=== PATIENT | female | born 1940 | race Caucasian/White ===

== ENCOUNTER → 2016-05-13 | Outpatient (CLI) | payer BC ==
[~2016-05-13] MED LIST: ALEN1TAB21 PO; AMLO-110 PO; AMLO-114 PO; ATEN-173 PO; ATEN25TA PO; ATEN50TA PO; ATEN50TA8 PO; CALC-342 PO; CHOL1TAB63 PO; CMD/25 PO; CMD5 PO; CYAN1CAP3 PO; DOCU1TAB6 PO; FSM35 PO; GEMF600T3 PO; GLC5 PO; HYDR25TA5 PO; ISOS30TA35 PO; JNV25 PO; LDDP5 TD; LOSA1TAB PO; MRLP17 PO; MULT-506 PO; NTRGSL/4 UT; OXYC-57 PO; PSYL48.59 PO; SIMV20TA2 PO; SULF800T23 PO; SYMIN160 INH; TNR50 PO; TRAMTAB5 PO; TRIM100T20 PO; WARF-246 PO; ZOLP5TAB6 PO
[2016-05-13 12:45] LABS: ESTIMATED AVERAGE GLUCOSE 131 mg/dl; HA1C FLAG Normal (Normal)
== END | disposition home or self-care (01) ==
LOC: C.LABBFT 08:42
PROVIDERS: ATTEND Internal Medicine
DX: E11.9 Type 2 diabetes mellitus without complications (principal)

== ENCOUNTER → 2016-05-22 | Outpatient (CLI) | payer BC ==
--- NOTE | 2016-05-22 15:48 | DIAGNOSTIC IMAGING REPORT ---
CHEST 2 VIEWS ROUTINE CLINICAL HISTORY: R06.02 Shortness of [id number] dyspnea COMPARISON STUDY: 08/27/2013 FINDINGS: Mild cardiomegaly. Lungs are clear. Diaphragms smooth. Minimal chronic pleural reactive changes left base. IMPRESSION: Mild stable cardiomegaly. Electronically signed by: Gumaro Medina M.D. 05/22/2016 3:47 PM Dictated Date/Time: 05/22/2016 3:45 PM
[2016-05-22 16:47] LABS: BASO % 0.6 %; BASO ABS # 0.05 K/uL (0-0.2); COMPLETE YES; EOS % 5.4 %; HEMATOCRIT 34.5 % (37-47); LYMPH % 15.8 %; LYMPH ABS # 1.36 K/uL (1.2-3.4); MEAN CELL VOLUME 86.3 fL (80-100); MEAN CORPUSCULAR HGB CONC 34.8 g/dl (32-36); MEAN PLATELET VOLUME 10.3 fL (7.4-10.4); MONO % 12.4 %; NEUT % 64.8 %; PLATELET COUNT 306 K/uL (130-400); WHITE BLOOD COUNT 8.63 K/uL (4.8-10.8)
[2016-05-22 17:05] LABS: ALT/SGPT 12 U/L (12-78); BLOOD UREA NITROGEN 34 mg/dl (7-18); CALCIUM 9.8 mg/dl (8.5-10.1); CARBON DIOXIDE 25 mmol/L (21-32); CHLORIDE 99 mmol/L (98-107); GLUCOSE 94 mg/dl (70-99); POTASSIUM 4.1 mmol/L (3.5-5.1); SODIUM 136 mmol/L (136-145)
[2016-05-22 17:15] LABS: ALB/GLOB RATIO 0.7 (0.9-2); ALKALINE PHOSPHATASE 65 U/L (45-117); AST/SGOT 14 U/L (15-37); THYROID STIMULATING HORMONE 0.551 uIu/ml (0.300-4.500)
== END | disposition home or self-care (01) ==
LOC: C.RAD1850 15:19
PROVIDERS: ATTEND Internal Medicine
DX: R06.02 Shortness of breath (principal); I51.7 Cardiomegaly

== ENCOUNTER 2016-05-30 10:16 | Inpatient (IN) | payer BC, OTHER ==
[~2016-05-30] VITALS: Ht 167.6 cm; Wt 88.5 kg
[~2016-05-30 10:16] MED LIST changes: -ALEN1TAB21 PO; -AMLO-114 PO; -ATEN-173 PO; -ATEN25TA PO; -ATEN50TA PO; -ATEN50TA8 PO; -CHOL1TAB63 PO; -CYAN1CAP3 PO; -DOCU1TAB6 PO; -JNV25 PO; -LDDP5 TD; -LOSA1TAB PO; -MRLP17 PO; -SULF800T23 PO; -SYMIN160 INH; -TRAMTAB5 PO; -TRIM100T20 PO; -WARF-246 PO
[2016-05-30] MEDS ORDERED: WARF-246 PO (10:40)
[2016-05-30] MEDS ORDERED: ALEN1TAB21 PO (10:40)
[2016-05-30 11:04] LABS: BASO % 0.5 %; BASO ABS # 0.04 K/uL (0-0.2); COMPLETE YES; EOS % 6.7 %; LYMPH % 21.7 %; LYMPH ABS # 1.87 K/uL (1.2-3.4); MEAN CELL VOLUME 85.5 fL (80-100); MEAN CORPUSCULAR HEMOGLOBIN 29.7 pg (25-34); MEAN CORPUSCULAR HGB CONC 34.7 g/dl (32-36); MEAN PLATELET VOLUME 9.8 fL (7.4-10.4); MONO % 9.2 %; NEUT % 60.9 %; PLATELET COUNT 331 K/uL (130-400); RED BLOOD COUNT 4.21 M/uL (4.2-5.4); WHITE BLOOD COUNT 8.62 K/uL (4.8-10.8)
[2016-05-30 11:15] LABS: ALT/SGPT 13 U/L (12-78); AST/SGOT 13 U/L (15-37); BLOOD UREA NITROGEN 28 mg/dl (7-18); BUN/CREATININE RATIO 17.6 (10-20); CALCIUM 9.3 mg/dl (8.5-10.1); CARBON DIOXIDE 24 mmol/L (21-32); CHLORIDE 100 mmol/L (98-107); GLUCOSE 98 mg/dl (70-99); POTASSIUM 4.1 mmol/L (3.5-5.1); SODIUM 134 mmol/L (136-145)
[2016-05-30 11:20] LABS: ALB/GLOB RATIO 0.6 (0.9-2); ALKALINE PHOSPHATASE 64 U/L (45-117); CKMB/CK RATIO 3.3 (0-3.0); INR 3.1 (0.9-1.1); PARTIAL THROMBOPLASTIN RATIO 2.3
--- NOTE | 2016-05-30 11:30 | DIAGNOSTIC IMAGING REPORT ---
CHEST ONE VIEW PORTABLE CLINICAL HISTORY: EVALUATE RESPIRATORY DISTRESS.DYSPNEA COMPARISON STUDY: 05/22/2016 FINDINGS: The cardiac and mediastinal contours are normal. There is no evidence of focal pulmonary consolidation. There is no evidence of failure. No pleural effusions are visualized.[ IMPRESSION: No active disease in the chest. Electronically signed by: Eric Gonzalez M.D. 05/30/2016 11:29 AM Dictated Date/Time: 05/30/2016 11:28 AM
[2016-05-30 11:58] LABS: MANUAL MICROSCOPIC REQUIRED? NO; REVIEW REQ? NO; URINE APPEARANCE CLEAR (CLEAR); URINE BILIRUBIN NEG (NEG); URINE COLOR YELLOW; URINE EPITHELIAL CELL AUTO >30 /lpf (0-5); URINE NITRITE NEG (NEG); URINE SPECIFIC GRAVITY 1.011 (1.000-1.030); UROBILINOGEN NEG (NEG)
[2016-05-30] MEDS ORDERED: FUROSEMIDE INJ 40 MG in SYRINGE 0 ML IV STA (15:03)
[2016-05-30] MEDS ORDERED: ACETAMINOPHEN 325 MG TAB PO PRN (15:15)
[2016-05-30] MEDS ORDERED: NITROGLYCERIN 0.4 MG SL PER TAB CHARGE SL PRN (15:15)
[2016-05-30] MEDS ORDERED: OXYCODONE/ACETAMINOPHEN 5-325 TAB PO PRN (15:15)
[2016-05-30] MEDS ORDERED: ONDANSETRON INJ 2 MG/ML 2 ML VIAL IV PRN (15:15)
[2016-05-30] MEDS ORDERED: NITROGLYCERIN 0.4 MG SL PER TAB CHARGE UT SCH (15:15)
[2016-05-30] MEDS ORDERED: ZOLPIDEM TARTRATE 5 MG TAB PO PRN (15:15)
[2016-05-30] MEDS ORDERED: GLUCOSE 10 TABS/TUBE PO PRN (15:15)
[2016-05-30] MEDS ORDERED: GLUCAGON FOR INJ 1 MG VIAL SQ PRN (15:15)
[2016-05-30] MEDS ORDERED: POLYETHYLENE (MIRALAX) 17 GM PACK PO PRN (15:15)
[2016-05-30] MEDS ORDERED: DEXTROSE 50% 50 ML SYR IV PRN (15:15)
[2016-05-30] MEDS ORDERED: GLUCOSE 40% GEL 15 GM TUBE PO PRN (15:15)
[2016-05-30] MEDS ORDERED: FUROSEMIDE 40 MG/4 ML VIAL IV STA (15:42)
--- NOTE | 2016-05-30 15:49 | History and Physical ---
History & Physical Date & Time of Service: May 30, 2016 at 15:17 Chief Complaint: Extreme Sob Primary Care Physician: Dagoberto Headley M.D. History of Present Illness Source: patient, family This is a 76 yo F with PMHx of atrial fibrillation on coumadin, HTN, hyperlipidemia, CAD, hypotension, lower back pain, lumbar disk herniation, who presents with worsening shortness of breath for the past 3-4 days. Her son is present at bedside. Pt reports she has been dyspneic for the past few months with ADLs and has been seen by her drapery counselor, Dr. Marcos for this complaint as outpt. She was recently seen Dr. Marcos on 05/22/16- there she was recommended to wear a Holter monitor for 2 weeks, but reports it had just shipped to her house and has not put it on yet. Pt admits that today has felt her heart racing on exertion and had some nausea with exertion where she needs to sit back down. Reports chronically sleeping with two pillows to elevate her when she sleeps, but that she has felt more short of breath with this in past 3-4 days as well. Pt denies wearing supplemental oxygen. Normally functions independently without walking assistance, lives alone, with minimal support needed from family. She also denies chest pain, pressure, tightness, cough, respiratory illness, sick contacts, lung problems such as asthma or COPD. She has not taken her daily medications yet today. In the ED pt has had BPs ranging from 160-170s, and while at beside reaches SBP =204. She is in afib, HR in low 90s. Trop-I is negative. EXW=[id number]. CBC is WNL. CXR completed without pleural effusions or consolidations. Past Medical/Surgical History Medical Problems: (1) CAD (coronary artery disease) Status: Chronic (2) DM (diabetes mellitus) Status: Chronic (3) DM (diabetes mellitus) Status: Chronic (4) HTN (hypertension) Status: Chronic (5) HTN (hypertension) Status: Chronic (6) HTN (hypertension) Status: Chronic (7) Hyperlipidemia Status: Chronic (8) Hypertension Status: Chronic (9) Intractable back pain Status: Resolved (10) Intractable back pain Status: Resolved (11) UTI (urinary tract infection) Status: Resolved Family History Cancer FH: pneumonia Heart disease Social History Smoking Status: Never Smoker Smokeless Tobacco Use: No Alcohol Use: none Drug Use: none Marital Status: Housing status: lives alone Occupational Status: retired Immunizations History of Influenza Vaccine: Yes History of Tetanus Vaccine?: Yes History of Pneumococcal: Yes Pneumococcal Date: Dec 20, 2009 History of Hepatitis B Vaccine: Unknown Multi-Drug Resistant Organisms History of MDRO: No Allergies Coded Allergies: Chlorthalidone (Verified Allergy, Unknown, UNK, 10/16/13) Penicillins (Verified Allergy, Unknown, 08/26/12) Home Medications Scheduled Alendronate Sodium (Alendronate Sodium), 1 TAB PO WK Amlodipine (Norvasc), 5 MG PO DAILY Atenolol (Atenolol), 50 MG PO BID Calcium Carbonate-Vitamin D (Calcium 600+D), 1 TAB PO BID Gemfibrozil (Lopid), 600 MG PO BID Glipizide (Glipizide), 5 MG PO BID Hydrochlorothiazide (Hydrochlorothiazide), 25 MG PO DAILY Isosorbide Mononitrate Ext Rel (Imdur Ext Rel), 90 MG PO DAILY Multivitamin (Multivitamin), 1 TAB PO DAILY Nitroglycerin (Nitrostat), 0.4 MG UT PRN Psyllium (Metamucil), 1 DOSE PO HS Simvastatin (Zocor), 20 MG PO HS Warfarin Sod (Coumadin), 2.5 MG PO 4XWK Warfarin Sodium (Warfarin Sodium), 5 MG PO MWF Zolpidem Tartrate (Zolpidem Tartrate), 5 MG PO HS Scheduled PRN Oxycodone/Acetaminophen 5MG/325MG (Percocet 5MG/325MG), 1-2 TAB PO Q4H PRN for Pain Review of Systems Constitutional: No chills, No fever, No sweats Eyes: No problem reported ENT: No problem reported Respiratory: + dyspnea on exertion, + shortness of breath, No cough, No dyspnea at rest, No hemoptysis, No sputum, No wheezing Cardiovascular: No chest pain, No palpitations Abdomen: + nausea, No constipation, No diarrhea, No pain Musculoskeletal: No calf pain, No joint pain, No swelling Genitourinary - Female: No dysuria Neurologic: + balance problems (in past 3-4 days), No numbness/tingling, No weakness Psychiatric: No depression symptoms Endocrine: + fatigue Integumentary: No itch, No rash Allergic / Immunologic: No environmental allergies, No seasonal allergies Physical Exam Vital Signs Date Time Temp Pulse Resp B/P Pulse Ox O2 Delivery O2 Flow Rate FiO2 05/30/16 14:32 81 18 170/72 93 Room Air 05/30/16 14:19 93 20 172/71 93 Room Air 05/30/16 13:06 92 22 169/83 93 Room Air 05/30/16 13:05 90 Room Air 05/30/16 13:05 22 94 Room Air 05/30/16 12:10 88 18 161/71 96 Room Air 05/30/16 11:51 96 05/30/16 11:24 88 20 160/89 94 Room Air 05/30/16 10:56 96 Room Air 05/30/16 10:38 96 Room Air 05/30/16 10:18 37.0 97 18 150/88 96 Room Air General Appearance: WD/WN, no apparent distress, + obese Head: normocephalic, atraumatic Eyes: PERRL, EOMI ENT: hearing grossly normal, pharynx normal, + pertinent finding (MMM) Neck: supple, no JVD Respiratory/Chest: chest non-tender, no respiratory distress, no accessory muscle use, + pertinent finding (+ crackles in bilateral bases. On room air with sats= 93%. No wheezing or rhales. Good breath sounds in mid and upper sanchez.) Cardiovascular: no JVD, no murmur, + tachycardia (HR=mid 90s ), + irregularly irregular Abdomen/GI: normal bowel sounds, non tender Back: no CVA tenderness Extremities/Musculoskelatal: no calf tenderness, no pedal edema Neurologic/Psych: alert, normal mood/affect, oriented x 3 Skin: normal color, warm/dry Diagnostics Laboratory Results Results Past 24 Hours Test 05/30/16 10:27 05/30/16 10:30 05/30/16 11:42 Range/Units Bedside Glucose 107 70-90 mg/dl White Blood Count 8.62 4.8-10.8 K/uL Red Blood Count 4.21 4.2-5.4 M/uL Hemoglobin 12.5 12.0-16.0 g/dL Hematocrit 36.0 37-47 % Mean Corpuscular Volume 85.5 80-100 fL Mean Corpuscular Hemoglobin 29.7 25-34 pg Mean Corpuscular Hemoglobin Concent 34.7 32-36 g/dl Platelet Count 331 130-400 K/uL Mean Platelet Volume 9.8 7.4-10.4 fL Neutrophils (%) (Auto) 60.9 % Lymphocytes (%) (Auto) 21.7 % Monocytes (%) (Auto) 9.2 % Eosinophils (%) (Auto) 6.7 % Basophils (%) (Auto) 0.5 % Neutrophils # (Auto) 5.25 1.4-6.5 K/uL Lymphocytes # (Auto) 1.87 1.2-3.4 K/uL Monocytes # (Auto) 0.79 0.11-0.59 K/uL Eosinophils # (Auto) 0.58 0-0.5 K/uL Basophils # (Auto) 0.04 0-0.2 K/uL RDW Standard Deviation 42.0 36.4-46.3 fL RDW Coefficient of Variation 13.5 11.5-14.5 % Immature Granulocyte % (Auto) 1.0 % Immature Granulocyte # (Auto) 0.09 0.00-0.02 K/uL Prothrombin Time 35.0 9.0-12.0 SECONDS Prothromb Time International Ratio 3.1 0.9-1.1 Activated Partial Thromboplast Time 59.7 21.0-31.0 SECONDS Partial Thromboplastin Ratio 2.3 Sodium Level 134 136-145 mmol/L Potassium Level 4.1 3.5-5.1 mmol/L Chloride Level 100 98-107 mmol/L Carbon Dioxide Level 24 21-32 mmol/L Anion Gap 10.0 3-11 mmol/L Blood Urea Nitrogen 28 7-18 mg/dl Creatinine 1.60 0.60-1.20 mg/dl Est Creatinine Clear Calc Drug Dose 33.0 ml/min Estimated GFR () 35.4 Estimated GFR (Non- 30.5 BUN/Creatinine Ratio 17.6 10-20 Random Glucose 98 70-99 mg/dl Calcium Level 9.3 8.5-10.1 mg/dl Total Bilirubin 0.5 0.2-1 mg/dl Aspartate Amino Transf (AST/SGOT) 13 15-37 U/L Alanine Aminotransferase (ALT/SGPT) 13 12-78 U/L Alkaline Phosphatase 64 45-117 U/L Total Creatine Kinase 33 26-192 U/L Creatine Kinase MB 1.1 0.5-3.6 ng/ml Creatine Kinase MB Ratio 3.3 0-3.0 Troponin I < 0.015 0-0.045 ng/ml Pro-B-Type Natriuretic Peptide 4489 0-1800 pg/ml Total Protein 7.8 6.4-8.2 gm/dl Albumin 3.0 3.4-5.0 gm/dl Globulin 4.8 2.5-4.0 gm/dl Albumin/Globulin Ratio 0.6 0.9-2 Urine Color YELLOW Urine Appearance CLEAR CLEAR Urine pH 6.0 4.5-7.5 Urine Specific [place] 1.011 1.000-1.030 Urine Protein 1+ NEG Urine Glucose (UA) NEG NEG Urine Ketones NEG NEG Urine Occult Blood TRACE NEG Urine Nitrite NEG NEG Urine Bilirubin NEG NEG Urine Urobilinogen NEG NEG Urine Leukocyte Esterase MODERATE NEG Urine WBC (Auto) 5-10 0-5 /hpf Urine RBC (Auto) 5-10 0-4 /hpf Urine Hyaline Casts (Auto) 0 0-5 /lpf Urine Epithelial Cells (Auto) >30 0-5 /lpf Urine Bacteria (Auto) NEG NEG Diagnostic Radiology CHEST ONE VIEW PORTABLE CLINICAL HISTORY: EVALUATE RESPIRATORY DISTRESS.DYSPNEA COMPARISON STUDY: 05/22/2016 FINDINGS: The cardiac and mediastinal contours are normal. There is no evidence of focal pulmonary consolidation. There is no evidence of failure. No pleural effusions are visualized.[ IMPRESSION: No active disease in the chest. Electronically signed by: Eric Gonzalez M.D. 05/30/2016 11:29 AM Dictated Date/Time: 05/30/2016 11:28 AM The status of this report is Signed. CXR normal EKG Vent. rate 84 BPM UT interval * ms QRS duration 106 ms QT/QTc 364/430 ms P-R-T axes * -46 95 Atrial fibrillation, HR=84, non specific T wave abnormality in anterolateral leads. Impression Assessment and Plan 76 yo F with PMHx of atrial fibrillation on coumadin, HTN, hyperlipidemia, CAD, hypotension, lower back pain, lumbar disk herniation, who presents with worsening shortness of breath for the past 3-4 days. Shortness of breath R/o new onset CHF - Admit to tele - BNP elevated at 4489, initial troponin neg - CXR without signs of pleural effusions although + crackles in bilateral bases on exam - Will administer lasix 40 mg once now - Echo and dopplers BLE to r/o DVT with hx of afib ordered - Cardiology consulted - Dr. Hemant silva's the pt as an outpatient- at last visit on was ordering a holter monitor x 2 week for the pt. Was considering tachy-joe syndrome - Pt has not received daily antihypertensives today so will give now: Losartan 25 mg daily , Imdur 30 mg daily - Hold HCTZ while diuresing with lasix (normally takes 25 mg daily) - Will need PT/OT consults tomorrow - Outpatient records indicate asthma and COPD although pt is unaware of these diagnoses - she has never had formal PFTs performed to her knowledge. She is using symbicort daily. Afib, chronic - Continue anticoagulation with coumadin 5 mg -- and 2.5 mg Q-Yt-Bsw-Fri - INR therapeutic at 3.1, follow coags - ?Holter monitor per cardiology as above DM II - Hold glipizide 5 mg BID for now - ISS with accuchecks ACHS Hyperlipidemia - Cont simvastatin 20 mg daily CKD stage III - Cr. 1.6 and is at baseline, follow with PRP daily Hypothyroidism - Noted in outpatient notes but not on any medication - Checking TSH DVT ppx: coumadin, SCDs CODE STATUS: FULL CODE Level of Care Telemetry Advanced Directives Existing Advance Directive: No Existing Living Will: No Existing Power of Pattern Hanger: No Existing Health Care Proxy: No Resuscitation Status FULL RESUSCITATION VTE Prophylaxis VTE Risk Assessment Done? Y/N: Yes Risk Level: Very Low Given or contraindicated: Other Anticoagulation, SCD's Reviewed: Pt Seen/Exam by Me, RN Notes, HO Notes, Prior Records, Labs, RAD History I agree with PA H&P with some modifications as below 76 yo F with PMHx of atrial fibrillation on coumadin, HTN, hyperlipidemia, CAD, hypotension, lower back pain, lumbar disk herniation, who presents with worsening shortness of breath for the past 3-4 days. Constitutional: denies: chills Respiratory: positive: short of breath, negative: cough Cardiovascular: denies chest pain Gastrointestinal/Abdominal: negative: abdominal pain Genitourinary: negative discharge Musculoskeletal: negative: back pain Neurological/Psych: negative: anxiety Hematologic/Lymphatic: negative: anemia General Appearance: WD/WN, no apparent distress Eye Exam: bilateral eye normal inspection Ears, Nose, Throat: hearing grossly normal Neck: non-tender Respiratory: chest non-tender, crackles Cardiovascular: normal peripheral pulses Gastrointestinal: normal bowel sounds Extremities: normal inspection Neurologic/Psychiatric: alert Skin Characteristics: normal color Assessment/Plan 76 yo F with PMHx of atrial fibrillation on coumadin, HTN, hyperlipidemia, CAD, hypotension, lower back pain, lumbar disk herniation, who presents with worsening shortness of breath for the past 3-4 days. Shortness of breath R/o new onset CHF tele BNP elevated at 4489, initial troponin neg IV lasix 40 mg once now check Echo and dopplers BLE to r/o DVT with hx of afib ordered Cardiology consulted - Dr. Hemant silva's the pt as an outpatient- at last visit on was ordering a holter monitor x 2 week for the pt. Was considering tachy-joe syndrome HTN restart Losartan 25 mg daily , Imdur 30 mg daily Hold HCTZ while diuresing with lasix (normally takes 25 mg daily) Will need PT/OT consults tomorrow Outpatient records indicate asthma and COPD although pt is unaware of these diagnoses - she has never had formal PFTs performed to her knowledge. She is using symbicort daily. Afib, chronic Continue anticoagulation with coumadin 5 mg - and 2.5 mg W-Ez-Onn-Sun INR therapeutic at 3.1, follow coags DM II Hold glipizide 5 mg BID for now ISS with accuchecks ACHS Hyperlipidemia Cont simvastatin 20 mg daily CKD stage III Cr. 1.6 and is at baseline, follow with PRP daily Hypothyroidism Noted in outpatient notes but not on any medication Checking TSH DVT proph: coumadin, SCDs CODE STATUS: FULL CODE time spent 50 min case discussed with [place] Gonzalez
[2016-05-30] MEDS: INSULIN ASPART 100 UNITS/ML 3 ML PEN SC SCH ×2 (16:30→20:56)
--- NOTE | 2016-05-30 16:37 | EMERGENCY ROOM VISIT NOTE ---
History Report prepared by Diego: Sharmaine Bello Under the Supervision of: Dr. Patrick Brooks M.D. First contact with patient: 10:53 Chief Complaint: SHORTNESS OF BREATH Stated Complaint: EXTREME SOB Nursing Triage Summary: pt reports sob this am .has been under eval for pacer. History of Present Illness The patient is a 76 year old female who presents to the Emergency Room with complaints of severe and worsening shortness of breath starting about a week and a half ago. She has worsening symptoms with lying down flat and with even a small amount of exertion. She has symptom relief with resting. Last night, the patient had some back pain. She currently denies any back pain. She reports a loss of appetite. Pt denies recent weight gain, LOC, headache, fevers, chills, diaphoresis, visual changes, neck pain, chest pain, nausea, vomiting, abdominal pain, melena, hematochezia, urinary symptoms, numbness, weakness, lymphadenopathy, rash, or other complaints. The patient has a history of A Fib. Source of History: patient Onset: about a week and a half ago Position: other (global) Symptom Intensity: severe Quality: other (shortness of breath) Timing: worsening Modifying Factors (Worsening): exertion, other (lying down flat) Modifying Factors (Relieving): rest Review of Systems See HPI for pertinent positives and negatives. A total of ten systems were reviewed and were otherwise negative. Past Medical & Surgical Medical Problems: (1) CAD (coronary artery disease) (2) DM (diabetes mellitus) (3) DM (diabetes mellitus) (4) HTN (hypertension) (5) HTN (hypertension) (6) HTN (hypertension) (7) Hyperlipidemia (8) Hypertension (9) Intractable back pain (10) Intractable back pain (11) Shortness of breath (12) UTI (urinary tract infection) Family History Cancer FH: pneumonia Heart disease Social History Smoking Status: Never Smoker Marital Status: Occupation Status: retired Current/Historical Medications Scheduled Alendronate Sodium (Alendronate Sodium), 1 TAB PO WK Amlodipine (Norvasc), 5 MG PO DAILY Atenolol (Atenolol), 50 MG PO BID Calcium Carbonate-Vitamin D (Calcium 600+D), 1 TAB PO BID Gemfibrozil (Lopid), 600 MG PO BID Glipizide (Glipizide), 5 MG PO BID Hydrochlorothiazide (Hydrochlorothiazide), 25 MG PO DAILY Isosorbide Mononitrate Ext Rel (Imdur Ext Rel), 90 MG PO DAILY Multivitamin (Multivitamin), 1 TAB PO DAILY Nitroglycerin (Nitrostat), 0.4 MG UT PRN Psyllium (Metamucil), 1 DOSE PO HS Simvastatin (Zocor), 20 MG PO HS Warfarin Sod (Coumadin), 2.5 MG PO 4XWK Warfarin Sodium (Warfarin Sodium), 5 MG PO MWF Zolpidem Tartrate (Zolpidem Tartrate), 5 MG PO HS Scheduled PRN Oxycodone/Acetaminophen 5MG/325MG (Percocet 5MG/325MG), 1-2 TAB PO Q4H PRN for Pain Allergies Coded Allergies: Chlorthalidone (Verified Allergy, Unknown, UNK, 10/16/13) Penicillins (Verified Allergy, Unknown, 08/26/12) Physical Exam Vital Signs Date Time Temp Pulse Resp B/P Pulse Ox O2 Delivery O2 Flow Rate FiO2 05/30/16 14:32 81 18 170/72 93 Room Air 05/30/16 14:19 93 20 172/71 93 Room Air 05/30/16 13:06 92 22 169/83 93 Room Air 05/30/16 13:05 90 Room Air 05/30/16 13:05 22 94 Room Air 05/30/16 12:10 88 18 161/71 96 Room Air 05/30/16 11:51 96 05/30/16 11:24 88 20 160/89 94 Room Air 05/30/16 10:56 96 Room Air 05/30/16 10:38 96 Room Air 05/30/16 10:18 37.0 97 18 150/88 96 Room Air Physical Exam GENERAL: Awake, alert, tired-appearing, in no distress HENT: Normocephalic, atraumatic. Oropharynx unremarkable. EYES: Normal conjunctiva. Sclera non-icteric. NECK: Supple. No nuchal rigidity. FROM. No JVD. RESPIRATORY: Clear to auscultation. CARDIAC: Regular rate, normal rhythm. Extremities warm and well perfused. Pulses equal. ABDOMEN: Soft, non-distended. No tenderness to palpation. No rebound or guarding. No masses. RECTAL: Deferred. MUSCULOSKELETAL: Chest examination reveals no tenderness. The back is symmetrical on inspection without obvious abnormality. There is no CVA tenderness to palpation. No joint edema. LOWER EXTREMITIES: Calves are equal size bilaterally and non-tender. No edema. No discoloration. NEURO: Normal sensorium. No sensory or motor deficits noted. SKIN: No rash or jaundice noted. Medical Decision & Procedures ER Provider Diagnostic Interpretation: X ray results as stated below per my interpretation and radiologist interpretation. CHEST ONE VIEW PORTABLE CLINICAL HISTORY: EVALUATE RESPIRATORY DISTRESS.DYSPNEA COMPARISON STUDY: 05/22/2016 FINDINGS: The cardiac and mediastinal contours are normal. There is no evidence of focal pulmonary consolidation. There is no evidence of failure. No pleural effusions are visualized.[ IMPRESSION: No active disease in the chest. Electronically signed by: Eric Gonzalez M.D. 05/30/2016 11:29 AM Dictated Date/Time: 05/30/2016 11:28 AM Laboratory Results 05/30/16 10:30 Red Blood Count 4.21, Mean Corpuscular Volume 85.5, Mean Corpuscular Hemoglobin 29.7, Mean Corpuscular Hemoglobin Concent 34.7, Mean Platelet Volume 9.8, Neutrophils (%) (Auto) 60.9, Lymphocytes (%) (Auto) 21.7, Monocytes (%) (Auto) 9.2, Eosinophils (%) (Auto) 6.7, Basophils (%) (Auto) 0.5, Neutrophils # (Auto) 5.25, Lymphocytes # (Auto) 1.87, Monocytes # (Auto) 0.79, Eosinophils # (Auto) 0.58, Basophils # (Auto) 0.04 05/30/16 10:30 Test 05/30/16 10:27 05/30/16 10:30 05/30/16 11:42 Bedside Glucose 107 mg/dl (70-90) White Blood Count 8.62 K/uL (4.8-10.8) Red Blood Count 4.21 M/uL (4.2-5.4) Hemoglobin 12.5 g/dL (12.0-16.0) Hematocrit 36.0 % (37-47) Mean Corpuscular Volume 85.5 fL (80-100) Mean Corpuscular Hemoglobin 29.7 pg (25-34) Mean Corpuscular Hemoglobin Concent 34.7 g/dl (32-36) Platelet Count 331 K/uL (130-400) Mean Platelet Volume 9.8 fL (7.4-10.4) Neutrophils (%) (Auto) 60.9 % Lymphocytes (%) (Auto) 21.7 % Monocytes (%) (Auto) 9.2 % Eosinophils (%) (Auto) 6.7 % Basophils (%) (Auto) 0.5 % Neutrophils # (Auto) 5.25 K/uL (1.4-6.5) Lymphocytes # (Auto) 1.87 K/uL (1.2-3.4) Monocytes # (Auto) 0.79 K/uL (0.11-0.59) Eosinophils # (Auto) 0.58 K/uL (0-0.5) Basophils # (Auto) 0.04 K/uL (0-0.2) RDW Standard Deviation 42.0 fL (36.4-46.3) RDW Coefficient of Variation 13.5 % (11.5-14.5) Immature Granulocyte % (Auto) 1.0 % Immature Granulocyte # (Auto) 0.09 K/uL (0.00-0.02) Prothrombin Time 35.0 SECONDS (9.0-12.0) Prothromb Time International Ratio 3.1 (0.9-1.1) Activated Partial Thromboplast Time 59.7 SECONDS (21.0-31.0) Partial Thromboplastin Ratio 2.3 Anion Gap 10.0 mmol/L (3-11) Est Creatinine Clear Calc Drug Dose 33.0 ml/min Estimated GFR () 35.4 Estimated GFR (Non- 30.5 BUN/Creatinine Ratio 17.6 (10-20) Calcium Level 9.3 mg/dl (8.5-10.1) Total Bilirubin 0.5 mg/dl (0.2-1) Aspartate Amino Transf (AST/SGOT) 13 U/L (15-37) Alanine Aminotransferase (ALT/SGPT) 13 U/L (12-78) Alkaline Phosphatase 64 U/L (45-117) Total Creatine Kinase 33 U/L (26-192) Creatine Kinase MB 1.1 ng/ml (0.5-3.6) Creatine Kinase MB Ratio 3.3 (0-3.0) Troponin I < 0.015 ng/ml (0-0.045) Pro-B-Type Natriuretic Peptide 4489 pg/ml (0-1800) Total Protein 7.8 gm/dl (6.4-8.2) Albumin 3.0 gm/dl (3.4-5.0) Globulin 4.8 gm/dl (2.5-4.0) Albumin/Globulin Ratio 0.6 (0.9-2) Thyroid Stimulating Hormone (TSH) 0.413 uIu/ml (0.300-4.500) Urine Color YELLOW Urine Appearance CLEAR (CLEAR) Urine pH 6.0 (4.5-7.5) Urine Specific [place] 1.011 (1.000-1.030) Urine Protein 1+ (NEG) Urine Glucose (UA) NEG (NEG) Urine Ketones NEG (NEG) Urine Occult Blood TRACE (NEG) Urine Nitrite NEG (NEG) Urine Bilirubin NEG (NEG) Urine Urobilinogen NEG (NEG) Urine Leukocyte Esterase MODERATE (NEG) Urine WBC (Auto) 5-10 /hpf (0-5) Urine RBC (Auto) 5-10 /hpf (0-4) Urine Hyaline Casts (Auto) 0 /lpf (0-5) Urine Epithelial Cells (Auto) >30 /lpf (0-5) Urine Bacteria (Auto) NEG (NEG) Laboratory results reviewed by me ECG Indication: SOB/dyspnea Rate (beats per minute): 84 Rhythm: atrial fibrillation Findings: nonspecific-ST abn, other (left anterior fascicular block; septal infarct) Comparison ECG Date: October 16, 2013 Change: no significant change ED Course 1053: The patient was evaluated in room B07. A complete history and physical exam was performed. 1259: I reevaluated the patient who is tired but feeling better. 1415: Upon reexamination, the patient was resting comfortably. I discussed the test results and treatment plan with her. The patient will be evaluated for further management. 1425: I discussed the patient's case with Dr. Melvin, from [facility]. Medical Decision Triage Nursing notes reviewed. The patient's presentation and history were concerning for dyspnea on exertion. Etiologies such as pneumonia, COPD, reactive airway disease, CHF, cardiac ischemia, pulmonary embolism, pneumothorax, musculoskeletal, infections, gastrointestinal, as well as others were entertained. The patient was evaluated. She had A. fib was rate controlled. She was tired. Her history was concerning for dyspnea with minimal exertion. The patient has no ischemic change on ECG. Blood work was performed. CBC was unremarkable. INR was therapeutic at 3.1. Urinalysis was unremarkable. The patient has no urinary symptoms. Creatinine was minimally elevated at 1.6. Cardiac markers were negative. BNP was markedly elevated concerning for CHF. Given this the patient underwent name Maite pulse ox. With minimal distance her saturation did decrease to 90%. She was symptomatic. The patient will need further evaluation and management in the hospital. I did discuss the case with internal medicine. The patient was evaluated for further treatment for new onset CHF. The chart was completed utilizing [employer] Speech voice recognition software. Grammatical errors, random word insertions, pronoun errors, and incomplete sentences are an occasional consequence of this system due to software limitations, ambient noise, and hardware issues. Any formal questions or concerns about the content, text, or information contained within the body of this dictation should be directly addressed to the physician for clarification. Consults Time Called: 1422 Consulting Physician: Dr. Melvin, from [facility] Returned Call: [phone] I discussed the patient's case with Dr. Melvin, from [facility]. Impression Primary Impression: Dyspnea on exertion Additional Impression: CHF (congestive heart failure) Scribe Attestation The scribe's documentation has been prepared under my direction and personally reviewed by me in its entirety. I confirm that the note above accurately reflects all work, treatment, procedures, and medical decision making performed by me. Departure Information Dispostion Being Evaluated By Hospitalist Referrals Dagoberto Headley M.D. (PCP) Patient Instructions [facility] Problem Qualifiers
[2016-05-30 17:28] VITALS: BP 169/85; PULSE 86; TEMP 36.8; O2SAT 93; BMI 32.6
[2016-05-30] MEDS: AMLODIPINE BESYLATE 5 MG TAB PO SCH (19:29)
[2016-05-30] MEDS: ISOSORBIDE MONONITRATE 30 MG TABCR PO SCH (19:30)
[2016-05-30 19:52] VITALS: BP 159/66; TEMP 37.7; O2SAT 97
[2016-05-30] MEDS: GEMFIBROZIL 600 MG TAB PO SCH (20:55)
[2016-05-30] MEDS ORDERED: SIMVASTATIN 20 MG TAB PO SCH (21:00)
--- NOTE | 2016-05-30 21:36 | DIAGNOSTIC IMAGING REPORT ---
ULTRASOUND BILATERAL LOWER EXTREMITY VENOUS CLINICAL HISTORY: Dyspnea. Clinical concern for deep venous thrombosis. COMPARISON STUDY: Bilateral lower extremity venous ultrasound dated 11/09/2014. TECHNIQUE: Real-time, grayscale, and color Doppler sonography of the deep veins of the right and left lower extremity was performed from the inguinal crease to the calf. Compression and augmentation were utilized. FINDINGS: There is no sonographic evidence of deep venous thrombosis identified in the right or left lower extremity. The common femoral, superficial femoral, and popliteal veins are patent and normally compressible bilaterally. The greater saphenous vein and the profunda femoris vein at the junction with the common femoral vein are clear in both legs. The visualized calf veins are patent bilaterally. IMPRESSION: There is no sonographic evidence of deep venous thrombosis identified in the right or left lower extremity. Electronically signed by: Dariusz Jensen M.D. 05/30/2016 9:35 PM Dictated Date/Time: 05/30/2016 9:35 PM
[2016-05-30 23:24] VITALS: BP 137/59; PULSE 68; TEMP 37.3; O2SAT 91
[2016-05-31 04:24] VITALS: BP 139/68; PULSE 55; TEMP 36.8; O2SAT 95
[2016-05-31 05:53] LABS: BASO % 0.5 %; BASO ABS # 0.04 K/uL (0-0.2); COMPLETE YES; HEMATOCRIT 34.5 % (37-47); IG% 1.2 %; LYMPH ABS # 1.66 K/uL (1.2-3.4); MEAN CELL VOLUME 87.6 fL (80-100); MEAN CORPUSCULAR HEMOGLOBIN 30.7 pg (25-34); MEAN CORPUSCULAR HGB CONC 35.1 g/dl (32-36); MEAN PLATELET VOLUME 9.8 fL (7.4-10.4); MONO % 9.4 %; NEUT % 58.9 %; PLATELET COUNT 312 K/uL (130-400); RED BLOOD COUNT 3.94 M/uL (4.2-5.4); WHITE BLOOD COUNT 7.54 K/uL (4.8-10.8)
[2016-05-31 06:10] LABS: INR 3.6 (0.9-1.1)
[2016-05-31 06:22] LABS: BUN/CREATININE RATIO 18.8 (10-20); CALCIUM 8.6 mg/dl (8.5-10.1); CREATININE 1.9 mg/dl (0.60-1.20); MAGNESIUM 2.3 mg/dl (1.8-2.4); POTASSIUM 4.2 mmol/L (3.5-5.1)
[2016-05-31 06:25] LABS: CHOLESTEROL/HDL RATIO 3.3; PHOSPHORUS 3.9 mg/dl (2.5-4.9)
[2016-05-31 07:34] VITALS: BP 162/58; PULSE 66; TEMP 36.7; O2SAT 99
[2016-05-31 08:10] VITALS: O2SAT 99
[2016-05-31] MEDS: INSULIN ASPART 100 UNITS/ML 3 ML PEN SC SCH ×2 (08:19→12:15)
[2016-05-31] MEDS ORDERED: MULTIVITAMIN TAB PO SCH (09:00)
[2016-05-31] MEDS: ISOSORBIDE MONONITRATE 30 MG TABCR PO SCH (09:06)
[2016-05-31] MEDS: GEMFIBROZIL 600 MG TAB PO SCH (09:06)
[2016-05-31] MEDS: AMLODIPINE BESYLATE 5 MG TAB PO SCH (09:07)
[2016-05-31] MEDS ORDERED: PERFLUTREN LIPID MICROSPHERE (DEFINITY) IV ONE (09:11)
[2016-05-31 11:20] VITALS: BP 129/68; PULSE 49; TEMP 36.7; O2SAT 95
--- NOTE | 2016-05-31 11:52 | Cardiology Consultation ---
Cardiology Consultation Date of Consultation: May 31, 2016. Requesting Physician: Em Gonzalez PA-C Attending Physician: Dr. Marcos Reason for Consultation: Shortness of breath, atrial fibrillation Pt evaluation today including: conversation w/ patient, conversation w/ family , physical exam, chart review, lab review, review of studies, review of inpatient medication list, conversation w/ attending History of Present Illness Mrs. Zhu is a 76-year-old female with a past medical history significant for permanent atrial fibrillation, coronary artery disease ([place] 1992), hypertension, hypercholesterolemia, type 2 diabetes mellitus, chronic kidney disease, and asthma who presented to the ED yesterday with complaints of increased shortness of breath. Her most recent cardiac history began when she was seen in clinic by Dr. Marcos on 02/19/2016. At that time she noted increased dyspnea on exertion. She was bradycardic on exam, and it was surmised that the dyspnea she was experiencing was secondary to chronotropic incompetence. Her atenolol dose was subsequently decreased from 50 mg twice daily to 50 mg daily. She was then seen in follow-up by myself on 03/11/2016. At that time, she noted an improvement in her fatigue as well as her exertional dyspnea, but she continued to experience exertional dyspnea. She continued to be bradycardic on exam. Her Atenolol was further decreased to 25 mg daily, and a 24 hour Holter monitor was ordered. The monitor showed atrial fibrillation with slow ventricular response and long pauses up to 4 seconds. She was instructed to discontinue the beta aman altogether, and a repeat Holter monitor in late March again showed atrial fibrillation with heart rates varying from 30 to 113 bpm. There were 13 pauses greater than 2 seconds with the longest pause 3.1 seconds in length. A stress echocardiogram was also performed in late March which was negative for myocardial ischemia at 82% MPHR. She was last seen in clinic by Dr. Marcos on 05/22/16, and at that time, she was ordered a long-term event monitor to hopefully correlate her exertional dyspnea with a bradycardic ventricular response. After the clinic visit with Dr. Marcos, the patient's exertional dyspnea continued to worsen. She began to feel short of breath with just walking across the room. She also noted shortness of breath with initially lying down, but she was then able to sleep throughout the night. She continued to sleep with 2 pillows. She did not have any lower extremity edema. When her symptoms, continued to worsen, she presented to the ED yesterday for further evaluation. ECG showed atrial fibrillation with a ventricular response rate of 84 bpm. No acute ischemic changes were noted. CXR showed no active disease in the chest. BNP was elevated at 2289. She was given one dose of Lasix 40 mg IV. Her creatinine was 1.60 initially and alicia to 1.90 upon recheck. Patient seen at bedside this morning. Her son accompanies her in the room. She reports that her breathing has improved since admission, but she does not feel as though her breathing is back to normal. She noted an episode of "fullness" in her chest last evening that radiated into her back. It occurred while lying in bed and lasted 30 minutes before self resolving. She denies any other chest discomfort. She notes dizziness at times where she feels as though the room is spinning. This occurs with fast head movements and she has associated nausea. She denies syncope or presyncope. She denies palpitations, abnormal bleeding, or cerebrovascular symptoms. Review of Systems: As noted in HPI. All other ROS otherwise negative. Family History Cancer FH: pneumonia Heart disease Noncontributory given her own disease. Social History Smoking Status: Former Smoker History of Alcohol Use: No Former smoker, quit in 1997. She smoked up to 1 ppd x20 years. She denies alcohol or drug use. Review of Systems Respiratory: + see HPI Cardiac: + see HPI Allergies Coded Allergies: Chlorthalidone (Verified Allergy, Unknown, UNK, 10/16/13) Penicillins (Verified Allergy, Unknown, 08/26/12) Medications Current Inpatient Medications Medications (Trade) Dose Ordered Sig/Tayler Route Start Time Stop Time Status Last Admin Dose Admin Acetaminophen (Tylenol Tab) 650 mg Q4H PRN PO 05/30/16 15:15 06/29/16 15:14 Ondansetron HCl (Zofran Inj) 4 mg Q6H PRN IV 05/30/16 15:15 06/29/16 15:14 Nitroglycerin (Nitrostat Tab) 0.4 mg UD PRN SL 05/30/16 15:15 06/29/16 15:14 Polyethylene (Miralax Powder Packet) 17 gm DAILY PRN PO 05/30/16 15:15 06/29/16 15:14 Amlodipine Besylate (Norvasc Tab) 5 mg DAILY PO 05/30/16 15:15 06/29/16 15:14 05/31/16 09:07 5 MG Atenolol (Tenormin Tab) 50 mg BID PO 05/30/16 15:15 06/29/16 15:14 05/31/16 09:06 50 MG Gemfibrozil (Lopid Tab) 600 mg BID PO 05/30/16 21:00 06/29/16 20:59 05/31/16 09:06 600 MG Isosorbide Mononitrate (Imdur Ext Rel Tab) 90 mg DAILY PO 05/30/16 15:15 06/29/16 15:14 05/31/16 09:06 90 MG Multivitamins (Multivitamin Tab) 1 tab DAILY PO 05/31/16 09:00 06/30/16 08:59 05/31/16 09:06 1 TAB Oxycodone/ Acetaminophen (Percocet 5-325mg Tab) 1 tab Q4H PRN PO 05/30/16 15:15 06/13/16 15:14 Simvastatin (Zocor Tab) 20 mg HS PO 05/30/16 21:00 06/29/16 20:59 05/30/16 20:55 20 MG Warfarin Sodium (Coumadin Tab) 2.5 mg SuTuThSa@1600 PO 06/01/16 16:00 07/01/16 15:59 Warfarin Sodium (Coumadin Tab) 5 mg MoWeFr@1600 PO 05/31/16 16:00 06/30/16 15:59 Zolpidem Tartrate (Ambien Tab) 5 mg HS PRN PO 05/30/16 15:15 06/29/16 15:14 Insulin Aspart (novoLOG ASPART) SLIDING SCALE If C... ACHS SC 05/30/16 16:00 06/29/16 15:59 Glucose (Glucose 40% Gel) 15-30 GRAMS 15 GRAMS... UD PRN PO 05/30/16 15:15 06/29/16 15:14 Glucose (Glucose Chew Tab) 4-8 Tablets 4 Tabl... UD PRN PO 05/30/16 15:15 06/29/16 15:14 Dextrose (Dextrose 50% 50ML Syringe) 25-50ML OF 50% DW IV FOR... UD PRN IV 05/30/16 15:15 06/29/16 15:14 Glucagon (Glucagon Inj) 1 mg UD PRN SQ 05/30/16 15:15 06/29/16 15:14 Physical Exam Vital Signs Past 12 Hours Date Time Temp Pulse Resp B/P Pulse Ox O2 Delivery O2 Flow Rate FiO2 05/31/16 11:20 36.7 49 18 129/68 95 Nasal Cannula 2.0 05/31/16 08:10 99 Nasal Cannula 2.0 05/31/16 07:34 36.7 66 16 162/58 99 Nasal Cannula 2.0 05/31/16 04:24 36.8 55 16 139/68 95 05/31/16 04:00 Nasal Cannula 2.0 05/31/16 00:00 Nasal Cannula 2.0 Constitutional: Alert, oriented, in no acute distress HEENT: Head is atraumatic and normocephalic. EOMs intact. Sclera anicteric. Face is symmetric. No perioral cyanosis. Mucous membranes moist. Neck: Supple, no JVD Pulmonary: Normal respiratory effort, clear to auscultation bilaterally Cardiac: Irregularly irregular, normal S1 and S2, no gallops, no rubs, 2/6 basal systolic ejection murmur with radiation to the carotids Extremities: Varicose veins of bilateral lower extremities. No clubbing, cyanosis, or edema. Pulses intact Abdomen: Obese. Normal bowel sounds, soft, non-tender, no abdominal mass palpated Skin: Normal skin color, turgor, and pigmentation, no rash, no skin lesions Neurological: Oriented to person, place, and time Data Laboratory Results: Last 24 Hours Test 05/30/16 11:42 05/30/16 16:47 05/30/16 20:09 05/31/16 05:30 Urine Color YELLOW Urine Appearance CLEAR Urine pH 6.0 Urine Specific [place] 1.011 Urine Protein 1+ Urine Glucose (UA) NEG Urine Ketones NEG Urine Occult Blood TRACE Urine Nitrite NEG Urine Bilirubin NEG Urine Urobilinogen NEG Urine Leukocyte Esterase MODERATE Urine WBC (Auto) 5-10 /hpf Urine RBC (Auto) 5-10 /hpf Urine Hyaline Casts (Auto) 0 /lpf Urine Epithelial Cells (Auto) >30 /lpf Urine Bacteria (Auto) NEG Bedside Glucose 117 mg/dl 133 mg/dl White Blood Count 7.54 K/uL Red Blood Count 3.94 M/uL Hemoglobin 12.1 g/dL Hematocrit 34.5 % Mean Corpuscular Volume 87.6 fL Mean Corpuscular Hemoglobin 30.7 pg Mean Corpuscular Hemoglobin Concent 35.1 g/dl Platelet Count 312 K/uL Mean Platelet Volume 9.8 fL Neutrophils (%) (Auto) 58.9 % Lymphocytes (%) (Auto) 22.0 % Monocytes (%) (Auto) 9.4 % Eosinophils (%) (Auto) 8.0 % Basophils (%) (Auto) 0.5 % Neutrophils # (Auto) 4.44 K/uL Lymphocytes # (Auto) 1.66 K/uL Monocytes # (Auto) 0.71 K/uL Eosinophils # (Auto) 0.60 K/uL Basophils # (Auto) 0.04 K/uL RDW Standard Deviation 43.3 fL RDW Coefficient of Variation 13.4 % Immature Granulocyte % (Auto) 1.2 % Immature Granulocyte # (Auto) 0.09 K/uL Prothrombin Time 41.0 SECONDS Prothromb Time International Ratio 3.6 Sodium Level 135 mmol/L Potassium Level 4.2 mmol/L Chloride Level 98 mmol/L Carbon Dioxide Level 27 mmol/L Anion Gap 10.0 mmol/L Blood Urea Nitrogen 36 mg/dl Creatinine 1.90 mg/dl Est Creatinine Clear Calc Drug Dose 27.3 ml/min Estimated GFR () 28.8 Estimated GFR (Non- 24.8 BUN/Creatinine Ratio 18.8 Random Glucose 124 mg/dl Calcium Level 8.6 mg/dl Phosphorus Level 3.9 mg/dl Magnesium Level 2.3 mg/dl Triglycerides Level 132 mg/dl Cholesterol Level 119 mg/dl HDL Cholesterol 36 mg/dl LDL Cholesterol, Calculated 57 mg/dl VLDL Cholesterol, Calculated 26 mg/dl Cholesterol/HDL Ratio 3.3 Test 05/31/16 07:40 Bedside Glucose 135 mg/dl CXR: No acute process. EKG: Atrial fibrillation with ventricular response rate of 84 bpm. Left anterior fascicular block. Septal infarct. Telemetry reviewed: Atrial fibrillation with rates primarily in the 40's and 50 's bpm. She does occasionally drop to the 30's at times. She has had up to 2 second pauses. 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 She notes an improvement in her breathing since admission, but she does not feel as though her breathing is back to normal. She appears euvolemic on examination currently. Telemetry monitoring crockett shown rates in the 40's and 50's, and it does drop down to the 30's at times. She has had pauses up to 2 seconds in duration this admission. Previous Holter monitors have shown pauses of 3.1 seconds in length. It is therefore suspected that her symptoms are secondary to chronotropic incompetence and that she would benefit most from pacemaker insertion. She will be scheduled for device insertion as an outpatient next week. Otherwise, she appears stable from a cardiovascular standpoint. Thank you for allowing us to see this patient in consultation. The patient was seen and discussed with Dr. Marcos, and the plan was made in collaboration with him.
[2016-05-31 12:00] VITALS: O2SAT 95
[2016-05-31 12:11] VITALS: Ht 167.6 cm; Wt 88.5 kg
--- NOTE | 2016-05-31 14:16 | ECHOCARDIOGRAM REPORT ---
*NOTICE TO RECEIVING DEMOCRAT AGENCY This information is strictly Confidential and protected under [place] law. [place] law prohibits you from making any further disclosure of this information unless further disclosure is expressly permitted by the written consent of the person to whom it pertains or is authorized by law. A general authorization for the release of medical or other information is not sufficient for this purpose. Hospital accepts no responsibility if the information is made available to any other person, INCLUDING THE PATIENT. Interpretation Summary * Name: SAMI RODGERS Study Date: 05/31/2016 08:01 AM BP: 162/58 mmHg * Patient Location: .[facility]\S\N285\S\2 HR: 66 * : 1940 (M/d/yyyy) Gender: Female Height: 66 in * Age: 76 yrs Ethnicity: [place] Weight: 201 lb * Ordering Physician: Nivia Gonzalez * Referring Physician: Self, Referred * Performed By: Merced Pete RDCS * * Reason For Study: CHF, SOB * BSA: 2.0 m2 * History: SOB, CHF * -- Conclusions -- * Left ventricular systolic function is normal. * No regional wall motion abnormalities noted. * Ejection Fraction = 55-60%. * The left atrium is severely dilated. * There is mild to moderate mitral regurgitation. Procedure Details * A contrast injection of Definity was performed to improve assessment of LV function. * Contrast was injected into an intravenous site in the left arm. * One vial of Definity ultrasound contrast was diluted in normal saline to a total volume of 10 ml. A total of '2' ml of solution was administered during imaging. * Lot # [id number] of Definity utilized for procedure. * Expiration date MAY 08. * The attending nurse who injected the contrast agent was PAULA BIGGS RN. Left Ventricle * The left ventricle is normal in size. * There is normal left ventricular wall thickness. * Ejection Fraction = 55-60%. * Left ventricular systolic function is normal. * No regional wall motion abnormalities noted. Right Ventricle * The right ventricle is grossly normal size. * The right ventricular systolic function is normal as assessed by tricuspid annular plane systolic excursion (TAPSE) (normal >1.5 cm). Atria * The left atrium is severely dilated. * Right atrium not well visualized. * There is no evidence of atrial septal defect, but resolution does not allow assessment for a patent foramen ovale. Mitral Valve * The mitral valve is normal in structure and function. * There is mild to moderate mitral regurgitation. Tricuspid Valve * The tricuspid valve is not well visualized, but is grossly normal. * There is mild tricuspid regurgitation. Aortic Valve * The aortic valve is trileaflet. * The aortic valve opens well. * Aortic valve sclerosis moderate, without significant aortic valvular stenosis. * No aortic regurgitation is present. Pulmonic Valve * The pulmonary valve is not well seen, but the Doppler examination is normal without significant regurgitation or stenosis. * Trace pulmonic valvular regurgitation. Great Vessels * The aortic root is normal size. Pericardium/Pleural * There is no pericardial effusion. Great Vessels * IVC not well seen. MMode 2D Measurements and Calculations IVSd 0.97 cm IVSs 1.3 cm LVIDd 5.1 cm LVIDs 3.7 cm LVPWd 1.3 cm LVPWs 1.7 cm IVS/LVPW 0.77 FS 26.7 % EDV(Teich) 122.5 ml ESV(Teich) 59.0 ml EF(Teich) 51.8 % EDV(cubed) 130.8 ml ESV(cubed) 51.6 ml EF(cubed) 60.5 % % IVS thick 37.8 % % LVPW thick 34.4 % LV mass(C)d 218.5 grams LV mass(C)dI 109.0 grams/m\S\2 LV mass(C)s 216.4 grams LV mass(C)sI 108.0 grams/m\S\2 SV(Teich) 63.5 ml SI(Teich) 31.7 ml/m\S\2 SV(cubed) 79.2 ml SI(cubed) 39.5 ml/m\S\2 Ao root diam 3.0 cm Ao root area 6.9 cm\S\2 LA dimension 7.4 cm LA/Ao 2.5 LVAd ap4 32.0 cm\S\2 LVLd ap4 8.0 cm EDV(MOD-sp4) 106.5 ml EDV(sp4-el) 108.4 ml LVAs ap4 20.4 cm\S\2 LVLs ap4 7.0 cm ESV(MOD-sp4) 50.5 ml ESV(sp4-el) 50.3 ml EF(MOD-sp4) 52.5 % EF(sp4-el) 53.6 % LVAd ap2 30.7 cm\S\2 LVLd ap2 8.1 cm EDV(MOD-sp2) 98.5 ml EDV(sp2-el) 98.1 ml LVAs ap2 18.6 cm\S\2 LVLs ap2 6.6 cm ESV(MOD-sp2) 44.1 ml ESV(sp2-el) 44.2 ml EF(MOD-sp2) 55.2 % EF(sp2-el) 55.0 % LVLd %diff 1.5 % EDV(MOD-bp) 104.2 ml LVLs %diff -5.92 % ESV(MOD-bp) 48.6 ml EF(MOD-bp) 53.4 % SV(MOD-sp4) 55.9 ml SI(MOD-sp4) 27.9 ml/m\S\2 SV(MOD-sp2) 54.4 ml SI(MOD-sp2) 27.2 ml/m\S\2 SV(MOD-bp) 55.6 ml SI(MOD-bp) 27.8 ml/m\S\2 SV(sp4-el) 58.2 ml SI(sp4-el) 29.0 ml/m\S\2 SV(sp2-el) 53.9 ml SI(sp2-el) 26.9 ml/m\S\2 Doppler Measurements and Calculations MV E max janie 89.2 cm/sec MV dec time 0.20 sec Ao V2 max 181.0 cm/sec Ao max PG 13.1 mmHg Ao max PG (full) 11.5 mmHg Ao V2 mean 130.6 cm/sec Ao mean PG 7.8 mmHg Ao mean PG (full) 6.9 mmHg Ao V2 VTI 43.7 cm LV V1 max PG 1.7 mmHg LV V1 mean PG 0.96 mmHg LV V1 max 64.3 cm/sec LV V1 mean 46.5 cm/sec LV V1 VTI 16.7 cm SV(Ao) 299.5 ml SI(Ao) 149.4 ml/m\S\2 TR max janie 239.8 cm/sec
[2016-05-31 14:38] VITALS: BP 129/68; PULSE 49; TEMP 36.7; O2SAT 95
[2016-05-31] MEDS ORDERED: ATEN25TA PO (14:49)
--- NOTE | 2016-05-31 14:54 | Discharge Instructions ---
Discharge Instructions Admission Reason for Admission: Shortness Of Breath Discharge Discharge Diagnosis / Problem: fatigue/short of breath from slow heart rate Discharge Goals Goal(s): Diagnostic testing Activity Recommendations Activity Limitations: as noted below (take it easy until after the pacemaker, move slowly, no heavy exertion) . Instructions / Follow-Up Instructions / Follow-Up your symptoms appear to be due to a slow heart rate. things aren't in the "emergency crisis" phase that would set up an emergent pacemaker, but definitely appear slow enough to be causing your symptoms. you're set up for a pacemaker with dr scott (one of dr xie's colleagues, who does this sort of stuff all the time). between now and then, we'll have you on 1/2 of the dose of the atenolol (25mg instead of 50mg) "red flag" symptoms: -fainting/extreme lightheadedness (would be indicative of heart rates really slow in spite of the lower dose of atenolol) -chest fluttering/heart racing/short of breath (would be indicative of heart rates really fast because of the lower dose of atenolol) -----if you feel either of these, then we'd want you to get seen right away. neither are likely to happen, but we wouldn't want you to ignore symptoms like that should they occur stop your coumadin (warfarin) friday (last dose friday) - so that your blood can get thick enough for dr scott to do the procedure Current Hospital Diet Patient's current hospital diet: AHA Diet (Heart Healthy), Diabetes Type 2 Diet Discharge Diet Recommended Diet: AHA Diet (Heart Healthy), Diabetes Type 2 Diet Pending Studies Studies pending at discharge: no Laboratory Results Hemoglobin A1c Test 05/13/16 08:48 Range/Units Estimated Average Glucose 131 mg/dl Hemoglobin A1c 6.2 H 4.5-5.6 % Lipid Panel Test 05/31/16 05:30 Range/Units Triglycerides Level 132 0-150 mg/dl Cholesterol Level 119 0-200 mg/dl HDL Cholesterol 36 mg/dl Cholesterol/HDL Ratio 3.3 LDL Cholesterol, Calculated 57 mg/dl Medical Emergencies . Who to Call and When: Medical Emergencies: If at any time you feel your situation is an emergency, please call 911 immediately. . Non-Emergent Contact Non-Emergency issues call your: Primary Care Provider, Machine Washer . . "Provider Documentation" section prepared by Mckay Avery. VTE Core Measure Inpt VTE Proph given/why not?: Other Anticoagulation, SCD's
[2016-05-31] MEDS ORDERED: WARFARIN SOD 5 MG TAB PO SCH (16:00)
--- NOTE | 2016-05-31 17:13 | Discharge Summary ---
Discharge Summary Admission Date: May 30, 2016 at 15:13 Discharge Date: May 31, 2016 Discharge Disposition: Home with services Principal Diagnosis: symptomatic bradycardia Immunizations: Have You Had Influenza Vaccine: Yes History of Tetanus Vaccine?: Yes History of Pneumococcal: Yes Pneumococcal Date: Dec 20, 2009 History of Hepatitis B Vaccine: Unknown Procedures: Interpretation Summary * Name: SAMI RODGERS Study Date: 05/31/2016 08:01 AM BP: 162/58 mmHg * Patient Location: [facility]\\S\\N285\\S\\2 HR: 66 * : 1940 (M/d/yyyy) Gender: Female Height: 66 in * Age: 76 yrs Ethnicity: [place] Weight: 201 lb * Ordering Physician: Nivia Gonzalez * Referring Physician: Self, Referred * Performed By: Merced Pete RDCS * * Reason For Study: CHF, SOB * BSA: 2.0 m2 * History: SOB, CHF * -- Conclusions -- * Left ventricular systolic function is normal. * No regional wall motion abnormalities noted. * Ejection Fraction = 55-60%. * The left atrium is severely dilated. * There is mild to moderate mitral regurgitation. Procedure Details * A contrast injection of Definity was performed to improve assessment of LV function. * Contrast was injected into an intravenous site in the left arm. * One vial of Definity ultrasound contrast was diluted in normal saline to a total volume of 10 ml. A total of '2' ml of solution was administered during imaging. * Lot # [id number] of Definity utilized for procedure. * Expiration date MAY 08. * The attending nurse who injected the contrast agent was PAULA BIGGS RN. Left Ventricle * The left ventricle is normal in size. * There is normal left ventricular wall thickness. * Ejection Fraction = 55-60%. * Left ventricular systolic function is normal. * No regional wall motion abnormalities noted. Right Ventricle * The right ventricle is grossly normal size. * The right ventricular systolic function is normal as assessed by tricuspid annular plane systolic excursion (TAPSE) (normal >1.5 cm). Atria * The left atrium is severely dilated. * Right atrium not well visualized. * There is no evidence of atrial septal defect, but resolution does not allow assessment for a patent foramen ovale. Mitral Valve * The mitral valve is normal in structure and function. * There is mild to moderate mitral regurgitation. Tricuspid Valve * The tricuspid valve is not well visualized, but is grossly normal. * There is mild tricuspid regurgitation. Aortic Valve * The aortic valve is trileaflet. * The aortic valve opens well. * Aortic valve sclerosis moderate, without significant aortic valvular stenosis. * No aortic regurgitation is present. Pulmonic Valve * The pulmonary valve is not well seen, but the Doppler examination is normal without significant regurgitation or stenosis. * Trace pulmonic valvular regurgitation. Great Vessels * The aortic root is normal size. Pericardium/Pleural * There is no pericardial effusion. Great Vessels * IVC not well seen. Last Resulted CBC 05/31/16 05:30 Red Blood Count 3.94, Mean Corpuscular Volume 87.6, Mean Corpuscular Hemoglobin 30.7, Mean Corpuscular Hemoglobin Concent 35.1, Mean Platelet Volume 9.8, Neutrophils (%) (Auto) 58.9, Lymphocytes (%) (Auto) 22.0, Monocytes (%) (Auto) 9.4, Eosinophils (%) (Auto) 8.0, Basophils (%) (Auto) 0.5, Neutrophils # (Auto) 4.44, Lymphocytes # (Auto) 1.66, Monocytes # (Auto) 0.71, Eosinophils # (Auto) 0.60, Basophils # (Auto) 0.04 Last Resulted BMP 05/31/16 05:30 Consultations: cardiology Medication Reconciliation New Medications: Atenolol (Tenormin) 25 Mg Tab 1 TAB PO BID for 30 Days, #60 TAB 0 Refills Continued Medications: Alendronate Sodium (Alendronate Sodium) 35 Mg Tab 1 TAB PO WK for 84 Days, #12 TAB 3 Refills Amlodipine (Norvasc) 5 Mg Tab 5 MG PO DAILY, 0 Refills Calcium Carbonate-Vitamin D (Calcium 600+D) 1 Tab Tab 1 TAB PO BID Gemfibrozil (Lopid) 600 Mg Tab 600 MG PO BID, 0 Refills Glipizide (Glipizide) 5 Mg Tab 5 MG PO BID, #60 Hydrochlorothiazide (Hydrochlorothiazide) 25 Mg Tab 25 MG PO DAILY, #30 Isosorbide Mononitrate Ext Rel (Imdur Ext Rel) 30 Mg Tabcr 90 MG PO DAILY, #90 Multivitamin (Multivitamin) Tab 1 TAB PO DAILY, 0 Refills Nitroglycerin (Nitrostat) 0.4 Mg Tab 0.4 MG UT PRN, TAB TAKE ONE TABLET UNDER THE TONGUE EVERY 5 MINUTES FOR UP TO 3 DOSES, NEEDED FOR CHEST PAIN. Oxycodone/Acetaminophen 5MG/325MG (Percocet 5MG/325MG) 1 Tab Tab 1-2 TAB PO Q4H PRN for Pain, #30 TAB Psyllium (Metamucil) 48.57 % Pow 1 DOSE PO HS 2 TABLESPOONS Simvastatin (Zocor) 20 Mg Tab 20 MG PO HS, 0 Refills Warfarin Sod (Coumadin) 2.5 Mg Tab 2.5 MG PO 4XWK, TAB TAKE 2.5 MG EVERY FRIDAY, FRIDAY,FRIDAY and FRIDAY Warfarin Sodium (Warfarin Sodium) 5 Mg Tab 5 MG PO MWF for 90 Days, TAB 3 Refills Zolpidem Tartrate (Zolpidem Tartrate) 5 Mg Tab 5 MG PO HS, #30 Discontinued Medications: Atenolol (Atenolol) 50 Mg Tab 50 MG PO BID, #60 Discharge Exam Physical Exam: General Appearance: no apparent distress Eyes: EOMI ENT: hearing grossly normal Neck: trachea midline Cardiovascular: + bradycardia, + irregularly irregular Extremities: normal inspection 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 was found to be quite bradycardic w some pauses. no complete heart block. no mobitz 2. for pacer placement - unable to be done immediately due to coumadin coagulopathy. not emergent but needs done expeditiously. d/w pt and family in regards to going home on lower dose atenolol vs staying inpt until procedure. after extensive and careful discussions - safe for home -outlined "red flag" symptoms that would fit w severe joe/heart block; outlined severe sx that would fit w afib/RVR safe for home, atenolol reduced to 25mg bid; stop coumadin 5 days before procedure cardiology for pacer next week elevated creatinine appears to be CKD (likely stage 3 vs early stage 4) in upper end of baseline range likely sl jump due to lasix. outpt f/u BMP Total Time Spent: Greater than 30 minutes This includes examination of the patient, discharge planning, medication reconciliation, and communication with other providers. Discharge Instructions Please refer to the electronic Patient Visit Report (Discharge Instructions) for additional information. Additional Copies To Kirill Marcos M.D.
[2016-06-01] MEDS ORDERED: WARFARIN SOD 2.5 MG TAB PO SCH (16:00)
[2016-10-09] MEDS ORDERED: TRIM100T20 PO (11:20)
[2016-10-12] MEDS ORDERED: CYAN1CAP3 PO (16:31)
[2016-10-12] MEDS ORDERED: MRLP17 PO (16:31)
[2016-10-12] MEDS ORDERED: JNV25 PO (16:31)
[2016-10-12] MEDS ORDERED: LDDP5 TD (16:31)
[2016-10-12] MEDS ORDERED: TRAMTAB5 PO (16:31)
== END 2016-05-31 15:50 | disposition home health service (06) | DRG 309 ==
LOC: ENRESERVDT → ENRESERVTM → C.EDB 10:18 → C.MED 15:13
PROVIDERS: ADMIT Hospitalist; ATTEND Family Medicine
DX: I49.5 Sick sinus syndrome (principal); N18.4 Chronic kidney disease, stage 4 (severe); I13.0 Hypertensive heart and chronic kidney disease with heart failure and stage 1 through stage 4 chronic kidney disease, or unspecified chronic kidney disease; I48.2 Chronic atrial fibrillation; I25.10 Atherosclerotic heart disease of native coronary artery without angina pectoris; E03.9 Hypothyroidism, unspecified; I25.2 Old myocardial infarction; G89.29 Other chronic pain; R79.89 Other specified abnormal findings of blood chemistry; M51.26 Other intervertebral disc displacement, lumbar region; E78.00 Pure hypercholesterolemia, unspecified; J44.9 Chronic obstructive pulmonary disease, unspecified; I50.9 Heart failure, unspecified; E11.22 Type 2 diabetes mellitus with diabetic chronic kidney disease; R06.09 Other forms of dyspnea; E78.5 Hyperlipidemia, unspecified; Z79.01 Long term (current) use of anticoagulants; Z87.891 Personal history of nicotine dependence; Z79.84 Long term (current) use of oral hypoglycemic drugs; Z79.899 Other long term (current) drug therapy; Z79.891 Long term (current) use of opiate analgesic; Z79.83 Long term (current) use of bisphosphonates

== ENCOUNTER 2016-06-06 09:25 | Observation (INO) | payer BC ==
[~2016-06-06] VITALS: Ht 165.1 cm; Wt 88.4 kg
[~2016-06-06 09:25] MED LIST changes: +ALEN1TAB21 PO; +ATEN25TA PO; -CMD5 PO; -FSM35 PO; -TNR50 PO; +VANCOMYCIN 1GM/270ML NSS IV SCH; +WARF-246 PO
[2016-06-06] MEDS ORDERED: ATEN-173 PO (10:09)
[2016-06-06 10:17] VITALS: BP 168/67; PULSE 58; TEMP 36.7; O2SAT 92; BMI 31.0
[2016-06-06 10:19] LABS: INR 1.3 (0.9-1.1); PROTHROMBIN TIME (PATIENT) 13.7 SECONDS (9.0-12.0)
[2016-06-06] MEDS ORDERED: SYMIN160 INH (10:40)
[2016-06-06] MEDS ORDERED: BACITRACIN OINT 0.9 GM PKT ONE (10:56)
[2016-06-06] MEDS ORDERED: LIDOCAINE HCL 1% 20 ML VIAL ONE (10:56)
[2016-06-06] MEDS ORDERED: BACITRACIN 50000 UNIT VIAL ONE (10:56)
[2016-06-06] MEDS ORDERED: MIDAZOLAM HCL 5 MG/ML 1 ML VIAL ONE (10:57)
[2016-06-06] MEDS ORDERED: FENTANYL CITRATE INJ 50 MCG/1 ML 2 ML VIAL ONE (10:58)
--- NOTE | 2016-06-06 12:29 | Procedure Note ---
Pre-Mod Sedation Assessment General Date of Moderate Sedation: Jun 06, 2016. Vital Signs: Vital Signs Past 12 Hours Date Time Temp Pulse Resp B/P Pulse Ox O2 Delivery O2 Flow Rate FiO2 06/06/16 12:20 59 18 133/66 95 Nasal Cannula 3 06/06/16 10:17 36.7 58 24 168/67 92 Room Air Review Cardiovascular: + bradycardia, + irregularly irregular Abdomen: normal bowel sounds Lungs: lungs clear Pre-Sedation Airway Assessment Oral Cavity: Dentures Smoking Status: Former Smoker Procedure Planning Contraindications-for Mod Sed: None Yes Notes The planned sedation has been discussed with the patient and consent obtained. I have identified the patient, determined the appropriateness of sedation and have assessed the patient immediately prior to the procedure. All medicine(s) and interventions are by my order.
--- NOTE | 2016-06-06 12:29 | History & Physical Bridge Note ---
H&P Re-Evaluation Bridge Note: I have examined the patient, reviewed the History & Physical and in the interval since the performance of the History & Physical I have noted the following changes of clinical significance: No changes noted. I discussed the indications, procedure, risks and alternatives with the patient and her family and they understand and she agrees to proceed. Consent obtained.
--- NOTE | 2016-06-06 12:59 | Procedure Note ---
Post-Mod Sedation Assessment General Date of Moderate Sedation Jun 06, 2016. Vital Signs: Vital Signs Past 12 Hours Date Time Temp Pulse Resp B/P Pulse Ox O2 Delivery O2 Flow Rate FiO2 06/06/16 12:20 59 18 133/66 95 Nasal Cannula 3 06/06/16 10:17 36.7 58 24 168/67 92 Room Air Review - Discharge Criteria Vital Signs Stable: Yes Alert/Oriented/Conversant: Yes Returned to Baseline Mental St: Yes Nausea Absent/Minimal: Yes Pain/Discomfort/Absent/Minimal: Yes Normal/Baseline Respirations: Yes Active Bleeding?: No
--- NOTE | 2016-06-06 12:59 | Cardiology Procedure Brief Nt ---
Preliminary Cardiology Note Procedure Date Jun 06, 2016. 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 Chaudhary Rock Breaker(s) none Estimated Blood Loss 20 cc Preliminary Findings Good lead position, good measurements Recommendations Monitor overnight Specimens None Anesthesia local with sedation Complication(s) None
[2016-06-06] MEDS ORDERED: KETOROLAC TROMETHAMINE 10 MG TAB PO PRN (13:00)
[2016-06-06] MEDS ORDERED: NITROGLYCERIN 0.4 MG SL PER TAB CHARGE UT PRN (13:00)
--- NOTE | 2016-06-06 14:10 | OPERATIVE REPORT ---
DATE OF OPERATION: 06/06/2016 PREOPERATIVE DIAGNOSIS: Atrial fibrillation with bradycardia. POSTOPERATIVE DIAGNOSIS: Same. PROCEDURE: Single chamber pacemaker implantation. SURGEON: Connor Chaudhary MD ANESTHESIA: Local with sedation. HISTORY OF PRESENT ILLNESS: This is a 76-year-old woman who has permanent atrial fibrillation as well as coronary artery disease. She has been having difficulty with dyspnea on exertion and was noted to be bradycardic. Her atenolol dose was therefore decreased (that is being used for hypertension and coronary artery disease as well as control of atrial fibrillation). She noted improvement in her fatigue and her monitor showed a slow ventricular response with pauses of up to 4 seconds. The beta aman was therefore discontinued and without a beta aman, she has the longest pause being 3.1 seconds, however, her exertional dyspnea continued to worsen and she presented to the Emergency Room on 05/31/2016. At that Emergency Room visit, she was noted to have atrial fibrillation with rates in the 40s and 50s and dropping into the 30s at times (on no AV patricia blockers). It was therefore felt that with symptomatic bradycardia she would benefit from pacemaker implantation. DESCRIPTION OF PROCEDURE: After obtaining informed consent for the procedure, she was brought to the laboratory on the morning of 06/06/2016 being n.p.o. after midnight. She was identified in the laboratory, prepped and draped in standard sterile manner for a left-sided pacemaker implantation. The left prepectoral region was anesthetized with 1% lidocaine local anesthetic and left subclavian venipuncture was performed by percutaneous technique and a guidewire placed through the left subclavian vein into the superior vena cava. The area was further infiltrated with 1% lidocaine local anesthetic and a 5 cm incision was made parallel to the left clavicle and 2 cm below it and carried down to the anterior pectoralis fascia. A pacemaker pocket was formed by blunt dissection anterior to the pectoralis fascia and a bacitracin-soaked sponge (50,000 units in 50 mL normal saline solution) was placed in the pocket. An 8-[place] Medtronic lead introducer was placed over the guidewire into the left subclavian vein, the dilator and guidewire were removed and a bipolar active fixation steroid-tipped ventricular lead was advanced through the introducer into the superior vena cava. The guidewire was placed through the introducer and introducer stripped away from lead and guidewire. Using curved stylette, the ventricular lead was advanced through the right ventricular outflow tract into the pulmonary artery and then using a straight stylette was positioned in the right ventricular apex. Once in position, the ventricular pacing threshold was evaluated in bipolar configuration at a pulse width of 0.5 milliseconds. The final ventricular pacing threshold was 0.4 volts with a current of 0.5 milliamp, 5-volt lead impedance was 647 ohms and R-waves were sensed at 4.3 millivolts although are expected to improve. Diaphragmatic pacing was not present with a 10 volt bipolar output. Once the lead was in position, it was attached to the anterior pectoralis fascia using 2 sutures of 2-0 silk around the lead collar. The bacitracin-soaked sponge was removed from the pocket, the guidewire was removed from left subclavian vein and hemostasis was obtained. The pacemaker (Medtronic Advisa SR) was attached to the lead and found to be functioning normally. It was placed in the pocket with the lead coiled beneath it and the incision was closed with a running double subcutaneous closure of 3-0 Vicryl followed by a running subcuticular skin closure of 4-0 Vicryl. Bacitracin ointment was placed on incision and a pressure dressing applied. The patient tolerated the procedure well, there were no complications and estimated blood loss was 20 mL. The patient was transferred to the telemetry unit for monitoring. The ventricular lead is a Medtronic model 5076, serial #[id number] and is a bipolar active fixation steroid-tipped MRI compatible lead. Pacemaker is a Medtronic Advisa SR MRI SureScan model A3SR01, serial #[id number]. The pacemaker was reprogrammed in the laboratory to final settings. This is an MRI compatible system. [facility]
[2016-06-06] MEDS ORDERED: IV FLUIDS COMPLETED PRN (14:15)
[2016-06-06] MEDS ORDERED: GLUCOSE 40% GEL 15 GM TUBE PO PRN (15:45)
[2016-06-06] MEDS ORDERED: GLUCAGON FOR INJ 1 MG VIAL SQ PRN (15:45)
[2016-06-06] MEDS ORDERED: GLUCOSE 10 TABS/TUBE PO PRN (15:45)
[2016-06-06] MEDS ORDERED: DEXTROSE 50% 50 ML SYR IV PRN (15:45)
[2016-06-06 17:10] VITALS: BP 154/60; PULSE 60; TEMP 36.8; O2SAT 93; Ht 165.1 cm; Wt 88.4 kg
[2016-06-06] MEDS: ACETAMINOPHEN 325 MG TAB PO PRN (19:20)
[2016-06-06 19:51] VITALS: BP 160/68; PULSE 62; TEMP 36.7; O2SAT 92
[2016-06-06 20:49] LABS: HEMATOCRIT 30.7 % (37-47); MEAN CELL VOLUME 84.6 fL (80-100); MEAN PLATELET VOLUME 9.2 fL (7.4-10.4); PLATELET COUNT 254 K/uL (130-400); RED BLOOD COUNT 3.63 M/uL (4.2-5.4); WHITE BLOOD COUNT 6.99 K/uL (4.8-10.8)
[2016-06-06] MEDS ORDERED: ZOLPIDEM TARTRATE 5 MG TAB PO PRN (21:00)
[2016-06-06] MEDS ORDERED: WARFARIN SOD 7.5 MG TAB PO SCH (21:00)
[2016-06-06] MEDS ORDERED: SIMVASTATIN 20 MG TAB PO SCH (21:00)
[2016-06-06 21:05] LABS: MEAN CORPUSCULAR HGB CONC 35.5 g/dl (32-36)
[2016-06-06] MEDS: BUDESONIDE/FORMOTEROL FUMARATE 160/4.5 60 PUFFS/INHALER INH SCH (21:21)
[2016-06-06] MEDS: GEMFIBROZIL 600 MG TAB PO SCH (21:22)
[2016-06-06] MEDS: VANCOMYCIN INJ 1,000 MG in SODIUM CHLORIDE 0.9% 250ML 250 ML IV SCH (23:11)
[2016-06-07 00:16] VITALS: BP 158/68; PULSE 60; TEMP 36.9; O2SAT 92
[2016-06-07] MEDS: ACETAMINOPHEN 325 MG TAB PO PRN (01:28)
[2016-06-07 04:25] VITALS: BP 164/67; PULSE 59; TEMP 36.9; O2SAT 92
[2016-06-07 07:07] LABS: INR 1.3 (0.9-1.1); PROTHROMBIN TIME (PATIENT) 14.1 SECONDS (9.0-12.0)
[2016-06-07 07:52] VITALS: BP 154/72; PULSE 59; TEMP 36.7; O2SAT 93
--- NOTE | 2016-06-07 08:10 | DIAGNOSTIC IMAGING REPORT ---
CHEST 2 VIEWS ROUTINE CLINICAL HISTORY: Pacemaker insertion. COMPARISON STUDY: Chest radiograph May 30, 2016. FINDINGS: No pneumothorax is identified following placement of a single lead left subclavian pacemaker. Lead tip projects over the right ventricle. Moderate cardiomegaly is unchanged. There is no pleural effusion. There is mild interstitial thickening. Linear opacities suggest atelectasis. IMPRESSION: No pneumothorax following placement of a left subclavian pacemaker. Electronically signed by: Jorgito Oseguera M.D. 06/07/2016 8:09 AM Dictated Date/Time: 06/07/2016 8:06 AM
[2016-06-07] MEDS ORDERED: ATEN50TA PO (08:55)
[2016-06-07] MEDS: BUDESONIDE/FORMOTEROL FUMARATE 160/4.5 60 PUFFS/INHALER INH SCH (08:58)
[2016-06-07] MEDS: GEMFIBROZIL 600 MG TAB PO SCH (08:58)
[2016-06-07] MEDS ORDERED: AMLODIPINE BESYLATE 5 MG TAB PO SCH (09:00)
[2016-06-07] MEDS ORDERED: ISOSORBIDE MONONITRATE 30 MG TABCR PO SCH (09:00)
[2016-06-07] MEDS ORDERED: HYDROCHLOROTHIAZIDE 25 MG TAB PO SCH (09:00)
[2016-06-07] MEDS ORDERED: MULTIVITAMIN TAB PO SCH (09:00)
--- NOTE | 2016-06-07 09:01 | Discharge Instructions ---
Discharge Instructions Admission Atrial fibrillation with slow ventricular response Discharge Discharge Diagnosis / Problem: Status post single chamber pacemaker insertion Discharge Goals Goal(s): Improve disease control Activity Recommendations Activity Limitations: as noted below ACTIVITY RECOMMENDATIONS: * Do not raise affected arm over head for 2 weeks. SPECIAL CARE INSTRUCTIONS: * If bleeding occurs, apply direct pressure to area for 5 minutes. * Call your doctor if you have severe pain, fever, drainage or bleeding at site. * Keep dressing on and dry for 48 hours then remove. * Keep any scheduled doctor's appointment. * Implant Card - hand held device with website information given. SKIN IRRITATION: * You may experience some redness and/or swelling in the area where radiation was administered. If any skin irritation occurs, please contact your family physician. FOLLOW UP VISIT: 06/10/16 @ 10:30 am for incision check . Current Hospital Diet Patient's current hospital diet: AHA Diet (Heart Healthy) Discharge Diet Recommended Diet: AHA Diet (Heart Healthy) Pending Studies Studies pending at discharge: no Laboratory Results Hemoglobin A1c Test 05/13/16 08:48 Range/Units Estimated Average Glucose 131 mg/dl Hemoglobin A1c 6.2 H 4.5-5.6 % Lipid Panel Test 05/31/16 05:30 Range/Units Triglycerides Level 132 0-150 mg/dl Cholesterol Level 119 0-200 mg/dl HDL Cholesterol 36 mg/dl Cholesterol/HDL Ratio 3.3 LDL Cholesterol, Calculated 57 mg/dl Medical Emergencies . Who to Call and When: Medical Emergencies: If at any time you feel your situation is an emergency, please call 911 immediately. . Non-Emergent Contact Non-Emergency issues call your: Band Bias Machine Operator . . "Provider Documentation" section prepared by Araseli Ornelas. VTE Core Measure Inpt VTE Proph given/why not?: Warfarin (Coumadin), Treatment not indicated
--- NOTE | 2016-06-07 09:27 | Cardiology Follow-Up ---
Subjective Date of Service: Jun 07, 2016. Pt evaluation today including: conversation w/ patient, physical exam, lab review, review of studies, review of inpatient medication list History of Present Illness Postop day #1, pacemaker implantation yesterday. Some incisional discomfort but no other complaints. No chest discomfort Social History Smoking Status: Former Smoker History of Alcohol Use: No Review of Systems Respiratory: + see HPI, No shortness of breath Cardiac: + see HPI, No chest pain Objective Vital Signs Past 12 Hours Date Time Temp Pulse Resp B/P Pulse Ox O2 Delivery O2 Flow Rate FiO2 06/07/16 07:52 36.7 59 20 154/72 93 Room Air 06/07/16 04:25 36.9 59 16 164/67 92 Room Air 06/07/16 04:00 Room Air 06/07/16 00:16 36.9 60 20 158/68 92 Room Air 06/07/16 00:00 Room Air Last Recorded Weight-Kilograms: 88.400 Intake & Output 8-Hour Column 06/06/16 06/06/16 06/07/16 15:59 23:59 07:59 Output Total 400 ml 750 ml Balance -400 ml -750 ml 24-Hour Column 06/07/16 07:59 Output Total 1150 ml Balance -1150 ml Physical Exam Constitutional: Level of Distress: NAD Lungs: Auscultation: breath sounds normal Cardiovascular: Heart Auscultation: RRR, no rubs Incision is clean and dry, somewhat tender but no significant hematoma. Data Laboratory Results: Last 24 Hours Test 06/06/16 09:45 06/06/16 10:02 06/06/16 20:22 06/06/16 20:42 Bedside Glucose 161 mg/dl 163 mg/dl Prothrombin Time 13.7 SECONDS Prothromb Time International Ratio 1.3 White Blood Count 6.99 K/uL Red Blood Count 3.63 M/uL Hemoglobin 10.9 g/dL Hematocrit 30.7 % Mean Corpuscular Volume 84.6 fL Mean Corpuscular Hemoglobin 30.0 pg Mean Corpuscular Hemoglobin Concent 35.5 g/dl RDW Standard Deviation 40.8 fL RDW Coefficient of Variation 13.5 % Platelet Count 254 K/uL Mean Platelet Volume 9.2 fL Test 06/07/16 06:40 06/07/16 06:47 Prothrombin Time 14.1 SECONDS Prothromb Time International Ratio 1.3 Bedside Glucose 121 mg/dl Imaging: Chest x-ray: Lead in good position, no pneumothorax EKG: Predominantly ventricular pacing post-pacemaker implantation, underlying atrial fibrillation Telemetry reviewed: Predominantly ventricular pacing appropriately Pacemaker evaluation: Excellent pacing and sensing characteristics. Assessment and Plan #1. Postop day #1 pacemaker implantation: She is doing well post-pacemaker implantation, the site looks good and the device is functioning well. No complications evident. Stable for discharge. We will arrange a wound check in several days.
[2016-06-07] MEDS: VANCOMYCIN INJ 1,000 MG in SODIUM CHLORIDE 0.9% 250ML 250 ML IV SCH (09:59)
--- NOTE | 2016-06-07 11:49 | Discharge Summary ---
Discharge Summary Admission Date: Jun 06, 2016 at 12:56 Discharge Date: Jun 07, 2016 Discharge Disposition: Home Primary Diagnosis: Atrial fibrillation with slow ventricular response Secondary Diagnoses/Problems: Medical Problems: (1) CHF (congestive heart failure) Status: Acute (2) Dyspnea on exertion Status: Acute Procedures: Single-chamber pacemaker insertion Discharge Instructions Last Recorded Wt (Kilograms): 88.400 Activity Recommendations: limitations as noted below Allergies: Coded Allergies: Chlorthalidone (Verified Allergy, Unknown, UNK, 06/06/16) Penicillins (Verified Allergy, Unknown, 06/06/16) Additional Instructions: ACTIVITY RECOMMENDATIONS: * Do not raise affected arm over head for 2 weeks. SPECIAL CARE INSTRUCTIONS: * If bleeding occurs, apply direct pressure to area for 5 minutes. * Call your doctor if you have severe pain, fever, drainage or bleeding at site. * Keep dressing on and dry for 48 hours then remove. * Keep any scheduled doctor's appointment. * Implant Card - hand held device with website information given. SKIN IRRITATION: * You may experience some redness and/or swelling in the area where radiation was administered. If any skin irritation occurs, please contact your family physician. FOLLOW UP VISIT: Keep any scheduled doctor appointments. Special Care: Call your doctor if: * Temperature above 101 degrees * Pain not relieved by pain medicine ordered * There is increased drainage or redness from any incision * You have any unanswered questions or concerns. Avoid all tobacco products. If you need help to stop smoking, call [place]'s FREE QUITLINE at . This is a free call. Admission HPI This is a 76-year-old woman who has permanent atrial fibrillation as well as coronary artery disease. She has been having difficulty with dyspnea on exertion and was noted to be bradycardic. Her atenolol dose was therefore decreased (that is being used for hypertension and coronary artery disease as well as control of atrial fibrillation). She noted improvement in her fatigue and her monitor showed a slow ventricular response with pauses of up to 4 seconds. The beta aman was therefore discontinued and without a beta aman , she has the longest pause being 3.1 seconds, however, her exertional dyspnea continued to worsen and she presented to the Emergency Room on 05/31/2016. At that Emergency Room visit, she was noted to have atrial fibrillation with rates in the 40s and 50s and dropping into the 30s at times (on no AV patricia blockers) . It was therefore felt that with symptomatic bradycardia she would benefit from pacemaker implantation. Admission Physical Exam In general this is a mildly obese white female in no acute distress. HEENT exam is negative. Neck is supple with full carotid upstrokes. A transmitted murmur is noted bilaterally. Jugular venous pressure is flat at 90. There is no thyromegaly. Cardiovascular exam reveals an irregularly irregular rhythm with a 2/6 basal systolic ejection murmur. No S3. Lungs are clear without rales, rhonchi, or wheezes. Abdomen is obese without bruits. Extremities reveal intact radial artery pulses bilaterally. There is trace pretibial edema. Diffuse lower extremity varicosities are noted. Hospital Course Patient is a 76-year-old female with permanent atrial fibrillation and significant bradycardia who underwent single-chamber pacemaker insertion on 06/[address] Chaudhary. She tolerated the procedure well. Device check the following day showed excellent sensing and pacing characteristics. CXR showed good lead placement and no evidence of pneumothorax. She was deemed stable for discharge home. She was initiated on Atenolol 50 mg BID prior to discharge. She will have follow-up for incision check on 06/10/16 as an outpatient and pacemaker check in 1 month. Total time spent on discharge = This includes examination of the patient, discharge planning, medication reconciliation, and communication with other providers.
[2016-06-07 11:57] VITALS: BP 152/78; PULSE 58; TEMP 36.8; O2SAT 92
--- NOTE | 2016-06-28 08:02 | CODING QUERY MEDICAL NECESSITY ---
SUPPORTING DIAGNOSIS NEEDED A supporting diagnosis is required for the test/procedure performed on this patient in order for us to be reimbursed by the patient's insurance. Please provide a supporting diagnosis for the following test/procedure listed below next to the test name along with your signature. *If there is no additional diagnosis for this patient that would support the following test/procedure please document that below next to the test/procedure. Test(s)/Procedure(s) that require a supporting diagnosis: * SINGLE/DUAL CHAMBER PERMANENT CARDIAC PACEMAKER * DIAGNOSIS: * DOS: 06/06/16 Provider Signature: Date: Thank you Yolanda [facility] Information [facility] For questions please call [phone]
--- NOTE | 2016-07-04 08:50 | EDITING REQUIRED CODING QUERY ---
SUPPORTING DIAGNOSIS NEEDED A supporting diagnosis is required for the test/procedure performed on this patient in order for us to be reimbursed by the patient's insurance. Please provide a supporting diagnosis for the following test/procedure listed below next to the test name along with your signature. *If there is no additional diagnosis for this patient that would support the following test/procedure please document that below next to the test/procedure. Test(s)/Procedure(s) that require a supporting diagnosis: * SINGLE/DUAL CHAMBER PERMANENT PACEMAKER DIAGNOSIS: Bradycardia, atrial fibrillation * DOS: 06/06/16 Provider Signature: Date: Thank you Yolanda [facility] Information Management For questions please call [phone]
[2016-10-09] MEDS ORDERED: TRIM100T20 PO (11:20)
[2016-10-12] MEDS ORDERED: MRLP17 PO (16:31)
[2016-10-12] MEDS ORDERED: JNV25 PO (16:31)
[2016-10-12] MEDS ORDERED: CYAN1CAP3 PO (16:31)
[2016-10-12] MEDS ORDERED: LDDP5 TD (16:31)
[2016-10-12] MEDS ORDERED: TRAMTAB5 PO (16:31)
== END 2016-06-07 13:18 | disposition home or self-care (01) ==
LOC: C.ACU 09:25 → C.2T 12:56
PROVIDERS: ADMIT Internal Medicine Cardiovascular Disease; ATTEND Internal Medicine Cardiovascular Disease
DX: I48.2 Chronic atrial fibrillation (principal); I65.29 Occlusion and stenosis of unspecified carotid artery; I25.10 Atherosclerotic heart disease of native coronary artery without angina pectoris; E78.00 Pure hypercholesterolemia, unspecified; N18.3 Chronic kidney disease, stage 3 (moderate); J43.9 Emphysema, unspecified; E11.9 Type 2 diabetes mellitus without complications; E03.9 Hypothyroidism, unspecified; G25.81 Restless legs syndrome; N25.81 Secondary hyperparathyroidism of renal origin; E55.9 Vitamin D deficiency, unspecified; I12.9 Hypertensive chronic kidney disease with stage 1 through stage 4 chronic kidney disease, or unspecified chronic kidney disease; Z87.891 Personal history of nicotine dependence; Z79.01 Long term (current) use of anticoagulants; Z79.899 Other long term (current) drug therapy; R00.1 Bradycardia, unspecified

== ENCOUNTER → 2016-06-26 | Outpatient (CLI) | payer BC ==
[~2016-06-26] MED LIST changes: +AMLO-114 PO; -ATEN25TA PO; +ATEN50TA PO; +ATEN50TA8 PO; +CHOL1TAB63 PO; +CYAN1CAP3 PO; +DOCU1TAB6 PO; +JNV25 PO; +LDDP5 TD; +LOSA1TAB PO; +MRLP17 PO; -OXYC-57 PO; +SULF800T23 PO; +SYMIN160 INH; +TRAMTAB5 PO; +TRIM100T20 PO; -VANCOMYCIN 1GM/270ML NSS IV SCH
== END | disposition home or self-care (01) ==
LOC: C.LABSPEC 17:30
PROVIDERS: ATTEND Urology
DX: R31.29 Other microscopic hematuria (principal)

== ENCOUNTER → 2016-08-14 | Outpatient (CLI) | payer BC ==
[~2016-08-14] MED LIST changes: +TRIM100T PO; -TRIM100T20 PO
[2016-08-14 12:33] LABS: HEMATOCRIT 37.8 % (37-47); MEAN CORPUSCULAR HEMOGLOBIN 30.2 pg (25-34); MEAN CORPUSCULAR HGB CONC 33.6 g/dl (32-36); MEAN PLATELET VOLUME 10.7 fL (7.4-10.4); PLATELET COUNT 210 K/uL (130-400)
[2016-08-14 12:48] LABS: BLOOD UREA NITROGEN 37 mg/dl (7-18); BUN/CREATININE RATIO 26.6 (10-20); CARBON DIOXIDE 27 mmol/L (21-32); CHLORIDE 105 mmol/L (98-107); GLUCOSE 81 mg/dl (70-99); PHOSPHORUS 3.3 mg/dl (2.5-4.9); POTASSIUM 3.9 mmol/L (3.5-5.1); SODIUM 140 mmol/L (136-145)
[2016-08-14 13:03] LABS: CALCIUM 9.6 mg/dl (8.5-10.1)
== END | disposition home or self-care (01) ==
LOC: C.LABBFT 09:13
PROVIDERS: ATTEND Internal Medicine
DX: I10 Essential (primary) hypertension (principal); N18.3 Chronic kidney disease, stage 3 (moderate); N25.81 Secondary hyperparathyroidism of renal origin; R60.9 Edema, unspecified; E55.9 Vitamin D deficiency, unspecified

== ENCOUNTER → 2016-08-15 | Outpatient (CLI) | payer BC ==
[2016-08-15 13:57] LABS: URINE APPEARANCE TURBID (CLEAR); URINE BILIRUBIN NEG (NEG); URINE COLOR YELLOW; URINE NITRITE POS (NEG); URINE SPECIFIC GRAVITY 1.013 (1.000-1.030); UROBILINOGEN NEG (NEG)
[2016-08-15 13:58] LABS: MANUAL MICROSCOPIC REQUIRED? NO; REVIEW REQ? NO
[2016-08-15 16:44] LABS: URINE PROTIEN/CREAT RATIO 0.8 (0-0.2); URINE TOTAL PROTEIN 43.4 mg/dl (0-11.9)
== END | disposition home or self-care (01) ==
LOC: C.LABSPEC 12:41
PROVIDERS: ATTEND Internal Medicine Nephrology
DX: N18.3 Chronic kidney disease, stage 3 (moderate) (principal); R60.9 Edema, unspecified; I10 Essential (primary) hypertension; N25.81 Secondary hyperparathyroidism of renal origin; E55.9 Vitamin D deficiency, unspecified

== ENCOUNTER → 2016-10-02 | Outpatient (CLI) | payer BC | END | disposition home or self-care (01) | LOC: C.LABSPEC 16:57 | PROVIDERS: ATTEND Urology | DX: N39.0 Urinary tract infection, site not specified (principal) ==

== ENCOUNTER 2016-10-09 10:12 | Inpatient (IN) | payer BC, OTHER ==
[~2016-10-09] VITALS: Ht 165.1 cm; Wt 94.7 kg
[~2016-10-09 10:12] MED LIST changes: -AMLO-114 PO; -ATEN50TA8 PO; -CHOL1TAB63 PO; -CYAN1CAP3 PO; -DOCU1TAB6 PO; -JNV25 PO; -LDDP5 TD; -LOSA1TAB PO; -MRLP17 PO; -SULF800T23 PO; -TRAMTAB5 PO; -TRIM100T PO
[2016-10-09] MEDS ORDERED: FENTANYL CITRATE INJ 50 MCG/1 ML 2 ML VIAL IV STA (10:26)
[2016-10-09] MEDS ORDERED: SODIUM CHLORIDE 0.9% 1000ML 1,000 ML IV STA (10:26)
--- NOTE | 2016-10-09 10:32 | EMERGENCY ROOM VISIT NOTE ---
History Report prepared by Diego: Sayda Lundberg Under the Supervision of: Dr. Juliocesar Bob M.D. First contact with patient: 10:20 Chief Complaint: FALL Stated Complaint: FALL,BACK PAIN, PAIN IN BOTH ARMS, SCRAPPED NOSE History of Present Illness The patient is a 76 year old female who presents to the Emergency Room with complaints of constant pain to injuries from fall that occurred just prior to arrival. The patient states that she was sitting on the end of her bed when she went to stand up. She had a syncopal episode and fell to the ground. The patient is unsure of how long the episode lasted. She woke up on the ground. The patient notes pain to her back and both arms. Her back pain worsens with breathing. She has a scrap to her nose. The patient has a UTI and has been on Bactrim for past 2 days. She has been on Bactrim before with no issues those times. The patient is on Coumadin. She recently got a pace maker. She denies new medications, taking any pain medications today or neck pain. 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 She is experiencing bilateral arm pain. Review of Systems See HPI for pertinent positives & negatives. A total of 10 systems reviewed and were otherwise negative. Past Medical & Surgical Medical Problems: (1) Bradycardia (2) CAD (coronary artery disease) (3) DM (diabetes mellitus) (4) DM (diabetes mellitus) (5) HTN (hypertension) (6) HTN (hypertension) (7) HTN (hypertension) (8) Hyperlipidemia (9) Hypertension (10) Intractable back pain (11) Intractable back pain (12) Shortness of breath (13) UTI (urinary tract infection) Family History Cancer FH: pneumonia Heart disease Social History Smoking Status: Never Smoker Drug Use: none Marital Status: Occupation Status: retired Current/Historical Medications Scheduled Amlodipine (Norvasc), 10 MG PO DAILY Atenolol (Tenormin), 50 MG PO BID Budesonide/Formoterol Fumarate (Symbicort 160/4.5 Inhaler ), 2 PUFFS INH BID Calcium Carbonate-Vitamin D (Calcium 600+D), 1 TAB PO BID Cholecalciferol (Vitamin D3), 50,000 UNITS PO MONTHLY Docusate Sodium (Docusate Sodium), 100 MG PO HS Gemfibrozil (Lopid), 600 MG PO BID Glipizide (Glipizide), 5 MG PO BID Hydrochlorothiazide (Hydrochlorothiazide), 25 MG PO DAILY Isosorbide Mononitrate Ext Rel (Imdur Ext Rel), 90 MG PO DAILY Losartan Potassium (Cozaar), 25 MG PO DAILY Multivitamin (Multivitamin), 1 TAB PO DAILY Nitroglycerin (Nitrostat), 0.4 MG UT PRN Psyllium (Metamucil), 1 DOSE PO HS Simvastatin (Zocor), 20 MG PO HS Sulfamethoxazole-Trimethoprim (Bactrim Ds 800MG/160MG), 1 TAB PO BID Trimethoprim (Proloprim), 100 MG PO HS Warfarin Sod (Coumadin), 2.5 MG PO 5XWK Warfarin Sodium (Warfarin Sodium), 5 MG PO 2XWK Zolpidem Tartrate (Zolpidem Tartrate), 5 MG PO HS Allergies Coded Allergies: Chlorthalidone (Verified Allergy, Unknown, UNK, 10/09/16) Penicillins (Verified Allergy, Unknown, 10/09/16) Physical Exam Vital Signs Date Time Temp Pulse Resp B/P (MAP) Pulse Ox O2 Delivery O2 Flow Rate FiO2 10/09/16 14:26 61 18 151/56 97 Room Air 10/09/16 13:04 62 16 149/57 96 Room Air 10/09/16 12:05 61 10/09/16 11:31 61 20 157/73 96 Room Air 10/09/16 10:16 36.4 59 22 142/71 96 Room Air Physical Exam GENERAL: Patient is elderly, in moderate distress, and uncomfortable appearing. HEENT: No acute trauma, normocephalic atraumatic, mucous membranes moist, no nasal congestion, no scleral icterus. Bruising and abrasion over bridge of nose. NECK: No stridor, no adenopathy, no meningismus, trachea is midline. LUNGS: No dyspnea. Clear to auscultation and equal bilaterally. No wheeze, no rhonchi. HEART: Regular rate and rhythm. No murmurs, rubs, gallops appreciated. ABDOMEN: Soft, nontender, bowel sounds positive, no masses appreciated, no peritonitis. BACK: No midline tenderness, no CVA tenderness EXTREMITIES: Normal motion all extremities, no cyanosis, no edema. NEUROLOGIC: Alert and oriented, no acute motor or sensory deficits, no focal weakness, cranial nerves grossly intact. SKIN: Large bruise over right lateral rib, tender to palpation. Bilateral chronic leg edema. Medical Decision & Procedures ER Provider Diagnostic Interpretation: Radiology results and stated below per my review and radiologist interpretation: RIGHT RIBS UNILATERAL WITH PA CHEST CLINICAL HISTORY: right chest pain from fall with bruising Right trauma. Pain. COMPARISON STUDY: None FINDINGS: Nondisplaced cortical fracture right 10th and 11th ribs. All remaining ribs are unremarkable. Lungs are considered clear. No evidence pneumothorax. Moderate stable cardiomegaly. Prominent pulmonary vasculature. IMPRESSION: 1. Nondisplaced cortical fractures right 10th and 11th ribs. 2. No evidence pneumothorax. 3. Pulmonary venous congestion Electronically signed by: Gumaro Medina M.D. 10/09/2016 1:51 PM Dictated Date/Time: 10/09/2016 1:[address] SCAN OF THE BRAIN WITHOUT IV CONTRAST CLINICAL HISTORY: Syncope. COMPARISON STUDY: CT of the brain dated 12/31/2011. TECHNIQUE: Unenhanced axial CT scan of the brain is performed from the vertex to the skull base. CT DOSE: 614.27 mGy.cm FINDINGS: Brain parenchyma: There are age-related involutional changes noting mild to moderate subcortical and periventricular microangiopathic change. There is no hemorrhage, mass effect, or evidence of acute territorial ischemia by CT criteria. Contreras-white matter is preserved. No extra-axial fluid collection is seen. Ventricles, sulci, cisterns: Prominent secondary to involutional change. Intracranial vasculature: There is atherosclerotic calcification of the cavernous carotid and vertebral arteries. Calvarium: The skeletal structures are osteopenic. There is no depressed calvarial fracture. Hyperostosis frontalis is incidentally noted. Sinuses and mastoids: The visualized paranasal sinuses are clear. The mastoid air cells are well pneumatized. Orbits: The bony orbits are grossly intact. There are bilateral ocular lens implants. IMPRESSION: There is no hemorrhage, mass effect, or evidence of acute territorial ischemia by CT criteria. Electronically signed by: Dariusz Jensen M.D. 10/09/2016 12:44 PM Dictated Date/Time: 10/09/2016 12:41 PM Laboratory Results 10/09/16 11:20 Red Blood Count 4.03, Mean Corpuscular Volume 89.3, Mean Corpuscular Hemoglobin 28.8, Mean Corpuscular Hemoglobin Concent 32.2, Mean Platelet Volume 10.0, Neutrophils (%) (Auto) 83.9, Lymphocytes (%) (Auto) 9.3, Monocytes (%) (Auto) 5.5, Eosinophils (%) (Auto) 0.5, Basophils (%) (Auto) 0.3, Neutrophils # (Auto) 6.43, Lymphocytes # (Auto) 0.71, Monocytes # (Auto) 0.42, Eosinophils # (Auto) 0.04, Basophils # (Auto) 0.02 10/09/16 11:20 Test 10/09/16 11:20 10/09/16 14:58 White Blood Count 7.66 K/uL (4.8-10.8) Red Blood Count 4.03 M/uL (4.2-5.4) Hemoglobin 11.6 g/dL (12.0-16.0) Hematocrit 36.0 % (37-47) Mean Corpuscular Volume 89.3 fL (80-100) Mean Corpuscular Hemoglobin 28.8 pg (25-34) Mean Corpuscular Hemoglobin Concent 32.2 g/dl (32-36) Platelet Count 213 K/uL (130-400) Mean Platelet Volume 10.0 fL (7.4-10.4) Neutrophils (%) (Auto) 83.9 % Lymphocytes (%) (Auto) 9.3 % Monocytes (%) (Auto) 5.5 % Eosinophils (%) (Auto) 0.5 % Basophils (%) (Auto) 0.3 % Neutrophils # (Auto) 6.43 K/uL (1.4-6.5) Lymphocytes # (Auto) 0.71 K/uL (1.2-3.4) Monocytes # (Auto) 0.42 K/uL (0.11-0.59) Eosinophils # (Auto) 0.04 K/uL (0-0.5) Basophils # (Auto) 0.02 K/uL (0-0.2) RDW Standard Deviation 44.9 fL (36.4-46.3) RDW Coefficient of Variation 13.8 % (11.5-14.5) Immature Granulocyte % (Auto) 0.5 % Immature Granulocyte # (Auto) 0.04 K/uL (0.00-0.02) Prothrombin Time 56.0 SECONDS (9.0-12.0) Prothromb Time International Ratio 4.9 (0.9-1.1) Activated Partial Thromboplast Time 53.7 SECONDS (21.0-31.0) Partial Thromboplastin Ratio 2.1 Anion Gap 7.0 mmol/L (3-11) Est Creatinine Clear Calc Drug Dose 25.7 ml/min Estimated GFR () 27.0 Estimated GFR (Non- 23.3 BUN/Creatinine Ratio 21.2 (10-20) Calcium Level 8.7 mg/dl (8.5-10.1) Total Creatine Kinase 165 U/L (26-192) Creatine Kinase MB 4.4 ng/ml (0.5-3.6) Creatine Kinase MB Ratio 2.7 (0-3.0) Troponin I < 0.015 ng/ml (0-0.045) Laboratory results as reviewed by me. Medications Administered Medications (Trade) Dose Ordered Sig/Tayler Route Start Time Stop Time Status Last Admin Dose Admin Fentanyl Citrate (Fentanyl Inj) 25 mcg NOW STAT IV 10/09/16 10:26 10/09/16 10:29 DC 10/09/16 11:40 25 MCG Sodium Chloride 1,000 ml @ 75 mls/hr [id number] STAT IV 10/09/16 10:26 10/09/16 23:45 10/09/16 11:41 75 MLS/HR Hydromorphone HCl (Dilaudid Inj) 0.5 mg NOW STAT IV 10/09/16 12:54 10/09/16 12:55 DC 10/09/16 12:54 0.5 MG ECG Indication: syncope Rate (beats per minute): 65 Rhythm: other (ventricular paced) Findings: PVC, no acute ischemic change, other (QTC 480) ED Course 1022: The patient was evaluated in room B12. A complete history and physical exam was performed. 1026: Sodium Chloride 1,000 ml @ 75 mls/hr IV, Fentanyl Inj 25 mcg IV. 1142: The patient just received her pain medication. 1252: The pain is worsening on right side. 1254: Dilaudid Inj 0.5 mg IV. 1405: Discussed the patient's case with Dr. Amandeep CAMACHO. The patient will be evaluated for further treatment and disposition. 1413: The patient is still sore but does not need more pain medication at this moment. 1425: Upon reevaluation, the patient is hemodynamically stable. Discussed results and treatment plan with the patient. She verbalized understanding and agreement with the treatment plan. The patient will be evaluated for further management. Medical Decision Differential: Vaso-vagal, Intracerebral Event, Neurologic, Infectious, Volume Deficiency, Hypoglycemia, Electrolyte Abnormality, Cardiac Source, Toxicologic, amongst other pathologies entertained. Medication Reconciliation: I attest that I have personally reviewed the patient 's current medication list. Blood pressure screening: Patient was found to have an elevated blood pressure secondary to situation and will be monitored by hospitalist for recheck and further treatment. 76 yr old female arrives after awakening from floor from syncopal event she does not remember. Contusion to bridge of nose and right lateral chest. Xrays with nondisplaced rib fractures. CT head negative. No abdominal TTP. No neck TTP nor neck pain. Denies headache. INR somewhat elevated. Cr is bumped from her baseline of 1.4 to 2 today. She has known UTI for which she is on Bactrim. [employer] Evaluation of pacer with no acute findings in last 24 hours. Quite uncomfortable though IV narcotics help keep pain at bay as long as not moving around. Discussed with hospitalist for bringing in to ED for further evaluation. Consults Time Called: 1402 Consulting Physician: Dr. Amandeep CAMACHO Returned Call: [phone] Discussed the patient's case. The patient will be evaluated for further treatment and disposition. Impression Primary Impression: Acute renal failure Additional Impressions: Single kidney Syncope Scribe Attestation The scribe's documentation has been prepared under my direction and personally reviewed by me in its entirety. I confirm that the note above accurately reflects all work, treatment, procedures, and medical decision making performed by me. Departure Information Dispostion Being Evaluated By Hospitalist Referrals Dagoberto Headley M.D. (PCP) Problem Qualifiers
[2016-10-09] MEDS ORDERED: CHOL1TAB63 PO (11:20)
[2016-10-09] MEDS ORDERED: TRIM100T PO (11:20)
[2016-10-09] MEDS ORDERED: LOSA1TAB PO (11:20)
[2016-10-09] MEDS ORDERED: DOCU1TAB6 PO (11:20)
[2016-10-09] MEDS ORDERED: AMLO-114 PO (11:20)
[2016-10-09] MEDS ORDERED: ATEN50TA8 PO (11:20)
[2016-10-09] MEDS ORDERED: SULF800T23 PO (11:21)
[2016-10-09 11:38] LABS: BASO % 0.3 %; BASO ABS # 0.02 K/uL (0-0.2); COMPLETE YES; EOS % 0.5 %; IG% 0.5 %; LYMPH % 9.3 %; LYMPH ABS # 0.71 K/uL (1.2-3.4); MEAN CELL VOLUME 89.3 fL (80-100); MEAN CORPUSCULAR HEMOGLOBIN 28.8 pg (25-34); MEAN CORPUSCULAR HGB CONC 32.2 g/dl (32-36); MONO % 5.5 %; NEUT % 83.9 %; PLATELET COUNT 213 K/uL (130-400); RED BLOOD COUNT 4.03 M/uL (4.2-5.4); WHITE BLOOD COUNT 7.66 K/uL (4.8-10.8)
[2016-10-09 11:59] LABS: BLOOD UREA NITROGEN 42 mg/dl (7-18); BUN/CREATININE RATIO 21.2 (10-20); CALCIUM 8.7 mg/dl (8.5-10.1); CARBON DIOXIDE 25 mmol/L (21-32); CHLORIDE 107 mmol/L (98-107); GLUCOSE 140 mg/dl (70-99); PARTIAL THROMBOPLASTIN RATIO 2.1; POTASSIUM 4.8 mmol/L (3.5-5.1); SODIUM 139 mmol/L (136-145)
[2016-10-09 12:04] LABS: CKMB/CK RATIO 2.7 (0-3.0)
[2016-10-09 12:32] LABS: INR 4.9 (0.9-1.1)
--- NOTE | 2016-10-09 12:45 | DIAGNOSTIC IMAGING REPORT ---
CT SCAN OF THE BRAIN WITHOUT IV CONTRAST CLINICAL HISTORY: Syncope. COMPARISON STUDY: CT of the brain dated 12/31/2011. TECHNIQUE: Unenhanced axial CT scan of the brain is performed from the vertex to the skull base. CT DOSE: 614.27 mGy.cm FINDINGS: Brain parenchyma: There are age-related involutional changes noting mild to moderate subcortical and periventricular microangiopathic change. There is no hemorrhage, mass effect, or evidence of acute territorial ischemia by CT criteria. Contreras-white matter is preserved. No extra-axial fluid collection is seen. Ventricles, sulci, cisterns: Prominent secondary to involutional change. Intracranial vasculature: There is atherosclerotic calcification of the cavernous carotid and vertebral arteries. Calvarium: The skeletal structures are osteopenic. There is no depressed calvarial fracture. Hyperostosis frontalis is incidentally noted. Sinuses and mastoids: The visualized paranasal sinuses are clear. The mastoid air cells are well pneumatized. Orbits: The bony orbits are grossly intact. There are bilateral ocular lens implants. IMPRESSION: There is no hemorrhage, mass effect, or evidence of acute territorial ischemia by CT criteria. Electronically signed by: Dariusz Jensen M.D. 10/09/2016 12:44 PM Dictated Date/Time: 10/09/2016 12:41 PM
[2016-10-09] MEDS ORDERED: HYDROmorphone INJ 0.5 MG/0.5 ML SYR IV STA ×2 (12:54→15:06)
--- NOTE | 2016-10-09 13:52 | DIAGNOSTIC IMAGING REPORT ---
RIGHT RIBS UNILATERAL WITH PA CHEST CLINICAL HISTORY: right chest pain from fall with bruising Right trauma. Pain. COMPARISON STUDY: None FINDINGS: Nondisplaced cortical fracture right 10th and 11th ribs. All remaining ribs are unremarkable. Lungs are considered clear. No evidence pneumothorax. Moderate stable cardiomegaly. Prominent pulmonary vasculature. IMPRESSION: 1. Nondisplaced cortical fractures right 10th and 11th ribs. 2. No evidence pneumothorax. 3. Pulmonary venous congestion Electronically signed by: Gumaro Medina M.D. 10/09/2016 1:51 PM Dictated Date/Time: 10/09/2016 1:48 PM
[2016-10-09 15:17] LABS: URINE APPEARANCE CLEAR (CLEAR); URINE BILIRUBIN NEG (NEG); URINE COLOR YELLOW; URINE EPITHELIAL CELL AUTO >30 /lpf (0-5); URINE NITRITE NEG (NEG); URINE PH 5.5 (4.5-7.5); URINE SPECIFIC GRAVITY 1.016 (1.000-1.030); UROBILINOGEN NEG (NEG); ZZUR CULT IF INDIC CLEAN CATCH YES
[2016-10-09 15:19] LABS: MANUAL MICROSCOPIC REQUIRED? NO; REVIEW REQ? NO
--- NOTE | 2016-10-09 19:28 | History and Physical ---
History & Physical Date & Time of Service: Oct 09, 2016 at 19:01 Chief Complaint: Fall,Back Pain, Pain In Both Arms, Scrapped Nose Primary Care Physician: Dagoberto Headley M.D. History of Present Illness Source: patient, clinic records, hospital records This patient is a pleasant 76-year-old female that presented to the emergency department by ambulance with complaints of a syncopal episode prior to arrival. The patient reports waking up in bed. She sat at the side of the bed for a few minutes like she usually does. That is the last thing she remembers. The next thing she knew she was on the floor. She is currently complaining of right anterior rib discomfort. She denies any shortness of breath. She does not know if she hit her head, however she does not have a headache or any facial pain. The patient denies any other symptoms prior to the event such as dizziness, lightheadedness, changes in vision, nausea, chest pain or pressure or heart palpitations. She reports eating and drinking normally over the last few days. She does however admit to not "feeling herself" yesterday. She is unable to describe this. She denies any fever or chills. She denies any flank pain or dysuria. The patient is currently being treated for urinary tract infection. She reports starting Bactrim DS approximately 3 days ago. She has taken this medication before without complications Past Medical/Surgical History Medical Problems: COPD Chronic kidney disease stage III. Baseline creatinine approximately 1.0. Solitary right kidney Left nephrectomy in 1996 for renal cell carcinoma Diabetes mellitus type 2 History of A. fib and sick sinus syndrome. Status post pacemaker placement in May 2016 Hypertension Coronary artery disease status post [place] in 1992 Status post cholecystectomy and hysterectomy Family History Cancer FH: pneumonia Heart disease Social History Smoking Status: Former Smoker Drug Use: none Marital Status: Housing status: lives with family Occupational Status: retired Immunizations History of Influenza Vaccine: Yes History of Tetanus Vaccine?: Yes History of Pneumococcal: Yes Pneumococcal Date: Dec 20, 2009 History of Hepatitis B Vaccine: Unknown Multi-Drug Resistant Organisms History of MDRO: No Allergies Coded Allergies: Chlorthalidone (Verified Allergy, Unknown, UNK, 10/09/16) Penicillins (Verified Allergy, Unknown, 10/09/16) Home Medications Scheduled Amlodipine (Norvasc), 10 MG PO DAILY Atenolol (Tenormin), 50 MG PO BID Budesonide/Formoterol Fumarate (Symbicort 160/4.5 Inhaler ), 2 PUFFS INH BID Calcium Carbonate-Vitamin D (Calcium 600+D), 1 TAB PO BID Cholecalciferol (Vitamin D3), 50,000 UNITS PO MONTHLY Docusate Sodium (Docusate Sodium), 100 MG PO HS Gemfibrozil (Lopid), 600 MG PO BID Glipizide (Glipizide), 5 MG PO BID Hydrochlorothiazide (Hydrochlorothiazide), 25 MG PO DAILY Isosorbide Mononitrate Ext Rel (Imdur Ext Rel), 90 MG PO DAILY Losartan Potassium (Cozaar), 25 MG PO DAILY Multivitamin (Multivitamin), 1 TAB PO DAILY Nitroglycerin (Nitrostat), 0.4 MG UT PRN Psyllium (Metamucil), 1 DOSE PO HS Simvastatin (Zocor), 20 MG PO HS Sulfamethoxazole-Trimethoprim (Bactrim Ds 800MG/160MG), 1 TAB PO BID Trimethoprim (Proloprim), 100 MG PO HS Warfarin Sod (Coumadin), 2.5 MG PO 5XWK Warfarin Sodium (Warfarin Sodium), 5 MG PO 2XWK Zolpidem Tartrate (Zolpidem Tartrate), 5 MG PO HS Review of Systems 10 system review performed and negative unless noted in HPI or below Physical Exam Vital Signs Date Time Temp Pulse Resp B/P (MAP) Pulse Ox O2 Delivery O2 Flow Rate FiO2 10/09/16 17:49 64 18 140/59 96 Nasal Cannula 3.0 10/09/16 16:06 63 18 133/57 98 Room Air 10/09/16 16:06 63 10/09/16 14:26 61 18 151/56 97 Room Air 10/09/16 13:04 62 16 149/57 96 Room Air 10/09/16 12:05 61 10/09/16 11:31 61 20 157/73 96 Room Air 10/09/16 10:16 36.4 59 22 142/71 96 Room Air General Appearance: no apparent distress Head: normocephalic Eyes: PERRL, EOMI ENT: + pertinent finding (oral mucosa fairly moist) Neck: no JVD Respiratory/Chest: lungs clear Cardiovascular: + systolic murmur, + irregularly irregular Abdomen/GI: normal bowel sounds, non tender, soft Extremities/Musculoskelatal: no calf tenderness, no pedal edema, + pertinent finding (varicose veins present) Neurologic/Psych: no motor/sensory deficits, oriented x 3, + pertinent finding (no focal motor deficits noted) Skin: warm/dry Diagnostics Laboratory Results Results Past 24 Hours Test 10/09/16 11:20 10/09/16 14:58 Range/Units White Blood Count 7.66 4.8-10.8 K/uL Red Blood Count 4.03 4.2-5.4 M/uL Hemoglobin 11.6 12.0-16.0 g/dL Hematocrit 36.0 37-47 % Mean Corpuscular Volume 89.3 80-100 fL Mean Corpuscular Hemoglobin 28.8 25-34 pg Mean Corpuscular Hemoglobin Concent 32.2 32-36 g/dl Platelet Count 213 130-400 K/uL Mean Platelet Volume 10.0 7.4-10.4 fL Neutrophils (%) (Auto) 83.9 % Lymphocytes (%) (Auto) 9.3 % Monocytes (%) (Auto) 5.5 % Eosinophils (%) (Auto) 0.5 % Basophils (%) (Auto) 0.3 % Neutrophils # (Auto) 6.43 1.4-6.5 K/uL Lymphocytes # (Auto) 0.71 1.2-3.4 K/uL Monocytes # (Auto) 0.42 0.11-0.59 K/uL Eosinophils # (Auto) 0.04 0-0.5 K/uL Basophils # (Auto) 0.02 0-0.2 K/uL RDW Standard Deviation 44.9 36.4-46.3 fL RDW Coefficient of Variation 13.8 11.5-14.5 % Immature Granulocyte % (Auto) 0.5 % Immature Granulocyte # (Auto) 0.04 0.00-0.02 K/uL Prothrombin Time 56.0 9.0-12.0 SECONDS Prothromb Time International Ratio 4.9 0.9-1.1 Activated Partial Thromboplast Time 53.7 21.0-31.0 SECONDS Partial Thromboplastin Ratio 2.1 Sodium Level 139 136-145 mmol/L Potassium Level 4.8 3.5-5.1 mmol/L Chloride Level 107 98-107 mmol/L Carbon Dioxide Level 25 21-32 mmol/L Anion Gap 7.0 3-11 mmol/L Blood Urea Nitrogen 42 7-18 mg/dl Creatinine 2.00 0.60-1.20 mg/dl Est Creatinine Clear Calc Drug Dose 25.7 ml/min Estimated GFR () 27.0 Estimated GFR (Non- 23.3 BUN/Creatinine Ratio 21.2 10-20 Random Glucose 140 70-99 mg/dl Calcium Level 8.7 8.5-10.1 mg/dl Total Creatine Kinase 165 26-192 U/L Creatine Kinase MB 4.4 0.5-3.6 ng/ml Creatine Kinase MB Ratio 2.7 0-3.0 Troponin I < 0.015 0-0.045 ng/ml Urine Color YELLOW Urine Appearance CLEAR CLEAR Urine pH 5.5 4.5-7.5 Urine Specific [place] 1.016 1.000-1.030 Urine Protein NEG NEG Urine Glucose (UA) NEG NEG Urine Ketones NEG NEG Urine Occult Blood NEG NEG Urine Nitrite NEG NEG Urine Bilirubin NEG NEG Urine Urobilinogen NEG NEG Urine Leukocyte Esterase LARGE NEG Urine WBC (Auto) 10-30 0-5 /hpf Urine RBC (Auto) 0-4 0-4 /hpf Urine Hyaline Casts (Auto) 0 0-5 /lpf Urine Epithelial Cells (Auto) >30 0-5 /lpf Urine Bacteria (Auto) NEG NEG Microbiology Results 10/09/16 Urine Culture, Received Pending Diagnostic Radiology RIGHT RIBS UNILATERAL WITH PA CHEST CLINICAL HISTORY: right chest pain from fall with bruising Right trauma. Pain. COMPARISON STUDY: None FINDINGS: Nondisplaced cortical fracture right 10th and 11th ribs. All remaining ribs are unremarkable. Lungs are considered clear. No evidence pneumothorax. Moderate stable cardiomegaly. Prominent pulmonary vasculature. IMPRESSION: 1. Nondisplaced cortical fractures right 10th and 11th ribs. 2. No evidence pneumothorax. 3. Pulmonary venous congestion Electronically signed by: Gumaro Medina M.D. 10/09/2016 1:51 PM Dictated Date/Time: 10/09/2016 1:[address] SCAN OF THE BRAIN WITHOUT IV CONTRAST CLINICAL HISTORY: Syncope. COMPARISON STUDY: CT of the brain dated 12/31/2011. TECHNIQUE: Unenhanced axial CT scan of the brain is performed from the vertex to the skull base. CT DOSE: 614.27 mGy.cm FINDINGS: Brain parenchyma: There are age-related involutional changes noting mild to moderate subcortical and periventricular microangiopathic change. There is no hemorrhage, mass effect, or evidence of acute territorial ischemia by CT criteria. [place]-white matter is preserved. No extra-axial fluid collection is seen. Ventricles, sulci, cisterns: Prominent secondary to involutional change. Intracranial vasculature: There is atherosclerotic calcification of the cavernous carotid and vertebral arteries. Calvarium: The skeletal structures are osteopenic. There is no depressed calvarial fracture. Hyperostosis frontalis is incidentally noted. Sinuses and mastoids: The visualized paranasal sinuses are clear. The mastoid air cells are well pneumatized. Orbits: The bony orbits are grossly intact. There are bilateral ocular lens implants. IMPRESSION: There is no hemorrhage, mass effect, or evidence of acute territorial ischemia by CT criteria. Electronically signed by: Dariusz Jensen M.D. 10/09/2016 12:44 PM Dictated Date/Time: 10/09/2016 12:41 PM EKG Ventricular paced rhythm 65 bpm Slightly prolonged QT at 480 Impression Assessment and Plan 76-year-old female presents to emergency department with a syncopal episode prior to arrival resulting in 2 right rib fractures. Pacemaker was interrogated. Functioning properly. Syncopal episode is likely secondary to acute on chronic renal failure. Syncope secondary to acute on chronic renal failure. Baseline Cr~1. Bactrim is probably the culprit. Urine culture from 10/02 growing pansensitive Escherichia coli. -Admit to telemetry -DC'd Bactrim -Begin Cirpo IV renally dosed. Antibiotic treatment for an additional 4 days -NS @ 125 cc/hr -PRP in AM Rib fx -lidoderm patch -norco 1 tab q 4 hr prn for severe pain -incentive spirometry Hx CAD/sick sinus syndrome/A fib -hold home dose of warfarin as INR is supratherapeutic -Continue outpt regimen: Atenolol 50 mg twice daily, Imdur 30 mg daily -Hold losartan 25 mg twice daily in the setting of AK I -Continue simvastatin 20 mg daily COPD -Continue symbicort BID -xopenex/atrovent nebs PRN diabetes mellitus -follow BSGs AC, HS and with meals -insulin sliding scale -Hold glipizide 5 mg twice daily DVT prophylaxis -INR supratherapeutic -TEDS, SCDs CODE STATUS -LEVEL I FULL CODE This chart was completed in part utilizing [employer] Speech Voice Recognition software. Attempts were made to minimize the grammatical errors, random word insertions, pronoun errors and incomplete sentences. Any formal questions or concerns about the content, text or information contained within the body of this dictation should be directly addressed to the provider for clarification. I personally and independently interviewed and examined the patient I reviewed labs and imaging I agree with above mentioned physical exam, History and ROS I discussed and formulated the assessment and plan with Mrs. Milner 76-year-old female P/W recurrent syncopal episode Pacemaker was interrogated showed only one episode of Afib few months ago. recently started on Bactrim as an out patient for UTI and developed YUMIKO ROS aside from what is mentioned above, the rest of ROS is negative Physical exam; dry mucous membrane, Assessment: YUMIKO, likely secondary to bactrim and decrease oral intake UTI / ecoli syncope secondary to above PCN allergy obesity Plan: IVF hydration if no improvement nephrology consult hold all nephrotoxic hold blood pressure meds renal US if renal function did improve Level of Care Telemetry Resuscitation Status FULL RESUSCITATION VTE Prophylaxis VTE Risk Assessment Done? Y/N: Yes Risk Level: Low Given or contraindicated: T.E.D. Stockings, SCD's, Contraindicated
[2016-10-09] MEDS ORDERED: MAGNESIUM HYDROXIDE SUSP 30 ML UDC PO PRN (19:30)
[2016-10-09] MEDS ORDERED: ACETAMINOPHEN 325 MG TAB PO PRN (19:30)
[2016-10-09] MEDS ORDERED: ALUMINUM/MAGNESIUM/SIMETH (MAALOX MAX) 30 ML UDC PO PRN (19:30)
[2016-10-09] MEDS ORDERED: LEVALBUTEROL/IPRATROPIUM NEB INH PRN (19:30)
[2016-10-09 20:13] VITALS: O2SAT 95; BMI 33.0
[2016-10-09 21:30] VITALS: BP 150/73; PULSE 62; TEMP 36.3; O2SAT 96
[2016-10-09] MEDS ORDERED: IPRATROPIUM BROMIDE NEB SOLN 0.02% 2.5 ML VIAL INH PRN (22:45)
[2016-10-09] MEDS ORDERED: LEVALBUTEROL 1.25MG/0.5ML NEB INH PRN (22:45)
[2016-10-09] MEDS ORDERED: GLUCOSE 10 TABS/TUBE PO PRN (22:45)
[2016-10-09] MEDS ORDERED: GLUCOSE 40% GEL 15 GM TUBE PO PRN (22:45)
[2016-10-09] MEDS ORDERED: GLUCAGON FOR INJ 1 MG VIAL SQ PRN (22:45)
[2016-10-09] MEDS ORDERED: DEXTROSE 50% 50 ML SYR IV PRN (22:45)
[2016-10-09] MEDS ORDERED: CIPROFLOXACIN CONSULT ACTIVE PRN ×2 (23:00)
[2016-10-09] MEDS: SODIUM CHLORIDE 0.9% 1000ML 1,000 ML IV SCH (23:02)
[2016-10-09] MEDS: HYDROCODONE/ACETAMOPHEN 5/325MG TAB PO PRN (23:06)
[2016-10-09] MEDS: LIDODERM (LIDOCAINE) PATCH 5% TD SCH (23:07)
[2016-10-09] MEDS: CIPROFLOXACIN / D5W 400 MG in PREMIXED IN D5W 200 ML IV SCH (23:07)
[2016-10-09 23:54] VITALS: BP 144/76; PULSE 66; TEMP 36.4; O2SAT 98
[2016-10-10] VITALS (8 sets, daily range): BP systolic 137–175; BP diastolic 56–74; PULSE 54–66; TEMP 36.5–37; O2SAT 91–96; Ht 165.1 cm; Wt 94.7 kg
[2016-10-10] MEDS: HYDROCODONE/ACETAMOPHEN 5/325MG TAB PO PRN ×5 (03:42→21:24)
[2016-10-10] MEDS: SODIUM CHLORIDE 0.9% 1000ML 1,000 ML IV SCH (05:55)
[2016-10-10 07:33] LABS: BASO % 0.3 %; BASO ABS # 0.02 K/uL (0-0.2); COMPLETE YES; EOS % 2.9 %; HEMATOCRIT 34.5 % (37-47); IG% 0.3 %; LYMPH % 22.2 %; LYMPH ABS # 1.29 K/uL (1.2-3.4); MEAN CELL VOLUME 89.6 fL (80-100); MEAN CORPUSCULAR HEMOGLOBIN 28.8 pg (25-34); MEAN CORPUSCULAR HGB CONC 32.2 g/dl (32-36); MEAN PLATELET VOLUME 10.4 fL (7.4-10.4); MONO % 10.9 %; NEUT % 63.4 %; PLATELET COUNT 183 K/uL (130-400); RED BLOOD COUNT 3.85 M/uL (4.2-5.4)
[2016-10-10 07:46] LABS: PROTHROMBIN TIME (PATIENT) 49.9 SECONDS (9.0-12.0)
[2016-10-10 07:57] LABS: INR 4.4 (0.9-1.1)
[2016-10-10] MEDS: BUDESONIDE/FORMOTEROL FUMARATE 160/4.5 60 PUFFS/INHALER INH SCH ×2 (08:08→21:25)
[2016-10-10 08:09] LABS: BUN/CREATININE RATIO 20.9 (10-20); CREATININE 1.6 mg/dl (0.60-1.20); POTASSIUM 4.1 mmol/L (3.5-5.1)
[2016-10-10] MEDS: GEMFIBROZIL 600 MG TAB PO SCH ×2 (08:09→21:24)
[2016-10-10] MEDS: AMLODIPINE BESYLATE 5 MG TAB PO SCH (08:10)
[2016-10-10] MEDS: ISOSORBIDE MONONITRATE 30 MG TABCR PO SCH (08:11)
[2016-10-10] MEDS: INSULIN ASPART 100 UNITS/ML 3 ML PEN SC SCH ×4 (08:13→21:31)
[2016-10-10 08:36] LABS: CALCIUM 8.6 mg/dl (8.5-10.1)
[2016-10-10] MEDS ORDERED: LIDODERM (LIDOCAINE) PATCH 5% TD SCH (09:00)
[2016-10-10] MEDS ORDERED: D5W AND NSS 1,000 ML IV SCH (10:00)
[2016-10-10] MEDS: SENNA 8.6 MG TAB PO SCH (15:35)
[2016-10-10] MEDS: POLYETHYLENE (MIRALAX) 17 GM PACK PO SCH (15:35)
[2016-10-10] MEDS: SIMVASTATIN 20 MG TAB PO SCH (21:24)
[2016-10-10] MEDS: LIDODERM (LIDOCAINE) PATCH 5% TD SCH (21:25)
[2016-10-10] MEDS: CIPROFLOXACIN / D5W 400 MG in PREMIXED IN D5W 200 ML IV SCH (23:30)
[2016-10-11] VITALS (8 sets, daily range): BP systolic 151–176; BP diastolic 54–69; PULSE 59–70; TEMP 36.6–36.7; O2SAT 91–97
[2016-10-11] MEDS: HYDROCODONE/ACETAMOPHEN 5/325MG TAB PO PRN ×4 (01:27→15:29)
[2016-10-11 06:08] LABS: INR 2.5 (0.9-1.1); PROTHROMBIN TIME (PATIENT) 27.3 SECONDS (9.0-12.0)
[2016-10-11 06:29] LABS: BUN/CREATININE RATIO 20.8 (10-20); CREATININE 1.7 mg/dl (0.60-1.20); POTASSIUM 4.3 mmol/L (3.5-5.1)
[2016-10-11 06:30] LABS: CALCIUM 9.2 mg/dl (8.5-10.1)
[2016-10-11] MEDS: AMLODIPINE BESYLATE 5 MG TAB PO SCH (08:00)
[2016-10-11] MEDS: BUDESONIDE/FORMOTEROL FUMARATE 160/4.5 60 PUFFS/INHALER INH SCH ×2 (08:00→20:35)
[2016-10-11] MEDS: GEMFIBROZIL 600 MG TAB PO SCH ×2 (08:01→20:36)
[2016-10-11] MEDS: ISOSORBIDE MONONITRATE 30 MG TABCR PO SCH (08:01)
[2016-10-11] MEDS: POLYETHYLENE (MIRALAX) 17 GM PACK PO SCH (08:02)
[2016-10-11] MEDS: SENNA 8.6 MG TAB PO SCH (08:02)
--- NOTE | 2016-10-11 08:03 | Progress Note ---
Subjective Date of Service: late entry for visit on Oct 10, 2016. Subjective Pt evaluation today including: conversation w/ patient, conversation w/ family (son at bedside), physical exam, chart review, lab review, review of studies ( including pacemaker interrogation), review of inpatient medication list Pain: rib pain PO Intake: improved patient reports that the night before she passed out she "simply didn't feel well" after her syncopal event she did NOT check her blood sugar but her son was worried about hypoglycemia so he gave her OJ and toast with jelly her blood sugar upon presentation at [facility] was about 100 she has never had syncope before she feels overall better today pacer interrogation done - no dysrhythmia noted yesterday and normal function with 9.5 years of battery life left treated for UTI recently with bactrim Problem List Medical Problems: (1) Acute renal failure Status: Acute (2) CHF (congestive heart failure) Status: Acute (3) Dyspnea on exertion Status: Acute (4) Single kidney Status: Acute (5) Syncope Status: Acute Review of Systems Constitutional: No fever, No chills Respiratory: No shortness of breath, No dyspnea on exertion Cardiac: + see HPI, + chest pain (due to rib pain) Abdomen: No pain Objective Vital Signs Date Time Temp Pulse Resp B/P (MAP) Pulse Ox O2 Delivery O2 Flow Rate FiO2 10/11/16 00:00 Room Air 10/10/16 23:23 36.5 61 18 174/67 (102) 91 Room Air 10/10/16 20:00 Room Air 10/10/16 19:40 36.9 60 18 137/62 (87) 91 Room Air 10/10/16 16:00 Room Air 10/10/16 14:42 36.9 60 18 143/64 (90) 92 Room Air 10/10/16 12:00 Room Air 10/10/16 11:15 37.0 54 18 158/56 (90) 95 Room Air 10/10/16 08:00 Room Air 10/10/16 07:46 60 162/70 (100) 62 159/68 (98) 66 175/74 (107) 10/10/16 07:00 36.8 61 16 166/64 (98) 96 Room Air 10/10/16 04:00 Room Air 10/10/16 03:45 36.6 18 144/68 (93) 96 Room Air Physical Exam General Appearance: no apparent distress ENT: pharynx normal Neck: no JVD Respiratory/Chest: lungs clear, no respiratory distress, no accessory muscle use Cardiovascular: + pertinent finding (irregular, s1, s2, no murmur) Abdomen: normal bowel sounds, non tender, soft, no organomegaly Extremities: no pedal edema Neurologic/Psychiatric: no motor/sensory deficits, alert, oriented x 3 Skin: + pertinent finding (ecchymoses over back, arms) Laboratory Results Last 24 Hours Test 10/10/16 06:56 10/10/16 07:42 10/10/16 07:57 10/10/16 11:23 White Blood Count 5.80 K/uL Red Blood Count 3.85 M/uL Hemoglobin 11.1 g/dL Hematocrit 34.5 % Mean Corpuscular Volume 89.6 fL Mean Corpuscular Hemoglobin 28.8 pg Mean Corpuscular Hemoglobin Concent 32.2 g/dl Platelet Count 183 K/uL Mean Platelet Volume 10.4 fL Neutrophils (%) (Auto) 63.4 % Lymphocytes (%) (Auto) 22.2 % Monocytes (%) (Auto) 10.9 % Eosinophils (%) (Auto) 2.9 % Basophils (%) (Auto) 0.3 % Neutrophils # (Auto) 3.67 K/uL Lymphocytes # (Auto) 1.29 K/uL Monocytes # (Auto) 0.63 K/uL Eosinophils # (Auto) 0.17 K/uL Basophils # (Auto) 0.02 K/uL RDW Standard Deviation 45.5 fL RDW Coefficient of Variation 13.8 % Immature Granulocyte % (Auto) 0.3 % Immature Granulocyte # (Auto) 0.02 K/uL Prothrombin Time 49.9 SECONDS Prothromb Time International Ratio 4.4 Sodium Level 139 mmol/L Potassium Level 4.1 mmol/L Chloride Level 108 mmol/L Carbon Dioxide Level 22 mmol/L Anion Gap 9.0 mmol/L Blood Urea Nitrogen 33 mg/dl Creatinine 1.60 mg/dl Est Creatinine Clear Calc Drug Dose 32.8 ml/min Estimated GFR () 35.4 Estimated GFR (Non- 30.5 BUN/Creatinine Ratio 20.9 Random Glucose 58 mg/dl Calcium Level 8.6 mg/dl Bedside Glucose 67 mg/dl 75 mg/dl 160 mg/dl Test 10/10/16 16:26 10/10/16 20:39 Bedside Glucose 193 mg/dl 190 mg/dl Assessment and Plan 76yo female: 1. syncope - the fact that it happened when she sat at the side of her bed makes vasovagal / neurocardiogenic syncope likely. she could have had hypoglycemia as well but cannot prove that no evidence of ACS no evidence of serious dysrhythmia on pacer interrogation likely volume depletion in the setting of UTI contributed to this echo 05/2016 with preserved EF and fairly normal valve function PT, OT evals continue to monitor 2. rib fractures - lidoderm patches, pain meds as needed 3. bowel regimen - stimulant + miralax 4. UTI - pansensitive e. coli from 10/02/16 - on IV cipro. can transition back to orals in am. awaiting repeat urine cx for test of cure. 5. acute/chronic renal failure - acute component resolved; d/c IVF. 6. 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 7. pacemaker status for h/o SSS - pacer interrogation complete - normal function. 8. HTN - controlled. 9. supratherapeutic INR - due to use of bactrim with coumadin. Hold coumadin INR in am 10. COPD - stable, w/o exacerbation 11. CAD - no ischemic symptoms at this time 12. T2DM with hypoglycemia - latter 2nd to sulfonylurea use. In light of CKD stage 3-4 would not recommend any further sulfonylureas. Will start renal-dosed januvia. This should suffice - last a1c was 6.2%. PT, OT evals pending home tomorrow hopefully son updated Continued [facility] stay due to: multiple IV medications needed Discharge planning: home
[2016-10-11] MEDS: SITAGLIPTIN 25 MG TAB PO SCH (08:36)
[2016-10-11] MEDS: INSULIN ASPART 100 UNITS/ML 3 ML PEN SC SCH ×4 (08:43→21:55)
[2016-10-11] MEDS: WARFARIN SOD 5 MG TAB PO SCH (16:43)
[2016-10-11 16:57] LABS: URINE APPEARANCE CLEAR (CLEAR); URINE BILIRUBIN NEG (NEG); URINE COLOR YELLOW; URINE NITRITE NEG (NEG); URINE PH 5.5 (4.5-7.5); URINE SPECIFIC GRAVITY 1.016 (1.000-1.030); UROBILINOGEN NEG (NEG)
[2016-10-11 17:06] LABS: MANUAL MICROSCOPIC REQUIRED? NO; REVIEW REQ? NO
[2016-10-11] MEDS: SIMVASTATIN 20 MG TAB PO SCH (20:36)
[2016-10-11] MEDS: LIDODERM (LIDOCAINE) PATCH 5% TD SCH (20:37)
[2016-10-11] MEDS: TRAMADOL/ACETAMINOPHEN 37.5/325MG TAB PO PRN (20:46)
[2016-10-12] VITALS (8 sets, daily range): BP systolic 102–166; BP diastolic 62–83; PULSE 55–62; TEMP 36.6–36.9; O2SAT 93–97
--- NOTE | 2016-10-12 05:10 | Progress Note ---
Subjective Date of Service: late entry for visit on Oct 11, 2016. Subjective Pt evaluation today including: conversation w/ patient, physical exam, chart review, lab review, review of inpatient medication list Pain: right sided broken ribs PO Intake: fair/good Voiding: no voiding problems patient states she slept well last pm and felt good when she got up this am she received norco and then got into the chair for breakfast after moving into the chair she felt "dizzy" and simply didn't feel well she states "I feel the way I did the night before I came in here" she denies any vertigo denies fever, chills no cough or sob no abd pain denies any new neuro symptoms Problem List Medical Problems: (1) Acute renal failure Status: Acute (2) CHF (congestive heart failure) Status: Acute (3) Dyspnea on exertion Status: Acute (4) Single kidney Status: Acute (5) Syncope Status: Acute Review of Systems Constitutional: + fatigue, No fever Respiratory: No cough, No sputum, No wheezing, No shortness of breath, No dyspnea on exertion Cardiac: No chest pain, No orthopnea Abdomen: No pain, No nausea, No vomiting Neurologic: No weakness, No numbness/tingling, No vertigo, No balance problems Objective Vital Signs Date Time Temp Pulse Resp B/P (MAP) Pulse Ox O2 Delivery O2 Flow Rate FiO2 10/12/16 04:05 Room Air 10/12/16 00:05 Room Air 10/11/16 23:48 36.7 61 20 151/54 (86) 92 Room Air 10/11/16 20:00 Room Air 10/11/16 19:37 36.6 61 20 174/61 (98) 92 Room Air 10/11/16 16:00 Room Air 10/11/16 15:20 36.6 60 18 158/69 (98) 91 Room Air 10/11/16 12:00 96 Room Air 10/11/16 11:42 36.7 59 16 162/68 (99) 92 10/11/16 08:00 97 Room Air 10/11/16 07:01 36.6 59 18 176/64 (101) 97 Room Air Physical Exam General Appearance: no apparent distress ENT: pharynx normal Neck: no JVD Respiratory/Chest: lungs clear, no respiratory distress, no accessory muscle use Cardiovascular: regular rate, rhythm, no gallop, + systolic murmur (2/6 LLSB with radiation to left axillae ) Abdomen: normal bowel sounds, non tender, soft, no organomegaly Extremities: no pedal edema Neurologic/Psychiatric: no motor/sensory deficits, alert, oriented x 3, + pertinent finding (no facial droop; no dysarthria) Comments: orthostatic BPs checked during my visit - BP alicia with sitting, then with standing fell again but overall drop with standing was similar to supine BP Laboratory Results Last 24 Hours Test 10/11/16 05:26 10/11/16 07:19 10/11/16 11:25 10/11/16 16:30 Prothrombin Time 27.3 SECONDS Prothromb Time International Ratio 2.5 Sodium Level 139 mmol/L Potassium Level 4.3 mmol/L Chloride Level 108 mmol/L Carbon Dioxide Level 25 mmol/L Anion Gap 6.0 mmol/L Blood Urea Nitrogen 35 mg/dl Creatinine 1.70 mg/dl Est Creatinine Clear Calc Drug Dose 30.9 ml/min Estimated GFR () 32.9 Estimated GFR (Non- 28.4 BUN/Creatinine Ratio 20.8 Random Glucose 141 mg/dl Calcium Level 9.2 mg/dl Bedside Glucose 150 mg/dl 265 mg/dl 152 mg/dl Test 10/11/16 16:45 10/11/16 19:59 10/12/16 04:44 10/12/16 05:01 Urine Color YELLOW Urine Appearance CLEAR Urine pH 5.5 Urine Specific [place] 1.016 Urine Protein NEG Urine Glucose (UA) NEG Urine Ketones NEG Urine Occult Blood TRACE Urine Nitrite NEG Urine Bilirubin NEG Urine Urobilinogen NEG Urine Leukocyte Esterase NEG Urine WBC (Auto) 0 /hpf Urine RBC (Auto) 0-4 /hpf Urine Hyaline Casts (Auto) 0 /lpf Urine Epithelial Cells (Auto) 10-20 /lpf Urine Bacteria (Auto) NEG Bedside Glucose 162 mg/dl Assessment and Plan 76yo female: 1. syncope - the fact that it happened when she sat at the side of her bed makes vasovagal / neurocardiogenic syncope likely. she could have had hypoglycemia as well but cannot prove that no evidence of ACS no evidence of serious dysrhythmia on pacer interrogation likely volume depletion in the setting of UTI contributed to this echo 05/2016 with preserved EF and fairly normal valve function PT, OT evals reviewed -- home vs SNF recommended continue to monitor ongoing "dizziness" - related to narcotic pain meds? will stop norco, use ultram in wen check b12, cortisol in am repeat u/a and urine cx cxr in am 2. rib fractures - lidoderm patches, change norco to ultram prn - see above 3. bowel regimen - stimulant + miralax 4. UTI - pansensitive e. coli from 10/02/16 - repeat u/a today largely normal urine cx pending still stop abx 5. acute/chronic renal failure - acute component resolved; Cr at baseline 6. 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 7. pacemaker status for h/o SSS - pacer interrogation complete - normal function. 8. HTN - controlled (at least acceptable) with 5-drug regimen. 9. supratherapeutic INR - due to use of bactrim with coumadin. INR now <3 resume coumadin today INR in am 10. COPD - stable, w/o exacerbation 11. CAD - no ischemic symptoms at this time 12. T2DM with hypoglycemia - latter 2nd to sulfonylurea use. In light of CKD stage 3-4 would not recommend any further sulfonylureas. Will start renal-dosed januvia today This should suffice - last a1c was 6.2%. PT, CARIN goss appreciated home tomorrow hopefully or could need SNF Discharge planning: home
[2016-10-12 05:44] LABS: BASO % 0.6 %; BASO ABS # 0.04 K/uL (0-0.2); COMPLETE YES; EOS % 3.8 %; HEMATOCRIT 33.5 % (37-47); IG% 0.6 %; LYMPH % 20.4 %; LYMPH ABS # 1.35 K/uL (1.2-3.4); MEAN CELL VOLUME 88.2 fL (80-100); MEAN PLATELET VOLUME 9.8 fL (7.4-10.4); MONO % 10.7 %; NEUT % 63.9 %; PLATELET COUNT 170 K/uL (130-400); WHITE BLOOD COUNT 6.61 K/uL (4.8-10.8)
[2016-10-12 05:52] LABS: PROTHROMBIN TIME (PATIENT) 21.7 SECONDS (9.0-12.0)
[2016-10-12 06:10] LABS: BUN/CREATININE RATIO 24.8 (10-20); CREATININE 1.5 mg/dl (0.60-1.20); POTASSIUM 4.1 mmol/L (3.5-5.1)
[2016-10-12] MEDS: TRAMADOL/ACETAMINOPHEN 37.5/325MG TAB PO PRN ×2 (07:46→14:45)
[2016-10-12] MEDS: SENNA 8.6 MG TAB PO SCH (07:47)
[2016-10-12] MEDS: AMLODIPINE BESYLATE 5 MG TAB PO SCH (07:47)
[2016-10-12] MEDS: ISOSORBIDE MONONITRATE 30 MG TABCR PO SCH (07:47)
[2016-10-12] MEDS: GEMFIBROZIL 600 MG TAB PO SCH (07:47)
[2016-10-12] MEDS: SITAGLIPTIN 25 MG TAB PO SCH (07:48)
[2016-10-12] MEDS: BUDESONIDE/FORMOTEROL FUMARATE 160/4.5 60 PUFFS/INHALER INH SCH (07:48)
[2016-10-12] MEDS: POLYETHYLENE (MIRALAX) 17 GM PACK PO SCH (07:48)
[2016-10-12] MEDS: INSULIN ASPART 100 UNITS/ML 3 ML PEN SC SCH ×3 (08:28→17:14)
--- NOTE | 2016-10-12 09:58 | DIAGNOSTIC IMAGING REPORT ---
TWO VIEW CHEST CLINICAL HISTORY: Dyspnea. FINDINGS: PA and lateral chest radiographs are compared to study dated 06/07/2016 and correlated with chest CT dated 05/23/15. The PA view is degraded by patient rotation. A single lead cardiac pacemaker is unchanged in position and partially secures the left upper chest. The heart is enlarged and there is atherosclerotic calcification of the thoracic aorta. The pulmonary vasculature is noncongested. Emphysema and chronic interstitial thickening are unchanged. There are trace pleural effusions with bibasilar atelectasis. No airspace consolidation is seen typical for pneumonia. There is no pneumothorax. The skeletal structures are osteopenic. There are acute to subacute right posterolateral sixth and seventh rib fractures. These appear new from 06/07/2016. Degenerative change mild hyperkyphosis are noted in the thoracic spine. Surgical clips are seen in the upper abdomen. IMPRESSION: 1. Emphysema and trace pleural effusions. There is no airspace consolidation typical for pneumonia. 2. Cardiomegaly and cardiac pacemaker. There is no radiographic evidence of congestive failure. 3. There are acute to subacute right posterolateral rib fractures. These are new from 06/07/2016. Electronically signed by: Dariusz Jensen M.D. 10/12/2016 9:57 AM Dictated Date/Time: 10/12/2016 9:53 AM
[2016-10-12 15:41] LABS: MAGNESIUM 2.2 mg/dl (1.8-2.4)
[2016-10-12] MEDS: WARFARIN SOD 5 MG TAB PO SCH (16:12)
[2016-10-12] MEDS ORDERED: JNV25 PO (16:31)
[2016-10-12] MEDS ORDERED: LDDP5 TD (16:31)
[2016-10-12] MEDS ORDERED: TRAMTAB5 PO (16:31)
[2016-10-12] MEDS ORDERED: CYAN1CAP3 PO (16:31)
[2016-10-12] MEDS ORDERED: MRLP17 PO (16:31)
--- NOTE | 2016-10-12 16:52 | Discharge Instructions ---
Discharge Instructions Date of Service Oct 12, 2016. Admission Reason for Admission: Passing Out Spell (also known as "syncope") Discharge Discharge Diagnosis / Problem: 1. Syncope 2. Hypoglycemia (low blood sugar) Discharge Goals Goal(s): Learn about illness, Diagnostic testing, Therapeutic intervention Activity Recommendations Activity Limitations: as noted below Due to your rib fractures please do the following - 1. No lifting objects over 10-15 pounds 2. No strenuous yard work or household refrigerator mechanic as these will likely bother the ribs 3. No driving while taking the pain pills as these can impair your driving skills 4. Light walks and light chores, as long as they don't bother your ribs, are fine Instructions / Follow-Up Instructions / Follow-Up From Dr. Pro - 1. Rib fractures on right - * pain control - * you can take ultracet (tramadol with tylenol) - 1 tab every 6 hours as needed for pain * do NOT take extra tylenol while on the pain pills * lidoderm patches - apply up to 3 patches at site(s) of pain on right chest - leave on for 12 hours, remove for 12 hours * if you have pain that is not being relieved by the above medications please contact Dr. Headley's office * your rib fractures will take about 6 weeks to heal * continue your incentive spirometry for at least a week; this will help prevent pneumonia and keep your lungs inflated 2. Vitamin B12 deficiency - * please take vitamin B12 1000mcg once daily (1mg) for 6 months * you can buy this across the counter 3. Diabetes - * please STOP your glipizide since it was causing you to have hypoglycemia (low blood sugar) * in its place please START januvia 25mg once daily; this medication does not typically cause low blood sugars 4. Passing out spell (also known as syncope) - * this could have been precipitated by low blood sugar * other potential causes include mild dehydration, feeling poorly from your recent urinary tract infection, etc * your pacemaker was checked and found to be functioning well * it also did not reveal any harmful heart rhythm at the time of your spell * your CAT scan of the head was normal * please follow-up with your medical charge entry specialist/gl accountant in 1-2 weeks 5. High blood pressure - * you are on numerous blood pressure medications any of which can lead to low blood pressure which can then causing passing out * during your stay some of your blood pressure pills were temporarily held * please resume ALL of your heart/blood pressure medications EXCEPT for hydrochlorothiazide * again please STOP the hydrochlorothiazide for now 6. Return to [facility] if - * you have other episodes of passing out * you develop chest pain, shortness of breath, swelling in your legs, etc * you develop weakness in your arms or legs, difficulty speaking, etc 7. Follow-up - * you are scheduled to see Dr. Headley's office THIS WEEK Current Hospital Diet Patient's current hospital diet: AHA Diet (Heart Healthy), Diabetes Type 2 Diet Discharge Diet Recommended Diet: AHA Diet (Heart Healthy), Diabetes Type 2 Diet Procedures Procedures Performed: CAT scan of the brain showing no stroke or bleeding. Rib x-rays showing broken ribs on the right side (#'s 10 and 11). Chest x-ray - no pneumonia or congestive heart failure. Pending Studies Studies pending at discharge: no Medical Emergencies . Who to Call and When: Medical Emergencies: If at any time you feel your situation is an emergency, please call 911 immediately. . Non-Emergent Contact Non-Emergency issues call your: Primary Care Provider Call Non-Emergent contact if: temperature is above 100.5, your pain is not controlled, your pain is worsening, your pain is unusual for you, your pain is concerning you, you have any medication questions . . "Provider Documentation" section prepared by Max Pro. . VTE Core Measure Inpt VTE Proph given/why not?: T.E.D. Stockings, SCD's, Contraindicated
--- NOTE | 2016-10-16 21:45 | Discharge Summary ---
Discharge Summary Date of Service Oct 16, 2016. Discharge Summary Admission Date: Oct 09, 2016 at 19:40 Discharge Date: Oct 12, 2016 Discharge Disposition: Home Principal Diagnosis: syncope Problems/Secondary Diagnoses: 1. right-sided rib fractures - #10 and #11 2. vitamin B12 deficiency 3. recent UTI - resolved 4. CKD stage 3 5. T2DM with hypoglycemia 6. CAD with prior HI 1992 7. pacemaker status 8. atrial fibrillation on chronic coumadin 9. COPD 10. solitary kidney status 11. h/o left-sided nephrectomy in 1996 for renal cell carcinoma 12. HTN Immunizations: Have You Had Influenza Vaccine: Yes History of Tetanus Vaccine?: Yes History of Pneumococcal: Yes Pneumococcal Date: Dec 20, 2009 History of Hepatitis B Vaccine: Unknown Procedures: 1. CT head - negative for acute stroke/ICH. 2. pacemaker interrogation - no dysrhythmia seen; normal function; 9.5 years of battery life remaining. Consultations: PT, OT Medication Reconciliation New Medications: Cyanocobalamin (B-12) 1,000 Mcg Cap 1000 MCG PO DAILY, #30 TBS 5 Refills Lidocaine (Lidocaine) 1 Patch Tdsy 3 PATCH TD HS, #60 PATCH 1 Refill apply up to 3 patches at site(s) of pain for 12 hrs, remove for 12 hrs Polyethylene (Miralax) 17 Gm Pow 17 GM PO DAILY, #1 BTL 2 Refills Sitagliptin (Januvia) 25 Mg Tab 25 MG PO DAILY, #30 TAB 5 Refills for your diabetes Tramadol/Acetaminophen (Ultracet) 37.5 Mg/325 Mg Tab 1 TAB PO Q6H PRN for pain, #30 TAB 0 Refills Continued Medications: Amlodipine (Norvasc) 10 Mg Tab 10 MG PO DAILY Atenolol (Tenormin) 50 Mg Tab 50 MG PO BID Budesonide/Formoterol Fumarate (Symbicort 160/4.5 Inhaler ) Aero 2 PUFFS INH BID, INHALER Calcium Carbonate-Vitamin D (Calcium 600+D) 1 Tab Tab 1 TAB PO BID Cholecalciferol (Vitamin D3) 50,000 Unit Tab 70880 UNITS PO MONTHLY Docusate Sodium (Docusate Sodium) 100 Mg Tab 100 MG PO HS Gemfibrozil (Lopid) 600 Mg Tab 600 MG PO BID, 0 Refills Isosorbide Mononitrate Ext Rel (Imdur Ext Rel) 30 Mg Tabcr 90 MG PO DAILY, #90 Losartan Potassium (Cozaar) 25 Mg Tab 25 MG PO DAILY Multivitamin (Multivitamin) Tab 1 TAB PO DAILY, 0 Refills Nitroglycerin (Nitrostat) 0.4 Mg Tab 0.4 MG UT PRN, TAB TAKE ONE TABLET UNDER THE TONGUE EVERY 5 MINUTES FOR UP TO 3 DOSES, NEEDED FOR CHEST PAIN. Psyllium (Metamucil) 48.57 % Pow 1 DOSE PO HS 2 TABLESPOONS Simvastatin (Zocor) 20 Mg Tab 20 MG PO HS, 0 Refills Trimethoprim (Proloprim) 100 Mg Tab 100 MG PO HS Warfarin Sod (Coumadin) 2.5 Mg Tab 2.5 MG PO 5XWK ON FRI,FRI,FRI,,SAT Warfarin Sodium (Warfarin Sodium) 5 Mg Tab 5 MG PO 2XWK ON MONDAYS AND FRIDAYS Zolpidem Tartrate (Zolpidem Tartrate) 5 Mg Tab 5 MG PO HS, #30 Discontinued Medications: Glipizide (Glipizide) 5 Mg Tab 5 MG PO BID, #60 Hydrochlorothiazide (Hydrochlorothiazide) 25 Mg Tab 25 MG PO DAILY, #30 Sulfamethoxazole-Trimethoprim (Bactrim Ds 800MG/160MG) 1 Tab Tab 1 TAB PO BID STARTED 10/04/16 Discharge Exam Physical Exam: General Appearance: no apparent distress ENT: pharynx normal Neck: no JVD Respiratory/Chest: lungs clear, no respiratory distress, no accessory muscle use Cardiovascular: + pertinent finding (irregular, s1, s2, 2/6 systolic murmur LLSB) Abdomen / GI: normal bowel sounds, non tender, soft, no organomegaly Extremities: no pedal edema Neurologic/Psychiatric: alert, oriented x 3 Skin: + pertinent finding (ecchymoses over right upper back and flank ) Hospital Course HISTORY OF PRESENT ILLNESS: This patient is a pleasant 76-year-old female that presented to the emergency department by ambulance with complaints of a syncopal episode prior to arrival. The patient reports waking up in bed. She sat at the side of the bed for a few minutes like she usually does. That is the last thing she remembers. The next thing she knew she was on the floor. She is currently complaining of right anterior rib discomfort. She denies any shortness of breath. She does not know if she hit her head, however she does not have a headache or any facial pain. The patient denies any other symptoms prior to the event such as dizziness, lightheadedness, changes in vision, nausea, chest pain or pressure or heart palpitations. She reports eating and drinking normally over the last few days. She does however admit to not "feeling herself" yesterday. She is unable to describe this. She denies any fever or chills. She denies any flank pain or dysuria. The patient is currently being treated for urinary tract infection. She reports starting Bactrim DS approximately 3 days ago. She has taken this medication before without complications HOSPITAL COURSE: The exact etiology of the patient's brief syncopal spell was unknown but likely neurocardiogenic/vasovagal. Volume depletion in the setting of UTI could have contributed. Her volume depletion was evidenced by acute kidney injury. Admission creatinine was 2, improving to 1.5 prior to discharge. Hypoglycemia was quite possible as the cause of her spell as she had had frequent episodes of hypoglycemia in the recent past. There was no evidence of ACS. There was no evidence of serious dysrhythmia on pacemaker interrogation. During her stay telemetry showed one brief episode (5-6 beats) of either a. fib with aberrancy vs NSVT. This episode was asymptomatic. ECHO was deferred as she had a NORMAL echocardiogram in 05/2016. PT/OT evaluated the patient and both felt she was appropriate for home. Other issues addressed while here included: 1. two right-sided rib fractures - these were treated with pain medications. 2. recent UTI - the patient had 2 repeat urine cultures both of which were negative. 3. supratherapeutic INR - this was due to use of bactrim with coumadin prior to admission. Last INR prior to discharge was 2. She will resume her prior coumadin regimen with instructions to repeat the INR within 2-3 days for stability. 4. T2DM with hypoglycemia - her sulfonylurea was stopped due to her CKD and high risk of recurrent hypoglycemia. In its place we substituted renal-dosed januvia. Her glycemic control on this agent was adequate. All other medical problems remained stable while here. Total Time Spent: Greater than 30 minutes This includes examination of the patient, discharge planning, medication reconciliation, and communication with other providers. Discharge Instructions Please refer to the electronic Patient Visit Report (Discharge Instructions) for additional information. Follow-Up see Dr. Headley within 1 week Additional Copies To Kirill Marcos M.D.; Dagoberto Headley M.D.
== END 2016-10-12 17:38 | disposition home health service (06) | DRG 312 ==
LOC: C.EDB 10:13 → C.MED 19:40 → ENRESERV 20:13
PROVIDERS: ADMIT Internal Medicine; ATTEND Internal Medicine
DX: R55 Syncope and collapse (principal); N17.9 Acute kidney failure, unspecified; N39.0 Urinary tract infection, site not specified; N18.4 Chronic kidney disease, stage 4 (severe); S22.41XA Multiple fractures of ribs, right side, initial encounter for closed fracture; J44.9 Chronic obstructive pulmonary disease, unspecified; I48.91 Unspecified atrial fibrillation; R79.1 Abnormal coagulation profile; E11.649 Type 2 diabetes mellitus with hypoglycemia without coma; T37.0X5A Adverse effect of sulfonamides, initial encounter; B96.20 Unspecified Escherichia coli [E. coli] as the cause of diseases classified elsewhere; E66.9 Obesity, unspecified; I12.9 Hypertensive chronic kidney disease with stage 1 through stage 4 chronic kidney disease, or unspecified chronic kidney disease; Z90.5 Acquired absence of kidney; Z95.0 Presence of cardiac pacemaker; Z82.49 Family history of ischemic heart disease and other diseases of the circulatory system; I25.2 Old myocardial infarction; Z79.01 Long term (current) use of anticoagulants; W18.39XA Other fall on same level, initial encounter; Z87.891 Personal history of nicotine dependence

== ENCOUNTER → 2016-10-21 | Outpatient (CLI) | payer BC, OTHER ==
[~2016-10-21] MED LIST changes: -ALEN1TAB21 PO; -AMLO-110 PO; +AMLO-114 PO; -ATEN50TA PO; +ATEN50TA8 PO; +CHOL1TAB63 PO; +CYAN1CAP3 PO; +DOCU1TAB6 PO; -GLC5 PO; -HYDR25TA5 PO; +JNV25 PO; +LDDP5 TD; +LOSA1TAB PO; +MRLP17 PO; +TRAMTAB5 PO; +TRIM100T20 PO
[2016-10-21 15:47] LABS: BLOOD UREA NITROGEN 24 mg/dl (7-18); BUN/CREATININE RATIO 16.9 (10-20); CALCIUM 10.2 mg/dl (8.5-10.1); CARBON DIOXIDE 30 mmol/L (21-32); CHLORIDE 98 mmol/L (98-107); GLUCOSE 160 mg/dl (70-99); PHOSPHORUS 3.9 mg/dl (2.5-4.9); SODIUM 136 mmol/L (136-145)
== END | disposition home or self-care (01) ==
LOC: C.LAB1850 14:31
PROVIDERS: ATTEND Physician Assistant Medical
DX: N18.3 Chronic kidney disease, stage 3 (moderate) (principal)

== ENCOUNTER → 2016-12-20 | Outpatient (CLI) | payer BC ==
[2016-12-20 12:15] LABS: BASO % 0.3 %; BASO ABS # 0.02 K/uL (0-0.2); COMPLETE YES; HEMATOCRIT 39.6 % (37-47); IG% 0.5 %; LYMPH % 26.7 %; LYMPH ABS # 1.69 K/uL (1.2-3.4); MEAN CELL VOLUME 90.4 fL (80-100); MEAN CORPUSCULAR HEMOGLOBIN 29.9 pg (25-34); MEAN CORPUSCULAR HGB CONC 33.1 g/dl (32-36); MEAN PLATELET VOLUME 11.2 fL (7.4-10.4); MONO % 8.4 %; NEUT % 60.1 %; PLATELET COUNT 180 K/uL (130-400); RED BLOOD COUNT 4.38 M/uL (4.2-5.4); WHITE BLOOD COUNT 6.32 K/uL (4.8-10.8)
[2016-12-20 12:28] LABS: BLOOD UREA NITROGEN 26 mg/dl (7-18); BUN/CREATININE RATIO 18.9 (10-20); CALCIUM 9.7 mg/dl (8.5-10.1); CARBON DIOXIDE 30 mmol/L (21-32); CHLORIDE 103 mmol/L (98-107); GLUCOSE 144 mg/dl (70-99); POTASSIUM 4.2 mmol/L (3.5-5.1); SODIUM 138 mmol/L (136-145)
[2016-12-20 12:48] LABS: ESTIMATED AVERAGE GLUCOSE 143 mg/dl; HA1C FLAG Normal (Normal)
== END | disposition home or self-care (01) ==
LOC: C.LABBFT 08:11
PROVIDERS: ATTEND Internal Medicine
DX: N18.3 Chronic kidney disease, stage 3 (moderate) (principal); E11.9 Type 2 diabetes mellitus without complications

== ENCOUNTER → 2017-01-14 | Outpatient (CLI) | payer BC | END | disposition home or self-care (01) | LOC: C.MAMM 13:54 | PROVIDERS: ATTEND Internal Medicine | DX: S22.31XA Fracture of one rib, right side, initial encounter for closed fracture (principal); X58.XXXA Exposure to other specified factors, initial encounter; M85.88 Other specified disorders of bone density and structure, other site ==

== ENCOUNTER → 2017-03-12 | Outpatient (CLI) | payer BC ==
[~2017-03-12] MED LIST changes: +TRIM100T PO; -TRIM100T20 PO
[2017-03-12 12:19] LABS: MEAN CORPUSCULAR HGB CONC 33.7 g/dl (32-36); MEAN PLATELET VOLUME 11.5 fL (7.4-10.4); PLATELET COUNT 204 K/uL (130-400); RED BLOOD COUNT 4.27 M/uL (4.2-5.4); WHITE BLOOD COUNT 6.96 K/uL (4.8-10.8)
[2017-03-12 12:51] LABS: URINE APPEARANCE CLEAR (CLEAR); URINE BILIRUBIN NEG (NEG); URINE COLOR YELLOW; URINE EPITHELIAL CELL AUTO 20-30 /lpf (0-5); URINE NITRITE POS (NEG); URINE SPECIFIC GRAVITY 1.016 (1.000-1.030); UROBILINOGEN NEG (NEG)
[2017-03-12 13:09] LABS: MANUAL MICROSCOPIC REQUIRED? NO; REVIEW REQ? NO
[2017-03-12 14:15] LABS: BLOOD UREA NITROGEN 35 mg/dl (7-18); BUN/CREATININE RATIO 23.6 (10-20); CALCIUM 9.5 mg/dl (8.5-10.1); CARBON DIOXIDE 27 mmol/L (21-32); CHLORIDE 103 mmol/L (98-107); CREATININE 1.47 mg/dl (0.60-1.20); GLUCOSE 176 mg/dl (70-99); SODIUM 139 mmol/L (136-145)
[2017-03-12 14:16] LABS: PHOSPHORUS 2.8 mg/dl (2.5-4.9)
[2017-03-12 14:53] LABS: CREATININE, URINE 79.3 mg/dl; URINE PROTIEN/CREAT RATIO 0.4 (0-0.2); URINE TOTAL PROTEIN 28.1 mg/dl (0-11.9)
== END | disposition home or self-care (01) ==
LOC: C.LABBFT 08:47
PROVIDERS: ATTEND Internal Medicine Nephrology
DX: I12.9 Hypertensive chronic kidney disease with stage 1 through stage 4 chronic kidney disease, or unspecified chronic kidney disease (principal); N18.3 Chronic kidney disease, stage 3 (moderate); N25.81 Secondary hyperparathyroidism of renal origin; R31.29 Other microscopic hematuria; E55.9 Vitamin D deficiency, unspecified

== ENCOUNTER → 2017-04-08 | Outpatient (CLI) | payer BC ==
[2017-04-08 17:36] LABS: ALT/SGPT 16 U/L (12-78); BLOOD UREA NITROGEN 33 mg/dl (7-18); BUN/CREATININE RATIO 24.5 (10-20); CALCIUM 9.2 mg/dl (8.5-10.1); CARBON DIOXIDE 27 mmol/L (21-32); CHLORIDE 103 mmol/L (98-107); CREATININE 1.34 mg/dl (0.60-1.20); GLUCOSE 98 mg/dl (70-99); MAGNESIUM 2.3 mg/dl (1.8-2.4); POTASSIUM 4.1 mmol/L (3.5-5.1); SODIUM 137 mmol/L (136-145)
[2017-04-08 17:47] LABS: ALB/GLOB RATIO 0.9 (0.9-2); ALKALINE PHOSPHATASE 57 U/L (45-117); AST/SGOT 14 U/L (15-37); THYROID STIMULATING HORMONE 0.955 uIu/ml (0.300-4.500)
== END | disposition home or self-care (01) ==
LOC: C.LABBFT 11:23
PROVIDERS: ATTEND Internal Medicine
DX: R25.2 Cramp and spasm (principal)

== ENCOUNTER → 2017-05-09 | Outpatient (CLI) | payer BC | END | disposition home or self-care (01) | LOC: C.RAD1850 15:27 | DX: M54.5 Low back pain (principal) ==

== ENCOUNTER → 2017-07-15 | Outpatient (CLI) | payer BC | END | disposition home or self-care (01) | LOC: C.LABSPEC 17:12 | PROVIDERS: ATTEND Urology | DX: N39.0 Urinary tract infection, site not specified (principal) ==

== ENCOUNTER 2017-08-07 16:26 | Inpatient (IN) | payer BC, OTHER ==
[~2017-08-07] VITALS: Ht 167.6 cm; Wt 92.0 kg
[2017-08-07] VITALS (7 sets, daily range): BP systolic 155–175; BP diastolic 67–72; PULSE 60–71; TEMP 36.7; O2SAT 96–99; Ht 167.6 cm; Wt 92.0 kg
[~2017-08-07 16:26] MED LIST changes: -CALC-342 PO; -ISOS30TA35 PO; -NTRGSL/4 UT; -PSYL48.59 PO; -ZOLP5TAB6 PO
[2017-08-07] MEDS ORDERED: ALBUTEROL 0.083% NEBU SOLN 3 ML VIAL INH STA (16:40)
[2017-08-07 16:49] LABS: BASO % 0.4 %; BASO ABS # 0.03 K/uL (0-0.2); EOS % 1.1 %; EOS ABS # 0.08 K/uL (0-0.5); HEMATOCRIT 38.5 % (37-47); HEMOGLOBIN 13.1 g/dL (12.0-16.0); IG# 0.08 K/uL (0.00-0.02); LYMPH % 25.4 %; LYMPH ABS # 1.89 K/uL (1.2-3.4); MEAN CELL VOLUME 87.1 fL (80-100); MEAN CORPUSCULAR HEMOGLOBIN 29.6 pg (25-34); MEAN PLATELET VOLUME 10.3 fL (7.4-10.4); MONO % 14.7 %; MONO ABS # 1.09 K/uL (0.11-0.59); NEUT % 57.3 %; NEUT ABS # 4.27 K/uL (1.4-6.5); PLATELET COUNT 171 K/uL (130-400); RED CELL DISTRIBUTION WIDTH CV 13.4 % (11.5-14.5); RED CELL DISTRIBUTION WIDTH SD 43.1 fL (36.4-46.3); WHITE BLOOD COUNT 7.44 K/uL (4.8-10.8)
[2017-08-07] MEDS ORDERED: LEVAQUIN 750MG / 150ML D5W IV STA (16:49)
[2017-08-07 17:06] LABS: ALBUMIN 3.5 gm/dl (3.4-5.0); CALCIUM 9.1 mg/dl (8.5-10.1); CREATININE 1.64 mg/dl (0.60-1.20); POTASSIUM 3.9 mmol/L (3.5-5.1)
[2017-08-07 17:08] LABS: INR 2.5 (0.9-1.1)
--- NOTE | 2017-08-07 17:08 | DIAGNOSTIC IMAGING REPORT ---
CHEST ONE VIEW PORTABLE HISTORY: 77 years-old Female EVALUATE RESPIRATORY DISTRESS.DYSPNEA acute respiratory distress with dyspnea COMPARISON: Rib and chest radiograph 05/09/2017 TECHNIQUE: Portable AP view of the chest FINDINGS: Cardiac silhouette is enlarged, unchanged. Left subclavian pacer with lead unchanged from comparison. Atherosclerosis of the aorta. Mild pulmonary vascular congestion without overt pulmonary edema. There is no pneumothorax, large pleural effusion or lobar airspace consolidation. Subsegmental left basilar opacities favor atelectasis. Chronic healed right-sided rib fractures. Degenerative changes of the shoulders and spine. Surgical clips project over the left upper abdomen. IMPRESSION: 1. Cardiomegaly with mild pulmonary vascular congestion. 2. Subsegmental left basilar opacities favor atelectasis. 3. Healed chronic right-sided rib fractures. The above report was generated using voice recognition software. It may contain grammatical, syntax or spelling errors. Electronically signed by: Boston Padron M.D. 08/07/2017 5:06 PM Dictated Date/Time: 08/07/2017 5:04 PM
[2017-08-07 17:11] LABS: TOTAL PROTEIN 7.4 gm/dl (6.4-8.2)
[2017-08-07 17:14] LABS: PTT PATIENT 46.9 SECONDS (21.0-31.0)
[2017-08-07] MEDS ORDERED: AZIT250T PO (17:40)
[2017-08-07] MEDS ORDERED: AMLO10TA2 PO (17:40)
[2017-08-07] MEDS ORDERED: HYDR12.55 PO (17:40)
[2017-08-07] MEDS ORDERED: SITA25TA PO (17:40)
[2017-08-07] MEDS ORDERED: FUROSEMIDE 40 MG/4 ML VIAL IV STA (17:43)
[2017-08-07] MEDS ORDERED: MULT-240 PO (17:43)
[2017-08-07] MEDS ORDERED: CYAN100020 PO (17:43)
[2017-08-07] MEDS ORDERED: WARF-246 PO ×2 (17:47)
[2017-08-07 18:33] LABS: INFLUENZA B ANTIGEN Neg for Influ B (NEG)
--- NOTE | 2017-08-07 19:05 | History and Physical ---
History & Physical Date & Time of Service: Aug 07, 2017 at 19:04 Chief Complaint: Primary Care Physician: Dagoberto Headley M.D. History of Present Illness Source: patient, hospital records 77 y/o F Hx HTN, CKD III, AF - pacer, COPD, DM II, CAD. Pt developed cough fever and progressive SOB one night prior. She denies CP, N/V/D or dysuria. On arrival to the ER she exhibited moderate respiratory distress with a saturation in the 70s and required BiPAP. Initial imaging is equivocal for PNM. Labs display a degree of YUMIKO and are otherwise unremarkable. Past Medical/Surgical History 1) COPD 2) CKD III. Baseline creatinine approximately 1.0. 3) Solitary right kidney 4) Left nephrectomy in 1996 for renal cell carcinoma 5) Diabetes mellitus type 2 6) History of A. fib and sick sinus syndrome. Ventricular pacemaker May 2016 7) Hypertension 8) Coronary artery disease - AK in 1992 Surgical: 1) Cholecystectomy 2) Hysterectomy Family History Cancer FH: pneumonia Heart disease Social History Smoking Status: Former Smoker Drug Use: none Marital Status: Housing status: lives with family Occupational Status: retired Immunizations History of Influenza Vaccine: Yes History of Tetanus Vaccine?: Yes History of Pneumococcal: Yes Pneumococcal Date: Dec 20, 2009 History of Hepatitis B Vaccine: Unknown Allergies Coded Allergies: Chlorthalidone (Verified Allergy, Unknown, UNK, 10/09/16) Penicillins (Verified Allergy, Unknown, 10/09/16) Home Medications Scheduled Amlodipine Besylate (Norvasc), 10 MG PO QAM Atenolol (Tenormin), 50 MG PO QAM Azithromycin (Zithromax), 250 MG PO UD Budesonide/Formoterol Fumarate (Symbicort 160/4.5 Inhaler ), 2 PUFFS INH HS Calcium Carbonate-Vitamin D (Calcium 600+D), 1 TAB PO QAM Cyanocobalamin (Vitamin B12), 1 TAB PO QAM Docusate Sodium (Docusate Sodium), 100 MG PO HS Hydrochlorothiazide (Hydrochlorothiazide), 12.5 MG PO QAM Isosorbide Mononitrate Ext Rel (Imdur Ext Rel), 90 MG PO QAM Losartan Potassium (Cozaar), 25 MG PO QAM Multiple Vitamins W/ Minerals (Womens One Daily), 1 TAB PO QAM Psyllium (Metamucil), 1 DOSE PO HS Simvastatin (Zocor), 20 MG PO HS Sitagliptin (Januvia), 25 MG PO QAM Warfarin Sodium (Warfarin Sodium), 2.5 MG PO 4XWK Warfarin Sodium (Warfarin Sodium), 5 MG PO 3XWK [Cranberry Cap], 42 MG PO BID Scheduled PRN Nitroglycerin (Nitrostat), 0.4 MG UT UD PRN for Chest Pain Zolpidem Tartrate (Zolpidem Tartrate), 5 MG PO HS PRN for Sleep Review of Systems Constitutional: + fever, + chills, + weakness, No sweats Eyes: No worsening of vision ENT: No hearing loss, No nasal symptoms Respiratory: + cough, + sputum, + wheezing, + shortness of breath, + dyspnea on exertion, + dyspnea at rest Cardiovascular: No chest pain Abdomen: No pain, No nausea, No vomiting Musculoskeletal: No joint pain Genitourinary - Female: No dysuria, No urinary frequency Neurologic: No memory loss, No weakness Psychiatric: No depression symptoms Endocrine: No fatigue Hematologic / Lymphatic: No abnormal bleeding/bruising Integumentary: No rash Allergic / Immunologic: No environmental allergies Physical Exam Vital Signs Date Time Temp Pulse Resp B/P (MAP) Pulse Ox O2 Delivery O2 Flow Rate FiO2 08/07/17 18:30 61 21 130/58 100 BiPAP 40 08/07/17 18:20 BiPAP 40 08/07/17 18:03 61 97 40 08/07/17 16:46 Nasal Cannula 08/07/17 16:44 97 Nasal Cannula 3.0 08/07/17 16:43 30 97 Nasal Cannula 3.0 08/07/17 16:37 93 Room Air 08/07/17 16:37 36.6 63 30 157/63 93 Room Air General Appearance: WD/WN, + pertinent finding (Pleasant, elderly female - appears comfortable ) Head: normocephalic Eyes: normal inspection ENT: normal ENT inspection, pharynx normal Neck: supple, + JVD Respiratory/Chest: chest non-tender, lungs clear Cardiovascular: regular rate, rhythm, no edema, + systolic murmur Abdomen/GI: normal bowel sounds, non tender, soft Back: normal inspection, no CVA tenderness Extremities/Musculoskelatal: normal inspection Neurologic/Psych: production grader II-XII nml as tested, no motor/sensory deficits, alert, oriented x 3 Skin: normal color Diagnostics Laboratory Results Results Past 24 Hours Test 08/07/17 16:15 08/07/17 17:12 08/07/17 17:42 08/07/17 17:45 Range/Units White Blood Count 7.44 4.8-10.8 K/uL Red Blood Count 4.42 4.2-5.4 M/uL Hemoglobin 13.1 12.0-16.0 g/dL Hematocrit 38.5 37-47 % Mean Corpuscular Volume 87.1 80-100 fL Mean Corpuscular Hemoglobin 29.6 25-34 pg Mean Corpuscular Hemoglobin Concent 34.0 32-36 g/dl Platelet Count 171 130-400 K/uL Mean Platelet Volume 10.3 7.4-10.4 fL Neutrophils (%) (Auto) 57.3 % Lymphocytes (%) (Auto) 25.4 % Monocytes (%) (Auto) 14.7 % Eosinophils (%) (Auto) 1.1 % Basophils (%) (Auto) 0.4 % Neutrophils # (Auto) 4.27 1.4-6.5 K/uL Lymphocytes # (Auto) 1.89 1.2-3.4 K/uL Monocytes # (Auto) 1.09 0.11-0.59 K/uL Eosinophils # (Auto) 0.08 0-0.5 K/uL Basophils # (Auto) 0.03 0-0.2 K/uL RDW Standard Deviation 43.1 36.4-46.3 fL RDW Coefficient of Variation 13.4 11.5-14.5 % Immature Granulocyte % (Auto) 1.1 % Immature Granulocyte # (Auto) 0.08 0.00-0.02 K/uL Prothrombin Time 25.6 9.0-12.0 SECONDS Prothromb Time International Ratio 2.5 0.9-1.1 Activated Partial Thromboplast Time 46.9 21.0-31.0 SECONDS Partial Thromboplastin Ratio 1.8 Sodium Level 135 136-145 mmol/L Potassium Level 3.9 3.5-5.1 mmol/L Chloride Level 99 98-107 mmol/L Carbon Dioxide Level 29 21-32 mmol/L Anion Gap 7.0 3-11 mmol/L Blood Urea Nitrogen 36 7-18 mg/dl Creatinine 1.64 0.60-1.20 mg/dl Est Creatinine Clear Calc Drug Dose 32.2 ml/min Estimated GFR () 34.1 Estimated GFR (Non- 29.4 BUN/Creatinine Ratio 22.0 10-20 Random Glucose 134 70-99 mg/dl Calcium Level 9.1 8.5-10.1 mg/dl Total Bilirubin 0.4 0.2-1 mg/dl Aspartate Amino Transf (AST/SGOT) 22 15-37 U/L Alanine Aminotransferase (ALT/SGPT) 21 12-78 U/L Alkaline Phosphatase 55 45-117 U/L Troponin I 0.019 0-0.045 ng/ml Pro-B-Type Natriuretic Peptide 91739 0-1800 pg/ml Total Protein 7.4 6.4-8.2 gm/dl Albumin 3.5 3.4-5.0 gm/dl Globulin 3.9 2.5-4.0 gm/dl Albumin/Globulin Ratio 0.9 0.9-2 Lactic Acid Level 1.7 0.4-2.0 mmol/L Influenza Type A Antigen Neg for Influ A NEG Influenza Type B Antigen Neg for Influ B NEG Urine Color DK YELLOW Urine Appearance CLEAR CLEAR Urine pH 5.0 4.5-7.5 Urine Specific [place] 1.025 1.000-1.030 Urine Protein 1+ NEG Urine Glucose (UA) NEG NEG Urine Ketones NEG NEG Urine Occult Blood 2+ NEG Urine Nitrite NEG NEG Urine Bilirubin NEG NEG Urine Urobilinogen NEG NEG Urine Leukocyte Esterase NEG NEG Urine WBC (Auto) 1-5 0-5 /hpf Urine RBC (Auto) 5-10 0-4 /hpf Urine Hyaline Casts (Auto) 1-5 0-5 /lpf Urine Epithelial Cells (Auto) >30 0-5 /lpf Urine Bacteria (Auto) NEG NEG Urine Yeast (Auto) NONE PRSENT Microbiology Results 08/07/17 Blood Culture, Received Pending 08/07/17 Blood Culture, Received Pending 08/07/17 Urine Culture, Received Pending Diagnostic Radiology CXR: 1. Cardiomegaly with mild pulmonary vascular congestion. 2. Subsegmental left basilar opacities favor atelectasis. 3. Healed chronic right-sided rib fractures. EKG Nondiagnostic - V paced Impression Assessment and Plan 77 y/o F Hx HTN, CKD III, AF - pacer, COPD, DM II, CAD. Pt developed cough fever and progressive SOB one night prior. She denies CP, N/V/D or dysuria. On arrival to the ER she exhibited moderate respiratory distress with a saturation in the 70s and required BiPAP. Initial imaging is equivocal for PNM. Labs display a degree of YUMIKO and are otherwise unremarkable. 1) SOB/hypoxia - likely multifactorial - we will treat for the following at present - COPD and PNM - CXR is equivocal - she has a productive cough and fever. She is placed on Levaquin, steroids, nebs, 02 - BiPAP if needed - CHF - no history of such in her chart - exam is consistent with volume overload - received a dose of Lasix in the ER. She had a normal echo in 2017 - will order a limited study to assess EF and diastolic function. Would consider a noncontrast CT chest if there is no short-term improvement. We would watch her renal function AM - if this improves with Lasix it would suggest CHF as a diagnosis. 2) AF - rate is paced - INR is therapeutic on Coumadin 3) CAD - no evidence of ACS at present - cont Bblocker, Statin, Coumadin 4) CKD - Creat is above baseline - may be due to CHF - will trend for now - as above, she received diuresis 5) DM - will place on SS considering steroid use Full code - anticoagulated with Coumadin Total time for this admit including review of labs, meds, imaging, EKG, records - discussion with pt and ER attending - 48 min Advanced Directives Existing Living Will: No Existing Power of Plant Maintenance Mechanic: No Resuscitation Status VTE Prophylaxis Will order VTE Prophylaxis: Yes
[2017-08-07] MEDS ORDERED: CRANBERRY PO (19:13)
[2017-08-07] MEDS ORDERED: LEVOFLOXACIN / D5W 500 MG in PREMIXED IN D5W 100 ML IV SCH (19:30)
[2017-08-07] MEDS ORDERED: NITROGLYCERIN 0.4 MG SL PER TAB CHARGE UT PRN (19:45)
[2017-08-07] MEDS ORDERED: ALBUTEROL 0.083% NEBU SOLN 3 ML VIAL INH PRN (19:45)
[2017-08-07] MEDS ORDERED: ZOLPIDEM TARTRATE 5 MG TAB PO PRN (19:45)
[2017-08-07] MEDS ORDERED: ACETAMINOPHEN 325 MG TAB PO PRN (20:00)
[2017-08-07] MEDS ORDERED: POLYETHYLENE (MIRALAX) 17 GM PACK PO PRN (20:00)
[2017-08-07] MEDS ORDERED: NITROGLYCERIN 0.4 MG SL PER TAB CHARGE SL PRN (20:00)
[2017-08-07] MEDS ORDERED: MAGNESIUM HYDROXIDE SUSP 30 ML UDC PO PRN (20:00)
[2017-08-07] MEDS ORDERED: ONDANSETRON INJ 2 MG/ML 2 ML VIAL IV PRN (20:00)
[2017-08-07] MEDS ORDERED: MoRPHine SULFATE 2 MG/ML CARP IV PRN (20:00)
[2017-08-07] MEDS ORDERED: ALUMINUM/MAGNESIUM/SIMETH (MAALOX MAX) 30 ML UDC PO PRN (20:00)
--- NOTE | 2017-08-07 21:50 | EMERGENCY ROOM VISIT NOTE ---
History Report prepared by Diego: Rex Estrada Under the Supervision of: Dr. Mckay Godfrey D.O. First contact with patient: 16:31 Chief Complaint: RESPIRATORY PROBLEMS History of Present Illness The patient is a 77 year old female who presents to the Emergency Room with complaints of a worsening cough, congestion, and shortness of breath that she notes began on Friday, 3 days ago. She notes that her cough was producing a green mucous yesterday, but she cannot get anything up today. The patient also notes that she had a fever of 101 degrees yesterday. The nursing staff notes that she was sent in from her primary care office today where she had a oxygen saturation of 77%. The patient does not wear oxygen at baseline. She denies headache, change in vision, fevers, chest pain, nausea, vomiting, diarrhea, pain with urination, and melena. She also denies having any sick contacts recently. Source of History: patient, nursing staff Onset: 3 days ago Position: chest Quality: other (Cough, congestion) Timing: worsening Associated Symptoms: + cough, No chest pain, No nausea, No vomiting, No diarrhea Review of Systems See HPI for pertinent positives & negatives. A total of 10 systems reviewed and were otherwise negative. Past Medical & Surgical Medical Problems: (1) Bradycardia (2) CAD (coronary artery disease) (3) COPD exacerbation (4) DM (diabetes mellitus) (5) DM (diabetes mellitus) (6) HTN (hypertension) (7) HTN (hypertension) (8) HTN (hypertension) (9) Hyperlipidemia (10) Hypertension (11) Intractable back pain (12) Intractable back pain (13) Pneumonia (14) Shortness of breath (15) UTI (urinary tract infection) Family History Cancer FH: pneumonia Heart disease Social History Smoking Status: Never Smoker Drug Use: none Marital Status: Occupation Status: retired Current/Historical Medications Scheduled Amlodipine Besylate (Norvasc), 10 MG PO QAM Atenolol (Tenormin), 50 MG PO QAM Azithromycin (Zithromax), 250 MG PO UD Budesonide/Formoterol Fumarate (Symbicort 160/4.5 Inhaler ), 2 PUFFS INH HS Calcium Carbonate-Vitamin D (Calcium 600+D), 1 TAB PO QAM Cyanocobalamin (Vitamin B12), 1 TAB PO QAM Docusate Sodium (Docusate Sodium), 100 MG PO HS Hydrochlorothiazide (Hydrochlorothiazide), 12.5 MG PO QAM Isosorbide Mononitrate Ext Rel (Imdur Ext Rel), 90 MG PO QAM Losartan Potassium (Cozaar), 25 MG PO QAM Multiple Vitamins W/ Minerals (Womens One Daily), 1 TAB PO QAM Psyllium (Metamucil), 1 DOSE PO HS Simvastatin (Zocor), 20 MG PO HS Sitagliptin (Januvia), 25 MG PO QAM Warfarin Sodium (Warfarin Sodium), 2.5 MG PO 4XWK Warfarin Sodium (Warfarin Sodium), 5 MG PO 3XWK [Cranberry Cap], 42 MG PO BID Scheduled PRN Nitroglycerin (Nitrostat), 0.4 MG UT UD PRN for Chest Pain Zolpidem Tartrate (Zolpidem Tartrate), 5 MG PO HS PRN for Sleep Allergies Coded Allergies: Chlorthalidone (Verified Allergy, Unknown, UNK, 10/09/16) Penicillins (Verified Allergy, Unknown, 10/09/16) Physical Exam Vital Signs Date Time Temp Pulse Resp B/P (MAP) Pulse Ox O2 Delivery O2 Flow Rate FiO2 08/07/17 20:59 60 16 168/94 100 BiPAP 40 08/07/17 20:21 60 99 40 08/07/17 19:03 63 08/07/17 18:30 61 21 130/58 100 BiPAP 40 08/07/17 18:20 BiPAP 40 08/07/17 18:03 61 97 40 08/07/17 16:46 Nasal Cannula 08/07/17 16:44 97 Nasal Cannula 3.0 08/07/17 16:43 30 97 Nasal Cannula 3.0 08/07/17 16:37 93 Room Air 08/07/17 16:37 36.6 63 30 157/63 93 Room Air Physical Exam GENERAL: Sitting up in bed, alert, ill-appearing, well nourished, mild distress , tachypneic, talking in short sentences. EYE EXAM: normal conjunctiva. OROPHARYNX: no exudate, no erythema, lips, buccal mucosa, and tongue normal and mucous membranes are moist NECK: supple, no nuchal rigidity, no adenopathy, non-tender. No JVD. LUNGS: Diffuse rhonchi bilaterally. Normal chest wall mechanics HEART: no murmurs, S1 normal and S2 normal ABDOMEN: abdomen soft, non-tender, normo-active bowel sounds, no masses, no rebound or guarding. BACK: Back is symmetrical on inspection and there is no deformity, no midline tenderness, no CVA tenderness. SKIN: no rashes and no bruising UPPER EXTREMITIES: upper extremities are grossly normal. LOWER EXTREMITIES: Faint pitting edema. NEURO EXAM: Normal sensorium, cranial nerves II-XII grossly intact, normal speech, no gross weakness of arms, no gross weakness of legs. Medical Decision & Procedures ER Provider Diagnostic Interpretation: Radiology results as stated below per my review and the radiologist's interpretation: CHEST ONE VIEW PORTABLE HISTORY: 77 years-old Female EVALUATE RESPIRATORY DISTRESS.DYSPNEA acute respiratory distress with dyspnea COMPARISON: Rib and chest radiograph 05/09/2017 TECHNIQUE: Portable AP view of the chest FINDINGS: Cardiac silhouette is enlarged, unchanged. Left subclavian pacer with lead unchanged from comparison. Atherosclerosis of the aorta. Mild pulmonary vascular congestion without overt pulmonary edema. There is no pneumothorax, large pleural effusion or lobar airspace consolidation. Subsegmental left basilar opacities favor atelectasis. Chronic healed right-sided rib fractures. Degenerative changes of the shoulders and spine. Surgical clips project over the left upper abdomen. IMPRESSION: 1. Cardiomegaly with mild pulmonary vascular congestion. 2. Subsegmental left basilar opacities favor atelectasis. 3. Healed chronic right-sided rib fractures. The above report was generated using voice recognition software. It may contain grammatical, syntax or spelling errors. Electronically signed by: Boston Padron M.D. 08/07/2017 5:06 PM Dictated Date/Time: 08/07/2017 5:04 PM Laboratory Results 08/07/17 16:15 Red Blood Count 4.42, Mean Corpuscular Volume 87.1, Mean Corpuscular Hemoglobin 29.6, Mean Corpuscular Hemoglobin Concent 34.0, Mean Platelet Volume 10.3, Neutrophils (%) (Auto) 57.3, Lymphocytes (%) (Auto) 25.4, Monocytes (%) (Auto) 14.7, Eosinophils (%) (Auto) 1.1, Basophils (%) (Auto) 0.4, Neutrophils # (Auto ) 4.27, Lymphocytes # (Auto) 1.89, Monocytes # (Auto) 1.09, Eosinophils # (Auto ) 0.08, Basophils # (Auto) 0.03 08/07/17 16:15 Test 08/07/17 16:15 08/07/17 17:12 08/07/17 17:42 08/07/17 17:45 White Blood Count 7.44 K/uL (4.8-10.8) Red Blood Count 4.42 M/uL (4.2-5.4) Hemoglobin 13.1 g/dL (12.0-16.0) Hematocrit 38.5 % (37-47) Mean Corpuscular Volume 87.1 fL (80-100) Mean Corpuscular Hemoglobin 29.6 pg (25-34) Mean Corpuscular Hemoglobin Concent 34.0 g/dl (32-36) Platelet Count 171 K/uL (130-400) Mean Platelet Volume 10.3 fL (7.4-10.4) Neutrophils (%) (Auto) 57.3 % Lymphocytes (%) (Auto) 25.4 % Monocytes (%) (Auto) 14.7 % Eosinophils (%) (Auto) 1.1 % Basophils (%) (Auto) 0.4 % Neutrophils # (Auto) 4.27 K/uL (1.4-6.5) Lymphocytes # (Auto) 1.89 K/uL (1.2-3.4) Monocytes # (Auto) 1.09 K/uL (0.11-0.59) Eosinophils # (Auto) 0.08 K/uL (0-0.5) Basophils # (Auto) 0.03 K/uL (0-0.2) RDW Standard Deviation 43.1 fL (36.4-46.3) RDW Coefficient of Variation 13.4 % (11.5-14.5) Immature Granulocyte % (Auto) 1.1 % Immature Granulocyte # (Auto) 0.08 K/uL (0.00-0.02) Prothrombin Time 25.6 SECONDS (9.0-12.0) Prothromb Time International Ratio 2.5 (0.9-1.1) Activated Partial Thromboplast Time 46.9 SECONDS (21.0-31.0) Partial Thromboplastin Ratio 1.8 Anion Gap 7.0 mmol/L (3-11) Est Creatinine Clear Calc Drug Dose 32.2 ml/min Estimated GFR () 34.1 Estimated GFR (Non- 29.4 BUN/Creatinine Ratio 22.0 (10-20) Calcium Level 9.1 mg/dl (8.5-10.1) Total Bilirubin 0.4 mg/dl (0.2-1) Aspartate Amino Transf (AST/SGOT) 22 U/L (15-37) Alanine Aminotransferase (ALT/SGPT) 21 U/L (12-78) Alkaline Phosphatase 55 U/L (45-117) Troponin I 0.019 ng/ml (0-0.045) Pro-B-Type Natriuretic Peptide 44653 pg/ml (0-1800) Total Protein 7.4 gm/dl (6.4-8.2) Albumin 3.5 gm/dl (3.4-5.0) Globulin 3.9 gm/dl (2.5-4.0) Albumin/Globulin Ratio 0.9 (0.9-2) Lactic Acid Level 1.7 mmol/L (0.4-2.0) Influenza Type A Antigen Neg for Influ A (NEG) Influenza Type B Antigen Neg for Influ B (NEG) Urine Color DK YELLOW Urine Appearance CLEAR (CLEAR) Urine pH 5.0 (4.5-7.5) Urine Specific [place] 1.025 (1.000-1.030) Urine Protein 1+ (NEG) Urine Glucose (UA) NEG (NEG) Urine Ketones NEG (NEG) Urine Occult Blood 2+ (NEG) Urine Nitrite NEG (NEG) Urine Bilirubin NEG (NEG) Urine Urobilinogen NEG (NEG) Urine Leukocyte Esterase NEG (NEG) Urine WBC (Auto) 1-5 /hpf (0-5) Urine RBC (Auto) 5-10 /hpf (0-4) Urine Hyaline Casts (Auto) 1-5 /lpf (0-5) Urine Epithelial Cells (Auto) >30 /lpf (0-5) Urine Bacteria (Auto) NEG (NEG) Urine Yeast (Auto) (NONE PRSENT) Laboratory results per my review. Medications Administered Medications (Trade) Dose Ordered Sig/Tayler Route Start Time Stop Time Status Last Admin Dose Admin Albuterol Sulfate (Ventolin 0.083% 2.5MG/3ML Neb) 2.5 mg NOW STAT INH 08/07/17 16:40 08/07/17 16:41 DC 08/07/17 16:46 2.5 MG Levofloxacin (Levaquin / D5W) 750 mg NOW STAT IV 08/07/17 16:49 08/07/17 16:50 DC 08/07/17 17:40 750 MG Furosemide (Lasix Inj) 40 mg NOW STAT IV 08/07/17 17:43 08/07/17 17:44 DC 08/07/17 18:55 40 MG ECG Per My Interpretation Indication: SOB/dyspnea Rate (beats per minute): 60 Rhythm: other (Ventriculalry Paced) Findings: RBBB, T-wave inversion (High lateral), paced rhythm, other (LAD) ED Course ED COURSE: Vital signs were reviewed and showed normal vitals The patients medical record was reviewed The above diagnostic studies were performed and reviewed. ED treatments and interventions as stated above. 1636: The patient was evaluated in room B4B. A complete history and physical examination was performed. 1640: Ordered Albuterol Sulfate 2.5 mg INH. 1649: Ordered Levofloxacin 750 mg IV. 1743: Ordered Furosemide 40 mg IV. 1749: I discussed the case with Dr. Sherif Jacobs - [facility] Hospitalist. He will evaluate the patient for further treatment. 1752: Upon reevaluation, the patient is resting in bed.I discussed my findings with the patient and she understands and agrees with the treatment plan. Based on the patients age, coexisting illnesses, exam and lab findings the decision to treat as an inpatient was made. The patient remained stable while under my care. The patient will be evaluated for further management. Medical Decision Differential diagnoses includes but is not limited to pneumonia, bronchitis, COPD/Asthma exacerbation, pneumothorax, pulmonary embolism, congestive heart failure, acute coronary syndrome. Patient is a 77-year-old female referred in by PCPs office for being hypoxic/77 % on room air. She was placed on a Z-Fito yesterday by yesterday by cardiology. She has had a productive green cough associated with fevers of 101. Vitals show mild tachypnea pulse ox 90%. CBC along with BMP, LFTs, bilirubin and troponin were negative. BNP was significantly elevated at 23,000. Lactic acid was negative. Influenza was negative. UA was negative. Chest x-ray with pulmonary edema. Patient was fairly dyspneic and was consequently placed on BiPAP. Respiratory rate improved significantly to 18. I do believe that there is a component of fluid overload in combination with likely bronchitis. She was given a dose of antibiotics and Lasix. She was admitted to internal medicine on BiPAP. Medication Reconcilliation Current Medication List: was personally reviewed by me Blood Pressure Screening Patient's blood pressure: Normal blood pressure Consults Time Called: 1748 Consulting Physician: Dr. Sherif CAMACHO Hospitalist Returned Call: [phone] I discussed the case with Dr. Sherif CAMACHO Hospitalist. He will evaluate the patient for further treatment. Impression Primary Impression: Bronchitis Additional Impression: CHF (congestive heart failure) Critical Care I have personally spent 35 minutes of critical care time in the direct management of this patient. This includes bedside care, interpretation of diagnostic studies, and testing, discussion with consultants, patient, and family members, and other required patient management activities. This 35 minutes is in excess of all separately billable procedures. Scribe Attestation The scribe's documentation has been prepared under my direction and personally reviewed by me in its entirety. I confirm that the note above accurately reflects all work, treatment, procedures, and medical decision making performed by me. Departure Information Dispostion Being Evaluated By Hospitalist Referrals No Doctor, Assigned (PCP) Patient Instructions My [facility] Problem Qualifiers Additional Impression: CHF (congestive heart failure) Heart failure type: unspecified Heart failure chronicity: unspecified Qualified Codes: I50.9 - Heart failure, unspecified
[2017-08-07] MEDS: ALBUT/IPRATROP 3MG/0.5MG NEB 3 ML VIAL INH SCH (22:19)
[2017-08-07] MEDS ORDERED: ZOLP5TAB6 PO (22:21)
[2017-08-07] MEDS ORDERED: CALC-342 PO (22:21)
[2017-08-07] MEDS ORDERED: PSYL48.59 PO (22:21)
[2017-08-07] MEDS ORDERED: ISOS30TA35 PO (22:21)
[2017-08-07] MEDS ORDERED: NTRGSL/4 UT (22:26)
[2017-08-07] MEDS ORDERED: LEVOFLOXACIN CONSULT ACTIVE PRN (22:30)
[2017-08-07 23:31] LABS: CALCIUM 8.8 mg/dl (8.5-10.1); CREATININE 1.64 mg/dl (0.60-1.20); POTASSIUM 3.5 mmol/L (3.5-5.1)
[2017-08-07] MEDS: BUDESONIDE/FORMOTEROL FUMARATE 160/4.5 60 PUFFS/INHALER INH SCH (23:46)
[2017-08-07] MEDS: PSYLLIUM 58.6% PWD PACK S\\F PO SCH (23:47)
[2017-08-07] MEDS: DOCUSATE SODIUM 100 MG CAP PO SCH (23:47)
[2017-08-07] MEDS: SIMVASTATIN 20 MG TAB PO SCH (23:48)
[2017-08-07] MEDS: METHYLPREDNISOLONE IV 40 MG in SYRINGE 0 ML IV SCH (23:48)
[2017-08-08] VITALS (12 sets, daily range): BP systolic 151–172; BP diastolic 60–70; PULSE 60–73; TEMP 36.5–37.2; O2SAT 91–98
[2017-08-08] MEDS: ALBUT/IPRATROP 3MG/0.5MG NEB 3 ML VIAL INH SCH ×4 (01:59→18:54)
[2017-08-08] MEDS: METHYLPREDNISOLONE IV 40 MG in SYRINGE 0 ML IV SCH ×4 (05:36→22:42)
[2017-08-08 07:26] LABS: HEMATOCRIT 37.3 % (37-47); HEMOGLOBIN 12.6 g/dL (12.0-16.0); MEAN CELL VOLUME 86.9 fL (80-100); MEAN CORPUSCULAR HEMOGLOBIN 29.4 pg (25-34); MEAN CORPUSCULAR HGB CONC 33.8 g/dl (32-36); MEAN PLATELET VOLUME 10.2 fL (7.4-10.4); PLATELET COUNT 160 K/uL (130-400); RED CELL DISTRIBUTION WIDTH CV 13.4 % (11.5-14.5); RED CELL DISTRIBUTION WIDTH SD 42.9 fL (36.4-46.3); WHITE BLOOD COUNT 4.83 K/uL (4.8-10.8)
[2017-08-08 07:33] LABS: INR 3.1 (0.9-1.1)
[2017-08-08] MEDS: ISOSORBIDE MONONITRATE 30 MG TABCR PO SCH (08:04)
[2017-08-08] MEDS: AMLODIPINE BESYLATE 5 MG TAB PO SCH (08:04)
[2017-08-08 08:08] LABS: CREATININE 1.72 mg/dl (0.60-1.20); POTASSIUM 4.1 mmol/L (3.5-5.1)
--- NOTE | 2017-08-08 08:59 | Hospitalist Progress Note ---
Hospitalist Progress Note Date of Service Aug 08, 2017. (Nivia Gonzalez PA-C) Subjective Pt evaluation today including: conversation w/ patient, physical exam, chart review, lab review, review of studies Pain: None PO Intake: Good Voiding: barbosa catheter in place The patient was seen and examined this morning. Pt reports doing better today compared to yesterday. She notes her breathing is slightly better but not close to her baseline at all. She wore bipap overnight, and has been requiring 2 L O2 today, normally does not need supplemental o2. She is coughing but unable to produce sputum. Pt admits to a sore throat and nasal congestion today. She has also had a poor appetite in the past 2 days. She is unable to go more than 10 steps without feeling SOB. As far as understanding COPD, pt was unaware that she had been given this diagnosis, although does have a 20 year hx of smoking. She quit 30 years ago. Her also smoked during that time so she has significant second hand exposure. She lives at home with her one son, who is currently on a business trip to [facility]. Constitutional: + fatigue, No fever, No chills, No sweats Eyes: No redness, No discharge ENT: + nasal symptoms, + sore throat, No unusual epistaxis, No trouble swallowing Respiratory: + cough, + shortness of breath, + dyspnea on exertion, No sputum, No wheezing, No dyspnea at rest Cardiovascular: No chest pain, No palpitations Abdomen: No pain, No nausea, No vomiting, No diarrhea, No constipation Musculoskeletal: No joint pain, No muscle pain, No swelling Female : No dysuria Neurologic: + weakness, No numbness/tingling, No balance problems Psychiatric: No depression symptoms, No anxiety Endo: No fatigue Skin: No rash, No itch (Nivia Gonzalez PA-C) Objective Vital Signs Date Time Temp Pulse Resp B/P (MAP) Pulse Ox O2 Delivery O2 Flow Rate FiO2 08/08/17 08:00 Nasal Cannula 2.0 08/08/17 07:17 37.2 64 20 170/64 (99) 93 BiPAP 08/08/17 07:16 63 18 93 Nasal Cannula 2.0 08/08/17 04:22 36.6 73 20 166/70 (102) 92 Room Air 08/08/17 04:00 BiPAP 98.0 30 08/08/17 02:01 61 98 30 08/08/17 02:00 61 16 96 BiPAP/CPAP 30 08/08/17 00:00 98 BiPAP 08/08/17 00:00 BiPAP 98.0 30 08/07/17 23:37 63 22 155/67 (96) 98 BiPAP 30 08/07/17 22:57 62 98 40 08/07/17 22:20 36.7 66 20 175/72 (106) 96 BiPAP 08/07/17 22:19 71 17 96 BiPAP/CPAP 40 08/07/17 22:16 71 96 40 08/07/17 21:52 60 16 159/72 99 08/07/17 20:59 60 16 168/94 100 BiPAP 40 08/07/17 20:21 60 99 40 08/07/17 19:03 63 08/07/17 18:30 61 21 130/58 100 BiPAP 40 08/07/17 18:20 BiPAP 40 08/07/17 18:03 61 97 40 08/07/17 16:46 Nasal Cannula 08/07/17 16:44 97 Nasal Cannula 3.0 08/07/17 16:43 30 97 Nasal Cannula 3.0 08/07/17 16:37 93 Room Air 08/07/17 16:37 36.6 63 30 157/63 93 Room Air (Nivia Gonzalez, PA-C) Physical Exam General Appearance: WD/WN, no apparent distress, + obese Eyes: PERRL, EOMI, + pertinent finding (R erythematous cyst over upper eyelid, minimal edema) ENT: hearing grossly normal, pharynx normal, + pertinent finding (MMM) Neck: supple, no JVD Respiratory/Chest: no respiratory distress, no accessory muscle use, + pertinent finding (+ on 2 L via NC, coarse breath sounds with +crackles and expiratory wheeze throughout. + cough nonproductive) Cardiovascular: regular rate, rhythm (paced), no JVD, no murmur Abdomen: normal bowel sounds Extremities: non-tender, no pedal edema, no calf tenderness Neurologic/Psychiatric: alert, normal mood/affect, oriented x 3 Skin: normal color, warm/dry (Nivia Gonzalez, PA-C) Laboratory Results Last 24 Hours Test 08/07/17 16:15 08/07/17 17:12 08/07/17 17:42 08/07/17 17:45 White Blood Count 7.44 K/uL Red Blood Count 4.42 M/uL Hemoglobin 13.1 g/dL Hematocrit 38.5 % Mean Corpuscular Volume 87.1 fL Mean Corpuscular Hemoglobin 29.6 pg Mean Corpuscular Hemoglobin Concent 34.0 g/dl Platelet Count 171 K/uL Mean Platelet Volume 10.3 fL Neutrophils (%) (Auto) 57.3 % Lymphocytes (%) (Auto) 25.4 % Monocytes (%) (Auto) 14.7 % Eosinophils (%) (Auto) 1.1 % Basophils (%) (Auto) 0.4 % Neutrophils # (Auto) 4.27 K/uL Lymphocytes # (Auto) 1.89 K/uL Monocytes # (Auto) 1.09 K/uL Eosinophils # (Auto) 0.08 K/uL Basophils # (Auto) 0.03 K/uL RDW Standard Deviation 43.1 fL RDW Coefficient of Variation 13.4 % Immature Granulocyte % (Auto) 1.1 % Immature Granulocyte # (Auto) 0.08 K/uL Prothrombin Time 25.6 SECONDS Prothromb Time International Ratio 2.5 Activated Partial Thromboplast Time 46.9 SECONDS Partial Thromboplastin Ratio 1.8 Sodium Level 135 mmol/L Potassium Level 3.9 mmol/L Chloride Level 99 mmol/L Carbon Dioxide Level 29 mmol/L Anion Gap 7.0 mmol/L Blood Urea Nitrogen 36 mg/dl Creatinine 1.64 mg/dl Est Creatinine Clear Calc Drug Dose 32.2 ml/min Estimated GFR () 34.1 Estimated GFR (Non- 29.4 BUN/Creatinine Ratio 22.0 Random Glucose 134 mg/dl Calcium Level 9.1 mg/dl Total Bilirubin 0.4 mg/dl Aspartate Amino Transf (AST/SGOT) 22 U/L Alanine Aminotransferase (ALT/SGPT) 21 U/L Alkaline Phosphatase 55 U/L Troponin I 0.019 ng/ml Pro-B-Type Natriuretic Peptide 83759 pg/ml Total Protein 7.4 gm/dl Albumin 3.5 gm/dl Globulin 3.9 gm/dl Albumin/Globulin Ratio 0.9 Lactic Acid Level 1.7 mmol/L Influenza Type A Antigen Neg for Influ A Influenza Type B Antigen Neg for Influ B Urine Color DK YELLOW Urine Appearance CLEAR Urine pH 5.0 Urine Specific [place] 1.025 Urine Protein 1+ Urine Glucose (UA) NEG Urine Ketones NEG Urine Occult Blood 2+ Urine Nitrite NEG Urine Bilirubin NEG Urine Urobilinogen NEG Urine Leukocyte Esterase NEG Urine WBC (Auto) 1-5 /hpf Urine RBC (Auto) 5-10 /hpf Urine Hyaline Casts (Auto) 1-5 /lpf Urine Epithelial Cells (Auto) >30 /lpf Urine Bacteria (Auto) NEG Urine Yeast (Auto) Test 08/07/17 22:55 08/08/17 07:14 Sodium Level 134 mmol/L 133 mmol/L Potassium Level 3.5 mmol/L 4.1 mmol/L Chloride Level 98 mmol/L 97 mmol/L Carbon Dioxide Level 29 mmol/L 25 mmol/L Anion Gap 7.0 mmol/L 11.0 mmol/L Blood Urea Nitrogen 39 mg/dl 42 mg/dl Creatinine 1.64 mg/dl 1.72 mg/dl Est Creatinine Clear Calc Drug Dose 32.2 ml/min 30.2 ml/min Estimated GFR () 34.1 32.2 Estimated GFR (Non- 29.4 27.8 BUN/Creatinine Ratio 23.5 24.5 Random Glucose 122 mg/dl 224 mg/dl Calcium Level 8.8 mg/dl 9.0 mg/dl White Blood Count 4.83 K/uL Red Blood Count 4.29 M/uL Hemoglobin 12.6 g/dL Hematocrit 37.3 % Mean Corpuscular Volume 86.9 fL Mean Corpuscular Hemoglobin 29.4 pg Mean Corpuscular Hemoglobin Concent 33.8 g/dl RDW Standard Deviation 42.9 fL RDW Coefficient of Variation 13.4 % Platelet Count 160 K/uL Mean Platelet Volume 10.2 fL Prothrombin Time 31.8 SECONDS Prothromb Time International Ratio 3.1 Magnesium Level 2.4 mg/dl (Nivia Gonzalez PA-C) Assessment and Plan 77 y/o F Hx HTN, CKD III, AF - pacer, COPD, DM II, CAD. Pt developed cough fever and progressive SOB one night prior. She denies CP, N/V/D or dysuria. On arrival to the ER she exhibited moderate respiratory distress with a saturation in the 70s and required BiPAP. Initial imaging is equivocal for PNM. Labs display a degree of YUMIKO and are otherwise unremarkable. Acute on chronic respiratory failure with hypoxia - likely multifactorial COPD exacerbation Possible pneumonia - CXR reviewed showing L basilar opacities/atelectasis - no consolidation. Possibly a viral URI with sore throat, congestion, poor appetite, etc. - Cont Levaquin (started 08/07), solumedrol 40 mg Q6H IV, duone, - BiPAP worn overnight, continue as needed. - Possible component of CHF as her BNP was elevated > 94102 at time of admission - lasix administered however Cr. slightly worsened this morning. CHF - no history of such in her chart - Last Echo in 2016 normal- follow results of limited study to assess EF and diastolic function. - Would consider a noncontrast CT chest if there is no short-term improvement - Cr slightly worsened to 1.7 this morning despite diuresis - she does not appear to be volume overloaded clinically. Chronic AF s/p pacemaker insertion in 2006 for Sick sinus syndrome - rate is paced and on coumadin - INR today 3.1 - will hold coumadin tonight. Outpt dosing 2.5 alternating with 5 mg MWF. Possible that abx will potentiate INR. Follow with am lab - Follows with Dr. Marcos as an outpatient CAD - no evidence of ACS at present - cont atenolol 50 mg QAM, imdur 90 mg QAM, norvasc 10 mg,, losartan 25 mg, coumadin, simvastatin 20 mg daily CKD III s/p Left nephrectomy in 1996 d/t RCC Solitary R kidney - Creat is above baseline of 1.3-1.4, elevated to 1.72 today, follow PRP - may be due to CHF, s/p diuresis last night - no further diuresis at this time - pending echo results. DM II - will place on ISS considering steroid use - holding sitagliptin - A1C 6.6 in Dec 2016 - recheck CODE: Full DVT ppx: Coumadin Disposition: PT/OT Gustavo goss to assist with dc planning. (Nivia Gonzalez PA-C) Reviewed: Pt Seen/Exam by Me (Corrie Persaud MD) History Physician Acquisitions Assistant Supervision Note: I interviewed and examined the patient. Discussed with HOUSTON Gonzalez and agree with findings and plan as documented in the note. Any exceptions or clarifications are listed here: Patient feeling much improved, but still tight and wheezy in the chest. She is no longer coughing up any sputum. Remains afebrile here. She states that she did have leg swelling yesterday which is now improved with IV Lasix. Denies any chest pain or pressure. Discussed the case with cardiology PA who pointed out that she did have an abnormal stress echocardiogram in 2016 which showed an EF of 40% Vitals reviewed Gen: AAOx3, NAD HEENT: anicteric sclerae, EOMI CV: RRR no mgr nl S1S2 Pulm: Diminished breath sounds significantly throughout all lung sanchez, with expiratory wheezes scattered throughout Abd: +BS soft NT ND no masses or hernias Ext: no edema, large varicose veins throughout bilateral lower extremities Skin: no rashes, warm/dry Neuro: full strength throughout This patient is a 77-year-old female with a history of chronic systolic CHF, HTN , CKD stage III with solitary kidney, permanent atrial fibrillation with PPM, COPD/asthma, DM 2, CAD, who presented with cough, fever, and progressive shortness of breath 2 days, along with orthopnea and lower extremity edema. She is admitted with acute hypoxic respiratory failure, and acute exacerbation of COPD likely secondary to viral illness, as well as acute on chronic systolic CHF. -Much improved today with some diuresis and supplemental O2, initially with BiPAP. -Repeat chest x-ray today with no evidence of pneumonia -Continue Levaquin for acute bronchitis -Continue IV steroids, scheduled bronchodilators, and pulmonary toilet -Carefully watch creatinine given rise after IV Lasix yesterday, baseline creatinine around 1.4, no further diuretics at this time and she seems euvolemic -Cardiology consultation placed for improved management of her acute CHF. Documented By: Corrie Persaud (Corrie Persaud MD)
[2017-08-08] MEDS ORDERED: LOSARTAN POTASSIUM 25 MG TAB PO SCH (09:00)
[2017-08-08 09:56] LABS: HEMOGLOBIN A1C 6.8 % (4.5-5.6)
--- NOTE | 2017-08-08 12:15 | Clinical Documentation Query ---
QUERY 1 OF 2 CLINICAL DOCUMENTATION QUERY Ms. FREEMAN, In your clinical opinion is this patient being managed for: ( x ) Acute hypoxic respiratory failure ( ) Not Agree ( ) Other explanation of clinical findings (Please Explain) ( ) Unable to determine (Please Define) ( ) Need to Discuss The medical record reflects the following clinical findings, treatment, and risk factors. Clinical Indicators: Presented with respiratory rate of 30, O2 sat of 77% on RA at PCP office. Described as having mild to moderate distress, tachypnea and talking in short sentences. Treatment: O2 support/BIPAP, IV lasix, nebs, IV levaquin, IV solumedrol, ECHO, tele montioring, Risk Factors: COPD exac, pneumonia, ? CHF QUERY 2 OF 2 In your clinical opinion is this patient being managed for: ( ) Acute diastolic CHF ( ) Acute systolic CHF ( x ) Acute combined systolic and diastolic CHF ( ) Not Agree ( ) Other explanation of clinical findings (Please Explain) ( ) Unable to determine (Please Define) ( ) Need to Discuss The medical record reflects the following clinical findings, treatment, and risk factors. Clinical Indicators: 77 yo female presenting with increasing dyspnea, cough and congestion. Hypoxic with O2 sat of 77% on RA at PCP office. CXR impression includes mild pulmonary vascular congestion. BNP 16575, faint pitting edema per ER assessment Treatment: tele monitoring, ECHO pending, O2 support/BIPAP, IV lasix Risk Factors: age, CKD stage III, HTN, DM, COPD, CAD, A fib Please clarify and document your clinical opinion in the progress notes and discharge summary. Terms such as "probable", "suspected", "likely", "questionable", "possible", or "still to be ruled out" are acceptable. IF IN AGREEMENT, YOU MUST DOCUMENT ABOVE DIAGNOSTIC STATEMENT IN DAILY PROGRESS NOTES AND DISCHARGE SUMMARY. This document is not part of the patient's record. Thank You, Yanna Ho, OTF [phone]
--- NOTE | 2017-08-08 12:18 | Clinical Documentation Query ---
QUERY 1 OF [address] IYER, In your clinical opinion is this patient being managed for: ( x ) Acute hypoxic respiratory failure ( ) Not Agree ( ) Other explanation of clinical findings (Please Explain) ( ) Unable to determine (Please Define) ( ) Need to Discuss The medical record reflects the following clinical findings, treatment, and risk factors. Clinical Indicators: Presented with respiratory rate of 30, O2 sat of 77% on RA at PCP office. Described as having mild to moderate distress, tachypnea and talking in short sentences. Treatment: O2 support/BIPAP, IV lasix, nebs, IV levaquin, IV solumedrol, ECHO, tele montioring, Risk Factors: COPD exac, pneumonia, ? CHF QUERY 2 OF 2 In your clinical opinion is this patient being managed for: ( ) Acute diastolic CHF (x ) Acute systolic CHF ( ) Acute combined systolic and diastolic CHF ( ) Not Agree ( ) Other explanation of clinical findings (Please Explain) ( ) Unable to determine (Please Define) ( ) Need to Discuss The medical record reflects the following clinical findings, treatment, and risk factors. Clinical Indicators: 77 yo female presenting with increasing dyspnea, cough and congestion. Hypoxic with O2 sat of 77% on RA at PCP office. CXR impression includes mild pulmonary vascular congestion. BNP 46792, faint pitting edema per ER assessment Treatment: tele monitoring, ECHO pending, O2 support/BIPAP, IV lasix Risk Factors: age, CKD stage III, HTN, DM, COPD, CAD, A fib Please clarify and document your clinical opinion in the progress notes and discharge summary. Terms such as "probable", "suspected", "likely", "questionable", "possible", or "still to be ruled out" are acceptable. IF IN AGREEMENT, YOU MUST DOCUMENT ABOVE DIAGNOSTIC STATEMENT IN DAILY PROGRESS NOTES AND DISCHARGE SUMMARY. This document is not part of the patient's record. Thank You, Yanna Ho, RN [phone]
--- NOTE | 2017-08-08 15:59 | DIAGNOSTIC IMAGING REPORT ---
CHEST 2 VIEWS ROUTINE CLINICAL HISTORY: 77 years-old Female presenting with f/u pna. TECHNIQUE: PA and lateral views of the chest were obtained. COMPARISON: 08/07/2017. FINDINGS: Left subclavian pacer with single lead to the right ventricular apex. Atherosclerosis of the aortic arch. Moderate cardiac silhouette enlargement, unchanged. Prominence of the bilateral jhony, possibly vascular. Multiple external leads overlie the right lung base degrading evaluation in this region. Lungs and pleural spaces clear. Degenerative changes of the thoracic spine. Mild anterior vertebral body height loss of one of the lower thoracic vertebral bodies, unchanged since 10/12/2016. Old right rib fractures again noted. Surgical clips project over the upper abdomen. IMPRESSION: 1. Cardiomegaly. No other convincing evidence of acute cardiopulmonary disease. Electronically signed by: Glenn Tarango M.D. 08/08/2017 3:57 PM Dictated Date/Time: 08/08/2017 3:56 PM
[2017-08-08] MEDS ORDERED: WARFARIN SOD 2.5 MG TAB PO SCH (16:00)
[2017-08-08] MEDS ORDERED: SITAGLIPTIN 25 MG TAB PO ONE (16:30)
--- NOTE | 2017-08-08 17:57 | ECHOCARDIOGRAM REPORT ---
*NOTICE TO RECEIVING DEMOCRAT AGENCY This information is strictly Confidential and protected under [place] law. [place] law prohibits you from making any further disclosure of this information unless further disclosure is expressly permitted by the written consent of the person to whom it pertains or is authorized by law. A general authorization for the release of medical or other information is not sufficient for this purpose. Hospital accepts no responsibility if the information is made available to any other person, INCLUDING THE PATIENT. Interpretation Summary * Name: SAMI RODGERS Study Date: 08/08/2017 08:45 AM BP: 166/70 mmHg * Patient Location: [facility] HR: 75 * : 1940 (M/d/yyyy) Gender: Female Height: 66 in * Age: 77 yrs Ethnicity: CA Weight: 208 lb * Ordering Physician: Sherif Jacobs * Referring Physician: Dagoberto Headley * Performed By: Cachorro Bradford RCS * * Reason For Study: CHF * BSA: 2.0 m2 * -- Conclusions -- * 1. Normal left ventricular size and systolic function. EF 50-55%. Mild hypokinesis involving the distal and apical portions of the septal and inferior wall segments. Mild concentric left ventricular hypertrophy. * 2. The right ventricle is mildly dilated. The right ventricular systolic function is normal as assessed by tricuspid annular plane systolic excursion (TAPSE) (normal >1.5 cm). * 3. Severe biatrial dilation. * 4. Sclerotic aortic valve without significant stenosis. * 5. There is mild mitral regurgitation. * 6. There is moderate tricuspid regurgitation. * 7. Mildly elevated right ventricular systolic pressure; 45mmHg. * 8. Technically difficult study. * 9. Compared to prior study on 05/31/2016, mild wall motion abnormality noted on current study as above. Prior study however was enhanced with IV definity. Procedure Details * A complete two-dimensional transthoracic echocardiogram was performed (2D, M-mode, Doppler and color flow Doppler). Left Ventricle * Normal left ventricular size and systolic function. EF 50-55%. Mild hypokinesis involving the distal and apical portions of the septal and inferior wall segments. Mild concentric left ventricular hypertrophy. Right Ventricle * There is a pacemaker lead in the right ventricle. * The right ventricle is mildly dilated. * The right ventricular systolic function is normal as assessed by tricuspid annular plane systolic excursion (TAPSE) (normal >1.5 cm). Atria * The left atrium is severely dilated. * The right atrium is severely dilated. * There is no evidence of atrial septal defect, but resolution does not allow assessment for a patent foramen ovale. Mitral Valve * There is mild mitral annular calcification. * There is no mitral valve stenosis. * There is mild mitral regurgitation. Tricuspid Valve * There is no tricuspid stenosis. * There is moderate tricuspid regurgitation. Aortic Valve * Sclerotic aortic valve without significant stenosis. * No aortic regurgitation is present. Pulmonic Valve * The pulmonic valve is not well visualized. Great Vessels * The aortic root is normal size. * Ascending aorta of normal dimension Pericardium/Pleural * There is no pericardial effusion. Great Vessels * Dilated IVC with normal inspiratory collapse. MMode 2D Measurements and Calculations IVSd 1.2 cm IVSs 1.6 cm LVIDd 4.8 cm LVIDs 3.1 cm LVPWd 1.3 cm LVPWs 2.0 cm IVS/LVPW 0.96 FS 33.7 % EDV(Teich) 105.1 ml ESV(Teich) 39.4 ml EF(Teich) 62.5 % EDV(cubed) 107.4 ml ESV(cubed) 31.2 ml EF(cubed) 70.9 % % IVS thick 34.2 % % LVPW thick 61.4 % LV mass(C)d 226.2 grams LV mass(C)dI 111.2 grams/m\S\2 LV mass(C)s 239.0 grams LV mass(C)sI 117.5 grams/m\S\2 CO(Teich) 4.4 l/min CI(Teich) 2.2 l/min/m\S\2 SV(Teich) 65.7 ml SI(Teich) 32.3 ml/m\S\2 CO(cubed) 5.1 l/min CI(cubed) 2.5 l/min/m\S\2 SV(cubed) 76.1 ml SI(cubed) 37.4 ml/m\S\2 Ao root diam 3.1 cm Ao root area 7.4 cm\S\2 ACS 1.6 cm LA dimension 5.6 cm asc Aorta Diam 2.8 cm LA/Ao 1.8 LVAd ap4 32.3 cm\S\2 LVLd ap4 8.6 cm EDV(MOD-sp4) 106.9 ml EDV(sp4-el) 106.4 ml LVAs ap4 24.1 cm\S\2 LVLs ap4 7.7 cm ESV(MOD-sp4) 56.0 ml ESV(sp4-el) 52.9 ml EF(MOD-sp4) 47.6 % EF(sp4-el) 50.3 % LVAd ap2 34.9 cm\S\2 LVLd ap2 8.7 cm EDV(MOD-sp2) 124.0 ml EDV(sp2-el) 122.9 ml LVAs ap2 23.2 cm\S\2 LVLs ap2 7.7 cm ESV(MOD-sp2) 53.1 ml ESV(sp2-el) 51.9 ml EF(MOD-sp2) 57.2 % EF(sp2-el) 57.8 % LVLd %diff -1.94 % EDV(MOD-bp) 122.9 ml LVLs %diff 0.43 % ESV(MOD-bp) 49.7 ml EF(MOD-bp) 59.5 % CO(MOD-sp4) 3.4 l/min CI(MOD-sp4) 1.7 l/min/m\S\2 SV(MOD-sp4) 50.9 ml SI(MOD-sp4) 25.0 ml/m\S\2 CO(MOD-sp2) 4.7 l/min CI(MOD-sp2) 2.3 l/min/m\S\2 SV(MOD-sp2) 70.9 ml SI(MOD-sp2) 34.8 ml/m\S\2 CO(MOD-bp) 4.9 l/min CI(MOD-bp) 2.4 l/min/m\S\2 SV(MOD-bp) 73.2 ml SI(MOD-bp) 36.0 ml/m\S\2 CO(sp4-el) 3.6 l/min CI(sp4-el) 1.8 l/min/m\S\2 SV(sp4-el) 53.5 ml SI(sp4-el) 26.3 ml/m\S\2 CO(sp2-el) 4.8 l/min CI(sp2-el) 2.3 l/min/m\S\2 SV(sp2-el) 71.1 ml SI(sp2-el) 34.9 ml/m\S\2 Doppler Measurements and Calculations MV E max janie 121.2 cm/sec MV P1/2t max janie 113.3 cm/sec MV P1/2t 49.7 msec MVA(P1/2t) 4.4 cm\S\2 MV dec slope 668.5 cm/sec\S\2 MV dec time 0.17 sec Ao V2 max 194.6 cm/sec Ao max PG 15.2 mmHg Ao max PG (full) 10.4 mmHg Ao V2 mean 132.0 cm/sec Ao mean PG 8.0 mmHg Ao mean PG (full) 5.4 mmHg Ao V2 VTI 43.3 cm LV V1 max PG 4.8 mmHg LV V1 mean PG 2.5 mmHg LV V1 max 108.4 cm/sec LV V1 mean 73.9 cm/sec LV V1 VTI 21.3 cm SV(Ao) 319.9 ml SI(Ao) 157.3 ml/m\S\2 PA V2 max 104.8 cm/sec PA max PG 4.4 mmHg TR max janie 303.2 cm/sec RVSP(TR) 44.8 mmHg RAP systole 8.0 mmHg
[2017-08-08] MEDS: BUDESONIDE/FORMOTEROL FUMARATE 160/4.5 60 PUFFS/INHALER INH SCH (20:46)
[2017-08-08] MEDS: PSYLLIUM 58.6% PWD PACK S\\F PO SCH (20:48)
[2017-08-08] MEDS: SIMVASTATIN 20 MG TAB PO SCH (20:50)
[2017-08-08] MEDS: DOCUSATE SODIUM 100 MG CAP PO SCH (20:50)
--- NOTE | 2017-08-08 21:24 | CARDIOLOGY CONSULTATION REPORT ---
DATE OF CONSULTATION: 08/08/2017 REASON FOR CONSULTATION: 1. CHF. 2. Elevated ProBNP. HISTORY OF PRESENT ILLNESS: Mrs. Zhu is a 77-year-old white female with a history of longstanding hypertension, hypercholesterolemia, chronic atrial fibrillation, symptomatic bradycardia status post VVIR pacemaker placement in March 2017, CAD status post SC in 1992, severe COPD, and a history of a left nephrectomy for renal cell carcinoma, who presented acutely to her PCP's office on 08/07/2017 in moderate respiratory distress, and she was noted to be markedly hypoxemic with an O2 saturation in the 70s. Patient was transported via EMS from her PCP's office for evaluation at the hospital. Patient was admitted with an acute COPD exacerbation, and likely a component of CHF. Patient states that for about a day and a half, she was having some chest congestion, cough productive of thick sputum, and she thought she had a bronchitis. Unfortunately, on the day of admission, she became profoundly more short of breath, noticed some swelling in her legs, and could not find a position in which she could breathe comfortably. She was unable to lie down or even lean back in to her recliner. Patient was then placed on supplemental oxygen, received nebulizer treatments, and has been started on IV corticosteroids. Additionally, she was given a dose of Lasix 40 mg IV, and had a negative fluid balance of 530 mL total. Today, she is doing much better. She is still wheezing and coughing, but she feels much less short of breath. Additionally, her O2 sats are staying in the 90s. Patient offers no other complaints. She denies any chest pain, heaviness, tightness, pressure, or angina pectoris. Denies any shortness of breath at the present time. Denies any palpitations, tachypalpitations, syncope, or near syncope. MEDICATIONS: 1. Levofloxacin 750 mg IV q. 48 hours. 2. Januvia 25 mg q.a.m. 3. Amlodipine 10 mg daily. 4. Atenolol 50 mg every morning. 5. Imdur 90 mg q.a.m. 6. Cozaar 25 mg daily. 7. Methylprednisolone sodium succinate 40 mg IV q. 6 hours. 8. Symbicort 160/4.5 two puffs daily at bed time. 9. Zocor 20 mg at bedtime. 10. Colace 100 mg at bedtime. 11. Metamucil 1 packet at bedtime. 12. DuoNeb nebulizers q. 6 hours. 13. Tylenol p.r.n. 14. Milk of magnesia p.r.n. 15. Maalox p.r.n. 16. Zofran 4 mg IV q. 6 hours p.r.n. for nausea. 17. Sublingual nitroglycerin 0.4 mg p.r.n. 18. Morphine sulfate 2 mg IV q. 30 minutes p.r.n. for chest pain. 19. MiraLax 17 g daily as needed for constipation. 20. Ambien 5 mg at bedtime p.r.n. for sleep. 21. Albuterol nebulizers q. 4 hours p.r.n. for shortness of breath. ALLERGIES: 1. CHLORTHALIDONE. 2. PENICILLIN. Please note that she is typically on HCTZ 12.5 mg daily at home, but has not received that since she has been in the hospital. PAST MEDICAL HISTORY: 1. CAD status post SC in 1992. 2. Chronic atrial fibrillation, chronic Coumadin. 3. History of symptomatic bradycardia status post VVIR pacemaker in March 2017. 4. Severe COPD. 5. Stage III chronic kidney disease. 6. Status post left nephrectomy for renal cell carcinoma, solitary functioning kidney. 7. Type 2 diabetes mellitus. 8. History of reduced LV systolic function on stress echocardiogram in 2015. 9. Current LVEF appears to be 45% to 50%. 10. History of right renal artery stenosis. 11. History of solitary pulmonary nodule. 12. Secondary hyperparathyroidism. 13. Osteopenia. 14. Hypothyroidism. 15. History of fractured ribs. 16. Status post cholecystectomy. 17. Status post hysterectomy. SOCIAL HISTORY: Patient is , lives with family. She is retired. She previously smoked, but has not smoked in several years. FAMILY HISTORY: Significant for heart disease, cancer, pneumonia. PHYSICAL EXAMINATION: VITAL SIGNS: Temperature is 36.5 degrees Celsius, pulse 63 and slightly irregular, respiratory rate is 20, blood pressure is 150/68, SpO2 is 91% on 2 L of oxygen via nasal cannula. GENERAL: Patient is in no acute distress. HEENT: Head is atraumatic and normocephalic. EOMs intact. Sclerae are anicteric. Facies symmetric. No perioral cyanosis. Mucous membranes moist. NECK: Without obvious JVD. Jugular venous pressure is just above the clavicle sitting upright. Carotid upstrokes +2 bilaterally without obvious bruits. CHEST AND LUNGS: With reduced breath sounds throughout, diffuse inspiratory and expiratory wheezes. No crackles or rales. Breath sounds are audible in both bases. CARDIOVASCULAR: S1 and S2 are slightly irregular with a grade 2/6 basal systolic murmur which radiates to the upper chest. Also audible to left sternal border. No diastolic murmur is appreciated. No obvious gallops or rubs. EXTREMITIES: With trace pretibial edema. No clubbing or cyanosis. Intact radial pulses bilaterally. NEUROLOGIC: Patient is awake, alert, and interactive. Answers questions appropriately. Speech is clear. Normal movement in all four extremities. Gait pattern not assessed. Telemetry monitoring reveals an underlying rhythm of AFib with intermittent ventricular pacing. EKG on admission shows a ventricular paced rhythm at 60 beats per minute, pacemaker induced left bundle branch block pattern. Underlying rhythm atrial fibrillation. No acute changes noted. LABORATORY DATA: White blood cell count is 4.83, hemoglobin 12.6 g/dL, hematocrit 37.3%, and platelet count 160,000. Sodium level is 133 mmol/L, potassium 4.1 mmol/L, BUN 42 mg/dL, with creatinine of 1.72 mg/dL. Random glucose 224 mg/dL. Magnesium level is normal at 2.4. ProBNP on admission was 16997 pg/mL. Troponin I level was 0.019 ng/mL. influenza A and influenza B are both negative. Chest x-ray on admission showed cardiomegaly with mild pulmonary vascular congestion. A followup chest x-ray today shows cardiomegaly, no evidence of pulmonary edema. ASSESSMENT: 1. Acute respiratory failure with wheezing and hypoxemia, consistent with an acute on chronic COPD exacerbation. 2. She does appear to have a component of transient congestive heart failure as evidenced by a markedly elevated ProBNP, pulmonary edema on chest x-ray, possibly some Right Sided CHF, and component of LV dysfunction (school photographs detailer's echocardiogram interpretation is pending). 3. Diagnoses mentioned above. PLAN: 1. Patient appears euvolemic at this time. Caution will need to be exercised as she has a solitary functioning kidney and she has chronic kidney disease. Following a single dose of IV Lasix 40 mg, her creatinine climbed. 2. A vast majority of her symptoms appear to be related to COPD exacerbation. 3. Continue IV corticosteroids, broad-spectrum antibiotics, and nebulizer treatments. 4. She is only maintained on Symbicort 160/4.5 two puffs daily as of now. She will likely benefit by having at least a rescue inhaler and a nebulizer unit at home for her use when needed. 5. Continue Atenolol 50 mg daily. 6. Continue Imdur 90 mg daily. 7. Increase Cozaar from 25 mg daily to 50 mg daily for better blood pressure control. 8. Consider reducing or stopping amlodipine. 9. Continue Coumadin for a goal INR of 2.0 to 3.0. 10. Continue long-term simvastatin. 11. Resume HCTZ 12.5 mg daily. 12. Upon discharge, would recommend sending her home with furosemide 40 mg to be used only on an as-needed basis for weight gain, leg edema, or worsening shortness of breath. 13. Continue to monitor daily I's and O's, body weights. 14. We will continue to follow along while hospitalized. ADDENDUM BY CARDIOLOGY ATTENDING: Patient was seen and examined on day of consultation. Agree with above with following additions. She admitted to fever of 101 F. She had cough which was nonproductive. She had dyspnea with exertion and orthopnea. Her shortness of breath much improved on IV corticosteroids and nebulizer treatments. No chest pain. Exam notable for: Neck: No JVD. Cardiac: Regular. 1/6 systolic murmur. Lungs: Bilateral expiratory wheezes. Extremities: Bilateral lower extremity varicose veins. No edema. ASSESSMENT/PLAN: 1. Shortness of breath: Likely predominantly secondary to COPD exacerbation. Treatment as per primary service. Creatinine became elevated with 1 dose of IV Lasix. She appears euvolemic on exam. 2. Atrial fibrillation: Monitor INR closely while on antibiotic therapy. Continue beta-aman therapy. 3. Acute diastolic CHF: She was diuresed upon presentation and overall feels much better. Although she appears to predominantly have a COPD exacerbation, there may have been a component of diastolic CHF. She does not appear to be hypervolemic at this time however. Low-sodium diet. Can resume outpatient diuretic, HCTZ, when renal function returns to baseline. 4. Mitral and tricuspid regurgitation: Non severe. Can be followed as an outpatient. 5. Pulmonary hypertension: Mildly elevated RVSP on echocardiogram. This could be related to her COPD. 6. Disposition: Patient care was communicated with hospitalist service. Osvaldo ELENA
[2017-08-09] VITALS (15 sets, daily range): BP systolic 132–172; BP diastolic 56–80; PULSE 60–78; TEMP 36.4–36.8; O2SAT 90–99
[2017-08-09] MEDS: ALBUT/IPRATROP 3MG/0.5MG NEB 3 ML VIAL INH SCH ×4 (01:57→19:09)
[2017-08-09] MEDS: METHYLPREDNISOLONE IV 40 MG in SYRINGE 0 ML IV SCH ×4 (05:26→22:40)
[2017-08-09 07:12] LABS: INR 3.1 (0.9-1.1)
[2017-08-09 07:40] LABS: CALCIUM 8.8 mg/dl (8.5-10.1); CREATININE 2.11 mg/dl (0.60-1.20); POTASSIUM 3.8 mmol/L (3.5-5.1)
[2017-08-09] MEDS: AMLODIPINE BESYLATE 5 MG TAB PO SCH (07:48)
[2017-08-09] MEDS: ISOSORBIDE MONONITRATE 30 MG TABCR PO SCH (07:48)
[2017-08-09] MEDS ORDERED: LOSARTAN POTASSIUM 50 MG TAB PO SCH (09:00)
[2017-08-09] MEDS ORDERED: HYDROCHLOROTHIAZIDE 25 MG TAB PO SCH (09:00)
[2017-08-09] MEDS ORDERED: SITAGLIPTIN 25 MG TAB PO SCH (09:00)
--- NOTE | 2017-08-09 14:02 | Nephrology Consultation ---
Nephrology Consultation Date & Providers Date of Consultation: Aug 09, 2017. Primary Care Provider: Dagoberto Headley M.D. Referring Provider: Reason for Consultation YUMIKO/CKD History of Present Illness Ms. Cammy Zhu is a 77-year-old female with chronic kidney disease and an acquired single kidney. She follows in the nephrology clinic with Dr. Cox. Cammy was seen and evaluated this morning for evaluation of acute on chronic renal insufficiency. She describes a history of several episodes of YUMIKO in the past. These have largely been associated with hemodynamic changes. Baseline serum creatinine has been 1.3-1.4 mg/dL. Creatinine increased to 2.1 mg/dL this morning. The patient is non oliguric. Booker is draining clear yellow urine. She feels well. Metabolic profile is otherwise appropriate. She initially presented with significant respiratory symptoms including dyspnea , cough and fatigue. Treatment included a single dose of diuretics to encourage an initial negative fluid balance as well as medical therapy for COPD. TTE documented normal LV size and systolic function (EF 50%) with mild hypokinesis of the distal and apical portions of the septal and inferior wall segments with mild LVH. There is dilation of the right ventricle with severe biatrial dilation. Mild MR and moderate TR are noted. RVSP mildly elevaated at 45 mmHg. Fluid balance documented at negative 600 ml since admission. CXR documented improved pulmonary vascular congestion. Cardiomegaly without evidence of decompensated CHF is noted. Cammy underwent a left nephrectomy [place] [address] Alfredo for RCC. She has a solitary functioning R kidney with proteinuria. In December 2011, renal artery angiography was performed at [facility] documenting stenosis of 33% in the R renal artery. She has atherosclerotic cardiovascular disease. She is maintained on atenolol and anticoagulation for chronic atrial fibrillation. Cardiology consultation was obtained yesterday. Medical records were reviewed in detail. The patient describes mild subjective fevers at home prior to presentation. She denies any urinary symptoms. She denies NSAID use. Appetite has been reduced. She has not been eating or drinking well. Past Medical/Surgical History Medical: -- CKD stage III A3 (baseline creatinine 1.3 mg/dL) with a solitary R kidney. CKD attributed to hypertensiion and hyperfiltration or possible diabetic nephropathy -- s/p left nephrectomy in 1996 for RCC -- Renovascular disease as described above -- Hypertension -- DM II -- Chronic atrial fibrillation, chronic anticoagulation -- Chronic CHF, LVEF 45% -- OA/DJD -- Herniated lumbar disc/spinal stenosis -- Atherosclerotic cardiovascular disease s/p -- History of symptomatic bradycardia ---> VVIR pacemaker in March 2017 -- Severe COPD -- Secondary hyperparathyroidism -- Osteopenia -- Hypothyroidism -- History of microscopic hematuria. Renal US was negative for cyst, stone or mass. Urine cytology was negative. Cystoscopy 08/03 was negative for bladder lesion. -- Unable to tolerate MANDEEP inhibitor due to cough Surgical: Pacemaker, cholecystectomy, hysterectomy. Allergies Coded Allergies: Chlorthalidone (Verified Allergy, Unknown, UNK, 10/09/16) Penicillins (Verified Allergy, Unknown, 10/09/16) Inpatient Medications Current Inpatient Medications Medications (Trade) Dose Ordered Sig/Tayler Route Start Time Stop Time Status Last Admin Dose Admin Amlodipine Besylate (Norvasc Tab) 10 mg QAM PO 08/08/17 09:00 09/07/17 08:59 08/09/17 07:48 10 MG Atenolol (Tenormin Tab) 50 mg QAM PO 08/08/17 09:00 09/07/17 08:59 08/09/17 07:48 50 MG Budesonide/ Formoterol Fumarate (Symbicort 160/ 4.5 Inh) 2 puffs HS INH 08/07/17 21:00 09/06/17 20:59 08/08/17 20:46 2 PUFFS Isosorbide Mononitrate (Imdur Ext Rel Tab) 90 mg QAM PO 08/08/17 09:00 09/07/17 08:59 08/09/17 07:48 90 MG Nitroglycerin (Nitrostat Tab) 0.4 mg UD PRN UT 08/07/17 19:45 09/06/17 19:44 Simvastatin (Zocor Tab) 20 mg HS PO 08/07/17 21:00 09/06/17 20:59 08/08/17 20:50 20 MG Zolpidem Tartrate (Ambien Tab) 5 mg HS PRN PO 08/07/17 19:45 09/06/17 19:44 Miscellaneous Information (Order Awaiting Action) 1 ea QS N/A 08/08/17 00:00 09/07/17 00:00 Docusate Sodium (coLACE CAP) 100 mg HS PO 08/07/17 21:00 09/06/17 20:59 08/08/17 20:50 100 MG Psyllium Hydrophilic Mucilloid (Metamucil Powder) 1 pkt HS PO 08/07/17 21:00 09/06/17 20:59 08/08/17 20:48 1 PKT Albuterol/ Ipratropium (Duoneb) 3 ml Q6R INH 08/07/17 21:00 09/06/17 20:59 08/09/17 07:23 3 ML Albuterol Sulfate (Ventolin 0.083% 2.5MG/3ML Neb) 2.5 mg Q4R PRN INH 08/07/17 19:45 09/06/17 19:44 Methylprednisolone Sodium Succinate 40 mg/Syringe 0.64 ml @ 1.5 mls/min Q6H IV 08/07/17 23:00 09/06/17 21:59 08/09/17 11:08 1.5 MLS/MIN Levofloxacin 750 mg/Prmx 150 ml @ 100 mls/hr Q48H IV 08/09/17 18:00 08/14/17 23:59 Acetaminophen (Tylenol Tab) 650 mg Q4H PRN PO 08/07/17 20:00 09/06/17 19:59 Al Hydrox/Mg Hydrox/Simethicone (Maalox Max Susp) 15 ml Q4H PRN PO 08/07/17 20:00 09/06/17 19:59 Magnesium Hydroxide (Milk Of Magnesia Susp) 30 ml Q12H PRN PO 08/07/17 20:00 09/06/17 19:59 Ondansetron HCl (Zofran Inj) 4 mg Q6H PRN IV 08/07/17 20:00 09/06/17 19:59 Nitroglycerin (Nitrostat Tab) 0.4 mg UD PRN SL 08/07/17 20:00 09/06/17 19:59 Morphine Sulfate (MoRPHine SULFATE INJ) 2 mg Q30M PRN IV 08/07/17 20:00 08/21/17 19:59 Polyethylene (Miralax Powder Packet) 17 gm DAILY PRN PO 08/07/17 20:00 09/06/17 19:59 Levofloxacin (Consult) 1 ea UD PRN N/A 08/07/17 22:30 09/06/17 22:29 Sitagliptin Phosphate (Januvia Tab) 25 mg QAM PO 08/09/17 09:00 09/08/17 08:59 Future Hold 08/09/17 07:48 25 MG Family History Cancer FH: pneumonia Heart disease Social History Smoking Status: Never Smoker Drug Use: none Marital Status: Housing Status: lives with family Occupation: retired Review of Systems A complete review of systems was performed. Pertinent positives are noted above. All other systems are negative. Physical Exam Date Time Temp Pulse Resp B/P (MAP) Pulse Ox O2 Delivery O2 Flow Rate FiO2 08/09/17 12:00 Nasal Cannula 2.0 08/09/17 11:18 36.4 61 17 141/66 (91) 92 Nasal Cannula 2.0 08/09/17 08:00 92 Nasal Cannula 2.0 08/09/17 08:00 Nasal Cannula 2.0 08/09/17 07:23 76 16 93 Nasal Cannula 2.0 08/09/17 07:01 36.7 75 20 172/76 (108) 92 Nasal Cannula 2.0 08/09/17 04:00 36.6 78 20 147/80 (102) 92 Nasal Cannula 2.0 08/09/17 04:00 98 BiPAP 30 08/09/17 01:59 61 94 30 08/09/17 01:58 61 16 94 BiPAP/CPAP 30 08/09/17 00:24 36.8 70 18 144/56 (85) 91 Nasal Cannula 2.0 08/09/17 00:00 98 BiPAP 30 08/08/17 20:00 94 Nasal Cannula 2.0 08/08/17 19:50 36.6 67 14 158/70 (99) 92 Nasal Cannula 2.0 08/08/17 18:56 62 16 94 Nasal Cannula 2.0 08/08/17 16:00 Nasal Cannula 2.0 08/08/17 14:50 36.5 63 20 151/68 (95) 91 08/08/17 14:12 60 18 94 Nasal Cannula 2.0 General Appearance: + pertinent finding (Elderly, no acute distress, breathing comfortably) Head: normocephalic, atraumatic Eyes: normal inspection, sclerae normal ENT: normal ENT inspection, + pertinent finding (oral mucosa dry) Neck: supple, + pertinent finding (JVP 10+ cm) Respiratory/Chest: no respiratory distress, no accessory muscle use, + wheezing Cardiovascular: no gallop, + irregularly irregular Abdomen/GI: non tender, soft Genitourinary - Female: + pertinent finding (Booker draining yellow urine) Extremities/Musculoskelatal: normal inspection, + pedal edema, + pertinent finding (no distal cyanosis) Neurologic/Psych: alert, normal mood/affect Laboratory Results Last 24 Hours Test 08/09/17 06:43 Prothrombin Time 32.1 SECONDS Prothromb Time International Ratio 3.1 Sodium Level 130 mmol/L Potassium Level 3.8 mmol/L Chloride Level 96 mmol/L Carbon Dioxide Level 27 mmol/L Anion Gap 7.0 mmol/L Blood Urea Nitrogen 65 mg/dl Creatinine 2.11 mg/dl Est Creatinine Clear Calc Drug Dose 24.6 ml/min Estimated GFR () 25.2 Estimated GFR (Non- 21.7 BUN/Creatinine Ratio 30.7 Random Glucose 222 mg/dl Calcium Level 8.8 mg/dl Procalcitonin 0.07 ng/ml Impression (1) Acute renal insufficiency (2) CKD (chronic kidney disease), stage III (3) Single kidney (4) COPD exacerbation (5) Chronic diastolic CHF (congestive heart failure) (6) Atrial fibrillation (7) Hypertension (8) Diabetes mellitus Cammy Zhu is a 77-year-old female with CKD III A3 (baseline creatinine 1.3 mg/dL), a single acquired R kidney, renovascular disease, cardiovascular disease, hypertension, DM II, and diastolic CHF. She was admitted with a COPD exacerbation and some evidence of acute on chronic CHF. Symptoms are improving. Volume status currently appears euvolemic. She is non oliguric. UA documented a few hyaline cast as well as RBC and proteinuria. Booker is draining clear yellow urine. Creatinine has continued to rise suggestive of possible normotensive ATN. Losartan will be held. I would encourage an even fluid balance. Medications are otherwise appropriate for renal function. COPD exacerbation and bronchitis is being treated with Levaquin , methylprednisolone and bronchodilators. Recommendations YUMIKO: -- Document I/O's -- Maintain even fluid balance -- Hold ARB -- Repeat metabolic profile tomorrow AM -- Maintain Booker for next 24 hours and remove once we have seen evidence of renal recovery CKD: -- Outpatient follow up with Dr. Cox will be necessary at the time of discharge -- No current indication for [employer]; dialysis was not discussed today -- Will continue to monitor Anemia: -- Acute and chronic, no acute indication for SARBJIT at this time
--- NOTE | 2017-08-09 14:19 | Hospitalist Progress Note ---
Hospitalist Progress Note Date of Service Aug 09, 2017. Subjective Pt evaluation today including: conversation w/ patient Patient just ambulated in the hallways without oxygen and dropped to 81%. She was placed back on 2 L and recovered to 90%. She still feels very tight in the chest. She is coughing but nothing is coming up. She felt short of breath and very fatigued when her oxygen levels dropped. Telemetry with paced rhythm in the 60s-70s All Other Systems: Reviewed and Negative Objective Vital Signs Date Time Temp Pulse Resp B/P (MAP) Pulse Ox O2 Delivery O2 Flow Rate FiO2 08/09/17 12:00 Nasal Cannula 2.0 08/09/17 11:18 36.4 61 17 141/66 (91) 92 Nasal Cannula 2.0 08/09/17 08:00 92 Nasal Cannula 2.0 08/09/17 08:00 Nasal Cannula 2.0 08/09/17 07:23 76 16 93 Nasal Cannula 2.0 08/09/17 07:01 36.7 75 20 172/76 (108) 92 Nasal Cannula 2.0 08/09/17 04:00 36.6 78 20 147/80 (102) 92 Nasal Cannula 2.0 08/09/17 04:00 98 BiPAP 30 08/09/17 01:59 61 94 30 08/09/17 01:58 61 16 94 BiPAP/CPAP 30 08/09/17 00:24 36.8 70 18 144/56 (85) 91 Nasal Cannula 2.0 08/09/17 00:00 98 BiPAP 30 08/08/17 20:00 94 Nasal Cannula 2.0 08/08/17 19:50 36.6 67 14 158/70 (99) 92 Nasal Cannula 2.0 08/08/17 18:56 62 16 94 Nasal Cannula 2.0 08/08/17 16:00 Nasal Cannula 2.0 08/08/17 14:50 36.5 63 20 151/68 (95) 91 Physical Exam General Appearance: WD/WN, no apparent distress Eyes: normal inspection, sclerae normal ENT: hearing grossly normal Neck: trachea midline Respiratory/Chest: no respiratory distress, no accessory muscle use, + decreased breath sounds (Diminished throughout but slightly improved air movement from yesterday, diffuse rhonchi and wheezes) Cardiovascular: regular rate, rhythm, no murmur, + pertinent finding ( Bilateral large varicose veins of the legs) Abdomen: normal bowel sounds, non tender, soft, + pertinent finding (Booker catheter in place draining clear yellow urine) Extremities: no calf tenderness Neurologic/Psychiatric: alert, normal mood/affect, oriented x 3, + pertinent finding (Able to name the months of the year backwards correctly) Skin: normal color, warm/dry, no rash Laboratory Results Last 24 Hours Test 08/09/17 06:43 Prothrombin Time 32.1 SECONDS Prothromb Time International Ratio 3.1 Sodium Level 130 mmol/L Potassium Level 3.8 mmol/L Chloride Level 96 mmol/L Carbon Dioxide Level 27 mmol/L Anion Gap 7.0 mmol/L Blood Urea Nitrogen 65 mg/dl Creatinine 2.11 mg/dl Est Creatinine Clear Calc Drug Dose 24.6 ml/min Estimated GFR () 25.2 Estimated GFR (Non- 21.7 BUN/Creatinine Ratio 30.7 Random Glucose 222 mg/dl Calcium Level 8.8 mg/dl Procalcitonin 0.07 ng/ml Assessment and Plan This patient is a 77-year-old female with a history of chronic systolic CHF, HTN , CKD stage III with solitary kidney, permanent atrial fibrillation with PPM, COPD/asthma, DM 2, CAD, who presented with cough, fever, and progressive shortness of breath 2 days, along with orthopnea and lower extremity edema. She is admitted with acute hypoxic respiratory failure, and acute exacerbation of COPD likely secondary to viral illness, as well as acute on chronic systolic CHF. Acute on chronic respiratory failure with hypoxia/dyspnea/acute COPD/asthma exacerbation-also contributing is some acute on chronic systolic CHF. Was on BiPAP on admission. Remains on oxygen but is weaning down. Still with pulse ox to the low 80s without oxygen with ambulation today. Remains with persistent significant wheezing and poor air movement. Pro calcitonin negative. - CXR reviewed showing L basilar opacities/atelectasis - no consolidation. - Cont Levaquin 7 day course for bronchitis (started 08/07) -Continue solumedrol 40 mg Q6H IV and taper down as able to-not ready today -Continue duonebs, 02 and wean down as tolerated -Continue home Symbicort -Will need 2 step prior to discharge Acute on chronic systolic CHF -stress echo from 2015 shows EF of 40%, however echo here now with EF low normal 50-55%, elevated right-sided pressures. Received 1 dose of IV Lasix in the ER. Had a BNP of 22,000 on admission, chest x-ray only with mild pulmonary vascular congestion. Now appears euvolemic. She was given her home HCTZ dose this morning, but creatinine continues to rise. -Holding off on further diuretics at this time, hold home HCTZ -Hold losartan -Is on atenolol -Appreciate cardiology consultation Chronic AF s/p pacemaker insertion in 2006 for Sick sinus syndrome - rate is paced and on coumadin - INR today again 3.1 - will continue to hold coumadin tonight. Outpt dosing 2.5 alternating with 5 mg MWF. Possible that abx will potentiate INR. -Follow PT/INR -Continue beta-aman CAD - no evidence of ACS at present - cont atenolol 50 mg QAM, imdur 90 mg QAM, norvasc 10 mg, holding losartan 25 mg, continue simvastatin 20 mg daily HTN-stable -Continue cardiac meds as above Acute kidney injury in the setting of CKD III. Baseline creatinine 1.3-1.4. Creatinine continues to rise after 1 dose of IV Lasix given on admission. Creatinine today is 2.11, sodium slightly low at 130. She is nonoliguric s/p Left nephrectomy in 1996 d/t RCC Solitary R kidney -Continue Booker catheter for at least 24 more hours to accurately assess urine output -Appreciate nephrology consultation -Follow PRP -Avoid nephrotoxins -Renally dose medications -Avoid diuretics as above DM II, not on long-term insulin, well controlled. Hemoglobin A1c here is 6.8% -Okay to continue home sitagliptin -Did not have sliding scale insulin her Accu-Cheks ordered-ordered those today CODE: Full DVT ppx: Coumadin Disposition: PT/OT evals, remain in the hospital for at least 1-2 more days for COPD exacerbation ongoing
[2017-08-09] MEDS ORDERED: GLUCAGON FOR INJ 1 MG VIAL SQ PRN (14:45)
[2017-08-09] MEDS ORDERED: GLUCOSE 10 TABS/TUBE PO PRN (14:45)
[2017-08-09] MEDS ORDERED: GLUCOSE 40% GEL 15 GM TUBE PO PRN (14:45)
[2017-08-09] MEDS ORDERED: DEXTROSE 50% 50 ML SYR IV PRN (14:45)
[2017-08-09] MEDS ORDERED: INSULIN GLARGINE SOLOSTAR 100 UNITS/ML 3 ML PEN SC ONE (14:53)
[2017-08-09] MEDS: INSULIN ASPART 100 UNITS/ML 3 ML PEN SC SCH ×2 (17:39→21:42)
[2017-08-09] MEDS ORDERED: LEVOFLOXACIN / D5W 750 MG in PREMIXED IN D5W 150 ML IV SCH (18:00)
[2017-08-09] MEDS: PSYLLIUM 58.6% PWD PACK S\\F PO SCH (21:36)
[2017-08-09] MEDS: DOCUSATE SODIUM 100 MG CAP PO SCH (21:38)
[2017-08-09] MEDS: BUDESONIDE/FORMOTEROL FUMARATE 160/4.5 60 PUFFS/INHALER INH SCH (21:38)
[2017-08-09] MEDS: SIMVASTATIN 20 MG TAB PO SCH (21:38)
[2017-08-09] MEDS: INSULIN GLARGINE SOLOSTAR 100 UNITS/ML 3 ML PEN SC SCH (21:43)
[2017-08-10] VITALS (10 sets, daily range): BP systolic 125–174; BP diastolic 60–77; PULSE 60–89; TEMP 36.3–36.8; O2SAT 91–96
[2017-08-10] MEDS: ALBUT/IPRATROP 3MG/0.5MG NEB 3 ML VIAL INH SCH ×4 (03:00→20:40)
[2017-08-10] MEDS: METHYLPREDNISOLONE IV 40 MG in SYRINGE 0 ML IV SCH ×3 (04:30→22:03)
[2017-08-10] MEDS: AMLODIPINE BESYLATE 5 MG TAB PO SCH (04:31)
[2017-08-10] MEDS: ISOSORBIDE MONONITRATE 30 MG TABCR PO SCH (04:31)
[2017-08-10 07:29] LABS: INR 2.5 (0.9-1.1)
[2017-08-10 07:55] LABS: CALCIUM 8.7 mg/dl (8.5-10.1); CREATININE 2.02 mg/dl (0.60-1.20)
[2017-08-10] MEDS: INSULIN ASPART 100 UNITS/ML 3 ML PEN SC SCH ×4 (08:07→21:50)
[2017-08-10 08:47] LABS: POTASSIUM RANDOM URINE 39.3 mEq/L
[2017-08-10] MEDS: INSULIN GLARGINE SOLOSTAR 100 UNITS/ML 3 ML PEN SC SCH ×2 (09:12→21:51)
--- NOTE | 2017-08-10 10:12 | Nephrology Progress Note ---
Nephrology Progress Note Date of Service Aug 10, 2017. Chief Complaint YUMIKO/CKD Subjective Cammy feels well this morning. She notes increased blood pressure overnight. She also notes difficulty sleeping due to RLS. Breathing remains comfortable. Activity tolerance is good. No fevers or chills. No chest pain or palpitations. Cough productive of thick sputum. Cammy reports difficulty clearing secretions. Review of Systems A complete review of systems was performed. Pertinent positives are noted above. All other systems are negative. Vital Signs Last 8 Hrs Date Time Temp Pulse Resp B/P (MAP) Pulse Ox O2 Delivery O2 Flow Rate FiO2 08/10/17 08:00 Nasal Cannula 2.0 08/10/17 07:30 36.6 64 18 125/66 (85) 94 Nasal Cannula 3.0 08/10/17 07:22 89 16 95 Nasal Cannula 2.0 08/10/17 04:47 36.5 60 18 174/77 (109) 91 Nasal Cannula 3.0 08/10/17 04:00 Nasal Cannula 2.0 Last Recorded Weight Weight (Kilograms): 94.200 Physical Exam General Appearance: + thin, + pertinent finding (elderly) Head: normocephalic, atraumatic Eyes: normal inspection, sclerae normal ENT: normal ENT inspection, pharynx normal Neck: supple Respiratory/Chest: + decreased breath sounds (improved), + wheezing (improving , some rhonchi persist R>L) Cardiovascular: no gallop, + irregularly irregular Abdomen/GI: non tender, soft Genitourinary - Female: + pertinent finding (Booker draining yellow urine) Extremities/Musculoskelatal: no pedal edema, + pertinent finding (LE varicosities) Neurologic/Psych: alert, normal mood/affect Family History Cancer FH: pneumonia Heart disease Social History Smoking Status: Former smoker Drug Use: none Marital Status: Housing Status: lives with family Occupation: retired Laboratory Results Past 24 Hours 08/10/17 06:59 Test 08/09/17 15:54 08/09/17 20:17 08/10/17 00:00 08/10/17 06:59 Bedside Glucose 204 mg/dl (70-90) 278 mg/dl (70-90) Urine Osmolality 446 mOms/kg (500-800) Urine Random Sodium 110 mEq/L Urine Random Potassium 39.3 mEq/L Prothrombin Time 25.4 SECONDS (9.0-12.0) Prothromb Time International Ratio 2.5 (0.9-1.1) Anion Gap 8.0 mmol/L (3-11) Est Creatinine Clear Calc Drug Dose 26.1 ml/min Estimated GFR () 26.5 Estimated GFR (Non- 22.9 BUN/Creatinine Ratio 41.1 (10-20) Calcium Level 8.7 mg/dl (8.5-10.1) Magnesium Level 2.7 mg/dl (1.8-2.4) Test 08/10/17 07:45 Bedside Glucose 206 mg/dl (70-90) Allergies Coded Allergies: Chlorthalidone (Verified Allergy, Unknown, UNK, 10/09/16) Penicillins (Verified Allergy, Unknown, 10/09/16) Medications Current Inpatient Medications Medications (Trade) Dose Ordered Sig/Tayler Route Start Time Stop Time Status Last Admin Dose Admin Amlodipine Besylate (Norvasc Tab) 10 mg QAM PO 08/08/17 09:00 09/07/17 08:59 08/10/17 04:31 10 MG Atenolol (Tenormin Tab) 50 mg QAM PO 08/08/17 09:00 09/07/17 08:59 08/10/17 04:31 50 MG Budesonide/ Formoterol Fumarate (Symbicort 160/ 4.5 Inh) 2 puffs HS INH 08/07/17 21:00 09/06/17 20:59 08/09/17 21:38 2 PUFFS Isosorbide Mononitrate (Imdur Ext Rel Tab) 90 mg QAM PO 08/08/17 09:00 09/07/17 08:59 08/10/17 04:31 90 MG Simvastatin (Zocor Tab) 20 mg HS PO 08/07/17 21:00 09/06/17 20:59 08/09/17 21:38 20 MG Zolpidem Tartrate (Ambien Tab) 5 mg HS PRN PO 08/07/17 19:45 09/06/17 19:44 Miscellaneous Information (Order Awaiting Action) 1 ea QS N/A 08/08/17 00:00 09/07/17 00:00 Docusate Sodium (coLACE CAP) 100 mg HS PO 08/07/17 21:00 09/06/17 20:59 08/09/17 21:38 100 MG Psyllium Hydrophilic Mucilloid (Metamucil Powder) 1 pkt HS PO 08/07/17 21:00 09/06/17 20:59 08/09/17 21:36 1 PKT Albuterol/ Ipratropium (Duoneb) 3 ml Q6R INH 08/07/17 21:00 09/06/17 20:59 08/10/17 06:58 3 ML Albuterol Sulfate (Ventolin 0.083% 2.5MG/3ML Neb) 2.5 mg Q4R PRN INH 08/07/17 19:45 09/06/17 19:44 Methylprednisolone Sodium Succinate 40 mg/Syringe 0.64 ml @ 1.5 mls/min Q6H IV 08/07/17 23:00 09/06/17 21:59 08/10/17 04:30 1.5 MLS/MIN Levofloxacin 750 mg/Prmx 150 ml @ 100 mls/hr Q48H IV 08/09/17 18:00 08/14/17 23:59 08/09/17 17:38 100 MLS/HR Acetaminophen (Tylenol Tab) 650 mg Q4H PRN PO 08/07/17 20:00 09/06/17 19:59 Al Hydrox/Mg Hydrox/Simethicone (Maalox Max Susp) 15 ml Q4H PRN PO 08/07/17 20:00 09/06/17 19:59 Magnesium Hydroxide (Milk Of Magnesia Susp) 30 ml Q12H PRN PO 08/07/17 20:00 09/06/17 19:59 Ondansetron HCl (Zofran Inj) 4 mg Q6H PRN IV 08/07/17 20:00 09/06/17 19:59 Nitroglycerin (Nitrostat Tab) 0.4 mg UD PRN SL 08/07/17 20:00 09/06/17 19:59 Morphine Sulfate (MoRPHine SULFATE INJ) 2 mg Q30M PRN IV 08/07/17 20:00 08/21/17 19:59 Polyethylene (Miralax Powder Packet) 17 gm DAILY PRN PO 08/07/17 20:00 09/06/17 19:59 Levofloxacin (Consult) 1 ea UD PRN N/A 08/07/17:30 09/06/17 22:29 Sitagliptin Phosphate (Januvia Tab) 25 mg QAM PO 08/09/17 09:00 09/08/17 08:59 Future Hold 08/09/17 07:48 25 MG Insulin Aspart (novoLOG ASPART) SLIDING SCALE If C... ACHS SC 08/09/17 16:30 09/08/17 16:29 08/10/17 08:07 5 UNITS Glucose (Glucose 40% Gel) 15-30 GRAMS 15 GRAMS... UD PRN PO 08/09/17 14:45 09/08/17 14:44 Glucose (Glucose Chew Tab) 4-8 Tablets 4 Tabl... UD PRN PO 08/09/17 14:45 09/08/17 14:44 Dextrose (Dextrose 50% 50ML Syringe) 25-50ML OF 50% DW IV FOR... UD PRN IV 08/09/17 14:45 09/08/17 14:44 Glucagon (Glucagon Inj) 1 mg UD PRN SQ 08/09/17 14:45 09/08/17 14:44 Insulin Glargine (Lantus Solostar Pen) 5 units HS SC 08/09/17 21:00 09/08/17 20:59 08/09/17 21:43 5 UNITS Insulin Glargine (Lantus Solostar Pen) 10 units QAM SC 08/10/17 09:00 09/09/17 08:59 08/10/17 09:12 10 UNITS Warfarin Sodium (Coumadin Tab) 2.5 mg DAILY@16 PO 08/10/17 16:00 09/09/17 15:59 Impression (1) Acute renal insufficiency (2) CKD (chronic kidney disease), stage III (3) Single kidney (4) COPD exacerbation (5) Chronic diastolic CHF (congestive heart failure) (6) Atrial fibrillation (7) Hypertension (8) Diabetes mellitus Cammy Zhu is a 77-year-old female with CKD III A3 (baseline creatinine 1.3 mg/dL), a single acquired R kidney, renovascular disease, cardiovascular disease, hypertension, DM II, and diastolic CHF. She was admitted with a COPD exacerbation and some acute on chronic CHF. Volume status currently appears slightly hypervolemic today. Increasing hyponatremia in setting of high fluid intake and low solute intake with hypervolemia. Urine studies reviewed this morning. Plan to start a low dose loop diuretic to encourage slightly negative fluid balance. Continue to avoid thiazide diuretics. UA documented a few hyaline cast as well as RBC and proteinuria. YUMIKO consistent with prerenal azotemia and normotensive ATN. Losartan has been held.Medications are otherwise appropriate for renal function. Recommendations YUMIKO: -- Document I/O's -- Encourage slightly negative fluid balance -- Hold ARB -- Repeat metabolic profile tomorrow AM -- Remove Booker Hyponatremia: -- Fluid restriction of 1.2 L/d -- Start low dose loop diuretic CKD: -- Outpatient follow up with Dr. Cox will be necessary at the time of discharge Anemia: -- Acute and chronic, no acute indication for SARBJIT at this time
[2017-08-10] MEDS ORDERED: FUROSEMIDE 20 MG TAB PO STA (10:13)
[2017-08-10] MEDS: GUAIFENESIN 600 MG TABCR PO SCH ×2 (14:28→21:24)
--- NOTE | 2017-08-10 16:29 | Progress Note ---
Subjective Date of Service: Aug 10, 2017. Subjective Pt evaluation today including: conversation w/ patient, physical exam, chart review, lab review, review of studies (echo, cxr, etc), review of inpatient medication list Pain: denies PO Intake: slowly improving Voiding: barbosa catheter in place tele overnight with pacing pt "feels a lot better" with respect to cough, wheezing, dyspnea no chest pain or tightness no abd pain or diarrhea Problem List Medical Problems: (1) Acute renal failure Status: Acute (2) Bronchitis Status: Acute (3) CHF (congestive heart failure) Status: Acute (4) CHF (congestive heart failure) Status: Acute (5) Dyspnea on exertion Status: Acute (6) Single kidney Status: Acute (7) Syncope Status: Acute Review of Systems Constitutional: No fever, No chills Respiratory: No dyspnea at rest Cardiac: No chest pain, No orthopnea, No PND, No edema Abdomen: No pain Objective Vital Signs Date Time Temp Pulse Resp B/P (MAP) Pulse Ox O2 Delivery O2 Flow Rate FiO2 08/10/17 15:44 36.8 64 19 165/70 (101) 94 Nasal Cannula 3.0 08/10/17 14:06 85 16 93 Nasal Cannula 2.0 08/10/17 12:02 36.3 65 18 146/67 (93) 92 Nasal Cannula 3.0 08/10/17 12:00 Nasal Cannula 2.0 08/10/17 08:00 Nasal Cannula 2.0 08/10/17 07:30 36.6 64 18 125/66 (85) 94 Nasal Cannula 3.0 08/10/17 07:22 89 16 95 Nasal Cannula 2.0 08/10/17 04:47 36.5 60 18 174/77 (109) 91 Nasal Cannula 3.0 08/10/17 04:00 Nasal Cannula 2.0 08/10/17 00:00 Nasal Cannula 2.0 08/09/17 23:32 36.4 60 18 154/64 (94) 91 Nasal Cannula 2.0 08/09/17 20:00 Nasal Cannula 2.0 08/09/17 19:09 64 16 94 Nasal Cannula 2.0 08/09/17 18:22 36.7 61 17 139/62 (87) 94 Nasal Cannula 2.0 Physical Exam General Appearance: no apparent distress ENT: pharynx normal Neck: no JVD Respiratory/Chest: no respiratory distress, no accessory muscle use, + wheezing (particularly the upper lobes) Cardiovascular: + pertinent finding (irregular, s1, s2, no murmur) Abdomen: normal bowel sounds, non tender, soft, no organomegaly Extremities: no pedal edema Neurologic/Psychiatric: alert, oriented x 3 Laboratory Results Last 24 Hours Test 08/09/17 20:17 08/10/17 00:00 08/10/17 06:59 08/10/17 07:45 Bedside Glucose 278 mg/dl 206 mg/dl Urine Osmolality 446 mOms/kg Urine Random Sodium 110 mEq/L Urine Random Potassium 39.3 mEq/L Prothrombin Time 25.4 SECONDS Prothromb Time International Ratio 2.5 Sodium Level 128 mmol/L Potassium Level 4.0 mmol/L Chloride Level 93 mmol/L Carbon Dioxide Level 27 mmol/L Anion Gap 8.0 mmol/L Blood Urea Nitrogen 83 mg/dl Creatinine 2.02 mg/dl Est Creatinine Clear Calc Drug Dose 26.1 ml/min Estimated GFR () 26.5 Estimated GFR (Non- 22.9 BUN/Creatinine Ratio 41.1 Random Glucose 214 mg/dl Calcium Level 8.7 mg/dl Magnesium Level 2.7 mg/dl Test 08/10/17 11:44 Bedside Glucose 214 mg/dl Assessment and Plan 77yo female with: 1. acute hypoxic respiratory failure - likely combination of COPD exacerbation & acute/chronic CHF - latter resolved, former resolving. 2. COPD exacerbation - cut steroids to q12h dosing today. Cont nebs, symbicort. Add mucinex & incentive spirometry. Wean o2 if sats >90%. Day #4/7 of levaquin. 3. acute/chronic systolic CHF - acute component resolved; creatinine has risen in the midst of diuresis; holding IV diuretics. Cont BB. Holding ARB due to acute kidney injury. 4. acute kidney injury - 2nd to over-diuresis? Holding diuretics and ARB for now; nephrology consult pending. Daily BMP. 5. CKD stage 3 - baseline is about 1.4. Daily BMP. 6. a. fib on chronic coumadin - INR today is 2.5 - resume warfarin and obtain daily INR. 7. uncontrolled T2DM - add lantus 10 units qam; cont HS lantus 5 units and adjust accordingly. 8. hyponatremia - acute, as Na at admission was 135. Has occurred in setting of diuresis, acute kidney injury, etc. Repeat BMP in am. 9. pacemaker status, placed 2006 due to SSS - noted. 10. CAD - echo this admission with new wall motion abnormality but no ischemic symptoms at this time. Cont BB, imdur, statin. Uncertain why she is not on aspirin therapy - will inquire with patient. 11. HTN - continue all meds but hold ARB due to acute kidney injury. 12. 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 Now with acute kidney injury - defer management to nephrology. 13. DVT proph - coumadin. PT, OT evals wean o2 Continued [facility] stay due to: multiple IV medications needed, other (acute kidney injury) Discharge planning: uncertain
[2017-08-10] MEDS: WARFARIN SOD 2.5 MG TAB PO SCH (16:34)
[2017-08-10] MEDS ORDERED: SODIUM CHLORIDE 0.65% NA SOLN 45 ML (OCEAN) ONE (16:39)
[2017-08-10] MEDS: PSYLLIUM 58.6% PWD PACK S\\F PO SCH (21:23)
[2017-08-10] MEDS: DOCUSATE SODIUM 100 MG CAP PO SCH (21:23)
[2017-08-10] MEDS: SIMVASTATIN 20 MG TAB PO SCH (21:24)
[2017-08-10] MEDS: BUDESONIDE/FORMOTEROL FUMARATE 160/4.5 60 PUFFS/INHALER INH SCH (21:51)
[2017-08-11] VITALS (12 sets, daily range): BP systolic 116–182; BP diastolic 67–82; PULSE 62–74; TEMP 36.5–36.7; O2SAT 92–96
[2017-08-11 06:02] LABS: INR 1.9 (0.9-1.1)
[2017-08-11 06:31] LABS: CALCIUM 8.6 mg/dl (8.5-10.1); CREATININE 1.82 mg/dl (0.60-1.20); POTASSIUM 4.3 mmol/L (3.5-5.1)
[2017-08-11] MEDS: ALBUT/IPRATROP 3MG/0.5MG NEB 3 ML VIAL INH SCH ×2 (07:19→19:04)
[2017-08-11] MEDS: AMLODIPINE BESYLATE 5 MG TAB PO SCH (08:06)
[2017-08-11] MEDS: ISOSORBIDE MONONITRATE 30 MG TABCR PO SCH (08:06)
[2017-08-11] MEDS: GUAIFENESIN 600 MG TABCR PO SCH ×2 (08:06→20:51)
[2017-08-11] MEDS: INSULIN ASPART 100 UNITS/ML 3 ML PEN SC SCH ×4 (08:08→21:20)
[2017-08-11] MEDS: INSULIN GLARGINE SOLOSTAR 100 UNITS/ML 3 ML PEN SC SCH ×2 (08:09→21:19)
[2017-08-11] MEDS: LEVOFLOXACIN 750 MG TAB PO SCH (11:10)
[2017-08-11] MEDS: METHYLPREDNISOLONE IV 40 MG in SYRINGE 0 ML IV SCH ×2 (11:10→22:30)
--- NOTE | 2017-08-11 13:23 | CARDIOLOGY PROGRESS NOTE ---
DATE: 08/11/2017 SUBJECTIVE: Mrs. Zhu is resting comfortably in the bedside chair without complaints of chest pain. Her dyspnea and cough are improving. OBJECTIVE: VITAL SIGNS: Blood pressure 150/73 with an irregular pulse of 66. Respiratory rate is 18. The patient is afebrile at 36.7 degrees Celsius. Saturations 94% on 2 L nasal cannula. NECK: Supple with full carotid upstrokes. There are no carotid bruits. Jugular venous pressure is flat at 90 degrees. There is no thyromegaly. CARDIOVASCULAR EXAMINATION: Reveals an irregular rhythm with distant heart sounds. No obvious murmurs. LUNGS: Note occasional rhonchi, but no rales or wheezes. ABDOMEN: Obese without bruits. EXTREMITIES: Reveal intact radial artery pulse bilaterally. There is no peripheral edema. DATA: CBC notes hemoglobin of 12.6, hematocrit 37.3, white count 4.8, platelet count 160,000. Electrolytes show sodium of 143, potassium 4.3, chloride 97, bicarb 27, BUN 81, creatinine 1.82, glucose 211. 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 IMPRESSION AND PLAN: 1. Respiratory failure -- likely secondary to [id number] COPD with a component of hypervolemia. She is now euvolemic. Continue with intravenous antibiotics, steroids, Mucinex, and her nebulizers. 2. Coronary artery disease -- status post [place] in 1992. Quiescent on medical management. 3. Permanent atrial fibrillation -- on chronic Coumadin therapy. 4. VVI pacemaker -- inserted for symptomatic bradycardia back in March 2017. 5. Chronic renal failure, status post left nephrectomy for renal cell carcinoma. 6. Mild left ventricular dysfunction -- resolved. 7. Diabetes mellitus.
--- NOTE | 2017-08-11 13:29 | Nephrology Progress Note ---
Nephrology Progress Note Date of Service Aug 11, 2017. Chief Complaint YUMIKO/CKD Subjective No acute events overnight. Cammy is feeling well this afternoon. She is out of bed. She reports continued improvement in dyspnea and activity tolerance. Appetite is good. No fevers or chills. No chest pain or palpitations. Voiding urine without difficulty. Review of Systems A complete review of systems was performed. Pertinent positives are noted above. All other systems are negative. Vital Signs Last 8 Hrs Date Time Temp Pulse Resp B/P (MAP) Pulse Ox O2 Delivery O2 Flow Rate FiO2 08/11/17 12:10 Nasal Cannula 2.0 08/11/17 11:11 36.7 66 18 150/73 (98) 94 Nasal Cannula 3.0 08/11/17 08:00 94 Nasal Cannula 1.0 08/11/17 07:07 67 16 94 Nasal Cannula 2.0 08/11/17 06:52 36.6 69 18 182/69 (106) 92 Nasal Cannula 2.0 Last Recorded Weight Weight (Kilograms): 94.100 Physical Exam General Appearance: no apparent distress, + obese Head: normocephalic, atraumatic Eyes: normal inspection, sclerae normal ENT: normal ENT inspection, pharynx normal Neck: supple, no JVD Respiratory/Chest: no respiratory distress, no accessory muscle use, + wheezing Cardiovascular: regular rate, rhythm, no gallop Abdomen/GI: non tender, soft Extremities/Musculoskelatal: normal inspection, no pedal edema Neurologic/Psych: alert, normal mood/affect Family History Cancer FH: pneumonia Heart disease Social History Smoking Status: Former smoker Drug Use: none Marital Status: Housing Status: lives with family Occupation: retired Laboratory Results Past 24 Hours 08/11/17 05:43 Test 08/10/17 16:52 08/10/17 20:47 08/11/17 05:43 08/11/17 07:46 Bedside Glucose 183 mg/dl (70-90) 219 mg/dl (70-90) 195 mg/dl (70-90) Prothrombin Time 19.7 SECONDS (9.0-12.0) Prothromb Time International Ratio 1.9 (0.9-1.1) Anion Gap 10.0 mmol/L (3-11) Est Creatinine Clear Calc Drug Dose 29.0 ml/min Estimated GFR () 30.1 Estimated GFR (Non- 26.0 BUN/Creatinine Ratio 44.4 (10-20) Calcium Level 8.6 mg/dl (8.5-10.1) Test 08/11/17 11:45 Bedside Glucose 203 mg/dl (70-90) Allergies Coded Allergies: Chlorthalidone (Verified Allergy, Unknown, UNK, 10/09/16) Penicillins (Verified Allergy, Unknown, 10/09/16) Medications Current Inpatient Medications Medications (Trade) Dose Ordered Sig/Tayler Route Start Time Stop Time Status Last Admin Dose Admin Amlodipine Besylate (Norvasc Tab) 10 mg QAM PO 08/08/17 09:00 09/07/17 08:59 08/11/17 08:06 10 MG Atenolol (Tenormin Tab) 50 mg QAM PO 08/08/17 09:00 09/07/17 08:59 08/11/17 08:06 50 MG Budesonide/ Formoterol Fumarate (Symbicort 160/ 4.5 Inh) 2 puffs HS INH 08/07/17 21:00 09/06/17 20:59 08/10/17 21:51 2 PUFFS Isosorbide Mononitrate (Imdur Ext Rel Tab) 90 mg QAM PO 08/08/17 09:00 09/07/17 08:59 08/11/17 08:06 90 MG Simvastatin (Zocor Tab) 20 mg HS PO 08/07/17 21:00 09/06/17 20:59 08/10/17 21:24 20 MG Zolpidem Tartrate (Ambien Tab) 5 mg HS PRN PO 08/07/17 19:45 09/06/17 19:44 Miscellaneous Information (Order Awaiting Action) 1 ea QS N/A 08/08/17 00:00 09/07/17 00:00 Docusate Sodium (coLACE CAP) 100 mg HS PO 08/07/17 21:00 09/06/17 20:59 08/10/17 21:23 100 MG Psyllium Hydrophilic Mucilloid (Metamucil Powder) 1 pkt HS PO 08/07/17 21:00 09/06/17 20:59 08/10/17 21:23 1 PKT Albuterol/ Ipratropium (Duoneb) 3 ml Q6R INH 08/07/17 21:00 09/06/17 20:59 08/10/17 20:40 3 ML Albuterol Sulfate (Ventolin 0.083% 2.5MG/3ML Neb) 2.5 mg Q4R PRN INH 08/07/17 19:45 09/06/17 19:44 Acetaminophen (Tylenol Tab) 650 mg Q4H PRN PO 08/07/17 20:00 09/06/17 19:59 Al Hydrox/Mg Hydrox/Simethicone (Maalox Max Susp) 15 ml Q4H PRN PO 08/07/17 20:00 09/06/17 19:59 Magnesium Hydroxide (Milk Of Magnesia Susp) 30 ml Q12H PRN PO 08/07/17 20:00 09/06/17 19:59 Ondansetron HCl (Zofran Inj) 4 mg Q6H PRN IV 08/07/17 20:00 09/06/17 19:59 Nitroglycerin (Nitrostat Tab) 0.4 mg UD PRN SL 08/07/17 20:00 09/06/17 19:59 Morphine Sulfate (MoRPHine SULFATE INJ) 2 mg Q30M PRN IV 08/07/17 20:00 08/21/17 19:59 Polyethylene (Miralax Powder Packet) 17 gm DAILY PRN PO 08/07/17 20:00 09/06/17 19:59 Sitagliptin Phosphate (Januvia Tab) 25 mg QAM PO 08/09/17 09:00 09/08/17 08:59 Future Hold 08/09/17 07:48 25 MG Insulin Aspart (novoLOG ASPART) SLIDING SCALE If C... ACHS SC 08/09/17 16:30 09/08/17 16:29 08/11/17 12:11 6 UNITS Glucose (Glucose 40% Gel) 15-30 GRAMS 15 GRAMS... UD PRN PO 08/09/17 14:45 09/08/17 14:44 Glucose (Glucose Chew Tab) 4-8 Tablets 4 Tabl... UD PRN PO 08/09/17 14:45 09/08/17 14:44 Dextrose (Dextrose 50% 50ML Syringe) 25-50ML OF 50% DW IV FOR... UD PRN IV 08/09/17 14:45 5/21/18 14:44 Glucagon (Glucagon Inj) 1 mg UD PRN SQ 08/09/17 14:45 09/08/17 14:44 Insulin Glargine (Lantus Solostar Pen) 5 units HS SC 08/09/17 21:00 09/08/17 20:59 08/10/17 21:51 5 UNITS Insulin Glargine (Lantus Solostar Pen) 10 units QAM SC 08/10/17 09:00 09/09/17 08:59 08/11/17 08:09 10 UNITS Warfarin Sodium (Coumadin Tab) 2.5 mg DAILY@16 PO 08/10/17 16:00 09/09/17 15:59 08/10/17 16:34 2.5 MG Methylprednisolone Sodium Succinate 40 mg/Syringe 0.64 ml @ 1.5 mls/min Q12H IV 08/10/17 23:00 09/06/17 21:59 08/11/17 11:10 1.5 MLS/MIN Guaifenesin (Mucinex Contr Rel Tab) 1,200 mg Q12 PO 08/10/17 13:30 09/09/17 13:29 08/11/17 08:06 1,200 MG Levofloxacin (Levaquin Tab) 750 mg Q2D@11 PO 08/11/17 11:00 08/13/17 23:59 08/11/17 11:10 750 MG Impression (1) Acute renal insufficiency (2) CKD (chronic kidney disease), stage III (3) Single kidney (4) COPD exacerbation (5) Chronic diastolic CHF (congestive heart failure) (6) Atrial fibrillation (7) Hypertension (8) Diabetes mellitus Cammy Zuh is a 77-year-old female with CKD III A3 (baseline creatinine 1.3 mg/dL), a single acquired R kidney, renovascular disease, cardiovascular disease, hypertension, DM II, and diastolic CHF. She was admitted with a COPD exacerbation and acute on chronic CHF. Volume status currently appears appropriate. She had adequate diuresis with furosemide 20 mg PO yesterday. I would consider continuing a low dose loop diuretic to encourage event to slightly negative fluid balance. Avoid thiazide diuretics. UA documented a few hyaline cast as well as RBC and proteinuria. This can be repeated in the future now that Booker has been removed. YUMIKO consistent with prerenal azotemia and normotensive ATN. Losartan has been held.Medications are otherwise appropriate for renal function. Recommendations YUMIKO: -- Document I/O's -- Encourage even to slightly negative fluid balance -- Hold ARB -- Repeat metabolic profile tomorrow AM Hyponatremia: -- Fluid restriction of 1.2 L/d -- Low dose loop diuretic to encourage slightly negative fluid balance CKD: -- Outpatient follow up with Dr. Cox will be necessary at the time of discharge
[2017-08-11] MEDS: WARFARIN SOD 2.5 MG TAB PO SCH (15:30)
[2017-08-11] MEDS: BUDESONIDE/FORMOTEROL FUMARATE 160/4.5 60 PUFFS/INHALER INH SCH (20:50)
[2017-08-11] MEDS: SIMVASTATIN 20 MG TAB PO SCH (20:50)
[2017-08-11] MEDS: PSYLLIUM 58.6% PWD PACK S\\F PO SCH (20:51)
[2017-08-11] MEDS: DOCUSATE SODIUM 100 MG CAP PO SCH (20:51)
--- NOTE | 2017-08-11 23:08 | Progress Note ---
Subjective Date of Service: Aug 11, 2017. Subjective Pt evaluation today including: conversation w/ patient, conversation w/ family (son at bedside), physical exam, chart review, lab review, review of inpatient medication list Pain: denies PO Intake: fair at best Voiding: no voiding problems tele stable overnight; no dysrhythmia reported (did have early in the day yesterday a nonpaced, wide complex rhythm at about rate of 60bpm) pacer interrogation not done yet patient reports long-standing "bronchitis" and had PFTs and visits with Dr. Pena "years ago" she doesn't recall a formal dx of COPD but has been on symbicort for about 1 year she was a long-time smoker in the past and her was heavy smoker too she continues to improve overall feeling less dyspneic than a few days ago still with cough Problem List Medical Problems: (1) Acute renal failure Status: Acute (2) Bronchitis Status: Acute (3) CHF (congestive heart failure) Status: Acute (4) CHF (congestive heart failure) Status: Acute (5) Dyspnea on exertion Status: Acute (6) Single kidney Status: Acute (7) Syncope Status: Acute Review of Systems Constitutional: No fever, No chills Cardiac: No chest pain, No orthopnea Abdomen: No pain Objective Vital Signs Date Time Temp Pulse Resp B/P (MAP) Pulse Ox O2 Delivery O2 Flow Rate FiO2 08/11/17 20:00 Nasal Cannula 2.0 08/11/17 19:38 36.5 64 18 167/67 (100) 96 Oxymask 2.0 08/11/17 19:04 64 16 92 Room Air 08/11/17 16:00 93 Nasal Cannula 2.0 08/11/17 15:32 36.5 74 18 116/82 (93) 92 Nasal Cannula 2.5 08/11/17 13:37 71 16 95 Nasal Cannula 2.0 08/11/17 12:10 Nasal Cannula 2.0 08/11/17 11:11 36.7 66 18 150/73 (98) 94 Nasal Cannula 3.0 08/11/17 08:00 94 Nasal Cannula 1.0 08/11/17 07:07 67 16 94 Nasal Cannula 2.0 08/11/17 06:52 36.6 69 18 182/69 (106) 92 Nasal Cannula 2.0 08/11/17 04:28 36.6 62 20 165/68 (100) 93 Nasal Cannula 2.0 08/11/17 04:00 93 Nasal Cannula 2.0 08/11/17 00:30 92 Nasal Cannula 2.0 08/11/17 00:30 93 Nasal Cannula 2.0 Physical Exam General Appearance: no apparent distress ENT: pharynx normal Neck: no JVD Respiratory/Chest: no respiratory distress, no accessory muscle use, + pertinent finding (course BS b/l with wheezes and fair airation only) Cardiovascular: no gallop, no murmur, + irregularly irregular Abdomen: normal bowel sounds, non tender, soft, no organomegaly Extremities: no pedal edema Neurologic/Psychiatric: alert, oriented x 3 Laboratory Results Last 24 Hours Test 08/11/17 05:43 08/11/17 07:46 08/11/17 11:45 08/11/17 16:51 Prothrombin Time 19.7 SECONDS Prothromb Time International Ratio 1.9 Sodium Level 134 mmol/L Potassium Level 4.3 mmol/L Chloride Level 97 mmol/L Carbon Dioxide Level 27 mmol/L Anion Gap 10.0 mmol/L Blood Urea Nitrogen 81 mg/dl Creatinine 1.82 mg/dl Est Creatinine Clear Calc Drug Dose 29.0 ml/min Estimated GFR () 30.1 Estimated GFR (Non- 26.0 BUN/Creatinine Ratio 44.4 Random Glucose 211 mg/dl Calcium Level 8.6 mg/dl Bedside Glucose 195 mg/dl 203 mg/dl 181 mg/dl Test 08/11/17 20:59 Bedside Glucose 228 mg/dl Assessment and Plan 77yo female with: 1. acute hypoxic respiratory failure - likely combination of COPD exacerbation & acute/chronic CHF - latter resolved, former resolving. 2. COPD exacerbation - leave steroids at q12h dosing today. Cont nebs, symbicort. Cont mucinex & incentive spirometry. Wean o2 if sats >90%. Day #5/7 of levaquin. Change IV levaquin to po. Recommend repeat PFTs after d/c, in about 6 weeks, along with pulmonary f/u. 3. acute/chronic systolic CHF - acute component resolved; creatinine had risen in the midst of diuresis. Cont BB. Holding ARB due to acute kidney injury. 4. acute kidney injury - 2nd to over-diuresis? Creatinine modestly improved today. Holding diuretics and ARB for now; nephrology consult appreciated. Daily BMP. 5. CKD stage 3 - baseline is about 1.4. Daily BMP. 6. a. fib on chronic coumadin - cont coumadin and obtain daily INR. 7. uncontrolled T2DM - increase AM lantus to 15 units qam; cont HS lantus; cont novolog with meals. 8. acute hyponatremia - improved; repeat BMP am. 9. pacemaker status, placed 2006 due to SSS - interrogation requested due to recent abnormal rhythms on monitoring. Await pacer interrogation. 10. CAD - echo this admission with new wall motion abnormality but no ischemic symptoms at this time. Cont BB, imdur, statin. Uncertain why she is not on aspirin therapy. 11. HTN - continue all meds but hold ARB due to acute kidney injury. 12. 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 DVT proph - coumadin. PT, OT evals - can return home when medically stable son updated at bedside Continued [facility] stay due to: multiple IV medications needed, other (acute kidney injury) Discharge planning: senior care facility
[2017-08-12] VITALS (14 sets, daily range): BP systolic 153–183; BP diastolic 64–78; PULSE 60–79; TEMP 36.5–36.8; O2SAT 86–99
[2017-08-12] MEDS: ALBUT/IPRATROP 3MG/0.5MG NEB 3 ML VIAL INH SCH ×4 (02:17→19:07)
[2017-08-12 06:49] LABS: INR 2.1 (0.9-1.1)
[2017-08-12 07:10] LABS: CALCIUM 8.8 mg/dl (8.5-10.1); CREATININE 1.69 mg/dl (0.60-1.20); POTASSIUM 4.3 mmol/L (3.5-5.1)
[2017-08-12] MEDS: GUAIFENESIN 600 MG TABCR PO SCH ×2 (08:26→20:43)
[2017-08-12] MEDS: ISOSORBIDE MONONITRATE 30 MG TABCR PO SCH (08:26)
[2017-08-12] MEDS: AMLODIPINE BESYLATE 5 MG TAB PO SCH (08:27)
[2017-08-12] MEDS: BUDESONIDE/FORMOTEROL FUMARATE 160/4.5 60 PUFFS/INHALER INH SCH ×2 (08:31→20:42)
[2017-08-12] MEDS: INSULIN ASPART 100 UNITS/ML 3 ML PEN SC SCH ×4 (08:36→20:49)
[2017-08-12] MEDS: INSULIN GLARGINE SOLOSTAR 100 UNITS/ML 3 ML PEN SC SCH ×2 (08:37→20:49)
--- NOTE | 2017-08-12 09:31 | Nephrology Progress Note ---
Nephrology Progress Note Date of Service Aug 12, 2017. Chief Complaint YUMIKO/CKD Subjective No acute events overnight. Cammy is resting comfortably in chair. She feels well. No acute complaints. Dyspnea improved. No fevers or chills. Voiding urine without difficulty. Plan of care was discussed with Dr. West this morning. Review of Systems A complete review of systems was performed. Pertinent positives are noted above. All other systems are negative. Vital Signs Last 8 Hrs Date Time Temp Pulse Resp B/P (MAP) Pulse Ox O2 Delivery O2 Flow Rate FiO2 08/12/17 08:15 94 Nasal Cannula 2.0 08/12/17 07:22 36.5 66 20 183/72 (109) 99 08/12/17 04:00 36.5 60 18 155/78 (103) 92 2.0 08/12/17 04:00 Nasal Cannula 2.0 Last Recorded Weight Weight (Kilograms): 93.300 Physical Exam General Appearance: WD/WN, no apparent distress Head: normocephalic, atraumatic Eyes: normal inspection, sclerae normal ENT: normal ENT inspection, pharynx normal Neck: supple, no JVD Respiratory/Chest: lungs clear, no respiratory distress, no accessory muscle use Cardiovascular: regular rate, rhythm, no murmur Abdomen/GI: non tender, soft Extremities/Musculoskelatal: normal inspection, no pedal edema Neurologic/Psych: alert, normal mood/affect Family History Cancer FH: pneumonia Heart disease Social History Smoking Status: Former smoker Drug Use: none Marital Status: Housing Status: lives with family Occupation: retired Laboratory Results Past 24 Hours 08/12/17 06:25 Test 08/11/17 11:45 08/11/17 16:51 08/11/17 20:59 08/12/17 06:25 Bedside Glucose 203 mg/dl (70-90) 181 mg/dl (70-90) 228 mg/dl (70-90) Prothrombin Time 21.4 SECONDS (9.0-12.0) Prothromb Time International Ratio 2.1 (0.9-1.1) Anion Gap 7.0 mmol/L (3-11) Est Creatinine Clear Calc Drug Dose 31.2 ml/min Estimated GFR () 32.9 Estimated GFR (Non- 28.4 BUN/Creatinine Ratio 42.5 (10-20) Calcium Level 8.8 mg/dl (8.5-10.1) Test 08/12/17 07:35 Bedside Glucose 204 mg/dl (70-90) Allergies Coded Allergies: Chlorthalidone (Verified Allergy, Unknown, UNK, 10/09/16) Penicillins (Verified Allergy, Unknown, 10/09/16) Medications Current Inpatient Medications Medications (Trade) Dose Ordered Sig/Tayler Route Start Time Stop Time Status Last Admin Dose Admin Amlodipine Besylate (Norvasc Tab) 10 mg QAM PO 08/08/17 09:00 09/07/17 08:59 08/12/17 08:27 10 MG Atenolol (Tenormin Tab) 50 mg QAM PO 08/08/17 09:00 09/07/17 08:59 08/12/17 08:27 50 MG Isosorbide Mononitrate (Imdur Ext Rel Tab) 90 mg QAM PO 08/08/17 09:00 09/07/17 08:59 08/12/17 08:26 90 MG Simvastatin (Zocor Tab) 20 mg HS PO 08/07/17 21:00 09/06/17 20:59 08/11/17 20:50 20 MG Zolpidem Tartrate (Ambien Tab) 5 mg HS PRN PO 08/07/17 19:45 09/06/17 19:44 Miscellaneous Information (Order Awaiting Action) 1 ea QS N/A 08/08/17 00:00 09/07/17 00:00 Docusate Sodium (coLACE CAP) 100 mg HS PO 08/07/17 21:00 09/06/17 20:59 08/11/17 20:51 100 MG Psyllium Hydrophilic Mucilloid (Metamucil Powder) 1 pkt HS PO 08/07/17 21:00 09/06/17 20:59 08/11/17 20:51 1 PKT Albuterol/ Ipratropium (Duoneb) 3 ml Q6R INH 08/07/17 21:00 09/06/17 20:59 08/12/17 06:58 3 ML Albuterol Sulfate (Ventolin 0.083% 2.5MG/3ML Neb) 2.5 mg Q4R PRN INH 08/07/17 19:45 09/06/17 19:44 Acetaminophen (Tylenol Tab) 650 mg Q4H PRN PO 08/07/17 20:00 09/06/17 19:59 Al Hydrox/Mg Hydrox/Simethicone (Maalox Max Susp) 15 ml Q4H PRN PO 08/07/17 20:00 09/06/17 19:59 Magnesium Hydroxide (Milk Of Magnesia Susp) 30 ml Q12H PRN PO 08/07/17 20:00 09/06/17 19:59 Ondansetron HCl (Zofran Inj) 4 mg Q6H PRN IV 08/07/17 20:00 09/06/17 19:59 Nitroglycerin (Nitrostat Tab) 0.4 mg UD PRN SL 08/07/17 20:00 09/06/17 19:59 Morphine Sulfate (MoRPHine SULFATE INJ) 2 mg Q30M PRN IV 08/07/17 20:00 08/21/17 19:59 Polyethylene (Miralax Powder Packet) 17 gm DAILY PRN PO 08/07/17 20:00 09/06/17 19:59 Sitagliptin Phosphate (Januvia Tab) 25 mg QAM PO 08/09/17 09:00 09/08/17 08:59 Future Hold 08/09/17 07:48 25 MG Insulin Aspart (novoLOG ASPART) SLIDING SCALE If C... ACHS SC 08/09/17 16:30 09/08/17 16:29 08/12/17 08:36 10 UNITS Glucose (Glucose 40% Gel) 15-30 GRAMS 15 GRAMS... UD PRN PO 08/09/17 14:45 09/08/17 14:44 Glucose (Glucose Chew Tab) 4-8 Tablets 4 Tabl... UD PRN PO 08/09/17 14:45 09/08/17 14:44 Dextrose (Dextrose 50% 50ML Syringe) 25-50ML OF 50% DW IV FOR... UD PRN IV 08/09/17 14:45 09/08/17 14:44 Glucagon (Glucagon Inj) 1 mg UD PRN SQ 08/09/17 14:45 09/08/17 14:44 Insulin Glargine (Lantus Solostar Pen) 5 units HS SC 08/09/17 21:00 09/08/17 20:59 08/11/17 21:19 5 UNITS Warfarin Sodium (Coumadin Tab) 2.5 mg DAILY@16 PO 08/10/17 16:00 09/09/17 15:59 08/11/17 15:30 2.5 MG Methylprednisolone Sodium Succinate 40 mg/Syringe 0.64 ml @ 1.5 mls/min Q12H IV 08/10/17 23:00 09/06/17 21:59 08/11/17 22:30 1.5 MLS/MIN Guaifenesin (Mucinex Contr Rel Tab) 1,200 mg Q12 PO 08/10/17 13:30 09/09/17 13:29 08/12/17 08:26 1,200 MG Levofloxacin (Levaquin Tab) 750 mg Q2D@11 PO 08/11/17 11:00 08/13/17 23:59 08/11/17 11:10 750 MG Budesonide/ Formoterol Fumarate (Symbicort 160/ 4.5 Inh) 2 puffs BID INH 08/12/17 09:00 09/06/17 20:59 08/12/17 08:31 2 PUFFS Insulin Glargine (Lantus Solostar Pen) 15 units QAM SC 08/12/17 09:00 09/09/17 08:59 08/12/17 08:37 15 UNITS Impression (1) Acute renal insufficiency (2) CKD (chronic kidney disease), stage III (3) Single kidney (4) COPD exacerbation (5) Chronic diastolic CHF (congestive heart failure) (6) Atrial fibrillation (7) Hypertension (8) Diabetes mellitus Cammy Zhu is a 77-year-old female with CKD III A3 (baseline creatinine 1.3 mg/dL), a single acquired R kidney, renovascular disease, cardiovascular disease, hypertension, DM II, and diastolic CHF. She was admitted with a COPD exacerbation and acute on chronic CHF. Volume status currently appears appropriate. She had adequate diuresis with furosemide 20 mg PO on 08/10. I would suggest continuing a low dose loop diuretic (Furosemide 20 mg QOD) to encourage event to slightly negative fluid balance. Avoid thiazide diuretics. UA documented a few hyaline cast as well as RBC and proteinuria. Will repeat this today. YUMIKO consistent with prerenal azotemia and normotensive ATN. Losartan has been held.Medications are otherwise appropriate for renal function. Recommendations YUMIKO: -- Document I/O's -- Encourage even to slightly negative fluid balance -- Hold ARB -- Repeat metabolic profile tomorrow AM Hyponatremia: -- Improved with appropriate free water restriction Hypertension: -- Start low dose loop diuretic QOD -- Consider switching atenolol to carvedilol CKD: -- Outpatient follow up with Dr. Cxo will be necessary at the time of discharge
--- NOTE | 2017-08-12 09:35 | CARDIOLOGY PROGRESS NOTE ---
DATE: 08/12/2017 SUBJECTIVE: Mrs. Zhu is resting comfortably in the bedside chair without complaints of chest pain. Her productive cough and dyspnea are improving. Becomes short of breath when off oxygen. OBJECTIVE: VITAL SIGNS: Blood pressure is 180/70 with an irregular pulse of 66. Respiratory rate is 20. The patient is afebrile at 36.5 degrees Celsius. Saturation 94% on 2 liters nasal cannula. NECK: Supple with full carotid upstrokes. No obvious bruits. Jugular venous pressure is flat at 90 degrees. There is no thyromegaly. CARDIOVASCULAR: Reveals an irregular rhythm with distant heart sounds. No obvious murmurs. LUNGS: Note distant breath sounds but no rales, rhonchi, or wheezes. ABDOMEN: Obese without bruits. EXTREMITIES: Reveal intact radial artery pulses bilaterally. Trace pretibial edema is noted. DATA: CBC notes hemoglobin of 12.6, hematocrit 37.3, white count 4.83, platelet count 160,000. Electrolytes note a sodium of 134, potassium 4.3, chloride 100, bicarbonate 27, BUN 72, creatinine 1.69, glucose 214. INR is 2.1. 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 IMPRESSION AND PLAN: 1. Respiratory failure, multifactorial, but most likely related to her acute exacerbation of COPD. There was a component of hypervolemia, however, she is now euvolemic. Continue current management. 2. Coronary artery disease -- status post [place] in 1992. Has been quiescent on medical management. 3. Permanent atrial fibrillation -- on chronic Coumadin therapy. INR therapeutic. 4. VVI pacemaker -- for symptomatic bradycardia in March 2017. 5. Chronic renal failure -- status post left nephrectomy for renal cell carcinoma. 6. Mild left ventricular dysfunction -- resolved. 7. Diabetes mellitus.
[2017-08-12] MEDS ORDERED: FUROSEMIDE 20 MG TAB PO ONE (09:45)
[2017-08-12] MEDS: METHYLPREDNISOLONE IV 40 MG in SYRINGE 0 ML IV SCH ×2 (11:32→22:32)
[2017-08-12] MEDS: WARFARIN SOD 2.5 MG TAB PO SCH (15:53)
[2017-08-12] MEDS: DOCUSATE SODIUM 100 MG CAP PO SCH (20:42)
[2017-08-12] MEDS: PSYLLIUM 58.6% PWD PACK S\\F PO SCH (20:42)
[2017-08-12] MEDS: SIMVASTATIN 20 MG TAB PO SCH (20:44)
--- NOTE | 2017-08-12 23:28 | Progress Note ---
Subjective Date of Service: Aug 12, 2017. Subjective Pt evaluation today including: conversation w/ patient, physical exam, chart review, lab review Pain: none reported PO Intake: fair/good Voiding: no voiding problems overall doing ok breathing continues to slowly improve had mild AN when she worked with PT but she ambulated around the entire floor mild cough; no significant sputum production had edema early this am; none now Problem List Medical Problems: (1) Acute renal failure Status: Acute (2) Bronchitis Status: Acute (3) CHF (congestive heart failure) Status: Acute (4) CHF (congestive heart failure) Status: Acute (5) Dyspnea on exertion Status: Acute (6) Single kidney Status: Acute (7) Syncope Status: Acute Review of Systems Constitutional: No fever Respiratory: No dyspnea at rest Cardiac: No chest pain, No orthopnea Abdomen: No pain Objective Vital Signs Date Time Temp Pulse Resp B/P (MAP) Pulse Ox O2 Delivery O2 Flow Rate FiO2 08/12/17 20:00 36.8 79 18 156/64 (94) 96 2.0 08/12/17 19:07 60 18 94 Nasal Cannula 2.0 08/12/17 16:00 92 Nasal Cannula 2.0 08/12/17 16:00 92 Nasal Cannula 2.0 08/12/17 15:59 86 Room Air 08/12/17 15:58 86 Room Air 08/12/17 15:34 36.5 65 18 174/73 (106) 92 Room Air 08/12/17 14:23 61 16 93 Nasal Cannula 2.0 08/12/17 12:10 97 Nasal Cannula 2.0 08/12/17 11:24 36.5 61 18 153/65 (94) 99 Nasal Cannula 2.0 08/12/17 08:15 94 Nasal Cannula 2.0 08/12/17 07:22 36.5 66 20 183/72 (109) 99 08/12/17 04:00 36.5 60 18 155/78 (103) 92 2.0 08/12/17 04:00 Nasal Cannula 2.0 08/12/17 00:29 36.8 66 18 164/72 (102) 93 Nasal Cannula 2.0 08/12/17 00:00 Nasal Cannula 2.0 Physical Exam General Appearance: no apparent distress ENT: pharynx normal (no thrush) Neck: no JVD Respiratory/Chest: no respiratory distress, no accessory muscle use, + pertinent finding (airation improved today; mild wheezing especially upper lobes ) Cardiovascular: regular rate, rhythm, no gallop Abdomen: normal bowel sounds, non tender, soft, no organomegaly Extremities: no pedal edema, + pertinent finding (varicose veins, severe, left leg; varicose veins, mild, right leg) Laboratory Results Last 24 Hours Test 08/12/17 06:25 08/12/17 07:35 08/12/17 11:43 08/12/17 16:34 Prothrombin Time 21.4 SECONDS Prothromb Time International Ratio 2.1 Sodium Level 134 mmol/L Potassium Level 4.3 mmol/L Chloride Level 100 mmol/L Carbon Dioxide Level 27 mmol/L Anion Gap 7.0 mmol/L Blood Urea Nitrogen 72 mg/dl Creatinine 1.69 mg/dl Est Creatinine Clear Calc Drug Dose 31.2 ml/min Estimated GFR () 32.9 Estimated GFR (Non- 28.4 BUN/Creatinine Ratio 42.5 Random Glucose 214 mg/dl Calcium Level 8.8 mg/dl Bedside Glucose 204 mg/dl 148 mg/dl 153 mg/dl Assessment and Plan 77yo female with: 1. acute hypoxic respiratory failure - likely combination of COPD exacerbation & acute/chronic CHF - latter resolved, former resolving albeit slowly. 2. COPD exacerbation - leave steroids at q12h dosing once againt today; perhaps wean to oral prednisone in am. Cont nebs, symbicort. Cont mucinex & incentive spirometry. Wean o2 if sats >90%. Day #6/7 of levaquin. Recommend repeat PFTs after d/c, in about 6 weeks, along with pulmonary f/u. 3. acute/chronic systolic CHF - acute component resolved; creatinine had risen in the midst of diuresis. Cont BB. Holding ARB due to acute kidney injury. Resume lasix by mouth today. 4. acute kidney injury - 2nd to over-diuresis - creatinine again continues to trend down. daily BMP. appreciate nephrology consultation. 5. CKD stage 3 - baseline is about 1.4. Daily BMP. 6. a. fib on chronic coumadin - cont coumadin and obtain daily INR. INR therapeutic today. 7. uncontrolled T2DM - increase AM lantus to 15 units qam; cont HS lantus; cont novolog with meals. 8. acute hyponatremia - improved/nearly resolved; Na 134 today; repeat BMP am. 9. pacemaker status, placed 2006 due to SSS - interrogation requested and pending. 10. CAD - echo this admission with new wall motion abnormality but no ischemic symptoms at this time. Cont BB, imdur, statin. Uncertain why she is not on aspirin therapy. 11. HTN - continue all meds but hold ARB due to acute kidney injury. 12. 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 DVT proph - coumadin. PT, OT evals - can return home when medically stable left message for son 08/12/17 Continued [facility] stay due to: multiple IV medications needed, other (acute kidney injury) Discharge planning: home
[2017-08-13] VITALS (12 sets, daily range): BP systolic 151–180; BP diastolic 67–99; PULSE 62–68; TEMP 36.5–36.8; O2SAT 92–95
[2017-08-13] MEDS: ALBUT/IPRATROP 3MG/0.5MG NEB 3 ML VIAL INH SCH ×4 (02:17→19:13)
[2017-08-13 07:19] LABS: ALBUMIN 2.9 gm/dl (3.4-5.0); CALCIUM 8.8 mg/dl (8.5-10.1); CREATININE 1.49 mg/dl (0.60-1.20); POTASSIUM 4.7 mmol/L (3.5-5.1)
[2017-08-13] MEDS: AMLODIPINE BESYLATE 5 MG TAB PO SCH (08:06)
[2017-08-13] MEDS: GUAIFENESIN 600 MG TABCR PO SCH ×2 (08:06→21:11)
[2017-08-13] MEDS: BUDESONIDE/FORMOTEROL FUMARATE 160/4.5 60 PUFFS/INHALER INH SCH ×2 (08:06→21:09)
[2017-08-13] MEDS: ISOSORBIDE MONONITRATE 30 MG TABCR PO SCH (08:06)
--- NOTE | 2017-08-13 08:07 | DIAGNOSTIC IMAGING REPORT ---
CHEST 2 VIEWS ROUTINE HISTORY: COPD exacerbation; eval for any other pathology COMPARISON: Chest 08/08/2017. FINDINGS: No pneumothorax. No pleural effusions. Left-sided single lead pacemaker. The heart remains enlarged. No new focal lung consolidations to suggest pneumonia. No evidence for pulmonary edema. Old, healed right-sided rib fractures. IMPRESSION: Stable mild cardiomegaly. Otherwise, no acute process within the chest. Electronically signed by: Chalino Cooper M.D. 08/13/2017 8:05 AM Dictated Date/Time: 08/13/2017 8:04 AM
[2017-08-13] MEDS: INSULIN GLARGINE SOLOSTAR 100 UNITS/ML 3 ML PEN SC SCH ×2 (08:21→21:22)
[2017-08-13] MEDS: INSULIN ASPART 100 UNITS/ML 3 ML PEN SC SCH ×4 (08:21→21:22)
--- NOTE | 2017-08-13 09:53 | CARDIOLOGY PROGRESS NOTE ---
DATE: 08/13/2017 SUBJECTIVE: Mrs. Zhu is resting comfortably in the bedside chair without complaints of chest pain. Continues to note a productive cough. Her dyspnea is improving. Now maintaining saturations greater than 90% on room air. OBJECTIVE: VITAL SIGNS: Blood pressure is 167/67, with an irregular pulse of 66, respiratory rate is 18, patient is afebrile at 36.5 degrees Celsius, saturation is 92% on 2 L nasal cannula. NECK: Supple, with full carotid upstrokes. No obvious bruits. CARDIOVASCULAR: Exam reveals an irregular rhythm with distant heart sounds. No obvious murmurs. RESPIRATORY: Lungs note occasional rhonchi but no rales. GASTROINTESTINAL: Abdomen is obese, without bruits. MUSCULOSKELETAL: Extremities reveal intact radial artery pulses bilaterally. There is trace pretibial edema. LABORATORY DATA: Electrolytes noted sodium of 137, potassium 4.7, chloride 104, bicarbonate 29, BUN 69, creatinine 1.49, glucose 174. INR therapeutic at 2.0. legal job titles notes atrial fibrillation with appropriate ventricular pacing. IMPRESSION AND PLAN: 1. Respiratory failure, multifactorial but likely related to acute exacerbation of chronic obstructive pulmonary disease. Her hypervolemia has resolved. 2. Coronary artery disease, status post myocardial infarction in 1992. Quiescent on current medical regimen. 3. Permanent atrial fibrillation. Continue chronic Coumadin therapy. INR therapeutic today. 4. VVI pacer for symptomatic bradycardia in 2017. 5. Chronic renal failure, status post left nephrectomy for renal cell carcinoma. 6. Mild left ventricular dysfunction, resolved. 7. Diabetes mellitus.
--- NOTE | 2017-08-13 10:07 | Nephrology Progress Note ---
Nephrology Progress Note Date of Service Aug 13, 2017. Chief Complaint YUMIKO/CKD Subjective No acute events overnight. Cammy is resting comfortably in chair this morning. Dyspnea has significantly improved. She reports a persistent cough. She is able to clear more secretions. She is more comfortable off oxygen and maintaining improved SaO2 without supplementation at rest. Cammy denies fevers or chills. Activity tolerance improving. Review of Systems A complete review of systems was performed. Pertinent positives are noted above. All other systems are negative. Vital Signs Last 8 Hrs Date Time Temp Pulse Resp B/P (MAP) Pulse Ox O2 Delivery O2 Flow Rate FiO2 08/13/17 08:00 92 Room Air 08/13/17 08:00 Nasal Cannula 08/13/17 07:30 66 18 95 Nasal Cannula 2.0 08/13/17 07:27 36.5 67 20 167/67 (100) 93 Nasal Cannula 2.0 08/13/17 04:18 36.8 68 18 180/75 (110) 95 Nasal Cannula 2.0 08/13/17 04:00 Nasal Cannula 2.0 Last Recorded Weight Weight (Kilograms): 98.200 Physical Exam General Appearance: WD/WN, no apparent distress Head: normocephalic, atraumatic Eyes: normal inspection, sclerae normal ENT: normal ENT inspection, pharynx normal Neck: supple, no JVD Respiratory/Chest: no respiratory distress, no accessory muscle use, + wheezing Cardiovascular: regular rate, rhythm, no gallop Abdomen/GI: non tender, soft Extremities/Musculoskelatal: normal inspection, no pedal edema Neurologic/Psych: alert, normal mood/affect Family History Cancer FH: pneumonia Heart disease Social History Smoking Status: Former smoker Drug Use: none Marital Status: Housing Status: lives with family Occupation: retired Laboratory Results Past 24 Hours 08/13/17 06:29 Test 08/12/17 11:43 08/12/17 16:34 08/12/17 20:44 08/13/17 06:29 Bedside Glucose 148 mg/dl (70-90) 153 mg/dl (70-90) 239 mg/dl (70-90) Prothrombin Time 20.9 SECONDS (9.0-12.0) Prothromb Time International Ratio 2.0 (0.9-1.1) Anion Gap 4.0 mmol/L (3-11) Est Creatinine Clear Calc Drug Dose 36.2 ml/min Estimated GFR () 38.3 Estimated GFR (Non- 33.1 BUN/Creatinine Ratio 46.3 (10-20) Calcium Level 8.8 mg/dl (8.5-10.1) Phosphorus Level 4.0 mg/dl (2.5-4.9) Albumin 2.9 gm/dl (3.4-5.0) Test 08/13/17 07:49 Bedside Glucose 174 mg/dl (70-90) Allergies Coded Allergies: Chlorthalidone (Verified Allergy, Unknown, UNK, 10/09/16) Penicillins (Verified Allergy, Unknown, 10/09/16) Medications Current Inpatient Medications Medications (Trade) Dose Ordered Sig/Tayler Route Start Time Stop Time Status Last Admin Dose Admin Amlodipine Besylate (Norvasc Tab) 10 mg QAM PO 08/08/17 09:00 09/07/17 08:59 08/13/17 08:06 10 MG Atenolol (Tenormin Tab) 50 mg QAM PO 08/08/17 09:00 09/07/17 08:59 08/13/17 08:06 50 MG Isosorbide Mononitrate (Imdur Ext Rel Tab) 90 mg QAM PO 08/08/17 09:00 09/07/17 08:59 08/13/17 08:06 90 MG Simvastatin (Zocor Tab) 20 mg HS PO 08/07/17 21:00 09/06/17 20:59 08/12/17 20:44 20 MG Zolpidem Tartrate (Ambien Tab) 5 mg HS PRN PO 08/07/17 19:45 09/06/17 19:44 Miscellaneous Information (Order Awaiting Action) 1 ea QS N/A 08/08/17 00:00 09/07/17 00:00 Docusate Sodium (coLACE CAP) 100 mg HS PO 08/07/17 21:00 09/06/17 20:59 08/12/17 20:42 100 MG Psyllium Hydrophilic Mucilloid (Metamucil Powder) 1 pkt HS PO 08/07/17 21:00 09/06/17 20:59 08/12/17 20:42 1 PKT Albuterol/ Ipratropium (Duoneb) 3 ml Q6R INH 08/07/17 21:00 09/06/17 20:59 08/13/17 07:09 3 ML Albuterol Sulfate (Ventolin 0.083% 2.5MG/3ML Neb) 2.5 mg Q4R PRN INH 08/07/17 19:45 09/06/17 19:44 Acetaminophen (Tylenol Tab) 650 mg Q4H PRN PO 08/07/17 20:00 09/06/17 19:59 Al Hydrox/Mg Hydrox/Simethicone (Maalox Max Susp) 15 ml Q4H PRN PO 08/07/17 20:00 09/06/17 19:59 Magnesium Hydroxide (Milk Of Magnesia Susp) 30 ml Q12H PRN PO 08/07/17 20:00 09/06/17 19:59 Ondansetron HCl (Zofran Inj) 4 mg Q6H PRN IV 08/07/17 20:00 09/06/17 19:59 Nitroglycerin (Nitrostat Tab) 0.4 mg UD PRN SL 08/07/17 20:00 09/06/17 19:59 Morphine Sulfate (MoRPHine SULFATE INJ) 2 mg Q30M PRN IV 08/07/17 20:00 08/21/17 19:59 Polyethylene (Miralax Powder Packet) 17 gm DAILY PRN PO 08/07/17 20:00 09/06/17 19:59 Sitagliptin Phosphate (Januvia Tab) 25 mg QAM PO 08/09/17 09:00 09/08/17 08:59 Future Hold 08/09/17 07:48 25 MG Insulin Aspart (novoLOG ASPART) SLIDING SCALE If C... ACHS SC 08/09/17 16:30 09/08/17 16:29 08/13/17 08:21 6 UNITS Glucose (Glucose 40% Gel) 15-30 GRAMS 15 GRAMS... UD PRN PO 08/09/17 14:45 09/08/17 14:44 Glucose (Glucose Chew Tab) 4-8 Tablets 4 Tabl... UD PRN PO 08/09/17 14:45 09/08/17 14:44 Dextrose (Dextrose 50% 50ML Syringe) 25-50ML OF 50% DW IV FOR... UD PRN IV 08/09/17 14:45 09/08/17 14:44 Glucagon (Glucagon Inj) 1 mg UD PRN SQ 08/09/17 14:45 09/08/17 14:44 Insulin Glargine (Lantus Solostar Pen) 5 units HS SC 08/09/17 21:00 09/08/17 20:59 08/12/17 20:49 5 UNITS Warfarin Sodium (Coumadin Tab) 2.5 mg DAILY@16 PO 08/10/17 16:00 09/09/17 15:59 08/12/17 15:53 2.5 MG Methylprednisolone Sodium Succinate 40 mg/Syringe 0.64 ml @ 1.5 mls/min Q12H IV 08/10/17 23:00 09/06/17 21:59 08/12/17 22:32 1.5 MLS/MIN Guaifenesin (Mucinex Contr Rel Tab) 1,200 mg Q12 PO 08/10/17 13:30 09/09/17 13:29 08/13/17 08:06 1,200 MG Levofloxacin (Levaquin Tab) 750 mg Q2D@11 PO 08/11/17 11:00 08/13/17 23:59 08/11/17 11:10 750 MG Budesonide/ Formoterol Fumarate (Symbicort 160/ 4.5 Inh) 2 puffs BID INH 08/12/17 09:00 09/06/17 20:59 08/13/17 08:06 2 PUFFS Insulin Glargine (Lantus Solostar Pen) 15 units QAM SC 08/12/17 09:00 09/09/17 08:59 08/13/17 08:21 15 UNITS Impression (1) Acute renal insufficiency (2) CKD (chronic kidney disease), stage III (3) Single kidney (4) COPD exacerbation (5) Chronic diastolic CHF (congestive heart failure) (6) Atrial fibrillation (7) Hypertension (8) Diabetes mellitus Cammy Zhu is a 77-year-old female with CKD III A3 (baseline creatinine 1.3 mg/dL), a single acquired R kidney, renovascular disease, cardiovascular disease, hypertension, DM II, and diastolic CHF. She was admitted with a COPD exacerbation and acute on chronic CHF. Volume status currently appears appropriate. I would suggest continuing a low dose loop diuretic (Furosemide 20 mg QOD, which could be converted to daily as needed) to encourage event to slightly negative fluid balance. Avoid thiazide diuretics. UA documented a few hyaline cast as well as RBC and proteinuria. Will repeat this today. YUMIKO consistent with prerenal azotemia and normotensive ATN. Losartan has been held.Medications are otherwise appropriate for renal function. Recommendations YUMIKO: -- Document I/O's -- Encourage even to slightly negative fluid balance -- Hold ARB -- Repeat metabolic profile tomorrow AM Hyponatremia: -- Improved with appropriate free water restriction -- Volume status appropriate -- Increase daily fluid allowance to 1500 ml Hypertension: -- Start low dose loop diuretic QOD or QD as needed to maintain euvolemia -- Consider switching atenolol to carvedilol CKD: -- Outpatient follow up with Dr. Cox will be necessary at the time of discharge
[2017-08-13] MEDS: METHYLPREDNISOLONE IV 40 MG in SYRINGE 0 ML IV SCH (11:44)
[2017-08-13] MEDS: LEVOFLOXACIN 750 MG TAB PO SCH (11:44)
[2017-08-13] MEDS: WARFARIN SOD 2.5 MG TAB PO SCH (16:01)
[2017-08-13] MEDS: PSYLLIUM 58.6% PWD PACK S\\F PO SCH (21:10)
[2017-08-13] MEDS: SIMVASTATIN 20 MG TAB PO SCH (21:10)
[2017-08-13] MEDS: DOCUSATE SODIUM 100 MG CAP PO SCH (21:11)
--- NOTE | 2017-08-13 21:37 | Progress Note ---
Subjective Date of Service: Aug 13, 2017. Subjective Pt evaluation today including: conversation w/ patient, physical exam, chart review, lab review, review of studies (cxr) Pain: none PO Intake: improving albeit slowly Voiding: no voiding problems patient feeling much better coughing but this is less; still nonproductive not as much dyspnea w/ exertion O2 has been weaned off hopeful for d/c home soon Problem List Medical Problems: (1) Acute renal failure Status: Acute (2) Bronchitis Status: Acute (3) CHF (congestive heart failure) Status: Acute (4) CHF (congestive heart failure) Status: Acute (5) Dyspnea on exertion Status: Acute (6) Single kidney Status: Acute (7) Syncope Status: Acute Review of Systems Constitutional: No fever, No chills Respiratory: No dyspnea at rest Cardiac: No chest pain, No orthopnea Abdomen: No pain Objective Vital Signs Date Time Temp Pulse Resp B/P (MAP) Pulse Ox O2 Delivery O2 Flow Rate FiO2 08/13/17 20:00 93 Room Air 08/13/17 19:28 36.7 62 18 159/70 (99) 92 Room Air 08/13/17 19:14 68 18 92 Room Air 08/13/17 16:00 93 Room Air 08/13/17 15:27 36.8 68 16 177/71 (106) 93 08/13/17 14:12 64 18 94 Room Air 08/13/17 12:00 Nasal Cannula 08/13/17 11:39 36.6 62 18 163/72 (102) 93 Room Air 08/13/17 08:00 92 Room Air 08/13/17 08:00 Nasal Cannula 08/13/17 07:30 66 18 95 Nasal Cannula 2.0 08/13/17 07:27 36.5 67 20 167/67 (100) 93 Nasal Cannula 2.0 08/13/17 04:18 36.8 68 18 180/75 (110) 95 Nasal Cannula 2.0 08/13/17 04:00 Nasal Cannula 2.0 08/13/17 00:00 Nasal Cannula 2.0 08/12/17 23:47 36.8 61 18 178/69 (105) 96 Nasal Cannula 2.0 Physical Exam General Appearance: no apparent distress, + pertinent finding (looks good) ENT: pharynx normal Neck: no JVD Respiratory/Chest: no respiratory distress, no accessory muscle use, + pertinent finding (mild end-exp wheezing - much improved from prior exams; airation also much better) Cardiovascular: + pertinent finding (irregular, s1, s2) Extremities: no pedal edema, + pertinent finding (varicose veins b/l ) Neurologic/Psychiatric: alert, oriented x 3 Laboratory Results Last 24 Hours Test 08/13/17 06:29 08/13/17 07:49 08/13/17 11:43 08/13/17 16:32 Prothrombin Time 20.9 SECONDS Prothromb Time International Ratio 2.0 Sodium Level 137 mmol/L Potassium Level 4.7 mmol/L Chloride Level 104 mmol/L Carbon Dioxide Level 29 mmol/L Anion Gap 4.0 mmol/L Blood Urea Nitrogen 69 mg/dl Creatinine 1.49 mg/dl Est Creatinine Clear Calc Drug Dose 36.2 ml/min Estimated GFR () 38.3 Estimated GFR (Non- 33.1 BUN/Creatinine Ratio 46.3 Random Glucose 186 mg/dl Calcium Level 8.8 mg/dl Phosphorus Level 4.0 mg/dl Albumin 2.9 gm/dl Bedside Glucose 174 mg/dl 187 mg/dl 152 mg/dl Test 08/13/17 20:08 Bedside Glucose 233 mg/dl Assessment and Plan 77yo female with: 1. acute hypoxic respiratory failure - likely combination of COPD exacerbation & acute/chronic CHF -- resolved. 2. COPD exacerbation - improving nicely. leave steroids at q12h dosing but cut to 20mg each dose. Anticipate transitioning to prednisone tomorrow. Cont mucinex, nebs, inhalers, and incentive spirometry. Day #7/7 of levaquin. Recommend repeat PFTs after d/c, in about 6 weeks, along with pulmonary f/u. 3. acute/chronic systolic CHF - acute component resolved; creatinine had risen in the midst of diuresis. Cont BB. Holding ARB due to acute kidney injury but suspect we can resume tomorrow. Consider resuming low-dose lasix (20mg daily or 20mg qd prn). 4. acute kidney injury - 2nd to over-diuresis - creatinine nearly at baseline of 1.4. daily BMP. appreciate nephrology consultation. can likely resume ARB tomorrow. 5. CKD stage 3 - baseline is about 1.4. Daily BMP. 6. a. fib on chronic coumadin - cont coumadin and obtain daily INR. INR therapeutic once again. 7. uncontrolled T2DM - acceptable control w/ lantus/novolog. 8. acute hyponatremia - resolved, likely was due to diuretic usage (especially HCTZ). No further HCTZ moving forward. 9. pacemaker status, placed 2006 due to SSS - interrogation requested and pending. 10. CAD - echo this admission with new wall motion abnormality but no ischemic symptoms at this time. Cont BB, imdur, statin. Uncertain why she is not on aspirin therapy. 11. HTN - continue all meds but hold ARB due to acute kidney injury. BPs improving as steroids have been tapered. 12. 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 DVT proph - coumadin. PT, OT evals - can return home when medically stable left message for son 08/12/17 anticipate d/c on 08/14/17 Continued [facility] stay due to: multiple IV medications needed, other (acute kidney injury) Discharge planning: home with home health
[2017-08-13] MEDS ORDERED: METHYLPREDNISOLONE IV 20 MG in SYRINGE 0 ML IV SCH (23:00)
[2017-08-14] VITALS (10 sets, daily range): BP systolic 163–200; BP diastolic 67–77; PULSE 60–94; TEMP 36.4–36.8; O2SAT 90–98
[2017-08-14] MEDS: ALBUT/IPRATROP 3MG/0.5MG NEB 3 ML VIAL INH SCH ×3 (01:37→14:08)
[2017-08-14 06:46] LABS: INR 2.1 (0.9-1.1)
[2017-08-14 07:08] LABS: ALBUMIN 2.8 gm/dl (3.4-5.0); CALCIUM 8.6 mg/dl (8.5-10.1); CREATININE 1.16 mg/dl (0.60-1.20); POTASSIUM 4.6 mmol/L (3.5-5.1)
[2017-08-14 07:15] LABS: PHOSPHORUS 2.7 mg/dl (2.5-4.9)
[2017-08-14] MEDS: AMLODIPINE BESYLATE 5 MG TAB PO SCH (08:07)
[2017-08-14] MEDS: GUAIFENESIN 600 MG TABCR PO SCH (08:07)
[2017-08-14] MEDS: ISOSORBIDE MONONITRATE 30 MG TABCR PO SCH (08:07)
[2017-08-14] MEDS: BUDESONIDE/FORMOTEROL FUMARATE 160/4.5 60 PUFFS/INHALER INH SCH (08:08)
[2017-08-14] MEDS: INSULIN ASPART 100 UNITS/ML 3 ML PEN SC SCH ×3 (08:12→16:30)
[2017-08-14] MEDS: INSULIN GLARGINE SOLOSTAR 100 UNITS/ML 3 ML PEN SC SCH (08:13)
--- NOTE | 2017-08-14 10:00 | CARDIOLOGY PROGRESS NOTE ---
DATE: 08/14/2017 SUBJECTIVE: Mrs. Zhu is resting comfortably in the bedside chair without complaints of chest pain or dyspnea. Does note a nonproductive cough. She is anxious for hospital discharge. OBJECTIVE: VITAL SIGNS: Blood pressure is 184/77 with an irregular pulse of 68. Respiratory rate is 18 and the patient is afebrile at 36.5 degrees Celsius. Saturation 95% on room air. NECK: Supple with full carotid upstrokes. No obvious bruits. Jugular pressure is flat at 90 degrees. CARDIOVASCULAR: Reveals a regular rhythm with distant heart sounds. No obvious murmurs. LUNGS: Note an occasional rhonchi and wheeze, but no rales. ABDOMEN: Soft without bruits. EXTREMITIES: Reveal intact radial artery pulses bilaterally. No pretibial edema. DATA: Electrolytes note a sodium of 137, potassium 4.6, chloride 105 and bicarb 27, BUN 53, creatinine 1.16, glucose 183. INR is 2.1. gambling monitor notes atrial fibrillation with appropriate ventricular pacing. IMPRESSION AND PLAN: 1. Respiratory failure -- resolved. 2. Coronary artery disease -- status post [place] in 1992. Quiescent on current medical regimen. Question of new wall motion abnormality. 3. Permanent atrial fibrillation -- Coumadin is therapeutic. 4. VVI pacer -- for symptomatic bradycardia, performed in 2017. 5. Chronic renal failure. 6. Status post left nephrectomy for renal cell carcinoma. 7. Mild left ventricular dysfunction -- resolved. 8. Diabetes mellitus.
[2017-08-14] MEDS ORDERED: LOSARTAN POTASSIUM 25 MG TAB PO SCH (10:30)
--- NOTE | 2017-08-14 11:01 | Nephrology Progress Note ---
Nephrology Progress Note Date of Service Aug 14, 2017. Chief Complaint YUMIKO/CKD Subjective No acute events overnight. No complaints this morning. Cammy feels well and hopes to be discharged home soon. She is breathing comfortably. She denies chest pain or palpitations. No headaches. No lightheadedness or dizziness. Non productive cough persists. Review of Systems A complete review of systems was performed. Pertinent positives are noted above. All other systems are negative. Vital Signs Last 8 Hrs Date Time Temp Pulse Resp B/P (MAP) Pulse Ox O2 Delivery O2 Flow Rate FiO2 08/14/17 08:00 95 Room Air 08/14/17 07:26 68 18 96 Room Air 08/14/17 07:08 36.5 94 20 200/77 (118) 95 184/77 (112) 08/14/17 04:26 36.8 68 18 189/71 (110) 90 Room Air 08/14/17 04:00 Room Air Last Recorded Weight Weight (Kilograms): 92.000 Physical Exam General Appearance: WD/WN, no apparent distress Head: normocephalic, atraumatic Eyes: normal inspection, sclerae normal ENT: normal ENT inspection, pharynx normal Neck: supple, no JVD Respiratory/Chest: no respiratory distress, no accessory muscle use, + wheezing Cardiovascular: regular rate, rhythm, no gallop Abdomen/GI: non tender, soft Extremities/Musculoskelatal: normal inspection, no pedal edema Neurologic/Psych: alert, normal mood/affect Family History Cancer FH: pneumonia Heart disease Social History Smoking Status: Former smoker Drug Use: none Marital Status: Housing Status: lives with family Occupation: retired Laboratory Results Past 24 Hours 08/14/17 06:06 Test 08/13/17 11:43 08/13/17 16:32 08/13/17 20:08 08/14/17 06:06 Bedside Glucose 187 mg/dl (70-90) 152 mg/dl (70-90) 233 mg/dl (70-90) Prothrombin Time 21.9 SECONDS (9.0-12.0) Prothromb Time International Ratio 2.1 (0.9-1.1) Anion Gap 5.0 mmol/L (3-11) Est Creatinine Clear Calc Drug Dose 44.9 ml/min Estimated GFR () 51.9 Estimated GFR (Non- 44.7 BUN/Creatinine Ratio 45.7 (10-20) Calcium Level 8.6 mg/dl (8.5-10.1) Phosphorus Level 2.7 mg/dl (2.5-4.9) Albumin 2.8 gm/dl (3.4-5.0) Test 08/14/17 07:20 Bedside Glucose 169 mg/dl (70-90) Allergies Coded Allergies: Chlorthalidone (Verified Allergy, Unknown, UNK, 10/09/16) Penicillins (Verified Allergy, Unknown, 10/09/16) Medications Current Inpatient Medications Medications (Trade) Dose Ordered Sig/Tayler Route Start Time Stop Time Status Last Admin Dose Admin Amlodipine Besylate (Norvasc Tab) 10 mg QAM PO 08/08/17 09:00 09/07/17 08:59 08/14/17 08:07 10 MG Atenolol (Tenormin Tab) 50 mg QAM PO 08/08/17 09:00 09/07/17 08:59 08/14/17 08:06 50 MG Isosorbide Mononitrate (Imdur Ext Rel Tab) 90 mg QAM PO 08/08/17 09:00 09/07/17 08:59 08/14/17 08:07 90 MG Simvastatin (Zocor Tab) 20 mg HS PO 08/07/17 21:00 09/06/17 20:59 08/13/17 21:10 20 MG Zolpidem Tartrate (Ambien Tab) 5 mg HS PRN PO 08/07/17 19:45 09/06/17 19:44 Miscellaneous Information (Order Awaiting Action) 1 ea QS N/A 08/08/17 00:00 09/07/17 00:00 Docusate Sodium (coLACE CAP) 100 mg HS PO 08/07/17 21:00 09/06/17 20:59 08/13/17 21:11 100 MG Psyllium Hydrophilic Mucilloid (Metamucil Powder) 1 pkt HS PO 08/07/17 21:00 09/06/17 20:59 08/13/17 21:10 1 PKT Albuterol/ Ipratropium (Duoneb) 3 ml Q6R INH 08/07/17 21:00 09/06/17 20:59 08/14/17 07:25 3 ML Albuterol Sulfate (Ventolin 0.083% 2.5MG/3ML Neb) 2.5 mg Q4R PRN INH 08/07/17 19:45 09/06/17 19:44 Acetaminophen (Tylenol Tab) 650 mg Q4H PRN PO 08/07/17 20:00 09/06/17 19:59 Al Hydrox/Mg Hydrox/Simethicone (Maalox Max Susp) 15 ml Q4H PRN PO 08/07/17 20:00 09/06/17 19:59 Magnesium Hydroxide (Milk Of Magnesia Susp) 30 ml Q12H PRN PO 08/07/17 20:00 09/06/17 19:59 Ondansetron HCl (Zofran Inj) 4 mg Q6H PRN IV 08/07/17 20:00 09/06/17 19:59 Nitroglycerin (Nitrostat Tab) 0.4 mg UD PRN SL 08/07/17 20:00 09/06/17 19:59 Morphine Sulfate (MoRPHine SULFATE INJ) 2 mg Q30M PRN IV 08/07/17 20:00 08/21/17 19:59 Polyethylene (Miralax Powder Packet) 17 gm DAILY PRN PO 08/07/17 20:00 09/06/17 19:59 Sitagliptin Phosphate (Januvia Tab) 25 mg QAM PO 08/09/17 09:00 09/08/17 08:59 Future Hold 08/09/17 07:48 25 MG Insulin Aspart (novoLOG ASPART) SLIDING SCALE If C... ACHS SC 08/09/17 16:30 09/08/17 16:29 08/14/17 08:12 9 UNITS Glucose (Glucose 40% Gel) 15-30 GRAMS 15 GRAMS... UD PRN PO 08/09/17 14:45 09/08/17 14:44 Glucose (Glucose Chew Tab) 4-8 Tablets 4 Tabl... UD PRN PO 08/09/17 14:45 09/08/17 14:44 Dextrose (Dextrose 50% 50ML Syringe) 25-50ML OF 50% DW IV FOR... UD PRN IV 08/09/17 14:45 09/08/17 14:44 Glucagon (Glucagon Inj) 1 mg UD PRN SQ 08/09/17 14:45 09/08/17 14:44 Insulin Glargine (Lantus Solostar Pen) 5 units HS SC 08/09/17 21:00 09/08/17 20:59 08/13/17 21:22 5 UNITS Warfarin Sodium (Coumadin Tab) 2.5 mg DAILY@16 PO 08/10/17 16:00 09/09/17 15:59 08/13/17 16:01 2.5 MG Guaifenesin (Mucinex Contr Rel Tab) 1,200 mg Q12 PO 08/10/17 13:30 09/09/17 13:29 08/14/17 08:07 1,200 MG Budesonide/ Formoterol Fumarate (Symbicort 160/ 4.5 Inh) 2 puffs BID INH 08/12/17 09:00 09/06/17 20:59 08/14/17 08:08 2 PUFFS Insulin Glargine (Lantus Solostar Pen) 15 units QAM SC 08/12/17 09:00 09/09/17 08:59 08/14/17 08:13 15 UNITS Losartan Potassium (coZAAR TAB) 25 mg QAM PO 08/14/17 10:30 09/13/17 10:29 Impression (1) Acute renal insufficiency (2) CKD (chronic kidney disease), stage III (3) Single kidney (4) COPD exacerbation (5) Chronic diastolic CHF (congestive heart failure) (6) Atrial fibrillation (7) Hypertension (8) Diabetes mellitus Cammy Zhu is a 77-year-old female with CKD III A3 (baseline creatinine 1.3 mg/dL), a single acquired R kidney, renovascular disease, cardiovascular disease, hypertension, DM II, and diastolic CHF. She was admitted with a COPD exacerbation and acute on chronic CHF. Volume status currently appears appropriate. I would suggest continuing a low dose loop diuretic (Furosemide 20 mg QOD, which could be converted to daily as needed) to encourage event to slightly negative fluid balance. UA documented a few hyaline cast as well as RBC and proteinuria. Will repeat this today. YUMIKO consistent with prerenal azotemia and normotensive ATN. Elevated but asymptomatic BP readings noted. Kidney function well improved. Suggest restarting a low dose Losartan today. Recommendations YUMIKO: -- Resolved -- Restart ARB -- Repeat metabolic profile tomorrow AM Hyponatremia: -- Improved -- HCTZ held -- Volume status appropriate -- Daily fluid intake <1500 ml Hypertension: -- Restart Losartan 25 mg daily today -- Consider switching atenolol to carvedilol CKD: -- Outpatient follow up with Dr. Cox within 1-2 weeks of discharge -- Repeat metabolic profile within 1 week of discharge
[2017-08-14] MEDS: WARFARIN SOD 2.5 MG TAB PO SCH (16:10)
[2017-08-14] MEDS ORDERED: SYMIN160 INH (16:57)
[2017-08-14] MEDS ORDERED: IPRASOL4 INH (16:57)
[2017-08-14] MEDS ORDERED: GFNSR600 PO (16:57)
[2017-08-14] MEDS ORDERED: FURO-85 PO (16:57)
[2017-08-14] MEDS ORDERED: PRED10TA PO (16:57)
--- NOTE | 2017-08-14 17:13 | Discharge Instructions ---
Discharge Instructions Date of Service Aug 14, 2017. Admission Reason for Admission: COPD exacerbation Discharge Discharge Diagnosis / Problem: COPD exacerbation and congestive heart failure - both improved Discharge Goals Goal(s): Learn about illness, Diagnostic testing, Therapeutic intervention Activity Recommendations Activity Limitations: as noted below For the next 2-3 days, as you recover from your hospital stay, please "take it easy." Would not do strenuous activities; light walking and household tasks are fine however. . Instructions / Follow-Up Instructions / Follow-Up From Dr. Pro - During your stay you were treated for a combination of COPD exacerbation ("flare -up"), congestive heart failure, and a rise in your kidney function. Your bronchitis/COPD is doing much better, the congestive heart failure is controlled, and your kidney function has improved to your typical baseline kidney level. 1. COPD - * please take a prednisone taper - start this TOMORROW on 08/15/17; the taper is for 7 days. Take the prednisone with food. * INCREASE your symbicort to 2 puffs TWICE A DAY every day. Rinse your mouth with water. If you have run out of your symbicort I have provided a new prescription. * TAKE duonebs (albuterol/ipratropium) every 4-6 hours as needed for cough/ wheezing. For the next few days you may want to consider taking the nebs every 4-6 hours SCHEDULED. After that you can likely use as needed. * we have filled out a form for you to be able to get a nebulizer machine for your home. * TAKE [id number] mucinex up to 1200mg twice a day as desired for cough. * follow-up with the pulmonary clinic as scheduled. 2. Congestive heart failure - * check your weight every morning (see below). * TAKE lasix (furosemide) 20mg EVERY OTHER DAY. Start this medication TOMORROW on 08/15/17. This is a water pill that will take the place of your hydrochlorothiazide that you had been previously taking. Other congestive heart failure instructions - Call your Primary Care doctor or Dr. Marcos's office if any of the following symptoms or problems start or get worse: * Shortness of breath or difficulty breathing * Wake up at night short of breath * Chest pain * Cough * Swelling of your hands, feet, or legs * More fatigued or tired with your normal activity * Palpitations - sudden fast heart beats WEIGHT * Weigh yourself every morning after using the bathroom. * Use the same scale. * Wear the same amount of clothing. * Write your weight down on a chart. * Call your Primary Care doctor or Dr. Marcos's office if you gain more than 2-3 pounds in 1-2 days. This can be a sign you are taking on extra fluid weight. MEDICATIONS * Use this discharge instruction sheet for medication instructions. * Take your medications at the time your doctor ordered. * Do not skip a dose of your medicines. * If you miss a dose of medicine, take it as soon as possible, but DO NOT DOUBLE A DOSE. * Read your medicine information when you get home. * Know all of the side effects of your medicine. If in doubt, ask your pharmacist * Call your Primary Care doctor's office if you have any side effects. * Be sure all of your doctors know what medicine and herbs you take (including cold, flu, and herbal medicine). Take the following with you to your follow-up doctor appointments: * Weight Chart * Medication List * List of questions 3. Kidney function - * your kidney function has improved to your baseline level while hospitalized * the nephrology team wants you to have a repeat blood draw/lab test THIS FridayAugust 18, to recheck your kidney function in the blood * you can have this drawn at the hospital or Dr. Headley's office or Dr. Marcos' s office 4. High blood pressure - * please check your blood pressures once a day at home and record them on a piece of paper * please show these numbers to Dr. Headley and Dr. Cox 5. Diabetes - * continue to check your blood sugars at home as previous * the numbers may be a little higher while you are on the prednisone * if you are running consistently higher than [address] Headley know 6. Resume your typical coumadin regimen upon return home. Your INR today is 2.1. Have your INR repeated within 1 week. 7. Follow-up - * See Dr. Headley's office as scheduled next week * See the pulmonary office as scheduled (lung specialist, Gavi CONRAD) * Dr. Cox's office will be calling you with an appointment for next week * See Dr. Marcos within 2-3 weeks 8. Return to [facility] if - * you have worsening shortness of breath * you develop chest pain * you develop fever over 100.4 degrees * any other concerns Current Hospital Diet Patient's current hospital diet: AHA Diet (Heart Healthy) Discharge Diet Recommended Diet: AHA Diet (Heart Healthy) Fluid Restriction: 1800 ml (7 cups) Procedures Procedures Performed: 1. multiple chest x-rays 2. echocardiogram showing low-normal heart function Pending Studies Studies pending at discharge: no Laboratory Results Hemoglobin A1c Test 08/08/17 07:14 Range/Units Estimated Average Glucose 148 mg/dl Hemoglobin A1c 6.8 H 4.5-5.6 % Medical Emergencies . Who to Call and When: Call 911 or go to the Emergency Room if: * If at any time you feel your situation is an emergency * You have tightness or pain in your chest that does not go away with rest or Nitroglycerin * You are very short of breath even with rest . Non-Emergent Contact Non-Emergency issues call your: Primary Care Provider Call Non-Emergent contact if: temperature is above 100.5, you have any medication questions . . "Provider Documentation" section prepared by Max Pro. .
--- NOTE | 2017-08-15 12:24 | Discharge Summary ---
Discharge Summary Date of Service Aug 15, 2017. Discharge Summary Admission Date: Aug 07, 2017 at 19:50 Discharge Date: Aug 14, 2017 Discharge Disposition: Home with services Principal Diagnosis: acute hypoxic respiratory failure Problems/Secondary Diagnoses: 1. COPD with exacerbation - improved 2. acute/chronic systolic CHF 3. acute kidney injury - resolved 4. solitary kidney 5. CKD stage 3 6. T2DM 7. pacemaker status 8. atrial fibrillation 9. hyponatremia - resolved 10. CAD s/p [place] in 1992 11. HTN 12. h/o renal cell carcinoma of left kidney s/p nephrectomy Immunizations: Have You Had Influenza Vaccine: Yes History of Tetanus Vaccine?: Yes History of Pneumococcal: Yes Pneumococcal Date: Dec 20, 2009 History of Hepatitis B Vaccine: Unknown Procedures: echocardiogram: * -- Conclusions -- * 1. Normal left ventricular size and systolic function. EF 50-55%. Mild hypokinesis involving the distal and apical portions of the septal and inferior wall segments. Mild concentric left ventricular hypertrophy. * 2. The right ventricle is mildly dilated. The right ventricular systolic function is normal as assessed by tricuspid annular plane systolic excursion ( TAPSE) (normal >1.5 cm). * 3. Severe biatrial dilation. * 4. Sclerotic aortic valve without significant stenosis. * 5. There is mild mitral regurgitation. * 6. There is moderate tricuspid regurgitation. * 7. Mildly elevated right ventricular systolic pressure; 45mmHg. * 8. Technically difficult study. * 9. Compared to prior study on 05/31/2016, mild wall motion abnormality noted on current study as above. Prior study however was enhanced with IV definity. pacemaker interrogation Consultations: cardiology - Kirill Marcos MD nephrology - Mic Richard DO PT, OT Medication Reconciliation New Medications: Furosemide (Lasix) 20 Mg Tab 20 MG PO Q2D, #30 TAB 1 Refill Prednisone (Prednisone) 10 Mg Tab 10 MG PO DIRECTED, #15 TAB 0 Refills start 08/15/17: take 3 tabs days 1-3, 2 tabs days 4/5, 1 tab days 6/7. Guaifenesin Ext Rel (Mucinex Ext Rel) 600 Mg Tabcr 1200 MG PO Q12, #60 TABS 0 Refills purchase [id number] Ipratropium-Albuterol (Duoneb) 3 Ml Nebu 3 ML INH Q6H PRN for cough/wheeze, #1 BOX 2 Refills dx - J44.9 Changed Medications: Budesonide/Formoterol Fumarate (Symbicort 160/4.5 Inhaler ) Aero 2 PUFFS INH BID, #1 INHALER 5 Refills (Changed from: HS; Refills: ) Continued Medications: Amlodipine Besylate (Norvasc) 10 Mg Tab 10 MG PO QAM, TAB Atenolol (Tenormin) 50 Mg Tab 50 MG PO QAM Calcium Carbonate-Vitamin D (Calcium 600+D) 1 Tab Tab 1 TAB PO QAM Cyanocobalamin (Vitamin B12) Unknown Strength Tab 1 TAB PO QAM Docusate Sodium (Docusate Sodium) 100 Mg Tab 100 MG PO HS Isosorbide Mononitrate Ext Rel (Imdur Ext Rel) 30 Mg Tabcr 90 MG PO QAM Losartan Potassium (Cozaar) 25 Mg Tab 25 MG PO QAM Multiple Vitamins W/ Minerals (Womens One Daily) 1 Tab Tab 1 TAB PO QAM Nitroglycerin (Nitrostat) 0.4 Mg Tab 0.4 MG UT UD PRN for Chest Pain, TAB PLACE ONE TABLET UNDER THE TONGUE EVERY 5 MINUTES FOR UP TO 3 DOSES OVER 15 MINUTES IF NEEDED FOR CHEST PAIN Psyllium (Metamucil) 48.57 % Pow 1 DOSE PO HS 2 TABLESPOONS Simvastatin (Zocor) 20 Mg Tab 20 MG PO HS Sitagliptin (Januvia) 25 Mg Tab 25 MG PO QAM, TAB Warfarin Sodium (Warfarin Sodium) 5 Mg Tab 2.5 MG PO 4XWK, TAB TAKE HALF A TABLET (2.5 MG) EVERY FRIDAY,FRIDAY,FRIDAY AND FRIDAY OR OTHERWISE DIRECTED TO TAKE BY ANTICOAGULATION CLINIC/MD Warfarin Sodium (Warfarin Sodium) 5 Mg Tab 5 MG PO 3XWK, TAB TAKE 5 MG EVERY FRIDAY,FRIDAY AND FRIDAY OR OTHERWISE DIRECTED TO TAKE BY ANTICOAGULATION CLINIC/MD Zolpidem Tartrate (Zolpidem Tartrate) 5 Mg Tab 5 MG PO HS PRN for Sleep [Cranberry Cap] () 42 MG PO BID Discontinued Medications: Azithromycin (Zithromax) 250 Mg Tab 250 MG PO UD, #6 TAB PRESCRIBED 08/06/2017, TAKE 2 TABLETS ON FIRST DAY THEN 1 TABLET DAILY UNTIL GONE Hydrochlorothiazide (Hydrochlorothiazide) 12.5 Mg Tab 12.5 MG PO QAM, TAB Referrals At Discharge Follow up Referrals: [employer] Referral - Within 1 Week with Lance Cox M.D. Discharge Exam Physical Exam: General Appearance: no apparent distress ENT: pharynx normal Neck: no JVD Respiratory/Chest: no respiratory distress, no accessory muscle use, + wheezing (mild end-exp, particularly the upper lobes) Cardiovascular: regular rate, rhythm, no gallop, no murmur, normal peripheral pulses Abdomen / GI: normal bowel sounds, non tender, soft, no organomegaly Extremities: no pedal edema, + pertinent finding (varicose veins, b/l legs, worse on left ) Neurologic/Psychiatric: alert, oriented x 3 Skin: no rash Hospital Course HISTORY OF PRESENT ILLNESS: 77 y/o female with history of HTN, CKD III, Atrial fibrillation s/p pacemaker, COPD, DM II, CAD, and chronic systolic CHF who presented with cough, fever, and dyspnea for 24 hours prior to admission. She denied CP, N/V/D or dysuria. On arrival to the ER she exhibited moderate respiratory distress with a saturation in the 70s and required BiPAP. Initial imaging was equivocal for pneumonia. HOSPITAL COURSE: The patient's acute hypoxic respiratory failure was likely from a combination of COPD exacerbation & acute/chronic CHF. The COPD was treated with steroids, antibiotics, and neb treatments. She was diuresed for the suspected acute/chronic CHF. In the midst of her diuresis her creatinine worsened and peaked at 2. She was seen in consult by both cardiology and nephrology for her various medical problems. With the above measures her oxygen requirement resolved and on day of discharge her O2 sats were >90% in room air both at rest & with walking. At discharge she was asked to take lasix every other day (in wen of HCTZ). Her other medications were left the same including losartan which had been held for a period of time due to her acute kidney injury. Discharge creatinine was 1.1. Her hospitalization was also complicated by acute hyponatremia, likely due to diuretic usage. Sodium normalized prior to discharge. With respect to her CAD she had no ischemic symptoms and normal troponin while hospitalized. Echo did in fact show a new wall motion abnormality but in light of no symptoms she did not undergo any ischemic evaluation. Echo showed EF of 50-55%. She should follow-up with Dr. Marcos after discharge for this. On day of discharge her INR was 2.1. She will resume her normal coumadin regimen as previous. She will complete a prednisone taper after discharge for her COPD. Pulmonary follow-up was advised for PFTs and for routine surveillance. She had been taking symbicort prior to admission but was only doing so once daily; she was instructed to increase it to twice daily dosing. A nebulizer machine was also provided to her. Total Time Spent: Greater than 30 minutes This includes examination of the patient, discharge planning, medication reconciliation, and communication with other providers. Discharge Instructions Please refer to the electronic Patient Visit Report (Discharge Instructions) for additional information. Follow-Up 1. Dr. Headley's office with Roma Mendoza PA-C on FridayAugust 19 at 2:00 pm. 2. [facility] Pulmonology Office with Gavi Small PA-C on FridayAugust 27 at 1: 30 pm. 3. [facility] Nephrology Office with Dr. Lance Cox within 1 week 4. [facility] Cardiology Office with Dr. Emre Marcos within 2-3 weeks Additional Copies To Lance Cox M.D.; Kirill Marcos M.D.; Dagoberto Headley M.D.; Roma Mendoza PA
== END 2017-08-14 18:42 | disposition home health service (06) | DRG 291 ==
LOC: EDBD 16:26 → C.EDB 16:27 → C.MED 19:50 → ENRESERV 21:28 → CANRESERV 21:28 → ENRESERV 21:29
PROVIDERS: ADMIT Internal Medicine; ATTEND Internal Medicine
DX: I13.0 Hypertensive heart and chronic kidney disease with heart failure and stage 1 through stage 4 chronic kidney disease, or unspecified chronic kidney disease (principal); J96.01 Acute respiratory failure with hypoxia; J44.1 Chronic obstructive pulmonary disease with (acute) exacerbation; I50.43 Acute on chronic combined systolic (congestive) and diastolic (congestive) heart failure; N17.9 Acute kidney failure, unspecified; E87.1 Hypo-osmolality and hyponatremia; N25.81 Secondary hyperparathyroidism of renal origin; I25.10 Atherosclerotic heart disease of native coronary artery without angina pectoris; E11.21 Type 2 diabetes mellitus with diabetic nephropathy; E78.5 Hyperlipidemia, unspecified; N18.3 Chronic kidney disease, stage 3 (moderate); Z90.5 Acquired absence of kidney; I25.2 Old myocardial infarction; Z87.891 Personal history of nicotine dependence; Z88.0 Allergy status to penicillin; I48.2 Chronic atrial fibrillation; Z95.0 Presence of cardiac pacemaker; M19.90 Unspecified osteoarthritis, unspecified site; E03.9 Hypothyroidism, unspecified; M85.80 Other specified disorders of bone density and structure, unspecified site; M48.01 Spinal stenosis, occipito-atlanto-axial region; Z88.8 Allergy status to other drugs, medicaments and biological substances; I27.20 Pulmonary hypertension, unspecified; Z79.01 Long term (current) use of anticoagulants; Z85.528 Personal history of other malignant neoplasm of kidney

== ENCOUNTER → 2017-08-18 | Outpatient (CLI) | payer BC, OTHER ==
[~2017-08-18] MED LIST changes: -AMLO-114 PO; +AMLO10TA2 PO; +CALC-342 PO; -CHOL1TAB63 PO; -CMD/25 PO; +CRANBERRY PO; +CYAN100020 PO; -CYAN1CAP3 PO; +FURO-85 PO; -GEMF600T3 PO; +GFNSR600 PO; +IPRASOL4 INH; +ISOS30TA35 PO; -JNV25 PO; -LDDP5 TD; -MRLP17 PO; +MULT-240 PO; -MULT-506 PO; +NTRGSL/4 UT; +PRED10TA PO; +PSYL48.59 PO; +SITA25TA PO; -TRAMTAB5 PO; -TRIM100T PO; +ZOLP5TAB6 PO
[2017-08-18 16:57] LABS: INR 2.1 (0.9-1.1)
[2017-08-18 17:07] LABS: BLOOD UREA NITROGEN 30 mg/dl (7-18); CALCIUM 8.6 mg/dl (8.5-10.1); CARBON DIOXIDE 25 mmol/L (21-32); CREATININE 1.19 mg/dl (0.60-1.20); GLUCOSE 150 mg/dl (70-99); PHOSPHORUS 2.6 mg/dl (2.5-4.9); POTASSIUM 4.4 mmol/L (3.5-5.1); SODIUM 138 mmol/L (136-145)
== END | disposition home or self-care (01) ==
LOC: C.LABBFT 11:31
PROVIDERS: ATTEND Internal Medicine Nephrology
DX: N18.3 Chronic kidney disease, stage 3 (moderate) (principal); I48.91 Unspecified atrial fibrillation

== ENCOUNTER → 2017-08-19 | Outpatient (CLI) | payer BC, OTHER | END | disposition home or self-care (01) | LOC: C.LABBFT 14:34 | PROVIDERS: ATTEND Internal Medicine Nephrology | DX: I10 Essential (primary) hypertension (principal); N18.3 Chronic kidney disease, stage 3 (moderate); N25.81 Secondary hyperparathyroidism of renal origin; R60.9 Edema, unspecified; E55.9 Vitamin D deficiency, unspecified; R80.9 Proteinuria, unspecified ==

== ENCOUNTER → 2017-08-27 | Outpatient (CLI) | payer BC ==
--- NOTE | 2017-08-27 15:37 | DIAGNOSTIC IMAGING REPORT ---
ULTRASOUND VENOUS DOPP LEFT LOWER EXT UNILAT CLINICAL HISTORY: Left leg swelling COMPARISON STUDY: None FINDINGS: Real-time and color flow Doppler imaging were performed. Flow was seen within the femoral, popliteal and calf veins with no intraluminal thrombus demonstrated. The saphenous vein is patent. IMPRESSION: No evidence of left lower extremity DVT. Electronically signed by: Eric Gonzalez M.D. 08/27/2017 3:36 PM Dictated Date/Time: 08/27/2017 3:31 PM
== END | disposition home or self-care (01) ==
LOC: C.ULTR 14:45
PROVIDERS: ATTEND Physician Assistant
DX: M79.89 Other specified soft tissue disorders (principal)

== ENCOUNTER 2017-09-08 16:58 | Emergency (ER) | payer BC ==
[~2017-09-08] VITALS: Ht 166.4 cm; Wt 93.3 kg
[2017-09-08 17:00] VITALS: TEMP 36.5; Ht 166.4 cm; Wt 93.3 kg
[2017-09-08] MEDS ORDERED: ACETAMINOPHEN 325 MG TAB PO STA (17:09)
[2017-09-08] MEDS ORDERED: SODIUM CHLORIDE 0.9% 500ML 500 ML IV STA (17:09)
--- NOTE | 2017-09-08 17:23 | EMERGENCY ROOM VISIT NOTE ---
History Report prepared by Diego: Adeola Keyes Under the Supervision of: Dr. Dariusz Cotter M.D. First contact with patient: 17:05 Chief Complaint: BACK PAIN Stated Complaint: BACK PAIN History of Present Illness The patient is a 77 year old female who presents to the Emergency Room with complaints of worsening back pain for the past few weeks. Her son reports she saw her PCP, Dr. Headley, earlier today, and was referred here to the ED for further evaluation. The patient states the pain is located in her mid-back and she rates her discomfort as a 4/10 in severity. Aspir-cream and Tylenol have provided minimal relief. Laying down worsens her pain. Her son notes she was here in the hospital 3 to 4 weeks ago with pneumonia and pleurisy. The patient also complains of minimal shortness of breath that is worsened by laying flat. She denies any fevers or increased cough. She denies any recent falls or urinary symptoms. She has experienced no vomiting, diarrhea or abdominal pain. The patient does take daily Coumadin. She takes Lasix every other day. She admits to a history of previous DVT's and complains of increased leg swelling, but states her [employer] took an ultrasound of her left leg and no clot was found. Source of History: patient Onset: past few weeks Position: back Symptom Intensity: 4/10 Timing: worsening Modifying Factors (Worsening): other (laying down) Modifying Factors (Relieving): tylenol, other (Aspir-cream) Associated Symptoms: + SOB, No fevers, No cough, No vomiting, No abdominal pain, No diarrhea, No urinary symptoms Review of Systems See HPI for pertinent positives & negatives. A total of 10 systems reviewed and were otherwise negative. Past Medical & Surgical Medical Problems: (1) Acute renal insufficiency (2) Atrial fibrillation (3) Bradycardia (4) CAD (coronary artery disease) (5) Chronic diastolic CHF (congestive heart failure) (6) CKD (chronic kidney disease), stage III (7) COPD exacerbation (8) COPD exacerbation (9) Diabetes mellitus (10) DM (diabetes mellitus) (11) DM (diabetes mellitus) (12) HTN (hypertension) (13) HTN (hypertension) (14) HTN (hypertension) (15) Hyperlipidemia (16) Hypertension (17) Hypertension (18) Intractable back pain (19) Intractable back pain (20) Pneumonia (21) Shortness of breath (22) Single kidney (23) UTI (urinary tract infection) Family History Cancer FH: pneumonia Heart disease Social History Smoking Status: Never Smoker Alcohol Use: none Drug Use: none Marital Status: Housing Status: lives with family Occupation Status: retired Current/Historical Medications Scheduled Amlodipine Besylate (Norvasc), 10 MG PO QAM Atenolol (Tenormin), 50 MG PO QAM Budesonide/Formoterol Fumarate (Symbicort 160/4.5 Inhaler ), 2 PUFFS INH BID Calcium Carbonate-Vitamin D (Calcium 600+D), 1 TAB PO QAM Cyanocobalamin (Vitamin B12), 1 TAB PO QAM Docusate Sodium (Docusate Sodium), 100 MG PO HS Furosemide (Lasix), 20 MG PO Q2D Guaifenesin Ext Rel (Mucinex Ext Rel), 1,200 MG PO Q12 Isosorbide Mononitrate Ext Rel (Imdur Ext Rel), 90 MG PO QAM Losartan Potassium (Cozaar), 25 MG PO QAM Multiple Vitamins W/ Minerals (Womens One Daily), 1 TAB PO QAM Prednisone (Prednisone), 10 MG PO DIRECTED Psyllium (Metamucil), 1 DOSE PO HS Simvastatin (Zocor), 20 MG PO HS Sitagliptin (Januvia), 25 MG PO QAM Warfarin Sodium (Warfarin Sodium), 2.5 MG PO 4XWK Warfarin Sodium (Warfarin Sodium), 5 MG PO 3XWK [Cranberry Cap], 42 MG PO BID Scheduled PRN Ipratropium-Albuterol (Duoneb), 3 ML INH Q6H PRN for cough/wheeze Nitroglycerin (Nitrostat), 0.4 MG UT UD PRN for Chest Pain Tramadol Hcl (Ultram), 50 MG PO Q6 PRN for Pain Zolpidem Tartrate (Zolpidem Tartrate), 5 MG PO HS PRN for Sleep Allergies Coded Allergies: Chlorthalidone (Verified Allergy, Unknown, UNK, 10/09/16) Penicillins (Verified Allergy, Unknown, 10/09/16) Physical Exam Vital Signs Date Time Temp Pulse Resp B/P (MAP) Pulse Ox O2 Delivery O2 Flow Rate FiO2 09/08/17 20:30 62 18 161/82 94 09/08/17 19:20 63 18 176/67 94 Room Air 09/08/17 17:00 36.5 80 24 152/75 95 Room Air Physical Exam GENERAL: Patient is in no acute distress. HEENT: No acute trauma, normocephalic atraumatic, mucous membranes moist, no nasal congestion, no scleral icterus. NECK: No stridor, no adenopathy, no meningismus, trachea is midline. LUNGS: No respiratory distress, equal breath sounds, crackles at the left base, no wheezing HEART: 4/6 systolic murmur, irregular rhythm, normal rate ABDOMEN: Soft, nontender, bowel sounds positive, no hernias, no peritonitis. BACK: Tenderness to right lower T-spine, just off the midline, no contusion, no rash, pain worsens with breathing and laying flat EXTREMITIES: No cyanosis, mild bilateral pedal edema, somewhat worse on left, full range of motion of all the joints without pain or difficulty, no signs for acute trauma. NEUROLOGIC: Oriented x 3, no acute motor or sensory deficits, no focal weakness. SKIN: No rash, no jaundice, no diaphoresis. Medical Decision & Procedures ER Provider Diagnostic Interpretation: Radiology results as stated below per my review and radiologist interpretation: CHEST ONE VIEW PORTABLE HISTORY: 77 years-old Female FLANK PAIN/HEMATURIA acute left flank and atypical chest pain COMPARISON: Chest radiographs 08/13/2017 TECHNIQUE: Portable AP view the chest FINDINGS: Cardiac silhouette is again enlarged. Atherosclerosis of the aorta. Single lead left subclavian pacer is unchanged with lead overlying the expected region of the right ventricle. Mild prominence of the pulmonary vasculature without pneumothorax or overt pulmonary edema. No large pleural effusion. Linear subsegmental left basilar opacities suggest atelectasis or scarring. Healed remote fractures involving the posterolateral right sixth and seventh ribs. Degenerative changes of the shoulders and spine. IMPRESSION: Cardiomegaly without acute process. The above report was generated using voice recognition software. It may contain grammatical, syntax or spelling errors. Electronically signed by: Boston Padron M.D. 09/08/2017 5:36 PM (CHEST FOR PE) ANGIO WITH HISTORY: 77 years-old Female presents with acute chest and back pain. TECHNIQUE: Multiple CTA images of the chest were obtained after the intravenous administration of 75 ml Optiray 320. Coronal and sagittal MIPS were obtained from the axial data set and were submitted for review. A dose lowering technique was utilized adhering to the principles of ALARA. COMPARISON: CT thoracic spine of same day, chest radiograph of same day, duplex venous Doppler study 08/27/2017, CT chest 05/23/2015. FINDINGS: CTA: Severe multichamber cardiac enlargement with coronary arterial calcifications. No pericardial effusion. Left subclavian pacer is noted with lead overlying the right ventricle. Aortic annular calcifications are noted along with moderate atherosclerosis of the thoracic aorta and proximal great vessels. There is no aortic aneurysm or dissection identified. Extensive vascular calcifications are seen throughout the imaged upper abdomen. Left vertebral artery emanates strictly from the aortic arch. There is dilation of the main pulmonary artery, 3.2 cm. No filling defects within the pulmonary arterial tree to suggest pulmonary thromboembolic disease. Study is mildly limited secondary to respiratory motion with segmental and subsegmental branches suboptimally visualized. CT CHEST: Mildly enlarged thyroid without dominant nodule identified. No pathologic adenopathy identified. Mild to moderate upper lobe predominant emphysema. No pneumothorax or pleural effusion. Mild dependent subsegmental bibasilar atelectasis. 4 mm solid nodule of the medial segment right middle lobe, image 152 series 4 which is unchanged compatible with benign etiology. Subpleural calcified granuloma of the superior segment left lower lobe. Mild bilateral bronchial wall thickening. No overt pulmonary edema. Mild mosaic attenuation suggest air-trapping. Benign-appearing 3 mm solid nodule of the superior segment left lower lobe, image 270 series 4. Central airways are patent. Nonspecific right perinephric stranding. Mild thickening about the left adrenal gland. No acute processes of the imaged upper abdomen. Soft tissues are within normal limits. The bones appear demineralized and intact. Please see separately dictated CT thoracic spine of same day for discussion of the thoracic spine vertebral bodies. IMPRESSION: 1. Marked cardiomegaly without acute aortic pathology or evidence of pulmonary thromboembolic disease. 2. Dilation of the main pulmonary artery may be secondary to pulmonary arterial hypertension within the appropriate clinical setting. 3. Emphysema with mild bilateral bronchial wall thickening. 4. No lobar airspace consolidation or pathologic adenopathy. The above report was generated using voice recognition software. It may contain grammatical, syntax or spelling errors. Electronically signed by: Boston Padron M.D. 09/08/2017 7:29 PM THORACIC SPINE WITHOUT HISTORY: 77 years-old Female pain, lower t spine, poss fx acute low back pain with concern for spinal fracture. COMPARISON: CTA chest of same day, chest radiographs 08/13/2017, CT chest 05/23/2015 TECHNIQUE: Multiple axial CT images of the thoracic spine were obtained without the use of IV contrast. A dose lowering technique was used consistent with the principals of RAMSES. FINDINGS: Note is made of bilateral cervical ribs at C7. Bones appear demineralized. There is an acute 25% anterior endplate compression deformity of the T3 vertebral body, image 34 series 501 and 500. Mild paraspinal edema at this level. There is 3 mm retropulsion of the inferior aspect posterior endplate on the left, image 35 series 501. This causes mild left lateral recess narrowing without significant central canal or foraminal narrowing. No additional acute fracture or subluxation identified. Posterior elements appear intact. Multilevel advanced facet arthrosis with prominent spondylitic spurring. Mostly mild multilevel intervertebral disc space narrowing is also present. No acute displaced rib fracture identified. Mild convex right curvature of the midthoracic spine. IMPRESSION: 1. Acute 25% anterior endplate compression deformity of the T3 vertebral body with 3 mm retropulsion resulting in mild left lateral recess stenosis without significant central canal or foraminal narrowing. 2. Osteopenic appearance of the bones. 3. Multilevel degenerative changes as above. 4. Incidental note is made of bilateral cervical ribs at C7. The above report was generated using voice recognition software. It may contain grammatical, syntax or spelling errors. Electronically signed by: Boston Padron M.D. 09/08/2017 7:38 PM Laboratory Results 09/08/17 17:30 Red Blood Count 4.57, Mean Corpuscular Volume 87.3, Mean Corpuscular Hemoglobin 29.5, Mean Corpuscular Hemoglobin Concent 33.8, Mean Platelet Volume 9.4, Neutrophils (%) (Auto) 62.8, Lymphocytes (%) (Auto) 22.8, Monocytes (%) (Auto) 9.4, Eosinophils (%) (Auto) 3.1, Basophils (%) (Auto) 0.3, Neutrophils # (Auto) 3.82, Lymphocytes # (Auto) 1.39, Monocytes # (Auto) 0.57, Eosinophils # (Auto) 0.19, Basophils # (Auto) 0.02 09/08/17 17:30 Test 09/08/17 17:30 White Blood Count 6.09 K/uL (4.8-10.8) Red Blood Count 4.57 M/uL (4.2-5.4) Hemoglobin 13.5 g/dL (12.0-16.0) Hematocrit 39.9 % (37-47) Mean Corpuscular Volume 87.3 fL (80-100) Mean Corpuscular Hemoglobin 29.5 pg (25-34) Mean Corpuscular Hemoglobin Concent 33.8 g/dl (32-36) Platelet Count 220 K/uL (130-400) Mean Platelet Volume 9.4 fL (7.4-10.4) Neutrophils (%) (Auto) 62.8 % Lymphocytes (%) (Auto) 22.8 % Monocytes (%) (Auto) 9.4 % Eosinophils (%) (Auto) 3.1 % Basophils (%) (Auto) 0.3 % Neutrophils # (Auto) 3.82 K/uL (1.4-6.5) Lymphocytes # (Auto) 1.39 K/uL (1.2-3.4) Monocytes # (Auto) 0.57 K/uL (0.11-0.59) Eosinophils # (Auto) 0.19 K/uL (0-0.5) Basophils # (Auto) 0.02 K/uL (0-0.2) RDW Standard Deviation 45.4 fL (36.4-46.3) RDW Coefficient of Variation 14.3 % (11.5-14.5) Immature Granulocyte % (Auto) 1.6 % Immature Granulocyte # (Auto) 0.10 K/uL (0.00-0.02) Prothrombin Time 21.1 SECONDS (9.0-12.0) Prothromb Time International Ratio 2.0 (0.9-1.1) Activated Partial Thromboplast Time 41.6 SECONDS (21.0-31.0) Partial Thromboplastin Ratio 1.6 Urine Color YELLOW Urine Appearance CLEAR (CLEAR) Urine pH 8.0 (4.5-7.5) Urine Specific [place] 1.010 (1.000-1.030) Urine Protein TRACE (NEG) Urine Glucose (UA) NEG (NEG) Urine Ketones NEG (NEG) Urine Occult Blood TRACE (NEG) Urine Nitrite NEG (NEG) Urine Bilirubin NEG (NEG) Urine Urobilinogen NEG (NEG) Urine Leukocyte Esterase NEG (NEG) Urine WBC (Auto) 1-5 /hpf (0-5) Urine RBC (Auto) 0-4 /hpf (0-4) Urine Hyaline Casts (Auto) 0 /lpf (0-5) Urine Epithelial Cells (Auto) 10-20 /lpf (0-5) Urine Bacteria (Auto) NEG (NEG) Anion Gap 5.0 mmol/L (3-11) Est Creatinine Clear Calc Drug Dose 41.9 ml/min Estimated GFR () 47.8 Estimated GFR (Non- 41.3 BUN/Creatinine Ratio 13.5 (10-20) Calcium Level 9.6 mg/dl (8.5-10.1) Total Bilirubin 0.5 mg/dl (0.2-1) Aspartate Amino Transf (AST/SGOT) 21 U/L (15-37) Alanine Aminotransferase (ALT/SGPT) 23 U/L (12-78) Alkaline Phosphatase 63 U/L (45-117) Total Protein 7.4 gm/dl (6.4-8.2) Albumin 3.7 gm/dl (3.4-5.0) Globulin 3.7 gm/dl (2.5-4.0) Albumin/Globulin Ratio 1.0 (0.9-2) Lipase 128 U/L (73-393) Laboratory results reviewed by me. Medications Administered Medications (Trade) Dose Ordered Sig/Tayler Route Start Time Stop Time Status Last Admin Dose Admin Sodium Chloride 500 ml @ 999 mls/hr Q31M STAT IV 09/08/17 17:09 09/08/17 17:39 DC 09/08/17 17:52 999 MLS/HR Acetaminophen (Tylenol Tab) 650 mg NOW STAT PO 09/08/17 17:09 09/08/17 17:15 DC 09/08/17 17:53 650 MG Tramadol HCl (Ultram Home Pack) 1 homepack UD ONCE PO 09/08/17 20:00 09/08/17 20:01 DC 09/08/17 20:26 1 HOMEPACK ED Course 1707: The patient was evaluated in room C2. A complete history and physical exam was performed. 1709: Acetaminophen 650 mg PO, NSS 500 ml @ 999 mls/hr IV. 1955: I reevaluated the patient. She is feeling well and resting comfortably. I discussed her results and discharge instructions and she verbalized complete understanding and agreement. 2000: Tramadol 1 homepack PO. Medical Decision The differential diagnoses considered include PE, pleurisy, rib fracture, pneumonia, aortic dissection, compression fracture, UTI, pyelonephritis, renal colic, nerve impingement, and musculoskeletal pain. There is no leukocytosis or worrisome anemia. No significant electrolyte abnormality, kidney failure or hepatitis. There is no pancreatitis. Urinalysis does not show infection. Chest x-ray does not show pneumonia, mediastinal widening or pneumothorax. EKG shows a sinus rhythm, no acute ischemia. Cardiac enzyme testing 1 is not consistent with acute cardiac injury. Chest CT does not show PE or evidence for aortic dissection. Thoracic spine CT shows a T3 compression fracture. Patient received IV saline, oral Tylenol. She is more comfortable. The patient has a T3 compression fracture. This is causing her pain. She is being discharged with a prescription for tramadol. Heat, Tylenol were also suggested. She will follow with her doctors office for a recheck. [place] Drug Monitoring Program Search Results: patient reviewed within database, no issues identified Drug Monitoring Findings: No matching records found Medication Reconcilliation Current Medication List: was personally reviewed by me Blood Pressure Screening Patient's blood pressure: Elevated blood pressure Blood pressure disposition: Referred to PCP Impression Primary Impression: Non-traumatic compression fracture of T3 thoracic vertebra Additional Impressions: Thoracic back pain Pleuritic pain Scribe Attestation The scribe's documentation has been prepared under my direction and personally reviewed by me in its entirety. I confirm that the note above accurately reflects all work, treatment, procedures, and medical decision making performed by me. Departure Information Dispostion Home / Self-Care Prescriptions Tramadol Hcl (ULTRAM) 50 Mg Tab 50 MG PO Q6 Y for Pain, #12 TAB PRN PAIN Prov: Dariusz Cotter M.D. 09/08/17 Referrals Dagoberto Headley M.D. (PCP) Patient Instructions [facility] Additional Instructions follow with your doctor this week for a recheck may use tylenol for pain may use tramadol for pain 1 tab every 6 hours heat to the area may help the pain return for worsening symptoms you have a T3 compression fracture diagnosed by CT scan Problem Qualifiers
[2017-09-08] MEDS ORDERED: OPTIRAY 320 IV PRN (17:30)
--- NOTE | 2017-09-08 17:38 | DIAGNOSTIC IMAGING REPORT ---
CHEST ONE VIEW PORTABLE HISTORY: 77 years-old Female FLANK PAIN/HEMATURIA acute left flank and atypical chest pain COMPARISON: Chest radiographs 08/13/2017 TECHNIQUE: Portable AP view the chest FINDINGS: Cardiac silhouette is again enlarged. Atherosclerosis of the aorta. Single lead left subclavian pacer is unchanged with lead overlying the expected region of the right ventricle. Mild prominence of the pulmonary vasculature without pneumothorax or overt pulmonary edema. No large pleural effusion. Linear subsegmental left basilar opacities suggest atelectasis or scarring. Healed remote fractures involving the posterolateral right sixth and seventh ribs. Degenerative changes of the shoulders and spine. IMPRESSION: Cardiomegaly without acute process. The above report was generated using voice recognition software. It may contain grammatical, syntax or spelling errors. Electronically signed by: Boston Padron M.D. 09/08/2017 5:36 PM Dictated Date/Time: 09/08/2017 5:35 PM
[2017-09-08 17:59] LABS: BASO % 0.3 %; BASO ABS # 0.02 K/uL (0-0.2); EOS % 3.1 %; EOS ABS # 0.19 K/uL (0-0.5); HEMATOCRIT 39.9 % (37-47); HEMOGLOBIN 13.5 g/dL (12.0-16.0); LYMPH % 22.8 %; LYMPH ABS # 1.39 K/uL (1.2-3.4); MEAN CELL VOLUME 87.3 fL (80-100); MEAN CORPUSCULAR HEMOGLOBIN 29.5 pg (25-34); MEAN CORPUSCULAR HGB CONC 33.8 g/dl (32-36); MEAN PLATELET VOLUME 9.4 fL (7.4-10.4); MONO % 9.4 %; MONO ABS # 0.57 K/uL (0.11-0.59); NEUT % 62.8 %; NEUT ABS # 3.82 K/uL (1.4-6.5); PLATELET COUNT 220 K/uL (130-400); RED CELL DISTRIBUTION WIDTH CV 14.3 % (11.5-14.5); RED CELL DISTRIBUTION WIDTH SD 45.4 fL (36.4-46.3); WHITE BLOOD COUNT 6.09 K/uL (4.8-10.8)
[2017-09-08 18:03] LABS: PTT PATIENT 41.6 SECONDS (21.0-31.0)
[2017-09-08 18:19] LABS: ALBUMIN 3.7 gm/dl (3.4-5.0); CALCIUM 9.6 mg/dl (8.5-10.1); CREATININE 1.24 mg/dl (0.60-1.20); POTASSIUM 4.1 mmol/L (3.5-5.1); TOTAL PROTEIN 7.4 gm/dl (6.4-8.2)
--- NOTE | 2017-09-08 19:30 | DIAGNOSTIC IMAGING REPORT ---
(CHEST FOR PE) ANGIO WITH HISTORY: 77 years-old Female presents with acute chest and back pain. TECHNIQUE: Multiple CTA images of the chest were obtained after the intravenous administration of 75 ml Optiray 320. Coronal and sagittal MIPS were obtained from the axial data set and were submitted for review. A dose lowering technique was utilized adhering to the principles of ALARA. COMPARISON: CT thoracic spine of same day, chest radiograph of same day, duplex venous Doppler study 08/27/2017, CT chest 05/23/2015. FINDINGS: CTA: Severe multichamber cardiac enlargement with coronary arterial calcifications. No pericardial effusion. Left subclavian pacer is noted with lead overlying the right ventricle. Aortic annular calcifications are noted along with moderate atherosclerosis of the thoracic aorta and proximal great vessels. There is no aortic aneurysm or dissection identified. Extensive vascular calcifications are seen throughout the imaged upper abdomen. Left vertebral artery emanates strictly from the aortic arch. There is dilation of the main pulmonary artery, 3.2 cm. No filling defects within the pulmonary arterial tree to suggest pulmonary thromboembolic disease. Study is mildly limited secondary to respiratory motion with segmental and subsegmental branches suboptimally visualized. CT CHEST: Mildly enlarged thyroid without dominant nodule identified. No pathologic adenopathy identified. Mild to moderate upper lobe predominant emphysema. No pneumothorax or pleural effusion. Mild dependent subsegmental bibasilar atelectasis. 4 mm solid nodule of the medial segment right middle lobe, image 152 series 4 which is unchanged compatible with benign etiology. Subpleural calcified granuloma of the superior segment left lower lobe. Mild bilateral bronchial wall thickening. No overt pulmonary edema. Mild mosaic attenuation suggest air-trapping. Benign-appearing 3 mm solid nodule of the superior segment left lower lobe, image 270 series 4. Central airways are patent. Nonspecific right perinephric stranding. Mild thickening about the left adrenal gland. No acute processes of the imaged upper abdomen. Soft tissues are within normal limits. The bones appear demineralized and intact. Please see separately dictated CT thoracic spine of same day for discussion of the thoracic spine vertebral bodies. IMPRESSION: 1. Marked cardiomegaly without acute aortic pathology or evidence of pulmonary thromboembolic disease. 2. Dilation of the main pulmonary artery may be secondary to pulmonary arterial hypertension within the appropriate clinical setting. 3. Emphysema with mild bilateral bronchial wall thickening. 4. No lobar airspace consolidation or pathologic adenopathy. The above report was generated using voice recognition software. It may contain grammatical, syntax or spelling errors. Electronically signed by: Boston Padron M.D. 09/08/2017 7:29 PM Dictated Date/Time: 09/08/2017 7:19 PM
--- NOTE | 2017-09-08 19:39 | DIAGNOSTIC IMAGING REPORT ---
THORACIC SPINE WITHOUT HISTORY: 77 years-old Female pain, lower t spine, poss fx acute low back pain with concern for spinal fracture. COMPARISON: CTA chest of same day, chest radiographs 08/13/2017, CT chest 05/23/2015 TECHNIQUE: Multiple axial CT images of the thoracic spine were obtained without the use of IV contrast. A dose lowering technique was used consistent with the principals of RAMSES. FINDINGS: Note is made of bilateral cervical ribs at C7. Bones appear demineralized. There is an acute 25% anterior endplate compression deformity of the T3 vertebral body, image 34 series 501 and 500. Mild paraspinal edema at this level. There is 3 mm retropulsion of the inferior aspect posterior endplate on the left, image 35 series 501. This causes mild left lateral recess narrowing without significant central canal or foraminal narrowing. No additional acute fracture or subluxation identified. Posterior elements appear intact. Multilevel advanced facet arthrosis with prominent spondylitic spurring. Mostly mild multilevel intervertebral disc space narrowing is also present. No acute displaced rib fracture identified. Mild convex right curvature of the midthoracic spine. IMPRESSION: 1. Acute 25% anterior endplate compression deformity of the T3 vertebral body with 3 mm retropulsion resulting in mild left lateral recess stenosis without significant central canal or foraminal narrowing. 2. Osteopenic appearance of the bones. 3. Multilevel degenerative changes as above. 4. Incidental note is made of bilateral cervical ribs at C7. The above report was generated using voice recognition software. It may contain grammatical, syntax or spelling errors. Electronically signed by: Boston Padron M.D. 09/08/2017 7:38 PM Dictated Date/Time: 09/08/2017 7:32 PM
[2017-09-08] MEDS ORDERED: TRAMADOL HCL 50 MG HOME PACK PO ONE (20:00)
[2017-09-08] MEDS ORDERED: ULT/50 PO (20:04)
[2017-09-08 20:30] VITALS: BP 161/82; PULSE 62; O2SAT 94
== END 2017-09-08 20:30 | disposition home or self-care (01) ==
LOC: C.EDB 16:59 → C.EDC 20:30
DX: M48.54XA Collapsed vertebra, not elsewhere classified, thoracic region, initial encounter for fracture (principal); R07.81 Pleurodynia; I25.10 Atherosclerotic heart disease of native coronary artery without angina pectoris; I13.0 Hypertensive heart and chronic kidney disease with heart failure and stage 1 through stage 4 chronic kidney disease, or unspecified chronic kidney disease; E11.22 Type 2 diabetes mellitus with diabetic chronic kidney disease; I50.32 Chronic diastolic (congestive) heart failure; N18.3 Chronic kidney disease, stage 3 (moderate); J44.9 Chronic obstructive pulmonary disease, unspecified; E78.5 Hyperlipidemia, unspecified; Z87.440 Personal history of urinary (tract) infections; Z86.718 Personal history of other venous thrombosis and embolism; Z87.01 Personal history of pneumonia (recurrent); Z88.0 Allergy status to penicillin; Z88.8 Allergy status to other drugs, medicaments and biological substances; Z83.6 Family history of other diseases of the respiratory system; Z79.01 Long term (current) use of anticoagulants; Z79.899 Other long term (current) drug therapy

== ENCOUNTER 2017-11-04 15:53 | Inpatient (IN) | payer BC, OTHER ==
[~2017-11-04] VITALS: Ht 167.6 cm; Wt 91.9 kg
[~2017-11-04 15:53] MED LIST changes: +IPRA-64 INH; -IPRASOL4 INH; +ULT/50 PO
--- NOTE | 2017-11-04 16:35 | EMERGENCY ROOM VISIT NOTE ---
History Report prepared by Diego: Steven Segovia Under the Supervision of: Dr. Lucho Marino M.D. First contact with patient: 16:14 Chief Complaint: BACK PAIN Stated Complaint: BACK PAIN, HURTS TO BREATH History of Present Illness The patient is a 77 year old white female with a past medical history of a-fib, CAD, CHF, CKD, COPD, DM, HTN, HLD, who presents to the ED with a cc of worsening back pain beginning three days ago. Positive productive cough with green phlegm, radiating pain to her right shoulder, SOB secondary to pain and exertion. Negative recent heavy lifting, straining, pops, sudden twisting, chest pain, smoking, recent antibiotic use, difficulty urinating or passing stool, new swelling in her legs. Pt states she was evaluated at the end of August and diagnosed with a compression fracture. She reports she followed up with her PCP and had a shot of medication. Pt notes her current symptoms feel similar to her previous visit. She states she also followed up with her benefits advisor and physical director. Pt reports nothing makes her symptoms better or worse. She notes she has completed little PT since her last visit. Pt states she had to stop because it was too painful. She reports she cannot wear a bra because it hurts. Pt notes she last took Tylenol 4.5 hours ago with minimal relief. Review of EMR shows the patient was seen in late August. She had a CT of the chest and thoracic spine. Her chest was negative for a PE or aortic dissection. Her thoracic spine showed a T3 compression fracture. Source of History: patient Onset: three days ago Position: back Timing: worsening Modifying Factors (Relieving): tylenol (minimal) Associated Symptoms: + cough, + SOB, No chest pain Note: Associated symptoms: radiating pain to her right shoulder Negative: recent heavy lifting, straining, pops, sudden twisting, smoking, recent antibiotic use, difficulty urinating or passing stool, new swelling in her legs. Review of Systems See HPI for pertinent positives and negatives. A total of ten systems were reviewed and were otherwise negative. Past Medical & Surgical Medical Problems: (1) Acute renal insufficiency (2) Atrial fibrillation (3) Bradycardia (4) CAD (coronary artery disease) (5) Chronic diastolic CHF (congestive heart failure) (6) CKD (chronic kidney disease), stage III (7) COPD exacerbation (8) COPD exacerbation (9) Diabetes mellitus (10) DM (diabetes mellitus) (11) DM (diabetes mellitus) (12) HTN (hypertension) (13) HTN (hypertension) (14) HTN (hypertension) (15) Hyperlipidemia (16) Hypertension (17) Hypertension (18) Intractable back pain (19) Intractable back pain (20) Pneumonia (21) Shortness of breath (22) Single kidney (23) UTI (urinary tract infection) Family History Cancer FH: pneumonia Heart disease Social History Smoking Status: Never Smoker Alcohol Use: none Drug Use: none Marital Status: Housing Status: lives with family Occupation Status: retired Current/Historical Medications Scheduled Amlodipine Besylate (Norvasc), 10 MG PO QAM Atenolol (Tenormin), 50 MG PO QAM Budesonide/Formoterol Fumarate (Symbicort 160/4.5 Inhaler ), 2 PUFFS INH BID Calcium Carbonate-Vitamin D (Calcium 600+D), 1 TAB PO QAM Cyanocobalamin (Vitamin B12), 1 TAB PO QAM Docusate Sodium (Docusate Sodium), 100 MG PO HS Furosemide (Lasix), 20 MG PO Q2D Guaifenesin Ext Rel (Mucinex Ext Rel), 1,200 MG PO Q12 Isosorbide Mononitrate Ext Rel (Imdur Ext Rel), 90 MG PO QAM Losartan Potassium (Cozaar), 25 MG PO QAM Multiple Vitamins W/ Minerals (Womens One Daily), 1 TAB PO QAM Psyllium (Metamucil), 1 DOSE PO HS Simvastatin (Zocor), 20 MG PO HS Sitagliptin (Januvia), 25 MG PO QAM Warfarin Sodium (Warfarin Sodium), 2.5 MG PO 4XWK Warfarin Sodium (Warfarin Sodium), 5 MG PO 3XWK Scheduled PRN Ipratropium-Albuterol (Duoneb), 3 ML INH Q6H PRN for cough/wheeze Nitroglycerin (Nitrostat), 0.4 MG UT UD PRN for Chest Pain Oxycodone Hcl (Oxycontin), Unknown Dose PO Q12 PRN for Pain Tramadol Hcl (Ultram), 50 MG PO Q6 PRN for Pain Allergies Coded Allergies: Chlorthalidone (Verified Allergy, Unknown, UNK, 11/04/17) Penicillins (Verified Allergy, Unknown, 7/17/18) Physical Exam Vital Signs Date Time Temp Pulse Resp B/P (MAP) Pulse Ox O2 Delivery O2 Flow Rate FiO2 11/04/17 19:42 62 21 170/69 98 Nasal Cannula 2.0 11/04/17 17:40 60 20 194/74 91 Room Air 11/04/17 16:07 37.3 70 18 150/68 95 Room Air Physical Exam GENERAL: Awake, alert, well-appearing, NAD HENT: Normocephalic, atraumatic. EYES: Normal conjunctiva. Sclera non-icteric. PERRL. No anisocoria. NECK: Supple. No nuchal rigidity. FROM. RESPIRATORY: CTAB, no rhonchi, wheezing, crackles CARDIAC: RRR, no MRG ABDOMEN: Soft, NTND, BS+ MSK: No chest wall TTP, trace pretibial edema bilaterally. High thoracic midline TTP. No step off. No calf pain. Negative Chica's sign. Device in left chest. NEURO: GCS 15, CN 2-12 intact, moves all 4s on command SKIN: No rash or jaundice noted. Medical Decision & Procedures ER Provider Diagnostic Interpretation: Radiology results as stated below per my review and radiologist interpretation: THORACIC SPINE 3 VIEWS ROUTINE CLINICAL HISTORY: History of T3 fracture. Reproducible back pain. COMPARISON STUDY: CT of the thoracic spine September 08, 2017. FINDINGS: An old moderate T3 compression fracture is similar to CT of September 08, 2017. There has been interval development of a suspected mild T4 compression fracture. Extensive anterior osteophytosis within the mid to lower thoracic spine is noted. No additional compression fractures are identified by radiography. Minimal rightward curvature of the lumbar spine is again noted. A left subclavian pacer is noted with marked cardiomegaly. IMPRESSION: 1. Interval development of a suspected mild T4 compression fracture since CT of September 08, 2017. 2. No change in a moderate T3 compression fracture since prior CT. 3. Extensive anterior osteophytosis of the mid to lower thoracic spine. Electronically signed by: Jorgito Oseguera M.D. 11/04/2017 6:27 PM Dictated Date/Time: 11/04/2017 6:22 PM CHEST 2 VIEWS ROUTINE CLINICAL HISTORY: Cough. Shortness of breath. COMPARISON STUDY: Chest radiograph and chest CT September 08, 2017. FINDINGS: Single lead left subclavian pacemaker is in place. Marked cardiomegaly is noted. Mild interstitial thickening may reflect mild interstitial edema. There is a trace left pleural effusion. Right perihilar/right lower lobe airspace opacity has developed since prior exam. Left basilar opacity favors atelectasis. Old right-sided rib fractures are incidentally noted. IMPRESSION: 1. Interval development of right lower lobe airspace opacity which favors pneumonia. Post treatment radiographs to ensure resolution are recommended. 2. Suspected mild interstitial pulmonary edema. Trace left pleural effusion. 3. Marked cardiomegaly. Electronically signed by: Jorgito Oseguera M.D. 11/04/2017 6:22 PM Dictated Date/Time: 11/04/2017 6:19 PM Laboratory Results 11/04/17 17:20 Red Blood Count 3.98, Mean Corpuscular Volume 87.2, Mean Corpuscular Hemoglobin 29.6, Mean Corpuscular Hemoglobin Concent 34.0, Mean Platelet Volume 10.5, Neutrophils (%) (Auto) 77.5, Lymphocytes (%) (Auto) 13.2, Monocytes (%) (Auto) 8.7, Eosinophils (%) (Auto) 0.1, Basophils (%) (Auto) 0.2, Neutrophils # (Auto) 10.76, Lymphocytes # (Auto) 1.83, Monocytes # (Auto) 1.21, Eosinophils # (Auto) 0.02, Basophils # (Auto) 0.03 11/04/17 17:20 Test 11/04/17 17:20 White Blood Count 13.89 K/uL (4.8-10.8) Red Blood Count 3.98 M/uL (4.2-5.4) Hemoglobin 11.8 g/dL (12.0-16.0) Hematocrit 34.7 % (37-47) Mean Corpuscular Volume 87.2 fL (80-100) Mean Corpuscular Hemoglobin 29.6 pg (25-34) Mean Corpuscular Hemoglobin Concent 34.0 g/dl (32-36) Platelet Count 163 K/uL (130-400) Mean Platelet Volume 10.5 fL (7.4-10.4) Neutrophils (%) (Auto) 77.5 % Lymphocytes (%) (Auto) 13.2 % Monocytes (%) (Auto) 8.7 % Eosinophils (%) (Auto) 0.1 % Basophils (%) (Auto) 0.2 % Neutrophils # (Auto) 10.76 K/uL (1.4-6.5) Lymphocytes # (Auto) 1.83 K/uL (1.2-3.4) Monocytes # (Auto) 1.21 K/uL (0.11-0.59) Eosinophils # (Auto) 0.02 K/uL (0-0.5) Basophils # (Auto) 0.03 K/uL (0-0.2) RDW Standard Deviation 44.8 fL (36.4-46.3) RDW Coefficient of Variation 14.0 % (11.5-14.5) Immature Granulocyte % (Auto) 0.3 % Immature Granulocyte # (Auto) 0.04 K/uL (0.00-0.02) Anion Gap 6.0 mmol/L (3-11) Est Creatinine Clear Calc Drug Dose 46.7 ml/min Estimated GFR () 50.8 Estimated GFR (Non- 43.8 BUN/Creatinine Ratio 16.8 (10-20) Calcium Level 9.0 mg/dl (8.5-10.1) Magnesium Level 2.0 mg/dl (1.8-2.4) Troponin I < 0.015 ng/ml (0-0.045) Laboratory results reviewed by me Medications Administered Medications (Trade) Dose Ordered Sig/Tayler Route Start Time Stop Time Status Last Admin Dose Admin Morphine Sulfate (MoRPHine SULFATE INJ) 4 mg NOW STAT IV 11/04/17 16:36 11/04/17 16:39 DC 11/04/17 17:37 4 MG Cefepime HCl 1000 mg/Dextrose 111 ml @ 200 mls/hr ONE STAT IV 11/04/17 19:11 11/04/17 19:44 DC 11/04/17 20:19 200 MLS/HR Morphine Sulfate (MoRPHine SULFATE INJ) 4 mg Q4H PRN IV 11/04/17 21:15 11/18/17 21:14 11/04/17 22:49 4 MG ECG Per My Interpretation Indication: back/shoulder pain Rate (beats per minute): 63 Rhythm: other (v-paced) Findings: LBBB, T-wave inversion (inferiorly located in the non-paced lead; during the v-paced leads, TWI throughout AVL), other (wide QRS) Comparison ECG Date: 08/07/17 Change: v-paced rhythm has not changed. No non-v-paced beats seen. ED Course 162: The patient was evaluated in room C09. A complete history and physical exam was performed. 1842: I reevaluated the patient. I updated her of her current test results. 1912: I discussed the patient's case with Dr. Chapa, Orthopedic spine surgeon. He will evaluate the patient as an inpatient. 1915: Upon reexamination, the patient was resting. I discussed the test results and treatment plan with her and her family. The patient will be evaluated for further management. 2018: I discussed the patient's case with Dr. Patricia, [facility] Hospitalist. The patient will be evaluated for further management and care. Medical Decision The patient is a 77 year old white female with a past medical history of a-fib, CAD, CHF, CKD, COPD, DM, HTN, HLD, who presents to the ED with a cc of worsening back pain beginning three days ago. Nursing notes reviewed. Ancillary studies and prior records reviewed. Review of EMR shows the patient was seen in late August. She had a CT of the chest and thoracic spine. Her chest was negative for a PE or aortic dissection. Her thoracic spine showed a T3 compression fracture. Differential diagnosis: Etiologies such as musculoskeletal, disc herniation, fracture, aortic disease, metastatic disease, cord compression, discitis, infection, renal colic, gastrointestinal, acute exacerbation of chronic back pain, sciatica, cauda equina, as well as others were entertained. Patient was seen and evaluated the bedside. Patient was complaining some shortness of breath. Patient believes the shortness of breath is related to pain. It is somewhat exertional in nature. Patient denies any chest pains. The patient does have some back pain. The patient was seen back in August where the patient did have a compression fracture of the thoracic spine. The patient had a negative CT PE study that did not show any aortic pathology. Given that she is reproducible back pain without any neurologic symptoms and the patient and is consistent with her prior presentation without any hemoptysis I do not believe she requires a CT PE protocol at this time. The patient did have plain films completed. Patient also did complain of some productive sputum. Patient did have blood work completed along with EKG, troponin. Patient did have mild elevation of white blood cell count. Patient's troponin is not elevated and EKG is not showing any acute ischemic change. Patient's plain films did show concern for possible right lower lobe pneumonia. Given the patient's symptoms she did receive an ambulatory trial. The patient did not complete this very well. Patient has a curb 65 score 2. Given this and the patient's exertional dyspnea and requiring supplemental oxygen I believe she would benefit from further evaluation and treatment. Blood cultures were ordered and the patient did mental health counselor the pharmacy was started on cefepime. I did speak with the on-call [facility] specialist who agreed to evaluate the patient tomorrow. Patient was given strict follow-up, discharge, and return precautions. All questions were answered. Patient was deemed suitable for outpatient follow-up at this time. Patient agreed with the plan of care and was safely discharged home. Medication Reconcilliation Current Medication List: was personally reviewed by me Blood Pressure Screening Patient's blood pressure: Elevated blood pressure Monitored by hospitalist. Consults Time Called: 1910 Consulting Physician: Dr. Chapa, Orthopedic spine surgeon Returned Call: 1912 I discussed the patient's case with Dr. Chapa, Orthopedic spine surgeon. He will evaluate the patient as an inpatient. Additional Consults: Time Called: 1946 Consulted Physician: Dr. Patricia, [facility] Hospitalist Returned Call: 2017 Additional Comments: I discussed the patient's case with Dr. Patricia, [facility] Hospitalist. The patient will be evaluated for further management and care. Impression Primary Impression: Pneumonia Additional Impressions: Compression fx, thoracic spine Anemia Scribe Attestation The scribe's documentation has been prepared under my direction and personally reviewed by me in its entirety. I confirm that the note above accurately reflects all work, treatment, procedures, and medical decision making performed by me. Departure Information Dispostion Being Evaluated By Hospitalist Referrals Dagoberto Headley M.D. (PCP) Patient Instructions My [facility] Problem Qualifiers Primary Impression: Pneumonia Pneumonia type: due to unspecified organism Laterality: right Lung location : lower lobe of lung Qualified Codes: J18.1 - Lobar pneumonia, unspecified organism Additional Impressions: Compression fx, thoracic spine Encounter type: initial encounter Fracture type: closed Qualified Codes: S22.000A - Wedge compression fracture of unspecified thoracic vertebra, initial encounter for closed fracture Anemia Anemia type: unspecified type Qualified Codes: D64.9 - Anemia, unspecified
[2017-11-04] MEDS ORDERED: MoRPHine SULFATE 4 MG/ML 1 ML CARP\\VIAL IV STA (16:36)
[2017-11-04] MEDS ORDERED: OXYC15TA89 PO (16:58)
[2017-11-04 17:41] LABS: BASO % 0.2 %; BASO ABS # 0.03 K/uL (0-0.2); EOS % 0.1 %; EOS ABS # 0.02 K/uL (0-0.5); HEMATOCRIT 34.7 % (37-47); HEMOGLOBIN 11.8 g/dL (12.0-16.0); IG# 0.04 K/uL (0.00-0.02); LYMPH % 13.2 %; LYMPH ABS # 1.83 K/uL (1.2-3.4); MEAN CELL VOLUME 87.2 fL (80-100); MEAN CORPUSCULAR HEMOGLOBIN 29.6 pg (25-34); MEAN PLATELET VOLUME 10.5 fL (7.4-10.4); MONO % 8.7 %; MONO ABS # 1.21 K/uL (0.11-0.59); NEUT % 77.5 %; NEUT ABS # 10.76 K/uL (1.4-6.5); PLATELET COUNT 163 K/uL (130-400); RED CELL DISTRIBUTION WIDTH SD 44.8 fL (36.4-46.3); WHITE BLOOD COUNT 13.89 K/uL (4.8-10.8)
[2017-11-04 18:06] LABS: BLOOD UREA NITROGEN 20 mg/dl (7-18); CARBON DIOXIDE 27 mmol/L (21-32); CREATININE 1.18 mg/dl (0.60-1.20); GLUCOSE 141 mg/dl (70-99); POTASSIUM 4.2 mmol/L (3.5-5.1); SODIUM 137 mmol/L (136-145)
--- NOTE | 2017-11-04 18:23 | DIAGNOSTIC IMAGING REPORT ---
CHEST 2 VIEWS ROUTINE CLINICAL HISTORY: Cough. Shortness of breath. COMPARISON STUDY: Chest radiograph and chest CT September 08, 2017. FINDINGS: Single lead left subclavian pacemaker is in place. Marked cardiomegaly is noted. Mild interstitial thickening may reflect mild interstitial edema. There is a trace left pleural effusion. Right perihilar/right lower lobe airspace opacity has developed since prior exam. Left basilar opacity favors atelectasis. Old right-sided rib fractures are incidentally noted. IMPRESSION: 1. Interval development of right lower lobe airspace opacity which favors pneumonia. Post treatment radiographs to ensure resolution are recommended. 2. Suspected mild interstitial pulmonary edema. Trace left pleural effusion. 3. Marked cardiomegaly. Electronically signed by: Jorgito Oseguera M.D. 11/04/2017 6:22 PM Dictated Date/Time: 11/04/2017 6:19 PM
--- NOTE | 2017-11-04 18:29 | DIAGNOSTIC IMAGING REPORT ---
THORACIC SPINE 3 VIEWS ROUTINE CLINICAL HISTORY: History of T3 fracture. Reproducible back pain. COMPARISON STUDY: CT of the thoracic spine September 08, 2017. FINDINGS: An old moderate T3 compression fracture is similar to CT of September 08, 2017. There has been interval development of a suspected mild T4 compression fracture. Extensive anterior osteophytosis within the mid to lower thoracic spine is noted. No additional compression fractures are identified by radiography. Minimal rightward curvature of the lumbar spine is again noted. A left subclavian pacer is noted with marked cardiomegaly. IMPRESSION: 1. Interval development of a suspected mild T4 compression fracture since CT of September 08, 2017. 2. No change in a moderate T3 compression fracture since prior CT. 3. Extensive anterior osteophytosis of the mid to lower thoracic spine. Electronically signed by: Jorgito Oseguera M.D. 11/04/2017 6:27 PM Dictated Date/Time: 11/04/2017 6:22 PM
[2017-11-04] MEDS ORDERED: CEFTRIAXONE SOD INJ 1 GM ADDVIAL IV STA (19:08)
[2017-11-04] MEDS ORDERED: CEFEPIME IV 1,000 MG in DEXTROSE 5% 100ML 100 ML IV STA (19:11)
[2017-11-04] MEDS ORDERED: AZITHROMYCIN 250 MG TAB PO ONE (19:15)
[2017-11-04] MEDS ORDERED: ONDANSETRON INJ 2 MG/ML 2 ML VIAL IV PRN (21:15)
[2017-11-04] MEDS ORDERED: MAGNESIUM HYDROXIDE SUSP 30 ML UDC PO PRN (21:15)
[2017-11-04] MEDS ORDERED: POLYETHYLENE (MIRALAX) 17 GM PACK PO PRN (21:15)
[2017-11-04] MEDS ORDERED: HEPARIN SOD 5000 UNIT/0.5 ML CARP SQ SCH (21:15)
[2017-11-04] MEDS ORDERED: METHYLPREDNISOLONE IV 40 MG in SYRINGE 0 ML IV SCH (21:15)
[2017-11-04] MEDS ORDERED: ALUMINUM/MAGNESIUM/SIMETH (MAALOX MAX) 30 ML UDC PO PRN (21:15)
--- NOTE | 2017-11-04 21:51 | History and Physical ---
History & Physical Date & Time of Service: Nov 04, 2017 at 21:51 Chief Complaint: Back Pain, Hurts To Breath Primary Care Physician: Dagoberto Headley M.D. History of Present Illness Source: patient, family, hospital records 77 yo F Hx HTN, CKD III, AF sick sinus syndrome with s/p pacer 06/07, COPD, CHF DM II, CAD presenting with Acute back pain x 3 days. Pain occurred from rest while sitting on cough , constant, 9/10 intensity. SH tried oxycodone, Tylenol which gave her some relief. She called Dr. Headley on Friday 11/03 and was told the following day to go to the hospital for evaluation. She denies numbness. tingling, weakness. She denies loss of bowel or bladder control. She has history of Renal cancer s/p nephrectomy and history Uterine Cancer s/p hysterectomy. Additionally she reports SOB x 24 hrs. She tried nebulizer which gave her relief. She reports productive cough, but denies wheezing, chest tightness. She usually takes 2L O2 for COPD. no fevers, chills, NO abdominal pain, n/v, diarrhea, sore throat, rhinorrhea. In the ED, she arrived afebrile elevated BP up to 194/74, desaturated in rm to 80's , placed on 2L Wbc ct 13.89, BUN/Cr wnl, beg troponin CXR right lower lobe airspace opacity which favors pneumonia, mild interstitial pulmonary edema. Trace left pleural effusion. Past Medical/Surgical History PastMedHx: 1) COPD 2) CKD III. Baseline creatinine approximately 1.0. 3) Solitary right kidney 4) Left nephrectomy in 1996 for renal cell carcinoma 5) Diabetes mellitus type 2 6) History of A. fib and sick sinus syndrome. Ventricular pacemaker May 2016 7) Hypertension 8) Coronary artery disease - ND in 1992 Surgical: 1) Cholecystectomy 2) Hysterectomy 3) Bilateral HIp replacement Medical Problems: (1) Acute renal failure (2) Acute renal insufficiency (3) Atrial fibrillation (4) Bradycardia (5) Bronchitis (6) CAD (coronary artery disease) (7) CHF (congestive heart failure) (8) CHF (congestive heart failure) (9) Chronic diastolic CHF (congestive heart failure) (10) CKD (chronic kidney disease), stage III (11) COPD exacerbation (12) COPD exacerbation (13) Diabetes mellitus (14) DM (diabetes mellitus) (15) DM (diabetes mellitus) (16) Dyspnea on exertion (17) HTN (hypertension) (18) HTN (hypertension) (19) HTN (hypertension) (20) Hyperlipidemia (21) Hypertension (22) Hypertension (23) Intractable back pain (24) Intractable back pain (25) Non-traumatic compression fracture of T3 thoracic vertebra (26) Pleuritic pain (27) Pneumonia (28) Shortness of breath (29) Single kidney (30) Single kidney (31) Syncope (32) Thoracic back pain (33) UTI (urinary tract infection) Family History Cancer FH: pneumonia Heart disease Social History Smoking Status: Never Smoker Drug Use: none Marital Status: Housing status: lives with family Occupational Status: retired Immunizations History of Influenza Vaccine: Yes History of Tetanus Vaccine?: Yes History of Pneumococcal: Yes Pneumococcal Date: Dec 20, 2009 History of Hepatitis B Vaccine: Unknown Allergies Coded Allergies: Chlorthalidone (Verified Allergy, Unknown, UNK, 11/04/17) Penicillins (Verified Allergy, Unknown, 11/04/17) Home Medications Scheduled Amlodipine Besylate (Norvasc), 10 MG PO QAM Atenolol (Tenormin), 50 MG PO QAM Budesonide/Formoterol Fumarate (Symbicort 160/4.5 Inhaler ), 2 PUFFS INH BID Calcium Carbonate-Vitamin D (Calcium 600+D), 1 TAB PO QAM Cyanocobalamin (Vitamin B12), 1 TAB PO QAM Docusate Sodium (Docusate Sodium), 100 MG PO HS Furosemide (Lasix), 20 MG PO Q2D Guaifenesin Ext Rel (Mucinex Ext Rel), 1,200 MG PO Q12 Isosorbide Mononitrate Ext Rel (Imdur Ext Rel), 90 MG PO QAM Losartan Potassium (Cozaar), 25 MG PO QAM Multiple Vitamins W/ Minerals (Womens One Daily), 1 TAB PO QAM Psyllium (Metamucil), 1 DOSE PO HS Simvastatin (Zocor), 20 MG PO HS Sitagliptin (Januvia), 25 MG PO QAM Warfarin Sodium (Warfarin Sodium), 2.5 MG PO [id number] Warfarin Sodium (Warfarin Sodium), 5 MG PO [id number] Scheduled PRN Ipratropium-Albuterol (Duoneb), 3 ML INH Q6H PRN for cough/wheeze Nitroglycerin (Nitrostat), 0.4 MG UT UD PRN for Chest Pain Oxycodone Hcl (Oxycontin), Unknown Dose PO Q12 PRN for Pain Tramadol Hcl (Ultram), 50 MG PO Q6 PRN for Pain Review of Systems Constitutional: No fever, No chills, No weakness Respiratory: + cough, + sputum, + shortness of breath Cardiovascular: No chest pain, No edema, No palpitations Abdomen: No pain, No nausea, No vomiting, No diarrhea, No constipation Musculoskeletal: + swelling (ravin LE), + problem reported (back pain), No calf pain Genitourinary - Female: No dysuria, No urinary frequency, No urinary urgency Neurologic: No weakness, No numbness/tingling Integumentary: No rash, No itch Physical Exam Vital Signs Date Time Temp Pulse Resp B/P (MAP) Pulse Ox O2 Delivery O2 Flow Rate FiO2 11/04/17 19:42 62 21 170/69 98 Nasal Cannula 2.0 11/04/17 17:40 60 20 194/74 91 Room Air 11/04/17 16:07 37.3 70 18 150/68 95 Room Air GENERAL: alert, well appearing, well nourished, no distress, non-toxic EYE EXAM: normal conjunctiva, PERRL and EOM's grossly intact OROPHARYNX: no exudate, no erythema, lips, buccal mucosa, and tongue normal and mucous membranes are moist NECK: supple, no nuchal rigidity, no adenopathy, non-tender LUNGS: Dec'd breath sounds, Basilar Crackles . Normal chest wall mechanics HEART: +systolic murmur, S1 normal and S2 normal ABDOMEN: abdomen soft, non-tender, normo-active bowel sounds, no masses, no rebound or guarding. BACK: Back is symmetrical on inspection and there is no deformity, midline back spinous tenderness SKIN: no rashes and no bruising UPPER EXTREMITIES: upper extremities are grossly normal. LOWER EXTREMITIES: 1+ pitting edema. NEURO EXAM: Normal sensorium, cranial nerves II-XII grossly intact, normal speech, no gross weakness of arms, no gross weakness of legs. Diagnostics Laboratory Results Results Past 24 Hours Test 11/04/17 17:20 Range/Units White Blood Count 13.89 4.8-10.8 K/uL Red Blood Count 3.98 4.2-5.4 M/uL Hemoglobin 11.8 12.0-16.0 g/dL Hematocrit 34.7 37-47 % Mean Corpuscular Volume 87.2 80-100 fL Mean Corpuscular Hemoglobin 29.6 25-34 pg Mean Corpuscular Hemoglobin Concent 34.0 32-36 g/dl Platelet Count 163 130-400 K/uL Mean Platelet Volume 10.5 7.4-10.4 fL Neutrophils (%) (Auto) 77.5 % Lymphocytes (%) (Auto) 13.2 % Monocytes (%) (Auto) 8.7 % Eosinophils (%) (Auto) 0.1 % Basophils (%) (Auto) 0.2 % Neutrophils # (Auto) 10.76 1.4-6.5 K/uL Lymphocytes # (Auto) 1.83 1.2-3.4 K/uL Monocytes # (Auto) 1.21 0.11-0.59 K/uL Eosinophils # (Auto) 0.02 0-0.5 K/uL Basophils # (Auto) 0.03 0-0.2 K/uL RDW Standard Deviation 44.8 36.4-46.3 fL RDW Coefficient of Variation 14.0 11.5-14.5 % Immature Granulocyte % (Auto) 0.3 % Immature Granulocyte # (Auto) 0.04 0.00-0.02 K/uL Sodium Level 137 136-145 mmol/L Potassium Level 4.2 3.5-5.1 mmol/L Chloride Level 104 98-107 mmol/L Carbon Dioxide Level 27 21-32 mmol/L Anion Gap 6.0 3-11 mmol/L Blood Urea Nitrogen 20 7-18 mg/dl Creatinine 1.18 0.60-1.20 mg/dl Est Creatinine Clear Calc Drug Dose 46.7 ml/min Estimated GFR () 50.8 Estimated GFR (Non- 43.8 BUN/Creatinine Ratio 16.8 10-20 Random Glucose 141 70-99 mg/dl Calcium Level 9.0 8.5-10.1 mg/dl Magnesium Level 2.0 1.8-2.4 mg/dl Troponin I < 0.015 0-0.045 ng/ml Microbiology Results 11/04/17 Blood Culture, Received Pending 11/04/17 Blood Culture, Received Pending Diagnostic Radiology CHEST 2 VIEWS ROUTINE CLINICAL HISTORY: Cough. Shortness of breath. COMPARISON STUDY: Chest radiograph and chest CT September 08, 2017. FINDINGS: Single lead left subclavian pacemaker is in place. Marked cardiomegaly is noted. Mild interstitial thickening may reflect mild interstitial edema. There is a trace left pleural effusion. Right perihilar/right lower lobe airspace opacity has developed since prior exam. Left basilar opacity favors atelectasis. Old right-sided rib fractures are incidentally noted. IMPRESSION: 1. Interval development of right lower lobe airspace opacity which favors pneumonia. Post treatment radiographs to ensure resolution are recommended. 2. Suspected mild interstitial pulmonary edema. Trace left pleural effusion. 3. Marked cardiomegaly. EKG Rate (beats per minute): 63 Rhythm: Ventricular Paced rhythm Findings: LBBB Impression Assessment and Plan 77 yo F Hx HTN, CKD III, AF sick sinus syndrome with s/p pacer 06/07, COPD on 2L O2 qpm at home , CHF DM II, CAD RCC s/p L nephrectomy, Uterine cancer s/p hysterectomy,h/o T3 compression fx,presenting with Acute back pain x 3 days, found to have T4 compression Fx in addition to Pneumonia and possible CHF exacerbation Dyspnea, Acute Resp. Failure, - Pneumonia vs possible CHF exacerbation, Hx of COPD - SOB persists, requiring 2 L continuous to maintain saturation - CXR on arrival showed pulm edema, pleural effusion with right lower lobe airspace opacity which favors pneumonia - afebrile with elevated WBC Ct of 13.89, productive cough - Treated in ED with Cefepime, Continue IV Cefepime empirically - Start guaifenesin, chest physiotherapy, sputum cx, f/u blood cx - F/u BNP, Procalcitonin Acute/chronic systolic CHF -Given LE edema, pulm edema as likely contributor to SOB , resp compromise, Give 20 mg IV Lasix -daily weights, i/o's -Continue PO Furosemide 20 mg PO daily -Further diuresis as discretion of Day team -Echocardiogram from 07/2017 * 1. Normal left ventricular size and systolic function. EF 50-55%. Mild hypokinesis involving the distal and apical portions of the septal and inferior wall segments. Mild concentric left ventricular hypertrophy. * 2. The right ventricle is mildly dilated. The right ventricular systolic function is normal as assessed by tricuspid annular plane systolic excursion ( TAPSE) (normal >1.5 cm). * 3. Severe biatrial dilation. * 4. Sclerotic aortic valve without significant stenosis. * 5. There is mild mitral regurgitation. * 6. There is moderate tricuspid regurgitation. Acute Back Pain - likely associated w/ History of T3 Compression Fx, New T4 compression fx - Ortho consulted -Pain control: PRN mophine COPD - stable - duonebs PRN CAD, HTN, Atrial Fibrillation, H/o Ventricular pacer - stable - Continue Atenolol. Amlodipine, Lasix as above,Losartan Simvastatin - rate controlled , therapeutic INR - Continue home Warfarin 5 mg daily MWF, 2.5 mg daily T,R Sat, Sun T2DM: ISS, BSG AC HS Sitagliptin held DVT Ppx: already om Warfarin Code Status Full resuscitation PT/OT Resuscitation Status VTE Prophylaxis Will order VTE Prophylaxis: Yes Note Total Time: Critical Care 30 - 74 minutes History Patient seen and examined, chart reviewed, case discussed with Dr. Wooten and I agree with his assessment and plan. Briefly, patient is a 77yo female with history of CAD, CKD, HTN, COPD on 2L O2 qHS, DM, AF, SSS s/p pacemaker placement , RCC s/p nephrectomy and Uterine CA presenting with 3 days of severe back pain 12/29 as well as SOB x 1 day. Patient also with productive cough, hypoxic on arrival with sats in the 80's requiring supplemental O2. Patient states she is feeling better after receiving Morphine and oxygen. On physical exam she is afebrile, hypertensive otherwise hemodynamically stable , no respiratory distress, adequate oxygenation 98% on 2L NC Gen: pleasant, NAD Skin: warm, dry, intact, no rashes/lesions HEENT: NC/AT, PERRL, EOMI, MMM, no JVD, neck supple Heart: +S1/S2, pacer in place, 3/6 BENNY Lungs: diminished in the bases, +crackles to mid lung field bilaterally with deep inspiration Abd: +BS, soft, NT/ND, no masses Ext: +tortuous varicosities on bilateral LE, R>L, no edema/erythema or palpable cord Labs and images reviewed. Significant for leukocytosis - WBC=13.89, CXR with possible PNA/RLL infiltrates as well as T3 and T4 lumbar compression fracture Assessment/Plan - 77yo female with multiple medical comorbidities presenting with 3 days of severe back pain, SOB with possible PNA vs acute exacerbation of CHF -Will admit to medical floor -Consult orthopedic surgery for evaluation of thoracic compression fractures -PNA workup with blood cultures, sputum cultures. Cefepime IV. Nebs PRN -Gentle diuresis - will administer Lasix 20mg IV x 1 now -COPD - nebs PRN, supplemental O2 as needed Remainder of plan as above
[2017-11-04 22:37] VITALS: BP 197/73; PULSE 81; TEMP 37.3; O2SAT 93
[2017-11-04] MEDS: MoRPHine SULFATE 4 MG/ML 1 ML CARP\\VIAL IV PRN (22:49)
[2017-11-04 23:03] LABS: INR 2.5 (0.9-1.1)
[2017-11-04 23:25] VITALS: BP 172/71; PULSE 63; TEMP 36.6; O2SAT 94
[2017-11-04] MEDS ORDERED: GLUCOSE 40% GEL 15 GM TUBE PO PRN (23:45)
[2017-11-04] MEDS ORDERED: GLUCAGON FOR INJ 1 MG VIAL IM PRN (23:45)
[2017-11-04] MEDS ORDERED: CARBOHYDRATES FOR HYPOGLYCEMIA PO PRN (23:45)
[2017-11-04] MEDS ORDERED: FUROSEMIDE INJ 20 MG in SYRINGE 0 ML IV ONE (23:45)
[2017-11-04] MEDS ORDERED: GLUCOSE 10 TABS/TUBE PO PRN (23:45)
[2017-11-04] MEDS ORDERED: DEXTROSE 50% 50 ML SYR IV PRN (23:45)
[2017-11-05] VITALS (8 sets, daily range): BP systolic 144–175; BP diastolic 63–74; PULSE 58–76; TEMP 37.1–37.4; O2SAT 93–98; Ht 167.6 cm; Wt 91.9 kg
[2017-11-05] MEDS: GUAIFENESIN 200 MG TAB PO SCH ×6 (00:40→20:15)
[2017-11-05] MEDS: INSULIN ASPART 100 UNITS/ML 3 ML PEN SC SCH ×5 (00:41→21:00)
[2017-11-05] MEDS: MoRPHine SULFATE 4 MG/ML 1 ML CARP\\VIAL IV PRN ×4 (02:51→21:12)
--- NOTE | 2017-11-05 07:11 | Family Medicine Progress Note ---
Progress Note Date of Service Nov 05, 2017. Subjective NAV overnight. Reports did not sleep well, back pain at T4, +productive cough ROS See HPI for pertinent positives and negatives. Otherwise denies new headache, vision change, chest pain, abdominal pain, loose or bloody stools, dysuria, or numbness tingling in extremities. Medications Current Inpatient Medications Medications (Trade) Dose Ordered Sig/Tayler Route Start Time Stop Time Status Last Admin Dose Admin Guaifenesin (Organidin Nr Tab) 200 mg Q4 PO 11/05/17 00:00 12/05/17 00:00 11/05/17 20:15 200 MG Albuterol/ Ipratropium (Duoneb) 3 ml QIDR INH 11/05/17 08:00 12/05/17 07:59 11/05/17 19:49 3 ML Acetaminophen (Tylenol Tab) 650 mg Q4H PRN PO 11/04/17 21:15 12/04/17 21:14 Al Hydrox/Mg Hydrox/Simethicone (Maalox Max Susp) 15 ml Q4H PRN PO 11/04/17 21:15 12/04/17 21:14 Magnesium Hydroxide (Milk Of Magnesia Susp) 30 ml Q6H PRN PO 11/04/17 21:15 12/04/17 21:14 Polyethylene (Miralax Powder Packet) 17 gm DAILY PRN PO 11/04/17 21:15 12/04/17 21:14 Ondansetron HCl (Zofran Inj) 4 mg Q6H PRN IV 11/04/17 21:15 12/04/17 21:14 Morphine Sulfate (MoRPHine SULFATE INJ) 4 mg Q4H PRN IV 11/04/17 21:15 11/18/17 21:14 11/05/17 13:27 4 MG Cefepime HCl 2000 mg/Syringe 20 ml @ 5 mls/min Q12H IV 11/05/17 08:00 11/12/17 07:59 11/05/17 20:18 5 MLS/MIN Amlodipine Besylate (Norvasc Tab) 10 mg QAM PO 11/05/17 09:00 12/05/17 08:59 11/05/17 08:31 10 MG Atenolol (Tenormin Tab) 50 mg QAM PO 11/05/17 09:00 12/05/17 08:59 11/05/17 08:30 50 MG Furosemide (Lasix Tab) 20 mg Q2D@0900 PO 11/05/17 09:00 12/05/17 08:59 11/05/17 08:30 20 MG Losartan Potassium (coZAAR TAB) 25 mg QAM PO 11/05/17 09:00 12/05/17 08:59 11/05/17 08:29 25 MG Simvastatin (Zocor Tab) 20 mg HS PO 11/05/17 21:00 12/05/17 20:59 Warfarin Sodium (Coumadin Tab) 2.5 mg SuTuThSa@1600 PO 11/06/17 16:00 12/06/17 15:59 Warfarin Sodium (Coumadin Tab) 5 mg MoWeFr@1600 PO 11/05/17 16:00 12/05/17 15:59 11/05/17 15:56 5 MG Insulin Aspart (novoLOG ASPART) SLIDING SCALE G... ACHS SC 11/05/17 00:00 12/05/17 00:00 11/05/17 18:24 6 UNITS Glucose (Glucose 40% Gel) 15-30 GRAMS 15 GRAMS... UD PRN PO 11/04/17 23:45 12/04/17 23:44 Glucose (Glucose Chew Tab) 4-8 Tablets 4 Tabl... UD PRN PO 11/04/17 23:45 12/04/17 23:44 Dextrose (Dextrose 50% 50ML Syringe) 25-50ML 25ML FOR ... UD PRN IV 11/04/17 23:45 12/04/17 23:44 Glucagon (Glucagon Inj) 1 mg UD PRN IM 11/04/17 23:45 12/04/17 23:44 Carbohydrates (Carbohydrates For Hypoglycemia) 15-30 GRAMS 15 grams if BSG 54-69... UD PRN PO 11/04/17 23:45 12/04/17 23:44 Objective Vital Signs Date Time Temp Pulse Resp B/P (MAP) Pulse Ox O2 Delivery O2 Flow Rate FiO2 11/05/17 19:51 76 18 98 Nasal Cannula 2.0 11/05/17 15:50 96 Nasal Cannula 2.0 11/05/17 15:30 58 16 96 Nasal Cannula 2.0 11/05/17 15:01 37.1 59 20 144/63 (90) 95 Nasal Cannula Humidified Oxygen 11/05/17 11:39 68 16 95 Nasal Cannula 2.0 11/05/17 08:00 Nasal Cannula 2.0 11/05/17 07:17 37.4 60 18 151/72 (98) 95 Nasal Cannula 2.0 11/05/17 05:45 168/68 (101) 11/05/17 00:40 Nasal Cannula 2.0 11/05/17 00:40 Nasal Cannula 2.0 11/04/17 23:25 36.6 63 18 172/71 (104) 94 Nasal Cannula 2.0 11/04/17 22:37 37.3 81 24 197/73 (114) 93 Nasal Cannula 2.0 11/04/17 21:53 70 22 176/94 94 Nasal Cannula 2.0 Physical Exam Notes: GENERAL: Awake, alert, in no distress, nasal cannula in place HENT: Normocephalic, atraumatic. EYES: Normal conjunctiva. Sclera non-icteric. NECK: Supple. Full range of motion. no JVD RESPIRATORY: +crackles at bases, +mild wheeze b/l CARDIAC: Regular rate, normal rhythm. Extremities warm and well perfused. Pulses equal. ABDOMEN: Soft, non-distended. No tenderness to palpation. No rebound or guarding. No masses. LOWER EXTREMITIES: Calves are equal size bilaterally and non-tender. No edema. No discoloration. NEURO: No motor deficits noted. SKIN: No rash or jaundice noted. Laboratory Results 11/05/17 06:54 Red Blood Count 3.92, Mean Corpuscular Volume 88.5, Mean Corpuscular Hemoglobin 29.6, Mean Corpuscular Hemoglobin Concent 33.4, Mean Platelet Volume 10.9, Neutrophils (%) (Auto) 67.2, Lymphocytes (%) (Auto) 18.3, Monocytes (%) (Auto) 12.3, Eosinophils (%) (Auto) 1.5, Basophils (%) (Auto) 0.2, Neutrophils # (Auto ) 6.35, Lymphocytes # (Auto) 1.73, Monocytes # (Auto) 1.16, Eosinophils # (Auto ) 0.14, Basophils # (Auto) 0.02 11/05/17 06:54 Test 11/05/17 06:54 11/05/17 17:24 White Blood Count 9.45 K/uL (4.8-10.8) Red Blood Count 3.92 M/uL (4.2-5.4) Hemoglobin 11.6 g/dL (12.0-16.0) Hematocrit 34.7 % (37-47) Mean Corpuscular Volume 88.5 fL (80-100) Mean Corpuscular Hemoglobin 29.6 pg (25-34) Mean Corpuscular Hemoglobin Concent 33.4 g/dl (32-36) Platelet Count 152 K/uL (130-400) Mean Platelet Volume 10.9 fL (7.4-10.4) Neutrophils (%) (Auto) 67.2 % Lymphocytes (%) (Auto) 18.3 % Monocytes (%) (Auto) 12.3 % Eosinophils (%) (Auto) 1.5 % Basophils (%) (Auto) 0.2 % Neutrophils # (Auto) 6.35 K/uL (1.4-6.5) Lymphocytes # (Auto) 1.73 K/uL (1.2-3.4) Monocytes # (Auto) 1.16 K/uL (0.11-0.59) Eosinophils # (Auto) 0.14 K/uL (0-0.5) Basophils # (Auto) 0.02 K/uL (0-0.2) RDW Standard Deviation 46.1 fL (36.4-46.3) RDW Coefficient of Variation 14.3 % (11.5-14.5) Immature Granulocyte % (Auto) 0.5 % Immature Granulocyte # (Auto) 0.05 K/uL (0.00-0.02) Prothrombin Time 21.6 SECONDS (9.0-12.0) Prothromb Time International Ratio 2.1 (0.9-1.1) Anion Gap 6.0 mmol/L (3-11) Est Creatinine Clear Calc Drug Dose 48.7 ml/min Estimated GFR () 57.2 Estimated GFR (Non- 49.3 BUN/Creatinine Ratio 20.6 (10-20) Calcium Level 8.7 mg/dl (8.5-10.1) Pro-B-Type Natriuretic Peptide 11155 pg/ml (0-1800) Procalcitonin 0.30 ng/ml (0-0.5) Bedside Glucose 121 mg/dl (70-90) Assessment and Plan 77 yo F h/o T3 compression fx,presenting with Acute back pain x 3 days, found to have T4 compression Fx in addition to Pneumonia and possible CHF exacerbation PMHx: CHF, HTN, CKD III, AF sick sinus syndrome with s/p pacer 06/07, COPD on 2L O2 qpm at home , DM II, CAD RCC s/p L nephrectomy, Uterine cancer s/p hysterectomy Dyspnea, Acute on chronic Respiratory Failure - Pneumonia vs possible CHF exacerbation, Hx of COPD - reports she is on home O2 2L at night only prior to admission - Requiring 2 L continuous to maintain saturation during day here - CXR on arrival showed pulm edema, pleural effusion with right lower lobe airspace opacity which favors pneumonia - afebrile with elevated WBC Ct of 13.89, productive cough on admission - Continue guaifenesin, chest physiotherapy, f/u blood cx - sputum cx: no organisms seen 17Jul - BNP elevated as below, Procalcitonin wnl Acute/chronic systolic CHF - No LE edema on exam today; BNP understandably elevated at 24,000. -daily weights, i/o's -Continue PO Furosemide 20 mg PO daily -Echocardiogram from 07/2017 * 1. Normal left ventricular size and systolic function. EF 50-55%. Mild hypokinesis involving the distal and apical portions of the septal and inferior wall segments. Mild concentric left ventricular hypertrophy. * 2. The right ventricle is mildly dilated. The right ventricular systolic function is normal as assessed by tricuspid annular plane systolic excursion ( TAPSE) (normal >1.5 cm). * 3. Severe biatrial dilation. * 4. Sclerotic aortic valve without significant stenosis. * 5. There is mild mitral regurgitation. * 6. There is moderate tricuspid regurgitation. Acute Back Pain - likely associated w/ History of T3 Compression Fx, New T4 compression fx - Ortho consulted - placed a brace, pt is not candidate for surgery -Pain control: PRN mophine COPD - stable; O2 per protocol - duonebs PRN CAD, HTN, Atrial Fibrillation, H/o Ventricular pacer - stable - Continue Atenolol. Amlodipine, Lasix as above, Losartan Simvastatin - rate controlled, therapeutic INR - Continue home Warfarin 5 mg daily MWF, 2.5 mg daily T,R Sat, Sun T2DM: ISS, BSG AC HS Sitagliptin held DVT Ppx: already on Warfarin FEN/GI: no IVF indicated at this time - use sparingly given CHF exacerbation, T2DM/AHA/Low sodium diet Code Status Full resuscitation Continued [facility] stay due to: multiple IV medications needed Resident Tracking Resident Involvement: Resident Care Provided Care Provided: Adult [facility] Medicine Assessment/Plan Resident Physician Supervision Note: I was present with Dr. Sutton during the history and exam. I discussed the case with the resident and agree with the findings and plan as documented in the note. Any exceptions or clarifications are listed here: Pt seen and examined at bedside following ambulation with PT and with brace. Pt reports improved pain control with brace during activity. Pain has restricted ability to deep breathe for almost 6 days, onset of respiratory difficulties following same. ?impact on dietary salt intake etc, but h/o CHF exacerbations previously. Cough is more productive now that pain is better controlled. On examination, S1/S2 nl RRR. Lungs are decreased at the b/l bases with rales on the right > left. Abd is NT/ND BS+ve. 1+ pitting edema to the mid quintero b/l. AHRF w/ Pneumonia, RLL - Blood and sputum cultures pending. Continue cefepime. Monitor O2 sat. Would encourage IS/FV use. CHF exacerbation - responding subjectively well to diuresis and would continue with I/O/weight monitoring. COPD - no wheezing and tolerating baseline O2, so would support PNA/CHF with duonebs q4P and consider adding steroids with worsening sat or subj complaint Compression fracture - improved pain control with medication and brace, follow PT. Ortho input greatly appreciated.
[2017-11-05 07:30] LABS: BASO % 0.2 %; BASO ABS # 0.02 K/uL (0-0.2); EOS % 1.5 %; EOS ABS # 0.14 K/uL (0-0.5); HEMATOCRIT 34.7 % (37-47); HEMOGLOBIN 11.6 g/dL (12.0-16.0); IG# 0.05 K/uL (0.00-0.02); LYMPH % 18.3 %; LYMPH ABS # 1.73 K/uL (1.2-3.4); MEAN CELL VOLUME 88.5 fL (80-100); MEAN CORPUSCULAR HEMOGLOBIN 29.6 pg (25-34); MEAN CORPUSCULAR HGB CONC 33.4 g/dl (32-36); MEAN PLATELET VOLUME 10.9 fL (7.4-10.4); MONO % 12.3 %; MONO ABS # 1.16 K/uL (0.11-0.59); NEUT % 67.2 %; NEUT ABS # 6.35 K/uL (1.4-6.5); PLATELET COUNT 152 K/uL (130-400); RED CELL DISTRIBUTION WIDTH CV 14.3 % (11.5-14.5); RED CELL DISTRIBUTION WIDTH SD 46.1 fL (36.4-46.3); WHITE BLOOD COUNT 9.45 K/uL (4.8-10.8)
[2017-11-05 07:34] LABS: INR 2.1 (0.9-1.1)
[2017-11-05 07:53] LABS: CALCIUM 8.7 mg/dl (8.5-10.1); CREATININE 1.07 mg/dl (0.60-1.20); POTASSIUM 3.9 mmol/L (3.5-5.1)
[2017-11-05] MEDS: CEFEPIME IV 2,000 MG in SYRINGE 7.5 ML IV SCH ×2 (07:58→20:18)
[2017-11-05] MEDS: ALBUT/IPRATROP 3MG/0.5MG NEB 3 ML VIAL INH SCH ×4 (08:00→19:49)
[2017-11-05] MEDS: LOSARTAN POTASSIUM 25 MG TAB PO SCH (08:29)
[2017-11-05] MEDS: AMLODIPINE BESYLATE 5 MG TAB PO SCH (08:31)
--- NOTE | 2017-11-05 08:39 | ORTHOPEDIC CONSULTATION ---
DATE OF ADMISSION: 11/04/2017 Consultation for T4 and T3 compression fractures. HISTORY OF PRESENT ILLNESS: Mrs. Zhu is a delightful, she is 77. She is compromised. Multiple medical problems including hypertension, sick sinus syndrome, COPD, congestive heart failure, coronary artery disease, diabetes, obesity. She had an old compression fracture, moderately old to be exact. Now suffered a new compression fracture at T3 and T4 areas of the thoracic spine. She is here for pain control, brace control, medical management. PAST MEDICAL HISTORY: Significant for above described issues. PAST SURGICAL HISTORY: Hysterectomy, bilateral hip replacement. Her medical problems are greater than 20 and I am holding off on dictating and repeating these. SCHEDULED MEDICATIONS: Listed on her inquiry. They number greater than 10. I reviewed each and every single one of these. REVIEW OF SYSTEMS: She denies any fevers, sweats, chills, weakness. Occasional shortness of breath. No chest pain. No nausea, vomiting. No urgency, frequency. She has musculoskeletal back pain, the reason for her admission. OBJECTIVE: VITAL SIGNS: Stable. Blood pressure slightly elevated. GENERAL: Alert and oriented, well nourished, no confusion. HEENT: Normal. NECK: Supple. ABDOMEN: Soft, nontender, ____. BACK: Does have pain in the spinous process region. NEUROLOGIC: Normal and intact. IMAGING DATA: Images reviewed, demonstrate multiple findings, specifically orthopedics T3, now T4 compression fracture, mild to most moderate. ASSESSMENT: Compression fractures of the upper thoracic spine. PLAN: It is a very difficult problem to manage brace treatment over the course of history and usually is not overly effective, nevertheless we will try. She will also pain management, metabolic improvement for her compression fractures in her overall medical problems. This emphatically is a nonsurgical issue for the most part. Occasionally, we will use a kyphoplasty procedure. Up in the thoracic area, it is a very delicate and tedious procedure, but it is possible.
[2017-11-05] MEDS ORDERED: FUROSEMIDE 20 MG TAB PO SCH (09:00)
[2017-11-05] MEDS: WARFARIN SOD 5 MG TAB PO SCH (15:56)
[2017-11-05] MEDS: ACETAMINOPHEN 325 MG TAB PO PRN (21:12)
[2017-11-05] MEDS: SIMVASTATIN 20 MG TAB PO SCH (21:13)
[2017-11-06] VITALS (9 sets, daily range): BP systolic 153–169; BP diastolic 71–78; PULSE 60–90; TEMP 36.8–37.1; O2SAT 95–100
[2017-11-06] MEDS: GUAIFENESIN 200 MG TAB PO SCH ×7 (00:18→23:41)
[2017-11-06] MEDS: MoRPHine SULFATE 4 MG/ML 1 ML CARP\\VIAL IV PRN ×2 (04:09→08:50)
[2017-11-06] MEDS: ALBUT/IPRATROP 3MG/0.5MG NEB 3 ML VIAL INH SCH ×4 (06:56→19:31)
[2017-11-06] MEDS: CEFEPIME IV 2,000 MG in SYRINGE 7.5 ML IV SCH (07:39)
[2017-11-06 07:59] LABS: BASO % 0.2 %; BASO ABS # 0.02 K/uL (0-0.2); EOS % 0.8 %; EOS ABS # 0.09 K/uL (0-0.5); HEMATOCRIT 32.7 % (37-47); HEMOGLOBIN 11.3 g/dL (12.0-16.0); IG# 0.06 K/uL (0.00-0.02); LYMPH % 19.6 %; LYMPH ABS # 2.12 K/uL (1.2-3.4); MEAN CELL VOLUME 88.1 fL (80-100); MEAN CORPUSCULAR HEMOGLOBIN 30.5 pg (25-34); MEAN CORPUSCULAR HGB CONC 34.6 g/dl (32-36); MEAN PLATELET VOLUME 10.4 fL (7.4-10.4); MONO ABS # 1.29 K/uL (0.11-0.59); NEUT % 66.8 %; NEUT ABS # 7.21 K/uL (1.4-6.5); PLATELET COUNT 148 K/uL (130-400); RED CELL DISTRIBUTION WIDTH SD 45.4 fL (36.4-46.3); WHITE BLOOD COUNT 10.79 K/uL (4.8-10.8)
[2017-11-06 08:32] LABS: CALCIUM 8.3 mg/dl (8.5-10.1); CREATININE 1.48 mg/dl (0.60-1.20); POTASSIUM 4.4 mmol/L (3.5-5.1)
[2017-11-06] MEDS: LOSARTAN POTASSIUM 25 MG TAB PO SCH (08:52)
[2017-11-06] MEDS: AMLODIPINE BESYLATE 5 MG TAB PO SCH (08:53)
[2017-11-06] MEDS: INSULIN ASPART 100 UNITS/ML 3 ML PEN SC SCH ×4 (08:56→21:00)
[2017-11-06] MEDS: LIDODERM (LIDOCAINE) PATCH 5% TD SCH (11:02)
--- NOTE | 2017-11-06 14:35 | DIAGNOSTIC IMAGING REPORT ---
CHEST 2 VIEWS ROUTINE CLINICAL HISTORY: dyspnea cough COMPARISON STUDY: 11/04/2017 FINDINGS: Moderate cardiomegaly considered stable. Permanent unipolar cardiac pacemaker with unipolar lead in good position. Right perihilar parenchymal change unaltered from the prior study. Several old right rib fractures with chronic pleural reactive change. This is unaltered. Interval chronic bibasilar atelectatic change. IMPRESSION: Stable exam with no change in the right perihilar infiltrative type process. Chronic additional changes also stable. The above report was generated using voice recognition software. It may contain grammatical, syntax or spelling errors. Electronically signed by: Gumaro Medina M.D. 11/06/2017 2:34 PM Dictated Date/Time: 11/06/2017 2:32 PM
[2017-11-06] MEDS ORDERED: WARFARIN SOD 2.5 MG TAB PO SCH (16:00)
[2017-11-06] MEDS: OXYCODONE HCL IR 5 MG TAB (IMMEDIATE RELEASE) PO PRN ×2 (17:05→21:41)
--- NOTE | 2017-11-06 17:24 | Family Medicine Progress Note ---
Progress Note Date of Service Nov 06, 2017. Subjective Cramping in her anterior thigh LT overnight. Difficulty getting out of bed due to pain, did not sleep well therefore. Is tolerating PO, still requiring oxygen. ROS See HPI for pertinent positives and negatives. Otherwise denies new headache, vision change, chest pain, abdominal pain, loose or bloody stools, dysuria, or numbness tingling in extremities. Medications Current Inpatient Medications Medications (Trade) Dose Ordered Sig/Tayler Route Start Time Stop Time Status Last Admin Dose Admin Guaifenesin (Organidin Nr Tab) 200 mg Q4 PO 11/05/17 00:00 12/05/17 00:00 11/06/17 15:44 200 MG Albuterol/ Ipratropium (Duoneb) 3 ml QIDR INH 11/05/17 08:00 12/05/17 07:59 11/06/17 15:13 3 ML Acetaminophen (Tylenol Tab) 650 mg Q4H PRN PO 11/04/17 21:15 12/04/17 21:14 11/05/17 21:12 650 MG Al Hydrox/Mg Hydrox/Simethicone (Maalox Max Susp) 15 ml Q4H PRN PO 11/04/17 21:15 12/04/17 21:14 Magnesium Hydroxide (Milk Of Magnesia Susp) 30 ml Q6H PRN PO 11/04/17 21:15 12/04/17 21:14 Polyethylene (Miralax Powder Packet) 17 gm DAILY PRN PO 11/04/17 21:15 12/04/17 21:14 Ondansetron HCl (Zofran Inj) 4 mg Q6H PRN IV 11/04/17 21:15 12/04/17 21:14 Morphine Sulfate (MoRPHine SULFATE INJ) 4 mg Q4H PRN IV 11/04/17 21:15 11/18/17 21:14 Future Hold 11/06/17 08:50 4 MG Amlodipine Besylate (Norvasc Tab) 10 mg QAM PO 11/05/17 09:00 12/05/17 08:59 11/06/17 08:53 10 MG Atenolol (Tenormin Tab) 50 mg QAM PO 11/05/17 09:00 12/05/17 08:59 11/06/17 08:53 50 MG Furosemide (Lasix Tab) 20 mg Q2D@0900 PO 11/05/17 09:00 12/05/17 08:59 Future Hold 11/05/17 08:30 20 MG Losartan Potassium (coZAAR TAB) 25 mg QAM PO 11/05/17 09:00 12/05/17 08:59 11/06/17 08:52 25 MG Simvastatin (Zocor Tab) 20 mg HS PO 11/05/17 21:00 12/05/17 20:59 11/05/17 21:13 20 MG Warfarin Sodium (Coumadin Tab) 2.5 mg SuTuThSa@1600 PO 11/06/17 16:00 12/06/17 15:59 11/06/17 15:45 2.5 MG Warfarin Sodium (Coumadin Tab) 5 mg MoWeFr@1600 PO 11/05/17 16:00 12/05/17 15:59 11/05/17 15:56 5 MG Insulin Aspart (novoLOG ASPART) SLIDING SCALE G... ACHS SC 11/05/17 00:00 12/05/17 00:00 11/06/17 13:24 3 UNITS Glucose (Glucose 40% Gel) 15-30 GRAMS 15 GRAMS... UD PRN PO 11/04/17 23:45 12/04/17 23:44 Glucose (Glucose Chew Tab) 4-8 Tablets 4 Tabl... UD PRN PO 11/04/17 23:45 12/04/17 23:44 Dextrose (Dextrose 50% 50ML Syringe) 25-50ML 25ML FOR ... UD PRN IV 11/04/17 23:45 12/04/17 23:44 Glucagon (Glucagon Inj) 1 mg UD PRN IM 11/04/17 23:45 12/04/17 23:44 Carbohydrates (Carbohydrates For Hypoglycemia) 15-30 GRAMS 15 grams if BSG 54-69... UD PRN PO 11/04/17 23:45 12/04/17 23:44 Miscellaneous (Remove Lidoderm Patch) 1 ea DAILY@21 N/A 11/06/17 21:00 12/06/17 20:59 Lidocaine (Lidoderm Patch 5%) 1 patch DAILY@09 TD 11/06/17 10:30 12/06/17 10:29 11/06/17 11:02 1 PATCH Oxycodone HCl (Roxicodone Immediate Rel Tab) 2.5 mg Q4 PRN PO 11/06/17 14:30 11/20/17 14:29 11/06/17 17:05 2.5 MG Cephalexin Monohydrate (Keflex Cap) 500 mg BID PO 11/06/17 21:00 11/16/17 20:59 Doxycycline Hyclate (Vibramycin Cap) 100 mg BID PO 11/06/17 21:00 11/16/17 20:59 Objective Vital Signs Date Time Temp Pulse Resp B/P (MAP) Pulse Ox O2 Delivery O2 Flow Rate FiO2 11/06/17 15:35 96 Nasal Cannula 2.0 11/06/17 15:17 36.8 11/06/17 15:14 60 20 153/71 (98) 100 Nasal Cannula 2.0 11/06/17 15:13 90 18 98 Nasal Cannula 2.0 11/06/17 11:13 63 18 98 Nasal Cannula 2.0 11/06/17 07:45 Nasal Cannula 2.0 11/06/17 07:16 36.8 62 16 169/72 (104) 95 2.0 11/06/17 06:59 63 18 96 Nasal Cannula 2.0 11/06/17 00:20 Nasal Cannula 2.0 11/05/17 23:03 37.3 70 15 175/74 (107) 93 Humidified Oxygen 2.0 11/05/17 19:51 76 18 98 Nasal Cannula 2.0 Physical Exam Notes: GENERAL: Awake, alert, in no distress, nasal cannula in place HENT: Normocephalic, atraumatic. EYES: Normal conjunctiva. Sclera non-icteric. NECK: Supple. Full range of motion. no JVD RESPIRATORY: +crackles at bases, +mild wheeze b/l CARDIAC: Regular rate, normal rhythm. Extremities warm and well perfused. Pulses equal. ABDOMEN: Soft, non-distended. No tenderness to palpation. No rebound or guarding. No masses. LOWER EXTREMITIES: Calves are equal size bilaterally and mildly tender at anterior left quadriceps. No edema. No discoloration. NEURO: No motor deficits noted. SKIN: No rash or jaundice noted. Laboratory Results 11/06/17 07:46 Red Blood Count 3.71, Mean Corpuscular Volume 88.1, Mean Corpuscular Hemoglobin 30.5, Mean Corpuscular Hemoglobin Concent 34.6, Mean Platelet Volume 10.4, Neutrophils (%) (Auto) 66.8, Lymphocytes (%) (Auto) 19.6, Monocytes (%) (Auto) 12.0, Eosinophils (%) (Auto) 0.8, Basophils (%) (Auto) 0.2, Neutrophils # (Auto ) 7.21, Lymphocytes # (Auto) 2.12, Monocytes # (Auto) 1.29, Eosinophils # (Auto ) 0.09, Basophils # (Auto) 0.02 11/06/17 07:46 Test 11/06/17 07:46 11/06/17 17:01 White Blood Count 10.79 K/uL (4.8-10.8) Red Blood Count 3.71 M/uL (4.2-5.4) Hemoglobin 11.3 g/dL (12.0-16.0) Hematocrit 32.7 % (37-47) Mean Corpuscular Volume 88.1 fL (80-100) Mean Corpuscular Hemoglobin 30.5 pg (25-34) Mean Corpuscular Hemoglobin Concent 34.6 g/dl (32-36) Platelet Count 148 K/uL (130-400) Mean Platelet Volume 10.4 fL (7.4-10.4) Neutrophils (%) (Auto) 66.8 % Lymphocytes (%) (Auto) 19.6 % Monocytes (%) (Auto) 12.0 % Eosinophils (%) (Auto) 0.8 % Basophils (%) (Auto) 0.2 % Neutrophils # (Auto) 7.21 K/uL (1.4-6.5) Lymphocytes # (Auto) 2.12 K/uL (1.2-3.4) Monocytes # (Auto) 1.29 K/uL (0.11-0.59) Eosinophils # (Auto) 0.09 K/uL (0-0.5) Basophils # (Auto) 0.02 K/uL (0-0.2) RDW Standard Deviation 45.4 fL (36.4-46.3) RDW Coefficient of Variation 14.0 % (11.5-14.5) Immature Granulocyte % (Auto) 0.6 % Immature Granulocyte # (Auto) 0.06 K/uL (0.00-0.02) Anion Gap 7.0 mmol/L (3-11) Est Creatinine Clear Calc Drug Dose 35.2 ml/min Estimated GFR () 38.6 Estimated GFR (Non- 33.3 BUN/Creatinine Ratio 20.9 (10-20) Calcium Level 8.3 mg/dl (8.5-10.1) Bedside Glucose 139 mg/dl (70-90) Assessment and Plan 77 yo F h/o T3 compression fx,presenting with Acute back pain x 3 days, found to have T4 compression Fx in addition to Pneumonia and early CHF exacerbation PMHx: CHF, HTN, CKD III, AF sick sinus syndrome with s/p pacer 06/07, COPD on 2L O2 qpm at home , DM II, CAD RCC s/p L nephrectomy, Uterine cancer s/p hysterectomy Dyspnea, Acute on chronic Respiratory Failure - Pneumonia vs possible CHF exacerbation, Hx of COPD - reports she is on home O2 2L at night only prior to admission - Requiring 2 L continuous to maintain saturation during day here -- will 2 step tomorrow to assess if will need O2 during the day chronically - CXR on arrival showed pulm edema, pleural effusion with right lower lobe airspace opacity which favors pneumonia - repeat CXR showed stable exam. - afebrile with elevated WBC Ct of 13.89, productive cough on admission - Continue guaifenesin, chest physiotherapy, - sputum cx: no organisms seen 17Jul - blood cx: NGTD - BNP elevated as below, Procalcitonin wnl - step down IV abx to PO Doxycycline and Keflex for CAP organisms, no need to cover pseudomonas - add FV/IS Acute/chronic systolic CHF - No LE edema on exam today; BNP understandably elevated at 24,000. -daily weights, i/o's - Hold PO Furosemide 20 mg PO daily as below -Echocardiogram from 07/2017 * 1. Normal left ventricular size and systolic function. EF 50-55%. Mild hypokinesis involving the distal and apical portions of the septal and inferior wall segments. Mild concentric left ventricular hypertrophy. * 2. The right ventricle is mildly dilated. The right ventricular systolic function is normal as assessed by tricuspid annular plane systolic excursion ( TAPSE) (normal >1.5 cm). * 3. Severe biatrial dilation. * 4. Sclerotic aortic valve without significant stenosis. * 5. There is mild mitral regurgitation. * 6. There is moderate tricuspid regurgitation. YUMIKO - avoid nephrotoxic agents (hold lasix) - follow BMP Acute Back Pain - likely associated w/ History of T3 Compression Fx, New T4 compression fx - Ortho consulted - placed a brace, pt is not candidate for surgery - Pain control: step down to oxycodone for breakthrough pain (2.5mg) COPD - stable; O2 per protocol - duonebs PRN CAD, HTN, Atrial Fibrillation, H/o Ventricular pacer - stable - Continue Atenolol. Amlodipine, Lasix as above, Losartan Simvastatin - rate controlled, therapeutic INR - Continue home Warfarin 5 mg daily MWF, 2.5 mg daily T,R Sat, Sun T2DM: ISS, BSG AC HS Sitagliptin held DVT Ppx: already on Warfarin FEN/GI: no IVF indicated at this time - use sparingly given CHF exacerbation, T2DM/AHA/Low sodium diet Code Status Full resuscitation Continued [facility] stay due to: abnormal vital signs, multiple IV medications needed Resident Tracking Resident Involvement: Resident Care Provided Care Provided: Adult [facility] Medicine Assessment/Plan Resident Physician Supervision Note: I was present with Dr. Sutton during the history and exam. I discussed the case with the resident and agree with the findings and plan as documented in the note. Any exceptions or clarifications are listed here: Pt seen and examined at bedside following ambulation with PT and with brace. Pt reports improved pain control with brace during activity. Pain has restricted ability to deep breathe for almost 6 days, onset of respiratory difficulties following same. ?impact on dietary salt intake etc, but h/o CHF exacerbations previously. Cough is more productive now that pain is better controlled. On examination, S1/S2 nl RRR. Lungs are decreased at the b/l bases with rales on the right > left. Abd is NT/ND BS+ve. 1+ pitting edema to the mid [place]inter[place] b/l. AHRF w/ Pneumonia, RLL - Blood and sputum cultures pending. Continue cefepime. Monitor O2 sat. Would encourage IS/FV use. CHF exacerbation - responded to diuresis, now with increased Cr. Sx dissimilar to previous CHF exacerbations re: LE swelling absent, so would be more concerned for PNA. REturn to baseline diuretic use COPD - no wheezing and tolerating baseline O2, more PNA diagnosis, so duonebs q4P and consider adding steroids with worsening sat or subj complaint Compression fracture - improved pain control with medication and brace, follow PT. Ortho input greatly appreciated.
[2017-11-06] MEDS: ACETAMINOPHEN 325 MG TAB PO PRN (17:54)
[2017-11-06] MEDS: SIMVASTATIN 20 MG TAB PO SCH (21:38)
[2017-11-06] MEDS: CEPHALEXIN MONOHYDRATE 500 MG CAP PO SCH (21:39)
[2017-11-06] MEDS: DOXYCYCLINE HYCLATE 100 MG CAP PO SCH (22:10)
[2017-11-07] VITALS (7 sets, daily range): BP systolic 160–176; BP diastolic 73–74; PULSE 67–98; TEMP 36.5–36.9; O2SAT 90–98
[2017-11-07] MEDS: GUAIFENESIN 200 MG TAB PO SCH ×4 (03:43→16:00)
[2017-11-07] MEDS: OXYCODONE HCL IR 5 MG TAB (IMMEDIATE RELEASE) PO PRN ×3 (03:46→14:31)
[2017-11-07] MEDS: ALBUT/IPRATROP 3MG/0.5MG NEB 3 ML VIAL INH SCH ×4 (03:58→15:34)
[2017-11-07 06:21] LABS: BASO % 0.2 %; BASO ABS # 0.02 K/uL (0-0.2); EOS % 2.2 %; EOS ABS # 0.18 K/uL (0-0.5); HEMATOCRIT 33.6 % (37-47); HEMOGLOBIN 11.3 g/dL (12.0-16.0); IG# 0.04 K/uL (0.00-0.02); LYMPH % 13.2 %; LYMPH ABS # 1.09 K/uL (1.2-3.4); MEAN CELL VOLUME 87.3 fL (80-100); MEAN CORPUSCULAR HEMOGLOBIN 29.4 pg (25-34); MEAN CORPUSCULAR HGB CONC 33.6 g/dl (32-36); MEAN PLATELET VOLUME 10.3 fL (7.4-10.4); MONO ABS # 0.82 K/uL (0.11-0.59); NEUT % 73.9 %; NEUT ABS # 6.08 K/uL (1.4-6.5); PLATELET COUNT 157 K/uL (130-400); RED CELL DISTRIBUTION WIDTH CV 13.9 % (11.5-14.5); RED CELL DISTRIBUTION WIDTH SD 44.5 fL (36.4-46.3); WHITE BLOOD COUNT 8.23 K/uL (4.8-10.8)
[2017-11-07 06:54] LABS: CALCIUM 8.2 mg/dl (8.5-10.1); CREATININE 1.33 mg/dl (0.60-1.20); POTASSIUM 4.2 mmol/L (3.5-5.1)
[2017-11-07] MEDS: LOSARTAN POTASSIUM 25 MG TAB PO SCH (08:21)
[2017-11-07] MEDS: DOXYCYCLINE HYCLATE 100 MG CAP PO SCH (08:22)
[2017-11-07] MEDS: LIDODERM (LIDOCAINE) PATCH 5% TD SCH (08:22)
[2017-11-07] MEDS: AMLODIPINE BESYLATE 5 MG TAB PO SCH (08:22)
[2017-11-07] MEDS: CEPHALEXIN MONOHYDRATE 500 MG CAP PO SCH (08:23)
[2017-11-07] MEDS: INSULIN ASPART 100 UNITS/ML 3 ML PEN SC SCH ×2 (08:34→12:59)
[2017-11-07] MEDS ORDERED: DXY100 PO (10:16)
[2017-11-07] MEDS ORDERED: KFL500 PO (10:16)
--- NOTE | 2017-11-07 11:32 | Discharge Instructions ---
Discharge Instructions Date of Service Nov 07, 2017. Admission Reason for Admission: Howard Fx,Thor Spine,Copd Exacerbation,Pneumonia Discharge Discharge Diagnosis / Problem: Compression Frx, Pneumonia Discharge Goals Goal(s): Decrease discomfort, Improve function, Increase independence, Improve disease control Activity Recommendations Activity Limitations: per Instructions/Follow-up section . Instructions / Follow-Up Instructions / Follow-Up You were admitted due to acute back pain and hypoxia and found to have a T4 compression fracture and a pneumonia. We treated your compression fracture per Orthopedic's recommendations with a back brace and pain control. We recommend you increase your activity as you tolerate. We treated your pneumonia and oxygen requirement with antibiotics and supplemental oxygen. Please complete the course of antibiotics (Doxycycline and Keflex tablets) for 9 more days. Keep using your oxygen to keep your pulse ox number above 92%. Please see your primary care physician and continue all your chronic medications. We recommend you get a blood draw on Friday for a recheck of how thin your blood is and also to check your kidney function and electrolytes. Your primary care provider will monitor these values for you and adjust your medication accordingly. [facility] Diet Patient's current hospital diet: Diabetes Type 2 Diet, AHA Diet (Heart Healthy) , Low Sodium Diet (2gm Na) Discharge Diet Recommended Diet: AHA Diet (Heart Healthy), Diabetes Type 2 Diet Pending Studies Studies pending at discharge: no Laboratory Results Hemoglobin A1c Test 10/06/17 14:55 Range/Units Estimated Average Glucose 146 mg/dl Hemoglobin A1c 6.7 H 4.5-5.6 % Medical Emergencies . Who to Call and When: Medical Emergencies: If at any time you feel your situation is an emergency, please call 911 immediately. . Non-Emergent Contact Non-Emergency issues call your: Primary Care Provider Call Non-Emergent contact if: you have a fever, temperature is above 101.5, your pain is unusual for you, your pain is concerning you . . "Provider Documentation" section prepared by Abbey Sutton. .
--- NOTE | 2017-11-07 14:09 | Discharge Summary ---
Discharge Summary Date of Service Nov 07, 2017. Discharge Summary Admission Date: Nov 04, 2017 at 21:39 Discharge Date: Nov 07, 2017 Discharge Disposition: Home with services Principal Diagnosis: CAP, CHF exacerbation Immunizations: Have You Had Influenza Vaccine: Yes History of Tetanus Vaccine?: Yes History of Pneumococcal: Yes Pneumococcal Date: Dec 20, 2009 History of Hepatitis B Vaccine: Unknown Medication Reconciliation New Medications: Cephalexin Monohydrate (Cephalexin) 500 Mg Cap 500 MG PO BID for 9 Days, #18 CAP Doxycycline Hyclate (Doxycycline Hyclate) 100 Mg Cap 100 MG PO BID for 9 Days, #18 CAP Continued Medications: Amlodipine Besylate (Norvasc) 10 Mg Tab 10 MG PO QAM, TAB Atenolol (Tenormin) 50 Mg Tab 50 MG PO QAM Budesonide/Formoterol Fumarate (Symbicort 160/4.5 Inhaler ) Aero 2 PUFFS INH BID, #1 INHALER 5 Refills Calcium Carbonate-Vitamin D (Calcium 600+D) 1 Tab Tab 1 TAB PO QAM Cyanocobalamin (Vitamin B12) Unknown Strength Tab 1 TAB PO QAM Docusate Sodium (Docusate Sodium) 100 Mg Tab 100 MG PO HS Furosemide (Lasix) 20 Mg Tab 20 MG PO Q2D, #30 TAB 1 Refill Guaifenesin Ext Rel (Mucinex Ext Rel) 600 Mg Tabcr 1200 MG PO Q12, #60 TABS 0 Refills purchase [id number] Ipratropium-Albuterol (Duoneb) 3 Ml Nebu 3 ML INH Q6H PRN for cough/wheeze, #1 BOX 2 Refills dx - J44.9 Isosorbide Mononitrate Ext Rel (Imdur Ext Rel) 30 Mg Tabcr 90 MG PO QAM Losartan Potassium (Cozaar) 25 Mg Tab 25 MG PO QAM Multiple Vitamins W/ Minerals (Womens One Daily) 1 Tab Tab 1 TAB PO QAM Nitroglycerin (Nitrostat) 0.4 Mg Tab 0.4 MG UT UD PRN for Chest Pain, TAB PLACE ONE TABLET UNDER THE TONGUE EVERY 5 MINUTES FOR UP TO 3 DOSES OVER 15 MINUTES IF NEEDED FOR CHEST PAIN Oxycodone Hcl (Oxycontin) Unknown Strength Tab Unknown Dose PO Q12 PRN for Pain, TAB Psyllium (Metamucil) 48.57 % Pow 1 DOSE PO HS 2 TABLESPOONS Simvastatin (Zocor) 20 Mg Tab 20 MG PO HS Sitagliptin (Januvia) 25 Mg Tab 25 MG PO QAM, TAB Tramadol Hcl (Ultram) 50 Mg Tab 50 MG PO Q6 PRN for Pain, #12 TAB PRN PAIN Warfarin Sodium (Warfarin Sodium) 5 Mg Tab 2.5 MG PO 4XWK, TAB TAKE HALF A TABLET (2.5 MG) EVERY FRIDAY,FRIDAY,FRIDAY AND FRIDAY OR OTHERWISE DIRECTED TO TAKE BY ANTICOAGULATION CLINIC/MD Warfarin Sodium (Warfarin Sodium) 5 Mg Tab 5 MG PO 3XWK, TAB TAKE 5 MG EVERY FRIDAY,FRIDAY AND FRIDAY OR OTHERWISE DIRECTED TO TAKE BY ANTICOAGULATION CLINIC/MD Discharge Exam No acute events overnight. Sitting comfortably in chair on day of discharge, brace in place. Still requiring 1-2 L O2 with ambulation, but not at rest. ROS See HPI for pertinent positives and negatives. Otherwise denies new headache, vision change, chest pain, dyspnea, abdominal pain, loose or bloody stools, dysuria, or numbness tingling in extremities. PHYSICAL EXAM GENERAL: Awake, alert, in no distress, HENT: Normocephalic, atraumatic. EYES: Normal conjunctiva. Sclera non-icteric. NECK: Supple. Full range of motion. no JVD RESPIRATORY: clear to auscultation CARDIAC: Regular rate, normal rhythm. Extremities warm and well perfused. Pulses equal. ABDOMEN: Soft, non-distended. No tenderness to palpation. No rebound or guarding. No masses. LOWER EXTREMITIES: Calves are equal size bilaterally. No edema. No discoloration. NEURO: No motor deficits noted. SKIN: No rash or jaundice noted. Hospital Course Ms. Chawla is a pleasant 77 year old female who presented with acute mid back pain and hypoxia Back pain - found to have acute T4 fracture. Ortho was consulted and pt was fitted with a back brace. Pneumonia - was found to have a chest x ray with right lower lobe airspace opacity which favors pneumonia. Radiologist recommends post treatment radiographs to ensure resolution are recommended. Also of note, imaging revealed mild interstitial pulmonary edema, trace left pleural effusion, and marked cardiomegaly. Blood cultures were negative, so patient was transitioned to PO doxycycline and keflex , for a ten day total course. No changes were made to her chronic medications - however given the addition of antibiotics, and mild elevation in creatinine during acute illness, recommend recheck of INR and BMP on Friday. F/u with PCP 3-5 days from discharge. Resident Physician Supervision Note: I was present with Dr. Sutton during the history and exam. I discussed the case with the resident and agree with the findings and plan as documented in the note. The patient noted that he back pain was improved. She denied chest pain or SOB. Upon my exam, patient was alert and oriented. CV RRR. Lungs CTA. LE without edema. Agree with plan as noted above. Home nursing to see patient next week. Lab work to include BMP and INR on Friday. Recommend PCP follow up next week as well. Documented By: Huan Cabrera Total Time Spent: Greater than 30 minutes This includes examination of the patient, discharge planning, medication reconciliation, and communication with other providers. Total time was 45 minutes. Discharge Instructions Please refer to the electronic Patient Visit Report (Discharge Instructions) for additional information. Additional Copies To Dagoberto Headley M.D. Resident Tracking Resident Involvement: Resident Care Provided Care Provided: Adult [facility]
[2017-11-07] MEDS: WARFARIN SOD 5 MG TAB PO SCH (16:00)
== END 2017-11-07 16:55 | disposition home health service (06) | DRG 291 ==
LOC: C.EDB 15:54 → C.3E 21:39 → EDBEDREQSVC 21:49 → ENRESERV 22:06
PROVIDERS: ADMIT Internal Medicine; ATTEND Family Medicine
DX: I13.0 Hypertensive heart and chronic kidney disease with heart failure and stage 1 through stage 4 chronic kidney disease, or unspecified chronic kidney disease (principal); J18.9 Pneumonia, unspecified organism; I50.43 Acute on chronic combined systolic (congestive) and diastolic (congestive) heart failure; M48.54XA Collapsed vertebra, not elsewhere classified, thoracic region, initial encounter for fracture; J96.20 Acute and chronic respiratory failure, unspecified whether with hypoxia or hypercapnia; I48.91 Unspecified atrial fibrillation; I25.10 Atherosclerotic heart disease of native coronary artery without angina pectoris; N18.3 Chronic kidney disease, stage 3 (moderate); E11.21 Type 2 diabetes mellitus with diabetic nephropathy; Z68.32 Body mass index [BMI] 32.0-32.9, adult; E78.5 Hyperlipidemia, unspecified; Z79.01 Long term (current) use of anticoagulants; X58.XXXA Exposure to other specified factors, initial encounter; Y92.89 Other specified places as the place of occurrence of the external cause; D64.9 Anemia, unspecified; Z95.0 Presence of cardiac pacemaker; J44.9 Chronic obstructive pulmonary disease, unspecified; I25.2 Old myocardial infarction; Z88.0 Allergy status to penicillin; E66.9 Obesity, unspecified; Z96.643 Presence of artificial hip joint, bilateral

== ENCOUNTER → 2017-11-10 | Outpatient (CLI) | payer BC ==
[~2017-11-10] MED LIST changes: -CRANBERRY PO; +DXY100 PO; +KFL500 PO; +OXYC15TA89 PO; -PRED10TA PO; -ZOLP5TAB6 PO
[2017-11-10 10:26] LABS: INR 1.7 (0.9-1.1)
[2017-11-10 11:02] LABS: BLOOD UREA NITROGEN 30 mg/dl (7-18); CALCIUM 8.8 mg/dl (8.5-10.1); CARBON DIOXIDE 25 mmol/L (21-32); CREATININE 1.15 mg/dl (0.60-1.20); GLUCOSE 229 mg/dl (70-99); POTASSIUM 4.4 mmol/L (3.5-5.1); SODIUM 136 mmol/L (136-145)
== END | disposition home or self-care (01) ==
LOC: C.LAB1850 09:13
PROVIDERS: ATTEND Student in an Organized Health Care Education/Training Program
DX: N17.9 Acute kidney failure, unspecified (principal); I48.91 Unspecified atrial fibrillation; Z79.01 Long term (current) use of anticoagulants

== ENCOUNTER → 2017-11-13 | Outpatient (CLI) | payer BC ==
[2017-11-13 12:42] LABS: BLOOD UREA NITROGEN 13 mg/dl (7-18); CALCIUM 9.3 mg/dl (8.5-10.1); CARBON DIOXIDE 33 mmol/L (21-32); CHOLESTEROL 102 mg/dl (0-200); CREATININE 0.87 mg/dl (0.60-1.20); GLUCOSE 138 mg/dl (70-99); LDL CHOLESTEROL CALCULATED 37 mg/dl; POTASSIUM 4.5 mmol/L (3.5-5.1); SODIUM 138 mmol/L (136-145)
== END | disposition home or self-care (01) ==
LOC: C.LABBFT 09:00
PROVIDERS: ATTEND Internal Medicine
DX: R60.9 Edema, unspecified (principal); E78.00 Pure hypercholesterolemia, unspecified

== ENCOUNTER → 2017-12-09 | Outpatient (CLI) | payer BC | END | disposition home or self-care (01) | LOC: C.MAMM 13:51 | PROVIDERS: ATTEND Internal Medicine | DX: S22.000A Wedge compression fracture of unspecified thoracic vertebra, initial encounter for closed fracture (principal); M80.00XA Age-related osteoporosis with current pathological fracture, unspecified site, initial encounter for fracture; X58.XXXA Exposure to other specified factors, initial encounter ==

== ENCOUNTER 2020-02-24 17:48 | Observation (INO) ==
[2020-02-24 18:26] LABS: Basophils # (auto) 0.04 K/uL (0-0.2); Basophils % (auto) 0.4 %; Eosinophils # (auto) 0.42 K/uL (0-0.5); Hematocrit (blood only) 37.9 % (37-47); Hemoglobin 12.7 g/dL (12.0-16.0); Immature Granulocytes # (auto) 0.06 K/uL (0.00-0.02); Immature Granulocytes % (auto) 0.6 %; Lymphocytes # (auto) 2.25 K/uL (1.2-3.4); Lymphocytes % (auto) 21.2 %; Mean Corpuscular Hemoglobin 29.1 pg (25-34); Mean Corpuscular Hgb Conc 33.5 g/dL (32-36); Mean Corpuscular Volume 86.9 fL (80-100); Mean Platelet Volume 10.8 fL (7.4-10.4); Monocytes # (auto) 0.91 K/uL (0.11-0.59); Monocytes % (auto) 8.6 %; Neutrophils # (auto) 6.92 K/uL (1.4-6.5); Neutrophils % (auto) 65.2 %; Platelet Count 187 K/uL (130-400); RDW Coefficient of Variation 13.8 % (11.5-14.5); RDW Standard Deviation 43.9 fL (36.4-46.3); Red Blood Count 4.36 M/uL (4.2-5.4)
--- NOTE | 2020-02-24 18:35 | XRay Report ---
XR chest 1V portable CLINICAL HISTORY: weakness COMPARISON STUDY: 06/29/2019 FINDINGS: The heart is enlarged. There is a left subclavian single chamber central venous pacemaker. There are persistent left basilar opacities, likely representing areas of atelectasis/scarring. Right lung appears clear. There are old rib deformities.[There is suspected underlying pulmonary emphysema . IMPRESSION: 1. Mild cardiomegaly 2. Persistent left basilar opacities, likely representing atelectasis/scarring ACT 112: Negative or not required by law. Electronically signed by: Eric Gonzalez M.D. 02/24/2020 6:33 PM
--- NOTE | 2020-02-24 18:37 | Emergency Department Note ---
History of Present Illness General Chief complaint: Syncope Stated complaint: NOSE BLEEDS, SYNCOPE, LETHARGIC SINCE 02/06/2020 Time Seen by Provider: 02/24/20 18:35 Source: patient Mode of arrival: EMS Limitations: no limitations History of Present Illness Provider complaint: Generalized weakness/syncope Maximum Pain Intensity: 0 This is a 79-year-old female who presents to the ED with a chief complaint of generalized weakness. The patient had a syncopal episode prior to arrival. She states that she went to the bathroom to wash herself up. She was sitting at the time and she began feeling lightheaded. She called for her son and as they were walking out to the living room, she passed out. She states that she started feeling that she was lightheaded and her vision got dark. Her son lowered her to the ground. She was not diaphoretic when she awoke. She was transported here by EMS. The patient was here yesterday for a right sided nosebleed. She has a packing in place. There is no current bleeding. She feels like she might of lost a moderate amount of blood yesterday. She is on Xarelto for chronic A. fib. The patient states that she feels fine now. She thinks that she would feel lightheaded if she got up. No recent illness or fevers. No abdominal pains. No chest pains. No palpitations. She has a pacemaker. Home Medications Home Medications Medication Instructions Recorded Confirmed Type blood sugar diagnostic #10 ea 11/07/18 01/20/20 History calcium citrate 250 mg 1 tab PO QAM tab 11/07/18 02/24/20 History calcium-vitamin D3 5 mcg (200 unit) tablet cranberry concentrate-ascorbic 1 cap PO DAILY cap 11/07/18 02/24/20 History acid 4,200 mg-20 mg capsule docusate sodium 100 mg capsule 100 mg PO PM 11/07/18 02/24/20 History multivitamin 1 tab PO QAM 11/07/18 02/24/20 History psyllium husk (with sugar) 3.4 2 tbs PO QPM PRN ea 11/07/18 02/24/20 History gram oral powder packet denosumab 60 mg/mL subcutaneous 60 mg SQ Q6MO ml 03/02/19 02/24/20 History syringe ergocalciferol (vitamin D2) 1,250 mcg PO MONTHLY 06/03/19 02/24/20 History [Vitamin D2] albuterol sulfate 2.5 mg INH Q4H PRN #180 ml 06/29/19 02/24/20 Rx furosemide 20 mg tablet 20 mg PO QAM #90 tab 07/07/19 02/24/20 Rx nitroglycerin 0.4 mg sublingual 0.4 mg SL UD PRN #20 tab 09/22/19 02/24/20 Rx tablet albuterol sulfate 90 mcg/actuation 2 puffs INH Q4H PRN #18 gm 09/29/19 02/24/20 Rx aerosol inhaler tiotropium bromide 2.5 2 puffs INH BID gm 09/29/19 02/24/20 History mcg/actuation mist for inhalation isosorbide mononitrate 30 mg 90 mg PO QAM #270 tab 10/01/19 02/24/20 Rx tablet,extended release 24 hr fluticasone furoate 100 1 puffs INH DAILY #3 inhaler 10/28/19 02/24/20 Rx mcg-vilanterol 25 mcg/dose inhalation powder atenolol 50 mg tablet 50 mg PO QAM #90 tab 11/01/19 02/24/20 Rx mometasone 50 mcg/actuation nasal 1 spray INTRANASAL DAILY #17 g 12/28/19 02/24/20 Rx spray amlodipine 10 mg tablet 10 mg PO QAM #90 tab 01/05/20 02/24/20 Rx sitagliptin 25 mg tablet 25 mg PO QAM #90 tab 01/05/20 02/24/20 Rx zolpidem 5 mg tablet 5 mg PO QPM #30 tab 01/07/20 02/24/20 Rx losartan 25 mg tablet 25 mg PO QAM #90 tab 01/20/20 02/24/20 Rx rivaroxaban 15 mg tablet 15 mg PO 1700 #90 tab 01/20/20 02/24/20 Rx simvastatin 20 mg tablet 20 mg PO HS #90 tab 01/20/20 02/24/20 Rx ofloxacin 10 drp OTIC (EAR) BID 10 Days #5 ml 02/11/20 02/24/20 Rx doxycycline hyclate 100 mg PO BID 3 Days #6 cap 02/23/20 02/24/20 Rx Allergies Allergy/AdvReac Type Severity Reaction Status Date / Time chlorthalidone Allergy Severe Swelling Verified 02/24/20 20:30 of Lip/Tongue/Throat Penicillins Allergy Severe Swelling Verified 02/24/20 20:30 of Lip/Tongue/Throat MANDEEP Inhibitors Allergy Unknown Verified 02/24/20 20:30 atenolol Allergy Unknown Verified 02/24/20 20:30 trazodone Allergy Unknown Verified 02/24/20 20:30 Past Med/Surg History Medical History (Updated 02/24/20 @ 20:47 by Mic Zarate DO) Atrial fibrillation permanent, now s/p PPM (2016) CAD (coronary artery disease) CT (1992) CHF (congestive heart failure) follows with [facility] (Dr. Marcos) Chronic kidney disease, stage 3 follows with nephrology ([facility]/Dr. Richard) COPD (chronic obstructive pulmonary disease) 2L HS + occasionally PRN, follows with [facility] Deep vein thrombosis B/L LE (1967), Diabetes mellitus, type 2 NIDDM Hearing deficit History of kidney cancer s/p L nephrectomy (1997) Hyperlipidemia controlled Hypertension controlled Insomnia Mixed conductive and sensorineural hearing loss of left ear with restricted hearing of right ear Osteoarthritis Osteoporosis Pacemaker Implanted 2016, [employer], last check 09/2019 Pulmonary nodule per records Restless leg syndrome Surgical History History of cardiac cath 10+ years ago, no stents History of cholecystectomy History of colonoscopy History of hip surgery R/L NABEEL History of myringotomy + Left ear tube removal: 06/09/19: LMA#4 atraumatic at [facility] History of nephrectomy left History of vaginal hysterectomy Hx of bilateral cataract extraction Status post placement of cardiac pacemaker 2016 Family History Brother Hypertension Mother Cardiac disorder Sister Lung cancer Aunt Lung cancer Father No problems noted. Unknown Family history of allergies Environmental allergies Denies family history of Ovarian cancer Prostate cancer Myocardial infarction Breast cancer Colorectal cancer Social History Smoking Status: Never smoker Tobacco Type: Cigarettes Age Started Using Tobacco: 26; Age Quit Using Tobacco: 55; packs per day: 1; Years Smoked: 29; Cigarettes Per Day: 20; Number of Years Since Quit: 25; Second Hand Exposure: No; Hx Alcohol Use: No Hx Substance Use: No Preferred Language: Bahamian Communication Ability: Effective Collision Repairer Required: No Beliefs That Will Affect Care: None marital status: / Current Living Situation: Family Current Living Situation Comment: SON LIVES WITH PATIENT current occupational status: retired Feels Safe at Home: Yes Dental Care, Regularly: No Physical Activity Frequency: 1-2 Times per Week Seatbelt Use: always Sunscreen Use: Yes Assistive Devices: Denture - Upper, Denture - Lower, Glasses and Oxygen - at Night Review of Systems A total of 10 systems reviewed and were otherwise negative Physical Exam Vital Signs Vital Signs - 24 hr 02/24/20 17:58 02/24/20 18:11 02/24/20 18:16 Temperature 36.7 C Temperature Source Oral Pulse Rate - Lying Pulse Rate - Sitting Pulse Rate - Standing Pulse Rate 60 61 61 Pulse Rhythm Regular Respiratory Rate 17 20 20 Respiratory Effort / Characteristics Non-Labored Spontaneous Respiratory Depth Normal Respiratory Pattern Regular Blood Pressure - Lying Blood Pressure - Sitting Blood Pressure- Standing Blood Pressure 85/51 L 150/85 H Blood Pressure Mean 62 118 Pulse Oximetry 94 95 96 Oxygen Delivery Method Room Air Room Air Room Air Sepsis Recent Fever Within 48 Hours No Sepsis New/Unexplained Change in Mental Status No Sepsis Action Taken by Nursing No Action Required 02/24/20 20:05 Temperature Temperature Source Pulse Rate - Lying 61 Pulse Rate - Sitting 62 Pulse Rate - Standing 64 Pulse Rate Pulse Rhythm Respiratory Rate Respiratory Effort / Characteristics Respiratory Depth Respiratory Pattern Blood Pressure - Lying 163/55 H Blood Pressure - Sitting 175/73 H Blood Pressure- Standing 139/48 L Blood Pressure Blood Pressure Mean Pulse Oximetry Oxygen Delivery Method Sepsis Recent Fever Within 48 Hours Sepsis New/Unexplained Change in Mental Status Sepsis Action Taken by Nursing CONSTITUTIONAL/VITAL SIGNS: Reviewed / noted above. GENERAL: Non-toxic in appearance. INTEGUMENTARY: Warm, dry, and [place]. HEAD: Normocephalic. EYES: without scleral icterus or trauma. ENT/OROPHARYNX: clear and moist. LYMPHADENOPATHY/NECK: Is supple without lymphadenopathy or meningismus. RESPIRATORY: Lungs clear and equal. CARDIOVASCULAR: Regular rate and rhythm. GI/ABDOMEN: Soft and nontender. No organomegaly or pulsatile mass. No rebound or guarding. Normal bowel sounds. EXTREMITIES: Warm and well perfused. BACK: No CVA tenderness. NEUROLOGICAL: Intact without focal deficits. PSYCHIATRIC: normal affect. MUSCULOSKELETAL: Normally developed with good muscle tone. TRIAGE NURSING DOCUMENTATION REVIEWED. Course Administered Medications Discontinued Medications Sodium Chloride (Nss 1000ml) 500 mls @ 999 mls/hr IV .Q31M ONE Stop: 02/24/20 19:30 Last Infusion: 02/24/20 19:45 Dose: 0 mls/hr Documented by: [id number] Admin: 02/24/20 19:07 Dose: 999 mls/hr Documented by: [id number] Medical Decision Making Differential Diagnosis Differential includes acute coronary syndrome, myocardial infarction, CVA, TIA, anemia, infection, pneumonia, UTI, pyelonephritis, poor nutrition, dehydration, electrolyte disturbance,hypoglycemia. Medical Records Attestation: I reviewed the patient's medical records. Home Medications Current Medication List: was personally reviewed by me Laboratory Data Attestation: I reviewed the patient's lab results. Result diagrams: 02/24/20 18:16 02/24/20 18:16 Lab Results 02/24/20 02/24/20 Range/Units 18:16 18:16 WBC 10.60 (4.8-10.8) K/uL RBC 4.36 (4.2-5.4) M/uL Hgb 12.7 (12.0-16.0) g/dL Hct 37.9 (37-47) % MCV 86.9 (80-100) fL MCH 29.1 (25-34) pg MCHC 33.5 (32-36) g/dL RDW Std Deviation 43.9 (36.4-46.3) fL RDW Coeff of Stephane 13.8 (11.5-14.5) % Plt Count 187 (130-400) K/uL MPV 10.8 H (7.4-10.4) fL Immature Gran % (Auto) 0.6 % Neut % (Auto) 65.2 % Lymph % (Auto) 21.2 % Richardson % (Auto) 8.6 % Eos % (Auto) 4.0 % Baso % (Auto) 0.4 % Neut # (Auto) 6.92 H (1.4-6.5) K/uL Lymph # (Auto) 2.25 (1.2-3.4) K/uL Richardson # (Auto) 0.91 H (0.11-0.59) K/uL Eos # (Auto) 0.42 (0-0.5) K/uL Baso # (Auto) 0.04 (0-0.2) K/uL Immature Gran # (Auto) 0.06 H (0.00-0.02) K/uL Sodium 136 (136-145) mmol/L Potassium 4.0 (3.5-5.1) mmol/L Chloride 101 (98-107) mmol/L Carbon Dioxide 26 (21-32) mmol/L Anion Gap 8.0 (3-11) BUN 34 H (7-18) mg/dl Creatinine 1.48 H (0.6-1.2) mg/dl Est Cr Clr Drug Dosing 33.1 ml/min Est GFR ( Amer) 38.1 Est GFR (Non-Af Amer) 32.9 BUN/Creatinine Ratio 23.0 H (10-20) Glucose 154 H (70-99) mg/dl Calcium 9.5 (8.5-10.1) mg/dl Total Bilirubin 0.5 (0.2-1) mg/dl AST 13 L (15-37) U/L ALT 14 (12-78) U/L Alkaline Phosphatase 50 (45-117) U/L Troponin I < 0.015 (0-0.045) ng/ml Total Protein 7.2 (6.4-8.2) gm/dl Albumin 3.1 L (3.4-5.0) gm/dl Globulin 4.1 H (2.5-4.0) gm/dl Albumin/Globulin Ratio 0.8 L (0.9-2) TSH 2.510 (0.300-4.500) uIu/ml Imaging Data Radiologist's Impression: XR chest 1V portable CLINICAL HISTORY: weakness COMPARISON STUDY: 06/29/2019 FINDINGS: The heart is enlarged. There is a left subclavian single chamber central venous pacemaker. There are persistent left basilar opacities, likely representing areas of atelectasis/scarring. Right lung appears clear. There are old rib deformities.[There is suspected underlying pulmonary emphysema. IMPRESSION: 1. Mild cardiomegaly 2. Persistent left basilar opacities, likely representing atelectasis/scarring ECG Data Attestation: I personally reviewed and interpreted this ECG as follows: Indication: + syncope Rate (beats per minute): 60 Rhythm: + other (Paced ventricular rhythm) ECG ST segments: no ST elevation ECG Findings: no PVCs MDM Narrative Patient presents with generalized weakness. She had a syncopal episode earlier today. Details listed above. Her initial blood pressure was low but a second blood pressure was, I prior to any treatment. Orthostatic vital signs did not show any hypotension. The patient's EKG showed a paced ventricular rhythm at a rate of 60. CBC was normal. Chest x-ray was negative for acute disease. BUN is 34 and creatinine is 1.48. This is near the patient's baseline. Troponin was negative. I did speak with the patient's son on the phone. His numbers [phone]. He feels uncomfortable with the patient, home tonight. He would like her to be observed because of the patient's recurrence and weakness. I spoke with the hospitalist about this patient. Impression & Plan Syncope, Weakness Discharge Plan Visit Data Chief Complaint: Syncope Stated Complaint: NOSE BLEEDS, SYNCOPE, LETHARGIC SINCE 02/06/2020 ED Provider: Mic Zarate Discharge Problem: Syncope, Weakness Patient Disposition: Being Evaluated by Hospitalist Forms Stand Alone Forms: My [facility] Prescriptions Prescriptions: No Action furosemide 20 mg tablet 20 mg PO QAM Qty: 90 RF: 3 isosorbide mononitrate 30 mg tablet extended release 24 hr 90 mg PO QAM Qty: 270 RF: 3 Breo Ellipta 100-25 mcg/dose blister with device 1 puffs INH DAILY Qty: 3 RF: 1 atenolol 50 mg tablet 50 mg PO QAM Qty: 90 RF: 3 Januvia 25 mg tablet 25 mg PO QAM Qty: 90 RF: 3 amlodipine 10 mg tablet 10 mg PO QAM Qty: 90 RF: 3 zolpidem 5 mg tablet 5 mg PO QPM Qty: 30 RF: 5 mometasone 50 mcg/actuation spray,non-aerosol 1 spray intranasal DAILY Qty: 17 RF: 1 simvastatin 20 mg tablet 20 mg PO HS Qty: 90 RF: 3 Xarelto 15 mg tablet 15 mg PO 1700 Qty: 90 RF: 3 losartan 25 mg tablet 25 mg PO QAM Qty: 90 RF: 3 albuterol sulfate [Ventolin HFA] 90 mcg/actuation HFA aerosol inhaler 2 puffs INH Q4H PRN (Reason: shortness of breath or wheezing) Qty: 18 RF: 3 Spiriva Respimat 2.5 mcg/actuation mist 2 puffs INH BID RF: 0 nitroglycerin 0.4 mg tablet, sublingual 0.4 mg SL UD PRN (Reason: chest pain) Qty: 20 RF: 0 (DME) OneTouch Ultra Blue Test Strip strip See Dose Instructions .ROUTE .MEDSUPPLY Qty: 10 RF: 0 cranberry conc-ascorbic acid 4,200-20 mg capsule 1 cap PO DAILY RF: 0 calcium citrate-vitamin D3 250 mg calcium- 200 unit tablet 1 tab PO QAM RF: 0 docusate sodium 100 mg capsule 100 mg PO PM RF: 0 psyllium husk (with sugar) 3.4 gram powder in packet 2 tbs PO QPM PRN (Reason: Constipation) RF: 0 multivitamin tablet 1 tab PO QAM RF: 0 Prolia 60 mg/mL syringe 60 mg SQ Q6MO RF: 0 albuterol sulfate 2.5 mg /3 mL (0.083 %) solution for nebulization 2.5 mg INH Q4H PRN (Reason: shortness of breath or wheezing) Qty: 180 RF: 5 doxycycline hyclate 100 mg capsule 100 mg PO BID 3 Days Qty: 6 RF: 0 ergocalciferol (vitamin D2) [Vitamin D2] 1,250 mcg (50,000 unit) Capsule 1,250 mcg PO MONTHLY RF: 0 ofloxacin 0.3 % Drops 10 drp OTIC (EAR) BID 10 Days Qty: 5 RF: 8 Referrals Referrals: Swapnil Headley MD [Primary Care Provider] -
[2020-02-24 18:45] LABS: Alanine Aminotransferase 14 U/L (12-78); Albumin Level 3.1 gm/dl (3.4-5.0); Aspartate Aminotransferase 13 U/L (15-37); Blood Urea Nitrogen 34 mg/dl (7-18); Calcium 9.5 mg/dl (8.5-10.1); Carbon Dioxide 26 mmol/L (21-32); Chloride 101 mmol/L (98-107); Creatinine Clr Calc Pharmacy 33.1 ml/min; Est GFR (African American) 38.1; Est GFR (Non-African American) 32.9; Glucose 154 mg/dl (70-99); Sodium 136 mmol/L (136-145)
[2020-02-24 18:55] LABS: Albumin Globulin Ratio 0.8 (0.9-2); Alkaline Phosphatase 50 U/L (45-117); Bilirubin,Total 0.5 mg/dl (0.2-1); Globulin 4.1 gm/dl (2.5-4.0); Total Protein 7.2 gm/dl (6.4-8.2); Troponin I < 0.015 ng/ml (0-0.045)
[2020-02-24] MEDS ORDERED: SODIUM CHLORIDE 0.9% 1000ML 500 ML IV ONE (19:00)
[2020-02-24 22:08] LABS: Appearance Urine Clear (Clear); Bacteria Urine Automated Negative (Negative); Bilirubin Urine Negative (Negative); Blood Urine Negative (Negative); Color Urine Yellow; Glucose Urine UA Negative (Negative); Ketones Urine Negative (Negative); Leukocyte Esterase Urine 2+ (Negative); Nitrite Urine Negative (Negative); Protein Urine Negative (Negative); RBC Urine Automated 0-4 /hpf (0-4); Specific Gravity Urine 1.012 (1.000-1.030); Urobilinogen Urine Negative (Negative)
--- NOTE | 2020-02-25 00:52 | History & Physical Report ---
Date of Service February 24, 2020 Assessment & Plan (1) Syncope: Patient with syncopal event at home. Currently asymptomatic, EKG is V- paced with no concerning findings. No neurological deficits. History of CHF, well compensated -Monitor overnight on medical -Pacer interrogation -Gentle IVF -PT/OT evaluation Present on Admission?: Yes (2) Acute posterior epistaxis: Patient with occlusive device in place. No active bleeding appreciated. -Continue to hold anticoagulants -ENT followup as scheduled Present on Admission?: Yes (3) Weakness: Patient with no focal weakness. Possibly some mild dehydration/volume depletion. Electrolytes are WNL. No Covid-19 exposure -PT/OT -Fall precautions Present on Admission?: Yes (4) Hypertension: Blood pressure elevated -Continue Amlodipine, Atenolol, Losartan -Continue to monitor Present on Admission?: Yes (5) DM (diabetes mellitus): Chronic. -Continue Januvia -ISS -Goal blood sugar 100 - 140 Present on Admission?: Yes (6) Hyperlipidemia: Chronic. -Continue Simvastatin Present on Admission?: Yes (7) Atrial fibrillation: Patient V-paced, rate controlled, anticoagulated with Rivaroxaban -Continue Atenolol -Hold Rivaroxaban for epistaxis as above -Pacer interrogation Present on Admission?: Yes (8) CKD (chronic kidney disease), stage III: Near baseline -Avoid nephrotoxic agents -Renal dosing where needed Present on Admission?: Yes (9) Chronic diastolic CHF (congestive heart failure): Patient appears euvolemic, possibly slightly dry -Continue CHF meds - Losartan, Isosorbide, Lasix, Atenolol -Gentle fluids -Continue to monitor volume status Present on Admission?: Yes (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 She had recent placement of left ear tube for chronic otitis media and hearing loss. Patient had an episode of epistaxis yesterday for which she was seen in the ER. Reports significant blood loss through her right nare. She had a rhino-rocket placed with hemostasis achieved. She was to be seen by ENT tomorrow 02/25/20 which was rescheduled to 02/28/20. She is on Rivaroxaban for history of atrial fibrillation which has been on hold since yesterday. Plan was for rhino-rocket to be removed by ENT. Patient reports dizziness and weakness over the last few days, overall feeling poorly. She was in her home this evening with her son, walked down the [place] then became dizzy with tunnel-vision and had a syncopal event. She did not hit her head. Recalls waking up on the floor with pillows under her head. Denies CP/palpitations/SOB/numbness/weakness preceding or following the event. Currently without complaint. ER Course: NSS x 500mL Allergies Allergy/AdvReac Type Severity Reaction Status Date / Time chlorthalidone Allergy Severe Swelling Verified 02/24/20 20:30 of Lip/Tongue/Throat Penicillins Allergy Severe Swelling Verified 02/24/20 20:30 of Lip/Tongue/Throat MANDEEP Inhibitors Allergy Unknown Verified 02/24/20 20:30 atenolol Allergy Unknown Verified 02/24/20 20:30 trazodone Allergy Unknown Verified 02/24/20 20:30 Home Medications Home Medications Medication Instructions Recorded Confirmed Type blood sugar diagnostic #10 ea 11/07/18 01/20/20 History calcium citrate 250 mg 1 tab PO QAM tab 11/07/18 02/24/20 History calcium-vitamin D3 5 mcg (200 unit) tablet cranberry concentrate-ascorbic 1 cap PO DAILY cap 11/07/18 02/24/20 History acid 4,200 mg-20 mg capsule docusate sodium 100 mg capsule 100 mg PO PM 11/07/18 02/24/20 History multivitamin 1 tab PO QAM 11/07/18 02/24/20 History psyllium husk (with sugar) 3.4 2 tbs PO QPM PRN ea 11/07/18 02/24/20 History gram oral powder packet denosumab 60 mg/mL subcutaneous 60 mg SQ Q6MO ml 03/02/19 02/24/20 History syringe ergocalciferol (vitamin D2) 1,250 mcg PO MONTHLY 06/03/19 02/24/20 History [Vitamin D2] albuterol sulfate 2.5 mg INH Q4H PRN #180 ml 06/29/19 02/24/20 Rx furosemide 20 mg tablet 20 mg PO QAM #90 tab 07/07/19 02/24/20 Rx nitroglycerin 0.4 mg sublingual 0.4 mg SL UD PRN #20 tab 09/22/19 02/24/20 Rx tablet albuterol sulfate 90 mcg/actuation 2 puffs INH Q4H PRN #18 gm 09/29/19 02/24/20 Rx aerosol inhaler tiotropium bromide 2.5 2 puffs INH BID gm 09/29/19 02/24/20 History mcg/actuation mist for inhalation isosorbide mononitrate 30 mg 90 mg PO QAM #270 tab 10/01/19 02/24/20 Rx tablet,extended release 24 hr fluticasone furoate 100 1 puffs INH DAILY #3 inhaler 10/28/19 02/24/20 Rx mcg-vilanterol 25 mcg/dose inhalation powder atenolol 50 mg tablet 50 mg PO QAM #90 tab 11/01/19 02/24/20 Rx mometasone 50 mcg/actuation nasal 1 spray INTRANASAL DAILY #17 g 12/28/19 02/24/20 Rx spray amlodipine 10 mg tablet 10 mg PO QAM #90 tab 01/05/20 02/24/20 Rx sitagliptin 25 mg tablet 25 mg PO QAM #90 tab 01/05/20 02/24/20 Rx zolpidem 5 mg tablet 5 mg PO QPM #30 tab 01/07/20 02/24/20 Rx losartan 25 mg tablet 25 mg PO QAM #90 tab 01/20/20 02/24/20 Rx rivaroxaban 15 mg tablet 15 mg PO 1700 #90 tab 01/20/20 02/24/20 Rx simvastatin 20 mg tablet 20 mg PO HS #90 tab 01/20/20 02/24/20 Rx ofloxacin 10 drp OTIC (EAR) BID 10 Days #5 ml 02/11/20 02/24/20 Rx doxycycline hyclate 100 mg PO BID 3 Days #6 cap 02/23/20 02/24/20 Rx Past Med/Surg History Medical History (Updated 02/25/20 @ 02:10 by Merced Patricia DO) Atrial fibrillation permanent, now s/p PPM (2016) CAD (coronary artery disease) [place] (1992) CHF (congestive heart failure) follows with [facility] (Dr. Marcos) Chronic kidney disease, stage 3 follows with nephrology ([facility]/Dr. Richard) COPD (chronic obstructive pulmonary disease) 2L HS + occasionally PRN, follows with [facility] COPD with asthma Deep vein thrombosis B/L LE (1967), Diabetes mellitus, type 2 NIDDM Hearing deficit History of kidney cancer s/p L nephrectomy (1997) Hyperlipidemia controlled Hypertension controlled Insomnia Mixed conductive and sensorineural hearing loss of left ear with restricted hearing of right ear Osteoarthritis Osteoporosis Pacemaker Implanted 2016, [employer], last check 09/2019 Pulmonary nodule per records Restless leg syndrome Surgical History History of cardiac cath 10+ years ago, no stents History of cholecystectomy History of colonoscopy History of hip surgery R/L NABEEL History of myringotomy + Left ear tube removal: 06/09/19: LMA#[address] [facility] History of nephrectomy left History of vaginal hysterectomy Hx of bilateral cataract extraction Status post placement of cardiac pacemaker 2016 Family History Brother Hypertension Mother Cardiac disorder Sister Lung cancer Aunt Lung cancer Father No problems noted. Unknown Family history of allergies Environmental allergies Denies family history of Ovarian cancer Prostate cancer Myocardial infarction Breast cancer Colorectal cancer Social History Smoking Status: Never smoker Tobacco Type: Cigarettes Age Started Using Tobacco: 26; Age Quit Using Tobacco: 55; packs per day: 1; Years Smoked: 29; Cigarettes Per Day: 20; Number of Years Since Quit: 25; Second Hand Exposure: No; Hx Alcohol Use: No Hx Substance Use: No Preferred Language: Polish Communication Ability: Effective Religious Education Director Required: No Beliefs That Will Affect Care: None marital status: / Current Living Situation: Family Current Living Situation Comment: SON LIVES WITH PATIENT current occupational status: retired Feels Safe at Home: Yes Dental Care, Regularly: No Physical Activity Frequency: 1-2 Times per Week Seatbelt Use: always Sunscreen Use: Yes Assistive Devices: Denture - Upper, Denture - Lower, Glasses and Oxygen - at Night Review of Systems Review of Systems: All systems reviewed & are unremarkable except as noted in HPI & below Physical Exam Physical Exam: General: patient resting comfortably, NAD, non-toxic in appearance, AA&O x 4, pleasant Skin: warm, dry, intact, no rashes or lesions HEENT: NC/AT, PERRL, EOMI, anicteric sclera, conjunctiva without injection, external ear normal to inspection and nontender, occlusive device present in right nare, moist mucus membranes, dentition intact, no oropharyngeal lesions, neck supple, trachea midline, no LAD, no thyromegaly, no JVD Heart: +S1/S2, regular, no m/r/g Lungs: equal air entry bilaterally, no rales/rhonchi/wheezes Abd: +BS, soft, NT/ND, no masses/organomegaly/ascites Ext: warm, 2+ pulses in UE/LE bilaterally, no clubbing/cyanosis or edema Neuro: nonfocal, patient AA&O x 4, speech intact, no facial droop, moving all extremities on command with equal strength 5/5 Results & Data Results & Data ([facility]) Vital Signs (Past 12 Hours) Vital Signs Temp Pulse Resp BP Pulse Ox 02/24/20 23:30 60 17 179/90 H 97 02/24/20 22:30 72 17 163/84 H 94 02/24/20 22:00 60 16 189/87 H 97 02/24/20 21:30 61 18 174/83 H 97 02/24/20 21:00 60 17 147/82 H 97 02/24/20 20:30 60 18 165/63 H 97 02/24/20 19:31 64 18 167/77 H 96 02/24/20 19:01 60 17 94 02/24/20 19:00 60 16 139/61 95 02/24/20 18:16 61 20 96 02/24/20 18:11 61 20 150/85 H 95 02/24/20 17:58 36.7 C 60 17 85/51 L 94 Laboratory Results Lab Results 02/24/20 02/24/20 02/24/20 Range/Units 18:16 18:16 21:27 WBC 10.60 (4.8-10.8) K/uL RBC 4.36 (4.2-5.4) M/uL Hgb 12.7 (12.0-16.0) g/dL Hct 37.9 (37-47) % MCV 86.9 (80-100) fL MCH 29.1 (25-34) pg MCHC 33.5 (32-36) g/dL RDW Std Deviation 43.9 (36.4-46.3) fL RDW Coeff of Stephane 13.8 (11.5-14.5) % Plt Count 187 (130-400) K/uL MPV 10.8 H (7.4-10.4) fL Immature Gran % (Auto) 0.6 % Neut % (Auto) 65.2 % Lymph % (Auto) 21.2 % [place] % (Auto) 8.6 % Eos % (Auto) 4.0 % Baso % (Auto) 0.4 % Neut # (Auto) 6.92 H (1.4-6.5) K/uL Lymph # (Auto) 2.25 (1.2-3.4) K/uL [place] # (Auto) 0.91 H (0.11-0.59) K/uL Eos # (Auto) 0.42 (0-0.5) K/uL Baso # (Auto) 0.04 (0-0.2) K/uL Immature Gran # (Auto) 0.06 H (0.00-0.02) K/uL Sodium 136 (136-145) mmol/L Potassium 4.0 (3.5-5.1) mmol/L Chloride 101 (98-107) mmol/L Carbon Dioxide 26 (21-32) mmol/L Anion Gap 8.0 (3-11) BUN 34 H (7-18) mg/dl Creatinine 1.48 H (0.6-1.2) mg/dl Est Cr Clr Drug Dosing 33.1 ml/min Est GFR ( Amer) 38.1 Est GFR (Non-Af Amer) 32.9 BUN/Creatinine Ratio 23.0 H (10-20) Glucose 154 H (70-99) mg/dl Calcium 9.5 (8.5-10.1) mg/dl Total Bilirubin 0.5 (0.2-1) mg/dl AST 13 L (15-37) U/L ALT 14 (12-78) U/L Alkaline Phosphatase 50 (45-117) U/L Troponin I < 0.015 (0-0.045) ng/ml Total Protein 7.2 (6.4-8.2) gm/dl Albumin 3.1 L (3.4-5.0) gm/dl Globulin 4.1 H (2.5-4.0) gm/dl Albumin/Globulin Ratio 0.8 L (0.9-2) TSH 2.510 (0.300-4.500) uIu/ml Urine Color Yellow Urine Appearance Clear (Clear) Urine pH 6.0 (4.5-7.5) Ur Specific [place] 1.012 (1.000-1.030) Urine Protein Negative (Negative) Urine Glucose (UA) Negative (Negative) Urine Ketones Negative (Negative) Urine Blood Negative (Negative) Urine Nitrite Negative (Negative) Urine Bilirubin Negative (Negative) Urine Urobilinogen Negative (Negative) Ur Leukocyte Esterase 2+ H (Negative) Urine WBC (Auto) 10-30 H (0-5) /hpf Urine RBC (Auto) 0-4 (0-4) /hpf U Hyaline Cast (Auto) 1-5 (0-5) /lpf U Epithel Cells (Auto) 10-20 H (0-5) /lpf Urine Bacteria (Auto) Negative (Negative) Diagnostic Findings XR chest 1V portable CLINICAL HISTORY: weakness COMPARISON STUDY: 06/29/2019 FINDINGS: The heart is enlarged. There is a left subclavian single chamber central venous pacemaker. There are persistent left basilar opacities, likely representing areas of atelectasis/scarring. Right lung appears clear. There are old rib deformities.[There is suspected underlying pulmonary emphysema. IMPRESSION: 1. Mild cardiomegaly 2. Persistent left basilar opacities, likely representing atelectasis/scarring ACT 112: Negative or not required by law. Electronically signed by: Eric Gonzalez M.D. 02/24/2020 6:33 PM Dictated: 02/24/201831 Transcribed: 02/24/201831 ECG Additional Comments: +S1/S2, regular, no m/r/g Code Status & VTE Plan Code Status Full Code VTE Prophylaxis Plan VTE Prophylaxis will be ordered: Yes PG Care Time/CCT Total # of Minutes Spent Total Time Spent with Patient: Total time spent is greater than 50% in coordination of care (as documented) at patient's floor/unit and/or counseling patient: Coding Diagnoses Syncope R55 Syncope type: unspecified Acute posterior epistaxis R04.0 Weakness R53.1 Hypertension I10 Hypertension type: essential hypertension DM (diabetes mellitus) E11.9 Diabetes mellitus complication status: without complication Diabetes mellitus alf insulin use: without alf use Diabetes mellitus type: type 2 Hyperlipidemia E78.5 Hyperlipidemia type: unspecified Atrial fibrillation I48.91 Atrial fibrillation type: unspecified CKD (chronic kidney disease), stage III N18.30 Chronic kidney disease stage 3 subtype: unspecified whether 3a or 3b Chronic diastolic CHF (congestive heart failure) I50.32 COPD with asthma J44.9 (1) DM (diabetes mellitus) Diabetes mellitus complication status: without complication Diabetes mellitus long term acute care registered nurse insulin use: without long term acute care registered nurse use Diabetes mellitus type: type 2 Qualified Code(s): E11.9 - Type 2 diabetes mellitus without complications (2) CKD (chronic kidney disease), stage III Chronic kidney disease stage 3 subtype: unspecified whether 3a or 3b Qualified Code(s): N18.30 - Chronic kidney disease, stage 3 unspecified (3) Atrial fibrillation Atrial fibrillation type: unspecified Qualified Code(s): I48.91 - Unspecified atrial fibrillation (4) Hyperlipidemia Hyperlipidemia type: unspecified Qualified Code(s): E78.5 - Hyperlipidemia, unspecified (5) Syncope Syncope type: unspecified Qualified Code(s): R55 - Syncope and collapse (6) Hypertension Hypertension type: essential hypertension Qualified Code(s): I10 - Essential (primary) hypertension
[2020-02-25] MEDS ORDERED: ONDANSETRON INJ 2 MG/ML 2 ML VIAL IV PRN (01:19)
[2020-02-25] MEDS ORDERED: SODIUM CHLORIDE 0.9% 1000ML 1,000 ML IV SCH (01:19)
[2020-02-25] MEDS ORDERED: ALBUTEROL HFA 8 GM INHALER INH PRN (01:19)
[2020-02-25] MEDS ORDERED: ALBUTEROL 0.083% NEBU SOLN 3 ML VIAL INH PRN (01:19)
[2020-02-25] MEDS ORDERED: DEXTROSE 50% 50 ML SYRINGE IV PRN (02:11)
[2020-02-25] MEDS ORDERED: CARBOHYDRATES FOR HYPOGLYCEMIA PO PRN (02:11)
[2020-02-25] MEDS ORDERED: GLUCOSE 10 TABS/TUBE PO PRN (02:11)
[2020-02-25] MEDS ORDERED: GLUCOSE 40% GEL 15 GM TUBE PO PRN (02:11)
[2020-02-25] MEDS ORDERED: GLUCAGON FOR INJ 1 MG VIAL SQ PRN (02:11)
[2020-02-25 06:21] LABS: Basophils # (auto) 0.04 K/uL (0-0.2); Basophils % (auto) 0.5 %; Eosinophils # (auto) 0.48 K/uL (0-0.5); Eosinophils % (auto) 6.2 %; Immature Granulocytes # (auto) 0.04 K/uL (0.00-0.02); Immature Granulocytes % (auto) 0.5 %; Lymphocytes # (auto) 2.07 K/uL (1.2-3.4); Lymphocytes % (auto) 26.5 %; Mean Corpuscular Hgb Conc 33.3 g/dL (32-36); Mean Corpuscular Volume 87.1 fL (80-100); Mean Platelet Volume 10.7 fL (7.4-10.4); Monocytes # (auto) 0.78 K/uL (0.11-0.59); Neutrophils # (auto) 4.39 K/uL (1.4-6.5); Neutrophils % (auto) 56.3 %; Platelet Count 155 K/uL (130-400); RDW Coefficient of Variation 13.7 % (11.5-14.5); RDW Standard Deviation 43.6 fL (36.4-46.3); Red Blood Count 3.79 M/uL (4.2-5.4)
[2020-02-25] MEDS: ACETAMINOPHEN 325 MG TAB PO PRN (06:25)
[2020-02-25 07:00] LABS: BUN Creatinine Ratio 27.5 (10-20); Creatinine Clr Calc Pharmacy 42.3 ml/min; Est GFR (African American) 52.8; Est GFR (Non-African American) 45.5; Potassium 3.8 mmol/L (3.5-5.1)
[2020-02-25] MEDS ORDERED: OFLOXACIN 0.3% OP SOLN 5 ML BTL OT SCH (09:00)
[2020-02-25] MEDS ORDERED: DOXYCYCLINE HYCLATE 100 MG CAP PO SCH (09:00)
[2020-02-25] MEDS: INSULIN ASPART 100 UNITS/ML 3 ML PEN SC SCH ×4 (09:30→21:26)
[2020-02-25] MEDS: UMECLIDINIUM BROMIDE 62.5MCG/BLISTER 7 PUFFS/INHALER INH SCH (09:31)
[2020-02-25] MEDS: FLUTICASONE/VILANTEROL 100/25MCG 14 PUFFS/INHALER INH SCH (09:31)
[2020-02-25] MEDS: FUROSEMIDE 20 MG TAB PO SCH (09:32)
[2020-02-25] MEDS: SITagliptin PHOSPHATE 25 MG TAB PO SCH (09:32)
[2020-02-25] MEDS: ISOSORBIDE MONO EXTENDED REL 30 MG TABCR PO SCH (09:32)
[2020-02-25] MEDS: LOSARTAN POTASSIUM 25 MG TAB PO SCH (09:32)
[2020-02-25] MEDS: ATENOLOL 50 MG TABLET PO SCH (09:33)
[2020-02-25] MEDS: amLODIPine BESYLATE 5 MG TAB PO SCH (09:33)
--- NOTE | 2020-02-25 13:04 | ENT Consultation ---
Date of Consultation February 25, 2020 Assessment & Plan (1) Acute posterior epistaxis: The packing was removed after being off of Xarelto for 2 days. She is due to have resumption of Xarelto on Friday. She will have to be watched carefully. Her nocturnal oxygen was previously with nasal cannula which can dry the mucous membranes and cause additional bleeding. This should be switched to humidified oxygen by facemask. Please feel free to call me if there is any further bleeding. (2) Chronic anticoagulation: (3) Syncope: (4) Weakness: History of Present Illness Reason for Consultation: Admitted for syncope and the epistaxis episode 2 days ago Attending Physician: Mreced Patricia DO History of Present Illness This 79-year-old lady with atrial fibrillation on Xarelto developed epistaxis requiring balloon packing in the emergency room 2 days ago now presents and was admitted for syncope Allergies Allergy/AdvReac Type Severity Reaction Status Date / Time chlorthalidone Allergy Severe Swelling Verified 02/24/20 20:30 of Lip/Tongue/Throat Penicillins Allergy Severe Swelling Verified 02/24/20 20:30 of Lip/Tongue/Throat MANDEEP Inhibitors Allergy Unknown Verified 02/24/20 20:30 atenolol Allergy Unknown Verified 02/24/20 20:30 trazodone Allergy Unknown Verified 02/24/20 20:30 Home Medications Home Medications Medication Instructions Recorded Confirmed Type blood sugar diagnostic #10 ea 11/07/18 01/20/20 History calcium citrate 250 mg 1 tab PO QAM tab 11/07/18 02/24/20 History calcium-vitamin D3 5 mcg (200 unit) tablet cranberry concentrate-ascorbic 1 cap PO DAILY cap 11/07/18 02/24/20 History acid 4,200 mg-20 mg capsule docusate sodium 100 mg capsule 100 mg PO PM 11/07/18 02/24/20 History multivitamin 1 tab PO QAM 11/07/18 02/24/20 History psyllium husk (with sugar) 3.4 2 tbs PO QPM PRN ea 11/07/18 02/24/20 History gram oral powder packet denosumab 60 mg/mL subcutaneous 60 mg SQ Q6MO ml 03/02/19 02/24/20 History syringe ergocalciferol (vitamin D2) 1,250 mcg PO MONTHLY 06/03/19 02/24/20 History [Vitamin D2] albuterol sulfate 2.5 mg INH Q4H PRN #180 ml 06/29/19 02/24/20 Rx furosemide 20 mg tablet 20 mg PO QAM #90 tab 07/07/19 02/24/20 Rx nitroglycerin 0.4 mg sublingual 0.4 mg SL UD PRN #20 tab 09/22/19 02/24/20 Rx tablet albuterol sulfate 90 mcg/actuation 2 puffs INH Q4H PRN #18 gm 09/29/19 02/24/20 Rx aerosol inhaler tiotropium bromide 2.5 2 puffs INH BID gm 09/29/19 02/24/20 History mcg/actuation mist for inhalation isosorbide mononitrate 30 mg 90 mg PO QAM #270 tab 10/01/19 02/24/20 Rx tablet,extended release 24 hr fluticasone furoate 100 1 puffs INH DAILY #3 inhaler 10/28/19 02/24/20 Rx mcg-vilanterol 25 mcg/dose inhalation powder atenolol 50 mg tablet 50 mg PO QAM #90 tab 11/01/19 02/24/20 Rx mometasone 50 mcg/actuation nasal 1 spray INTRANASAL DAILY #17 g 12/28/19 02/24/20 Rx spray amlodipine 10 mg tablet 10 mg PO QAM #90 tab 01/05/20 02/24/20 Rx sitagliptin 25 mg tablet 25 mg PO QAM #90 tab 01/05/20 02/24/20 Rx zolpidem 5 mg tablet 5 mg PO QPM #30 tab 01/07/20 02/24/20 Rx losartan 25 mg tablet 25 mg PO QAM #90 tab 01/20/20 02/24/20 Rx rivaroxaban 15 mg tablet 15 mg PO 1700 #90 tab 01/20/20 02/24/20 Rx simvastatin 20 mg tablet 20 mg PO HS #90 tab 01/20/20 02/24/20 Rx ofloxacin 10 drp OTIC (EAR) BID 10 Days #5 ml 02/11/20 02/24/20 Rx doxycycline hyclate 100 mg PO BID 3 Days #6 cap 02/23/20 02/24/20 Rx Patient History Medical History Atrial fibrillation permanent, now s/p PPM (2016) CAD (coronary artery disease) [place] (1992) CHF (congestive heart failure) follows with [facility] (Dr. Marcos) Chronic kidney disease, stage 3 follows with nephrology ([facility]/Dr. Richard) COPD (chronic obstructive pulmonary disease) 2L HS + occasionally PRN, follows with [facility] COPD with asthma Deep vein thrombosis B/L LE (1967), Diabetes mellitus, type 2 NIDDM Hearing deficit History of kidney cancer s/p L nephrectomy (1997) Hyperlipidemia controlled Hypertension controlled Insomnia Mixed conductive and sensorineural hearing loss of left ear with restricted hearing of right ear Osteoarthritis Osteoporosis Pacemaker Implanted 2017, [employer], last check 09/2019 Pulmonary nodule per records Restless leg syndrome Surgical History History of cardiac cath 10+ years ago, no stents History of cholecystectomy History of colonoscopy History of hip surgery R/L NABEEL History of myringotomy + Left ear tube removal: 06/09/19: LMA#4 atraumatic at [facility] History of nephrectomy left History of vaginal hysterectomy Hx of bilateral cataract extraction Status post placement of cardiac pacemaker 2016 Family History Brother Hypertension Mother Cardiac disorder Sister Lung cancer Aunt Lung cancer Father No problems noted. Unknown Family history of allergies Environmental allergies Denies family history of Ovarian cancer Prostate cancer Myocardial infarction Breast cancer Colorectal cancer Social History Smoking Status: Former smoker Tobacco Type: Cigarettes Age Started Using Tobacco: 26; Age Quit Using Tobacco: 55; packs per day: 1; Years Smoked: 29; Cigarettes Per Day: 20; Number of Years Since Quit: 25; Second Hand Exposure: No; Do You Dip or Chew Tobacco: No; Tobacco Cessation Education Requested by Patient: No Hx Alcohol Use: No Hx Substance Use: No Preferred Language: Vietnamese Communication Ability: Effective Wood Barker Required: No Beliefs That Will Affect Care: None marital status: / Current Living Situation: Family Current Living Situation Comment: With son current occupational status: retired Other Information That Helps Us Care for You: No Feels Safe at Home: Yes Safety Concerns: Feels Safe At This Time Dental Care, Regularly: No Physical Activity Frequency: 1-2 Times per Week Seatbelt Use: always Sunscreen Use: Yes Assistive Devices: Walker Assistive Devices Comment: Has used walker for two days DT feeling uneasy Physical Exam Constitutional: WD/WN, vitals as above Eyes: PERRL, conjunctivae normal, anicteric sclerae ENMT: Nose: + nasal mucous membrane abnormality (There was an epistatic in the right nostril, removed, dark blood with no fr) and + nasal discharge (There was old dark blood but no fresh bleeding) Neck: trachea midline, no thyromegaly Respiratory: normal respiratory effort, lungs clear to auscultation Cardiovascular: RRR, no murmur, no edema Results & Data ([facility]) Vital Signs (Past 12 Hours) Vital Signs Temp Pulse Resp BP Pulse Ox 02/25/20 07:30 36.7 C 60 18 177/72 H 92 02/25/20 02:19 160/60 H (1) Syncope Syncope type: unspecified Qualified Code(s): R55 - Syncope and collapse
--- NOTE | 2020-02-25 14:51 | XCELERA ---
[id number]
--- NOTE | 2020-02-25 15:29 | Hospitalist Progress Note ---
Date of Service February 25, 2020 Assessment & Plan (1) Syncope: Cammy Zhu is an 79 yo female with complex PMHx that includes atrial fibrillation (PPM in 2016, on Xarelto), CAD (DC in 1992), COPD, CKD stage 3, h/o kidney cancer (s/p L nephrectomy 1997), who was admitted to [facility] on for syncope in the context of recent posterior epistaxis. - No COPD exacerbation or acute CHF symptoms - EKG is V-paced with no concerning findings, Troponin negative, TTE with intact systolic function/EF and minimal change from 2018 study, pacer interrogation unremarkable - Suspect due to mild hypovolemia 2/2 recent epistaxis and subsequent decreased PO intake x1 day - Patient reports doing well after soft IVFs without current lightheadedness or dizziness with ambulation - D/c'd IVFs today - continue to monitor today, plan for d/c tomorrow (2) Acute posterior epistaxis: - with Rhino Pocket placement and started on Doxycycline (toxic shock sx ppx) in ED on 02/22 - removed today by ENT - recommends changing nocturnal NC to humidified O2 via oxymask to avoid further episodes of epistaxis - d/c'd Doxycycline - re-started home Xarelto 15 mg PO daily - monitor for epistaxis while hospitalized - monitor CBC daily (3) Atrial fibrillation: - re-started home anti-coagulation as above (4) Acute renal insufficiency: - Cr 1.48 on admission (BUN:Cr 27.5) - resolved: Cr improved to baseline 1.13 after soft IVFs overnight - pre-renal YUMIKO, suspect 2/2 decreased PO intake - d/c'd IVFs today as mentioned above - trend BMP daily (5) Congestive heart failure: - euvolemic on exam today - repeat TTE with stable findings compared to 2018: EF 50-55%, normal systolic size/function, increased RVSP 45mmHg, R-sided dilation with normal function - continue home meds: Losartan, Isosorbide, Lasix, Atenolol - strict I/Os, daily weight, monitor volume status (6) COPD with asthma: - no current SOB or respiratory distress, satting well on RA - continue home regimen: Fluticasone/Vilanterol - nocturnal humidified O2 via Oxymask per ENT recs (7) CKD (chronic kidney disease), stage III: - at baseline - monitor BMP as mentioned above (8) Hypertension: - continue home meds: Amlodipine, Atenolol, Losartan (9) Hyperlipidemia: - continue home Simvastatin FEN/GI: DM2 DVT Prophylaxis: Xarelto Code Status: Full code Disposition: Obs, plan for d/c tomorrow to home (with son's help for care) if medically stable Admission and Anticipated Discharge Date Admission Date: February 24, 2020 Supervising Physician Co-Signing Physician Notes I also saw the patient and confirmed gamez portions of the history and physical exam. She is without complaints this morning. Upon my initial examination, the nasal packing was still in place. Hemoglobin stable at 11 - I suspect she was slightly hemoconcentrated prior to admission, and the decrease in hemoglobin likely due to IV fluids. Creatinine improved to 1.13. Echocardiogram shows ejection fraction 55 to 60%, biatrial enlargement, and elevated right ventricular systolic pressure. Pacemaker interrogation is pending. Plan ENT to see in hospital today Would like to restart Xarelto for one day while she is still inpatient Subjective NAEO. Patient confirmed history surrounding syncope. Denied preceding symptoms of illness, wheezing/cough, increased sputum, orthopnea/PND/AN/LE edema. Reports that she felt more dizzy after recent episode of epistaxis and also had decreased PO intake yesterday due to difficulty eating and drinking with Rhino Pocket in place. Denies current symptoms of fever/chills, chest pain/palpitations, SOB, N/V, abdominal pain. Review of Systems Review of Systems: pertinent positives and negatives mentioned in HPI Physical Exam Constitutional: WD/WN, vitals as above ENMT: Ears: no EAC abnormality and no TM abnormality Respiratory: normal respiratory effort, lungs clear to auscultation Cardiovascular: RRR, no murmur, no edema Gastrointestinal (Abdomen): normal bowel sounds, soft, nontender, no hepatosplenomegaly Skin: no rashes, warm and dry Psychiatric: A+Ox3, euthymic affect Results & Data Results & Data ([facility]) Vital Signs (Past 12 Hours) Vital Signs Temp Pulse Resp BP Pulse Ox 02/25/20 07:30 36.7 C 60 18 177/72 H 92 Resident Activity Tracking Resident Involvement: Resident Care Provided Care Provided: Adult Hospital Medicine (1) CKD (chronic kidney disease), stage III Chronic kidney disease stage 3 subtype: unspecified whether 3a or 3b Qualified Code(s): N18.30 - Chronic kidney disease, stage 3 unspecified (2) Atrial fibrillation Atrial fibrillation type: unspecified Qualified Code(s): I48.91 - Unspecified atrial fibrillation (3) Hyperlipidemia Hyperlipidemia type: unspecified Qualified Code(s): E78.5 - Hyperlipidemia, unspecified (4) Syncope Syncope type: unspecified Qualified Code(s): R55 - Syncope and collapse (5) Hypertension Hypertension type: essential hypertension Qualified Code(s): I10 - Essential (primary) hypertension
[2020-02-25] MEDS ORDERED: RIVAROXABAN 15 MG TAB PO SCH (17:00)
--- NOTE | 2020-02-25 18:12 | Electrocardiogram Report ---
Test Reason : Blood Pressure : / mmHG Vent. Rate : 060 BPM Atrial Rate : 312 BPM P-R Int : 000 ms QRS Dur : 182 ms QT Int : 462 ms P-R-T Axes : 000 -88 096 degrees QTc Int : 462 ms Ventricular-paced rhythm Abnormal ECG When compared with ECG of 08-JUN-2019 14:47, Premature ventricular complexes are no longer Present Vent. rate has decreased BY 24 BPM Confirmed by Dagoberto Novak ([id number]) on 02/25/2020 6:12:02 PM Referred By: REFERRED SELF Confirmed By:Srini Novak
[2020-02-25] MEDS ORDERED: DOCUSATE SODIUM 100 MG CAP PO SCH (21:00)
[2020-02-25] MEDS ORDERED: SIMVASTATIN 20 MG TAB PO SCH (21:00)
[2020-02-26] MEDS: ACETAMINOPHEN 325 MG TAB PO PRN (01:33)
--- NOTE | 2020-02-26 09:56 | Discharge Summary ---
Date of Service February 26, 2020 Admission HPI Per Admitting Provider Cammy Zhu is an 79yo female presenting after a syncopal event at home. She had recent placement of left ear tube for chronic otitis media and hearing loss. Patient had an episode of epistaxis yesterday for which she was seen in the ER. Reports significant blood loss through her right nare. She had a rhino-rocket placed with hemostasis achieved. She was to be seen by ENT tomorrow 02/25/20 which was rescheduled to 02/28/20. She is on Rivaroxaban for history of atrial fibrillation which has been on hold since yesterday. Plan was for rhino-rocket to be removed by ENT. Patient reports dizziness and weakness over the last few days, overall feeling poorly. She was in her home this evening with her son, walked down the [place] then became dizzy with tunnel-vision and had a syncopal event. She did not hit her head. Recalls waking up on the floor with pillows under her head. Denies CP/palpitations/SOB/numbness/weakness preceding or following the event. Currently without complaint. ER Course: NSS x 500mL Admission Exam Per Admitting Provider General: patient resting comfortably, NAD, non-toxic in appearance, AA&O x 4, pleasant Skin: warm, dry, intact, no rashes or lesions HEENT: NC/AT, PERRL, EOMI, anicteric sclera, conjunctiva without injection, external ear normal to inspection and nontender, occlusive device present in right nare, moist mucus membranes, dentition intact, no oropharyngeal lesions, neck supple, trachea midline, no LAD, no thyromegaly, no JVD Heart: +S1/S2, regular, no m/r/g Lungs: equal air entry bilaterally, no rales/rhonchi/wheezes Abd: +BS, soft, NT/ND, no masses/organomegaly/ascites Ext: warm, 2+ pulses in UE/LE bilaterally, no clubbing/cyanosis or edema Neuro: nonfocal, patient AA&O x 4, speech intact, no facial droop, moving all extremities on command with equal strength 5/5 Principal Diagnosis Syncope, epistaxis Discharge Exam Constitutional well developed and well nourished; no acute distress and not ill appearing ENMT external ear and nose normal, oropharynx normal Nose: no nasal mucous membrane abnormality, no nasal discharge, nasal mucous membranes not dry and no epistaxis Respiratory normal respiratory effort, lungs clear to auscultation Cardiovascular Rate/Rhythm: regular rate and regular rhythm Heart Sounds: no murmur Gastrointestinal (Abdomen) normal bowel sounds, soft, nontender, no hepatosplenomegaly Neurologic PERRL, EOMI, accommodation nl, no face palsy, no dysarthria Psychiatric A+Ox3, euthymic affect Discharge Data Allergies Allergy/AdvReac Type Severity Reaction Status Date / Time chlorthalidone Allergy Severe Swelling Verified 02/24/20 20:30 of Lip/Tongue/Throat Penicillins Allergy Severe Swelling Verified 02/24/20 20:30 of Lip/Tongue/Throat MANDEEP Inhibitors Allergy Unknown Verified 02/24/20 20:30 atenolol Allergy Unknown Verified 02/24/20 20:30 trazodone Allergy Unknown Verified 02/24/20 20:30 Consultations 02/24/20 20:48 ED Decision to Admit Stat 02/25/20 11:28 Consult Otolaryngology (Head and Neck) Routine Hospital Course (1) Syncope: Cammy Zhu is an 79 yo female with complex PMHx that includes atrial fibrillation (PPM in 2016, on Xarelto), CAD (PA in 1992), COPD, CKD stage 3, h/o kidney cancer (s/p L nephrectomy 1997), who was admitted to [facility] on 02/25/2020 for syncope in the context of recent posterior epistaxis. Syncope Cardiac workup during hospitalization was unremarkable: EKG was V-paced with no concerning findings, troponin was negative, TTE found intact systolic function/EF and minimal change from 2018 study, pacer interrogation was also unremarkable. Patient's syncope was suspected to be secondary to mild hypovolemia, which was itself suspected to be secondary to recent epistaxis and decreased PO intake. Patient improved symptomatically with soft IVF; lightheadedness and dizziness with ambulation completely resolved and were absent on the day of discharge. IVF were discontinued the day before she was discharged, and she had been maintaining adequate PO intake that day. Epistaxis Patient's epistaxis was suspected to be due to nasal dryness caused by a combination of nasal cannula delivery of nighttime oxygen as well as particularly dry air at home. The bleeding was exacerbated by patient being on xarelto at home; this was held on admission. She was not anemic on admission. Epistaxis was controlled with rhino rockets; she received a few doses of doxycycline for TSS prophylaxis due to the rhino rocket use. The rhino rockets were later removed by Dr. Moura from ENT. She did not experience any further epistaxis during her stay, and her hemoglobin remained stable throughout admissi on. Xarelto was restarted after 2 days without active bleeding, and was continued upon discharge. She was discharged with recommendations for humidified nighttime oxygen, to use an oxymask rather than nasal cannula, and to use a home humidifier. Acute kidney injury, CKD stage 3 Patient's creatinine on admission was found to be 1.48, suspected to be due to low PO intake and epistaxis. After soft IVFs on the day of admission, this improved to 1.13 which is near patient's baseline. This remained stable throughout the rest of her stay until discharge, as monitored by daily BMPs. CHF Patient was mildly hypovolemic on admission, which improved by day 2, at which time she was euvolemic after having received soft IVF overnight. Repeat TTE showed stable findings compared with 2018 (described above). Patient's losartan, isosorbide, lasix, and atenolol were continued during her stay. Her CHF did not otherwise present as symptomatic or as an active concern during her stay. COPD with asthma Patient did not have SOB or respiratory distress on admission, and maintained normal oxygen saturation. Her home regimen of fluticasone/vilanterol was continued during her stay. She received nighttime humidified oxygen via oxymask per ENT recommendations, and was discharged with these recommendations as described above. HTN Patient was normotensive and hemodynamically stable throughout her hospital stayf. Her home dose amlodipine, atenolol, and losartan were continued during her stay and were not adjusted upon discharge. FENGI: DM2 Code status: full code DVT prophylaxis: xarelto at home dose Dispo: discharge today (2) Acute posterior epistaxis: (3) Atrial fibrillation: (4) Acute renal insufficiency: (5) Congestive heart failure: (6) COPD with asthma: (7) CKD (chronic kidney disease), stage III: (8) Hypertension: (9) Hyperlipidemia: - continue home Simvastatin FEN/GI: DM2 DVT Prophylaxis: Xarelto Code Status: Full code Disposition: Obs, plan for d/c tomorrow to home (with son's help for care) if medically stable Total Time Total Time Spent Total Time Spent (In Minutes): see attending documentation Discharge Plan Discharge Items Patient Disposition: Home - Self-Care Reason For Visit: SYNCOPE Discharge Diagnosis: Syncope, epistaxis, acute kidney injury Activity: Resume your previous activity Non-emergency contact: Primary Care Provider Call non-emergency contact if: you have any medication questions and your symptoms worsen Follow-up/Referrals: Swapnil Headley MD [Primary Care Provider] - Diet: Carb Consistent or DM2, Heart Healthy and Low Sodium (2gm) Addtl Attending Provider Instructions: You were admitted for nosebleed (also called epistaxis) and dehydration which led to syncope (another word for fainting) and acute kidney injury. We treated the nosebleed by using a "Rhino Rocket" to stop the bleeding. We also held your home blood thinner (xarelto). With this, we were able to get the bleeding under control, and your kidney function began to improve as we gave you fluids to fix your dehydration. We also gave you some antibiotics to prevent infections that are sometimes associated with using the Rhino Rocket. We discussed the risks and benefits of the blood thinner you are on, and we felt it best to restart the blood thinner after your nosebleed was under control. This medicine reduces your risk of stroke, but is associated with a slightly higher risk of bleeding. Continue taking xarelto 15mg by mouth daily. Continue all your other home medications as prescribed. While you are at risk of having another similar nosebleed, we discussed things you can do to reduce the risk of future nosebleeds: * Purchase a humidifier for home use to bring moisture into the air. Breathing dry air increases your risk of nosebleeds. A humidifier will help your body protect the inside of your nose, which will reduce your risk of nosebleeds. * Your ENT doctor, Dr. Moura, recommends that you use humidified oxygen during sleep. Devices that deliver humidified oxygen during sleep can be purchased from your local medical supply store. * Lastly, we recommend that you use an oxymask, or oxygen face mask, for delivery of your nighttime oxygen (instead of a nasal cannula). The oxygen mask will not dry out your nose as much as the nasal cannula does, and this will reduce the likelihood of future nosebleeds. This can also be purchased from your local medical supply store. You have an appointment to follow-up with your ENT doctor, Dr. Moura, on Friday. Is very important that you attend this appointment. If you have new or worsening symptoms, please call your primary care physician. If you experience uncontrollable bleeding, or any other emergency, immediately call 911 or go to the nearest emergency department. Pending Studies at Discharge: No Stand-Alone Forms: [facility], Smoking Cessation Medications and DC Order Prescriptions: Continued furosemide 20 mg tablet 20 mg PO QAM Qty: 90 RF: 3 isosorbide mononitrate 30 mg tablet extended release 24 hr 90 mg PO QAM Qty: 270 RF: 3 Breo Ellipta 100-25 mcg/dose blister with device 1 puffs INH DAILY Qty: 3 RF: 1 atenolol 50 mg tablet 50 mg PO QAM Qty: 90 RF: 3 Januvia 25 mg tablet 25 mg PO QAM Qty: 90 RF: 3 amlodipine 10 mg tablet 10 mg PO QAM Qty: 90 RF: 3 zolpidem 5 mg tablet 5 mg PO QPM Qty: 30 RF: 5 mometasone 50 mcg/actuation spray,non-aerosol 1 spray intranasal DAILY Qty: 17 RF: 1 simvastatin 20 mg tablet 20 mg PO HS Qty: 90 RF: 3 Xarelto 15 mg tablet 15 mg PO 1700 Qty: 90 RF: 3 losartan 25 mg tablet 25 mg PO QAM Qty: 90 RF: 3 albuterol sulfate [Ventolin HFA] 90 mcg/actuation HFA aerosol inhaler 2 puffs INH Q4H PRN (Reason: shortness of breath or wheezing) Qty: 18 RF: 3 Spiriva Respimat 2.5 mcg/actuation mist 2 puffs INH BID RF: 0 nitroglycerin 0.4 mg tablet, sublingual 0.4 mg SL UD PRN (Reason: chest pain) Qty: 20 RF: 0 (DME) OneTouch Ultra Blue Test Strip strip See Dose Instructions .ROUTE .MEDSUPPLY Qty: 10 RF: 0 cranberry conc-ascorbic acid 4,200-20 mg capsule 1 cap PO DAILY RF: 0 calcium citrate-vitamin D3 250 mg calcium- 200 unit tablet 1 tab PO QAM RF: 0 docusate sodium 100 mg capsule 100 mg PO PM RF: 0 psyllium husk (with sugar) 3.4 gram powder in packet 2 tbs PO QPM PRN (Reason: Constipation) RF: 0 multivitamin tablet 1 tab PO QAM RF: 0 Prolia 60 mg/mL syringe 60 mg SQ Q6MO RF: 0 albuterol sulfate 2.5 mg /3 mL (0.083 %) solution for nebulization 2.5 mg INH Q4H PRN (Reason: shortness of breath or wheezing) Qty: 180 RF: 5 ergocalciferol (vitamin D2) [Vitamin D2] 1,250 mcg (50,000 unit) Capsule 1,250 mcg PO MONTHLY RF: 0 ofloxacin 0.3 % Drops 10 drp OTIC (EAR) BID 10 Days Qty: 5 RF: 8 Discontinued doxycycline hyclate 100 mg capsule 100 mg PO BID 3 Days Qty: 6 RF: 0 Discharge Orders: Discharge Order (Routine); Ordered 02/26/20 Ordered By: Lucho Espinoza Admission Data Admit Date/Time: 02/24/20 23:07 Attending Provider: Huan Cabrera Admit Provider: Merced Patricia Primary Care Provider: Swapnil Headley Other Providers: Merced Patricia ; [facility] ; Leilani Moura Other Interventions: Discharge Summary Assessment (RN) Last Done: 02/26/20 14:34 Supervising Physician Co-Signing Physician Notes I also saw the patient with the resident physician and confirmed gamez portions of the history and physical exam. I agree with the documentation in the resident's note. Upon our exam, she is out of bed. She is feeling much better. Otolaryngology saw the patient yesterday and remove the nasal packing; she did not realize how much discomfort she had on the right side of her face secondary to the packing. Her Xarelto was restarted yesterday and she has had no nasal bleeding. We did discuss what to do should she have a rebleed; she already has a nasal clip as provided on the emergency department when this happened previously. We discussed where to apply pressure; we also discussed returning to the emergency department should she be unable to control the bleeding. Plan Discharge today Discussed blood pressure control; it was little bit higher in the hospital although this may have been due to the hospitalization itself, and the discomfort associated with the nasal packing. She will follow up with otolaryngology on Friday Recommend PCP visit in the next 1 to 2 weeks to recheck blood pressure. We did have a discussion rate regarding her anticoagulation. She does realize that the chronic anticoagulation is for stroke risk reduction; at this point she is comfortable remaining on her anticoagulant, and she realizes the risk of bleeding occluding recurrent epistaxis. At this point it is a trade off she is willing to accept. Resident Activity Tracking Resident Involvement: Resident Care Provided Care Provided: Adult Hospital Medicine
[2020-02-26] MEDS: INSULIN ASPART 100 UNITS/ML 3 ML PEN SC SCH ×2 (10:19→13:20)
[2020-02-26] MEDS: UMECLIDINIUM BROMIDE 62.5MCG/BLISTER 7 PUFFS/INHALER INH SCH (10:21)
[2020-02-26] MEDS: SITagliptin PHOSPHATE 25 MG TAB PO SCH (10:22)
[2020-02-26] MEDS: FLUTICASONE/VILANTEROL 100/25MCG 14 PUFFS/INHALER INH SCH (10:22)
[2020-02-26] MEDS: ATENOLOL 50 MG TABLET PO SCH (10:22)
[2020-02-26] MEDS: amLODIPine BESYLATE 5 MG TAB PO SCH (10:23)
[2020-02-26] MEDS: LOSARTAN POTASSIUM 25 MG TAB PO SCH (10:23)
[2020-02-26] MEDS: FUROSEMIDE 20 MG TAB PO SCH (10:23)
[2020-02-26] MEDS: ISOSORBIDE MONO EXTENDED REL 30 MG TABCR PO SCH (10:23)
== END 2020-02-26 15:44 | disposition home health service (06) ==
LOC: 3N 17:48 → ED 17:48 → SUATTDRO 23:07 → 3N 23:57

== ENCOUNTER 2020-02-27 02:52 | Observation (INO) ==
[~2020-02-27 02:52] MED LIST changes: -AMLO10TA2 PO; -ATEN50TA8 PO; -CALC-342 PO; -CYAN100020 PO; -DOCU1TAB6 PO; -DXY100 PO; -FURO-85 PO; -GFNSR600 PO; -IPRA-64 INH; -ISOS30TA35 PO; -KFL500 PO; -LOSA1TAB PO; -MULT-240 PO; -NTRGSL/4 UT; -OXYC15TA89 PO; -PSYL48.59 PO; +RAPID SEQUENCE INDUCTION BAG ONE; -SIMV20TA2 PO; -SITA25TA PO; -SYMIN160 INH; -ULT/50 PO; -WARF-246 PO
[2020-02-27] MEDS ORDERED: TXA 10% Non-IV Routes 100 MG/ML VIAL ONE (02:53)
--- NOTE | 2020-02-27 03:20 | Emergency Department Note ---
Impression & Plan Acute anterior epistaxis ED Provider Note NAME: SAMI RODGERS AGE: 79 SEX: F ARRIVES VIA: Ambulance INFORMANT: Patient, ems ED PROVIDER(S): Marcella Peralta DO CHIEF COMPLAINT: Nosebleed PLAN: [facility] Good MEDICAL DECISION MAKING: This is a an 79-year-old female patient on Xarelto who presents to the emergency department with an uncontrolled nosebleed. The patient has been seen here recently for this. She was taken off of her Xarelto for a short period of time and evaluated by ENT. She recently had a nasal balloon removed. The patient awoke from sleep tonight with a nose bleeding again from the right side. EMS was called and she had significant blood loss at home. The nosebleed was controlled here in the emergency department initially with TXA soaked gauze but then began to bleed again. A nasal balloon was placed to con trol the bleeding. The patient remained hemodynamically stable. Her H&H remained stable. The patient will be admitted by the [facility] hospitalist for further care and ENT will be consulted. Triage Nursing notes reviewed and agree with them. Additional history obtained from EMS Prior medical records reviewed Vital Signs: reviewed and remarkable for hypertension Differential diagnosis: Epistaxis, anemia, near syncope ER treatment provided: TXA soaked gauze Nasal balloon placed-5.5 cm HPI: 79/F arrives for evaluation of epistaxis. The patient has a history of nosebleeds and is on Xarelto. She states that she awoke from sleep with a heavy nosebleed. She had been here just a couple of days ago with bleeding from her right nares. She had a nasal balloon placed at that time. She states that the balloon was just removed 2 days ago. She had been doing well until tonight when she awoke from sleep with heavy bleeding from the right nares. EMS was called and state that she lost a lot of blood from the nose at home. They had difficulty controlling the bleeding at home and she began to have some airway compromise in route from home here to the hospital. ROS: See above HPI for pertinent positives & negatives. A total of 10 systems reviewed and were otherwise negative. PAST MEDICAL HISTORY:See Below PAST SURGICAL HISTORY:See Below FAMILY HISTORY:See Below SOCIAL HISTORY:See Below HOME MEDICATIONS:See list ALLERGIES:See list VITALS:See Below PHYSICAL EXAMINATION: Nose: Bleeding from the right nares with some clots coming from both the nose and mouth. HEENT: Head - normocephalic and atraumatic Pupils are equal, round, and reactive to light. Extraocular eye muscles are intact, and sclera are anicteric. Mouth -some bright red blood noted in the posterior oropharynx but no clots noted Neck: Supple; no cervical lymphadenopathy appreciated; no JVD Heart: Regular rate and rhythm. There is a normal S1 and S2 with no murmurs, clicks, or gallops appreciated. Lungs: Clear to auscultation bilaterally with no wheezes, rales, or rhonchi. Abdomen: Soft, completely nontender, nondistended, with good bowel sounds. There are no palpable pulsatile masses or hepatosplenomegaly. There is no guarding, rigidity, or rebound noted. Extremities: No evidence of cyanosis, clubbing, or edema. There are easily palpable peripheral pulses. Skin: warm and dry with good turgor and no rashes. ED COURSE: Times/Reassessments: 0255: The patient was evaluated in room A1. An order was placed for continuous cardiac monitoring. Patient was in a normal sinus rhythm The right nares was suctioned with suction tubing. The area of bleeding was identified using the otoscope it was over Kiesselbach's plexus and was significantly anterior. Pressure was held manually and TXA soaked gauze was placed. After more than 30 minutes, the gauze was removed and the bleeding had stopped. Patient was observed but unfortunately the bleeding started again and was quite heavy. At that point a nasal balloon was placed-5.5 cm. The balloon was inflated with 5 cc of air. This gave good control of the bleeding. The case was discussed with Dr. Justice and he will evaluate the patient for further care. He plans to consult ENT. Marcella Peralta DO Past Med/Surg History Medical History Atrial fibrillation permanent, now s/p PPM (2016) CAD (coronary artery disease) [place] (1992) CHF (congestive heart failure) follows with [facility] (Dr. Marcos) Chronic kidney disease, stage 3 follows with nephrology ([facility]/Dr. Richard) COPD (chronic obstructive pulmonary disease) 2L HS + occasionally PRN, follows with [facility] COPD with asthma Deep vein thrombosis B/L LE (1967), Diabetes mellitus, type 2 NIDDM Hearing deficit History of kidney cancer s/p L nephrectomy (1997) Hyperlipidemia controlled Hypertension controlled Insomnia Mixed conductive and sensorineural hearing loss of left ear with restricted hearing of right ear Osteoarthritis Osteoporosis Pacemaker Implanted 2017, [employer], last check 09/2019 Pulmonary nodule per records Restless leg syndrome Surgical History History of cardiac cath 10+ years ago, no stents History of cholecystectomy History of colonoscopy History of hip surgery R/L NABEEL History of myringotomy + Left ear tube removal: 06/09/19: LMA#4 atraumatic at [facility] History of nephrectomy left History of vaginal hysterectomy Hx of bilateral cataract extraction Status post placement of cardiac pacemaker 2016 Family History Brother Hypertension Mother Cardiac disorder Sister Lung cancer Aunt Lung cancer Father No problems noted. Unknown Family history of allergies Environmental allergies Denies family history of Ovarian cancer Prostate cancer Myocardial infarction Breast cancer Colorectal cancer Social History Smoking Status: Never smoker Tobacco Type: Cigarettes Age Started Using Tobacco: 26; Age Quit Using Tobacco: 55; packs per day: 1; Years Smoked: 29; Cigarettes Per Day: 20; Number of Years Since Quit: 25; Second Hand Exposure: No; Hx Alcohol Use: No Hx Substance Use: No Preferred Language: Australian Communication Ability: Effective Rest Room Matron Required: No Beliefs That Will Affect Care: None marital status: / Current Living Situation: Family Current Living Situation Comment: With son current occupational status: retired Other Information That Helps Us Care for You: No Feels Safe at Home: Yes Safety Concerns: Feels Safe At This Time Dental Care, Regularly: No Physical Activity Frequency: 1-2 Times per Week Seatbelt Use: always Sunscreen Use: Yes Assistive Devices: None and Oxygen - at Night Allergies Allergies Allergy/AdvReac Type Severity Reaction Status Date / Time chlorthalidone Allergy Severe Swelling Verified 02/27/20 03:12 of Lip/Tongue/Throat Penicillins Allergy Severe Swelling Verified 02/27/20 03:12 of Lip/Tongue/Throat MANDEEP Inhibitors Allergy Unknown Unknown Verified 02/27/20 03:12 atenolol Allergy Unknown Unknown Verified 02/27/20 03:12 trazodone Allergy Unknown Unknown Verified 02/27/20 03:12 Home Meds Home Medications Medication Instructions Recorded Confirmed blood sugar diagnostic #10 ea 11/07/18 01/20/20 calcium citrate 250 mg 1 tab PO QAM tab 11/07/18 02/27/20 calcium-vitamin D3 5 mcg (200 unit) tablet cranberry concentrate-ascorbic 1 cap PO DAILY cap 11/07/18 02/27/20 acid 4,200 mg-20 mg capsule docusate sodium 100 mg capsule 100 mg PO PM 11/07/18 02/27/20 multivitamin 1 tab PO QAM 11/07/18 02/27/20 psyllium husk (with sugar) 3.4 2 tbs PO QPM PRN ea 11/07/18 02/27/20 gram oral powder packet denosumab 60 mg/mL subcutaneous 60 mg SQ Q6MO ml 03/02/19 02/27/20 syringe ergocalciferol (vitamin D2) 1,250 mcg PO MONTHLY 06/03/19 02/27/20 [Vitamin D2] tiotropium bromide 2.5 2 puffs INH BID gm 09/29/19 02/27/20 mcg/actuation mist for inhalation Xarelto 15 mg PO QDD 02/27/20 02/27/20 Previous Rx's Medication Instructions Recorded albuterol sulfate 2.5 mg INH Q4H PRN #180 ml 06/29/19 furosemide 20 mg tablet 20 mg PO QAM #90 tab 07/07/19 nitroglycerin 0.4 mg sublingual 0.4 mg SL UD PRN #20 tab 09/22/19 tablet albuterol sulfate 90 mcg/actuation 2 puffs INH Q4H PRN #18 gm 09/29/19 aerosol inhaler isosorbide mononitrate 30 mg 90 mg PO QAM #270 tab 10/01/19 tablet,extended release 24 hr fluticasone furoate 100 1 puffs INH DAILY #3 inhaler 10/28/19 mcg-vilanterol 25 mcg/dose inhalation powder atenolol 50 mg tablet 50 mg PO QAM #90 tab 11/01/19 mometasone 50 mcg/actuation nasal 1 spray INTRANASAL DAILY #17 g 12/28/19 spray amlodipine 10 mg tablet 10 mg PO QAM #90 tab 01/05/20 sitagliptin 25 mg tablet 25 mg PO QAM #90 tab 01/05/20 zolpidem 5 mg tablet 5 mg PO QPM #30 tab 01/07/20 losartan 25 mg tablet 25 mg PO QAM #90 tab 01/20/20 simvastatin 20 mg tablet 20 mg PO HS #90 tab 01/20/20 ofloxacin 10 drp OTIC (EAR) BID 10 Days #5 ml 02/11/20 Results & Data (ED) Vital Signs Vital Signs - 24 hr 02/27/20 02:57 02/27/20 03:00 02/27/20 03:04 Pulse Rate [Bilateral] 67 66 Pulse Rhythm [Bilateral] Regular Regular Pulse Strength [Bilateral] Normal Normal Respiratory Rate 24 20 Respiratory Effort / Characteristics Non-Labored Spontaneous Respiratory Depth Normal Normal Respiratory Pattern Regular Blood Pressure [Left Arm] 139/78 132/102 H Blood Pressure Mean [Left Arm] 98 112 Blood Pressure Position [Left Arm] Sitting Sitting Pulse Oximetry 97 96 Oxygen Delivery Method Room Air Room Air Sepsis Recent Fever Within 48 Hours No Sepsis New/Unexplained Change in Mental Status No Sepsis Action Taken by Nursing No Action Required 02/27/20 03:16 02/27/20 03:45 02/27/20 04:45 Pulse Rate [Bilateral] 62 62 65 Pulse Rhythm [Bilateral] Regular Regular Regular Pulse Strength [Bilateral] Normal Normal Normal Respiratory Rate 18 21 18 Respiratory Effort / Characteristics Non-Labored Spontaneous Non-Labored Spontaneous Non-Labored Spontaneous Respiratory Depth Normal Normal Normal Respiratory Pattern Regular Blood Pressure [Left Arm] 124/50 L 135/70 154/58 H Blood Pressure Mean [Left Arm] 74 91 90 Blood Pressure Position [Left Arm] Sitting Sitting Sitting Pulse Oximetry 97 98 95 Oxygen Delivery Method Room Air Room Air Room Air Sepsis Recent Fever Within 48 Hours Sepsis New/Unexplained Change in Mental Status Sepsis Action Taken by Nursing Laboratory Data Result diagrams: 02/27/20 03:11 Lab Results 02/27/20 Range/Units 03:11 WBC 7.81 (4.8-10.8) K/uL RBC 3.77 L (4.2-5.4) M/uL Hgb 11.1 L (12.0-16.0) g/dL Hct 33.0 L (37-47) % MCV 87.5 (80-100) fL MCH 29.4 (25-34) pg MCHC 33.6 (32-36) g/dL RDW Std Deviation 44.2 (36.4-46.3) fL RDW Coeff of Stephane 13.9 (11.5-14.5) % Plt Count 173 (130-400) K/uL MPV 10.7 H (7.4-10.4) fL Immature Gran % (Auto) 1.0 % Neut % (Auto) 48.5 % Lymph % (Auto) 31.4 % [place] % (Auto) 10.4 % Eos % (Auto) 8.1 % Baso % (Auto) 0.6 % Neut # (Auto) 3.79 (1.4-6.5) K/uL Lymph # (Auto) 2.45 (1.2-3.4) K/uL [place] # (Auto) 0.81 H (0.11-0.59) K/uL Eos # (Auto) 0.63 H (0-0.5) K/uL Baso # (Auto) 0.05 (0-0.2) K/uL Immature Gran # (Auto) 0.08 H (0.00-0.02) K/uL Administered Medications Discontinued Medications Acetaminophen (Ofirmev) 1,000 mg in 100 mls @ 400 mls/hr IV NOW STA Stop: 02/27/20 03:55 Last Infusion: 02/27/20 04:09 Dose: 0 mls/hr Documented by: [id number] Admin: 02/27/20 03:51 Dose: 400 mls/hr Documented by: [id number] Miscellaneous (Rapid Sequence Induction Bag) Confirm Administered Dose 1 ea .ROUTE .STK-MED ONE Stop: 02/27/20 02:51 Last Admin: 02/27/20 04:57 Dose: Not Given Documented by: [id number] Tranexamic Acid (Txa 10% Non-Iv Routes 100 Mg/Ml Vial) Confirm Administered Dose 1,000 mg .ROUTE .STK-MED ONE Stop: 02/27/20 02:54 Last Admin: 02/27/20 03:32 Dose: 1,000 mg Documented by: [id number] Discharge Plan Visit Data Chief Complaint: Nose Bleed (Major) Stated Complaint: NOSEBLEED ED Provider: Botti,Marcella A Discharge Problem: Acute anterior epistaxis Patient Disposition: Admitted As Inpatient Discharge Instructions Interventions: ED Discharge Assessment Last Done: 02/27/20 05:27
[2020-02-27 03:23] LABS: Basophils # (auto) 0.05 K/uL (0-0.2); Basophils % (auto) 0.6 %; Eosinophils # (auto) 0.63 K/uL (0-0.5); Eosinophils % (auto) 8.1 %; Hemoglobin 11.1 g/dL (12.0-16.0); Immature Granulocytes # (auto) 0.08 K/uL (0.00-0.02); Lymphocytes # (auto) 2.45 K/uL (1.2-3.4); Lymphocytes % (auto) 31.4 %; Mean Corpuscular Hemoglobin 29.4 pg (25-34); Mean Corpuscular Hgb Conc 33.6 g/dL (32-36); Mean Corpuscular Volume 87.5 fL (80-100); Mean Platelet Volume 10.7 fL (7.4-10.4); Monocytes # (auto) 0.81 K/uL (0.11-0.59); Monocytes % (auto) 10.4 %; Neutrophils # (auto) 3.79 K/uL (1.4-6.5); Neutrophils % (auto) 48.5 %; Platelet Count 173 K/uL (130-400); RDW Coefficient of Variation 13.9 % (11.5-14.5); RDW Standard Deviation 44.2 fL (36.4-46.3); Red Blood Count 3.77 M/uL (4.2-5.4); White Blood Count 7.81 K/uL (4.8-10.8)
[2020-02-27] MEDS ORDERED: ACETAMINOPHEN 1,000 MG/100 ML VIAL IV STA (03:41)
--- NOTE | 2020-02-27 05:13 | History & Physical Report ---
Date of Service February 27, 2020 Assessment & Plan (1) Acute anterior epistaxis: Cammy Zhu is a 79-year-old female with a past medical history of A. fib on Xarelto, CKD, hypertension, type 2 diabetes, CHF, right renal artery stenosis, and hard of hearing who presents after waking up with epistaxis. She has a recent hospital admission with discharged 1 day ago for epistaxis from her right nare. Right epistaxis Rhino Rocket placed in ED, by report thought to be an anterior bleed Patient had a right nare Covid test 2 weeks prior, may have sustained nasal trauma with additional bleeding on Xarelto Hemoglobin on admission 11.1 Trend CBC every 6 hours Keep Rhino Rocket in place Patient known to Dr. Moura, ENT consult placed S/p 1 unit TXA Admit to telemetry for monitoring. No signs of respiratory compromise at this time A. fib Continue amlodipine 10 mg every morning, atenolol 50 mg every morning Hold anticoagulation in the setting of acute bleed Regular rate and rhythm on admission Risks/harms of ongoing anticoagulation discussed, will need further reevaluati on based on clinical course History of CKD BMP pending If YUMIKO suspect due to prerenal, hold nephrotoxins. Losartan held at this time both for potential prerenal depletion and pending ENT eval. 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 Losartan held as above. Hyperlipidemia Continue simvastatin FEN GI: N.p.o. pending ENT eval. NSS+Kcl 80 cc/h DVT prophylaxis: SCDs, hold pharmacal prophylaxis in the setting of bleed CODE STATUS: Full code Disposition: PCU (2) COPD with asthma: (3) Chronic anticoagulation: (4) Hypertension: (5) DM (diabetes mellitus): (6) Hyperlipidemia: History of Present Illness Chief Complaint: Epistaxis Primary Care Provider: Dagoberto Headley MD Cammy Zhu is a 79-year-old female with a past medical history of A. fib on Xarelto, CKD, hypertension, type 2 diabetes, CHF, right renal artery stenosis, and hard of hearing who presents after waking up with epistaxis. She has a recent hospital admission with discharged 1 day ago for epistaxis from her right nare. Cammy reports that she woke up this morning at around 1:30 AM in a puddle of blood on the pillow and had a large volume bleed from her right nostril. This is the same nostril she was bleeding from during her admission 1 day ago. She reports that she had left ear surgery with the tube placement 2 weeks ago and had a Covid test in that nare at the time. Her first episode of epistaxis required admission on 02/25/2020, she had a Rhino Rocket placed which was left in and then removed by ENT and patient was subsequently discharged on 02/25. She reports she continued to take her Xarelto after returning home. With this episode she has had fatigue, but no syncope. She denies shortness of breath, cough, chest pain, chest pressure, or dizziness but she feels slightly lightheaded. She is not having difficulty breathing. She did not fall, and has not hit her head prior to presentation. She was brought in by ambulance. In e ED she was hemodynamically stable, received tranexamic acid and Tylenol for discomfort with a Rhino Rocket being placed in the right nare. Medical history: Reviewed Medications: Reviewed of note has continued to take Xarelto. Surgical history: Reviewed Allergies: Reviewed, allergic to penicillins, MANDEEP inhibitor's, and chlorthalidone. Family history: Noncontributory CODE STATUS: Full code, but in the event that she will return with a baseline function not able to eat/care for herself she would not want sustained life support including long-term ventilator or feeding tube use. Allergies Allergy/AdvReac Type Severity Reaction Status Date / Time chlorthalidone Allergy Severe Swelling Verified 02/27/20 03:12 of Lip/Tongue/Throat Penicillins Allergy Severe Swelling Verified 02/27/20 03:12 of Lip/Tongue/Throat MANDEEP Inhibitors Allergy Unknown Unknown Verified 02/27/20 03:12 atenolol Allergy Unknown Unknown Verified 02/27/20 03:12 trazodone Allergy Unknown Unknown Verified 02/27/20 03:12 Home Medications Home Medications Medication Instructions Recorded Confirmed Type blood sugar diagnostic #10 ea 11/07/18 01/20/20 History calcium citrate 250 mg 1 tab PO QAM tab 11/07/18 02/27/20 History calcium-vitamin D3 5 mcg (200 unit) tablet cranberry concentrate-ascorbic 1 cap PO DAILY cap 11/07/18 02/27/20 History acid 4,200 mg-20 mg capsule docusate sodium 100 mg capsule 100 mg PO PM 11/07/18 02/27/20 History multivitamin 1 tab PO QAM 11/07/18 02/27/20 History psyllium husk (with sugar) 3.4 2 tbs PO QPM PRN ea 11/07/18 02/27/20 History gram oral powder packet denosumab 60 mg/mL subcutaneous 60 mg SQ Q6MO ml 03/02/19 02/27/20 History syringe ergocalciferol (vitamin D2) 1,250 mcg PO MONTHLY 06/03/19 02/27/20 History [Vitamin D2] albuterol sulfate 2.5 mg INH Q4H PRN #180 ml 06/29/19 02/27/20 Rx furosemide 20 mg tablet 20 mg PO QAM #90 tab 07/07/19 02/27/20 Rx nitroglycerin 0.4 mg sublingual 0.4 mg SL UD PRN #20 tab 09/22/19 02/27/20 Rx tablet albuterol sulfate 90 mcg/actuation 2 puffs INH Q4H PRN #18 gm 09/29/19 02/27/20 Rx aerosol inhaler tiotropium bromide 2.5 2 puffs INH BID gm 09/29/19 02/27/20 History mcg/actuation mist for inhalation isosorbide mononitrate 30 mg 90 mg PO QAM #270 tab 10/01/19 02/27/20 Rx tablet,extended release 24 hr fluticasone furoate 100 1 puffs INH DAILY #3 inhaler 10/28/19 02/27/20 Rx mcg-vilanterol 25 mcg/dose inhalation powder atenolol 50 mg tablet 50 mg PO QAM #90 tab 11/01/19 02/27/20 Rx mometasone 50 mcg/actuation nasal 1 spray INTRANASAL DAILY #17 g 12/28/19 02/27/20 Rx spray amlodipine 10 mg tablet 10 mg PO QAM #90 tab 01/05/20 02/27/20 Rx sitagliptin 25 mg tablet 25 mg PO QAM #90 tab 01/05/20 02/27/20 Rx zolpidem 5 mg tablet 5 mg PO QPM #30 tab 01/07/20 02/27/20 Rx losartan 25 mg tablet 25 mg PO QAM #90 tab 01/20/20 02/27/20 Rx simvastatin 20 mg tablet 20 mg PO HS #90 tab 01/20/20 02/27/20 Rx ofloxacin 10 drp OTIC (EAR) BID 10 Days #5 ml 02/11/20 02/27/20 Rx Xarelto 15 mg PO QDD 02/27/20 02/27/20 History Past Med/Surg History Medical History Acute posterior epistaxis Atrial fibrillation permanent, now s/p PPM (2016) CAD (coronary artery disease) [place] (1992) CHF (congestive heart failure) follows with [facility] (Dr. Marcos) Chronic kidney disease, stage 3 follows with nephrology ([facility]/Dr. Richard) COPD (chronic obstructive pulmonary disease) 2L HS + occasionally PRN, follows with [facility] COPD with asthma Deep vein thrombosis B/L LE (1967), Diabetes mellitus, type 2 NIDDM Hearing deficit History of kidney cancer s/p L nephrectomy (1997) Hyperlipidemia controlled Hypertension controlled Insomnia Mixed conductive and sensorineural hearing loss of left ear with restricted hearing of right ear Osteoarthritis Osteoporosis Pacemaker Implanted 2016, [employer], last check 09/2019 Pulmonary nodule per records Restless leg syndrome Surgical History History of cardiac cath 10+ years ago, no stents History of cholecystectomy History of colonoscopy History of hip surgery R/L NABEEL History of myringotomy + Left ear tube removal: 06/09/19: LMA#4 atraumatic at [facility] History of nephrectomy left History of vaginal hysterectomy Hx of bilateral cataract extraction Status post placement of cardiac pacemaker 2016 Family History Brother Hypertension Mother Cardiac disorder Sister Lung cancer Aunt Lung cancer Father No problems noted. Unknown Family history of allergies Environmental allergies Denies family history of Ovarian cancer Prostate cancer Myocardial infarction Breast cancer Colorectal cancer Social History Smoking Status: Never smoker Tobacco Type: Cigarettes Age Started Using Tobacco: 26; Age Quit Using Tobacco: 55; packs per day: 1; Years Smoked: 29; Cigarettes Per Day: 20; Number of Years Since Quit: 25; Second Hand Exposure: No; Hx Alcohol Use: No Hx Substance Use: No Preferred Language: Ukrainian Communication Ability: Effective Conveyor Line Battery Charger Required: No Beliefs That Will Affect Care: None marital status: / Current Living Situation: Family Current Living Situation Comment: With son current occupational status: retired Other Information That Helps Us Care for You: No Feels Safe at Home: Yes Safety Concerns: Feels Safe At This Time Dental Care, Regularly: No Physical Activity Frequency: 1-2 Times per Week Seatbelt Use: always Sunscreen Use: Yes Assistive Devices: None Review of Systems Review of Systems: All systems reviewed & are unremarkable except as noted in HPI & below Physical Exam Physical Exam: General: A&Ox3. NAD. Cooperative. HEENT: Right nare with Rhino Rocket in place, fresh blood around nare. Posterior oropharynx without blood on exam. No uvular deviation. Nipples equal and reactive to light and accommodation. Visual acuity grossly intact, hearing grossly intact. Pulm: CTAB A&P. -wheezes, -rales, -rhonchi. Symmetrical chest rise. No increase work of breathing. No respiratory distress. Cardiac: RRR, systolic murmur present. Radial pulses intact and symmetrical. Abdominal: Nontender, nondistended, soft. BS present. Extremities: Bread Wrapper strength and ankle dorsiflexion intact with symmetrical 5/5 strength. Left ankle edema at baseline per patient. Results & Data Results & Data ([facility]) Vital Signs (Past 12 Hours) Vital Signs Pulse Resp BP Pulse Ox 02/27/20 04:45 65 18 154/58 H 95 02/27/20 03:45 62 21 135/70 98 02/27/20 03:16 62 18 124/50 L 97 02/27/20 03:00 66 20 132/102 H 96 02/27/20 02:57 67 24 139/78 97 Code Status & VTE Plan VTE Prophylaxis Plan VTE Prophylaxis will be ordered: Yes Supervising Physician Co-Signing Physician Notes Attending addendum: I have physically seen this patient, have supervised the medical residents activities, and agree with the H&P unless as otherwise noted. Assessment and Plan: Recurrent epistaxis- Rhino Rocket placed in ED on right side. Hold Xarelto H&H every 6 hours Status post 1 unit TXA Consult ENT Dr. Moura Atrial fibrillation/CAD/hypertension- Continue amlodipine, atenolol, isosorbide mononitrate. Hold losartan Hold Xarelto as noted above. Diabetes mellitus type 2- Placed on Accu-Cheks before meals and at bedtime with NovoLog coverage per scale COPD/asthma- Continue usual inhalers. Continue nasal cannula 2 L O2 at nighttime as at home. Remaining orders and notations as noted Resident Activity Tracking Resident Involvement: Resident Care Provided Care Provided: Adult Hospital Medicine (1) DM (diabetes mellitus) Diabetes mellitus complication status: without complication Diabetes mellitus prison insulin use: without buttermaker use Diabetes mellitus type: type 2 Qualified Code(s): E11.9 - Type 2 diabetes mellitus without complications (2) Hyperlipidemia Hyperlipidemia type: unspecified Qualified Code(s): E78.5 - Hyperlipidemia, unspecified (3) Hypertension Hypertension type: essential hypertension Qualified Code(s): I10 - Essential (primary) hypertension
[2020-02-27] MEDS ORDERED: GLUCAGON FOR INJ 1 MG VIAL SQ PRN (05:56)
[2020-02-27] MEDS ORDERED: CARBOHYDRATES FOR HYPOGLYCEMIA PO PRN ×2 (05:56→10:45)
[2020-02-27] MEDS ORDERED: DEXTROSE 50% 50 ML SYRINGE IV PRN ×2 (05:56→10:45)
[2020-02-27] MEDS ORDERED: GLUCOSE 10 TABS/TUBE PO PRN ×2 (05:56→10:45)
[2020-02-27] MEDS ORDERED: GLUCOSE 40% GEL 15 GM TUBE PO PRN ×2 (05:56→10:45)
[2020-02-27] MEDS ORDERED: NSS + 20MEQ KCL 20 MEQ/1,000 ML BAG IV SCH (07:00)
--- NOTE | 2020-02-27 07:45 | ENT Consultation ---
Date of Consultation February 27, 2020 Assessment & Plan (1) Acute anterior epistaxis: (2) Acute posterior epistaxis: Endoscopic cautery and packing History of Present Illness Reason for Consultation: Epistaxis Attending Physician: George Murphy MD History of Present Illness Cammy joe was admitted at 3 AM this morning for severe right-sided epistaxis Rhino Rocket is in place Allergies Allergy/AdvReac Type Severity Reaction Status Date / Time chlorthalidone Allergy Severe Swelling Verified 02/27/20 03:12 of Lip/Tongue/Throat Penicillins Allergy Severe Swelling Verified 02/27/20 03:12 of Lip/Tongue/Throat MANDEEP Inhibitors Allergy Unknown Unknown Verified 02/27/20 03:12 atenolol Allergy Unknown Unknown Verified 02/27/20 03:12 trazodone Allergy Unknown Unknown Verified 02/27/20 03:12 Home Medications Home Medications Medication Instructions Recorded Confirmed Type blood sugar diagnostic #10 ea 11/07/18 01/20/20 History calcium citrate 250 mg 1 tab PO QAM tab 11/07/18 02/27/20 History calcium-vitamin D3 5 mcg (200 unit) tablet cranberry concentrate-ascorbic 1 cap PO DAILY cap 11/07/18 02/27/20 History acid 4,200 mg-20 mg capsule docusate sodium 100 mg capsule 100 mg PO PM 11/07/18 02/27/20 History multivitamin 1 tab PO QAM 11/07/18 02/27/20 History psyllium husk (with sugar) 3.4 2 tbs PO QPM PRN ea 11/07/18 02/27/20 History gram oral powder packet denosumab 60 mg/mL subcutaneous 60 mg SQ Q6MO ml 03/02/19 02/27/20 History syringe ergocalciferol (vitamin D2) 1,250 mcg PO MONTHLY 06/03/19 02/27/20 History [Vitamin D2] albuterol sulfate 2.5 mg INH Q4H PRN #180 ml 06/29/19 02/27/20 Rx furosemide 20 mg tablet 20 mg PO QAM #90 tab 07/07/19 02/27/20 Rx nitroglycerin 0.4 mg sublingual 0.4 mg SL UD PRN #20 tab 09/22/19 02/27/20 Rx tablet albuterol sulfate 90 mcg/actuation 2 puffs INH Q4H PRN #18 gm 09/29/19 02/27/20 Rx aerosol inhaler tiotropium bromide 2.5 2 puffs INH BID gm 09/29/19 02/27/20 History mcg/actuation mist for inhalation isosorbide mononitrate 30 mg 90 mg PO QAM #270 tab 10/01/19 02/27/20 Rx tablet,extended release 24 hr fluticasone furoate 100 1 puffs INH DAILY #3 inhaler 10/28/19 02/27/20 Rx mcg-vilanterol 25 mcg/dose inhalation powder atenolol 50 mg tablet 50 mg PO QAM #90 tab 11/01/19 02/27/20 Rx mometasone 50 mcg/actuation nasal 1 spray INTRANASAL DAILY #17 g 12/28/19 02/27/20 Rx spray amlodipine 10 mg tablet 10 mg PO QAM #90 tab 01/05/20 02/27/20 Rx sitagliptin 25 mg tablet 25 mg PO QAM #90 tab 01/05/20 02/27/20 Rx zolpidem 5 mg tablet 5 mg PO QPM #30 tab 01/07/20 02/27/20 Rx losartan 25 mg tablet 25 mg PO QAM #90 tab 01/20/20 02/27/20 Rx simvastatin 20 mg tablet 20 mg PO HS #90 tab 01/20/20 02/27/20 Rx ofloxacin 10 drp OTIC (EAR) BID 10 Days #5 ml 02/11/20 02/27/20 Rx Xarelto 15 mg PO QDD 02/27/20 02/27/20 History Patient History Medical History Acute posterior epistaxis Atrial fibrillation permanent, now s/p PPM (2016) CAD (coronary artery disease) [place] (1992) CHF (congestive heart failure) follows with [facility] (Dr. Marcos) Chronic kidney disease, stage 3 follows with nephrology ([facility]/Dr. Richard) COPD (chronic obstructive pulmonary disease) 2L HS + occasionally PRN, follows with [facility] COPD with asthma Deep vein thrombosis B/L LE (1967), Diabetes mellitus, type 2 NIDDM Hearing deficit History of kidney cancer s/p L nephrectomy (1997) Hyperlipidemia controlled Hypertension controlled Insomnia Mixed conductive and sensorineural hearing loss of left ear with restricted hearing of right ear Osteoarthritis Osteoporosis Pacemaker Implanted 2016, [employer], last check 09/2019 Pulmonary nodule per records Restless leg syndrome Surgical History History of cardiac cath 10+ years ago, no stents History of cholecystectomy History of colonoscopy History of hip surgery R/L NABEEL History of myringotomy + Left ear tube removal: 06/09/19: LMA#4 atraumatic at [facility] History of nephrectomy left History of vaginal hysterectomy Hx of bilateral cataract extraction Status post placement of cardiac pacemaker 2016 Family History Brother Hypertension Mother Cardiac disorder Sister Lung cancer Aunt Lung cancer Father No problems noted. Unknown Family history of allergies Environmental allergies Denies family history of Ovarian cancer Prostate cancer Myocardial infarction Breast cancer Colorectal cancer Social History Smoking Status: Never smoker Tobacco Type: Cigarettes Age Started Using Tobacco: 26; Age Quit Using Tobacco: 55; packs per day: 1; Years Smoked: 29; Cigarettes Per Day: 20; Number of Years Since Quit: 25; Second Hand Exposure: No; Hx Alcohol Use: No Hx Substance Use: No Preferred Language: Vietnamese Communication Ability: Effective Hand Stripper Required: No Beliefs That Will Affect Care: None marital status: / Current Living Situation: Family Current Living Situation Comment: With son current occupational status: retired Other Information That Helps Us Care for You: No Feels Safe at Home: Yes Safety Concerns: Feels Safe At This Time Dental Care, Regularly: No Physical Activity Frequency: 1-2 Times per Week Seatbelt Use: always Sunscreen Use: Yes Assistive Devices: None and Oxygen - at Night Physical Exam Constitutional: WD/WN, vitals as above Eyes: PERRL, conjunctivae normal, anicteric sclerae ENMT: Nose: + nasal mucous membrane abnormality (Packing in the right nostril) Neck: trachea midline, no thyromegaly Respiratory: normal respiratory effort, lungs clear to auscultation Cardiovascular: Rate/Rhythm: + irregularly irregular Results & Data ([facility]) Vital Signs (Past 12 Hours) Vital Signs Temp Pulse Pulse Resp BP BP Pulse Ox 02/27/20 06:05 63 02/27/20 05:58 36.8 C 64 18 180/65 H 98 11/08/20 05:27 64 18 152/44 H 96 02/27/20 04:45 65 18 154/58 H 95 02/27/20 03:45 62 21 135/70 98 02/27/20 03:16 62 18 124/50 L 97 02/27/20 03:00 66 20 132/102 H 96 02/27/20 02:57 67 24 139/78 97
[2020-02-27] MEDS ORDERED: WATER, STERILE 10 ML, TETRACAINE 0.4 GM TOP SCH (08:00)
[2020-02-27] MEDS: ISOSORBIDE MONO EXTENDED REL 30 MG TABCR PO SCH (08:01)
[2020-02-27] MEDS: ATENOLOL 50 MG TABLET PO SCH (08:01)
[2020-02-27] MEDS: amLODIPine BESYLATE 5 MG TAB PO SCH (08:01)
[2020-02-27] MEDS: INSULIN GLARGINE SOLOSTAR 100 UNITS/ML 3 ML PEN SC SCH ×2 (08:02→20:30)
[2020-02-27] MEDS: UMECLIDINIUM BROMIDE 62.5MCG/BLISTER 7 PUFFS/INHALER INH SCH (08:02)
[2020-02-27] MEDS: INSULIN ASPART 100 UNITS/ML 3 ML PEN SC SCH ×4 (08:03→20:30)
[2020-02-27] MEDS: ACETAMINOPHEN 325 MG TAB PO PRN ×2 (08:05→19:40)
[2020-02-27] MEDS ORDERED: GELATIN SPONGE SZ 100 ONE (08:58)
[2020-02-27] MEDS ORDERED: ATROPINE SULFATE 0.1 MG/ML 10ML SYR IV PRN (08:59)
[2020-02-27] MEDS ORDERED: ePHEDrine sulfate 50 MG/ML AMP IV PRN (08:59)
[2020-02-27] MEDS ORDERED: fentaNYL citrate 100 MCG/2 ML VIAL IV PRN (08:59)
[2020-02-27] MEDS ORDERED: FLUTICASONE/VILANTEROL 100/25MCG 14 PUFFS/INHALER INH SCH (09:00)
--- NOTE | 2020-02-27 09:03 | Anesthesiology Consultation ---
Date of Service February 27, 2020 Assessment & Plan (1) Encounter for pre-operative examination: Chart Review Chart Review: Acceptable Risk for Surgery Consults Requested none ASA ASA4 Proposed Anesthesia Anesthesia Type: MAC Risk / Benefits Reviewed With: PT / POA / Parent / Guardian, Accepts Plan and Informed Consent Obtained History Surgery Operation Date: 02/27/20 08:30 Proposed Procedures p Nasal Bleed Control - Leilani Moura MD Height/Weight Height: 5 ft 5 in Weight: 91 kg Allergies Allergy/AdvReac Type Severity Reaction Status Date / Time chlorthalidone Allergy Severe Swelling Verified 02/27/20 03:12 of Lip/Tongue/Throat Penicillins Allergy Severe Swelling Verified 02/27/20 03:12 of Lip/Tongue/Throat MANDEEP Inhibitors Allergy Unknown Unknown Verified 02/27/20 03:12 atenolol Allergy Unknown Unknown Verified 02/27/20 03:12 trazodone Allergy Unknown Unknown Verified 02/27/20 03:12 Medications Home Medications Medication Instructions Recorded Confirmed Last Taken blood sugar diagnostic #10 ea 11/07/18 01/20/20 Unknown calcium citrate 250 mg 1 tab PO QAM tab 11/07/18 02/27/20 02/26/20 calcium-vitamin D3 5 mcg (200 unit) tablet cranberry concentrate-ascorbic 1 cap PO DAILY cap 11/07/18 02/27/20 02/26/20 acid 4,200 mg-20 mg capsule docusate sodium 100 mg capsule 100 mg PO PM 11/07/18 02/27/20 02/26/20 multivitamin 1 tab PO QAM 11/07/18 02/27/20 02/26/20 psyllium husk (with sugar) 3.4 2 tbs PO QPM PRN ea 11/07/18 02/27/20 02/10/20 22:30 gram oral powder packet denosumab 60 mg/mL subcutaneous 60 mg SQ Q6MO ml 03/02/19 02/27/20 Unknown syringe ergocalciferol (vitamin D2) 1,250 mcg PO MONTHLY 06/03/19 02/27/20 02/07/20 [Vitamin D2] albuterol sulfate 2.5 mg INH Q4H PRN #180 ml 06/29/19 02/27/20 Unknown furosemide 20 mg tablet 20 mg PO QAM #90 tab 07/07/19 02/27/20 02/26/20 nitroglycerin 0.4 mg sublingual 0.4 mg SL UD PRN #20 tab 09/22/19 02/27/20 Unknown tablet albuterol sulfate 90 mcg/actuation 2 puffs INH Q4H PRN #18 gm 09/29/19 02/27/20 Unknown aerosol inhaler tiotropium bromide 2.5 2 puffs INH BID gm 09/29/19 02/27/20 02/26/20 mcg/actuation mist for inhalation isosorbide mononitrate 30 mg 90 mg PO QAM #270 tab 10/01/19 02/27/20 02/26/20 tablet,extended release 24 hr fluticasone furoate 100 1 puffs INH DAILY #3 inhaler 10/28/19 02/27/20 02/26/20 mcg-vilanterol 25 mcg/dose inhalation powder atenolol 50 mg tablet 50 mg PO QAM #90 tab 11/01/19 02/27/20 02/26/20 mometasone 50 mcg/actuation nasal 1 spray INTRANASAL DAILY #17 g 12/28/19 02/27/20 02/26/20 spray amlodipine 10 mg tablet 10 mg PO QAM #90 tab 01/05/20 02/27/20 02/26/20 sitagliptin 25 mg tablet 25 mg PO QAM #90 tab 01/05/20 02/27/20 02/26/20 zolpidem 5 mg tablet 5 mg PO QPM #30 tab 01/07/20 02/27/20 02/26/20 losartan 25 mg tablet 25 mg PO QAM #90 tab 01/20/20 02/27/20 02/26/20 simvastatin 20 mg tablet 20 mg PO HS #90 tab 01/20/20 02/27/20 02/26/20 ofloxacin 10 drp OTIC (EAR) BID 10 Days #5 ml 02/11/20 02/27/20 02/26/20 Xarelto 15 mg PO QDD 02/27/20 02/27/20 02/26/20 Active Medications Generic Name Dose Route Start Last Admin Trade Name Freq PRN Reason Stop Dose Admin Acetaminophen 650 mg 02/27/20 05:56 02/27/20 08:05 Acetaminophen 325 Mg Tab PO 03/28/20 05:55 650 mg Q4H PRN Administration Pain or Fever Amlodipine Besylate 10 mg 02/27/20 09:00 02/27/20 08:01 Amlodipine Besylate 5 Mg Tab PO 03/28/20 08:59 10 mg QAM LUIS Administration Atenolol 50 mg 02/27/20 09:00 02/27/20 08:01 Atenolol 50 Mg Tablet PO 03/28/20 08:59 50 mg QAM LUIS Administration Fluticasone/Vilanterol 1 puffs 02/27/20 09:00 02/27/20 08:02 Fluticasone/Vilanterol 100/25mcg 14 Puffs/Inhaler INH 03/28/20 08:59 1 puffs DAILY LUIS Administration Potassium Chloride/Sodium Chloride 20 meq in 1,000 mls @ 80 mls/hr 02/27/20 07:00 02/27/20 07:37 Normal Saline W/20 Meq Kcl IV 03/28/20 06:59 80 mls/hr .[id number] LUIS Administration Insulin Aspart 0 units 02/27/20 07:30 02/27/20 08:03 Insulin Aspart 100 Units/Ml 3 Ml Pen SC 03/28/20 07:29 1 units ACHS LUIS Administration Insulin Glargine 8 units 02/27/20 09:00 02/27/20 08:02 Insulin Glargine Solostar 100 Units/Ml 3 Ml Pen SC 03/28/20 08:59 8 units BID LUIS Administration Isosorbide Mononitrate 90 mg 02/27/20 09:00 02/27/20 08:01 Isosorbide [place] Extended Rel 30 Mg Tabcr PO 03/28/20 08:59 90 mg QAM LUIS Administration Umeclidinium [place] 1 puffs 02/27/20 09:00 02/27/20 08:02 Umeclidinium [place] 62.5mcg/Blister 7 Puffs/Inhaler INH 03/28/20 08:59 1 puffs DAILY LUIS Administration NPO Date Last Intake of Fluids: 02/27/20 Time Last Intake of Fluids: 00:00 Date Last Intake of Solids: 02/27/20 Time Last Intake of Solids: 00:00 Past Medical History Medical History Acute posterior epistaxis Atrial fibrillation permanent, now s/p PPM (2017) CAD (coronary artery disease) [place] (1992) CHF (congestive heart failure) follows with [facility] (Dr. Marcos) Chronic kidney disease, stage 3 follows with nephrology ([facility]/Dr. Richard) COPD (chronic obstructive pulmonary disease) 2L HS + occasionally PRN, follows with [facility] COPD with asthma Deep vein thrombosis B/L LE (1967), Diabetes mellitus, type 2 NIDDM Hearing deficit History of kidney cancer s/p L nephrectomy (1997) Hyperlipidemia controlled Hypertension controlled Insomnia Mixed conductive and sensorineural hearing loss of left ear with restricted hearing of right ear Osteoarthritis Osteoporosis Pacemaker Implanted 2017, [employer], last check 09/2019 Pulmonary nodule per records Restless leg syndrome Exercise / Class Metabolic Activity III < 4 Walking/Shop/Light housework Past Family History Family History Brother Hypertension Mother Cardiac disorder Sister Lung cancer Aunt Lung cancer Father No problems noted. Unknown Family history of allergies Environmental allergies Denies family history of Ovarian cancer Prostate cancer Myocardial infarction Breast cancer Colorectal cancer Past Surgical History Surgical History History of cardiac cath 10+ years ago, no stents History of cholecystectomy History of colonoscopy History of hip surgery R/L NABEEL History of myringotomy + Left ear tube removal: 06/09/19: LMA#4 atraumatic at [facility] History of nephrectomy left History of vaginal hysterectomy Hx of bilateral cataract extraction Status post placement of cardiac pacemaker 2016 Past Anesthesia History No Hx of Anesthesia Complications and No Family Hx of Anesthesia Complications History of PONV No Hx of PONV and No Hx of Motion Sickness Social History Smoking Status: Never smoker tobacco type: cigarettes Smoking cigarettes per day: 20 Hx Alcohol Use: No Hx Substance Use: No substance use type: does not use Physical Exam Vital Signs Last Vital Signs Temp 97.7 F 02/27/20 08:07 Pulse 63 02/27/20 08:07 Resp 19 02/27/20 08:07 BP 155/64 H 02/27/20 08:07 Pulse Ox 95 02/27/20 08:07 ENMT Mouth: no dentition abnormality Thyromental Distance: > or= 3.5 Finger Breadths Mallampati Class: II Neck normal visual inspection Respiratory normal respiratory effort Auscultation: lungs clear to auscultation bilaterally Cardiovascular Rate/Rhythm: regular rate and regular rhythm Testing Laboratory Results 02/27/20 03:11 02/27/20 08:00 Electrocardiogram Date: 02/24/20 Ventricular-paced rhythm, rate 60 bpm Abnormal ECG When compared with ECG of 08-JUN-2019 14:47, Premature ventricular complexes are no longer Present Vent. rate has decreased BY 24 BPM Confirmed by Dagoberto Novak ([id number]) on 02/25/2020 6:12:02 PM Echocardiogram Date: 02/25/20 Moderate concentric LVH LV systolic function is normal There are regional wall motion abnormalities LA is severely dilated RA is mod - severely dilated Mild MR RVSP is elevated at 40-50mmHg Compared to study from 2018, minimal change
[2020-02-27 09:04] LABS: BUN Creatinine Ratio 30.6 (10-20); Calcium 8.8 mg/dl (8.5-10.1); Creatinine Clr Calc Pharmacy 33.9 ml/min; Est GFR (Non-African American) 33.7; Potassium 4.1 mmol/L (3.5-5.1)
[2020-02-27] MEDS ORDERED: MIDAZOLAM HCL 1 MG/ML 2ML VIAL IV ONE (09:07)
[2020-02-27] MEDS ORDERED: fentaNYL citrate 100 MCG/2 ML VIAL IV ONE (09:07)
[2020-02-27 09:11] LABS: INR 1.3 (0.9-1.1); Partial Thromboplastin Ratio 1.2; Partial Thromboplastin Time 34.3 Seconds (21.0-31.0); Prothrombin Time 13.1 Seconds (9.0-12.0)
[2020-02-27] MEDS ORDERED: EpINEphrine HCL INJ 1 MG/ML 1ML SYRINGE ONE (09:20)
[2020-02-27] MEDS ORDERED: FLOSEAL HEMOSTATIC MATRIX 5ML TOP ONE (09:35)
--- NOTE | 2020-02-27 09:52 | Operative Report ---
PG Post Operative Report Pre & Post Diagnosis Operation Date: 02/27/20 08:30 Pre-Op Diagnosis: EPISTAXIS Post-Op Diagnosis: EPISTAXIS I identified the patient and participated in the time-out.: Yes Procedure Operation Date: 02/27/20 08:30 Actual Procedures p Nasal Bleed Control, endoscopic cautery and posterior packing (Not Applicable) - Leilani Moura MD Surgeon Leilani Moura MD Technical Customer Support Specialist None Estimated Blood Loss 15 Findings Consistent with Post-Op Diagnosis Specimens None Anesthesia Type MAC Complications none Disposition Accompanied Patient To Recovery: Yes Disposition: Recovery Room Indications Recurrent epistaxis on Xarelto Description of Procedure She was brought to the operating room, properly identified, prepped and draped in usual sterile manner after sedation. The nose was anesthetized using topical cottonoids with a solution of 4 cc 4% tetracaine mixed with 1 cc of epinephrine. Injection was not needed. The right nostril was visualized with the endoscope and the bleeder was found very posteriorly at the posterior septum and then this was cauterized using the suction cautery after removing multiple clots. Smaller bleeders along the anterior septum and well along the inferior border of the middle turbinate were also cauterized. Posterior packing was started with Gelfoam at the choanae and then 5 cc of FloSeal over the bleeding site and then another strip of Gelfoam anteriorly. She tolerated procedure well and was taken recovery area in satisfactory condition. I attest to the content of the Intraoperative Record and any orders documented therein. Any exceptions are noted below.
--- NOTE | 2020-02-27 10:26 | Anesthesiology Progress Note ---
Date of Service February 27, 2020 Anesthesia Post Procedure Vital Signs Vital Signs: Temp Pulse Pulse Pulse Resp BP BP 02/27/20 10:17 97.3 F L 60 17 02/27/20 10:05 61 18 02/27/20 09:58 97.3 F L 72 16 02/27/20 08:07 97.7 F 63 19 155/64 H 02/27/20 06:05 63 02/27/20 05:58 98.2 F 64 18 180/65 H 02/27/20 05:27 64 18 152/44 H 02/27/20 04:45 65 18 154/58 H 02/27/20 03:45 62 21 135/70 02/27/20 03:16 62 18 124/50 L 02/27/20 03:00 66 20 132/102 H 02/27/20 02:57 67 24 139/78 BP Pulse Ox 02/27/20 10:17 127/82 94 02/27/20 10:05 129/53 L 95 02/27/20 09:58 135/40 L 94 02/27/20 08:07 95 02/27/20 06:05 02/27/20 05:58 98 02/27/20 05:27 96 02/27/20 04:45 95 02/27/20 03:45 98 02/27/20 03:16 97 02/27/20 03:00 96 02/27/20 02:57 97 Pain Intensity Head: Pain Intensity: 7 Transfer of Care Handoff Completed per policy Notes Mental Status: alert / awake / arousable and participated in evaluation Patient Amnestic to Procedure: Yes Nausea / Vomiting: adequately controlled Pain: adequately controlled Airway Patency, RR, SpO2: stable & adequate BP & HR: stable & adequate Hydration State: stable & adequate Anesthetic Complications: no major complications apparent and Pt Satisfied with anesthetic care
[2020-02-27] MEDS ORDERED: GLUCAGON FOR INJ 1 MG VIAL IM PRN (10:45)
--- NOTE | 2020-02-27 15:09 | Hospitalist Progress Note ---
Date of Service February 27, 2020 Assessment & Plan (1) Acute anterior epistaxis: Cammy Zhu is a 79-year-old female with a past medical history of A. fib on Xarelto, CKD stage 3, hypertension, type 2 diabetes, CHF, right renal artery stenosis, and hard of hearing who presents after waking up with right- sided epistaxis. She has a recent hospital admission with discharge 1 day ago for right-sided epistaxis. Right epistaxis - s/p OR on 02/26 for cauterization and packing of R nare by ENT - Hemoglobin on admission 11.1; stable from previous hospitalization - Hold home Xarelto given several episodes of epistaxis in the last several days - patient has follow up scheduled with ENT as outpatient Atrial Fibrillation - Hold anticoagulation as mentioned above YUMIKO - Cr 1.45 with ratio >20:1 (baseline 1.1-1.2) - suspect pre-renal injury 2/2 dehydration - light fluids NSS@80cc/hr - hold home Losartan/Lasix - trend BMP CAD - continue home atenolol, amlodipine, imdur, simvastatin Type 2 diabetes mellitus - weight-based SSI COPD with history of asthma - Continue inhalers - Patient has baseline 2 L nightly requirement, Oxymask oxygen as needed goal greater than 88% Hypertension Beta-aman, calcium channel aman as above. Losartan/lasix held as above. Hyperlipidemia Continue simvastatin as above FEN GI: Heart Healthy, DM2 DVT prophylaxis: SCDs, held Xarelto 2/2 acute bleed CODE STATUS: Full code Disposition: PCU with tele, tentative discharge tomorrow if medically stable (2) COPD with asthma: (3) Chronic anticoagulation: (4) Hypertension: (5) DM (diabetes mellitus): (6) Hyperlipidemia: Admission and Anticipated Discharge Date Admission Date: February 27, 2020 Supervising Physician Co-Signing Physician Notes I also saw the patient and confirmed gamez portions of the history and physical examination. I agree with the impression and plan as noted in the resident documentation. Mrs. Zhu was discharged yesterday after her nasal packing was removed. We had restarted her Xarelto in the hospital for 24 hours without evidence of re bleeding, and she was discharged with ENT follow up on Friday. Unfortunately, she had another episode of bleeding early this morning. ENT saw her again and took her to the OR for endoscopic cautery and packing. She really has no complaints other than the pressure from the nasal packing. We again talked about the risks benefits of anticoagulation. Hemodynamically stable. Recurrent epistaxis in setting of chronic anticoagulation Observe overnight CBC in AM Hold anticoagulation Subjective NAEO. Went to OR this morning for cauterization and packing for R epistaxis. Reports that she was discharged yesterday and used her Oxymask for nocturnal oxygen as instructed but woke up last night with blood on her shirt from nosebleed. Decided to come in for eval/management. Denies fever/chills, chest pain/palpitations, SOB/wheezing/cough, N/V, abdominal pain. Review of Systems Review of Systems: Pertinent positives and negatives mentioned in HPI Physical Exam Physical Exam: Constitutional: WD/WN, vitals as above Respiratory: normal respiratory effort, lungs clear to auscultation Cardiovascular: RRR, no murmur, no edema Gastrointestinal (Abdomen): normal bowel sounds, soft, nontender, no he patosplenomegaly Skin: no rashes, warm and dry Psychiatric: A+Ox3, euthymic affect Results & Data Results & Data ([facility]) Vital Signs (Past 12 Hours) Vital Signs Temp Pulse Pulse Pulse Resp BP BP 02/27/20 14:48 62 02/27/20 11:24 36.5 C 60 20 02/27/20 11:06 62 18 152/57 H 02/27/20 10:42 60 18 131/79 02/27/20 10:20 61 18 155/62 H 02/27/20 10:17 36.3 C L 60 17 02/27/20 10:05 61 18 02/27/20 09:58 36.3 C L 72 16 02/27/20 08:07 36.5 C 63 19 155/64 H 02/27/20 06:05 63 02/27/20 05:58 36.8 C 64 18 180/65 H 02/27/20 05:27 64 18 152/44 H 02/27/20 04:45 65 18 154/58 H 02/27/20 03:45 62 21 135/70 02/27/20 03:16 62 18 124/50 L BP Pulse Ox 02/27/20 14:48 02/27/20 11:24 148/72 H 100 02/27/20 11:06 100 02/27/20 10:42 99 11/08/20 10:20 99 02/27/20 10:17 127/82 94 02/27/20 10:05 129/53 L 95 02/27/20 09:58 135/40 L 94 02/27/20 08:07 95 02/27/20 06:05 02/27/20 05:58 98 02/27/20 05:27 96 02/27/20 04:45 95 02/27/20 03:45 98 02/27/20 03:16 97 Resident Activity Tracking Resident Involvement: Resident Care Provided Care Provided: Adult Hospital Medicine (1) DM (diabetes mellitus) Diabetes mellitus complication status: without complication Diabetes mellitus intermediate insulin use: without intermediate card tender use Diabetes mellitus type: type 2 Qualified Code(s): E11.9 - Type 2 diabetes mellitus without complications (2) Hyperlipidemia Hyperlipidemia type: unspecified Qualified Code(s): E78.5 - Hyperlipidemia, unspecified (3) Hypertension Hypertension type: essential hypertension Qualified Code(s): I10 - Essential (primary) hypertension
[2020-02-27] MEDS ORDERED: ALBUT/IPRATROP 3MG/0.5MG NEB 3 ML VIAL NEB PRN (16:41)
[2020-02-27] MEDS: SODIUM CHLORIDE 0.9% 1000ML 1,000 ML IV SCH (17:09)
[2020-02-27] MEDS ORDERED: SIMVASTATIN 20 MG TAB PO SCH (21:00)
--- NOTE | 2020-02-28 01:19 | Billing Data ---
Date of Service February 28, 2020 Coding Level of Care Code 58814 OBS Care - Level 3
[2020-02-28] MEDS: SODIUM CHLORIDE 0.9% 1000ML 1,000 ML IV SCH (06:17)
--- NOTE | 2020-02-28 07:07 | Discharge Summary ---
Date of Service February 28, 2020 Admission HPI Per Admitting Provider Cammy Zhu is a 79-year-old female with a past medical history of A. fib on Xarelto, CKD, hypertension, type 2 diabetes, CHF, right renal artery stenosis, and hard of hearing who presents after waking up with epistaxis. She has a recent hospital admission with discharged 1 day ago for epistaxis from her right nare. Cammy reports that she woke up this morning at around 1:30 AM in a puddle of blood on the pillow and had a large volume bleed from her right nostril. This is the same nostril she was bleeding from during her admission 1 day ago. She reports that she had left ear surgery with the tube placement 2 weeks ago and had a Covid test in that nare at the time. Her first episode of epistaxis required admission on 02/25/2020, she had a Rhino Rocket placed which was left in and then removed by ENT and patient was subsequently discharged on 02/25. She reports she continued to take her Xarelto after returning home. With this episode she has had fatigue, but no syncope. She denies shortness of breath, cough, chest pain, chest pressure, or dizziness but she feels slightly lightheaded. She is not having difficulty breathing. She did not fall, and has not hit her head prior to presentation. She was brought in by ambulance. In the ED she was hemodynamically stable, received tranexamic acid and Tylenol for discomfort with a Rhino Rocket being placed in the right nare. Medical history: Reviewed Medications: Reviewed of note has continued to take Xarelto. Surgical history: Reviewed Allergies: Reviewed, allergic to penicillins, MANDEEP inhibitor's, and chlorthalidone. Family history: Noncontributory CODE STATUS: Full code, but in the event that she will return with a baseline function not able to eat/care for herself she would not want sustained life support including long-term ventilator or feeding tube use. Admission Exam Per Admitting Provider General: A&Ox3. NAD. Cooperative. HEENT: Right nare with Rhino Rocket in place, fresh blood around nare. Posterior oropharynx without blood on exam. No uvular deviation. Nipples equal and reactive to light and accommodation. Visual acuity grossly intact, hearing grossly intact. Pulm: CTAB A&P. -wheezes, -rales, -rhonchi. Symmetrical chest rise. No increase work of breathing. No respiratory distress. Cardiac: RRR, systolic murmur present. Radial pulses intact and symmetrical. Abdominal: Nontender, nondistended, soft. BS present. Extremities: Lamp Stack Developer strength and ankle dorsiflexion intact with symmetrical 5/5 strength. Left ankle edema at baseline per patient. Principal Diagnosis Right Epistaxis Discharge Exam Constitutional: WD/WN, vitals as above Respiratory: normal respiratory effort, lungs clear to auscultation Cardiovascular: RRR, no murmur, no edema Gastrointestinal (Abdomen): normal bowel sounds, soft, nontender, no hepatosplenomegaly Skin: no rashes, warm and dry Psychiatric: A+Ox3, euthymic affect Discharge Data Allergies Allergy/AdvReac Type Severity Reaction Status Date / Time chlorthalidone Allergy Severe Swelling Verified 02/27/20 03:12 of Lip/Tongue/Throat Penicillins Allergy Severe Swelling Verified 02/27/20 03:12 of Lip/Tongue/Throat MANDEEP Inhibitors Allergy Unknown Unknown Verified 02/27/20 03:12 atenolol Allergy Unknown Unknown Verified 02/27/20 03:12 trazodone Allergy Unknown Unknown Verified 02/27/20 03:12 Consultations 02/27/20 04:11 ED Decision to Admit Stat 02/27/20 05:56 Consult Otolaryngology (Head and Neck) Routine Procedures Performed Operation Date: 02/27/20 08:30 Actual Procedures p Nasal Bleed Control(Not Applicable) - Leilani Moura MD Hospital Course (1) Acute anterior epistaxis: Cammy Zhu is a 79-year-old female with a past medical history of A. fib on Xarelto, CKD stage 3, hypertension, type 2 diabetes, CHF, right renal artery stenosis, and hard of hearing who was admitted to [facility] on 02/27/2020 after waking up with right-sided epistaxis. She has a recent hospital admission with discharge 1 day ago for right-sided epistaxis. Did well in the hospital without further active bleeding events and discharged in good, stable condition on 02/28/2020 Right epistaxis - s/p OR on 02/26 for cauterization and packing of R nare by ENT - Hemoglobin on admission 11.1; stable from previous hospitalization - No further epistaxis or other signs of active bleeding during hospitalization - Remained hemodynamically stable and otherwise asymptomatic - Xarelto held on admission: continue to hold for 24 hours after discharge given several episodes of epistaxis in the last several days - continue to use Oxymask rather than NC for nocturnal oxygen - patient has follow up scheduled with ENT and Cardiology as outpatient Atrial Fibrillation - Hold anticoagulation for 24 hours after discharge as mentioned above - CHADS-VASc score of 7 - 15.7% risk of stroke/TIA/Embolism --> high risk and needs to stay on anticoagulation, hence decision to hold Xarelto for ONLY 24 hours - follow-up scheduled with Cardiology YUMIKO, resolved - Cr 1.45 with ratio >20:1 (baseline 1.1-1.2) - suspect pre-renal injury 2/2 dehydration - Cr improved to 1.23 with light fluids NSS@80cc/hr CAD - continue home atenolol, amlodipine, imdur, simvastatin Type 2 diabetes mellitus - continue home medications COPD with history of asthma - Continue inhalers - Patient has baseline 2 L nightly requirement, Oxymask oxygen as needed goal greater than 88% Hypertension - Continue home medications Hyperlipidemia Continue simvastatin (2) COPD with asthma: (3) Chronic anticoagulation: (4) Hypertension: (5) DM (diabetes mellitus): (6) Hyperlipidemia: Total Time Total Time Spent Total Time Spent (In Minutes): <30 minutes Total Time Includes: Examination of the Patient, Discharge Planning and Medication Reconciliation Discharge Plan Discharge Items Patient Disposition: Home - Self-Care Reason For Visit: EPISTAXIS Discharge Diagnosis: Right epistaxis Activity: Per Instructions section Non-emergency contact: Primary Care Provider and Specialist Call non-emergency contact if: you have any medication questions, your symptoms worsen and you have a fever Follow-up/Referrals: Swapnil Headley MD [Primary Care Provider] - 03/06/20 11:30 am (APPOINTME NT IS WITH HOUSTON CAMACHO FOR DR. HEADLEY) Diet: Carb Consistent or DM2 and Heart Healthy Addtl Attending Provider Instructions: You were admitted to [facility] on 02/27/2020 for a right-sided nose bleed. ENT was consulted, since you had recently been in the hospital for the same problem several days ago. They took you to the Operating Room to cauterize the bleeding spots in your right nostril and they packed the nostril as well. You were also found to have mildly decreased kidney function due to dehydration so we started you on IV fluids while you were here - your kidney function corrected with the IV fluids. You were stable and did well during this short hospitalization. You will be discharged in good, stable condition on 02/28/2020. 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 You should wait until tomorrow to re- start your Xarelto blood-thinner medication. You should continue to take all of your other medications as prescribed. You should continue to use the oxygen face mask, rather than the nasal cannula, for your nightly home oxygen, as this will help to keep your nostrils from getting dry and getting another nosebleed. You should also follow up with your PCP. Pending Studies at Discharge: No Stand-Alone Forms: My [facility], Smoking Cessation Medications and DC Order Prescriptions: Continued furosemide 20 mg tablet 20 mg PO QAM Qty: 90 RF: 3 isosorbide mononitrate 30 mg tablet extended release 24 hr 90 mg PO QAM Qty: 270 RF: 3 Breo Ellipta 100-25 mcg/dose blister with device 1 puffs INH DAILY Qty: 3 RF: 1 atenolol 50 mg tablet 50 mg PO QAM Qty: 90 RF: 3 Januvia 25 mg tablet 25 mg PO QAM Qty: 90 RF: 3 amlodipine 10 mg tablet 10 mg PO QAM Qty: 90 RF: 3 zolpidem 5 mg tablet 5 mg PO QPM Qty: 30 RF: 5 mometasone 50 mcg/actuation spray,non-aerosol 1 spray intranasal DAILY Qty: 17 RF: 1 simvastatin 20 mg tablet 20 mg PO HS Qty: 90 RF: 3 losartan 25 mg tablet 25 mg PO QAM Qty: 90 RF: 3 albuterol sulfate [Ventolin HFA] 90 mcg/actuation HFA aerosol inhaler 2 puffs INH Q4H PRN (Reason: shortness of breath or wheezing) Qty: 18 RF: 3 Spiriva Respimat 2.5 mcg/actuation mist 2 puffs INH BID RF: 0 nitroglycerin 0.4 mg tablet, sublingual 0.4 mg SL UD PRN (Reason: chest pain) Qty: 20 RF: 0 (DME) [employer] Ultra Blue Test Strip strip See Dose Instructions .ROUTE .MEDSUPPLY Qty: 10 RF: 0 cranberry conc-ascorbic acid 4,200-20 mg capsule 1 cap PO DAILY RF: 0 calcium citrate-vitamin D3 250 mg calcium- 200 unit tablet 1 tab PO QAM RF: 0 docusate sodium 100 mg capsule 100 mg PO PM RF: 0 psyllium husk (with sugar) 3.4 gram powder in packet 2 tbs PO QPM PRN (Reason: Constipation) RF: 0 multivitamin tablet 1 tab PO QAM RF: 0 Prolia 60 mg/mL syringe 60 mg SQ Q6MO RF: 0 albuterol sulfate 2.5 mg /3 mL (0.083 %) solution for nebulization 2.5 mg INH Q4H PRN (Reason: shortness of breath or wheezing) Qty: 180 RF: 5 Xarelto 15 mg tablet 15 mg PO QDD RF: 0 ergocalciferol (vitamin D2) [Vitamin D2] 1,250 mcg (50,000 unit) Capsule 1,250 mcg PO MONTHLY RF: 0 ofloxacin 0.3 % Drops 10 drp OTIC (EAR) BID 10 Days Qty: 5 RF: 8 Discharge Orders: Discharge Order (Routine); Ordered 02/28/20 Ordered By: Juliocesar Contreras Admission Data Admit Date/Time: 02/27/20 05:00 Attending Provider: Mckay Avery Admit Provider: Glenn Ortiz Primary Care Provider: Swapnil Headley Other Providers: George Murphy ; Leilani Moura ; Huan Cabrera Other Interventions: Discharge Summary Assessment (RN) Last Done: 02/28/20 12:00 Supervising Physician Co-Signing Physician Notes I personally examined the patient and verified all gamez points of history and exam, discussed case, and agree with decision making with Dr Contreras. feeling better feeling up to going home. understands the delicate risk/benefit balance between protecting against future nosebleeds and protecting against afib related strokes. ok w resuming blood thinners and following closely vitals noted nad heent nc at mmm breathing unlabored no accessory muscles good effort skin no rashes no pallor or icterus neuro no focal deficits epistaxis - now resolved. amplified by necessary anticoagulation for afib - calculates to a high risk for CHADS-Vasc so really need to resume anticoagulation as soon as possible - since cauterized this time and bleeding appears to have resolved - will dc home today, have resume anticoaguation tomorrow. she understands this risk benefit balance. otherwise as above Resident Activity Tracking Resident Involvement: Resident Care Provided Care Provided: Adult Hospital Medicine
[2020-02-28 07:32] LABS: Basophils # (auto) 0.04 K/uL (0-0.2); Basophils % (auto) 0.6 %; Eosinophils # (auto) 0.53 K/uL (0-0.5); Eosinophils % (auto) 7.9 %; Hematocrit (blood only) 31.2 % (37-47); Hemoglobin 10.1 g/dL (12.0-16.0); Immature Granulocytes # (auto) 0.03 K/uL (0.00-0.02); Immature Granulocytes % (auto) 0.4 %; Lymphocytes # (auto) 1.76 K/uL (1.2-3.4); Lymphocytes % (auto) 26.3 %; Mean Corpuscular Hgb Conc 32.4 g/dL (32-36); Mean Corpuscular Volume 89.7 fL (80-100); Mean Platelet Volume 10.8 fL (7.4-10.4); Monocytes # (auto) 0.66 K/uL (0.11-0.59); Monocytes % (auto) 9.9 %; Neutrophils # (auto) 3.67 K/uL (1.4-6.5); Neutrophils % (auto) 54.9 %; Platelet Count 174 K/uL (130-400); RDW Coefficient of Variation 14.2 % (11.5-14.5); RDW Standard Deviation 46.3 fL (36.4-46.3); Red Blood Count 3.48 M/uL (4.2-5.4); White Blood Count 6.69 K/uL (4.8-10.8)
[2020-02-28 07:45] LABS: Partial Thromboplastin Ratio 0.8; Partial Thromboplastin Time 21.2 Seconds (21.0-31.0)
[2020-02-28] MEDS: INSULIN ASPART 100 UNITS/ML 3 ML PEN SC SCH ×2 (08:01→12:18)
[2020-02-28] MEDS: UMECLIDINIUM BROMIDE 62.5MCG/BLISTER 7 PUFFS/INHALER INH SCH (08:03)
[2020-02-28] MEDS: amLODIPine BESYLATE 5 MG TAB PO SCH (08:03)
[2020-02-28] MEDS: ATENOLOL 50 MG TABLET PO SCH (08:03)
[2020-02-28] MEDS: ISOSORBIDE MONO EXTENDED REL 30 MG TABCR PO SCH (08:03)
[2020-02-28] MEDS: INSULIN GLARGINE SOLOSTAR 100 UNITS/ML 3 ML PEN SC SCH (08:04)
[2020-02-28 08:13] LABS: BUN Creatinine Ratio 24.2 (10-20); Calcium 8.6 mg/dl (8.5-10.1); Creatinine Clr Calc Pharmacy 39.1 ml/min; Est GFR (African American) 47.6; Est GFR (Non-African American) 41.1
[2020-02-28] MEDS ORDERED: SODIUM CHLORIDE 0.65% NA SOLN 45 ML (OCEAN) PRN (08:24)
--- NOTE | 2020-02-28 08:28 | Ears,Nose,Throat Progress Note ---
Date of Service February 28, 2020 Assessment & Plan (1) Acute posterior epistaxis: Packing in place in right nostril with no further bleeding. Start saline nose spray. Follow-up in my office after seeing her critical care unit nurse next month. Admission and Anticipated Discharge Date Admission Date: February 27, 2020 Subjective No further bleeding congested on the right side Physical Exam Constitutional: WD/WN, vitals as above Eyes: PERRL, conjunctivae normal, anicteric sclerae ENMT: Nose: + nasal mucous membrane abnormality and + nasal discharge (Packing in the right nostril, no bleeding) Neck: trachea midline, no thyromegaly Results & Data ([facility]) Vital Signs (Past 12 Hours) Vital Signs Temp Pulse Pulse Resp BP BP Pulse Ox 02/28/20 07:19 36.4 C L 60 18 168/61 H 98 02/28/20 04:15 36.6 C 59 L 20 150/49 H 100 02/28/20 01:50 36.5 C 60 20 149/61 H 97 PG Care Time/CCT Total # of Minutes Spent Total Time Spent with Patient: Total time spent is greater than 50% in coordination of care (as documented) at patient's floor/unit and/or counseling patient: Coding Level of Care Code 27138 Subseq Hosp Care Lvl 2 Diagnoses Acute posterior epistaxis R04.0
[2020-02-28] MEDS ORDERED: FLUTICASONE/VILANTEROL 100/25MCG 14 PUFFS/INHALER INH SCH (09:00)
--- NOTE | 2020-02-28 17:10 | Billing Data ---
Date of Service February 28, 2020 Coding Level of Care Code 05377 OBS Care - Discharge
== END 2020-02-28 14:30 | disposition home or self-care (01) ==
LOC: 2E 02:52 → ED 02:52 → SUATTDRO 05:00 → 2E 05:27

== ENCOUNTER 2021-06-24 10:07 | Observation (INO) ==
[2021-06-24 10:32] LABS: Basophils # (auto) 0.04 K/uL (0-0.2); Basophils % (auto) 0.5 %; Eosinophils # (auto) 0.23 K/uL (0-0.5); Eosinophils % (auto) 2.9 %; Hematocrit (blood only) 40.4 % (37-47); Hemoglobin 13.9 g/dL (12.0-16.0); Immature Granulocytes # (auto) 0.02 K/uL (0.00-0.02); Immature Granulocytes % (auto) 0.3 %; Lymphocytes % (auto) 15.4 %; Mean Corpuscular Hemoglobin 30.9 pg (25-34); Mean Corpuscular Hgb Conc 34.4 g/dL (32-36); Mean Corpuscular Volume 89.8 fL (80-100); Mean Platelet Volume 10.1 fL (7.4-10.4); Monocytes # (auto) 0.52 K/uL (0.11-0.59); Monocytes % (auto) 6.7 %; Neutrophils # (auto) 5.79 K/uL (1.4-6.5); Neutrophils % (auto) 74.2 %; Platelet Count 201 K/uL (130-400); RDW Coefficient of Variation 13.7 % (11.5-14.5); RDW Standard Deviation 45.3 fL (36.4-46.3)
--- NOTE | 2021-06-24 10:32 | XRay Report ---
XR chest 1V portable CLINICAL HISTORY: gi bleed. Evaluate cardiopulmonary status COMPARISON STUDY: No previous studies for comparison. TECHNIQUE: 02/24/2020 FINDINGS: Single frontal view of the chest demonstrates the heart to again be enlarged with permanent cardiac p acer in place. There is a decreased inspiratory effort with elevation of the hemidiaphragms and crowd ing of the bronchovascular markings at the lung bases and centrally. The lungs are clear of alveolar opacities. There is no evidence for pleural effusion. There is no evidence for vascular congestion. T here is no acute osseous pathology. IMPRESSION: 1. There is a decreased inspiratory effort with otherwise no acute chest disease. ACT 112: Negative or not required by law. Electronically signed by: Kayden Bergman M.D. 06/24/2021 10:31 AM
--- NOTE | 2021-06-24 10:33 | Emergency Department Note ---
History of Present Illness General Chief complaint: Rectal Bleed Stated complaint: RECTAL BLEED Time Seen by Provider: 06/24/21 10:08 History of Present Illness 81-year-old female presents to the ED with a chief complaint of rectal bleeding. The patient states that she had to move her bowels this morning around 7:30 AM. She states that she put in after looking in the toilet, there was a lot of blood in the toilet. She states that she continued having some rectal bleeding after that. She saturated about 4 pads. She called ambulance and had them transport her to the hospital for evaluation. The patient is chronically on Xarelto for history of A. fib. She does have a pacemaker. Review of the chart suggests varicose veins of the anus and rectum. She denies any chest pains, shortness of breath or lightheadedness. No additional complaints at this time. Abdominal pains. Home Medications Medication Instructions Recorded Confirmed Type blood sugar diagnostic (OneTouch #10 ea 11/07/18 05/01/21 History Ultra Blue Test Strip) calcium citrate 250 mg 1 tab PO QAM tab 11/07/18 05/01/21 History calcium-vitamin D3 5 mcg (200 unit) tablet cranberry concentrate-ascorbic 1 cap PO DAILY cap 11/07/18 05/01/21 History acid 4,200 mg-20 mg capsule docusate sodium 100 mg capsule 100 mg PO PM 11/07/18 05/01/21 History multivitamin 1 tab PO QAM 11/07/18 05/01/21 History psyllium husk (with sugar) 3.4 2 tbs PO QPM PRN ea 11/07/18 05/01/21 History gram oral powder packet miscellaneous medical supply 1 ea MISCELLANEOUS .COMPLEX #1 ea 03/09/20 04/23/21 Rx triamcinolone acetonide 0.1 % 1 applic TOPICAL BID #30 g 08/15/20 05/01/21 Rx topical cream nitroglycerin 0.4 mg sublingual 0.4 mg SL UD PRN #20 tab 09/22/20 05/01/21 Rx tablet amlodipine 10 mg tablet 10 mg PO QAM #90 tab 09/29/20 05/01/21 Rx albuterol sulfate 90 mcg/actuation 2 puff INH Q4H PRN #18 gm 10/06/20 05/01/21 Rx aerosol inhaler (Ventolin HFA) atenolol 50 mg tablet 50 mg PO QAM #90 tab 10/23/20 05/01/21 Rx ipratropium 0.5 mg-albuterol 3 mg 3 ml INHALATION Q8H PRN #180 ml 10/23/20 05/01/21 Rx (2.5 mg base)/3 mL nebulization soln sitagliptin 25 mg tablet (Januvia) 25 mg PO QAM #90 tab 12/26/20 05/01/21 Rx losartan 25 mg tablet 25 mg PO QAM #90 tab 01/09/21 05/01/21 Rx rivaroxaban 15 mg tablet (Xarelto) 15 mg PO .COMPLEX #90 tab 01/19/21 05/01/21 Rx simvastatin 20 mg tablet 20 mg PO HS #90 tab 03/06/21 05/01/21 Rx zolpidem 5 mg tablet 5 mg PO QPM #30 tab 03/23/21 05/01/21 Rx furosemide 20 mg tablet 20 mg PO QAM #90 tab 04/23/21 05/01/21 Rx isosorbide mononitrate 30 mg 90 mg PO QAM #270 tab 04/23/21 05/01/21 Rx tablet,extended release 24 hr fluticasone fur. 100 mcg-umeclid 1 inh INHALATION DAILY #3 inhaler 05/02/21 05/02/21 Rx 62.5 mcg-vilant 25 mcg inhalat.powder (Trelegy Ellipta) denosumab 60 mg/mL subcutaneous 60 mg SQ Q6MO #1 ml 06/15/21 06/15/21 Rx syringe (Prolia) Allergies Allergy/AdvReac Type Severity Reaction Status Date / Time chlorthalidone Allergy Severe Swelling Verified 05/01/21 13:43 of Lip/Tongue/Throat Penicillins Allergy Severe Swelling Verified 05/01/21 13:43 of Lip/Tongue/Throat MANDEEP Inhibitors Allergy Unknown Unknown Verified 05/01/21 13:43 atenolol Allergy Unknown Unknown Verified 05/01/21 13:43 trazodone Allergy Unknown Unknown Verified 05/01/21 13:43 Past Med/Surg History Medical History Acute anterior epistaxis Acute posterior epistaxis Anemia Atrial fibrillation permanent, now s/p PPM (2017) CAD (coronary artery disease) [place] (1992) CHF (congestive heart failure) follows with [facility] (Dr. Marcos) Chronic kidney disease, stage 3 follows with nephrology ([facility]/Dr. Richard) COPD (chronic obstructive pulmonary disease) 2L HS + occasionally PRN, follows with [facility] COPD with asthma COPD with emphysema Deep vein thrombosis B/L LE (1967), Diabetes mellitus, type 2 NIDDM Dysfunction of left eustachian tube Hearing deficit History of kidney cancer s/p L nephrectomy (1997) Hyperlipidemia controlled Hypertension controlled Insomnia Intractable back pain Leg swelling Mixed conductive and sensorineural hearing loss of left ear with restricted hearing of right ear Osteoarthritis Osteoporosis Pacemaker Implanted 2016, [employer], last check 09/2019 Pulmonary nodule per records Restless leg syndrome Syncope UTI (urinary tract infection) Vitamin D deficiency Surgical History History of cardiac cath 10+ years ago, no stents History of cholecystectomy History of colonoscopy History of hip surgery R/L NABEEL History of myringotomy + Left ear tube removal: 06/09/19: LMA#4 atraumatic at [facility] History of nephrectomy left History of vaginal hysterectomy Hx of bilateral cataract extraction Status post placement of cardiac pacemaker 2016 Family History Brother Hypertension Mother Cardiac disorder Sister Lung cancer Aunt Lung cancer Father No problems noted. Unknown Family history of allergies Environmental allergies Denies family history of Ovarian cancer Prostate cancer Myocardial infarction Breast cancer Colorectal cancer Social History Smoking Status: Former smoker Tobacco Type: Cigarettes Age Started Using Tobacco: 26; Age Quit Using Tobacco: 55; packs per day: 1; Years Smoked: 29; Cigarettes Per Day: 20; Number of Years Since Quit: 25; Second Hand Exposure: No; Hx Alcohol Use: No Hx Substance Use: No Preferred Language: Setswana Communication Ability: Effective Visual Impairment: No Limitations Hearing Ability: Hard of Hearing Site Physician Required: No Beliefs That Will Affect Care: None marital status: / Current Living Situation: Family Current Living Situation Comment: Patient moved to a senior apartment and is living by herself current occupational status: retired current occupation: worked at [employer] Feels Safe at Home: Yes Childhood Exposure to Second-Hand Smoke: No Diet Comment: Low sugar/ Sugar free options when possible caffeine: Yes (2 cups of coffee daily ) Dental Care, Regularly: No Physical Activity Frequency: Daily Seatbelt Use: always Sunscreen Use: Yes Assistive Devices: Denture - Upper, Denture - Lower, Nebulizer, Oxygen - at Night and Oxygen - Continuous Review of Systems A total of 10 systems reviewed and were otherwise negative Physical Exam Vital Signs Vital Signs - 24 hr 06/24/21 10:07 06/24/21 10:13 06/24/21 11:00 Temperature 36.7 C Temperature Source Oral Pulse Rate 87 82 65 Pulse Rate from SpO2 Sensor 83 Respiratory Rate 16 23 22 Blood Pressure 162/98 H 169/73 H Blood Pressure Mean 119 105 Pulse Oximetry 93 96 98 Oxygen Delivery Method Room Air Sepsis Recent Fever Within 48 Hours No Sepsis New/Unexplained Change in Mental Status No Sepsis Action Taken by Nursing No Action Required CONSTITUTIONAL/VITAL SIGNS: Reviewed / noted above. GENERAL: Non-toxic in appearance. INTEGUMENTARY: Warm, dry, and [place]. HEAD: Normocephalic. EYES: without scleral icterus or trauma. ENT/OROPHARYNX: clear and moist. LYMPHADENOPATHY/NECK: Is supple without lymphadenopathy or meningismus. RESPIRATORY: Clear to auscultation bilaterally. No increased work of breathing. CARDIOVASCULAR: Regular rate and rhythm. GI/ABDOMEN: Soft and nontender. No organomegaly or pulsatile mass. EXTREMITIES: Warm and well perfused. BACK: No CVA tenderness. NEUROLOGICAL: Intact without focal deficits. PSYCHIATRIC: normal affect. MUSCULOSKELETAL: Normally developed with good muscle tone. RECTAL: No evidence of external rectal bleeding. No hemorrhoids. No fissures. Gross blood on rectal exam. TRIAGE NURSING DOCUMENTATION REVIEWED. Medical Decision Making Differential Diagnosis Differential includes upper and lower GI bleeding, hemorrhoids, inflammation, infection, anemia, anticoagulation use. Medical Records Attestation: I reviewed the patient's medical records. Home Medications Current Medication List: was personally reviewed by me Laboratory Data Attestation: I reviewed the patient's lab results. Result diagrams: 06/24/21 10:20 06/24/21 10:20 Lab Results 06/24/21 06/24/21 06/24/21 Range/Units 10:20 10:20 10:20 WBC 7.80 (4.8-10.8) K/uL RBC 4.50 (4.2-5.4) M/uL Hgb 13.9 (12.0-16.0) g/dL Hct 40.4 (37-47) % MCV 89.8 (80-100) fL MCH 30.9 (25-34) pg MCHC 34.4 (32-36) g/dL RDW Std Deviation 45.3 (36.4-46.3) fL RDW Coeff of Stephane 13.7 (11.5-14.5) % Plt Count 201 (130-400) K/uL MPV 10.1 (7.4-10.4) fL Immature Gran % (Auto) 0.3 % Neut % (Auto) 74.2 % Lymph % (Auto) 15.4 % [place] % (Auto) 6.7 % Eos % (Auto) 2.9 % Baso % (Auto) 0.5 % Neut # (Auto) 5.79 (1.4-6.5) K/uL Lymph # (Auto) 1.20 (1.2-3.4) K/uL [place] # (Auto) 0.52 (0.11-0.59) K/uL Eos # (Auto) 0.23 (0-0.5) K/uL Baso # (Auto) 0.04 (0-0.2) K/uL Immature Gran # (Auto) 0.02 (0.00-0.02) K/uL PT 12.0 (9.0-12.0) Seconds INR 1.1 (0.9-1.1) APTT 32.0 H (21.0-31.0) Seconds PTT Ratio 1.2 Sodium 138 (136-145) mmol/L Potassium 4.0 (3.5-5.1) mmol/L Chloride 104 (98-107) mmol/L Carbon Dioxide 28 (21-32) mmol/L Anion Gap 6 (3-11) BUN 22 (6-23) mg/dl Creatinine 1.30 H (0.6-1.2) mg/dl Est Cr Clr Drug Dosing 36.4 ml/min Est GFR ( Amer) 43.9 ml/min Est GFR (Non-Af Amer) 37.9 ml/min BUN/Creatinine Ratio 16.9 (10-20) Glucose 136 H (70-99(Fasting)) mg/dl Calcium 9.9 (8.5-10.1) mg/dl Total Bilirubin 0.6 (0.2-1.0) mg/dl AST 18 (13-39) U/L ALT 11 (7-52) U/L Alkaline Phosphatase 53 (34-104) U/L Total Protein 7.7 (6.0-8.3) gm/dl Albumin 4.1 (3.4-5.0) gm/dl Globulin 3.6 (2.5-4.0) gm/dl Albumin/Globulin Ratio 1.1 (0.9-2) POC Stool Occult Blood (Negative) 06/24/21 Range/Units 10:25 WBC (4.8-10.8) K/uL RBC (4.2-5.4) M/uL Hgb (12.0-16.0) g/dL Hct (37-47) % MCV (80-100) fL MCH (25-34) pg MCHC (32-36) g/dL RDW Std Deviation (36.4-46.3) fL RDW Coeff of Stephane (11.5-14.5) % Plt Count (130-400) K/uL MPV (7.4-10.4) fL Immature Gran % (Auto) % Neut % (Auto) % Lymph % (Auto) % [place] % (Auto) % Eos % (Auto) % Baso % (Auto) % Neut # (Auto) (1.4-6.5) K/uL Lymph # (Auto) (1.2-3.4) K/uL [place] # (Auto) (0.11-0.59) K/uL Eos # (Auto) (0-0.5) K/uL Baso # (Auto) (0-0.2) K/uL Immature Gran # (Auto) (0.00-0.02) K/uL PT (9.0-12.0) Seconds INR (0.9-1.1) APTT (21.0-31.0) Seconds PTT Ratio Sodium (136-145) mmol/L Potassium (3.5-5.1) mmol/L Chloride (98-107) mmol/L Carbon Dioxide (21-32) mmol/L Anion Gap (3-11) BUN (6-23) mg/dl Creatinine (0.6-1.2) mg/dl Est Cr Clr Drug Dosing ml/min Est GFR ( Amer) ml/min Est GFR (Non-Af Amer) ml/min BUN/Creatinine Ratio (10-20) Glucose (70-99(Fasting)) mg/dl Calcium (8.5-10.1) mg/dl Total Bilirubin (0.2-1.0) mg/dl AST (13-39) U/L ALT (7-52) U/L Alkaline Phosphatase (34-104) U/L Total Protein (6.0-8.3) gm/dl Albumin (3.4-5.0) gm/dl Globulin (2.5-4.0) gm/dl Albumin/Globulin Ratio (0.9-2) POC Stool Occult Blood Positive A (Negative) Imaging Data Radiologist's Impression: Chest X-Ray 06/24/21 10:08 XR chest 1V portable CLINICAL HISTORY: gi bleed. Evaluate cardiopulmonary status COMPARISON STUDY: No previous studies for comparison. TECHNIQUE: 02/24/2020 FINDINGS: Single frontal view of the chest demonstrates the heart to again be enlarged with permanent cardiac pacer in place. There is a decreased inspiratory effort with elevation of the hemidiaphragms and crowding of the bronchovascular markings at the lung bases and centrally. The lungs are clear of alveolar opacities. There is no evidence for pleural effusion. There is no evidence for vascular congestion. There is no acute osseous pathology. IMPRESSION: 1. There is a decreased inspiratory effort with otherwise no acute chest disease. ACT 112: Negative or not required by law. Electronically signed by: Kayden Bergman M.D. 06/24/2021 10:31 AM ECG Data Attestation: I personally reviewed and interpreted this ECG as follows: Additional Comments: Twelve-lead EKG: Per my interpretation shows a paced ventricular rhythm at a rate of 80. PVC. Normal QTC peer MDM Narrative 81-year-old female chronically on Xarelto for A. fib presents with rectal bleeding that started 730 this morning after a bowel movement. Denies other symptoms. Exam reveals gross blood on rectal exam. No obvious external visible source. Vital signs reveal hypertension. Twelve-lead EKG shows paced ventricular rhythm at a rate of 80. CBC is normal. Chemistry panel was unremarkable. Chest x-ray shows no acute disease. Because of the patient's symptoms and the fact that she is on a NOAC, observation was felt to be prudent to monitor her blood counts and bleeding. I did speak with the hospitalist about this. They will see the patient for further evaluation and care Impression & Plan Acute lower gastrointestinal bleeding Discharge Plan Visit Data Chief Complaint: Rectal Bleed Stated Complaint: RECTAL BLEED ED Provider: Mic Zarate Discharge Problem: Acute lower gastrointestinal bleeding Patient Disposition: Being Evaluated by Hospitalist Forms Stand Alone Forms: [facility] Prescriptions Prescriptions: No Action amlodipine 10 mg tablet 10 mg PO QAM Qty: 90 RF: 3 atenolol 50 mg tablet 50 mg PO QAM Qty: 90 RF: 3 ipratropium-albuterol 0.5 mg-3 mg(2.5 mg base)/3 mL solution for nebulization 3 ml inhalation Q8H PRN (Reason: shortness of breath or wheezing) Qty: 180 RF: 2 Januvia 25 mg tablet 25 mg PO QAM Qty: 90 RF: 3 losartan 25 mg tablet 25 mg PO QAM Qty: 90 RF: 3 Xarelto 15 mg tablet 15 mg PO .COMPLEX Qty: 90 RF: 3 simvastatin 20 mg tablet 20 mg PO HS Qty: 90 RF: 3 zolpidem 5 mg tablet 5 mg PO QPM Qty: 30 RF: 5 albuterol sulfate [Ventolin HFA] 90 mcg/actuation HFA aerosol inhaler 2 puff INH Q4H PRN (Reason: shortness of breath or wheezing) Qty: 18 RF: 3 nitroglycerin 0.4 mg tablet, sublingual 0.4 mg SL UD PRN (Reason: chest pain) Qty: 20 RF: 3 triamcinolone acetonide 0.1 % cream 1 applic topical BID Qty: 30 RF: 2 isosorbide mononitrate 30 mg tablet extended release 24 hr 90 mg PO QAM Qty: 270 RF: 3 furosemide 20 mg tablet 20 mg PO QAM Qty: 90 RF: 3 (DME) OneTouch Ultra Blue Test Strip strip See Dose Instructions .ROUTE .MEDSUPPLY Qty: 10 RF: 0 cranberry conc-ascorbic acid 4,200-20 mg capsule 1 cap PO DAILY RF: 0 calcium citrate-vitamin D3 250 mg calcium- 200 unit tablet 1 tab PO QAM RF: 0 docusate sodium 100 mg capsule 100 mg PO PM RF: 0 psyllium husk (with sugar) 3.4 gram powder in packet 2 tbs PO QPM PRN (Reason: Constipation) RF: 0 multivitamin tablet 1 tab PO QAM RF: 0 Prolia 60 mg/mL syringe 60 mg SQ Q6MO Qty: 1 RF: 0 miscellaneous medical supply Misc 1 ea miscellaneous .COMPLEX Qty: 1 RF: 0 Trelegy Ellipta 100-62.5-25 mcg blister with device 1 inh inhalation DAILY Qty: 3 RF: 1 Referrals Referrals: Dagoberto Headley MD [Primary Care Provider] -
[2021-06-24 10:44] LABS: INR 1.1 (0.9-1.1); Partial Thromboplastin Ratio 1.2
[2021-06-24 10:50] LABS: Albumin Globulin Ratio 1.1 (0.9-2); Albumin Level 4.1 gm/dl (3.4-5.0); BUN Creatinine Ratio 16.9 (10-20); Bilirubin,Total 0.6 mg/dl (0.2-1.0); Calcium 9.9 mg/dl (8.5-10.1); Creatinine Clr Calc Pharmacy 36.4 ml/min; Est GFR (African American) 43.9 ml/min; Est GFR (Non-African American) 37.9 ml/min; Globulin 3.6 gm/dl (2.5-4.0); Total Protein 7.7 gm/dl (6.0-8.3)
--- NOTE | 2021-06-24 12:24 | History & Physical Report ---
Date of Service June 24, 2021 Assessment & Plan (1) GI bleed: Plan: -1 episode of brisk red blood today, patient does have hx of varicose veins in anus and rectum and reports she thinks she is constipated. No fever/chills, epigastric/abdominal pain, melena, nausea/vomiting, chest pain or SOB. No known hx of diverticulitis. Source of bleed is most likely from varicose veins in the setting of constipation. -Holding Xarelto, full liquid diet, will trend CBC this evening and in AM to trend Hgb. Hgb 13.9 upon admission. -Will hold off on GI consult for now, can consider if Hgb drops significantly. -Stool softeners daily. (2) Atrial fibrillation: Plan: Continue amlodipine 10 mg every morning, atenolol 50 mg every morning. Hold anticoagulation in the setting of acute bleed. Regular rate and rhythm on admission. (3) CAD (coronary artery disease): Plan: -[place] in 1992. Stable today, no complaints of chest pain. -Continue simvastatin, losartan, isosorbide mononitrate, atenolol. 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 -Continue Trelegy once daily. -Albuterol with DuoNebs PRN. -SpO2 goal 88-92%. (5) Chronic diastolic CHF (congestive heart failure): Plan: -ECHO 02/25/2020--> EF 55-60%, severely dilated left atrium, right atrium is moderately to severely dilated, mild mitral regurgitation. Follows with Dr. Marcos. -Does not appear volume overloaded today. -Continue Lasix 20 mg daily. (6) Diabetes mellitus: Plan: -On sitagliptin at home, will d/c while hospitalized. -Will start sliding scale insulin today, can add on Lantus if sugars consistently elevated. Per PCP note from April, sugars always under 140 at home. -Full liquid today in case there is need for colonoscopy tomorrow; will eventually be low sodium/CC diet. -Hba1c in December 2020 6.3 Will recheck tomorrow AM. (7) Hypertension: Plan: -Continue amlodipine, atenolol, and losartan. (8) Chronic kidney disease, stage 3: Plan: -With right renal artery stenosis. -Cr 1.30 today, at baseline. -Renally dose all medications, avoid nephrotoxic agents. -Continue vit D supplementation. -Continue to trend BMP. (9) Hyperlipidemia: Plan: -Continue simvastatin 20mg daily. 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 (11) Insomnia: Plan: -Continue zolpidem. Plan: -Med/surg with tele. -SCDs, no chemo ppx due to acute LGI bleed. -Full Code. History of Present Illness Chief Complaint: lower GI bleed Primary Care Provider: Dagoberto Headley MD Patient is an 81 y/o female with a PMH of afibb on Xarelto, HTN, DM2, CHF, COPD, CKD3, insomnia, and known anal/rectum varicose veins who presents today with rectal bleeding. States she had been feeling very well lately, no recent episodes of hematochezia or melena or abdominal pain. She went to have a BM this morning and saw a significant amount of blood in the toilet bowl. She used preparation H cream and several pads to control bleeding, however it persisted, prompting her to call 911 for transportation to ED. She is otherwise asymptomatic, no chest pain, SOB, dizziness, syncopal events, n/v, abdominal pain, or diarrhea. She does tell me she feels she is constipated, as she had some straining with her BM today. She usually takes laxatives to help with BMs. Did take Xarelto as scheduled last evening. In ED, VSS and within normal limits. CBC unremarkable, Hgb 13.9, BMP unremarkable, Cr 1.30 (baseline), glucose 136. Hemoccult positive. CXR showed no acute disease process. Hospitalist service as consulted for further evaluation and admission. Allergies Allergy/AdvReac Type Severity Reaction Status Date / Time chlorthalidone Allergy Severe Swelling Verified 05/01/21 13:43 of Lip/Tongue/Throat Penicillins Allergy Severe Swelling Verified 05/01/21 13:43 of Lip/Tongue/Throat MANDEEP Inhibitors Allergy Unknown Unknown Verified 05/01/21 13:43 atenolol Allergy Unknown Unknown Verified 05/01/21 13:43 trazodone Allergy Unknown Unknown Verified 05/01/21 13:43 Home Medications Medication Instructions Recorded Confirmed Type calcium citrate 250 mg 1 tab PO QAM tab 11/07/18 06/24/21 History calcium-vitamin D3 5 mcg (200 unit) tablet cranberry concentrate-ascorbic 1 cap PO DAILY cap 11/07/18 06/24/21 History acid 4,200 mg-20 mg capsule multivitamin 1 tab PO QAM 11/07/18 06/24/21 History nitroglycerin 0.4 mg sublingual 0.4 mg SL UD PRN #20 tab 09/22/20 06/24/21 Rx tablet albuterol sulfate 90 mcg/actuation 2 puff INH Q4H PRN #18 gm 10/06/20 06/24/21 Rx aerosol inhaler (Ventolin HFA) atenolol 50 mg tablet 50 mg PO QAM #90 tab 10/23/20 06/24/21 Rx sitagliptin 25 mg tablet (Januvia) 25 mg PO QAM #90 tab 12/26/20 06/24/21 Rx losartan 25 mg tablet 25 mg PO QAM #90 tab 01/09/21 06/24/21 Rx rivaroxaban 15 mg tablet (Xarelto) 15 mg PO .COMPLEX #90 tab 01/19/21 06/24/21 Rx simvastatin 20 mg tablet 20 mg PO HS #90 tab 03/06/21 06/24/21 Rx isosorbide mononitrate 30 mg 90 mg PO QAM #270 tab 04/23/21 06/24/21 Rx tablet,extended release 24 hr denosumab 60 mg/mL subcutaneous 60 mg SQ Q6MO #1 ml 06/15/21 06/24/21 Rx syringe (Prolia) amlodipine 10 mg tablet 10 mg PO DAILY 06/24/21 06/24/21 History hydrochlorothiazide 25 mg tablet 25 mg PO DAILY 06/24/21 06/24/21 History Past Med/Surg History Medical History Acute anterior epistaxis Acute posterior epistaxis Anemia Atrial fibrillation permanent, now s/p PPM (2016) CAD (coronary artery disease) [place] (1992) CHF (congestive heart failure) follows with [facility] (Dr. Marcos) Chronic kidney disease, stage 3 follows with nephrology ([facility]/Dr. Richard) COPD (chronic obstructive pulmonary disease) 2L HS + occasionally PRN, follows with [facility] COPD with asthma COPD with emphysema Deep vein thrombosis B/L LE (1967), Diabetes mellitus, type 2 NIDDM Dysfunction of left eustachian tube Hearing deficit History of kidney cancer s/p L nephrectomy (1997) Hyperlipidemia controlled Hypertension controlled Insomnia Intractable back pain Leg swelling Mixed conductive and sensorineural hearing loss of left ear with restricted hearing of right ear Osteoarthritis Osteoporosis Pacemaker Implanted 2017, [employer], last check 09/2019 Pulmonary nodule per records Restless leg syndrome Syncope UTI (urinary tract infection) Vitamin D deficiency Surgical History History of cardiac cath 10+ years ago, no stents History of cholecystectomy History of colonoscopy History of hip surgery R/L NABEEL History of myringotomy + Left ear tube removal: 06/09/19: LMA#4 atraumatic at [facility] History of nephrectomy left History of vaginal hysterectomy Hx of bilateral cataract extraction Status post placement of cardiac pacemaker 2016 Family History Brother Hypertension Mother Cardiac disorder Sister Lung cancer Aunt Lung cancer Father No problems noted. Unknown Family history of allergies Environmental allergies Denies family history of Ovarian cancer Prostate cancer Myocardial infarction Breast cancer Colorectal cancer Social History Smoking Status: Never smoker Tobacco Type: Cigarettes Age Started Using Tobacco: 26; Age Quit Using Tobacco: 55; packs per day: 1; Years Smoked: 29; Cigarettes Per Day: 20; Number of Years Since Quit: 25; Second Hand Exposure: No; Hx Alcohol Use: No Hx Substance Use: No Preferred Language: Lithuanian Communication Ability: Effective Visual Impairment: No Limitations Hearing Ability: Hard of Hearing Help Desk Coordinator Required: No Beliefs That Will Affect Care: None marital status: / Current Living Situation: Family Current Living Situation Comment: Lives in [facility] [address], 2 bedrooms. current occupational status: retired current occupation: worked at [employer] Other Information That Helps Us Care for You: No Feels Safe at Home: Yes Childhood Exposure to Second-Hand Smoke: No Diet Comment: Low sugar/ Sugar free options when possible caffeine: Yes (2 cups of coffee daily ) Dental Care, Regularly: No Physical Activity Frequency: Daily Seatbelt Use: always Sunscreen Use: Yes Assistive Devices: None Review of Systems Review of Systems: Constitutional: No fever, sweats or chills Eyes: No diplopia, no worsening or blurred vision ENT: normal hearing, no trouble swallowing Respiratory: No cough, sputum, dyspnea at rest or on exertion Cardiovascular: No chest pain, tightness or palpitations Abdomen: Reports constipation with strain with BM this AM, and hematochezia this AM; no pain, nausea, vomiting, diarrhea, melena. Musculoskeletal: No joint pain, calf pain, swelling Neurologic: No weakness, numbness/tingling, or balance problems Psychiatric: No anxiety or depression Skin: No rash or itch Physical Exam Physical Exam: General: awake, alert, no apparent distress Head: Normocephalic, atraumatic ENT: PERRL, EOMI, no pharyngeal exudate, mucous membranes moist Chest: Clear to auscultation, on room air, no adventitious breath sounds Cardiac: Regular rate and rhythm, no murmur, no JVD, normal peripheral pulses, good capillary refill Abdominal: NABS x 4 quadrants, soft, nontender to palpation, no rebound, guarding or tenderness Extremities: Normal inspection, no peripheral edema or erythema, calfs nontender to palpation Psych: Normal mood and affect Neuro: AAO x 3, strength intact bilaterally and rated 5/5, no motor deficits, speech is clear, no peripheral sensory deficits Skin: no rash or erythema Results & Data Results & Data ([facility]) Vital Signs (Past 12 Hours) Vital Signs Temp Pulse Resp BP Pulse Ox 06/24/21 12:00 60 18 157/84 H 96 06/24/21 11:00 65 22 169/73 H 98 06/24/21 10:13 82 23 96 06/24/21 10:07 36.7 C 87 16 162/98 H 93 Laboratory Results Abnormal lab results 06/24/21 06/24/21 06/24/21 Range/Units 10:20 10:20 10:25 APTT 32.0 H (21.0-31.0) Seconds Creatinine 1.30 H (0.6-1.2) mg/dl Glucose 136 H (70-99(Fasting)) mg/dl POC Stool Occult Blood Positive A (Negative) Diagnostic Findings Chest X-Ray 06/24/21 10:08 XR chest 1V portable CLINICAL HISTORY: gi bleed. Evaluate cardiopulmonary status COMPARISON STUDY: No previous studies for comparison. TECHNIQUE: 02/24/2020 FINDINGS: Single frontal view of the chest demonstrates the heart to again be enlarged with permanent cardiac pacer in place. There is a decreased inspiratory effort with elevation of the hemidiaphragms and crowding of the bronchovascular markings at the lung bases and centrally. The lungs are clear of alveolar opacities. There is no evidence for pleural effusion. There is no evidence for vascular congestion. There is no acute osseous pathology. IMPRESSION: 1. There is a decreased inspiratory effort with otherwise no acute chest disease. ECG Additional Comments: Ventricular-paced rhythm with occasional Premature ventricular complexes Abnormal ECG When compared with ECG of 24-FEB-2020 18:24, Premature ventricular complexes are now Present Vent. rate has increased BY 21 BPM Code Status & VTE Plan Code Status Full Code. VTE Prophylaxis Plan VTE Prophylaxis will be ordered: Yes Supervising Physician Co-Signing Physician Notes Patient was seen and examined independently I discussed the case with Kyra Chapman PAC I reviewed pertinent past medical social family history and also the plan of care and agree with the plan of care. Very pleasant lady who developed painful rectal bleeding has a history of a rectal fissure to distant past but also takes Xarelto for atrial fibrillation. Patient sees Dr. Melchor for cardiac issues. Emergency department his right bright red blood per rectum there is no melena. Visual inspection of the rectum performed by ER physician does not show any signs of abnormal anatomy. Patient is not tachycardic or hypotensive in fact may be slightly hypertensive Patient be observed our facility with serial hemoglobin check. Initial hemoglobin is 13.9. Holding her Xarelto at this time we may confer with cardiology to determine the duration of time she could be off of her Xarelto prior to restarting it Physical exam finds her to be in what sounds like a regular rhythm as she has a permanent pacemaker. Lungs are clear abdomen is soft Any exceptions will be noted below PG Care Time/CCT Total # of Minutes Spent Total Time Spent with Patient: Total time spent is greater than 50% in coordination of care (as documented) at patient's floor/unit and/or counseling patient: Coding Level of Care Code INT OBSERVATION CARE 70M LVL 3 Diagnoses GI bleed K92.2 Atrial fibrillation I48.91 CAD (coronary artery disease) I25.10 Chronic diastolic CHF (congestive heart failure) I50.32 Diabetes mellitus E11.9 Hypertension I10 Chronic kidney disease, stage 3 N18.3 Hyperlipidemia E78.5 Hyperlipidemia type: unspecified Chronic respiratory failure with hypoxia J96.11 Bradycardia R00.1 Insomnia G47.00 (1) Hyperlipidemia Hyperlipidemia type: unspecified Qualified Code(s): E78.5 - Hyperlipidemia, unspecified
[2021-06-24] MEDS ORDERED: ALBUTEROL HFA 8 GM INHALER INH PRN (14:27)
[2021-06-24] MEDS ORDERED: POLYETHYLENE (MIRALAX) 17 GM PACK PO PRN (14:27)
[2021-06-24] MEDS ORDERED: ALBUT/IPRATROP 3MG/0.5MG NEB 3 ML VIAL INH PRN (14:27)
[2021-06-24] MEDS ORDERED: ONDANSETRON INJ 2 MG/ML 2 ML VIAL IV PRN (14:27)
[2021-06-24] MEDS ORDERED: PSYLLIUM 58.6% POWDER PACKET PO PRN (14:27)
[2021-06-24] MEDS ORDERED: NITROGLYCERIN SL 0.4 MG/TAB TAB SL PRN (14:27)
[2021-06-24] MEDS ORDERED: GLUCOSE 40% GEL 15 GM TUBE PO PRN (16:12)
[2021-06-24] MEDS ORDERED: GLUCAGON FOR INJ 1 MG VIAL SQ PRN (16:12)
[2021-06-24] MEDS ORDERED: DEXTROSE 50% 50 ML SYRINGE IV PRN (16:12)
[2021-06-24] MEDS ORDERED: GLUCOSE 10 TABS/TUBE PO PRN (16:12)
[2021-06-24] MEDS ORDERED: CARBOHYDRATES FOR HYPOGLYCEMIA PO PRN (16:12)
[2021-06-24] MEDS: INSULIN ASPART PER UNIT SC SCH ×2 (17:20→20:12)
[2021-06-24 17:30] LABS: Basophils # (auto) 0.03 K/uL (0-0.2); Basophils % (auto) 0.4 %; Eosinophils # (auto) 0.21 K/uL (0-0.5); Hematocrit (blood only) 37.4 % (37-47); Hemoglobin 12.9 g/dL (12.0-16.0); Immature Granulocytes # (auto) 0.02 K/uL (0.00-0.02); Immature Granulocytes % (auto) 0.3 %; Lymphocytes # (auto) 1.96 K/uL (1.2-3.4); Lymphocytes % (auto) 27.8 %; Mean Corpuscular Hemoglobin 30.7 pg (25-34); Mean Corpuscular Hgb Conc 34.5 g/dL (32-36); Mean Platelet Volume 10.2 fL (7.4-10.4); Monocytes # (auto) 0.67 K/uL (0.11-0.59); Monocytes % (auto) 9.5 %; Neutrophils # (auto) 4.16 K/uL (1.4-6.5); Platelet Count 172 K/uL (130-400); RDW Coefficient of Variation 13.5 % (11.5-14.5); RDW Standard Deviation 44.1 fL (36.4-46.3); White Blood Count 7.05 K/uL (4.8-10.8)
[2021-06-24] MEDS: DOCUSATE SODIUM 100 MG CAP PO SCH (20:11)
[2021-06-24] MEDS: SIMVASTATIN 20 MG TAB PO SCH (20:11)
[2021-06-24] MEDS: ZOLPIDEM TARTRATE 5 MG TAB PO SCH (22:22)
--- NOTE | 2021-06-25 06:59 | Electrocardiogram Report ---
Test Reason : Blood Pressure : / mmHG Vent. Rate : 081 BPM Atrial Rate : 357 BPM P-R Int : 000 ms QRS Dur : 208 ms QT Int : 448 ms P-R-T Axes : 000 267 090 degrees QTc Int : 520 ms Ventricular-paced rhythm with occasional Premature ventricular complexes Abnormal ECG When compared with ECG of 24-FEB-2020 18:24, Premature ventricular complexes are now Present Vent. rate has increased BY 21 BPM Confirmed by Oumar Kate ([id number]) on 06/25/2021 6:58:58 AM Referred By: REFERRED SELF Confirmed By:Oumar Kate
[2021-06-25] MEDS: amLODIPine BESYLATE 5 MG TAB PO SCH (07:29)
[2021-06-25 08:11] LABS: Basophils # (auto) 0.03 K/uL (0-0.2); Basophils % (auto) 0.4 %; Eosinophils # (auto) 0.24 K/uL (0-0.5); Hematocrit (blood only) 37.1 % (37-47); Hemoglobin 12.5 g/dL (12.0-16.0); Immature Granulocytes # (auto) 0.02 K/uL (0.00-0.02); Immature Granulocytes % (auto) 0.3 %; Lymphocytes # (auto) 2.18 K/uL (1.2-3.4); Lymphocytes % (auto) 27.3 %; Mean Corpuscular Hemoglobin 30.1 pg (25-34); Mean Corpuscular Hgb Conc 33.7 g/dL (32-36); Mean Corpuscular Volume 89.4 fL (80-100); Mean Platelet Volume 10.3 fL (7.4-10.4); Monocytes # (auto) 0.63 K/uL (0.11-0.59); Monocytes % (auto) 7.9 %; Neutrophils # (auto) 4.88 K/uL (1.4-6.5); Neutrophils % (auto) 61.1 %; Platelet Count 175 K/uL (130-400); RDW Coefficient of Variation 13.7 % (11.5-14.5); RDW Standard Deviation 44.8 fL (36.4-46.3); Red Blood Count 4.15 M/uL (4.2-5.4); White Blood Count 7.98 K/uL (4.8-10.8)
[2021-06-25] MEDS: LOSARTAN POTASSIUM 25 MG TAB PO SCH (08:36)
[2021-06-25] MEDS: ISOSORBIDE MONO EXTENDED REL 30 MG TABCR PO SCH (08:36)
[2021-06-25 08:37] LABS: BUN Creatinine Ratio 16.2 (10-20); Calcium 8.5 mg/dl (8.5-10.1); Creatinine Clr Calc Pharmacy 41.3 ml/min; Est GFR (African American) 53.2 ml/min; Est GFR (Non-African American) 45.9 ml/min
[2021-06-25] MEDS: FUROSEMIDE 20 MG TAB PO SCH (08:37)
[2021-06-25] MEDS: CALCIUM 600MG + VIT D 400 IU TAB PO SCH (08:37)
[2021-06-25] MEDS: ATENOLOL 50 MG TABLET PO SCH (08:37)
[2021-06-25] MEDS: INSULIN ASPART PER UNIT SC SCH ×4 (08:38→22:21)
[2021-06-25] MEDS: FLUTICASONE FUROATE 100MCG 14 PUFFS/INHALER INH SCH (08:39)
[2021-06-25] MEDS: UMECLIDINIUM/VILANTEROL 62.5/25MCG 7 PUFFS/INHALER INH SCH (08:40)
[2021-06-25] MEDS ORDERED: NON-FORMULARY MEDICATION (Fluticasone-Umeclidin-Vilanter [Trelegy Ellipta] 100-62.5-25 mcg INH SCH (09:00)
[2021-06-25 10:21] LABS: Estimated Average Glucose 134 mg/dl; Hemoglobin A1C 6.3 % (4.5-5.6)
--- NOTE | 2021-06-25 16:11 | Hospitalist Progress Note ---
Date of Service June 25, 2021 Assessment & Plan (1) GI bleed: Plan: -According to her large amount of painless hematochezia; apparent history of varicosities anorectal; this has not happened before; has had colonoscopy but years agodoes not remember The question becomes resumption of Xarelto and associated risksmay be worth at least sigmoidoscopy to better assess; GI input (2) Atrial fibrillation: Plan: Continue amlodipine 10 mg every morning, atenolol 50 mg every morning. At present anticoagulation on hold; if it is a contraindication then may be a candidate for Mace procedure Kept n.p.o. after midnight (3) CAD (coronary artery disease): Plan: -[place] in 1992. Stable today, no complaints of chest pain. -Continue simvastatin, losartan, isosorbide mononitrate, atenolol. 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 -Continue Trelegy once daily. -Albuterol with DuoNebs PRN. -SpO2 goal 88-92%. (5) Chronic diastolic CHF (congestive heart failure): Plan: -ECHO 02/25/2020--> EF 55-60%, severely dilated left atrium, right atrium is moderately to severely dilated, mild mitral regurgitation. Follows with Dr. Marcos. -Does not appear volume overloaded today. -Continue Lasix 20 mg daily. (6) Diabetes mellitus: Plan: -On sitagliptin at home, will d/c while hospitalized. -Will start sliding scale insulin today, can add on Lantus if sugars consistently elevated. Per PCP note from April, sugars always under 140 at home. -Full liquid today in case there is need for colonoscopy tomorrow; will eventually be low sodium/CC diet. -Hba1c in December 2020 6.3 Will recheck tomorrow AM. (7) Hypertension: Plan: -Continue amlodipine, atenolol, and losartan. (8) Chronic kidney disease, stage 3: Plan: -With right renal artery stenosis. -Cr 1.30 today, at baseline. -Renally dose all medications, avoid nephrotoxic agents. -Continue vit D supplementation. -Continue to trend BMP. (9) Hyperlipidemia: Plan: -Continue simvastatin 20mg daily. 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 (11) Insomnia: Plan: -Continue zolpidem. Plan: -Med/surg with tele. -SCDs, no chemo ppx due to acute LGI bleed. -Full Code. 3-7: Problem list and H&P noted; today no acute issues and no intervention other than GI consult; kept n.p.o. after midnight Admission and Anticipated Discharge Date Admission Date: June 24, 2021 Subjective Follow-up of painless lower GI bleed; no more bleeding but according to her it was a large amount Physical Exam Physical Exam: Constitutional and general: No acute distress, looks biologic age Head and face: No puffiness, atraumatic Eyes: No scleral icterus, extraocular movements normal Neck: Supple, no JVD Musculoskeletal: No acute joint swelling, no bony abnormalities Skin/dermatologic/integument: No rash, no purpura Hematologic and lymphatic: pallor +, no petechia Gastrointestinal/abdomen: Nondistended, soft, nonacute Neurologic: Cranial nerves intact, nonfocal Psychiatry: Awake, alert, pleasant, communicative Cardiovascular: Heart rhythm regular, no rub, no murmur, no gallop Respiratory: Chest movements equal, no use of accessory muscles, no adventitious sounds Extremities: No edema, no cyanosis Results & Data Results & Data ([facility]) Vital Signs (Past 12 Hours) Vital Signs Temp Pulse Pulse Resp BP Pulse Ox 06/25/21 15:46 36.6 C 63 18 127/70 96 06/25/21 11:48 36.6 C 60 18 121/60 93 06/25/21 08:35 75 150/64 H 06/25/21 07:00 36.7 C 60 64 175/73 H 93 Laboratory Results Laboratory Results - last 24 hr 06/24/21 06/24/21 06/24/21 16:28 17:14 20:12 WBC 7.05 RBC 4.20 Hgb 12.9 Hct 37.4 MCV 89.0 MCH 30.7 MCHC 34.5 RDW Std Deviation 44.1 RDW Coeff of Stephane 13.5 Plt Count 172 MPV 10.2 Immature Gran % (Auto) 0.3 Neut % (Auto) 59.0 Lymph % (Auto) 27.8 Hinds % (Auto) 9.5 Eos % (Auto) 3.0 Baso % (Auto) 0.4 Neut # (Auto) 4.16 Lymph # (Auto) 1.96 Hinds # (Auto) 0.67 H Eos # (Auto) 0.21 Baso # (Auto) 0.03 Immature Gran # (Auto) 0.02 Sodium Potassium Chloride Carbon Dioxide Anion Gap BUN Creatinine Est Cr Clr Drug Dosing Est GFR ( Amer) Est GFR (Non-Af Amer) BUN/Creatinine Ratio Glucose POC Glucose 154 H 105 H Estimat Average Glucose Hemoglobin A1c Calcium Magnesium 06/25/21 06/25/21 06/25/21 07:35 07:44 07:44 WBC 7.98 RBC 4.15 L Hgb 12.5 Hct 37.1 MCV 89.4 MCH 30.1 MCHC 33.7 RDW Std Deviation 44.8 RDW Coeff of Stephane 13.7 Plt Count 175 MPV 10.3 Immature Gran % (Auto) 0.3 Neut % (Auto) 61.1 Lymph % (Auto) 27.3 Hinds % (Auto) 7.9 Eos % (Auto) 3.0 Baso % (Auto) 0.4 Neut # (Auto) 4.88 Lymph # (Auto) 2.18 Hinds # (Auto) 0.63 H Eos # (Auto) 0.24 Baso # (Auto) 0.03 Immature Gran # (Auto) 0.02 Sodium 138 Potassium 4.0 Chloride 106 Carbon Dioxide 26 Anion Gap 6 BUN 18 Creatinine 1.11 Est Cr Clr Drug Dosing 41.3 Est GFR ( Amer) 53.2 Est GFR (Non-Af Amer) 45.9 BUN/Creatinine Ratio 16.2 Glucose 115 H POC Glucose 133 H Estimat Average Glucose Hemoglobin A1c Calcium 8.5 Magnesium 2.0 06/25/21 06/25/21 07:44 11:22 WBC RBC Hgb Hct MCV MCH MCHC RDW Std Deviation RDW Coeff of Stephane Plt Count MPV Immature Gran % (Auto) Neut % (Auto) Lymph % (Auto) Hinds % (Auto) Eos % (Auto) Baso % (Auto) Neut # (Auto) Lymph # (Auto) Hinds # (Auto) Eos # (Auto) Baso # (Auto) Immature Gran # (Auto) Sodium Potassium Chloride Carbon Dioxide Anion Gap BUN Creatinine Est Cr Clr Drug Dosing Est GFR ( Amer) Est GFR (Non-Af Amer) BUN/Creatinine Ratio Glucose POC Glucose 124 H Estimat Average Glucose 134 Hemoglobin A1c 6.3 H Calcium Magnesium PG Care Time/CCT Total # of Minutes Spent Total Time Spent with Patient: Total time spent is greater than 50% in coordination of care (as documented) at patient's floor/unit and/or counseling patient: Coding Level of Care Code 44323 Subseq Hosp Care Lvl 2 Diagnoses GI bleed K92.2 Atrial fibrillation I48.91 CAD (coronary artery disease) I25.10 Chronic respiratory failure with hypoxia J96.11 Chronic diastolic CHF (congestive heart failure) I50.32 Diabetes mellitus E11.9 Hypertension I10 Chronic kidney disease, stage 3 N18.3 Hyperlipidemia E78.5 Hyperlipidemia type: unspecified Bradycardia R00.1 Insomnia G47.00 (1) Hyperlipidemia Hyperlipidemia type: unspecified Qualified Code(s): E78.5 - Hyperlipidemia, unspecified
[2021-06-25] MEDS: SIMVASTATIN 20 MG TAB PO SCH (22:22)
[2021-06-25] MEDS: DOCUSATE SODIUM 100 MG CAP PO SCH (22:25)
[2021-06-25] MEDS: ZOLPIDEM TARTRATE 5 MG TAB PO SCH (22:25)
[2021-06-26] MEDS: INSULIN ASPART PER UNIT SC SCH ×4 (08:08→21:18)
[2021-06-26 08:17] LABS: Basophils # (auto) 0.04 K/uL (0-0.2); Basophils % (auto) 0.6 %; Eosinophils # (auto) 0.24 K/uL (0-0.5); Eosinophils % (auto) 3.3 %; Hematocrit (blood only) 36.2 % (37-47); Hemoglobin 12.4 g/dL (12.0-16.0); Immature Granulocytes # (auto) 0.03 K/uL (0.00-0.02); Immature Granulocytes % (auto) 0.4 %; Lymphocytes # (auto) 1.99 K/uL (1.2-3.4); Lymphocytes % (auto) 27.7 %; Mean Corpuscular Hemoglobin 30.3 pg (25-34); Mean Corpuscular Hgb Conc 34.3 g/dL (32-36); Mean Corpuscular Volume 88.5 fL (80-100); Mean Platelet Volume 10.3 fL (7.4-10.4); Monocytes # (auto) 0.58 K/uL (0.11-0.59); Monocytes % (auto) 8.1 %; Neutrophils # (auto) 4.31 K/uL (1.4-6.5); Neutrophils % (auto) 59.9 %; Platelet Count 177 K/uL (130-400); RDW Coefficient of Variation 13.6 % (11.5-14.5); RDW Standard Deviation 44.1 fL (36.4-46.3); Red Blood Count 4.09 M/uL (4.2-5.4); White Blood Count 7.19 K/uL (4.8-10.8)
[2021-06-26 08:35] LABS: Calcium 8.7 mg/dl (8.5-10.1); Creatinine Clr Calc Pharmacy 36.7 ml/min; Est GFR (African American) 46.1 ml/min; Est GFR (Non-African American) 39.7 ml/min
[2021-06-26] MEDS: UMECLIDINIUM/VILANTEROL 62.5/25MCG 7 PUFFS/INHALER INH SCH (09:00)
[2021-06-26] MEDS: FUROSEMIDE 20 MG TAB PO SCH (09:00)
[2021-06-26] MEDS: amLODIPine BESYLATE 5 MG TAB PO SCH (09:00)
[2021-06-26] MEDS: ATENOLOL 50 MG TABLET PO SCH (09:00)
[2021-06-26] MEDS: FLUTICASONE FUROATE 100MCG 14 PUFFS/INHALER INH SCH (09:00)
[2021-06-26] MEDS: ISOSORBIDE MONO EXTENDED REL 30 MG TABCR PO SCH (09:00)
[2021-06-26] MEDS: LOSARTAN POTASSIUM 25 MG TAB PO SCH (09:00)
[2021-06-26] MEDS: CALCIUM 600MG + VIT D 400 IU TAB PO SCH (09:00)
--- NOTE | 2021-06-26 11:29 | Gastrointestinal Consultation ---
Date of Consultation June 26, 2021 Assessment & Plan (1) GI bleed: -CT abd/pelvis with po contrast today -Clear liquid diet on 06/27/2021 -Colonoscopy & EGD on 06/28/2021; Will place prep orders on 06/27/2021. -IV Protonix 40 mg BID -Continue to monitor H/H Supervising Physician Co-Signing Physician Notes I personally evaluated the patient and agree with the findings as documented by Opal Diaz, PAC Exam: Constitutional: WD/WN, vitals as above General: EOM intact bilaterally Neck: normal visual inspection Respiratory: normal respiratory effort, lungs clear to auscultation Cardiovascular: RRR, no murmur, no edema Gastrointestinal: abdomennormal to inspection, nondistended, soft, nontender, no hepatosplenomegaly Musculoskeletal: no cyanosis, head normal to inspection Skin: no rashes, warm and dry Neurologic: moves all extremities Psychiatric: A and O x3, euthymic affect History of Present Illness Reason for Consultation: Rectal bleeding Attending Physician: Margaret Jordan MD History of Present Illness Patient is an 81 yo female with PMH of CAD, HLD, chronic diastolic CHF, DM2, Afib on anticoagulation, tachy-joe syndrome, hyperparathyroidism, renal artery stenosis, RLS, pulmonary emphysema, Osteoporosis, lumbar disc herniation, COPD, and CKD3. She notes that she experienced lower abdominal cramping and significant hematochezia prior to coming to the ED. She reports that she has used Preparation H for this issue in the past wihtout success. She reports that she struggles with intermittent constipation. Her chart has a documented history of varicose veins of the rectum, but patient does not have more information about this. She uses laxatives on occasion. H/H has remained stable throughout her hospitalization thus far, currently at 12.4/36.2. BP is 171/68 at present. Hemoccult is positive. No pertinent family history. She denies heartburn, reflux, NSAID use, upper abdominal pain. She denies dark stools. Allergies Allergy/AdvReac Type Severity Reaction Status Date / Time chlorthalidone Allergy Severe Swelling Verified 05/01/21 13:43 of Lip/Tongue/Throat Penicillins Allergy Severe Swelling Verified 05/01/21 13:43 of Lip/Tongue/Throat MANDEEP Inhibitors Allergy Unknown Unknown Verified 05/01/21 13:43 atenolol Allergy Unknown Unknown Verified 05/01/21 13:43 trazodone Allergy Unknown Unknown Verified 05/01/21 13:43 Home Medications Medication Instructions Recorded Confirmed Type calcium citrate 250 mg 1 tab PO QAM tab 11/07/18 06/24/21 History calcium-vitamin D3 5 mcg (200 unit) tablet cranberry concentrate-ascorbic 1 cap PO DAILY cap 11/07/18 06/24/21 History acid 4,200 mg-20 mg capsule multivitamin 1 tab PO QAM 11/07/18 06/24/21 History nitroglycerin 0.4 mg sublingual 0.4 mg SL UD PRN #20 tab 09/22/20 06/24/21 Rx tablet albuterol sulfate 90 mcg/actuation 2 puff INH Q4H PRN #18 gm 10/06/20 06/24/21 Rx aerosol inhaler (Ventolin HFA) atenolol 50 mg tablet 50 mg PO QAM #90 tab 10/23/20 06/24/21 Rx sitagliptin 25 mg tablet (Januvia) 25 mg PO QAM #90 tab 12/26/20 06/24/21 Rx losartan 25 mg tablet 25 mg PO QAM #90 tab 01/09/21 06/24/21 Rx rivaroxaban 15 mg tablet (Xarelto) 15 mg PO .COMPLEX #90 tab 01/19/21 06/24/21 Rx simvastatin 20 mg tablet 20 mg PO HS #90 tab 03/06/21 06/24/21 Rx isosorbide mononitrate 30 mg 90 mg PO QAM #270 tab 04/23/21 06/24/21 Rx tablet,extended release 24 hr denosumab 60 mg/mL subcutaneous 60 mg SQ Q6MO #1 ml 06/15/21 06/24/21 Rx syringe (Prolia) amlodipine 10 mg tablet 10 mg PO DAILY 06/24/21 06/24/21 History hydrochlorothiazide 25 mg tablet 25 mg PO DAILY 06/24/21 06/24/21 History Patient History Medical History Acute anterior epistaxis Acute posterior epistaxis Anemia Atrial fibrillation permanent, now s/p PPM (2016) CAD (coronary artery disease) [place] (1992) CHF (congestive heart failure) follows with [facility] (Dr. Marcos) Chronic kidney disease, stage 3 follows with nephrology ([facility]/Dr. Richard) COPD (chronic obstructive pulmonary disease) 2L HS + occasionally PRN, [facility] COPD with asthma COPD with emphysema Deep vein thrombosis B/L LE (1967), Diabetes mellitus, type 2 NIDDM Dysfunction of left eustachian tube Hearing deficit History of kidney cancer s/p L nephrectomy (1997) Hyperlipidemia controlled Hypertension controlled Insomnia Intractable back pain Leg swelling Mixed conductive and sensorineural hearing loss of left ear with restricted hearing of right ear Osteoarthritis Osteoporosis Pacemaker Implanted 2017, [employer], last check 09/2019 Pulmonary nodule per records Restless leg syndrome Syncope UTI (urinary tract infection) Vitamin D deficiency Surgical History History of cardiac cath 10+ years ago, no stents History of cholecystectomy History of colonoscopy History of hip surgery R/L NABEEL History of myringotomy + Left ear tube removal: 06/09/19: LMA#4 atraumatic at [facility] History of nephrectomy left History of vaginal hysterectomy Hx of bilateral cataract extraction Status post placement of cardiac pacemaker 2016 Family History Brother Hypertension Mother Cardiac disorder Sister Lung cancer Aunt Lung cancer Father No problems noted. Unknown Family history of allergies Environmental allergies Denies family history of Ovarian cancer Prostate cancer Myocardial infarction Breast cancer Colorectal cancer Social History Smoking Status: Never smoker Tobacco Type: Cigarettes Age Started Using Tobacco: 26; Age Quit Using Tobacco: 55; packs per day: 1; Years Smoked: 29; Cigarettes Per Day: 20; Number of Years Since Quit: 25; Second Hand Exposure: No; Hx Alcohol Use: No Hx Substance Use: No Preferred Language: Kinyarwanda Communication Ability: Effective Visual Impairment: No Limitations Hearing Ability: Hard of Hearing Bss Solution Architect Required: No Beliefs That Will Affect Care: None marital status: / Current Living Situation: Family Current Living Situation Comment: [facility] 2 [facility]. current occupational status: retired current occupation: worked at [employer] Other Information That Helps Us Care for You: No Feels Safe at Home: Yes Childhood Exposure to Second-Hand Smoke: No Diet Comment: Low sugar/ Sugar free options when possible caffeine: Yes (2 cups of coffee daily ) Dental Care, Regularly: No Physical Activity Frequency: Daily Seatbelt Use: always Sunscreen Use: Yes Assistive Devices: Cane and Walker Review of Systems Constitutional: no fever and no chills Respiratory: no cough and no dyspnea Cardiovascular: no chest pain Gastrointestinal: + abdominal pain (LLQ, improving) Integumentary: no problem reported Psychiatric: no problem reported Hematologic / Lymphatic: no unexplained weight loss Physical Exam Constitutional: well developed Respiratory: normal respiratory effort Cardiovascular: Rate/Rhythm: regular rate Gastrointestinal (Abdomen): Inspection/Auscultation: abdomen normal to inspection Percussion/Palpation: abdomen soft; abdomen nontender Musculoskeletal: Head/Neck/Chest: normocephalic Psychiatric: Orientation: alert and oriented x 3 Results & Data ([facility]) Vital Signs (Past 12 Hours) Vital Signs Temp Pulse Pulse Resp BP BP Pulse Ox 06/26/21 07:34 36.7 C 59 L 16 171/68 H 94 06/26/21 02:49 36.9 C 63 18 158/75 H 94 06/26/21 01:46 61 PG Care Time/CCT Total # of Minutes Spent Total Time Spent with Patient: Total time spent is greater than 50% in coordination of care (as documented) at patient's floor/unit and/or counseling patient: Coding Level of Care Code 26049 Initial Inpt Care Lvl 3 Diagnoses GI bleed K92.2
--- NOTE | 2021-06-26 13:00 | Hospitalist Progress Note ---
Date of Service June 26, 2021 Assessment & Plan (1) GI bleed: Plan: -Recurrence; given some abdominal discomfort and ischemic colitis in the differentialtreatment is generally conservative GI consult noted and appreciated (2) Atrial fibrillation: Plan: Continue amlodipine 10 mg every morning, atenolol 50 mg every morning. At present anticoagulation on hold; if it is a contraindication then may be a candidate for [facility] ; clear liquids for now (3) CAD (coronary artery disease): Plan: -[place] in 1992. Stable today, no complaints of chest pain. -Continue simvastatin, losartan, isosorbide mononitrate, atenolol. 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 -Continue Trelegy once daily. -Albuterol with DuoNebs PRN. -SpO2 goal 88-92%. (5) Chronic diastolic CHF (congestive heart failure): Plan: -ECHO 02/25/2020--> EF 55-60%, severely dilated left atrium, right atrium is moderately to severely dilated, mild mitral regurgitation. Follows with Dr. Marcos. -Does not appear volume overloaded today. -Continue Lasix 20 mg daily. (6) Diabetes mellitus: Plan: -Sugars acceptable; no change (7) Hypertension: Plan: -Fluctuating parameters; no changeobserve (8) Chronic kidney disease, stage 3: Plan: -Fluctuating parameters, observe (9) Hyperlipidemia: Plan: -Continue simvastatin 20mg daily. 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 (11) Insomnia: Plan: -Continue zolpidem. Plan: SCDs Full code Admission and Anticipated Discharge Date Admission Date: June 24, 2021 Subjective Follow-up of hematochezia; yesterday had some nonspecific abdominal discomfortnone today but recurrence of hematochezia Physical Exam Physical Exam: Constitutional and general: No acute distress, looks biologic age Head and face: No puffiness, atraumatic Eyes: No scleral icterus, extraocular movements normal Neck: Supple, no JVD Musculoskeletal: No acute joint swelling, no bony abnormalities Skin/dermatologic/integument: No rash, no purpura Hematologic and lymphatic: pallor none, no petechia Gastrointestinal/abdomen: Nondistended, soft, nonacute Neurologic: Cranial nerves intact, nonfocal Psychiatry: Awake, alert, pleasant, communicative Cardiovascular: Heart rhythm regular, no rub, no murmur, no gallop Respiratory: Chest movements equal, no use of accessory muscles, no adventitious sounds Extremities: No edema, no cyanosis Results & Data Results & Data ([facility]) Vital Signs (Past 12 Hours) Vital Signs Temp Pulse Pulse Resp BP BP Pulse Ox 06/26/21 07:34 36.7 C 59 L 16 171/68 H 94 06/26/21 02:49 36.9 C 63 18 158/75 H 94 06/26/21 01:46 61 Laboratory Results Laboratory Results - last 24 hr 06/25/21 06/25/21 06/26/21 16:28 20:15 07:46 WBC 7.19 RBC 4.09 L Hgb 12.4 Hct 36.2 L MCV 88.5 MCH 30.3 MCHC 34.3 RDW Std Deviation 44.1 RDW Coeff of Stephane 13.6 Plt Count 177 MPV 10.3 Immature Gran % (Auto) 0.4 Neut % (Auto) 59.9 Lymph % (Auto) 27.7 [place] % (Auto) 8.1 Eos % (Auto) 3.3 Baso % (Auto) 0.6 Neut # (Auto) 4.31 Lymph # (Auto) 1.99 [place] # (Auto) 0.58 Eos # (Auto) 0.24 Baso # (Auto) 0.04 Immature Gran # (Auto) 0.03 H Sodium Potassium Chloride Carbon Dioxide Anion Gap BUN Creatinine Est Cr Clr Drug Dosing Est GFR ( Amer) Est GFR (Non-Af Amer) BUN/Creatinine Ratio Glucose POC Glucose 108 H 112 H Calcium 06/26/21 06/26/21 06/26/21 07:46 07:59 11:47 WBC RBC Hgb Hct MCV MCH MCHC RDW Std Deviation RDW Coeff of Stephane Plt Count MPV Immature Gran % (Auto) Neut % (Auto) Lymph % (Auto) [place] % (Auto) Eos % (Auto) Baso % (Auto) Neut # (Auto) Lymph # (Auto) [place] # (Auto) Eos # (Auto) Baso # (Auto) Immature Gran # (Auto) Sodium 137 Potassium 4.0 Chloride 105 Carbon Dioxide 26 Anion Gap 6 BUN 20 Creatinine 1.25 H Est Cr Clr Drug Dosing 36.7 Est GFR ( Amer) 46.1 Est GFR (Non-Af Amer) 39.7 BUN/Creatinine Ratio 16.0 Glucose 116 H POC Glucose 124 H 125 H Calcium 8.7 PG Care Time/CCT Total # of Minutes Spent Total Time Spent with Patient: Total time spent is greater than 50% in coordination of care (as documented) at patient's floor/unit and/or counseling patient: Coding Level of Care Code 12920 Subseq Hosp Care Lvl 2 Diagnoses GI bleed K92.2 Atrial fibrillation I48.91 CAD (coronary artery disease) I25.10 Chronic respiratory failure with hypoxia J96.11 Chronic diastolic CHF (congestive heart failure) I50.32 Diabetes mellitus E11.9 Hypertension I10 Chronic kidney disease, stage 3 N18.3 Hyperlipidemia E78.5 Hyperlipidemia type: unspecified Bradycardia R00.1 Insomnia G47.00 (1) Hyperlipidemia Hyperlipidemia type: unspecified Qualified Code(s): E78.5 - Hyperlipidemia, unspecified
--- NOTE | 2021-06-26 16:57 | CT Scan Report ---
CT abd pelvis oral con only CLINICAL HISTORY: LLQ pain, rectal bleeding COMPARISON STUDY: No previous studies for comparison. CT DOSE: 756.44 mGy.cm TECHNIQUE: Standard CT of the Abdomen and Pelvis was performed without IV contrast. The patient rece ived oral contrast. A dose lowering technique was utilized adhering to the principles of ALARA. FINDINGS: Lung base: The lung bases are clear. The heart is enlarged with a pacer in place. There is also coron gabino artery calcification and calcification at the root of the aorta. Abdominal cavity: There is no evidence for abdominal mass, adenopathy or ascites. Liver: The liver is homogeneous in attenuation on these limited noncontrast images.. Spleen: The spleen is homogeneous in attenuation on these limited noncontrast images. Pancreas: The pancreas is homogeneous in attenuation on these limited noncontrast images. Gall Bladder: The gallbladder is absent. Adrenal glands: The adrenal glands are normal in size and attenuation on these limited noncontrast im ages. Kidneys: There is evidence for left nephrectomy with surgical clips present in the left renal bed. Th ere is no evidence for a recurrent mass or fluid collection at this site. There is compensatory hyper trophy of the right kidney. There is renal vascular calcification present on the right. There is no d efinite renal calculus or hydronephrosis. There is no gross renal mass on these limited noncontrast i mages. Bowel: Oral contrast is present within the stomach, throughout the small bowel and within the colon t o the level of hepatic flexure. The bowel loops are normally placed within the abdomen and pelvis wit hout evidence for dilatation or obstruction. There is mild sigmoid diverticulosis without evidence fo r diverticulitis. There are no inflammatory changes present. There is no evidence for free air. There is no evidence for an inflamed appendix. Bladder: There is no evidence for focal bladder wall thickening, calculus or diverticulum. There is i maging artifact present related to bilateral hip replacements. : There is no evidence for pelvic mass or adenopathy. There is evidence for previous hysterectomy. Vasculature: There is no evidence for focal aneurysmal dilatation of the abdominal aorta. Extensive a therosclerotic calcification is present. Osseous structures: There is no acute osseous pathology. Prominent degenerative changes are present i nvolving the lumbar spine. IMPRESSION: 1. Mild sigmoid diverticulosis without evidence for diverticulitis. 2. Otherwise, no acute intra-abdominal or pelvic abnormality on these limited noncontrast images. 3. Status post left nephrectomy. 4. Additional nonacute findings are delineated above. ACT 112: Negative or not required by law. Electronically signed by: Kayden Bergman M.D. 06/26/2021 4:56 PM
[2021-06-26] MEDS: DOCUSATE CALCIUM 240 MG CAPSULE PO SCH (20:32)
[2021-06-26] MEDS: SIMVASTATIN 20 MG TAB PO SCH (20:32)
[2021-06-26] MEDS: PANTOprazole 40 MG in SYRINGE 0 ML IV SCH (21:18)
[2021-06-26] MEDS: ZOLPIDEM TARTRATE 5 MG TAB PO SCH (22:26)
[2021-06-27 08:14] LABS: Basophils # (auto) 0.03 K/uL (0-0.2); Basophils % (auto) 0.4 %; Eosinophils # (auto) 0.17 K/uL (0-0.5); Eosinophils % (auto) 2.2 %; Hematocrit (blood only) 38.8 % (37-47); Hemoglobin 13.4 g/dL (12.0-16.0); Immature Granulocytes # (auto) 0.02 K/uL (0.00-0.02); Immature Granulocytes % (auto) 0.3 %; Lymphocytes # (auto) 2.05 K/uL (1.2-3.4); Lymphocytes % (auto) 27.1 %; Mean Corpuscular Hemoglobin 30.8 pg (25-34); Mean Corpuscular Hgb Conc 34.5 g/dL (32-36); Mean Corpuscular Volume 89.2 fL (80-100); Mean Platelet Volume 10.2 fL (7.4-10.4); Monocytes # (auto) 0.56 K/uL (0.11-0.59); Monocytes % (auto) 7.4 %; Neutrophils # (auto) 4.74 K/uL (1.4-6.5); Neutrophils % (auto) 62.6 %; Platelet Count 171 K/uL (130-400); RDW Coefficient of Variation 13.4 % (11.5-14.5); RDW Standard Deviation 44.1 fL (36.4-46.3); Red Blood Count 4.35 M/uL (4.2-5.4); White Blood Count 7.57 K/uL (4.8-10.8)
[2021-06-27 08:31] LABS: BUN Creatinine Ratio 16.7 (10-20); Calcium 8.8 mg/dl (8.5-10.1); Est GFR (African American) 51.5 ml/min; Est GFR (Non-African American) 44.4 ml/min; Potassium 4.1 mmol/L (3.5-5.1)
[2021-06-27] MEDS: INSULIN ASPART PER UNIT SC SCH ×4 (08:34→21:02)
[2021-06-27] MEDS: DOCUSATE CALCIUM 240 MG CAPSULE PO SCH ×2 (08:35→21:02)
[2021-06-27] MEDS: PANTOprazole 40 MG in SYRINGE 0 ML IV SCH ×2 (08:35→21:03)
[2021-06-27] MEDS: CALCIUM 600MG + VIT D 400 IU TAB PO SCH (08:36)
[2021-06-27] MEDS: amLODIPine BESYLATE 5 MG TAB PO SCH (08:36)
[2021-06-27] MEDS: ISOSORBIDE MONO EXTENDED REL 30 MG TABCR PO SCH (08:37)
[2021-06-27] MEDS: FUROSEMIDE 20 MG TAB PO SCH (08:37)
[2021-06-27] MEDS: LOSARTAN POTASSIUM 25 MG TAB PO SCH (08:37)
[2021-06-27] MEDS: ATENOLOL 50 MG TABLET PO SCH (08:37)
[2021-06-27] MEDS: FLUTICASONE FUROATE 100MCG 14 PUFFS/INHALER INH SCH (08:38)
[2021-06-27] MEDS: UMECLIDINIUM/VILANTEROL 62.5/25MCG 7 PUFFS/INHALER INH SCH (08:38)
--- NOTE | 2021-06-27 10:29 | Gastroenterology Progress Note ---
Date of Service June 27, 2021 Assessment & Plan (1) GI bleed: Plan: -Continue to monitor for further bleeding & continue to monitor H/H -Clear liquid diet today -NPO after midnight with exception of bowel preparation -Colonoscopy & EGD tomorrow before making decisions about resuming anticoagulation Admission and Anticipated Discharge Date Admission Date: June 26, 2021 Subjective Patient is an 81 yo anticoagulated female with rectal bleeding and LLQ pain. Pain & bleeding have resolved. H/H normal at 13.4/38.8. CT unremarkable for acute abnormalities. Review of Systems Gastrointestinal: no abdominal pain, no constipation, no diarrhea/loose stools and no blood in stools Physical Exam Constitutional: well developed Respiratory: normal respiratory effort Gastrointestinal (Abdomen): Inspection/Auscultation: abdomen normal to inspection Musculoskeletal: Head/Neck/Chest: normocephalic Psychiatric: Orientation: alert and oriented x 3 Results & Data Results & Data ([facility]) Vital Signs (Past 12 Hours) Vital Signs Temp Pulse Pulse Resp BP BP Pulse Ox 06/27/21 07:30 36.7 C 61 16 165/55 H 95 06/27/21 03:08 37.1 C 61 18 165/58 H 94 06/27/21 00:00 60 06/26/21 22:58 36.7 C 60 18 126/69 95 PG Care Time/CCT Total # of Minutes Spent Total Time Spent with Patient: Total time spent is greater than 50% in coordination of care (as documented) at patient's floor/unit and/or counseling patient: Coding Level of Care Code 36146 Subseq Hosp Care Lvl 3 Diagnoses GI bleed K92.2
--- NOTE | 2021-06-27 11:38 | Hospitalist Progress Note ---
Date of Service June 27, 2021 Assessment & Plan (1) GI bleed: Plan: -Endoscopy in a.m.; diverticular bleed appears most likely, severe internal hemorrhoid differential, ischemic colitis small differential (2) Atrial fibrillation: Plan: Status post pacemaker, clinically regular; no change in meds At present anticoagulation on hold; if it is a contraindication then may be a candidate for [facility] Endoscopy [place] (3) CAD (coronary artery disease): Plan: -[place] in 1992. Stable today, no complaints of chest pain. -Continue simvastatin, losartan, isosorbide mononitrate, atenolol. 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 -Continue Trelegy once daily. -Albuterol with DuoNebs PRN. -SpO2 goal 88-92%. (5) Chronic diastolic CHF (congestive heart failure): Plan: -ECHO 02/25/2020--> EF 55-60%, severely dilated left atrium, right atrium is moderately to severely dilated, mild mitral regurgitation. Follows with Dr. Marcos. -Does not appear volume overloaded today. -Continue Lasix 20 mg daily. (6) Diabetes mellitus: Plan: -Sugars acceptable; no change (7) Hypertension: Plan: -Fluctuating parameters; no changeobserve (8) Chronic kidney disease, stage 3: Plan: -Fluctuating parametersin general stable observe (9) Hyperlipidemia: Plan: -Continue simvastatin 20mg daily. 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 (11) Insomnia: Plan: -Continue zolpidem. Plan: SCDs Full code Admission and Anticipated Discharge Date Admission Date: June 26, 2021 Subjective Follow-up of presentation with hematochezia, no more bleeding after yesterday a.m.; no complaints at present Physical Exam Physical Exam: Constitutional and general: No acute distress, looks biologic age Head and face: No puffiness, atraumatic Eyes: No scleral icterus, extraocular movements normal Neck: Supple, no JVD Musculoskeletal: No acute joint swelling, no bony abnormalities Skin/dermatologic/integument: No rash, no purpura Hematologic and lymphatic: pallor none, no petechia Gastrointestinal/abdomen: Nondistended, soft, nonacute Neurologic: Cranial nerves intact, nonfocal Psychiatry: Awake, alert, pleasant, communicative Cardiovascular: Heart rhythm regular, no rub, no murmur, no gallop Respiratory: Chest movements equal, no use of accessory muscles, no adventitious sounds Extremities: No edema, no cyanosis; prominent varicosities Results & Data Results & Data ([facility]) Vital Signs (Past 12 Hours) Vital Signs Temp Pulse Pulse Resp BP BP Pulse Ox 06/27/21 10:56 36.4 C L 61 16 122/66 95 06/27/21 07:30 36.7 C 61 16 165/55 H 95 06/27/21 03:08 37.1 C 61 18 165/58 H 94 06/27/21 00:00 60 Laboratory Results Laboratory Results - last 24 hr 06/26/21 06/26/21 06/26/21 11:47 16:48 20:15 WBC RBC Hgb Hct MCV MCH MCHC RDW Std Deviation RDW Coeff of Stephane Plt Count MPV Immature Gran % (Auto) Neut % (Auto) Lymph % (Auto) [place] % (Auto) Eos % (Auto) Baso % (Auto) Neut # (Auto) Lymph # (Auto) [place] # (Auto) Eos # (Auto) Baso # (Auto) Immature Gran # (Auto) Sodium Potassium Chloride Carbon Dioxide Anion Gap BUN Creatinine Est Cr Clr Drug Dosing Est GFR ( Amer) Est GFR (Non-Af Amer) BUN/Creatinine Ratio Glucose POC Glucose 125 H 118 H 108 H Calcium 06/27/21 06/27/21 06/27/21 07:48 07:53 07:53 WBC 7.57 RBC 4.35 Hgb 13.4 Hct 38.8 MCV 89.2 MCH 30.8 MCHC 34.5 RDW Std Deviation 44.1 RDW Coeff of Stephane 13.4 Plt Count 171 MPV 10.2 Immature Gran % (Auto) 0.3 Neut % (Auto) 62.6 Lymph % (Auto) 27.1 [place] % (Auto) 7.4 Eos % (Auto) 2.2 Baso % (Auto) 0.4 Neut # (Auto) 4.74 Lymph # (Auto) 2.05 [place] # (Auto) 0.56 Eos # (Auto) 0.17 Baso # (Auto) 0.03 Immature Gran # (Auto) 0.02 Sodium 136 Potassium 4.1 Chloride 104 Carbon Dioxide 29 Anion Gap 3 BUN 19 Creatinine 1.14 Est Cr Clr Drug Dosing 40.0 Est GFR ( Amer) 51.5 Est GFR (Non-Af Amer) 44.4 BUN/Creatinine Ratio 16.7 Glucose 105 H POC Glucose 108 H Calcium 8.8 06/27/21 11:30 WBC RBC Hgb Hct MCV MCH MCHC RDW Std Deviation RDW Coeff of Stephane Plt Count MPV Immature Gran % (Auto) Neut % (Auto) Lymph % (Auto) [place] % (Auto) Eos % (Auto) Baso % (Auto) Neut # (Auto) Lymph # (Auto) [place] # (Auto) Eos # (Auto) Baso # (Auto) Immature Gran # (Auto) Sodium Potassium Chloride Carbon Dioxide Anion Gap BUN Creatinine Est Cr Clr Drug Dosing Est GFR ( Amer) Est GFR (Non-Af Amer) BUN/Creatinine Ratio Glucose POC Glucose 126 H Calcium PG Care Time/CCT Total # of Minutes Spent Total Time Spent with Patient: Total time spent is greater than 50% in coordination of care (as documented) at patient's floor/unit and/or counseling patient: Coding Level of Care Code 14679 Subseq Hosp Care Lvl 2 Diagnoses GI bleed K92.2 Atrial fibrillation I48.91 CAD (coronary artery disease) I25.10 Chronic respiratory failure with hypoxia J96.11 Chronic diastolic CHF (congestive heart failure) I50.32 Diabetes mellitus E11.9 Hypertension I10 Chronic kidney disease, stage 3 N18.3 Hyperlipidemia E78.5 Hyperlipidemia type: unspecified Bradycardia R00.1 Insomnia G47.00 (1) Hyperlipidemia Hyperlipidemia type: unspecified Qualified Code(s): E78.5 - Hyperlipidemia, unspecified
[2021-06-27] MEDS ORDERED: bisacodyL 5 MG TABEC PO ONE (15:00)
[2021-06-27] MEDS: POLYETHYLENE (MIRALAX) 17 GM PACK PO SCH (17:47)
[2021-06-27] MEDS: SIMVASTATIN 20 MG TAB PO SCH (21:02)
[2021-06-27] MEDS: ACETAMINOPHEN 325 MG TAB PO PRN (22:24)
[2021-06-27] MEDS: ZOLPIDEM TARTRATE 5 MG TAB PO SCH (22:25)
[2021-06-28] MEDS: POLYETHYLENE (MIRALAX) 17 GM PACK PO SCH (01:34)
[2021-06-28] MEDS ORDERED: Nursing to Pharmacy Communication SCH (07:00)
[2021-06-28] MEDS: INSULIN ASPART PER UNIT SC SCH ×3 (07:02→18:31)
[2021-06-28 07:31] LABS: Basophils # (auto) 0.02 K/uL (0-0.2); Basophils % (auto) 0.3 %; Eosinophils # (auto) 0.16 K/uL (0-0.5); Hematocrit (blood only) 38.2 % (37-47); Hemoglobin 13.1 g/dL (12.0-16.0); Immature Granulocytes # (auto) 0.06 K/uL (0.00-0.02); Immature Granulocytes % (auto) 0.8 %; Lymphocytes % (auto) 20.3 %; Mean Corpuscular Hemoglobin 30.1 pg (25-34); Mean Corpuscular Hgb Conc 34.3 g/dL (32-36); Mean Corpuscular Volume 87.8 fL (80-100); Mean Platelet Volume 10.4 fL (7.4-10.4); Monocytes # (auto) 0.73 K/uL (0.11-0.59); Monocytes % (auto) 9.3 %; Neutrophils % (auto) 67.3 %; Platelet Count 176 K/uL (130-400); RDW Coefficient of Variation 13.3 % (11.5-14.5); RDW Standard Deviation 42.7 fL (36.4-46.3); Red Blood Count 4.35 M/uL (4.2-5.4); White Blood Count 7.87 K/uL (4.8-10.8)
[2021-06-28 08:00] LABS: Calcium 8.9 mg/dl (8.5-10.1); Creatinine Clr Calc Pharmacy 30.9 ml/min; Est GFR (African American) 37.9 ml/min; Est GFR (Non-African American) 32.7 ml/min; Potassium 3.7 mmol/L (3.5-5.1)
[2021-06-28] MEDS: PANTOprazole 40 MG in SYRINGE 0 ML IV SCH ×2 (08:19→20:52)
[2021-06-28] MEDS: ATENOLOL 50 MG TABLET PO SCH (08:20)
[2021-06-28] MEDS: FUROSEMIDE 20 MG TAB PO SCH (08:20)
[2021-06-28] MEDS: LOSARTAN POTASSIUM 25 MG TAB PO SCH (08:21)
[2021-06-28] MEDS: amLODIPine BESYLATE 5 MG TAB PO SCH (08:21)
[2021-06-28] MEDS: CALCIUM 600MG + VIT D 400 IU TAB PO SCH (08:21)
[2021-06-28] MEDS: ISOSORBIDE MONO EXTENDED REL 30 MG TABCR PO SCH (08:21)
[2021-06-28] MEDS: FLUTICASONE FUROATE 100MCG 14 PUFFS/INHALER INH SCH (08:22)
[2021-06-28] MEDS: DOCUSATE CALCIUM 240 MG CAPSULE PO SCH ×2 (08:22→20:52)
[2021-06-28] MEDS: UMECLIDINIUM/VILANTEROL 62.5/25MCG 7 PUFFS/INHALER INH SCH (08:23)
--- NOTE | 2021-06-28 10:51 | History & Physical Bridge Note ---
Date of Service June 28, 2021 History & Physical Bridge Note I have examined the patient, reviewed the History & Physical and in the interval since the performance of the History & Physical I have noted the following changes of clinical significance: no changes noted Patient's hemoglobin and hematocrit remain normal at 13.1/38.2. She has completed her bowel prep and is NPO. She denies any further GI bleeding during the prep. Keep NPO & Proceed with EGD & colonoscopy today.
[2021-06-28] MEDS: ACETAMINOPHEN 325 MG TAB PO PRN (12:56)
--- NOTE | 2021-06-28 13:56 | Hospitalist Progress Note ---
Date of Service June 28, 2021 Assessment & Plan (1) GI bleed: Plan: -Endoscopy today; diverticular bleed appears most likely, severe internal hemorrhoid differential, ischemic colitis small differential (2) Atrial fibrillation: Plan: Status post pacemaker, clinically regular; no change in meds At present anticoagulation on hold; if it is a contraindication then may be a candidate for Watchman's (3) CAD (coronary artery disease): Plan: -LA in 1992. Stable today, no complaints of chest pain. -Continue simvastatin, losartan, isosorbide mononitrate, atenolol. 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 -Continue Trelegy once daily. -Albuterol with DuoNebs PRN. -SpO2 goal 88-92%. (5) Chronic diastolic CHF (congestive heart failure): Plan: -ECHO 02/25/2020--> EF 55-60%, severely dilated left atrium, right atrium is moderately to severely dilated, mild mitral regurgitation. Follows with Dr. Marcos. -Does not appear volume overloaded today. -Continue Lasix 20 mg daily. (6) Diabetes mellitus: Plan: -Sugars acceptable; no change (7) Hypertension: Plan: -Fluctuating parameters; no changeobserve (8) Chronic kidney disease, stage 3: Plan: -Fluctuating parameters; today's creatinine noted; general stable observe (9) Hyperlipidemia: Plan: -Continue simvastatin 20mg daily. 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 (11) Insomnia: Plan: -Continue zolpidem. Plan: SCDs Full code Admission and Anticipated Discharge Date Admission Date: June 26, 2021 Subjective Follow-up of presentation with hematochezia, no more bleeding other than minor when wiping Endoscopy today Physical Exam Physical Exam: Constitutional and general: No acute distress, looks biologic age Head and face: No puffiness, atraumatic Eyes: No scleral icterus, extraocular movements normal Neck: Supple, no JVD Musculoskeletal: No acute joint swelling, no bony abnormalities Skin/dermatologic/integument: No rash, no purpura Hematologic and lymphatic: pallor none, no petechia Gastrointestinal/abdomen: Nondistended, soft, nonacute Neurologic: Cranial nerves intact, nonfocal Psychiatry: Awake, alert, pleasant, communicative Cardiovascular: Heart rhythm regular, no rub, no murmur, no gallop Respiratory: Chest movements equal, no use of accessory muscles, no adventitious sounds Extremities: No edema, no cyanosis; prominent varicosities Results & Data Results & Data ([facility]) Vital Signs (Past 12 Hours) Vital Signs Temp Pulse Resp BP Pulse Ox 06/28/21 07:27 36.4 C L 61 16 167/71 H 98 Laboratory Results Laboratory Results - last 24 hr 06/27/21 06/27/21 06/28/21 16:42 20:11 06:41 WBC RBC Hgb Hct MCV MCH MCHC RDW Std Deviation RDW Coeff of Stephane Plt Count MPV Immature Gran % (Auto) Neut % (Auto) Lymph % (Auto) [place] % (Auto) Eos % (Auto) Baso % (Auto) Neut # (Auto) Lymph # (Auto) [place] # (Auto) Eos # (Auto) Baso # (Auto) Immature Gran # (Auto) Sodium Potassium Chloride Carbon Dioxide Anion Gap BUN Creatinine Est Cr Clr Drug Dosing Est GFR ( Amer) Est GFR (Non-Af Amer) BUN/Creatinine Ratio Glucose POC Glucose 101 H 141 H 138 H Calcium 06/28/21 06/28/21 06/28/21 06:56 06:56 12:31 WBC 7.87 RBC 4.35 Hgb 13.1 Hct 38.2 MCV 87.8 MCH 30.1 MCHC 34.3 RDW Std Deviation 42.7 RDW Coeff of Stephane 13.3 Plt Count 176 MPV 10.4 Immature Gran % (Auto) 0.8 Neut % (Auto) 67.3 Lymph % (Auto) 20.3 [place] % (Auto) 9.3 Eos % (Auto) 2.0 Baso % (Auto) 0.3 Neut # (Auto) 5.30 Lymph # (Auto) 1.60 [place] # (Auto) 0.73 H Eos # (Auto) 0.16 Baso # (Auto) 0.02 Immature Gran # (Auto) 0.06 H Sodium 131 L Potassium 3.7 Chloride 98 Carbon Dioxide 23 Anion Gap 10 BUN 22 Creatinine 1.47 H D Est Cr Clr Drug Dosing 30.9 Est GFR ( Amer) 37.9 Est GFR (Non-Af Amer) 32.7 BUN/Creatinine Ratio 15.0 Glucose 128 H POC Glucose 161 H Calcium 8.9 PG Care Time/CCT Total # of Minutes Spent Total Time Spent with Patient: Total time spent is greater than 50% in coordination of care (as documented) at patient's floor/unit and/or counseling patient: Coding Level of Care Code 48626 Subseq Hosp Care Lvl 2 Diagnoses GI bleed K92.2 Atrial fibrillation I48.91 CAD (coronary artery disease) I25.10 Chronic respiratory failure with hypoxia J96.11 Chronic diastolic CHF (congestive heart failure) I50.32 Diabetes mellitus E11.9 Hypertension I10 Chronic kidney disease, stage 3 N18.3 Hyperlipidemia E78.5 Hyperlipidemia type: unspecified Bradycardia R00.1 Insomnia G47.00 (1) Hyperlipidemia Hyperlipidemia type: unspecified Qualified Code(s): E78.5 - Hyperlipidemia, unspecified
--- NOTE | 2021-06-28 14:08 | Anesthesiology Consultation ---
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 Nirali Campoverde MD Height/Weight Height: 5 ft 5 in Weight: 83.3 kg Allergies Allergy/AdvReac Type Severity Reaction Status Date / Time chlorthalidone Allergy Severe Swelling Verified 05/01/21 13:43 of Lip/Tongue/Throat Penicillins Allergy Severe Swelling Verified 05/01/21 13:43 of Lip/Tongue/Throat MANDEEP Inhibitors Allergy Unknown Unknown Verified 05/01/21 13:43 atenolol Allergy Unknown Unknown Verified 05/01/21 13:43 trazodone Allergy Unknown Unknown Verified 05/01/21 13:43 Medications Home Medications Medication Instructions Recorded Confirmed Last Taken calcium citrate 250 mg 1 tab PO QAM tab 11/07/18 06/24/21 02/26/20 calcium-vitamin D3 5 mcg (200 unit) tablet cranberry concentrate-ascorbic 1 cap PO DAILY cap 11/07/18 06/24/21 02/26/20 acid 4,200 mg-20 mg capsule multivitamin 1 tab PO QAM 11/07/18 06/24/21 02/26/20 nitroglycerin 0.4 mg sublingual 0.4 mg SL UD PRN #20 tab 09/22/20 06/24/21 Unknown tablet albuterol sulfate 90 mcg/actuation 2 puff INH Q4H PRN #18 gm 10/06/20 06/24/21 Unknown aerosol inhaler (Ventolin HFA) atenolol 50 mg tablet 50 mg PO QAM #90 tab 10/23/20 06/24/21 Unknown sitagliptin 25 mg tablet (Januvia) 25 mg PO QAM #90 tab 12/26/20 06/24/21 Unknown losartan 25 mg tablet 25 mg PO QAM #90 tab 01/09/21 06/24/21 Unknown rivaroxaban 15 mg tablet (Xarelto) 15 mg PO .COMPLEX #90 tab 01/19/21 06/24/21 Unknown simvastatin 20 mg tablet 20 mg PO HS #90 tab 03/06/21 06/24/21 Unknown isosorbide mononitrate 30 mg 90 mg PO QAM #270 tab 04/23/21 06/24/21 Unknown tablet,extended release 24 hr denosumab 60 mg/mL subcutaneous 60 mg SQ Q6MO #1 ml 06/15/21 06/24/21 Unknown syringe (Prolia) amlodipine 10 mg tablet 10 mg PO DAILY 06/24/21 06/24/21 Unknown hydrochlorothiazide 25 mg tablet 25 mg PO DAILY 06/24/21 06/24/21 Unknown Active Medications Generic Name Dose Route Start Last Admin Trade Name Freq PRN Reason Stop Dose Admin Acetaminophen 650 mg 06/24/21 14:27 06/28/21 12:56 Acetaminophen 325 Mg Tab PO 07/24/21 14:26 650 mg Q4H PRN Administration Pain or Fever Amlodipine Besylate 10 mg 06/25/21 09:00 06/28/21 08:21 Amlodipine Besylate 5 Mg Tab PO 07/25/21 08:59 10 mg QAM LUIS Administration Atenolol 50 mg 06/25/21 09:00 06/28/21 08:20 Atenolol 50 Mg Tablet PO 07/25/21 08:59 50 mg QAM LUIS Administration Docusate Calcium 240 mg 06/26/21 21:00 06/28/21 08:22 Docusate Calcium 240 Mg Capsule PO 07/26/21 20:59 240 mg BID LUIS Administration Fluticasone Furoate 1 puffs 06/25/21 09:00 06/28/21 08:22 Fluticasone Furoate 100mcg 14 Puffs/Inhaler INH 07/25/21 08:59 1 puffs QAM LUIS Administration Protocol Furosemide 20 mg 06/25/21 09:00 06/28/21 08:20 Furosemide 20 Mg Tab PO 07/25/21 08:59 20 mg QAM LUIS Administration Pantoprazole Sodium 40 mg/ 10 mls @ 5 mls/min 06/26/21 21:00 06/28/21 08:19 Syringe IV 07/26/21 20:59 5 mls/min BID LUIS Administration Insulin Aspart 0 units 06/28/21 12:00 06/28/21 13:00 Insulin Aspart Per Unit SC 07/24/21 16:29 1 units Q6 LUIS Administration Isosorbide Mononitrate 90 mg 06/25/21 09:00 06/28/21 08:21 Isosorbide Benson Extended Rel 30 Mg Tabcr PO 07/25/21 08:59 90 mg QAM LUIS Administration Losartan Potassium 25 mg 06/25/21 09:00 06/28/21 08:21 Losartan Potassium 25 Mg Tab PO 07/25/21 08:59 25 mg QAM LUIS Administration Multivitamins/Minerals 0.5 tab 06/25/21 09:00 06/28/21 08:21 Calcium 600mg + Vit D 400 Iu Tab PO 07/25/21 08:59 0.5 tab QAM LUIS Administration Simvastatin 20 mg 06/24/21 21:00 06/27/21 21:02 Simvastatin 20 Mg Tab PO 07/24/21 20:59 20 mg HS LUIS Administration Umeclidinium/Vilanterol 1 puffs 06/25/21 09:00 06/28/21 08:23 Umeclidinium/Vilanterol 62.5/25mcg 7 Puffs/Inhaler INH 07/25/21 08:59 1 puffs QAM LUIS Administration Zolpidem Tartrate 5 mg 06/24/21 21:00 06/27/21 22:25 Zolpidem Tartrate 5 Mg Tab PO 07/24/21 20:59 Not Given QPM LUIS Past Medical History Medical History (Updated 06/28/21 @ 14:08 by Swapnil Owen MD) Acute anterior epistaxis Acute posterior epistaxis Anemia Atrial fibrillation permanent, now s/p PPM (2016) CAD (coronary artery disease) [place] (1992) CHF (congestive heart failure) follows with [facility] (Dr. Marcos) Chronic kidney disease, stage 3 follows with [facility]rology [facility]Dr[facility] Richard) COPD (chronic obstructive pulmonary disease) 2L HS + occasionally PRN, follows with [facility] COPD with asthma COPD with emphysema Deep vein thrombosis B/L LE (1967), Diabetes mellitus, type 2 NIDDM Dysfunction of left eustachian tube Encounter for pre-operative examination Hearing deficit History of kidney cancer s/p L nephrectomy (1997) Hyperlipidemia controlled Hypertension controlled Insomnia Intractable back pain Leg swelling Mixed conductive and sensorineural hearing loss of left ear with restricted hearing of right ear Osteoarthritis Osteoporosis Pacemaker Implanted 2016, [employer], last check 09/2019 Pulmonary nodule per records Restless leg syndrome Syncope UTI (urinary tract infection) Vitamin D deficiency Past Family History Family History Brother Hypertension Mother Cardiac disorder Sister Lung cancer Aunt Lung cancer Father No problems noted. Unknown Family history of allergies Environmental allergies Denies family history of Ovarian cancer Prostate cancer Myocardial infarction Breast cancer Colorectal cancer Past Surgical History Surgical History History of cardiac cath 10+ years ago, no stents History of cholecystectomy History of colonoscopy History of hip surgery R/L NABEEL History of myringotomy + Left ear tube removal: 06/09/19: LMA#4 atraumatic at [facility] History of nephrectomy left History of vaginal hysterectomy Hx of bilateral cataract extraction Status post placement of cardiac pacemaker 2017 Social History Smoking Status: Never smoker tobacco type: cigarettes Smoking cigarettes per day: 20 Hx Alcohol Use: No Hx Substance Use: No substance use type: does not use Physical Exam Vital Signs Last Vital Signs Temp 36.4 C L 06/28/21 07:27 Pulse 61 06/28/21 07:27 Resp 16 06/28/21 07:27 BP 167/71 H 06/28/21 07:27 Pulse Ox 98 06/28/21 07:27 Testing Laboratory Results 06/28/21 06:56 06/28/21 06:56 PT 12.0 Seconds (9.0-12.0) 06/24/21 10:20 INR 1.1 (0.9-1.1) 06/24/21 10:20 APTT 32.0 Seconds (21.0-31.0) H 06/24/21 10:20 Hemoglobin A1c 6.3 % (4.5-5.6) H 06/25/21 07:44 Blood Type A Negative 06/24/21 10:51 Antibody Screen NEGATIVE 06/24/21 10:51 06/28/21 06/28/21 12:31 06:41 POC Glucose 161 H 138 H Electrocardiogram Date: 06/24/21 Ventricular pacing @ 81 with occ PVCs Chest X-Ray Date: 06/24/21 Findings: + NAD Echocardiogram Date: 02/25/20 EF: 55-60% RWMA: + akinetic and + hypokinetic Other Findings: + atrial enlargement (Left atrium severely dilated) and + LVH Valvular Disease: + MR (Mild)
[2021-06-28] MEDS ORDERED: PROPOFOL IV EMULSION 10 MG/ML 20 ML VIAL IV ONE (16:56)
[2021-06-28] MEDS ORDERED: LIDOCAINE 2% 2 ML VIAL/AMP(20MG/ML) INFIL ONE (16:56)
--- NOTE | 2021-06-28 17:33 | GI REPORT ---
Patient Name: Cammy Zhu Procedure Date: 06/28/2021 5:30 PM Date of : 1940 Admit Type: Inpatient Age: 81 Gender: Female Attending MD: Zacarias Campoverde MD Procedure: Upper GI endoscopy Providers: Zacarias Campoverde MD Referring MD: Referred Self Indications: Hematochezia Medicines: Monitored Anesthesia Care Complications: No immediate complications. Estimated blood loss: None. Estimated Blood Loss: Estimated blood loss: none. Procedure: Pre-Anesthesia Assessment: - Prior Anticoagulants: The patient has taken no previous anticoagulant or antiplatelet agents. - ASA Grade Assessment: II - A patient with mild systemic disease. After obtaining informed consent, the endoscope was passed under direct vision. Throughout the procedure, the patient's blood pressure, pulse, and oxygen saturations were monitored continuously. The scope was introduced through the mouth, and advanced to the second part of duodenum. The upper GI endoscopy was accomplished without difficulty. The patient tolerated the procedure well. Findings: The examined esophagus was normal. One non-bleeding cratered gastric ulcer with no stigmata of bleeding was found in the gastric antrum. Biopsies were taken with a cold forceps for Helicobacter pylori testing. Estimated blood loss: none. The duodenal bulb and second portion of the duodenum were normal. Impression: - Normal esophagus. - Non-bleeding gastric ulcer with no stigmata of bleeding. Biopsied. - Normal duodenal bulb and second portion of the duodenum. Recommendation: - Discharge patient to home (with escort). - Resume previous diet today. - Await pathology results. Zacarias Campoverde MD 06/28/2021 5:33:30 PM This report has been signed electronically. Note Initiated On: 06/28/2021 5:30 PM Number of Addenda: 0 I attest to the content of the Intraoperative Record and orders documented therein, exceptions below {[id number]}
--- NOTE | 2021-06-28 17:37 | GI REPORT ---
Patient Name: Cammy Zhu Procedure Date: 06/28/2021 5:33 PM Date of : 1940 Admit Type: Inpatient Age: 81 Gender: Female Attending MD: Zacarias Campoverde MD Procedure: Colonoscopy Providers: Zacarias Campoverde MD Referring MD: Referred Self Indications: Hematochezia Medicines: Monitored Anesthesia Care Complications: No immediate complications. Estimated blood loss: None. Estimated Blood Loss: Estimated blood loss: none. Procedure: Pre-Anesthesia Assessment: - Prior Anticoagulants: The patient has taken no previous anticoagulant or antiplatelet agents. - ASA Grade Assessment: II - A patient with mild systemic disease. After I obtained informed consent, the scope was passed under direct vision. Throughout the procedure, the patient's blood pressure, pulse, and oxygen saturations were monitored continuously. The scope was introduced through the anus and advanced to the cecum, identified by appendiceal orifice and ileocecal valve. The colonoscopy was performed without difficulty. The patient tolerated the procedure well. The quality of the bowel preparation was fair except the cecum was poor. Findings: Two sessile polyps were found in the descending colon. The polyps were 5 mm in size. These polyps were removed with a cold snare. Resection and retrieval were complete. To prevent bleeding after the polypectomy, one hemostatic clip was successfully placed. There was no bleeding at the end of the procedure. A 4 mm polyp was found in the ascending colon. The polyp was sessile. The polyp was removed with a cold biopsy forceps and The polyp was removed with a cold snare. Resection and retrieval were complete. Estimated blood loss: none. Multiple medium-mouthed diverticula were found in the sigmoid colon. Impression: - Two 5 mm polyps in the descending colon, removed with a cold snare. Resected and retrieved. Clip was placed. - One 4 mm polyp in the ascending colon, removed with a cold snare and removed with a cold biopsy forceps. Resected and retrieved. - Diverticulosis in the sigmoid colon. Recommendation: - Discharge patient to home (with escort). - Resume previous diet today. - Await pathology results. Zacarias Campoverde MD 06/28/2021 5:36:36 PM This report has been signed electronically. Note Initiated On: 06/28/2021 5:33 PM Number of Addenda: 0 I attest to the content of the Intraoperative Record and orders documented therein, exceptions below {[id number]}
--- NOTE | 2021-06-28 17:56 | Anesthesiology Progress Note ---
Date of Service June 28, 2021 Anesthesia Post Procedure Vital Signs Vital Signs: Temp Pulse Pulse Resp BP BP Pulse Ox 06/28/21 17:42 60 18 113/48 L 94 06/28/21 17:27 60 18 88/46 L 94 06/28/21 16:21 64 06/28/21 15:40 36.2 C L 64 20 150/72 H 94 06/28/21 07:27 36.4 C L 61 16 167/71 H 98 06/28/21 00:00 60 06/27/21 23:12 36.4 C L 60 16 121/60 96 Transfer of Care Handoff Completed per policy Notes Mental Status: alert / awake / arousable Patient Amnestic to Procedure: Yes Nausea / Vomiting: adequately controlled Pain: adequately controlled Airway Patency, RR, SpO2: stable & adequate BP & HR: stable & adequate Hydration State: stable & adequate Anesthetic Complications: no major complications apparent
[2021-06-28] MEDS: SIMVASTATIN 20 MG TAB PO SCH (20:52)
[2021-06-28] MEDS: ZOLPIDEM TARTRATE 5 MG TAB PO SCH (21:30)
[2021-06-29 08:33] LABS: Basophils # (auto) 0.03 K/uL (0-0.2); Basophils % (auto) 0.5 %; Eosinophils # (auto) 0.19 K/uL (0-0.5); Eosinophils % (auto) 3.2 %; Hematocrit (blood only) 37.4 % (37-47); Hemoglobin 12.7 g/dL (12.0-16.0); Immature Granulocytes # (auto) 0.02 K/uL (0.00-0.02); Immature Granulocytes % (auto) 0.3 %; Lymphocytes # (auto) 1.83 K/uL (1.2-3.4); Lymphocytes % (auto) 30.5 %; Mean Corpuscular Hemoglobin 30.1 pg (25-34); Mean Corpuscular Volume 88.6 fL (80-100); Mean Platelet Volume 10.5 fL (7.4-10.4); Monocytes # (auto) 0.46 K/uL (0.11-0.59); Monocytes % (auto) 7.7 %; Neutrophils # (auto) 3.47 K/uL (1.4-6.5); Neutrophils % (auto) 57.8 %; Platelet Count 177 K/uL (130-400); RDW Coefficient of Variation 13.5 % (11.5-14.5); RDW Standard Deviation 43.5 fL (36.4-46.3); Red Blood Count 4.22 M/uL (4.2-5.4)
[2021-06-29] MEDS: ATENOLOL 50 MG TABLET PO SCH (08:45)
[2021-06-29] MEDS: CALCIUM 600MG + VIT D 400 IU TAB PO SCH (08:45)
[2021-06-29] MEDS: LOSARTAN POTASSIUM 25 MG TAB PO SCH (08:45)
[2021-06-29] MEDS: amLODIPine BESYLATE 5 MG TAB PO SCH (08:45)
[2021-06-29] MEDS: DOCUSATE CALCIUM 240 MG CAPSULE PO SCH (08:45)
[2021-06-29] MEDS: FLUTICASONE FUROATE 100MCG 14 PUFFS/INHALER INH SCH (08:46)
[2021-06-29] MEDS: FUROSEMIDE 20 MG TAB PO SCH (08:46)
[2021-06-29] MEDS: UMECLIDINIUM/VILANTEROL 62.5/25MCG 7 PUFFS/INHALER INH SCH (08:46)
[2021-06-29] MEDS: ISOSORBIDE MONO EXTENDED REL 30 MG TABCR PO SCH (08:46)
[2021-06-29] MEDS ORDERED: PANTOprazole 40 MG TAB PO SCH ×2 (09:00→09:30)
[2021-06-29 09:05] LABS: BUN Creatinine Ratio 14.6 (10-20); Calcium 8.6 mg/dl (8.5-10.1); Creatinine Clr Calc Pharmacy 37.2 ml/min; Est GFR (Non-African American) 40.5 ml/min; Potassium 3.7 mmol/L (3.5-5.1)
--- NOTE | 2021-06-29 09:18 | Communication Note ---
Date of Service: June 29, 2021 Patient underwent an EGD & colonoscopy on 06/28/21. Findings included a non- bleeding gastric ulcer & diverticula. On discharge, would advise Protonix 40 mg BID, Metamucil 1 TBSP daily, & follow-up in our office in 6 weeks.
[2021-06-29] MEDS: INSULIN ASPART PER UNIT SC SCH ×2 (09:51→14:09)
--- NOTE | 2021-06-29 13:19 | Discharge Summary ---
Date of Service June 29, 2021 Admission HPI Per Admitting Provider Patient is an 81 y/o female with a PMH of afibb on Xarelto, HTN, DM2, CHF, COPD, CKD3, insomnia, and known anal/rectum varicose veins who presents today with rectal bleeding. States she had been feeling very well lately, no recent episodes of hematochezia or melena or abdominal pain. She went to have a BM this morning and saw a significant amount of blood in the toilet bowl. She used preparation H cream and several pads to control bleeding, however it persisted, prompting her to call 911 for transportation to ED. She is otherwise asymptomatic, no chest pain, SOB, dizziness, syncopal events, n/v, abdominal pain, or diarrhea. She does tell me she feels she is constipated, as she had some straining with her BM today. She usually takes laxatives to help with BMs. Did take Xarelto as scheduled last evening. In ED, VSS and within normal limits. CBC unremarkable, Hgb 13.9, BMP unremarkable, Cr 1.30 (baseline), glucose 136. Hemoccult positive. CXR showed no acute disease process. Hospitalist service as consulted for further evaluation and admission. Principal Diagnosis Hematochezia Discharge Exam Constitutional and general: No acute distress, looks biologic age Head and face: No puffiness, atraumatic Eyes: No scleral icterus, extraocular movements normal Neck: Supple, no JVD Gastrointestinal/abdomen: Nondistended, soft, nonacute Neurologic: Cranial nerves intact, nonfocal Psychiatry: Awake, alert, pleasant, communicative Vital Signs Temp Pulse Pulse Resp BP Pulse Ox 06/29/21 11:07 36.7 C 74 19 110/62 96 06/29/21 08:35 36.7 C 62 18 155/55 H 96 06/29/21 05:04 61 06/28/21 18:24 36.5 C 60 16 154/67 H 92 06/28/21 17:55 58 L 18 108/54 L 94 06/28/21 17:42 60 18 113/48 L 94 06/28/21 17:27 60 18 88/46 L 94 06/28/21 16:21 64 06/28/21 15:40 36.2 C L 64 20 150/72 H 94 Intake and Output 06/28/21 06/29/21 06/29/21 22:59 06:59 14:59 Intake Total 100 / 100 Balance 100 / 95 Intake: Oral 100 / 100 Other: Other Intake Source sips Weight 83.3 kg 84.4 kg Weight Measurement Method Built in [facility] Respiratory: Chest movements equal, no use of accessory muscles, no adventitious sounds Extremities: No edema, no cyanosis; prominent varicosities Discharge Data Allergies Allergy/AdvReac Type Severity Reaction Status Date / Time chlorthalidone Allergy Severe Swelling Verified 06/28/21 15:39 of Lip/Tongue/Throat Penicillins Allergy Severe Swelling Verified 06/28/21 15:39 of Lip/Tongue/Throat MANDEEP Inhibitors Allergy Unknown Unknown Verified 06/28/21 15:39 atenolol Allergy Unknown Unknown Verified 06/28/21 15:39 trazodone Allergy Unknown Unknown Verified 06/28/21 15:39 Consultations 06/24/21 13:13 ED Decision to Admit Stat 06/25/21 16:05 Consult Gastroenterology Routine Procedures Performed Operation Date: 06/28/21 16:00 Actual Procedures p EGD Biopsy Cytology - Zacarias Campoverde MD s Colonoscopy Polypectomy - Zacarias Campoverde MD Ordered Studies 06/26/21 11:29 CT abd pelvis oral con only Routine Hospital Course (1) GI bleed: -Essentially painless hematochezia; upper GI endoscopy nonbleeding gastric ulcerbiopsied; pathology pending; colonoscopy polypspathology pending; exact etiology of essentially painless hematochezia not clear (1 day some nonspecific abdominal discomfort); diverticular bleed in the differential; given that there was no significant drop in hemoglobin, bleeding was not life-threatening and has stopped risk-benefit favors resumption of anticoagulation, discussed with GI and they agree; if bleeding recurs then revisit issue and consider Watchman's procedure if it is deemed anticoagulation relatively or absolutely contraindicated. PPI initiated, once a day per discussion with GI; should follow-up with GI (2) Atrial fibrillation: Status post pacemaker, clinically regular; no change in meds See above; anticoagulation resumed (3) CAD (coronary artery disease): -ND in 1992. Stable today, no complaints of chest pain. -Continue simvastatin, losartan, isosorbide mononitrate, atenolol. (4) Chronic respiratory failure with hypoxia: -COPD with emphysema, chronic hypoxic respiratory failure on 2 L nasal cannula -Stable today, no evidence of acute exacerbation. -Continue Trelegy once daily. -Albuterol with DuoNebs PRN. -SpO2 goal 88-92%. (5) Chronic diastolic CHF (congestive heart failure): -ECHO 02/25/2020--> EF 55-60%, severely dilated left atrium, right atrium is moderately to severely dilated, mild mitral regurgitation. Follows with Dr. Marcos. -Does not appear volume overloaded today. -Continue Lasix 20 mg daily. (6) Diabetes mellitus: -Sugars acceptable; no change (7) Hypertension: -Fluctuating parameters; no changeobserve (8) Chronic kidney disease, stage 3: -Fluctuating parameters; today's creatinine noted; general stable observe (9) Hyperlipidemia: -Continue simvastatin 20mg daily. 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 (11) Insomnia: -Continue zolpidem. SCDs Full code Total Time Total Time Spent Total Time Spent (In Minutes): 35 Discharge Plan Discharge Items Patient Disposition: Home - Self-Care Reason For Visit: LOWER GI BLEED Discharge Diagnosis: Hematochezia, source not clear Activity: Resume your previous activity Non-emergency contact: Primary Care Provider and Sheet Layer Call non-emergency contact if: your symptoms worsen Follow-up/Referrals: Dagoberto Headley MD [Primary Care Provider] - Zacarias Campoverde MD [Physician] - (Gastric ulcerfollow-up endoscopy as appropriate) Diet: Carb Consistent or DM2 Addtl Attending Provider Instructions: There has been no change in any of your medications except addition of pantoprazolecontinue all other medications as before Pending Studies at Discharge: No Stand-Alone Forms: My [facility] [email or web address], Smoking Cessation Medications and DC Order Prescriptions: New pantoprazole 40 mg Tablet,Delayed Release (Dr/Ec) 40 mg PO DAILY 60 Days Qty: 60 RF: 0 ipratropium-albuterol 0.5 mg-3 mg(2.5 mg base)/3 mL Solution For Nebulization 3 ml inhalation Q8H PRN (Reason: wheezing) 30 Days Qty: 90 RF: 0 zolpidem 5 mg Tablet 5 mg PO QPM 30 Days Qty: 30 RF: 0 furosemide 20 mg Tablet 20 mg PO QAM 90 Days Qty: 90 RF: 0 Metamucil (with sugar) 3.4 gram Powder In Packet 2 tsp PO QPM PRN (Reason: constipation) 30 Days RF: 0 Continued atenolol 50 mg tablet 50 mg PO QAM Qty: 90 RF: 3 Januvia 25 mg tablet 25 mg PO QAM Qty: 90 RF: 3 losartan 25 mg tablet 25 mg PO QAM Qty: 90 RF: 3 Xarelto 15 mg tablet 15 mg PO .COMPLEX Qty: 90 RF: 3 simvastatin 20 mg tablet 20 mg PO HS Qty: 90 RF: 3 albuterol sulfate [Ventolin HFA] 90 mcg/actuation HFA aerosol inhaler 2 puff INH Q4H PRN (Reason: shortness of breath or wheezing) Qty: 18 RF: 3 nitroglycerin 0.4 mg tablet, sublingual 0.4 mg SL UD PRN (Reason: chest pain) Qty: 20 RF: 3 isosorbide mononitrate 30 mg tablet extended release 24 hr 90 mg PO QAM Qty: 270 RF: 3 cranberry conc-ascorbic acid 4,200-20 mg capsule 1 cap PO DAILY RF: 0 calcium citrate-vitamin D3 250 mg calcium- 200 unit tablet 1 tab PO QAM RF: 0 multivitamin tablet 1 tab PO QAM RF: 0 Prolia 60 mg/mL syringe 60 mg SQ Q6MO Qty: 1 RF: 0 amlodipine 10 mg tablet 10 mg PO DAILY RF: 0 Discontinued hydrochlorothiazide 25 mg Tablet 25 mg PO DAILY RF: 0 Discharge Orders: Discharge Order (Routine); Ordered 06/29/21 Ordered By: Margaret Beltran/Other Patient Handouts: Managing Type 2 Diabetes Admission Data Admit Date/Time: 06/26/21 13:00 Attending Provider: Margaret Jordan Admit Provider: Osmar Montague Primary Care Provider: Dagoberto Headley Other Providers: Osmar Montague ; Zacarias Campoverde Other Interventions: Discharge Summary Assessment (RN) Last Done: 06/28/21 17:55 Coding Level of Care Code D/C DAY MANAGEMENT >30 MINS Diagnoses GI bleed K92.2 Atrial fibrillation I48.91 CAD (coronary artery disease) I25.10 Chronic respiratory failure with hypoxia J96.11 Chronic diastolic CHF (congestive heart failure) I50.32 Diabetes mellitus E11.9 Hypertension I10 Chronic kidney disease, stage 3 N18.3 Hyperlipidemia E78.5 Hyperlipidemia type: unspecified Bradycardia R00.1 Insomnia G47.00
== END 2021-06-29 15:06 | disposition home or self-care (01) ==
LOC: ED 10:07 → 2W 10:07 → SUATTDRO 11:58 → 2W 13:42

== ENCOUNTER 2022-08-05 16:49 | Inpatient (IN) ==
[2022-08-05 18:04] LABS: Albumin Globulin Ratio 1.2 (0.9-2); Albumin Level 3.6 gm/dl (3.4-5.0); BUN Creatinine Ratio 15.8 (10-20); Calcium 9.3 mg/dl (8.6-10.3); Creatinine Clr Calc Pharmacy 30.3 ml/min; Est GFR (African American) 36.1 ml/min; Est GFR (Non-African American) 31.2 ml/min; Globulin 2.9 gm/dl (2.5-4.0); Total Protein 6.5 gm/dl (6.0-8.3)
[2022-08-05 18:05] LABS: Basophils # (auto) 0.07 K/uL (0-0.2); Basophils % (auto) 0.7 %; Eosinophils # (auto) 0.26 K/uL (0-0.50); Eosinophils % (auto) 2.6 %; Hematocrit (blood only) 35.4 % (37.0-47.0); Hemoglobin 12.1 g/dl (12.0-16.0); Immature Granulocytes # (auto) 0.08 K/uL (0.01-0.20); Immature Granulocytes % (auto) 0.8 %; Lymphocytes # (auto) 1.94 K/uL (1.2-3.4); Lymphocytes % (auto) 19.4 %; Mean Corpuscular Hemoglobin 30.9 pg (25.0-34.0); Mean Corpuscular Hgb Conc 34.2 g/dL (32.0-36.0); Mean Corpuscular Volume 90.5 fL (80.0-100.0); Mean Platelet Volume 10.6 fL (9.4-12.4); Monocytes # (auto) 0.81 K/uL (0.11-0.59); Monocytes % (auto) 8.1 %; Neutrophils # (auto) 6.82 K/uL (1.40-6.50); Neutrophils % (auto) 68.4 %; Platelet Count 166 K/uL (130-400); RDW Coefficient of Variation 12.7 % (11.5-14.5); RDW Standard Deviation 41.8 fL (36.4-46.3); Red Blood Count 3.91 M/uL (4.20-5.40); White Blood Count 9.98 K/ul (4.8-10.8)
[2022-08-05 18:09] LABS: Troponin I High Sensitivity 15.3 pg/ml (0-14)
--- NOTE | 2022-08-05 18:11 | XRay Report ---
XR hand RT min 3V routine HISTORY: 82 years-old Female Hand trauma, no prior imaging acute right hand pain status post trauma COMPARISON: None TECHNIQUE: 3 views the right hand FINDINGS: Arterial calcifications. Demineralized appearance of the bones multifocal osteoarthritis, moderate to severe within the triscaphe and first carpometacarpal joints. Chondrocalcinosis of the TFCC. IMPRESSION: No acute fracture or dislocation identified. ACT 112: Negative or not required by law. The above report was generated using voice recognition software. It may contain grammatical, syntax o r spelling errors. Electronically signed by: Marko Padron M.D. 08/05/2022 6:09 PM
--- NOTE | 2022-08-05 18:12 | XRay Report ---
XR chest 1V portable HISTORY: 82 years-old Female Chest pain, nonspecific acute chest pain status post fall COMPARISON: Chest radiograph 06/24/2021 TECHNIQUE: AP view of the chest FINDINGS: Cardiac silhouette is enlarged. Left subclavian pacer. Atherosclerosis of aorta. Pulmonary vascular c ongestion. Small pleural effusions with mild bibasilar densities. No pneumothorax. Chronic appearing right-sided rib fractures. Degenerative changes of the shoulders and spine. Surgical clips project ov er the upper abdomen. IMPRESSION: 1. Cardiomegaly with pulmonary vascular congestion. 2. Small pleural effusions with mild bibasilar densities favoring atelectasis. ACT 112: Negative or not required by law. The above report was generated using voice recognition software. It may contain grammatical, syntax o r spelling errors. Electronically signed by: Marko Padron M.D. 08/05/2022 6:10 PM
[2022-08-05 18:13] LABS: INR 1.2 (0.9-1.1); Partial Thromboplastin Ratio 1.1; Partial Thromboplastin Time 31.2 Seconds (21.0-31.0)
--- NOTE | 2022-08-05 18:28 | CT Scan Report ---
CT head/brain wo con CLINICAL HISTORY: 82 years-old Female with Fall on xarelto. Acute head and neck injury status post f all TECHNIQUE: Multiple axial CT images of the head were obtained without contrast. A dose lowering tech nique was utilized adhering to the principles of ALARA. COMPARISON: 10/09/2016 FINDINGS: No acute intracranial hemorrhage, midline shift, intracranial mass, hydrocephalus, territorial ischem ia or abnormal extra-axial collection. Involutional changes with chronic microvascular ischemic disea se. Coarse calcifications of the falx cerebri. The study is mildly motion degraded. Cerebral vascular calcifications. No acute calvarial fracture identified. Acute facial bone fractures with soft tissue swelling and mod erate to severe mucosal thickening of the paranasal sinuses. Maxillary air-fluid levels. Right forehe ad contusion, 4.4 cm. Prior bilateral lens repair. The paranasal sinuses, mastoid air cells, and mid dle ear cavities are clear. IMPRESSION: 1. No acute intracranial abnormality or calvarial fracture. 2. Facial contusions with right forehead hematoma. 3. Please refer to the CT maxillofacial study of same day for discussion of the acute facial bone fra ctures. ACT 112: Negative or not required by law. The above report was generated using voice recognition software. It may contain grammatical, syntax o r spelling errors. Electronically signed by: Marko Padron M.D. 08/05/2022 6:26 PM
--- NOTE | 2022-08-05 18:35 | CT Scan Report ---
CT cervical spine wo con CLINICAL HISTORY: 82 years-old Female with Fall on xarelto. Acute head and neck injury status post f all COMPARISON: CT head and maxillofacial studies of same day TECHNIQUE: Multiple axial CT images of the cervical spine were obtained without contrast. A dose low ering technique was utilized adhering to the principles of ALARA. FINDINGS: Partially imaged acute facial bone fractures with moderate to severe mucosal thickening of the paranasal sinuses. Nasopharyngeal secretions. Partially calcified pannus posterior to odontoid process. Moderate to severe degenerative changes of the cervical spine. Demineralized appearance of the bones. No acute cervical spine fracture or sublux ation identified. The cervical soft tissues appear unremarkable. The visualized lung apices appear clear. Left subclav axel pacer. Pulmonary emphysema. Calcified plaque of the carotid bulbs. IMPRESSION: 1. No acute cervical spine fracture or subluxation identified. 2. Mucosal thickening of the paranasal sinuses with partially imaged acute facial bone fractures. Ple ase refer to the CT maxillofacial study of same day for additional details. ACT 112: Negative or not required by law. The above report was generated using voice recognition software. It may contain grammatical, syntax o r spelling errors. Electronically signed by: Marko Padron M.D. 08/05/2022 6:33 PM
--- NOTE | 2022-08-05 18:40 | CT Scan Report ---
CT facial bones wo con CLINICAL HISTORY: 82 years-old Female presenting with Fall on Xarelto. Acute facial pain status post fall COMPARISON STUDY: CT head and cervical spine studies of same day TECHNIQUE: High-resolution CT scan of the facial bones is performed. Images are reviewed in the axia l, sagittal, and coronal planes. IV contrast was not administered for this examination. A dose lower ing technique was utilized adhering to the principles of ALARA. CT DOSE: 1071.13 mGy.cm FINDINGS: Hyperostosis frontalis interna. 4.4 cm right forehead scalp hematoma. Prior bilateral lens repair. Mo derate soft tissue swelling surrounding the nose. Acute bilateral nasal bone fractures with mild comm inution on the left and slight bilateral displacement/angulation. The zygomatic arches are intact. [place] btle acute nondisplaced fractures involve the anterior and posterior cano of the maxillary sinuses. Subtle acute nondisplaced fracture involves the left lateral pterygoid plate. Sigmoidal bowing and an gulation the nasal septum with a few nondisplaced acute appearing fractures. Appear intact. Moderate to severe mucosal thickening with secretions within the paranasal sinuses. Right maxillary a nd sphenoid sinus air-fluid levels. The mandible appears intact. IMPRESSION: 1. Acute bilateral nasal bone fractures with mild comminution and displacement. 2. Acute nondisplaced fractures within the anterior and posterior cano of the maxillary sinuses. 3. Acute mildly angulated fracture of the lateral left pterygoid plate. 4. Acute angulated fractures of the bony nasal septum. 5. Moderate to severe mucosal thickening with secretions noted within the paranasal sinuses. ACT 112: Negative or not required by law. The above report was generated using voice recognition software. It may contain grammatical, syntax o r spelling errors. Electronically signed by: Marko Padron M.D. 08/05/2022 6:38 PM
[2022-08-05] MEDS ORDERED: MoRPHine SULFATE 2 MG/ML CARP IV STA (19:54)
[2022-08-05] MEDS ORDERED: ACETAMINOPHEN 1,000 MG/100 ML VIAL IV STA (19:54)
[2022-08-05] MEDS ORDERED: ONDANSETRON INJ 2 MG/ML 2 ML VIAL IV STA (19:57)
--- NOTE | 2022-08-05 20:15 | Emergency Department Note ---
Impression & Plan Syncope, Multiple facial bone fractures, CHI (closed head injury), Elevated troponin ED Provider Note ED Provider Note NAME: SAMI RODGERS AGE:82 SEX: Female : 1940 ARRIVES VIA: EMS INFORMANT: Patient ED PROVIDER(s): Elena Ibrahim DO CHIEF COMPLAINT: Syncope, facial injury HPI: This is an 82-year-old female presents emergency department following a syncopal event with subsequent fall and obvious facial injury. Patient states she remembers getting out of the car feeling well and in her normal state of health. She remembers going to the trunk and getting out of bag and closing the trunk and beginning to walk up a walkway towards the house. She states the next thing she knew she was on the ground face down, bleeding. She states when she came to and realized that she had fallen and struck her head and face she called 911 herself. Patient states she does take Xarelto due to history of heart problems. Patient states no recent illness or change in medications. Patient states she did have an eye doctor's appointment earlier this morning however did state her son's health after this for some time to make sure that she did not have any lingering effects of the eyedrops that were placed. No prior history of syncope. PAST MEDICAL HISTORY:See Below PAST SURGICAL HISTORY:See Below FAMILY HISTORY:See Below SOCIAL HISTORY:See Below HOME MEDICATIONS:See Below ALLERGIES:See Below VITALS:See Below PHYSICAL EXAMINATION: GENERAL: alert, well appearing, well nourished, no distress, non-toxic HEAD: nc, obvious facial trauma noted with significant contusion and swelling to the right forehead, right periorbital region, nasal bridge, with nasal clamp in place and evidence of dried blood noted to the face, no catalan sign EYE EXAM: normal conjunctiva, PERRL and EOM's grossly intact, no subconjunctival hemorrhage OROPHARYNX: no exudate, no erythema, lips, buccal mucosa, and tongue normal and mucous membranes are moist, patient's dentures were noted to be broken, however they were able to be removed during my exam, blood was noted in the posterior oropharynx NECK: supple, no nuchal rigidity, no adenopathy, non-tender, FROM LUNGS: Clear to auscultation. Normal chest wall mechanics, no w/r/r HEART: no murmurs, S1 normal and S2 normal ABDOMEN: abdomen soft, non-tender, normo-active bowel sounds, no masses, no rebound or guarding. BACK: Back is symmetrical on inspection and there is no deformity, no midline tenderness, no CVA tenderness. SKIN: no rashes, petechiae, orbruising UPPER EXTREMITIES: upper extremities are grossly normal. FROM, nml pulses b/l. LOWER EXTREMITIES: No pitting edema. FROM, nml pulses b/l. NEURO EXAM: Normal sensorium, cranial nerves II-XII grossly intact, normal speech, no facial droop,nogross weakness of arms, no gross weakness of legs. Gross sensation intact. No ataxia. Vital Signs: reviewed and remarkable Differential Diagnosis: Intracranial hemorrhage, facial fracture, C-spine fracture, contusion, sprain, strain, dysrhythmia, ACS, occult infection, dehydration, medication reaction, as well as others were considered MEDICAL DECISION MAKING: This is an 82-year-old female who presents after a syncopal event that caused a fall with subsequent closed head injury and facial trauma. Patient brought in by EMS. Vital signs stable and patient afebrile. Labs drawn and sent, IV established, EKG performed interpreted me at bedside, patient sent for CT and x- ray imaging. Upon return she was placed on telemetry. Her pacemaker was inter rogated. Patient's labs reassuring. Imaging results were discussed with her and family at bedside. Case discussed with Dr. Humphrey who can see the patient in consult tomorrow. Due to unclear etiology of syncope, case discussed with hospitalist team for additional evaluation and management. Mild elevation noted the patient's troponin of unclear etiology which will need to be trended. Patient also noted to have mild elevation of her creatinine and does have a solitary kidney. At time of discussion with hospitalist team, UA still pending as patient had not yet provided specimen. While in the ER, patient given IV clindamycin as a precaution due to significant penicillin allergy and multiple facial fractures. She was given gentle IV fluid rehydration as well as medication for pain including IV Tylenol and IV morphine. Consultation(s): 2010: Discussed with Dr. Humphrey. 2101: Discussed with Scott [employer] rep. Small episode of VT back on 08/02/2022. No other episodes of dysrhythmia today. 2121: Discussed with Dr. Patricia, hospitalist team. ER Treatment Provided: See below Diagnostics Interpreted By Me: -ECG: Paced at 69, leftward axis, prolonged intervals consistent with paced rhythm -Cardiac Monitoring: An order was placed for continuous cardiac monitoring. The monitor shows a rate of 66 with paced rhythm. -Laboratory studies: As stated above and show below. -Imaging studies: Right hand 3 view: No obvious fracture or dislocation; Triage Nursing Note Reviewed Prior/Outside Records Reviewed - prior cardiology visit note Past Med/Surg History Medical History Acute anterior epistaxis Acute lower gastrointestinal bleeding Acute posterior epistaxis Anemia Anticoagulant long-term use Atrial fibrillation permanent, now s/p PPM (2016) Bradycardia CAD (coronary artery disease) [place] (1992) CHF (congestive heart failure) follows with [facility] (Dr. Marcos) Chronic diastolic CHF (congestive heart failure) Chronic kidney disease, stage 3 follows with nephrology ([facility]/Dr. Richard) Chronic respiratory failure with hypoxia COPD (chronic obstructive pulmonary disease) 2L HS + occasionally PRN, follows with [facility] COPD with asthma COPD with emphysema Deep vein thrombosis B/L LE (1967), Diabetes mellitus, type 2 NIDDM Dysfunction of left eustachian tube Encounter for pre-operative examination Encounter for pre-operative examination GI bleed Hearing deficit History of kidney cancer s/p L nephrectomy (1997) Hyperlipidemia controlled Hypertension controlled Insomnia Insomnia Intractable back pain Leg swelling Mixed conductive and sensorineural hearing loss of left ear with restricted hearing of right ear Osteoarthritis Osteoporosis Pacemaker Implanted 2016, [employer], last check 09/2019 Pulmonary nodule per records Restless leg syndrome Syncope UTI (urinary tract infection) Vitamin D deficiency Surgical History History of cardiac cath 10+ years ago, no stents History of cholecystectomy History of colonoscopy History of hip surgery R/L NABEEL History of myringotomy + Left ear tube removal: 06/09/19: LMA#4 atraumatic at [facility] History of nephrectomy left History of vaginal hysterectomy Hx of bilateral cataract extraction Status post placement of cardiac pacemaker 2016 Family History Brother Hypertension Mother Cardiac disorder Sister Lung cancer Aunt Lung cancer Father Pneumonia Unknown Family history of allergies Environmental allergies Denies family history of Ovarian cancer Prostate cancer Myocardial infarction Breast cancer Colorectal cancer Social History Smoking Status: Former smoker Tobacco Type: Cigarettes Age Started Using Tobacco: 26; Age Quit Using Tobacco: 55; packs per day: 1; Cigarettes Per Day: 20; Second Hand Exposure: No; Hx Alcohol Use: No Hx Substance Use: No Preferred Language: Yemeni Communication Ability: Effective Visual Impairment: No Limitations Hearing Ability: Hard of Hearing Load Out Person Required: No Beliefs That Will Affect Care: None marital status: / Current Living Situation: Alone Current Living Situation Comment[facility]. current occupational status: retired current occupation: worked at [employer] Other Information That Helps Us Care for You: No Feels Safe at Home: Yes Safety Concerns: Feels Safe At This Time Childhood Exposure to Second-Hand Smoke: No Diet Comment: Low sugar/ Sugar free options when possible caffeine: Yes (2 cups of coffee daily ) Dental Care, Regularly: No Physical Activity Frequency: Daily Seatbelt Use: always Sunscreen Use: Yes Assistive Devices: Oxygen - at Night Allergies Allergies Allergy/AdvReac Type Severity Reaction Status Date / Time chlorthalidone Allergy Severe Swelling Verified 08/05/22 20:54 of Lip/Tongue/Throat Penicillins Allergy Severe Swelling Verified 08/05/22 20:54 of Lip/Tongue/Throat MANDEEP Inhibitors Allergy Unknown Unknown Verified 08/05/22 20:54 trazodone Allergy Unknown Unknown Verified 08/05/22 20:54 Home Meds Home Medications Medication Instructions Recorded Confirmed calcium citrate 250 mg 1 tab PO QAM 11/07/18 08/05/22 calcium-vitamin D3 5 mcg (200 unit) tablet cranberry concentrate-ascorbic 1 cap PO DAILY 11/07/18 08/05/22 acid 4,200 mg-20 mg capsule multivitamin 1 tab PO QAM 11/07/18 08/05/22 Previous Rx's Medication Instructions Recorded amlodipine 10 mg tablet 10 mg PO DAILY #90 tabs 09/12/21 cholecalciferol (vitamin D3) 50 50 mcg PO BID #30 caps 09/12/21 mcg (2,000 unit) capsule nitroglycerin 0.4 mg sublingual 0.4 mg sublingual UD PRN chest 09/12/21 tablet pain #20 tabs sitagliptin phosphate 25 mg tablet 25 mg PO QAM #90 tabs 09/12/21 (Januvia) atenolol 50 mg tablet 50 mg PO QAM #90 tabs 01/10/22 losartan 25 mg tablet 25 mg PO QAM #90 tabs 01/10/22 rivaroxaban 15 mg tablet (Xarelto) 15 mg PO .COMPLEX #90 tabs 01/10/22 simvastatin 20 mg tablet 20 mg PO HS #90 tabs 01/10/22 albuterol sulfate 90 mcg/actuation 2 puff inhalation Q4H PRN 02/21/22 aerosol inhaler (Ventolin HFA) shortness of breath or wheezing #18 grams fluticasone fur. 100 mcg-umeclid 1 inh inhalation DAILY #3 Inhalers 02/21/22 62.5 mcg-vilant 25 mcg inhalat.powder (Trelegy Ellipta) zolpidem 5 mg tablet 5 mg PO QPM #30 tabs 05/29/22 furosemide 20 mg tablet 20 mg PO QAM 90 days #90 tabs 07/02/22 isosorbide mononitrate 30 mg 90 mg PO QAM #270 tabs 08/01/22 tablet,extended release 24 hr Results & Data (ED) Vital Signs Vital Signs - 24 hr 08/05/22 16:38 08/05/22 17:11 08/05/22 17:09 Temperature 36.5 C Temperature Source Temporal Artery Scan Pulse Rate 60 62 Pulse Rate [Left Apical] Respiratory Rate 20 Respiratory Effort / Characteristics Non-Labored Spontaneous Respiratory Depth Normal Blood Pressure 157/95 H Blood Pressure [Right Arm] Blood Pressure Mean 115 Blood Pressure Mean [Right Arm] Pulse Oximetry 93 92 Oxygen Delivery Method Room Air Room Air Sepsis Recent Fever Within 48 Hours No Sepsis New/Unexplained Change in Mental Status No Sepsis Action Taken by Nursing No Action Required 08/05/22 18:15 08/05/22 20:00 08/05/22 22:00 Temperature Temperature Source Pulse Rate Pulse Rate [Left Apical] 64 60 64 Respiratory Rate 20 16 14 Respiratory Effort / Characteristics Non-Labored Spontaneous Respiratory Depth Normal Normal Normal Blood Pressure Blood Pressure [Right Arm] 166/77 H 169/72 H 148/61 H Blood Pressure Mean Blood Pressure Mean [Right Arm] 106 104 90 Pulse Oximetry 93 90 90 Oxygen Delivery Method Room Air Room Air Room Air Sepsis Recent Fever Within 48 Hours Sepsis New/Unexplained Change in Mental Status Sepsis Action Taken by Nursing 08/05/22 20:55 Temperature Temperature Source Pulse Rate 60 Pulse Rate [Left Apical] Respiratory Rate Respiratory Effort / Characteristics Respiratory Depth Blood Pressure Blood Pressure [Right Arm] Blood Pressure Mean Blood Pressure Mean [Right Arm] Pulse Oximetry Oxygen Delivery Method Sepsis Recent Fever Within 48 Hours Sepsis New/Unexplained Change in Mental Status Sepsis Action Taken by Nursing Laboratory Data 08/05/22 17:17 08/05/22 17:17 Lab Results 08/05/22 08/05/22 08/05/22 Range/Units 17:17 17:17 17:17 WBC 9.98 (4.8-10.8) K/ul RBC 3.91 L (4.20-5.40) M/uL Hgb 12.1 (12.0-16.0) g/dl Hct 35.4 L (37.0-47.0) % MCV 90.5 (80.0-100.0) fL MCH 30.9 (25.0-34.0) pg MCHC 34.2 (32.0-36.0) g/dL RDW Std Deviation 41.8 (36.4-46.3) fL RDW Coeff of Stephane 12.7 (11.5-14.5) % Plt Count 166 (130-400) K/uL MPV 10.6 (9.4-12.4) fL Immature Gran % (Auto) 0.8 % Neut % (Auto) 68.4 % Lymph % (Auto) 19.4 % Mccracken % (Auto) 8.1 % Eos % (Auto) 2.6 % Baso % (Auto) 0.7 % Neut # (Auto) 6.82 H (1.40-6.50) K/uL Lymph # (Auto) 1.94 (1.2-3.4) K/uL Mccracken # (Auto) 0.81 H (0.11-0.59) K/uL Eos # (Auto) 0.26 (0-0.50) K/uL Baso # (Auto) 0.07 (0-0.2) K/uL Immature Gran # (Auto) 0.08 (0.01-0.20) K/uL PT 13.0 H (9.0-12.0) Seconds INR 1.2 H (0.9-1.1) APTT 31.2 H (21.0-31.0) Seconds PTT Ratio 1.1 Sodium 139 (136-145) mmol/L Potassium 4.0 (3.5-5.1) mmol/L Chloride 104 (98-107) mmol/L Carbon Dioxide 27 (21-32) mmol/L Anion Gap 8 (3-11) BUN 24 H (6-23) mg/dl Creatinine 1.52 H (0.6-1.2) mg/dl Est Cr Clr Drug Dosing 30.3 ml/min Est GFR ( Amer) 36.1 ml/min Est GFR (Non-Af Amer) 31.2 ml/min BUN/Creatinine Ratio 15.8 (10-20) Glucose 168 H (70-99(Fasting)) mg/dl Calcium 9.3 (8.6-10.3) mg/dl Magnesium 1.9 (1.7-2.4) mg/dl Total Bilirubin 1.0 (0.2-1.0) mg/dl AST 16 (13-39) U/L ALT 9 (7-52) U/L Alkaline Phosphatase 42 (34-104) U/L Troponin I High Sens 15.3 H (0-14) pg/ml Total Protein 6.5 (6.0-8.3) gm/dl Albumin 3.6 (3.4-5.0) gm/dl Globulin 2.9 (2.5-4.0) gm/dl Albumin/Globulin Ratio 1.2 (0.9-2) TSH (0.300-4.500) uIu/ml SARS-CoV-2, RNA, NAAT (NEGATIVE) 08/05/22 08/05/22 08/05/22 Range/Units 17:18 19:53 20:58 WBC (4.8-10.8) K/ul RBC (4.20-5.40) M/uL Hgb (12.0-16.0) g/dl Hct (37.0-47.0) % MCV (80.0-100.0) fL MCH (25.0-34.0) pg MCHC (32.0-36.0) g/dL RDW Std Deviation (36.4-46.3) fL RDW Coeff of Stephane (11.5-14.5) % Plt Count (130-400) K/uL MPV (9.4-12.4) fL Immature Gran % (Auto) % Neut % (Auto) % Lymph % (Auto) % Mccracken % (Auto) % Eos % (Auto) % Baso % (Auto) % Neut # (Auto) (1.40-6.50) K/uL Lymph # (Auto) (1.2-3.4) K/uL Mccracken # (Auto) (0.11-0.59) K/uL Eos # (Auto) (0-0.50) K/uL Baso # (Auto) (0-0.2) K/uL Immature Gran # (Auto) (0.01-0.20) K/uL PT (9.0-12.0) Seconds INR (0.9-1.1) APTT (21.0-31.0) Seconds PTT Ratio Sodium (136-145) mmol/L Potassium (3.5-5.1) mmol/L Chloride (98-107) mmol/L Carbon Dioxide (21-32) mmol/L Anion Gap (3-11) BUN (6-23) mg/dl Creatinine (0.6-1.2) mg/dl Est Cr Clr Drug Dosing ml/min Est GFR ( Amer) ml/min Est GFR (Non-Af Amer) ml/min BUN/Creatinine Ratio (10-20) Glucose (70-99(Fasting)) mg/dl Calcium (8.6-10.3) mg/dl Magnesium Cancelled (1.7-2.4) mg/dl Total Bilirubin (0.2-1.0) mg/dl AST (13-39) U/L ALT (7-52) U/L Alkaline Phosphatase (34-104) U/L Troponin I High Sens (0-14) pg/ml Total Protein (6.0-8.3) gm/dl Albumin (3.4-5.0) gm/dl Globulin (2.5-4.0) gm/dl Albumin/Globulin Ratio (0.9-2) TSH 0.882 (0.300-4.500) uIu/ml SARS-CoV-2, RNA, NAAT NEGATIVE (NEGATIVE) Administered Medications Hydromorphone HCl (Hydromorphone Inj 0.5 Mg/0.5 Ml Syr) 0.5 mg IV Q3H PRN PRN Reason: Pain (6,7,8,9,10) Stop: 08/20/22 00:25 Last Admin: 08/06/22 01:14 Dose: 0.5 mg Documented By: JOSEPH Sodium Chloride (Nss 1000ml) 1,000 mls @ 100 mls/hr IV .Q10H LUIS Stop: 09/04/22 19:59 Last Admin: 08/05/22 20:56 Dose: 100 mls/hr Documented By: KERI Heparin Sodium/Dextrose (Heparin Sodium/Dextrose) 25,000 units in 500 mls @ 16 mls/hr IV .Q24H LUIS; Protocol Stop: 09/05/22 01:29 Last Admin: 08/06/22 02:06 Dose: 800 units/hr, 16 mls/hr Documented By: JOSEPH Co-signed By: DIOR Doxycycline Hyclate 100 mg/ (Dextrose) 110 mls @ 50 mls/hr IV Q12H LUIS Stop: 08/13/22 01:59 Last Admin: 08/06/22 02:51 Dose: 50 mls/hr Documented By: JOSEPH Discontinued Medications Acetaminophen (Acetaminophen 325 Mg Tab) 325 mg PO NOW STA Stop: 08/05/22 22:48 Last Admin: 08/06/22 00:21 Dose: Not Given Documented By: JOSEPH Acetaminophen (Ofirmev) 1,000 mg in 100 mls @ 400 mls/hr IV NOW STA Stop: 08/05/22 20:08 Last Infusion: 08/05/22 20:58 Dose: 0 mls/hr Documented By: Admin: 08/05/22 20:02 Dose: 400 mls/hr Documented By: KERI Clindamycin Phosphate (Cleocin/D5w) 300 mg in 50 mls @ 100 mls/hr IV NOW ONE Stop: 08/05/22 21:42 Last Infusion: 08/05/22 23:22 Dose: 0 mls/hr Documented By: Admin: 08/05/22 22:16 Dose: 100 mls/hr Documented By: KERI Morphine Sulfate (Morphine Sulfate 2 Mg/Ml Carp) 2 mg IV NOW STA Stop: 08/05/22 19:55 Last Admin: 08/05/22 20:02 Dose: 2 mg Documented By: KERI Ondansetron HCl (Ondansetron Inj 2 Mg/Ml 2 Ml Vial) 4 mg IV NOW STA Stop: 08/05/22 19:58 Last Admin: 08/05/22 20:02 Dose: 4 mg Documented By: KERI Imaging Data Radiologist's Impression: Chest X-Ray 08/05/22 17:09 XR chest 1V portable HISTORY: 82 years-old Female Chest pain, nonspecific acute chest pain status post fall COMPARISON: Chest radiograph 06/24/2021 TECHNIQUE: AP view of the chest FINDINGS: Cardiac silhouette is enlarged. Left subclavian pacer. Atherosclerosis of aorta. Pulmonary vascular congestion. Small pleural effusions with mild bibasilar densities. No pneumothorax. Chronic appearing right-sided rib fractures. Degenerative changes of the shoulders and spine. Surgical clips project over the upper abdomen. IMPRESSION: 1. Cardiomegaly with pulmonary vascular congestion. 2. Small pleural effusions with mild bibasilar densities favoring atelectasis. ACT 112: Negative or not required by law. The above report was generated using voice recognition software. It may contain grammatical, syntax or spelling errors. Electronically signed by: Marko Padron M.D. 08/05/2022 6:10 PM Hand X-Ray 08/05/22 17:10 XR hand RT min 3V routine HISTORY: 82 years-old Female Hand trauma, no prior imaging acute right hand pain status post trauma COMPARISON: None TECHNIQUE: 3 views the right hand FINDINGS: Arterial calcifications. Demineralized appearance of the bones multifocal osteoarthritis, moderate to severe within the triscaphe and first carpometacarpal joints. Chondrocalcinosis of the TFCC. IMPRESSION: No acute fracture or dislocation identified. ACT 112: Negative or not required by law. The above report was generated using voice recognition software. It may contain grammatical, syntax or spelling errors. Electronically signed by: Marko Padron M.D. 08/05/2022 6:[address] 08/05/22 17:35 CT cervical spine wo con CLINICAL HISTORY: 82 years-old Female with Fall on xarelto. Acute head and neck injury status post fall COMPARISON: CT head and maxillofacial studies of same day TECHNIQUE: Multiple axial CT images of the cervical spine were obtained without contrast. A dose lowering technique was utilized adhering to the principles of ALARA. FINDINGS: Partially imaged acute facial bone fractures with moderate to severe mucosal thickening of the paranasal sinuses. Nasopharyngeal secretions. Partially calcified pannus posterior to odontoid process. Moderate to severe degenerative changes of the cervical spine. Demineralized appearance of the bones. No acute cervical spine fracture or subluxation identified. The cervical soft tissues appear unremarkable. The visualized lung apices appear clear. Left subclavian pacer. Pulmonary emphysema. Calcified plaque of the carotid bulbs. IMPRESSION: 1. No acute cervical spine fracture or subluxation identified. 2. Mucosal thickening of the paranasal sinuses with partially imaged acute facial bone fractures. Please refer to the CT maxillofacial study of same day for additional details. ACT 112: Negative or not required by law. The above report was generated using voice recognition software. It may contain grammatical, syntax or spelling errors. Electronically signed by: Marko Padron M.D. 08/05/2022 6:[address] 08/05/22 17:35 CT facial bones wo con CLINICAL HISTORY: 82 years-old Female presenting with Fall on Xarelto. Acute facial pain status post fall COMPARISON STUDY: CT head and cervical spine studies of same day TECHNIQUE: High-resolution CT scan of the facial bones is performed. Images are reviewed in the axial, sagittal, and coronal planes. IV contrast was not administered for this examination. A dose lowering technique was utilized adhering to the principles of ALARA. CT DOSE: 1071.13 mGy.cm FINDINGS: Hyperostosis frontalis interna. 4.4 cm right forehead scalp hematoma. Prior bilateral lens repair. Moderate soft tissue swelling surrounding the nose. Acute bilateral nasal bone fractures with mild comminution on the left and slight bilateral displacement/angulation. The zygomatic arches are intact. Subtle acute nondisplaced fractures involve the anterior and posterior cano of the maxillary sinuses. Subtle acute nondisplaced fracture involves the left lateral pterygoid plate. Sigmoidal bowing and angulation the nasal septum with a few nondisplaced acute appearing fractures. Appear intact. Moderate to severe mucosal thickening with secretions within the paranasal sinuses. Right maxillary and sphenoid sinus air-fluid levels. The mandible appears intact. IMPRESSION: 1. Acute bilateral nasal bone fractures with mild comminution and displacement. 2. Acute nondisplaced fractures within the anterior and posterior cano of the maxillary sinuses. 3. Acute mildly angulated fracture of the lateral left pterygoid plate. 4. Acute angulated fractures of the bony nasal septum. 5. Moderate to severe mucosal thickening with secretions noted within the paranasal sinuses. ACT 112: Negative or not required by law. The above report was generated using voice recognition software. It may contain grammatical, syntax or spelling errors. Electronically signed by: Marko Padron M.D. 08/05/2022 6:[address] 08/05/22 17:35 CT head/brain wo con CLINICAL HISTORY: 82 years-old Female with Fall on xarelto. Acute head and neck injury status post fall TECHNIQUE: Multiple axial CT images of the head were obtained without contrast. A dose lowering technique was utilized adhering to the principles of ALARA. COMPARISON: 10/09/2016 FINDINGS: No acute intracranial hemorrhage, midline shift, intracranial mass, hydrocephalus, territorial ischemia or abnormal extra-axial collection. Involutional changes with chronic microvascular ischemic disease. Coarse calcifications of the falx cerebri. The study is mildly motion degraded. Cerebr al vascular calcifications. No acute calvarial fracture identified. Acute facial bone fractures with soft tissue swelling and moderate to severe mucosal thickening of the paranasal sinuses. Maxillary air-fluid levels. Right forehead contusion, 4.4 cm. Prior bilateral lens repair. The paranasal sinuses, mastoid air cells, and middle ear cavities are clear. IMPRESSION: 1. No acute intracranial abnormality or calvarial fracture. 2. Facial contusions with right forehead hematoma. 3. Please refer to the CT maxillofacial study of same day for discussion of the acute facial bone fractures. ACT 112: Negative or not required by law. The above report was generated using voice recognition software. It may contain grammatical, syntax or spelling errors. Electronically signed by: Marko Padron M.D. 08/05/2022 6:26 PM Discharge Plan Visit Data Chief Complaint: Fall ED Provider: Elena Ibrahim Discharge Problem: Syncope, Multiple facial bone fractures, CHI (closed head injury), Elevated troponin Patient Disposition: Admitted As Inpatient Discharge Instructions Interventions: ED Discharge Assessment Last Done: 08/06/22 00:15 Multiple facial bone fractures Qualifiers: Encounter type: initial encounter
[2022-08-05 20:43] LABS: Magnesium 1.9 mg/dl (1.7-2.4)
[2022-08-05] MEDS: SODIUM CHLORIDE 0.9% 1000ML 1,000 ML IV SCH (20:56)
[2022-08-05] MEDS ORDERED: CLINDAMYCIN/D5W 300 MG/50 ML BAG IV ONE (21:13)
--- NOTE | 2022-08-05 22:03 | History & Physical Report ---
Date of Service August 05, 2022 Assessment & Plan (1) Multiple facial bone fractures: Plan: 82 F with PMH CAD (), permanent A-fib, multiple prior DVTs (on Xarelto), diastolic CHF, tachycardia-bradycardia syndrome (s/p VVI pacer in 2017) DM2, COPD with asthma, hyperlipidemia, hypertension, who presents today after a fall and is being admitted to the hospital for further management following multiple facial bone fractures. Facial bone fractures -Face CT: Bilateral nasal bone fractures + mild comminution, displacement; nondisplaced fractures within anterior, posterior maxillary sinus cano; mildly angulated fracture of lateral left pterygoid plate; angulated fracture of bony nasal septum. -Head CT negative for intracranial abnormality; facial contusions with right forehead hematoma. * Admit to MedSurg * IV Tylenol 1000 mg every 8 hours scheduled * IV Dilaudid as needed for breakthrough pain * IV doxycycline for infection prophylaxis. * Oral maxillofacial surgery consult placed. Appreciate recs. Syncope -Unclear etiology. Differential diagnosis includes orthostatic hypotension, V. tach, heart block, vasovagal. -Patient last remembers walking toward the trunk of her car before waking up on the pavement. -Denies prodromal palpitations, vision changes, dyspnea, or lightheadedness. -No intracranial abnormality on CT head. -Patient has Medtronic VVI pacer installed (May 2016) for tachybradycardia syndrome; VT >4 beats occurring 50 times since September 21, 2021, longest episode <1 second, per report. -History of diastolic CHF managed by Dr. Marcos. Patient declared stable at last visit in March 2022. * Echocardiogram pending in a.m. * Consider cardiology consult for further work-up if echo results noncontributory * Neurochecks every 4 hours * Continuing antihypertensive meds as patient was and remains hypertensive. Atrial fibrillation/history of DVTs -On Xarelto due to extensive history of DVTs, atrial fibrillation. -[id number] score of 9. * Xarelto held on admission. * Initiate low-dose IV heparin without bolus in the a.m. DM2 -Patient takes Sitagliptin at home * SSI insulin, per protocol * A.m. hemoglobin A1c Hypertension * Continue antihypertensives (amlodipine, losartan, Imdur) * Trend vitals Hyperlipidemia * Continue simvastatin COPD with asthma, emphysema * Continue Trelegy, as needed albuterol inhaler. Code: Full code (has advanced directive) Dispo: Med-Surg telemetry FEN/GI: NPO. IV NS@maintenance rate DVT Prophylaxis: Low-dose IV heparin without bolus to be initiated in the a.m. PT/OT: Yes Consults: Oral maxillofacial surgery (2) Syncope: (3) Fall: (4) Tachycardia-bradycardia syndrome: (5) nursing home (current) use of anticoagulants: (6) Type 2 diabetes mellitus: (7) Congestive heart failure: (8) COPD with asthma: History of Present Illness Primary Care Provider: Dagoberto Headley MD Cammy is an 82-year-old woman with a history of CAD ([place] in 1992), permanent atrial fibrillation, multiple prior DVTs on Xarelto, diastolic CHF, tachycardia- bradycardia syndrome (May 2016, VVI pacer), DM 2, COPD, asthma, hyperlipidemia, and hypertension who presents today after a fall at home. In the ED, vitals were normal save for slightly elevated BP. CBC revealed normal hemoglobin. Creatinine was elevated at 1.52, which is not far from her baseline. Troponin was slightly elevated at 15.3. CT of the face revealed bilateral nasal bone fractures with mild comminution and displacement, nondisplaced maxillary sinus fractures within the anterior and posterior cano, a "mildly angulated fracture of the lateral left pterygoid plate," and angulated fracture of the bony nasal septum. Head CT and cervical spine CT were negative, as were x-rays of the hand, knee, hip/pelvis. She received IV Tylenol and morphine for pain, and was started on maintenance rate fluids. On admission, she reports she is still unsure what happened. She reports she had just returned home from her son's place, and was walking to the trunk of her car, that was the last thing she remembered. When she awoke she was on the ground and "was hemorrhaging like crazy." She called 911 herself and was brought to the emergency room. She continues to report headache, photosensitivity, and right-sided ocular pressure from the hematoma. Otherwise, she denies vision changes, extraocular movement restriction, jaw pain chest pain, shortness of breath, lightheadedness, or vertigo. This has never happened to her before. Allergies Allergy/AdvReac Type Severity Reaction Status Date / Time chlorthalidone Allergy Severe Swelling Verified 08/05/22 20:54 of Lip/Tongue/Throat Penicillins Allergy Severe Swelling Verified 08/05/22 20:54 of Lip/Tongue/Throat MANDEEP Inhibitors Allergy Unknown Unknown Verified 08/05/22 20:54 trazodone Allergy Unknown Unknown Verified 08/05/22 20:54 Home Medications Medication Instructions Recorded Confirmed Type calcium citrate 250 mg 1 tab PO QAM 11/07/18 08/05/22 History calcium-vitamin D3 5 mcg (200 unit) tablet cranberry concentrate-ascorbic 1 cap PO DAILY 11/07/18 08/05/22 History acid 4,200 mg-20 mg capsule multivitamin 1 tab PO QAM 11/07/18 08/05/22 History amlodipine 10 mg tablet 10 mg PO DAILY #90 tabs 09/12/21 08/05/22 Rx cholecalciferol (vitamin D3) 50 50 mcg PO BID #30 caps 09/12/21 08/05/22 Rx mcg (2,000 unit) capsule nitroglycerin 0.4 mg sublingual 0.4 mg sublingual UD PRN chest 09/12/21 08/05/22 Rx tablet pain #20 tabs sitagliptin phosphate 25 mg tablet 25 mg PO QAM #90 tabs 09/12/21 08/05/22 Rx (Januvia) atenolol 50 mg tablet 50 mg PO QAM #90 tabs 01/10/22 08/05/22 Rx losartan 25 mg tablet 25 mg PO QAM #90 tabs 01/10/22 08/05/22 Rx rivaroxaban 15 mg tablet (Xarelto) 15 mg PO .COMPLEX #90 tabs 01/10/22 08/05/22 Rx simvastatin 20 mg tablet 20 mg PO HS #90 tabs 01/10/22 08/05/22 Rx albuterol sulfate 90 mcg/actuation 2 puff inhalation Q4H PRN 02/21/22 08/05/22 Rx aerosol inhaler (Ventolin HFA) shortness of breath or wheezing #18 grams fluticasone fur. 100 mcg-umeclid 1 inh inhalation DAILY #3 Inhalers 02/21/22 08/05/22 Rx 62.5 mcg-vilant 25 mcg inhalat.powder (Trelegy Ellipta) zolpidem 5 mg tablet 5 mg PO QPM #30 tabs 05/29/22 08/05/22 Rx furosemide 20 mg tablet 20 mg PO QAM 90 days #90 tabs 07/02/22 08/05/22 Rx isosorbide mononitrate 30 mg 90 mg PO QAM #270 tabs 08/01/22 08/05/22 Rx tablet,extended release 24 hr Past Med/Surg History Medical History Acute anterior epistaxis Acute lower gastrointestinal bleeding Acute posterior epistaxis Anemia Anticoagulant long-term use Atrial fibrillation permanent, now s/p PPM (2016) Bradycardia CAD (coronary artery disease) [place] (1992) CHF (congestive heart failure) follows with [facility] (Dr. Marcos) Chronic diastolic CHF (congestive heart failure) Chronic kidney disease, stage 3 [place] [place] Chronic respiratory failure with hypoxia COPD (chronic obstructive pulmonary disease) 2L HS + occasionally PRN, follows with [facility] COPD with asthma COPD with emphysema Deep vein thrombosis B/L LE (1967), Diabetes mellitus, type 2 NIDDM Dysfunction of left eustachian tube Encounter for pre-operative examination Encounter for pre-operative examination GI bleed Hearing deficit History of kidney cancer s/p L nephrectomy (1997) Hyperlipidemia controlled Hypertension controlled Insomnia Insomnia Intractable back pain Leg swelling Mixed conductive and sensorineural hearing loss of left ear with restricted hearing of right ear Osteoarthritis Osteoporosis Pacemaker Implanted 2016, Medtronic, last check 09/2019 Pulmonary nodule per records Restless leg syndrome Syncope UTI (urinary tract infection) Vitamin D deficiency Surgical History History of cardiac cath 10+ years ago, no stents History of cholecystectomy History of colonoscopy History of hip surgery R/L NABEEL History of myringotomy + Left ear tube removal: 06/09/19: LMA#4 atraumatic at [facility] History of nephrectomy left History of vaginal hysterectomy Hx of bilateral cataract extraction Status post placement of cardiac pacemaker 2016 Family History Brother Hypertension Mother Cardiac disorder Sister Lung cancer Aunt Lung cancer Father Pneumonia Unknown Family history of allergies Environmental allergies Denies family history of Ovarian cancer Prostate cancer Myocardial infarction Breast cancer Colorectal cancer Social History Smoking Status: Former smoker Tobacco Type: Cigarettes Age Started Using Tobacco: 26; Age Quit Using Tobacco: 55; packs per day: 1; Cigarettes Per Day: 20; Second Hand Exposure: No; Hx Alcohol Use: No Hx Substance Use: No Preferred Language: Bermudian Communication Ability: Effective Visual Impairment: No Limitations Hearing Ability: Hard of Hearing Milk Deliverer Required: No Beliefs That Will Affect Care: None marital status: / Current Living Situation: Alone Current Living Situation Comment: [facility]. current occupational status: retired current occupation: worked at [employer] Other Information That Helps Us Care for You: No Feels Safe at Home: Yes Safety Concerns: Feels Safe At This Time Childhood Exposure to Second-Hand Smoke: No Diet Comment: Low sugar/ Sugar free options when possible caffeine: Yes (2 cups of coffee daily ) Dental Care, Regularly: No Physical Activity Frequency: Daily Seatbelt Use: always Sunscreen Use: Yes Assistive Devices: Walker Review of Systems Review of Systems: All systems reviewed & are unremarkable except as noted in HPI & below Physical Exam Physical Exam: General: No acute distress HEENT: Large forehead hematoma above right eye. Bilateral infraorbital hematoma and bruising. Bruised, swollen jawline on the left. Nasal septal exam obstructed by clotted blood. No Burgos's sign. No raccoon eyes. Clotted blood seen in posterior oropharynx. Normal pupillary light reflex. EOM intact. Respiratory: Normal respiratory effort, CTABL. No chest wall bruising. Cardiovascular: RRR. Systolic ejection murmur heard loudest at LUSB. No gallops, or rubs. No pedal edema. GI: Soft abdomen without bruising, and with normal bowel sounds on auscultation. Nontender x4 quadrants Neuro: Alert and oriented x3. Results & Data Results & Data Vital Signs (Past 12 Hours) Vital Signs Temp Pulse Pulse Resp BP BP Pulse Ox 08/05/22 20:00 60 16 169/72 H 90 08/05/22 18:15 64 20 166/77 H 93 08/05/22 17:09 92 08/05/22 17:11 62 08/05/22 16:38 36.5 C 60 20 157/95 H 93 O2 Del Method 08/05/22 20:00 Room Air 08/05/22 18:15 Room Air 08/05/22 17:09 Room Air 08/05/22 17:11 08/05/22 16:38 Room Air Supervising Physician Co-Signing Physician Notes Patient seen and examined, chart reviewed, case discussed with Dr. Cuello and I agree with the assessment and plan as above. In brief, patient is an 82yo female with history of CAD, AF on Rivaroxaban anticoagulation and tachy-joe syndrome with pacemaker in place presents after syncopal event at home. Patient was standing at her car then remembers waking up face down "hemorrhaging like crazy". Workup significant for bilateral nasal bone fractures with mild comminution and displacement, nondisplaced maxillary sinus fractures within the anterior and posterior cano, a "mildly angulated fracture of the lateral left pterygoid plate," and angulated fracture of the bony nasal septum. On exam patient is afebrile, HD stable, AA&O x 4 Extensive periorbital ecchymosis bilaterally, blood in nares and old blood present in mouth PERRL, EOMI, Tube present in left ear, no hemotympanum, no septal hematoma, negative Burgos sign +S1/S2, no chest wall ecchymosis Lungs CTA Abd soft, NT/ND, no abdominal bruising Ext - warm, well perfused, no clubbing/cyanosis or edema Labs and images reviewed Assessment/Plan s/p syncope with nasal bone and maxillary sinus fracture. Patient on anticoagulation for AF and history of VTE -Hold anticoagulation for now -Pain control -Doxycycline for prophylactic treatment given sinus fracture -Echo for syncope workup -Remainder of plan as above Resident Activity Tracking Resident Involvement: Resident Care Provided Care Provided: Adult Hospital Medicine (1) Multiple facial bone fractures Encounter type: initial encounter
[2022-08-05] MEDS ORDERED: ACETAMINOPHEN 325 MG TAB PO STA (22:47)
[2022-08-06] MEDS ORDERED: ALBUTEROL HFA 8 GM INHALER INH PRN (00:03)
[2022-08-06] MEDS ORDERED: HYDROmorphone INJ 0.5 MG/0.5 ML SYR IV PRN (00:26)
[2022-08-06 01:00] LABS: Appearance Urine Turbid (Clear); Bacteria Urine Automated 4+ (Negative); Bilirubin Urine Negative (Negative); Blood Urine 1+ (Negative); Color Urine Yellow; Epithelial Cell Urine Auto 20-30 /lpf (0-5); Glucose Urine UA Negative (Negative); Ketones Urine Negative (Negative); Leukocyte Esterase Urine 2+ (Negative); Nitrite Urine Negative (Negative); Protein Urine Negative (Negative); RBC Urine Automated 0-4 /hpf (0-4); Specific Gravity Urine 1.018 (1.000-1.030); Urobilinogen Urine Negative (Negative); WBC Urine Automated >30 /hpf (0-5); pH Urine 5.5 (4.5-7.5)
[2022-08-06] MEDS: HYDROmorphone INJ 0.5 MG/0.5 ML SYR IV PRN ×2 (01:14→11:12)
[2022-08-06] MEDS ORDERED: Heparin IV Adult Wt-Based Low-Dose *NO* Bolus Protocol IV ONE (01:24)
[2022-08-06] MEDS ORDERED: CARBOHYDRATES FOR HYPOGLYCEMIA PO PRN (01:38)
[2022-08-06] MEDS ORDERED: GLUCAGON FOR INJ 1 MG VIAL SQ PRN (01:38)
[2022-08-06] MEDS ORDERED: GLUCOSE 10 TAB/TUBE PO PRN (01:38)
[2022-08-06] MEDS ORDERED: DEXTROSE 50% 50 ML SYRINGE IV PRN (01:38)
[2022-08-06] MEDS ORDERED: GLUCOSE 40% GEL 15 GM TUBE PO PRN (01:38)
[2022-08-06] MEDS ORDERED: Heparin IV Adult Wt-Based Low-Dose *NO* Bolus Protocol IV SCH (01:45)
[2022-08-06] MEDS: HEPARIN SODIUM/DEXTROSE 25,000 UNITS/500 ML BAG IV SCH (02:06)
[2022-08-06] MEDS: DOXYCYCLINE HYCLATE 100 MG in DEXTROSE 5% 100 ML IV SCH ×2 (02:51→15:04)
[2022-08-06] MEDS: ACETAMINOPHEN 1,000 MG/100 ML VIAL IV SCH ×3 (05:09→20:23)
--- NOTE | 2022-08-06 07:46 | XRay Report ---
XR knee RT 1 or 2V routine CLINICAL HISTORY: trauma TECHNIQUE: 2 views of the right knee were obtained. Comparison: Comparison is made to the radiograph 06/01/2013 FINDINGS: There is no evidence of an acute fracture. Joint space narrowing and osteophyte formation is seen mos t prominently in the medial compartment. No joint effusion is seen. Vascular calcifications are noted . IMPRESSION: Degenerative changes without evidence of acute injury. ACT 112: Negative or not required by law. Electronically signed by: Dustin Danielson M.D. 08/06/2022 7:45 AM
--- NOTE | 2022-08-06 07:47 | XRay Report ---
XR hip LT 2V w pelvis CLINICAL HISTORY: trauma TECHNIQUE: 2 views of the left hip and single frontal view of the pelvis were obtained. Comparison: Comparison is made to pelvic radiograph 05/09/2017 FINDINGS: There is no evidence of an acute fracture. Bilateral total hip arthroplasty is seen. Degenerative sergo nges are seen in the lumbar spine. No soft tissue abnormality is seen. IMPRESSION: No acute abnormalities. Bilateral total hip arthroplasties without evidence of periarticular lucency or hardware fracture. ACT 112: Negative or not required by law. Electronically signed by: Dustin Danielson M.D. 08/06/2022 7:46 AM
[2022-08-06] MEDS ORDERED: NON-FORMULARY MEDICATION (Fluticasone-Umeclidin-Vilanter [Trelegy Ellipta] 100-62.5-25 mcg INH SCH (09:00)
[2022-08-06] MEDS: INSULIN ASPART PER UNIT CHARGE SC SCH ×4 (09:01→23:03)
[2022-08-06] MEDS: SODIUM CHLORIDE 0.9% 1000ML 1,000 ML IV SCH ×2 (09:05→17:27)
[2022-08-06] MEDS: ISOSORBIDE MONO EXTENDED REL 30 MG TABCR PO SCH (09:06)
[2022-08-06] MEDS: ATENOLOL 50 MG TABLET PO SCH (09:08)
[2022-08-06] MEDS: LOSARTAN POTASSIUM 25 MG TAB PO SCH (09:08)
[2022-08-06] MEDS: amLODIPine BESYLATE 5 MG TAB PO SCH (09:08)
[2022-08-06] MEDS: FLUTICASONE FUROATE 100MCG 14 PUFFS/INHALER INH SCH (09:09)
[2022-08-06] MEDS: UMECLIDINIUM/VILANTEROL 62.5/25MCG 7 PUFFS/INHALER INH SCH (09:10)
[2022-08-06 09:55] LABS: Basophils # (auto) 0.05 K/uL (0-0.2); Basophils % (auto) 0.7 %; Calcium 8.6 mg/dl (8.6-10.3); Creatinine Clr Calc Pharmacy 30.9 ml/min; Eosinophils # (auto) 0.15 K/uL (0-0.50); Eosinophils % (auto) 2.1 %; Est GFR (African American) 38.6 ml/min; Est GFR (Non-African American) 33.3 ml/min; Hematocrit (blood only) 30.3 % (37.0-47.0); Hemoglobin 10.3 g/dl (12.0-16.0); Immature Granulocytes # (auto) 0.04 K/uL (0.01-0.20); Immature Granulocytes % (auto) 0.6 %; Lymphocytes # (auto) 1.78 K/uL (1.2-3.4); Lymphocytes % (auto) 25.1 %; Magnesium 1.9 mg/dl (1.7-2.4); Mean Corpuscular Hemoglobin 31.3 pg (25.0-34.0); Mean Corpuscular Volume 92.1 fL (80.0-100.0); Mean Platelet Volume 10.4 fL (9.4-12.4); Monocytes % (auto) 9.9 %; Neutrophils # (auto) 4.38 K/uL (1.40-6.50); Neutrophils % (auto) 61.6 %; Phosphorus 3.4 mg/dl (2.5-4.9); Platelet Count 136 K/uL (130-400); Potassium 4.1 mmol/L (3.5-5.1); RDW Coefficient of Variation 12.7 % (11.5-14.5); RDW Standard Deviation 42.8 fL (36.4-46.3); Red Blood Count 3.29 M/uL (4.20-5.40)
--- NOTE | 2022-08-06 10:04 | XCELERA ---
[id number] [id number]
[2022-08-06 10:06] LABS: Partial Thromboplastin Ratio 1.5; Partial Thromboplastin Time 40.7 Seconds (21.0-31.0)
[2022-08-06 10:24] LABS: Estimated Average Glucose 126 mg/dl
--- NOTE | 2022-08-06 10:45 | Electrocardiogram Report ---
Test Reason : Blood Pressure : / mmHG Vent. Rate : 069 BPM Atrial Rate : 056 BPM P-R Int : 000 ms QRS Dur : 170 ms QT Int : 492 ms P-R-T Axes : 000 -83 093 degrees QTc Int : 527 ms Ventricular-paced rhythm with occasional Premature ventricular complexes Abnormal ECG When compared with ECG of 24-JUN-2021 10:14, Vent. rate has decreased BY 12 BPM Confirmed by Dagoberto Novak ([id number]) on 08/06/2022 10:45:41 AM Referred By: REFERRED SELF Confirmed By:Srini Novak
--- NOTE | 2022-08-06 13:58 | Hospitalist Progress Note ---
Date of Service August 06, 2022 Assessment & Plan (1) Multiple facial bone fractures: Plan: 82 F with PMH CAD (), permanent A-fib, multiple prior DVTs (on Xarelto), diastolic CHF, tachycardia-bradycardia syndrome (s/p VVI pacer in 2017) DM2, COPD with asthma, hyperlipidemia, hypertension, who presents today after a fall and is being admitted to the hospital for further management following multiple facial bone fractures. Facial bone fractures -Face CT: Bilateral nasal bone fractures + mild comminution, displacement; nondisplaced fractures within anterior, posterior maxillary sinus cano; mildly angulated fracture of lateral left pterygoid plate; angulated fracture of bony nasal septum. -Head CT negative for intracranial abnormality; facial contusions with right forehead hematoma. * Admit to MedSurg * IV Tylenol 1000 mg every 8 hours scheduled * IV Dilaudid as needed for breakthrough pain * IV doxycycline for infection prophylaxis. --- OMFS recommending conservative management and outpatient followup. Advised continue hold on Rivaroxaban w/ ongoing use of Heparin. Will restart home anticoagulation pending 24-48 hours of proven hemostasis. --- Continue pain management and ppx antibiotics Syncope -Unclear etiology. Differential diagnosis includes orthostatic hypotension, V. tach, heart block, vasovagal. -Patient last remembers walking toward the trunk of her car before waking up on the pavement. -Denies prodromal palpitations, vision changes, dyspnea, or lightheadedness. -No intracranial abnormality on CT head. -Patient has Medtronic VVI pacer installed (May 2016) for tachybradycardia syndrome; VT >4 beats occurring 50 times since September 21, 2021, longest episode <1 second, per report. -History of diastolic CHF managed by Dr. Marcos. Patient declared stable at last visit in March 2022. * Echocardiogram pending in a.m. * Consider cardiology consult for further work-up if echo results noncontributory * Neuro checks every 4 hours * Continuing antihypertensive meds as patient was and remains hypertensive. --- Echocardiogram indicating L atrial dilation (severe), R atrial dilation (moderately), aortic stenosis (moderate), mitral regurgitation (mod-severe), tricuspid regurg (moderate), and elevated RVSP (50-60 mmHg) --- Carotid Duplex ordered --- Continue telemetry and neuro-checks --- Will consult patient's Mountain Services Manager for additional advisement regarding syncope in the setting of and known tachy-joe syndrome Atrial fibrillation/history of DVTs -On Xarelto due to extensive history of DVTs, atrial fibrillation. -[id number] score of 9. * Xarelto held on admission. * Initiate low-dose IV heparin without bolus in the a.m --- Anticoagulation plan above DM2 -Patient takes Sitagliptin at home * SSI insulin, per protocol * A.m. hemoglobin A1c Hypertension * Continue antihypertensives (amlodipine, losartan, Imdur) * Trend vitals Hyperlipidemia * Continue simvastatin COPD with asthma, emphysema * Continue Trelegy, as needed albuterol inhaler. Code: Full code (has advanced directive) Dispo: Med-Surg telemetry FEN/GI: NPO. IV NS@maintenance rate DVT Prophylaxis: Low-dose IV heparin without bolus to be initiated in the a.m. PT/OT: Yes Consults: Oral maxillofacial surgery (2) Syncope: (3) Fall: (4) Tachycardia-bradycardia syndrome: (5) [facility] (current) use of anticoagulants: (6) Type 2 diabetes mellitus: (7) Congestive heart failure: (8) COPD with asthma: Plan ATTESTATION I also saw the patient and confirmed gamez portions of the history and exam. I also personally discussed the case with the surgical forceps fabricator. I agree with the impression and plan in the resident documentation, and as summarized below. Late this morning, the patient is lying semireclined in bed. She had some pain medication and feels little bit better. We reviewed the events of yesterday - she still has no recollection of how or why she fell. EXAM 136/68, 72, 18, 36.3, 97% on nasal cannula 2 L/min She is pleasant. No acute distress. She is oriented and conversational. She seems to have no problems with mentation/recall with the exception of events surrounding the fall yesterday. Significant ecchymosis of the face, malformation of the nasal bridge, edema across the forehead, most noted superior lateral to the right eye. Dried blood appreciated in the nares. Her voice has a "nasally" quality. Heart Regular, 2/6 systolic murmur heard best at the upper sternal border. Respirations nonlabored; lungs clear The right hand is bandaged DATA Labs Hemoglobin 10.3 Sodium 140, potassium 4.1, BUN 36, creatinine 1.44 A1c 6% Imaging All imaging done 08/05/2022 * X-ray right hand negative * CT cervical spine negative for traumatic injury * CT of the facial bones shows multiple facial fractures * CT of the head/brain without contrast shows no intracranial injury. * X-ray of the pelvis, hip, and right knee are negative for acute bony injury. Micro Urine culture collected 08/06/2022 is pending IMPRESSION & PLAN Syncopal episode with fall, multiple facial bone fractures History of atrial fibrillation and VTE, on chronic anticoagulation Appreciate surgical consultation Continue IV heparin for today; if no problems in terms of bleeding, consider resuming Xarelto tomorrow Echocardiogram pending; consider cardiology consultation with regards to syncope in the setting of history of tachybradycardia syndrome and aortic stenosis Check carotid Dopplers PT/OT consultation Additional per resident documentation Admission and Anticipated Discharge Date Admission Date: August 05, 2022 Zuly Chawla is an 82F with history of HLD, DM, single kidney (s/p nephrectomy for cancer), anticoagulation (A Fib), tachy-joe syndrome, secondary hyperparathyroidism, renal artery stenosis, RLS, pulmonary emphysema, CHF, COPD, CKD3, HTN, and peptic ulcer disease who presented due to a fall at home and was admitted for management and evaluation of syncope. This morning the patient notes that her face remains painful and she is having difficulty breathing through her nose. She also notes blurred vision in her right eye, without any associated eye pain or pain with EOM. Patient notes that she had spent the day out going to the doctor and visiting her son, when she got home and was walking towards her hosue she fell, patient notes that she had no proceeding symptoms and did not trip. She awakened and noticed significant bleeding and called 911 herself. Her ventricular pacer was evaluated and did not indicate any ventricular events. Patient has a known history of severe aortic stenosis and follows chronically with Dr. Marcos. She denies any active chest pain or dyspnea. She notes some aching in her wrist a/w her fall, but denies any additional abdominal discomfort or bowel/bladder changes. Review of Systems Review of Systems: As per HPI Physical Exam Physical Exam: General: No acute distress, patient conversive and in good spirits HEENT: Large forehead hematoma above right eye. Bilateral infraorbital hematoma and bruising. Notable ecchymosis surrounding bilateral eyes. Abrasion present on right side of nose. Appropriate hemostasis of abrasions. EOMI/TURNER, no pain with eye movement. Clotted blood remains in nares. Evidence of palatal and superior lip abrasions with good hemostasis. Respiratory: Normal respiratory effort, CTABL. No chest wall bruising. Cardiovascular: RRR. Systolic ejection murmur heard loudest at RUSB/LUSB. No gallops, or rubs. No pedal edema. GI: Soft abdomen without bruising, and with normal bowel sounds on auscultation. Nontender x4 quadrants Neuro: Alert and oriented x3. Results & Data Results & Data Vital Signs (Past 12 Hours) Vital Signs Temp Pulse Pulse Pulse Resp BP Pulse Ox 08/06/22 12:33 08/06/22 11:01 72 08/06/22 10:39 08/06/22 10:31 36.3 C L 61 18 136/68 95 08/06/22 07:49 36.4 C L 61 16 157/67 H 94 Pulse Ox Pulse Ox O2 Del Method O2 Flow Rate O2 Flow Rate O2 Flow Rate 08/06/22 12:33 97 96 2 2 08/06/22 11:01 08/06/22 10:39 Nasal Cannula 2 08/06/22 10:31 Room Air 08/06/22 07:49 Nasal Cannula 2 Resident Activity Tracking Resident Involvement: Resident Care Provided Care Provided: Adult Hospital Medicine (1) Multiple facial bone fractures Encounter type: initial encounter
[2022-08-06 16:28] LABS: Partial Thromboplastin Ratio 1.5; Partial Thromboplastin Time 41.3 Seconds (21.0-31.0)
--- NOTE | 2022-08-06 20:03 | Ultrasound Report ---
CAROTID ARTERY ULTRASOUND CLINICAL HISTORY: Syncope. COMPARISON STUDY: Carotid ultrasound December 22, 2013. TECHNIQUE: Real-time, grayscale, and color Doppler sonography of the carotid and vertebral arteries w as performed. Images were viewed in the transverse and longitudinal planes. FINDINGS: There is moderate atherosclerotic plaque. Velocity measurements are listed below. COMMON CAROTID PEAK SYSTOLIC VELOCITY (CM/S): RIGHT 88 LEFT 92 ICA PEAK SYSTOLIC VELOCITY (CM/S): RIGHT 87 LEFT 131 Mildly elevated peak systolic velocity within the left internal carotid artery is noted however the s ystolic ratio between the left internal to common carotid artery is normal. Therefore, there is no ev idence for a hemodynamically significant stenosis. Antegrade flow is seen in the vertebral arteries. The external carotid arteries are patent. IMPRESSION: Moderate atherosclerotic plaque plaque without sonographic evidence for a hemodynamicall y significant stenosis. ACT 112: Negative or not required by law. Electronically signed by: Jorgito Oseguera M.D. 08/06/2022 8:02 PM
[2022-08-06] MEDS: SIMVASTATIN 20 MG TAB PO SCH (20:22)
[2022-08-06] MEDS: ZOLPIDEM TARTRATE 5 MG TAB PO SCH (20:22)
[2022-08-07 00:10] LABS: Partial Thromboplastin Ratio 1.6; Partial Thromboplastin Time 44.5 Seconds (21.0-31.0)
[2022-08-07] MEDS: DOXYCYCLINE HYCLATE 100 MG in DEXTROSE 5% 100 ML IV SCH ×2 (01:42→14:54)
[2022-08-07] MEDS: HYDROmorphone INJ 0.5 MG/0.5 ML SYR IV PRN ×2 (01:43→17:09)
[2022-08-07] MEDS: SODIUM CHLORIDE 0.9% 1000ML 1,000 ML IV SCH ×2 (01:44→14:54)
[2022-08-07] MEDS: ACETAMINOPHEN 1,000 MG/100 ML VIAL IV SCH ×3 (03:42→21:24)
[2022-08-07] MEDS: HEPARIN SODIUM/DEXTROSE 25,000 UNITS/500 ML BAG IV SCH (05:46)
[2022-08-07 07:10] LABS: Hematocrit (blood only) 29.5 % (37.0-47.0); Hemoglobin 9.7 g/dl (12.0-16.0); Mean Corpuscular Hgb Conc 32.9 g/dL (32.0-36.0); Mean Corpuscular Volume 94.2 fL (80.0-100.0); Platelet Count 143 K/uL (130-400); RDW Standard Deviation 44.5 fL (36.4-46.3); Red Blood Count 3.13 M/uL (4.20-5.40); White Blood Count 6.97 K/ul (4.8-10.8)
[2022-08-07 07:15] LABS: Calcium 8.4 mg/dl (8.6-10.3); Creatinine Clr Calc Pharmacy 32.7 ml/min; Est GFR (African American) 40.2 ml/min; Est GFR (Non-African American) 34.7 ml/min; Phosphorus 3.6 mg/dl (2.5-4.9); Potassium 4.2 mmol/L (3.5-5.1)
--- NOTE | 2022-08-07 07:29 | Oral/Maxillofacial Consult ---
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 Cammy is an 82F with history of HLD, DM, single kidney (s/p nephrectomy for cancer), anticoagulation (A Fib), tachy-joe syndrome, secondary hyperparathyroidism, renal artery stenosis, RLS, pulmonary emphysema, CHF, COPD, CKD3, HTN, and peptic ulcer disease who presented due to a fall at home and was admitted for management and evaluation of syncope Patient notes that she had spent the day out going to the doctor and visiting her son, when she got home and was walking towards her house she fell, patient notes that she had no proceeding symptoms and did not trip. She awakened and noticed significant bleeding and called 911 herself. Cammy is an 82F with history of HLD, DM, single kidney (s/p nephrectomy for cancer), anticoagulation (A Fib), tachy-joe syndrome, secondary hyperparathyroidism, renal artery stenosis, RLS, pulmonary emphysema, CHF, COPD, CKD3, HTN, and peptic ulcer disease who presented due to a fall at home and was admitted for management and evaluation of syncope 08-07-22 less swelling today less eye blurry vision No bleeding Still nasal congestion OK to re start the Xarelto I understand she will be transfer to a rehab facility--please make sure that a follow up appointment with me in my office is arranged sometimes next week. Oral Exam: Edentulous atrophic upper/lower ridges. small upper left ridge contusion secondary from the upper denture Max/Muriel area stable Imaging: CT facial bones wo con CLINICAL HISTORY: 82 years-old Female presenting with Fall on Xarelto. Acute facial pain status post fall FINDINGS: Hyperostosis frontalis interna. 4.4 cm right forehead scalp hematoma. Prior bilateral lens repair. Moderate soft tissue swelling surrounding the nose. Acute bilateral nasal bone fractures with mild comminution on the left and slight bilateral displacement/angulation. Sigmoidal bowing and angulation the nasal septum with a few nondisplaced acute appearing fractures. Appear intact. The zygomatic arches are intact. Subtle acute nondisplaced fractures involve the anterior and posterior cano of the maxillary sinuses. Subtle acute nondisplaced fracture involves the left lateral pterygoid plate. Moderate to severe mucosal thickening with secretions within the paranasal sinuses. Right maxillary and sphenoid sinus air-fluid levels. The mandible appears intact. IMPRESSION: 1. Acute bilateral nasal bone fractures with mild comminution and displacement. 2. Acute nondisplaced fractures within the anterior and posterior cano of the maxillary sinuses. 3. Acute mildly angulated fracture of the lateral left pterygoid plate. 4. Acute angulated fractures of the bony nasal septum. 5. Moderate to severe mucosal thickening with secretions noted within the paranasal sinuses. Soft tissue: Nose is swollen and displaced.Dry blood left nostril floor of the mouth, tongue, hard/soft palate, posterior pharyngeal area all with in normal limits, no pathology or abnormal findings noted. Eyes-swollen but good ROM, has some blurry vision--but improving Nose-swollen with deviation and congestion No new bleeding TMJ exam: No pop, clicking, pain, good ROM, No history of TMJ injury or dysfunction Head/Neck exam: Neck is supple, FROM, Able to extend and flex neck w/o difficulty, no masses, no abnormalities, no airway issues, no evidence of sleep apnea. Treatment Plan: With all the swelling noted I would allow the swelling to subside for a few days and re evaluate Mrs. Zhu in my office and then decide if any nasal reduction will be necessary. There are a lot of small insignificant fractures of the maxillary sinus which will not require any surgical treatment. OK to restart Xarelto as there has been no re bleeding. Risks discussed: Bleeding,Pain,swelling,infection,delayed healing, nasal congestion and sinus problems. Possible need for nasal fracture reduction once all the swelling has subsided. Allergies Allergy/AdvReac Type Severity Reaction Status Date / Time chlorthalidone Allergy Severe Swelling Verified 08/05/22 20:54 of Lip/Tongue/Throat Penicillins Allergy Severe Swelling Verified 08/05/22 20:54 of Lip/Tongue/Throat MANDEEP Inhibitors Allergy Unknown Unknown Verified 08/05/22 20:54 trazodone Allergy Unknown Unknown Verified 08/05/22 20:54 Home Medications Medication Instructions Recorded Confirmed Type calcium citrate 250 mg 1 tab PO QAM 11/07/18 08/05/22 History calcium-vitamin D3 5 mcg (200 unit) tablet cranberry concentrate-ascorbic 1 cap PO DAILY 11/07/18 08/05/22 History acid 4,200 mg-20 mg capsule multivitamin 1 tab PO QAM 11/07/18 08/05/22 History amlodipine 10 mg tablet 10 mg PO DAILY #90 tabs 09/12/21 08/05/22 Rx cholecalciferol (vitamin D3) 50 50 mcg PO BID #30 caps 09/12/21 08/05/22 Rx mcg (2,000 unit) capsule nitroglycerin 0.4 mg sublingual 0.4 mg sublingual UD PRN chest 09/12/21 08/05/22 Rx tablet pain #20 tabs sitagliptin phosphate 25 mg tablet 25 mg PO QAM #90 tabs 09/12/21 08/05/22 Rx (Januvia) atenolol 50 mg tablet 50 mg PO QAM #90 tabs 01/10/22 08/05/22 Rx losartan 25 mg tablet 25 mg PO QAM #90 tabs 01/10/22 08/05/22 Rx rivaroxaban 15 mg tablet (Xarelto) 15 mg PO .COMPLEX #90 tabs 01/10/22 08/05/22 Rx simvastatin 20 mg tablet 20 mg PO HS #90 tabs 01/10/22 08/05/22 Rx albuterol sulfate 90 mcg/actuation 2 puff inhalation Q4H PRN 02/21/22 08/05/22 Rx aerosol inhaler (Ventolin HFA) shortness of breath or wheezing #18 grams fluticasone fur. 100 mcg-umeclid 1 inh inhalation DAILY #3 Inhalers 02/21/22 08/05/22 Rx 62.5 mcg-vilant 25 mcg inhalat.powder (Trelegy Ellipta) zolpidem 5 mg tablet 5 mg PO QPM #30 tabs 05/29/22 08/05/22 Rx furosemide 20 mg tablet 20 mg PO QAM 90 days #90 tabs 07/02/22 08/05/22 Rx isosorbide mononitrate 30 mg 90 mg PO QAM #270 tabs 08/01/22 08/05/22 Rx tablet,extended release 24 hr Patient History Medical History Acute anterior epistaxis Acute lower gastrointestinal bleeding Acute posterior epistaxis Anemia Anticoagulant long-term use Atrial fibrillation permanent, now s/p PPM (2017) Bradycardia CAD (coronary artery disease) [place] (1992) CHF (congestive heart failure) follows with [facility] (Dr. Marcos) Chronic diastolic CHF (congestive heart failure) Chronic kidney disease, stage 3 follows with nephrology ([facility]/Dr. Richard) Chronic respiratory failure with hypoxia COPD (chronic obstructive pulmonary disease) 2L HS + occasionally PRN, follows with [facility] COPD with asthma COPD with emphysema Deep vein thrombosis B/L LE (1967), Diabetes mellitus, type 2 NIDDM Dysfunction of left eustachian tube Encounter for pre-operative examination Encounter for pre-operative examination GI bleed Hearing deficit History of kidney cancer s/p L nephrectomy (1997) Hyperlipidemia controlled Hypertension controlled Insomnia Insomnia Intractable back pain Leg swelling Mixed conductive and sensorineural hearing loss of left ear with restricted hearing of right ear Osteoarthritis Osteoporosis Pacemaker Implanted 2016, Medtronic, last check 09/2019 Pulmonary nodule per records Restless leg syndrome Syncope UTI (urinary tract infection) Vitamin D deficiency Surgical History History of cardiac cath 10+ years ago, no stents History of cholecystectomy History of colonoscopy History of hip surgery R/L NABEEL History of myringotomy + Left ear tube removal: 06/09/19: LMA#4 atraumatic at [facility] History of nephrectomy left History of vaginal hysterectomy Hx of bilateral cataract extraction Status post placement of cardiac pacemaker 2016 Family History Brother Hypertension Mother Cardiac disorder Sister Lung cancer Aunt Lung cancer Father Pneumonia Unknown Family history of allergies Environmental allergies Denies family history of Ovarian cancer Prostate cancer Myocardial infarction Breast cancer Colorectal cancer Social History Smoking Status: Former smoker Tobacco Type: Cigarettes Age Started Using Tobacco: 26; Age Quit Using Tobacco: 55; packs per day: 1; Cigarettes Per Day: 20; Second Hand Exposure: No; Hx Alcohol Use: No Hx Substance Use: No Preferred Language: Croatian Communication Ability: Effective Visual Impairment: No Limitations Hearing Ability: Hard of Hearing Candy Roller Required: No Beliefs That Will Affect Care: None marital status: / Current Living Situation: Alone Current Living Situation Comment: Lives in [address], 2 bedrooms. current occupational status: retired current occupation: worked at [employer] Other Information That Helps Us Care for You: No Feels Safe at Home: Yes Safety Concerns: Feels Safe At This Time Childhood Exposure to Second-Hand Smoke: No Diet Comment: Low sugar/ Sugar free options when possible caffeine: Yes (2 cups of coffee daily ) Dental Care, Regularly: No Physical Activity Frequency: Daily Seatbelt Use: always Sunscreen Use: Yes Assistive Devices: Walker Results & Data Vital Signs (Past 12 Hours) Vital Signs Temp Pulse Pulse Resp BP BP Pulse Ox 08/06/22 21:55 36.6 C 60 18 L 18 124/68 94 08/07/22 02:58 36.9 C 60 18 123/41 L 92 08/07/22 00:03 08/06/22 22:48 36.5 C 59 L 18 116/45 L 94 08/06/22 19:41 36.3 C L 65 18 136/87 93 O2 Del Method O2 Flow Rate 08/06/22 21:55 Nasal Cannula 2 08/07/22 02:58 Nasal Cannula 2 08/07/22 00:03 Room Air 08/06/22 22:48 Nasal Cannula 2 08/06/22 19:41 Nasal Cannula 2.5 PG Care Time/CCT Total # of Minutes Spent Total Time Spent with Patient: Total time spent is greater than 50% in coordination of care (as documented) at patient's floor/unit and/or counseling patient: Coding Level of Care Code 37446 INT INP/OBS CARE 2/55MIN Diagnoses Multiple facial bone fractures S02.92XA Encounter type: initial encounter 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
[2022-08-07 07:50] LABS: Partial Thromboplastin Ratio 1.7
[2022-08-07 07:53] LABS: Partial Thromboplastin Time 46.4 Seconds (21.0-31.0)
--- NOTE | 2022-08-07 08:20 | Hospitalist Progress Note ---
Date of Service August 07, 2022 Assessment & Plan (1) Multiple facial bone fractures: Plan: 82 F with PMH CAD (), permanent A-fib, multiple prior DVTs (on Xarelto), diastolic CHF, tachycardia-bradycardia syndrome (s/p VVI pacer in 2017) DM2, COPD with asthma, hyperlipidemia, hypertension, who presents today after a fall and is being admitted to the hospital for further management following multiple facial bone fractures. Facial bone fractures -Face CT: Bilateral nasal bone fractures + mild comminution, displacement; nondisplaced fractures within anterior, posterior maxillary sinus cano; mildly angulated fracture of lateral left pterygoid plate; angulated fracture of bony nasal septum. -Head CT negative for intracranial abnormality; facial contusions with right forehead hematoma. * Admit to MedSurg * IV Tylenol 1000 mg every 8 hours scheduled * IV Dilaudid as needed for breakthrough pain * IV doxycycline for infection prophylaxis. --- OMFS recommending conservative management and close outpatient followup. Cleared to restart Rivaroxaban and d/c heparin. --- Continue pain management (not candidate for NSAIDS) and ppx antibiotics (1 week of Doxycycline) --- PT recommending inpatient rehab prior to discharge home, CM consulted Syncope -Unclear etiology. Differential diagnosis includes orthostatic hypotension, V. tach, heart block, vasovagal. -Patient last remembers walking toward the trunk of her car before waking up on the pavement. -Denies prodromal palpitations, vision changes, dyspnea, or lightheadedness. -No intracranial abnormality on CT head. -Patient has Medtronic VVI pacer installed (May 2016) for tachybradycardia syndrome; VT >4 beats occurring 50 times since September 21, 2021, longest episode <1 second, per report. -History of diastolic CHF managed by Dr. Marcos. Patient declared stable at last visit in March 2022. * Echocardiogram pending in a.m. * Consider cardiology consult for further work-up if echo results noncon tributory * Neuro checks every 4 hours * Continuing antihypertensive meds as patient was and remains hypertensive. - Echocardiogram indicating L atrial dilation (severe), R atrial dilation (moderately), aortic stenosis (moderate), mitral regurgitation (mod-severe), tricuspid regurg (moderate), and elevated RVSP (50-60 mmHg) - Carotid Duplex showing moderate atherosclerotic plaque plaque without son ographic evidence for a hemodynamically significant stenosis. --- Continue telemetry and neuro-checks --- Cardiology noting lack of evidence for cardiovascular origin of fall, low suspicion for contribution from arrhythmia or valvular pathology, consideration given to hypoxia inciting patient's fall, given that she was not wearing O2 at the time of fall Atrial fibrillation/history of DVTs -On Xarelto due to extensive history of DVTs, atrial fibrillation. -[id number] score of 9. * Xarelto held on admission. * Initiate low-dose IV heparin without bolus in the a.m --- Anticoagulation plan above DM2 -Patient takes Sitagliptin at home * SSI insulin, per protocol * A.m. hemoglobin A1c Hypertension * Continue antihypertensives (amlodipine, losartan, Imdur) * Trend vitals Hyperlipidemia * Continue simvastatin COPD with asthma, emphysema * Continue Trelegy, as needed albuterol inhaler. Code: Full code (has advanced directive) Dispo: Med-Surg telemetry FEN/GI: NPO. 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 I agree with the impression and plan in the resident documentation, and as summarized below. The patient still has some pain, as expected, but seems to be better. No complaints of visual changes today. EXAM 159/64, 63, 18, 36.4, 92% on room air She is pleasant. No acute distress. She is oriented and conversational. Significant ecchymosis of the face, malformation of the nasal bridge. Edema across the forehead is slightly improved. Dried blood appreciated in the nares. Her voice still has a "nasally" quality. Heart Regular, 2/6 systolic murmur heard best at the upper sternal border. Respirations nonlabored; lungs clear The right hand is bandaged DATA Labs Hemoglobin 9.7 (previously 10.3) Sodium 138, potassium 4.2, BUN 32, creatinine 1.39 A1c 6% Imaging Carotid artery ultrasound completed 08/06/2022 shows no evidence for hemodynamically significant stenosis Micro Urine culture collected 08/06/2022 demonstrates growth of gram-negative bacilli, Gardnerella like bacilli. Speciation pending IMPRESSION & PLAN Syncopal episode with fall, multiple facial bone fractures History of atrial fibrillation and VTE, on chronic anticoagulation Appreciate surgical and cardiology consultation Can transition back to Xarelto today PT/OT consultation Additional per resident documentation Subjective Cammy is an 82F with history of HLD, DM, single kidney (s/p nephrectomy for cancer), anticoagulation (A Fib), tachy-joe syndrome, secondary hyperparathyroidism, renal artery stenosis, RLS, pulmonary emphysema, CHF, COPD, CKD3, HTN, and peptic ulcer disease who presented due to a fall at home and was admitted for management and evaluation of possible syncope. Patient is feeling well this morning, she notes that her face remains painful, but that the pain medication is helping control her pain. She is still unable to breathe from her nose, and thus is using her supplemental oxygen at her mouth. Her blurred vision in the right eye has resolved and she is not having pain with eye movement. Patient denies dyspnea, primarily a/w not being able to breathe through her nose. She denies any chest pain, abdominal pain, dysuria, urinary frequency, lightheadedness or bowel changes. Review of Systems Review of Systems: As per HPI Physical Exam Physical Exam: General: No acute distress, patient conversive and in good spirits HEENT: Large forehead hematoma above right eye. Bilateral infraorbital hematoma and bruising. Notable ecchymosis surrounding bilateral eyes. Abrasion present on right side of nose. Appropriate hemostasis of abrasions. EOMI/TURNER, no pain with eye movement. Clotted blood remains in nares. Evidence of palatal and superior lip abrasions with good hemostasis. Respiratory: Normal respiratory effort, CTABL. No chest wall bruising. Cardiovascular: RRR. Systolic ejection murmur heard loudest at RUSB/LUSB. No gallops, or rubs. No pedal edema. GI: Soft abdomen without bruising, and with normal bowel sounds on auscultation. Nontender x4 quadrants Neuro: Alert and oriented x3. Results & Data Results & Data Vital Signs (Past 12 Hours) Vital Signs Temp Pulse Pulse Resp BP Pulse Ox O2 Del Method 08/07/22 07:41 36.5 C 60 18 131/50 L 95 Room Air 08/06/22 21:55 36.6 C 60 18 L 18 124/68 94 Nasal Cannula 08/07/22 02:58 36.9 C 60 18 123/41 L 92 Nasal Cannula 08/07/22 00:03 Room Air 08/06/22 22:48 36.5 C 59 L 18 116/45 L 94 Nasal Cannula O2 Flow Rate 08/07/22 07:41 2 08/06/22 21:55 2 08/07/22 02:58 2 08/07/22 00:03 08/06/22 22:48 2 Resident Activity Tracking Resident Involvement: Resident Care Provided Care Provided: Adult Hospital Medicine (1) Multiple facial bone fractures Encounter type: initial encounter
[2022-08-07] MEDS: INSULIN ASPART PER UNIT CHARGE SC SCH ×4 (08:28→20:19)
[2022-08-07] MEDS: ISOSORBIDE MONO EXTENDED REL 30 MG TABCR PO SCH (08:43)
[2022-08-07] MEDS: LOSARTAN POTASSIUM 25 MG TAB PO SCH (08:43)
[2022-08-07] MEDS: amLODIPine BESYLATE 5 MG TAB PO SCH (08:43)
[2022-08-07] MEDS: ATENOLOL 50 MG TABLET PO SCH (08:43)
[2022-08-07] MEDS: UMECLIDINIUM/VILANTEROL 62.5/25MCG 7 PUFFS/INHALER INH SCH (08:44)
[2022-08-07] MEDS: FLUTICASONE FUROATE 100MCG 14 PUFFS/INHALER INH SCH (08:44)
--- NOTE | 2022-08-07 09:58 | Oral/Maxillofacial Progress Nt ---
Date of Service August 07, 2022 Assessment & Plan Admission and Anticipated Discharge Date Admission Date: August 05, 2022 Subjective 08-07-22 less swelling today less eye blurry vision No bleeding Still nasal congestion OK to re start the Xarelto I understand she will be transfer to a rehab facility--please make sure that a follow up appointment with me in my office is arranged sometimes next week. Results & Data Vital Signs (Past 12 Hours) Vital Signs Temp Pulse Resp BP Pulse Ox O2 Del Method O2 Flow Rate 08/07/22 07:41 36.5 C 60 18 131/50 L 95 Room Air 2 08/07/22 02:58 36.9 C 60 18 123/41 L 92 Nasal Cannula 2 08/07/22 00:03 Room Air 08/06/22 22:48 36.5 C 59 L 18 116/45 L 94 Nasal Cannula 2 PG Care Time/CCT Total # of Minutes Spent Total Time Spent with Patient: Total time spent is greater than 50% in coordination of care (as documented) at patient's floor/unit and/or counseling patient: Coding Level of Care Code None Diagnoses
--- NOTE | 2022-08-07 13:43 | Cardiology Consultation ---
Date of Consultation August 07, 2022 Assessment & Plan (1) Fall: (2) Tachycardia-bradycardia syndrome: (3) Atrial fibrillation: (4) Pacemaker: (5) Valvular heart disease: Plan 1. Fall: Clearly she had a fall. Whether this was precipitated by syncope is unknown. No significant prodrome. This is not appear to be related to an arrhythmia. She is normally functioning pacemaker which would preclude the presence of bradycardia. I think if she had syncope the possible etiology would been hypoxia. She does use supplemental oxygen on occasion. She states when she is doing moderate activity she uses her concentrator. However, she simply took her concentrator out of the car was walking at the time. Her degree of aortic stenosis is not severe enough to cause symptoms. No evidence the coronary disease played a role in her event. 2. Tachy-joe syndrome: Well controlled currently on atenolol and use of her pacemaker. No high ventricular rates noted on her interrogation. 3. Normally functioning single-chamber pacemaker 4. Nonobstructive coronary disease: No symptoms suggestive of coronary insufficiency or angina. Continue aggressive secondary prevention. 5. Valvular heart disease: She has an element of aortic stenosis, mitral and tricuspid regurgitation. While her mitral regurgitation is significant, overall LV function is normal. Her degree of aortic stenosis should not cause symptoms. These and followed over time. History of Present Illness Reason for Consultation: Fall, possible syncope Requesting Physician: Isabel Attending Physician: Huan Cabrera DO History of Present Illness The patient is an 82-year-old woman with a history of aortic stenosis, permanent atrial fibrillation, nonobstructive coronary disease and prior implantation of single-chamber permanent pacemaker who presented to the hospital after suffering a fall. Patient recalls getting out of her car yesterday afternoon and getting her oxygen concentrator out of her trunk. She apparently was walking on level ground on a paper surface to her residence when she suddenly found herself on the ground. This did result in a significant injury to her face in arm. She did not report feeling dizzy or lightheaded leading up to the event. She did not report any sense of palpitation. She cannot say with certainty whether she lost consciousness or tripped. Afterwards she called 911 on her cell phone and was transported to the hospital for evaluation. In general she is able perform mild activity with minimal limitation. She states with more strenuous activity she does get short of breath and wears supplemental oxygen. She has not been feeling poorly earlier in the day. She did not describe other episodes of dizziness or lightheadedness. She did not describe any exertional chest pain or chest pain at rest. Occasionally she is aware of some palpitation but generally is fleeting in nature and rare. Allergies Allergy/AdvReac Type Severity Reaction Status Date / Time chlorthalidone Allergy Severe Swelling Verified 08/05/22 20:54 of Lip/Tongue/Throat Penicillins Allergy Severe Swelling Verified 08/05/22 20:54 of Lip/Tongue/Throat MANDEEP Inhibitors Allergy Unknown Unknown Verified 08/05/22 20:54 trazodone Allergy Unknown Unknown Verified 08/05/22 20:54 Home Medications Medication Instructions Recorded Confirmed Type calcium citrate 250 mg 1 tab PO QAM 11/07/18 08/05/22 History calcium-vitamin D3 5 mcg (200 unit) tablet cranberry concentrate-ascorbic 1 cap PO DAILY 11/07/18 08/05/22 History acid 4,200 mg-20 mg capsule multivitamin 1 tab PO QAM 11/07/18 08/05/22 History amlodipine 10 mg tablet 10 mg PO DAILY #90 tabs 09/12/21 08/05/22 Rx cholecalciferol (vitamin D3) 50 50 mcg PO BID #30 caps 09/12/21 08/05/22 Rx mcg (2,000 unit) capsule nitroglycerin 0.4 mg sublingual 0.4 mg sublingual UD PRN chest 09/12/21 08/05/22 Rx tablet pain #20 tabs sitagliptin phosphate 25 mg tablet 25 mg PO QAM #90 tabs 09/12/21 08/05/22 Rx (Januvia) atenolol 50 mg tablet 50 mg PO QAM #90 tabs 01/10/22 08/05/22 Rx losartan 25 mg tablet 25 mg PO QAM #90 tabs 01/10/22 08/05/22 Rx rivaroxaban 15 mg tablet (Xarelto) 15 mg PO .COMPLEX #90 tabs 01/10/22 08/05/22 Rx simvastatin 20 mg tablet 20 mg PO HS #90 tabs 01/10/22 08/05/22 Rx albuterol sulfate 90 mcg/actuation 2 puff inhalation Q4H PRN 02/21/22 08/05/22 Rx aerosol inhaler (Ventolin HFA) shortness of breath or wheezing #18 grams fluticasone fur. 100 mcg-umeclid 1 inh inhalation DAILY #3 Inhalers 02/21/22 08/05/22 Rx 62.5 mcg-vilant 25 mcg inhalat.powder (Trelegy Ellipta) zolpidem 5 mg tablet 5 mg PO QPM #30 tabs 05/29/22 08/05/22 Rx furosemide 20 mg tablet 20 mg PO QAM 90 days #90 tabs 07/02/22 08/05/22 Rx isosorbide mononitrate 30 mg 90 mg PO QAM #270 tabs 08/01/22 08/05/22 Rx tablet,extended release 24 hr Patient History Medical History Acute anterior epistaxis Acute lower gastrointestinal bleeding Acute posterior epistaxis Anemia Anticoagulant long-term use Atrial fibrillation permanent, now s/p PPM (2016) Bradycardia CAD (coronary artery disease) [place] (1992) CHF (congestive heart failure) follows with [facility] (Dr. Marcos) Chronic diastolic CHF (congestive heart failure) Chronic kidney disease, stage 3 follows with nephrology ([facility] [place] [place]/Dr. Richard) Chronic respiratory failure with hypoxia COPD (chronic obstructive pulmonary disease) 2L HS + occasionally PRN, follows with [facility] COPD with asthma COPD with emphysema Deep vein thrombosis B/L LE (1967), Diabetes mellitus, type 2 NIDDM Dysfunction of left eustachian tube Encounter for pre-operative examination Encounter for pre-operative examination GI bleed Hearing deficit History of kidney cancer s/p L nephrectomy (1997) Hyperlipidemia controlled Hypertension controlled Insomnia Insomnia Intractable back pain Leg swelling Mixed conductive and sensorineural hearing loss of left ear with restricted hearing of right ear Osteoarthritis Osteoporosis Pacemaker Implanted 2016, Slinkytronic, last check 09/2019 Pulmonary nodule per records Restless leg syndrome Syncope UTI (urinary tract infection) Vitamin D deficiency Surgical History History of cardiac cath 10+ years ago, no stents History of cholecystectomy History of colonoscopy History of hip surgery R/L NABEEL History of myringotomy + Left ear tube removal: 06/09/19: LMA#4 atraumatic at [facility] History of nephrectomy left History of vaginal hysterectomy Hx of bilateral cataract extraction Status post placement of cardiac pacemaker 2016 Family History Brother Hypertension Mother Cardiac disorder Sister Lung cancer Aunt Lung cancer Father Pneumonia Unknown Family history of allergies Environmental allergies Denies family history of Ovarian cancer Prostate cancer Myocardial infarction Breast cancer Colorectal cancer Social History Smoking Status: Former smoker Tobacco Type: Cigarettes Age Started Using Tobacco: 26; Age Quit Using Tobacco: 55; packs per day: 1; Cigarettes Per Day: 20; Second Hand Exposure: No; Hx Alcohol Use: No Hx Substance Use: No Preferred Language: Italian Communication Ability: Effective Visual Impairment: No Limitations Hearing Ability: Hard of Hearing Culture Media Laboratory Assistant Required: No Beliefs That Will Affect Care: None marital status: / Current Living Situation: Alone [facility] Sit[facility] Comment[facility]. current occupational status: retired current occupation: worked at [employer] Other Information That Helps Us Care for You: No Feels Safe at Home: Yes Safety Concerns: Feels Safe At This Time Childhood Exposure to Second-Hand Smoke: No Diet Comment: Low sugar/ Sugar free options when possible caffeine: Yes (2 cups of coffee daily ) Dental Care, Regularly: No Physical Activity Frequency: Daily Seatbelt Use: always Sunscreen Use: Yes Assistive Devices: Walker Review of Systems Review of Systems: Per HPI. Physical Exam Physical Exam: She is alert and oriented x3. Mood affect appear normal. She answered all questions appropriately. HEENT: Sclerae are anicteric. Pupils are equal and reactive to light and accommodation. Extraocular movements were intact. Neuro: Cranial nerves intact Lungs: Lungs are clear to auscultation bilaterally. There are no rales wheezes or rhonchi. She has normal respiratory effort without use of accessory muscles. There is normal pulmonary excursion. Cardiac: The rhythm was irregular. S1 and S2 were normal. Crescendo systolic murmur. The PMI was not markedly displaced on palpation. Extremities: Patient has bilateral radial pulses that are equal in intensity. There is no evidence cyanosis or clubbing. There was no evidence of significant peripheral edema bilaterally. Skin: There are no rashes noted on examination today. Significant ecchymosis to the face and right arm. Some swelling over the right eye Results & Data Vital Signs (Past 12 Hours) Vital Signs Temp Pulse Pulse Resp BP BP Pulse Ox 08/07/22 08:30 08/07/22 11:52 36.4 C L 63 18 159/64 H 92 08/07/22 08:00 60 08/07/22 07:41 36.5 C 60 18 131/50 L 95 08/07/22 02:58 36.9 C 60 18 123/41 L 92 O2 Del Method O2 Flow Rate 08/07/22 08:30 Nasal Cannula 2 08/07/22 11:52 Room Air 08/07/22 08:00 08/07/22 07:41 Room Air 2 08/07/22 02:58 Nasal Cannula 2 Laboratory Results Abnormal Lab Results 08/06/22 08/06/22 08/06/22 15:44 17:09 20:35 WBC RBC Hgb Hct MCV MCH MCHC RDW Std Deviation RDW Coeff of Stephane Plt Count MPV APTT 41.3 H PTT Ratio 1.5 Sodium Potassium Chloride Carbon Dioxide Anion Gap BUN Creatinine Est Cr Clr Drug Dosing Est GFR ( Amer) Est GFR (Non-Af Amer) BUN/Creatinine Ratio Glucose POC Glucose 98 99 Calcium Phosphorus 08/06/22 08/07/22 08/07/22 22:51 06:34 06:34 WBC 6.97 RBC 3.13 L Hgb 9.7 L Hct 29.5 L MCV 94.2 MCH 31.0 MCHC 32.9 RDW Std Deviation 44.5 RDW Coeff of Stephane 13.0 Plt Count 143 MPV 11.0 APTT 44.5 H PTT Ratio 1.6 Sodium 138 Potassium 4.2 Chloride 108 H Carbon Dioxide 25 Anion Gap 5 BUN 32 H Creatinine 1.39 H Est Cr Clr Drug Dosing 32.7 Est GFR ( Amer) 40.2 Est GFR (Non-Af Amer) 34.7 BUN/Creatinine Ratio 23.0 H Glucose 130 H POC Glucose Calcium 8.4 L Phosphorus 3.6 08/07/22 08/07/22 08/07/22 06:34 07:51 11:41 WBC RBC Hgb Hct MCV MCH MCHC RDW Std Deviation RDW Coeff of Stephane Plt Count MPV APTT 46.4 H* PTT Ratio 1.7 Sodium Potassium Chloride Carbon Dioxide Anion Gap BUN Creatinine Est Cr Clr Drug Dosing Est GFR ( Amer) Est GFR (Non-Af Amer) BUN/Creatinine Ratio Glucose POC Glucose 142 H 116 H Calcium Phosphorus Diagnostic Findings Echocardiogram performed 08/06/2022: Normal LV systolic function. Evidence of old inferior myocardial infarction. Severely dilated left atrium moderately dilated right atrium. Moderate valvular aortic stenosis. Moderate to severe mitral regurgitation. Elevated pulmonary systolic pressures with moderate tricuspid regurgitation. I performed a device interrogation of her single-chamber pacemaker. Normal function without recorded arrhythmia. Carotid duplex performed today did not reveal significant carotid stenosis. CT scanning revealed a significant nose and maxillary fracture. Chest x-ray demonstrated cardiomegaly with pulmonary vascular congestion. Small bilateral pleural effusions. ECG Additional Comments: EKG demonstrated atrial fibrillation with a paced ventricular rhythm PG Care Time/CCT Total # of Minutes Spent Total Time Spent with Patient: Total time spent is greater than 50% in coordination of care (as documented) at patient's floor/unit and/or counseling patient: Coding Level of Care Code 19352 INT INP/OBS CARE 3/75MIN Diagnoses Fall W19.XXXA Tachycardia-bradycardia syndrome I49.5 Atrial fibrillation I48.91 Pacemaker Z95.0 Valvular heart disease I38
[2022-08-07] MEDS ORDERED: RIVAROXABAN 15 MG TAB PO SCH (18:00)
[2022-08-07] MEDS: POLYETHYLENE (MIRALAX) 17 GM PACK PO PRN (21:25)
[2022-08-07] MEDS: ZOLPIDEM TARTRATE 5 MG TAB PO SCH (21:25)
[2022-08-07] MEDS: SIMVASTATIN 20 MG TAB PO SCH (21:25)
[2022-08-08] MEDS ORDERED: SILVER NITR/POTASSIUM NITRATE APPLICATOR EXT PRN (00:43)
[2022-08-08] MEDS ORDERED: OXYMETAZOLINE 0.05% 30 ML BTL ONE (01:53)
[2022-08-08] MEDS: DOXYCYCLINE HYCLATE 100 MG in DEXTROSE 5% 100 ML IV SCH ×2 (03:01→14:06)
[2022-08-08] MEDS: SODIUM CHLORIDE 0.9% 1000ML 1,000 ML IV SCH ×2 (03:05→14:49)
[2022-08-08 03:53] LABS: Basophils # (auto) 0.05 K/uL (0-0.2); Basophils % (auto) 0.5 %; Eosinophils # (auto) 0.15 K/uL (0-0.50); Eosinophils % (auto) 1.5 %; Hematocrit (blood only) 27.5 % (37.0-47.0); Immature Granulocytes # (auto) 0.09 K/uL (0.01-0.20); Immature Granulocytes % (auto) 0.9 %; Lymphocytes # (auto) 1.13 K/uL (1.2-3.4); Lymphocytes % (auto) 11.6 %; Mean Corpuscular Hemoglobin 30.8 pg (25.0-34.0); Mean Corpuscular Hgb Conc 32.7 g/dL (32.0-36.0); Mean Corpuscular Volume 94.2 fL (80.0-100.0); Mean Platelet Volume 10.1 fL (9.4-12.4); Monocytes # (auto) 0.59 K/uL (0.11-0.59); Monocytes % (auto) 6.1 %; Neutrophils # (auto) 7.69 K/uL (1.40-6.50); Neutrophils % (auto) 79.4 %; Platelet Count 153 K/uL (130-400); RDW Coefficient of Variation 12.8 % (11.5-14.5); RDW Standard Deviation 44.1 fL (36.4-46.3); Red Blood Count 2.92 M/uL (4.20-5.40)
[2022-08-08 04:02] LABS: INR 1.5 (0.9-1.1); Prothrombin Time 16.1 Seconds (9.0-12.0)
[2022-08-08 04:08] LABS: Calcium 8.2 mg/dl (8.6-10.3); Potassium 4.3 mmol/L (3.5-5.1)
[2022-08-08 04:14] LABS: BUN Creatinine Ratio 25.4 (10-20); Creatinine Clr Calc Pharmacy 36.1 ml/min; Est GFR (African American) 45.3 ml/min; Est GFR (Non-African American) 39.1 ml/min; Phosphorus 2.8 mg/dl (2.5-4.9)
[2022-08-08] MEDS: ACETAMINOPHEN 1,000 MG/100 ML VIAL IV SCH ×3 (05:24→22:36)
--- NOTE | 2022-08-08 06:49 | Communication Note ---
Date of Service: August 08, 2022 Patient developed epistaxis overnight. Predominantly noted to be coming from the left nare with fresh blood noted in the posterior pharynx as well. Patient protecting her airway but swallowing and coughing fresh blood with clots External compression applied by nursing staff for approximately 30 minutes without hemostasis Nasal tampon placed in left nare - limited posterior placement secondary to her known nasal fractures. Did achieve hemostasis for a short time. Patient then sneezed and the packing came out. She received Afrin nasal spray bilateral nares with temporary hemostasis achieved. Around 06:00 patient began having more oozing and bleeding with posterior drainage. 2x2 gauze soaked in Afrin and placed in the left nare Case briefly discussed with OMFS. Will see if hemostasis is achieved with current measures. If patient continues to bleed should contact OMFS for additional packing Patient did receive her dose of Rivaroxaban 15mg on 08/07/22 at 19:50. Could consider administration of PCC for partial reversal. Blood consent obtained overnight and is on the chart.
--- NOTE | 2022-08-08 07:21 | XRay Report ---
SINGLE VIEW CHEST CLINICAL HISTORY: Hypoxia. FINDINGS: An AP, portable, upright chest radiograph is compared to study dated 08/05/2022 and correlat e with chest CT dated 09/08/2017. A single lead cardiac pacemaker is unchanged in position. The heart is enlarged noting atherosclerotic calcification of the thoracic aorta. There is pulmonary vascular c ongestion. Emphysema and chronic interstitial thickening is similar to previous. There are small pleu ral effusions with dependent consolidation. No pneumothorax is seen. The skeletal structures are oste openic. Arthritic change is noted in the shoulders and spine. There are chronic/healed right-sided ri b fractures. IMPRESSION: 1. Cardiomegaly and cardiac pacemaker with evidence of mild congestive failure. 2. Emphysema. 3. Layering pleural effusions with dependent consolidation. ACT 112: Negative or not required by law. Electronically signed by: Dariusz Jensen M.D. 08/08/2022 7:20 AM
[2022-08-08 07:50] LABS: Hematocrit (blood only) 25.3 % (37.0-47.0); Hemoglobin 8.3 g/dl (12.0-16.0)
--- NOTE | 2022-08-08 08:06 | Hospitalist Progress Note ---
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 Facial bone fractures -Face CT: Bilateral nasal bone fractures + mild comminution, displacement; nondisplaced fractures within anterior, posterior maxillary sinus cano; mildly angulated fracture of lateral left pterygoid plate; angulated fracture of bony nasal septum. -Head CT negative for intracranial abnormality; facial contusions with right forehead hematoma. * Admit to MedSurg * IV Tylenol 1000 mg every 8 hours scheduled * IV Dilaudid as needed for breakthrough pain * IV doxycycline for infection prophylaxis. - OMFS recommending conservative management and close outpatient followup. - Continue pain management (not candidate for NSAIDS) and ppx antibiotics (1 week of Doxycycline) - PT recommending inpatient rehab prior to discharge home, CM consulted --- Patient experienced acute episode of nasopharyngeal bleeding AM of 08/08, attempts were made to stop bleeding with nasal packing (Rhino Rocket) which was subsequently sneezed out, OMFS was consulted and recommended light packing with 2x2 gauze, nasal saline rinses and Afrin, cautioned that additional packing will excacerbate damage to patient's facial/nasal fractures and mucosa leading to more bleeding. --- Discontinued anticoagulation, will monitor for 24-48 hours and re-assess stability to re-start anticoagulation --- H&H checked 0800, Hgb 9.0 @ 4 AM to 8.3 @ 9 AM, patient symptomatic, recheck @ 2 PM (transfuse for < 6 asymptomatic or < 8 symptomatic) Syncope -Unclear etiology. Differential diagnosis includes orthostatic hypotension, V. tach, heart block, vasovagal. -Patient last remembers walking toward the trunk of her car before waking up on the pavement. -Denies prodromal palpitations, vision changes, dyspnea, or lightheadedness. -No intracranial abnormality on CT head. -Patient has Medtronic VVI pacer installed (May 2016) for tachybradycardia syndrome; VT >4 beats occurring 50 times since September 21, 2021, longest episode <1 second, per report. -History of diastolic CHF managed by Dr. Marcos. Patient declared stable at last visit in March 2022. * Echocardiogram pending in a.m. * Consider cardiology consult for further work-up if echo results noncontributory * Neuro checks every 4 hours * Continuing antihypertensive meds as patient was and remains hypertensive. - Echocardiogram indicating L atrial dilation (severe), R atrial dilation (moderately), aortic stenosis (moderate), mitral regurgitation (mod-severe), tricuspid regurg (moderate), and elevated RVSP (50-60 mmHg) - Carotid Duplex showing moderate atherosclerotic plaque plaque without sonographic evidence for a hemodynamically significant stenosis. --- Continue telemetry and neuro-checks --- Cardiology noting lack of evidence for cardiovascular origin of fall, low suspicion for contribution from arrhythmia or valvular pathology, consideration given to hypoxia inciting patient's fall, given that she was not wearing O2 at the time of fall Atrial fibrillation/history of DVTs -On Xarelto due to extensive history of DVTs, atrial fibrillation. -[id number] score of 9. * Xarelto held on admission. * Initiate low-dose IV heparin without bolus in the a.m --- Anticoagulation plan above DM2 -Patient takes Sitagliptin at home * SSI insulin, per protocol * A.m. hemoglobin A1c Hypertension - Continue antihypertensives (amlodipine, losartan, Imdur) - Trend vitals Hyperlipidemia - Continue simvastatin COPD with asthma, emphysema - Continue Trelegy, as needed albuterol inhaler. - Patient on 2L NC at home, primarily used at night --- Ongoing dyspnea inpatient, 2/2 clotting/congestion of nasal passageways, supplemental O2 PRN + Urinalysis/Culture w/ Riddle-sensitive EColi - Patient remains asymptomatic, it is not recommended to treat asymptomatic bacteruria - If patient develops symptoms, will adjust PRN Code: Full code (has advanced directive) Dispo: Med-Surg telemetry FEN/GI: NPO. IV NS@maintenance rate DVT Prophylaxis: Heparin d/c, restart Rivaroxaban PT/OT: Yes Consults: Oral maxillofacial surgery, Case Mgmt (2) Syncope: (3) Fall: (4) Tachycardia-bradycardia syndrome: (5) longterm (current) use of anticoagulants: (6) Type 2 diabetes mellitus: (7) Congestive heart failure: (8) COPD with asthma: Admission and Anticipated Discharge Date Admission Date: August 05, 2022 Supervising Physician Co-Signing Physician Notes ATTESTATION I also saw the patient and confirmed gamez portions of the history and exam. I agree with the impression and plan in the resident documentation, and as summarized below. Unfortunately, the patient had some bleeding overnight that was eventually stopped with combination of direct pressure and packing. Patient expelled some significant clot material this morning. Despite all this, her spirits are still relatively high this morning all things considered. EXAM 144/73, 60, 19, 36.3, 99% on oxy mask (on oxy mask simply because nasal cannula ineffective given her nasal congestion) She is pleasant. No acute distress. She is oriented and conversational. She has some bloodsoaked packing in her left nare Significant ecchymosis of the face, malformation of the nasal bridge. Edema across the forehead is slightly improved. Heart Regular, 2/6 systolic murmur heard best at the upper sternal border. Respirations nonlabored; lungs clear The right hand is bandaged DATA Labs Hemoglobin 8.3 (previously 9.7) Sodium 136, potassium 4.3, BUN 32, creatinine 1.26 Imaging Chest x-ray from overnight shows mild congestive failure, emphysema, layering pleural effusion with dependent consolidation. Micro Urine culture collected 08/06/2022 demonstrates greater 100,000 colonies E. coli, riddle sensitivity IMPRESSION & PLAN Syncopal episode with fall, multiple facial bone fractures History of atrial fibrillation and VTE, on chronic anticoagulation Acute blood loss anemia We will hold all anticoagulation for time being Discussed PCC for reversal, but now that things have stabilized, will hold off Recheck hemoglobin this afternoon; note that blood is on hold Adjust antibiotics in effort to cover both E. coli and urine as well as prophylaxis with regards to facial trauma Given uncertain cause of her syncopal episode, and physiologic stress, would recommend treating Additional per resident documentation Zuly Chawla is an 82F with history of HLD, DM, single kidney (s/p nephrectomy for cancer), anticoagulation (A Fib), tachy-joe syndrome, secondary hyperparathyroidism, renal artery stenosis, RLS, pulmonary emphysema, CHF, COPD, CKD3, HTN, and peptic ulcer disease who presented due to a fall at home and was admitted for management and evaluation of possible syncope. 08/07: Patient is feeling well this morning, she notes that her face remains painful, but that the pain medication is helping control her pain. She is still unable to breathe from her nose, and thus is using her supplemental oxygen at her mouth. Her blurred vision in the right eye has resolved and she is not having pain with eye movement. Patient denies dyspnea, primarily a/w not being able to breathe through her nose. She denies any chest pain, abdominal pain, dysuria, urinary frequency, lightheadedness or bowel changes. 08/08: Patient notes acute discomfort this morning as she is having bloody drainage and clots passing from her nose to her throat. Upon arrival she was sitting upright in bed with suction in hand, noting that suctioning out the blood kept her from choking on it. She notes dyspnea d/t inability to wear her supplemental oxygen during bleeding episode. Nursing and night resident noted active nasopharyngeal bleeding that began overnight, attempts were made to pack the area and ultimately OMFS was consulted. Curing Press Operator packing and [place] was used with brief hemostasis, but upon arrival this AM patient continued to experience discomfort due to nasopharyngeal bleeding and clot passage, patient passed a large/long clot directly after arrival to her room. She noted that this was the second clot of such nature. Nursing noted that this had been continuing off and on all waiter/waitress second class. Review of Systems Review of Systems: As per HPI Physical Exam Physical Exam: General: No acute distress, patient conversive and in good spirits HEENT: Large forehead hematoma above right eye. Bilateral infraorbital hematoma and bruising. Notable ecchymosis surrounding bilateral eyes. Abrasion present on right side of nose. Appropriate hemostasis of abrasions. EOMI/TURNER, no pain with eye movement. Clotted blood remains in nares. Evidence of palatal and superior lip abrasions with good hemostasis. - 0700 - active nasopharyngeal bleeding, successful removal from oropharynx via light suction, passage of large-long (7-8 cm) clot x 2 - 0800 - patient resting comfortably, no active nasopharyngeal bleeding Respiratory: Normal respiratory effort, coarse upper airway sounds, CTA @ bases Cardiovascular: RRR. Systolic ejection murmur heard loudest at RUSB/LUSB. No gallops, or rubs. No pedal edema. GI: Soft abdomen without bruising, and with normal bowel sounds on auscultation. Nontender x4 quadrants Neuro: Alert and oriented x3. Results & Data Results & Data Vital Signs (Past 12 Hours) Vital Signs Temp Pulse Pulse Resp BP Pulse Ox O2 Del Method 08/08/22 02:56 36.4 C L 60 22 148/61 H 90 Oxymask 08/07/22 23:20 60 08/07/22 23:20 Nasal Cannula 08/07/22 21:57 36.4 C L 62 18 148/66 H 94 Nasal Cannula O2 Flow Rate 08/08/22 02:56 10 08/07/22 23:20 08/07/22 23:20 2 08/07/22 21:57 3 Resident Activity Tracking Resident Involvement: Resident Care Provided Care Provided: Adult Hospital Medicine (1) Multiple facial bone fractures Encounter type: initial encounter
[2022-08-08] MEDS: INSULIN ASPART PER UNIT CHARGE SC SCH ×4 (08:54→22:30)
[2022-08-08] MEDS: ISOSORBIDE MONO EXTENDED REL 30 MG TABCR PO SCH (08:59)
[2022-08-08] MEDS: amLODIPine BESYLATE 5 MG TAB PO SCH (08:59)
[2022-08-08] MEDS: POLYETHYLENE (MIRALAX) 17 GM PACK PO PRN (08:59)
[2022-08-08] MEDS: ATENOLOL 50 MG TABLET PO SCH (08:59)
[2022-08-08] MEDS: LOSARTAN POTASSIUM 25 MG TAB PO SCH (08:59)
[2022-08-08] MEDS: UMECLIDINIUM/VILANTEROL 62.5/25MCG 7 PUFFS/INHALER INH SCH (09:00)
[2022-08-08] MEDS: FLUTICASONE FUROATE 100MCG 14 PUFFS/INHALER INH SCH (09:00)
[2022-08-08 14:25] LABS: Hematocrit (blood only) 22.4 % (37.0-47.0); Hemoglobin 7.3 g/dl (12.0-16.0)
[2022-08-08] MEDS ORDERED: SODIUM CHLORIDE 0.9% 250 ML IV PRN (14:43)
[2022-08-08] MEDS: ZOLPIDEM TARTRATE 5 MG TAB PO SCH (20:55)
[2022-08-08] MEDS: CEFDINIR 300 MG CAP PO SCH (20:55)
[2022-08-08] MEDS: SIMVASTATIN 20 MG TAB PO SCH (20:55)
[2022-08-08] MEDS ORDERED: FUROSEMIDE INJ 20 MG/2 ML VIAL IV ONE (22:13)
[2022-08-09 04:05] LABS: Hematocrit (blood only) 27.4 % (37.0-47.0); Hemoglobin 9.3 g/dl (12.0-16.0); Mean Corpuscular Hemoglobin 30.7 pg (25.0-34.0); Mean Corpuscular Hgb Conc 33.9 g/dL (32.0-36.0); Mean Corpuscular Volume 90.4 fL (80.0-100.0); Mean Platelet Volume 10.2 fL (9.4-12.4); Platelet Count 132 K/uL (130-400); RDW Coefficient of Variation 13.6 % (11.5-14.5); RDW Standard Deviation 43.8 fL (36.4-46.3); Red Blood Count 3.03 M/uL (4.20-5.40); White Blood Count 9.31 K/ul (4.8-10.8)
[2022-08-09 04:41] LABS: BUN Creatinine Ratio 47.9 (10-20); Calcium 8.5 mg/dl (8.6-10.3); Creatinine Clr Calc Pharmacy 38.4 ml/min; Est GFR (African American) 47.6 ml/min; Est GFR (Non-African American) 41.1 ml/min; Phosphorus 2.7 mg/dl (2.5-4.9); Potassium 4.1 mmol/L (3.5-5.1)
[2022-08-09 04:47] LABS: INR 1.2 (0.9-1.1); Prothrombin Time 12.6 Seconds (9.0-12.0)
--- NOTE | 2022-08-09 06:58 | Hospitalist Progress Note ---
Date of Service August 09, 2022 Assessment & Plan (1) Multiple facial bone fractures: Plan: 82 F with PMH CAD (), permanent A-fib, multiple prior DVTs (on Xarelto), diastolic CHF, tachycardia-bradycardia syndrome (s/p VVI pacer in 2017) DM2, COPD with asthma, hyperlipidemia, hypertension, who presents today after a fall and is being admitted to the hospital for further management following multiple facial bone fractures. Facial bone fractures -Face CT: Bilateral nasal bone fractures + mild comminution, displacement; nondisplaced fractures within anterior, posterior maxillary sinus cano; mildly angulated fracture of lateral left pterygoid plate; angulated fracture of bony nasal septum. -Head CT negative for intracranial abnormality; facial contusions with right forehead hematoma. * PO Tylenol 1000 mg every 8 hours scheduled * IV Dilaudid as needed for breakthrough pain * IV doxycycline changed to Cefdinir (will cover ppx for 1 week post injury) - OMFS recommending conservative management and close outpatient followup. - Continue pain management (not candidate for NSAIDS) - PT recommending rehab prior to discharge home, CM consulted --- Inpatient rehab denied, will proceed with SNF placement, CM following --- Acute nasopharyngeal bleeding/epistaxis resolved, good hemostasis since afternoon 08/08 --- Continue to hold anticoagulation, consider restart 08/10, Hemoglobin stable at 9.3 after 2 units PRBC 08/08 --- Patient noted increased dypenea this AM, likely 2/2 2 Units PRBC, patient appeared fluid overloaded on exam, received 20 mg IV Lasix --- Will restart patient's daily PO Lasix 08/10 Syncope - Ddx: orthostatic hypotension, V Tach, heart block, vasovagal syncope, hypoxia, TIA - Patient last remembers walking toward the trunk of her car before waking up on the pavement. - No preceding symptoms, but was not wearing oxygen during event - CT Head: Negative - Ventricular Pacer Interrogation: Negative - CHF/Aortic Stenosis: Follows w/ Dr. Marcos * Echocardiogram indicating L atrial dilation (severe), R atrial dilation (moderately), aortic stenosis (moderate), mitral regurgitation (mod-severe), tricuspid regurg (moderate), and elevated RVSP (50-60 mmHg) * Consults: Cardiology, appreciate recommendations * Neuro checks * Continuing antihypertensives - Carotid Duplex showing moderate atherosclerotic plaque plaque without s onographic evidence for a hemodynamically significant stenosis. - Cardiology noting lack of evidence for cardiovascular origin of fall, low suspicion for contribution from arrhythmia or valvular pathology, consideration given to hypoxia inciting patient's fall, given that she was not wearing O2 at the time of fall --- Most likely etiology is hypoxia, patient with chronic COPD/asthma and night time O2 requirement of 2L, suspect that patient's O2 requirement has increased and thus she now requires additional oxygen support throughout the day. Currently managed on 2L Oxymask, but without, patient desaturates to SpO2 in 80s Atrial fibrillation/history of DVTs -On Xarelto due to extensive history of DVTs, atrial fibrillation. -[id number] score of 9. * Xarelto held on admission. * Initiate low-dose IV heparin without bolus in the a.m --- Continue to hold anticoagulation, anticipate restart at 48 hours DM2 -Patient takes Sitagliptin at home * SSI insulin, per protocol * hemoglobin A1c = 6.0 Hypertension - Continue antihypertensives (amlodipine, losartan, Imdur) - Trend vitals Hyperlipidemia - Continue simvastatin COPD with asthma, emphysema - Continue Trelegy, as needed albuterol inhaler. - Patient on 2L NC at home, primarily used at night --- Hypoxia inpatient, currently requiring 2L Oxymask day and night + Urinalysis/Culture w/ Riddle-sensitive EColi - Patient remains asymptomatic - Patient's urine culture grew riddle-sensitive E. coli --- Given patient's age and recent syncopal episode will cover for E. 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 Hall. Patient seated in chair at bedside, states pain is controlled, is eating well. Patient remains on 2 L oxygen facemask, we discussed that she may have new oxygen requirement. Currently holding anticoagulation, will consider restarting tomorrow, patient has received 2 units of PRBC and hemoglobin improved. Patient will benefit from inpatient rehab. Zuly Chawla is an 82F with history of HLD, DM, single kidney (s/p nephrectomy for cancer), anticoagulation (A Fib), tachy-joe syndrome, secondary hyperparathyroidism, renal artery stenosis, RLS, pulmonary emphysema, CHF, COPD, CKD3, HTN, and peptic ulcer disease who presented due to a fall at home and was admitted for management and evaluation of possible syncope. 08/09: Patient notes significant improvement in her discomfort today, she notes her facial pain has improved and that she has not bled since yesterday afternoon. Patient does note increasing dyspnea this morning, stating that she feels increasingly short of breath and that her arms and fingers feel 'puffy'. She denies any chest pain, headaches, lightheadedness, or abdominal pain. She continues to have dark loose stools and is urinating well. Review of Systems Review of Systems: As per HPI Physical Exam Physical Exam: General: No acute distress, patient conversive and in good spirits HEENT: Diminishing forehead hematoma above right eye. Bilateral infraorbital bruising. Notable ecchymosis surrounding bilateral eyes. Abrasion present on right side of nose. Appropriate hemostasis of abrasions. EOMI/TURNER, no pain with eye movement. Clotted blood dislodged from nares. Evidence of palatal and superior lip abrasions with good hemostasis. No active bleeding observed. Respiratory: Normal respiratory effort, faint crackles in bilateral bases, resolved upper airway sounds Cardiovascular: RRR. Systolic ejection murmur heard loudest at RUSB/LUSB. No gallops, or rubs. Trace pedal and UE edema bilaterally. GI: Soft abdomen without bruising, and with normal bowel sounds on auscultation. Nontender x4 quadrants Neuro: Alert and oriented x3. Results & Data Results & Data Vital Signs (Past 12 Hours) Vital Signs Temp Pulse Resp BP Pulse Ox O2 Del Method O2 Flow Rate 08/09/22 02:51 36.5 C 63 20 149/64 H 95 2 08/09/22 00:55 36.5 C 60 20 157/66 H 98 2 08/09/22 00:55 36.5 C 60 20 157/66 H 98 2 08/09/22 01:06 60 08/08/22 21:00 Oxymask 2 08/09/22 00:25 36.5 C 60 20 149/69 H 96 2 08/09/22 00:10 36.3 C L 60 22 149/58 H 96 2 08/08/22 23:56 36.3 C L 59 L 20 146/51 H 98 2 08/08/22 20:01 36.4 C L 61 20 150/66 H 95 2 08/08/22 19:25 36.5 C 65 20 145/66 H 95 2 (1) Multiple facial bone fractures Encounter type: initial encounter
[2022-08-09] MEDS: INSULIN ASPART PER UNIT CHARGE SC SCH ×4 (08:14→20:47)
[2022-08-09] MEDS: UMECLIDINIUM/VILANTEROL 62.5/25MCG 7 PUFFS/INHALER INH SCH (08:15)
[2022-08-09] MEDS: FLUTICASONE FUROATE 100MCG 14 PUFFS/INHALER INH SCH (08:16)
[2022-08-09] MEDS: ATENOLOL 50 MG TABLET PO SCH (08:17)
[2022-08-09] MEDS: ISOSORBIDE MONO EXTENDED REL 30 MG TABCR PO SCH (08:17)
[2022-08-09] MEDS: LOSARTAN POTASSIUM 25 MG TAB PO SCH (08:17)
[2022-08-09] MEDS: CEFDINIR 300 MG CAP PO SCH ×2 (08:17→20:07)
[2022-08-09] MEDS: amLODIPine BESYLATE 5 MG TAB PO SCH (08:17)
[2022-08-09] MEDS: ACETAMINOPHEN 500 MG TAB PO PRN ×2 (10:33→20:06)
[2022-08-09] MEDS ORDERED: FUROSEMIDE INJ 20 MG/2 ML VIAL IV ONE (12:46)
[2022-08-09] MEDS: SIMVASTATIN 20 MG TAB PO SCH (20:06)
[2022-08-09] MEDS: MELATONIN 3 MG TAB PO PRN (23:20)
[2022-08-10 07:49] LABS: Basophils # (auto) 0.06 K/uL (0-0.2); Basophils % (auto) 0.7 %; Eosinophils # (auto) 0.27 K/uL (0-0.50); Eosinophils % (auto) 3.2 %; Hematocrit (blood only) 25.9 % (37.0-47.0); Hemoglobin 8.8 g/dl (12.0-16.0); Immature Granulocytes # (auto) 0.09 K/uL (0.01-0.20); Immature Granulocytes % (auto) 1.1 %; Lymphocytes # (auto) 1.73 K/uL (1.2-3.4); Lymphocytes % (auto) 20.3 %; Mean Corpuscular Hemoglobin 30.9 pg (25.0-34.0); Mean Corpuscular Volume 90.9 fL (80.0-100.0); Mean Platelet Volume 10.2 fL (9.4-12.4); Monocytes # (auto) 0.64 K/uL (0.11-0.59); Monocytes % (auto) 7.5 %; Neutrophils # (auto) 5.74 K/uL (1.40-6.50); Neutrophils % (auto) 67.2 %; Platelet Count 143 K/uL (130-400); RDW Coefficient of Variation 14.1 % (11.5-14.5); RDW Standard Deviation 45.9 fL (36.4-46.3); Red Blood Count 2.85 M/uL (4.20-5.40); White Blood Count 8.53 K/ul (4.8-10.8)
--- NOTE | 2022-08-10 07:49 | Hospitalist Progress Note ---
Date of Service August 10, 2022 Assessment & Plan (1) Multiple facial bone fractures: Plan: 82 F with PMH CAD (), permanent A-fib, multiple prior DVTs (on Xarelto), diastolic CHF, tachycardia-bradycardia syndrome (s/p VVI pacer in 2017) DM2, COPD with asthma, hyperlipidemia, hypertension, who presents today after a fall and is being admitted to the hospital for further management following multiple facial bone fractures. Facial bone fractures -Face CT: Bilateral nasal bone fractures + mild comminution, displacement; nondisplaced fractures within anterior, posterior maxillary sinus cano; mildly angulated fracture of lateral left pterygoid plate; angulated fracture of bony nasal septum. -Head CT negative for intracranial abnormality; facial contusions with right forehead hematoma. * PO Tylenol 1000 mg every 8 hours scheduled * IV Dilaudid as needed for breakthrough pain * IV doxycycline changed to Cefdinir (will cover ppx for 1 week post injury) - OMFS recommending conservative management and close outpatient followup. - Continue pain management (not candidate for NSAIDS) - PT recommending rehab prior to discharge home, CM consulted --- SNF placement pending --- Acute nasopharyngeal bleeding/epistaxis resolved, will restart anticoagulation w/ Eliquis d/t decreased bleed risk over Xarelto --- Repeat H&H in afternoon --- Dyspnea improving, continue PO Lasix Syncope - Ddx: orthostatic hypotension, V Tach, heart block, vasovagal syncope, hypoxia, TIA - Patient last remembers walking toward the trunk of her car before waking up on the pavement. - No preceding symptoms, but was not wearing oxygen during event - CT Head: Negative - Ventricular Pacer Interrogation: Negative - CHF/Aortic Stenosis: Follows w/ Dr. Marcos * Echocardiogram indicating L atrial dilation (severe), R atrial dilation (moderately), aortic stenosis (moderate), mitral regurgitation (mod-severe), tricuspid regurg (moderate), and elevated RVSP (50-60 mmHg) * Consults: Cardiology, appreciate recommendations * Neuro checks * Continuing antihypertensives - Carotid Duplex showing moderate atherosclerotic plaque plaque without sonographic evidence for a hemodynamically significant stenosis. - Cardiology noting lack of evidence for cardiovascular origin of fall, low suspicion for contribution from arrhythmia or valvular pathology, consideration given to hypoxia inciting patient's fall, given that she was not wearing O2 at the time of fall - Most likely etiology is hypoxia, patient with chronic COPD/asthma and night time O2 requirement of 2L, suspect that patient's O2 requirement has increased and thus she now requires additional oxygen support throughout the day. Currently managed on 2L Oxymask, but without, patient desaturates to SpO2 in 80s --- Continue oxygen supplementation, patient stable on 2L NC Atrial fibrillation/history of DVTs -On Xarelto due to extensive history of DVTs, atrial fibrillation. -[id number] score of 9. * Xarelto held on admission. * Initiate low-dose IV heparin without bolus in the a.m --- Anticoagulation restarted with Eliquis DM2 -Patient takes Sitagliptin at home * SSI insulin, per protocol * hemoglobin A1c = 6.0 Hypertension - Continue antihypertensives (amlodipine, losartan, Imdur) - Trend vitals Hyperlipidemia - Continue simvastatin COPD with asthma, emphysema - Continue Trelegy, as needed albuterol inhaler. - Patient on 2L NC at home, primarily used at night - Hypoxia inpatient, currently requiring 2L Oxymask day and night + Urinalysis/Culture w/ Riddle-sensitive EColi - Patient remains asymptomatic - Patient's urine culture grew riddle-sensitive E. coli - Given patient's age and recent syncopal episode will cover for E. 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 Hall. Patient reports a large clot pulled from her mouth today, pain has been controlled, she is seated at bedside in a chair, does have some worry about her son who is seeking medical attention for possible heart attack. Patient seated in chair at bedside, states pain is controlled, is eating well. Saturations have been stable on 2 L facemask. We will restart Eliquis instead of Xarelto, discussed with cardiology, will monitor hemoglobin and for signs of bleeding after initiation. Awaiting placement. Subjective Cammy is an 82F with history of HLD, DM, single kidney (s/p nephrectomy for cancer), anticoagulation (A Fib), tachy-joe syndrome, secondary hyperparathyroidism, renal artery stenosis, RLS, pulmonary emphysema, CHF, COPD, CKD3, HTN, and peptic ulcer disease who presented due to a fall at home and was admitted for management and evaluation of possible syncope. 08/10: Cammy is feeling well today, she notes ongoing discomfort in her face, but that her breathing is overall improved. She passed a large clot from her sinuses this AM, but noted that afterwards her breathing improved. She has not experienced any active bleeding since 08/08. Patient notes no chest pain, headaches, lightheadedness, or abdominal pain. Patient is agreeable to re- starting anticoagulation for her A Fib. Review of Systems Review of Systems: As per HPI Physical Exam Physical Exam: General: NAD, conversive, pleasant HEENT: Diminishing forehead hematoma above right eye. Bilateral infraorbital bruising. Notable ecchymosis surrounding bilateral eyes. Abrasion present on right side of nose. Appropriate hemostasis of abrasions. EOMI/TURNER, no pain with eye movement. Clotted blood dislodged from nares, nares patent. Evidence of palatal and superior lip abrasions with good hemostasis. No active bleeding observed. Respiratory: Non-labored, no wheezing/rhonchi, faint basilar crackles bilaterally (improved) Cardiovascular: RRR. Systolic ejection murmur heard loudest at RUSB/LUSB. No gallops, or rubs. Trace pedal and UE edema bilaterally. GI: Soft, non-distended, active bowel sounds. No TTP. Neuro: Alert and oriented x3. Results & Data Results & Data Vital Signs (Past 12 Hours) Vital Signs Temp Pulse Pulse Resp BP BP Pulse Ox 08/10/22 07:42 08/10/22 03:42 36.7 C 61 16 146/67 H 94 08/10/22 00:25 60 08/09/22 23:15 36.6 C 59 L 20 141/55 H 95 O2 Del Method O2 Flow Rate 08/10/22 07:42 Oxymask 2 08/10/22 03:42 Nasal Cannula 2 08/10/22 00:25 08/09/22 23:15 Oxymask 2 Resident Activity Tracking Resident Involvement: Resident Care Provided Care Provided: Adult Hospital Medicine (1) Multiple facial bone fractures Encounter type: initial encounter
[2022-08-10 08:04] LABS: BUN Creatinine Ratio 36.6 (10-20); Calcium 8.8 mg/dl (8.6-10.3); Creatinine Clr Calc Pharmacy 34.8 ml/min; Est GFR (African American) 43.2 ml/min; Est GFR (Non-African American) 37.3 ml/min; Phosphorus 3.5 mg/dl (2.5-4.9); Potassium 4.1 mmol/L (3.5-5.1)
[2022-08-10] MEDS: CEFDINIR 300 MG CAP PO SCH ×2 (08:16→21:28)
[2022-08-10] MEDS: FUROSEMIDE 20 MG TAB PO SCH (08:16)
[2022-08-10] MEDS: ISOSORBIDE MONO EXTENDED REL 30 MG TABCR PO SCH (08:16)
[2022-08-10] MEDS: amLODIPine BESYLATE 5 MG TAB PO SCH (08:16)
[2022-08-10] MEDS: INSULIN ASPART PER UNIT CHARGE SC SCH ×4 (08:17→21:24)
[2022-08-10] MEDS: ATENOLOL 50 MG TABLET PO SCH (08:17)
[2022-08-10] MEDS: LOSARTAN POTASSIUM 25 MG TAB PO SCH (08:17)
[2022-08-10] MEDS: UMECLIDINIUM/VILANTEROL 62.5/25MCG 7 PUFFS/INHALER INH SCH (08:18)
[2022-08-10] MEDS: FLUTICASONE FUROATE 100MCG 14 PUFFS/INHALER INH SCH (08:18)
[2022-08-10] MEDS: APIXABAN 5 MG TABLET PO SCH ×2 (12:19→21:28)
[2022-08-10] MEDS: ACETAMINOPHEN 500 MG TAB PO PRN (15:20)
[2022-08-10 16:09] LABS: Hematocrit (blood only) 24.5 % (37.0-47.0); Hemoglobin 8.2 g/dl (12.0-16.0)
--- NOTE | 2022-08-10 17:11 | Procedure Note ---
Procedure Note Date of Service August 09, 2022 Note I evaluated Mrs. Zhu this AM No further nasal oozing, less swelling and congestion Ecchymosis resolving and panning out in neck as expected. Now that the nasal swelling has subsided the nasal fracture is not looks that bad--hopefully she will not require ant surgical intervention. I told Mrs Zhu and the nursing staff that it is normal over the next few days to have large clots dislodge given the amount of clotting with in the posterior nose and bilateral sinus. Overall improvement is noted If no bleeding over next 24-48 hours can restart her anticoagulant. Awaiting transfer to rehab. I would like to see Mrs Zhu in my office late next week Coding
[2022-08-10] MEDS: GABAPENTIN 100 MG CAP PO SCH (21:28)
[2022-08-10] MEDS: SIMVASTATIN 20 MG TAB PO SCH (21:28)
--- NOTE | 2022-08-11 07:12 | Hospitalist Progress Note ---
Date of Service August 11, 2022 Assessment & Plan (1) Multiple facial bone fractures: Plan: 82 F with PMH CAD (), permanent A-fib, multiple prior DVTs (on Xarelto), diastolic CHF, tachycardia-bradycardia syndrome (s/p VVI pacer in 2017) DM2, COPD with asthma, hyperlipidemia, hypertension, who presents today after a fall and is being admitted to the hospital for further management following multiple facial bone fractures. Facial bone fractures -Face CT: Bilateral nasal bone fractures + mild comminution, displacement; nondisplaced fractures within anterior, posterior maxillary sinus cano; mildly angulated fracture of lateral left pterygoid plate; angulated fracture of bony nasal septum. -Head CT negative for intracranial abnormality; facial contusions with right forehead hematoma. * PO Tylenol 1000 mg every 8 hours scheduled * IV Dilaudid as needed for breakthrough pain * IV doxycycline changed to Cefdinir (will cover ppx for 1 week post injury) - OMFS recommending conservative management and close outpatient followup. - Continue pain management (not candidate for NSAIDS) - PT recommending rehab prior to discharge home, CM consulted - Nasopharyngeal bleeding/epistaxis resolved --- Continue Eliquis, patient's Hgb stable, follow AM hemoglobin --- Dyspnea overall improving, continue PO Lasix and supplemental O2 as needed --- SNF placement pending Syncope - Ddx: orthostatic hypotension, V Tach, heart block, vasovagal syncope, hypoxia, TIA - Patient last remembers walking toward the trunk of her car before waking up on the pavement. - No preceding symptoms, but was not wearing oxygen during event - CT Head: Negative - Ventricular Pacer Interrogation: Negative - CHF/Aortic Stenosis: Follows w/ Dr. Marcos * Echocardiogram indicating L atrial dilation (severe), R atrial dilation (moderately), aortic stenosis (moderate), mitral regurgitation (mod-severe), tricuspid regurg (moderate), and elevated RVSP (50-60 mmHg) * Consults: Cardiology, appreciate recommendations * Neuro checks * Continuing antihypertensives - Carotid Duplex showing moderate atherosclerotic plaque plaque without sonographic evidence for a hemodynamically significant stenosis. - Cardiology noting lack of evidence for cardiovascular origin of fall, low suspicion for contribution from arrhythmia or valvular pathology, consideration given to hypoxia inciting patient's fall, given that she was not wearing O2 at the time of fall - Most likely etiology is hypoxia, patient with chronic COPD/asthma and night time O2 requirement of 2L, suspect that patient's O2 requirement has increased and thus she now requires additional oxygen support throughout the day. Currently managed on 2L Oxymask, but without, patient desaturates to SpO2 in 80s --- Continue oxygen supplementation PRN, patient stable on 2L NC Atrial fibrillation/history of DVTs -On Xarelto due to extensive history of DVTs, atrial fibrillation. -[id number] score of 9. * Xarelto held on admission. * Initiate low-dose IV heparin without bolus in the a.m - Continue anticoagulation with Eliquis DM2 -Patient takes Sitagliptin at home * SSI insulin, per protocol * hemoglobin A1c = 6.0 Hypertension - Continue antihypertensives (amlodipine, losartan, Imdur) - Trend vitals Hyperlipidemia - Continue simvastatin COPD with asthma, emphysema - Continue Trelegy, as needed albuterol inhaler. - Patient on 2L NC at home, primarily used at night - Hypoxia inpatient, currently requiring 2L Oxymask day and night + Urinalysis/Culture w/ Riddle-sensitive EColi - Patient remains asymptomatic - Patient's urine culture grew riddle-sensitive E. coli - Given patient's age and recent syncopal episode will cover for E. 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 Hall. Hemoglobin has been stable after restart of Eliquis, patient had 1 clot pulled from mouth (dislodged from posterior pharynx/sinuses due to bleeding from trauma), denied any active signs of bleeding. Facial pain and ecchymoses improving. Awaiting insurance authorization for transfer to [facility] care. uZly Chawla is an 82F with history of HLD, DM, single kidney (s/p nephrectomy for cancer), anticoagulation (A Fib), tachy-joe syndrome, secondary hyperparathyroidism, renal artery stenosis, RLS, pulmonary emphysema, CHF, COPD, CKD3, HTN, and peptic ulcer disease who presented due to a fall at home and was admitted for management and evaluation of possible syncope. 08/11: Patient resting in bed upon arrival. She notes that she slept well last night and that her restless legs were calmed by the [place]. She additionally notes that her dyspnea is much improved and she feels overall 'less puffy'. She has had no bleeding from her nose or throat. She denies chest pain, headaches, lightheadedness, or abdominal pain. Review of Systems Review of Systems: As per HPI Physical Exam Physical Exam: General: NAD, conversive, pleasant HEENT: EOMI/MIRELA, no pain w/ eye mvmt. Diminishing forehead hematoma above right eye. Notable ecchymosis surrounding bilateral eyes. Abrasion present on right side of nose. Nares patent. Evidence of palatal and superior lip abrasions. No active bleeding observed, overall good hemostasis. Respiratory: Non-labored, no wheezing/rhonchi, CTAB Cardiovascular: RRR. Systolic ejection murmur heard loudest at RUSB/LUSB. No gallops, or rubs. No UE or LE edema. GI: Soft, non-distended, active bowel sounds. No TTP. Neuro: Alert and oriented x3. Results & Data Results & Data Vital Signs (Past 12 Hours) Vital Signs Temp Pulse Pulse Resp BP Pulse Ox O2 Del Method 08/11/22 07:00 Oxymask 08/11/22 02:42 36.4 C L 63 18 154/54 H 96 Oxymask 08/11/22 00:40 61 08/10/22 22:08 36.5 C 62 18 110/40 L 95 Oxymask 08/10/22 19:40 Oxymask 08/10/22 19:16 36.9 C 60 18 136/64 97 Nasal Cannula O2 Flow Rate 08/11/22 07:00 2 08/11/22 02:42 2 08/11/22 00:40 08/10/22 22:08 2 08/10/22 19:40 2 08/10/22 19:16 2 Resident Activity Tracking Resident Involvement: Resident Care Provided Care Provided: Adult Hospital Medicine (1) Multiple facial bone fractures Encounter type: initial encounter
[2022-08-11] MEDS: APIXABAN 5 MG TABLET PO SCH ×2 (07:24→21:12)
[2022-08-11] MEDS: FUROSEMIDE 20 MG TAB PO SCH (07:24)
[2022-08-11] MEDS: CEFDINIR 300 MG CAP PO SCH ×2 (07:24→22:41)
[2022-08-11] MEDS: amLODIPine BESYLATE 5 MG TAB PO SCH (07:24)
[2022-08-11] MEDS: UMECLIDINIUM/VILANTEROL 62.5/25MCG 7 PUFFS/INHALER INH SCH (07:25)
[2022-08-11] MEDS: ATENOLOL 50 MG TABLET PO SCH (07:25)
[2022-08-11] MEDS: LOSARTAN POTASSIUM 25 MG TAB PO SCH (07:25)
[2022-08-11] MEDS: ISOSORBIDE MONO EXTENDED REL 30 MG TABCR PO SCH (07:25)
[2022-08-11] MEDS: FLUTICASONE FUROATE 100MCG 14 PUFFS/INHALER INH SCH (07:26)
[2022-08-11 08:05] LABS: BUN Creatinine Ratio 35.7 (10-20); Calcium 8.9 mg/dl (8.6-10.3); Creatinine Clr Calc Pharmacy 39.6 ml/min; Est GFR (African American) 50.6 ml/min; Est GFR (Non-African American) 43.7 ml/min; Potassium 4.2 mmol/L (3.5-5.1)
[2022-08-11] MEDS: INSULIN ASPART PER UNIT CHARGE SC SCH ×4 (08:13→21:11)
[2022-08-11 11:09] LABS: Hematocrit (blood only) 26.1 % (37.0-47.0); Hemoglobin 8.6 g/dl (12.0-16.0); Mean Corpuscular Hemoglobin 31.3 pg (25.0-34.0); Mean Corpuscular Volume 94.9 fL (80.0-100.0); Mean Platelet Volume 10.1 fL (9.4-12.4); Platelet Count 144 K/uL (130-400); RDW Coefficient of Variation 14.3 % (11.5-14.5); RDW Standard Deviation 47.6 fL (36.4-46.3); Red Blood Count 2.75 M/uL (4.20-5.40); White Blood Count 7.32 K/ul (4.8-10.8)
[2022-08-11] MEDS: GABAPENTIN 100 MG CAP PO SCH (21:12)
[2022-08-11] MEDS: SIMVASTATIN 20 MG TAB PO SCH (21:12)
[2022-08-11] MEDS: ACETAMINOPHEN 500 MG TAB PO PRN ×2 (23:06)
[2022-08-12] MEDS: CEFDINIR 300 MG CAP PO SCH ×2 (08:12→20:25)
[2022-08-12] MEDS: APIXABAN 5 MG TABLET PO SCH ×2 (08:12→20:26)
[2022-08-12] MEDS: ISOSORBIDE MONO EXTENDED REL 30 MG TABCR PO SCH (08:12)
[2022-08-12] MEDS: ATENOLOL 50 MG TABLET PO SCH (08:13)
[2022-08-12] MEDS: UMECLIDINIUM/VILANTEROL 62.5/25MCG 7 PUFFS/INHALER INH SCH (08:13)
[2022-08-12] MEDS: FLUTICASONE FUROATE 100MCG 14 PUFFS/INHALER INH SCH (08:13)
[2022-08-12] MEDS: LOSARTAN POTASSIUM 25 MG TAB PO SCH (08:13)
[2022-08-12] MEDS: FUROSEMIDE 20 MG TAB PO SCH (08:13)
[2022-08-12] MEDS: amLODIPine BESYLATE 5 MG TAB PO SCH (08:13)
[2022-08-12] MEDS: INSULIN ASPART PER UNIT CHARGE SC SCH ×4 (08:14→20:25)
[2022-08-12 08:25] LABS: Hematocrit (blood only) 28.1 % (37.0-47.0); Hemoglobin 9.3 g/dl (12.0-16.0); Mean Corpuscular Hemoglobin 31.5 pg (25.0-34.0); Mean Corpuscular Hgb Conc 33.1 g/dL (32.0-36.0); Mean Corpuscular Volume 95.3 fL (80.0-100.0); Mean Platelet Volume 9.9 fL (9.4-12.4); Platelet Count 152 K/uL (130-400); RDW Coefficient of Variation 14.6 % (11.5-14.5); RDW Standard Deviation 47.5 fL (36.4-46.3); Red Blood Count 2.95 M/uL (4.20-5.40); White Blood Count 7.11 K/ul (4.8-10.8)
[2022-08-12 08:47] LABS: BUN Creatinine Ratio 26.5 (10-20); Creatinine Clr Calc Pharmacy 38.9 ml/min; Est GFR (African American) 49.6 ml/min; Est GFR (Non-African American) 42.8 ml/min; Potassium 4.2 mmol/L (3.5-5.1)
[2022-08-12] MEDS: ACETAMINOPHEN 500 MG TAB PO PRN ×2 (10:16→20:26)
[2022-08-12] MEDS: HYDROmorphone INJ 0.5 MG/0.5 ML SYR IV PRN ×2 (13:30→22:42)
--- NOTE | 2022-08-12 13:48 | Hospitalist Progress Note ---
Date of Service August 12, 2022 Assessment & Plan (1) Multiple facial bone fractures: Plan: 82 F with PMH CAD (), permanent A-fib, multiple prior DVTs (on Xarelto), diastolic CHF, tachycardia-bradycardia syndrome (s/p VVI pacer in 2017) DM2, COPD with asthma, hyperlipidemia, hypertension, who presents today after a fall and is being admitted to the hospital for further management following multiple facial bone fractures. Facial bone fractures -Face CT: Bilateral nasal bone fractures + mild comminution, displacement; nondisplaced fractures within anterior, posterior maxillary sinus cano; mildly angulated fracture of lateral left pterygoid plate; angulated fracture of bony nasal septum. -Head CT negative for intracranial abnormality; facial contusions with right forehead hematoma. * PO Tylenol 1000 mg every 8 hours scheduled * IV Dilaudid as needed for breakthrough pain * IV doxycycline changed to Cefdinir (will cover ppx for 1 week post injury) - OMFS recommending conservative management and close outpatient followup. - Continue pain management (not candidate for NSAIDS) - PT recommending rehab prior to discharge home, CM consulted - Nasopharyngeal bleeding/epistaxis resolved - Continue Eliquis, patient's Hgb stable, follow AM hemoglobin - Dyspnea overall improving, continue PO Lasix and supplemental O2 as needed - SNF placement pending --- Questionable hemotympanum of left ear, no additional neurologic symptoms, reviewed original CT imaging, patient with pterygoid plate fracture, low suspicion for subarachnoid hemorrhage at this time, but will continue to closely monitor for changes in neurologic status or magnitude of ear discomfort Syncope - Ddx: orthostatic hypotension, V Tach, heart block, vasovagal syncope, hypoxia, TIA - Patient last remembers walking toward the trunk of her car before waking up on the pavement. - No preceding symptoms, but was not wearing oxygen during event - CT Head: Negative - Ventricular Pacer Interrogation: Negative - CHF/Aortic Stenosis: Follows w/ Dr. Marcos * Echocardiogram indicating L atrial dilation (severe), R atrial dilation (moderately), aortic stenosis (moderate), mitral regurgitation (mod-severe), tricuspid regurg (moderate), and elevated RVSP (50-60 mmHg) * Consults: Cardiology, appreciate recommendations * Neuro checks * Continuing antihypertensives - Carotid Duplex showing moderate atherosclerotic plaque plaque without sonographic evidence for a hemodynamically significant stenosis. - Cardiology noting lack of evidence for cardiovascular origin of fall, low suspicion for contribution from arrhythmia or valvular pathology, consideration given to hypoxia inciting patient's fall, given that she was not wearing O2 at the time of fall - Most likely etiology is hypoxia, patient with chronic COPD/asthma and night time O2 requirement of 2L, suspect that patient's O2 requirement has increased and thus she now requires additional oxygen support throughout the day. C urrently managed on 2L Oxymask, but without, patient desaturates to SpO2 in 80s --- Continue oxygen supplementation PRN, patient stable on 2L NC Atrial fibrillation/history of DVTs -On Xarelto due to extensive history of DVTs, atrial fibrillation. -[id number] score of 9. * Xarelto held on admission. * Initiate low-dose IV heparin without bolus in the a.m - Continue anticoagulation with Eliquis DM2 -Patient takes Sitagliptin at home * SSI insulin, per protocol * hemoglobin A1c = 6.0 Hypertension - Continue antihypertensives (amlodipine, losartan, Imdur) - Trend vitals Hyperlipidemia - Continue simvastatin COPD with asthma, emphysema - Continue Trelegy, as needed albuterol inhaler. - Patient on 2L NC at home, primarily used at night - Hypoxia inpatient, currently requiring 2L Oxymask day and night + Urinalysis/Culture w/ Riddle-sensitive EColi - Patient remains asymptomatic - Patient's urine culture grew riddle-sensitive E. coli - Given patient's age and recent syncopal episode will cover for E. coli with Cefdinir (will also cover ppx for facial fractures) - Continue Cefdinir for UTI Code: Full code (has advanced directive) Dispo: Med-Surg telemetry FEN/GI: Soft, no IVF DVT Prophylaxis: Eliquis restarted PT/OT: Recommending rehab, SNF pending Consults: Oral maxillofacial surgery, Case Mgmt (2) Syncope: (3) Fall: (4) Tachycardia-bradycardia syndrome: (5) FPC (current) use of anticoagulants: (6) Type 2 diabetes mellitus: (7) Congestive heart failure: (8) COPD with asthma: Admission and Anticipated Discharge Date Admission Date: August 05, 2022 Supervising Physician Co-Signing Physician Notes I personally examined the patient and verified all gamez points of history and exam, discussed case, and agree with decision making with Dr Hall Left ear pain, but otherwise feeling reasonably okay. For rehab. Vitals noted, in general she is awake alert oriented pleasant no distress. HEENT normocephalic diffusely bruised mucous membranes moist. Left TM with tympanostomy tube and lot of dried wax, but does appear to have hemotympanum visible in the superior arc of her TM, right clear except for a small streak of blood versus dilated blood vessel on the TM, but no evidence of bleeding behind. Neuro intact, mental status intact. Breathing unlabored no accessory muscle use good effort. CBC, BMP reviewed Fall with multiple facial and skull fracturesappears fortunately to be healing well. Left ear pain notablebut given her left pterygoid plate fracture from her fall about a week ago, not surprising that she would have a degree of hemotympanum with thisobviously got to watch her closely, and if there is any worsening of pain, any worsening of headache, or any focal neuro symptomswe will want to repeat a CT, but right now given that everything else other than ear pain seems to be improving, hold off. Ongoing PT/OT eval and treat as well as setting up rehab. Otherwise as above Subjective Cammy is an 82F with history of HLD, DM, single kidney (s/p nephrectomy for cancer), anticoagulation (A Fib), tachy-joe syndrome, secondary hy perparathyroidism, renal artery stenosis, RLS, pulmonary emphysema, CHF, COPD, CKD3, HTN, and peptic ulcer disease who presented due to a fall at home and was admitted for management and evaluation of possible syncope. 08/12: Cammy continus to feel well and notes that her facial pain is improving. She does mention that she is having left ear pain this morning, which is new. She is sleeping better since the addition of Gabapentin. Her dyspnea is improved. She deneis any chest pain, abdominal pain, or bowel/bladder changes. Review of Systems Review of Systems: As per HPI Physical Exam Physical Exam: General: NAD, conversive, pleasant HEENT: EOMI/MIRELA, no pain w/ eye mvmt. Diminishing forehead hematoma above right eye. Notable ecchymosis surrounding bilateral eyes. Abrasion present on right side of nose. Nares patent. Evidence of palatal and superior lip abrasions. No active bleeding observed, overall good hemostasis. - Right Ear: Normal TM, no hemotympanum, small blood anterior to TM - Left Ear: Tympanostomy tube in place, significant cerumen obstructing TM, small dried blood on anterior/superior aspect of external auditory canal, questionable hemotympanum largely obstructed by cerumen/tube Respiratory: Non-labored, no wheezing/rhonchi, CTAB Cardiovascular: RRR. Systolic ejection murmur heard loudest at RUSB/LUSB. No gallops, or rubs. No UE or LE edema. GI: Soft, non-distended, active bowel sounds. No TTP. Neuro: Alert and oriented x3. Results & Data Results & Data Vital Signs (Past 12 Hours) Vital Signs Temp Pulse Pulse Resp BP BP Pulse Ox 08/12/22 11:41 36.4 C L 60 19 121/67 100 08/12/22 08:07 36.5 C 58 L 18 144/60 H 96 08/12/22 07:33 08/12/22 06:53 61 08/12/22 03:27 36.5 C 65 16 153/70 H 92 O2 Del Method O2 Flow Rate 08/12/22 11:41 Oxymask 2 08/12/22 08:07 Oxymask 2 08/12/22 07:33 Oxymask 2 08/12/22 06:53 08/12/22 03:27 Oxymask 2 Resident Activity Tracking Resident Involvement: Resident Care Provided Care Provided: Adult Hospital Medicine (1) Multiple facial bone fractures Encounter type: initial encounter
--- NOTE | 2022-08-12 16:58 | Billing Data ---
Date of Service August 12, 2022 Coding Level of Care Code 47032 SUB INP/OBS CARE
[2022-08-12] MEDS: SIMVASTATIN 20 MG TAB PO SCH (20:25)
[2022-08-12] MEDS: GABAPENTIN 100 MG CAP PO SCH (20:25)
--- NOTE | 2022-08-13 06:52 | Hospitalist Progress Note ---
Date of Service August 13, 2022 Assessment & Plan (1) Multiple facial bone fractures: Plan: 82 F with PMH CAD (), permanent A-fib, multiple prior DVTs (on Xarelto), diastolic CHF, tachycardia-bradycardia syndrome (s/p VVI pacer in 2017) DM2, COPD with asthma, hyperlipidemia, hypertension, who presents today after a fall and is being admitted to the hospital for further management following multiple facial bone fractures. Facial bone fractures -Face CT: Bilateral nasal bone fractures + mild comminution, displacement; nondisplaced fractures within anterior, posterior maxillary sinus cano; mildly angulated fracture of lateral left pterygoid plate; angulated fracture of bony nasal septum. -Head CT negative for intracranial abnormality; facial contusions with right forehead hematoma. * PO Tylenol 1000 mg every 8 hours scheduled * IV Dilaudid as needed for breakthrough pain * IV doxycycline changed to Cefdinir (will cover ppx for 1 week post injury) - OMFS recommending conservative management and close outpatient followup. - Continue pain management (not candidate for NSAIDS) - PT recommending rehab prior to discharge home, CM consulted - Nasopharyngeal bleeding/epistaxis resolved - Continue Eliquis, patient's Hgb stable, follow AM hemoglobin - Dyspnea overall improving, continue PO Lasix and supplemental O2 as needed - SNF placement pending --- Considering patient's known pterygoid plate fracture, increasing ear pain, and evidence of hemotympanum ordered a head CT to rule out subarachnoid hemorrhage --- CT negative for hemorrhage, continue to closely monitor for acute neurologic change Syncope - Ddx: orthostatic hypotension, V Tach, heart block, vasovagal syncope, hypoxia, TIA - Patient last remembers walking toward the trunk of her car before waking up on the pavement. - No preceding symptoms, but was not wearing oxygen during event - CT Head: Negative - Ventricular Pacer Interrogation: Negative - CHF/Aortic Stenosis: Follows w/ Dr. Marcos * Echocardiogram indicating L atrial dilation (severe), R atrial dilation (moderately), aortic stenosis (moderate), mitral regurgitation (mod-severe), tricuspid regurg (moderate), and elevated RVSP (50-60 mmHg) * Consults: Cardiology, appreciate recommendations * Neuro checks * Continuing antihypertensives - Carotid Duplex showing moderate atherosclerotic plaque plaque without s onographic evidence for a hemodynamically significant stenosis. - Cardiology noting lack of evidence for cardiovascular origin of fall, low suspicion for contribution from arrhythmia or valvular pathology, consideration given to hypoxia inciting patient's fall, given that she was not wearing O2 at the time of fall - Most likely etiology is hypoxia, patient with chronic COPD/asthma and night time O2 requirement of 2L, suspect that patient's O2 requirement has increased and thus she now requires additional oxygen support throughout the day. Currently managed on 2L Oxymask, but without, patient desaturates to SpO2 in 80s --- Continue oxygen supplementation PRN, patient stable on 2L NC Atrial fibrillation/history of DVTs -On Xarelto due to extensive history of DVTs, atrial fibrillation. -[id number] score of 9. * Xarelto held on admission. * Initiate low-dose IV heparin without bolus in the a.m - Continue anticoagulation with Eliquis DM2 -Patient takes Sitagliptin at home * SSI insulin, per protocol * hemoglobin A1c = 6.0 Hypertension - Continue antihypertensives (amlodipine, losartan, Imdur) - Trend vitals Hyperlipidemia - Continue simvastatin COPD with asthma, emphysema - Continue Trelegy, as needed albuterol inhaler. - Patient on 2L NC at home, primarily used at night - Hypoxia inpatient, currently requiring 2L Oxymask day and night + Urinalysis/Culture w/ Riddle-sensitive EColi - Patient remains asymptomatic - Patient's urine culture grew riddle-sensitive E. coli - Given patient's age and recent syncopal episode will cover for E. 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 CT head reviewed (ordered, then reviewed) CBC, basic metabolic panel noted) discussed with patient insurance denying both rehab and SNFplan will ultimately have to be to get her home. She agrees she would prefer to go to a facility for rehab, but feels that in her apartment in her facility she should be okaywe agreed to give it a little bit more time, ongoing hospital therapy, and as much support as can be set up. Discussed moving slowly to avoid risk of falls. Discussed critical need to keep her oxygen on at all times. Discussed utilizing oxygen via nasal cannula to ma ke sure she can tolerate before going home. Fall with multiple facial and skull fracturesappears fortunately to be healing well. Left ear pain notablebut given her left pterygoid plate fracture from her fall about a week ago, not surprising that she would have a degree of hemotympanum with thisobviously got to watch her closely, and her follow-up CT is reassuring. Ultimate plan for home once she appears as well put together as we can. Her insurance company on [employer] is putting her into a rough situationshe has fallen and has multiple facial and a skull fracture, but they are denying rehab or SNF, forcing her to go home alone. We have no recourse to this, but keeping her in the hospital in perpetuity will also likely overtime lead to worsening deconditioning, as well as open her up to the risk for nosocomial infectionsmaking this an insurance-inflicted overall bad situation. Discussed with patient, see above. Ultimate plan will be home once she feels as ready as she can be, given the circumstances. Subjective Cammy is an 82F with history of HLD, DM, single kidney (s/p nephrectomy for cancer), anticoagulation (A Fib), tachy-joe syndrome, secondary hyperparathyroidism, renal artery stenosis, RLS, pulmonary emphysema, CHF, COPD, CKD3, HTN, and peptic ulcer disease who presented due to a fall at home and was admitted for management and evaluation of possible syncope. 08/13: Cammy notes this morning that she had increased ear pain overnight along with a headache. She notes that otherwise she is sleeping well, breathing well, and has no new concerns. She denies any chest pain, abdominal pain, or bowel bladder changes. She has not had any active bleeding and notes that the pain in her face is well controlled. Review of Systems Review of Systems: As per HPI Physical Exam Physical Exam: General: NAD, conversive, pleasant HEENT: EOMI/MIRELA, no pain w/ eye mvmt. Diminishing forehead hematoma above right eye. Notable ecchymosis surrounding bilateral eyes. Abrasion present on right side of nose. Nares patent. Evidence of palatal and superior lip abrasions. No active bleeding observed, overall good hemostasis. - Right Ear: Normal TM, no hemotympanum, small blood anterior to TM vs dilated vessel - Left Ear: Tympanostomy tube in place, significant cerumen obstructing TM, small dried blood on anterior/superior aspect of external auditory canal, hemotympanum apparent Respiratory: Non-labored, no wheezing/rhonchi, CTAB Cardiovascular: RRR. Systolic ejection murmur heard loudest at RUSB/LUSB. No gallops, or rubs. No UE or LE edema. GI: Soft, non-distended, active bowel sounds. No TTP. Neuro: Alert and oriented x3. Results & Data Results & Data Vital Signs (Past 12 Hours) Vital Signs Temp Pulse Pulse Resp BP BP Pulse Ox 08/13/22 03:29 36.4 C L 65 16 148/64 H 94 08/12/22 22:01 60 08/12/22 20:00 08/12/22 22:21 36.4 C L 59 L 18 147/58 H 95 08/12/22 19:17 36.5 C 60 18 145/63 H 92 O2 Del Method O2 Flow Rate 08/13/22 03:29 Oxymask 2 08/12/22 22:01 08/12/22 20:00 Oxymask 2 08/12/22 22:21 Oxymask 2 08/12/22 19:17 Oxymask 2 Resident Activity Tracking Resident Involvement: Resident Care Provided Care Provided: Adult Hospital Medicine (1) Multiple facial bone fractures Encounter type: initial encounter
[2022-08-13 07:25] LABS: Mean Corpuscular Hemoglobin 31.5 pg (25.0-34.0); Mean Corpuscular Hgb Conc 32.1 g/dL (32.0-36.0); Mean Corpuscular Volume 97.9 fL (80.0-100.0); Platelet Count 159 K/uL (130-400); RDW Standard Deviation 49.9 fL (36.4-46.3); Red Blood Count 2.86 M/uL (4.20-5.40); White Blood Count 7.12 K/ul (4.8-10.8)
[2022-08-13 07:28] LABS: BUN Creatinine Ratio 24.6 (10-20); Calcium 9.1 mg/dl (8.6-10.3); Creatinine Clr Calc Pharmacy 36.4 ml/min; Est GFR (African American) 45.3 ml/min; Est GFR (Non-African American) 39.1 ml/min; Potassium 4.3 mmol/L (3.5-5.1)
[2022-08-13] MEDS: INSULIN ASPART PER UNIT CHARGE SC SCH ×4 (08:08→20:46)
[2022-08-13] MEDS: CEFDINIR 300 MG CAP PO SCH (08:38)
[2022-08-13] MEDS: FUROSEMIDE 20 MG TAB PO SCH (08:39)
[2022-08-13] MEDS: APIXABAN 5 MG TABLET PO SCH ×2 (08:39→21:45)
[2022-08-13] MEDS: amLODIPine BESYLATE 5 MG TAB PO SCH (08:39)
[2022-08-13] MEDS: ATENOLOL 50 MG TABLET PO SCH (08:39)
[2022-08-13] MEDS: LOSARTAN POTASSIUM 25 MG TAB PO SCH (08:39)
[2022-08-13] MEDS: ISOSORBIDE MONO EXTENDED REL 30 MG TABCR PO SCH (08:39)
[2022-08-13] MEDS: UMECLIDINIUM/VILANTEROL 62.5/25MCG 7 PUFFS/INHALER INH SCH (08:40)
[2022-08-13] MEDS: FLUTICASONE FUROATE 100MCG 14 PUFFS/INHALER INH SCH (08:40)
[2022-08-13] MEDS: POLYETHYLENE (MIRALAX) 17 GM PACK PO PRN (08:42)
--- NOTE | 2022-08-13 11:55 | CT Scan Report ---
CT head/brain wo con CLINICAL HISTORY: hemotympanum Technique: Contiguous axial CT images of the head were acquired from the base of the skull to the lara chetan without intravenous contrast administration. Images were viewed in brain, subdural and bone [facility]. Automated dose lowering techniques and/or adjustment according to patient size were utilized for this exam. Comparison: Comparison is made to CT facial bones for [address] head 08/06/2019 Findings: The ventricles, basal cisterns, and cerebral sulci are normal. There is no acute intracranial hemorrh age or evidence of acute territorial infarction. Neither mass effect, shift of the midline structures , nor abnormal extra-axial fluid collections are shown. Opacification of the left maxillary sinus, several ethmoid air cells, and sinus disease in the left f rontal sinus noted. The orbits appear normal. There are no acute fractures of the calvaria. Scalp sw elling is seen in the right frontal soft tissues. Incidental note is made of soft tissue thickening a t the left tympanum. Impression: Redemonstration of soft tissue swelling in the right frontal region. No hemorrhage or calvarial fract ure is seen. Nasal and maxillary sinus wall fractures are better seen on recent CT maxillofacial. ACT 112: Negative or not required by law. Electronically signed by: Dustin Danielson M.D. 08/13/2022 11:54 AM
--- NOTE | 2022-08-13 19:23 | Billing Data ---
Date of Service August 13, 2022 Coding Level of Care Code 32742 SUB INP/OBS CARE MIN
[2022-08-13] MEDS: ACETAMINOPHEN 500 MG TAB PO PRN (19:42)
[2022-08-13] MEDS: GABAPENTIN 100 MG CAP PO SCH (21:45)
[2022-08-13] MEDS: SIMVASTATIN 20 MG TAB PO SCH (21:46)
[2022-08-13] MEDS: HYDROmorphone INJ 0.5 MG/0.5 ML SYR IV PRN (23:09)
--- NOTE | 2022-08-14 07:04 | Hospitalist Progress Note ---
Date of Service August 14, 2022 Assessment & Plan (1) Multiple facial bone fractures: Plan: 82 F with PMH CAD (), permanent A-fib, multiple prior DVTs (on Xarelto), diastolic CHF, tachycardia-bradycardia syndrome (s/p VVI pacer in 2017) DM2, COPD with asthma, hyperlipidemia, hypertension, who presents today after a fall and is being admitted to the hospital for further management following multiple facial bone fractures. Facial bone fractures -Face CT: Bilateral nasal bone fractures + mild comminution, displacement; nondisplaced fractures within anterior, posterior maxillary sinus cano; mildly angulated fracture of lateral left pterygoid plate; angulated fracture of bony nasal septum. -Head CT negative for intracranial abnormality; facial contusions with right forehead hematoma. * PO Tylenol 1000 mg every 8 hours scheduled * IV Dilaudid as needed for breakthrough pain * IV doxycycline changed to Cefdinir (will cover ppx for 1 week post injury) - OMFS recommending conservative management and close outpatient followup. - Continue pain management (not candidate for NSAIDS) - PT recommending rehab prior to discharge home, CM consulted - Nasopharyngeal bleeding/epistaxis resolved - Continue Eliquis, patient's Hgb stable, follow AM hemoglobin - Dyspnea overall improving, continue PO Lasix and supplemental O2 as needed - SNF placement pending - 08/13 Considering patient's known pterygoid plate fracture, increasing ear pain, and evidence of hemotympanum ordered a head CT to rule out subarachnoid hemorrhage, examination was negative, patient symptoms resolved 08/14 --- Epistaxis starting this AM, ongoing despite attempts at 2x2 gauze packing, ordered nasal saline and Afrin, continue to monitor Syncope - Ddx: orthostatic hypotension, V Tach, heart block, vasovagal syncope, hypoxia, TIA - Patient last remembers walking toward the trunk of her car before waking up on the pavement. - No preceding symptoms, but was not wearing oxygen during event - CT Head: Negative - Ventricular Pacer Interrogation: Negative - CHF/Aortic Stenosis: Follows w/ Dr. Marcos * Echocardiogram indicating L atrial dilation (severe), R atrial dilation (mo derately), aortic stenosis (moderate), mitral regurgitation (mod-severe), tricuspid regurg (moderate), and elevated RVSP (50-60 mmHg) * Consults: Cardiology, appreciate recommendations * Neuro checks * Continuing antihypertensives - Carotid Duplex showing moderate atherosclerotic plaque plaque without sonographic evidence for a hemodynamically significant stenosis. - Cardiology noting lack of evidence for cardiovascular origin of fall, low suspicion for contribution from arrhythmia or valvular pathology, consideration given to hypoxia inciting patient's fall, given that she was not wearing O2 at the time of fall - Most likely etiology is hypoxia, patient with chronic COPD/asthma and night time O2 requirement of 2L, suspect that patient's O2 requirement has increased and thus she now requires additional oxygen support throughout the day. Currently managed on 2L Oxymask, but without, patient desaturates to SpO2 in 80s --- Continue oxygen supplementation PRN, patient stable on 2L NC --- Patient endorsing increased dyspnea, coarse upper airway sounds, likely 2/2 to ongoing nasopharyhgeal bleeding, continue to monitor Atrial fibrillation/history of DVTs -On Xarelto due to extensive history of DVTs, atrial fibrillation. -[id number] score of 9. * Xarelto held on admission. * Initiate low-dose IV heparin without bolus in the a.m - Continue anticoagulation with Eliquis DM2 -Patient takes Sitagliptin at home * SSI insulin, per protocol * hemoglobin A1c = 6.0 Hypertension - Continue antihypertensives (amlodipine, losartan, Imdur) - Trend vitals Hyperlipidemia - Continue simvastatin COPD with asthma, emphysema - Continue Trelegy, as needed albuterol inhaler. - Patient on 2L NC at home, primarily used at night - Hypoxia inpatient, currently requiring 2L Oxymask day and night + Urinalysis/Culture w/ Riddle-sensitive EColi - Patient remains asymptomatic - Patient's urine culture grew riddle-sensitive E. coli - Given patient's age and recent syncopal episode will cover for E. coli with Cefdinir (will also cover ppx for facial fractures) - Continue Cefdinir for UTI Code: Full code (has advanced directive) Dispo: Med-Surg telemetry, PT/OT: Recommending inpatient rehab, which was denied, attempt for SNF was also denied, will now consider HH and attempt to establish safe discharge plan for patient given unfortunate circumstance of multiple insurance denials for recommended level of care FEN/GI: Soft, no IVF DVT Prophylaxis: Eliquis restarted Consults: Oral maxillofacial surgery, Case Mgmt (2) Syncope: (3) Fall: (4) Tachycardia-bradycardia syndrome: (5) CHCF (current) use of anticoagulants: (6) Type 2 diabetes mellitus: (7) Congestive heart failure: (8) COPD with asthma: Admission and Anticipated Discharge Date Admission Date: August 05, 2022 Supervising Physician Co-Signing Physician Notes I personally examined the patient and verified all gamez points of history and exam, discussed case, and agree with decision making with Dr Isabel Anguiano today. Improving some with Afrin, but somewhat persistent. Otherwise no new complaints. Vitals noted, in general she is awake and alert pleasant no distress. Nose with gauze that has a mild degree of bloody discharge. Lungs coarse throughout but no rhonchi no wheezes no accessory muscle use no conversational dyspnea good effort. CBC, BMP noted. Fall with multiple facial and skull fracturesappears fortunately to be healing well. Add Ciprodex otic for hemotympanum. Afrin for nosecompa, continue to follow. Her insurance company on ethically is putting her into a rough situationshe has fallen and has multiple facial and a skull fracture, but they are denying rehab or SNF, forcing her to go home alone. We have no recourse to this, but keeping her in the hospital in perpetuity will also likely overtime lead to worsening deconditioning, as well as open her up to the risk for nosocomial infectionsmaking this an insurance-inflicted overall bad situation. Ultimate plan will be home once she feels as ready as she can be, given the circumstances. Zuly Chawla is an 82F with history of HLD, DM, single kidney (s/p nephrectomy for cancer), anticoagulation (A Fib), tachy-joe syndrome, secondary hyperparathyroidism, renal artery stenosis, RLS, pulmonary emphysema, CHF, COPD, CKD3, HTN, and peptic ulcer disease who presented due to a fall at home and was admitted for management and evaluation of possible syncope. 08/14: Patient's left ear pain is improved, she notes that it is still sore, but overall unremarkable today. Patient did begin experiencing Epistaxis again this morning, which is ongoing, despite attempts at light raciel packing. She is denying lightheadedness or dizziness. Patient is not having chest pain, but is having incrasing dyspnea and notes that her hands and feet feel more 'puffy'. Review of Systems Review of Systems: As per HPI Physical Exam Physical Exam: General: NAD, conversive, pleasant HEENT: EOMI/MIRELA, no pain w/ eye mvmt. Diminishing forehead hematoma above right eye. Notable ecchymosis surrounding bilateral eyes. Abrasion present on right side of nose. Nares patent. Evidence of palatal and superior lip abrasions. No active bleeding observed, overall good hemostasis. - Epistaxis (light) from left nare Respiratory: Non-labored, crackles throughout with coarse upper airway sounds Cardiovascular: RRR. Systolic ejection murmur heard loudest at RUSB/LUSB. No gallops, or rubs. Trace UE and LE edema bilaterally. GI: Soft, non-distended, active bowel sounds. No TTP. Neuro: Alert and oriented x3. Results & Data Results & Data Vital Signs (Past 12 Hours) Vital Signs Temp Pulse Pulse Resp BP BP Pulse Ox 08/14/22 04:06 36.6 C 62 20 112/70 92 08/13/22 21:59 62 08/13/22 21:30 08/13/22 23:25 36.3 C L 60 20 167/61 H 96 08/13/22 19:23 36.6 C 65 20 126/43 L 93 O2 Del Method O2 Flow Rate 08/14/22 04:06 Oxymask 3 08/13/22 21:59 08/13/22 21:30 Oxymask 2 08/13/22 23:25 Oxymask 2 08/13/22 19:23 Oxymask 2 Resident Activity Tracking Resident Involvement: Resident Care Provided Care Provided: Adult Hospital Medicine (1) Multiple facial bone fractures Encounter type: initial encounter
[2022-08-14] MEDS: INSULIN ASPART PER UNIT CHARGE SC SCH ×4 (08:12→21:11)
[2022-08-14] MEDS ORDERED: SODIUM CHLORIDE 0.65% NA SOLN 45 ML (OCEAN) PRN (08:19)
[2022-08-14 08:26] LABS: Hematocrit (blood only) 26.6 % (37.0-47.0); Hemoglobin 8.7 g/dl (12.0-16.0); Mean Corpuscular Hemoglobin 31.3 pg (25.0-34.0); Mean Corpuscular Hgb Conc 32.7 g/dL (32.0-36.0); Mean Corpuscular Volume 95.7 fL (80.0-100.0); Mean Platelet Volume 10.4 fL (9.4-12.4); Platelet Count 163 K/uL (130-400); RDW Coefficient of Variation 15.1 % (11.5-14.5); RDW Standard Deviation 50.3 fL (36.4-46.3); Red Blood Count 2.78 M/uL (4.20-5.40); White Blood Count 7.27 K/ul (4.8-10.8)
[2022-08-14 08:27] LABS: BUN Creatinine Ratio 21.1 (10-20); Calcium 8.9 mg/dl (8.6-10.3); Creatinine Clr Calc Pharmacy 36.2 ml/min; Est GFR (African American) 44.5 ml/min; Est GFR (Non-African American) 38.4 ml/min; Potassium 4.4 mmol/L (3.5-5.1)
[2022-08-14] MEDS: OXYMETAZOLINE 0.05% 30 ML BTL PRN ×3 (08:57→21:12)
[2022-08-14] MEDS: amLODIPine BESYLATE 5 MG TAB PO SCH (09:02)
[2022-08-14] MEDS: ISOSORBIDE MONO EXTENDED REL 30 MG TABCR PO SCH (09:02)
[2022-08-14] MEDS: FLUTICASONE FUROATE 100MCG 14 PUFFS/INHALER INH SCH (09:02)
[2022-08-14] MEDS: ATENOLOL 50 MG TABLET PO SCH (09:02)
[2022-08-14] MEDS: LOSARTAN POTASSIUM 25 MG TAB PO SCH (09:03)
[2022-08-14] MEDS: FUROSEMIDE 20 MG TAB PO SCH (09:03)
[2022-08-14] MEDS: UMECLIDINIUM/VILANTEROL 62.5/25MCG 7 PUFFS/INHALER INH SCH (10:49)
[2022-08-14] MEDS: ACETAMINOPHEN 500 MG TAB PO PRN (16:34)
--- NOTE | 2022-08-14 17:20 | Billing Data ---
Date of Service August 14, 2022 Coding Level of Care Code 21701 SUB INP/OBS CARE MIN
[2022-08-14] MEDS: SIMVASTATIN 20 MG TAB PO SCH (21:13)
[2022-08-14] MEDS: CIPRO 0.3%/DEXAMETHASONE 0.1% OTIC SUSP 7.5ML OTL SCH (21:13)
[2022-08-14] MEDS: GABAPENTIN 100 MG CAP PO SCH (21:13)
[2022-08-14] MEDS: HYDROmorphone INJ 0.5 MG/0.5 ML SYR IV PRN (22:33)
--- NOTE | 2022-08-15 06:54 | Hospitalist Progress Note ---
Date of Service August 15, 2022 Assessment & Plan (1) Multiple facial bone fractures: Plan: 82 F with PMH CAD (), permanent A-fib, multiple prior DVTs (on Xarelto), diastolic CHF, tachycardia-bradycardia syndrome (s/p VVI pacer in 2017) DM2, COPD with asthma, hyperlipidemia, hypertension, who presents today after a fall and is being admitted to the hospital for further management following multiple facial bone fractures. Facial bone fractures -Face CT: Bilateral nasal bone fractures + mild comminution, displacement; nondisplaced fractures within anterior, posterior maxillary sinus cano; mildly angulated fracture of lateral left pterygoid plate; angulated fracture of bony nasal septum. -Head CT negative for intracranial abnormality; facial contusions with right forehead hematoma. * PO Tylenol 1000 mg every 8 hours scheduled * IV Dilaudid as needed for breakthrough pain * IV doxycycline changed to Cefdinir (will cover ppx for 1 week post injury) - OMFS recommending conservative management and close outpatient followup. - Continue pain management (not candidate for NSAIDS) - PT recommending rehab prior to discharge home, CM consulted - Nasopharyngeal bleeding/epistaxis resolved - Continue Eliquis, patient's Hgb stable, follow AM hemoglobin - Dyspnea overall improving, continue PO Lasix and supplemental O2 as needed - SNF placement pending - 08/13 Considering patient's known pterygoid plate fracture, increasing ear pain, and evidence of hemotympanum ordered a head CT to rule out subarachnoid hemorrhage, examination was negative, patient symptoms resolved 08/14 --- Epistaxis starting 08/14, improving, ongoing 2x2 gauze packing, nasal saline and Afrin, Hgb stable (9.0) --- Restart Eliquis for A Fib, continue to monitor H&H Syncope - Ddx: orthostatic hypotension, V Tach, heart block, vasovagal syncope, hypoxia, TIA - Patient last remembers walking toward the trunk of her car before waking up on the pavement. - No preceding symptoms, but was not wearing oxygen during event - CT Head: Negative - Ventricular Pacer Interrogation: Negative - CHF/Aortic Stenosis: Follows w/ Dr. Marcos * Echocardiogram indicating L atrial dilation (severe), R atrial dilation (moderately), aortic stenosis (moderate), mitral regurgitation (mod-severe), tricuspid regurg (moderate), and elevated RVSP (50-60 mmHg) * Consults: Cardiology, appreciate recommendations * Neuro checks * Continuing antihypertensives - Carotid Duplex showing moderate atherosclerotic plaque plaque without sonographic evidence for a hemodynamically significant stenosis. - Cardiology noting lack of evidence for cardiovascular origin of fall, low suspicion for contribution from arrhythmia or valvular pathology, consideration given to hypoxia inciting patient's fall, given that she was not wearing O2 at the time of fall - Most likely etiology is hypoxia, patient with chronic COPD/asthma and night time O2 requirement of 2L, suspect that patient's O2 requirement has increased and thus she now requires additional oxygen support throughout the day. Currently managed on 2L Oxymask, but without, patient desaturates to SpO2 in 80s --- Continue oxygen supplementation PRN, patient stable on 2L NC --- Dyspnea improved, upper airway sounds resolved, suspect likely 2/2 aspirated blood from epistaxis Atrial fibrillation/history of DVTs -On Xarelto due to extensive history of DVTs, atrial fibrillation. -[id number] score of 9. * Xarelto held on admission. * Initiate low-dose IV heparin without bolus in the a.m - Continue anticoagulation with Eliquis DM2 -Patient takes Sitagliptin at home * SSI insulin, per protocol * hemoglobin A1c = 6.0 Hypertension - Continue antihypertensives (amlodipine, losartan, Imdur) - Trend vitals Hyperlipidemia - Continue simvastatin COPD with asthma, emphysema - Continue Trelegy, as needed albuterol inhaler. - Patient on 2L NC at home, primarily used at night - Hypoxia inpatient, currently requiring 2L Oxymask day and night + Urinalysis/Culture w/ Riddle-sensitive EColi - Patient remains asymptomatic - Patient's urine culture grew riddle-sensitive E. coli - Given patient's age and recent syncopal episode will cover for E. coli with Cefdinir (will also cover ppx for facial fractures) - Continue Cefdinir for UTI Code: Full code (has advanced directive) Dispo: Med-Surg telemetry, PT/OT: Recommending inpatient rehab, which was denied, attempt for SNF was also denied, will now consider HH and attempt to establish safe discharge plan for patient given unfortunate circumstance of multiple insurance denials for recommended level of care. Patient's family able to establish home caregiver who will start Friday, will anticipate Friday for discharge, patient comfortable with plan. 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 Son has caregiver set up for home starting on Friday5 hours a day. Patient would prefer to stay till then. Given that her insurance company on ethically and inexplicably denied any rehab or SNF despite her being old frail having fallen with multiple facial and skull fractures and living alone, I absolutely agree with her plan to stay here until she has more care at home. No other new complaints. Vitals noted, in general she is awake and alert pleasant no distress. Ongoing facial bruising does appear to be slowly healing. Breathing unlabored no accessory muscle use good effort. Skin shows no rashes no pallor or icterus. CBC, BMP noted Fall with multiple facial and skull fracturesappears fortunately to be healing well. Continue Ciprodex otic for hemotympanum. Afrin for luciano, continue to follow, appears to be abating. Her insurance company on ethically is putting her into a rough situationshe has fallen and has multiple facial and a skull fracture, but they are denying rehab or SNF, forcing her to go home alone. We have no recourse to this, but keeping her in the hospital in perpetuity will also likely overtime lead to worsening deconditioning, as well as open her up to the risk for nosocomial infectionsmaking this an insurance-inflicted overall bad situation. Ultimate plan will be home once she feels as ready as she can be, given the circumstances. Given that she is getting more caregiver support set up for Friday, that sounds to be reasonable Subjective Cammy is an 82F with history of HLD, DM, single kidney (s/p nephrectomy for cancer), anticoagulation (A Fib), tachy-joe syndrome, secondary hyperparathyroidism, renal artery stenosis, RLS, pulmonary emphysema, CHF, COPD, CKD3, HTN, and peptic ulcer disease who presented due to a fall at home and was admitted for management and evaluation of possible syncope. 08/15: Patient upright in bedside chair enjoying breakfast upon arrival. She notes that she is feeling well and that while her nose is still bleeding, it is very slow. She feels that her dyspnea is improved and she continues to wear her Oxymask. She notes an ongoing dull ache in her left ear, but that this is overall improved. She has coughed up a few clots from her epistaxis, but she has been able to pass them without significant difficulty breathing. Patient anticipates working with PT today to become stronger so she can transition safely to home. Review of Systems Review of Systems: As per HPI Physical Exam Physical Exam: General: NAD, conversive, pleasant HEENT: EOMI/MIRELA, no pain w/ eye mvmt. Diminishing forehead hematoma above right eye. Notable ecchymosis surrounding bilateral eyes. Abrasion present on right side of nose. Nares patent. Evidence of palatal and superior lip abrasions. No active bleeding observed, overall good hemostasis. - Epistaxis (light) from left nare (2x2 gauze intact in left nare) Respiratory: Non-labored, resolved upper airway sounds, otherwise CTAB Cardiovascular: RRR. Systolic ejection murmur heard loudest at RUSB/LUSB. No gallops, or rubs. Trace UE and LE edema bilaterally. GI: Soft, non-distended, active bowel sounds. No TTP. Neuro: Alert and oriented x3. Results & Data Results & Data Vital Signs (Past 12 Hours) Vital Signs Temp Pulse Pulse Resp BP Pulse Ox O2 Del Method 08/15/22 02:46 36.5 C 62 16 144/51 H 98 Oxymask 08/14/22 22:00 67 08/14/22 23:34 Oxymask 08/14/22 23:15 36.8 C 60 18 151/66 H 94 Oxymask 08/14/22 19:19 36.5 C 62 18 142/55 H 96 Oxymask O2 Flow Rate 08/15/22 02:46 3 08/14/22 22:00 08/14/22 23:34 3 08/14/22 23:15 3 08/14/22 19:19 3 Resident Activity Tracking Resident Involvement: Resident Care Provided Care Provided: Adult [facility] Medicine (1) Multiple facial bone fractures Encounter type: initial encounter
[2022-08-15 08:08] LABS: Hematocrit (blood only) 27.6 % (37.0-47.0); Mean Corpuscular Hemoglobin 31.3 pg (25.0-34.0); Mean Corpuscular Hgb Conc 32.6 g/dL (32.0-36.0); Mean Corpuscular Volume 95.8 fL (80.0-100.0); Mean Platelet Volume 10.1 fL (9.4-12.4); Platelet Count 193 K/uL (130-400); RDW Coefficient of Variation 14.9 % (11.5-14.5); RDW Standard Deviation 50.4 fL (36.4-46.3); Red Blood Count 2.88 M/uL (4.20-5.40); White Blood Count 8.43 K/ul (4.8-10.8)
[2022-08-15 08:25] LABS: Albumin Globulin Ratio 1.2 (0.9-2); Albumin Level 3.2 gm/dl (3.4-5.0); Bilirubin,Total 0.5 mg/dl (0.2-1.0); Calcium 9.1 mg/dl (8.6-10.3); Creatinine Clr Calc Pharmacy 37.7 ml/min; Est GFR (African American) 47.1 ml/min; Est GFR (Non-African American) 40.6 ml/min; Globulin 2.7 gm/dl (2.5-4.0); Potassium 4.7 mmol/L (3.5-5.1); Total Protein 5.9 gm/dl (6.0-8.3)
[2022-08-15] MEDS: INSULIN ASPART PER UNIT CHARGE SC SCH ×4 (08:30→21:26)
[2022-08-15] MEDS: ISOSORBIDE MONO EXTENDED REL 30 MG TABCR PO SCH (08:30)
[2022-08-15] MEDS: FUROSEMIDE 20 MG TAB PO SCH (08:30)
[2022-08-15] MEDS: ATENOLOL 50 MG TABLET PO SCH (08:30)
[2022-08-15] MEDS: LOSARTAN POTASSIUM 25 MG TAB PO SCH (08:31)
[2022-08-15] MEDS: CIPRO 0.3%/DEXAMETHASONE 0.1% OTIC SUSP 7.5ML OTL SCH ×2 (08:31→21:26)
[2022-08-15] MEDS: amLODIPine BESYLATE 5 MG TAB PO SCH (08:31)
[2022-08-15] MEDS: FLUTICASONE FUROATE 100MCG 14 PUFFS/INHALER INH SCH (08:31)
[2022-08-15] MEDS: UMECLIDINIUM/VILANTEROL 62.5/25MCG 7 PUFFS/INHALER INH SCH (08:31)
[2022-08-15] MEDS: ACETAMINOPHEN 500 MG TAB PO PRN (10:00)
[2022-08-15] MEDS ORDERED: OXYMETAZOLINE 0.05% 30 ML BTL NAE ONE (10:00)
--- NOTE | 2022-08-15 15:10 | Billing Data ---
Date of Service August 15, 2022 Coding Level of Care Code 65150 SUB INP/OBS CARE
[2022-08-15] MEDS: APIXABAN 5 MG TABLET PO SCH (21:25)
[2022-08-15] MEDS: GABAPENTIN 100 MG CAP PO SCH (21:26)
[2022-08-15] MEDS: SIMVASTATIN 20 MG TAB PO SCH (21:27)
[2022-08-15] MEDS: HYDROmorphone INJ 0.5 MG/0.5 ML SYR IV PRN (21:27)
[2022-08-15] MEDS: OXYMETAZOLINE 0.05% 30 ML BTL PRN (21:30)
--- NOTE | 2022-08-16 07:32 | Hospitalist Progress Note ---
Date of Service August 16, 2022 Assessment & Plan (1) Multiple facial bone fractures: Plan: 82 F with PMH CAD (), permanent A-fib, multiple prior DVTs (on Xarelto), diastolic CHF, tachycardia-bradycardia syndrome (s/p VVI pacer in 2017) DM2, COPD with asthma, hyperlipidemia, hypertension, who presents today after a fall and is being admitted to the hospital for further management following multiple facial bone fractures. Facial bone fractures -Face CT: Bilateral nasal bone fractures + mild comminution, displacement; nondisplaced fractures within anterior, posterior maxillary sinus cano; mildly angulated fracture of lateral left pterygoid plate; angulated fracture of bony nasal septum. -Head CT negative for intracranial abnormality; facial contusions with right forehead hematoma. * PO Tylenol 1000 mg every 8 hours scheduled * IV Dilaudid as needed for breakthrough pain * IV doxycycline changed to Cefdinir (will cover ppx for 1 week post injury) - OMFS recommending conservative management and close outpatient followup. - Continue pain management (not candidate for NSAIDS) - PT recommending rehab prior to discharge home, CM consulted - Nasopharyngeal bleeding/epistaxis resolved - Continue Eliquis, patient's Hgb stable, follow AM hemoglobin - Dyspnea overall improving, continue PO Lasix and supplemental O2 as needed - SNF placement pending - 08/13 Considering patient's known pterygoid plate fracture, increasing ear pain, and evidence of hemotympanum ordered a head CT to rule out subarachnoid hemorrhage, examination was negative, patient symptoms resolved 08/14 - Epistaxis on 08/14, improving, ongoing 2x2 gauze packing, nasal saline and Afrin, Hgb stable (9.0) --- Continue Eliquis for A Fib, continue to monitor H&H Syncope - Ddx: orthostatic hypotension, V Tach, heart block, vasovagal syncope, hypoxia, TIA - Patient last remembers walking toward the trunk of her car before waking up on the pavement. - No preceding symptoms, but was not wearing oxygen during event - CT Head: Negative - Ventricular Pacer Interrogation: Negative - CHF/Aortic Stenosis: Follows w/ Dr. Marcos * Echocardiogram indicating L atrial dilation (severe), R atrial dilation (moderately), aortic stenosis (moderate), mitral regurgitation (mod-severe), tricuspid regurg (moderate), and elevated RVSP (50-60 mmHg) * Consults: Cardiology, appreciate recommendations * Neuro checks * Continuing antihypertensives - Carotid Duplex showing moderate atherosclerotic plaque plaque without sonographic evidence for a hemodynamically significant stenosis. - Cardiology noting lack of evidence for cardiovascular origin of fall, low suspicion for contribution from arrhythmia or valvular pathology, consideration given to hypoxia inciting patient's fall, given that she was not wearing O2 at the time of fall - Most likely etiology is hypoxia, patient with chronic COPD/asthma and night time O2 requirement of 2L, suspect that patient's O2 requirement has increased and thus she now requires additional oxygen support throughout the day. Currently managed on 2L Oxymask, but without, patient desaturates to SpO2 in 80s --- Continue oxygen supplementation PRN, patient stable on 2L NC --- Dyspnea improved, upper airway sounds resolved, suspect likely 2/2 aspirated blood from epistaxis Atrial fibrillation/history of DVTs -On Xarelto due to extensive history of DVTs, atrial fibrillation. -[id number] score of 9. * Xarelto held on admission. * Initiate low-dose IV heparin without bolus in the a.m - Continue anticoagulation with Eliquis DM2 -Patient takes Sitagliptin at home * SSI insulin, per protocol * hemoglobin A1c = 6.0 Hypertension - Continue antihypertensives (amlodipine, losartan, Imdur) - Trend vitals Hyperlipidemia - Continue simvastatin COPD with asthma, emphysema - Continue Trelegy, as needed albuterol inhaler. - Patient on 2L NC at home, primarily used at night - Hypoxia inpatient, currently requiring 2L Oxymask day and night + Urinalysis/Culture w/ Riddle-sensitive EColi - Patient remains asymptomatic - Patient's urine culture grew riddle-sensitive E. coli - Given patient's age and recent syncopal episode will cover for E. coli with Cefdinir (will also cover ppx for facial fractures) - Continue Cefdinir for UTI Code: Full code (has advanced directive) Dispo: Med-Surg telemetry * PT/OT: Recommending inpatient rehab, which was denied, attempt for SNF was also denied, will now consider HH and attempt to establish safe discharge plan for patient given unfortunate circumstance of multiple insurance denials for recommended level of care. * Patient's family able to establish home caregiver who will start Friday, will anticipate Friday for discharge, patient comfortable with plan. FEN/GI: Soft, no IVF DVT Prophylaxis: Thierry restarted Consults: Oral maxillofacial surgery, Case Mgmt (2) Syncope: (3) Fall: (4) Tachycardia-bradycardia syndrome: (5) custodial (current) use of anticoagulants: (6) Type 2 diabetes mellitus: (7) Congestive heart failure: (8) COPD with asthma: Admission and Anticipated Discharge Date Admission Date: August 05, 2022 Supervising Physician Co-Signing Physician Notes I personally examined the patient and verified all gamez points of history and exam, discussed case, and agree with decision making with Dr Hall feeling better, care set up for friday. thinks home friday night will be preferred. no other new complaints. vitals noted nad bruising improving L nostril w gauze that is not saturated. breathing unlabored no accessory muscles good effort skin no rashes no pallor or icterus. no focal neuro deficits. Fall with multiple facial and skull fracturesappears fortunately to be healing well. Continue Ciprodex otic for hemotympanum. Afrin for nosebleed, continue to follow, appears to be abating. Her insurance company on [employer] is putting her into a rough situationshe has fallen and has multiple facial and a skull fracture, but they are denying rehab or SNF, forcing her to go home alone. We have no recourse to this, but keeping her in the hospital in perpetuity will also likely overtime lead to worsening deconditioning, as well as open her up to the risk for nosocomial infectionsmaking this an insurance-inflicted overall bad situation. Ultimate plan will be home once she feels as ready as she can be, given the circumstances. Given that she is getting more caregiver support set up for Friday, that sounds to be reasonable - and she is planning on cautiously going home friday night so she can meet the caregivers when they arrive Subjective Cammy is an 82F with history of HLD, DM, single kidney (s/p nephrectomy for cancer), anticoagulation (A Fib), tachy-joe syndrome, secondary hyperparathyroidism, renal artery stenosis, RLS, pulmonary emphysema, CHF, COPD, CKD3, HTN, and peptic ulcer disease who presented due to a fall at home and was admitted for management and evaluation of possible syncope. 08/16: Cammy was sitting at bedside on arrival. She notes she is feeling well and has no acute concerns. She occasionally still has epistaxis, but it is overall diminished. Her ear pain has resolved. She notes that PT went well today and that she feels confident that she can walk to the bathroom with her walker. She denies chest pain, dyspnea, abdominal pain or bowel/bladder changes. Review of Systems Review of Systems: As per HPI Physical Exam Physical Exam: General: NAD, conversive, pleasant HEENT: EOMI/MIRELA, no pain w/ eye mvmt. Diminishing forehead hematoma above right eye. Notable ecchymosis surrounding bilateral eyes. Abrasion present on right side of nose. Nares patent. Evidence of palatal and superior lip abrasions. No active bleeding observed, overall good hemostasis. Respiratory: Non-labored, resolved upper airway sounds, otherwise CTAB Cardiovascular: RRR. Systolic ejection murmur heard loudest at RUSB/LUSB. No gallops, or rubs. Trace UE and LE edema bilaterally. GI: Soft, non-distended, active bowel sounds. No TTP. Neuro: Alert and oriented x3. Results & Data Results & Data Vital Signs (Past 12 Hours) Vital Signs Temp Pulse Pulse Resp BP BP Pulse Ox 08/16/22 00:00 60 08/15/22 21:00 08/16/22 02:56 36.5 C 60 16 162/63 H 93 08/15/22 22:27 36.7 C 61 18 147/68 H 95 O2 Del Method O2 Flow Rate 08/16/22 00:00 08/15/22 21:00 Oxymask 2 08/16/22 02:56 Oxymask 2 08/15/22 22:27 Oxymask 2 Resident Activity Tracking Resident Involvement: Resident Care Provided Care Provided: Adult Hospital Medicine (1) Multiple facial bone fractures Encounter type: initial encounter
[2022-08-16] MEDS: OXYMETAZOLINE 0.05% 30 ML BTL PRN ×2 (07:36→15:27)
[2022-08-16] MEDS: UMECLIDINIUM/VILANTEROL 62.5/25MCG 7 PUFFS/INHALER INH SCH (07:36)
[2022-08-16] MEDS: APIXABAN 5 MG TABLET PO SCH ×2 (07:37→22:53)
[2022-08-16] MEDS: amLODIPine BESYLATE 5 MG TAB PO SCH (07:37)
[2022-08-16] MEDS: FUROSEMIDE 20 MG TAB PO SCH (07:39)
[2022-08-16] MEDS: ATENOLOL 50 MG TABLET PO SCH (07:39)
[2022-08-16] MEDS: ISOSORBIDE MONO EXTENDED REL 30 MG TABCR PO SCH (07:39)
[2022-08-16] MEDS: LOSARTAN POTASSIUM 25 MG TAB PO SCH (07:39)
[2022-08-16] MEDS: FLUTICASONE FUROATE 100MCG 14 PUFFS/INHALER INH SCH (07:40)
[2022-08-16 07:51] LABS: Hematocrit (blood only) 27.4 % (37.0-47.0); Hemoglobin 8.8 g/dl (12.0-16.0); Mean Corpuscular Hemoglobin 31.2 pg (25.0-34.0); Mean Corpuscular Hgb Conc 32.1 g/dL (32.0-36.0); Mean Corpuscular Volume 97.2 fL (80.0-100.0); Platelet Count 183 K/uL (130-400); RDW Coefficient of Variation 14.8 % (11.5-14.5); RDW Standard Deviation 51.1 fL (36.4-46.3); Red Blood Count 2.82 M/uL (4.20-5.40); White Blood Count 6.87 K/ul (4.8-10.8)
[2022-08-16 08:16] LABS: BUN Creatinine Ratio 23.2 (10-20); Calcium 9.1 mg/dl (8.6-10.3); Creatinine Clr Calc Pharmacy 36.8 ml/min; Est GFR (African American) 45.7 ml/min; Est GFR (Non-African American) 39.5 ml/min; Potassium 4.3 mmol/L (3.5-5.1)
[2022-08-16] MEDS: INSULIN ASPART PER UNIT CHARGE SC SCH ×4 (08:16→22:52)
[2022-08-16] MEDS: CIPRO 0.3%/DEXAMETHASONE 0.1% OTIC SUSP 7.5ML OTL SCH ×2 (08:18→22:55)
[2022-08-16] MEDS: ACETAMINOPHEN 500 MG TAB PO PRN (15:27)
--- NOTE | 2022-08-16 18:02 | Billing Data ---
Date of Service August 16, 2022 Coding Level of Care Code 22652 SUB INP/OBS CARE
[2022-08-16] MEDS: GABAPENTIN 100 MG CAP PO SCH (22:53)
[2022-08-16] MEDS: SIMVASTATIN 20 MG TAB PO SCH (22:54)
[2022-08-16] MEDS: HYDROmorphone INJ 0.5 MG/0.5 ML SYR IV PRN (22:55)
--- NOTE | 2022-08-17 06:58 | Hospitalist Progress Note ---
Date of Service August 17, 2022 Assessment & Plan (1) Multiple facial bone fractures: Plan: 82 F with PMH CAD (), permanent A-fib, multiple prior DVTs (on Xarelto), diastolic CHF, tachycardia-bradycardia syndrome (s/p VVI pacer in 2017) DM2, COPD with asthma, hyperlipidemia, hypertension, who presents today after a fall and is being admitted to the hospital for further management following multiple facial bone fractures. Facial bone fractures -Face CT: Bilateral nasal bone fractures + mild comminution, displacement; nondisplaced fractures within anterior, posterior maxillary sinus cano; mildly angulated fracture of lateral left pterygoid plate; angulated fracture of bony nasal septum. -Head CT negative for intracranial abnormality; facial contusions with right forehead hematoma. * PO Tylenol 1000 mg every 8 hours scheduled * IV Dilaudid as needed for breakthrough pain * IV doxycycline changed to Cefdinir (will cover ppx for 1 week post injury) - OMFS recommending conservative management and close outpatient followup. - Continue pain management (not candidate for NSAIDS) - PT recommending rehab prior to discharge home, CM consulted - Nasopharyngeal bleeding/epistaxis resolved - Continue Eliquis, patient's Hgb stable, follow AM hemoglobin - Dyspnea overall improving, continue PO Lasix and supplemental O2 as needed - SNF placement pending - 08/13 Considering patient's known pterygoid plate fracture, increasing ear pain, and evidence of hemotympanum ordered a head CT to rule out subarachnoid hemorrhage, examination was negative, patient symptoms resolved 08/14 - Epistaxis on 08/14, improving, ongoing 2x2 gauze packing, nasal saline and Afrin, Hgb stable (9.0) - 08/17: minimal nasal bleeding, responding well to gauze and Afrin as needed. Hemoglobin today 8.6 --- Continue Eliquis for A Fib, continue to monitor H&H --- Continue Ciprodex otic drops Syncope - Ddx: orthostatic hypotension, V Tach, heart block, vasovagal syncope, hypoxia, TIA - Patient last remembers walking toward the trunk of her car before waking up on the pavement. - No preceding symptoms, but was not wearing oxygen during event - CT Head: Negative - Ventricular Pacer Interrogation: Negative - CHF/Aortic Stenosis: Follows w/ Dr. Marcos * Echocardiogram indicating L atrial dilation (severe), R atrial dilation (moderately), aortic stenosis (moderate), mitral regurgitation (mod-severe), tricuspid regurg (moderate), and elevated RVSP (50-60 mmHg) * Consults: Cardiology, appreciate recommendations * Neuro checks * Continuing antihypertensives - Carotid Duplex showing moderate atherosclerotic plaque plaque without sonographic evidence for a hemodynamically significant stenosis. - Cardiology noting lack of evidence for cardiovascular origin of fall, low suspicion for contribution from arrhythmia or valvular pathology, consideration given to hypoxia inciting patient's fall, given that she was not wearing O2 at the time of fall - Most likely etiology is hypoxia, patient with chronic COPD/asthma and night time O2 requirement of 2L, suspect that patient's O2 requirement has increased and thus she now requires additional oxygen support throughout the day. Currently managed on 2L Oxymask, but without, patient desaturates to SpO2 in 80s --- Continue oxygen supplementation PRN, patient stable on 2L NC --- Dyspnea improved Atrial fibrillation/history of DVTs -On Xarelto due to extensive history of DVTs, atrial fibrillation. -[id number] score of 9. * Xarelto held on admission. * Initiated low-dose IV heparin without bolus. - Continue anticoagulation with Eliquis DM2 -Patient takes Sitagliptin at home * SSI insulin, per protocol * hemoglobin A1c = 6.0 Hypertension - Continue antihypertensives (amlodipine, losartan, Imdur) - Trend vitals Hyperlipidemia - Continue simvastatin COPD with asthma, emphysema - Continue Trelegy, as needed albuterol inhaler. - Patient on 2L NC at home, primarily used at night - Hypoxia inpatient, currently requiring 2L Oxymask day and night + Urinalysis/Culture w/ Riddle-sensitive EColi - Patient remains asymptomatic - Patient's urine culture grew riddle-sensitive E. coli - Given patient's age and recent syncopal episode will cover for E. coli with Cefdinir (will also cover ppx for facial fractures) - Received Cefdinir earlier in stay. No current UTI symptoms. Code: Full code (has advanced directive) Dispo: Med-Surg telemetry * PT/OT: Recommending inpatient rehab, which was denied, attempt for SNF was also denied, will now consider HH and attempt to establish safe discharge plan for patient given unfortunate circumstance of multiple insurance denials for recommended level of care. * Patient's family able to establish home caregiver who will start Friday, will anticipate Friday for discharge, patient comfortable with plan. 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 Otherwise she feels like she is good to go home tomorrow night. No other new complaints. vitals noted nad bruising improving L nostril not bleeding and no gauze. breathing unlabored no accessory muscles good effort skin no rashes no pallor or icterus. no focal neuro deficits. Fall with multiple facial and skull fracturesappears fortunately to be healing well. Continue Ciprodex otic for hemotympanum. Afrin for nosebleed, continue to follow, appears to be abating. Her insurance company on [employer] is putting her into a rough situationshe has fallen and has multiple facial and a skull fracture, but they are denying rehab or SNF, forcing her to go home alone. We have no recourse to this, but keeping her in the hospital in perpetuity will also likely overtime lead to worsening deconditioning, as well as open her up to the risk for nosocomial infectionsmaking this an insurance-inflicted overall bad situation. Ultimate plan will be home once she feels as ready as she can be, given the circumstances. Given that she is getting more caregiver support set up for Friday, that sounds to be reasonable - and she is planning on cautiously going home friday night so she can meet the caregivers when they arrive. Prescription for wheelchair written Subjective Cammy is an 82F with history of HLD, DM, single kidney (s/p nephrectomy for cancer), anticoagulation (A Fib), tachy-joe syndrome, secondary hyperparat hyroidism, renal artery stenosis, RLS, pulmonary emphysema, CHF, COPD, CKD3, HTN, and peptic ulcer disease who presented due to a fall at home and was admitted for management and evaluation of possible syncope. 08/17: Patient was seen and examined at bedside. No acute events overnight. Patient states she is feeling well today, denies any weakness/dizziness/lightheadedness. Has been using 2L oxymask intermittently. States she has very little bleeding from her nose this morning, states that the Afrin nose spray is helpful. Has been eating and drinking without issue. Denies shortness of breath, chest pain, abdominal pain. Review of Systems Review of Systems: As per HPI Physical Exam Constitutional: WD/WN, vitals as above ENMT: Diffuse ecchymosis around face/head. No active epistaxis. Anicteric sclerae. Moist mucous membranes. Respiratory: normal respiratory effort, lungs clear to auscultation Cardiovascular: RRR, no murmur, no edema Gastrointestinal (Abdomen): Abdomen soft, nondistended. +Bowel sounds. No masses palpated. Musculoskeletal: Moves all limbs independently. Psychiatric: A+Ox3, euthymic affect Results & Data Results & Data Vital Signs (Past 12 Hours) Vital Signs Temp Pulse Resp BP Pulse Ox O2 Del Method O2 Flow Rate 08/17/22 02:55 36.6 C 62 18 144/67 H 95 Oxymask 2 08/16/22 23:12 36.5 C 63 18 171/73 H 94 Oxymask 2 08/16/22 23:04 Oxymask 0.5 08/16/22 19:48 36.5 C 60 18 153/60 H 94 Oxymask 2 Resident Activity Tracking Resident Involvement: Resident Care Provided Care Provided: Adult Hospital Medicine (1) Multiple facial bone fractures Encounter type: initial encounter
[2022-08-17 07:15] LABS: BUN Creatinine Ratio 26.4 (10-20); Est GFR (African American) 45.7 ml/min; Est GFR (Non-African American) 39.5 ml/min; Potassium 4.3 mmol/L (3.5-5.1)
[2022-08-17 07:28] LABS: Hematocrit (blood only) 26.6 % (37.0-47.0); Hemoglobin 8.6 g/dl (12.0-16.0); Mean Corpuscular Hemoglobin 31.4 pg (25.0-34.0); Mean Corpuscular Hgb Conc 32.3 g/dL (32.0-36.0); Mean Corpuscular Volume 97.1 fL (80.0-100.0); Mean Platelet Volume 10.2 fL (9.4-12.4); Platelet Count 192 K/uL (130-400); Red Blood Count 2.74 M/uL (4.20-5.40); White Blood Count 6.97 K/ul (4.8-10.8)
[2022-08-17] MEDS: OXYMETAZOLINE 0.05% 30 ML BTL PRN ×3 (08:05→20:55)
[2022-08-17] MEDS: LOSARTAN POTASSIUM 25 MG TAB PO SCH (08:05)
[2022-08-17] MEDS: APIXABAN 5 MG TABLET PO SCH ×2 (08:08→20:56)
[2022-08-17] MEDS: FUROSEMIDE 20 MG TAB PO SCH (08:09)
[2022-08-17] MEDS: amLODIPine BESYLATE 5 MG TAB PO SCH (08:09)
[2022-08-17] MEDS: ATENOLOL 50 MG TABLET PO SCH (08:09)
[2022-08-17] MEDS: CIPRO 0.3%/DEXAMETHASONE 0.1% OTIC SUSP 7.5ML OTL SCH ×2 (08:09→20:55)
[2022-08-17] MEDS: ISOSORBIDE MONO EXTENDED REL 30 MG TABCR PO SCH (08:09)
[2022-08-17] MEDS: UMECLIDINIUM/VILANTEROL 62.5/25MCG 7 PUFFS/INHALER INH SCH (08:10)
[2022-08-17] MEDS: FLUTICASONE FUROATE 100MCG 14 PUFFS/INHALER INH SCH (08:10)
[2022-08-17] MEDS: INSULIN ASPART PER UNIT CHARGE SC SCH ×4 (08:14→20:56)
[2022-08-17] MEDS: POLYETHYLENE (MIRALAX) 17 GM PACK PO PRN (09:04)
--- NOTE | 2022-08-17 18:10 | Billing Data ---
Date of Service August 17, 2022 Coding Level of Care Code 72933 SUB INP/OBS CARE
[2022-08-17] MEDS: SIMVASTATIN 20 MG TAB PO SCH (20:56)
[2022-08-17] MEDS: GABAPENTIN 100 MG CAP PO SCH (20:56)
[2022-08-17] MEDS: HYDROmorphone INJ 0.5 MG/0.5 ML SYR IV PRN (20:58)
[2022-08-18 06:34] LABS: Hematocrit (blood only) 26.2 % (37.0-47.0); Hemoglobin 8.6 g/dl (12.0-16.0); Mean Corpuscular Hemoglobin 31.6 pg (25.0-34.0); Mean Corpuscular Hgb Conc 32.8 g/dL (32.0-36.0); Mean Corpuscular Volume 96.3 fL (80.0-100.0); Mean Platelet Volume 10.3 fL (9.4-12.4); Platelet Count 188 K/uL (130-400); RDW Standard Deviation 51.8 fL (36.4-46.3); Red Blood Count 2.72 M/uL (4.20-5.40); White Blood Count 9.03 K/ul (4.8-10.8)
[2022-08-18 06:54] LABS: BUN Creatinine Ratio 27.9 (10-20); Calcium 8.8 mg/dl (8.6-10.3); Creatinine Clr Calc Pharmacy 37.6 ml/min; Est GFR (African American) 47.1 ml/min; Est GFR (Non-African American) 40.6 ml/min; Potassium 4.3 mmol/L (3.5-5.1)
[2022-08-18] MEDS: INSULIN ASPART PER UNIT CHARGE SC SCH ×4 (08:28→21:16)
[2022-08-18] MEDS: APIXABAN 5 MG TABLET PO SCH ×2 (08:34→19:59)
[2022-08-18] MEDS: OXYMETAZOLINE 0.05% 30 ML BTL PRN ×2 (08:34→22:37)
[2022-08-18] MEDS: ATENOLOL 50 MG TABLET PO SCH (08:34)
[2022-08-18] MEDS: ISOSORBIDE MONO EXTENDED REL 30 MG TABCR PO SCH (08:35)
[2022-08-18] MEDS: FUROSEMIDE 20 MG TAB PO SCH (08:35)
[2022-08-18] MEDS: UMECLIDINIUM/VILANTEROL 62.5/25MCG 7 PUFFS/INHALER INH SCH (08:35)
[2022-08-18] MEDS: amLODIPine BESYLATE 5 MG TAB PO SCH (08:35)
[2022-08-18] MEDS: LOSARTAN POTASSIUM 25 MG TAB PO SCH (08:35)
[2022-08-18] MEDS: FLUTICASONE FUROATE 100MCG 14 PUFFS/INHALER INH SCH (08:35)
[2022-08-18] MEDS: CIPRO 0.3%/DEXAMETHASONE 0.1% OTIC SUSP 7.5ML OTL SCH ×2 (08:36→20:00)
--- NOTE | 2022-08-18 12:09 | Hospitalist Progress Note ---
Date of Service August 18, 2022 Assessment & Plan (1) Multiple facial bone fractures: Plan: 82 F with PMH CAD (), permanent A-fib, multiple prior DVTs (on Xarelto), diastolic CHF, tachycardia-bradycardia syndrome (s/p VVI pacer in 2017) DM2, COPD with asthma, hyperlipidemia, hypertension, who presents today after a fall and is being admitted to the hospital for further management following multiple facial bone fractures. Facial bone fractures -Face CT: Bilateral nasal bone fractures + mild comminution, displacement; nondisplaced fractures within anterior, posterior maxillary sinus cano; mildly angulated fracture of lateral left pterygoid plate; angulated fracture of bony nasal septum. -Head CT negative for intracranial abnormality; facial contusions with right forehead hematoma. * PO Tylenol 1000 mg every 8 hours scheduled * IV Dilaudid as needed for breakthrough pain * IV doxycycline changed to Cefdinir (will cover ppx for 1 week post injury) - OMFS recommending conservative management and close outpatient followup. - Continue pain management (not candidate for NSAIDS) - PT recommending rehab prior to discharge home, CM consulted - Nasopharyngeal bleeding/epistaxis resolved - Continue Eliquis, patient's Hgb stable, follow AM hemoglobin - Dyspnea overall improving, continue PO Lasix and supplemental O2 as needed - SNF placement pending - 08/13 Considering patient's known pterygoid plate fracture, increasing ear pain, and evidence of hemotympanum ordered a head CT to rule out subarachnoid hemorrhage, examination was negative, patient symptoms resolved 08/14 - Epistaxis on 08/14, improving, ongoing 2x2 gauze packing, nasal saline and Afrin, Hgb stable (9.0) - 08/17: minimal nasal bleeding, responding well to gauze and Afrin as needed. Hemoglobin today 8.6 - 08/18: additional nose bleeds this morning. Hemoglobin still stable but patient understandably worried about discharge. -Called and talked with patient's son regarding plan to stay until tomorrow. Will consult ENT to evaluate tomorrow. --- Continue Eliquis for A Fib, continue to monitor H&H --- Continue Ciprodex otic drops Syncope - Ddx: orthostatic hypotension, V Tach, heart block, vasovagal syncope, hypoxia, TIA - Patient last remembers walking toward the trunk of her car before waking up on the pavement. - No preceding symptoms, but was not wearing oxygen during event - CT Head: Negative - Ventricular Pacer Interrogation: Negative - CHF/Aortic Stenosis: Follows w/ Dr. Marcos * Echocardiogram indicating L atrial dilation (severe), R atrial dilation (moderately), aortic stenosis (moderate), mitral regurgitation (mod-severe), tricuspid regurg (moderate), and elevated RVSP (50-60 mmHg) * Consults: Cardiology, appreciate recommendations * Neuro checks * Continuing antihypertensives - Carotid Duplex showing moderate atherosclerotic plaque plaque without sonographic evidence for a hemodynamically significant stenosis. - Cardiology noting lack of evidence for cardiovascular origin of fall, low suspicion for contribution from arrhythmia or valvular pathology, consideration given to hypoxia inciting patient's fall, given that she was not wearing O2 at the time of fall - Most likely etiology is hypoxia, patient with chronic COPD/asthma and night time O2 requirement of 2L, suspect that patient's O2 requirement has increased and thus she now requires additional oxygen support throughout the day. Currently managed on 2L Oxymask, but without, patient desaturates to SpO2 in 80s. Required additional O2 to 5L overnight, currently back to 2L requiremnent. --- Continue oxygen supplementation PRN, Atrial fibrillation/history of DVTs -On Xarelto due to extensive history of DVTs, atrial fibrillation. -[id number] score of 9. * Xarelto held on admission. * Initiated low-dose IV heparin without bolus. - Continue anticoagulation with Eliquis DM2 -Patient takes Sitagliptin at home * SSI insulin, per protocol * hemoglobin A1c = 6.0 Hypertension - Continue antihypertensives (amlodipine, losartan, Imdur) - Trend vitals Hyperlipidemia - Continue simvastatin COPD with asthma, emphysema - Continue Trelegy, as needed albuterol inhaler. - Patient on 2L NC at home, primarily used at night - Hypoxia inpatient, currently requiring 2L Oxymask day and night + Urinalysis/Culture w/ Riddle-sensitive EColi - Patient remains asymptomatic - Patient's urine culture grew riddle-sensitive E. coli - Given patient's age and recent syncopal episode will cover for E. coli with Cefdinir (will also cover ppx for facial fractures) - Received Cefdinir earlier in stay. No current UTI symptoms. Code: Full code (has advanced directive) Dispo: Med-Surg telemetry * PT/OT: Recommending inpatient rehab, which was denied, attempt for SNF was also denied, will now consider HH and attempt to establish safe discharge plan for patient given unfortunate circumstance of multiple insurance denials for recommended level of care. * Patient's family able to establish home caregiver who will start Friday, will anticipate Friday for discharge, patient comfortable with plan. 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 Nosebleed started again. Worried about going home. Vitals noted, in general she is awake and alert pleasant, facial bruising is continuing to resolve, left nostril is packed with gauze again. Pleasantly anxious but otherwise no distress. Breathing unlabored no accessory muscle use good effort. Skin other than bruising shows no rashes pallor or icterus. Fall with multiple facial and skull fracturesappears fortunately to be healing well. Continue Ciprodex otic for hemotympanum x5 days (should end tomorrow). Afrin for nosebleed, continue to follow, waxing and waning now about 3 separate occurrences in the last weekand I do suspect she would do poorly should this oc cur at homewill ask ENT to electively evaluate her for possible packing or cautery. Given that she is feeling weaker today, and the nosebleed recurredhold on discharge for now. Her insurance company on ethically is putting her into a rough situationshe has fallen and has multiple facial and a skull fracture, but they are denying rehab or SNF, forcing her to go home alone. We have no recourse to this, but keeping her in the hospital in perpetuity will also likely overtime lead to worsening deconditioning, as well as open her up to the risk for nosocomial infectionsmaking this an insurance-inflicted overall bad situation. Ultimate plan will be home once she feels as ready as she can be, given the circumstances. Given that we are being forced to send her home due to the insurance companies inexplicable denials for any rehabilitative care in a supervised setting, we definitely cannot ethically send her home feeling weaker with a recurrence of nosebleedI would harbor grave concerns about her having further falls and further fractures. Zuly Chawla is an 82F with history of HLD, DM, single kidney (s/p nephrectomy for cancer), anticoagulation (A Fib), tachy-joe syndrome, secondary hyperparathyroidism, renal artery stenosis, RLS, pulmonary emphysema, CHF, COPD, CKD3, HTN, and peptic ulcer disease who presented due to a fall at home and was admitted for management and evaluation of possible syncope. 08/18: Patient was seen and examined at bedside. Notes that she had another nose bleed this morning with some dizziness and later coughed up a few clots. She states she is worried about going home by herself with the nose bleeds continuing. She also required some additional oxygen overnight (5L compared to her typical 2L). Denies chest pain, abdominal pain, nausea/vomiting. Review of Systems Review of Systems: As per HPI Physical Exam Constitutional: WD/WN, vitals as above ENMT: Ecchymosis throughout face and head, some swelling around left eye/forehead. Gauze packed inside nostril. Respiratory: Oxymask in place. Good aeration. No rales or rhonchi. Cardiovascular: RRR, no murmur, no edema Gastrointestinal (Abdomen): normal bowel sounds, soft, nontender, no hep atosplenomegaly Skin: Ecchymosis of face as described above. Psychiatric: A+Ox3, euthymic affect Results & Data Results & Data Vital Signs (Past 12 Hours) Vital Signs Temp Pulse Pulse Resp BP Pulse Ox O2 Del Method 08/18/22 07:42 36.6 C 60 16 163/66 H 94 Oxymask 08/18/22 06:08 93 Oxymask 08/18/22 03:15 91 Oxymask 08/18/22 03:00 36.6 C 60 18 157/54 H 88 L Oxymask 08/18/22 01:05 60 O2 Flow Rate 08/18/22 07:42 2 08/18/22 06:08 2 08/18/22 03:15 5 08/18/22 03:00 3 08/18/22 01:05 Resident Activity Tracking Resident Involvement: Resident Care Provided Care Provided: Adult Hospital Medicine (1) Multiple facial bone fractures Encounter type: initial encounter
--- NOTE | 2022-08-18 15:03 | Billing Data ---
Date of Service August 18, 2022 Coding Level of Care Code 72709 SUB INP/OBS CARE
[2022-08-18] MEDS: GABAPENTIN 100 MG CAP PO SCH (19:59)
[2022-08-18] MEDS: SIMVASTATIN 20 MG TAB PO SCH (19:59)
[2022-08-18] MEDS: HYDROmorphone INJ 0.5 MG/0.5 ML SYR IV PRN (22:36)
[2022-08-19 07:07] LABS: Hematocrit (blood only) 27.3 % (37.0-47.0); Hemoglobin 8.9 g/dl (12.0-16.0); Mean Corpuscular Hemoglobin 30.9 pg (25.0-34.0); Mean Corpuscular Hgb Conc 32.6 g/dL (32.0-36.0); Mean Corpuscular Volume 94.8 fL (80.0-100.0); Mean Platelet Volume 10.3 fL (9.4-12.4); Platelet Count 193 K/uL (130-400); RDW Coefficient of Variation 14.6 % (11.5-14.5); RDW Standard Deviation 50.4 fL (36.4-46.3); Red Blood Count 2.88 M/uL (4.20-5.40); White Blood Count 7.33 K/ul (4.8-10.8)
[2022-08-19 07:25] LABS: Calcium 8.9 mg/dl (8.6-10.3); Creatinine Clr Calc Pharmacy 38.9 ml/min; Est GFR (Non-African American) 42.3 ml/min; Potassium 4.4 mmol/L (3.5-5.1)
[2022-08-19] MEDS: ISOSORBIDE MONO EXTENDED REL 30 MG TABCR PO SCH (08:52)
[2022-08-19] MEDS: FUROSEMIDE 20 MG TAB PO SCH (08:52)
[2022-08-19] MEDS: APIXABAN 5 MG TABLET PO SCH ×2 (08:53→20:59)
[2022-08-19] MEDS: ATENOLOL 50 MG TABLET PO SCH (08:53)
[2022-08-19] MEDS: amLODIPine BESYLATE 5 MG TAB PO SCH (08:53)
[2022-08-19] MEDS: INSULIN ASPART PER UNIT CHARGE SC SCH ×4 (08:56→20:53)
[2022-08-19] MEDS: UMECLIDINIUM/VILANTEROL 62.5/25MCG 7 PUFFS/INHALER INH SCH (08:57)
[2022-08-19] MEDS: FLUTICASONE FUROATE 100MCG 14 PUFFS/INHALER INH SCH (08:58)
[2022-08-19] MEDS: CIPRO 0.3%/DEXAMETHASONE 0.1% OTIC SUSP 7.5ML OTL SCH ×2 (08:58→21:00)
[2022-08-19] MEDS: LOSARTAN POTASSIUM 25 MG TAB PO SCH (08:59)
--- NOTE | 2022-08-19 11:22 | Hospitalist Progress Note ---
Date of Service August 19, 2022 Assessment & Plan (1) Multiple facial bone fractures: Plan: Pt is an 82 yo female with PMH of CAD (), permanent A-fib, multiple prior DVTs (on Xarelto), diastolic CHF, tachycardia-bradycardia syndrome (s/p VVI pacer in 2017), DM2, COPD with asthma, hyperlipidemia, hypertension, who presents after a fall and is being admitted to the hospital for further management following multiple facial bone fractures. Facial bone fractures - Face CT: Bilateral nasal bone fractures + mild comminution, displacement; nondisplaced fractures within anterior, posterior maxillary sinus cano; mildly angulated fracture of lateral left pterygoid plate; angulated fracture of bony nasal septum - Head CT negative for intracranial abnormality; facial contusions with right forehead hematoma * PO Tylenol 1000 mg every 8 hours PRN, IV Dilaudid PRN * s/p cefdinir x1 week post injury - oral maxillofacial surgery recommended conservative management and close outpatient followup - Continue pain management (not candidate for NSAIDS) Acute nose bleed with h/o Recurrent epistaxis - hx of recurrent epistaxis requiring cauterization as outpatient. exacerbated due to acute injury. - 08/14 - 2x2 gauze packing, nasal saline and Afrin. Hgb 9.0 - 08/17: minimal nasal bleeding, responding well to gauze and Afrin as needed. Hgb 8.6 - 08/18: additional nose bleeds this morning. Hgb 8.6 - 08/19: pending ENT consult concerning epistaxis. Nasal packing used overnight. Hgb 8.9 --- Continue eliquis for A Fib, continue to monitor H&H --- Continue ciprodex otic drops Syncope - Last remembers walking toward the trunk of her car before waking up on the pavement - No preceding symptoms, but was not wearing oxygen during event - CT Head upon admission: neg - Ventricular pacer Interrogation: neg - hx of CHF/aortic stenosis: follows w/ Dr. Marcos * Echo - Moderate , [id number], TR (moderate), and elevated RVSP (50-60 mmHg) * cardio consulted; low suspicion this event was precipitated from , bradycardia, arrhythmia - carotid US showed moderate atherosclerotic plaque without evidence of hemodynamically significant stenosis - likely etiology d/t hypoxia. Atrial fibrillation/history of DVTs - On Xarelto due to extensive history of DVTs and atrial fibrillation - [id number] score of 9 - Xarelto held on admission; initiated low-dose IV heparin without bolus - switched anticoagulation to eliquis 5 mg BID COPD with asthma, emphysema Chronic respiratory failure - Continue Trelegy, albuterol inhaler PRN - Patient on 2L NC at home, primarily used at night - change in oxygen requirements as above Asymptomatic bacteriuria - Patient remains asymptomatic - Patient's urine culture grew riddle-sensitive E. coli - s/p cefdinir for ppx from facial fractures DM2 - Patient takes Sitagliptin at home * SSI insulin, per protocol * hemoglobin A1c = 6.0 Hypertension - Continue home amlodipine, losartan, and Imdur Hyperlipidemia - Continue simvastatin Code: Full code (has advanced directive) Dispo: Med-Surg, telemetry * PT/OT: Recommending inpatient rehab, which was denied, attempt for SNF was also denied; however, pt significantly declined physically as she almost had near syncopal event during PT today. 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 Subjective Pt seen at bedside this AM. Overall she feels ok. She still has some pain above her right eye and in her left ear. Otherwise, doing well. She does explain her hx of nose bleeds and how they have recently increased again in the setting of her facial fractures. She had her left nostril packed overnight and had not removed the packing yet when I spoke with her. Denies SOB, chest pain, leg pains. Review of Systems Review of Systems: As per HPI Physical Exam Physical Exam: Constitutional: no acute distress HEENT: normocephalic w/ 1 cm localized round edema along right eye brow, no conjunctival injection CV: RRR, no murmur, 1+ pitting edema of bilateral LE Respiratory: CTA bilaterally. No rhonchi, wheezes, or crackles. No increased work of breathing MSK: no gross deformities noted Skin: warm, dry, no rashes, extensive purple bruising of bilateral face extending into neck Neuro: alert, oriented, no FND noted Psych: mood and affect congruent Results & Data Results & Data Vital Signs (Past 12 Hours) Vital Signs Temp Pulse Pulse Resp BP Pulse Ox O2 Del Method 08/19/22 10:53 36.6 C 57 L 16 157/65 H 98 Oxymask 08/19/22 07:17 36.7 C 59 L 18 149/65 H 94 Oxymask 08/19/22 00:21 Oxymask 08/19/22 00:00 61 08/18/22 23:28 36.6 C 59 L 20 150/64 H 95 Oxymask O2 Flow Rate 08/19/22 10:53 3 08/19/22 07:17 2 08/19/22 00:21 2 08/19/22 00:00 08/18/22 23:28 2 Resident Activity Tracking Resident Involvement: Resident Care Provided Care Provided: Adult Hospital Medicine (1) Multiple facial bone fractures Encounter type: initial encounter
[2022-08-19] MEDS: ACETAMINOPHEN 500 MG TAB PO PRN (12:42)
--- NOTE | 2022-08-19 19:38 | ENT Consultation ---
Date of Consultation August 19, 2022 Assessment & Plan (1) Epistaxis due to trauma: NOT currently active bleeding now. NO signs of a Septal hematoma. Small Forehead / RIGHT Eyebrow hematoma. Present on Admission?: Yes Plan 1. NOT Actively bleeding. - NO septal hematoma. Would STOP any additional AFRIN as this will cause Rebound Swelling in the Nose. Nose & Oropharynx are extremely Dry. The OLD Blood needs to drain & Clear from the Maxillary Sinuses. NASAL SALINE SPRAY - Two (2) Puffs in EACH NOSTRIL - EVERY HOUR while Patient is AWAKE is NECESSARY for 10 days. THis will Allow the DRY crusts of Blood and coagulum to Dissolve & Drain. Otherwise - Bacteria will set in the blood agar and cause infection. 2. Would ADD GUAIFENESIN 600 mg BID as a mucolytic Agent for Nasal a& Sinus Draining. - Take this for 10 days. 3. Would NOT Pack the Nose -NO active bleeding. This would only set up for infection. NO cautery necessary. Would Only use a "Gauze Moustache" for Any Nasal Dripping. 4. Nasal Bone fractures are minimally displaced and closed reduction not necessary. 5. LEFT Ear is NOT a hemotympanum - but a Cerumen Plug around a Blue T-Tube Tympanostomy Tube. Ear Drops NOT necessary. T-tube has been present for about two years. This should be followed - up in ENT Clinic to be removed as an outpatient. This T-Tube was inserted by Dr. MOURA and patient may follow-up there. History of Present Illness Reason for Consultation: Epistaxis Requesting Physician: Mckay Avery DO Hospitalist Service Attending Physician: Joan Cotton MD History of Present Illness 82 F with PMH CAD ([place]-1992), permanent A-fib, multiple prior DVTs (on Xarelto), diastolic CHF, tachycardia-bradycardia syndrome (s/p VVI pacer in 2017) DM2, COPD with asthma, hyperlipidemia, hypertension, who presented to [facility] on 05 AUGUST 2022 - after a fall and was admitted to the hospital for further management following multiple facial bone fractures. Her injuries from the fall - multiple facial and skull fracturesappears fortunately to be healing well. She was started on and Continued on Ciprodex otic for hemotympanum x5 days. Afrin was given for her episodes of nosebleed, which have been, waxing and waning - with about 3 separate occurrences in the last week. An ENT Consult is requested to electively evaluate her for possible packing or cautery. Allergies Allergy/AdvReac Type Severity Reaction Status Date / Time chlorthalidone Allergy Severe Swelling Verified 08/05/22 20:54 of Lip/Tongue/Throat Penicillins Allergy Severe Swelling Verified 08/05/22 20:54 of Lip/Tongue/Throat MANDEEP Inhibitors Allergy Unknown Unknown Verified 08/05/22 20:54 trazodone Allergy Unknown Unknown Verified 08/05/22 20:54 Home Medications Medication Instructions Recorded Confirmed Type calcium citrate 250 mg 1 tab PO QAM 11/07/18 08/05/22 History calcium-vitamin D3 5 mcg (200 unit) tablet cranberry concentrate-ascorbic 1 cap PO DAILY 11/07/18 08/05/22 History acid 4,200 mg-20 mg capsule multivitamin 1 tab PO QAM 11/07/18 08/05/22 History amlodipine 10 mg tablet 10 mg PO DAILY #90 tabs 09/12/21 08/05/22 Rx cholecalciferol (vitamin D3) 50 50 mcg PO BID #30 caps 09/12/21 08/05/22 Rx mcg (2,000 unit) capsule nitroglycerin 0.4 mg sublingual 0.4 mg sublingual UD PRN chest 09/12/21 08/05/22 Rx tablet pain #20 tabs sitagliptin phosphate 25 mg tablet 25 mg PO QAM #90 tabs 09/12/21 08/05/22 Rx (Januvia) atenolol 50 mg tablet 50 mg PO QAM #90 tabs 01/10/22 08/05/22 Rx losartan 25 mg tablet 25 mg PO QAM #90 tabs 01/10/22 08/05/22 Rx rivaroxaban 15 mg tablet (Xarelto) 15 mg PO .COMPLEX #90 tabs 01/10/22 08/05/22 Rx simvastatin 20 mg tablet 20 mg PO HS #90 tabs 01/10/22 08/05/22 Rx albuterol sulfate 90 mcg/actuation 2 puff inhalation Q4H PRN 02/21/22 08/05/22 Rx aerosol inhaler (Ventolin HFA) shortness of breath or wheezing #18 grams fluticasone fur. 100 mcg-umeclid 1 inh inhalation DAILY #3 Inhalers 02/21/22 08/05/22 Rx 62.5 mcg-vilant 25 mcg inhalat.powder (Trelegy Ellipta) zolpidem 5 mg tablet 5 mg PO QPM #30 tabs 05/29/22 08/05/22 Rx furosemide 20 mg tablet 20 mg PO QAM 90 days #90 tabs 07/02/22 08/05/22 Rx isosorbide mononitrate 30 mg 90 mg PO QAM #270 tabs 08/01/22 08/05/22 Rx tablet,extended release 24 hr Patient History Medical History Acute anterior epistaxis Acute lower gastrointestinal bleeding Acute posterior epistaxis Anemia Anticoagulant long-term use Atrial fibrillation permanent, now s/p PPM (2016) Bradycardia CAD (coronary artery disease) [place] (1992) CHF (congestive heart failure) follows with [facility] (Dr. Marcos) Chronic diastolic CHF (congestive heart failure) Chronic kidney disease, stage 3 follows with nephrology ([facility]/Dr. Richard) Chronic respiratory failure with hypoxia COPD (chronic obstructive pulmonary disease) 2L HS + occasionally PRN, follows with [facility] COPD with asthma COPD with emphysema Deep vein thrombosis B/L LE (1967), Diabetes mellitus, type 2 NIDDM Dysfunction of left eustachian tube Encounter for pre-operative examination Encounter for pre-operative examination GI bleed Hearing deficit History of kidney cancer s/p L nephrectomy (1997) Hyperlipidemia controlled Hypertension controlled Insomnia Insomnia Intractable back pain Leg swelling Mixed conductive and sensorineural hearing loss of left ear with restricted hearing of right ear Osteoarthritis Osteoporosis Pacemaker Implanted 2016, [employer], last check 09/2019 Pulmonary nodule per records Restless leg syndrome Syncope UTI (urinary tract infection) Vitamin D deficiency Surgical History History of cardiac cath 10+ years ago, no stents History of cholecystectomy History of colonoscopy History of hip surgery R/L NABEEL History of myringotomy + Left ear tube removal: 06/09/19: LMA#4 atraumatic at [facility] History of nephrectomy left History of vaginal hysterectomy Hx of bilateral cataract extraction Status post placement of cardiac pacemaker 2016 Family History Brother Hypertension Mother Cardiac disorder Sister Lung cancer Aunt Lung cancer Father Pneumonia Unknown Family history of allergies Environmental allergies Denies family history of Ovarian cancer Prostate cancer Myocardial infarction Breast cancer Colorectal cancer Social History Smoking Status: Former smoker Tobacco Type: Cigarettes Age Started Using Tobacco: 26; Age Quit Using Tobacco: 55; packs per day: 1; Cigarettes Per Day: 20; Second Hand Exposure: No; Do You Dip or Chew Tobacco: No; Hx Alcohol Use: No Hx Substance Use: No Preferred Language: Cymraes Communication Ability: Effective Visual Impairment: No Limitations Hearing Ability: Hard of Hearing Carport Erector Required: No Beliefs That Will Affect Care: None marital status: / Current Living Situation: Alone Current Living Situation Comment: Lives in [facility] [address], 2 bedrooms. current occupational status: retired current occupation: worked at [employer] Other Information That Helps Us Care for You: No Feels Safe at Home: Yes Safety Concerns: Feels Safe At This Time Childhood Exposure to Second-Hand Smoke: No Diet: other Diet Comment: Low sugar/ Sugar free options when possible caffeine: Yes (2 cups of coffee daily ) Dental Care, Regularly: No Physical Activity Frequency: Daily Seatbelt Use: always Sunscreen Use: Yes Assistive Devices: Walker Review of Systems Review of Systems: Review of Systems completed - see Admission History & Physical document. Constitutional: as per Subjective / HPI Eyes: no diplopia, no eye pain and no photophobia Ear, Nose, Mouth, Throat: Multiple Facial Fractures and Skull (cranial) Fractures from the patient's recent fall. History of a LEFT Tympanostomy Tube insertion in past by Dr. Moura. Physical Exam Physical Exam: Patient seen & Examined at bedside. Patient is ambulatory in room to the bathroom. HEAD: Multiple Facial contusions of the soft tissue - RIGHT > Left due to Ground Level Fall. There is a 1.5 - 2 cm Frontal / RIGHT eyebrow Hematoma from the fall - which is resorbing by exam. NOT fluctuant. NO signs of frontal cellulitis. FACIAL BONES: Orbital Rims intact. Zygomatic arches intact. Multiple fractures of the nasal bones - but they do not appear displaced significantly. Maxilla intact - NO motion. Mandible Intact. Constitutional: well developed and well nourished; no acute distress Eyes: PERRL, conjunctivae normal, anicteric sclerae (NO diplopia. NO ocular muscle entrapment.) ENMT: Ears: RIGHT Canal clear. RIGHT tympanic membrane intact. single thread of bleed on the Long process of the malleus. - RIGHT Middle ear CLEAR. NO trauma. LEFT Canal Clear - with presence of a BLUE T-Tube - surrounded by a CRUST of Old skin and Cerumen. - NOT Blood. LEFT Tympanic Membrane is visible. Middle ear appears clear. NOSE: Nasal Dorsum is mid-line. Septum is Mid-line - NO signs of a Septal hematoma Nasal Passages - Congested from recent trauma. - OLD Dissolving blood present at BOTH middle meati - which are emptying the Maxillar Sinuses. Inferior and Middle Turbinates are NORMAL. NO polyps seen. MOUTH: Edentulous. Maxilla and Mandible intact. Tongue NORMAL - No lesions - NO trauma. Palate - soft is DRY. Mucosa Intact - NO trauma. Uvula is MID-Line. - DRY Tonsils are atrophied +1 in size. Voice strong & Clear. Neck: trachea midline, no thyromegaly Respiratory: normal respiratory effort, lungs clear to auscultation Neurologic: NO facial weakness. Results & Data Vital Signs (Past 12 Hours) Vital Signs Temp Pulse Resp BP Pulse Ox O2 Del Method O2 Flow Rate 08/19/22 15:13 36.5 C 60 18 115/55 L 98 Oxymask 3 08/19/22 08:00 Oxymask 2 08/19/22 10:53 36.6 C 57 L 16 157/65 H 98 Oxymask 3 Laboratory Results WBC = 7.3 Hgb = 8.9 Hct = 27.3 Platelets = 193 K Diagnostic Findings Facial Bone CT Scan: ( 05 AUGUST 2022) FINDINGS: Hyperostosis frontalis interna. 4.4 cm right forehead scalp hematoma. Prior bilateral lens repair. Moderate soft tissue swelling surrounding the nose. Acute bilateral nasal bone fractures with mild comminution on the left and slight bilateral displacement/angulation. The zygomatic arches are intact. Subtle acute nondisplaced fractures involve the anterior and posterior cano of the maxillary sinuses. Subtle acute nondisplaced fracture involves the left lateral pterygoid plate. Sigmoidal bowing and angulation the nasal septum with a few nondisplaced acute appearing fractures. Appear intact. Moderate to severe mucosal thickening with secretions within the paranasal sinuses. Right maxillary and sphenoid sinus air-fluid levels. The mandible appears intact. IMPRESSION: 1. Acute bilateral nasal bone fractures with mild comminution and displacement. 2. Acute nondisplaced fractures within the anterior and posterior cano of the maxillary sinuses. 3. Acute mildly angulated fracture of the lateral left pterygoid plate. 4. Acute angulated fractures of the bony nasal septum. 5. Moderate to severe mucosal thickening with secretions noted within the paranasal sinuses. Medications Administered Was given AFRIN spray on admission - none since August 18 Was started on Otic drops on Left ear for "hemotympanum" - but this is really just cerumen plug on a T-Tube / Tympanostomy Tube.
[2022-08-19] MEDS: GABAPENTIN 100 MG CAP PO SCH (20:59)
[2022-08-19] MEDS: SIMVASTATIN 20 MG TAB PO SCH (20:59)
[2022-08-19] MEDS: HYDROmorphone INJ 0.5 MG/0.5 ML SYR IV PRN (22:12)
[2022-08-20 07:37] LABS: Hematocrit (blood only) 25.5 % (37.0-47.0); Hemoglobin 8.1 g/dl (12.0-16.0); Mean Corpuscular Hgb Conc 31.8 g/dL (32.0-36.0); Mean Corpuscular Volume 97.7 fL (80.0-100.0); Mean Platelet Volume 10.4 fL (9.4-12.4); Platelet Count 180 K/uL (130-400); RDW Coefficient of Variation 14.6 % (11.5-14.5); RDW Standard Deviation 50.9 fL (36.4-46.3); Red Blood Count 2.61 M/uL (4.20-5.40); White Blood Count 6.85 K/ul (4.8-10.8)
[2022-08-20 07:54] LABS: BUN Creatinine Ratio 29.6 (10-20); Calcium 8.8 mg/dl (8.6-10.3); Creatinine Clr Calc Pharmacy 36.9 ml/min; Est GFR (African American) 45.7 ml/min; Est GFR (Non-African American) 39.5 ml/min; Potassium 4.4 mmol/L (3.5-5.1)
[2022-08-20] MEDS: ACETAMINOPHEN 500 MG TAB PO PRN ×2 (08:55→20:56)
[2022-08-20] MEDS: FUROSEMIDE 20 MG TAB PO SCH (08:57)
[2022-08-20] MEDS: APIXABAN 5 MG TABLET PO SCH ×2 (08:57→20:59)
[2022-08-20] MEDS: LOSARTAN POTASSIUM 25 MG TAB PO SCH (08:57)
[2022-08-20] MEDS: ISOSORBIDE MONO EXTENDED REL 30 MG TABCR PO SCH (08:57)
[2022-08-20] MEDS: ATENOLOL 50 MG TABLET PO SCH (08:57)
[2022-08-20] MEDS: amLODIPine BESYLATE 5 MG TAB PO SCH (08:57)
[2022-08-20] MEDS: INSULIN ASPART PER UNIT CHARGE SC SCH ×4 (08:58→20:57)
[2022-08-20] MEDS: CIPRO 0.3%/DEXAMETHASONE 0.1% OTIC SUSP 7.5ML OTL SCH (08:58)
[2022-08-20] MEDS: FLUTICASONE FUROATE 100MCG 14 PUFFS/INHALER INH SCH (09:00)
[2022-08-20] MEDS: UMECLIDINIUM/VILANTEROL 62.5/25MCG 7 PUFFS/INHALER INH SCH (09:00)
[2022-08-20] MEDS: SODIUM CHLORIDE 0.65% NA SOLN 45 ML (OCEAN) SCH ×12 (10:05→21:00)
--- NOTE | 2022-08-20 13:59 | Hospitalist Progress Note ---
Date of Service August 20, 2022 Assessment & Plan (1) Multiple facial bone fractures: Plan: Pt is an 82 yo female with PMH of CAD (-1992), permanent A-fib, multiple prior DVTs (on Xarelto), diastolic CHF, tachycardia-bradycardia syndrome (s/p VVI pacer in 2017), DM2, COPD with asthma, hyperlipidemia, hypertension, who presents after a fall and is being admitted to the hospital for further management following multiple facial bone fractures. Facial bone fractures - Face CT: Bilateral nasal bone fractures + mild comminution, displacement; nondisplaced fractures within anterior, posterior maxillary sinus cano; mildly angulated fracture of lateral left pterygoid plate; angulated fracture of bony nasal septum - Head CT negative for intracranial abnormality; facial contusions with right forehead hematoma - oral maxillofacial surgery recommended conservative management and close outpatient followup - finished cefdinir x1 week post injury - Continue pain management (not candidate for NSAIDS) - APAP and prn dilaudid Acute nose bleed with h/o recurrent epistaxis - hx of recurrent epistaxis requiring cauterization as outpatient; exacerbated due to acute injury - ENT consulted and recommended saline nasal spray in each nostril q1hr in addition to mucinex BID x10 days (08/20 first day); d/c afrin and ciprodex otic drops - pt has not had a recurrence of epistaxis today - will continue to monitor hemoglobin Syncope - Last remembers walking toward the trunk of her car before waking up on the pavement - No preceding symptoms, but was not wearing oxygen during event - CT Head upon admission: neg - Ventricular pacer Interrogation: neg - hx of CHF/aortic stenosis: follows w/ Dr. Marcos * Echo showed moderate , [id number], TR (moderate), and elevated RVSP (50- 60 mmHg) * cardio consulted; low suspicion this event was precipitated from , bradycardia, arrhythmia - carotid US showed moderate atherosclerotic plaque without evidence of hemodynamically significant stenosis - likely etiology d/t hypoxia - wasn't wearing oxygen. Atrial fibrillation/history of DVTs - On Xarelto due to extensive history of DVTs and atrial fibrillation - [id number] score of 9 - Xarelto held on admission; initiated low-dose IV heparin without bolus - switched anticoagulation to eliquis 5 mg BID which should be continued COPD with asthma, emphysema Chronic respiratory failure - Continue Trelegy, albuterol inhaler PRN - Patient on 2L NC at home, primarily used at night - pt satting well on RA throughout day Asymptomatic bacteriuria - Patient remains asymptomatic - Patient's urine culture grew riddle-sensitive E. coli - s/p cefdinir for ppx from facial fractures DM2 - Patient takes sitagliptin at home * SSI insulin, per protocol * hemoglobin A1c = 6.0 Hypertension - Continue home amlodipine, losartan, and Imdur Hyperlipidemia - Continue simvastatin Code: Full code (has advanced directive) Dispo: Med-Surg, telemetry * PT/OT: Recommending inpatient rehab, which was denied, attempt for SNF was also denied; however, pt significantly declined physically as she almost had near syncopal event during PT. Will reattempt authorization for SNF/inpatient rehab. 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 Subjective Pt seen this AM. She did have some nose bleeds yesterday, but none overnight or this AM. She states she has a mild headache. She makes note of her PT session yesterday which didn't go well (near syncope). Her feet/lower legs were numb yesterday while laying in bed but she states this is a chronic problem for her. Otherwise, no new concerns. She denies chest pain, SOB, and leg pains. Review of Systems Review of Systems: As per HPI Physical Exam Physical Exam: Constitutional: well appearing, no acute distress HEENT: normocephalic, no conjunctival injection CV: RRR, no murmur, no LE edema Respiratory: CTA bilaterally. No rhonchi, wheezes, or crackles. No increased work of breathing GI: soft, nondistended, nontender, + bowel sounds MSK: no gross deformities noted Skin: warm, dry, purple bruising present on bilateral sides of face extending into neck. Hematoma of right eyebrow ridge present and similar in size to prior exam. Neuro: alert, oriented, no FND noted Psych: mood and affect congruent Results & Data Results & Data Vital Signs (Past 12 Hours) Vital Signs Temp Pulse Pulse Resp BP Pulse Ox O2 Del Method 08/20/22 11:37 61 08/20/22 11:14 36.5 C 60 20 151/67 H 98 Room Air 08/20/22 08:07 36.5 C 60 20 172/69 H 91 Room Air 08/20/22 03:26 36.6 C 62 18 151/64 H 93 Oxymask O2 Flow Rate 08/20/22 11:37 08/20/22 11:14 08/20/22 08:07 08/20/22 03:26 3 Resident Activity Tracking Resident Involvement: Resident Care Provided Care Provided: Adult Hospital Medicine (1) Multiple facial bone fractures Encounter type: initial encounter
[2022-08-20] MEDS: POLYETHYLENE (MIRALAX) 17 GM PACK PO PRN (20:56)
[2022-08-20] MEDS: guaiFENesin 600 MG TABCR PO SCH (20:58)
[2022-08-20] MEDS: MELATONIN 3 MG TAB PO PRN (20:58)
[2022-08-20] MEDS: GABAPENTIN 100 MG CAP PO SCH (20:59)
[2022-08-20] MEDS: SIMVASTATIN 20 MG TAB PO SCH (20:59)
[2022-08-21] MEDS: SODIUM CHLORIDE 0.65% NA SOLN 45 ML (OCEAN) SCH ×15 (00:12→22:17)
--- NOTE | 2022-08-21 07:40 | Hospitalist Progress Note ---
Date of Service August 21, 2022 Assessment & Plan (1) Multiple facial bone fractures: Plan: Pt is an 82 yo female with PMH of CAD (-1992), permanent A-fib, multiple prior DVTs (on Xarelto), diastolic CHF, tachycardia-bradycardia syndrome (s/p VVI pacer in 2017), DM2, COPD with asthma, hyperlipidemia, hypertension, who presents after a fall and is being admitted to the hospital for further management following multiple facial bone fractures. Facial bone fractures - Face CT: Bilateral nasal bone fractures + mild comminution, displacement; nondisplaced fractures within anterior, posterior maxillary sinus cano; mildly angulated fracture of lateral left pterygoid plate; angulated fracture of bony nasal septum - Head CT negative for intracranial abnormality; facial contusions with right forehead hematoma - oral maxillofacial surgery recommended conservative management and close outpatient followup - finished cefdinir x1 week post injury - Continue pain management (not candidate for NSAIDS); tylenol PRN Acute nose bleed with h/o recurrent epistaxis - hx of recurrent epistaxis requiring cauterization as outpatient; exacerbated due to acute injury - ENT consulted and recommended saline nasal spray in each nostril q1hr in addition to mucinex BID x10 days (08/20 first day); d/c afrin and ciprodex otic drops - no further epistaxis Syncope - Last remembers walking toward the trunk of her car before waking up on the pavement - No preceding symptoms, but was not wearing oxygen during event - CT Head upon admission: neg - Ventricular pacer Interrogation: neg - hx of CHF/aortic stenosis: follows w/ Dr. Marcos * Echo showed moderate , [id number], TR (moderate), and elevated RVSP (50- 60 mmHg) * cardio consulted; low suspicion this event was precipitated from , bradycardia, arrhythmia - carotid US showed moderate atherosclerotic plaque without evidence of hemodynamically significant stenosis - likely etiology d/t hypoxia; was not wearing oxygen at time of fall Atrial fibrillation/history of DVTs - previously on Xarelto due to extensive history of DVTs and atrial fibrillation - CHADS-VASc score of 9 - Xarelto held on admission; initiated low-dose IV heparin without bolus - switched anticoagulation to eliquis 5 mg BID which should be continued upon d/c COPD with asthma, emphysema Chronic respiratory failure - Continue Trelegy, albuterol inhaler PRN - Patient on 2L NC at home, primarily used at night - pt has required up to 3L NC/oxymask during this hospitalization - continue oxygen PRN Asymptomatic bacteriuria - Patient remains asymptomatic - Patient's urine culture grew riddle-sensitive E. coli - s/p cefdinir for ppx from facial fractures DM2 - SSI insulin; hold home sitagliptin - A1c = 6.0 Hypertension - Continue home amlodipine, losartan, and Imdur Hyperlipidemia - Continue simvastatin Code: Full code (has advanced directive) Dispo: med/surg, telemetry * PT/OT: Recommended inpatient rehab, which was denied, attempt for SNF which was also denied; however, pt significantly declined physically as she almost had near syncopal event during PT this week; Will reattempt authorization for SNF/inpatient rehab. FEN/GI: Carb consistent, minced and moist DVT Prophylaxis: Eliquis 5 mg BID Consults: Oral maxillofacial surgery, case management, ENT (2) Syncope: (3) Fall: (4) Tachycardia-bradycardia syndrome: (5) shelter (current) use of anticoagulants: (6) Type 2 diabetes mellitus: (7) Congestive heart failure: (8) COPD with asthma: Admission and Anticipated Discharge Date Admission Date: August 05, 2022 Supervising Physician Co-Signing Physician Notes Resident Physician Supervision Note: I independently interviewed and examined the patient and verified the gamez history and physical, reviewed labs and image studies and agree with resident findings and care plan. Subjective Pt seen at bedside. Overall doing well. No more nose bleeds. Pt states her PT session yesterday was much better. She states her legs were swollen yesterday because she hasn't been able to elevate them. She denies SOB (other than her baseline), chest pain, leg pains. Review of Systems Review of Systems: As per HPI Physical Exam Physical Exam: Constitutional: well appearing, no acute distress HEENT: normocephalic, no conjunctival injection CV: RRR, no murmur, 1+ bilateral pitting edema Respiratory: CTA bilaterally. No rhonchi, wheezes, or crackles. No increased work of breathing MSK: no gross deformities noted Skin: warm, dry, bilateral facial bruising present extending to neck Neuro: alert, oriented, no FND noted Psych: mood and affect congruent Results & Data Results & Data Vital Signs (Past 12 Hours) Vital Signs Temp Pulse Pulse Resp BP Pulse Ox O2 Del Method 08/21/22 07:35 61 08/21/22 03:44 36.3 C L 62 18 155/72 H 99 Room Air, Oxymask 08/21/22 00:00 63 08/21/22 00:11 36.5 C 60 18 151/65 H 95 Oxymask 08/20/22 21:00 Oxymask O2 Flow Rate 08/21/22 07:35 08/21/22 03:44 2 08/21/22 00:00 08/21/22 00:11 2 08/20/22 21:00 3 Resident Activity Tracking Resident Involvement: Resident Care Provided Care Provided: Adult Hospital Medicine (1) Multiple facial bone fractures Encounter type: initial encounter
[2022-08-21 07:47] LABS: Hematocrit (blood only) 26.3 % (37.0-47.0); Hemoglobin 8.4 g/dl (12.0-16.0); Mean Corpuscular Hemoglobin 30.9 pg (25.0-34.0); Mean Corpuscular Hgb Conc 31.9 g/dL (32.0-36.0); Mean Corpuscular Volume 96.7 fL (80.0-100.0); Mean Platelet Volume 10.5 fL (9.4-12.4); Platelet Count 178 K/uL (130-400); RDW Coefficient of Variation 14.6 % (11.5-14.5); Red Blood Count 2.72 M/uL (4.20-5.40); White Blood Count 6.29 K/ul (4.8-10.8)
[2022-08-21 08:01] LABS: BUN Creatinine Ratio 33.6 (10-20); Creatinine Clr Calc Pharmacy 38.7 ml/min; Est GFR (African American) 48.5 ml/min; Est GFR (Non-African American) 41.9 ml/min; Potassium 4.5 mmol/L (3.5-5.1)
[2022-08-21] MEDS: FUROSEMIDE 20 MG TAB PO SCH (08:37)
[2022-08-21] MEDS: ATENOLOL 50 MG TABLET PO SCH (08:37)
[2022-08-21] MEDS: LOSARTAN POTASSIUM 25 MG TAB PO SCH (08:37)
[2022-08-21] MEDS: ISOSORBIDE MONO EXTENDED REL 30 MG TABCR PO SCH (08:37)
[2022-08-21] MEDS: APIXABAN 5 MG TABLET PO SCH ×2 (08:37→20:48)
[2022-08-21] MEDS: guaiFENesin 600 MG TABCR PO SCH ×2 (08:37→20:48)
[2022-08-21] MEDS: amLODIPine BESYLATE 5 MG TAB PO SCH (08:37)
[2022-08-21] MEDS: UMECLIDINIUM/VILANTEROL 62.5/25MCG 7 PUFFS/INHALER INH SCH (08:38)
[2022-08-21] MEDS: FLUTICASONE FUROATE 100MCG 14 PUFFS/INHALER INH SCH (08:38)
[2022-08-21] MEDS: INSULIN ASPART PER UNIT CHARGE SC SCH ×4 (08:49→20:47)
[2022-08-21] MEDS: ACETAMINOPHEN 500 MG TAB PO PRN ×2 (08:56→20:55)
[2022-08-21] MEDS: GABAPENTIN 100 MG CAP PO SCH (20:48)
[2022-08-21] MEDS: SIMVASTATIN 20 MG TAB PO SCH (20:49)
[2022-08-21] MEDS: MELATONIN 3 MG TAB PO PRN (20:54)
[2022-08-22] MEDS: SODIUM CHLORIDE 0.65% NA SOLN 45 ML (OCEAN) SCH ×17 (05:18→23:03)
--- NOTE | 2022-08-22 07:37 | Hospitalist Progress Note ---
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 Facial bone fractures - Face CT: Bilateral nasal bone fractures + mild comminution, displacement; nondisplaced fractures within anterior, posterior maxillary sinus cano; mildly angulated fracture of lateral left pterygoid plate; angulated fracture of bony nasal septum - Head CT negative for intracranial abnormality; facial contusions with right forehead hematoma - oral maxillofacial surgery recommended conservative management and close outpatient followup - finished cefdinir x1 week post injury Acute nose bleed with h/o recurrent epistaxis - hx of recurrent epistaxis requiring cauterization as outpatient; exacerbated due to acute injury - ENT consulted and recommended saline nasal spray in each nostril q1hr in addition to mucinex BID x10 days (08/20 first day); d/c afrin and ciprodex otic drops - no further epistaxis Syncope - Last remembers walking toward the trunk of her car before waking up on the pavement - No preceding symptoms, but was not wearing oxygen during event - CT Head upon admission: neg - Ventricular pacer Interrogation: neg - hx of CHF/aortic stenosis/TR/Pul HTN: follows w/ Dr. Marcos * cardio consulted; low suspicion this event was precipitated from , bradycardia, arrhythmia - carotid US without evidence of hemodynamically significant stenosis - likely etiology d/t hypoxia; was not wearing oxygen at time of fall; upon d/c, may have higher oxygen requirement at new baseline Atrial fibrillation/history of DVTs - previously on Xarelto due to extensive history of DVTs and atrial fibrillation - CHADS-VASc score of 9 - Xarelto held on admission; initiated low-dose IV heparin without bolus - switched anticoagulation to eliquis 5 mg BID which should be continued upon d/c COPD with asthma, emphysema Chronic respiratory failure - Continue Trelegy, albuterol inhaler PRN - Patient on 2L NC at home, primarily used at night - pt has required up to 6L NC/oxymask during this hospitalization - continue oxygen PRN Asymptomatic bacteriuria - Patient remains asymptomatic - Patient's urine culture grew riddle-sensitive E. coli - s/p cefdinir for ppx from facial fractures DM2 - SSI insulin; hold home sitagliptin - A1c = 6.0 Hypertension - Continue home amlodipine, losartan, and Imdur Hyperlipidemia - Continue simvastatin Code: Full code (has advanced directive) Dispo: med/surg, telemetry * PT/OT: Recommended inpatient rehab, which was denied, attempt for SNF which was also denied. Reattempted authorization for SNF/inpatient rehab which was again denied. Family chose to appeal. If the appeal is denied, pt will go home with home health and wheelchair to aid with mobility. A cane/walker is not sufficient in her situation due to recent, acute deconditioning from her lengthy hospital stay which extremely increases her risk for repeat falls which would be catastrophic in her case considering her severe facial injuries from her previous fall. 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 Subjective Pt seen this AM. Doing well overall. She states PT went well yesterday. She has been able to elevate her legs that has helped her swelling. She notes that she had trouble breathing this AM but is now back at her normal oxygen requirement. She asks about the status of getting a wheelchair for home for her as she is concerned with getting into/out of her apartment and around her apartment in light of her recent physical decline. Review of Systems Review of Systems: As per HPI Physical Exam Physical Exam: Constitutional: well appearing, no acute distress HEENT: normocephalic, no conjunctival injection CV: RRR, no murmur, 1+ bilateral pitting edema (L>R) Respiratory: CTA bilaterally. No rhonchi, wheezes, or crackles. No increased work of breathing MSK: no gross deformities noted Skin: warm, dry, gradual improvement in bilateral facial bruising extending to neck Neuro: alert, oriented, no FND noted Psych: mood and affect congruent Results & Data Results & Data Vital Signs (Past 12 Hours) Vital Signs Temp Pulse Pulse Resp BP Pulse Ox O2 Del Method 08/22/22 04:00 36.5 C 60 18 154/63 H 93 Nasal Cannula 08/21/22 22:08 65 08/21/22 23:20 36.5 C 61 18 150/63 H 95 Nasal Cannula 08/21/22 20:00 Nasal Cannula O2 Flow Rate 08/22/22 04:00 2 08/21/22 22:08 08/21/22 23:20 2 08/21/22 20:00 2 Resident Activity Tracking Resident Involvement: Resident Care Provided Care Provided: Adult Hospital Medicine (1) Multiple facial bone fractures Encounter type: initial encounter
[2022-08-22] MEDS: UMECLIDINIUM/VILANTEROL 62.5/25MCG 7 PUFFS/INHALER INH SCH (07:56)
[2022-08-22] MEDS: FLUTICASONE FUROATE 100MCG 14 PUFFS/INHALER INH SCH (07:56)
[2022-08-22] MEDS: APIXABAN 5 MG TABLET PO SCH ×2 (07:56→21:33)
[2022-08-22] MEDS: LOSARTAN POTASSIUM 25 MG TAB PO SCH (07:56)
[2022-08-22] MEDS: guaiFENesin 600 MG TABCR PO SCH ×2 (07:56→21:33)
[2022-08-22] MEDS: amLODIPine BESYLATE 5 MG TAB PO SCH (07:57)
[2022-08-22] MEDS: ATENOLOL 50 MG TABLET PO SCH (07:57)
[2022-08-22] MEDS: ISOSORBIDE MONO EXTENDED REL 30 MG TABCR PO SCH (07:57)
[2022-08-22] MEDS: FUROSEMIDE 20 MG TAB PO SCH (07:57)
[2022-08-22] MEDS: INSULIN ASPART PER UNIT CHARGE SC SCH ×4 (08:10→21:34)
[2022-08-22 08:15] LABS: Hematocrit (blood only) 28.7 % (37.0-47.0); Hemoglobin 9.4 g/dl (12.0-16.0); Mean Corpuscular Hgb Conc 32.8 g/dL (32.0-36.0); Mean Corpuscular Volume 97.6 fL (80.0-100.0); Mean Platelet Volume 10.6 fL (9.4-12.4); Platelet Count 206 K/uL (130-400); RDW Coefficient of Variation 14.7 % (11.5-14.5); RDW Standard Deviation 52.4 fL (36.4-46.3); Red Blood Count 2.94 M/uL (4.20-5.40); White Blood Count 6.53 K/ul (4.8-10.8)
[2022-08-22 08:44] LABS: BUN Creatinine Ratio 30.4 (10-20); Calcium 9.3 mg/dl (8.6-10.3); Est GFR (African American) 52.2 ml/min; Est GFR (Non-African American) 45.1 ml/min; Potassium 4.8 mmol/L (3.5-5.1)
--- NOTE | 2022-08-22 09:08 | XRay Report ---
XR chest 1V portable CLINICAL HISTORY: Hypoxia. COMPARISON STUDY: Chest radiograph August 08, 2022. FINDINGS: Left subclavian pacer is in place. Cardiomegaly is unchanged. There is no pneumothorax. Sma ll to moderate left and small right pleural effusions are unchanged. There are associated bibasilar o pacities. Pulmonary edema persists. There are old right rib fractures. IMPRESSION: Persistent pulmonary edema with small to moderate left and small right pleural effusions with associated bibasilar opacities. ACT 112: Negative or not required by law. Electronically signed by: Jorgito Oseguera M.D. 08/22/2022 9:06 AM
[2022-08-22] MEDS ORDERED: FUROSEMIDE 40 MG/4 ML VIAL IV ONE (11:09)
[2022-08-22] MEDS ORDERED: ZOLPIDEM TARTRATE 5 MG TAB PO PRN (19:46)
[2022-08-22] MEDS: GABAPENTIN 100 MG CAP PO SCH (21:33)
[2022-08-22] MEDS: SIMVASTATIN 20 MG TAB PO SCH (22:58)
[2022-08-23 07:23] LABS: Hematocrit (blood only) 27.3 % (37.0-47.0); Hemoglobin 8.7 g/dl (12.0-16.0); Mean Corpuscular Hemoglobin 30.7 pg (25.0-34.0); Mean Corpuscular Hgb Conc 31.9 g/dL (32.0-36.0); Mean Corpuscular Volume 96.5 fL (80.0-100.0); Mean Platelet Volume 10.5 fL (9.4-12.4); Platelet Count 198 K/uL (130-400); RDW Coefficient of Variation 14.6 % (11.5-14.5); RDW Standard Deviation 50.8 fL (36.4-46.3); Red Blood Count 2.83 M/uL (4.20-5.40)
[2022-08-23] MEDS: SODIUM CHLORIDE 0.65% NA SOLN 45 ML (OCEAN) SCH ×8 (07:23→15:19)
[2022-08-23 07:33] LABS: BUN Creatinine Ratio 27.6 (10-20); Calcium 9.1 mg/dl (8.6-10.3); Creatinine Clr Calc Pharmacy 39.7 ml/min; Est GFR (African American) 50.1 ml/min; Est GFR (Non-African American) 43.2 ml/min; Magnesium 1.9 mg/dl (1.7-2.4); Potassium 4.1 mmol/L (3.5-5.1)
[2022-08-23] MEDS: INSULIN ASPART PER UNIT CHARGE SC SCH ×2 (08:49→12:04)
[2022-08-23] MEDS: FLUTICASONE FUROATE 100MCG 14 PUFFS/INHALER INH SCH (08:51)
[2022-08-23] MEDS: UMECLIDINIUM/VILANTEROL 62.5/25MCG 7 PUFFS/INHALER INH SCH (08:51)
[2022-08-23] MEDS: APIXABAN 5 MG TABLET PO SCH (08:52)
[2022-08-23] MEDS: FUROSEMIDE 20 MG TAB PO SCH (08:52)
[2022-08-23] MEDS: ISOSORBIDE MONO EXTENDED REL 30 MG TABCR PO SCH (08:52)
[2022-08-23] MEDS: LOSARTAN POTASSIUM 25 MG TAB PO SCH (08:52)
[2022-08-23] MEDS: ATENOLOL 50 MG TABLET PO SCH (08:52)
[2022-08-23] MEDS: amLODIPine BESYLATE 5 MG TAB PO SCH (08:52)
[2022-08-23] MEDS: guaiFENesin 600 MG TABCR PO SCH (08:53)
[2022-08-23] MEDS ORDERED: FUROSEMIDE 40 MG/4 ML VIAL IV ONE (09:37)
--- NOTE | 2022-08-23 11:54 | Hospitalist Progress Note ---
Date of Service August 23, 2022 Assessment & Plan (1) Multiple facial bone fractures: Plan: Pt is an 82 yo female with PMH of CAD (-1992), permanent A-fib, multiple prior DVTs (on Xarelto), diastolic CHF, tachycardia-bradycardia syndrome (s/p VVI pacer in 2017), DM2, COPD with asthma, hyperlipidemia, hypertension, who presents after a fall and is being admitted to the hospital for further management following multiple facial bone fractures. Facial bone fractures - Face CT: Bilateral nasal bone fractures + mild comminution, displacement; nondisplaced fractures within anterior, posterior maxillary sinus cano; mildly angulated fracture of lateral left pterygoid plate; angulated fracture of bony nasal septum - Head CT negative for intracranial abnormality; facial contusions with right forehead hematoma - oral maxillofacial surgery recommended conservative management and close outpatient followup - finished cefdinir x1 week post injury Acute on chronic heart failure with preserved ejection fraction - echo 08/06 showed normal LV systolic function, dilation of bilateral atria, moderate , moderate MR, and moderate TR. Right ventricular systolic pressure elevated at 50-60mmHg - over the past few days, pt has had episodes of increased oxygen requirement (up to 6L) - pt's weight stable but there is increased swelling in bilateral LE - repeat CXR 08/22 showed no significant change from 08/08 but persistence of pulmonary edema w/ small bilateral effusions - continue home lasix dose of 20 mg daily; 40 mg IV lasix given 08/22 w/ appropriate diuresis - additional 40 mg IV lasix given today, f/u electrolytes this afternoon Acute nose bleed with h/o recurrent epistaxis - hx of recurrent epistaxis requiring cauterization as outpatient; exacerbated due to acute injury - ENT consulted and recommended saline nasal spray in each nostril q1hr in addition to mucinex BID x10 days (08/20 first day); d/c afrin and ciprodex otic drops - no further epistaxis Syncope - Last remembers walking toward the trunk of her car before waking up on the pavement - No preceding symptoms, but was not wearing oxygen during event - CT Head upon admission: neg - Ventricular pacer Interrogation: neg - hx of CHF/aortic stenosis/TR/Pul HTN: follows w/ Dr. Marcos * cardio consulted; low suspicion this event was precipitated from , bradycardia, arrhythmia - carotid US without evidence of hemodynamically significant stenosis - likely etiology d/t hypoxia; was not wearing oxygen at time of fall; upon d/c, may have higher oxygen requirement at new baseline - pt did have an unexplained, asymptomatic 15 beat run of ventricular tachycardia during this admission; although this was asymptomatic, raises the concern for the possibility that pt had an arrhythmic episode that cause her syncope and subsequent fall - consider event monitor/holter monitor outpatient for further evaluation Atrial fibrillation/history of DVTs - previously on Xarelto due to extensive history of DVTs and atrial fibrillation - CHADS-VASc score of 9 - Xarelto held on admission; initiated low-dose IV heparin without bolus - switched anticoagulation to eliquis 5 mg BID which should be continued upon d/c COPD with asthma, emphysema Chronic respiratory failure - Continue Trelegy, albuterol inhaler PRN - Patient on 2L NC at home, primarily used at night - pt has required up to 6L NC/oxymask during this hospitalization - continue oxygen PRN Asymptomatic bacteriuria - Patient remains asymptomatic - Patient's urine culture grew riddle-sensitive E. coli - s/p cefdinir for ppx from facial fractures DM2 - SSI insulin; hold home sitagliptin - A1c = 6.0 Hypertension - Continue home amlodipine, losartan, and Imdur Hyperlipidemia - Continue simvastatin Code: Full code (has advanced directive) Dispo: med/surg, telemetry * PT/OT: Recommended inpatient rehab, which was denied, attempt for SNF which was also denied. Reattempted authorization for SNF/inpatient rehab which was again denied. Family chose to appeal. At this point, pt and family would like her to go home with home health. Patient needs a wheelchair to perform mobility related activities if daily living inside the home including dressing, toileting, etc. A cane or walker will not sufficiently resolve mobility limitation. Patient has a caregiver willing and able to assist with maneuvering. FEN/GI: Carb consistent, minced and moist DVT Prophylaxis: Eliquis 5 mg BID Consults: Oral maxillofacial surgery, case management, ENT (2) Syncope: (3) Fall: (4) Tachycardia-bradycardia syndrome: (5) [facility] (current) use of anticoagulants: (6) Type 2 diabetes mellitus: (7) Congestive heart failure: (8) COPD with asthma: (9) Physical deconditioning: Admission and Anticipated Discharge Date Admission Date: August 05, 2022 Subjective Pt seen this AM. She notes difficulty breathing again this AM. This commonly occurs when she wakes up after the morning and that is why she tends to sit a lot throughout the day rather than laying. Review of Systems Review of Systems: As per HPI Physical Exam Physical Exam: Constitutional: well appearing, no acute distress HEENT: normocephalic, no conjunctival injection CV: RRR, no murmur, 2+ bilateral pitting edema (R>L) Respiratory: No change in lung exam. CTA bilaterally. No rhonchi, wheezes, or crackles. No increased work of breathing MSK: no gross deformities noted Skin: warm, dry, continued improvement in bilateral facial bruising extending to neck Neuro: alert, oriented, no FND noted Psych: mood and affect congruent Results & Data Results & Data Vital Signs (Past 12 Hours) Vital Signs Temp Pulse Pulse Resp BP Pulse Ox O2 Del Method 08/23/22 07:30 62 08/23/22 07:50 Nasal Cannula 08/23/22 07:30 36.7 C 60 18 180/61 H 95 Nasal Cannula 08/23/22 03:00 36.5 C 62 18 161/68 H 92 Nasal Cannula O2 Flow Rate 08/23/22 07:30 08/23/22 07:50 3 08/23/22 07:30 3 08/23/22 03:00 3 Resident Activity Tracking Resident Involvement: Resident Care Provided Care Provided: Adult Hospital Medicine (1) Multiple facial bone fractures Encounter type: initial encounter
[2022-08-23 13:44] LABS: Calcium 9.2 mg/dl (8.6-10.3); Creatinine Clr Calc Pharmacy 40.1 ml/min; Est GFR (African American) 50.6 ml/min; Est GFR (Non-African American) 43.7 ml/min; Potassium 4.2 mmol/L (3.5-5.1)
--- NOTE | 2022-08-23 15:21 | Discharge Summary ---
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 In the ED, vitals were normal save for slightly elevated BP. CBC revealed normal hemoglobin. Creatinine was elevated at 1.52, which is not far from her baseline. Troponin was slightly elevated at 15.3. CT of the face revealed bilateral nasal bone fractures with mild comminution and displacement, nondisplaced maxillary sinus fractures within the anterior and posterior cano, a "mildly angulated fracture of the lateral left pterygoid plate," and angulated fracture of the bony nasal septum. Head CT and cervical spine CT were negative, as were x-rays of the hand, knee, hip/pelvis. She received IV Tylenol and morphine for pain, and was started on maintenance rate fluids. On admission, she reports she is still unsure what happened. She reports she had just returned home from her son's place, and was walking to the trunk of her car, that was the last thing she remembered. When she awoke she was on the g round and "was hemorrhaging like crazy." She called 911 herself and was brought to the emergency room. She continues to report headache, photosensitivity, and right-sided ocular pressure from the hematoma. Otherwise, she denies vision changes, extraocular movement restriction, jaw pain chest pain, shortness of breath, lightheadedness, or vertigo. This has never happened to her before. Admission Exam Per Admitting Provider General: No acute distress HEENT: Large forehead hematoma above right eye. Bilateral infraorbital hematoma and bruising. Bruised, swollen jawline on the left. Nasal septal exam obstructed by clotted blood. No Burgos's sign. No raccoon eyes. Clotted blood seen in posterior oropharynx. Normal pupillary light reflex. EOM intact. Respiratory: Normal respiratory effort, CTABL. No chest wall bruising. Cardiovascular: RRR. Systolic ejection murmur heard loudest at LUSB. No gallops, or rubs. No pedal edema. GI: Soft abdomen without bruising, and with normal bowel sounds on auscultation. Nontender x4 quadrants Neuro: Alert and oriented x3. Principal Diagnosis multiple facial fractures s/p fall Discharge Exam Constitutional: well appearing, no acute distress HEENT: normocephalic, no conjunctival injection CV: regular rhythm, no murmur, 2+ bilateral pitting edema (R>L) Respiratory: No change in lung exam. Clear to auscultation bilaterally. No rhonchi, wheezes, or crackles. No increased work of breathing MSK: no gross deformities noted Skin: warm, dry, continued improvement in bilateral facial bruising extending to neck Neuro: alert, oriented, no FND noted Psych: mood and affect congruent Discharge Data Allergies Allergy/AdvReac Type Severity Reaction Status Date / Time chlorthalidone Allergy Severe Swelling Verified 08/05/22 20:54 of Lip/Tongue/Throat Penicillins Allergy Severe Swelling Verified 08/05/22 20:54 of Lip/Tongue/Throat MANDEEP Inhibitors Allergy Unknown Unknown Verified 08/05/22 20:54 trazodone Allergy Unknown Unknown Verified 08/05/22 20:54 Consultations 08/05/22 21:12 ED Decision to Admit Stat 08/06/22 00:27 Consult Oromaxillofacial Surgery Routine 08/06/22 18:34 Consult Cardiology Routine 08/18/22 21:18 Consult Otolaryngology (Head and Neck) Routine Ordered Studies 08/05/22 17:35 CT cervical spine wo con Stat IMPRESSION: 1. No acute cervical spine fracture or subluxation identified. 2. Mucosal thickening of the paranasal sinuses with partially imaged acute facial bone fractures. Please refer to the CT maxillofacial study of same day for additional details. CT facial bones wo con Stat IMPRESSION: 1. Acute bilateral nasal bone fractures with mild comminution and displacement. 2. Acute nondisplaced fractures within the anterior and posterior cano of the maxillary sinuses. 3. Acute mildly angulated fracture of the lateral left pterygoid plate. 4. Acute angulated fractures of the bony nasal septum. 5. Moderate to severe mucosal thickening with secretions noted within the paranasal sinuses. CT head/brain wo con Stat IMPRESSION: 1. No acute intracranial abnormality or calvarial fracture. 2. Facial contusions with right forehead hematoma. 3. Please refer to the CT maxillofacial study of same day for discussion of the acute facial bone fractures. 08/06/22 US carotid doppler BI Routine IMPRESSION: Moderate atherosclerotic plaque plaque without sonographic evidence for a hemodynamically significant stenosis. 08/13/22 09:45 CT head/brain wo con Urgent Impression: Redemonstration of soft tissue swelling in the right frontal region. No hemorrhage or calvarial fracture is seen. Nasal and maxillary sinus wall fractures are better seen on recent CT maxillofacial. Hospital Course (1) Multiple facial bone fractures: Pt is an 82 yo female with PMH of CAD (ND-1992), permanent A-fib, multiple prior DVTs (on Xarelto), diastolic CHF, tachycardia-bradycardia syndrome (s/p VVI pacer in 2017), DM2, COPD with asthma, hyperlipidemia, hypertension, who presents after a fall and admitted to the hospital for further management following multiple facial bone fractures. Facial bone fractures - Face CT: Bilateral nasal bone fractures + mild comminution, displacement; nondisplaced fractures within anterior, posterior maxillary sinus cano; mildly angulated fracture of lateral left pterygoid plate; angulated fracture of bony nasal septum - Head CT negative for intracranial abnormality; facial contusions with right forehead hematoma - oral maxillofacial surgery recommended conservative management and close outpatient followup - finished cefdinir x1 week post injury Acute on chronic heart failure with preserved ejection fraction - echo 08/06 showed normal LV systolic function, dilation of bilateral atria, moderate , moderate MR, and moderate TR. Right ventricular systolic pressure elevated at 50-60mmHg - over the past few days, pt has had episodes of increased oxygen requirement (up to 6L) - pt's weight stable but there is increased swelling in bilateral LE - repeat CXR 08/22 showed no significant change from 08/08 but persistence of pulmonary edema w/ small bilateral effusions - 40 mg IV lasix given 08/22 w/ appropriate diuresis; additional 40 mg IV lasix given today, f/u electrolytes in afternoon WNL - continue home lasix dose of 20 mg daily; Acute nose bleed with h/o recurrent epistaxis - hx of recurrent epistaxis requiring cauterization as outpatient; exacerbated due to acute injury - ENT consulted and recommended saline nasal spray in each nostril q1hr in addition to mucinex BID x10 days (08/20 first day); d/c afrin and ciprodex otic drops - no further epistaxis - f/u with ENT outpatient Syncope - Last remembers walking toward the trunk of her car before waking up on the pavement - No preceding symptoms, but was not wearing oxygen during event - CT Head upon admission: neg - Ventricular pacer Interrogation: neg - hx of CHF/aortic stenosis/TR/Pul HTN: follows w/ Dr. Marcos * cardio consulted; low suspicion this event was precipitated from , bradycardia, arrhythmia- carotid US without evidence of hemodynamically significant stenosis - likely etiology d/t hypoxia; was not wearing oxygen at time of fall; upon d/c, may have higher oxygen requirement at new baseline - pt did have an unexplained, asymptomatic 15 beat run of ventricular tachycardia during this admission; although this was asymptomatic, raises the concern for the possibility that pt had an arrhythmic episode that cause her syncope and subsequent fall; discussed this with cardiology and they did not recommend any further testing prior to d/c - consider event monitor/holter monitor outpatient for further evaluation - f/u with cardio (pt follows every [address] Marcos) Atrial fibrillation/history of DVTs - previously on Xarelto due to extensive history of DVTs and atrial fibrillation - CHADS-VASc score of 9 - Xarelto held on admission; initiated low-dose IV heparin without bolus - switched anticoagulation to eliquis 5 mg BID which is to be continued upon d/c COPD with asthma, emphysema Chronic respiratory failure - Continue Trelegy, albuterol inhaler PRN - Patient on 2L NC at home, primarily used at night - pt has required up to 6L NC/oxymask during this hospitalization - continue oxygen PRN Asymptomatic bacteriuria - Patient remains asymptomatic - Patient's urine culture grew riddle-sensitive E. 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: (6) Type 2 diabetes mellitus: (7) Congestive heart failure: (8) COPD with asthma: (9) Physical deconditioning: Total Time Total Time Spent Total Time Spent (In Minutes): as per attending attestation Discharge Plan Discharge Items Patient Disposition: Transfer Custodial Fac Reason For Visit: FALL Discharge Diagnosis: multiple facial fractures after fall Activity: Per Instructions section Non-emergency contact: Primary Care Provider Call non-emergency contact if: you have any medication questions, your symptoms worsen and your pain is not controlled Follow-up/Referrals: Kirill Marcos MD [Physician] - (f/u per pt's usual schedule (q3 mths)) Dagoberto Headley MD [Primary Care Provider] - Lawson Humphrey DMD [Physician] - (f/u multiple facial fractures) Gumaro Vega MD [Surgeon] - (f/u acute exacerbation (d/t multiple facial fractures) of chronic issues with epistaxis) Diet: Carb Consistent or DM2 Diet Texture: Easy to Chew Addtl Attending Provider Instructions: Pt is an 82 yo female with PMH of CAD (-1992), permanent A-fib, multiple prior DVTs (on Xarelto), diastolic CHF, tachycardia-bradycardia syndrome (s/p VVI pacer in 2017), DM2, COPD with asthma, hyperlipidemia, hypertension, who presents after a fall and admitted to the hospital for further management following multiple facial bone fractures. Facial bone fractures - Face CT: Bilateral nasal bone fractures + mild comminution, displacement; nondisplaced fractures within anterior, posterior maxillary sinus cano; mildly angulated fracture of lateral left pterygoid plate; angulated fracture of bony nasal septum - Head CT negative for intracranial abnormality; facial contusions with right forehead hematoma - oral maxillofacial surgery recommended conservative management and close outpatient followup - finished cefdinir x1 week post injury Acute on chronic heart failure with preserved ejection fraction - echo 08/06 showed normal LV systolic function, dilation of bilateral atria, moderate , moderate MR, and moderate TR. Right ventricular systolic pressure elevated at 50-60mmHg - over the past few days, pt has had episodes of increased oxygen requirement (up to 6L) - pt's weight stable but there is increased swelling in bilateral LE - repeat CXR 08/22 showed no significant change from 08/08 but persistence of pulmonary edema w/ small bilateral effusions - 40 mg IV lasix given 05/04 w/ appropriate diuresis; additional 40 mg IV lasix given today, f/u electrolytes in afternoon WNL - continue home lasix dose of 20 mg daily; may consider increase if oxygen requirement increases/edema progresses Acute nose bleed with h/o recurrent epistaxis - hx of recurrent epistaxis requiring cauterization as outpatient; exacerbated due to acute injury - ENT consulted and recommended saline nasal spray in each nostril q1hr in addition to mucinex BID x10 days (08/20 first day); d/c afrin and ciprodex otic drops - no further epistaxis - f/u with ENT outpatient Syncope - Last remembers walking toward the trunk of her car before waking up on the pavement - No preceding symptoms, but was not wearing oxygen during event - CT Head upon admission: neg - Ventricular pacer Interrogation: neg - hx of CHF/aortic stenosis/TR/Pul HTN: follows w/ Dr. Marcos * cardio consulted; low suspicion this event was precipitated from , bradycardia, arrhythmia- carotid US without evidence of hemodynamically significant stenosis - likely etiology d/t hypoxia; was not wearing oxygen at time of fall; upon d/c, may have higher oxygen requirement at new baseline - pt did have an unexplained, asymptomatic 15 beat run of ventricular tachycardia during this admission; although this was asymptomatic, raises the concern for the possibility that pt had an arrhythmic episode that cause her syncope and subsequent fall; discussed this with cardiology and they did not recommend any further testing prior to d/c - consider event monitor/holter monitor outpatient for further evaluation - f/u with cardio (pt follows every [address] Marcos) Atrial fibrillation/history of DVTs - previously on Xarelto due to extensive history of DVTs and atrial fibrillation - CHADS-VASc score of 9 - Xarelto held on admission; initiated low-dose IV heparin without bolus - switched anticoagulation to eliquis 5 mg BID which should be continued upon d/c COPD with asthma, emphysema Chronic respiratory failure - Continue Trelegy, albuterol inhaler PRN - Patient on 2L NC at home, primarily used at night - pt has required up to 6L NC/oxymask during this hospitalization - continue oxygen PRN Asymptomatic bacteriuria - Patient remains asymptomatic - Patient's urine culture grew riddle-sensitive E. coli - s/p cefdinir for ppx from facial fractures DM2 - SSI insulin while hospitalized; may resume home sitagliptin - A1c = 6.0 Hypertension- Continue home amlodipine, losartan, and Imdur Hyperlipidemia- Continue simvastatin Code:Full code (has advanced directive) Dispo:med/surg, telemetry * PT/OT: Recommended inpatient rehab, which was denied, attempt for SNF which was also denied. Reattempted authorization for SNF/inpatient rehab which was again denied. Family chose to appeal and the appeal was approved. Patient needs a wheelchair to perform mobility related activities if daily living inside the home including dressing, toileting, etc. A cane or walker will not sufficiently resolve mobility limitation. Patient has a caregiver willing and able to assist with maneuvering. Diet:Carb consistent, minced and moist DVT Prophylaxis:Eliquis 5 mg BID Consults:Oral maxillofacial surgery, case management, ENT Pending Studies at Discharge: No Stand-Alone Forms: My [facility] Skilled Items Patient informed of condition?: Yes DNR: No Discharge Level of Care: Skilled Communicable Disease: No Discharge Prognosis: Stable Lines: None Urinary Catheter: No Medications and DC Order Prescriptions: New Saline Mist 0.65 % Aerosol,[place] 2 spray NA Q1HWA 10 Days Qty: 45 0RF Eliquis 5 mg Tablet 5 mg PO BID 30 Days Qty: 60 1RF guaifenesin [Mucinex] 600 mg Tablet Extended Release 12hr 600 mg PO Q12 10 Days Qty: 20 0RF Continued zolpidem 5 mg tablet 5 mg PO QPM Qty: 30 3RF furosemide 20 mg tablet 20 mg PO QAM 90 Days Qty: 90 3RF isosorbide mononitrate 30 mg tablet extended release 24 hr 90 mg PO QAM Qty: 270 3RF amlodipine 10 mg tablet 10 mg PO DAILY Qty: 90 3RF cholecalciferol (vitamin D3) 50 mcg (2,000 unit) capsule 50 mcg PO BID Qty: 30 0RF nitroglycerin 0.4 mg tablet, sublingual 0.4 mg SL UD PRN (Reason: chest pain) Qty: 20 3RF Rx Instructions: take 5 minutes apart, up to 3 doses in 24H. Januvia 25 mg tablet 25 mg PO QAM Qty: 90 3RF atenolol 50 mg tablet 50 mg PO QAM Qty: 90 3RF losartan 25 mg tablet 25 mg PO QAM Qty: 90 3RF simvastatin 20 mg tablet 20 mg PO HS Qty: 90 3RF albuterol sulfate [Ventolin HFA] 90 mcg/actuation HFA aerosol inhaler 2 puff INH Q4H PRN (Reason: shortness of breath or wheezing) Qty: 18 3RF Trelegy Ellipta 100-62.5-25 mcg blister with device 1 inh inhalation DAILY Qty: 3 2RF cranberry conc-ascorbic acid 4,200-20 mg capsule 1 cap PO DAILY calcium citrate-vitamin D3 250 mg calcium- 200 unit tablet 1 tab PO QAM multivitamin tablet 1 tab PO QAM Discontinued Xarelto 15 mg tablet 15 mg PO .COMPLEX Qty: 90 3RF Rx Instructions: 15 mg PO Take 1 tablet once daily at 5 pm; must administer with evening meal Discharge Orders: Discharge Order (Routine); Ordered 08/23/22 Ordered By: Samantha Beltran/Other Patient Handouts: Managing Type 2 Diabetes Admission Data Admit Date/Time: 08/05/22 22:10 Attending Provider: Joan Cotton Admit Provider: Ele Cuello Primary Care Provider: Dagoberto Headley Other Providers: Merced Patricia ; Lawson Humphrey ; Kirill Marcos ; Gumaro Vega ; Mckay Avery ; [facility] Other Interventions: Discharge Summary Assessment (RN) Last Done: 08/23/22 15:39 Supervising Physician Co-Signing Physician Notes Resident Physician Supervision Note: I independently interviewed and examined the patient and verified the gamez history and physical, reviewed labs and image studies and agree with resident findings and care plan.
== END 2022-08-23 17:08 | DRG 157 ==
LOC: ED 16:49 → 3N 22:10 → SUATTDRO 22:10 → 3N 08-06 00:15 → 2N 08-06 08:03

== ENCOUNTER 2022-09-10 15:34 | Inpatient (IN) ==
[2022-09-10] MEDS ORDERED: ALBUT/IPRATROP 3MG/0.5MG NEB 3 ML VIAL NEB STA (16:08)
--- NOTE | 2022-09-10 16:17 | Emergency Department Note ---
Impression & Plan SOB (shortness of breath), Anemia, CHF (congestive heart failure), Wheezing, Pedal edema, YUMIKO (acute kidney injury) ED Provider Note NAME: SAMI RODGERS AGE: 82 SEX: F : 1940 ARRIVES VIA: Ambulance INFORMANT: [Patient][ems] ED PROVIDER(S): [Dariusz Cotter MD] CHIEF COMPLAINT: Short of breath HISTORY OF PRESENT ILLNESS: The patient is an 82-year-old female who presents with about 6 or 7 days of increasing shortness of breath. Her oxygen has been increased from 2 to 3 L. Patient left [facility] rehab but, has gone downhill since leaving. She was short of breath at discharge but things have worsened. There has been no cough. No chest pain. No fever. The patient has pedal edema and a history of CHF, she is concerned that she is fluid overloaded. She is using her diuretics as prescribed. In route to the hospital, the patient was given a total of 3 sublingual nitroglycerin by EMS. She denies any current chest pain. PMHx/PSHx: See Below SOCIAL HISTORY: See Below. PHYSICAL EXAM: GENERAL: Patient is in no acute distress. HEENT: No acute trauma, normocephalic atraumatic, mucous membranes moist, no nasal congestion. NECK: No stridor, no adenopathy, no meningismus, trachea is midline. LUNGS: Diminished breath sounds with some scattered wheezing bilaterally. There are some crackles at both lung bases. No respiratory distress. HEART: 3/6 systolic murmur heard best at the right sternal border. Regular rate and rhythm ABDOMEN: Soft, nontender, bowel sounds positive, no peritonitis. EXTREMITIES: No cyanosis, moderate bilateral pedal edema, full range of motion of all the joints without pain or difficulty, no signs for acute trauma. NEUROLOGIC: Oriented x 3, no acute motor or sensory deficits, no focal weakness. SKIN: No rash, no jaundice, no diaphoresis. DIFFERENTIAL DIAGNOSIS: CHF, pneumonia, exacerbation of COPD, bronchitis, cardiac ischemia, valvular disease, anemia, renal failure, among others. EMERGENCY DEPARTMENT COURSE/PROCEDURES: Prior/Outside records reviewed: Recent discharge summary. ECG per my interpretation: Indication was shortness of breath. The ECG shows a ventricular pacemaker with a rate of 78. There is no ST elevation, no PVCs. The QTc is 497. Compared to an ECG from 08/05/2022, I see no significant change. Continuous Cardiac Monitoring per my interpretation: An order was placed for continuous cardiac monitoring. The monitor shows a rate of 66 with ventricular pacing. MEDICAL DECISION MAKING: There is no leukocytosis. The patient is anemic however, this appears baseline looking back at previous testing. There is a normal platelet count. There is a slight elevation of the INR, likely from her Eliquis use. VBG shows a mild acidosis, likely from some mild CO2 retention. Renal panel testing does show some acute kidney injury with a creatinine of 1.35. No electrolyte abnormality in need of emergent correction. No concerning liver enzyme elevation. ECG shows a ventricular pacemaker, no obvious ischemia. Cardiac enzyme testing is slightly elevated, the patient carries a history of a mild troponin elevation. BNP was significant elevated at over 3000, this is consistent with fluid overload and CHF. Chest x-ray per my review shows cardiomegaly as well as CHF. There was no pneumothorax. Urinalysis showed contamination, no obvious infection. COVID test returned negative. The patient was given a DuoNeb to help her wheeze. She was given IV Lasix, 60 mg. The patient has had an increased oxygen demand. She is turning up her at home oxygen. She has become increasingly short of breath and appears to be in heart failure. There was also some wheezing heard on exam. Given the fluid overload and dyspnea, given the acute kidney injury, given her age and recent hospitalization, I do think admission is warranted. I spoke with the patient and case management, the on-call hospitalist was consulted. DISPOSITION: Patient's presentation and findings warrant a hospital stay. Past Med/Surg History Medical History Acute anterior epistaxis Acute lower gastrointestinal bleeding Acute posterior epistaxis Anemia Anticoagulant long-term use Atrial fibrillation permanent, now s/p PPM (2016) Bradycardia CAD (coronary artery disease) [place] (1992) CHF (congestive heart failure) [facility] (Dr. Marcos) Chronic diastolic CHF (congestive heart failure) Chronic kidney disease, stage 3 follows with nephrology ([facility]/Dr. Richard) Chronic respiratory failure with hypoxia COPD (chronic obstructive pulmonary disease) 2L HS + occasionally PRN, follows with [facility] COPD with asthma COPD with emphysema Deep vein thrombosis B/L LE (1967), Diabetes mellitus, type 2 NIDDM Dysfunction of left eustachian tube Encounter for pre-operative examination Encounter for pre-operative examination GI bleed Hearing deficit History of kidney cancer s/p L nephrectomy (1997) Hyperlipidemia controlled Hypertension controlled Insomnia Insomnia Intractable back pain Leg swelling Mixed conductive and sensorineural hearing loss of left ear with restricted hearing of right ear Osteoarthritis Osteoporosis Pacemaker Implanted 2017, [employer], last check 09/2019 Pulmonary nodule per records Restless leg syndrome Syncope UTI (urinary tract infection) Vitamin D deficiency Surgical History History of cardiac cath 10+ years ago, no stents History of cholecystectomy History of colonoscopy History of hip surgery R/L NABEEL History of myringotomy + Left ear tube removal: 06/09/19: LMA#4 atraumatic at [facility] History of nephrectomy left History of vaginal hysterectomy Hx of bilateral cataract extraction Status post placement of cardiac pacemaker 2016 Family History Brother Hypertension Mother Cardiac disorder Sister Lung cancer Aunt Lung cancer Father Pneumonia Unknown Family history of allergies Environmental allergies Denies family history of Ovarian cancer Prostate cancer Myocardial infarction Breast cancer Colorectal cancer Social History Smoking Status: Former smoker Tobacco Type: Cigarettes Age Started Using Tobacco: 26; Age Quit Using Tobacco: 55; packs per day: 1; Cigarettes Per Day: 20; Second Hand Exposure: No; Do You Dip or Chew Tobacco: No; Hx Alcohol Use: No Hx Substance Use: No Preferred Language: Chinese Communication Ability: Effective Visual Impairment: No Limitations 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 current occupational status: retired current occupation: worked at [employer] Feels Safe at Home: Yes Childhood Exposure to Second-Hand Smoke: No Diet: other Diet Comment: Low sugar/ Sugar free options when possible caffeine: Yes (2 cups of coffee daily ) Dental Care, Regularly: No Physical Activity Frequency: Daily Seatbelt Use: always Sunscreen Use: Yes Assistive Devices: Walker Allergies Allergies Allergy/AdvReac Type Severity Reaction Status Date / Time chlorthalidone Allergy Severe Swelling Verified 08/05/22 20:54 of Lip/Tongue/Throat Penicillins Allergy Severe Swelling Verified 08/05/22 20:54 of Lip/Tongue/Throat MANDEEP Inhibitors Allergy Unknown Unknown Verified 08/05/22 20:54 trazodone Allergy Unknown Unknown Verified 08/05/22 20:54 Home Meds Home Medications Medication Instructions Recorded Confirmed calcium citrate 250 mg 1 tab PO QAM 11/07/18 09/06/22 calcium-vitamin D3 5 mcg (200 unit) tablet cranberry concentrate-ascorbic 1 cap PO DAILY 11/07/18 09/06/22 acid 4,200 mg-20 mg capsule multivitamin 1 tab PO QAM 11/07/18 09/06/22 Previous Rx's Medication Instructions Recorded amlodipine 10 mg tablet 10 mg PO DAILY #90 tabs 09/12/21 cholecalciferol (vitamin D3) 50 50 mcg PO BID #30 caps 09/12/21 mcg (2,000 unit) capsule nitroglycerin 0.4 mg sublingual 0.4 mg sublingual UD PRN chest 09/12/21 tablet pain #20 tabs sitagliptin phosphate 25 mg tablet 25 mg PO QAM #90 tabs 09/12/21 (Januvia) atenolol 50 mg tablet 50 mg PO QAM #90 tabs 01/10/22 losartan 25 mg tablet 25 mg PO QAM #90 tabs 01/10/22 simvastatin 20 mg tablet 20 mg PO HS #90 tabs 01/10/22 albuterol sulfate 90 mcg/actuation 2 puff inhalation Q4H PRN 02/21/22 aerosol inhaler (Ventolin HFA) shortness of breath or wheezing #18 grams fluticasone fur. 100 mcg-umeclid 1 inh inhalation DAILY #3 Inhalers 02/21/22 62.5 mcg-vilant 25 mcg inhalat.powder (Trelegy Ellipta) zolpidem 5 mg tablet 5 mg PO QPM #30 tabs 05/29/22 furosemide 20 mg tablet 20 mg PO QAM 90 days #90 tabs 07/02/22 isosorbide mononitrate 30 mg 90 mg PO QAM #270 tabs 08/01/22 tablet,extended release 24 hr apixaban 5 mg tablet (Eliquis) 5 mg PO BID 30 days #60 tabs 09/05/22 Results & Data (ED) Vital Signs Vital Signs - 24 hr 09/10/22 15:38 09/10/22 15:45 09/10/22 15:45 Temperature 37 C Temperature Source Oral Pulse Rate 70 Pulse Rate [Right Brachial] Pulse Rhythm Regular Pulse Rhythm [Right Brachial] Pulse Strength Normal Pulse Strength [Right Brachial] Respiratory Rate 20 Respiratory Effort / Characteristics Non-Labored Spontaneous SOB on Exertion Respiratory Depth Normal Deep Respiratory Pattern Regular Regular Blood Pressure 125/58 L Blood Pressure [Right Arm] Blood Pressure Mean 80 Blood Pressure Mean [Right Arm] Blood Pressure Position Lying Blood Pressure Position [Right Arm] Pulse Oximetry 81 L 81 L Oxygen Delivery Method Room Air Nasal Cannula Room Air Oxygen Flow Rate 4 Sepsis Recent Fever Within 48 Hours No Sepsis New/Unexplained Change in Mental Status No Sepsis Action Taken by Nursing No Action Required Oxygen Flow Rate - Titration 4 Pulse Oximetry Post Tiitration 96 09/10/22 15:49 09/10/22 15:51 09/10/22 15:47 Temperature 37 C Temperature Source Oral Pulse Rate 66 65 Pulse Rate [Right Brachial] 61 Pulse Rhythm Regular Pulse Rhythm [Right Brachial] Regular Pulse Strength Pulse Strength [Right Brachial] Normal Respiratory Rate 21 21 Respiratory Effort / Characteristics Non-Labored Spontaneous Respiratory Depth Deep Respiratory Pattern Regular Blood Pressure Blood Pressure [Right Arm] 125/58 L Blood Pressure Mean Blood Pressure Mean [Right Arm] 80 Blood Pressure Position Blood Pressure Position [Right Arm] Lying Pulse Oximetry 98 97 Oxygen Delivery Method Nasal Cannula Nasal Cannula Oxygen Flow Rate 4 4 Sepsis Recent Fever Within 48 Hours Sepsis New/Unexplained Change in Mental Status Sepsis Action Taken by Nursing Oxygen Flow Rate - Titration Pulse Oximetry Post Tiitration 09/10/22 18:00 Temperature Temperature Source Pulse Rate Pulse Rate [Right Brachial] 62 Pulse Rhythm Pulse Rhythm [Right Brachial] Regular Pulse Strength Pulse Strength [Right Brachial] Respiratory Rate 18 Respiratory Effort / Characteristics Respiratory Depth Normal Respiratory Pattern Blood Pressure Blood Pressure [Right Arm] 141/50 H Blood Pressure Mean Blood Pressure Mean [Right Arm] 80 Blood Pressure Position Blood Pressure Position [Right Arm] Lying Pulse Oximetry 98 Oxygen Delivery Method Nasal Cannula Oxygen Flow Rate Sepsis Recent Fever Within 48 Hours Sepsis New/Unexplained Change in Mental Status Sepsis Action Taken by Nursing Oxygen Flow Rate - Titration Pulse Oximetry Post Tiitration Home Medications Current Medication List: was personally reviewed by me Laboratory Data Attestation: I reviewed the patient's lab results. 09/10/22 15:42 09/10/22 15:42 Lab Results 09/10/22 09/10/22 09/10/22 Range/Units 15:42 15:42 15:42 WBC 5.99 (4.8-10.8) K/ul RBC 3.02 L (4.20-5.40) M/uL Hgb 9.0 L (12.0-16.0) g/dl Hct 29.0 L (37.0-47.0) % MCV 96.0 (80.0-100.0) fL MCH 29.8 (25.0-34.0) pg MCHC 31.0 L (32.0-36.0) g/dL RDW Std Deviation 48.1 H (36.4-46.3) fL RDW Coeff of Stephane 13.5 (11.5-14.5) % Plt Count 163 (130-400) K/uL MPV 10.5 (9.4-12.4) fL Immature Gran % (Auto) 0.3 % Neut % (Auto) 68.3 % Lymph % (Auto) 15.5 % [place] % (Auto) 12.9 % Eos % (Auto) 2.5 % Baso % (Auto) 0.5 % Neut # (Auto) 4.09 (1.40-6.50) K/uL Lymph # (Auto) 0.93 L (1.2-3.4) K/uL [place] # (Auto) 0.77 H (0.11-0.59) K/uL Eos # (Auto) 0.15 (0-0.50) K/uL Baso # (Auto) 0.03 (0-0.2) K/uL Immature Gran # (Auto) 0.02 (0.01-0.20) K/uL PT 12.9 H (9.0-12.0) Seconds INR 1.2 H (0.9-1.1) APTT 27.3 (21.0-31.0) Seconds PTT Ratio 1.0 VBG pH (7.36-7.41) VBG pCO2 (38-50) mmHg VBG pO2 mmHg VBG HCO3 mmol/L VBG O2 Saturation % VBG Base Excess mEq/L Sodium 139 (136-145) mmol/L Potassium 4.8 (3.5-5.1) mmol/L Chloride 104 (98-107) mmol/L Carbon Dioxide 33 H (21-32) mmol/L Anion Gap 2 L (3-11) BUN 29 H (6-23) mg/dl Creatinine 1.35 H (0.6-1.2) mg/dl Est Cr Clr Drug Dosing 35.5 ml/min Est GFR ( Amer) 41.7 ml/min Est GFR (Non-Af Amer) 36.0 ml/min BUN/Creatinine Ratio 21.5 H (10-20) Glucose 99 (70-99(Fasting)) mg/dl Calcium 9.4 (8.6-10.3) mg/dl Magnesium 2.1 (1.7-2.4) mg/dl Total Bilirubin 0.5 (0.2-1.0) mg/dl AST 15 (13-39) U/L ALT 14 (7-52) U/L Alkaline Phosphatase 47 (34-104) U/L Troponin I High Sens 15.4 H (0-14) pg/ml B-Natriuretic Peptide (0-100) pg/ml Total Protein 6.3 (6.0-8.3) gm/dl Albumin 3.4 (3.4-5.0) gm/dl Globulin 2.9 (2.5-4.0) gm/dl Albumin/Globulin Ratio 1.2 (0.9-2) Urine Color Urine Appearance (Clear) Urine pH (4.5-7.5) Ur Specific [place] (1.000-1.030) Urine Protein (Negative) Urine Glucose (UA) (Negative) Urine Ketones (Negative) Urine Blood (Negative) Urine Nitrite (Negative) Urine Bilirubin (Negative) Urine Urobilinogen (Negative) Ur Leukocyte Esterase (Negative) Urine WBC (Auto) (0-5) /hpf Urine RBC (Auto) (0-4) /hpf U Hyaline Cast (Auto) (0-5) /lpf U Epithel Cells (Auto) (0-5) /lpf Urine Bacteria (Auto) (Negative) SARS-CoV-2, RNA, NAAT (NEGATIVE) 09/10/22 09/10/22 09/10/22 Range/Units 15:42 15:51 16:34 WBC (4.8-10.8) K/ul RBC (4.20-5.40) M/uL Hgb (12.0-16.0) g/dl Hct (37.0-47.0) % MCV (80.0-100.0) fL MCH (25.0-34.0) pg MCHC (32.0-36.0) g/dL RDW Std Deviation (36.4-46.3) fL RDW Coeff of Stephane (11.5-14.5) % Plt Count (130-400) K/uL MPV (9.4-12.4) fL Immature Gran % (Auto) % Neut % (Auto) % Lymph % (Auto) % [place] % (Auto) % Eos % (Auto) % Baso % (Auto) % Neut # (Auto) (1.40-6.50) K/uL Lymph # (Auto) (1.2-3.4) K/uL [place] # (Auto) (0.11-0.59) K/uL Eos # (Auto) (0-0.50) K/uL Baso # (Auto) (0-0.2) K/uL Immature Gran # (Auto) (0.01-0.20) K/uL PT (9.0-12.0) Seconds INR (0.9-1.1) APTT (21.0-31.0) Seconds PTT Ratio VBG pH 7.29 L (7.36-7.41) VBG pCO2 67 H (38-50) mmHg VBG pO2 43 mmHg VBG HCO3 32 mmol/L VBG O2 Saturation 70.9 % VBG Base Excess 3.6 mEq/L Sodium (136-145) mmol/L Potassium (3.5-5.1) mmol/L Chloride (98-107) mmol/L Carbon Dioxide (21-32) mmol/L Anion Gap (3-11) BUN (6-23) mg/dl Creatinine (0.6-1.2) mg/dl Est Cr Clr Drug Dosing ml/min Est GFR ( Amer) ml/min Est GFR (Non-Af Amer) ml/min BUN/Creatinine Ratio (10-20) Glucose (70-99(Fasting)) mg/dl Calcium (8.6-10.3) mg/dl Magnesium (1.7-2.4) mg/dl Total Bilirubin (0.2-1.0) mg/dl AST (13-39) U/L ALT (7-52) U/L Alkaline Phosphatase (34-104) U/L Troponin I High Sens (0-14) pg/ml B-Natriuretic Peptide 3546 H (0-100) pg/ml Total Protein (6.0-8.3) gm/dl Albumin (3.4-5.0) gm/dl Globulin (2.5-4.0) gm/dl Albumin/Globulin Ratio (0.9-2) Urine Color Urine Appearance (Clear) Urine pH (4.5-7.5) Ur Specific [place] (1.000-1.030) Urine Protein (Negative) Urine Glucose (UA) (Negative) Urine Ketones (Negative) Urine Blood (Negative) Urine Nitrite (Negative) Urine Bilirubin (Negative) Urine Urobilinogen (Negative) Ur Leukocyte Esterase (Negative) Urine WBC (Auto) (0-5) /hpf Urine RBC (Auto) (0-4) /hpf U Hyaline Cast (Auto) (0-5) /lpf U Epithel Cells (Auto) (0-5) /lpf Urine Bacteria (Auto) (Negative) SARS-CoV-2, RNA, NAAT NEGATIVE (NEGATIVE) 09/10/22 Range/Units Unknown WBC (4.8-10.8) K/ul RBC (4.20-5.40) M/uL Hgb (12.0-16.0) g/dl Hct (37.0-47.0) % MCV (80.0-100.0) fL MCH (25.0-34.0) pg MCHC (32.0-36.0) g/dL RDW Std Deviation (36.4-46.3) fL RDW Coeff of Stephane (11.5-14.5) % Plt Count (130-400) K/uL MPV (9.4-12.4) fL Immature Gran % (Auto) % Neut % (Auto) % Lymph % (Auto) % [place] % (Auto) % Eos % (Auto) % Baso % (Auto) % Neut # (Auto) (1.40-6.50) K/uL Lymph # (Auto) (1.2-3.4) K/uL [place] # (Auto) (0.11-0.59) K/uL Eos # (Auto) (0-0.50) K/uL Baso # (Auto) (0-0.2) K/uL Immature Gran # (Auto) (0.01-0.20) K/uL PT (9.0-12.0) Seconds INR (0.9-1.1) APTT (21.0-31.0) Seconds PTT Ratio VBG pH (7.36-7.41) VBG pCO2 (38-50) mmHg VBG pO2 mmHg VBG HCO3 mmol/L VBG O2 Saturation % VBG Base Excess mEq/L Sodium (136-145) mmol/L Potassium (3.5-5.1) mmol/L Chloride (98-107) mmol/L Carbon Dioxide (21-32) mmol/L Anion Gap (3-11) BUN (6-23) mg/dl Creatinine (0.6-1.2) mg/dl Est Cr Clr Drug Dosing ml/min Est GFR ( Amer) ml/min Est GFR (Non-Af Amer) ml/min BUN/Creatinine Ratio (10-20) Glucose (70-99(Fasting)) mg/dl Calcium (8.6-10.3) mg/dl Magnesium (1.7-2.4) mg/dl Total Bilirubin (0.2-1.0) mg/dl AST (13-39) U/L ALT (7-52) U/L Alkaline Phosphatase (34-104) U/L Troponin I High Sens (0-14) pg/ml B-Natriuretic Peptide (0-100) pg/ml Total Protein (6.0-8.3) gm/dl Albumin (3.4-5.0) gm/dl Globulin (2.5-4.0) gm/dl Albumin/Globulin Ratio (0.9-2) Urine Color Yellow Urine Appearance Clear (Clear) Urine pH 5.0 (4.5-7.5) Ur Specific [place] 1.014 (1.000-1.030) Urine Protein Negative (Negative) Urine Glucose (UA) Negative (Negative) Urine Ketones Negative (Negative) Urine Blood Negative (Negative) Urine Nitrite Negative (Negative) Urine Bilirubin Negative (Negative) Urine Urobilinogen Negative (Negative) Ur Leukocyte Esterase 2+ H (Negative) Urine WBC (Auto) 10-30 H (0-5) /hpf Urine RBC (Auto) 0-4 (0-4) /hpf U Hyaline Cast (Auto) 1-5 (0-5) /lpf U Epithel Cells (Auto) >30 H (0-5) /lpf Urine Bacteria (Auto) Negative (Negative) SARS-CoV-2, RNA, NAAT (NEGATIVE) Administered Medications Discontinued Medications Albuterol (Albut/Ipratrop 3mg/0.5mg Neb 3 Ml Vial) 3 ml NEB NOW STA; Protocol Stop: 09/10/22 16:09 Last Admin: 09/10/22 16:48 Dose: 3 ml Documented By: CALEB Furosemide (Furosemide 40 Mg/4 Ml Vial) 40 mg IV ONE ONE Stop: 09/10/22 16:24 Last Admin: 09/10/22 16:48 Dose: 40 mg Documented By: SLB Imaging Data Radiologist's Impression: Chest X-Ray 09/10/22 15:50 XR chest 1V portable HISTORY: Dyspnea COMPARISON: Chest 08/22/2022. FINDINGS: No pneumothorax. Small bilateral pleural effusions and bibasilar densities persist. The heart remains enlarged. Interstitial thickening and perihilar hazy airspace opacities have progressed. This is consistent with moderate pulmonary edema. There is a left-sided single lead pacemaker. Slightly rotated study. IMPRESSION: Interval progression of the moderate pulmonary edema and bilateral pleural effusions/densities. ACT 112: Negative or not required by law. Electronically signed by: Chalino Cooper M.D. 09/10/2022 4:37 PM Discharge Plan Visit Data Chief Complaint: Shortness of Breath/Dyspnea ED Provider: Dariusz Cotter Discharge Problem: SOB (shortness of breath), Anemia, CHF (congestive heart failure), Wheezing, Pedal edema, YUMIKO (acute kidney injury) Patient Disposition: Admitted As Inpatient Condition: Fair Forms Stand Alone Forms: My [facility] Pongr Prescriptions Prescriptions: No Action zolpidem 5 mg tablet 5 mg PO QPM Qty: 30 3RF furosemide 20 mg tablet 20 mg PO QAM 90 Days Qty: 90 3RF isosorbide mononitrate 30 mg tablet extended release 24 hr 90 mg PO QAM Qty: 270 3RF Eliquis 5 mg tablet 5 mg PO BID 30 Days Qty: 60 1RF amlodipine 10 mg tablet 10 mg PO DAILY Qty: 90 3RF cholecalciferol (vitamin D3) 50 mcg (2,000 unit) capsule 50 mcg PO BID Qty: 30 0RF nitroglycerin 0.4 mg tablet, sublingual 0.4 mg SL UD PRN (Reason: chest pain) Qty: 20 3RF Rx Instructions: take 5 minutes apart, up to 3 doses in 24H. Januvia 25 mg tablet 25 mg PO QAM Qty: 90 3RF atenolol 50 mg tablet 50 mg PO QAM Qty: 90 3RF losartan 25 mg tablet 25 mg PO QAM Qty: 90 3RF simvastatin 20 mg tablet 20 mg PO HS Qty: 90 3RF albuterol sulfate [Ventolin HFA] 90 mcg/actuation HFA aerosol inhaler 2 puff INH Q4H PRN (Reason: shortness of breath or wheezing) Qty: 18 3RF Trelegy Ellipta 100-62.5-25 mcg blister with device 1 inh inhalation DAILY Qty: 3 2RF cranberry conc-ascorbic acid 4,200-20 mg capsule 1 cap PO DAILY calcium citrate-vitamin D3 250 mg calcium- 200 unit tablet 1 tab PO QAM multivitamin tablet 1 tab PO QAM Referrals Referrals: Dagoberto Headley MD [Primary Care Provider] -
[2022-09-10 16:19] LABS: Basophils # (auto) 0.03 K/uL (0-0.2); Basophils % (auto) 0.5 %; Eosinophils # (auto) 0.15 K/uL (0-0.50); Eosinophils % (auto) 2.5 %; Immature Granulocytes # (auto) 0.02 K/uL (0.01-0.20); Immature Granulocytes % (auto) 0.3 %; Lymphocytes # (auto) 0.93 K/uL (1.2-3.4); Lymphocytes % (auto) 15.5 %; Mean Corpuscular Hemoglobin 29.8 pg (25.0-34.0); Mean Platelet Volume 10.5 fL (9.4-12.4); Monocytes # (auto) 0.77 K/uL (0.11-0.59); Monocytes % (auto) 12.9 %; Neutrophils # (auto) 4.09 K/uL (1.40-6.50); Neutrophils % (auto) 68.3 %; Platelet Count 163 K/uL (130-400); RDW Coefficient of Variation 13.5 % (11.5-14.5); RDW Standard Deviation 48.1 fL (36.4-46.3); Red Blood Count 3.02 M/uL (4.20-5.40); White Blood Count 5.99 K/ul (4.8-10.8)
[2022-09-10] MEDS ORDERED: FUROSEMIDE 40 MG/4 ML VIAL IV ONE (16:23)
[2022-09-10 16:27] LABS: INR 1.2 (0.9-1.1); Partial Thromboplastin Time 27.3 Seconds (21.0-31.0); Prothrombin Time 12.9 Seconds (9.0-12.0)
[2022-09-10 16:35] LABS: Albumin Level 3.4 gm/dl (3.4-5.0); Bilirubin,Total 0.5 mg/dl (0.2-1.0); Calcium 9.4 mg/dl (8.6-10.3); Magnesium 2.1 mg/dl (1.7-2.4); Potassium 4.8 mmol/L (3.5-5.1)
--- NOTE | 2022-09-10 16:38 | XRay Report ---
XR chest 1V portable HISTORY: Dyspnea COMPARISON: Chest 08/22/2022. FINDINGS: No pneumothorax. Small bilateral pleural effusions and bibasilar densities persist. The hea rt remains enlarged. Interstitial thickening and perihilar hazy airspace opacities have progressed. T his is consistent with moderate pulmonary edema. There is a left-sided single lead pacemaker. Slightl y rotated study. IMPRESSION: Interval progression of the moderate pulmonary edema and bilateral pleural effusions/densities. ACT 112: Negative or not required by law. Electronically signed by: Chalino Cooper M.D. 09/10/2022 4:37 PM
[2022-09-10 16:41] LABS: Albumin Globulin Ratio 1.2 (0.9-2); BUN Creatinine Ratio 21.5 (10-20); Creatinine Clr Calc Pharmacy 35.5 ml/min; Est GFR (African American) 41.7 ml/min; Globulin 2.9 gm/dl (2.5-4.0); Total Protein 6.3 gm/dl (6.0-8.3)
[2022-09-10 16:42] LABS: Troponin I High Sensitivity 15.4 pg/ml (0-14)
[2022-09-10 17:09] LABS: Base Excess VBG 3.6 mEq/L; HCO3 VBG 32 mmol/L; Oxygen Saturation VBG 70.9 %; PCO2 VBG 67 mmHg (38-50); PO2 VBG 43 mmHg; pH VBG 7.29 (7.36-7.41)
--- NOTE | 2022-09-10 17:21 | History & Physical Report ---
Date of Service September 10, 2022 Assessment & Plan (1) Congestive heart failure: Plan: Chronic and unstable Continue to diurese Will get repeat limited echo to look for wall motion abnormality with slightly elevated troponin and murmur auscultated on exam (3/6 BENNY likely ) (2) COPD with asthma: Plan: Chronic, unstable Trilegy or hospital equivalent Duoneb treatments Titrate Oxygen to maintain Os saturation in low 90s May need 2 step prior to dicharge if may need increased O2 with exertion (3) Hypertension: Plan: Chronic and stable - Losartan 25mg, Isosorbide 30mg, Atenolol 50mg, amlodipine 10mg (4) Hyperlipidemia: Plan: chronic and stable Continue Simvastatin (5) Chronic kidney disease, stage 3: Plan: Chronic and stable Patient follows with nephrology Monitor Is and Os (6) Atrial fibrillation: Plan: A Fib with hx of multiple DVTs on Xarelto [id number] score of 7 (7) Diabetes mellitus, type 2: Plan: Carb consistent diet Sitagliptin on hold ISS while inpatient Plan will continue to trend troponins and get limited echo EKG prn chest pain monitor on tele History of Present Illness Chief Complaint: increasing shortness of breath Primary Care Provider: Dagoberto Headley MD Cammy Zhu is a 82 year old female with an extensive past medical history of CAD (NC in 1992), permanent atrial fibrillation, multiple prior DVTs on Xarelto, diastolic CHF, 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 Patient was recently admitted to [facility] early this month after suffe ring a fall and suffering multiple facial bone fractures. Patient was discharged to [facility] for rehab and she shtates she continued to be SOB and have lower extremity swelling. She was discharged to home 5 days ago and states due to the increasing SOB she has been sleeping upright in a recliner and also increased her home nc O2 from 2 to 3 L/per min. She has Trilegy, albuterol and ventolin inhalers and states she is compliant with using. She thinks the albuterol inhaler has helped minimally with her SOB. She denies any chest pain, cough, fever, congestion. She does admit to increasing lower extremity swelling. She usually eats a low sodium diet but states with her recent fall and facial fractures she has been eating more soft and easy to chew foods. She thinks she has been eating more soups and things in a can that she normally does not eat. Last echo was 08/06/22 and revealed that the aortic valve was trileaflet with no sifnificant AR with moderate . EF 50-55%. There are regional wall motion abnormalities - Left atrium dilated, right atrium moderately dilated and moderate . Patient was evaluated in ER, she is noted to have significant lower extremity swelling. Troponin was 15.4 ( 15.3 in July), BNP elevated at 3546, Hgb stable WBC normal, venous CO2 67. LFTs normal, Mg 2.1, BUN 29 and Cr 1.35. EKG revealed ventricular paced rhythm, and when compared with EKG 07/2022 PVCs are no longer present. Allergies Allergy/AdvReac Type Severity Reaction Status Date / Time chlorthalidone Allergy Severe Swelling Verified 08/05/22 20:54 of Lip/Tongue/Throat Penicillins Allergy Severe Swelling Verified 08/05/22 20:54 of Lip/Tongue/Throat MANDEEP Inhibitors Allergy Unknown Unknown Verified 08/05/22 20:54 trazodone Allergy Unknown Unknown Verified 08/05/22 20:54 Home Medications Medication Instructions Recorded Confirmed Type calcium citrate 250 mg 1 tab PO QAM 11/07/18 09/06/22 History calcium-vitamin D3 5 mcg (200 unit) tablet cranberry concentrate-ascorbic 1 cap PO DAILY 11/07/18 09/06/22 History acid 4,200 mg-20 mg capsule multivitamin 1 tab PO QAM 11/07/18 09/06/22 History amlodipine 10 mg tablet 10 mg PO DAILY #90 tabs 09/12/21 09/06/22 Rx cholecalciferol (vitamin D3) 50 50 mcg PO BID #30 caps 09/12/21 09/06/22 Rx mcg (2,000 unit) capsule nitroglycerin 0.4 mg sublingual 0.4 mg sublingual UD PRN chest 09/12/21 09/06/22 Rx tablet pain #20 tabs sitagliptin phosphate 25 mg tablet 25 mg PO QAM #90 tabs 09/12/21 09/06/22 Rx (Januvia) atenolol 50 mg tablet 50 mg PO QAM #90 tabs 01/10/22 09/06/22 Rx losartan 25 mg tablet 25 mg PO QAM #90 tabs 01/10/22 09/06/22 Rx simvastatin 20 mg tablet 20 mg PO HS #90 tabs 01/10/22 09/06/22 Rx albuterol sulfate 90 mcg/actuation 2 puff inhalation Q4H PRN 02/21/22 09/06/22 Rx aerosol inhaler (Ventolin HFA) shortness of breath or wheezing #18 grams fluticasone fur. 100 mcg-umeclid 1 inh inhalation DAILY #3 Inhalers 02/21/22 09/06/22 Rx 62.5 mcg-vilant 25 mcg inhalat.powder (Trelegy Ellipta) zolpidem 5 mg tablet 5 mg PO QPM #30 tabs 05/29/22 09/06/22 Rx furosemide 20 mg tablet 20 mg PO QAM 90 days #90 tabs 07/02/22 09/06/22 Rx isosorbide mononitrate 30 mg 90 mg PO QAM #270 tabs 08/01/22 09/06/22 Rx tablet,extended release 24 hr apixaban 5 mg tablet (Eliquis) 5 mg PO BID 30 days #60 tabs 09/05/22 09/06/22 Rx Past Med/Surg History Medical History Acute anterior epistaxis Acute lower gastrointestinal bleeding Acute posterior epistaxis Anemia Anticoagulant long-term use Atrial fibrillation permanent, now s/p PPM (2016) Bradycardia CAD (coronary artery disease) NC (1992) CHF (congestive heart failure) follows with [facility] (Dr. Marcos) Chronic diastolic CHF (congestive heart failure) Chronic kidney disease, stage 3 follows with nephrology ([facility]/Dr. Richard) Chronic respiratory failure with hypoxia COPD (chronic obstructive pulmonary disease) 2L HS + occasionally PRN, follows with [facility] COPD with asthma COPD with emphysema Deep vein thrombosis B/L LE (1967), Diabetes mellitus, type 2 NIDDM Dysfunction of left eustachian tube Encounter for pre-operative examination Encounter for pre-operative examination GI bleed Hearing deficit History of kidney cancer s/p L nephrectomy (1997) Hyperlipidemia controlled Hypertension controlled Insomnia Insomnia Intractable back pain Leg swelling Mixed conductive and sensorineural hearing loss of left ear with restricted hearing of right ear Osteoarthritis Osteoporosis Pacemaker Implanted 2017, [employer], last check 09/2019 Pulmonary nodule per records Restless leg syndrome Syncope UTI (urinary tract infection) Vitamin D deficiency Surgical History History of cardiac cath 10+ years ago, no stents History of cholecystectomy History of colonoscopy History of hip surgery R/L NABEEL History of myringotomy + Left ear tube removal: 06/09/19: LMA#4 atraumatic at [facility] History of nephrectomy left History of vaginal hysterectomy Hx of bilateral cataract extraction Status post placement of cardiac pacemaker 2016 Family History Brother Hypertension Mother Cardiac disorder Sister Lung cancer Aunt Lung cancer Father Pneumonia Unknown Family history of allergies Environmental allergies Denies family history of Ovarian cancer Prostate cancer Myocardial infarction Breast cancer Colorectal cancer Social History Smoking Status: Former smoker Tobacco Type: Cigarettes Age Started Using Tobacco: 26; Age Quit Using Tobacco: 55; packs per day: 1; Cigarettes Per Day: 20; Second Hand Exposure: No; Do You Dip or Chew Tobacco: No; Hx Alcohol Use: No Hx Substance Use: No Preferred Language: Kyrgyz Communication Ability: Effective Visual Impairment: No Limitations Hearing Ability: Hard of Hearing Policy Officer Required: No Beliefs That Will Affect Care: None marital status: / Current Living Situation: Alone Current Living Situation Comment: [facility] 2 bedrooms. current occupational status: retired current occupation: worked at [employer] Feels Safe at Home: Yes Childhood Exposure to Second-Hand Smoke: No Diet: other Diet Comment: Low sugar/ Sugar free options when possible caffeine: Yes (2 cups of coffee daily ) Dental Care, Regularly: No Physical Activity Frequency: Daily Seatbelt Use: always Sunscreen Use: Yes Assistive Devices: Walker Review of Systems Constitutional: + chills and + fatigue; no fever, no anorexia and no weight loss Respiratory: + wheezing; no cough, no chest congestion, no dyspnea and no hemoptysis Cardiovascular: + edema; no chest pain, no chest pain with activity and no syncope Gastrointestinal: no bloating, no early satiety, no nausea, no vomiting and no change in bowel habits Genitourinary: no dysuria, no urinary frequency, no urinary hesitancy and no nocturia Integumentary: no rash, no lesions and no new lesions Endocrine: no polydipsia, no polyphagia and no polyuria Physical Exam Constitutional: WD/WN, vitals as above Respiratory: decreased breath sounds, mild end expiratory wheezing with fine crackles in the bases Cardiovascular: Rate/Rhythm: regular rate and regular rhythm Heart Sounds: normal S1, normal S2 and + murmur Extremities: + edema; no calf tenderness 3/6 BENNY Gastrointestinal (Abdomen): Inspection/Auscultation: abdomen normal to inspection and normal bowel sounds Percussion/Palpation: abdomen soft; no guarding, abdomen not rigid and no hepatosplenomegaly Results & Data Results & Data Vital Signs (Past 12 Hours) Vital Signs Temp Pulse Pulse Resp BP BP Pulse Ox 09/10/22 15:47 65 09/10/22 15:51 66 21 97 09/10/22 15:49 37 C 61 21 125/58 L 98 09/10/22 15:45 81 L 09/10/22 15:45 09/10/22 15:38 37 C 70 20 125/58 L 81 L O2 Del Method O2 Flow Rate 09/10/22 15:47 09/10/22 15:51 Nasal Cannula 4 09/10/22 15:49 Nasal Cannula 4 09/10/22 15:45 Room Air 09/10/22 15:45 Nasal Cannula 4 09/10/22 15:38 Room Air Laboratory Results Abnormal lab results 09/10/22 09/10/22 09/10/22 Range/Units 15:42 15:42 15:42 RBC 3.02 L (4.20-5.40) M/uL Hgb 9.0 L (12.0-16.0) g/dl Hct 29.0 L (37.0-47.0) % MCHC 31.0 L (32.0-36.0) g/dL RDW Std Deviation 48.1 H (36.4-46.3) fL Lymph # (Auto) 0.93 L (1.2-3.4) K/uL Garfield # (Auto) 0.77 H (0.11-0.59) K/uL PT 12.9 H (9.0-12.0) Seconds INR 1.2 H (0.9-1.1) VBG pH (7.36-7.41) VBG pCO2 (38-50) mmHg Carbon Dioxide 33 H (21-32) mmol/L Anion Gap 2 L (3-11) BUN 29 H (6-23) mg/dl Creatinine 1.35 H (0.6-1.2) mg/dl BUN/Creatinine Ratio 21.5 H (10-20) Troponin I High Sens 15.4 H (0-14) pg/ml B-Natriuretic Peptide (0-100) pg/ml Ur Leukocyte Esterase (Negative) Urine WBC (Auto) (0-5) /hpf U Epithel Cells (Auto) (0-5) /lpf 09/10/22 09/10/22 09/10/22 Range/Units 15:42 16:34 Unknown RBC (4.20-5.40) M/uL Hgb (12.0-16.0) g/dl Hct (37.0-47.0) % MCHC (32.0-36.0) g/dL RDW Std Deviation (36.4-46.3) fL Lymph # (Auto) (1.2-3.4) K/uL Garfield # (Auto) (0.11-0.59) K/uL PT (9.0-12.0) Seconds INR (0.9-1.1) VBG pH 7.29 L (7.36-7.41) VBG pCO2 67 H (38-50) mmHg Carbon Dioxide (21-32) mmol/L Anion Gap (3-11) BUN (6-23) mg/dl Creatinine (0.6-1.2) mg/dl BUN/Creatinine Ratio (10-20) Troponin I High Sens (0-14) pg/ml B-Natriuretic Peptide 3546 H (0-100) pg/ml Ur Leukocyte Esterase 2+ H (Negative) Urine WBC (Auto) 10-30 H (0-5) /hpf U Epithel Cells (Auto) >30 H (0-5) /lpf Diagnostic Findings Chest X-Ray 09/10/22 15:50 XR chest 1V portable HISTORY: Dyspnea COMPARISON: Chest 08/22/2022. FINDINGS: No pneumothorax. Small bilateral pleural effusions and bibasilar densities persist. The heart remains enlarged. Interstitial thickening and perihilar hazy airspace opacities have progressed. This is consistent with moderate pulmonary edema. There is a left-sided single lead pacemaker. Slightly rotated study. IMPRESSION: Interval progression of the moderate pulmonary edema and bilateral pleural effusions/densities. ACT 112: Negative or not required by law. Electronically signed by: Chalino Cooper M.D. 09/10/2022 4:37 PM Supervising Physician Co-Signing Physician Notes Patient seen and examined, chart reviewed, case discussed with Ashanti Wilkins PA-C and I agree with the assessment and plan as above except as otherwise noted Labs and images reviewed Cammy is seen at the bedside. She is much more comfortable and reports that she already feels improved after receiving 40 mg of Lasix. She reports that she did present for continued lower extremity swelling and some increase shortness of breath with exercise capacity being diminished. Has had some but not very much improvement with albuterol, does not think she has been wheezing much maybe a little. She has progressively worsened since arriving home after rehab 5 days ago. Her lungs are diminished with an expiratory wheezes, trace bibasilar crackles are appreciated with overall diminished lung sounds, she has bilateral pitting edema of the lower extremities, heart rate is regular with a systolic murmur. JVD difficult to assess due to body habitus. Suspect acute on chronic fluid overload, with additional salt intake in the preceding days. She is hemodynamically stable, agree with admission and diuresis. Agree with diuretic use for CHF and agree with management of chronic issues as above PG Care Time/CCT Total # of Minutes Spent Total Time Spent with Patient: Total time spent is greater than 50% in coordination of care (as documented) at patient's floor/unit and/or counseling patient: Coding Level of Care Code 61898 INT INP/OBS CARE 1/40MIN Diagnoses Congestive heart failure I50.9 COPD with asthma J44.9 Hypertension I10 Hyperlipidemia E78.5 Hyperlipidemia type: unspecified Chronic kidney disease, stage 3 N18.3 Atrial fibrillation I48.91 Diabetes mellitus, type 2 E11.9 (4) Hyperlipidemia Hyperlipidemia type: unspecified Qualified Code(s): E78.5 - Hyperlipidemia, unspecified
[2022-09-10 17:38] LABS: Appearance Urine Clear (Clear); Bacteria Urine Automated Negative (Negative); Bilirubin Urine Negative (Negative); Blood Urine Negative (Negative); Color Urine Yellow; Epithelial Cell Urine Auto >30 /lpf (0-5); Glucose Urine UA Negative (Negative); Ketones Urine Negative (Negative); Leukocyte Esterase Urine 2+ (Negative); Nitrite Urine Negative (Negative); Protein Urine Negative (Negative); RBC Urine Automated 0-4 /hpf (0-4); Specific Gravity Urine 1.014 (1.000-1.030); Urobilinogen Urine Negative (Negative)
[2022-09-11] MEDS ORDERED: DEXTROSE 50% 50 ML SYRINGE IV PRN (00:26)
[2022-09-11] MEDS ORDERED: NITROGLYCERIN SL 0.4 MG/TAB TAB SL PRN (00:26)
[2022-09-11] MEDS ORDERED: CARBOHYDRATES FOR HYPOGLYCEMIA PO PRN (00:26)
[2022-09-11] MEDS ORDERED: GLUCOSE 40% GEL 15 GM TUBE PO PRN (00:26)
[2022-09-11] MEDS ORDERED: PHARMACY GLYCEMIC MGMT CONSULT PRN (00:26)
[2022-09-11] MEDS ORDERED: POLYETHYLENE (MIRALAX) 17 GM PACK PO PRN (00:26)
[2022-09-11] MEDS ORDERED: GLUCAGON FOR INJ 1 MG VIAL SQ PRN (00:26)
[2022-09-11] MEDS ORDERED: GLUCOSE 10 TAB/TUBE PO PRN (00:26)
[2022-09-11] MEDS: INSULIN ASPART PER UNIT CHARGE SC SCH ×5 (00:46→20:56)
[2022-09-11] MEDS: ZOLPIDEM TARTRATE 5 MG TAB PO PRN (00:51)
[2022-09-11] MEDS: ALBUT/IPRATROP 3MG/0.5MG NEB 3 ML VIAL NEB SCH ×5 (01:14→19:01)
[2022-09-11] MEDS: APIXABAN 5 MG TABLET PO SCH ×3 (01:38→20:57)
[2022-09-11] MEDS: SIMVASTATIN 20 MG TAB PO SCH ×2 (01:38→20:57)
[2022-09-11 06:23] LABS: Hematocrit (blood only) 30.9 % (37.0-47.0); Hemoglobin 9.5 g/dl (12.0-16.0); Mean Corpuscular Hemoglobin 29.8 pg (25.0-34.0); Mean Corpuscular Hgb Conc 30.7 g/dL (32.0-36.0); Mean Corpuscular Volume 96.9 fL (80.0-100.0); Mean Platelet Volume 10.3 fL (9.4-12.4); Platelet Count 154 K/uL (130-400); RDW Coefficient of Variation 13.5 % (11.5-14.5); RDW Standard Deviation 48.3 fL (36.4-46.3); Red Blood Count 3.19 M/uL (4.20-5.40)
[2022-09-11 06:35] LABS: BUN Creatinine Ratio 22.6 (10-20); Calcium 9.6 mg/dl (8.6-10.3); Creatinine Clr Calc Pharmacy 34.3 ml/min; Est GFR (African American) 40.9 ml/min; Est GFR (Non-African American) 35.3 ml/min; Magnesium 2.1 mg/dl (1.7-2.4); Potassium 4.7 mmol/L (3.5-5.1)
[2022-09-11 07:30] LABS: Estimated Average Glucose 111 mg/dl; Hemoglobin A1C 5.5 % (4.5-5.6)
[2022-09-11] MEDS ORDERED: ONDANSETRON INJ 2 MG/ML 2 ML VIAL IV STA (08:12)
[2022-09-11] MEDS: amLODIPine BESYLATE 5 MG TAB PO SCH (08:49)
[2022-09-11] MEDS: UMECLIDINIUM/VILANTEROL 62.5/25MCG 7 PUFFS/INHALER INH SCH (08:50)
[2022-09-11] MEDS: FLUTICASONE FUROATE 100MCG 14 PUFFS/INHALER INH SCH (08:50)
[2022-09-11] MEDS: ATENOLOL 50 MG TABLET PO SCH (08:50)
[2022-09-11] MEDS: ISOSORBIDE MONO EXTENDED REL 30 MG TABCR PO SCH (08:51)
[2022-09-11] MEDS: LOSARTAN POTASSIUM 25 MG TAB PO SCH (08:51)
[2022-09-11] MEDS ORDERED: FUROSEMIDE 40 MG/4 ML VIAL IV ONE (09:08)
--- NOTE | 2022-09-11 09:33 | XCELERA ---
[id number]
--- NOTE | 2022-09-11 10:48 | Electrocardiogram Report ---
Test Reason : Blood Pressure : / mmHG Vent. Rate : 078 BPM Atrial Rate : 081 BPM P-R Int : 000 ms QRS Dur : 162 ms QT Int : 436 ms P-R-T Axes : 000 -87 096 degrees QTc Int : 497 ms Ventricular-paced rhythm Abnormal ECG When compared with ECG of 05-AUG-2022 16:58, Premature ventricular complexes are no longer Present Vent. rate has increased BY 9 BPM Confirmed by Kirill Marcos ([id number]) on 09/11/2022 10:47:42 AM Referred By: Confirmed By:Kirill Marcos
--- NOTE | 2022-09-11 13:05 | Hospitalist Progress Note ---
Date of Service September 11, 2022 Assessment & Plan (1) CHF (congestive heart failure): Plan: (1) Congestive heart failure: Chronic and unstable, BNP > 3,000 Continue to diurese on lasix 40 mg IV BID Echo shows no signficiant change from 08/06/22: normal systolic function, akinesis of distal inferior wall, EF 50-55%, moderate valvular aortic stenosis, moderate MR and TR ECG: ventricularly paced rhythm (vent rate 78, atrial rate 81) (2) COPD with asthma: 3L nasal cannula, maintain O2 saturation in the low 90s [facility] or hospital equivalent Duoneb treatments Ellipta May need 2 step prior to discharge if may need increased O2 with exertion (3) Hypertension: - Losartan 25mg, Isosorbide 30mg, Atenolol 50mg, amlodipine 10mg (4) Hyperlipidemia: Continue Simvastatin (5) Chronic kidney disease, stage 3: Cr 1.35, suspect due to hypovolemia Patient follows with nephrology Monitor Is and Os (6) Atrial fibrillation: A Fib with hx of multiple DVTs on Xarelto [id number] score of 7 (7) Diabetes mellitus, type 2: Carb consistent diet Sitagliptin on hold ISS while inpatient Admission and Anticipated Discharge Date Admission Date: September 10, 2022 Supervising Physician Co-Signing Physician Notes I personally examined the patient and verified all gamez points of history and exam, discussed case, and agree with decision making with Kyle Posey MS4. Breathing feeling better than whenever she came in, but still not as good as a normal day. On review she was struggling at homealthough clarifying it sounds like a lot of struggling at home was just with progressive shortness of breath that she could not get ahead of. She notes that her diet at home was fruit and yogurt in the morning, something like an egg salad sandwich for lunch, and similar for dinner, but then she also noted that she was eating a lot of chicken noodle soup. Vitals noted, in general she is awake and alert wearing an oxygen mask but otherwise in no significant distress. Lungs show bibasilar rales that clear to about a third of the way up to maybe mid lung field, no rhonchi no wheezes no accessory muscle use. Skin shows no rashes no pallor or icterus. Acute on chronic diastolic CHF (acute on chronic HFpEF)likely due to sodium intake with chicken noodle soup. Diuresis, follow closely. YUMIKO is probably poor forward flow from CHF decompensation. otherwise as above Subjective Today Cammy became nauseous and vomited after eating some of her breakfast. She experienced early satiety. She returned to her home on Friday09/06/22 from [facility], and she had a tough time adjusting. She likely had an increased salt load upon returning home as she ate soup, egg salad and potato salad. Her SOB is improved compared to yesterday but significantly worse than her baseline. She has a cough with clear sputum without fevers or chills. She has no chest pain or palpitations and regularly gets her pacemaker checked with Dr. Marcos. She has no dysuria. Review of Systems Review of Systems: All systems reviewed & are unremarkable except as noted in HPI & below Physical Exam Physical Exam: appearance: sitting upright in chair, NAD Respiratory: on 3L nasal cannula, some coughing during interview, no conversational dyspnea, crackles in BL lung bases, expiratory wheezing Cardiovascular: systolic murmur, regular rate, BL pitting edema in the LE, abdominal distention Gastrointestinal (Abdomen): +distention, no pain to palpation/rebound/guarding Results & Data Results & Data Vital Signs (Past 12 Hours) Vital Signs Temp Pulse Pulse Resp BP Pulse Ox O2 Del Method 09/11/22 11:20 71 18 95 Nasal Cannula 09/11/22 11:11 36.8 C 57 L 18 145/67 H 93 Nasal Cannula 09/11/22 10:00 60 09/11/22 10:00 Nasal Cannula 09/11/22 08:00 36.4 C L 63 18 147/72 H 94 Nasal Cannula 09/11/22 04:02 36.7 C 64 18 154/62 H 92 Nasal Cannula 09/11/22 01:14 62 20 92 Nasal Cannula 09/11/22 00:58 Nasal Cannula O2 Flow Rate 09/11/22 11:20 3 09/11/22 11:11 3 09/11/22 10:00 09/11/22 10:00 2 09/11/22 08:00 4 09/11/22 04:02 4 09/11/22 01:14 2 09/11/22 00:58 (1) CHF (congestive heart failure) Heart failure chronicity: acute Heart failure type: unspecified Qualified Code(s): I50.9 - Heart failure, unspecified
--- NOTE | 2022-09-11 14:10 | Pharmacy Report ---
Pharmacy Glycemic Sign Off Nt - Date of Service September 11, 2022 - Assessment & Plan ASSESSMENT: * Pharmacy was consulted by Charo Wilkins PA-C, on 09/11/22 for glycemic control and to write orders per [facility] inpatient glycemic control protocol. * Major changes made by pharmacy to antidiabetic regimen include: * Adding correctional/prandial insulin coverage * Patient has received 1 units of insulin so far for adequate glycemic control * BSGs ranging 122-141 mg/dl * Do not anticipate further changes in patient status that would quickly deteriorate glycemic control (i.e. patient to be NPO for upcoming procedure, steroids tapering, starting tube feedings, etc). PLAN FOR INPATIENT GLYCEMIC CONTROL: No changes needed to current regimen. * No basal insulin required * Continue NovoLog per scale ACHS/Q6hrs while NPO * Goal range = 120-160 mg/dl * CF = 30 mg/dl/unit * No carb coverage necessary * Pharmacy is signing off of glycemic consult and will no longer be making adjustments to inpatient regimen. Please feel free to re-consult if needed. Thank you.
[2022-09-11] MEDS: FUROSEMIDE 40 MG/4 ML VIAL IV SCH (17:08)
--- NOTE | 2022-09-11 18:21 | Billing Data ---
Date of Service September 11, 2022 Coding Level of Care Code 61895 SUB INP/OBS CARE
[2022-09-12 06:52] LABS: Hematocrit (blood only) 29.9 % (37.0-47.0); Hemoglobin 9.1 g/dl (12.0-16.0); Mean Corpuscular Hgb Conc 30.4 g/dL (32.0-36.0); Mean Corpuscular Volume 95.2 fL (80.0-100.0); Mean Platelet Volume 10.7 fL (9.4-12.4); Platelet Count 149 K/uL (130-400); RDW Coefficient of Variation 13.7 % (11.5-14.5); RDW Standard Deviation 47.8 fL (36.4-46.3); Red Blood Count 3.14 M/uL (4.20-5.40); White Blood Count 7.23 K/ul (4.8-10.8)
[2022-09-12 07:10] LABS: BUN Creatinine Ratio 23.4 (10-20); Calcium 9.4 mg/dl (8.6-10.3); Creatinine Clr Calc Pharmacy 28.7 ml/min; Est GFR (African American) 32.2 ml/min; Est GFR (Non-African American) 27.8 ml/min; Potassium 4.9 mmol/L (3.5-5.1)
[2022-09-12] MEDS: ALBUT/IPRATROP 3MG/0.5MG NEB 3 ML VIAL NEB SCH ×4 (07:11→19:46)
[2022-09-12] MEDS: INSULIN ASPART PER UNIT CHARGE SC SCH ×4 (07:33→20:46)
[2022-09-12] MEDS: APIXABAN 5 MG TABLET PO SCH ×2 (08:21→20:49)
[2022-09-12] MEDS: ATENOLOL 50 MG TABLET PO SCH (08:21)
[2022-09-12] MEDS: FUROSEMIDE 40 MG/4 ML VIAL IV SCH (08:21)
[2022-09-12] MEDS: LOSARTAN POTASSIUM 25 MG TAB PO SCH (08:21)
[2022-09-12] MEDS: ISOSORBIDE MONO EXTENDED REL 30 MG TABCR PO SCH (08:22)
[2022-09-12] MEDS: amLODIPine BESYLATE 5 MG TAB PO SCH (08:22)
[2022-09-12] MEDS: UMECLIDINIUM/VILANTEROL 62.5/25MCG 7 PUFFS/INHALER INH SCH (08:29)
[2022-09-12] MEDS: FLUTICASONE FUROATE 100MCG 14 PUFFS/INHALER INH SCH (08:29)
--- NOTE | 2022-09-12 09:47 | Hospitalist Progress Note ---
Date of Service September 12, 2022 Assessment & Plan (1) CHF (congestive heart failure): Plan: (1) Congestive heart failure: Chronic and unstable, BNP > 3,000. Maintain lasix 40 mg IV BID given her low urine output and hypervolemic status on exam. Suspect her elevated Cr at 1.67 is cardiorenal in nature. Echo shows no significant change from 08/06/22: normal systolic function, akinesis of distal inferior wall, EF 50-55%, moderate valvular aortic stenosis, moderate MR and TR ECG: ventricularly paced rhythm (vent rate 78, atrial rate 81) (2) COPD with asthma: 3L nasal cannula, maintain O2 saturation in the low 90s [facility] or hospital equivalent Duoneb treatments Ellipta May need 2 step prior to discharge if may need increased O2 with exertion (3) Hypertension: - Losartan 25mg, Isosorbide 30mg, Atenolol 50mg, amlodipine 10mg (4) Hyperlipidemia: Continue Simvastatin (5) Chronic kidney disease, stage 3: Cr elevated to 1.67, suspect cardio-renal component Patient follows with nephrology Monitor Is and Os (6) Atrial fibrillation: A Fib with hx of multiple DVTs on Xarelto [id number] score of 7 (7) Diabetes mellitus, type 2: Carb consistent diet Sitagliptin on hold ISS while inpatient Admission and Anticipated Discharge Date Admission Date: September 10, 2022 Supervising Physician Co-Signing Physician Notes I personally examined the patient and verified all gamez points of history and exam, discussed case, and agree with decision making with Kyle Posey MS4. legs still swollen, most of today was feeling about the same, since last dose of lasix starting to feel like breathing improving a little. vitals noted breathing unlabored but lungs show scattered rales throughout (laying flat when i see her) b/l diffuse LE edema Acute on chronic diastolic CHF (acute on chronic HFpEF)likely due to sodium intake with chicken noodle soup. Diuresis, follow closely. YUMIKO is probably poor forward flow from CHF decompensation - right now suspect worse due to lack of much significant diuresis yet - obviously continue to follow closely. otherwise as above Zuly Chawla is joined by her son Mckay today who drove here from [place]. Overnight she woke frequently with the urge to urinate, but did she did not think she produced a large amount of urine. She is still SOB, no worse than yesterday. She gets temporarily relief after her breathing treatments. She has not had any repeat episodes of vomiting. No fevers, chills, dysuria. She feels constipated. Mckay had questions about her echocardiogram and nutrition which we reviewed together. Review of Systems Review of Systems: All systems reviewed & are unremarkable except as noted in HPI & below Results & Data Results & Data Vital Signs (Past 12 Hours) Vital Signs Temp Pulse Pulse Resp BP Pulse Ox O2 Del Method 09/12/22 07:25 62 20 88 L Nasal Cannula 09/12/22 07:02 36.8 C 61 18 148/69 H 91 Nasal Cannula 09/12/22 02:49 36.8 C 60 18 145/71 H 92 Nasal Cannula 09/11/22 23:20 60 09/11/22 23:01 36.7 C 60 18 166/68 H 91 Nasal Cannula O2 Flow Rate 09/12/22 07:25 2 09/12/22 07:02 09/12/22 02:49 09/11/22 23:20 09/11/22 23:01 (1) CHF (congestive heart failure) Heart failure chronicity: acute Heart failure type: unspecified Qualified Code(s): I50.9 - Heart failure, unspecified
[2022-09-12] MEDS ORDERED: FUROSEMIDE 40 MG/4 ML VIAL IV ONE (14:20)
[2022-09-12] MEDS ORDERED: FUROSEMIDE 40 MG/4 ML VIAL IV SCH (17:00)
--- NOTE | 2022-09-12 18:49 | Billing Data ---
Date of Service September 12, 2022 Coding Level of Care Code 77815 SUB INP/OBS CARE
[2022-09-12] MEDS: SIMVASTATIN 20 MG TAB PO SCH (20:49)
[2022-09-12] MEDS: ZOLPIDEM TARTRATE 5 MG TAB PO PRN (20:52)
[2022-09-13 06:23] LABS: BUN Creatinine Ratio 24.3 (10-20); Calcium 9.2 mg/dl (8.6-10.3); Est GFR (African American) 28.5 ml/min; Est GFR (Non-African American) 24.6 ml/min; Magnesium 2.1 mg/dl (1.7-2.4); Potassium 5.1 mmol/L (3.5-5.1)
[2022-09-13 06:33] LABS: Hematocrit (blood only) 32.9 % (37.0-47.0); Hemoglobin 10.1 g/dl (12.0-16.0); Mean Corpuscular Hemoglobin 29.6 pg (25.0-34.0); Mean Corpuscular Hgb Conc 30.7 g/dL (32.0-36.0); Mean Corpuscular Volume 96.5 fL (80.0-100.0); Mean Platelet Volume 11.2 fL (9.4-12.4); Platelet Count 129 K/uL (130-400); RDW Coefficient of Variation 13.8 % (11.5-14.5); RDW Standard Deviation 48.6 fL (36.4-46.3); Red Blood Count 3.41 M/uL (4.20-5.40); White Blood Count 8.14 K/ul (4.8-10.8)
[2022-09-13 06:35] LABS: Basophils # (auto) 0.04 K/uL (0-0.2); Basophils % (auto) 0.5 %; Eosinophils # (auto) 0.11 K/uL (0-0.50); Eosinophils % (auto) 1.4 %; Immature Granulocytes # (auto) 0.05 K/uL (0.01-0.20); Immature Granulocytes % (auto) 0.6 %; Lymphocytes # (auto) 0.81 K/uL (1.2-3.4); Monocytes # (auto) 0.79 K/uL (0.11-0.59); Monocytes % (auto) 9.7 %; Neutrophils # (auto) 6.34 K/uL (1.40-6.50); Neutrophils % (auto) 77.8 %; Platelet Estimate Normal (Normal); RBC Morphology Unremarkable
[2022-09-13] MEDS: ALBUT/IPRATROP 3MG/0.5MG NEB 3 ML VIAL NEB SCH ×4 (06:57→19:30)
[2022-09-13] MEDS ORDERED: FUROSEMIDE 40 MG/4 ML VIAL IV SCH (08:00)
[2022-09-13] MEDS: INSULIN ASPART PER UNIT CHARGE SC SCH ×4 (08:38→21:15)
[2022-09-13] MEDS: APIXABAN 5 MG TABLET PO SCH (09:19)
[2022-09-13] MEDS: UMECLIDINIUM/VILANTEROL 62.5/25MCG 7 PUFFS/INHALER INH SCH (09:21)
[2022-09-13] MEDS: ISOSORBIDE MONO EXTENDED REL 30 MG TABCR PO SCH (09:21)
[2022-09-13] MEDS: FLUTICASONE FUROATE 100MCG 14 PUFFS/INHALER INH SCH (09:21)
[2022-09-13] MEDS: amLODIPine BESYLATE 5 MG TAB PO SCH (09:22)
[2022-09-13] MEDS: LOSARTAN POTASSIUM 25 MG TAB PO SCH (09:22)
[2022-09-13] MEDS: ATENOLOL 50 MG TABLET PO SCH (09:22)
--- NOTE | 2022-09-13 09:39 | Hospitalist Progress Note ---
Date of Service September 13, 2022 Assessment & Plan (1) CHF (congestive heart failure): Plan: #Congestive heart failure: Chronic and unstable, BNP > 3,000 on admission and on repeat testing Repeat CXR today: improvement in pulmonary edema with worsening pulmonary effusi ons, R worse than L. Current O2 requirement is 3L, at home she is on 2L. Can assess for resolution in coming days. If refractory can proceed with thoracentesis. Holding Eliquis for now. Lasix 40mg IV BID held to do worsening renal function Echo shows no significant change from 08/06/22: normal systolic function, akinesis of distal inferior wall, EF 50-55%, moderate valvular aortic stenosis, moderate MR and TR ECG: ventricularly paced rhythm (vent rate 78, atrial rate 81) #Chronic kidney disease, stage 3: S/p nephrectomy in 1997 for renal malignancy Cr elevated to 1.85 from 1.67, suspect some cardio-renal component Hold Lasix Patient follows with nephrology Monitor Is and Os #COPD with asthma: 3L nasal cannula, saturations in the 90s [facility] or hospital equivalent Duoneb treatments Ellipta May need 2 step prior to discharge if may need increased O2 with exertion #Hypertension: - Losartan 25mg, Isosorbide 90mg, Atenolol 50mg, amlodipine 10mg #Hyperlipidemia: Continue Simvastatin 20mg #Atrial fibrillation: A Fib with hx of multiple DVTs on Xarelto [id number] score of 7 #Diabetes mellitus, type 2: Carb consistent diet Sitagliptin on hold ISS while inpatient Admission and Anticipated Discharge Date Admission Date: September 10, 2022 Supervising Physician Co-Signing Physician Notes I personally examined the patient and verified all gamez points of history and exam, discussed case, and agree with decision making with Kyle Posey MS4 and Dr Carranza. Breathing feels probably a little better than yesterday, still not back to baseline. Son present, updated. Vitals noted, in general she is awake and alert pleasant no distress. HEENT normocephalic atraumatic mucous membranes moist. Breathing unlabored no accessory muscle use good effort. Chest x-ray shows improved pulmonary edema but bilateral left greater than right pleural eff usions. Acute on chronic diastolic CHF (acute on chronic HFpEF)likely due to sodium intake with chicken noodle soup. Pulmonary edema appears to be clearing, but effusions are probably now what is causing her shortness of breath. Little bit of a difficult situation given that she is showing stable vitals on her home oxygen requirement, but still symptomatic beyond what her normal breathing is, and is quite frail. I suspect that the effusions are causing some symptoms, but there is no emergent need for thoracentesis, at the same time given that she may require it and she is on Eliquiswe will hold this for now. Follow her daily for the next few daysif her symptoms improve enough to be tolerable, we can continue with watchful waiting, if not, may need thoracentesis. She and her son expressed good understanding of this. AKIinitially from CHF, now appears to be dry related to diuresisand given that most of her shortness of breath now appears to be due to the effusionswe will hold diuretics and follow. Certainly if she shows any evidence of recurrent pulmonary edema we can resume. DVT prophylaxiswhile Eliquis is on hold, will utilize heparin subcu otherwise as above Subjective Ms. Ch SOB is about the same. Her legs continue to be swollen and mildly painful. Her socks make her feet uncomfortable. She does not have any fevers, chills, dysuria, or diarrhea. She is constipated. Review of Systems Review of Systems: All systems reviewed & are unremarkable except as noted in HPI & below Physical Exam Physical Exam: sitting upright in hospital bed, NAD, appears fatigued, on nasal cannula Respiratory: no accessory muscle use during conversation; coarse breath sounds bilaterally Cardiovascular: regular rate and rhythm, systolic murmur Lymphatic: pitting edema bilaterally, stable from prior exam; wearing compression stockings Results & Data Results & Data Vital Signs (Past 12 Hours) Vital Signs Temp Pulse Pulse Resp BP Pulse Ox O2 Del Method 09/13/22 08:23 62 09/13/22 08:23 Nasal Cannula 09/13/22 07:41 36.7 C 63 20 160/70 H 98 Nasal Cannula 09/13/22 06:59 61 20 94 Nasal Cannula 09/12/22 22:00 60 09/12/22 21:30 Nasal Cannula 09/13/22 03:00 36.8 C 60 16 151/61 H 90 Nasal Cannula 09/12/22 23:00 36.8 C 60 20 136/75 94 Nasal Cannula O2 Flow Rate 09/13/22 08:23 09/13/22 08:23 3 09/13/22 07:41 4.0 09/13/22 06:59 4 09/12/22 22:00 09/12/22 21:30 3 09/13/22 03:00 4 09/12/22 23:00 4 Laboratory Results 09/13/22 09/13/22 09/13/22 07:20 05:39 05:39 WBC 8.14 RBC 3.41 L Hgb 10.1 L Hct 32.9 L MCV 96.5 MCH 29.6 MCHC 30.7 L RDW Std Deviation 48.6 H RDW Coeff of Stephane 13.8 Plt Count 129 L MPV 11.2 Immature Gran % (Auto) 0.6 Neut % (Auto) 77.8 Lymph % (Auto) 10.0 [place] % (Auto) 9.7 Eos % (Auto) 1.4 Baso % (Auto) 0.5 Neut # (Auto) 6.34 Lymph # (Auto) 0.81 L [place] # (Auto) 0.79 H Eos # (Auto) 0.11 Baso # (Auto) 0.04 Immature Gran # (Auto) 0.05 Platelet Estimate Normal RBC Morphology Unremarkable Sodium 136 Potassium 5.1 Chloride 99 Carbon Dioxide 33 H Anion Gap 4 BUN 45 H Creatinine 1.85 H Est Cr Clr Drug Dosing 26.0 Est GFR ( Amer) 28.5 Est GFR (Non-Af Amer) 24.6 BUN/Creatinine Ratio 24.3 H Glucose 137 H POC Glucose 132 H Calcium 9.2 Magnesium 2.1 09/12/22 09/12/22 09/12/22 20:16 16:18 11:21 WBC RBC Hgb Hct MCV MCH MCHC RDW Std Deviation RDW Coeff of Stephane Plt Count MPV Immature Gran % (Auto) Neut % (Auto) Lymph % (Auto) [place] % (Auto) Eos % (Auto) Baso % (Auto) Neut # (Auto) Lymph # (Auto) [place] # (Auto) Eos # (Auto) Baso # (Auto) Immature Gran # (Auto) Platelet Estimate RBC Morphology Sodium Potassium Chloride Carbon Dioxide Anion Gap BUN Creatinine Est Cr Clr Drug Dosing Est GFR ( Amer) Est GFR (Non-Af Amer) BUN/Creatinine Ratio Glucose POC Glucose 152 H 116 H 133 H Calcium Magnesium (1) CHF (congestive heart failure) Heart failure chronicity: acute Heart failure type: unspecified Qualified Code(s): I50.9 - Heart failure, unspecified
--- NOTE | 2022-09-13 10:23 | XRay Report ---
XR chest 2V PA/lateral CLINICAL HISTORY: Hypoxia. COMPARISON STUDY: Chest radiograph September 10, 2022. FINDINGS: Left subclavian pacer remains in place. There is cardiomegaly. No pneumothorax. Moderate le ft and [id number] right pleural effusions are unchanged. Pulmonary edema has mildly improved. IMPRESSION: Cardiomegaly. Mild interval improvement in pulmonary edema with persistent bilateral ple ural effusions. ACT 112: Negative or not required by law. Electronically signed by: Jorgito Oseguera M.D. 09/13/2022 10:22 AM
[2022-09-13] MEDS: POLYETHYLENE (MIRALAX) 17 GM PACK PO SCH ×2 (10:39→21:15)
--- NOTE | 2022-09-13 15:54 | Billing Data ---
Date of Service September 13, 2022 Coding Level of Care Code 64122 SUB INP/OBS CARE
[2022-09-13] MEDS ORDERED: ONDANSETRON INJ 2 MG/ML 2 ML VIAL IV STA (17:20)
[2022-09-13] MEDS: SIMVASTATIN 20 MG TAB PO SCH (21:15)
[2022-09-13] MEDS: HEPARIN SOD 5,000 UNIT/0.5 ML VIAL SQ SCH (21:15)
[2022-09-13] MEDS: ZOLPIDEM TARTRATE 5 MG TAB PO PRN (21:18)
[2022-09-14 06:46] LABS: Hematocrit (blood only) 29.4 % (37.0-47.0); Hemoglobin 8.9 g/dl (12.0-16.0); Mean Corpuscular Hemoglobin 29.5 pg (25.0-34.0); Mean Corpuscular Hgb Conc 30.3 g/dL (32.0-36.0); Mean Corpuscular Volume 97.4 fL (80.0-100.0); Platelet Count 151 K/uL (130-400); RDW Coefficient of Variation 13.7 % (11.5-14.5); RDW Standard Deviation 48.7 fL (36.4-46.3); Red Blood Count 3.02 M/uL (4.20-5.40); White Blood Count 7.31 K/ul (4.8-10.8)
--- NOTE | 2022-09-14 06:46 | Hospitalist Progress Note ---
Date of Service September 14, 2022 Assessment & Plan (1) CHF (congestive heart failure): Plan: Cammy Zhu is a 82 y/o female with an extensive PMHx including CAD ([place] in 1992), permanent atrial fibrillation, multiple prior DVTs on Xarelto, diastolic CHF, tachycardia-bradycardia syndrome (May 2016, pacemaker), DM 2, COPD, asthma, hyperlipidemia, and hypertension who presented to the ER with increased shortness of breathing and increased oxygen requirement found to have bilateral pulmonary effusions and pulmonary edema stable on 3-4L NC. #HFpEF 50-55% Chronic and unstable, BNP > 3,000 on admission and on repeat testing. CXR with bilateral pulmonary effusions R>L. No indication for emergent thoracentesis. Could consider if patient continues to have increased oxygen requirement and SOB. Patient on Eliquis as home. On SQ heparin as there is the possibility of CT placement during this admission. Most Recent ECHO 09/11/22 (unchanged from prior exam): normal systolic function, akinesis of distal inferior wall, EF 50-55%, moderate valvular aortic stenosis, moderate MR and TR EKG: ventricularly paced [] AM CXR #CKD III s/p nephrectomy 1997 for renal malignancy Cr downtrending. Baseline unclear. Would recommend f/u with nephrology outpatient. [] Is and Os [] Hold Lasix for now #COPD with asthma: Patient on 2L NC at baseline. Increased oxygen requirement 3-4L during this admission. [] Goal O2Sat 88-92 [] DuoNebs [] Trilegy [] Ellipta [] 2 Step prior to d/c #Constipation #Nausea Patient constipated. Will increase Miralax to 34 g BID. Intermittent nausea during hospital stay likely in the setting of constipation. Treated with zofran as appropriate. #Hypertension: Losartan 25mg, Isosorbide 90mg, Atenolol 50mg, amlodipine 10mg #Hyperlipidemia: Continue Simvastatin 20mg #Atrial fibrillation: A Fib with hx of multiple DVTs on Xarelto. [id number] score of 7. On Eliquis at home. SQ Heparin while inpatient. #Diabetes mellitus, type 2: On sitagliptin at home. Resume on discharge. [] carb consistent diet [] ISS Code status: full DVT ppx: SQ heparin FENGI: carb consistent, low sodium, heart healthy Dispo: PCU, 2 STEP prior to d/c Admission and Anticipated Discharge Date Admission Date: September 10, 2022 Supervising Physician Co-Signing Physician Notes I personally examined the patient and verified all gamez points of history and exam, discussed case, and agree with decision making with Dr Santiago. Breathing feels about the same, not really better yet. Had some indigestion and nausea with breakfast. Has not had a bowel movement in several days. Vitals noted, in general she is sitting in the chair, no distress. HEENT normocephalic atraumatic mucous membranes moist. Lungs diminished/essentially absent lung sounds at the bases, a faint area of rales bilaterally, clear lungs mid and upper. Abdomen is soft but moderately distended nontender. Acute on chronic diastolic CHF (acute on chronic HFpEF)likely due to sodium intake with chicken noodle soup. Pulmonary edema appears to have cleared (I suspect rales are from compressive atelectasis from effusions), but dyspnea remainsappears predominantly due to effusionsat the same time, given that there is no emergency for thoracentesis, we discussed watchful waiting for a few days (while her anticoagulation is on hold)and then if she persists with symptoms, can entertain thoracentesis once she has been off of her anticoagulation long enough. At the same time, if her symptoms improve enough, then we may be able to forego the procedure and continue with watchful waiting. Given that she shows some evidence of atelectasis add incentive spirometry, given that she is fairly constipated with a bit of a bloated abdomen that may be impinging on inspiration somebowel regimen. While neither of these measures would clear her pleural effusions, if it improves her breathing enough that she is no longer symptomatic (given that she is stable and on her baseline amount of oxygen otherwise), this might also allow us to forego thoracentesis. AKIinitially from CHF, now appears to be dry related to diuresisand given that most of her shortness of breath now appears to be due to the effusionscontinue to hold diuretics, continue to follow. If she shows any ongoing evidence of pulmonary edema we can resume. DVT prophylaxiswhile Eliquis is on hold, utilizing heparin subcu otherwise as above, son present at the bedsideupdated to the best my ability a nd answered all questions. Subjective Reports SOB is improving. Patient notes nausea this AM. No vomiting. Decreased appetite. No abdominal pain. No f/c/CP. Review of Systems Review of Systems: See HPI Physical Exam Physical Exam: Gen: ill, non-toxic appearing female on 4 L NC HEENT: AT NC Resp: coarse breath sounds bilaterally, exam limited. Patient speaking in full sentences CV: notable 3/6 crescendo decrescendo murmur - regular rate and rhythm Abd: soft, non distended, non-tender, no peritoneal signs Skin: no rashes or bruising Neuro: alert and oriented Psych: appropriate mood and affect Results & Data Results & Data Vital Signs (Past 12 Hours) Vital Signs Temp Pulse Pulse Resp BP Pulse Ox O2 Del Method 09/13/22 21:59 61 09/14/22 03:00 36.8 C 60 18 140/57 L 91 Nasal Cannula 09/13/22 21:15 Nasal Cannula 09/13/22 22:50 36.9 C 64 18 134/71 91 Nasal Cannula 09/13/22 19:30 18 93 Nasal Cannula 09/13/22 19:01 36.5 C 64 18 150/56 H 90 Nasal Cannula O2 Flow Rate 09/13/22 21:59 09/14/22 03:00 3 09/13/22 21:15 3 09/13/22 22:50 3 09/13/22 19:30 4 09/13/22 19:01 3 Laboratory Results 09/14/22 06:08 09/14/22 06:08 Diagnostic Findings Chest X-Ray 09/13/22 08:48 XR chest 2V PA/lateral CLINICAL HISTORY: Hypoxia. COMPARISON STUDY: Chest radiograph September 10, 2022. FINDINGS: Left subclavian pacer remains in place. There is cardiomegaly. No pneumothorax. Moderate left and [id number] right pleural effusions are unchanged. Pulmonary edema has mildly improved. IMPRESSION: Cardiomegaly. Mild interval improvement in pulmonary edema with persistent bilateral pleural effusions. Resident Activity Tracking Resident Involvement: Resident Care Provided Care Provided: Adult Hospital Medicine (1) CHF (congestive heart failure) Heart failure chronicity: acute Heart failure type: unspecified Qualified Code(s): I50.9 - Heart failure, unspecified
[2022-09-14] MEDS: ALBUT/IPRATROP 3MG/0.5MG NEB 3 ML VIAL NEB SCH ×4 (07:01→19:14)
[2022-09-14 07:13] LABS: BUN Creatinine Ratio 30.4 (10-20); Calcium 9.1 mg/dl (8.6-10.3); Est GFR (African American) 31.3 ml/min; Magnesium 2.1 mg/dl (1.7-2.4); Potassium 5.2 mmol/L (3.5-5.1)
[2022-09-14] MEDS: INSULIN ASPART PER UNIT CHARGE SC SCH ×4 (07:47→22:47)
[2022-09-14] MEDS: UMECLIDINIUM/VILANTEROL 62.5/25MCG 7 PUFFS/INHALER INH SCH (08:18)
[2022-09-14] MEDS: amLODIPine BESYLATE 5 MG TAB PO SCH (08:19)
[2022-09-14] MEDS: ISOSORBIDE MONO EXTENDED REL 30 MG TABCR PO SCH (08:19)
[2022-09-14] MEDS: FLUTICASONE FUROATE 100MCG 14 PUFFS/INHALER INH SCH (08:19)
[2022-09-14] MEDS: LOSARTAN POTASSIUM 25 MG TAB PO SCH (08:20)
[2022-09-14] MEDS: POLYETHYLENE (MIRALAX) 17 GM PACK PO SCH ×3 (08:20→21:25)
[2022-09-14] MEDS: ATENOLOL 50 MG TABLET PO SCH (08:20)
[2022-09-14] MEDS ORDERED: ONDANSETRON INJ 2 MG/ML 2 ML VIAL IV STA (09:06)
[2022-09-14] MEDS: HEPARIN SOD 5,000 UNIT/0.5 ML VIAL SQ SCH ×2 (09:15→21:24)
--- NOTE | 2022-09-14 15:36 | Billing Data ---
Date of Service September 14, 2022 Coding Level of Care Code 88491 SUB INP/OBS CARE
[2022-09-14] MEDS: SIMVASTATIN 20 MG TAB PO SCH (21:25)
[2022-09-14] MEDS: ZOLPIDEM TARTRATE 5 MG TAB PO PRN (21:48)
[2022-09-14] MEDS: ACETAMINOPHEN 325 MG TAB PO PRN (23:46)
--- NOTE | 2022-09-15 06:54 | Hospitalist Progress Note ---
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 #Urinary Retention #Electrolyte abnormalities Acute urinary retention. Likely in the setting of constipation. Bladder scan 420 mL. Creatinine bump with worsening electrolyte derangements. UA reflex with lytes. Booker placement for bladder decompression and accurate Is and Os. [] held AM losartan d/t K 5.6 [] Booker [] stricts Is and Os [] f/u UA and lytes - consistent with pre-renal [] PM BMP #Constipation #Nausea Patient constipated. Will increase Miralax to 34 g BID. Intermittent nausea duri ng hospital stay likely in the setting of constipation. Treated with zofran as appropriate. #HFpEF 50-55% Chronic and unstable, BNP > 3,000 on admission and on repeat testing. CXR with bilateral pulmonary effusions R>L. No indication for emergent thoracentesis. Could consider if patient continues to have increased oxygen requirement and SOB. Patient on Eliquis as home. On SQ heparin as there is the possibility of CT placement vs thoracentesis during this admission. Most Recent ECHO 09/11/22 (unchanged from prior exam): normal systolic function, akinesis of distal inferior wall, EF 50-55%, moderate valvular aortic stenosis, moderate MR and TR EKG: ventricularly paced [] AM CXR - upon my read lateral view shows worsening congestion/edema, PA appears similar to 09/13 image [] pulm consult for possible tap #CKD III s/p nephrectomy 1997 for renal malignancy Cr bumped this AM. Baseline unclear. [] Is and Os [] Hold Lasix for now #COPD with asthma: Patient on 2L NC at baseline. Increased oxygen requirement 3-5L during this admission. [] Goal O2Sat 88-92 [] DuoNebs [] Trelegy (ICS/LAMA/LABA) - fluticasone, umeclidinium, vilanterol [] 2 Step prior to d/c #Hypertension: Losartan 25mg, Isosorbide 90mg, Atenolol 50mg, amlodipine 10mg #Hyperlipidemia: Continue Simvastatin 20mg #Atrial fibrillation: A Fib with hx of multiple DVTs on Xarelto. [id number] score of 7. On Eliquis at home. SQ Heparin while inpatient. #Diabetes mellitus, type 2: On sitagliptin at home. Resume on discharge. [] carb consistent diet [] ISS Code status: full DVT ppx: SQ heparin FENGI: carb consistent, low sodium, heart healthy Dispo: PCU, 2 STEP prior to d/c Admission and Anticipated Discharge Date Admission Date: September 10, 2022 Supervising Physician Co-Signing Physician Notes I personally examined the patient and verified all gamez points of history and exam, discussed case, and agree with decision making with Dr Santiago. Had a hard time voidingFoley needed to be placed. Still no bowel movement. Breathing about the same. Vitals noted, in general she is sitting in the chair, no distress. HEENT normocephalic atraumatic mucous membranes moist. Lungs diminished/essentially absent lung sounds at the bases, a faint area of rales bilaterally, clear lungs mid and upperexam very similar to yesterday. Booker draining clear yellow urine. Acute on chronic diastolic CHF (acute on chronic HFpEF)likely due to sodium intake with chicken noodle soup. Pulmonary edema appears to have cleared (I suspect rales are from compressive atelectasis from effusionseducated on incentive spirometryshe was somewhat struggling to use appropriately although at least she was using a lot), but dyspnea remainsappears predominantly due to effusionssince we have diuresed, utilized incentive spirometry, working on her bowels, getting her moving, etc.if she still really not feeling betterwe will ask pulmonary to evaluate for possible thoracentesis. Eliquis has been on hold since her morning dose 09/13. AKIinitially from CHF, now appears to be dry related to diuresisand given that most of her shortness of breath now appears to be due to the effusionscontinue to hold diuretics, continue to follow. Somewhat worsebut given that she has likely had poor p.o. intake from her constipation/etc.not surprising. Hyperkalemiabowel regimen should help with this as well. Continue to follow closely DVT prophylaxiswhile Thierry is on hold, utilizing heparin subcu otherwise as above, son present at the bedsideupdated to the best my ability and answered all questions. Disposition plan will be home with her son once her breathing is doing better Subjective Reports SOB is improving. No CP/f/c. Unable to pee this AM. Review of Systems Review of Systems: See HPI Physical Exam Physical Exam: Gen: non-toxic appearing female on 5 L NC HEENT: AT NC Resp: coarse breath sounds bilaterally, exam limited. Patient speaking in full sentences CV: notable 3/6 crescendo decrescendo murmur - regular rate and rhythm Abd: soft, non distended, non-tender, no peritoneal signs Skin: erythematous rash with satellite lesions under the panus Neuro: alert and oriented Psych: appropriate mood and affect Results & Data Results & Data Vital Signs (Past 12 Hours) Vital Signs Temp Pulse Pulse Resp BP Pulse Ox O2 Del Method 09/14/22 23:30 60 09/15/22 03:00 36.4 C L 63 18 144/58 H 96 Nasal Cannula 09/15/22 00:14 Nasal Cannula 09/14/22 22:59 36.3 C L 71 22 167/88 H 91 Nasal Cannula 09/14/22 19:15 18 94 Nasal Cannula 09/14/22 19:00 36.5 C 67 18 137/52 L 91 Nasal Cannula O2 Flow Rate 09/14/22 23:30 09/15/22 03:00 5 09/15/22 00:14 4 09/14/22 22:59 5 09/14/22 19:15 5 09/14/22 19:00 5 Laboratory Results 09/15/22 06:21 09/15/22 06:21 Resident Activity Tracking Resident Involvement: Resident Care Provided Care Provided: Adult Hospital Medicine (1) CHF (congestive heart failure) Heart failure chronicity: acute Heart failure type: unspecified Qualified Code(s): I50.9 - Heart failure, unspecified
[2022-09-15 07:00] LABS: Hematocrit (blood only) 30.4 % (37.0-47.0); Hemoglobin 9.3 g/dl (12.0-16.0); Mean Corpuscular Hemoglobin 29.5 pg (25.0-34.0); Mean Corpuscular Hgb Conc 30.6 g/dL (32.0-36.0); Mean Corpuscular Volume 96.5 fL (80.0-100.0); Mean Platelet Volume 10.7 fL (9.4-12.4); Platelet Count 174 K/uL (130-400); RDW Coefficient of Variation 13.7 % (11.5-14.5); RDW Standard Deviation 47.9 fL (36.4-46.3); Red Blood Count 3.15 M/uL (4.20-5.40); White Blood Count 5.94 K/ul (4.8-10.8)
[2022-09-15] MEDS: ALBUT/IPRATROP 3MG/0.5MG NEB 3 ML VIAL NEB SCH ×4 (07:06→19:04)
[2022-09-15 07:15] LABS: BUN Creatinine Ratio 29.9 (10-20); Creatinine Clr Calc Pharmacy 23.9 ml/min; Est GFR (African American) 25.8 ml/min; Est GFR (Non-African American) 22.2 ml/min; Potassium 5.6 mmol/L (3.5-5.1)
[2022-09-15] MEDS: INSULIN ASPART PER UNIT CHARGE SC SCH ×4 (07:21→20:30)
[2022-09-15 07:54] LABS: Magnesium 2.1 mg/dl (1.7-2.4); Phosphorus 4.2 mg/dl (2.5-4.9)
[2022-09-15] MEDS: ATENOLOL 50 MG TABLET PO SCH (08:18)
[2022-09-15] MEDS: FLUTICASONE FUROATE 100MCG 14 PUFFS/INHALER INH SCH (08:18)
[2022-09-15] MEDS: amLODIPine BESYLATE 5 MG TAB PO SCH (08:18)
[2022-09-15] MEDS: UMECLIDINIUM/VILANTEROL 62.5/25MCG 7 PUFFS/INHALER INH SCH (08:19)
[2022-09-15] MEDS: ISOSORBIDE MONO EXTENDED REL 30 MG TABCR PO SCH (08:19)
[2022-09-15] MEDS: POLYETHYLENE (MIRALAX) 17 GM PACK PO SCH ×2 (08:20→20:41)
[2022-09-15] MEDS: HEPARIN SOD 5,000 UNIT/0.5 ML VIAL SQ SCH ×2 (08:20→20:41)
[2022-09-15] MEDS: LOSARTAN POTASSIUM 25 MG TAB PO SCH (08:26)
[2022-09-15] MEDS ORDERED: NYSTATIN POWDER 15GM BTL EXT PRN (09:04)
[2022-09-15 10:12] LABS: Appearance Urine Clear (Clear); Bilirubin Urine Negative (Negative); Blood Urine Negative (Negative); Color Urine Dark Yellow; Glucose Urine UA Negative (Negative); Ketones Urine Negative (Negative); Leukocyte Esterase Urine Negative (Negative); Nitrite Urine Negative (Negative); Protein Urine Negative (Negative); Specific Gravity Urine 1.016 (1.000-1.030); Urobilinogen Urine Negative (Negative)
--- NOTE | 2022-09-15 10:24 | XRay Report ---
XR chest 2V PA/lateral CLINICAL HISTORY: pleural effusions worsening oxygenation status TECHNIQUE: 2 views of the chest were obtained. Comparison: Comparison is made to chest radiograph 09/13/2022 FINDINGS: Dual lead pacemaker is seen. Cardiomegaly is noted. There is prominence and cephalization of the vasc ulature with Tessa B lines seen. Moderate left and small right pleural effusions. IMPRESSION: 1. Cardiomegaly and moderate pulmonary edema, essentially stable from prior exam. 2. Bilateral pleural effusions are unchanged from prior exam. ACT 112: Negative or not required by law. Electronically signed by: Dustin Danielson M.D. 09/15/2022 10:22 AM
[2022-09-15] MEDS ORDERED: GLYCERIN ADULT 12 SUPP/BOX SUPP PR PRN (14:38)
[2022-09-15 15:06] LABS: Creatinine Clr Calc Pharmacy 24.1 ml/min; Est GFR (African American) 25.9 ml/min; Est GFR (Non-African American) 22.4 ml/min; Potassium 5.7 mmol/L (3.5-5.1)
--- NOTE | 2022-09-15 15:46 | Billing Data ---
Date of Service September 15, 2022 Coding Level of Care Code 87095 SUB INP/OBS CARE
[2022-09-15] MEDS: SIMVASTATIN 20 MG TAB PO SCH (20:41)
[2022-09-15] MEDS: ZOLPIDEM TARTRATE 5 MG TAB PO PRN (20:42)
[2022-09-16] MEDS ORDERED: ALBUT/IPRATROP 3MG/0.5MG NEB 3 ML VIAL NEB STA (03:51)
[2022-09-16] MEDS ORDERED: FUROSEMIDE INJ 20 MG/2 ML VIAL IV ONE ×3 (04:55→08:30)
[2022-09-16] MEDS ORDERED: MoRPHine SULFATE 2 MG/ML CARP IV STA (06:01)
[2022-09-16] MEDS: ALBUT/IPRATROP 3MG/0.5MG NEB 3 ML VIAL NEB SCH ×4 (06:07→18:59)
--- NOTE | 2022-09-16 07:08 | Hospitalist Progress Note ---
Date of Service September 16, 2022 Assessment & Plan (1) CHF (congestive heart failure): Plan: Cammy Zhu is a 82 y/o female with an extensive PMHx including CAD (AR in 1992), permanent atrial fibrillation, multiple prior DVTs on Xarelto, diastolic CHF, tachycardia-bradycardia syndrome (May 2016, pacemaker), DM 2, COPD, asthma, hyperlipidemia, and hypertension who presented to the ER with increased shortness of breathing and increased oxygen requirement found to have bilateral pleural effusions and pulmonary edema on 3-5L NC with minimal improvement. Urinary Retention, Electrolyte abnormalities Acute urinary retention. Likely in the setting of constipation. Bladder scan 420 mL yesterday and creatinine bump with worsening electrolyte derangements. Booker placement for bladder decompression and accurate Is and Os. -Booker catheter in place -Strict Is and Os -UA and lytes - consistent with pre-renal Hyperkalemia -Potassium of 6.0 this morning (5.6 and 5.7 yesterday) -Hold home Losartan -Nephrology consulted, appreciate recommendations -Will start Patiromer this afternoon -Received 40 IV Lasix today. Output of approximately 500mL from 7am-2pm -Will recheck afternoon BMP -> K of 6.0 again -Daily BMP -Continue monitoring on telemetry Constipation, Nausea Patient constipated but had BM after suppository. Intermittent nausea during hospital stay likely in the setting of constipation. Treated with zofran as appropriate. HFpEF 50-55%, Bilateral Pleural Effusions Chronic and unstable, BNP > 3,000 on admission and on repeat testing. CXR with bilateral pulmonary effusions R>L. No indication for emergent thoracentesis. Could consider if patient continues to have increased oxygen requirement and SOB. Patient on Eliquis as home. On SQ heparin as there is the possibility of CT placement vs thoracentesis during this admission. Most Recent ECHO 09/11/22 (unchanged from prior exam): normal systolic function, akinesis of distal inferior wall, EF 50-55%, moderate valvular aortic stenosis, moderate MR and TR EKG: ventricularly paced -BNP 3578 today -Pulmonary consulted, appreciate recommendations -Plan for right sided thoracentesis tomorrow -Hold Heparin prior to procedure CKD III s/p nephrectomy 1997 for renal malignancy Baseline unclear. -Cr 1.84 today -Monitor Is and Os COPD with asthma Patient on 2L NC at baseline. Increased oxygen requirement 3-5L during this admission. -Goal O2Sat 88-92 -DuoNebs -Trelegy (ICS/LAMA/LABA) - fluticasone, umeclidinium, vilanterol -2 Step prior to d/c -Per pulmonology, BiPAP at night and as needed Hypertension Home meds: Losartan 25mg, Isosorbide 90mg, Atenolol 50mg, amlodipine 10mg -Hold Losartan Hyperlipidemia Continue Simvastatin 20mg Atrial fibrillation A Fib with hx of multiple DVTs on Xarelto. [id number] score of 7. On Eliquis at home. SQ Heparin while inpatient. Diabetes mellitus, type 2 On sitagliptin at home. Resume on discharge. -Carb consistent diet -ISS Code status: full DVT ppx: SQ heparin FENGI: Carb consistent, low sodium, heart healthy, Renal diet Dispo: PCU, 2 STEP prior to d/c Admission and Anticipated Discharge Date Admission Date: September 10, 2022 Supervising Physician Co-Signing Physician Notes ATTESTATION I also saw the patient and confirmed gamez portions of the history and exam. I agree with the impression and plan in the resident documentation, and as ibarra mmarized below. Patient without complaints at present upon our exam. Did have episode of dyspnea overnight which required BiPAP for short period of time. EXAM 159/83, 60, 26, 36.6 Pleasant. No distress. Alert and oriented. Heart regular, positive systolic murmur Respirations nonlabored, upon auscultation, decreased air movement bilaterally. No wheezing, rhonchi appreciated. Bibasilar crackles noted. Positive lower extremity edema DATA Labs Hemoglobin 9.3 Sodium 130, potassium 6.0, BUN 58, creatinine 1.84 Imaging Chest x-ray completed earlier this morning shows cardiomegaly with persistent pulmonary edema, layering pleural effusions with bibasilar consolidation, irregular 4.3 similar opacity in the right upper lung. 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 09/16: Early this morning patient had an increase in O2 requirement from 3L to 6L and later to BiPAP for about 1 hour. She was given some Lasix and a DuoNeb, her breathing did improve and she was moved back down to 4L NC. Patient was seen and examined at bedside. She was resting comfortably and eating her breakfast at time of exam. She denies any chest pain but endorses coughing up some "yellow" phlegm. She had a bowel movement but per nursing has had decreased urine output overnight. Review of Systems Review of Systems: As per above Physical Exam Constitutional: + frail appearing and comfortable; no acute distress Eyes: Anicteric sclerae ENMT: External ears and nose normal. Moist mucous membranes. Respiratory: normal respiratory effort; no respiratory distress Few scattered crackles throughout Cardiovascular: Rate/Rhythm: regular rate and regular rhythm Heart Sounds: + murmur +2 pitting edema of bilateral lower extremities. Gastrointestinal (Abdomen): normal bowel sounds, soft, nontender, no hepatosplenomegaly Skin: no rashes, warm and dry Psychiatric: A+Ox3, euthymic affect Genitourinary: Booker catheter in place. Results & Data Results & Data Vital Signs (Past 12 Hours) Vital Signs Temp Pulse Pulse Resp BP Pulse Ox O2 Del Method 09/16/22 06:09 60 20 99 09/16/22 06:07 61 16 99 BiPAP 09/16/22 04:53 65 32 H 169/91 H 96 Nasal Cannula 09/16/22 04:05 66 28 H 95 Nasal Cannula 09/16/22 03:00 37.0 C 65 18 179/79 H 91 Nasal Cannula 09/15/22 23:00 36.5 C 68 22 170/89 H 90 Nasal Cannula 09/15/22 20:44 Nasal Cannula 09/15/22 19:17 36.9 C 60 18 121/80 96 Nasal Cannula 09/15/22 19:04 76 16 92 Nasal Cannula O2 Flow Rate FiO2 09/16/22 06:09 30 09/16/22 06:07 30 09/16/22 04:53 6 09/16/22 04:05 5 09/16/22 03:00 3 09/15/22 23:00 3 09/15/22 20:44 5 09/15/22 19:17 3.0 09/15/22 19:04 3 Resident Activity Tracking Resident Involvement: Resident Care Provided Care Provided: Adult Hospital Medicine (1) CHF (congestive heart failure) Heart failure chronicity: acute Heart failure type: unspecified Qualified Code(s): I50.9 - Heart failure, unspecified
[2022-09-16 07:28] LABS: Hematocrit (blood only) 29.2 % (37.0-47.0); Hemoglobin 9.3 g/dl (12.0-16.0); Mean Corpuscular Hemoglobin 29.5 pg (25.0-34.0); Mean Corpuscular Hgb Conc 31.8 g/dL (32.0-36.0); Mean Corpuscular Volume 92.7 fL (80.0-100.0); Mean Platelet Volume 10.8 fL (9.4-12.4); Platelet Count 170 K/uL (130-400); RDW Coefficient of Variation 13.7 % (11.5-14.5); RDW Standard Deviation 46.2 fL (36.4-46.3); Red Blood Count 3.15 M/uL (4.20-5.40); White Blood Count 6.38 K/ul (4.8-10.8)
--- NOTE | 2022-09-16 07:35 | XRay Report ---
XR chest 1V portable HISTORY: 82 years-old Female increasing wob acute respiratory failure COMPARISON: Chest radiographs 09/15/2022, 09/13/2022, CTA chest 09/08/2017. TECHNIQUE: AP view of the chest FINDINGS: Cardiac silhouette is enlarged. Left subclavian pacer. Pulmonary vascular congestion with interstitia l coarsening. Pulmonary emphysema. No pneumothorax. Layering pleural effusions with bibasilar consoli dation again noted. Irregular 4.3 cm opacity of the right upper lung. Degenerative changes of the january ulders and spine. IMPRESSION: 1. Cardiomegaly with persistent pulmonary edema. 2. Layering pleural effusions with bibasilar consolidation. 3. Irregular 4.3 cm opacity in the right upper lung. Attention on follow-up recommended. ACT 112: Negative or not required by law. The above report was generated using voice recognition software. It may contain grammatical, syntax o r spelling errors. Electronically signed by: Marko Padron M.D. 09/16/2022 7:34 AM
[2022-09-16 07:48] LABS: BUN Creatinine Ratio 32.1 (10-20); Calcium 9.1 mg/dl (8.6-10.3); Est GFR (African American) 28.1 ml/min; Est GFR (Non-African American) 24.3 ml/min
--- NOTE | 2022-09-16 08:12 | Pulmonary Consultation ---
Date of Consultation September 16, 2022 Assessment & Plan (1) SOB (shortness of breath): (2) CHF (congestive heart failure): Heart failure chronicity: acute Heart failure type: unspecified Qualified Code(s): I50.9 - Heart failure, unspecified (3) Acute on chronic respiratory failure with hypoxemia: (4) Pleural effusion: (5) Pulmonary emphysema: (6) COPD with emphysema: (7) Pulmonary hypertension: (8) Pulmonary nodule: Plan Chest x-ray 09/16/2022 personally reviewed: Bilateral costophrenic angles are blunted, increased cardiac silhouette, increased pulmonary vascular markings especially in the right side, single-lead pacemaker --Acute on chronic hypoxic respiratory failure On 2 L oxygen at home Likely secondary to fluid overload from CKD plus diastolic CHF BNP 3578 SARS [place]-2 NAAT negative Continue with diuretics BiPAP nightly and as needed shortness of breath --COPD with emphysema Gold class E Patient does have an allergic component hasabsolute eosinophil count 380 on 06/02/2019 On Trelegy inhaler once a day Albuterol and DuoNeb's nebulized as needed. PFTs 04/09/2021:Moderate COPD, insignificant bronchodilator response, moderate decrease in DLCO which does not correct for VA (Increased FVC by 320 mL, increased FEV1 by 120 mL compared to 03/2020) FVC is 2.08 L 77%, FEV1 1.17 L 61%, FEV1/FVC 57%, RV 127%, TLC 106%, RV/TLC 118%, DLCO 44%, DLCO/VA 61% --Chronic hypoxic respiratory failure On 2 L nasal cannula on exertion Advised patient to keep O2 saturation around 90-92%. She has a pulse ox at home. --Pulmonary hypertension Looking at the pulmonary artery on the CTA done in August 2017 Type II pulmonary hypertension likely from moderate aortic stenosis 2D Echo 09/11/2022: EF 50-55%, moderate aortic stenosis, moderate MR, moderate TR , RV mildly dilated, severe biatrial dilation. MIldly elevated RVSP: 45mmHg. --Pulmonary nodule Right middle lobe 4 mm, last time seen on CTA 08/2017 Stability for more than 3 years Does not need any further follow-up -- Ex-smoker Only [id number] smoking history Quit In the --A. fib On Xarelto Plan: Out: Positive 269 since coming to the hospital. We will recommend aggressive diuresis to keep the patient negative balance Patient's potassium is also creeping up. We will give patiromer on a daily basis. BiPAP nightly and as needed shortness of breath will be beneficial Patient's last dose of apixaban was on 09/14/2019 3 in the morning. She did get her heparin today Risk and benefit of the procedure explained to the patient in depth along with her son at bedside She understands and is agreeable to go ahead with the procedure. Plan will be to do thoracentesis of the right side tomorrow. Please note the above document was generated using voice recognition software. It may contain grammatical, syntax or spelling errors.Any formal questions or concerns about the content, text or information contained within the body of this dictation should be directly addressed to the provider for clarification. History of Present Illness Attending Physician: Mckay Avery, History of Present Illness 82-year-old female present to the hospital for Shortness of breath PMHx:COPD with oxygen dependance (3LPM 11/11), hypertension, hyperlipidemia, chronic atrial fibrillation on Xarelto, symptomatic bradycardia s/p pacemaker (05/2016), CAD s/p [place] (1992), CKD III with h/o renal cell carcinoma s/p left nephrectomy, DM II, hypothyroid. Patient was last seen by me in the office on 02/21/2022 Patient's son was in the room at the time of examination. Patient was saturating 95% on 4 L nasal cannula at rest. I went down to 2 L but she did desaturate to 89. I went up to 3 L and she was able to maintain her saturation 91-92% She was not in any respiratory distress. She did say that she was really short of breath on exertion that is the reason she ended up in the hospital. She has been compliant with her medications. Denies any fever or chills No chest pain, no cough, no hemoptysis No dysuria, no diarrhea, no hematuria, no hematochezia, no epistaxis Patient does not have any personal history of asthma.1 of her son has asthma Social history: 10 pack years, quit ,significant secondhand smoke for approximately 30 years. Used to work at [employer]. Denies any exposure to any chemicals or fumes. Family history is positive for lung cancer in sister who was a smoker. Allergies Allergy/AdvReac Type Severity Reaction Status Date / Time chlorthalidone Allergy Severe Swelling Verified 08/05/22 20:54 of Lip/Tongue/Throat Penicillins Allergy Severe Swelling Verified 08/05/22 20:54 of Lip/Tongue/Throat MANDEEP Inhibitors Allergy Unknown Unknown Verified 08/05/22 20:54 trazodone Allergy Unknown Unknown Verified 08/05/22 20:54 Home Medications Medication Instructions Recorded Confirmed Type calcium citrate 250 mg 1 tab PO QAM 11/07/18 09/06/22 History calcium-vitamin D3 5 mcg (200 unit) tablet cranberry concentrate-ascorbic 1 cap PO DAILY 11/07/18 09/06/22 History acid 4,200 mg-20 mg capsule multivitamin 1 tab PO QAM 11/07/18 09/06/22 History amlodipine 10 mg tablet 10 mg PO DAILY #90 tabs 09/12/21 09/06/22 Rx cholecalciferol (vitamin D3) 50 50 mcg PO BID #30 caps 09/12/21 09/06/22 Rx mcg (2,000 unit) capsule nitroglycerin 0.4 mg sublingual 0.4 mg sublingual UD PRN chest 09/12/21 09/06/22 Rx tablet pain #20 tabs sitagliptin phosphate 25 mg tablet 25 mg PO QAM #90 tabs 09/12/21 09/06/22 Rx (Januvia) atenolol 50 mg tablet 50 mg PO QAM #90 tabs 01/10/22 09/06/22 Rx losartan 25 mg tablet 25 mg PO QAM #90 tabs 01/10/22 09/06/22 Rx simvastatin 20 mg tablet 20 mg PO HS #90 tabs 01/10/22 09/06/22 Rx albuterol sulfate 90 mcg/actuation 2 puff inhalation Q4H PRN 02/21/22 09/06/22 Rx aerosol inhaler (Ventolin HFA) shortness of breath or wheezing #18 grams fluticasone fur. 100 mcg-umeclid 1 inh inhalation DAILY #3 Inhalers 02/21/22 09/06/22 Rx 62.5 mcg-vilant 25 mcg inhalat.powder (Trelegy Ellipta) zolpidem 5 mg tablet 5 mg PO QPM #30 tabs 05/29/22 09/06/22 Rx furosemide 20 mg tablet 20 mg PO QAM 90 days #90 tabs 07/02/22 09/06/22 Rx isosorbide mononitrate 30 mg 90 mg PO QAM #270 tabs 08/01/22 09/06/22 Rx tablet,extended release 24 hr apixaban 5 mg tablet (Eliquis) 5 mg PO BID 30 days #60 tabs 09/05/22 09/06/22 Rx Patient History Medical History Acute anterior epistaxis Acute lower gastrointestinal bleeding Acute posterior epistaxis Anemia Anticoagulant long-term use Atrial fibrillation permanent, now s/p PPM (2016) Bradycardia CAD (coronary artery disease) [place] (1992) CHF (congestive heart failure) follows with [facility] (Dr. Marcos) Chronic diastolic CHF (congestive heart failure) Chronic kidney disease, stage 3 follows with nephrology ([facility]/Dr. Richard) Chronic respiratory failure with hypoxia COPD (chronic obstructive pulmonary disease) 2L HS + occasionally PRN, follows with [facility] COPD with asthma COPD with emphysema Deep vein thrombosis B/L LE (1967), Diabetes mellitus, type 2 NIDDM Dysfunction of left eustachian tube Encounter for pre-operative examination Encounter for pre-operative examination GI bleed Hearing deficit History of kidney cancer s/p L nephrectomy (1997) Hyperlipidemia controlled Hypertension controlled Insomnia Insomnia Intractable back pain Leg swelling Mixed conductive and sensorineural hearing loss of left ear with restricted hearing of right ear Osteoarthritis Osteoporosis Pacemaker Implanted 2016, [employer], last check 09/2019 Pulmonary nodule per records Restless leg syndrome Syncope UTI (urinary tract infection) Vitamin D deficiency Surgical History History of cardiac cath 10+ years ago, no stents History of cholecystectomy History of colonoscopy History of hip surgery R/L NABEEL History of myringotomy + Left ear tube removal: 06/09/19: LMA#4 atraumatic at [facility] History of nephrectomy left History of vaginal hysterectomy Hx of bilateral cataract extraction Status post placement of cardiac pacemaker 2016 Family History Brother Hypertension Mother Cardiac disorder Sister Lung cancer Aunt Lung cancer Father Pneumonia Unknown Family history of allergies Environmental allergies Denies family history of Ovarian cancer Prostate cancer Myocardial infarction Breast cancer Colorectal cancer Social History Smoking Status: Never smoker Tobacco Type: Cigarettes Age Started Using Tobacco: 26; Age Quit Using Tobacco: 55; packs per day: 1; Cigarettes Per Day: 20; Second Hand Exposure: No; Do You Dip or Chew Tobacco: No; Hx Alcohol Use: No Hx Substance Use: No Preferred Language: Malagasy Communication Ability: Effective Visual Impairment: No Limitations Hearing Ability: Hard of Hearing Blanking Machine Operator Required: No Beliefs That Will Affect Care: None marital status: / Current Living Situation: Family Current Living Situation Comment: Son up from [place] to stay wih her current occupational status: retired current occupation: worked at [employer] Feels Safe at Home: Yes Childhood Exposure to Second-Hand Smoke: No Diet: other Diet Comment: Low sugar/ Sugar free options when possible caffeine: Yes (2 cups of coffee daily ) Dental Care, Regularly: No Physical Activity Frequency: Daily Seatbelt Use: always Sunscreen Use: Yes Assistive Devices: Oxygen - Continuous and Walker Review of Systems Review of Systems: All systems reviewed & are unremarkable except as noted in HPI & below Physical Exam 2 Physical Exam: Constitutional: No acute distress HEENT: EOMI, PERRLA Respiratory system:Decreased air entry bilaterally, no wheeze, no rhonchi, positive bilateral lower lobe crackles CVS: S1-S2 positive,positive 3 out of 6 systolic murmur appreciated best at the aorta, positive left PPM Abdomen: Soft, nontender, nondistended, positive bowel sounds x4,obese Extremities: +2 pulses bilaterally radialis, no cyanosis,+3 pitting edema left lower extremity Neuro: Awake alert oriented x3 Psych: Normal mood and affect Skin: no rashes, warm and dry Lymphatic: no cervical or axillary lymphadenopathy Results & Data Results & Data Vital Signs (Past 12 Hours) Vital Signs Temp Pulse Pulse Pulse Resp BP Pulse Ox 09/16/22 07:45 36.5 C 65 20 144/93 H 93 09/16/22 07:32 09/16/22 06:09 60 20 99 09/16/22 06:07 61 16 99 09/16/22 04:53 65 32 H 169/91 H 96 05/29/23 04:05 66 28 H 95 09/16/22 03:00 37.0 C 65 18 179/79 H 91 09/15/22 23:00 36.5 C 68 22 170/89 H 90 09/15/22 20:44 O2 Del Method O2 Flow Rate FiO2 09/16/22 07:45 Nasal Cannula 4 09/16/22 07:32 Nasal Cannula 4 09/16/22 06:09 30 09/16/22 06:07 BiPAP 30 09/16/22 04:53 Nasal Cannula 6 09/16/22 04:05 Nasal Cannula 5 09/16/22 03:00 Nasal Cannula 3 09/15/22 23:00 Nasal Cannula 3 09/15/22 20:44 Nasal Cannula 5 Laboratory Results 09/16/22 06:21 09/16/22 06:21 PG Care Time/CCT Total # of Minutes Spent Total Time Spent with Patient: Total time spent is greater than 50% in coordination of care (as documented) at patient's floor/unit and/or counseling patient: Coding Level of Care Code 07304 INT INP/OBS CARE 75MIN Diagnoses SOB (shortness of breath) R06.02 CHF (congestive heart failure) I50.9 Heart failure chronicity: acute Heart failure type: unspecified Acute on chronic respiratory failure with hypoxemia J96.21 Pleural effusion J90 Pulmonary emphysema J43.9 Pulmonary hypertension I27.20 Pulmonary nodule R91.1
[2022-09-16] MEDS: POLYETHYLENE (MIRALAX) 17 GM PACK PO SCH ×3 (08:27→19:19)
[2022-09-16] MEDS: FLUTICASONE FUROATE 100MCG 14 PUFFS/INHALER INH SCH (08:27)
[2022-09-16] MEDS: UMECLIDINIUM/VILANTEROL 62.5/25MCG 7 PUFFS/INHALER INH SCH (08:27)
[2022-09-16] MEDS: amLODIPine BESYLATE 5 MG TAB PO SCH (08:28)
[2022-09-16] MEDS: ISOSORBIDE MONO EXTENDED REL 30 MG TABCR PO SCH (08:28)
[2022-09-16] MEDS: HEPARIN SOD 5,000 UNIT/0.5 ML VIAL SQ SCH ×2 (08:29→20:32)
[2022-09-16] MEDS: INSULIN ASPART PER UNIT CHARGE SC SCH ×4 (08:29→20:30)
[2022-09-16] MEDS: ATENOLOL 50 MG TABLET PO SCH (08:29)
--- NOTE | 2022-09-16 12:15 | Procedure Note ---
Procedure Note Date of Service September 16, 2022 Note Bedside Ultrasound: Lung: Right:-Moderate to large right-sided pleural effusion with dependent atelectasis Left:-Small left-sided pleural effusion with dependent atelectasis Heart: Good ejection fraction, no pericardial effusion Please note the above document was generated using voice recognition software. It may contain grammatical, syntax or spelling errors.Any formal questions or concerns about the content, text or information contained within the body of this dictation should be directly addressed to the provider for clarification. Coding CPT Codes Pulmonary/Thoracic - Pulmonary and Thoracic: 06741 US, Chest, real time with imaging documentation ([id number]) [facility] [place] (Charges) Pulmonary/Thoracic Procedure 1: Pulmonary and Thoracic: 85069 US, Chest, real time with imaging documentation
--- NOTE | 2022-09-16 12:43 | Nephrology Consultation ---
Date of Consultation September 16, 2022 Assessment & Plan (1) YUMIKO (acute kidney injury): Non-oliguric. There is no emergent indication for dialysis. Cammy indicated that she would not want dialysis under any circumstances. Goals of care continue to be updated. Remains full code. UA is bland. Urine sodium is <10. Findings support prerenal YUMIKO in the setting of right heart failure, aortic stenosis, and decreased effective arterial volume from diuretics. Renal US to be updated. Patiromer is being provided for hyperkalemia and furosemide to encourage urine output. Document I/O's. Renal diet. Continue to hold losartan. Medications are appropriate for kidney function. (2) Chronic kidney disease, stage 3: Baseline creatinine 1.0-1.3 mg/dL. Followed by Dr. Cox. Single kidney due to history of nephrectomy. No notable proteinuria. (3) Hyperkalemia: Patiromer 8.4 grams now. Diuretics to encourage urine output. Low potassium diet. Repeat labs this afternoon. Tele monitor. (4) Acute on chronic respiratory failure with hypoxemia: Diuretics to encourage negative fluid balance. Appreciate pulmonary consultation. Pleuracentesis planned for tomorrow. (5) CHF (congestive heart failure): Diuretic resistance with prerenal YUMIKO. Urine sodium notably low. Losartan held. BP acceptable. Diuretics to encourage urine output. History of Present Illness Reason for Consultation: worsening potassium, hx of nephrectomy Requesting Physician: Huan Cabrera DO Attending Physician: Huan Cabrera DO History of Present Illness Cammy Zhu is an 82 year-old female with obesity, CAD, permanent atrial fibrillation, tachycardia-bradycardia syndrome s/p pacemaker placement, HFPEF, history of DVT, history of bleeding hemorrhoids, DM 2, COPD chronic O2 dependent, pulmonary hypertension, asthma, hyperlipidemia, hypertension, single functional kidney due to a history of RCC, and CKD. She presented to the ER on September 10 with increasing shortness of breath. Cammy was recently admitted to [facility] after suffering a fall and suffering multiple facial bone fractures. She had been discharged to [facility] for rehab and returned on on September 05. Unfortunately, Cammy has struggled with notable orthopnea and fluid retention since she returned home. She has been treated with IV furosemide since admission. Weight stable. I/O's not significantly negative but output not documented 100% per nursing report. Cammy reports that she did notice some improvement over the first couple of days of treatment but has started to experience increasing edema and weakness in the past couple of days. She reports deconditioning and generalized fatigue. She felt better after using BIPAP and getting some rest. She was having some voiding difficulty and has been ap preciative of Booker catheter placement. She denies any chest pain or palpitations. She states that she believes that God has a plan and she does not intend to intervene. If her kidney dysfunction progresses, she states that she would not pursue dialysis at this time. She explained that she would not want to be dependent on a dialysis machine. She advocated that she prefers a more conservative approach to care. Cammy was admitted with a serum creatinine of 1.35 mg/dL. Creatinine has increased to 2.0 mg/dL. Losartan has been held for the past couple of days. Potassium rising. Thankfully, no concerning EKG changes. I discussed the patient's history and plan of care with Dr. Doss this AM. Cammy has followed with Dr. Cox in the past for her CKD. TTE demonstrating normal LVEF with akinesis of the distal inferolateral wall. At least moderate aortic stenosis with moderate mitral regurgitation and moderate tricuspid regurgitation noted. Allergies Allergy/AdvReac Type Severity Reaction Status Date / Time chlorthalidone Allergy Severe Swelling Verified 08/05/22 20:54 of Lip/Tongue/Throat Penicillins Allergy Severe Swelling Verified 08/05/22 20:54 of Lip/Tongue/Throat MANDEEP Inhibitors Allergy Unknown Unknown Verified 08/05/22 20:54 trazodone Allergy Unknown Unknown Verified 08/05/22 20:54 Home Medications Medication Instructions Recorded Confirmed Type calcium citrate 250 mg 1 tab PO QAM 11/07/18 09/06/22 History calcium-vitamin D3 5 mcg (200 unit) tablet cranberry concentrate-ascorbic 1 cap PO DAILY 11/07/18 09/06/22 History acid 4,200 mg-20 mg capsule multivitamin 1 tab PO QAM 11/07/18 09/06/22 History amlodipine 10 mg tablet 10 mg PO DAILY #90 tabs 09/12/21 09/06/22 Rx cholecalciferol (vitamin D3) 50 50 mcg PO BID #30 caps 09/12/21 09/06/22 Rx mcg (2,000 unit) capsule nitroglycerin 0.4 mg sublingual 0.4 mg sublingual UD PRN chest 09/12/21 09/06/22 Rx tablet pain #20 tabs sitagliptin phosphate 25 mg tablet 25 mg PO QAM #90 tabs 09/12/21 09/06/22 Rx (Januvia) atenolol 50 mg tablet 50 mg PO QAM #90 tabs 01/10/22 09/06/22 Rx losartan 25 mg tablet 25 mg PO QAM #90 tabs 01/10/22 09/06/22 Rx simvastatin 20 mg tablet 20 mg PO HS #90 tabs 01/10/22 09/06/22 Rx albuterol sulfate 90 mcg/actuation 2 puff inhalation Q4H PRN 02/21/22 09/06/22 Rx aerosol inhaler (Ventolin HFA) shortness of breath or wheezing #18 grams fluticasone fur. 100 mcg-umeclid 1 inh inhalation DAILY #3 Inhalers 02/21/22 09/06/22 Rx 62.5 mcg-vilant 25 mcg inhalat.powder (Trelegy Ellipta) zolpidem 5 mg tablet 5 mg PO QPM #30 tabs 05/29/22 09/06/22 Rx furosemide 20 mg tablet 20 mg PO QAM 90 days #90 tabs 07/02/22 09/06/22 Rx isosorbide mononitrate 30 mg 90 mg PO QAM #270 tabs 08/01/22 09/06/22 Rx tablet,extended release 24 hr apixaban 5 mg tablet (Eliquis) 5 mg PO BID 30 days #60 tabs 09/05/22 09/06/22 Rx Patient History Medical History Acute anterior epistaxis Acute lower gastrointestinal bleeding Acute posterior epistaxis Anemia Anticoagulant long-term use Atrial fibrillation permanent, now s/p PPM (2016) Bradycardia CAD (coronary artery disease) [place] (1992) CHF (congestive heart failure) follows with [facility] (Dr. Marcos) Chronic diastolic CHF (congestive heart failure) Chronic kidney disease, stage 3 [place] [place] Chronic respiratory failure with hypoxia COPD (chronic obstructive pulmonary disease) 2L HS + occasionally PRN, [place] [facility] [place] COPD with asthma COPD with emphysema Deep vein thrombosis B/L LE (1967), Diabetes mellitus, type 2 NIDDM Dysfunction of left eustachian tube Encounter for pre-operative examination Encounter for pre-operative examination GI bleed Hearing deficit History of kidney cancer s/p L nephrectomy (1997) Hyperlipidemia controlled Hypertension controlled Insomnia Insomnia Intractable back pain Leg swelling Mixed conductive and sensorineural hearing loss of left ear with restricted hearing of right ear Osteoarthritis Osteoporosis Pacemaker Implanted 2017, [employer], last check 09/2019 Pulmonary nodule per records Restless leg syndrome Syncope UTI (urinary tract infection) Vitamin D deficiency Surgical History History of cardiac cath 10+ years ago, no stents History of cholecystectomy History of colonoscopy History of hip surgery R/L NABEEL History of myringotomy + Left ear tube removal: 06/09/19: LMA#4 atraumatic at [facility] History of nephrectomy left History of vaginal hysterectomy Hx of bilateral cataract extraction Status post placement of cardiac pacemaker 2016 Family History Brother Hypertension Mother Cardiac disorder Sister Lung cancer Aunt Lung cancer Father Pneumonia Unknown Family history of allergies Environmental allergies Denies family history of Ovarian cancer Prostate cancer Myocardial infarction Breast cancer Colorectal cancer Social History Smoking Status: Never smoker Tobacco Type: Cigarettes Age Started Using Tobacco: 26; Age Quit Using Tobacco: 55; packs per day: 1; Cigarettes Per Day: 20; Second Hand Exposure: No; Do You Dip or Chew Tobacco: No; Hx Alcohol Use: No Hx Substance Use: No Preferred Language: Yi Communication Ability: Effective Visual Impairment: No Limitations Hearing Ability: Hard of Hearing Clerical Assistant Required: No Beliefs That Will Affect Care: None marital status: / Current Living Situation: Family Current Living Situation Comment: [facility] stay wih her current occupational status: retired current occupation: worked at [employer] Feels Safe at Home: Yes Childhood Exposure to Second-Hand Smoke: No Diet: other Diet Comment: Low sugar/ Sugar free options when possible caffeine: Yes (2 cups of coffee daily ) Dental Care, Regularly: No Physical Activity Frequency: Daily Seatbelt Use: always Sunscreen Use: Yes Assistive Devices: Oxygen - Continuous and Walker Review of Systems Review of Systems: All systems reviewed & are unremarkable except as noted in HPI & below Constitutional: no fever and no chills Respiratory: + dyspnea; no cough Cardiovascular: no chest pain and no palpitations Physical Exam Constitutional: well developed, + obese and + frail appearing; no acute distress Eyes: + anicteric sclerae; no corneal abnormality ENMT: Mouth: no oral mucosal abnormality and oral mucous membranes not dry Neck: normal visual inspection and trachea midline Respiratory: normal respiratory effort Auscultation: + diminished lung sounds and + rales Cardiovascular: Rate/Rhythm: regular rate Heart Sounds: normal S1, normal S2 and + murmur Extremities: + edema Musculoskeletal: Extremities: no cyanosis and no clubbing Skin: + turgor decreased; no jaundice Neurologic: Motor/Sensory: no tremor and no asterixis Psychiatric: Orientation: alert and oriented x 3 Results & Data Vital Signs (Past 12 Hours) Vital Signs Temp Pulse Pulse Pulse Resp BP Pulse Ox 09/16/22 11:51 36.6 C 62 22 159/83 H 92 09/16/22 10:11 84 18 93 09/16/22 07:45 36.5 C 65 20 144/93 H 93 09/16/22 07:32 09/16/22 06:09 60 20 99 09/16/22 06:07 61 16 99 09/16/22 04:53 65 32 H 169/91 H 96 09/16/22 04:05 66 28 H 95 09/16/22 03:00 37.0 C 65 18 179/79 H 91 O2 Del Method O2 Flow Rate FiO2 09/16/22 11:51 Nasal Cannula 4 09/16/22 10:11 Nasal Cannula 4 09/16/22 07:45 Nasal Cannula 4 09/16/22 07:32 Nasal Cannula 4 09/16/22 06:09 30 09/16/22 06:07 BiPAP 30 09/16/22 04:53 Nasal Cannula 6 09/16/22 04:05 Nasal Cannula 5 09/16/22 03:00 Nasal Cannula 3 Laboratory Results Laboratory Results - last 24 hr 09/15/22 09/15/22 09/15/22 14:30 16:35 20:15 WBC RBC Hgb Hct MCV MCH MCHC RDW Std Deviation RDW Coeff of Stephane Plt Count MPV Sodium 132 L Potassium 5.7 H Chloride 95 L Carbon Dioxide 32 Anion Gap 5 BUN 60 H Creatinine 2.00 H Est Cr Clr Drug Dosing 24.1 Est GFR ( Amer) 25.9 Est GFR (Non-Af Amer) 22.4 BUN/Creatinine Ratio 30.0 H Glucose 137 H POC Glucose 147 H 151 H Calcium 9.0 B-Natriuretic Peptide 09/16/22 09/16/22 09/16/22 06:21 06:21 07:21 WBC 6.38 RBC 3.15 L Hgb 9.3 L Hct 29.2 L MCV 92.7 MCH 29.5 MCHC 31.8 L RDW Std Deviation 46.2 RDW Coeff of Stephane 13.7 Plt Count 170 MPV 10.8 Sodium 131 L Potassium 6.0 H Chloride 94 L Carbon Dioxide 33 H Anion Gap 4 BUN 60 H Creatinine 1.87 H Est Cr Clr Drug Dosing 26.0 Est GFR ( Amer) 28.1 Est GFR (Non-Af Amer) 24.3 BUN/Creatinine Ratio 32.1 H Glucose 142 H POC Glucose 152 H Calcium 9.1 B-Natriuretic Peptide 09/16/22 09/16/22 09:01 11:31 WBC RBC Hgb Hct MCV MCH MCHC RDW Std Deviation RDW Coeff of Stephane Plt Count MPV Sodium Potassium Chloride Carbon Dioxide Anion Gap BUN Creatinine Est Cr Clr Drug Dosing Est GFR ( Amer) Est GFR (Non-Af Amer) BUN/Creatinine Ratio Glucose POC Glucose 121 H Calcium B-Natriuretic Peptide 3578 H Diagnostic Findings XR chest 1V portable FINDINGS: Cardiac silhouette is enlarged. Left subclavian pacer. Pulmonary vascular congestion with interstitial coarsening. Pulmonary emphysema. No pneumothorax. Layering pleural effusions with bibasilar consolidation again noted. Irregular 4.3 cm opacity of the right upper lung. Degenerative changes of the shoulders and spine. IMPRESSION: 1. Cardiomegaly with persistent pulmonary edema. 2. Layering pleural effusions with bibasilar consolidation. 3. Irregular 4.3 cm opacity in the right upper lung. Attention on follow-up recommended. PG Care Time/CCT Total # of Minutes Spent Total Time Spent with Patient: Total time spent is greater than 50% in coordination of care (as documented) at patient's floor/unit and/or counseling patient: Coding Level of Care Code 50429 IN/OBS CONSULT LVL 4,60M Diagnoses YUMIKO (acute kidney injury) N17.9 Chronic kidney disease, stage 3 N18.3 Hyperkalemia E87.5 Acute on chronic respiratory failure with hypoxemia J96.21 CHF (congestive heart failure) I50.9 Heart failure chronicity: acute Heart failure type: unspecified (5) CHF (congestive heart failure) Heart failure chronicity: acute Heart failure type: unspecified Qualified Code(s): I50.9 - Heart failure, unspecified
[2022-09-16] MEDS: PATIROMER CALCIUM SORBITEX 8.4 GM PACK PO SCH (13:36)
[2022-09-16 14:56] LABS: BUN Creatinine Ratio 31.5 (10-20); Calcium 8.9 mg/dl (8.6-10.3); Creatinine Clr Calc Pharmacy 26.5 ml/min; Est GFR (African American) 28.7 ml/min; Est GFR (Non-African American) 24.7 ml/min
--- NOTE | 2022-09-16 16:12 | Ultrasound Report ---
RENAL ULTRASOUND HISTORY: Acute kidney injury jolene, single kidney COMPARISON: CT 06/26/2021 FINDINGS: Right kidney: 12.2 x 5.4 x 5.3 No hydronephrosis. Mild diffuse cortical thinning again noted.. Left kidney: Surgically absent. Bladder: Decompressed urinary bladder with Booker catheter in place. IMPRESSION: 1. Cortical thinning of the right kidney redemonstrated. No renal calculi or hydronephrosis. 2. Left nephrectomy. 3. Decompressed urinary bladder with Booker catheter. ACT 112: Negative or not required by law. Electronically signed by: Marko Padron M.D. 09/16/2022 4:10 PM
[2022-09-16] MEDS ORDERED: FUROSEMIDE 40 MG/4 ML VIAL IV ONE (18:34)
[2022-09-16] MEDS: SIMVASTATIN 20 MG TAB PO SCH (20:32)
[2022-09-16] MEDS: ACETAMINOPHEN 325 MG TAB PO PRN (23:25)
[2022-09-17] MEDS ORDERED: MoRPHine SULFATE 2 MG/ML CARP IV STA (04:42)
[2022-09-17 06:07] LABS: HCO3 VBG 34 mmol/L; Oxygen Saturation VBG 91.3 %; PCO2 VBG 51 mmHg (38-50); PO2 VBG 58 mmHg; pH VBG 7.43 (7.36-7.41)
[2022-09-17 06:17] LABS: Hematocrit (blood only) 27.1 % (37.0-47.0); Hemoglobin 8.9 g/dl (12.0-16.0); Mean Corpuscular Hemoglobin 29.8 pg (25.0-34.0); Mean Corpuscular Hgb Conc 32.8 g/dL (32.0-36.0); Mean Corpuscular Volume 90.6 fL (80.0-100.0); Mean Platelet Volume 10.6 fL (9.4-12.4); Platelet Count 180 K/uL (130-400); RDW Coefficient of Variation 13.5 % (11.5-14.5); RDW Standard Deviation 44.8 fL (36.4-46.3); Red Blood Count 2.99 M/uL (4.20-5.40); White Blood Count 5.58 K/ul (4.8-10.8)
[2022-09-17 06:25] LABS: Magnesium 2.3 mg/dl (1.7-2.4); Phosphorus 3.4 mg/dl (2.5-4.9)
--- NOTE | 2022-09-17 06:25 | XRay Report ---
XR chest 1V portable CLINICAL HISTORY: Dyspnea. COMPARISON STUDY: Chest radiograph September 16, 2022. Chest CT May 23, 2015. FINDINGS: There is no pneumothorax. Bilateral pleural effusions and associated bibasilar opacities pe rsist. A 4.7 cm elliptical right upper lung opacity is unchanged as well. There is persistent pulmona ry edema. Cardiomegaly is unchanged. There is no significant change in appearance of the chest. Old r ight-sided rib fractures. IMPRESSION: 1. No significant change in pulmonary edema with bilateral pleural effusions and associated bibasilar opacities which could reflect atelectasis or consolidation. 2. Persistent 4.7 cm elliptical right upper lung opacity. This could reflect fissural fluid however i s indeterminate and should be assessed on follow-up exams to ensure resolution. ACT 112: Negative or not required by law. Electronically signed by: Jorgito Oseguera M.D. 09/17/2022 6:23 AM
[2022-09-17 06:28] LABS: BUN Creatinine Ratio 32.2 (10-20); Calcium 9.2 mg/dl (8.6-10.3); Creatinine Clr Calc Pharmacy 26.8 ml/min; Est GFR (African American) 29.4 ml/min; Est GFR (Non-African American) 25.4 ml/min; Potassium 5.4 mmol/L (3.5-5.1)
--- NOTE | 2022-09-17 07:06 | Hospitalist Progress Note ---
Date of Service September 17, 2022 Assessment & Plan (1) CHF (congestive heart failure): Plan: Cammy Zhu is a 82 y/o female with an extensive PMHx including CAD ([place] in 1992), permanent atrial fibrillation, multiple prior DVTs on Xarelto, diastolic CHF, tachycardia-bradycardia syndrome (May 2016, pacemaker), DM 2, COPD, asthma, hyperlipidemia, and hypertension who presented to the ER with increased shortness of breathing and increased oxygen requirement found to have bilateral pleural effusions and pulmonary edema on 3-5L NC with minimal improvement. Urinary Retention, Electrolyte abnormalities Acute urinary retention. Likely in the setting of constipation. Bladder scan 420 mL yesterday and creatinine bump with worsening electrolyte derangements. Booker placement for bladder decompression and accurate Is and Os. -Booker catheter in place -Strict Is and Os -UA and lytes - consistent with pre-renal Hyperkalemia -Potassium of 6.0 this morning (5.6 and 5.7 yesterday) -Hold home Losartan -Nephrology consulted, appreciate recommendations -Will start Patiromer this afternoon -Received 40 IV Lasix today. Output of approximately 500mL from 7am-2pm -Will recheck afternoon BMP -> K of 6.0 again -Daily BMP -Continue monitoring on telemetry Constipation, Nausea Patient constipated but had BM after suppository. Intermittent nausea during hospital stay likely in the setting of constipation. Treated with zofran as appropriate. HFpEF 50-55%, Bilateral Pleural Effusions Chronic and unstable, BNP > 3,000 on admission and on repeat testing. CXR with bilateral pulmonary effusions R>L. No indication for emergent thoracentesis. Could consider if patient continues to have increased oxygen requirement and SOB. Patient on Eliquis as home. On SQ heparin as there is the possibility of CT placement vs thoracentesis during this admission. Most Recent ECHO 09/11/22 (unchanged from prior exam): normal systolic function, akinesis of distal inferior wall, EF 50-55%, moderate valvular aortic stenosis, moderate MR and TR EKG: ventricularly paced -BNP 3578 today -Pulmonary consulted, appreciate recommendations -Plan for right sided thoracentesis tomorrow -Hold Heparin prior to procedure CKD III s/p nephrectomy 1997 for renal malignancy Baseline unclear. -Cr 1.84 today -Monitor Is and Os COPD with asthma Patient on 2L NC at baseline. Increased oxygen requirement 3-5L during this admission. -Goal O2Sat 88-92 -DuoNebs -Trelegy (ICS/LAMA/LABA) - fluticasone, umeclidinium, vilanterol -2 Step prior to d/c -Per pulmonology, BiPAP at night and as needed Hypertension Home meds: Losartan 25mg, Isosorbide 90mg, Atenolol 50mg, amlodipine 10mg -Hold Losartan Hyperlipidemia Continue Simvastatin 20mg Atrial fibrillation A Fib with hx of multiple DVTs on Xarelto. [id number] score of 7. On Eliquis at home. SQ Heparin while inpatient. Diabetes mellitus, type 2 On sitagliptin at home. Resume on discharge. -Carb consistent diet -ISS Code status: full DVT ppx: SQ heparin FENGI: Carb consistent, low sodium, heart healthy, Renal diet Dispo: PCU, 2 STEP prior to d/c Admission and Anticipated Discharge Date Admission Date: September 10, 2022 Zuly Zhu is a 82 y/o female with an extensive PMHx including CAD ([place] in 1992), permanent atrial fibrillation, multiple prior DVTs on Xarelto, diastolic CHF, tachycardia-bradycardia syndrome (May 2016, pacemaker), DM 2, COPD, asthma, hyperlipidemia, and hypertension who presented to the ER with increased shortness of breathing and increased oxygen requirement found to have bilateral pleural effusions and pulmonary edema on 3-5L NC with minimal improvement. 09/17: Physical Exam Constitutional: + frail appearing and comfortable; no acute distress Respiratory: normal respiratory effort; no respiratory distress Cardiovascular: Rate/Rhythm: regular rate and regular rhythm Heart Sounds: + murmur Gastrointestinal (Abdomen): normal bowel sounds, soft, nontender, no hepatosplenomegaly Skin: no rashes, warm and dry Psychiatric: A+Ox3, euthymic affect Results & Data Results & Data Vital Signs (Past 12 Hours) Vital Signs Temp Pulse Pulse Resp BP Pulse Ox O2 Del Method 09/17/22 03:00 36.6 C 60 18 173/78 H 94 BiPAP 09/17/22 02:19 60 28 H 94 09/16/22 23:16 60 09/16/22 22:52 36.6 C 61 20 179/71 H 94 BiPAP 09/16/22 21:55 60 21 96 FiO2 09/17/22 03:00 09/17/22 02:19 30 09/16/22 23:16 09/16/22 22:52 30 09/16/22 21:55 30 (1) CHF (congestive heart failure) Heart failure chronicity: acute Heart failure type: unspecified Qualified Code(s): I50.9 - Heart failure, unspecified
[2022-09-17] MEDS: ALBUT/IPRATROP 3MG/0.5MG NEB 3 ML VIAL NEB SCH ×4 (07:19→19:34)
[2022-09-17] MEDS: UMECLIDINIUM/VILANTEROL 62.5/25MCG 7 PUFFS/INHALER INH SCH (08:24)
[2022-09-17] MEDS: INSULIN ASPART PER UNIT CHARGE SC SCH ×4 (08:24→21:00)
[2022-09-17] MEDS: FLUTICASONE FUROATE 100MCG 14 PUFFS/INHALER INH SCH (08:24)
[2022-09-17] MEDS: ISOSORBIDE MONO EXTENDED REL 30 MG TABCR PO SCH (08:25)
[2022-09-17] MEDS: amLODIPine BESYLATE 5 MG TAB PO SCH (08:25)
[2022-09-17] MEDS: ATENOLOL 50 MG TABLET PO SCH (08:25)
[2022-09-17] MEDS: POLYETHYLENE (MIRALAX) 17 GM PACK PO SCH ×3 (08:26→21:00)
--- NOTE | 2022-09-17 09:07 | Pulmonology Progress Note ---
Date of Service September 17, 2022 Assessment & Plan (1) SOB (shortness of breath): (2) CHF (congestive heart failure): Heart failure chronicity: acute Heart failure type: unspecified Qualified Code(s): I50.9 - Heart failure, unspecified (3) Acute on chronic respiratory failure with hypoxemia: (4) Pleural effusion: (5) Pulmonary emphysema: (6) Pulmonary hypertension: (7) Pulmonary nodule: Plan Chest x-ray 09/16/2022 personally reviewed: Bilateral costophrenic angles are blunted, increased cardiac silhouette, increased pulmonary vascular markings especially in the right side, single-lead pacemaker --Acute on chronic hypoxic respiratory failure On 2 L oxygen at home Likely secondary to fluid overload from CKD plus diastolic CHF BNP 3578 SARS [place]-2 NAAT negative Continue with diuretics BiPAP nightly and as needed shortness of breath --COPD with emphysema Gold class E Patient does have an allergic component hasabsolute eosinophil count 380 on 06/02/2019 On Trelegy inhaler once a day Albuterol and DuoNeb's nebulized as needed. PFTs 04/09/2021:Moderate COPD, insignificant bronchodilator response, moderate decrease in DLCO which does not correct for VA (Increased FVC by 320 mL, increased FEV1 by 120 mL compared to 03/2020) FVC is 2.08 L 77%, FEV1 1.17 L 61%, FEV1/FVC 57%, RV 127%, TLC 106%, RV/TLC 118%, DLCO 44%, DLCO/VA 61% --Chronic hypoxic respiratory failure On 2 L nasal cannula on exertion Advised patient to keep O2 saturation around 90-92%. She has a pulse ox at home. --Pulmonary hypertension Looking at the pulmonary artery on the CTA done in August 2017 Type II pulmonary hypertension likely from moderate aortic stenosis 2D Echo 09/11/2022: EF 50-55%, moderate aortic stenosis, moderate MR, moderate TR , RV mildly dilated, severe biatrial dilation. MIldly elevated RVSP: 45mmHg. --Pulmonary nodule Right middle lobe 4 mm, last time seen on CTA 08/2017 Stability for more than 3 years Does not need any further follow-up -- Ex-smoker Only [id number] smoking history Quit In the --A. fib On Xarelto Plan: In/out: -1.4 L, urine output 1601 Continue with diuresis to keep the patient negative balance BiPAP nightly and as needed shortness of breath will be beneficial Patient's last dose of apixaban was on 09/13/2022 in the morning For thoracentesis today Following thoracentesis okay to resume subcu heparin. Recommend continue to hold apixaban. Case discussed with RN at bedside Please note the above document was generated using voice recognition software. It may contain grammatical, syntax or spelling errors.Any formal questions or concerns about the content, text or information contained within the body of this dictation should be directly addressed to the provider for clarification. Admission and Anticipated Discharge Date Admission Date: September 10, 2022 Subjective Patient seen and examined at bedside. No acute distress, no adverse events overnight Was saturating 94% on 5 L nasal cannula, I went down to 3 L She has been urinating well now. Denies any chest pain does get short of breath on minimal exertion No headache, no nausea vomiting Fair appetite Review of Systems Review of Systems: All systems reviewed & are unremarkable except as noted in Subjective Physical Exam Physical Exam: Constitutional: No acute distress HEENT: EOMI, PERRLA Respiratory system:Decreased air entry bilaterally, no wheeze, no rhonchi, positive bilateral lower lobe crackles CVS: S1-S2 positive,positive 3 out of 6 systolic murmur appreciated best at the aorta, positive left PPM Abdomen: Soft, nontender, nondistended, positive bowel sounds x4,obese Extremities: +2 pulses bilaterally radialis, no cyanosis,+3 pitting edema left lower extremity Neuro: Awake alert oriented x3 Psych: Normal mood and affect Skin: no rashes, warm and dry Lymphatic: no cervical or axillary lymphadenopathy Results & Data Results & Data Vital Signs (Past 12 Hours) Vital Signs Temp Pulse Pulse Pulse Resp BP Pulse Ox 09/17/22 08:29 36.9 C 09/17/22 08:00 60 22 151/67 H 94 09/17/22 07:20 62 22 95 09/17/22 03:00 36.6 C 60 18 173/78 H 94 09/17/22 02:19 60 28 H 94 09/16/22 23:16 60 09/16/22 22:52 36.6 C 61 20 179/71 H 94 09/16/22 21:55 60 21 96 O2 Del Method O2 Flow Rate FiO2 05/30/23 08:29 09/17/22 08:00 Nasal Cannula 4 09/17/22 07:20 BiPAP 30 09/17/22 03:00 BiPAP 09/17/22 02:19 30 09/16/22 23:16 09/16/22 22:52 BiPAP 30 09/16/22 21:55 30 Laboratory Results 09/17/22 05:52 09/17/22 05:52 PG Care Time/CCT Total # of Minutes Spent Total Time Spent with Patient: Total time spent is greater than 50% in coordination of care (as documented) at patient's floor/unit and/or counseling patient: Coding Level of Care Code 77988 SUB INP/OBS CARE 3/50MIN Diagnoses SOB (shortness of breath) R06.02 CHF (congestive heart failure) I50.9 Heart failure chronicity: acute Heart failure type: unspecified Acute on chronic respiratory failure with hypoxemia J96.21 Pleural effusion J90 Pulmonary emphysema J43.9 Pulmonary hypertension I27.20 Pulmonary nodule R91.1
--- NOTE | 2022-09-17 10:36 | Nephrology Progress Note ---
Date of Service September 17, 2022 Assessment & Plan (1) YUMIKO (acute kidney injury): (2) Hyperkalemia: (3) Pleural effusion: (4) Anemia: (5) Pedal edema: (6) SOB (shortness of breath): Plan 82 year-old female with solitary right kidney after left nephrectomy for renal cell carcinoma, stage IIIA CKD baseline creatinine 1.2 to 1.3, obesity, CAD, permanent atrial fibrillation, tachycardia-bradycardia syndrome s/p pacemaker placement, HFPEF, history of DVT, history of bleeding hemorrhoids, DM 2, COPD chronic O2 dependent, pulmonary hypertension, asthma, hyperlipidemia, hypertension admitted on September 10 with increasing shortness of breath. Lab showed YUMIKO, creatinine staying around 1.8 with persistent hyperkalemia, has been off of the ARB, received Veltassa yesterday. Prior to that she was admitted in early August after suffering a fall and suffering multiple facial bone fractures. She was discharged to [facility] for rehab and returned home on September 05 but struggled with orthopnea and fluid retention since she returned home. She has been treated with IV furosemide since admission. Weight stable. She was noted to have significant bilateral lower excess right effusion and pulmonary congestion. Record shows she is net negative more than 1 L overnight. -- Lasix 40 mg IV x 1 does now and then continue 40 mg daily, plan for thoracentesis this afternoon. Continue to strictly monitor intake and output. Keep on low-potassium diet, off of MANDEEP-inhibitor or an ARB. Will follow Admission and Anticipated Discharge Date Admission Date: September 10, 2022 Zuly Chawla was seen and evaluated morning with her son at bedside. She reports having a rough night with pain in her face after wearing CPAP. She feels shortness of breath is relatively stable. Has been having decent urine output overall net negative more than 1 L. blood pressure remains slightly elevated. Creatinine stable and potassium slightly improved. Review of Systems Review of Systems: Detailed review of system was done and pertinent positives and negatives were mentioned above. Physical Exam Constitutional: WD/WN, vitals as above + ill appearing; no acute distress Eyes: + anicteric sclerae Neck: normal visual inspection Respiratory: Auscultation: + diminished lung sounds Cardiovascular: Rate/Rhythm: + irregularly irregular Heart Sounds: + murmur Extremities: + edema Skin: no rashes, warm and dry Neurologic: no focal motor deficits and not confused Psychiatric: Orientation: alert and oriented x 3 Results & Data Vital Signs (Past 12 Hours) Vital Signs Temp Pulse Pulse Pulse Resp BP Pulse Ox 09/17/22 09:00 09/17/22 07:00 60 09/17/22 08:29 36.9 C 09/17/22 08:00 60 22 151/67 H 94 09/17/22 07:20 62 22 95 09/17/22 03:00 36.6 C 60 18 173/78 H 94 09/17/22 02:19 60 28 H 94 09/16/22 23:16 60 09/16/22 22:52 36.6 C 61 20 179/71 H 94 O2 Del Method O2 Flow Rate FiO2 09/17/22 09:00 Nasal Cannula 4 09/17/22 07:00 09/17/22 08:29 09/17/22 08:00 Nasal Cannula 4 09/17/22 07:20 BiPAP 30 09/17/22 03:00 BiPAP 09/17/22 02:19 30 09/16/22 23:16 09/16/22 22:52 BiPAP 30 PG Care Time/CCT Total # of Minutes Spent Total Time Spent with Patient: Total time spent is greater than 50% in coordination of care (as documented) at patient's floor/unit and/or counseling patient: Coding Level of Care Code 30406 SUB INP/OBS CARE 3/50MIN Diagnoses YUMIKO (acute kidney injury) N17.9 Hyperkalemia E87.5 Pleural effusion J90 Anemia D64.9 Anemia type: unspecified type Pedal edema R60.0 SOB (shortness of breath) R06.02 (4) Anemia Anemia type: unspecified type Qualified Code(s): D64.9 - Anemia, unspecified
[2022-09-17] MEDS ORDERED: FUROSEMIDE 40 MG/4 ML VIAL IV ONE (10:37)
[2022-09-17] MEDS: PATIROMER CALCIUM SORBITEX 8.4 GM PACK PO SCH (10:53)
[2022-09-17] MEDS ORDERED: PATIROMER CALCIUM SORBITEX 8.4 GM PACK PO SCH (11:00)
--- NOTE | 2022-09-17 11:52 | Procedure Note ---
Procedure Note Date of Service September 17, 2022 Note Procedure: Diagnostic therapeutic ultrasound-guided catheter thoracentesis [place]: Dr. Tripp Doss Indication: Right pleural effusion Consent: Signed by patient and verified with timeout prior to procedure Anesthesia: 1% lidocaine without epinephrine local. Procedure: Consent was verified and timeout performed. Appropriate imaging studies were reviewed prior to the procedure. Patient was placed in a seated position and limited thoracic ultrasound was performed of the right chest. See separate imaging. Appropriate site above the diaphragm for thoracentesis was selected. The skin was prepped and draped in normal sterile fashion. Lidocaine was used for local analgesia. Fluid was aspirated via the finder needle. A small skin kristan was made with the scalpel and the catheter over the needle apparatus was advanced over the rib into the pleural space. Using the syringe one-way valve system, a total of 1450 mL's of serous fluid was removed. The catheter was removed and observed to be intact. A sterile dressing was applied. Post procedure chest x-ray was ordered. Fluid was sent for labs, culture and cytology. Good lung sliding appreciated postprocedure on the ultrasound Complications: None Blood loss: None Coding CPT Codes Pulmonary/Thoracic - Pulmonary and Thoracic: 76506 Thoracentesis w imaging ([id number]) [facility] [place] Procedure Codes (Charges) Pulmonary/Thoracic Procedure 1: Pulmonary and Thoracic: 13645 Thoracentesis w imaging
--- NOTE | 2022-09-17 12:16 | Hospitalist Progress Note ---
Date of Service September 17, 2022 Assessment & Plan (1) CHF (congestive heart failure): Plan: Summary: Cammy is an 82 y/o F with PMHx of diastolic CHF, COPD with asthma, CKD 3, prior DVTs, AFIB on Xarelto, tachy-joe syndrome with pacemaker (2017) and DM2 who presented to the ED on 09/10 with worsening SOB. Prior to that on 08/23/22 she was admitted to [facility] for multiple facial fractures after a fall. #Congestive heart failure: Chronic and unstable, BNP > 3,000 on admission and on repeat testing Thoracentesis yielded~1450 mL of serous fluid on the R side. CXR showed no pneumothorax after thoracentesis. Will resume heparin tonight. Can resume Eliquis tomorrow if hemoglobin stable. Lasix held to do worsening renal function Echo shows no significant change from 08/06/22: normal systolic function, akinesis of distal inferior wall, EF 50-55%, moderate valvular aortic stenosis, moderate MR and TR ECG: ventricularly paced rhythm (vent rate 78, atrial rate 81) #urinary retention, acute Likely due to constipation which improved over suppository. Bladder scan 420 mL Booker catheter in place Strict Is and Os UA and lytes - consistent with pre-renal #Chronic kidney disease, stage 3 #hyperkalemia S/p nephrectomy in 1997 for renal malignancy. Cr 1.80, suspect some cardio-renal component. Hold Lasix Patient follows with nephrology. Cammy is not interested in dialysis. On Patiromer, potassium at 5.4 (down from 6), repeat EKG is stable, shows v- paced rhythm Monitor Is and Os #COPD with asthma: 2L cannula, SpO2 improved to high 90s% during thoracentesis, oxygen decreased to 2L Trilegy Duoneb treatments as needed Ellipta May need 2 step prior to discharge if may need increased O2 with exertion #constipation, nausea improved after suppository #Hypertension: Isosorbide 90mg, Atenolol 50mg, amlodipine 10mg Holding Losartan 25mg given hyperkalemia #Hyperlipidemia: Continue Simvastatin 20mg #Atrial fibrillation: A Fib with hx of multiple DVTs on at home Xarelto [id number] score of 7 #Diabetes mellitus, type 2: Carb consistent diet Sitagliptin on hold ISS while inpatient Code status: full DVT ppx: SQ heparin held until later tonight given recent thoracentesis FENGI: Carb consistent, low sodium, heart healthy, Renal diet Dispo: PCU, 2 STEP prior to d/c Admission and Anticipated Discharge Date Admission Date: September 10, 2022 Supervising Physician Co-Signing Physician Notes Medical Student Supervision Note: I was personally present during medical student patient encounter and independently interviewed and examined the patient and verified the gamez history and physical, reviewed labs and image studies, discussed the case with Mckay Posey and agree with the findings and care plan. Breathing better after thoracentesis. No other concerns. AAOx3 No respiratory distress. Lungs - decreased breath sounds at base. Heart- regular. Acute on chronic resp failure (on 2L O2 at home) - continue NC O2. bipap at night. Acute on chronic diastolic CHF exacerbation - continue diuretics. fluid balance neg. Pleural effusion - underwent thoracentesis today. Moderate /MR/TR - no new concern COPD with asthma (Gold class E) - continue home inhaler A fib - in sinus rhythm. holdig apixaban. resume heparin for DVT proph in am Urinary retention - trial voiding in am Solitary kidney with CKD III - follow renal function Subjective Mr. Zhu is accompanied by two of her family members. Overnight her BIPAP was uncomfortable so she had a hard time sleeping, but it did help her breathing. She still has SOB at rest and it significantly worsens with movement. No presyncope or syncope. No inspiratory chest pain. No dysuria with the Booker catheter. Constipation is improving. Review of Systems Review of Systems: All systems reviewed & are unremarkable except as noted in HPI & below Physical Exam Physical Exam: Lying supine in bed, NAD Respiratory: Speaking in short sentences, no rales/rhonchi/wheezing Cardiovascular: systolic murmur 3/6, no R/G/, anasarca, pitting edema in the LE BL Skin: no rashes Genitourinary: +Booker catheter with dark yellow output Results & Data Results & Data Vital Signs (Past 12 Hours) Vital Signs Temp Pulse Pulse Pulse Resp BP Pulse Ox 09/17/22 11:07 60 20 97 09/17/22 09:00 09/17/22 07:00 60 09/17/22 08:29 36.9 C 09/17/22 08:00 60 22 151/67 H 94 09/17/22 07:20 62 22 95 09/17/22 03:00 36.6 C 60 18 173/78 H 94 09/17/22 02:19 60 28 H 94 O2 Del Method O2 Flow Rate FiO2 09/17/22 11:07 Nasal Cannula 5 09/17/22 09:00 Nasal Cannula 4 09/17/22 07:00 09/17/22 08:29 09/17/22 08:00 Nasal Cannula 4 09/17/22 07:20 BiPAP 30 09/17/22 03:00 BiPAP 09/17/22 02:19 30 (1) CHF (congestive heart failure) Heart failure chronicity: acute Heart failure type: unspecified Qualified Code(s): I50.9 - Heart failure, unspecified
[2022-09-17 13:29] LABS: Albumin Level 3.3 gm/dl (3.4-5.0); Bilirubin,Total 0.6 mg/dl (0.2-1.0); Total Protein 6.4 gm/dl (6.0-8.3)
--- NOTE | 2022-09-17 13:29 | XRay Report ---
XR chest 1V portable CLINICAL HISTORY: S/P Thoracentesis COMPARISON STUDY: Chest radiograph September 17, 2022 at 5:08 AM. FINDINGS: There is no pneumothorax following thoracentesis. The right pleural effusion has significan tly decreased in size. A left pleural effusion is again noted with left basilar opacity. Right upper lung opacity is similar to prior exam. Pulmonary edema has slightly improved. Cardiomegaly is unchang ed. Left subclavian pacer is in place. IMPRESSION: 1. No pneumothorax following right thoracentesis. Significant decrease in size of the right pleural e ffusion. 2. Mild improvement in pulmonary edema. Persistent left pleural effusion with left basilar opacity. 3. Redemonstration of a right upper lung opacity which should be assessed on follow-up exams to ensur e resolution. ACT 112: Negative or not required by law. Electronically signed by: Jorgito Oseguera M.D. 09/17/2022 1:28 PM
[2022-09-17 14:03] LABS: Glucose Pleural Fluid 116 mg/dl; LDH Pleural Fluid 44 U/L; Total Protein Pleural Fluid < 3.0 gm/dl
--- NOTE | 2022-09-17 14:07 | Electrocardiogram Report ---
Test Reason : Blood Pressure : / mmHG Vent. Rate : 060 BPM Atrial Rate : 153 BPM P-R Int : 000 ms QRS Dur : 210 ms QT Int : 488 ms P-R-T Axes : 000 268 070 degrees QTc Int : 488 ms Ventricular-paced rhythm Abnormal ECG When compared with ECG of 10-SEP-2022 15:38, Vent. rate has decreased BY 18 BPM Confirmed by Desmond Overton ([id number]) on 09/17/2022 2:07:33 PM Referred By: Srini Headley Confirmed By:Desmond Overton
[2022-09-17 15:03] LABS: Appearance Pleural Fluid Clear; Color Pleural Fluid Straw; Lymphocytes, Fluid 82 %; Mono,Macrophage,Mesothelial 13 %; Neutrophils, Fluid 5 %; RBC Pleural Fluid Auto < 2000 /uL; Source Pleural Fluid Right Lung; WBC Pleural Fluid Auto 399 /uL
[2022-09-17] MEDS: ACETAMINOPHEN 325 MG TAB PO PRN (17:35)
[2022-09-17] MEDS: SIMVASTATIN 20 MG TAB PO SCH (22:34)
[2022-09-17] MEDS: ZOLPIDEM TARTRATE 5 MG TAB PO PRN (22:37)
[2022-09-18] MEDS ORDERED: diphenhydrAMINE 50 MG/ML VIAL IV STA (03:00)
[2022-09-18] MEDS ORDERED: MoRPHine SULFATE 2 MG/ML CARP ONE (03:51)
[2022-09-18] MEDS: MoRPHine SULFATE 2 MG/ML CARP IV PRN (03:55)
--- NOTE | 2022-09-18 04:43 | Communication Note ---
Date of Service: September 18, 2022 I was informed by RN of pt's apparent decline in respiratory status, including desaturation to 70s O2% when falling asleep. She was previously on 4L NC and p romptly placed on BIPAP with FiO2 100% maintaining adequate oxygenation. I was asked to come evaluate the patient due to RN report of increasing agitation and restlessness including pt pulling at BIPAP mask and also pulling at Booker catheter. I did order morphine 1 mg IV prior to assessment. Upon my evaluation, I did note diminished breath sounds on inspiration with faint bibasilar crackles. The patient was responsive to commands and did not express being in any pain. She did express discomfort as she gestured toward her feet which I observed to feature 2+ peripheral edema b/l. During my evaluation of the patient, she did not attempt to remove her BIPAP mask or other access lines. She did not appear particularly agitated or restless at the time, however I was informed by RN that this behavior was intermittent. Based on my assessment, this patient's restlessness/agitation is likely due to hospital-induced hyperactive delirium. RN also felt patient was delirious. Given active delirium in the context of her age, tenuous respiratory status and comorbidities, I refrained from ordering benzodiazepines or antipsychotics at the time. I did discuss with RN the need for re-evaluation after a short period of time and potential need for further medication should the patient's agitation continue. We will use such agents cautiously for the aforementioned reasons.
[2022-09-18] MEDS: ALBUT/IPRATROP 3MG/0.5MG NEB 3 ML VIAL NEB SCH ×4 (06:54→19:20)
[2022-09-18] MEDS: POLYETHYLENE (MIRALAX) 17 GM PACK PO SCH ×3 (07:51→19:52)
[2022-09-18] MEDS: amLODIPine BESYLATE 5 MG TAB PO SCH (07:51)
[2022-09-18] MEDS: FLUTICASONE FUROATE 100MCG 14 PUFFS/INHALER INH SCH (07:52)
[2022-09-18] MEDS: ISOSORBIDE MONO EXTENDED REL 30 MG TABCR PO SCH (07:52)
[2022-09-18] MEDS: UMECLIDINIUM/VILANTEROL 62.5/25MCG 7 PUFFS/INHALER INH SCH (07:52)
[2022-09-18] MEDS: ATENOLOL 50 MG TABLET PO SCH (07:53)
[2022-09-18] MEDS: INSULIN ASPART PER UNIT CHARGE SC SCH ×4 (07:53→20:32)
--- NOTE | 2022-09-18 08:18 | Hospitalist Progress Note ---
Date of Service September 18, 2022 Assessment & Plan (1) CHF (congestive heart failure): Plan: Summary: Cammy is an 82 y/o F with PMHx of diastolic CHF, COPD with asthma, CKD 3, prior DVTs, AFIB on Xarelto, tachy-joe syndrome with pacemaker (2016) and DM2 who presented to the ED on 09/10 with worsening SOB. Prior to that on 08/23/22 she was admitted to [facility] for multiple facial fractures after a fall. #acute on chronic, diastolic CHF: Repeat CXR 09/18 compared to 09/17: R pleural effusion recurrence, L pleural effusion enlarged, worsening bilateral pulmonary congestion Chronic and unstable, BNP > 3,000 on admission and on repeat testing Thoracentesis yielded~1450 mL of serous fluid on the R side. Hgb stable after procedure, resumed Eliquis. Lasix 40mg IV daily resumed Pulmonary consults appreciated: BiPAP nightly and PRN, nebulized hypertonic saline, Mucinex. Echo shows no significant change from 08/06/22: normal systolic function, akinesis of distal inferior wall, EF 50-55%, moderate valvular aortic stenosis, moderate MR and TR I/O, daily wt ECG: ventricularly paced rhythm (vent rate 78, atrial rate 81) #urinary retention, acute Likely due to constipation which improved over suppository. Bladder scan 420 mL Booker catheter in place Strict Is and Os UA and lytes - consistent with pre-renal #Chronic kidney disease, stage 3 #hyperkalemia S/p nephrectomy in 1997 for renal malignancy. Cr 1.80, suspect some cardio-renal component. Patient follows with nephrology. Cammy is not interested in dialysis. On Patiromer, potassium normalized at 4.7, repeat EKG is stable, shows v-paced rhythm Monitor Is and Os #COPD with asthma: 2L cannula, SpO2 improved to high 90s% during thoracentesis, oxygen decreased to 2L Trilegy Duoneb treatments as needed Ellipta May need 2 step prior to discharge if may need increased O2 with exertion #constipation, nausea improved after suppository #Hypertension: Isosorbide 90mg, Atenolol 50mg, amlodipine 10mg Holding Losartan 25mg given hyperkalemia #Hyperlipidemia: Continue Simvastatin 20mg #Atrial fibrillation: A Fib with hx of multiple DVTs on at home Xarelto [id number] score of 7 #Diabetes mellitus, type 2: Carb consistent diet Sitagliptin on hold ISS while inpatient Code status: full DVT ppx: Thierry HARDIN: Carb consistent, low sodium, heart healthy, Renal diet Dispo: PCU, 2 STEP prior to d/c, PT/OT evaluation prior to d/c Admission and Anticipated Discharge Date Admission Date: September 10, 2022 Supervising Physician Co-Signing Physician Notes Medical Student Supervision Note: I was personally present during medical student patient encounter and independently interviewed and examined the patient and verified the gamez history and physical, reviewed labs and image studies, discussed the case with Mckay Posey and agree with the findings and care plan. No new concerns. breathing stable AAOx3 No respiratory distress. Lungs - decreased breath sounds at base. Heart- regular. Acute on chronic resp failure (on 2L O2 at home) - continue NC O2. bipap at night. Acute on chronic diastolic CHF exacerbation - continue diuretics. fluid balance neg. Pleural effusion - underwent thoracentesis 09/17. Moderate /MR/TR - no new concern COPD with asthma (Gold class E) - continue home inhaler A fib - in sinus rhythm. resume apixaban. Solitary kidney with CKD III - follow renal function Subjective Ms. Zhu was sitting upright in bed today. She did not have any acute concerns, says she feels a little bit better and less SOB, although she still gets SOB with exertion (getting out of bed). She slept fairly well with the nasal cannula last night as the BIPAP was uncomfortable for her nose. Her legs are still uncomfortable but she notes her swelling and abdominal distention are improved. No fevers, chills or dysuria. Review of Systems Review of Systems: All systems reviewed & are unremarkable except as noted in HPI & below Physical Exam Physical Exam: Appearance: sitting upright in chair, NAD, on nasal cannula Respiratory: Speaking in longer sentences. Inspiratory crackles in both lung bases, otherwise CTA without rales/rhonchi/wheeze. Cardiovascular: systolic murmur 3/6, LE pitting edema bilaterally improving, wearing compression stockings Gastrointestinal (Abdomen): No abdominal pain to palpation, no rebound, no guarding Neurologic: Answering questions appropriately, AOx3 Results & Data Results & Data Vital Signs (Past 12 Hours) Vital Signs Temp Pulse Pulse Resp BP Pulse Ox O2 Del Method 09/18/22 08:14 60 09/18/22 07:49 36.6 C 61 18 178/70 H 94 Nasal Cannula 09/18/22 03:06 36.8 C 60 22 142/88 H 90 Oxymask 09/18/22 03:15 75 28 H 93 09/17/22 22:30 Nasal Cannula 09/17/22 23:00 60 09/17/22 22:58 37.1 C 59 L 20 151/68 H 94 Nasal Cannula O2 Flow Rate FiO2 09/18/22 08:14 09/18/22 07:49 4 09/18/22 03:06 15 09/18/22 03:15 40 09/17/22 22:30 4 09/17/22 23:00 09/17/22 22:58 4 Diagnostic Findings Laboratory Results WBC 5.76 K/ul (4.8-10.8) 09/18/22 09:44 RBC 3.17 M/uL (4.20-5.40) L 09/18/22 09:44 Hgb 9.3 g/dl (12.0-16.0) L 09/18/22 09:44 Hct 29.2 % (37.0-47.0) L 09/18/22 09:44 MCV 92.1 fL (80.0-100.0) 09/18/22 09:44 MCH 29.3 pg (25.0-34.0) 09/18/22 09:44 MCHC 31.8 g/dL (32.0-36.0) L 09/18/22 09:44 RDW Std Deviation 46.5 fL (36.4-46.3) H 09/18/22 09:44 RDW Coeff of Stephane 13.6 % (11.5-14.5) 09/18/22 09:44 Plt Count 191 K/uL (130-400) 09/18/22 09:44 MPV 10.5 fL (9.4-12.4) 09/18/22 09:44 Immature Gran % (Auto) 0.5 % 09/18/22 09:44 Neut % (Auto) 76.6 % 09/18/22 09:44 Lymph % (Auto) 11.1 % 09/18/22 09:44 Braxton % (Auto) 10.4 % 09/18/22 09:44 Eos % (Auto) 0.7 % 09/18/22 09:44 Baso % (Auto) 0.7 % 09/18/22 09:44 Neut # (Auto) 4.41 K/uL (1.40-6.50) 09/18/22 09:44 Lymph # (Auto) 0.64 K/uL (1.2-3.4) L 09/18/22 09:44 Braxton # (Auto) 0.60 K/uL (0.11-0.59) H 09/18/22 09:44 Eos # (Auto) 0.04 K/uL (0-0.50) 09/18/22 09:44 Baso # (Auto) 0.04 K/uL (0-0.2) 09/18/22 09:44 Immature Gran # (Auto) 0.03 K/uL (0.01-0.20) 09/18/22 09:44 Platelet Estimate Normal (Normal) 09/13/22 05:39 RBC Morphology Unremarkable 09/13/22 05:39 PT 12.9 Seconds (9.0-12.0) H 09/10/22 15:42 INR 1.2 (0.9-1.1) H 09/10/22 15:42 APTT 27.3 Seconds (21.0-31.0) 09/10/22 15:42 PTT Ratio 1.0 09/10/22 15:42 VBG pH 7.43 (7.36-7.41) H 09/17/22 05:52 VBG pCO2 51 mmHg (38-50) H 09/17/22 05:52 VBG pO2 58 mmHg 09/17/22 05:52 VBG HCO3 34 mmol/L 09/17/22 05:52 VBG O2 Saturation 91.3 % 09/17/22 05:52 VBG Base Excess 8.0 mEq/L 09/17/22 05:52 Sodium 131 mmol/L (136-145) L 09/18/22 09:44 Sodium 132 mmol/L (136-145) L 09/18/22 09:44 Potassium 4.6 mmol/L (3.5-5.1) 09/18/22 09:44 Potassium 4.7 mmol/L (3.5-5.1) 09/18/22 09:44 Chloride 93 mmol/L (98-107) L 09/18/22 09:44 Chloride 94 mmol/L (98-107) L 09/18/22 09:44 Carbon Dioxide 33 mmol/L (21-32) H 09/18/22 09:44 Carbon Dioxide 36 mmol/L (21-32) H 09/18/22 09:44 Anion Gap 2 (3-11) L 09/18/22 09:44 Anion Gap 5 (3-11) 09/18/22 09:44 BUN 59 mg/dl (6-23) H 09/18/22 09:44 BUN 60 mg/dl (6-23) H 09/18/22 09:44 Creatinine 1.78 mg/dl (0.6-1.2) H 09/18/22 09:44 Creatinine 1.80 mg/dl (0.6-1.2) H 09/18/22 09:44 Est Cr Clr Drug Dosing 26.4 ml/min 09/18/22 09:44 Est Cr Clr Drug Dosing 26.7 ml/min 09/18/22 09:44 Est GFR ( Amer) 29.4 ml/min 09/18/22 09:44 Est GFR ( Amer) 29.8 ml/min 09/18/22 09:44 Est GFR (Non-Af Amer) 25.4 ml/min 09/18/22 09:44 Est GFR (Non-Af Amer) 25.7 ml/min 09/18/22 09:44 BUN/Creatinine Ratio 32.8 (10-20) H 09/18/22 09:44 BUN/Creatinine Ratio 33.7 (10-20) H 09/18/22 09:44 Glucose 151 mg/dl (70-99(Fasting)) H 09/18/22 09:44 Glucose 152 mg/dl (70-99(Fasting)) H 09/18/22 09:44 POC Glucose 175 mg/dl (70-99) H 09/18/22 16:24 Estimat Average Glucose 111 mg/dl 09/11/22 06:00 Hemoglobin A1c 5.5 % (4.5-5.6) 09/11/22 06:00 Calcium 9.1 mg/dl (8.6-10.3) 09/18/22 09:44 Calcium 9.2 mg/dl (8.6-10.3) 09/18/22 09:44 Phosphorus 3.8 mg/dl (2.5-4.9) 09/18/22 09:44 Magnesium 2.3 mg/dl (1.7-2.4) 09/17/22 05:52 Total Bilirubin 0.6 mg/dl (0.2-1.0) 09/18/22 09:44 AST 17 U/L (13-39) 09/18/22 09:44 ALT 13 U/L (7-52) 09/18/22 09:44 Alkaline Phosphatase 46 U/L (34-104) 09/18/22 09:44 Lactate Dehydrogenase 196 U/L (86-244) 09/17/22 12:40 Troponin I High Sens 14.4 pg/ml (0-14) H 09/11/22 00:40 B-Natriuretic Peptide 3578 pg/ml (0-100) H 09/16/22 09:01 Total Protein 5.9 gm/dl (6.0-8.3) L 09/18/22 09:44 Albumin 3.0 gm/dl (3.4-5.0) L 09/18/22 09:44 Albumin 3.1 gm/dl (3.4-5.0) L 09/18/22 09:44 Globulin 2.8 gm/dl (2.5-4.0) 09/18/22 09:44 Albumin/Globulin Ratio 1.1 (0.9-2) 09/18/22 09:44 Urine Color Dark Yellow 09/15/22 09:10 Urine Appearance Clear (Clear) 09/15/22 09:10 Urine pH 5.0 (4.5-7.5) 09/15/22 09:10 Ur Specific [place] 1.016 (1.000-1.030) 09/15/22 09:10 Urine Protein Negative (Negative) 09/15/22 09:10 Urine Glucose (UA) Negative (Negative) 09/15/22 09:10 Urine Ketones Negative (Negative) 09/15/22 09:10 Urine Blood Negative (Negative) 09/15/22 09:10 Urine Nitrite Negative (Negative) 09/15/22 09:10 Urine Bilirubin Negative (Negative) 09/15/22 09:10 Urine Urobilinogen Negative (Negative) 09/15/22 09:10 Ur Leukocyte Esterase Negative (Negative) 09/15/22 09:10 Urine WBC (Auto) 10-30 /hpf (0-5) H 09/10/22 Unknown Urine RBC (Auto) 0-4 /hpf (0-4) 09/10/22 Unknown U Hyaline Cast (Auto) 1-5 /lpf (0-5) 09/10/22 Unknown U Epithel Cells (Auto) >30 /lpf (0-5) H 09/10/22 Unknown Urine Bacteria (Auto) Negative (Negative) 09/10/22 Unknown Ur Random Creatinine 134.0 mg/dl 09/15/22 09:10 Ur Random Sodium < 10 mmol/L 09/15/22 09:10 Fluid Neutrophils % 5 % 09/17/22 11:40 Fluid Lymphocytes % 82 % 09/17/22 11:40 Fluid Meso/Macro/Braxton % 13 % 09/17/22 11:40 Fluid Comment 09/17/22 11:40 Pleural Fluid Source Right Lung 09/17/22 11:40 Pleural Color Straw 09/17/22 11:40 Pleural Appearance Clear 09/17/22 11:40 Pleural pH 7.47 (7.3-7.4) H 09/17/22 11:40 Pleural WBC (Auto) 399 /uL 09/17/22 11:40 Pleural RBC (Auto) < 2000 /uL 09/17/22 11:40 Pleural Total Protein < 3.0 gm/dl 09/17/22 11:40 Pleural LDH 44 U/L 09/17/22 11:40 Pleural Glucose 116 mg/dl 09/17/22 11:40 SARS-CoV-2, RNA, NAAT NEGATIVE (NEGATIVE) 09/10/22 15:51 Impressions Renal Ultrasound 09/16/22 14:08 RENAL ULTRASOUND HISTORY: Acute kidney injury jolene, single kidney COMPARISON: CT 06/26/2021 FINDINGS: Right kidney: 12.2 x 5.4 x 5.3 No hydronephrosis. Mild diffuse cortical thinning again noted.. Left kidney: Surgically absent. Bladder: Decompressed urinary bladder with Booker catheter in place. IMPRESSION: 1. Cortical thinning of the right kidney redemonstrated. No renal calculi or hydronephrosis. 2. Left nephrectomy. 3. Decompressed urinary bladder with Booker catheter. ACT 112: Negative or not required by law. Electronically signed by: Marko Padron M.D. 09/16/2022 4:10 PM Chest X-Ray 09/18/22 07:00 XR chest 1V portable CLINICAL HISTORY: f/u TECHNIQUE: Single frontal radiograph of the chest was obtained. Comparison: Comparison is made to chest radiograph 09/17/2022 FINDINGS: Dual lead pacemaker is seen. Cardiomegaly is noted. There is prominence and cephalization of the vasculature with Tessa B lines seen. Central airspace opacities are noted in addition to the previously noted right upper lung ai rspace opacity. Small bilateral pleural effusions are seen. IMPRESSION: 1. Cardiomegaly and moderate pulmonary edema. Central airspace opacities may represent alveolar edema, less likely aspiration/pneumonia. This is increased from prior exam. 2. Right upper lung airspace opacity is unchanged from prior exam. 3. Small bilateral pleural effusion. ACT 112: Negative or not required by law. Electronically signed by: Dustin Danielson M.D. 09/18/2022 8:25 AM (1) CHF (congestive heart failure) Heart failure chronicity: acute Heart failure type: unspecified Qualified Code(s): I50.9 - Heart failure, unspecified
--- NOTE | 2022-09-18 08:26 | XRay Report ---
XR chest 1V portable CLINICAL HISTORY: f/u TECHNIQUE: Single frontal radiograph of the chest was obtained. Comparison: Comparison is made to chest radiograph 09/17/2022 FINDINGS: Dual lead pacemaker is seen. Cardiomegaly is noted. There is prominence and cephalization of the vasc ulature with Tessa B lines seen. Central airspace opacities are noted in addition to the previously noted right upper lung airspace opacity. Small bilateral pleural effusions are seen. IMPRESSION: 1. Cardiomegaly and moderate pulmonary edema. Central airspace opacities may represent alveolar jolie a, less likely aspiration/pneumonia. This is increased from prior exam. 2. Right upper lung airspace opacity is unchanged from prior exam. 3. Small bilateral pleural effusion. ACT 112: Negative or not required by law. Electronically signed by: Dustin Danielson M.D. 09/18/2022 8:25 AM
--- NOTE | 2022-09-18 08:41 | Pulmonology Progress Note ---
Date of Service September 18, 2022 Assessment & Plan (1) SOB (shortness of breath): (2) CHF (congestive heart failure): Heart failure chronicity: acute Heart failure type: unspecified Qualified Code(s): I50.9 - Heart failure, unspecified (3) Acute on chronic respiratory failure with hypoxemia: (4) Pleural effusion: (5) Pulmonary emphysema: (6) Pulmonary hypertension: (7) Pulmonary nodule: Plan Chest x-ray 09/16/2022 personally reviewed: Bilateral costophrenic angles are blunted, increased cardiac silhouette, increased pulmonary vascular markings especially in the right side, single-lead pacemaker --Acute on chronic hypoxic respiratory failure with bilateral pleural effusion On 2 L oxygen at home Likely secondary to fluid overload from CKD plus diastolic CHF S/p right-sided thoracentesis 09/17/2022, 1450 serous fluid removed, lymphocytic transudative as per lights criteria Pleural: LDH 44, total protein <3, pH 7.47, glucose 116 Serum: LDH 196, total protein 6.4 BNP 3578 SARS [place]-2 NAAT negative Continue with diuretics BiPAP nightly and as needed shortness of breath --COPD with emphysema Gold class E Patient does have an allergic component hasabsolute eosinophil count 380 on 06/02/2019 On Trelegy inhaler once a day Albuterol and DuoNeb's nebulized as needed. PFTs 04/09/2021:Moderate COPD, insignificant bronchodilator response, moderate decrease in DLCO which does not correct for VA (Increased FVC by 320 mL, increased FEV1 by 120 mL compared to 03/2020) FVC is 2.08 L 77%, FEV1 1.17 L 61%, FEV1/FVC 57%, RV 127%, TLC 106%, RV/TLC 118%, DLCO 44%, DLCO/VA 61% --Chronic hypoxic respiratory failure On 2 L nasal cannula on exertion Advised patient to keep O2 saturation around 90-92%. She has a pulse ox at home. --Pulmonary hypertension Looking at the pulmonary artery on the CTA done in August 2017 Type II pulmonary hypertension likely from moderate aortic stenosis 2D Echo 09/11/2022: EF 50-55%, moderate aortic stenosis, moderate MR, moderate TR , RV mildly dilated, severe biatrial dilation. MIldly elevated RVSP: 45mmHg. --Pulmonary nodule Right middle lobe 4 mm, last time seen on CTA 08/2017 Stability for more than 3 years Does not need any further follow-up -- Ex-smoker Only [id number] smoking history Quit In the --Sushant gloria On Xarelto Plan: In/out: -2 L, urine output 3052 Chest x-ray from today unfortunately initiation of reaccumulation of right-sided pleural effusion. I think it would be in the best interest for the patient to continue with diuresis, get cardiology input regarding the moderate-severe aortic stenosis that she has and if she will be a candidate for TAVR, given the multiple comorbidities, if the patient is willing that could be thought of. Will defer to cardiology Patient is diuresing well. Recommend continue with diuresis BiPAP nightly and as needed shortness of breath will be beneficial We will add hypertonic saline nebulized as well as Mucinex for chest congestion and difficulty bringing up the phlegm Case discussed with RN and patient's son at bedside Please note the above document was generated using voice recognition software. It may contain grammatical, syntax or spelling errors.Any formal questions or concerns about the content, text or information contained within the body of this dictation should be directly addressed to the provider for clarification. Admission and Anticipated Discharge Date Admission Date: September 10, 2022 Subjective Patient seen and examined at bedside. No acute distress Overnight patient got agitated for which she got a dose of morphine. At the time of examination patient was awake alert oriented. Answering all questions appropriately She stated that she is feeling much better after thoracentesis. Denies any nausea vomiting Has been urinating well Fair appetite. Was saturating 96% on 4 L nasal cannula, I went down to 3 L She does complain of cough and difficulty bringing up the phlegm Review of Systems Review of Systems: All systems reviewed & are unremarkable except as noted in Subjective Physical Exam Physical Exam: Constitutional: No acute distress HEENT: EOMI, PERRLA Respiratory system:Decreased air entry bilaterally, no wheeze, no rhonchi, positive bilateral lower lobe crackles CVS: S1-S2 positive,positive 3 out of 6 systolic murmur appreciated best at the aorta, positive left PPM Abdomen: Soft, nontender, nondistended, positive bowel sounds x4,obese Extremities: +2 pulses bilaterally radialis, no cyanosis,+2 pitting edema left lower extremity Neuro: Awake alert oriented x3 Psych: Normal mood and affect Skin: no rashes, warm and dry Lymphatic: no cervical or axillary lymphadenopathy Results & Data Results & Data Vital Signs (Past 12 Hours) Vital Signs Temp Pulse Pulse Resp BP Pulse Ox O2 Del Method 09/18/22 08:14 60 09/18/22 07:49 36.6 C 61 18 178/70 H 94 Nasal Cannula 09/18/22 03:06 36.8 C 60 22 142/88 H 90 Oxymask 09/18/22 03:15 75 28 H 93 09/17/22 22:30 Nasal Cannula 09/17/22 23:00 60 09/17/22 22:58 37.1 C 59 L 20 151/68 H 94 Nasal Cannula O2 Flow Rate FiO2 09/18/22 08:14 09/18/22 07:49 4 09/18/22 03:06 15 09/18/22 03:15 40 09/17/22 22:30 4 09/17/22 23:00 09/17/22 22:58 4 Laboratory Results 09/17/22 05:52 09/17/22 05:52 PG Care Time/CCT Total # of Minutes Spent Total Time Spent with Patient: Total time spent is greater than 50% in coordination of care (as documented) at patient's floor/unit and/or counseling patient: Coding Level of Care Code 18966 SUB INP/OBS CARE 3/50MIN Diagnoses SOB (shortness of breath) R06.02 CHF (congestive heart failure) I50.9 Heart failure chronicity: acute Heart failure type: unspecified Acute on chronic respiratory failure with hypoxemia J96.21 Pleural effusion J90 Pulmonary emphysema J43.9 Pulmonary hypertension I27.20 Pulmonary nodule R91.1
[2022-09-18 10:40] LABS: Albumin Globulin Ratio 1.1 (0.9-2); Albumin Level 3.1 gm/dl (3.4-5.0); BUN Creatinine Ratio 33.7 (10-20); Bilirubin,Total 0.6 mg/dl (0.2-1.0); Calcium 9.1 mg/dl (8.6-10.3); Creatinine Clr Calc Pharmacy 26.7 ml/min; Est GFR (African American) 29.8 ml/min; Est GFR (Non-African American) 25.7 ml/min; Globulin 2.8 gm/dl (2.5-4.0); Potassium 4.7 mmol/L (3.5-5.1); Total Protein 5.9 gm/dl (6.0-8.3)
[2022-09-18 10:46] LABS: BUN Creatinine Ratio 32.8 (10-20); Calcium 9.2 mg/dl (8.6-10.3); Creatinine Clr Calc Pharmacy 26.4 ml/min; Est GFR (African American) 29.4 ml/min; Est GFR (Non-African American) 25.4 ml/min; Phosphorus 3.8 mg/dl (2.5-4.9); Potassium 4.6 mmol/L (3.5-5.1)
[2022-09-18 10:48] LABS: Basophils # (auto) 0.04 K/uL (0-0.2); Basophils % (auto) 0.7 %; Eosinophils # (auto) 0.04 K/uL (0-0.50); Eosinophils % (auto) 0.7 %; Hematocrit (blood only) 29.2 % (37.0-47.0); Hemoglobin 9.3 g/dl (12.0-16.0); Immature Granulocytes # (auto) 0.03 K/uL (0.01-0.20); Immature Granulocytes % (auto) 0.5 %; Lymphocytes # (auto) 0.64 K/uL (1.2-3.4); Lymphocytes % (auto) 11.1 %; Mean Corpuscular Hemoglobin 29.3 pg (25.0-34.0); Mean Corpuscular Hgb Conc 31.8 g/dL (32.0-36.0); Mean Corpuscular Volume 92.1 fL (80.0-100.0); Mean Platelet Volume 10.5 fL (9.4-12.4); Monocytes % (auto) 10.4 %; Neutrophils # (auto) 4.41 K/uL (1.40-6.50); Neutrophils % (auto) 76.6 %; Platelet Count 191 K/uL (130-400); RDW Coefficient of Variation 13.6 % (11.5-14.5); RDW Standard Deviation 46.5 fL (36.4-46.3); Red Blood Count 3.17 M/uL (4.20-5.40); White Blood Count 5.76 K/ul (4.8-10.8)
[2022-09-18] MEDS: PATIROMER CALCIUM SORBITEX 8.4 GM PACK PO SCH (11:40)
[2022-09-18] MEDS: FUROSEMIDE 40 MG/4 ML VIAL IV SCH (12:29)
--- NOTE | 2022-09-18 16:35 | Nephrology Progress Note ---
Date of Service September 18, 2022 Assessment & Plan (1) YUMIKO (acute kidney injury): (2) Hyperkalemia: (3) Pleural effusion: (4) Anemia: (5) Pedal edema: (6) SOB (shortness of breath): Plan 82 year-old female with solitary right kidney after left nephrectomy for renal cell carcinoma, stage IIIA CKD baseline creatinine 1.2 to 1.3, obesity, CAD, permanent atrial fibrillation, tachycardia-bradycardia syndrome s/p pacemaker placement, HFPEF, history of DVT, history of bleeding hemorrhoids, DM 2, COPD chronic O2 dependent, pulmonary hypertension, asthma, hyperlipidemia, hypertension admitted on September 10 with increasing shortness of breath. Lab showed YUMIKO, creatinine staying around 1.8 with persistent hyperkalemia, has been off of the ARB, received Veltassa yesterday. Prior to that she was admitted in early August after suffering a fall and suffering multiple facial bone fractures. [facility] and returned home on September 05 but struggled with orthopnea and fluid retention since she returned home. She has been treated with IV furosemide since admission. Weight stable. She was noted to have significant bilateral lower excess right effusion and pulmonary congestion s/p The right-sided thoracentesis on 09/17/2022 had 1.4 L fluid removed. Overall she is more than 2.1 L net negative However continues to have respiratory distress with left-sided pleural effusion and over volume overload.. -- Continue Lasix 40 mg IV daily. would recommend considering left-sided thoracentesis, unlikely only diuretic will help with significant left-sided pleural effusion. Continue to strictly monitor intake and output. Keep on low- potassium diet, off of MANDEEP-inhibitor or an ARB. Will follow Admission and Anticipated Discharge Date Admission Date: September 10, 2022 Zuly Chawla was seen and evaluated morning with her son at bedside. She she was having difficulty with breathing and agitation overnight and improved with IV diuretics. Renal function staying relatively stable, electrolyte acceptable. Had right-sided thoracentesis yesterday had 1.4 L fluid removed. Review of Systems Review of Systems: Detailed review of system was done and pertinent positives and negatives were mentioned above. Physical Exam Constitutional: WD/WN, vitals as above + ill appearing; no acute distress Eyes: + anicteric sclerae Neck: normal visual inspection Respiratory: Auscultation: + diminished lung sounds Cardiovascular: Rate/Rhythm: + irregularly irregular Heart Sounds: + murmur Extremities: + edema Skin: no rashes, warm and dry Neurologic: no focal motor deficits and not confused Psychiatric: Orientation: alert and oriented x 3 Results & Data Vital Signs (Past 12 Hours) Vital Signs Temp Pulse Pulse Resp BP Pulse Ox O2 Del Method 09/18/22 15:57 36.5 C 60 18 125/57 L 94 Nasal Cannula 09/18/22 15:24 60 16 95 Nasal Cannula 09/18/22 15:08 63 09/18/22 11:25 36.6 C 60 18 128/62 95 Nasal Cannula 09/18/22 11:09 60 18 93 Nasal Cannula 09/18/22 08:14 60 09/18/22 07:49 36.6 C 61 18 178/70 H 94 Nasal Cannula O2 Flow Rate 09/18/22 15:57 4 09/18/22 15:24 4 09/18/22 15:08 09/18/22 11:25 2 09/18/22 11:09 2 09/18/22 08:14 09/18/22 07:49 4 PG Care Time/CCT Total # of Minutes Spent Total Time Spent with Patient: Total time spent is greater than 50% in coordination of care (as documented) at patient's floor/unit and/or counseling patient: Coding Level of Care Code 28076 SUB INP/OBS CARE 3/50MIN Diagnoses YUMIKO (acute kidney injury) N17.9 Hyperkalemia E87.5 Pleural effusion J90 Anemia D64.9 Anemia type: unspecified type Pedal edema R60.0 SOB (shortness of breath) R06.02 (4) Anemia Anemia type: unspecified type Qualified Code(s): D64.9 - Anemia, unspecified
[2022-09-18] MEDS: SODIUM CHLOR 7% 4 ML NEB NEB SCH (19:20)
[2022-09-18] MEDS: SIMVASTATIN 20 MG TAB PO SCH (20:05)
[2022-09-18] MEDS: guaiFENesin 600 MG TABCR PO SCH (20:05)
[2022-09-18] MEDS: APIXABAN 5 MG TABLET PO SCH (20:05)
[2022-09-19] MEDS: MoRPHine SULFATE 2 MG/ML CARP IV PRN ×2 (02:03→23:38)
--- NOTE | 2022-09-19 07:02 | Hospitalist Progress Note ---
Date of Service September 19, 2022 Assessment & Plan (1) Hyperkalemia: (2) Pleural effusion: (3) Acute on chronic respiratory failure with hypoxemia: (4) SOB (shortness of breath): (5) Anemia: (6) CHF (congestive heart failure): (7) YUMIKO (acute kidney injury): (8) Diabetes mellitus, type 2: Mauri Chawla is an 82 y/o F with PMHx of diastolic CHF, COPD with asthma, CKD 3, prior DVTs, AFIB on Xarelto, tachy-joe syndrome with pacemaker (2016) and DM2 who presented to the ED on 09/10 with worsening SOB. Prior to that on 08/23/22 she was admitted to [facility] for multiple facial fractures after a fall. #acute on chronic, diastolic CHF: Chronic and unstable, BNP > 3,000 on admission and on repeat testing Recurrent pleural effusions despite R-sided thoracentesis (~1450mL) and diuresis Lasix 40mg IV daily Pulmonary consults appreciated: BiPAP nightly and PRN, nebulized hypertonic s brennan, Mucinex. Echo shows no significant change from 08/06/22: normal systolic function, akinesis of distal inferior wall, EF 50-55%, moderate valvular aortic stenosis, moderate MR and TR I/O, daily wt ECG: ventricularly paced rhythm (vent rate 78, atrial rate 81) #aortic stenosis Echo from 08/06/22: moderate valvular aortic stenosis Discussed aortic stenosis with Dr. Novak, did not feel that symptoms likely related to moderate aortic stenosis. Consider TAVR evaluation as an outpatient #urinary retention, resolved Likely due to constipation which improved over suppository. Bladder scan 420 mL Booker catheter removed, urinating without issue Strict Is and Os UA and lytes - consistent with pre-renal #Chronic kidney disease, stage 3 #hyperkalemia On Patiromer, potassium normalized at 4.4, repeat EKG is stable, shows v-paced rhythm S/p nephrectomy in 1997 for renal malignancy. Cr 1.80, suspect some cardio-renal component. Patient follows with nephrology. Cammy is not interested in dialysis. Monitor Is and Os #COPD with asthma: At home O2 requirement is 2L Trilegy Duoneb treatments as needed Ellipta May need 2 step prior to discharge if may need increased O2 with exertion #constipation, nausea improved after suppository #Hypertension: Isosorbide 90mg, Atenolol 50mg, amlodipine 10mg Holding Losartan 25mg given hyperkalemia #Hyperlipidemia: Continue Simvastatin 20mg #Atrial fibrillation: Eliquis 5mg PO BID A Fib with hx of multiple DVTs on at home Xarelto [id number] score of 7 #Diabetes mellitus, type 2: Carb consistent diet Sitagliptin on hold ISS while inpatient Code status: full DVT ppx: Eliquis 5mg PO BID FENGI: Carb consistent, low sodium, heart healthy, Renal diet Dispo: PCU, 2 STEP prior to d/c, PT/OT evaluation prior to d/c Admission and Anticipated Discharge Date Admission Date: September 10, 2022 Zuly Chawla was sitting upright in her hospital bed and notes she slept well. The larger BIPAP mask she trialed was a bit more comfortable but was still uncomfortable on her nose. Her SOB is fairly stable but continues to worsen with exertion. No LH, dizziness when transferring from the bed to chair. After removing the Booker cathether last night she was able to urinate twice since then, without dysuria. Her legs continue to be swollen but improved sine admission. Her appetite is OK. She also notes some swelling of left hand that has been there since yesterday, denies any pain. She is open to the idea of going to a rehab facility. Review of Systems Review of Systems: All systems reviewed & are unremarkable except as noted in HPI & below Physical Exam Physical Exam: Appearance: upright in chair, NAD, appears rested Respiratory: Nasal cannula; no conversational dyspnea; inspiratory crackles in lung bases bilaterally, and left middle lobe; otherwise no rales/rhonchi/wheezing Cardiovascular: Normal S1, S2 with systoli murmur in the aortic area Gastrointestinal (Abdomen): Active bowel bounds, some tenderness to RLQ, no rebound/guarding Lymphatic: no compression stockings; 2+ pitting edema in lower extremities bilaterally, with significant varicosities on the L lower extremity. +1 pitting edema of left hand and forearm. Results & Data Results & Data Vital Signs (Past 12 Hours) Vital Signs Temp Pulse Pulse Resp BP Pulse Ox Pulse Ox 09/19/22 06:44 85 L 09/19/22 03:20 36.6 C 60 18 153/59 H 93 09/19/22 01:04 09/19/22 00:01 93 05/31/23 23:59 74 09/18/22 23:03 61 26 H 97 09/18/22 22:32 36.4 C L 67 20 137/62 94 09/18/22 20:13 36.5 C 65 18 148/74 H 94 09/18/22 19:58 09/18/22 19:22 61 23 94 O2 Del Method O2 Del Method O2 Flow Rate O2 Flow Rate FiO2 09/19/22 06:44 Nasal Cannula 3 09/19/22 03:20 Nasal Cannula 4 09/19/22 01:04 BiPAP 50 09/19/22 00:01 Nasal Cannula 3 09/18/22 23:59 09/18/22 23:03 50 09/18/22 22:32 BiPAP 09/18/22 20:13 Nasal Cannula 4 09/18/22 19:58 Nasal Cannula 4 09/18/22 19:22 Nasal Cannula 4 Resident Activity Tracking Resident Involvement: Resident Care Provided Care Provided: Adult Hospital Medicine (5) Anemia Anemia type: unspecified type Qualified Code(s): D64.9 - Anemia, unspecified (6) CHF (congestive heart failure) Heart failure chronicity: acute Heart failure type: unspecified Qualified Code(s): I50.9 - Heart failure, unspecified
[2022-09-19] MEDS: ALBUT/IPRATROP 3MG/0.5MG NEB 3 ML VIAL NEB SCH ×4 (07:16→19:23)
[2022-09-19] MEDS: SODIUM CHLOR 7% 4 ML NEB NEB SCH ×2 (07:17→19:23)
[2022-09-19 07:39] LABS: Hemoglobin 9.3 g/dl (12.0-16.0); Mean Corpuscular Hemoglobin 29.2 pg (25.0-34.0); Mean Platelet Volume 10.2 fL (9.4-12.4); Platelet Count 175 K/uL (130-400); RDW Coefficient of Variation 13.5 % (11.5-14.5); RDW Standard Deviation 46.4 fL (36.4-46.3); Red Blood Count 3.19 M/uL (4.20-5.40); White Blood Count 6.26 K/ul (4.8-10.8)
--- NOTE | 2022-09-19 07:46 | Pulmonology Progress Note ---
Date of Service September 19, 2022 Assessment & Plan (1) SOB (shortness of breath): (2) CHF (congestive heart failure): Heart failure chronicity: acute Heart failure type: unspecified Qualified Code(s): I50.9 - Heart failure, unspecified (3) Acute on chronic respiratory failure with hypoxemia: (4) Pleural effusion: (5) Pulmonary emphysema: (6) Pulmonary hypertension: (7) Pulmonary nodule: Plan Chest x-ray 09/16/2022 personally reviewed: Bilateral costophrenic angles are blunted, increased cardiac silhouette, increased pulmonary vascular markings especially in the right side, single-lead pacemaker --Acute on chronic hypoxic respiratory failure with bilateral pleural effusion On 2 L oxygen at home Likely secondary to fluid overload from CKD plus diastolic CHF S/p right-sided thoracentesis 09/17/2022, 1450 serous fluid removed, lymphocytic transudative as per lights criteria Pleural: LDH 44, total protein <3, pH 7.47, glucose 116 Serum: LDH 196, total protein 6.4 BNP 3578 SARS [place]-2 NAAT negative Continue with diuretics BiPAP nightly and as needed shortness of breath --COPD with emphysema Gold class E Patient does have an allergic component hasabsolute eosinophil count 380 on 06/02/2019 On Trelegy inhaler once a day Albuterol and DuoNeb's nebulized as needed. PFTs 04/09/2021:Moderate COPD, insignificant bronchodilator response, moderate decrease in DLCO which does not correct for VA (Increased FVC by 320 mL, increased FEV1 by 120 mL compared to 03/2020) FVC is 2.08 L 77%, FEV1 1.17 L 61%, FEV1/FVC 57%, RV 127%, TLC 106%, RV/TLC 118%, DLCO 44%, DLCO/VA 61% --Chronic hypoxic respiratory failure On 2 L nasal cannula on exertion Advised patient to keep O2 saturation around 90-92%. She has a pulse ox at home. --Pulmonary hypertension Looking at the pulmonary artery on the CTA done in August 2017 Type II pulmonary hypertension likely from moderate aortic stenosis 2D Echo 09/11/2022: EF 50-55%, moderate aortic stenosis, moderate MR, moderate TR , RV mildly dilated, severe biatrial dilation. MIldly elevated RVSP: 45mmHg. --Pulmonary nodule Right middle lobe 4 mm, last time seen on CTA 08/2017 Stability for more than 3 years Does not need any further follow-up -- Ex-smoker Only 28-pols-sspe smoking history Quit In the --A. fib On Xarelto Plan: In/out: +165, urine output 375. Patient is Booker catheter has been discontinued. I am not sure if they are measuring all the urine output. BiPAP nightly and as needed shortness of breath will be beneficial Continue with hypertonic saline nebulized as well as Mucinex for chest congestion and difficulty bringing up the phlegm Case discussed with RN and patient's son at bedside Please note the above document was generated using voice recognition software. It may contain grammatical, syntax or spelling errors.Any formal questions or concerns about the content, text or information contained within the body of this dictation should be directly addressed to the provider for clarification. Admission and Anticipated Discharge Date Admission Date: September 10, 2022 Subjective Patient seen and examined at bedside. No acute distress, no adverse events overnight She was saturating 91-92% on 2 L nasal cannula at rest She did use her BiPAP overnight and felt better with it and slept well as well. Denies any nausea vomiting Fair appetite Overall she is feeling better but does get short of breath on exertion Review of Systems Review of Systems: All systems reviewed & are unremarkable except as noted in Subjective Physical Exam Physical Exam: Constitutional: No acute distress HEENT: EOMI, PERRLA Respiratory system:Decreased air entry bilaterally, no wheeze, no rhonchi, positive bilateral lower lobe crackles CVS: S1-S2 positive,positive 3 out of 6 systolic murmur appreciated best at the aorta, positive left PPM Abdomen: Soft, nontender, nondistended, positive bowel sounds x4,obese Extremities: +2 pulses bilaterally radialis, no cyanosis,+3 pitting edema left lower extremity Neuro: Awake alert oriented x3 Psych: Normal mood and affect G/U: No Booker Skin: no rashes, warm and dry Lymphatic: no cervical or axillary lymphadenopathy Results & Data Results & Data Vital Signs (Past 12 Hours) Vital Signs Temp Pulse Pulse Resp BP Pulse Ox Pulse Ox 09/19/22 07:34 64 09/19/22 07:18 60 20 94 09/19/22 06:44 85 L 09/19/22 03:20 36.6 C 60 18 153/59 H 93 06/01/23 01:04 09/19/22 00:01 93 09/18/22 23:59 74 09/18/22 23:03 61 26 H 97 09/18/22 22:32 36.4 C L 67 20 137/62 94 09/18/22 20:13 36.5 C 65 18 148/74 H 94 09/18/22 19:58 O2 Del Method O2 Del Method O2 Flow Rate O2 Flow Rate FiO2 09/19/22 07:34 09/19/22 07:18 Nasal Cannula 6 09/19/22 06:44 Nasal Cannula 3 09/19/22 03:20 Nasal Cannula 4 09/19/22 01:04 BiPAP 50 09/19/22 00:01 Nasal Cannula 3 09/18/22 23:59 09/18/22 23:03 50 09/18/22 22:32 BiPAP 09/18/22 20:13 Nasal Cannula 4 09/18/22 19:58 Nasal Cannula 4 Laboratory Results 09/19/22 06:30 PG Care Time/CCT Total # of Minutes Spent Total Time Spent with Patient: Total time spent is greater than 50% in coordination of care (as documented) at patient's floor/unit and/or counseling patient: Coding Level of Care Code 13640 SUB INP/OBS CARE 2/35MIN Diagnoses SOB (shortness of breath) R06.02 CHF (congestive heart failure) I50.9 Heart failure chronicity: acute Heart failure type: unspecified Acute on chronic respiratory failure with hypoxemia J96.21 Pleural effusion J90 Pulmonary emphysema J43.9 Pulmonary hypertension I27.20 Pulmonary nodule R91.1
[2022-09-19 07:59] LABS: Albumin Level 3.1 gm/dl (3.4-5.0); BUN Creatinine Ratio 34.4 (10-20); Creatinine Clr Calc Pharmacy 30.3 ml/min; Est GFR (African American) 34.7 ml/min; Phosphorus 4.1 mg/dl (2.5-4.9); Potassium 4.4 mmol/L (3.5-5.1)
[2022-09-19] MEDS: INSULIN ASPART PER UNIT CHARGE SC SCH ×4 (08:11→20:18)
[2022-09-19] MEDS: FLUTICASONE FUROATE 100MCG 14 PUFFS/INHALER INH SCH (08:30)
[2022-09-19] MEDS: ISOSORBIDE MONO EXTENDED REL 30 MG TABCR PO SCH (08:30)
[2022-09-19] MEDS: amLODIPine BESYLATE 5 MG TAB PO SCH ×2 (08:31→09:36)
[2022-09-19] MEDS: guaiFENesin 600 MG TABCR PO SCH ×2 (08:32→20:01)
[2022-09-19] MEDS: APIXABAN 5 MG TABLET PO SCH ×2 (08:32→20:01)
[2022-09-19] MEDS: ATENOLOL 50 MG TABLET PO SCH (08:37)
[2022-09-19] MEDS: UMECLIDINIUM/VILANTEROL 62.5/25MCG 7 PUFFS/INHALER INH SCH (08:38)
[2022-09-19] MEDS: POLYETHYLENE (MIRALAX) 17 GM PACK PO SCH ×3 (08:40→20:01)
--- NOTE | 2022-09-19 09:21 | XRay Report ---
XR chest 1V portable HISTORY: Shortness of breath. f/u COMPARISON: Chest 09/18/2022. FINDINGS: No pneumothorax. Cardiomegaly is again noted. Mild pulmonary edema has slightly improved. S mall right and moderate left pleural effusions remain unchanged. Focal lobular right upper lobe opaci ty remains unchanged. Bibasilar densities persist. IMPRESSION: 1. Slight improvement in the mild interstitial pulmonary edema. 2. Bilateral pleural effusions and bibasilar densities persist. 3. No change in the focal lobular right upper lobe opacity. Recommend follow-up to ensure resolution. ACT 112: Negative or not required by law. Electronically signed by: Chalino Cooper M.D. 09/19/2022 9:19 AM
[2022-09-19] MEDS: FUROSEMIDE 40 MG/4 ML VIAL IV SCH (09:40)
--- NOTE | 2022-09-19 10:16 | Nephrology Progress Note ---
Date of Service September 19, 2022 Assessment & Plan (1) YUMIKO (acute kidney injury): (2) Hyperkalemia: (3) Pleural effusion: (4) Anemia: (5) Pedal edema: (6) SOB (shortness of breath): Plan 82 year-old female with solitary right kidney after left nephrectomy for renal cell carcinoma, stage IIIA CKD baseline creatinine 1.2 to 1.3, obesity, CAD, permanent atrial fibrillation, tachycardia-bradycardia syndrome s/p pacemaker placement, HFPEF, history of DVT, history of bleeding hemorrhoids, DM 2, COPD chronic O2 dependent, pulmonary hypertension, asthma, hyperlipidemia, hypertension admitted on September 10 with increasing shortness of breath. Lab showed YUMIKO, creatinine staying around 1.8 with persistent hyperkalemia, has been off of the ARB, received Veltassa yesterday. Prior to that she was admitted in early August after suffering a fall and suffering multiple facial bone fractures. She was discharged to [facility] for rehab and returned home on September 05 but struggled with orthopnea and fluid retention since she returned home. She has been treated with IV furosemide since admission. Weight stable. Overall she is doing better clinically. Cr improved. --continue Lasix 40 mg IV daily. . Continue to strictly monitor intake and output. Keep on low-potassium diet, off of MANDEEP-inhibitor or an ARB. --lab in am Will follow Admission and Anticipated Discharge Date Admission Date: September 10, 2022 Zuly Chawla was seen and evaluated this morning. Overall she is feeling better. Renal function staying relatively stable, electrolyte acceptable. UO only 700 ml overnight. Review of Systems Review of Systems: Detailed review of system was done and pertinent positives and negatives were mentioned above. Physical Exam Constitutional: WD/WN, vitals as above no acute distress Eyes: + anicteric sclerae Neck: normal visual inspection Respiratory: Auscultation: + diminished lung sounds Cardiovascular: Rate/Rhythm: + irregularly irregular Heart Sounds: + murmur Extremities: + edema Skin: no rashes, warm and dry Neurologic: no focal motor deficits Psychiatric: Orientation: alert and oriented x 3 Results & Data Vital Signs (Past 12 Hours) Vital Signs Temp Pulse Pulse Resp BP Pulse Ox Pulse Ox 09/19/22 08:40 135/54 L 09/19/22 08:05 36.8 C 87 19 95/59 L 94 09/19/22 07:34 64 06/01/23 07:18 60 20 94 09/19/22 06:44 85 L 09/19/22 03:20 36.6 C 60 18 153/59 H 93 09/19/22 01:04 09/19/22 00:01 93 09/18/22 23:59 74 09/18/22 23:03 61 26 H 97 09/18/22 22:32 36.4 C L 67 20 137/62 94 O2 Del Method O2 Del Method O2 Flow Rate O2 Flow Rate FiO2 09/19/22 08:40 09/19/22 08:05 Room Air, Nasal Cannula 6 09/19/22 07:34 09/19/22 07:18 Nasal Cannula 6 09/19/22 06:44 Nasal Cannula 3 09/19/22 03:20 Nasal Cannula 4 09/19/22 01:04 BiPAP 50 09/19/22 00:01 Nasal Cannula 3 09/18/22 23:59 09/18/22 23:03 50 09/18/22 22:32 BiPAP PG Care Time/CCT Total # of Minutes Spent Total Time Spent with Patient: Total time spent is greater than 50% in coordination of care (as documented) at patient's floor/unit and/or counseling patient: Coding Level of Care Code 25018 SUB INP/OBS CARE 2/35MIN Diagnoses YUMIKO (acute kidney injury) N17.9 Hyperkalemia E87.5 Pleural effusion J90 Anemia D64.9 Anemia type: unspecified type Pedal edema R60.0 SOB (shortness of breath) R06.02 (4) Anemia Anemia type: unspecified type Qualified Code(s): D64.9 - Anemia, unspecified
[2022-09-19] MEDS: ACETAMINOPHEN 325 MG TAB PO PRN (19:59)
[2022-09-19] MEDS: MELATONIN 3 MG TAB PO PRN (20:00)
[2022-09-19] MEDS: SIMVASTATIN 20 MG TAB PO SCH (20:00)
[2022-09-20 07:21] LABS: Hematocrit (blood only) 28.8 % (37.0-47.0); Hemoglobin 9.1 g/dl (12.0-16.0); Mean Corpuscular Hemoglobin 29.3 pg (25.0-34.0); Mean Corpuscular Hgb Conc 31.6 g/dL (32.0-36.0); Mean Corpuscular Volume 92.6 fL (80.0-100.0); Platelet Count 175 K/uL (130-400); RDW Coefficient of Variation 13.6 % (11.5-14.5); RDW Standard Deviation 46.5 fL (36.4-46.3); Red Blood Count 3.11 M/uL (4.20-5.40); White Blood Count 5.42 K/ul (4.8-10.8)
[2022-09-20] MEDS: SODIUM CHLOR 7% 4 ML NEB NEB SCH ×2 (07:21→19:32)
[2022-09-20] MEDS: ALBUT/IPRATROP 3MG/0.5MG NEB 3 ML VIAL NEB SCH ×4 (07:21→19:32)
--- NOTE | 2022-09-20 07:41 | Hospitalist Progress Note ---
Date of Service September 20, 2022 Assessment & Plan (1) Hyperkalemia: (2) Pleural effusion: (3) Acute on chronic respiratory failure with hypoxemia: (4) SOB (shortness of breath): (5) Anemia: (6) CHF (congestive heart failure): (7) YUMIKO (acute kidney injury): (8) Diabetes mellitus, type 2: (9) Ventricular tachycardia: Mauri Chawla is an 82 y/o F with PMHx of diastolic CHF, COPD with asthma, CKD 3, prior DVTs, AFIB on Xarelto, tachy-joe syndrome with pacemaker (2016) and DM2 who presented to the ED on 09/10 with worsening SOB. Prior to that on 08/23/22 she was admitted to [facility] for multiple facial fractures after a fall. #acute on chronic, diastolic CHF: Chronic and unstable, BNP > 3,000 on admission and on repeat testing Recurrent pleural effusions despite R-sided thoracentesis (~1450mL, transudative exudate) and diuresis Lasix 40mg IV BID Pulmonary consults appreciated: BiPAP nightly and PRN, nebulized hypertonic saline, Mucinex. Echo shows no significant change from 08/06/22: normal systolic function, akinesis of distal inferior wall, EF 50-55%, moderate valvular aortic stenosis, moderate MR and TR I/O, daily wt ECG: ventricularly paced rhythm (vent rate 78, atrial rate 81) #ventricular tachycardia 23 beat run of ventricular tachycardia Patient was largely asymptomatic during this episode. Due to labile HR and BP will hold off on adjusting atenolol for now. #aortic stenosis Echo from 08/06/22: moderate valvular aortic stenosis Consider TAVR evaluation as an outpatient #urinary retention, resolved Likely due to constipation which improved over suppository. Bladder scan 420 mL Booker catheter removed, urinating without issue Strict Is and Os UA and lytes - consistent with pre-renal #Chronic kidney disease, stage 3 #hyperkalemia potassium normalized at 4.2, Patiromer discontinued, repeat EKG is stable, shows v-paced rhythm S/p nephrectomy in 1997 for renal malignancy. Cr 1.48 Patient follows with nephrology. Cammy is not interested in dialysis. Monitor Is and Os #COPD with asthma: At home O2 requirement is 2L Trilegy Duoneb treatments as needed Ellipta May need 2 step prior to discharge if may need increased O2 with exertion #constipation, nausea improved after suppository #Hypertension: Isosorbide 90mg, Atenolol 50mg, amlodipine 10mg Holding Losartan 25mg given hyperkalemia #Hyperlipidemia: Continue Simvastatin 20mg #Atrial fibrillation: Eliquis 5mg PO BID A Fib with hx of multiple DVTs on at home Xarelto [id number] score of 7 #Diabetes mellitus, type 2: Carb consistent diet Sitagliptin on hold ISS while inpatient #anemia -suspect CKD component, Hgb stable during admission Code status: full DVT ppx: Eliquis 5mg PO BID FENGI: Carb consistent, low sodium, heart healthy, Renal diet Dispo: PCU, 2 STEP prior to d/c, PT/OT evaluation prior to d/c 6-click OT score 20 6-click PT score 17 Admission and Anticipated Discharge Date Admission Date: September 10, 2022 Supervising Physician Co-Signing Physician Notes Medical Student Supervision Note: I was personally present during medical student patient encounter and independently interviewed and examined the patient and verified the gamez history and physical, reviewed labs and image studies, discussed the case with Mckay Posey and agree with the findings and care plan. No new concerns. breathing stable AAOx3 No respiratory distress. Lungs - decreased breath sounds at base. Heart- regular. Acute on chronic resp failure (on 2L O2 at home) - continue NC O2. bipap at night - to discuss with case management for arranging outpatient bipap Acute on chronic diastolic CHF exacerbation - euvolemic. continue home diure tics. V tachy 23 beats - no syncope/presyncope. Baseline HR at 59-60. Electrolytes normal. Follow. Pleural effusion - underwent thoracentesis 09/17. Moderate /MR/TR - no new concern COPD with asthma (Gold class E) - continue home inhaler A fib - in sinus rhythm. resume apixaban. Solitary kidney with CKD III - follow renal function PT/OT eval done. Case mx working on discharge plan. Subjective Mrs. Zhu feels stable. Sitting upright in chair with nasal cannula. Overnight she managed to have somewhat restful sleep with the BIPAP mask. Some pain to her nose but she was able to tolerate it fairly well. She was noted to have a 23 beat run of VTACH during which she transiently felt fluttering, mild LH without syncope. It happened while she was was at rest. Otherwise able to urinate without dysuria since Booker catheter removal. Review of Systems Review of Systems: All systems reviewed & are unremarkable except as noted in HPI & below Physical Exam Physical Exam: Appearance: upright in chair, NAD Respiratory: Crackles/wheeze appreciated in both lung bases, L middle lobe. Otherwise lungs CTA. No conversational dyspnea, no cyanosis. Cardiovascular: systolic murmur 3/6, in aortic/pulmonic areas, normal S1/S2, 1+ pitting edema in LE BL, no abdominal distention +mild L hand Gastrointestinal (Abdomen): active bowel sounds, +pain to palpation in RLQ, otherwise no rebound/guarding Neurologic: answering questions appropriately, AOX3 Results & Data Results & Data Vital Signs (Past 12 Hours) Vital Signs Temp Pulse Pulse Resp BP Pulse Ox Pulse Ox 09/20/22 07:34 60 09/20/22 03:35 60 16 99 09/20/22 03:53 56 L 16 117/61 99 09/19/22 21:59 66 09/19/22 21:59 92 09/19/22 23:28 36.3 C L 66 20 144/75 H 94 09/19/22 20:18 60 21 100 09/19/22 20:10 O2 Del Method O2 Del Method O2 Flow Rate O2 Flow Rate FiO2 09/20/22 07:34 09/20/22 03:35 50 09/20/22 03:53 BiPAP 50 09/19/22 21:59 09/19/22 21:59 Nasal Cannula 2 09/19/22 23:28 Nasal Cannula 2 09/19/22 20:18 50 09/19/22 20:10 Nasal Cannula 2 Laboratory Results 09/20/22 09/20/22 09/20/22 07:38 06:39 06:39 WBC 5.42 RBC 3.11 L Hgb 9.1 L Hct 28.8 L MCV 92.6 MCH 29.3 MCHC 31.6 L RDW Std Deviation 46.5 H RDW Coeff of Stephane 13.6 Plt Count 175 MPV 10.0 Sodium 134 L Potassium 4.2 Chloride 96 L Carbon Dioxide 33 H Anion Gap 5 BUN 50 H Creatinine 1.48 H Est Cr Clr Drug Dosing 32.3 Est GFR ( Amer) 37.3 Est GFR (Non-Af Amer) 32.2 BUN/Creatinine Ratio 33.8 H Glucose 124 H POC Glucose 130 H Calcium 9.3 Phosphorus 4.1 Magnesium 2.3 Albumin 3.2 L 09/19/22 09/19/22 09/19/22 20:18 16:20 11:01 WBC RBC Hgb Hct MCV MCH MCHC RDW Std Deviation RDW Coeff of Stephane Plt Count MPV Sodium Potassium Chloride Carbon Dioxide Anion Gap BUN Creatinine Est Cr Clr Drug Dosing Est GFR ( Amer) Est GFR (Non-Af Amer) BUN/Creatinine Ratio Glucose POC Glucose 153 H 165 H 135 H Calcium Phosphorus Magnesium Albumin (5) Anemia Anemia type: unspecified type Qualified Code(s): D64.9 - Anemia, unspecified (6) CHF (congestive heart failure) Heart failure chronicity: acute Heart failure type: unspecified Qualified Code(s): I50.9 - Heart failure, unspecified
[2022-09-20 07:42] LABS: Albumin Level 3.2 gm/dl (3.4-5.0); BUN Creatinine Ratio 33.8 (10-20); Calcium 9.3 mg/dl (8.6-10.3); Creatinine Clr Calc Pharmacy 32.3 ml/min; Est GFR (African American) 37.3 ml/min; Est GFR (Non-African American) 32.2 ml/min; Phosphorus 4.1 mg/dl (2.5-4.9); Potassium 4.2 mmol/L (3.5-5.1)
[2022-09-20] MEDS: INSULIN ASPART PER UNIT CHARGE SC SCH ×4 (07:52→20:23)
[2022-09-20] MEDS: FLUTICASONE FUROATE 100MCG 14 PUFFS/INHALER INH SCH (08:19)
[2022-09-20] MEDS: ISOSORBIDE MONO EXTENDED REL 30 MG TABCR PO SCH (08:21)
[2022-09-20] MEDS: ATENOLOL 50 MG TABLET PO SCH (08:21)
[2022-09-20] MEDS: APIXABAN 5 MG TABLET PO SCH ×2 (08:21→20:58)
[2022-09-20] MEDS: UMECLIDINIUM/VILANTEROL 62.5/25MCG 7 PUFFS/INHALER INH SCH (08:22)
[2022-09-20] MEDS: guaiFENesin 600 MG TABCR PO SCH ×2 (08:22→20:58)
[2022-09-20] MEDS: amLODIPine BESYLATE 5 MG TAB PO SCH (08:22)
[2022-09-20] MEDS: FUROSEMIDE 40 MG/4 ML VIAL IV SCH (08:24)
[2022-09-20] MEDS ORDERED: acetaZOLAMIDE 250 MG in SYRINGE 0 ML IV STA (09:11)
--- NOTE | 2022-09-20 09:11 | Pulmonology Progress Note ---
Date of Service September 20, 2022 Assessment & Plan (1) SOB (shortness of breath): (2) CHF (congestive heart failure): Heart failure chronicity: acute Heart failure type: unspecified Qualified Code(s): I50.9 - Heart failure, unspecified (3) Acute on chronic respiratory failure with hypoxemia: (4) Pleural effusion: (5) Pulmonary emphysema: (6) Pulmonary hypertension: (7) Pulmonary nodule: Plan Chest x-ray 09/16/2022 personally reviewed: Bilateral costophrenic angles are blunted, increased cardiac silhouette, increased pulmonary vascular markings especially in the right side, single-lead pacemaker --Acute on chronic hypoxic respiratory failure with bilateral pleural effusion On 2 L oxygen at home Likely secondary to fluid overload from CKD plus diastolic CHF S/p right-sided thoracentesis 09/17/2022, 1450 serous fluid removed, lymphocytic transudative as per lights criteria Pleural: LDH 44, total protein <3, pH 7.47, glucose 116 Serum: LDH 196, total protein 6.4 BNP 3578 SARS [place]-2 NAAT negative Continue with diuretics BiPAP nightly and as needed shortness of breath --COPD with emphysema Gold class E Patient does have an allergic component hasabsolute eosinophil count 380 on 06/02/2019 On Trelegy inhaler once a day Albuterol and DuoNeb's nebulized as needed. PFTs 04/09/2021:Moderate COPD, insignificant bronchodilator response, moderate decrease in DLCO which does not correct for VA (Increased FVC by 320 mL, increased FEV1 by 120 mL compared to 03/2020) FVC is 2.08 L 77%, FEV1 1.17 L 61%, FEV1/FVC 57%, RV 127%, TLC 106%, RV/TLC 118%, DLCO 44%, DLCO/VA 61% --Chronic hypoxic respiratory failure On 2 L nasal cannula on exertion Advised patient to keep O2 saturation around 90-92%. She has a pulse ox at home. --Pulmonary hypertension Looking at the pulmonary artery on the CTA done in August 2017 Type II pulmonary hypertension likely from moderate aortic stenosis 2D Echo 09/11/2022: EF 50-55%, moderate aortic stenosis, moderate MR, moderate TR , RV mildly dilated, severe biatrial dilation. MIldly elevated RVSP: 45mmHg. --Pulmonary nodule Right middle lobe 4 mm, last time seen on CTA 08/2017 Stability for more than 3 years Does not need any further follow-up -- Ex-smoker Only [id number] smoking history Quit In the --Agata. juani On Xarelto Plan: In/out: -310, urine output 1050 Continue with Lasix, give a dose of acetazolamide given contraction alkalosis BiPAP nightly and as needed shortness of breath will be beneficial Continue with hypertonic saline nebulized as well as Mucinex for chest congestion and difficulty bringing up the phlegm Given the CKD, bilateral pleural effusion as well as moderate COPD, I do think patient will benefit from BiPAP nightly and as needed shortness of breath. Case discussed with RN and patient's son at bedside Please note the above document was generated using voice recognition software. It may contain grammatical, syntax or spelling errors.Any formal questions or concerns about the content, text or information contained within the body of this dictation should be directly addressed to the provider for clarification. Admission and Anticipated Discharge Date Admission Date: September 10, 2022 Subjective Patient seen and examined at bedside. No acute distress, no adverse events overnight Was saturating 98% on 4 L nasal cannula, I went down to 2 L She did use the BiPAP overnight and tolerated it well. She stated that it made her feel better. No nausea or vomiting, has been urinating well No headache, no dizziness Review of Systems Review of Systems: All systems reviewed & are unremarkable except as noted in Subjective Physical Exam Physical Exam: Constitutional: No acute distress HEENT: EOMI, PERRLA Respiratory system:Decreased air entry bilaterally, no wheeze, no rhonchi, positive bilateral lower lobe crackles CVS: S1-S2 positive,positive 3 out of 6 systolic murmur appreciated best at the aorta, positive left PPM Abdomen: Soft, nontender, nondistended, positive bowel sounds x4,obese Extremities: +2 pulses bilaterally radialis, no cyanosis,+3 pitting edema left lower extremity Neuro: Awake alert oriented x3 Psych: Normal mood and affect G/U: No Booker Skin: no rashes, warm and dry Lymphatic: no cervical or axillary lymphadenopathy Results & Data Results & Data Vital Signs (Past 12 Hours) Vital Signs Temp Pulse Pulse Resp BP BP Pulse Ox 09/20/22 08:02 36.5 C 60 18 148/59 H 92 09/20/22 07:40 79 18 93 09/20/22 07:34 60 09/20/22 03:35 60 16 99 09/20/22 03:53 56 L 16 117/61 99 09/19/22 21:59 66 09/19/22 21:59 09/19/22 23:28 36.3 C L 66 20 144/75 H 94 Pulse Ox O2 Del Method O2 Del Method O2 Flow Rate O2 Flow Rate FiO2 09/20/22 08:02 Nasal Cannula 4 09/20/22 07:40 Nasal Cannula 3.5 09/20/22 07:34 09/20/22 03:35 50 09/20/22 03:53 BiPAP 50 09/19/22 21:59 09/19/22 21:59 92 Nasal Cannula 2 09/19/22 23:28 Nasal Cannula 2 Laboratory Results 09/20/22 06:39 09/20/22 06:39 PG Care Time/CCT Total # of Minutes Spent Total Time Spent with Patient: Total time spent is greater than 50% in coordination of care (as documented) at patient's floor/unit and/or counseling patient: Coding Level of Care Code 65326 SUB INP/OBS CARE 2MIN Diagnoses SOB (shortness of breath) R06.02 CHF (congestive heart failure) I50.9 Heart failure chronicity: acute Heart failure type: unspecified Acute on chronic respiratory failure with hypoxemia J96.21 Pleural effusion J90 Pulmonary emphysema J43.9 Pulmonary hypertension I27.20 Pulmonary nodule R91.1
[2022-09-20 09:44] LABS: Magnesium 2.3 mg/dl (1.7-2.4)
[2022-09-20] MEDS: POLYETHYLENE (MIRALAX) 17 GM PACK PO SCH (09:58)
--- NOTE | 2022-09-20 10:27 | Nephrology Progress Note ---
Date of Service September 20, 2022 Assessment & Plan (1) YUMIKO (acute kidney injury): (2) Hyperkalemia: (3) Pleural effusion: (4) Anemia: (5) Pedal edema: (6) SOB (shortness of breath): Plan 82 year-old female with solitary right kidney after left nephrectomy for renal cell carcinoma, stage IIIA CKD baseline creatinine 1.2 to 1.3, obesity, CAD, permanent atrial fibrillation, tachycardia-bradycardia syndrome s/p pacemaker placement, HFPEF, history of DVT, history of bleeding hemorrhoids, DM 2, COPD chronic O2 dependent, pulmonary hypertension, asthma, hyperlipidemia, hypertension admitted on September 10 with increasing shortness of breath. Lab showed YUMIKO, creatinine staying around 1.8 with persistent hyperkalemia, has been off of the ARB, received Veltassa yesterday. Prior to that she was admitted in early August after suffering a fall and suffering multiple facial bone fractures. She was [facility] and returned home on September 05 but struggled with orthopnea and fluid retention since she returned home. She has been treated with IV furosemide since admission. Weight stable. Overall she is doing better clinically. Cr improving. --change Lasix to 40 mg orally twice daily. Continue to strictly monitor intake and output and aim for net negative. Keep on low-potassium diet, off of MANDEEP- inhibitor or an ARB. --lab in am Will follow Admission and Anticipated Discharge Date Admission Date: September 10, 2022 Zuly Chawla was seen and evaluated this morning. Overall she is feeling better. Renal function slightly improved, electrolyte acceptable. Net negative 200 ml overnight although left pl effusion remains same. Review of Systems Review of Systems: Detailed review of system was done and pertinent positives and negatives were mentioned above. Physical Exam Constitutional: WD/WN, vitals as above + ill appearing; no acute distress Eyes: + anicteric sclerae Neck: normal visual inspection Respiratory: Auscultation: + diminished lung sounds Cardiovascular: Rate/Rhythm: + irregularly irregular Heart Sounds: + murmur Extremities: + edema Skin: no rashes, warm and dry Neurologic: no focal motor deficits and not confused Psychiatric: Orientation: alert and oriented x 3 Results & Data Vital Signs (Past 12 Hours) Vital Signs Temp Pulse Pulse Resp BP BP Pulse Ox 09/20/22 08:02 36.5 C 60 18 148/59 H 92 09/20/22 07:40 79 18 93 09/20/22 07:34 60 09/20/22 03:35 60 16 99 09/20/22 03:53 56 L 16 117/61 99 09/19/22 23:28 36.3 C L 66 20 144/75 H 94 O2 Del Method O2 Flow Rate FiO2 09/20/22 08:02 Nasal Cannula 4 09/20/22 07:40 Nasal Cannula 3.5 09/20/22 07:34 09/20/22 03:35 50 09/20/22 03:53 BiPAP 50 09/19/22 23:28 Nasal Cannula 2 PG Care Time/CCT Total # of Minutes Spent Total Time Spent with Patient: Total time spent is greater than 50% in coordination of care (as documented) at patient's floor/unit and/or counseling patient: Coding Level of Care Code 48037 SUB INP/OBS CARE MIN Diagnoses YUMIKO (acute kidney injury) N17.9 Hyperkalemia E87.5 Pleural effusion J90 Anemia D64.9 Anemia type: unspecified type Pedal edema R60.0 SOB (shortness of breath) R06.02 (4) Anemia Anemia type: unspecified type Qualified Code(s): D64.9 - Anemia, unspecified
[2022-09-20] MEDS: FUROSEMIDE 40 MG TAB PO SCH (16:46)
[2022-09-20] MEDS: ACETAMINOPHEN 325 MG TAB PO PRN (17:49)
[2022-09-20 20:49] LABS: Base Excess ABG 8.4 mEq/L (-9-1.8); HCO3 ABG 36 mmol/L (19-24); Oxygen Saturation ABG 96.7 % (90-95); PCO2 ABG 64 mmHg (35-46); PO2 ABG 79 mmHg (80-95); pH ABG 7.36 (7.35-7.45)
[2022-09-20 20:50] LABS: Allen Test Pos (Pos)
[2022-09-20] MEDS: SIMVASTATIN 20 MG TAB PO SCH (20:57)
[2022-09-20] MEDS: MELATONIN 3 MG TAB PO PRN (21:06)
[2022-09-21] MEDS: ACETAMINOPHEN 325 MG TAB PO PRN ×2 (02:47→20:03)
[2022-09-21 06:11] LABS: Hematocrit (blood only) 28.4 % (37.0-47.0); Hemoglobin 9.1 g/dl (12.0-16.0); Mean Corpuscular Hemoglobin 29.4 pg (25.0-34.0); Mean Corpuscular Volume 91.9 fL (80.0-100.0); Mean Platelet Volume 10.3 fL (9.4-12.4); Platelet Count 184 K/uL (130-400); RDW Coefficient of Variation 13.6 % (11.5-14.5); RDW Standard Deviation 45.8 fL (36.4-46.3); Red Blood Count 3.09 M/uL (4.20-5.40); White Blood Count 5.38 K/ul (4.8-10.8)
[2022-09-21 06:31] LABS: Albumin Level 3.3 gm/dl (3.4-5.0); Calcium 9.4 mg/dl (8.6-10.3); Creatinine Clr Calc Pharmacy 33.7 ml/min; Est GFR (African American) 40.2 ml/min; Est GFR (Non-African American) 34.7 ml/min; Phosphorus 4.4 mg/dl (2.5-4.9); Potassium 3.9 mmol/L (3.5-5.1)
[2022-09-21] MEDS: SODIUM CHLOR 7% 4 ML NEB NEB SCH ×2 (06:54→19:05)
[2022-09-21] MEDS: ALBUT/IPRATROP 3MG/0.5MG NEB 3 ML VIAL NEB SCH ×4 (06:54→19:05)
--- NOTE | 2022-09-21 06:56 | Hospitalist Progress Note ---
Date of Service September 21, 2022 Assessment & Plan (1) Hyperkalemia: (2) Pleural effusion: (3) Acute on chronic respiratory failure with hypoxemia: (4) SOB (shortness of breath): (5) Anemia: (6) CHF (congestive heart failure): (7) YUMIKO (acute kidney injury): (8) Diabetes mellitus, type 2: (9) Ventricular tachycardia: Mauri Chawla is an 82 y/o F with PMHx of diastolic CHF, COPD with asthma, CKD 3, prior DVTs, AFIB on Xarelto, tachy-joe syndrome with pacemaker (2016) and DM2 who presented to the ED on 09/10 with worsening SOB. Prior to that on 08/23/22 she was admitted to [facility] for multiple facial fractures after a fall. Acute on chronic, diastolic CHF Chronic and unstable, BNP > 3,000 on admission and on repeat testing Echo shows no significant change from 08/06/22: normal systolic function, akinesis of distal inferior wall, EF 50-55%, moderate valvular aortic stenosis, moderate MR and TR Recurrent pleural effusions despite R-sided thoracentesis (~1450mL, transudative exudate) and diuresis Lasix 40mg IV BID, received Diamox today for contraction alkalosis I/O, daily wt Ventricular tachycardia 23 beat run of ventricular tachycardia Patient was largely asymptomatic during this episode. ECG: ventricularly paced rhythm (vent rate 78, atrial rate 81) Due to labile HR and BP will hold off on adjusting atenolol for now. Aortic stenosis Echo from 08/06/22: moderate valvular aortic stenosis Consider TAVR evaluation as an outpatient Chronic kidney disease, stage 3 Hyperkalemia potassium normalized at 4.2, Patiromer discontinued, repeat EKG is stable, shows v-paced rhythm S/p nephrectomy in 1997 for renal malignancy. Cr 1.39 Patient follows with nephrology. Cammy is not interested in dialysis. Monitor Is and Os COPD with Asthma Chronic resp failure RICH At home O2 requirement is 2L Pulmonary consults appreciated: BiPAP nightly and PRN, nebulized hypertonic saline, Mucinex. Trilegy Duoneb treatments as needed Ellipta May need 2 step prior to discharge if may need increased O2 with exertion Hypertension Isosorbide 90mg, Atenolol 50mg, amlodipine 10mg Holding Losartan 25mg given hyperkalemia Atrial fibrillation Eliquis 5mg PO BID A Fib with hx of multiple DVTs on at home Xarelto [id number] score of 7 Diabetes mellitus, type 2 Carb consistent diet Sitagliptin on hold ISS while inpatient Anemia -suspect CKD component, Hgb stable during admission Code status: Full DVT ppx: Eliquis 5mg PO BID FENGI: Carb consistent, low sodium, heart healthy, Renal diet Dispo: PCU, 2 STEP prior to d/c, PT/OT evaluation prior to d/c 6-click OT score 20 6-click PT score 17 Admission and Anticipated Discharge Date Admission Date: September 10, 2022 Supervising Physician Co-Signing Physician Notes Resident Physician Supervision Note: I independently interviewed and examined the patient and verified the gamez history and physical, reviewed labs and image studies and agree with resident findings and care plan. Zuly Chawla is an 82 y/o F with PMHx of diastolic CHF, COPD with asthma, CKD 3, prior DVTs, AFIB on Xarelto, tachy-joe syndrome with pacemaker (2016) and DM2 who presented to the ED on 09/10 with worsening SOB. Prior to that on 08/23/22 she was admitted to [facility] for multiple facial fractures after a fall. 09/21: Patient seen and examined at bedside. Had nocturnal pulse oximetry last night- notes she did not sleep well and wants to use the BiPAP as she slept better with it. Denies chest pain, or changes in bowel/bladder habits. Review of Systems Review of Systems: As per above Physical Exam Constitutional: WD/WN, vitals as above Eyes: Anicteric sclerae ENMT: External ears and nose normal. Moist mucous membranes Respiratory: Good respiratory efforts, no increased work of breathing. Lungs slightly diminished at bases. Cardiovascular: Rate/Rhythm: regular rate and regular rhythm Pitting edema of lower extremities bilaterally Skin: no rashes, warm and dry Psychiatric: A+Ox3, euthymic affect Results & Data Results & Data Vital Signs (Past 12 Hours) Vital Signs Temp Pulse Pulse Pulse Resp BP BP 09/21/22 00:00 09/21/22 01:20 68 09/21/22 04:41 67 09/21/22 03:38 36.8 C 63 19 158/68 H 09/20/22 22:00 61 09/20/22 22:32 36.5 C 64 23 139/68 09/20/22 22:08 66 09/20/22 21:00 09/20/22 20:02 36.5 C 62 20 135/61 Pulse Ox Pulse Ox Pulse Ox O2 Del Method O2 Del Method O2 Del Method O2 Flow Rate 09/21/22 00:00 96 Nasal Cannula 09/21/22 01:20 96 Nasal Cannula 09/21/22 04:41 94 Nasal Cannula 09/21/22 03:38 93 Nasal Cannula 2 09/20/22 22:00 09/20/22 22:32 91 Nasal Cannula 2 09/20/22 22:08 94 Nasal Cannula 09/20/22 21:00 Nasal Cannula 2 09/20/22 20:02 94 Nasal Cannula 2 O2 Flow Rate O2 Flow Rate 09/21/22 00:00 2 09/21/22 01:20 2 09/21/22 04:41 2 09/21/22 03:38 09/20/22 22:00 09/20/22 22:32 09/20/22 22:08 2 09/20/22 21:00 09/20/22 20:02 Resident Activity Tracking Resident Involvement: Resident Care Provided Care Provided: Adult Hospital Medicine (5) Anemia Anemia type: unspecified type Qualified Code(s): D64.9 - Anemia, unspecified (6) CHF (congestive heart failure) Heart failure chronicity: acute Heart failure type: unspecified Qualified Code(s): I50.9 - Heart failure, unspecified
[2022-09-21] MEDS: INSULIN ASPART PER UNIT CHARGE SC SCH ×4 (08:32→21:48)
[2022-09-21] MEDS: ATENOLOL 50 MG TABLET PO SCH (08:33)
[2022-09-21] MEDS: APIXABAN 5 MG TABLET PO SCH ×2 (08:33→20:04)
[2022-09-21] MEDS: amLODIPine BESYLATE 5 MG TAB PO SCH (08:33)
[2022-09-21] MEDS: FLUTICASONE FUROATE 100MCG 14 PUFFS/INHALER INH SCH (08:34)
[2022-09-21] MEDS: ISOSORBIDE MONO EXTENDED REL 30 MG TABCR PO SCH (08:35)
[2022-09-21] MEDS: guaiFENesin 600 MG TABCR PO SCH ×2 (08:35→20:04)
[2022-09-21] MEDS: POLYETHYLENE (MIRALAX) 17 GM PACK PO SCH (08:36)
[2022-09-21] MEDS: UMECLIDINIUM/VILANTEROL 62.5/25MCG 7 PUFFS/INHALER INH SCH (08:36)
[2022-09-21] MEDS: FUROSEMIDE 40 MG TAB PO SCH ×2 (08:53→16:24)
--- NOTE | 2022-09-21 11:11 | Nephrology Progress Note ---
Date of Service September 21, 2022 Assessment & Plan (1) YUMIKO (acute kidney injury): (2) Hyperkalemia: (3) Pleural effusion: (4) Anemia: (5) Pedal edema: (6) SOB (shortness of breath): Plan 82 year-old female with solitary right kidney after left nephrectomy for renal cell carcinoma, stage IIIA CKD baseline creatinine 1.2 to 1.3, obesity, CAD, permanent atrial fibrillation, tachycardia-bradycardia syndrome s/p pacemaker placement, HFPEF, history of DVT, history of bleeding hemorrhoids, DM 2, COPD chronic O2 dependent, pulmonary hypertension, asthma, hyperlipidemia, hypertension admitted on September 10 with increasing shortness of breath. Lab showed YUMIKO, creatinine staying around 1.8 with persistent hyperkalemia, has been off of the ARB, received Veltassa yesterday. Prior to that she was admitted in early August after suffering a fall and suffering multiple facial bone fractures. She was discharged to [facility] for rehab and returned home on September 05 but struggled with orthopnea and fluid retention since she returned home. She has been treated with IV furosemide since admission. Weight stable. Overall she is doing better clinically. AK resolved, creatinine close to baseline, electrolyte improved. Blood pressure fair. -- Continue Lasix 40 mg orally twice daily. Continue to strictly monitor intake and output and aim for net negative. Keep on low-potassium diet, off of MANDEEP- inhibitor or an ARB. --lab in am Will follow Admission and Anticipated Discharge Date Admission Date: September 10, 2022 Zuly Chawla was seen and evaluated this morning. Overall she is feeling better although she still gets easily short of breath with minimum activity even trying to use the toilet makes her getting short of breath. Renal function slightly improved, electrolyte acceptable. Net negative >900 ml overnight. renal function continues to improve, creatinine down to 1.4, close to her baseline, electrolyte improved. Review of Systems Review of Systems: Detailed review of system was done and pertinent positives and negatives were mentioned above. Physical Exam Constitutional: WD/WN, vitals as above + ill appearing; no acute distress Eyes: + anicteric sclerae Neck: normal visual inspection Respiratory: Auscultation: + diminished lung sounds ( Decreased breath sound at left base, clear right side.) Cardiovascular: Rate/Rhythm: + irregularly irregular Heart Sounds: + murmur Extremities: + edema Skin: no rashes, warm and dry Neurologic: no focal motor deficits and not confused Psychiatric: Orientation: alert and oriented x 3 Results & Data Vital Signs (Past 12 Hours) Vital Signs Temp Pulse Pulse Resp BP Pulse Ox Pulse Ox 09/21/22 08:00 09/21/22 08:00 09/21/22 08:02 36.8 C 63 19 142/72 H 94 09/21/22 06:54 67 20 91 09/21/22 00:00 96 09/21/22 01:20 68 09/21/22 04:41 67 09/21/22 03:38 36.8 C 63 19 158/68 H 93 Pulse Ox O2 Del Method O2 Del Method O2 Del Method O2 Flow Rate O2 Flow Rate O2 Flow Rate 09/21/22 08:00 Nasal Cannula 2 09/21/22 08:00 Nasal Cannula 2 09/21/22 08:02 Nasal Cannula 09/21/22 06:54 Nasal Cannula 2 09/21/22 00:00 Nasal Cannula 2 09/21/22 01:20 96 Nasal Cannula 2 09/21/22 04:41 94 Nasal Cannula 2 09/21/22 03:38 Nasal Cannula 2 PG Care Time/CCT Total # of Minutes Spent Total Time Spent with Patient: Total time spent is greater than 50% in coordination of care (as documented) at patient's floor/unit and/or counseling patient: Coding Level of Care Code 53036 SUB INP/OBS CARE 235MIN Diagnoses YUMIKO (acute kidney injury) N17.9 Hyperkalemia E87.5 Pleural effusion J90 Anemia D64.9 Anemia type: unspecified type Pedal edema R60.0 SOB (shortness of breath) R06.02 (4) Anemia Anemia type: unspecified type Qualified Code(s): D64.9 - Anemia, unspecified
--- NOTE | 2022-09-21 11:17 | Pulmonology Progress Note ---
Date of Service September 21, 2022 Assessment & Plan (1) SOB (shortness of breath): (2) CHF (congestive heart failure): Heart failure chronicity: acute Heart failure type: unspecified Qualified Code(s): I50.9 - Heart failure, unspecified (3) Acute on chronic respiratory failure with hypoxemia: (4) Pleural effusion: (5) Pulmonary emphysema: (6) Pulmonary hypertension: (7) Pulmonary nodule: Plan Chest x-ray 09/16/2022 personally reviewed: Bilateral costophrenic angles are blunted, increased cardiac silhouette, increased pulmonary vascular markings especially in the right side, single-lead pacemaker --Acute on chronic hypoxic respiratory failure with bilateral pleural effusion On 2 L oxygen at home Likely secondary to fluid overload from CKD plus diastolic CHF S/p right-sided thoracentesis 09/17/2022, 1450 serous fluid removed, lymphocytic transudative as per lights criteria Pleural: LDH 44, total protein <3, pH 7.47, glucose 116 Serum: LDH 196, total protein 6.4 BNP 3578 SARS [place]-2 NAAT negative Continue with diuretics BiPAP nightly and as needed shortness of breath --COPD with emphysema Gold class E Patient does have an allergic component hasabsolute eosinophil count 380 on 06/02/2019 On Trelegy inhaler once a day Albuterol and DuoNeb's nebulized as needed. PFTs 04/09/2021:Moderate COPD, insignificant bronchodilator response, moderate decrease in DLCO which does not correct for VA (Increased FVC by 320 mL, increased FEV1 by 120 mL compared to 03/2020) FVC is 2.08 L 77%, FEV1 1.17 L 61%, FEV1/FVC 57%, RV 127%, TLC 106%, RV/TLC 118%, DLCO 44%, DLCO/VA 61% --Chronic hypoxic respiratory failure On 2 L nasal cannula on exertion Advised patient to keep O2 saturation around 90-92%. She has a pulse ox at home. --Pulmonary hypertension Looking at the pulmonary artery on the CTA done in August 2017 Type II pulmonary hypertension likely from moderate aortic stenosis 2D Echo 09/11/2022: EF 50-55%, moderate aortic stenosis, moderate MR, moderate TR , RV mildly dilated, severe biatrial dilation. MIldly elevated RVSP: 45mmHg. --Pulmonary nodule Right middle lobe 4 mm, last time seen on CTA 08/2017 Stability for more than 3 years Does not need any further follow-up -- Ex-smoker Only [id number] smoking history Quit In the --A. juani On Xarelto Plan: In/out: -935, urine output 1775 Give another dose of acetazolamide today. Continue with p.o. Lasix BiPAP nightly and as needed shortness of breath will be beneficial Continue with hypertonic saline nebulized as well as Mucinex for chest congestion and difficulty bringing up the phlegm Case discussed with patient's son at bedside and primary team Please note the above document was generated using voice recognition software. It may contain grammatical, syntax or spelling errors.Any formal questions or co ncerns about the content, text or information contained within the body of this dictation should be directly addressed to the provider for clarification. Admission and Anticipated Discharge Date Admission Date: September 10, 2022 Subjective Patient seen and examined at bedside. No acute distress, no adverse events overnight. She was saturating 93-94% on 2 L nasal cannula. She did not get a sound sleep as they were checking her oximetry overnight and got ABG in the morning Denies any chest pain Shortness of breath is improved compared to when she came to the hospital Denies any nausea or vomiting Fair appetite Has been urinating well Review of Systems Review of Systems: All systems reviewed & are unremarkable except as noted in Subjective Physical Exam Physical Exam: Constitutional: No acute distress HEENT: EOMI, PERRLA Respiratory system:Decreased air entry bilaterally, no wheeze, no rhonchi, positive bilateral lower lobe crackles CVS: S1-S2 positive,positive 3 out of 6 systolic murmur appreciated best at the aorta, positive left PPM Abdomen: Soft, nontender, nondistended, positive bowel sounds x4,obese Extremities: +2 pulses bilaterally radialis, no cyanosis,+2 pitting edema left lower extremity Neuro: Awake alert oriented x3 Psych: Normal mood and affect G/U: No Booker Skin: no rashes, warm and dry Lymphatic: no cervical or axillary lymphadenopathy Results & Data Results & Data Vital Signs (Past 12 Hours) Vital Signs Temp Pulse Pulse Resp BP Pulse Ox Pulse Ox 09/21/22 08:00 09/21/22 08:00 09/21/22 08:02 36.8 C 63 19 142/72 H 94 09/21/22 06:54 67 20 91 09/21/22 00:00 96 09/21/22 01:20 68 09/21/22 04:41 67 09/21/22 03:38 36.8 C 63 19 158/68 H 93 Pulse Ox O2 Del Method O2 Del Method O2 Del Method O2 Flow Rate O2 Flow Rate O2 Flow Rate 09/21/22 08:00 Nasal Cannula 2 09/21/22 08:00 Nasal Cannula 2 09/21/22 08:02 Nasal Cannula 09/21/22 06:54 Nasal Cannula 2 09/21/22 00:00 Nasal Cannula 2 09/21/22 01:20 96 Nasal Cannula 2 09/21/22 04:41 94 Nasal Cannula 2 09/21/22 03:38 Nasal Cannula 2 Laboratory Results 09/21/22 05:51 09/21/22 05:51 PG Care Time/CCT Total # of Minutes Spent Total Time Spent with Patient: Total time spent is greater than 50% in coordination of care (as documented) at patient's floor/unit and/or counseling patient: Coding Level of Care Code 41339 SUB INP/OBS CARE 2MIN Diagnoses SOB (shortness of breath) R06.02 CHF (congestive heart failure) I50.9 Heart failure chronicity: acute Heart failure type: unspecified Acute on chronic respiratory failure with hypoxemia J96.21 Pleural effusion J90 Pulmonary emphysema J43.9 Pulmonary hypertension I27.20 Pulmonary nodule R91.1
[2022-09-21] MEDS ORDERED: acetaZOLAMIDE 250 MG in SYRINGE 0 ML IV SCH (11:30)
[2022-09-21] MEDS: MELATONIN 3 MG TAB PO PRN (20:03)
[2022-09-21] MEDS: SIMVASTATIN 20 MG TAB PO SCH (20:04)
[2022-09-22 06:28] LABS: Basophils # (auto) 0.04 K/uL (0-0.2); Basophils % (auto) 0.8 %; Eosinophils % (auto) 3.9 %; Hematocrit (blood only) 29.1 % (37.0-47.0); Immature Granulocytes # (auto) 0.03 K/uL (0.01-0.20); Immature Granulocytes % (auto) 0.6 %; Lymphocytes # (auto) 0.77 K/uL (1.2-3.4); Lymphocytes % (auto) 14.9 %; Mean Corpuscular Hgb Conc 30.9 g/dL (32.0-36.0); Mean Corpuscular Volume 93.9 fL (80.0-100.0); Mean Platelet Volume 10.2 fL (9.4-12.4); Monocytes # (auto) 0.59 K/uL (0.11-0.59); Monocytes % (auto) 11.4 %; Neutrophils # (auto) 3.54 K/uL (1.40-6.50); Neutrophils % (auto) 68.4 %; Platelet Count 194 K/uL (130-400); RDW Coefficient of Variation 13.8 % (11.5-14.5); RDW Standard Deviation 46.7 fL (36.4-46.3); White Blood Count 5.17 K/ul (4.8-10.8)
[2022-09-22 06:42] LABS: Albumin Level 3.3 gm/dl (3.4-5.0); BUN Creatinine Ratio 35.5 (10-20); Calcium 9.1 mg/dl (8.6-10.3); Creatinine Clr Calc Pharmacy 33.4 ml/min; Est GFR (African American) 39.5 ml/min; Est GFR (Non-African American) 34.1 ml/min; Phosphorus 4.8 mg/dl (2.5-4.9); Potassium 3.5 mmol/L (3.5-5.1)
--- NOTE | 2022-09-22 07:03 | Hospitalist Progress Note ---
Date of Service September 22, 2022 Assessment & Plan (1) Hyperkalemia: (2) Acute on chronic respiratory failure with hypoxemia: (3) SOB (shortness of breath): (4) Anemia: (5) CHF (congestive heart failure): (6) YUMIKO (acute kidney injury): (7) Diabetes mellitus, type 2: (8) Ventricular tachycardia: Mauri Chawla is an 82 y/o F with PMHx of diastolic CHF, COPD with asthma, CKD 3, prior DVTs, AFIB on Xarelto, tachy-joe syndrome with pacemaker (2016) and DM2 who presented to the ED on 09/10 with worsening SOB. Prior to that on 08/23/22 she was admitted to [facility] for multiple facial fractures after a fall. Acute on chronic, diastolic CHF Chronic and unstable, BNP > 3,000 on admission and on repeat testing Echo shows no significant change from 08/06/22: normal systolic function, akinesis of distal inferior wall, EF 50-55%, moderate valvular aortic stenosis, moderate MR and TR Recurrent pleural effusions despite R-sided thoracentesis (~1450mL, transudative exudate) and diuresis Lasix 40mg IV BID, received Diamox today for contraction alkalosis I/O, daily wt Ventricular tachycardia 23 beat run of ventricular tachycardia Patient was largely asymptomatic during this episode. ECG: ventricularly paced rhythm (vent rate 78, atrial rate 81) Due to labile HR and BP will hold off on adjusting atenolol for now. Aortic stenosis Echo from 08/06/22: moderate valvular aortic stenosis Consider TAVR evaluation as an outpatient Chronic kidney disease, stage 3 Hyperkalemia potassium normalized at 4.2, Patiromer discontinued, repeat EKG is stable, shows v-paced rhythm S/p nephrectomy in 1997 for renal malignancy. Cr 1.39 Patient follows with nephrology. Cammy is not interested in dialysis. Monitor Is and Os COPD with Asthma Chronic resp failure RICH At home O2 requirement is 2L Pulmonary consults appreciated: BiPAP nightly and PRN, nebulized hypertonic saline, Mucinex. Trilegy Duoneb treatments as needed Ellipta May need 2 step prior to discharge if may need increased O2 with exertion Hypertension Isosorbide 90mg, Atenolol 50mg, amlodipine 10mg Holding Losartan 25mg given hyperkalemia Atrial fibrillation Eliquis 5mg PO BID A Fib with hx of multiple DVTs on at home Xarelto [id number] score of 7 Diabetes mellitus, type 2 Carb consistent diet Sitagliptin on hold ISS while inpatient Anemia -suspect CKD component, Hgb stable during admission Code status: Full DVT ppx: Eliquis 5mg PO BID FENGI: Carb consistent, low sodium, heart healthy, Renal diet Dispo: PCU, 2 STEP prior to d/c, PT/OT evaluation prior to d/c 6-click OT score 20 6-click PT score 17 Admission and Anticipated Discharge Date Admission Date: September 10, 2022 Zuly Chawla is an 82 y/o F with PMHx of diastolic CHF, COPD with asthma, CKD 3, prior DVTs, AFIB on Xarelto, tachy-joe syndrome with pacemaker (2016) and DM2 who presented to the ED on 09/10 with worsening SOB. Prior to that on 08/23/22 she was admitted to [facility] for multiple facial fractures after a fall. 09/22: No acute events overnight, patient tolerated BiPAP. Review of Systems Review of Systems: As per above Physical Exam Constitutional: WD/WN, vitals as above Cardiovascular: Rate/Rhythm: regular rate and regular rhythm Skin: no rashes, warm and dry Psychiatric: A+Ox3, euthymic affect Results & Data Results & Data Vital Signs (Past 12 Hours) Vital Signs Temp Pulse Pulse Resp BP Pulse Ox O2 Del Method 09/22/22 04:11 60 20 97 09/22/22 03:12 36.5 C 64 20 148/71 H 94 BiPAP 09/22/22 00:07 61 28 H 98 09/21/22 21:59 59 L 09/21/22 23:14 36.6 C 64 17 131/64 92 Nasal Cannula 09/21/22 20:10 Nasal Cannula, BiPAP 09/21/22 19:35 36.4 C L 62 18 154/77 H 92 Nasal Cannula 09/21/22 19:07 60 19 95 Nasal Cannula O2 Flow Rate FiO2 09/22/22 04:11 40 09/22/22 03:12 40 09/22/22 00:07 30 09/21/22 21:59 09/21/22 23:14 2 09/21/22 20:10 2 40 09/21/22 19:35 2 06/03/23 19:07 2 Resident Activity Tracking Resident Involvement: Resident Care Provided Care Provided: Adult Hospital Medicine (4) Anemia Anemia type: unspecified type Qualified Code(s): D64.9 - Anemia, unspecified (5) CHF (congestive heart failure) Heart failure chronicity: acute Heart failure type: unspecified Qualified Code(s): I50.9 - Heart failure, unspecified
[2022-09-22] MEDS: ALBUT/IPRATROP 3MG/0.5MG NEB 3 ML VIAL NEB SCH ×3 (07:08→15:34)
[2022-09-22] MEDS: SODIUM CHLOR 7% 4 ML NEB NEB SCH (07:08)
[2022-09-22] MEDS: INSULIN ASPART PER UNIT CHARGE SC SCH ×2 (07:58→11:24)
[2022-09-22] MEDS: guaiFENesin 600 MG TABCR PO SCH (07:59)
[2022-09-22] MEDS: ISOSORBIDE MONO EXTENDED REL 30 MG TABCR PO SCH (07:59)
[2022-09-22] MEDS: APIXABAN 5 MG TABLET PO SCH (07:59)
[2022-09-22] MEDS: POLYETHYLENE (MIRALAX) 17 GM PACK PO SCH (07:59)
[2022-09-22] MEDS: ATENOLOL 50 MG TABLET PO SCH (08:00)
[2022-09-22] MEDS: FUROSEMIDE 40 MG TAB PO SCH (08:00)
[2022-09-22] MEDS: FLUTICASONE FUROATE 100MCG 14 PUFFS/INHALER INH SCH (08:00)
[2022-09-22] MEDS: UMECLIDINIUM/VILANTEROL 62.5/25MCG 7 PUFFS/INHALER INH SCH (08:00)
[2022-09-22] MEDS: amLODIPine BESYLATE 5 MG TAB PO SCH (08:00)
--- NOTE | 2022-09-22 08:44 | Pulmonology Progress Note ---
Date of Service September 22, 2022 Assessment & Plan (1) SOB (shortness of breath): (2) CHF (congestive heart failure): Heart failure chronicity: acute Heart failure type: unspecified Qualified Code(s): I50.9 - Heart failure, unspecified (3) Acute on chronic respiratory failure with hypoxemia: (4) Pleural effusion: (5) Pulmonary emphysema: (6) Pulmonary hypertension: (7) Pulmonary nodule: Plan Chest x-ray 09/16/2022 personally reviewed: Bilateral costophrenic angles are blunted, increased cardiac silhouette, increased pulmonary vascular markings especially in the right side, single-lead pacemaker --Acute on chronic hypoxic respiratory failure with bilateral pleural effusion On 2 L oxygen at home Likely secondary to fluid overload from CKD plus diastolic CHF S/p right-sided thoracentesis 09/17/2022, 1450 serous fluid removed, lymphocytic transudative as per lights criteria Pleural: LDH 44, total protein <3, pH 7.47, glucose 116 Serum: LDH 196, total protein 6.4 BNP 3578 SARS [place]-2 NAAT negative Continue with diuretics BiPAP nightly and as needed shortness of breath --COPD with emphysema Gold class E Patient does have an allergic component hasabsolute eosinophil count 380 on 06/02/2019 On Trelegy inhaler once a day Albuterol and DuoNeb's nebulized as needed. PFTs 04/09/2021:Moderate COPD, insignificant bronchodilator response, moderate decrease in DLCO which does not correct for VA (Increased FVC by 320 mL, increased FEV1 by 120 mL compared to 03/2020) FVC is 2.08 L 77%, FEV1 1.17 L 61%, FEV1/FVC 57%, RV 127%, TLC 106%, RV/TLC 118%, DLCO 44%, DLCO/VA 61% --Chronic hypoxic respiratory failure On 2 L nasal cannula on exertion Advised patient to keep O2 saturation around 90-92%. She has a pulse ox at home. --Pulmonary hypertension Looking at the pulmonary artery on the CTA done in August 2017 Type II pulmonary hypertension likely from moderate aortic stenosis 2D Echo 09/11/2022: EF 50-55%, moderate aortic stenosis, moderate MR, moderate TR , RV mildly dilated, severe biatrial dilation. MIldly elevated RVSP: 45mmHg. --Pulmonary nodule Right middle lobe 4 mm, last time seen on CTA 08/2017 Stability for more than 3 years Does not need any further follow-up -- Ex-smoker Only 17-osar-yixt smoking history Quit In the --Agata. juani On Xarelto Plan: In/out: -236, urine output 1026 Continue with diuretics BiPAP nightly and as needed shortness of breath will be beneficial Continue with hypertonic saline nebulized as well as Mucinex even at home No further recommendation from pulmonary perspective, will sign off Please call directly with any questions Please note the above document was generated using voice recognition software. It may contain grammatical, syntax or spelling errors.Any formal questions or concerns about the content, text or information contained within the body of this dictation should be directly addressed to the provider for clarification. Admission and Anticipated Discharge Date Admission Date: September 10, 2022 Subjective Patient seen and examined at bedside. No acute distress, no adverse events overnight She slept well with BiPAP on last night Shortness of breath is improved. Still present on exertion No nausea vomiting No chest pain Fair appetite Has been urinating well Review of Systems Review of Systems: All systems reviewed & are unremarkable except as noted in Subjective Physical Exam Physical Exam: Constitutional: No acute distress HEENT: EOMI, PERRLA Respiratory system:Decreased air entry bilaterally, no wheeze, no rhonchi, positive bilateral lower lobe crackles CVS: S1-S2 positive,positive 3 out of 6 systolic murmur appreciated best at the aorta, positive left PPM Abdomen: Soft, nontender, nondistended, positive bowel sounds x4,obese Extremities: +2 pulses bilaterally radialis, no cyanosis,+2 pitting edema left lower extremity Neuro: Awake alert oriented x3 Psych: Normal mood and affect G/U: No Booker Skin: no rashes, warm and dry Lymphatic: no cervical or axillary lymphadenopathy Results & Data Results & Data Vital Signs (Past 12 Hours) Vital Signs Temp Pulse Pulse Resp BP Pulse Ox O2 Del Method 09/22/22 07:39 Nasal Cannula 09/22/22 07:26 36.8 C 60 19 150/68 H 96 Nasal Cannula 09/22/22 07:09 60 18 93 Nasal Cannula 09/22/22 04:11 60 20 97 09/22/22 03:12 36.5 C 64 20 148/71 H 94 BiPAP 09/22/22 00:07 61 28 H 98 06/03/23 21:59 59 L 09/21/22 23:14 36.6 C 64 17 131/64 92 Nasal Cannula O2 Flow Rate FiO2 09/22/22 07:39 09/22/22 07:26 2.0 09/22/22 07:09 2 09/22/22 04:11 40 09/22/22 03:12 40 09/22/22 00:07 30 09/21/22 21:59 09/21/22 23:14 2 Laboratory Results 09/22/22 05:56 09/22/22 05:56 PG Care Time/CCT Total # of Minutes Spent Total Time Spent with Patient: Total time spent is greater than 50% in coordination of care (as documented) at patient's floor/unit and/or counseling patient: Coding Level of Care Code 32744 SUB INP/OBS CARE 2/35MIN Diagnoses SOB (shortness of breath) R06.02 CHF (congestive heart failure) I50.9 Heart failure chronicity: acute Heart failure type: unspecified Acute on chronic respiratory failure with hypoxemia J96.21 Pleural effusion J90 Pulmonary emphysema J43.9 Pulmonary hypertension I27.20 Pulmonary nodule R91.1
--- NOTE | 2022-09-22 11:21 | Nephrology Progress Note ---
Date of Service September 22, 2022 Assessment & Plan (1) YUMIKO (acute kidney injury): (2) Hyperkalemia: (3) Pleural effusion: (4) Anemia: (5) Pedal edema: (6) SOB (shortness of breath): Plan 82 year-old female with solitary right kidney after left nephrectomy for renal cell carcinoma, stage IIIA CKD baseline creatinine 1.2 to 1.3, obesity, CAD, permanent atrial fibrillation, tachycardia-bradycardia syndrome s/p pacemaker placement, HFPEF, history of DVT, history of bleeding hemorrhoids, DM 2, COPD chronic O2 dependent, pulmonary hypertension, asthma, hyperlipidemia, hypertension admitted on September 10 with increasing shortness of breath. Lab showed YUMIKO, creatinine staying around 1.8 with persistent hyperkalemia, has been off of the ARB, received Veltassa yesterday. Prior to that she was admitted in early August after suffering a fall and suffering multiple facial bone fractures. She was discharged to [facility] [place] for rehab and returned home on September 05 but struggled with orthopnea and fluid retention since she returned home. She has been treated with IV furosemide since admission. Weight stable. Overall she is doing better clinically. YUMIKO resolved, creatinine close to baseline, electrolyte improved. Blood pressure fair. -- Continue Lasix 40 mg orally twice daily. Continue to strictly monitor intake and output and aim for net negative. Keep on low-potassium diet, off of MANDEEP- inhibitor or an ARB. -- Will sign off, outpt Nephrology f/u in 3/4 weeks, suggest lab in a week after discharge. Will follow Admission and Anticipated Discharge Date Admission Date: September 10, 2022 Zuly Chawla was seen and evaluated this morning. Overall she is feeling better. Renal function stable, electrolyte acceptable. Net negative >200 ml overnight. BP fair. Review of Systems Review of Systems: Detailed review of system was done and pertinent positives and negatives were mentioned above. Physical Exam Constitutional: WD/WN, vitals as above + ill appearing; no acute distress Eyes: + anicteric sclerae Neck: normal visual inspection Respiratory: Auscultation: + diminished lung sounds Cardiovascular: Rate/Rhythm: + irregularly irregular Heart Sounds: + murmur Extremities: + edema Skin: no rashes, warm and dry Neurologic: no focal motor deficits and not confused Psychiatric: Orientation: alert and oriented x 3 Results & Data Vital Signs (Past 12 Hours) Vital Signs Temp Pulse Pulse Resp BP Pulse Ox O2 Del Method 09/22/22 10:56 61 20 93 Nasal Cannula 09/22/22 07:39 Nasal Cannula 09/22/22 07:26 36.8 C 60 19 150/68 H 96 Nasal Cannula 09/22/22 07:09 60 18 93 Nasal Cannula 09/22/22 04:11 60 20 97 09/22/22 03:12 36.5 C 64 20 148/71 H 94 BiPAP 09/22/22 00:07 61 28 H 98 O2 Flow Rate FiO2 09/22/22 10:56 2 09/22/22 07:39 09/22/22 07:26 2.0 09/22/22 07:09 2 09/22/22 04:11 40 09/22/22 03:12 40 09/22/22 00:07 30 PG Care Time/CCT Total # of Minutes Spent Total Time Spent with Patient: Total time spent is greater than 50% in coordination of care (as documented) at patient's floor/unit and/or counseling patient: Coding Level of Care Code 67680 SUB INP/OBS CARE 2/35MIN Diagnoses YUMIKO (acute kidney injury) N17.9 Hyperkalemia E87.5 Pleural effusion J90 Anemia D64.9 Anemia type: unspecified type Pedal edema R60.0 SOB (shortness of breath) R06.02 (4) Anemia Anemia type: unspecified type Qualified Code(s): D64.9 - Anemia, unspecified
--- NOTE | 2022-09-22 15:25 | Ultrasound Report ---
US venous doppler UE LT HISTORY: 82 years-old Female left hand edema, rule out thrombus acute pain and swelling of the left upper extremity COMPARISON: None TECHNIQUE: Multiple real-time sonographic images of the left upper extremity deep venous structures w ere obtained assessing grayscale appearance, color and spectral flow FINDINGS: Normal flow, compressibility, phasicity and augmentation. Upper extremity IV catheter limits the stud y. IMPRESSION: No DVT identified. ACT 112: Negative or not required by law. The above report was generated using voice recognition software. It may contain grammatical, syntax o r spelling errors. Electronically signed by: Marko Padron M.D. 09/22/2022 3:24 PM
--- NOTE | 2022-09-22 16:09 | Discharge Summary ---
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 Patient was recently admitted to [facility] early this month after suffering a fall and suffering multiple facial bone fractures. Patient was discharged [facility] and she shtates she continued to be SOB and have lower extremity swelling. She was discharged to home 5 days ago and states due to the increasing SOB she has been sleeping upright in a recliner and also increased her home nc O2 from 2 to 3 L/per min. She has Trilegy, albuterol and ventolin inhalers and states she is compliant with using. She thinks the albuterol inhaler has helped minimally with her SOB. She denies any chest pain, cough, fever, congestion. She does admit to increasing lower extremity swelling. She usually eats a low sodium diet but states with her recent fall and facial fractures she has been eating more soft and easy to chew foods. She thinks she has been eating more soups and things in a can that she normally does not eat. Last echo was 08/06/22 and revealed that the aortic valve was trileaflet with no sifnificant AR with moderate . EF 50-55%. There are regional wall motion abnormalities - Left atrium dilated, right atrium moderately dilated and moderate . Patient was evaluated in ER, she is noted to have significant lower extremity swelling. Troponin was 15.4 ( 15.3 in July), BNP elevated at 3546, Hgb stable WBC normal, venous CO2 67. LFTs normal, Mg 2.1, BUN 29 and Cr 1.35. EKG revealed ventricular paced rhythm, and when compared with EKG 07/2022 PVCs are no longer present. Admission Exam Per Admitting Provider B Constitutional: WD/WN, vitals as above Respiratory: decreased breath sounds, mild end expiratory wheezing with fine crackles in the bases Cardiovascular: Rate/Rhythm: regular rate and regular rhythm Heart Sounds: normal S1, normal S2 and + murmur Extremities: + edema; no calf tenderness 3/6 BENNY Gastrointestinal (Abdomen): Inspection/Auscultation: abdomen normal to inspection and normal bowel sounds Percussion/Palpation: abdomen soft; no guarding, abdomen not rigid and no hepatosplenomegaly Principal Diagnosis Acute on Chronic Respiratory Failure with Hypoxia Discharge Exam Constitutional: WD/WN, vitals as above Eyes: Anicteric sclerae ENMT: External ears and nose normal. Moist mucous membranes Respiratory: Good respiratory efforts, no increased work of breathing. Lungs slightly diminished at bases. Cardiovascular: Rate/Rhythm: regular rate and regular rhythm Pitting edema of lower extremities bilaterally Skin: no rashes, warm and dry Psychiatric: A+Ox3, euthymic affect Discharge Data Allergies Allergy/AdvReac Type Severity Reaction Status Date / Time chlorthalidone Allergy Severe Swelling Verified 08/05/22 20:54 of Lip/Tongue/Throat Penicillins Allergy Severe Swelling Verified 08/05/22 20:54 of Lip/Tongue/Throat MANDEEP Inhibitors Allergy Unknown Unknown Verified 08/05/22 20:54 trazodone Allergy Unknown Unknown Verified 08/05/22 20:54 Consultations 09/10/22 17:09 ED Decision to Admit Stat 09/15/22 10:47 Consult Pulmonology Routine 09/16/22 10:08 Consult Nephrology Routine Ordered Studies 09/16/22 10:03 US point of care ultrasound Urgent 09/16/22 14:08 US renal/blad retro comp Routine 09/17/22 09:07 US point of care ultrasound Urgent 09/22/22 12:49 US venous doppler UE LT Urgent Chest X-Ray 09/10/22 15:50 XR chest 1V portable HISTORY: Dyspnea COMPARISON: Chest 08/22/2022. FINDINGS: No pneumothorax. Small bilateral pleural effusions and bibasilar densities persist. The heart remains enlarged. Interstitial thickening and perihilar hazy airspace opacities have progressed. This is consistent with moderate pulmonary edema. There is a left-sided single lead pacemaker. Slightly rotated study. IMPRESSION: Interval progression of the moderate pulmonary edema and bilateral pleural effusions/densities. ACT 112: Negative or not required by law. Electronically signed by: Chalino Cooper M.D. 09/10/2022 4:37 PM Chest X-Ray 09/13/22 08:48 XR chest 2V PA/lateral CLINICAL HISTORY: Hypoxia. COMPARISON STUDY: Chest radiograph September 10, 2022. FINDINGS: Left subclavian pacer remains in place. There is cardiomegaly. No pneumothorax. Moderate left and [id number] right pleural effusions are unchanged. Pulmonary edema has mildly improved. IMPRESSION: Cardiomegaly. Mild interval improvement in pulmonary edema with persistent bilateral pleural effusions. ACT 112: Negative or not required by law. Electronically signed by: Jorgito Oseguera M.D. 09/13/2022 10:22 AM Chest X-Ray 09/15/22 07:20 XR chest 2V PA/lateral CLINICAL HISTORY: pleural effusions worsening oxygenation status TECHNIQUE: 2 views of the chest were obtained. Comparison: Comparison is made to chest radiograph 09/13/2022 FINDINGS: Dual lead pacemaker is seen. Cardiomegaly is noted. There is prominence and cephalization of the vasculature with Tessa B lines seen. Moderate left and small right pleural effusions. IMPRESSION: 1. Cardiomegaly and moderate pulmonary edema, essentially stable from prior exam. 2. Bilateral pleural effusions are unchanged from prior exam. ACT 112: Negative or not required by law. Electronically signed by: Dustin Danielson M.D. 09/15/2022 10:22 AM Chest X-Ray 09/16/22 03:51 XR chest 1V portable HISTORY: 82 years-old Female increasing wob acute respiratory failure COMPARISON: Chest radiographs 09/15/2022, 09/13/2022, CTA chest 09/08/2017. TECHNIQUE: AP view of the chest FINDINGS: Cardiac silhouette is enlarged. Left subclavian pacer. Pulmonary vascular congestion with interstitial coarsening. Pulmonary emphysema. No pneumothorax. Layering pleural effusions with bibasilar consolidation again noted. Irregular 4.3 cm opacity of the right upper lung. Degenerative changes of the shoulders and spine. IMPRESSION: 1. Cardiomegaly with persistent pulmonary edema. 2. Layering pleural effusions with bibasilar consolidation. 3. Irregular 4.3 cm opacity in the right upper lung. Attention on follow-up recommended. ACT 112: Negative or not required by law. The above report was generated using voice recognition software. It may contain grammatical, syntax or spelling errors. Electronically signed by: Marko Padron M.D. 09/16/2022 7:34 AM Renal Ultrasound 09/16/22 14:08 RENAL ULTRASOUND HISTORY: Acute kidney injury yumiko, single kidney COMPARISON: CT 06/26/2021 FINDINGS: Right kidney: 12.2 x 5.4 x 5.3 No hydronephrosis. Mild diffuse cortical thinning again noted.. Left kidney: Surgically absent. Bladder: Decompressed urinary bladder with Booker catheter in place. IMPRESSION: 1. Cortical thinning of the right kidney redemonstrated. No renal calculi or hydronephrosis. 2. Left nephrectomy. 3. Decompressed urinary bladder with Booker catheter. ACT 112: Negative or not required by law. Electronically signed by: Marko Padron M.D. 09/16/2022 4:10 PM Chest X-Ray 09/17/22 04:42 XR chest 1V portable CLINICAL HISTORY: Dyspnea. COMPARISON STUDY: Chest radiograph September 16, 2022. Chest CT May 23, 2015. FINDINGS: There is no pneumothorax. Bilateral pleural effusions and associated bibasilar opacities persist. A 4.7 cm elliptical right upper lung opacity is unchanged as well. There is persistent pulmonary edema. Cardiomegaly is unchanged. There is no significant change in appearance of the chest. Old right- sided rib fractures. IMPRESSION: 1. No significant change in pulmonary edema with bilateral pleural effusions and associated bibasilar opacities which could reflect atelectasis or consolidation. 2. Persistent 4.7 cm elliptical right upper lung opacity. This could reflect fissural fluid however is indeterminate and should be assessed on follow-up exams to ensure resolution. ACT 112: Negative or not required by law. Electronically signed by: Jorgito Oseguera M.D. 09/17/2022 6:23 AM Chest X-Ray 09/17/22 11:52 XR chest 1V portable CLINICAL HISTORY: S/P Thoracentesis COMPARISON STUDY: Chest radiograph September 17, 2022 at 5:08 AM. FINDINGS: There is no pneumothorax following thoracentesis. The right pleural effusion has significantly decreased in size. A left pleural effusion is again noted with left basilar opacity. Right upper lung opacity is similar to prior exam. Pulmonary edema has slightly improved. Cardiomegaly is unchanged. Left subclavian pacer is in place. IMPRESSION: 1. No pneumothorax following right thoracentesis. Significant decrease in size of the right pleural effusion. 2. Mild improvement in pulmonary edema. Persistent left pleural effusion with left basilar opacity. 3. Redemonstration of a right upper lung opacity which should be assessed on follow-up exams to ensure resolution. ACT 112: Negative or not required by law. Electronically signed by: Jorgito Oseguera M.D. 09/17/2022 1:28 PM Chest X-Ray 09/18/22 07:00 XR chest 1V portable CLINICAL HISTORY: f/u TECHNIQUE: Single frontal radiograph of the chest was obtained. Comparison: Comparison is made to chest radiograph 09/17/2022 FINDINGS: Dual lead pacemaker is seen. Cardiomegaly is noted. There is prominence and cephalization of the vasculature with Tessa B lines seen. Central airspace opacities are noted in addition to the previously noted right upper lung airspace opacity. Small bilateral pleural effusions are seen. IMPRESSION: 1. Cardiomegaly and moderate pulmonary edema. Central airspace opacities may represent alveolar edema, less likely aspiration/pneumonia. This is increased from prior exam. 2. Right upper lung airspace opacity is unchanged from prior exam. 3. Small bilateral pleural effusion. ACT 112: Negative or not required by law. Electronically signed by: Dustin Danielson M.D. 09/18/2022 8:25 AM Chest X-Ray 09/19/22 07:43 XR chest 1V portable HISTORY: Shortness of breath. f/u COMPARISON: Chest 09/18/2022. FINDINGS: No pneumothorax. Cardiomegaly is again noted. Mild pulmonary edema has slightly improved. Small right and moderate left pleural effusions remain uncha nged. Focal lobular right upper lobe opacity remains unchanged. Bibasilar densities persist. IMPRESSION: 1. Slight improvement in the mild interstitial pulmonary edema. 2. Bilateral pleural effusions and bibasilar densities persist. 3. No change in the focal lobular right upper lobe opacity. Recommend follow-up to ensure resolution. ACT 112: Negative or not required by law. Electronically signed by: Chalino Cooper M.D. 09/19/2022 9:19 AM Extremity Venous Study 09/22/22 12:49 US venous doppler UE LT HISTORY: 82 years-old Female left hand edema, rule out thrombus acute pain and swelling of the left upper extremity COMPARISON: None TECHNIQUE: Multiple real-time sonographic images of the left upper extremity deep venous structures were obtained assessing grayscale appearance, color and spectral flow FINDINGS: Normal flow, compressibility, phasicity and augmentation. Upper extremity IV catheter limits the study. IMPRESSION: No DVT identified. ACT 112: Negative or not required by law. The above report was generated using voice recognition software. It may contain grammatical, syntax or spelling errors. Electronically signed by: Marko Padron M.D. 09/22/2022 3:24 PM Hospital Course (1) Hyperkalemia: (2) Acute on chronic respiratory failure with hypoxemia: (3) SOB (shortness of breath): (4) Anemia: (5) CHF (congestive heart failure): (6) YUMIKO (acute kidney injury): (7) Diabetes mellitus, type 2: (8) Ventricular tachycardia: Mauri Chawla is an 82 y/o F with PMHx of diastolic CHF, COPD with asthma, CKD 3, prior DVTs, AFIB on Xarelto, tachy-joe syndrome with pacemaker (2016) and DM2 who presented to the ED on 09/10 with worsening SOB. Prior to that on 08/23/22 she was admitted to [facility] for multiple facial fractures after a fall. Acute on chronic, diastolic CHF Chronic and unstable, BNP > 3,000 on admission and on repeat testing Echo shows no significant change from 08/06/22: normal systolic function, akinesis of distal inferior wall, EF 50-55%, moderate valvular aortic stenosis, moderate MR and TR Recurrent pleural effusions despite R-sided thoracentesis (~1450mL, transudative exudate) and diuresis Continue Lasix 40mg BID at discharge. Ventricular tachycardia Had 23 beat run of ventricular tachycardia Patient was largely asymptomatic during this episode. ECG: ventricularly paced rhythm (vent rate 78, atrial rate 81) Due to labile HR and BP, no further adjustments made to atenolol. No further episodes during admission. Aortic stenosis Echo from 08/06/22: moderate valvular aortic stenosis Discussed with cardiology, did not feel symptoms of SOB related to moderate aortic stenosis. Could consider TAVR evaluation as an outpatient. Chronic kidney disease, stage 3 Hyperkalemia Potassium normalized at 3.5 (peaked at 6.0), received Patiromer. S/p nephrectomy in 1997 for renal malignancy. Cr at baseline. Patient follows with nephrology. Cammy is not interested in dialysis. F/u with nephrology in 3-4 weeks, repeat Renal function panel in 1 week COPD with Asthma Chronic resp failure RICH At home O2 requirement is 2L Pulmonary consults appreciated: continue BiPAP nightly and PRN, nebulized hypertonic saline, Mucinex. Continue Trilegy, Ellipta, Duoneb treatments as needed --Bipap arranged for home at the time of discharge Hypertension Isosorbide 90mg, Atenolol 50mg, amlodipine 10mg Continue holding Losartan 25mg given hyperkalemia Atrial fibrillation Eliquis 5mg PO BID A Fib with hx of multiple DVTs on at home Xarelto [id number] score of 7 Diabetes mellitus, type 2 Carb consistent diet Continue home Sitagliptin Anemia -suspect CKD component, Hgb stable during admission History of Hemorrhoids Patient had small amount of blood with wiping this afternoon after straining for bowel movement. F/u outpatient with PCP if not improving. Code status: Full DVT ppx: Eliquis 5mg PO BID FENGI: Carb consistent, low sodium, heart healthy, Renal diet Total Time Total Time Spent Total Time Spent (In Minutes): . Discharge Plan Discharge Items Patient Disposition: Home - Home Health Services Reason For Visit: SHORTNESS OF BREATH Discharge Diagnosis: Chronic respiratory failure with hypoxia Condition on Discharge: Fair Activity: Per Instructions section Non-emergency contact: Primary Care Provider and [employer] Call non-emergency contact if: you have any medication questions Follow-up/Referrals: Lance Cox MD [Physician] - (Hospital discharge. To follow up with appointment in 3-4 weeks) Dagoberto Headley MD [Primary Care Provider] - (Hospital discharge follow up appointment within 1 week) Diet: Carb Consistent or DM2, Low Potassium (2gm) and Low Sodium (2gm) Fluids: 2000ml (8 cups) Ambulatory Orders: Renal Function Panel (Routine) Timeframe: 1 Week Location: Determined by Patient Ordered By: Libby Salcido Addtl Attending Provider Instructions: You were admitted to the hospital for shortness of breath. You were treated with supplemental oxygen, diuretic medications, a thoracentesis (to drain fluid from your lung) as well. You were also started on BiPAP to help you breathe better at night. A discharge summary will be sent to your primary care physician to ensure continuity of care. Follow-up appointments We have requested a follow-up appointment with your primary care physician within one week of discharge. Please call their office if you do not hear from them. You will also need a follow up appointment with nephrology within 3-4 weeks. We have requested an appointment with nephrology, please call their office if you have not heard from them in the next few days. * Nephrology is requesting blood work to be completed at 1 week post discharge. The order was placed to [facility]. Medications Your medication list has been reviewed and reconciled upon discharge to ensure accuracy and continuity of care. An updated list of all your medications is included with your hospital discharge paperwork. Please review this list closely, and make note of any changes. We sent a new medication called Lasix to your pharmacy. This is the same medication you were previously on, but now you will be taking an increased dose (40mg) twice a day. We sent a prescription for hypertonic saline via nebulizer this is a treatment you will complete daily along with taking a prescription for Mucinex (guaifenesin) which you can take up to twice a day. These treatments are to help with chest congestion. Note: We STOPPED your previous medication (losartan) because it increased your potassium level. We set up to have a BiPAP be delivered to your home today. You should use this every night as well as when you feel more short of breath. CALL 911 OR GO TO THE EMERGENCY DEPARTMENT if you experience any of the fol lowing Sudden, severe abdominal pain or nausea/vomiting Severe chest pain, or chest pain that radiates (moves) to your jaw or arm Sudden, severe shortness of breath or difficulty breathing Thank you for allowing us to participate in your care. Pending Studies at Discharge: No Stand-Alone Forms: My [facility], Smoking Cessation Medications and DC Order Prescriptions: New furosemide 40 mg tablet 40 mg PO BID 30 Days Qty: 60 0RF sodium chloride 7 % Solution For Nebulization 4 ml NEB BIDR 30 Days Qty: 120 2RF guaifenesin [Mucinex] 600 mg Tablet Extended Release 12hr 600 mg PO Q12 PRN (Reason: cough) 7 Days Qty: 14 0RF (DME) nebulizers Misc See Rx Instructions .Route Qty: 1 0RF Rx Instructions: As directed with hypertonic saline nebulized solution Continued zolpidem 5 mg tablet 5 mg PO QPM Qty: 30 3RF isosorbide mononitrate 30 mg tablet extended release 24 hr 90 mg PO QAM Qty: 270 3RF Eliquis 5 mg tablet 5 mg PO BID 30 Days Qty: 60 1RF amlodipine 10 mg tablet 10 mg PO DAILY Qty: 90 3RF cholecalciferol (vitamin D3) 50 mcg (2,000 unit) capsule 50 mcg PO BID Qty: 30 0RF nitroglycerin 0.4 mg tablet, sublingual 0.4 mg SL UD PRN (Reason: chest pain) Qty: 20 3RF Rx Instructions: take 5 minutes apart, up to 3 doses in 24H. Januvia 25 mg tablet 25 mg PO QAM Qty: 90 3RF atenolol 50 mg tablet 50 mg PO QAM Qty: 90 3RF simvastatin 20 mg tablet 20 mg PO HS Qty: 90 3RF albuterol sulfate [Ventolin HFA] 90 mcg/actuation HFA aerosol inhaler 2 puff INH Q4H PRN (Reason: shortness of breath or wheezing) Qty: 18 3RF Trelegy Ellipta 100-62.5-25 mcg blister with device 1 inh inhalation DAILY Qty: 3 2RF cranberry conc-ascorbic acid 4,200-20 mg capsule 1 cap PO DAILY calcium citrate-vitamin D3 250 mg calcium- 200 unit tablet 1 tab PO QAM multivitamin tablet 1 tab PO QAM Discontinued furosemide 20 mg tablet 20 mg PO QAM 90 Days Qty: 90 3RF losartan 25 mg tablet 25 mg PO QAM Qty: 90 3RF Discharge Orders: Discharge Order (Routine); Ordered 09/22/22 Ordered By: Libby Salcido Admission Data Admit Date/Time: 09/10/22 18:15 Attending Provider: Joan Cotton Admit Provider: Glenn Ortiz Primary Care Provider: Dagoberto Headley Other Providers: Glenn Ortiz ; [facility] ; Nic Aly ; Mic Richard ; Huan Cabrera ; [facility] ; Latoya Buckner [facility] Other Interventions: Discharge Summary Assessment (RN) Last Done: 09/22/22 15:37 Supervising Physician Co-Signing Physician Notes Resident Physician Supervision Note: I independently interviewed and examined the patient and verified the agmez history and physical, reviewed labs and image studies and agree with resident findings and care plan.
== END 2022-09-22 17:08 | disposition home health service (06) | DRG 291 ==
LOC: ED 15:34 → 2E 18:15 → SUATTDRO 18:15 → 2E 09-11 00:23

== ENCOUNTER 2022-10-08 10:38 | Inpatient (IN) ==
--- NOTE | 2022-10-08 11:14 | Emergency Department Note ---
Impression & Plan Dyspnea ADMIT ED Provider Note HPI: The patient is an 82-year-old female with history of type 2 diabetes, atrial fibrillation, COPD, tachybradycardia syndrome status post pacemaker, presents emergency department with worsening shortness of breath over the past 3 weeks and worsening bilateral lower extremity edema during the same time. Patient states that she has been taking her Lasix as prescribed twice daily. Patient states that she continues to have lower extremity edema and shortness of breath despite this. Patient wears 2 L nasal cannula oxygen at baseline but states she is required 5 L for her dyspnea recently. On arrival here to the ED the patient denies any chest pain, she is saturating at 95% on 4 L nasal cannula oxygen on my initial assessment. ROS: - Per HPI Differential Diagnosis: Acute on chronic CHF exacerbation, acute bacterial pn eumonia, viral upper respiratory infection with cough, acute coronary syndrome, pleural effusion, pulmonary edema, amongst other potential pathologies. *Outpatient medications and allergy history reviewed. *Pertinent external medical records reviewed. PE: General: Alert HEENT: Normocephalic, trachea midline Eyes: Extraocular eye movement is intact, no scleral erythema Pulmonary: Diminished bilateral breath sounds without wheezing Cardio: Regular rate and rhythm GI: Abdomen is soft to palpation : No suprapubic tenderness MSK: No evidence of trauma or malformation of the extremities, 3+ edema bilateral lower extremities Skin: No evidence of rash Neuro: Alert, no focal deficits Psychiatric: Cooperative social services aide: (As interpreted by myself): - An order was placed for continuous cardiac monitoring - Patient was noted to be in paced rhythm with a rate of 70 EKG: (As interpreted by myself): Rate: 74 Rhythm: Ventricular paced rhythm Intervals: QRS 162 ms, QTc [address] changes: No ST elevation Time: 1042 Interventions provided in ED: -IV Lasix Medical Decision Making: Patient presented to the emergency department with dyspnea. IV was established and lab work obtained, patient was maintained on associate marketing manager with increased oxygen requirement to 4 L nasal cannula. Lab work shows no leukocytosis, hemoglobin is stable at 10.1, platelet count is normal at 138, venous blood gas shows normal pH, BNP shows mild hyponatremia 133, potassium is elevated at 5.5, creatinine near baseline at 1.88, troponin is mildly elevated at 16.8, BNP is markedly elevated at 4644. Chest x-ray shows evidence of fluid overload, patient was given IV Lasix here in the ED, I suspect that her dyspnea is secondary to CHF exacerbation with fluid overload. Case was discussed with the on-call hospitalist, Dr. Morrison, and the patient was placed for admission in stable condition. Consultants: Hospitalist, Dr. Morrison Disposition discussion held by myself with: Patient Diagnosis: 1. Acute on chronic CHF exacerbation with dyspnea 2. Elevated BNP level 3. Dyspnea, acute 4. Elevated high-sensitivity troponin level 5. Chronic kidney disease 6. Hyperkalemia, acute, mild Disposition: Admission Gumaro Moreno DO Emergency Medicine Past Med/Surg History Medical History Acute anterior epistaxis Acute lower gastrointestinal bleeding Acute posterior epistaxis Anemia Anticoagulant long-term use Atrial fibrillation permanent, now s/p PPM (2016) Bradycardia CAD (coronary artery disease) MA (1992) CHF (congestive heart failure) follows with [facility] (Dr. Marcos) Chronic diastolic CHF (congestive heart failure) Chronic kidney disease, stage 3 follows with nephrology ([facility]/Dr. Richard) Chronic respiratory failure with hypoxia COPD (chronic obstructive pulmonary disease) 2L HS + occasionally PRN, follows with [facility] COPD with asthma COPD with emphysema Deep vein thrombosis B/L LE (1967), Diabetes mellitus, type 2 NIDDM Dysfunction of left eustachian tube Encounter for pre-operative examination Encounter for pre-operative examination GI bleed Hearing deficit History of kidney cancer s/p L nephrectomy (1997) Hyperlipidemia controlled Hypertension controlled Insomnia Insomnia Intractable back pain Leg swelling Mixed conductive and sensorineural hearing loss of left ear with restricted hearing of right ear Osteoarthritis Osteoporosis Pacemaker Implanted 2016, [employer], last check 09/2019 Pulmonary nodule per records Restless leg syndrome Syncope UTI (urinary tract infection) Vitamin D deficiency Surgical History History of cardiac cath 10+ years ago, no stents History of cholecystectomy History of colonoscopy History of hip surgery R/L NABEEL History of myringotomy + Left ear tube removal: 06/09/19: LMA#4 atraumatic at [facility] History of nephrectomy left History of vaginal hysterectomy Hx of bilateral cataract extraction Status post placement of cardiac pacemaker 2016 Family History Brother Hypertension Mother Cardiac disorder Sister Lung cancer Aunt Lung cancer Father Pneumonia Unknown Family history of allergies Environmental allergies Denies family history of Ovarian cancer Prostate cancer Myocardial infarction Breast cancer Colorectal cancer Social History Smoking Status: Never smoker Tobacco Type: Cigarettes Age Started Using Tobacco: 26; Age Quit Using Tobacco: 55; packs per day: 1; Cigarettes Per Day: 20; Second Hand Exposure: No; Do You Dip or Chew Tobacco: No; Hx Alcohol Use: No Hx Substance Use: No Preferred Language: Kuwaiti Communication Ability: Effective Visual Impairment: No Limitations Hearing Ability: Hard of Hearing Station Detective Required: No Beliefs That Will Affect Care: None marital status: / Current Living Situation: Family Current Living Situation Comment: Son up from [place] to stay wih her current occupational status: retired current occupation: worked at [employer] Feels Safe at Home: Yes Childhood Exposure to Second-Hand Smoke: No Diet: other Diet Comment: Low sugar/ Sugar free options when possible caffeine: Yes (2 cups of coffee daily ) Dental Care, Regularly: No Physical Activity Frequency: Daily Seatbelt Use: always Sunscreen Use: Yes Assistive Devices: Oxygen - Continuous and Walker Allergies Allergies Allergy/AdvReac Type Severity Reaction Status Date / Time chlorthalidone Allergy Severe Swelling Verified 09/25/22 11:21 of Lip/Tongue/Throat Penicillins Allergy Severe Swelling Verified 09/25/22 11:21 of Lip/Tongue/Throat MANDEEP Inhibitors Allergy Unknown Unknown Verified 09/25/22 11:21 trazodone Allergy Unknown Unknown Verified 09/25/22 11:21 Home Meds Home Medications Medication Instructions Recorded Confirmed calcium citrate 250 mg 1 tab PO QAM 11/07/18 09/25/22 calcium-vitamin D3 5 mcg (200 unit) tablet cranberry concentrate-ascorbic 1 cap PO DAILY 11/07/18 09/25/22 acid 4,200 mg-20 mg capsule multivitamin 1 tab PO QAM 11/07/18 09/25/22 Previous Rx's Medication Instructions Recorded cholecalciferol (vitamin D3) 50 50 mcg PO BID #30 caps 09/12/21 mcg (2,000 unit) capsule nitroglycerin 0.4 mg sublingual 0.4 mg sublingual UD PRN chest 09/12/21 tablet pain #20 tabs sitagliptin phosphate 25 mg tablet 25 mg PO QAM #90 tabs 09/12/21 (Januvia) atenolol 50 mg tablet 50 mg PO QAM #90 tabs 01/10/22 simvastatin 20 mg tablet 20 mg PO HS #90 tabs 01/10/22 albuterol sulfate 90 mcg/actuation 2 puff inhalation Q4H PRN 02/21/22 aerosol inhaler (Ventolin HFA) shortness of breath or wheezing #18 grams fluticasone fur. 100 mcg-umeclid 1 inh inhalation DAILY #3 Inhalers 02/21/22 62.5 mcg-vilant 25 mcg inhalat.powder (Trelegy Ellipta) isosorbide mononitrate 30 mg 90 mg PO QAM #270 tabs 08/01/22 tablet,extended release 24 hr apixaban 5 mg tablet (Eliquis) 5 mg PO BID 30 days #60 tabs 09/05/22 furosemide 40 mg tablet 40 mg PO BID 30 days #60 tabs 09/22/22 nebulizers #1 ea 09/22/22 sodium chloride 7 % for 4 ml NEB BIDR 30 days #120 mL 09/22/22 nebulization amlodipine 10 mg tablet 10 mg PO DAILY #90 tabs 09/25/22 buspirone 5 mg tablet 5 mg PO BID PRN anxiety #60 tabs 09/25/22 Results & Data (ED) Vital Signs Vital Signs - 24 hr 10/08/22 10:26 10/08/22 10:56 10/08/22 11:17 Temperature 36.8 C Temperature Source Oral Pulse Rate 70 Pulse Rate [Apical] 60 Respiratory Rate 22 19 Respiratory Effort / Characteristics Short of Breath SOB on Exertion Spontaneous Short of Breath SOB on Exertion Respiratory Depth Normal Normal Respiratory Pattern Regular Blood Pressure 126/87 Blood Pressure [Right Arm] 150/73 H Blood Pressure Mean 100 Blood Pressure Mean [Right Arm] 98 Pulse Oximetry 98 95 Oxygen Delivery Method Nasal Cannula Nasal Cannula Oxygen Flow Rate 4 4 Sepsis Recent Fever Within 48 Hours No Sepsis New/Unexplained Change in Mental Status No Sepsis Action Taken by Nursing No Action Required 10/08/22 12:00 10/08/22 12:01 Temperature Temperature Source Pulse Rate 62 Pulse Rate [Apical] Respiratory Rate 22 Respiratory Effort / Characteristics Respiratory Depth Respiratory Pattern Blood Pressure Blood Pressure [Right Arm] Blood Pressure Mean Blood Pressure Mean [Right Arm] Pulse Oximetry 92 92 Oxygen Delivery Method Nasal Cannula Nasal Cannula Oxygen Flow Rate 4 4 Sepsis Recent Fever Within 48 Hours Sepsis New/Unexplained Change in Mental Status Sepsis Action Taken by Nursing Laboratory Data 10/08/22 11:00 10/08/22 11:00 Lab Results 10/08/22 10/08/22 10/08/22 Range/Units 11:00 11:00 11:00 WBC 5.83 (4.8-10.8) K/ul RBC 3.65 L (4.20-5.40) M/uL Hgb 10.1 L (12.0-16.0) g/dl Hct 32.6 L (37.0-47.0) % MCV 89.3 (80.0-100.0) fL MCH 27.7 (25.0-34.0) pg MCHC 31.0 L (32.0-36.0) g/dL RDW Std Deviation 46.6 H (36.4-46.3) fL RDW Coeff of Stephane 14.3 (11.5-14.5) % Plt Count 138 (130-400) K/uL MPV 10.8 (9.4-12.4) fL Immature Gran % (Auto) 0.3 % Neut % (Auto) 74.5 % Lymph % (Auto) 13.9 % [place] % (Auto) 9.1 % Eos % (Auto) 1.7 % Baso % (Auto) 0.5 % Neut # (Auto) 4.34 (1.40-6.50) K/uL Lymph # (Auto) 0.81 L (1.2-3.4) K/uL [place] # (Auto) 0.53 (0.11-0.59) K/uL Eos # (Auto) 0.10 (0-0.50) K/uL Baso # (Auto) 0.03 (0-0.2) K/uL Immature Gran # (Auto) 0.02 (0.01-0.20) K/uL PT 12.5 H (9.0-12.0) Seconds INR 1.2 H (0.9-1.1) VBG pH (7.36-7.41) VBG pCO2 (38-50) mmHg VBG pO2 mmHg VBG HCO3 mmol/L VBG O2 Saturation % VBG Base Excess mEq/L Sodium 133 L (136-145) mmol/L Potassium 5.5 H (3.5-5.1) mmol/L Chloride 95 L (98-107) mmol/L Carbon Dioxide 33 H (21-32) mmol/L Anion Gap 5 (3-11) BUN 52 H (6-23) mg/dl Creatinine 1.88 H (0.6-1.2) mg/dl Est Cr Clr Drug Dosing 25.8 ml/min Est GFR ( Amer) 27.9 ml/min Est GFR (Non-Af Amer) 24.1 ml/min BUN/Creatinine Ratio 27.7 H (10-20) Glucose 115 H (70-99(Fasting)) mg/dl Calcium 9.7 (8.6-10.3) mg/dl Magnesium 2.5 H (1.7-2.4) mg/dl Total Bilirubin 0.6 (0.2-1.0) mg/dl AST 20 (13-39) U/L ALT 14 (7-52) U/L Alkaline Phosphatase 39 (34-104) U/L Troponin I High Sens 16.8 H (0-14) pg/ml B-Natriuretic Peptide (0-100) pg/ml Total Protein 6.5 (6.0-8.3) gm/dl Albumin 3.6 (3.4-5.0) gm/dl Globulin 2.9 (2.5-4.0) gm/dl Albumin/Globulin Ratio 1.2 (0.9-2) SARS-CoV-2, RNA, NAAT (NEGATIVE) 10/08/22 10/08/22 10/08/22 Range/Units 11:00 11:20 12:22 WBC (4.8-10.8) K/ul RBC (4.20-5.40) M/uL Hgb (12.0-16.0) g/dl Hct (37.0-47.0) % MCV (80.0-100.0) fL MCH (25.0-34.0) pg MCHC (32.0-36.0) g/dL RDW Std Deviation (36.4-46.3) fL RDW Coeff of Stephane (11.5-14.5) % Plt Count (130-400) K/uL MPV (9.4-12.4) fL Immature Gran % (Auto) % Neut % (Auto) % Lymph % (Auto) % [place] % (Auto) % Eos % (Auto) % Baso % (Auto) % Neut # (Auto) (1.40-6.50) K/uL Lymph # (Auto) (1.2-3.4) K/uL [place] # (Auto) (0.11-0.59) K/uL Eos # (Auto) (0-0.50) K/uL Baso # (Auto) (0-0.2) K/uL Immature Gran # (Auto) (0.01-0.20) K/uL PT (9.0-12.0) Seconds INR (0.9-1.1) VBG pH 7.41 (7.36-7.41) VBG pCO2 56 H (38-50) mmHg VBG pO2 30 mmHg VBG HCO3 36 mmol/L VBG O2 Saturation < 60.0 % VBG Base Excess 8.9 mEq/L Sodium (136-145) mmol/L Potassium (3.5-5.1) mmol/L Chloride (98-107) mmol/L Carbon Dioxide (21-32) mmol/L Anion Gap (3-11) BUN (6-23) mg/dl Creatinine (0.6-1.2) mg/dl Est Cr Clr Drug Dosing ml/min Est GFR ( Amer) ml/min Est GFR (Non-Af Amer) ml/min BUN/Creatinine Ratio (10-20) Glucose (70-99(Fasting)) mg/dl Calcium (8.6-10.3) mg/dl Magnesium (1.7-2.4) mg/dl Total Bilirubin (0.2-1.0) mg/dl AST (13-39) U/L ALT (7-52) U/L Alkaline Phosphatase (34-104) U/L Troponin I High Sens (0-14) pg/ml B-Natriuretic Peptide 4644 H (0-100) pg/ml Total Protein (6.0-8.3) gm/dl Albumin (3.4-5.0) gm/dl Globulin (2.5-4.0) gm/dl Albumin/Globulin Ratio (0.9-2) SARS-CoV-2, RNA, NAAT NEGATIVE (NEGATIVE) Administered Medications Discontinued Medications Furosemide (Furosemide 40 Mg/4 Ml Vial) 40 mg IV ONE ONE Stop: 10/08/22 11:35 Last Admin: 10/08/22 11:37 Dose: 40 mg Documented By: Imaging Data Radiologist's Impression: Chest X-Ray 10/08/22 11:09 SINGLE VIEW CHEST CLINICAL HISTORY: Dyspnea. FINDINGS: An AP, portable, upright chest radiograph is compared to study dated 09/19/2022 and correlate with chest CT dated 09/08/2017. A single lead cardiac pacemaker is unchanged in position an partially obscures the left chest. The heart is enlarged noting atherosclerotic calcification of the thoracic aorta. There is pulmonary vascular congestion with interstitial edema. Emphysema and chronic interstitial thickening is similar to previous. There are layering pleural effusions with dependent consolidation. No pneumothorax is seen. The skeletal structures are osteopenic. Arthritic change is noted in the shoulders and spine. There are chronic/healed right-sided rib fractures. IMPRESSION: 1. Cardiomegaly and cardiac pacemaker with evidence of congestive failure and pulmonary edema. 2. Emphysema. 3. Layering pleural effusions with dependent consolidation. ACT 112: Negative or not required by law. Electronically signed by: Dariusz Jensen M.D. 10/08/2022 11:26 AM Discharge Plan Visit Data Chief Complaint: Shortness of Breath/Dyspnea Stated Complaint: SOB ED Provider: Gumaro Moreno Discharge Problem: Dyspnea Patient Disposition: Admitted As Inpatient Discharge Instructions Interventions: ED Discharge Assessment Last Done: 10/08/22 13:24
--- NOTE | 2022-10-08 11:28 | XRay Report ---
SINGLE VIEW CHEST CLINICAL HISTORY: Dyspnea. FINDINGS: An AP, portable, upright chest radiograph is compared to study dated 09/19/2022 and correlate with chest CT dated 09/08/2017. A single lead cardiac pacemaker is unchanged in position an partially obscures the left chest. The heart is enlarged noting atherosclerotic calcification of the thoracic aorta. There is pulmonary vascular congestion with interstitial edema. Emphysema and chronic intersti tial thickening is similar to previous. There are layering pleural effusions with dependent consolida tion. No pneumothorax is seen. The skeletal structures are osteopenic. Arthritic change is noted in t he shoulders and spine. There are chronic/healed right-sided rib fractures. IMPRESSION: 1. Cardiomegaly and cardiac pacemaker with evidence of congestive failure and pulmonary edema. 2. Emphysema. 3. Layering pleural effusions with dependent consolidation. ACT 112: Negative or not required by law. Electronically signed by: Dariusz Jensen M.D. 10/08/2022 11:26 AM
[2022-10-08 11:33] LABS: Basophils # (auto) 0.03 K/uL (0-0.2); Basophils % (auto) 0.5 %; Eosinophils % (auto) 1.7 %; Hematocrit (blood only) 32.6 % (37.0-47.0); Hemoglobin 10.1 g/dl (12.0-16.0); Immature Granulocytes # (auto) 0.02 K/uL (0.01-0.20); Immature Granulocytes % (auto) 0.3 %; Lymphocytes # (auto) 0.81 K/uL (1.2-3.4); Lymphocytes % (auto) 13.9 %; Mean Corpuscular Hemoglobin 27.7 pg (25.0-34.0); Mean Corpuscular Volume 89.3 fL (80.0-100.0); Mean Platelet Volume 10.8 fL (9.4-12.4); Monocytes # (auto) 0.53 K/uL (0.11-0.59); Monocytes % (auto) 9.1 %; Neutrophils # (auto) 4.34 K/uL (1.40-6.50); Neutrophils % (auto) 74.5 %; Platelet Count 138 K/uL (130-400); RDW Coefficient of Variation 14.3 % (11.5-14.5); RDW Standard Deviation 46.6 fL (36.4-46.3); Red Blood Count 3.65 M/uL (4.20-5.40); White Blood Count 5.83 K/ul (4.8-10.8)
[2022-10-08] MEDS ORDERED: FUROSEMIDE 40 MG/4 ML VIAL IV ONE (11:34)
[2022-10-08 11:54] LABS: Albumin Globulin Ratio 1.2 (0.9-2); Albumin Level 3.6 gm/dl (3.4-5.0); BUN Creatinine Ratio 27.7 (10-20); Bilirubin,Total 0.6 mg/dl (0.2-1.0); Calcium 9.7 mg/dl (8.6-10.3); Creatinine Clr Calc Pharmacy 25.8 ml/min; Est GFR (African American) 27.9 ml/min; Est GFR (Non-African American) 24.1 ml/min; Globulin 2.9 gm/dl (2.5-4.0); Potassium 5.5 mmol/L (3.5-5.1); Total Protein 6.5 gm/dl (6.0-8.3)
[2022-10-08 11:57] LABS: INR 1.2 (0.9-1.1); Prothrombin Time 12.5 Seconds (9.0-12.0)
[2022-10-08 11:59] LABS: Troponin I High Sensitivity 16.8 pg/ml (0-14)
[2022-10-08 12:45] LABS: Base Excess VBG 8.9 mEq/L; HCO3 VBG 36 mmol/L; Oxygen Saturation VBG < 60.0 %; PCO2 VBG 56 mmHg (38-50); PO2 VBG 30 mmHg; pH VBG 7.41 (7.36-7.41)
--- NOTE | 2022-10-08 12:53 | History & Physical Report ---
Date of Service October 08, 2022 Assessment & Plan (1) Acute on chronic heart failure with preserved ejection fraction: Plan: Low Na, fluid restrict 1500ml Lasix 40mg IV BID Strict I&Os (barbosa catheter placed on admission) Daily weights Consult cardiology (2) Acute on chronic respiratory failure with hypoxemia: Plan: Baseline 3LPM O2 VBG with CO2 56 and normal pH. This is actually better than arterial PaCO2 from last admission. Therefore BiPAP deferred. She is wheezing on exam but with significant pulmonary edema therefore suspect this is the main cause of her respiraotry failure Possible also secondary component of COPD exacerbation - will give duonebs QID (3) COPD with asthma: Plan: Continue her usual maintenance inhalers Duonebs QID If not improving with diuresis consider steroids given wheezing on exam (4) Hyperkalemia: Plan: Suspect will improve with Lasix use as above. (5) Diabetes mellitus, type 2: Plan: HbA1C 5.5 in August, no need to repeat Hold usual home meds Start Lantus 5 units BID Novolog: --Goal BSG Range: Low 110 mg/dL, High 140 mg/dL --Correction Factor: 45 mg/dL/unit --Carbohydrate ratio = 15 g/unit --BSGs ACHS if eating, q6h if npo (6) Atrial fibrillation: Plan: Current in ventricular paced rhythm Continue anticoagulation with Eliquis Continue rate control with atenolol Plan VTE Prophylaxis - Eliquis Diet - Low Na, Low K, heart healthy, T2DM, fluid restrict Disposition - admit to PCU Admission and Anticipated Discharge Date Admission Date: October 08, 2022 History of Present Illness Chief Complaint: Shortness of breath Primary Care Provider: Dagoberto Headley MD Cammy Zhu is an 82 year old female who presents to the ER with shortness of breath. She was recently admitted to [facility] from September 10 to September 22 due to acute on chronic diastolic heart failure. She underwent right sided thoracentesis on September 17 with 1450ml serous fluid removed consistent with heart failure. She was being diuresed with Lasix 40mg IV BID during that admission but also required some acetazolamide for contraction alkalosis. She reports feeling well since discharge but just getting progressively slowly worse over the last 3 days. No fever, chills, cough, nasal congestion, sinus pain. She has been taking her Lasix 40mg PO BID and no change in her diet. Leg swelling has also been increasing over the time frame and both legs with the swelling have become very painful. Allergies Allergy/AdvReac Type Severity Reaction Status Date / Time chlorthalidone Allergy Severe Swelling Verified 09/25/22 11:21 of Lip/Tongue/Throat Penicillins Allergy Severe Swelling Verified 09/25/22 11:21 of Lip/Tongue/Throat MANDEEP Inhibitors Allergy Unknown Unknown Verified 09/25/22 11:21 trazodone Allergy Unknown Unknown Verified 09/25/22 11:21 Home Medications Medication Instructions Recorded Confirmed Type calcium citrate 250 mg 1 tab PO QAM 11/07/18 09/25/22 History calcium-vitamin D3 5 mcg (200 unit) tablet cranberry concentrate-ascorbic 1 cap PO DAILY 11/07/18 09/25/22 History acid 4,200 mg-20 mg capsule multivitamin 1 tab PO QAM 11/07/18 09/25/22 History cholecalciferol (vitamin D3) 50 50 mcg PO BID #30 caps 09/12/21 09/25/22 Rx mcg (2,000 unit) capsule nitroglycerin 0.4 mg sublingual 0.4 mg sublingual UD PRN chest 09/12/21 09/25/22 Rx tablet pain #20 tabs sitagliptin phosphate 25 mg tablet 25 mg PO QAM #90 tabs 09/12/21 09/25/22 Rx (Januvia) atenolol 50 mg tablet 50 mg PO QAM #90 tabs 01/10/22 09/25/22 Rx simvastatin 20 mg tablet 20 mg PO HS #90 tabs 01/10/22 09/25/22 Rx albuterol sulfate 90 mcg/actuation 2 puff inhalation Q4H PRN 02/21/22 09/25/22 Rx aerosol inhaler (Ventolin HFA) shortness of breath or wheezing #18 grams fluticasone fur. 100 mcg-umeclid 1 inh inhalation DAILY #3 Inhalers 02/21/22 09/25/22 Rx 62.5 mcg-vilant 25 mcg inhalat.powder (Trelegy Ellipta) isosorbide mononitrate 30 mg 90 mg PO QAM #270 tabs 08/01/22 09/25/22 Rx tablet,extended release 24 hr apixaban 5 mg tablet (Eliquis) 5 mg PO BID 30 days #60 tabs 09/05/22 09/25/22 Rx furosemide 40 mg tablet 40 mg PO BID 30 days #60 tabs 09/22/22 09/25/22 Rx nebulizers #1 ea 09/22/22 09/25/22 Rx sodium chloride 7 % for 4 ml NEB BIDR 30 days #120 mL 09/22/22 09/25/22 Rx nebulization amlodipine 10 mg tablet 10 mg PO DAILY #90 tabs 09/25/22 Rx buspirone 5 mg tablet 5 mg PO BID PRN anxiety #60 tabs 09/25/22 09/25/22 Rx Past Med/Surg History Medical History Acute anterior epistaxis Acute lower gastrointestinal bleeding Acute posterior epistaxis Anemia Anticoagulant long-term use Atrial fibrillation permanent, now s/p PPM (2016) Bradycardia CAD (coronary artery disease) MD (1992) CHF (congestive heart failure) follows with [facility] (Dr. Marcos) Chronic diastolic CHF (congestive heart failure) Chronic kidney disease, stage 3 follows with nephrology ([facility]/Dr. Richard) Chronic respiratory failure with hypoxia COPD (chronic obstructive pulmonary disease) 2L HS + occasionally PRN, follows with [facility] COPD with asthma COPD with emphysema Deep vein thrombosis B/L LE (1967), Diabetes mellitus, type 2 NIDDM Dysfunction of left eustachian tube Encounter for pre-operative examination Encounter for pre-operative examination GI bleed Hearing deficit History of kidney cancer s/p L nephrectomy (1997) Hyperlipidemia controlled Hypertension controlled Insomnia Insomnia Intractable back pain Leg swelling Mixed conductive and sensorineural hearing loss of left ear with restricted hearing of right ear Osteoarthritis Osteoporosis Pacemaker Implanted 2016, [employer], last check 09/2019 Pulmonary nodule per records Restless leg syndrome Syncope UTI (urinary tract infection) Vitamin D deficiency Surgical History History of cardiac cath 10+ years ago, no stents History of cholecystectomy History of colonoscopy History of hip surgery R/L NABEEL History of myringotomy + Left ear tube removal: 06/09/19: LMA#4 atraumatic at [facility] History of nephrectomy left History of vaginal hysterectomy Hx of bilateral cataract extraction Status post placement of cardiac pacemaker 2016 Family History Brother Hypertension Mother Cardiac disorder Sister Lung cancer Aunt Lung cancer Father Pneumonia Unknown Family history of allergies Environmental allergies Denies family history of Ovarian cancer Prostate cancer Myocardial infarction Breast cancer Colorectal cancer Social History Smoking Status: Never smoker Tobacco Type: Cigarettes Age Started Using Tobacco: 26; Age Quit Using Tobacco: 55; packs per day: 1; Cigarettes Per Day: 20; Second Hand Exposure: No; Do You Dip or Chew Tobacco: No; Hx Alcohol Use: No Hx Substance Use: No Preferred Language: Yi Communication Ability: Effective Visual Impairment: No Limitations Hearing Ability: Hard of Hearing Floriculture 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: No Beliefs That Will Affect Care: None marital status: / Current Living Situation: Alone Current Living Situation Comment: pt lives in an apartment current occupational status: retired current occupation: worked at [employer] Feels Safe at Home: Yes Safety Concerns: Feels Safe At This Time Childhood Exposure to Second-Hand Smoke: No Diet: other Diet Comment: Low sugar/ Sugar free options when possible caffeine: Yes (2 cups of coffee daily ) Dental Care, Regularly: No Physical Activity Frequency: Daily Seatbelt Use: always Sunscreen Use: Yes Assistive Devices: Denture - Upper, Denture - Lower and Walker Review of Systems Review of Systems: All systems reviewed & are unremarkable except as noted in HPI & below Physical Exam Constitutional: WD/WN, vitals as above no acute distress Eyes: PERRL, conjunctivae normal, anicteric sclerae ENMT: external ear and nose normal, oropharynx normal Respiratory: + respiratory distress, + labored breathing and + uses accessory muscles; expiratory phase not prolonged Auscultation: + wheezes (mild expiratory wheezing); no crackles, no rales and no rhonchi Cardiovascular: Rate/Rhythm: regular rate and regular rhythm Heart Sounds: + murmur (BENNY LUSB 3/6) Extremities: normal capillary refill, + calf tenderness (bilateral) and + pedal edema (2+ pitting b/l equal to abdomen) Gastrointestinal (Abdomen): normal bowel sounds, soft, nontender, no hepatosplenomegaly Musculoskeletal: no cyanosis or clubbing, extremities motor strength 5/5 Skin: no rashes, warm and dry (no areas of cellulitis noted) Neurologic: moves all extremities and awake; not confused Psychiatric: A+Ox3, euthymic affect Genitourinary: no CVA tenderness Results & Data Results & Data Vital Signs (Past 12 Hours) Vital Signs Temp Pulse Pulse Resp BP BP Pulse Ox 10/08/22 12:01 92 10/08/22 12:00 62 22 92 10/08/22 11:17 60 19 150/73 H 95 10/08/22 10:26 36.8 C 70 22 126/87 98 O2 Del Method O2 Flow Rate 10/08/22 12:01 Nasal Cannula 4 10/08/22 12:00 Nasal Cannula 4 10/08/22 11:17 Nasal Cannula 4 10/08/22 10:26 Nasal Cannula 4 Laboratory Results Abnormal lab results 10/08/22 10/08/22 10/08/22 Range/Units 11:00 11:00 11:00 RBC 3.65 L (4.20-5.40) M/uL Hgb 10.1 L (12.0-16.0) g/dl Hct 32.6 L (37.0-47.0) % MCHC 31.0 L (32.0-36.0) g/dL RDW Std Deviation 46.6 H (36.4-46.3) fL Lymph # (Auto) 0.81 L (1.2-3.4) K/uL PT 12.5 H (9.0-12.0) Seconds INR 1.2 H (0.9-1.1) VBG pCO2 (38-50) mmHg Sodium 133 L (136-145) mmol/L Potassium 5.5 H (3.5-5.1) mmol/L Chloride 95 L (98-107) mmol/L Carbon Dioxide 33 H (21-32) mmol/L BUN 52 H (6-23) mg/dl Creatinine 1.88 H (0.6-1.2) mg/dl BUN/Creatinine Ratio 27.7 H (10-20) Glucose 115 H (70-99(Fasting)) mg/dl Troponin I High Sens 16.8 H (0-14) pg/ml B-Natriuretic Peptide (0-100) pg/ml 10/08/22 10/08/22 Range/Units 11:00 12:22 RBC (4.20-5.40) M/uL Hgb (12.0-16.0) g/dl Hct (37.0-47.0) % MCHC (32.0-36.0) g/dL RDW Std Deviation (36.4-46.3) fL Lymph # (Auto) (1.2-3.4) K/uL PT (9.0-12.0) Seconds INR (0.9-1.1) VBG pCO2 56 H (38-50) mmHg Sodium (136-145) mmol/L Potassium (3.5-5.1) mmol/L Chloride (98-107) mmol/L Carbon Dioxide (21-32) mmol/L BUN (6-23) mg/dl Creatinine (0.6-1.2) mg/dl BUN/Creatinine Ratio (10-20) Glucose (70-99(Fasting)) mg/dl Troponin I High Sens (0-14) pg/ml B-Natriuretic Peptide 4644 H (0-100) pg/ml Diagnostic Findings SINGLE VIEW CHEST CLINICAL HISTORY: Dyspnea. FINDINGS: An AP, portable, upright chest radiograph is compared to study dated 09/19/2022 and correlate with chest CT dated 09/08/2017. A single lead cardiac pacemaker is unchanged in position an partially obscures the left chest. The heart is enlarged noting atherosclerotic calcification of the thoracic aorta. There is pulmonary vascular congestion with interstitial edema. Emphysema and chronic interstitial thickening is similar to previous. There are layering pleur al effusions with dependent consolidation. No pneumothorax is seen. The skeletal structures are osteopenic. Arthritic change is noted in the shoulders and spine. There are chronic/healed right-sided rib fractures. IMPRESSION: 1. Cardiomegaly and cardiac pacemaker with evidence of congestive failure and pulmonary edema. 2. Emphysema. 3. Layering pleural effusions with dependent consolidation. Medications Administered ER Medications Given: Lasix 40mg IV ECG Rate (beats per minute): 74 Rhythm: other (ventricular paced) Findings: no acute ischemic change Comparison ECG Date: from (September 17, 2022) Change: no significant change Code Status & VTE Plan Code Status Full VTE Prophylaxis Plan VTE Prophylaxis will be ordered: Yes PG Care Time/CCT Total # of Minutes Spent Total Time Spent with Patient: Total time spent is greater than 50% in coordination of care (as documented) at patient's floor/unit and/or counseling patient: Coding Level of Care Code 71585 INT INP/OBS CARE MIN Diagnoses Acute on chronic heart failure with preserved ejection fraction I50.33 Acute on chronic respiratory failure with hypoxemia J96.21 COPD with asthma J44.9 Hyperkalemia E87.5 Diabetes mellitus, type 2 E11.9 Atrial fibrillation I48.91
[2022-10-08 13:49] LABS: Magnesium 2.5 mg/dl (1.7-2.4)
[2022-10-08 15:02] LABS: Appearance Urine Clear (Clear); Bacteria Urine Automated Negative (Negative); Bilirubin Urine Negative (Negative); Blood Urine 1+ (Negative); Color Urine Yellow; Epithelial Cell Urine Auto 20-30 /lpf (0-5); Glucose Urine UA Negative (Negative); Ketones Urine Negative (Negative); Leukocyte Esterase Urine Trace (Negative); Nitrite Urine Positive (Negative); Protein Urine Negative (Negative); RBC Urine Automated 0-4 /hpf (0-4); Specific Gravity Urine 1.009 (1.000-1.030); Urobilinogen Urine Negative (Negative); pH Urine 5.5 (4.5-7.5)
[2022-10-08] MEDS ORDERED: busPIRone 5 MG TAB PO PRN (15:02)
[2022-10-08] MEDS ORDERED: GLUCOSE 40% GEL 15 GM TUBE PO PRN (15:03)
[2022-10-08] MEDS ORDERED: GLUCAGON FOR INJ 1 MG VIAL SQ PRN (15:03)
[2022-10-08] MEDS ORDERED: DEXTROSE 50% 50 ML SYRINGE IV PRN (15:03)
[2022-10-08] MEDS ORDERED: GLUCOSE 10 TAB/TUBE PO PRN (15:03)
[2022-10-08] MEDS ORDERED: CARBOHYDRATES FOR HYPOGLYCEMIA PO PRN (15:03)
[2022-10-08 15:36] LABS: Total Protein Urine Random 10.2 mg/dl (0-11.9)
[2022-10-08 15:42] LABS: Creatinine Urine Random 48.1 mg/dl; Protein Creatinine Ratio Urine 0.2 (0-0.2)
[2022-10-08] MEDS: ATENOLOL 50 MG TABLET PO SCH (16:09)
[2022-10-08] MEDS: ISOSORBIDE MONO EXTENDED REL 30 MG TABCR PO SCH (16:09)
[2022-10-08] MEDS: FLUTICASONE FUROATE 100MCG 14 PUFFS/INHALER INH SCH (16:10)
[2022-10-08] MEDS: UMECLIDINIUM/VILANTEROL 62.5/25MCG 7 PUFFS/INHALER INH SCH (16:11)
--- NOTE | 2022-10-08 16:12 | Electrocardiogram Report ---
Test Reason : Blood Pressure : / mmHG Vent. Rate : 074 BPM Atrial Rate : 034 BPM P-R Int : 000 ms QRS Dur : 162 ms QT Int : 450 ms P-R-T Axes : 000 -83 095 degrees QTc Int : 499 ms Ventricular-paced rhythm Abnormal ECG When compared with ECG of 17-SEP-2022 12:49, Vent. rate has increased BY 14 BPM Confirmed by Kirill Marcos ([id number]) on 10/08/2022 4:11:34 PM Referred By: Srini Headley Confirmed By:Kirill Marcos
[2022-10-08] MEDS ORDERED: FUROSEMIDE 40 MG/4 ML VIAL IV SCH (17:00)
[2022-10-08] MEDS: INSULIN ASPART PER UNIT CHARGE SC SCH ×2 (17:08→21:30)
[2022-10-08] MEDS: oxyCODONE HCL IR 5 MG TAB (IMMEDIATE RELEASE) PO PRN (18:40)
[2022-10-08] MEDS: ALBUT/IPRATROP 3MG/0.5MG NEB 3 ML VIAL NEB SCH (19:34)
[2022-10-08] MEDS: SODIUM CHLOR 7% 4 ML NEB NEB SCH (19:35)
[2022-10-08] MEDS: APIXABAN 5 MG TABLET PO SCH (21:24)
[2022-10-08] MEDS: SIMVASTATIN 20 MG TAB PO SCH (21:24)
[2022-10-08] MEDS: FUROSEMIDE 40 MG/4 ML VIAL IV SCH (21:30)
[2022-10-08] MEDS: LANTUS PER UNIT CHARGE SQ SCH (21:30)
[2022-10-09] MEDS: oxyCODONE HCL IR 5 MG TAB (IMMEDIATE RELEASE) PO PRN ×3 (02:04→21:26)
[2022-10-09 05:19] LABS: Basophils # (auto) 0.04 K/uL (0-0.2); Basophils % (auto) 0.7 %; Eosinophils # (auto) 0.16 K/uL (0-0.50); Eosinophils % (auto) 2.7 %; Hematocrit (blood only) 29.6 % (37.0-47.0); Hemoglobin 9.4 g/dl (12.0-16.0); Immature Granulocytes # (auto) 0.02 K/uL (0.01-0.20); Immature Granulocytes % (auto) 0.3 %; Lymphocytes # (auto) 0.97 K/uL (1.2-3.4); Lymphocytes % (auto) 16.5 %; Mean Corpuscular Hemoglobin 27.5 pg (25.0-34.0); Mean Corpuscular Hgb Conc 31.8 g/dL (32.0-36.0); Mean Corpuscular Volume 86.5 fL (80.0-100.0); Mean Platelet Volume 10.9 fL (9.4-12.4); Monocytes # (auto) 0.73 K/uL (0.11-0.59); Monocytes % (auto) 12.4 %; Neutrophils # (auto) 3.95 K/uL (1.40-6.50); Neutrophils % (auto) 67.4 %; Platelet Count 132 K/uL (130-400); RDW Coefficient of Variation 14.4 % (11.5-14.5); RDW Standard Deviation 45.6 fL (36.4-46.3); Red Blood Count 3.42 M/uL (4.20-5.40); White Blood Count 5.87 K/ul (4.8-10.8)
[2022-10-09 05:33] LABS: Albumin Globulin Ratio 1.2 (0.9-2); Albumin Level 3.1 gm/dl (3.4-5.0); BUN Creatinine Ratio 25.9 (10-20); Bilirubin,Total 0.5 mg/dl (0.2-1.0); Calcium 9.4 mg/dl (8.6-10.3); Creatinine Clr Calc Pharmacy 24.1 ml/min; Est GFR (African American) 26.4 ml/min; Est GFR (Non-African American) 22.8 ml/min; Globulin 2.5 gm/dl (2.5-4.0); Potassium 5.1 mmol/L (3.5-5.1); Total Protein 5.6 gm/dl (6.0-8.3)
[2022-10-09] MEDS: SODIUM CHLOR 7% 4 ML NEB NEB SCH ×2 (05:53→19:35)
[2022-10-09] MEDS: ALBUT/IPRATROP 3MG/0.5MG NEB 3 ML VIAL NEB SCH ×4 (05:53→19:35)
[2022-10-09] MEDS: INSULIN ASPART PER UNIT CHARGE SC SCH ×4 (07:30→20:50)
[2022-10-09] MEDS: UMECLIDINIUM/VILANTEROL 62.5/25MCG 7 PUFFS/INHALER INH SCH (07:52)
[2022-10-09] MEDS: FLUTICASONE FUROATE 100MCG 14 PUFFS/INHALER INH SCH (07:52)
[2022-10-09] MEDS: LANTUS PER UNIT CHARGE SQ SCH ×2 (07:53→20:49)
[2022-10-09] MEDS: ACETAMINOPHEN 325 MG TAB PO PRN (07:53)
[2022-10-09] MEDS: FUROSEMIDE 40 MG/4 ML VIAL IV SCH ×2 (07:59→20:16)
[2022-10-09] MEDS: APIXABAN 5 MG TABLET PO SCH ×2 (07:59→20:16)
[2022-10-09] MEDS: ISOSORBIDE MONO EXTENDED REL 30 MG TABCR PO SCH (08:00)
[2022-10-09] MEDS: ATENOLOL 50 MG TABLET PO SCH (08:00)
--- NOTE | 2022-10-09 12:01 | Cardiology Consultation ---
Date of Consultation October 09, 2022 Assessment & Plan (1) Acute on chronic heart failure with preserved ejection fraction: -acute exacerbation despite daily weights and sliding-scale diuretics at home. -we may need to adjust her dry weight lower than previously designated 207 lbs. -agree with intravenous Lasix 40 mg b.i.d. -agree with holding amlodipine. (2) CAD (coronary artery disease): -s/p inferior MT, 1992. -continue medical management. (3) Atrial fibrillation: -permanent atrial fibrillation remains asymptomatic. -continue with rate control and long-term anticoagulation. -should probably be on low-dose Eliquis (creatinine greater than 1.5, age >80). (4) Pacemaker: -VVI device placed in May 2016. -normal interrogation back in July. (5) Aortic stenosis: -moderate in degree on echocardiogram last month. History of Present Illness Attending Physician: Mckay Avery DO History of Present Illness Mrs. Zhu is an 82-year-old female admitted yesterday with acute chronic diastolic CHF. This consultation was ordered to assist in her cardiac management. Of note, patient is well known to me from the outpatient setting. Her recent history began on September 10 when she was admitted to our institution with acute on chronic diastolic CHF. She required aggressive diuresis actually had a left-sided thoracentesis for large pleural effusion. The pleural effusion was transudative. She was discharged home on September 22 in stable fashion. While at home, she was following daily weights and sliding-scale diuretics. She was also adherent to a low-salt diet according to her report. However, over approximately 3 days prior to presentation, she began to note increasing lower extremity edema and progressive shortness of breath. She also noted a 5-6 lb weight gain despite taking Lasix 40 mg b.i.d.. She did have an echocardiogram performed last month which noted systolic function with ejection fraction 50-55%. There was and distal inferior wall motion abnormality along with moderate aortic stenosis, moderate mitral regurgitation, and moderate tricuspid regurgitation. She has not experienced any angina pectoris. She further denies syncope presyncope PND, or orthopnea. She does not experience symptoms with her permanent atrial fibrillation. She specifically denies palpitations. She does have a VVI pacemaker that was implanted in May 2016 for her tachycardia/bradycardia syndrome. She did have a pacer interrogation performed in July which was normal. Currently, patient is resting comfortably in bed. Past medical and surgical history 1. Coronary artery disease-inferior MT, 1992 2. Hypertension 3. Hypercholesterolemia 4. Chronic diastolic CHF 5. Permanent atrial fibrillation 6. Tachycardia/bradycardia syndrome 7. VVI pacemaker-May 2016 8. Moderate aortic stenosis 9. Moderate mitral regurgitation 10. Diabetes mellitus 11. Chronic renal failure 12. COPD 13. Chronic respiratory failure 14. Hearing deficit 15. Pulmonary nodule 16. Renal carcinoma 17. Vitamin-D deficiency 18. DJD 19. Left nephrectomy -1997 20. Cholecystectomy 21. Left THR 22. Vaginal hysterectomy 23. Bilateral intra-ocular lens implants Social history , lives alone Quit tobacco use at age 55, 30 pack year history No alcohol Family history Noncontributory Review of systems A 10 point review of systems was undertaken and negative except that described above. Allergies Allergy/AdvReac Type Severity Reaction Status Date / Time chlorthalidone Allergy Severe Swelling Verified 09/25/22 11:21 of Lip/Tongue/Throat Penicillins Allergy Severe Swelling Verified 09/25/22 11:21 of Lip/Tongue/Throat MANDEEP Inhibitors Allergy Unknown Unknown Verified 09/25/22 11:21 trazodone Allergy Unknown Unknown Verified 09/25/22 11:21 Home Medications Medication Instructions Recorded Confirmed Type calcium citrate 250 mg 1 tab PO QAM 11/07/18 09/25/22 History calcium-vitamin D3 5 mcg (200 unit) tablet cranberry concentrate-ascorbic 1 cap PO DAILY 11/07/18 09/25/22 History acid 4,200 mg-20 mg capsule multivitamin 1 tab PO QAM 11/07/18 09/25/22 History cholecalciferol (vitamin D3) 50 50 mcg PO BID #30 caps 09/12/21 09/25/22 Rx mcg (2,000 unit) capsule nitroglycerin 0.4 mg sublingual 0.4 mg sublingual UD PRN chest 09/12/21 09/25/22 Rx tablet pain #20 tabs sitagliptin phosphate 25 mg tablet 25 mg PO QAM #90 tabs 09/12/21 09/25/22 Rx (Januvia) atenolol 50 mg tablet 50 mg PO QAM #90 tabs 01/10/22 09/25/22 Rx simvastatin 20 mg tablet 20 mg PO HS #90 tabs 01/10/22 09/25/22 Rx albuterol sulfate 90 mcg/actuation 2 puff inhalation Q4H PRN 02/21/22 09/25/22 Rx aerosol inhaler (Ventolin HFA) shortness of breath or wheezing #18 grams fluticasone fur. 100 mcg-umeclid 1 inh inhalation DAILY #3 Inhalers 02/21/22 09/25/22 Rx 62.5 mcg-vilant 25 mcg inhalat.powder (Trelegy Ellipta) isosorbide mononitrate 30 mg 90 mg PO QAM #270 tabs 08/01/22 09/25/22 Rx tablet,extended release 24 hr apixaban 5 mg tablet (Eliquis) 5 mg PO BID 30 days #60 tabs 09/05/22 09/25/22 Rx furosemide 40 mg tablet 40 mg PO BID 30 days #60 tabs 09/22/22 09/25/22 Rx nebulizers #1 ea 09/22/22 09/25/22 Rx sodium chloride 7 % for 4 ml NEB BIDR 30 days #120 mL 09/22/22 09/25/22 Rx nebulization amlodipine 10 mg tablet 10 mg PO DAILY #90 tabs 09/25/22 Rx buspirone 5 mg tablet 5 mg PO BID PRN anxiety #60 tabs 09/25/22 09/25/22 Rx Patient History Medical History (Updated 10/09/22 @ 12:10 by Kirill Marcos MD) Acute anterior epistaxis Acute lower gastrointestinal bleeding Acute posterior epistaxis Anemia Anticoagulant long-term use Atrial fibrillation permanent, now s/p PPM (2016) Bradycardia CAD (coronary artery disease) [place] (1992) CHF (congestive heart failure) follows with [facility] (Dr. Marcos) Chronic diastolic CHF (congestive heart failure) Chronic kidney disease, stage 3 follows with nephrology ([facility]/Dr. Richard) Chronic respiratory failure with hypoxia COPD (chronic obstructive pulmonary disease) 2L HS + occasionally PRN, follows with [facility] COPD with asthma COPD with emphysema Deep vein thrombosis B/L LE (1967), Diabetes mellitus, type 2 NIDDM Dysfunction of left eustachian tube Elevated troponin Encounter for pre-operative examination Encounter for pre-operative examination GI bleed Hearing deficit History of kidney cancer s/p L nephrectomy (1997) Hyperlipidemia controlled Hypertension controlled Insomnia Insomnia Intractable back pain Leg swelling Mixed conductive and sensorineural hearing loss of left ear with restricted hearing of right ear Osteoarthritis Osteoporosis Pacemaker Implanted 2017, [employer], last check 09/2019 Pulmonary nodule per records Restless leg syndrome Syncope UTI (urinary tract infection) Vitamin D deficiency Surgical History History of cardiac cath 10+ years ago, no stents History of cholecystectomy History of colonoscopy History of hip surgery R/L NABEEL History of myringotomy + Left ear tube removal: 06/09/19: LMA#4 atraumatic at [facility] History of nephrectomy left History of vaginal hysterectomy Hx of bilateral cataract extraction Status post placement of cardiac pacemaker 2016 Family History Brother Hypertension Mother Cardiac disorder Sister Lung cancer Aunt Lung cancer Father Pneumonia Unknown Family history of allergies Environmental allergies Denies family history of Ovarian cancer Prostate cancer Myocardial infarction Breast cancer Colorectal cancer Social History Smoking Status: Never smoker Tobacco Type: Cigarettes Age Started Using Tobacco: 26; Age Quit Using Tobacco: 55; packs per day: 1; Cigarettes Per Day: 20; Second Hand Exposure: No; Do You Dip or Chew Tobacco: No; Hx Alcohol Use: No Hx Substance Use: No Preferred Language: German Communication Ability: Effective Visual Impairment: No Limitations Hearing Ability: Hard of Hearing Technician Support Association Required: No Beliefs That Will Affect Care: None marital status: / Current Living Situation: Alone Current Living Situation Comment: pt lives in an apartment current occupational status: retired current occupation: worked at [employer] Feels Safe at Home: Yes Safety Concerns: Feels Safe At This Time Childhood Exposure to Second-Hand Smoke: No Diet: other Diet Comment: Low sugar/ Sugar free options when possible caffeine: Yes (2 cups of coffee daily ) Dental Care, Regularly: No Physical Activity Frequency: Daily Seatbelt Use: always Sunscreen Use: Yes Assistive Devices: Denture - Upper, Denture - Lower and Walker Physical Exam Physical Exam: In general this is a well-developed well-nourished female in no acute distress. HEENT exam is negative. Neck is supple with delayed carotid upstrokes. No obvious bruits or transmitted murmurs. Jugular is pressure is difficult to assess. Cardiovascular exam reveals a regular rhythm with distant heart sounds. A 2/6 crescendo decrescendo systolic murmur is loudest at the base. No S3. Lungs note decreased breath sounds at the bases. Rales are noted above this area with diffuse expiratory wheezes. Chest reveals a palpable pacemaker in the left subclavicular region. Abdomen is obese without bruits. Extremities reveal intact radial artery pulses bilaterally. 2+ pitting edema noted to the knees, 1+ thigh edema. Results & Data Vital Signs (Past 12 Hours) Vital Signs Temp Pulse Pulse Resp BP Pulse Ox O2 Del Method 10/09/22 10:01 60 16 100 Nasal Cannula 10/09/22 10:01 123/70 10/09/22 10:45 56 L 16 97 Nasal Cannula 10/09/22 08:00 Nasal Cannula 10/09/22 08:00 Nasal Cannula 10/09/22 08:00 36.3 C L 60 19 94 Nasal Cannula 10/09/22 08:00 153/58 H 10/09/22 07:01 36.0 C L 60 13 95 10/09/22 07:01 141/55 H 10/09/22 07:00 36.0 C L 60 19 90 10/09/22 06:00 36.1 C L 62 25 H 88 L 10/09/22 06:00 133/86 10/09/22 05:01 36.1 C L 60 19 89 L 10/09/22 05:01 144/89 H 10/09/22 04:00 36.1 C L 60 22 93 10/09/22 04:00 140/86 10/09/22 03:02 144/70 H 10/09/22 03:02 36.1 C L 60 17 96 10/09/22 02:00 36.2 C L 57 L 22 94 10/09/22 02:00 152/66 H 10/09/22 05:53 60 18 96 Nasal Cannula 10/09/22 01:00 143/66 H 10/09/22 01:00 36.2 C L 60 15 98 10/09/22 00:00 36.3 C L 61 16 10/09/22 00:00 142/64 H 10/09/22 00:00 57 L O2 Flow Rate 10/09/22 10:01 4 10/09/22 10:01 10/09/22 10:45 4 10/09/22 08:00 4 10/09/22 08:00 10/09/22 08:00 4 10/09/22 08:00 10/09/22 07:01 10/09/22 07:01 10/09/22 07:00 10/09/22 06:00 10/09/22 06:00 10/09/22 05:01 10/09/22 05:01 10/09/22 04:00 10/09/22 04:00 10/09/22 03:02 10/09/22 03:02 10/09/22 02:00 10/09/22 02:00 10/09/22 05:53 5 10/09/22 01:00 10/09/22 01:00 10/09/22 00:00 10/09/22 00:00 10/09/22 00:00 Laboratory Results CBC notes hemoglobin 9.4, hematocrit 29.6, white count 5.8, platelet count [id number]. Electrolytes note a sodium of 134, potassium 5.1, chloride 96, bicarb 36, BUN 51, creatinine 1.97, glucose of 85. High sensitivity troponin is 16.8. BNP is elevated 4644. Diagnostic Findings EKG notes atrial fibrillation and ventricular pacing. Chest x-ray notes cardiomegaly, bilateral pleural effusions, and diffuse interstitial edema. Echocardiogram as described above. PG Care Time/CCT Total # of Minutes Spent Total Time Spent with Patient: Total time spent is greater than 50% in coordination of care (as documented) at patient's floor/unit and/or counseling patient: Coding Level of Care Code 92543 INT INP/OBS CARE 3/75MIN Diagnoses Acute on chronic heart failure with preserved ejection fraction I50.33 CAD (coronary artery disease) I25.10 Atrial fibrillation I48.91 Pacemaker Z95.0 Aortic stenosis I35.0
--- NOTE | 2022-10-09 16:44 | Hospitalist Progress Note ---
Date of Service October 09, 2022 Assessment & Plan (1) Acute on chronic heart failure with preserved ejection fraction: Plan: Fluid overload demonstrated in LLE and shortness of breath. Need to evaluate diet and plan for what should be arranged for after discharged. * Low Na, fluid restrict 1500ml * Lasix 40mg IV BID * Strict I&Os (barbosa catheter placed on admission) * Daily weights * Consult cardiology (2) Acute on chronic respiratory failure with hypoxemia: Plan: Wheezing on exam, but with significant pulm edema therefore is probably the respiratory failure. Baseline 3LPM O2. VBG with CO2 56 and normal pH. * Possible also secondary component of COPD exacerbation - will give duonebs QID (3) COPD with asthma: Plan: * Continue her usual maintenance inhalers * Duonebs QID * If not improving with diuresis consider steroids given wheezing on exam (4) Hyperkalemia: Plan: Suspect will improve with Lasix use as above. (5) Diabetes mellitus, type 2: Plan: HbA1C 5.5 in August, no need to repeat * Hold usual home med * Lantus 5 units BID Novolog: --Goal BSG Range: Low 110 mg/dL, High 140 mg/dL --Correction Factor: 45 mg/dL/unit --Carbohydrate ratio = 15 g/unit --BSGs ACHS if eating, q6h if npo (6) Atrial fibrillation: Plan: Current in ventricular paced rhythm. * Eliquis 5mg BID * Atenolol 50 QAM Plan VTE Prophylaxis - Eliquis Diet - Low Na, Low K, heart healthy, T2DM, fluid restrict Disposition - admit to PCU Admission and Anticipated Discharge Date Admission Date: October 08, 2022 Supervising Physician Co-Signing Physician Notes I personally examined the patient and verified all gamez points of history and exam, discussed case, and agree with decision making with Yesenia Kimball MS4 and Dr Salcido feeling better than when she came in, although breathing still not back to baseline. In discussion of diet, her daughter has been making her soup that she believes is low sodium, but she has also been getting Meals on Wheels and she is not sure of the sodium content in that. Vitals noted, in general she is awake and alert pleasant no distress. HEENT normocephalic atraumatic mucous membranes moist. Breathing unlabored no accessory muscle use good effort. Skin shows no rashes no pallor or icterus. Neuro shows no focal deficits. Acute on chronic diastolic CHFseems to have been again mediated most likely by sodium in her diet, although she has significant barriers given that she is quite old, lives alone, broke her dentures when she fell a few months ago, etc .but we will need to try to work with her to try to find ways to have her eat low-sodium. Continue to try to adjust medications if we can, consider something like an SGLT 2 even though she is diastolic, given that it may aid in diuresis some. For now diuresis, if she reaches a plateau, consider repeat thoracentesis. otherwise as above Subjective Cammy is a 82 yo female with pmh of HFpEF, COPD, DM, Afib, who presented with pain and swelling in her ankles and belly, with shortness of breath. She was admitted between September 10 through September 22 for CHF exacerbation. She reports filling not 100 percent after leaving the hospital the last time but over the last 3 days she has felt significantly worse with pain and shortness of breath. She reports that she was adherent to all of her medication and has greatly attempted to reduce her sodium intake. She reports having Meals on Wheels deliver her dinners. She reports that her daughter in law makes a chicken broth for her lunch that is made from scratch with no salt added. In addition, her dentures are broken which has been restricting her intake of foods and restricts her to soups and soft foods. Review of Systems Constitutional: Denied fever, night sweats, fatigue, weakness, dizziness Eyes: Denied blurry vision Respiratory: Denied cough Endorses shortness of breath. Cardiovascular: Additional Comments: Denied chest pain, palpitations Gastrointestinal: Denied nausea, vomiting, diarrhea. Endorses abdominal pain. Musculoskeletal: endorse pain in her ankles. Neurologic: Denied weaknesss, numbness, or tingling. Physical Exam Constitutional: Alert and oriented x3 in hopsital bed Eyes: Pupils were equal, normal shape, and reactive. Neck: Respiratory: labored breathing, mild wheezing, distant breath sounds, no crackles auscultated on exam, Cardiovascular: Normal rate and regular rhythm, Murmur, Radial pulses equal b/l. Capillary refill less than 2 sec. Gastrointestinal (Abdomen): Distended, nontender, normoactive bowel sounds. Musculoskeletal: Skin: Warm dry, no apparent rashed. Psychiatric: Appropriate mood and affect. Results & Data Results & Data Vital Signs (Past 12 Hours) Vital Signs Temp Pulse Pulse Resp BP Pulse Ox O2 Del Method 10/09/22 14:00 36.7 C 63 19 95 10/09/22 14:00 128/65 10/09/22 15:19 Nasal Cannula 10/09/22 14:56 63 20 94 Nasal Cannula 10/09/22 12:00 60 19 94 Nasal Cannula 10/09/22 12:00 140/57 L 10/09/22 11:00 115/65 10/09/22 11:00 60 19 96 10/09/22 10:01 60 16 100 Nasal Cannula 10/09/22 10:01 123/70 10/09/22 10:45 56 L 16 97 Nasal Cannula 10/09/22 08:00 Nasal Cannula 10/09/22 08:00 Nasal Cannula 10/09/22 08:00 36.3 C L 60 19 94 Nasal Cannula 10/09/22 08:00 153/58 H 10/09/22 07:01 36.0 C L 60 13 95 10/09/22 07:01 141/55 H 10/09/22 07:00 36.0 C L 60 19 90 10/09/22 06:00 36.1 C L 62 25 H 88 L 10/09/22 06:00 133/86 10/09/22 05:01 36.1 C L 60 19 89 L 10/09/22 05:01 144/89 H 10/09/22 05:53 60 18 96 Nasal Cannula O2 Flow Rate 10/09/22 14:00 10/09/22 14:00 10/09/22 15:19 3 10/09/22 14:56 3 10/09/22 12:00 4 10/09/22 12:00 10/09/22 11:00 10/09/22 11:00 10/09/22 10:01 4 10/09/22 10:01 10/09/22 10:45 4 10/09/22 08:00 4 10/09/22 08:00 10/09/22 08:00 4 10/09/22 08:00 10/09/22 07:01 10/09/22 07:01 10/09/22 07:00 10/09/22 06:00 10/09/22 06:00 10/09/22 05:01 10/09/22 05:01 10/09/22 05:53 5 ECG Additional Comments: No acute changes
--- NOTE | 2022-10-09 18:23 | Billing Data ---
Date of Service October 09, 2022 Coding Level of Care Code 27219 SUB INP/OBS CARE MIN
[2022-10-09] MEDS: SIMVASTATIN 20 MG TAB PO SCH (20:16)
[2022-10-10 04:58] LABS: Basophils # (auto) 0.03 K/uL (0-0.2); Basophils % (auto) 0.5 %; Eosinophils # (auto) 0.21 K/uL (0-0.50); Eosinophils % (auto) 3.4 %; Hematocrit (blood only) 30.7 % (37.0-47.0); Hemoglobin 9.6 g/dl (12.0-16.0); Immature Granulocytes # (auto) 0.02 K/uL (0.01-0.20); Immature Granulocytes % (auto) 0.3 %; Lymphocytes % (auto) 14.7 %; Mean Corpuscular Hemoglobin 27.7 pg (25.0-34.0); Mean Corpuscular Hgb Conc 31.3 g/dL (32.0-36.0); Mean Corpuscular Volume 88.7 fL (80.0-100.0); Mean Platelet Volume 9.7 fL (9.4-12.4); Monocytes # (auto) 0.71 K/uL (0.11-0.59); Monocytes % (auto) 11.6 %; Neutrophils # (auto) 4.25 K/uL (1.40-6.50); Neutrophils % (auto) 69.5 %; Platelet Count 120 K/uL (130-400); RDW Coefficient of Variation 14.5 % (11.5-14.5); RDW Standard Deviation 46.5 fL (36.4-46.3); Red Blood Count 3.46 M/uL (4.20-5.40); White Blood Count 6.12 K/ul (4.8-10.8)
[2022-10-10 05:12] LABS: BUN Creatinine Ratio 27.6 (10-20); Creatinine Clr Calc Pharmacy 27.4 ml/min; Est GFR (African American) 30.7 ml/min; Est GFR (Non-African American) 26.5 ml/min; Magnesium 2.3 mg/dl (1.7-2.4); Potassium 4.6 mmol/L (3.5-5.1)
--- NOTE | 2022-10-10 07:15 | Hospitalist Progress Note ---
Date of Service October 10, 2022 Assessment & Plan (1) Acute on chronic heart failure with preserved ejection fraction: Plan: Weight down. Fluid overload demonstrated in LLE and shortness of breath. Cre normal (1.74) Need to evaluate diet and plan for what should be arranged for after discharged. * Low Na, fluid restrict 1500ml * Continue Lasix 40mg IV BID * Strict I&Os (Booker catheter placed on admission) * Daily weights * Consult cardiology * Working with Nurse navigation for Meals for Mom to change meal plan to low sodium. (2) Acute on chronic respiratory failure with hypoxemia: Plan: Wheezing on exam, but with significant pulm edema therefore is probably the respiratory failure. Baseline 3LPM O2. VBG with CO2 56 and normal pH. * Possible also secondary component of COPD exacerbation - will give duonebs QID (3) COPD with asthma: Plan: * Continue her usual maintenance inhalers * Duonebs QID * If not improving with diuresis consider steroids given wheezing on exam (4) Hyperkalemia: Plan: Suspect will improve with Lasix use as above. (5) Diabetes mellitus, type 2: Plan: HbA1C 5.5 in August, no need to repeat * Hold usual home med * Lantus 5 units BID Novolog: --Goal BSG Range: Low 110 mg/dL, High 140 mg/dL --Correction Factor: 45 mg/dL/unit --Carbohydrate ratio = 15 g/unit --BSGs ACHS if eating, q6h if npo (6) Atrial fibrillation: Plan: Currently in ventricular paced rhythm. * Eliquis 5mg BID * Atenolol 50 QAM Plan VTE Prophylaxis - Eliquis Diet - Low Na, Low K, heart healthy, T2DM, fluid restrict Disposition - admit to PCU Admission and Anticipated Discharge Date Admission Date: October 08, 2022 Supervising Physician Co-Signing Physician Notes I personally examined the patient and verified all gamez points of history and exam, discussed case, and agree with decision making with Yesenia Kimball MS4 and Dr Salcido Breathing feeling a little better than yesterday, still not yet back to baseline. More amenable to the idea that lifestyle changes needed, even if she is not quite clear what she will be able to do yet. Identifies barriers of lack of family support (she has family that cares for her, but have a lot of their own health issuesso they cannot really help out a lot such as cooking), she does not feel competent to cook for herself, she lives alone, and still does not have dentures. Vitals noted, in general she is awake and alert pleasant no distress. HEENT normocephalic atraumatic mucous membranes moist. Breathing unlabored no accessory muscle use good effort left base diminished with faint rales mid lung, right side base and midlung rales no rhonchi no wheezes. Skin shows no rashes no pallor or icterus. Neuro shows no focal deficits. Acute on chronic diastolic CHFseems to have been again mediated most likely by sodium in her diet, although she has significant barriers given that she is quite old, lives alone, broke her dentures when she fell a few months ago, has a caring family but they are unable to provide much material support/cooking/etc. etc.but we will need to try to work with her to try to find ways to have her ea t low-sodium (Case management looking into mom's meals, dietitian to see patient, continuing to discuss ideas). Continue to try to adjust medications if we can, consider something like an SGLT 2 even though she is diastolic, given that it may aid in diuresis some. For now diuresis, if she reaches a plateau and is still dyspneic, consider repeat thoracentesis. otherwise as above Subjective Ms. Chawla reports feeling better today, she states that the edema still feels the same and maybe "a little better". Had a discussion about family and support system, has three sons, one lives locally "[facility]". He is bringing at home CPAP because hospital CPAP hurts her nose. Going to discuss. Review of Systems Constitutional: Denied fever, night sweats, fatigue, weakness, dizziness Respiratory: Denied cough or shortness of breath. Cardiovascular: Additional Comments: Denied chest pain, palpitations Gastrointestinal: Denied nausea, vomiting, diarrhea, abdominal pain. Neurologic: Denied weaknesss, numbness, or tingling. Physical Exam Constitutional: Alert and oriented x3 in hopsital bed Eyes: Pupils were equal, normal shape, and reactive. Neck: Respiratory: CTA, increased work of breathing, sob, wheezing, shallow breath. Cardiovascular: Normal rate and regular rhythmn. No heart sounds ausculated. Radial pulses equal b/l. Capillary refill less than 2 sec. Gastrointestinal (Abdomen): Mild distended, nontender, normoactive bowel sounds. Musculoskeletal: Upper extremity 5/5 strength Lower extremity 5/5 strength Pitting edema up to knees. Skin: Warm dry, no apparent rashed. Psychiatric: Appropriate mood and affect. Lymphatic: No lymphadenopathy in the neck and cervical region. Results & Data Results & Data Vital Signs (Past 12 Hours) Vital Signs Temp Pulse Pulse Resp BP BP Pulse Ox 10/10/22 03:17 10/10/22 02:00 36.4 C L 57 L 15 98 10/10/22 01:00 36.5 C 60 14 100 10/10/22 00:00 36.5 C 60 15 95 10/10/22 00:00 131/58 L 10/09/22 23:43 36.5 C 57 L 16 97 10/09/22 23:43 147/71 H 10/09/22 23:00 36.7 C 60 15 95 10/09/22 22:00 36.7 C 60 15 94 10/09/22 21:00 36.8 C 178 H 25 H 10/09/22 20:21 36.9 C 60 26 H 10/09/22 20:21 130/88 10/09/22 20:00 36.8 C 61 21 94 10/09/22 20:00 137/66 10/10/22 00:00 36.6 C 60 14 131/58 L 99 10/09/22 22:22 62 18 94 10/09/22 20:00 10/09/22 20:00 36.6 C 60 21 130/88 98 10/09/22 19:35 60 18 93 O2 Del Method O2 Flow Rate 10/10/22 03:17 8 10/10/22 02:00 10/10/22 01:00 10/10/22 00:00 10/10/22 00:00 10/09/22 23:43 10/09/22 23:43 10/09/22 23:00 10/09/22 22:00 10/09/22 21:00 10/09/22 20:21 10/09/22 20:21 10/09/22 20:00 10/09/22 20:00 10/10/22 00:00 CPAP 10/09/22 22:22 8 10/09/22 20:00 Nasal Cannula 3 10/09/22 20:00 Nasal Cannula, High Flow Nasal Cannula 3 10/09/22 19:35 Nasal Cannula 3
[2022-10-10] MEDS: ALBUT/IPRATROP 3MG/0.5MG NEB 3 ML VIAL NEB SCH ×4 (07:19→18:59)
[2022-10-10] MEDS: SODIUM CHLOR 7% 4 ML NEB NEB SCH ×2 (07:19→18:59)
[2022-10-10] MEDS: ATENOLOL 50 MG TABLET PO SCH (08:11)
[2022-10-10] MEDS: FUROSEMIDE 40 MG/4 ML VIAL IV SCH ×2 (08:11→20:22)
[2022-10-10] MEDS: ISOSORBIDE MONO EXTENDED REL 30 MG TABCR PO SCH (08:11)
[2022-10-10] MEDS: APIXABAN 5 MG TABLET PO SCH (08:11)
[2022-10-10] MEDS: LANTUS PER UNIT CHARGE SQ SCH ×2 (08:12→20:23)
[2022-10-10] MEDS: FLUTICASONE FUROATE 100MCG 14 PUFFS/INHALER INH SCH (08:12)
[2022-10-10] MEDS: INSULIN ASPART PER UNIT CHARGE SC SCH ×4 (08:13→20:20)
[2022-10-10] MEDS: oxyCODONE HCL IR 5 MG TAB (IMMEDIATE RELEASE) PO PRN ×2 (08:55→14:04)
[2022-10-10] MEDS: UMECLIDINIUM/VILANTEROL 62.5/25MCG 7 PUFFS/INHALER INH SCH (08:56)
--- NOTE | 2022-10-10 11:39 | Cardiology Progress Note ---
Date of Service October 10, 2022 Assessment & Plan (1) Acute on chronic heart failure with preserved ejection fraction: Plan: -improving on intravenous Lasix. -we may need to adjust her dry weight lower than previously designated 207 lbs. -agree with holding amlodipine. (2) CAD (coronary artery disease): Plan: -s/p inferior [place], 1992. -continue medical management. (3) Atrial fibrillation: Plan: -permanent atrial fibrillation remains asymptomatic. -continue with rate control and long-term anticoagulation. -agree with low-dose Eliquis (creatinine greater than 1.5, age >80). (4) Pacemaker: Plan: -VVI device placed in May 2016. -normal interrogation back in July. (5) Aortic stenosis: Plan: -moderate in degree on echocardiogram last month. Admission and Anticipated Discharge Date Admission Date: October 08, 2022 Subjective The patient is resting comfortably in bed notes some improvement in her breathing and lower extremity edema. Denies palpitations. Physical Exam Physical Exam: In general this is a well-developed well-nourished female in no acute distress. HEENT exam is negative. Neck is supple with delayed carotid upstrokes. No obvious bruits or transmitted murmurs. Jugular is pressure is difficult to assess. Cardiovascular exam reveals a regular rhythm with distant heart sounds. A 2/6 crescendo decrescendo systolic murmur is loudest at the base. No S3. Lungs note decreased breath sounds at the bases. Rales are noted above this area with diffuse expiratory wheezes. Chest reveals a palpable pacemaker in the left subclavicular region. Abdomen is obese without bruits. Extremities reveal intact radial artery pulses bilaterally. 2+ pitting edema noted to the knees, 1+ thigh edema. Results & Data Vital Signs (Past 12 Hours) Vital Signs Temp Pulse Pulse Resp BP BP Pulse Ox 10/10/22 11:34 36.7 C 66 25 H 140/81 89 L 10/10/22 11:09 88 14 89 L 10/10/22 08:00 62 10/10/22 07:36 10/10/22 07:19 67 25 H 88 L 10/10/22 07:00 36.4 C L 60 20 90 10/10/22 06:00 36.3 C L 63 24 10/10/22 05:00 36.3 C L 61 14 10/10/22 04:36 36.3 C L 60 18 98 10/10/22 04:36 113/80 10/10/22 04:00 36.3 C L 57 L 17 10/10/22 03:00 36.4 C L 66 21 93 10/10/22 04:00 36.6 C 62 27 H 113/80 93 10/10/22 03:17 10/10/22 02:00 36.4 C L 57 L 15 98 10/10/22 01:00 36.5 C 60 14 100 10/10/22 00:00 36.5 C 60 15 95 10/10/22 00:00 131/58 L 10/09/22 23:43 36.5 C 57 L 16 97 10/09/22 23:43 147/71 H 10/10/22 00:00 36.6 C 60 14 131/58 L 99 O2 Del Method O2 Flow Rate 10/10/22 11:34 Nasal Cannula 3 10/10/22 11:09 Nasal Cannula 3 10/10/22 08:00 10/10/22 07:36 Nasal Cannula 3 10/10/22 07:19 Nasal Cannula 3 10/10/22 07:00 10/10/22 06:00 10/10/22 05:00 10/10/22 04:36 10/10/22 04:36 10/10/22 04:00 10/10/22 03:00 10/10/22 04:00 Nasal Cannula 3 10/10/22 03:17 8 10/10/22 02:00 10/10/22 01:00 10/10/22 00:00 10/10/22 00:00 10/09/22 23:43 10/09/22 23:43 10/10/22 00:00 CPAP Diagnostic Findings probation manager notes rate controlled atrial fibrillation and an occasional paced beat. PG Care Time/CCT Total # of Minutes Spent Total Time Spent with Patient: Total time spent is greater than 50% in coordination of care (as documented) at patient's floor/unit and/or counseling patient: Coding Level of Care Code 94244 SUB INP/OBS CARE 3/50MIN Diagnoses Acute on chronic heart failure with preserved ejection fraction I50.33 CAD (coronary artery disease) I25.10 Atrial fibrillation I48.91 Pacemaker Z95.0 Aortic stenosis I35.0
--- NOTE | 2022-10-10 16:33 | Billing Data ---
Date of Service October 10, 2022 Coding Level of Care Code 51339 SUB INP/OBS CARE MIN
[2022-10-10] MEDS: APIXABAN 2.5 MG TAB PO SCH (20:23)
[2022-10-10] MEDS: SIMVASTATIN 20 MG TAB PO SCH (20:23)
[2022-10-10] MEDS: ACETAMINOPHEN 325 MG TAB PO PRN (21:19)
[2022-10-11] MEDS: NYSTATIN POWDER 15GM BTL EXT PRN ×2 (01:24→21:07)
[2022-10-11] MEDS ORDERED: MELATONIN 3 MG TAB PO PRN (02:25)
[2022-10-11 05:14] LABS: Basophils # (auto) 0.03 K/uL (0-0.2); Basophils % (auto) 0.5 %; Eosinophils # (auto) 0.15 K/uL (0-0.50); Eosinophils % (auto) 2.4 %; Hematocrit (blood only) 30.1 % (37.0-47.0); Hemoglobin 9.5 g/dl (12.0-16.0); Immature Granulocytes # (auto) 0.02 K/uL (0.01-0.20); Immature Granulocytes % (auto) 0.3 %; Lymphocytes # (auto) 0.96 K/uL (1.2-3.4); Lymphocytes % (auto) 15.5 %; Mean Corpuscular Hemoglobin 27.6 pg (25.0-34.0); Mean Corpuscular Hgb Conc 31.6 g/dL (32.0-36.0); Mean Corpuscular Volume 87.5 fL (80.0-100.0); Mean Platelet Volume 10.7 fL (9.4-12.4); Monocytes # (auto) 0.77 K/uL (0.11-0.59); Monocytes % (auto) 12.4 %; Neutrophils # (auto) 4.28 K/uL (1.40-6.50); Neutrophils % (auto) 68.9 %; Platelet Count 131 K/uL (130-400); RDW Coefficient of Variation 14.6 % (11.5-14.5); Red Blood Count 3.44 M/uL (4.20-5.40); White Blood Count 6.21 K/ul (4.8-10.8)
[2022-10-11 05:26] LABS: BUN Creatinine Ratio 28.2 (10-20); Calcium 8.9 mg/dl (8.6-10.3); Creatinine Clr Calc Pharmacy 26.8 ml/min; Est GFR (African American) 31.5 ml/min; Est GFR (Non-African American) 27.2 ml/min; Potassium 4.2 mmol/L (3.5-5.1)
[2022-10-11] MEDS: SODIUM CHLOR 7% 4 ML NEB NEB SCH ×2 (06:55→19:31)
[2022-10-11] MEDS: ALBUT/IPRATROP 3MG/0.5MG NEB 3 ML VIAL NEB SCH ×4 (06:55→19:31)
--- NOTE | 2022-10-11 07:22 | Hospitalist Progress Note ---
Date of Service October 11, 2022 Assessment & Plan (1) Acute on chronic heart failure with preserved ejection fraction: Plan: LLE is doing better. Definitely getting more dry. Fluid overload demonstrated in LLE and shortness of breath. Cre continues to stay at baseline (1.7). If there is no improvment in SOB with a Cre increase we will need to consider thoracentesis for the pleural effusions. Need to evaluate diet and plan for what should be arranged for after discharged. * Cardiology agrees with plan. * Low Na, fluid restrict 1500ml * Continue Lasix 40mg IV BID * Strict I&Os (Booker catheter placed on admission) * Daily weights * Working with Nurse navigation to find meal options for low sodium. (2) Acute on chronic respiratory failure with hypoxemia: Plan: Wheezing on exam, but with significant pulm edema therefore is probably the respiratory failure. Baseline 3LPM O2. VBG with CO2 56 and normal pH. * Possible also secondary component of COPD exacerbation - will give duonebs QID (3) COPD with asthma: Plan: Continued wheezing * Continue her usual maintenance inhalers * Duonebs QID * If not improving with diuresis consider steroids given wheezing on exam (4) Hyperkalemia: Plan: Has improved with Lasix (5) Diabetes mellitus, type 2: Plan: HbA1C 5.5 in August, no need to repeat * Hold usual home med * Lantus 5 units BID Novolog: --Goal BSG Range: Low 110 mg/dL, High 140 mg/dL --Correction Factor: 45 mg/dL/unit --Carbohydrate ratio = 15 g/unit --BSGs ACHS if eating, q6h if npo (6) Atrial fibrillation: Plan: Currently in ventricular paced rhythm. * Eliquis 5mg BID * Atenolol 50 QAM (7) Sleep difficulties: Plan: Increased anxiety with sons going through medical challenges. Having a hard time falling asleep and staying asleep even with at home BIPAP. * Adjusting dosing for melatonin to be given earlier in the evening. Plan VTE Prophylaxis - Eliquis Diet - Low Na, Low K, heart healthy, T2DM, fluid restrict Disposition - admit to PCU Admission and Anticipated Discharge Date Admission Date: October 08, 2022 Supervising Physician Co-Signing Physician Notes I personally examined the patient and verified all gamez points of history and exam, discussed case, and agree with decision making with Yesenia Kimball MS4 and Dr Salcido breathing a little better still. discussed family's proposed plan for rehab -> move with family in [place] - she likes this idea. Vitals noted, in general she is awake and alert pleasant no distress. HEENT normocephalic atraumatic mucous membranes moist. a little more difficult exam today but diminished left, otherwise quiet but more clear Acute on chronic diastolic CHFseems to have been again mediated most likely by sodium in her diet,barriers would be much improved with rehab -> livign with family - and low Na diet might be more feasible then. continue to diurese for now - although with creatinine leveling off and CO2 going up slightly - might be approaching dry. consider thoracentesis if breathing still poor and creatinine bumps - but seems less likely to be the case since she's not having much dyspnea. Continue to try to adjust medications if we can, consider something like an SGLT 2 even though she is diastolic, given that it may aid in diuresis some. For now diuresis, if she reaches a plateau and is still dyspneic, consider repeat thoracentesis. otherwise as above Subjective No acute events overnight. Pt states that she is feeling slightly better than yesterday. No longer endorses abdominal pain and says that the leg pain has decreased. She doesn't know if her breathing has improved at all. She had a hard time sleeping last night. States that she feels very anxious about her son in [place] who is getting a medical procedure done and the recovery of her other son from an HI. She is asking if there is anything she can take to help her relax. Review of Systems Respiratory: Denied cough Endorses shortness of breath. Cardiovascular: Additional Comments: Denied chest pain, palpitations Gastrointestinal: Denied nausea, vomiting, diarrhea, abdominal pain. Musculoskeletal: Endorses leg pain Neurologic: Denied weaknesss, numbness, or tingling. Physical Exam Constitutional: Alert and oriented x3 in hopsital bed Eyes: Pupils were equal, normal shape, and reactive. Neck: Respiratory: CTA, no increased work of breathing Cardiovascular: Normal rate and regular rhythm. S1 S2, holosystolic murmur heard on exam. No heart sounds auscultated. Radial pulses equal b/l. Capillary refill less than 2 sec. Gastrointestinal (Abdomen): Nondistended, nontender, normoactive bowel sounds. Musculoskeletal: Pitting edema up to calves +1 Skin: Warm dry, no apparent rashed. Psychiatric: Appropriate mood and affect. Lymphatic: No lymphadenopathy in the neck and cervical region. Results & Data Results & Data Vital Signs (Past 12 Hours) Vital Signs Temp Pulse Pulse Resp BP Pulse Ox O2 Del Method 10/11/22 03:10 36.7 C 61 23 159/61 H 95 Nasal Cannula 10/11/22 00:00 61 10/10/22 22:30 62 23 92 10/10/22 23:01 36.7 C 64 18 149/78 H 92 BiPAP 10/10/22 19:16 36.9 C 60 22 166/67 H 100 Nasal Cannula 10/10/22 19:14 Nasal Cannula O2 Flow Rate 10/11/22 03:10 2 10/11/22 00:00 10/10/22 22:30 8 10/10/22 23:01 10/10/22 19:16 2 10/10/22 19:14 3 Laboratory Results 10/11/22 04:27 10/11/22 04:27
[2022-10-11] MEDS: INSULIN ASPART PER UNIT CHARGE SC SCH ×4 (07:31→20:58)
[2022-10-11] MEDS: APIXABAN 2.5 MG TAB PO SCH ×2 (08:08→21:00)
[2022-10-11] MEDS: ATENOLOL 50 MG TABLET PO SCH (08:08)
[2022-10-11] MEDS: FLUTICASONE FUROATE 100MCG 14 PUFFS/INHALER INH SCH (08:08)
[2022-10-11] MEDS: FUROSEMIDE 40 MG/4 ML VIAL IV SCH ×2 (08:09→20:59)
[2022-10-11] MEDS: UMECLIDINIUM/VILANTEROL 62.5/25MCG 7 PUFFS/INHALER INH SCH (08:09)
[2022-10-11] MEDS: ISOSORBIDE MONO EXTENDED REL 30 MG TABCR PO SCH (08:09)
[2022-10-11] MEDS: LANTUS PER UNIT CHARGE SQ SCH ×2 (08:13→20:59)
--- NOTE | 2022-10-11 13:40 | Billing Data ---
Date of Service October 11, 2022 Coding Level of Care Code 49944 SUB INP/OBS CARE MIN
[2022-10-11] MEDS: POLYETHYLENE (MIRALAX) 17 GM PACK PO SCH (15:20)
[2022-10-11] MEDS ORDERED: MELATONIN 3 MG TAB PO SCH (21:00)
[2022-10-11] MEDS: SIMVASTATIN 20 MG TAB PO SCH (21:00)
[2022-10-12 07:14] LABS: Basophils # (auto) 0.03 K/uL (0-0.2); Basophils % (auto) 0.5 %; Eosinophils # (auto) 0.15 K/uL (0-0.50); Eosinophils % (auto) 2.5 %; Hematocrit (blood only) 32.6 % (37.0-47.0); Hemoglobin 10.2 g/dl (12.0-16.0); Immature Granulocytes # (auto) 0.03 K/uL (0.01-0.20); Immature Granulocytes % (auto) 0.5 %; Lymphocytes # (auto) 0.67 K/uL (1.2-3.4); Lymphocytes % (auto) 11.4 %; Mean Corpuscular Hemoglobin 27.6 pg (25.0-34.0); Mean Corpuscular Hgb Conc 31.3 g/dL (32.0-36.0); Mean Corpuscular Volume 88.3 fL (80.0-100.0); Mean Platelet Volume 10.6 fL (9.4-12.4); Monocytes # (auto) 0.58 K/uL (0.11-0.59); Monocytes % (auto) 9.8 %; Neutrophils # (auto) 4.44 K/uL (1.40-6.50); Neutrophils % (auto) 75.3 %; Platelet Count 126 K/uL (130-400); RDW Coefficient of Variation 14.6 % (11.5-14.5); RDW Standard Deviation 46.6 fL (36.4-46.3); Red Blood Count 3.69 M/uL (4.20-5.40)
[2022-10-12] MEDS: SODIUM CHLOR 7% 4 ML NEB NEB SCH ×2 (07:16→19:20)
[2022-10-12] MEDS: ALBUT/IPRATROP 3MG/0.5MG NEB 3 ML VIAL NEB SCH ×4 (07:16→19:20)
--- NOTE | 2022-10-12 07:24 | Hospitalist Progress Note ---
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 Acute on chronic HFpEF LLE is doing better. Definitely getting more dry. Fluid overload demonstrated in LLE and shortness of breath. Cre continues to stay at baseline (1.7). If there is no improvement in SOB with a Cr increase we will need to consider thoracentesis for the pleural effusions. Need to evaluate diet and plan for what should be arranged for after discharged. * Cardiology agrees with plan. * Low Na, fluid restrict 1500ml * Continue Lasix 40mg IV BID * Strict I&Os (Booker catheter placed on admission) * Daily weights * Working with CM to find meal options for low sodium. Acute on chronic respiratory failure, COPD with asthma Worsening oxygenation status in setting of HFpEF exacerbation. Improving oxygenation with diuresis. Patient on ICS and LAMA/LABA for obstructive airway disease. Continuing home meds. Added on albuterol and NS nebs as patient was having wheezing. If not improving with diuresis consider steroids given wheezing on exam Baseline oxygen requirement 2-3L. Was up to 5L. Improved. Continue to monitor. Electrolyte abnormalities Hyperkalemia in the setting of fluid overload. Resolved. T2DM HbA1C 5.5 in August, no need to repeat * Hold usual home med * Lantus 5 units BID Novolog: --Goal BSG Range: Low 110 mg/dL, High 140 mg/dL --Correction Factor: 45 mg/dL/unit --Carbohydrate ratio = 15 g/unit --BSGs ACHS if eating, q6h if npo A fib Rate controlled at present. Ventricularly paced. * Eliquis 5mg BID * Atenolol 50 QAM Sleeping difficulties Increased anxiety with sons going through medical challenges. Having a hard time falling asleep and staying asleep even with at home CPAP. * Will increase melatonin to 6 mg * With patient's age would avoid antihistamines VTE Prophylaxis - Eliquis Diet - Low Na, Low K, heart healthy, T2DM, fluid restrict Disposition - admit to PCU Code status: full (2) Acute on chronic respiratory failure with hypoxemia: (3) COPD with asthma: (4) Hyperkalemia: (5) Diabetes mellitus, type 2: (6) Atrial fibrillation: (7) Sleep difficulties: Admission and Anticipated Discharge Date Admission Date: October 08, 2022 Supervising Physician Co-Signing Physician Notes I personally examined the patient and verified all gamez points of history and exam, discussed case, and agree with decision making with Dr Santiago No new complaints, breathing better. Vitals noted, in general she is awake and alert pleasant no distress. HEENT normocephalic atraumatic mucous membranes moist. Breathing unlabored no accessory muscle use good effort. Skin shows no rashes no pallor or icterus. Neuro without focal deficits. Acute on chronic diastolic CHFseems to have been again mediated most likely by sodium in her diet,barriers would be much improved with rehab -> living with family - and low Na diet might be more feasible then. continue to diurese for now -continues to show progress and no barriers requiring cessation- might be approaching dry. consider thoracentesis if breathing still poor and creatinine bumps - but seems less likely to be the case since she's not having much dyspnea. Continue to try to adjust medications if we can, consider something like an SGLT 2 even though she is diastolic, given that it may aid in diuresis some. For now diuresis, if she reaches a plateau and is still dyspneic, consider repeat thoracentesis. otherwise as above Subjective Reports slight improvement in SOB and swelling. Otherwise no complaints. No CP, abdominal pain, fevers, or chills. Is anxious about her children as they are having medical concerns as well. Review of Systems Review of Systems: See HPI Physical Exam Physical Exam: Gen: frail appearing elderly female in NAD HEENT: AT NC Resp: CTAB no increased work of breathing CV: RRR holosystolic murmur on exam clinically well perfused Abd: non-distended Neuro: alert and oriented Psych: appropriate mood and affect Skin: no rashes or bruises appreciated Results & Data Results & Data Vital Signs (Past 12 Hours) Vital Signs Temp Pulse Pulse Pulse Resp BP Pulse Ox 10/12/22 07:18 66 20 94 06/24/23 03:49 36.3 C L 61 18 136/66 95 10/11/22 22:30 61 10/11/22 23:16 36.3 C L 60 18 161/71 H 95 10/11/22 20:26 10/11/22 20:22 36.4 C L 66 20 158/68 H 94 10/11/22 19:32 62 20 96 O2 Del Method O2 Flow Rate 10/12/22 07:18 Nasal Cannula 2 10/12/22 03:49 Nasal Cannula 3 10/11/22 22:30 10/11/22 23:16 CPAP 3 10/11/22 20:26 Nasal Cannula 4 10/11/22 20:22 Nasal Cannula 4 10/11/22 19:32 Nasal Cannula 2 Laboratory Results 10/12/22 06:28 10/12/22 06:28 Resident Activity Tracking Resident Involvement: Resident Care Provided Care Provided: Adult Hospital Medicine
[2022-10-12 07:42] LABS: BUN Creatinine Ratio 30.2 (10-20); Creatinine Clr Calc Pharmacy 33.9 ml/min; Est GFR (African American) 40.2 ml/min; Est GFR (Non-African American) 34.7 ml/min; Potassium 4.2 mmol/L (3.5-5.1)
[2022-10-12] MEDS: APIXABAN 2.5 MG TAB PO SCH ×2 (09:00→20:29)
[2022-10-12] MEDS: FUROSEMIDE 40 MG/4 ML VIAL IV SCH ×2 (09:00→20:37)
[2022-10-12] MEDS: FLUTICASONE FUROATE 100MCG 14 PUFFS/INHALER INH SCH (09:00)
[2022-10-12] MEDS: ISOSORBIDE MONO EXTENDED REL 30 MG TABCR PO SCH (09:00)
[2022-10-12] MEDS: ATENOLOL 50 MG TABLET PO SCH (09:00)
[2022-10-12] MEDS: UMECLIDINIUM/VILANTEROL 62.5/25MCG 7 PUFFS/INHALER INH SCH (09:00)
[2022-10-12] MEDS: POLYETHYLENE (MIRALAX) 17 GM PACK PO SCH (09:00)
[2022-10-12] MEDS: LANTUS PER UNIT CHARGE SQ SCH ×2 (09:04→20:36)
[2022-10-12] MEDS: INSULIN ASPART PER UNIT CHARGE SC SCH ×4 (10:46→20:36)
--- NOTE | 2022-10-12 18:03 | Billing Data ---
Date of Service October 12, 2022 Coding Level of Care Code 81942 SUB INP/OBS CARE
[2022-10-12] MEDS: MELATONIN 3 MG TAB PO SCH (20:27)
[2022-10-12] MEDS: SIMVASTATIN 20 MG TAB PO SCH (21:14)
[2022-10-13] MEDS: SODIUM CHLOR 7% 4 ML NEB NEB SCH ×2 (07:03→19:39)
[2022-10-13] MEDS: ALBUT/IPRATROP 3MG/0.5MG NEB 3 ML VIAL NEB SCH ×4 (07:03→19:39)
--- NOTE | 2022-10-13 07:50 | Hospitalist Progress Note ---
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 Acute on chronic HFpEF LLE is doing better. Definitely getting more dry. Fluid overload demonstrated in LLE and shortness of breath. Cre continues to stay at baseline (1.7). If there is no improvement in SOB with a Cr increase we will need to consider thoracentesis for the pleural effusions. Need to evaluate diet and plan for what should be arranged for after discharged. * Cardiology agrees with plan. * Low Na, fluid restrict 1500ml * Continue Lasix 40mg IV BID * Strict I&Os (Booker catheter placed on admission) * Daily weights * Working with CM to find meal options for low sodium. Acute on chronic respiratory failure, COPD with asthma Worsening oxygenation status in setting of HFpEF exacerbation. Improving oxygenation with diuresis. Patient on ICS and LAMA/LABA for obstructive airway disease. Continuing home meds. Added on albuterol and NS nebs as patient was having wheezing. If not improving with diuresis consider steroids given wheezing on exam Baseline oxygen requirement 2-3L. Was up to 5L. Improved. Continue to monitor. CXR 10/13 as there is concern for worsening effusion. Could consider repeat thoracentesis Electrolyte abnormalities Hyperkalemia in the setting of fluid overload. Resolved. T2DM HbA1C 5.5 in August, no need to repeat * Hold usual home med * Lantus 5 units BID Novolog: --Goal BSG Range: Low 110 mg/dL, High 140 mg/dL --Correction Factor: 45 mg/dL/unit --Carbohydrate ratio = 15 g/unit --BSGs ACHS if eating, q6h if npo A fib Rate controlled at present. Ventricularly paced. * Eliquis 5mg BID * Atenolol 50 QAM Sleeping difficulties Increased anxiety with sons going through medical challenges. Having a hard time falling asleep and staying asleep even with at home CPAP. * Will increase melatonin to 6 mg * With patient's age would avoid antihistamines VTE Prophylaxis - Eliquis Diet - Low Na, Low K, heart healthy, T2DM, fluid restrict Disposition - admit to PCU Code status: full (2) Acute on chronic respiratory failure with hypoxemia: (3) COPD with asthma: (4) Hyperkalemia: (5) Diabetes mellitus, type 2: (6) Atrial fibrillation: (7) Sleep difficulties: Admission and Anticipated Discharge Date Admission Date: October 08, 2022 Supervising Physician Co-Signing Physician Notes I personally examined the patient and verified all gamez points of history and exam, discussed case, and agree with decision making with Dr Santiago feeling ok. Vitals noted, in general she is awake and alert pleasant no distress. HEENT normocephalic atraumatic mucous membranes moist. Breathing unlabored no accessory muscle use good effort. Skin shows no rashes no pallor or icterus. Neuro without focal deficits. Acute on chronic diastolic CHFseems to have been again mediated most likely by sodium in her diet,barriers would be much improved with rehab -> living with family - and low Na diet might be more feasible then. continue to diurese for now -continues to show progress and no barriers requiring cessation- might be approaching dry. consider thoracentesis if breathing still poor and creatinine bumps - but seems less likely to be the case since she's not having much dyspnea. Continue to try to adjust medications if we can, consider something like an SGLT 2 even though she is diastolic, given that it may aid in diuresis some. For now diuresis, if she reaches a plateau and is still dyspneic, consider repeat thoracentesis. for SNF once approved/available otherwise as above Subjective Patient seen at bedside. Reports worsening shortness of breath. No fevers or chills. No chest pain. Leg edema reportedly improving. Review of Systems Review of Systems: See HPI Physical Exam Physical Exam: Gen: frail appearing elderly female in NAD HEENT: AT NC Resp: diminished breath sounds bilateral bases L>R, no wheezing CV: RRR holosystolic murmur on exam clinically well perfused Abd: non-distended Neuro: alert and oriented Psych: appropriate mood and affect Skin: no rashes or bruises appreciated Results & Data Results & Data Vital Signs (Past 12 Hours) Vital Signs Temp Pulse Pulse Resp BP Pulse Ox O2 Del Method 10/13/22 07:03 64 18 95 Nasal Cannula 10/13/22 06:00 60 10/13/22 02:51 36.4 C L 60 20 147/68 H 93 Nasal Cannula 10/12/22 22:02 67 10/12/22 23:18 36.4 C L 65 16 148/71 H 100 CPAP 10/12/22 21:04 Nasal Cannula O2 Flow Rate 10/13/22 07:03 3 10/13/22 06:00 10/13/22 02:51 3 10/12/22 22:02 10/12/22 23:18 10/12/22 21:04 2 Laboratory Results 10/13/22 06:37 10/13/22 06:37 Resident Activity Tracking Resident Involvement: Resident Care Provided Care Provided: Adult Hospital Medicine
[2022-10-13 07:51] LABS: BUN Creatinine Ratio 30.8 (10-20); Calcium 8.7 mg/dl (8.6-10.3); Creatinine Clr Calc Pharmacy 35.4 ml/min; Est GFR (African American) 42.4 ml/min; Est GFR (Non-African American) 36.6 ml/min
[2022-10-13 07:52] LABS: Basophils # (auto) 0.04 K/uL (0-0.2); Basophils % (auto) 0.7 %; Eosinophils % (auto) 3.5 %; Hemoglobin 9.5 g/dl (12.0-16.0); Immature Granulocytes # (auto) 0.02 K/uL (0.01-0.20); Immature Granulocytes % (auto) 0.3 %; Lymphocytes # (auto) 0.86 K/uL (1.2-3.4); Lymphocytes % (auto) 14.9 %; Mean Corpuscular Hemoglobin 27.6 pg (25.0-34.0); Mean Corpuscular Hgb Conc 30.6 g/dL (32.0-36.0); Mean Corpuscular Volume 90.1 fL (80.0-100.0); Mean Platelet Volume 10.6 fL (9.4-12.4); Monocytes # (auto) 0.66 K/uL (0.11-0.59); Monocytes % (auto) 11.4 %; Neutrophils % (auto) 69.2 %; Platelet Count 125 K/uL (130-400); RDW Coefficient of Variation 14.7 % (11.5-14.5); RDW Standard Deviation 48.4 fL (36.4-46.3); Red Blood Count 3.44 M/uL (4.20-5.40); White Blood Count 5.78 K/ul (4.8-10.8)
[2022-10-13] MEDS: LANTUS PER UNIT CHARGE SQ SCH ×2 (09:05→20:52)
[2022-10-13] MEDS: FLUTICASONE FUROATE 100MCG 14 PUFFS/INHALER INH SCH (09:05)
[2022-10-13] MEDS: INSULIN ASPART PER UNIT CHARGE SC SCH ×4 (09:05→20:51)
[2022-10-13] MEDS: APIXABAN 2.5 MG TAB PO SCH ×2 (09:05→20:35)
[2022-10-13] MEDS: UMECLIDINIUM/VILANTEROL 62.5/25MCG 7 PUFFS/INHALER INH SCH (09:06)
[2022-10-13] MEDS: FUROSEMIDE 40 MG/4 ML VIAL IV SCH ×2 (10:35→20:52)
[2022-10-13] MEDS: ISOSORBIDE MONO EXTENDED REL 30 MG TABCR PO SCH (10:35)
[2022-10-13] MEDS: POLYETHYLENE (MIRALAX) 17 GM PACK PO SCH (10:35)
[2022-10-13] MEDS: ATENOLOL 50 MG TABLET PO SCH (10:35)
--- NOTE | 2022-10-13 11:39 | XRay Report ---
XR chest 2V PA/lateral CLINICAL HISTORY: r/o worsening effusion/new pathology COMPARISON STUDY: Chest radiograph October 08, 2022. Chest CT September 08, 2017. FINDINGS: Left subclavian pacer is in place. Cardiomegaly is again noted. Pulmonary edema has mildly improved since chest radiograph of October 08, 2022. Moderate left and small right pleural effusions per sist with associated bibasilar opacities. Linear right upper lung opacity is again noted. There is no pneumothorax. IMPRESSION: 1. Cardiomegaly with mild interstitial pulmonary edema, slightly improved since prior chest radiograp h. 2. No significant change in moderate left and small right pleural effusions with associated bibasilar opacities which could reflect atelectasis or consolidation. ACT 112: Negative or not required by law. Electronically signed by: Jorgito Oseguera M.D. 10/13/2022 11:37 AM
--- NOTE | 2022-10-13 17:43 | Billing Data ---
Date of Service October 13, 2022 Coding Level of Care Code 05133 SUB INP/OBS CARE
[2022-10-13] MEDS: SIMVASTATIN 20 MG TAB PO SCH (20:35)
[2022-10-13] MEDS: MELATONIN 3 MG TAB PO SCH (20:35)
[2022-10-14 06:47] LABS: Hematocrit (blood only) 31.8 % (37.0-47.0); Hemoglobin 9.7 g/dl (12.0-16.0); Mean Corpuscular Hemoglobin 27.2 pg (25.0-34.0); Mean Corpuscular Hgb Conc 30.5 g/dL (32.0-36.0); Mean Corpuscular Volume 89.3 fL (80.0-100.0); Mean Platelet Volume 10.4 fL (9.4-12.4); Platelet Count 121 K/uL (130-400); RDW Coefficient of Variation 14.7 % (11.5-14.5); Red Blood Count 3.56 M/uL (4.20-5.40); White Blood Count 4.95 K/ul (4.8-10.8)
[2022-10-14] MEDS: ALBUT/IPRATROP 3MG/0.5MG NEB 3 ML VIAL NEB SCH ×4 (07:07→20:01)
[2022-10-14] MEDS: SODIUM CHLOR 7% 4 ML NEB NEB SCH ×2 (07:09→20:02)
[2022-10-14 07:28] LABS: BUN Creatinine Ratio 29.9 (10-20); Creatinine Clr Calc Pharmacy 35.2 ml/min; Est GFR (African American) 42.1 ml/min; Est GFR (Non-African American) 36.3 ml/min; Potassium 4.1 mmol/L (3.5-5.1)
[2022-10-14] MEDS: FLUTICASONE FUROATE 100MCG 14 PUFFS/INHALER INH SCH (08:48)
[2022-10-14] MEDS: UMECLIDINIUM/VILANTEROL 62.5/25MCG 7 PUFFS/INHALER INH SCH (08:48)
[2022-10-14] MEDS: APIXABAN 2.5 MG TAB PO SCH ×2 (08:49→21:06)
[2022-10-14] MEDS: POLYETHYLENE (MIRALAX) 17 GM PACK PO SCH (08:49)
[2022-10-14] MEDS: ISOSORBIDE MONO EXTENDED REL 30 MG TABCR PO SCH (08:49)
[2022-10-14] MEDS: ATENOLOL 50 MG TABLET PO SCH (08:49)
[2022-10-14] MEDS: FUROSEMIDE 40 MG/4 ML VIAL IV SCH ×2 (08:55→21:05)
[2022-10-14] MEDS: LANTUS PER UNIT CHARGE SQ SCH ×2 (08:56→21:06)
[2022-10-14] MEDS: INSULIN ASPART PER UNIT CHARGE SC SCH ×4 (09:02→21:11)
--- NOTE | 2022-10-14 10:19 | Hospitalist Progress Note ---
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 Acute on chronic HFpEF LLE is doing better. Definitely getting more dry. Fluid overload demonstrated in LLE and shortness of breath. Cre continues to stay at baseline (1.7). Need to evaluate diet and plan for what should be arranged for after discharged. * Cardiology following * Neg 6 L. Continue Low Na, fluid restrict 1500ml * Continue Lasix 40mg IV BID. Patient is down ~6L since admission. * Strict I&Os (Booker catheter placed on admission) * Daily weights * Working with CM to find meal options for low sodium. * CM continues to look for rehab/SNF availability. Patient's son is arriving from [place] today, per family the goal is for Cammy to move in with them in [place]. Acute on chronic respiratory failure, COPD with asthma Worsening oxygenation status in setting of HFpEF exacerbation. Improving oxygenation with diuresis. Patient on ICS and LAMA/LABA for obstructive airway disease. Continuing home meds. Added on albuterol and NS nebs as patient was having wheezing. If not improving with diuresis consider steroids given wheezing on exam Baseline oxygen requirement 2-3L. Was up to 5L. Improved. Continue to monitor. CXR 10/13 as there is concern for worsening effusion. Could consider repeat thoracentesis if failing to improve with diuresis. T2DM HbA1C 5.5 in August, no need to repeat * Hold usual home med * Lantus 5 units BID Novolog: --Goal BSG Range: Low 110 mg/dL, High 140 mg/dL --Correction Factor: 45 mg/dL/unit --Carbohydrate ratio = 15 g/unit --BSGs ACHS if eating, q6h if npo A fib Rate controlled at present. Ventricularly paced. * Eliquis 5mg BID * Atenolol 50 QAM Sleeping difficulties Increased anxiety with sons going through medical challenges. Having a hard time falling asleep and staying asleep even with at home CPAP. * Melatonin increased to 6 mg, working better per patient * With patient's age would avoid antihistamines VTE Prophylaxis - Eliquis Diet - Low Na, Low K, heart healthy, T2DM, fluid restrict Disposition - admit to PCU Code status: full (2) Acute on chronic respiratory failure with hypoxemia: (3) COPD with asthma: (4) Hyperkalemia: (5) Diabetes mellitus, type 2: (6) Atrial fibrillation: (7) Sleep difficulties: Admission and Anticipated Discharge Date Admission Date: October 08, 2022 Supervising Physician Co-Signing Physician Notes Resident Physician Supervision Note: I independently interviewed and examined the patient and verified the gamez history and physical, reviewed labs and image studies and agree with resident findings and care plan. Subjective Patient seen and examined at bedside. Cammy states that she slept well last night, slept from 10pm-3am without waking up. She states that her lower legs still have some swelling. Endorses having a bowel movement since starting her Miralax. Denies chest pain. Notes shortness of breath with exertion, currently on 3L NC. Review of Systems Review of Systems: As per above Physical Exam Constitutional: WD/WN, vitals as above Eyes: Anicteric sclerae ENMT: External ears and nose normal. Moist mucous membranes. Respiratory: Normal respiratory effort, no increased work of breathing. Cardiovascular: Rate/Rhythm: regular rate and regular rhythm Heart Sounds: + murmur +2 pitting edema of bilateral lower extremities Skin: no rashes, warm and dry Psychiatric: A+Ox3, euthymic affect Results & Data Results & Data Vital Signs (Past 12 Hours) Vital Signs Temp Pulse Resp BP Pulse Ox O2 Del Method O2 Flow Rate 10/14/22 07:57 Nasal Cannula 3 10/14/22 07:56 95 Nasal Cannula 3 10/14/22 07:49 36.4 C L 67 18 143/68 H 92 Nasal Cannula 3 10/14/22 07:09 61 18 92 Nasal Cannula 3 10/13/22 22:25 36.3 C L 62 20 163/61 H 93 CPAP 5 Resident Activity Tracking Resident Involvement: Resident Care Provided Care Provided: Adult Hospital Medicine
[2022-10-14] MEDS: ACETAMINOPHEN 325 MG TAB PO PRN ×2 (16:44→21:05)
[2022-10-14] MEDS: MELATONIN 3 MG TAB PO SCH (21:06)
[2022-10-14] MEDS: SIMVASTATIN 20 MG TAB PO SCH (21:06)
[2022-10-15] MEDS: ACETAMINOPHEN 325 MG TAB PO PRN ×2 (06:12→21:07)
[2022-10-15 07:13] LABS: Hematocrit (blood only) 29.9 % (37.0-47.0); Hemoglobin 9.2 g/dl (12.0-16.0); Mean Corpuscular Hemoglobin 27.2 pg (25.0-34.0); Mean Corpuscular Hgb Conc 30.8 g/dL (32.0-36.0); Mean Corpuscular Volume 88.5 fL (80.0-100.0); Mean Platelet Volume 10.3 fL (9.4-12.4); Platelet Count 116 K/uL (130-400); RDW Coefficient of Variation 14.8 % (11.5-14.5); Red Blood Count 3.38 M/uL (4.20-5.40); White Blood Count 4.54 K/ul (4.8-10.8)
--- NOTE | 2022-10-15 07:31 | Hospitalist Progress Note ---
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 Acute on chronic HFpEF LLE is doing better. Definitely getting more dry. Fluid overload demonstrated in LLE and shortness of breath. Cre continues to stay at baseline (1.7). Need to evaluate diet and plan for what should be arranged for after discharged. * Cardiology following * Continue Low Na, fluid restrict 1500ml * Continue Lasix 40mg IV BID. Patient is down ~6L since admission. Still notes some pain with continued lower extremity swelling. * Strict I&Os (Booker catheter placed on admission) * Daily weights * Working with CM to find meal options for low sodium. * CM continues to look for rehab/SNF availability. Patient's son is visiting from [place], per family the goal is for Cammy to move in with them in [place]. Acute on chronic respiratory failure, COPD with asthma Worsening oxygenation status in setting of HFpEF exacerbation. Improving oxygenation with diuresis. Patient on ICS and LAMA/LABA for obstructive airway disease. Continuing home meds. Added on albuterol and NS nebs as patient was having wheezing. If not improving with diuresis consider steroids given wheezing on exam Baseline oxygen requirement 2-3L. Was up to 5L. Improved. Continue to monitor. CXR 10/13 as there was concern for worsening effusion, however no significant change in imaging. Could consider repeat thoracentesis if failing to improve with diuresis. T2DM HbA1C 5.5 in August, no need to repeat * Hold usual home med * Lantus 5 units BID Novolog: --Goal BSG Range: Low 110 mg/dL, High 140 mg/dL --Correction Factor: 45 mg/dL/unit --Carbohydrate ratio = 15 g/unit --BSGs ACHS if eating, q6h if npo A fib Rate controlled at present. Ventricularly paced. * Eliquis 5mg BID * Atenolol 50 QAM Constipation -Miralax 17g daily -Added Senakot today Sleeping difficulties Increased anxiety with sons going through medical challenges. Having a hard time falling asleep and staying asleep even with at home CPAP. * Melatonin increased to 6 mg, working better per patient * With patient's age would avoid antihistamines VTE Prophylaxis - Eliquis Diet - Low Na, Low K, heart healthy, T2DM, fluid restrict Disposition - Med/surg Code status: full (2) Acute on chronic respiratory failure with hypoxemia: (3) COPD with asthma: (4) Hyperkalemia: (5) Diabetes mellitus, type 2: (6) Atrial fibrillation: (7) Sleep difficulties: Admission and Anticipated Discharge Date Admission Date: October 08, 2022 Supervising Physician Co-Signing Physician Notes Resident Physician Supervision Note: I independently interviewed and examined the patient and verified the gamez history and physical, reviewed labs and image studies and agree with resident findings and care plan. Subjective Patient seen and examined at bedside. Patient states she is still constipated- had a small, hard bowel movement yesterday but still feels constipated. Some pain with lower leg swelling overnight. Review of Systems Review of Systems: As per above Physical Exam Constitutional: WD/WN, vitals as above Eyes: + anicteric sclerae ENMT: External ears and nose normal. Moist mucous membranes. Respiratory: no respiratory distress Auscultation: + crackles and + wheezes Cardiovascular: Rate/Rhythm: regular rate and regular rhythm Heart Sounds: + murmur +2 pitting edema of bilateral lower extremities Gastrointestinal (Abdomen): Abdomen nondistended, +bowel sounds Skin: no rashes, warm and dry Psychiatric: A+Ox3, euthymic affect Results & Data Results & Data Vital Signs (Past 12 Hours) Vital Signs Temp Pulse Resp BP Pulse Ox O2 Del Method O2 Flow Rate 10/14/22 19:45 Nasal Cannula 3 10/14/22 21:00 36.8 C 59 L 18 154/64 H 96 Nasal Cannula 10/14/22 20:03 60 18 90 Nasal Cannula 3 Resident Activity Tracking Resident Involvement: Resident Care Provided Care Provided: Adult Hospital Medicine
[2022-10-15] MEDS: ALBUT/IPRATROP 3MG/0.5MG NEB 3 ML VIAL NEB SCH ×4 (07:40→19:55)
[2022-10-15] MEDS: SODIUM CHLOR 7% 4 ML NEB NEB SCH ×2 (07:40→19:55)
[2022-10-15 07:45] LABS: BUN Creatinine Ratio 34.4 (10-20); Calcium 8.9 mg/dl (8.6-10.3); Creatinine Clr Calc Pharmacy 37.7 ml/min; Est GFR (African American) 45.7 ml/min; Est GFR (Non-African American) 39.5 ml/min; Potassium 4.1 mmol/L (3.5-5.1)
[2022-10-15] MEDS: ATENOLOL 50 MG TABLET PO SCH (08:42)
[2022-10-15] MEDS: ISOSORBIDE MONO EXTENDED REL 30 MG TABCR PO SCH (08:42)
[2022-10-15] MEDS: APIXABAN 2.5 MG TAB PO SCH ×2 (08:43→21:07)
[2022-10-15] MEDS: FLUTICASONE FUROATE 100MCG 14 PUFFS/INHALER INH SCH (08:44)
[2022-10-15] MEDS: UMECLIDINIUM/VILANTEROL 62.5/25MCG 7 PUFFS/INHALER INH SCH (08:44)
[2022-10-15] MEDS: LANTUS PER UNIT CHARGE SQ SCH ×2 (08:51→21:07)
[2022-10-15] MEDS: INSULIN ASPART PER UNIT CHARGE SC SCH ×4 (08:51→20:57)
[2022-10-15] MEDS: FUROSEMIDE 40 MG/4 ML VIAL IV SCH ×2 (08:55→21:07)
[2022-10-15] MEDS: POLYETHYLENE (MIRALAX) 17 GM PACK PO SCH (08:55)
[2022-10-15] MEDS: DOCUSATE SODIUM/SENNA 50/8.6MG TAB PO SCH (12:57)
[2022-10-15] MEDS: MELATONIN 3 MG TAB PO SCH (21:06)
[2022-10-15] MEDS: SIMVASTATIN 20 MG TAB PO SCH (21:07)
[2022-10-16 06:30] LABS: Hematocrit (blood only) 29.9 % (37.0-47.0); Hemoglobin 9.4 g/dl (12.0-16.0); Mean Corpuscular Hemoglobin 27.4 pg (25.0-34.0); Mean Corpuscular Hgb Conc 31.4 g/dL (32.0-36.0); Mean Corpuscular Volume 87.2 fL (80.0-100.0); Mean Platelet Volume 10.8 fL (9.4-12.4); Platelet Count 115 K/uL (130-400); RDW Coefficient of Variation 15.1 % (11.5-14.5); RDW Standard Deviation 48.4 fL (36.4-46.3); Red Blood Count 3.43 M/uL (4.20-5.40); White Blood Count 4.41 K/ul (4.8-10.8)
[2022-10-16 06:49] LABS: BUN Creatinine Ratio 29.9 (10-20); Calcium 8.9 mg/dl (8.6-10.3); Creatinine Clr Calc Pharmacy 32.1 ml/min; Est GFR (African American) 37.6 ml/min; Est GFR (Non-African American) 32.4 ml/min; Potassium 4.2 mmol/L (3.5-5.1)
[2022-10-16] MEDS: SODIUM CHLOR 7% 4 ML NEB NEB SCH ×2 (07:09→19:33)
[2022-10-16] MEDS: ALBUT/IPRATROP 3MG/0.5MG NEB 3 ML VIAL NEB SCH ×4 (07:09→19:33)
[2022-10-16] MEDS ORDERED: POLYETHYLENE (MIRALAX) 17 GM PACK PO ONE (09:04)
[2022-10-16] MEDS: APIXABAN 2.5 MG TAB PO SCH ×2 (09:11→20:04)
[2022-10-16] MEDS: DOCUSATE SODIUM/SENNA 50/8.6MG TAB PO SCH (09:11)
[2022-10-16] MEDS: ISOSORBIDE MONO EXTENDED REL 30 MG TABCR PO SCH (09:11)
[2022-10-16] MEDS: FLUTICASONE FUROATE 100MCG 14 PUFFS/INHALER INH SCH (09:11)
[2022-10-16] MEDS: UMECLIDINIUM/VILANTEROL 62.5/25MCG 7 PUFFS/INHALER INH SCH (09:11)
[2022-10-16] MEDS: ATENOLOL 50 MG TABLET PO SCH (09:12)
[2022-10-16] MEDS: FUROSEMIDE 40 MG/4 ML VIAL IV SCH ×2 (09:25→20:09)
[2022-10-16] MEDS: INSULIN ASPART PER UNIT CHARGE SC SCH ×4 (09:30→20:03)
[2022-10-16] MEDS: LANTUS PER UNIT CHARGE SQ SCH ×3 (09:51→20:10)
[2022-10-16] MEDS: POLYETHYLENE (MIRALAX) 17 GM PACK PO SCH (09:53)
--- NOTE | 2022-10-16 13:18 | Hospitalist Progress Note ---
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 Acute on chronic HFpEF LLE is doing better. Definitely getting more dry. Fluid overload demonstrated in LLE and shortness of breath. Cre has started trending up, moving from 1.2 to 1.47. May need to reconsider thoracentesis with persistent shortness of breath and increases in Cre, there is also the potential of aspiration with clinical increase in wheezing. * CXR to reassess pleural effusion. * Cardiology following * Continue Low Na, fluid restrict 1500ml * Continue Lasix 40mg IV BID. Patient is down ~6L since admission. * Strict I&Os (Booker catheter placed on admission) * Daily weights * Working with CM to find meal options for low sodium. * Continue to reiterate fluid restriction * CM continues to look for rehab/SNF availability. Patient's son is visiting from [place], per family the goal is for Cammy to move in with them in [place]. Acute on chronic respiratory failure, COPD with asthma Worsening oxygenation status in setting of HFpEF exacerbation. Improving oxygenation with diuresis. * Patient on ICS and LAMA/LABA for obstructive airway disease. * Continuing home meds. Added on albuterol and NS nebs as patient was having wheezing. If not improving with diuresis consider steroids given wheezing on exam * Baseline oxygen requirement 2-3L. Was up to 5L. Improved. Continue to monitor. * CXR 10/13 as there was concern for worsening effusion, however no significant change in imaging. T2DM HbA1C 5.5 in August, no need to repeat * Hold usual home med * Lantus 5 units BID Novolog: --Goal BSG Range: Low 110 mg/dL, High 140 mg/dL --Correction Factor: 45 mg/dL/unit --Carbohydrate ratio = 15 g/unit --BSGs ACHS if eating, q6h if npo A fib Rate controlled at present. Ventricularly paced. * Eliquis 5mg BID * Atenolol 50 QAM Constipation Continued to have constipation today. * Miralax 17g daily doubled dose this morning (10/16) to encourage a BM. * Added Senakot (10/15) Leg pain --likely neuropathic from diabetes worsened due to leg edema chronic and acute worsening from fluid overload --pain improving but still notes some pain. follow. Sleeping difficulties Increased anxiety with sons going through medical challenges. Having a hard time falling asleep and staying asleep even with at home CPAP. * Melatonin increased to 6 mg, working better per patient * With patient's age would avoid antihistamines VTE Prophylaxis - Eliquis Diet - Low Na, Low K, heart healthy, T2DM, fluid restrict Disposition - Med/surg Code status: full Admission and Anticipated Discharge Date Admission Date: October 08, 2022 Supervising Physician Co-Signing Physician Notes Resident Physician Supervision Note: I independently interviewed and examined the patient and verified the gamez history and physical, reviewed labs and image studies and agree with resident findings and care plan. Subjective CHAO. Today, she is feeling better but not completely well. She does endorse leg pain and shortness of breath when she moves from the chair into the bed of back again. She also endorses constipation. Review of Systems Constitutional: Denied fever, night sweats, fatigue, weakness, dizziness Respiratory: Denied cough Endorses shortness of breath. Cardiovascular: Additional Comments: Denied chest pain, palpitations Gastrointestinal: Denied nausea, vomiting, diarrhea, abdominal pain. Musculoskeletal: Endorses leg pain Neurologic: Denied weaknesss, numbness, or tingling. Physical Exam Constitutional: Alert and oriented x3 in hopsital bed Neck: Respiratory: Shallow breathing, wheezing, Cardiovascular: Normal rate and regular rhythmn. S1 S2, no r/m/g. Radial pulses equal b/l. Gastrointestinal (Abdomen): Nondistended, nontender, normoactive bowel sounds. Skin: Warm dry, no apparent rashed. Psychiatric: Appropriate mood and affect. Lymphatic: No lymphadenopathy in the neck and cervical region. Results & Data Results & Data Vital Signs (Past 12 Hours) Vital Signs Temp Pulse Resp BP Pulse Ox O2 Del Method O2 Flow Rate 10/16/22 08:30 Nasal Cannula 2 10/16/22 10:42 79 18 95 Nasal Cannula 10/16/22 07:36 36.4 C L 65 14 140/51 L 94 Nasal Cannula 3 10/16/22 07:12 66 18 97 Nasal Cannula 2
[2022-10-16] MEDS: ACETAMINOPHEN 325 MG TAB PO PRN (17:02)
[2022-10-16] MEDS: SIMVASTATIN 20 MG TAB PO SCH (20:04)
[2022-10-16] MEDS: MELATONIN 3 MG TAB PO SCH (20:09)
--- NOTE | 2022-10-16 22:07 | XRay Report ---
XR chest 1V portable CLINICAL HISTORY: CHF, COPD, wheezing TECHNIQUE: Single frontal radiograph of the chest was obtained. Comparison: Comparison is made to chest radiograph 10/13/2022 FINDINGS: Single lead pacemaker is seen. Cardiomegaly is noted. There is prominence and cephalization of the va sculature with Tessa B lines seen. Small bilateral pleural effusions are seen, left greater than rig ht. IMPRESSION: Cardiomegaly and moderate pulmonary edema. Small bilateral pleural effusions. ACT 112: Negative or not required by law. Electronically signed by: Dustin Danielson M.D. 10/16/2022 10:05 PM
[2022-10-17 06:22] LABS: Hematocrit (blood only) 30.8 % (37.0-47.0); Hemoglobin 9.4 g/dl (12.0-16.0); Mean Corpuscular Hemoglobin 26.9 pg (25.0-34.0); Mean Corpuscular Hgb Conc 30.5 g/dL (32.0-36.0); Mean Corpuscular Volume 88.3 fL (80.0-100.0); Mean Platelet Volume 10.3 fL (9.4-12.4); Platelet Count 119 K/uL (130-400); RDW Standard Deviation 48.5 fL (36.4-46.3); Red Blood Count 3.49 M/uL (4.20-5.40); White Blood Count 4.75 K/ul (4.8-10.8)
[2022-10-17 06:47] LABS: BUN Creatinine Ratio 30.3 (10-20); Calcium 9.1 mg/dl (8.6-10.3); Creatinine Clr Calc Pharmacy 32.5 ml/min; Est GFR (African American) 38.2 ml/min; Potassium 4.1 mmol/L (3.5-5.1)
[2022-10-17] MEDS: ALBUT/IPRATROP 3MG/0.5MG NEB 3 ML VIAL NEB SCH ×4 (07:19→19:37)
[2022-10-17] MEDS: SODIUM CHLOR 7% 4 ML NEB NEB SCH ×2 (07:21→19:37)
[2022-10-17] MEDS: INSULIN ASPART PER UNIT CHARGE SC SCH ×4 (08:50→19:52)
[2022-10-17] MEDS: ATENOLOL 50 MG TABLET PO SCH (08:51)
[2022-10-17] MEDS: ISOSORBIDE MONO EXTENDED REL 30 MG TABCR PO SCH (08:51)
[2022-10-17] MEDS: APIXABAN 2.5 MG TAB PO SCH ×2 (08:51→19:51)
[2022-10-17] MEDS: FLUTICASONE FUROATE 100MCG 14 PUFFS/INHALER INH SCH (08:52)
[2022-10-17] MEDS: DOCUSATE SODIUM/SENNA 50/8.6MG TAB PO SCH (08:52)
[2022-10-17] MEDS: UMECLIDINIUM/VILANTEROL 62.5/25MCG 7 PUFFS/INHALER INH SCH (08:52)
[2022-10-17] MEDS: LANTUS PER UNIT CHARGE SQ SCH ×2 (08:58→19:52)
--- NOTE | 2022-10-17 10:21 | Hospitalist Progress Note ---
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 Acute on chronic HFpEF LLE is doing better. Definitely getting more dry. Fluid overload demonstrated in LLE and shortness of breath. Cre has started trending up, moving from 1.2 to 1.45. May need to reconsider thoracentesis with persistent shortness of breath and increases in Cre, there is also the potential of aspiration with clinical increase in wheezing. * CXR 10/13 and 10/16, no significant change in imaging regarding small bilateral pleural effusions. * Cardiology following * Continue Low Na, fluid restrict 1500ml * Continue Lasix 40mg IV BID. Patient is down ~6L since admission. Will transition to PO Lasix on discharge. * Strict I&Os (Booker catheter placed on admission) * Daily weights * Working with CM to find meal options for low sodium. * Continue to reiterate fluid restriction Acute on chronic respiratory failure, COPD with asthma Worsening oxygenation status in setting of HFpEF exacerbation. Improving oxygenation with diuresis. * Patient on ICS and LAMA/LABA for obstructive airway disease. * Added on albuterol and NS nebs as patient was having wheezing. * Baseline oxygen requirement 2-3L. Improved. Continue to monitor. T2DM HbA1C 5.5 in August, no need to repeat * Hold usual home med * Lantus 5 units BID Novolog: --Goal BSG Range: Low 110 mg/dL, High 140 mg/dL --Correction Factor: 45 mg/dL/unit --Carbohydrate ratio = 15 g/unit --BSGs ACHS if eating, q6h if npo A fib Rate controlled at present. Ventricularly paced. * Eliquis 5mg BID * Atenolol 50 QAM Constipation Continued to have constipation today. * resolved with aggressive bowel regimen Leg pain --likely neuropathic from diabetes worsened due to leg edema chronic and acute worsening from fluid overload --pain improving Sleeping difficulties Increased anxiety with sons going through medical challenges. Having a hard time falling asleep and staying asleep even with at home CPAP. * Melatonin increased to 6 mg, working better per patient VTE Prophylaxis - Eliquis Diet - Low Na, Low K, heart healthy, T2DM, fluid restrict Disposition - Med/surg; Patient's son is visiting from [place], per family the goal is for Cammy to move in with them in [place]. Anticipate discharge to [facility] tomorrow. Code status: full Admission and Anticipated Discharge Date Admission Date: October 08, 2022 Supervising Physician Co-Signing Physician Notes Resident Physician Supervision Note: I independently interviewed and examined the patient and verified the gamez history and physical, reviewed labs and image studies and agree with resident findings and care plan. Subjective Patient seen and examined at bedside. States that she slep well last night, was able to tolerate the BiPAP most of the night- feels that her breathing is slightly better this morning. She notes some swelling of her left upper extremity, denies any pain. Notes she had two bowel movements today, is feeling more comfortable now. Review of Systems Review of Systems: As per above Physical Exam Constitutional: WD/WN, vitals as above Eyes: + anicteric sclerae Respiratory: no respiratory distress Auscultation: + crackles and + wheezes Cardiovascular: Rate/Rhythm: regular rate and regular rhythm Heart Sounds: + murmur +2 pitting edema of bilateral lower extremities Skin: no rashes, warm and dry Psychiatric: A+Ox3, euthymic affect Results & Data Results & Data Vital Signs (Past 12 Hours) Vital Signs Temp Pulse Resp BP Pulse Ox O2 Del Method O2 Flow Rate 10/17/22 07:37 36.5 C 66 16 153/72 H 96 Nasal Cannula 2 10/17/22 07:20 64 18 94 Nasal Cannula 2 Resident Activity Tracking Resident Involvement: Resident Care Provided Care Provided: Adult Hospital Medicine
[2022-10-17] MEDS: FUROSEMIDE 40 MG/4 ML VIAL IV SCH ×2 (10:38→19:51)
[2022-10-17] MEDS: SIMVASTATIN 20 MG TAB PO SCH (19:51)
[2022-10-17] MEDS: MELATONIN 3 MG TAB PO SCH (19:53)
[2022-10-18] MEDS: oxyCODONE HCL IR 5 MG TAB (IMMEDIATE RELEASE) PO PRN (05:29)
[2022-10-18] MEDS: ACETAMINOPHEN 325 MG TAB PO PRN (05:48)
[2022-10-18 06:36] LABS: Hematocrit (blood only) 30.1 % (37.0-47.0); Hemoglobin 9.3 g/dl (12.0-16.0); Mean Corpuscular Hemoglobin 27.2 pg (25.0-34.0); Mean Corpuscular Hgb Conc 30.9 g/dL (32.0-36.0); Mean Platelet Volume 10.6 fL (9.4-12.4); Platelet Count 121 K/uL (130-400); RDW Coefficient of Variation 15.2 % (11.5-14.5); RDW Standard Deviation 48.7 fL (36.4-46.3); Red Blood Count 3.42 M/uL (4.20-5.40); White Blood Count 4.66 K/ul (4.8-10.8)
[2022-10-18 07:03] LABS: BUN Creatinine Ratio 31.9 (10-20); Creatinine Clr Calc Pharmacy 34.9 ml/min; Est GFR (African American) 41.7 ml/min; Potassium 4.1 mmol/L (3.5-5.1)
[2022-10-18] MEDS: SODIUM CHLOR 7% 4 ML NEB NEB SCH ×2 (07:12→19:23)
[2022-10-18] MEDS: ALBUT/IPRATROP 3MG/0.5MG NEB 3 ML VIAL NEB SCH ×4 (07:12→19:23)
[2022-10-18] MEDS: ATENOLOL 50 MG TABLET PO SCH (08:05)
[2022-10-18] MEDS: UMECLIDINIUM/VILANTEROL 62.5/25MCG 7 PUFFS/INHALER INH SCH (08:06)
[2022-10-18] MEDS: APIXABAN 2.5 MG TAB PO SCH ×2 (08:06→20:28)
[2022-10-18] MEDS: FLUTICASONE FUROATE 100MCG 14 PUFFS/INHALER INH SCH (08:07)
[2022-10-18] MEDS: ISOSORBIDE MONO EXTENDED REL 30 MG TABCR PO SCH (08:07)
[2022-10-18] MEDS: FUROSEMIDE 40 MG/4 ML VIAL IV SCH (08:20)
[2022-10-18] MEDS: INSULIN ASPART PER UNIT CHARGE SC SCH ×4 (08:50→20:29)
[2022-10-18] MEDS: LANTUS PER UNIT CHARGE SQ SCH ×2 (08:50→20:29)
--- NOTE | 2022-10-18 10:14 | Hospitalist Progress Note ---
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 Acute on chronic HFpEF LLE is doing better. Definitely getting more dry. Fluid overload demonstrated in LLE and shortness of breath. Cre has started trending up, moving from 1.2 to 1.45. May need to reconsider thoracentesis with persistent shortness of breath and increases in Cre, there is also the potential of aspiration with clinical increase in wheezing. * CXR 10/13 and 10/16, no significant change in imaging regarding small bilateral pleural effusions. * Low Na diet, fluid restrict 1500ml * Continue Lasix 40mg IV BID. Patient is down ~6L since admission. -Patient received dose of Metolazone this afternoon. Reached out to pt's security rover, Dr. Marcos, for further recommendations. * Booker catheter placed on admission * Standing weight today is 94.2kg Acute on chronic respiratory failure, COPD with asthma Worsening oxygenation status in setting of HFpEF exacerbation. Improving oxygenation with diuresis. * Patient on ICS and LAMA/LABA for obstructive airway disease. * Added on albuterol and NS nebs as patient was having wheezing. * Baseline oxygen requirement 2-3L. Improved. Continue to monitor. T2DM HbA1C 5.5 in August, no need to repeat * Hold usual home med * Lantus 5 units BID Novolog: --Goal BSG Range: Low 110 mg/dL, High 140 mg/dL --Correction Factor: 45 mg/dL/unit --Carbohydrate ratio = 15 g/unit --BSGs ACHS if eating, q6h if npo A fib Rate controlled at present. Ventricularly paced. * Eliquis 5mg BID * Atenolol 50 QAM Constipation Symptoms now resolved. * resolved with aggressive bowel regimen Leg pain --likely neuropathic from diabetes worsened due to leg edema chronic and acute worsening from fluid overload --pain improving Sleeping difficulties Increased anxiety with sons going through medical challenges. Having a hard time falling asleep and staying asleep even with at home CPAP. * Melatonin increased to 6 mg, working better per patient VTE Prophylaxis - Eliquis Diet - Low Na, Low K, heart healthy, T2DM, fluid restrict Disposition - Med/surg; * Working with CM to find meal options for low sodium. Code status: full Admission and Anticipated Discharge Date Admission Date: October 08, 2022 Supervising Physician Co-Signing Physician Notes Resident Physician Supervision Note: I independently interviewed and examined the patient and verified the gamez history and physical, reviewed labs and image studies and agree with resident findings and care plan. Subjective Patient seen and examined at bedside. Her son is at bedside this morning and expresses concerns about her being discharge to [facility] today. He feels that her legs are still very swollen and does not feel comfortable with her leaving today. The patient feels that her breathing was a bit worse yesterday, thinks it may have been from the smoke/air quality. Review of Systems Review of Systems: As per above Physical Exam Constitutional: WD/WN, vitals as above Eyes: + anicteric sclerae Respiratory: no respiratory distress Auscultation: + crackles Cardiovascular: Rate/Rhythm: regular rate and regular rhythm Heart Sounds: + murmur +2 pitting edema of bilateral lower extremities Skin: no rashes, warm and dry Psychiatric: A+Ox3, euthymic affect Results & Data Results & Data Vital Signs (Past 12 Hours) Vital Signs Temp Pulse Resp BP BP Pulse Ox O2 Del Method 10/18/22 08:04 62 148/54 H 10/18/22 07:41 36.8 C 73 20 137/77 95 Room Air 10/18/22 07:05 Nasal Cannula 10/18/22 07:14 61 18 96 Nasal Cannula O2 Flow Rate 10/18/22 08:04 10/18/22 07:41 10/18/22 07:05 2 10/18/22 07:14 2 Resident Activity Tracking Resident Involvement: Resident Care Provided Care Provided: Adult Hospital Medicine
[2022-10-18] MEDS ORDERED: metOLazone 5 MG TABLET PO ONE (12:30)
--- NOTE | 2022-10-18 15:04 | Cardiology Progress Note ---
Date of Service October 18, 2022 Assessment & Plan (1) Acute on chronic heart failure with preserved ejection fraction: Plan: (2) CAD (coronary artery disease): (3) Atrial fibrillation: (4) Pacemaker: (5) Aortic stenosis: Plan 1. Fluid retention: It seems likely that there are a number of contributing factors to her edema including kidney disease (which may be cardiorenal), low albumin, positional (she seems to keep her legs down a lot of the time) as well as possibly needing higher diuretic doses. I would recommend taking all of the conservative measures which would include support stockings (or Arun bandages), keeping her feet elevated, nutritional supplements to help her albumin and adjusting her diuretics. At this point I do not think it would be unreasonable to consider a Lasix infusion, at least for a day or 2 to make sure that we can eliminate fluid. Another option would be to change to Bumex but since she has a catheter I think a Lasix infusion is probably better. 2. Coronary disease: This appears to be clinically stable with no symptoms and no evidence of infarction. 3. Atrial fibrillation: Permanent, possibly contributing to fluid retention 4. Pacemaker: Clinically working well, not evaluated this admission but was done recently and should not have anything to do with her fluid retention except that her QRS is somewhat wide but she does not really qualify for biventricular pacing. 5. Aortic stenosis: Probably not directly related to her fluid retention, probably contributes to diastolic dysfunction. Admission and Anticipated Discharge Date Admission Date: October 08, 2022 Subjective Chart reviewed and patient examined, discussion with attending and family. In brief she appears to have diastolic heart failure as well as kidney disease. According to her intake and output her net balance has been negative over the last 5 days, according to her weights there is been no change in weight until today when it actually went up, but no loss in weight. On exam she continues to have edema and although I have not seen her before it sounds as though her edema has not significantly improved over the last week. Her creatinine has decreased if anything over the last week, although her creatinine was normal last in August 29, 2022. Her albumin is low, only 3.1 on October 09, 2022. However for several years her albumin has tended to be low, although not always. Of note I had her weighed when I saw her this afternoon and she has gained 1.5 kg since yesterday despite attempts at diuresis and fluid restriction. Her potassium and sodium are acceptable.She is feeling well in general, she does not have trouble breathing but does note increasing leg swelling. Her shortness of breath does not seem to be an issue currently. She has no other cardiovascular symptoms. Results & Data Vital Signs (Past 12 Hours) Vital Signs Temp Pulse Resp BP BP Pulse Ox O2 Del Method 10/18/22 14:46 77 18 95 Nasal Cannula 10/18/22 10:39 62 18 94 Nasal Cannula 10/18/22 08:04 62 148/54 H 10/18/22 07:41 36.8 C 73 20 137/77 95 Room Air 10/18/22 07:05 Nasal Cannula 10/18/22 07:14 61 18 96 Nasal Cannula O2 Flow Rate 10/18/22 14:46 2 10/18/22 10:39 2 10/18/22 08:04 10/18/22 07:41 10/18/22 07:05 2 10/18/22 07:14 2 PG Care Time/CCT Total # of Minutes Spent Total Time Spent with Patient: Total time spent is greater than 50% in coordination of care (as documented) at patient's floor/unit and/or counseling patient: Coding Diagnoses Acute on chronic heart failure with preserved ejection fraction I50.33 CAD (coronary artery disease) I25.10 Atrial fibrillation I48.91 Pacemaker Z95.0 Aortic stenosis I35.0
[2022-10-18] MEDS: FUROSEMIDE 100 MG in DEXTROSE 5% 90 ML IV SCH (16:06)
[2022-10-18] MEDS: MELATONIN 3 MG TAB PO SCH (20:29)
[2022-10-18] MEDS: SIMVASTATIN 20 MG TAB PO SCH (20:29)
[2022-10-19] MEDS: FUROSEMIDE 100 MG in DEXTROSE 5% 90 ML IV SCH ×3 (01:21→21:28)
[2022-10-19 06:40] LABS: Hematocrit (blood only) 30.3 % (37.0-47.0); Hemoglobin 9.3 g/dl (12.0-16.0); Mean Corpuscular Hemoglobin 26.7 pg (25.0-34.0); Mean Corpuscular Hgb Conc 30.7 g/dL (32.0-36.0); Mean Corpuscular Volume 87.1 fL (80.0-100.0); Mean Platelet Volume 10.7 fL (9.4-12.4); Platelet Count 135 K/uL (130-400); RDW Coefficient of Variation 15.3 % (11.5-14.5); RDW Standard Deviation 49.1 fL (36.4-46.3); Red Blood Count 3.48 M/uL (4.20-5.40); White Blood Count 5.67 K/ul (4.8-10.8)
[2022-10-19 07:02] LABS: BUN Creatinine Ratio 29.7 (10-20); Calcium 9.1 mg/dl (8.6-10.3); Creatinine Clr Calc Pharmacy 32.4 ml/min; Est GFR (African American) 38.2 ml/min; Potassium 3.8 mmol/L (3.5-5.1)
[2022-10-19] MEDS: SODIUM CHLOR 7% 4 ML NEB NEB SCH ×2 (07:09→19:02)
[2022-10-19] MEDS: ALBUT/IPRATROP 3MG/0.5MG NEB 3 ML VIAL NEB SCH ×4 (07:09→19:02)
--- NOTE | 2022-10-19 07:16 | Hospitalist Progress Note ---
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 Acute on chronic HFpEF Breathing improved. LE edema improving. * Low Na diet, fluid restrict 1500ml * Per cardio -Started on Lasix drip 10/18 with expected diuresis. Now negative ~8.5L since admission. Cr bumped slightly from 1.35 to 1.45 today, still near baseline. -s/p one dose metolazone 5mgs on 10/18 * Booker catheter in place for I and O monitoring. * Standing weight today is 94.2kg Acute on chronic respiratory failure, COPD with asthma Worsening oxygenation status in setting of HFpEF exacerbation. Improving oxygenation with diuresis. * Continue home ICS and LAMA/LABA for obstructive airway disease. * Added on albuterol and NS nebs as patient was having wheezing. * Baseline oxygen requirement 2-3L. Improved. Continue to monitor. A fib Rate controlled at present. Ventricularly paced. * Eliquis 5mg BID * Atenolol 50 QAM T2DM HbA1C 5.5 in August, no need to repeat * Hold usual home med * Lantus 5 units BID Novolog: -Goal BSG Range: Low 110 mg/dL, High 140 mg/dL -Correction Factor: 45 mg/dL/unit -Carbohydrate ratio = 15 g/unit -BSGs ACHS if eating, q6h if npo Leg Pain -Likely neuropathic from diabetes worsened due to leg edema chronic and acute worsening from fluid overload -Pain improving Sleeping Difficulties Increased anxiety with sons going through medical challenges. Having a hard time falling asleep and staying asleep even with at home CPAP. * Melatonin increased to 6 mg, working better per patient VTE Prophylaxis - Eliquis Diet - Low Na, Low K, heart healthy, T2DM, fluid restrict Disposition - Med/surg; * Working with CM to find meal options for low sodium. Code status: Full Admission and Anticipated Discharge Date Admission Date: October 08, 2022 Supervising Physician Co-Signing Physician Notes Resident Physician Supervision Note: I independently interviewed and examined the patient and verified the gamez history and physical, reviewed labs and image studies and agree with resident findings and care plan. Subjective Patient seen and examined at bedside. No acute events overnight. Her son is at bedside this morning, they both note that her leg swelling seems improved today after starting the Lasix drip. Patient notes that she slept well and has not had as much pain in her legs since the swelling has decreased. Denies chest pain. Review of Systems Review of Systems: As per above Physical Exam Constitutional: WD/WN, vitals as above Eyes: + anicteric sclerae Respiratory: no respiratory distress Auscultation: + crackles and + wheezes Cardiovascular: Rate/Rhythm: regular rate and regular rhythm Heart Sounds: + murmur +1 lower extremity edema bilaterally, improved. Gastrointestinal (Abdomen): Abdomen soft, nondistended. Skin: no rashes, warm and dry Psychiatric: A+Ox3, euthymic affect Results & Data Results & Data Vital Signs (Past 12 Hours) Vital Signs Temp Pulse Resp BP Pulse Ox O2 Del Method O2 Flow Rate 10/19/22 07:12 64 20 94 Nasal Cannula 2 10/18/22 20:12 36.5 C 67 18 149/66 H 92 Nasal Cannula 3 10/18/22 19:57 Nasal Cannula 3 10/18/22 19:23 62 17 96 Nasal Cannula 2 Resident Activity Tracking Resident Involvement: Resident Care Provided Care Provided: Adult Hospital Medicine
[2022-10-19] MEDS: FLUTICASONE FUROATE 100MCG 14 PUFFS/INHALER INH SCH (08:22)
[2022-10-19] MEDS: UMECLIDINIUM/VILANTEROL 62.5/25MCG 7 PUFFS/INHALER INH SCH (08:22)
[2022-10-19] MEDS: APIXABAN 2.5 MG TAB PO SCH ×2 (08:23→20:48)
[2022-10-19] MEDS: ISOSORBIDE MONO EXTENDED REL 30 MG TABCR PO SCH (08:23)
[2022-10-19] MEDS: ATENOLOL 50 MG TABLET PO SCH (08:23)
[2022-10-19] MEDS: INSULIN ASPART PER UNIT CHARGE SC SCH ×4 (08:32→20:50)
[2022-10-19] MEDS: LANTUS PER UNIT CHARGE SQ SCH ×2 (08:33→20:54)
--- NOTE | 2022-10-19 16:36 | Cardiology Progress Note ---
Date of Service October 19, 2022 Assessment & Plan (1) Acute on chronic heart failure with preserved ejection fraction: (2) Aortic stenosis: (3) Atrial fibrillation: (4) Pacemaker: (5) Mitral regurgitation: (6) CAD (coronary artery disease): Plan ASSESSMENT/PLAN: 1. Acute on chronic heart failure with preserved EF: She is significantly hypervolemic. Diuresing well on Lasix drip. Strict I's and O's. Daily weights. Low-sodium diet, less than 2000 mg daily. Consider SGLT2 inhibitor in the future if no contraindication. 2. Aortic stenosis: Some parameters are severe on echo while others more moderate. Monitor closely to determine if/when aortic valve replacement would be appropriate. 3. Mitral and tricuspid regurgitation: Continue to monitor with surveillance echo. Described as moderate in August 2022. 4. CAD: Prior [place] in 1992. No angina. Risk factor modification. LDL excellent when last evaluated. 5. Atrial fibrillation: Described as permanent. Has pacemaker in place. Continue anticoagulation for stroke risk reduction. Baseline creatinine is typically less than 1.5 however she was transiently above 1.5. Currently, she has been less than 1.5 for the past several days. If she remains less than 1.5, would recommend increasing Eliquis to 5 mg twice daily. 6. Pacemaker: Followed by Dr. Marcos. 7. Disposition: Cardiology will continue to follow. Dr. Marcos to resume her cardiology care on 10/21/2022. Recommend follow-up in the heart failure program. She has been hospitalized multiple times, with the most recent 2 hospitalizations with heart failure. Primary hospital team, Dr. Allen, notified of recommendations. Admission and Anticipated Discharge Date Admission Date: October 08, 2022 Subjective She was seen this afternoon. She states that orthopnea may have slightly improved. Shortness of breath in general, specifically dyspnea on exertion, has not significantly improved. She believes that her edema has improved for the first time today. She denies chest pain. She has tolerated Lasix drip as recommended by Dr. Dallas dent on 10/18/2022. She was alone in her hospital room. Physical Exam Physical Exam: Gen.: No acute distress. Alert and oriented. HEENT: Anicteric sclera. Neck: JVD to the mandible sitting upright. Cardiac: PMI was nondisplaced. No ventricular heave. Regular. Normal S1-S2. 2/6 mid peaking systolic ejection murmur best heard at the right upper sternal border. Pulmonary: Decreased breath sounds bilaterally, but otherwise clear to auscultation bilaterally without wheezes, rales, or rhonchi. Abdomen: Soft, nontender, nondistended, with normoactive bowel sounds. No bruits noted. 1+ lower abdominal edema. Extremities: 1+ radial pulses bilaterally. 4+ bilateral lower extremity edema to the knees. 2+ edema to the hips. No cyanosis. Psychiatric: Affect appears appropriate. Results & Data Vital Signs (Past 12 Hours) Vital Signs Temp Pulse Resp BP Pulse Ox O2 Del Method O2 Flow Rate 10/19/22 15:05 36.5 C 60 60 H 147/70 H 100 Nasal Cannula 2 10/19/22 15:07 87 20 100 Nasal Cannula 3 10/19/22 11:27 85 18 99 Nasal Cannula 4 10/19/22 09:20 Nasal Cannula 2 10/19/22 07:22 36.4 C L 67 16 138/61 100 Nebulizer 10/19/22 07:12 64 20 94 Nasal Cannula 2 Intake & Output 10/17/22 10/18/22 10/19/22 10/20/22 06:59 06:59 06:59 06:59 Intake Total 500 / 500 650 / 650 1452.5 / 1452.5 680 / 680 Output Total 1301 / 1301 700 / 700 2525 / 2525 1050 / 1050 Balance -801 / -801 -50 / -50 -1072.5 / -1072.5 -370 / -370 Weight 204 lb 5.896 oz 204 lb 5.896 oz 203 lb 4.259 oz Laboratory Results Laboratory Results - last 24 hr 10/18/22 10/18/22 10/19/22 16:57 20:10 06:21 WBC 5.67 RBC 3.48 L Hgb 9.3 L Hct 30.3 L MCV 87.1 MCH 26.7 MCHC 30.7 L RDW Std Deviation 49.1 H RDW Coeff of Stephane 15.3 H Plt Count 135 MPV 10.7 Sodium Potassium Chloride Carbon Dioxide Anion Gap BUN Creatinine Est Cr Clr Drug Dosing Est GFR ( Amer) Est GFR (Non-Af Amer) BUN/Creatinine Ratio Glucose POC Glucose 101 H 155 H Calcium 10/19/22 10/19/22 10/19/22 06:21 08:04 11:49 WBC RBC Hgb Hct MCV MCH MCHC RDW Std Deviation RDW Coeff of Stephane Plt Count MPV Sodium 139 Potassium 3.8 Chloride 96 L Carbon Dioxide 38 H Anion Gap 5 BUN 43 H Creatinine 1.45 H Est Cr Clr Drug Dosing 32.4 Est GFR ( Amer) 38.2 Est GFR (Non-Af Amer) 33.0 BUN/Creatinine Ratio 29.7 H Glucose 105 H POC Glucose 109 H 124 H Calcium 9.1 Diagnostic Findings Echo report reviewed from 10/19/2022: Normal LV systolic function. Moderate taortic stenosis, however aortic valve area and dimensionless index suggest possible severe stenosis. Gradient and velocity suggest nonsevere. Moderate mitral regurgitation. Moderate tricuspid regurgitation. Labs reviewed from 10/19/2022: Mildly abnormal but stable renal function, normal potassium, anemia but stable hemoglobin. ECG reviewed from 10/08/2022: Ventricular paced. Chart reviewed Medications Administered Current Inpatient Medications Acetaminophen (Acetaminophen 325 Mg Tab) 650 mg PO Q4H PRN PRN Reason: Pain or fever Stop: 11/07/22 18:27 Last Admin: 10/18/22 05:48 Dose: 650 mg Albuterol (Albut/Ipratrop 3mg/0.5mg Neb 3 Ml Vial) 3 ml NEB QIDR [facility]; Protocol Stop: 11/07/22 18:59 Last Admin: 10/19/22 15:04 Dose: 3 ml Apixaban (Apixaban 2.5 Mg Tab) 2.5 mg PO BID [facility] Stop: 11/09/22 20:59 Last Admin: 10/19/22 08:23 Dose: 2.5 mg Atenolol (Atenolol 50 Mg Tablet) 50 mg PO QAM [facility] Stop: 11/07/22 15:14 Last Admin: 10/19/22 08:23 Dose: 50 mg Buspirone HCl (Buspirone 5 Mg Tab) 5 mg PO BID PRN PRN Reason: anxiety Stop: 11/07/22 15:01 Dextrose (Dextrose 50% 50 Ml Syringe) 25 - 50 ml IV UD PRN; Protocol PRN Reason: Hypoglycemia Protocol Stop: 11/07/22 15:02 Fluticasone Furoate (Fluticasone Furoate 100mcg 14 Puffs/Inhaler) 1 puffs INH DAILY [facility] Stop: 11/07/22 15:14 Last Admin: 10/19/22 08:22 Dose: 1 puffs Glucagon (Glucagon For Inj 1 Mg Vial) 1 mg SQ UD PRN; Protocol PRN Reason: Hypoglycemia Protocol Stop: 11/07/22 15:02 Glucose (Glucose 10 Tab/Tube) 4 - 8 tab PO UD PRN; Protocol PRN Reason: Hypoglycemia Treatment Stop: 11/07/22 15:02 Glucose (Glucose 40% Gel 15 Gm Tube) 15 - 30 gm PO UD PRN; Protocol PRN Reason: Hypoglycemia Protocol Stop: 11/07/22 15:02 Furosemide 100 mg/ Dextrose 100 mls @ 10 mls/hr IV .Q10H [facility] Stop: 11/17/22 15:14 Last Admin: 10/19/22 11:39 Dose: 10 mg/hr, 10 mls/hr Insulin Aspart (Insulin Aspart Per Unit Charge) 0 units SC ACHS [facility] Stop: 11/07/22 16:29 Last Admin: 10/19/22 13:13 Dose: 4 units Insulin Glargine (Lantus Per Unit Charge) 2 units SQ BID [facility] Stop: 11/15/22 09:59 Last Admin: 10/19/22 08:33 Dose: 2 units Isosorbide Mononitrate (Isosorbide [place] Extended Rel 30 Mg Tabcr) 90 mg PO QAM [facility] Stop: 11/07/22 15:14 Last Admin: 10/19/22 08:23 Dose: 90 mg Melatonin (Melatonin 3 Mg Tab) 6 mg PO HS [facility] Stop: 11/11/22 20:59 Last Admin: 10/18/22 20:29 Dose: 6 mg Miscellaneous (Carbohydrates For Hypoglycemia ) 15 - 30 gm PO UD PRN PRN Reason: Hypoglycemia Protocol Stop: 11/07/22 15:02 Last Admin: 10/16/22 07:00 Dose: 15 gm Nystatin (Nystatin Powder 15gm Btl) 1 appln EXT BID PRN PRN Reason: Affected Skin Folds Stop: 11/09/22 23:52 Last Admin: 10/11/22 21:07 Dose: 1 appln Oxycodone HCl (Oxycodone Hcl Ir 5 Mg Tab (Immediate Release)) 5 mg PO Q4H PRN PRN Reason: Pain Stop: 10/22/22 18:27 Last Admin: 10/10/22 14:04 Dose: 5 mg Polyethylene Glycol (Polyethylene (Miralax) 17 Gm Pack) 17 gm PO DAILY [facility] Stop: 11/10/22 14:44 Last Admin: 10/16/22 09:53 Dose: Not Given Simvastatin (Simvastatin 20 Mg Tab) 20 mg PO HS [facility] Stop: 11/07/22 20:59 Last Admin: 10/18/22 20:29 Dose: 20 mg Sodium Chloride (Sodium Chlor 7% 4 Ml Neb) 4 ml NEB BIDR [facility] Stop: 11/07/22 18:59 Last Admin: 10/19/22 07:09 Dose: 4 ml Umeclidinium/Vilanterol (Umeclidinium/Vilanterol 62.5/25mcg 7 Puffs/Inhaler) 1 puffs INH DAILY [facility] Stop: 11/07/22 15:14 Last Admin: 10/19/22 08:22 Dose: 1 puffs PG Care Time/CCT Total # of Minutes Spent Total Time Spent with Patient: Total time spent is greater than 50% in coordination of care (as documented) at patient's floor/unit and/or counseling patient: Coding Level of Care Code 31059 SUB INP/OBS CARE 3/50MIN Diagnoses Acute on chronic heart failure with preserved ejection fraction I50.33 Aortic stenosis I35.0 Atrial fibrillation I48.91 Pacemaker Z95.0 Mitral regurgitation I34.0 CAD (coronary artery disease) I25.10
[2022-10-19] MEDS: SIMVASTATIN 20 MG TAB PO SCH (20:49)
[2022-10-19] MEDS: MELATONIN 3 MG TAB PO SCH (20:54)
[2022-10-19] MEDS: ACETAMINOPHEN 325 MG TAB PO PRN (20:56)
[2022-10-20] MEDS ORDERED: CHLOROTHIAZIDE SODIUM 250 MG in DEXTROSE 5% 50 ML IV ONE (06:54)
[2022-10-20] MEDS: SODIUM CHLOR 7% 4 ML NEB NEB SCH ×2 (06:56→19:17)
[2022-10-20] MEDS: ALBUT/IPRATROP 3MG/0.5MG NEB 3 ML VIAL NEB SCH ×4 (07:07→19:17)
[2022-10-20] MEDS: FUROSEMIDE 100 MG in DEXTROSE 5% 90 ML IV SCH ×3 (07:22→21:27)
[2022-10-20 07:33] LABS: Hemoglobin 9.5 g/dl (12.0-16.0); Mean Corpuscular Hgb Conc 30.6 g/dL (32.0-36.0); Mean Corpuscular Volume 88.1 fL (80.0-100.0); Mean Platelet Volume 10.4 fL (9.4-12.4); Platelet Count 148 K/uL (130-400); RDW Coefficient of Variation 15.1 % (11.5-14.5); RDW Standard Deviation 48.9 fL (36.4-46.3); Red Blood Count 3.52 M/uL (4.20-5.40); White Blood Count 4.98 K/ul (4.8-10.8)
[2022-10-20 07:49] LABS: BUN Creatinine Ratio 33.1 (10-20); Calcium 9.3 mg/dl (8.6-10.3); Creatinine Clr Calc Pharmacy 33.1 ml/min; Est GFR (African American) 39.2 ml/min; Est GFR (Non-African American) 33.8 ml/min; Potassium 3.4 mmol/L (3.5-5.1)
[2022-10-20] MEDS ORDERED: POTASSIUM CHLORIDE CRTAB 20 MEQ TABCR PO STA (08:13)
--- NOTE | 2022-10-20 08:26 | Hospitalist Progress Note ---
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 Acute on chronic HFpEF Breathing improved. LE edema improving. * Low Na diet, fluid restrict 1500ml * Per cardio -Started on Lasix drip 10/18 with expected diuresis. Now negative ~8.5L since admission. Cr today 1.42. -s/p one dose metolazone 5mgs on 10/18 -Diuril administered today (10/20) and Lasix gtt increased. -Monitor BMP BID while on Lasix gtt. Potassium 3.4 today, bicarb elevated * Booker catheter in place for I and O monitoring. * Standing weight today is 91.6kg. Cumulative Neg fluid balance of ~9500 Acute on chronic respiratory failure, COPD with asthma Worsening oxygenation status in setting of HFpEF exacerbation. Improving oxygenation with diuresis. * Continue home ICS and LAMA/LABA for obstructive airway disease. * Added on albuterol and NS nebs as patient was having wheezing. * Baseline oxygen requirement 2-3L. Improved. Continue to monitor. A fib Rate controlled at present. Ventricularly paced. * Eliquis had been renally dosed, but since Cr stabilized <1.50, will return to 5mg BID * Atenolol 50 QAM T2DM HbA1C 5.5 in August, no need to repeat * Hold usual home med * Lantus 5 units BID Novolog: -Goal BSG Range: Low 110 mg/dL, High 140 mg/dL -Correction Factor: 45 mg/dL/unit -Carbohydrate ratio = 15 g/unit -BSGs ACHS if eating, q6h if npo Leg Pain -Likely neuropathic from diabetes worsened due to leg edema chronic and acute worsening from fluid overload -Pain improving Sleeping Difficulties Increased anxiety with sons going through medical challenges. Having a hard time falling asleep and staying asleep even with at home CPAP. * Melatonin increased to 6 mg, working better per patient VTE Prophylaxis - Eliquis Diet - Low Na, Low K, heart healthy, T2DM, fluid restrict Disposition - Med/surg; * Working with CM to find meal options for low sodium. Code status: Full Admission and Anticipated Discharge Date Admission Date: October 08, 2022 Supervising Physician Co-Signing Physician Notes Resident Physician Supervision Note: I independently interviewed and examined the patient and verified the gamez history and physical, reviewed labs and image studies and agree with resident findings and care plan. Subjective Patient seen and examined at bedside. States she slept until about 4am, no overnight events. Patient states her breathing and legs are both a bit better. Denies chest pain or abdominal pain. Review of Systems Review of Systems: As per above Physical Exam Constitutional: WD/WN, vitals as above Eyes: + anicteric sclerae Respiratory: no respiratory distress Auscultation: + crackles Cardiovascular: Rate/Rhythm: regular rate and regular rhythm Heart Sounds: + murmur +2 edema of bilateral lower extremities Skin: no rashes, warm and dry Psychiatric: A+Ox3, euthymic affect Results & Data Results & Data Vital Signs (Past 12 Hours) Vital Signs Temp Pulse Resp BP Pulse Ox O2 Del Method O2 Flow Rate 10/20/22 08:00 Nasal Cannula 2 10/20/22 07:25 37.0 C 66 16 115/65 94 Nasal Cannula 2 10/20/22 06:58 82 18 Room Air 88 10/19/22 22:42 Nasal Cannula 2 10/19/22 20:42 36.4 C L 63 18 168/74 H 91 Nasal Cannula 2 Resident Activity Tracking Resident Involvement: Resident Care Provided Care Provided: Adult Hospital Medicine
[2022-10-20] MEDS: APIXABAN 2.5 MG TAB PO SCH (08:43)
[2022-10-20] MEDS: ATENOLOL 50 MG TABLET PO SCH (08:43)
[2022-10-20] MEDS: UMECLIDINIUM/VILANTEROL 62.5/25MCG 7 PUFFS/INHALER INH SCH (08:44)
[2022-10-20] MEDS: FLUTICASONE FUROATE 100MCG 14 PUFFS/INHALER INH SCH (08:44)
[2022-10-20] MEDS: ISOSORBIDE MONO EXTENDED REL 30 MG TABCR PO SCH (08:45)
[2022-10-20] MEDS: LANTUS PER UNIT CHARGE SQ SCH ×2 (08:51→21:40)
[2022-10-20] MEDS: INSULIN ASPART PER UNIT CHARGE SC SCH ×4 (08:52→21:40)
--- NOTE | 2022-10-20 11:09 | Cardiology Progress Note ---
Date of Service October 20, 2022 Assessment & Plan (1) Acute on chronic heart failure with preserved ejection fraction: (2) Aortic stenosis: (3) Atrial fibrillation: (4) Pacemaker: (5) Mitral regurgitation: (6) CAD (coronary artery disease): Plan ASSESSMENT/PLAN: 1. Acute on chronic heart failure with preserved EF: She is significantly hypervolemic. Diuresing, but ordered Diuril 250 mg IV x1 to further promote more aggressive diuresis. Will increase Lasix drip to 20 mg/h. Recommend twice daily basic metabolic panel while on a Lasix drip, especially given hypokalemia. Potassium has been supplemented but may require further supplementation with more aggressive diuresis. Strict I's and O's. Daily weights. Low-sodium diet, less than 2000 mg daily. Consider SGLT2 inhibitor in the future if no contraindication. 2. Aortic stenosis: Some parameters are severe on echo while others more moderate. Monitor closely to determine if/when aortic valve replacement would be appropriate. 3. Mitral and tricuspid regurgitation: Continue to monitor with surveillance echo. Described as moderate in August 2022. 4. CAD: Prior [place] in 1992. No angina. Risk factor modification. LDL excellent when last evaluated. 5. Atrial fibrillation: Described as permanent. Has pacemaker in place. Continue anticoagulation for stroke risk reduction. Baseline creatinine is typically less than 1.5 however she was transiently above 1.5. Currently, she has been less than 1.5 for the past several days. Increase Eliquis to 5 mg twice daily. 6. Pacemaker: Followed by Dr. Marcos. 7. Disposition: Cardiology will continue to follow. Dr. Marcos to resume her cardiology care on 10/21/2022. Recommend follow-up in the heart failure program. She has been hospitalized multiple times, with the most recent 2 hospitalizations with heart failure. Primary hospital team, Dr. Allen, notified of recommendations. Admission and Anticipated Discharge Date Admission Date: October 08, 2022 Subjective She feels better today. Her breathing has improved somewhat. Her legs continue to feel less tense. She denies chest pain, palpitations, syncope, no reported bleeding. She was alone in her hospital room. Physical Exam Physical Exam: Gen.: No acute distress. Alert and oriented. HEENT: Anicteric sclera. Neck: JVD to the mandible sitting upright. Cardiac: No ventricular heave. Regular. Normal S1-S2. 2/6 mid peaking systolic ejection murmur best heard at the right upper sternal border. Pulmonary: Mild bibasilar rales. Decreased breath sounds bilaterally. Abdomen: Soft, nontender, nondistended, with normoactive bowel sounds. No bruits noted. 1+ lower abdominal edema. Extremities: 1+ radial pulses bilaterally. 3+ bilateral lower extremity edema to the knees. 2+ edema to the hips. No cyanosis. Psychiatric: Affect appears appropriate. Results & Data Vital Signs (Past 12 Hours) Vital Signs Temp Pulse Resp BP Pulse Ox O2 Del Method O2 Flow Rate 10/20/22 10:52 78 20 96 Nasal Cannula 2 10/20/22 08:00 Nasal Cannula 2 10/20/22 07:25 37.0 C 66 16 115/65 94 Nasal Cannula 2 10/20/22 06:58 82 18 Room Air 88 Intake & Output 10/18/22 10/19/22 10/20/22 10/21/22 06:59 06:59 06:59 06:59 Intake Total 650 / 650 1452.5 / 1452.5 1068.167 / 1068.167 158 / 158 Output Total 700 / 700 2525 / 2525 2200 / 2200 Balance -50 / -50 -1072.5 / -1072.5 -1131.833 / -1131.833 158 / 158 Weight 204 lb 5.896 oz 203 lb 4.259 oz 203 lb 4.259 oz 201 lb 15.095 oz Laboratory Results Laboratory Results - last 24 hr 10/19/22 10/19/22 10/20/22 17:14 20:29 07:08 WBC 4.98 RBC 3.52 L Hgb 9.5 L Hct 31.0 L MCV 88.1 MCH 27.0 MCHC 30.6 L RDW Std Deviation 48.9 H RDW Coeff of Stephane 15.1 H Plt Count 148 MPV 10.4 Sodium Potassium Chloride Carbon Dioxide Anion Gap BUN Creatinine Est Cr Clr Drug Dosing Est GFR ( Amer) Est GFR (Non-Af Amer) BUN/Creatinine Ratio Glucose POC Glucose 127 H 137 H Calcium 10/20/22 10/20/22 10/20/22 07:08 07:52 12:00 WBC RBC Hgb Hct MCV MCH MCHC RDW Std Deviation RDW Coeff of Stephane Plt Count MPV Sodium 138 Potassium 3.4 L Chloride 93 L Carbon Dioxide 41 H* Anion Gap 4 BUN 47 H Creatinine 1.42 H Est Cr Clr Drug Dosing 33.1 Est GFR ( Amer) 39.2 Est GFR (Non-Af Amer) 33.8 BUN/Creatinine Ratio 33.1 H Glucose 98 POC Glucose 105 H 134 H Calcium 9.3 Diagnostic Findings Chart reviewed. Labs reviewed from 10/20/2022: Mild hypokalemia, mildly abnormal but stable renal function, stable anemia. Medications Administered Current Inpatient Medications Acetaminophen (Acetaminophen 325 Mg Tab) 650 mg PO Q4H PRN PRN Reason: Pain or fever Stop: 11/07/22 18:27 Last Admin: 10/19/22 20:56 Dose: 650 mg Albuterol (Albut/Ipratrop 3mg/0.5mg Neb 3 Ml Vial) 3 ml NEB QIDR [facility]; Protocol Stop: 11/07/22 18:59 Last Admin: 10/20/22 10:49 Dose: 3 ml Apixaban (Apixaban 2.5 Mg Tab) 2.5 mg PO BID [facility] Stop: 11/09/22 20:59 Last Admin: 10/20/22 08:43 Dose: 2.5 mg Atenolol (Atenolol 50 Mg Tablet) 50 mg PO QAM [facility] Stop: 11/07/22 15:14 Last Admin: 10/20/22 08:43 Dose: 50 mg Buspirone HCl (Buspirone 5 Mg Tab) 5 mg PO BID PRN PRN Reason: anxiety Stop: 11/07/22 15:01 Dextrose (Dextrose 50% 50 Ml Syringe) 25 - 50 ml IV UD PRN; Protocol PRN Reason: Hypoglycemia Protocol Stop: 11/07/22 15:02 Fluticasone Furoate (Fluticasone Furoate 100mcg 14 Puffs/Inhaler) 1 puffs INH DAILY [facility] Stop: 11/07/22 15:14 Last Admin: 10/20/22 08:44 Dose: 1 puffs Glucagon (Glucagon For Inj 1 Mg Vial) 1 mg SQ UD PRN; Protocol PRN Reason: Hypoglycemia Protocol Stop: 11/07/22 15:02 Glucose (Glucose 10 Tab/Tube) 4 - 8 tab PO UD PRN; Protocol PRN Reason: Hypoglycemia Treatment Stop: 11/07/22 15:02 Glucose (Glucose 40% Gel 15 Gm Tube) 15 - 30 gm PO UD PRN; Protocol PRN Reason: Hypoglycemia Protocol Stop: 11/07/22 15:02 Furosemide 100 mg/ Dextrose 100 mls @ 10 mls/hr IV .Q10H [facility] Stop: 11/17/22 15:14 Last Admin: 10/20/22 07:22 Dose: 10 mg/hr, 10 mls/hr Insulin Aspart (Insulin Aspart Per Unit Charge) 0 units SC ACHS [facility] Stop: 11/07/22 16:29 Last Admin: 10/20/22 08:52 Dose: 2 units Insulin Glargine (Lantus Per Unit Charge) 2 units SQ BID [facility] Stop: 11/15/22 09:59 Last Admin: 10/20/22 08:51 Dose: 2 units Isosorbide Mononitrate (Isosorbide [place] Extended Rel 30 Mg Tabcr) 90 mg PO QAM [facility] Stop: 11/07/22 15:14 Last Admin: 10/20/22 08:45 Dose: 90 mg Melatonin (Melatonin 3 Mg Tab) 6 mg PO HS [facility] Stop: 11/11/22 20:59 Last Admin: 10/19/22 20:54 Dose: 6 mg Miscellaneous (Carbohydrates For Hypoglycemia ) 15 - 30 gm PO UD PRN PRN Reason: Hypoglycemia Protocol Stop: 11/07/22 15:02 Last Admin: 10/16/22 07:00 Dose: 15 gm Nystatin (Nystatin Powder 15gm Btl) 1 appln EXT BID PRN PRN Reason: Affected Skin Folds Stop: 11/09/22 23:52 Last Admin: 10/11/22 21:07 Dose: 1 appln Oxycodone HCl (Oxycodone Hcl Ir 5 Mg Tab (Immediate Release)) 5 mg PO Q4H PRN PRN Reason: Pain Stop: 10/22/22 18:27 Last Admin: 10/10/22 14:04 Dose: 5 mg Polyethylene Glycol (Polyethylene (Miralax) 17 Gm Pack) 17 gm PO DAILY [facility] Stop: 11/10/22 14:44 Last Admin: 10/16/22 09:53 Dose: Not Given Simvastatin (Simvastatin 20 Mg Tab) 20 mg PO HS [facility] Stop: 11/07/22 20:59 Last Admin: 10/19/22 20:49 Dose: 20 mg Sodium Chloride (Sodium Chlor 7% 4 Ml Neb) 4 ml NEB BIDR [facility] Stop: 11/07/22 18:59 Last Admin: 10/20/22 06:56 Dose: 4 ml Umeclidinium/Vilanterol (Umeclidinium/Vilanterol 62.5/25mcg 7 Puffs/Inhaler) 1 puffs INH DAILY [facility] Stop: 11/07/22 15:14 Last Admin: 10/20/22 08:44 Dose: 1 puffs PG Care Time/CCT Total # of Minutes Spent Total Time Spent with Patient: Total time spent is greater than 50% in coordination of care (as documented) at patient's floor/unit and/or counseling patient: Coding Level of Care Code 14652 SUB INP/OBS CARE 3/50MIN Diagnoses Acute on chronic heart failure with preserved ejection fraction I50.33 Aortic stenosis I35.0 Atrial fibrillation I48.91 Pacemaker Z95.0 Mitral regurgitation I34.0 CAD (coronary artery disease) I25.10
[2022-10-20 17:20] LABS: BUN Creatinine Ratio 35.3 (10-20); Calcium 9.4 mg/dl (8.6-10.3); Creatinine Clr Calc Pharmacy 34.4 ml/min; Est GFR (African American) 41.3 ml/min; Est GFR (Non-African American) 35.6 ml/min; Potassium 3.5 mmol/L (3.5-5.1)
[2022-10-20] MEDS: APIXABAN 5 MG TABLET PO SCH (21:27)
[2022-10-20] MEDS: SIMVASTATIN 20 MG TAB PO SCH (21:27)
[2022-10-20] MEDS: ACETAMINOPHEN 325 MG TAB PO PRN (21:39)
[2022-10-20] MEDS: MELATONIN 3 MG TAB PO SCH (21:39)
[2022-10-21] MEDS: FUROSEMIDE 100 MG in DEXTROSE 5% 90 ML IV SCH ×5 (02:30→22:33)
[2022-10-21 06:41] LABS: Hematocrit (blood only) 29.5 % (37.0-47.0); Hemoglobin 9.1 g/dl (12.0-16.0); Mean Corpuscular Hemoglobin 26.8 pg (25.0-34.0); Mean Corpuscular Hgb Conc 30.8 g/dL (32.0-36.0); Mean Corpuscular Volume 86.8 fL (80.0-100.0); Mean Platelet Volume 10.7 fL (9.4-12.4); Platelet Count 139 K/uL (130-400); RDW Coefficient of Variation 15.2 % (11.5-14.5); RDW Standard Deviation 48.2 fL (36.4-46.3); White Blood Count 4.65 K/ul (4.8-10.8)
[2022-10-21] MEDS: ACETAMINOPHEN 325 MG TAB PO PRN ×2 (06:42→21:21)
[2022-10-21 06:55] LABS: BUN Creatinine Ratio 33.1 (10-20); Calcium 9.2 mg/dl (8.6-10.3); Creatinine Clr Calc Pharmacy 32.7 ml/min; Est GFR (African American) 39.2 ml/min; Est GFR (Non-African American) 33.8 ml/min; Potassium 3.4 mmol/L (3.5-5.1)
[2022-10-21] MEDS: ALBUT/IPRATROP 3MG/0.5MG NEB 3 ML VIAL NEB SCH ×3 (07:21→20:01)
[2022-10-21] MEDS: SODIUM CHLOR 7% 4 ML NEB NEB SCH ×2 (07:21→20:01)
[2022-10-21] MEDS ORDERED: POTASSIUM CHLORIDE CRTAB 20 MEQ TABCR PO ONE (08:03)
[2022-10-21] MEDS: APIXABAN 5 MG TABLET PO SCH ×2 (08:51→19:30)
[2022-10-21] MEDS: ATENOLOL 50 MG TABLET PO SCH (08:52)
[2022-10-21] MEDS: ISOSORBIDE MONO EXTENDED REL 30 MG TABCR PO SCH (08:52)
[2022-10-21] MEDS: FLUTICASONE FUROATE 100MCG 14 PUFFS/INHALER INH SCH (08:53)
[2022-10-21] MEDS: UMECLIDINIUM/VILANTEROL 62.5/25MCG 7 PUFFS/INHALER INH SCH (08:53)
[2022-10-21] MEDS: INSULIN ASPART PER UNIT CHARGE SC SCH ×4 (09:04→21:18)
[2022-10-21] MEDS: LANTUS PER UNIT CHARGE SQ SCH ×2 (09:05→21:18)
--- NOTE | 2022-10-21 10:49 | Hospitalist Progress Note ---
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 Acute on chronic HFpEF - Continue low Na diet, fluid restriction 1500 mL - Per cardio: -Started on Lasix drip 10/18 with expected diuresis. Now negative ~12L since admission. Cr today 1.42 -s/p one dose metolazone 5mg on 10/18 -Diuril administered today (10/20) and Lasix gtt increased -Monitor BMP BID while on Lasix gtt. Potassium 3.4 this AM, bicarb elevated - Booker catheter in place for I and O monitoring - Standing weight today is 90.2 kg Acute on chronic respiratory failure, COPD with asthma Worsening oxygenation status in setting of HFpEF exacerbation. Improving oxygenation with diuresis. Now back at baseline oxygen requirement (2-3L). * Continue home ICS and LAMA/LABA for obstructive airway disease * Added on albuterol and NS nebs as patient was having wheezing Afib - Rate controlled at present. Ventricularly paced - continue Eliquis 5 mg BID, atenolol 50 mg qAM T2DM HbA1C 5.5 in August, no need to repeat * Hold usual home med * Lantus 5 units BID Novolog -Goal BSG Range: Low 110 mg/dL, High 140 mg/dL -Correction Factor: 45 mg/dL/unit -Carbohydrate ratio = 15 g/unit -BSGs ACHS if eating, q6h if npo Leg pain -Likely neuropathic from diabetes worsened due to leg edema chronic and acute worsening from fluid overload -Pain improving Sleeping difficulties Increased anxiety with sons going through medical challenges. Having a hard time falling asleep and staying asleep even with at home CPAP. * Continue melatonin 6 mg VTE ppx: Eliquis Diet: Low Na, Low K, heart healthy, T2DM, fluid restrict Disposition: med/surg, plan to go to [facility] no earlier than Friday Code status: Full Admission and Anticipated Discharge Date Admission Date: October 08, 2022 Supervising Physician Co-Signing Physician Notes I personally examined the patient and verified all gamez points of history and exam, discussed case, and agree with decision making with Dr Leo feeling better overall. breathing still improving. otherwise waiting on juniper vitals noted nad heent nc at mmm breathing unlabored no accessory muscle use good effort. Skin shows no rashes no pallor or icterus. acute on chronic diastolic CHF - doing better. continue to diurese but would be stable when SNF available for transition to PO diuretics and close outpt f/u otherwise as above Subjective Pt is breathing better this morning was still not normally. Her oxygen is back to baseline. No acute chest pain or increased SOB. Review of Systems Review of Systems: As per HPI Physical Exam Physical Exam: Constitutional: well appearing, no acute distress HEENT: normocephalic, no conjunctival injection CV: RRR, no murmur, 3+ bilateral LE edema Respiratory: CTA bilaterally with decreased breath sounds in bilateral basilar lobes. No rhonchi, wheezes, or crackles. No increased work of breathing MSK: no gross deformities noted Skin: warm, dry, no rashes Neuro: alert, oriented, no FND noted Psych: mood and affect congruent Results & Data Results & Data Vital Signs (Past 12 Hours) Vital Signs Temp Pulse Resp BP Pulse Ox O2 Del Method O2 Flow Rate 10/21/22 07:44 36.5 C 65 17 145/55 H 97 Nasal Cannula 2 10/21/22 07:21 70 16 94 Nasal Cannula 2 Resident Activity Tracking Resident Involvement: Resident Care Provided Care Provided: Adult Hospital Medicine
--- NOTE | 2022-10-21 12:34 | Cardiology Progress Note ---
Date of Service October 21, 2022 Assessment & Plan (1) Acute on chronic heart failure with preserved ejection fraction: (2) Aortic stenosis: (3) Atrial fibrillation: (4) Pacemaker: (5) Mitral regurgitation: (6) CAD (coronary artery disease): Plan ASSESSMENT/PLAN: 1. Acute on chronic heart failure with preserved EF: She is significantly hypervolemic. BNP > 4k on admission. She has had a good response to increase in Lasix drip to 20 mg/h. Also had Diuril x 1 yesterday. Kidney function stable. Recommend twice daily basic metabolic panel while on a Lasix drip, especially given hypokalemia. Potassium has been supplemented but may require further supplementation with more aggressive diuresis. Goal of 1-2 L negative/24 hs). Strict I's and O's. Daily STANDING weights. Low-sodium diet, less than 2000 mg daily. Consider SGLT2 inhibitor in the future if no contraindication. Heart failure program was introduced to her today. Patient mentions she is planning to move to [place] post discharge. This will likely be assisted. Case management is looking into rehab options for her. Therefore she will likely need to establish with a local engineering design supervisor there and will not follow with the heart failure program post discharge. 2. Aortic stenosis: Some parameters are severe on echo while others more moderate. Monitor closely to determine if/when aortic valve replacement would be appropriate. 3. Mitral and tricuspid regurgitation: Continue to monitor with surveillance echo. Described as moderate in August 2022. 4. CAD: Prior [place] in 1992. No angina. Risk factor modification. LDL excellent when last evaluated. 5. Atrial fibrillation: Described as permanent. Has pacemaker in place. Continue anticoagulation for stroke risk reduction. Baseline creatinine is typically less than 1.5 however she was transiently above 1.5. Currently, she has been less than 1.5 for the past several days. Increase Eliquis to 5 mg twice daily. 6. Pacemaker: Followed by Dr. Marcos. 7. Disposition: Cardiology will continue to follow. Dr. Marocs to resume her cardiology care on 10/21/2022. She has been hospitalized multiple times, with the most recent 2 hospitalizations with heart failure. Admission and Anticipated Discharge Date Admission Date: October 08, 2022 Subjective Patient reports feeling improved this am. She continues to require supplemental O2 at 2L but overall is breathing better. She slept well with her head elevated. Continues to have significant lower extremity edema. She's responding well to Lasix drip, negative 2.5 L overnight. Weight is 198 lb on standing scale this am. She denies chest pain, cough, palpitations. Physical Exam Physical Exam: Gen.: No acute distress. Alert and oriented. O2 via NC HEENT: Anicteric sclera. Neck: JVD to the mandible sitting upright. Cardiac: No ventricular heave. Regular. Normal S1-S2. 2/6 mid peaking systolic ejection murmur best heard at the right upper sternal border. Pulmonary: Mild bibasilar rales. Decreased breath sounds bilaterally. Abdomen: Soft, nontender, nondistended, with normoactive bowel sounds. No bruits noted. Extremities: 1+ radial pulses bilaterally. 2+ bilateral lower extremity edema to the knees. 1+ edema posterior thighs. No cyanosis. Psychiatric: Affect appears appropriate. Results & Data Vital Signs (Past 12 Hours) Vital Signs Temp Pulse Resp BP Pulse Ox O2 Del Method O2 Flow Rate 10/21/22 07:10 Nasal Cannula 2 10/21/22 11:10 66 17 96 Nasal Cannula 2 10/21/22 07:44 97.7 F 65 17 145/55 H 97 Nasal Cannula 2 10/21/22 07:21 70 16 94 Nasal Cannula 2 PG Care Time/CCT Total # of Minutes Spent Total Time Spent with Patient: Total time spent is greater than 50% in coordination of care (as documented) at patient's floor/unit and/or counseling patient: Coding Level of Care Code 12124 SUB INP/OBS CARE 25MIN Diagnoses Acute on chronic heart failure with preserved ejection fraction I50.33 Aortic stenosis I35.0 Atrial fibrillation I48.91 Pacemaker Z95.0 Mitral regurgitation I34.0 CAD (coronary artery disease) I25.10
--- NOTE | 2022-10-21 17:59 | Billing Data ---
Date of Service October 21, 2022 Coding Level of Care Code 57404 SUB INP/OBS CARE
[2022-10-21 18:25] LABS: Calcium 9.4 mg/dl (8.6-10.3); Creatinine Clr Calc Pharmacy 30.4 ml/min; Est GFR (African American) 35.8 ml/min; Est GFR (Non-African American) 30.9 ml/min; Potassium 3.5 mmol/L (3.5-5.1)
[2022-10-21] MEDS: SIMVASTATIN 20 MG TAB PO SCH (19:30)
[2022-10-21] MEDS: MELATONIN 3 MG TAB PO SCH (21:21)
[2022-10-22] MEDS: FUROSEMIDE 100 MG in DEXTROSE 5% 90 ML IV SCH ×5 (03:33→23:30)
--- NOTE | 2022-10-22 07:23 | Hospitalist Progress Note ---
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 Acute on chronic HFpEF - Continue low Na diet, fluid restriction 1500 mL - Per cardio: -continue lasix drip; negative ~13L since admission. Cr stable -s/p metolazone 5mg on 10/18, diuril dose 10/20 -Monitor BMP BID while on Lasix gtt - Booker catheter in place for I and O monitoring - Weight today is 90 kg Acute on chronic respiratory failure, COPD with asthma - Worsening oxygenation status in setting of HFpEF exacerbation; improved oxygenation with diuresis, now back at baseline oxygen requirement (2-3L) - Continue home ICS and LAMA/LABA for obstructive airway disease; continue albuterol and NS nebs (added d/t wheezing) Afib - Rate controlled at present; ventricularly paced - continue Eliquis 5 mg BID, atenolol 50 mg qAM T2DM HbA1C 5.5 in August, no need to repeat * Hold usual home med * Lantus 5 units BID Novolog -Goal BSG Range: Low 110 mg/dL, High 140 mg/dL -Correction Factor: 45 mg/dL/unit -Carbohydrate ratio = 15 g/unit -BSGs ACHS if eating, q6h if npo Leg pain -Likely neuropathic from diabetes worsened due to leg edema chronic and acute worsening from fluid overload -Pain improving as diuresis continues Sleeping difficulties Increased anxiety with sons going through medical challenges. Having a hard time falling asleep and staying asleep even with at home CPAP. * Continue melatonin 6 mg VTE ppx: Eliquis Diet: Low Na, Low K, heart healthy, T2DM, fluid restrict Disposition: med/surg, medically stable for d/c to [facility] when able Code status: Full Admission and Anticipated Discharge Date Admission Date: October 08, 2022 Supervising Physician Co-Signing Physician Notes I personally examined the patient and verified all gamez points of history and exam, discussed case, and agree with decision making with Dr Leo sleeping comfortably whenever I see her, no new issues identified by resident physician, none noted on chart review, patient largely pending placement at [facility] vitals noted resting comfortably and appears innad heent nc at mmm breathing unlabored no accessory muscle use at rest. Skin shows no rashes no pallor or icterus. acute on chronic diastolic CHF - doing better. continue to diurese (continue IVs for now, but slight slowly worsening metabolic alkalosis suggest we may be getting her about as dry as we can acutely) but would be stable when SNF available for transition to PO diuretics and close outpt f/u otherwise as above Subjective Pt feeling about the same as yesterday. Breathing is no better and no worse. No new symptoms. Review of Systems Review of Systems: As per HPI Physical Exam Physical Exam: Constitutional: well appearing, no acute distress HEENT: normocephalic, no conjunctival injection CV: RRR, no murmur, no LE edema Respiratory: Rhonchus sounds throughout. No wheezes or crackles. No increased w ork of breathing MSK: no gross deformities noted Skin: warm, dry, no rashes Neuro: alert, oriented, no FND noted Psych: mood and affect congruent Results & Data Results & Data Vital Signs (Past 12 Hours) Vital Signs Temp Pulse Resp BP Pulse Ox O2 Del Method O2 Flow Rate 10/21/22 22:10 36.8 C 67 18 154/62 H 93 Nasal Cannula 10/21/22 19:30 Nasal Cannula, CPAP 2 10/21/22 20:03 65 18 95 Nasal Cannula 2 Resident Activity Tracking Resident Involvement: Resident Care Provided Care Provided: Adult Hospital Medicine
[2022-10-22 07:28] LABS: Hemoglobin 9.6 g/dl (12.0-16.0); Mean Corpuscular Hemoglobin 26.7 pg (25.0-34.0); Mean Corpuscular Volume 86.1 fL (80.0-100.0); Mean Platelet Volume 10.6 fL (9.4-12.4); Platelet Count 155 K/uL (130-400); RDW Coefficient of Variation 15.1 % (11.5-14.5); RDW Standard Deviation 48.2 fL (36.4-46.3); White Blood Count 5.05 K/ul (4.8-10.8)
[2022-10-22] MEDS: ISOSORBIDE MONO EXTENDED REL 30 MG TABCR PO SCH (07:57)
[2022-10-22] MEDS: ATENOLOL 50 MG TABLET PO SCH (07:57)
[2022-10-22] MEDS: APIXABAN 5 MG TABLET PO SCH ×2 (07:58→19:49)
[2022-10-22] MEDS: FLUTICASONE FUROATE 100MCG 14 PUFFS/INHALER INH SCH (07:58)
[2022-10-22] MEDS: UMECLIDINIUM/VILANTEROL 62.5/25MCG 7 PUFFS/INHALER INH SCH (07:58)
[2022-10-22 08:02] LABS: BUN Creatinine Ratio 35.2 (10-20); Calcium 9.2 mg/dl (8.6-10.3); Creatinine Clr Calc Pharmacy 32.7 ml/min; Est GFR (African American) 39.2 ml/min; Est GFR (Non-African American) 33.8 ml/min; Potassium 3.5 mmol/L (3.5-5.1)
[2022-10-22] MEDS: ALBUT/IPRATROP 3MG/0.5MG NEB 3 ML VIAL NEB SCH ×2 (08:15→20:26)
[2022-10-22] MEDS: SODIUM CHLOR 7% 4 ML NEB NEB SCH ×2 (08:20→20:26)
[2022-10-22] MEDS: INSULIN ASPART PER UNIT CHARGE SC SCH ×4 (09:08→21:17)
[2022-10-22] MEDS: LANTUS PER UNIT CHARGE SQ SCH ×2 (09:08→21:17)
--- NOTE | 2022-10-22 13:06 | Billing Data ---
Date of Service October 22, 2022 Coding Level of Care Code 06268 SUB INP/OBS CARE
--- NOTE | 2022-10-22 13:52 | Cardiology Progress Note ---
Date of Service October 22, 2022 Assessment & Plan (1) Acute on chronic heart failure with preserved ejection fraction: (2) Aortic stenosis: (3) Atrial fibrillation: (4) Pacemaker: (5) Mitral regurgitation: (6) CAD (coronary artery disease): Plan ASSESSMENT/PLAN: 1. Acute on chronic heart failure with preserved EF: She is significantly hypervolemic. Diuresis improved with Lasix drip and has had Diuril. Bicarb level increasing. Acetazolamide 500 mg IV x1 today. Recommend twice daily basic metabolic panel while on a Lasix drip, especially given hypokalemia. Goal of 1-2 L negative/day. Strict I's and O's. Daily standing weights. Low- sodium diet, less than 2000 mg daily. Consider SGLT2 inhibitor in the future if no contraindication. Heart failure program was introduced to her but she is planning to move to [place] post discharge. 2. Aortic stenosis: Some parameters are severe on echo while others more moderate. Monitor closely to determine if/when aortic valve replacement would be appropriate. 3. Mitral and tricuspid regurgitation: Continue to monitor with surveillance echo. Described as moderate in August 2022. 4. CAD: Prior [place] in 1992. No angina. Risk factor modification. LDL excellent when last evaluated. 5. Atrial fibrillation: Described as permanent. Has pacemaker in place. Continue anticoagulation for stroke risk reduction. Baseline creatinine is typically less than 1.5 however she was transiently above 1.5. Continue Eliquis 5 mg twice daily unless renal function consistently remains with a creatinine of 1.5 or greater. 6. Pacemaker: Followed by Dr. Marcos. 7. Disposition: Cardiology will continue to follow. Dr. Marcos to resume her cardiology care on 10/23/2022. Plan of care communicated with Dr. Avery. Admission and Anticipated Discharge Date Admission Date: October 08, 2022 Subjective Patient seen this morning. Breathing improving daily but still not back to baseline. Edema continues to improve, but once again not back to baseline. She denies chest pain, syncope, palpitations. She was alone in her hospital room. Physical Exam 2 Physical Exam: Gen.: No acute distress. Alert and oriented. HEENT: Anicteric sclera. Neck: JVD noted. Cardiac: No ventricular heave. Regular. Normal S1-S2. 2/6 mid peaking systolic ejection murmur best heard at the right upper sternal border. Pulmonary: Mild bibasilar rales. Decreased breath sounds bilaterally. Abdomen: Soft, nontender, nondistended, with normoactive bowel sounds. No bruits noted. Trace lower abdominal edema. Extremities: 1+ radial pulses bilaterally. 3+ bilateral lower extremity edema to the knees. 1-2+ edema to the hips. No cyanosis. Psychiatric: Affect appears appropriate. Results & Data Vital Signs (Past 12 Hours) Vital Signs Temp Pulse Resp BP Pulse Ox O2 Del Method O2 Flow Rate 10/22/22 08:00 Nasal Cannula 4 10/22/22 08:15 62 18 97 Nasal Cannula 2 10/22/22 07:20 36.4 C L 67 18 163/72 H 95 Nasal Cannula 2 Intake & Output 10/20/22 10/21/22 10/22/22 10/23/22 06:59 06:59 06:59 06:59 Intake Total 1068.167 / 1068.167 645.667 / 984.399 2856.667 / 1374.667 200 / 200 Output Total 2200 / 2200 3100 / 3100 2300 / 2300 Balance -1131.833 / -1131.833 -2454.333 / -2454.333 -925.333 / -925.333 200 / 200 Weight 203 lb 4.259 oz 198 lb 13.711 oz 198 lb 6.656 oz Laboratory Results Laboratory Results - last 24 hr 10/21/22 10/21/22 10/21/22 17:29 17:54 20:53 WBC RBC Hgb Hct MCV MCH MCHC RDW Std Deviation RDW Coeff of Stephane Plt Count MPV Sodium 136 Potassium 3.5 Chloride 89 L Carbon Dioxide 42 H* Anion Gap 5 BUN 49 H Creatinine 1.53 H Est Cr Clr Drug Dosing 30.4 Est GFR ( Amer) 35.8 Est GFR (Non-Af Amer) 30.9 BUN/Creatinine Ratio 32.0 H Glucose 129 H POC Glucose 155 H 140 H Calcium 9.4 10/22/22 10/22/22 10/22/22 06:54 06:54 08:10 WBC 5.05 RBC 3.60 L Hgb 9.6 L Hct 31.0 L MCV 86.1 MCH 26.7 MCHC 31.0 L RDW Std Deviation 48.2 H RDW Coeff of Stephane 15.1 H Plt Count 155 MPV 10.6 Sodium 137 Potassium 3.5 Chloride 90 L Carbon Dioxide 43 H* Anion Gap 4 BUN 50 H Creatinine 1.42 H Est Cr Clr Drug Dosing 32.7 Est GFR ( Amer) 39.2 Est GFR (Non-Af Amer) 33.8 BUN/Creatinine Ratio 35.2 H Glucose 108 H POC Glucose 105 H Calcium 9.2 10/22/22 12:05 WBC RBC Hgb Hct MCV MCH MCHC RDW Std Deviation RDW Coeff of Stephane Plt Count MPV Sodium Potassium Chloride Carbon Dioxide Anion Gap BUN Creatinine Est Cr Clr Drug Dosing Est GFR ( Amer) Est GFR (Non-Af Amer) BUN/Creatinine Ratio Glucose POC Glucose 162 H Calcium Diagnostic Findings Chart reviewed. Labs reviewed and notable for stable renal function, elevated bicarb, anemia. Medications Administered Current Inpatient Medications Acetaminophen (Acetaminophen 325 Mg Tab) 650 mg PO Q4H PRN PRN Reason: Pain or fever Stop: 11/07/22 18:27 Last Admin: 10/21/22 21:21 Dose: 650 mg Albuterol (Albut/Ipratrop 3mg/0.5mg Neb 3 Ml Vial) 3 ml NEB BIDR LUIS; Protocol Stop: 11/20/22 18:59 Last Admin: 10/22/22 08:15 Dose: 3 ml Apixaban (Apixaban 5 Mg Tablet) 5 mg PO BID [facility] Stop: 11/19/22 20:59 Last Admin: 10/22/22 07:58 Dose: 5 mg Atenolol (Atenolol 50 Mg Tablet) 50 mg PO QAM LUIS Stop: 11/07/22 15:14 Last Admin: 10/22/22 07:57 Dose: 50 mg Buspirone HCl (Buspirone 5 Mg Tab) 5 mg PO BID PRN PRN Reason: anxiety Stop: 11/07/22 15:01 Dextrose (Dextrose 50% 50 Ml Syringe) 25 - 50 ml IV UD PRN; Protocol PRN Reason: Hypoglycemia Protocol Stop: 11/07/22 15:02 Fluticasone Furoate (Fluticasone Furoate 100mcg 14 Puffs/Inhaler) 1 puffs INH DAILY [facility] Stop: 11/07/22 15:14 Last Admin: 10/22/22 07:58 Dose: 1 puffs Glucagon (Glucagon For Inj 1 Mg Vial) 1 mg SQ UD PRN; Protocol PRN Reason: Hypoglycemia Protocol Stop: 11/07/22 15:02 Glucose (Glucose 10 Tab/Tube) 4 - 8 tab PO UD PRN; Protocol PRN Reason: Hypoglycemia Treatment Stop: 11/07/22 15:02 Glucose (Glucose 40% Gel 15 Gm Tube) 15 - 30 gm PO UD PRN; Protocol PRN Reason: Hypoglycemia Protocol Stop: 11/07/22 15:02 Furosemide 100 mg/ Dextrose 100 mls @ 20 mls/hr IV .Q5H [facility] Stop: 11/17/22 15:14 Last Admin: 10/22/22 13:34 Dose: 20 mg/hr, 20 mls/hr Insulin Aspart (Insulin Aspart Per Unit Charge) 0 units SC ACHS [facility] Stop: 11/07/22 16:29 Last Admin: 10/22/22 13:04 Dose: 4 units Insulin Glargine (Lantus Per Unit Charge) 2 units SQ BID [facility] Stop: 11/15/22 09:59 Last Admin: 10/22/22 09:08 Dose: 2 units Isosorbide Mononitrate (Isosorbide [place] [facility] Extended Rel 30 Mg Tabcr) 90 mg PO QAM [facility] Stop: 11/07/22 15:14 Last Admin: 10/22/22 07:57 Dose: 90 mg Melatonin (Melatonin 3 Mg Tab) 6 mg PO HS [facility] Stop: 11/11/22 20:59 Last Admin: 10/21/22 21:21 Dose: 6 mg Miscellaneous (Carbohydrates For Hypoglycemia ) 15 - 30 gm PO UD PRN PRN Reason: Hypoglycemia Protocol Stop: 11/07/22 15:02 Last Admin: 10/16/22 07:00 Dose: 15 gm Nystatin (Nystatin Powder 15gm Btl) 1 appln EXT BID PRN PRN Reason: Affected Skin Folds Stop: 11/09/22 23:52 Last Admin: 10/11/22 21:07 Dose: 1 appln Oxycodone HCl (Oxycodone Hcl Ir 5 Mg Tab (Immediate Release)) 5 mg PO Q4H PRN PRN Reason: Pain Stop: 10/22/22 18:27 Last Admin: 10/10/22 14:04 Dose: 5 mg Polyethylene Glycol (Polyethylene (Miralax) 17 Gm Pack) 17 gm PO DAILY [facility] Stop: 11/10/22 14:44 Last Admin: 10/16/22 09:53 Dose: Not Given Simvastatin (Simvastatin 20 Mg Tab) 20 mg PO HS [facility] Stop: 11/07/22 20:59 Last Admin: 10/21/22 19:30 Dose: 20 mg Sodium Chloride (Sodium Chlor 7% 4 Ml Neb) 4 ml NEB BIDR [facility] Stop: 11/07/22 18:59 Last Admin: 10/22/22 08:20 Dose: 4 ml Umeclidinium/Vilanterol (Umeclidinium/Vilanterol 62.5/25mcg 7 Puffs/Inhaler) 1 puffs INH DAILY [facility] Stop: 11/07/22 15:14 Last Admin: 10/22/22 07:58 Dose: 1 puffs PG Care Time/CCT Total # of Minutes Spent Total Time Spent with Patient: Total time spent is greater than 50% in coordination of care (as documented) at patient's floor/unit and/or counseling patient: Coding Level of Care Code 83366 SUB INP/OBS CARE 3/50MIN Diagnoses Acute on chronic heart failure with preserved ejection fraction I50.33 Aortic stenosis I35.0 Atrial fibrillation I48.91 Pacemaker Z95.0 Mitral regurgitation I34.0 CAD (coronary artery disease) I25.10
[2022-10-22] MEDS ORDERED: acetaZOLAMIDE 500 MG in SYRINGE 0 ML IV ONE (14:30)
[2022-10-22 17:32] LABS: BUN Creatinine Ratio 36.2 (10-20); Calcium 9.3 mg/dl (8.6-10.3); Creatinine Clr Calc Pharmacy 30.5 ml/min; Est GFR (African American) 36.1 ml/min; Est GFR (Non-African American) 31.2 ml/min; Potassium 3.2 mmol/L (3.5-5.1)
[2022-10-22] MEDS ORDERED: POTASSIUM CHLORIDE CRTAB 20 MEQ TABCR PO ONE (17:50)
[2022-10-22] MEDS: ACETAMINOPHEN 325 MG TAB PO PRN (19:00)
[2022-10-22] MEDS: SIMVASTATIN 20 MG TAB PO SCH (19:50)
[2022-10-22] MEDS: MELATONIN 3 MG TAB PO SCH (21:18)
[2022-10-23] MEDS: ACETAMINOPHEN 325 MG TAB PO PRN (01:37)
[2022-10-23] MEDS: FUROSEMIDE 100 MG in DEXTROSE 5% 90 ML IV SCH ×2 (03:48→08:46)
[2022-10-23 06:53] LABS: Hematocrit (blood only) 30.4 % (37.0-47.0); Hemoglobin 9.4 g/dl (12.0-16.0); Mean Corpuscular Hemoglobin 26.6 pg (25.0-34.0); Mean Corpuscular Hgb Conc 30.9 g/dL (32.0-36.0); Mean Corpuscular Volume 86.1 fL (80.0-100.0); Mean Platelet Volume 10.7 fL (9.4-12.4); Platelet Count 161 K/uL (130-400); RDW Coefficient of Variation 15.6 % (11.5-14.5); RDW Standard Deviation 48.8 fL (36.4-46.3); Red Blood Count 3.53 M/uL (4.20-5.40); White Blood Count 5.11 K/ul (4.8-10.8)
[2022-10-23 07:28] LABS: BUN Creatinine Ratio 34.4 (10-20); Calcium 9.1 mg/dl (8.6-10.3); Creatinine Clr Calc Pharmacy 30.7 ml/min; Est GFR (African American) 36.4 ml/min; Est GFR (Non-African American) 31.4 ml/min; Potassium 3.4 mmol/L (3.5-5.1)
[2022-10-23] MEDS: ALBUT/IPRATROP 3MG/0.5MG NEB 3 ML VIAL NEB SCH (07:28)
[2022-10-23] MEDS: SODIUM CHLOR 7% 4 ML NEB NEB SCH (07:28)
[2022-10-23] MEDS ORDERED: POTASSIUM CHLORIDE CRTAB 20 MEQ TABCR PO ONE (07:30)
[2022-10-23] MEDS: ATENOLOL 50 MG TABLET PO SCH (07:54)
[2022-10-23] MEDS: APIXABAN 5 MG TABLET PO SCH (07:54)
[2022-10-23] MEDS: ISOSORBIDE MONO EXTENDED REL 30 MG TABCR PO SCH (07:55)
[2022-10-23] MEDS: FLUTICASONE FUROATE 100MCG 14 PUFFS/INHALER INH SCH (07:56)
[2022-10-23] MEDS: UMECLIDINIUM/VILANTEROL 62.5/25MCG 7 PUFFS/INHALER INH SCH (07:57)
[2022-10-23] MEDS: INSULIN ASPART PER UNIT CHARGE SC SCH (08:45)
[2022-10-23] MEDS: LANTUS PER UNIT CHARGE SQ SCH (08:46)
--- NOTE | 2022-10-23 10:20 | Discharge Summary ---
Date of Service October 23, 2022 Admission HPI Per Admitting Provider Cammy Zhu is an 82 year old female who presents to the ER with shortness of breath. She was recently admitted to [facility] from September 10 to September 22 due to acute on chronic diastolic heart failure. She underwent right sided thoracentesis on September 17 with 1450ml serous fluid removed consistent with heart failure. She was being diuresed with Lasix 40mg IV BID during that admission but also required some acetazolamide for contraction alkalosis. She reports feeling well since discharge but just getting progressively slowly worse over the last 3 days. No fever, chills, cough, nasal congestion, sinus pain. She has been taking her Lasix 40mg PO BID and no change in her diet. Leg swelling has also been increasing over the time frame and both legs with the swelling have become very painful. Admission Exam Per Admitting Provider Constitutional: WD/WN, vitals as above no acute distress Eyes: PERRL, conjunctivae normal, anicteric sclerae ENMT: external ear and nose normal, oropharynx normal Respiratory: + respiratory distress, + labored breathing and + uses accessory muscles; expiratory phase not prolonged Auscultation: + wheezes (mild expiratory wheezing); no crackles, no rales and no rhonchi Cardiovascular: Rate/Rhythm: regular rate and regular rhythm Heart Sounds: + murmur (BENNY LUSB 3/6) Extremities: normal capillary refill, + calf tenderness (bilateral) and + pedal edema (2+ pitting b/l equal to abdomen) Gastrointestinal (Abdomen): normal bowel sounds, soft, nontender, no hepatosplenomegaly Musculoskeletal: no cyanosis or clubbing, extremities motor strength 5/5 Skin: no rashes, warm and dry (no areas of cellulitis noted) Neurologic: moves all extremities and awake; not confused Psychiatric: A+Ox3, euthymic affect Genitourinary: no CVA tenderness Principal Diagnosis acute on chronic HFpEF Discharge Exam Constitutional: well appearing, no acute distress HEENT: normocephalic, no conjunctival injection CV: regular rhythm, regular rate, systolic murmur noted, 3+ bilateral LE edema up to knees Respiratory: Clear to auscultation bilaterally. No rhonchi, wheezes, or crackles. No increased work of breathing MSK: no gross deformities noted Skin: warm, dry, no rashes Neuro: alert, oriented, no FND noted Discharge Data Allergies Allergy/AdvReac Type Severity Reaction Status Date / Time chlorthalidone Allergy Severe Swelling Verified 09/25/22 11:21 of Lip/Tongue/Throat Penicillins Allergy Severe Swelling Verified 09/25/22 11:21 of Lip/Tongue/Throat MANDEEP Inhibitors Allergy Unknown Unknown Verified 09/25/22 11:21 trazodone Allergy Unknown Unknown Verified 09/25/22 11:21 Consultations 10/08/22 12:08 ED Decision to Admit Stat 10/09/22 06:32 Consult Cardiology Routine 10/19/22 16:40 [facility] Referral Routine Hospital Course (1) Acute on chronic heart failure with preserved ejection fraction: Pt is a 82 y/o female with an extensive PMHx including CAD ([place] in 1992), permanent atrial fibrillation, multiple prior DVTs on Xarelto, diastolic CHF, tachycardia-bradycardia syndrome (May 2016, s/p pacemaker), DM 2, COPD, ast hma, hyperlipidemia, and hypertension who presented to the ER with increased shortness of breathing and increased oxygen requirement found to be fluid overloaded with need for diuresis. Acute on chronic HFpEF - Continue low Na diet, fluid restriction 1500 mL - s/p lasix drip; negative ~14L during this admission. Cr has remained stable - s/p metolazone 5mg on 10/18, diuril dose 10/20, acetazolamide 500 mg 10/22 - continue to monitor BMP daily (has required repeated potassium repletion while on lasix drip) - Weight today is 89.9 kg (done from 98.2 kg upon admission) - barbosa removed prior to discharge - discharged to SNF with bumex 1mg BID; suspect that pt is reaching her dry state and will need a decrease in her diuretic within the next few days to week Acute on chronic respiratory failure, COPD with asthma - Worsening oxygenation status in setting of HFpEF exacerbation; improved oxygenation with diuresis, now back at baseline oxygen requirement (2-3L) - Continue home ICS and LAMA/LABA for obstructive airway disease; continue albuterol and NS nebs (added d/t wheezing) Afib - Rate controlled at present; ventricularly paced - continue Eliquis 5 mg BID, atenolol 50 mg qAM T2DM - HbA1C 5.5 in August, no need to repeat - may resume home regimen Leg pain -Likely neuropathic from diabetes worsened due to leg edema chronic and acute worsening from fluid overload -Pain improving as diuresis continues Sleeping difficulties - Increased anxiety with sons going through medical challenges. Having a hard time falling asleep and staying asleep even with at home CPAP. - Continue melatonin 6 mg VTE ppx: Eliquis Diet: Low Na, Low K, heart healthy, T2DM, fluid restrict 1500 mL Disposition: [facility] Code status: Full (2) Aortic stenosis: (3) Sleep difficulties: (4) Pedal edema: Total Time Total Time Spent Total Time Spent (In Minutes): <30 Discharge Plan Discharge Items Patient Disposition: Transfer [facility] Reason For Visit: ACUTE HEART FAILURE WITH PRESERVED EJECTION FRACTI Discharge Diagnosis: acute on chronic heart failure with preserved EF Activity: Per Instructions section Non-emergency contact: Primary Care Provider Call non-emergency contact if: you have any medication questions and your symptoms worsen Follow-up/Referrals: Dagoberto Headley MD [Primary Care Provider] - Diet: Carb Consistent or DM2 and Low Sodium (2gm) Fluids: 1500ml (6 cups) Diet Texture: Dental soft (bite-sized) Addtl Attending Provider Instructions: Pt is a 82 y/o female with an extensive PMHx including CAD ([place] in 1992), permanent atrial fibrillation, multiple prior DVTs on Xarelto, diastolic CHF, tachycardia-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 Acute on chronic HFpEF - Continue low Na diet, diabetic diet, fluid restriction 1500 mL - s/p metolazone 5mg on 10/18, diuril dose 10/20, acetazolamide 500 mg 10/22 - s/p lasix drip; negative ~14L during this admission. Cr has remained stable - continue to monitor BMP daily (has required repeated potassium repletion while on lasix drip) - Weight today is 89.9 kg (done from 98.2 kg upon admission) - barbosa removed prior to discharge - discharged to SNF with bumex 1mg BID; suspect that pt is reaching her dry state and will need a decrease in her diuretic within the next few days to weeks Acute on chronic respiratory failure, COPD with asthma - Worsening oxygenation status in setting of HFpEF exacerbation; improved oxygenation with diuresis, now back at baseline oxygen requirement (2-3L) - Continue home ICS and LAMA/LABA for obstructive airway disease; continue albuterol and NS nebs (added d/t wheezing) Afib - Rate controlled at present; ventricularly paced - continue Eliquis 5 mg BID, atenolol 50 mg qAM T2DM - HbA1C 5.5 in August, no need to repeat - may resume home regimen Leg pain -Likely neuropathic from diabetes worsened due to leg edema chronic and acute worsening from fluid overload -Pain improving as diuresis continues Sleeping difficulties - Increased anxiety with sons going through medical challenges. Having a hard time falling asleep and staying asleep even with at home CPAP. - Continue melatonin 6 mg VTE ppx: Eliquis Diet: Low Na, Low K, heart healthy, T2DM, fluid restrict 1500 mL Disposition: [facility] Code status: Full Pending Studies at Discharge: No Stand-Alone Forms: My [facility] Skilled Items Patient informed of condition?: Yes DNR: No Discharge Level of Care: Skilled Communicable Disease: No Discharge Prognosis: Improving Lines: None Urinary Catheter: No Medications and DC Order Prescriptions: New bumetanide 1 mg tablet 1 mg PO BID 14 Days Qty: 28 0RF Continued isosorbide mononitrate 30 mg tablet extended release 24 hr 90 mg PO QAM Qty: 270 3RF Eliquis 5 mg tablet 5 mg PO BID 30 Days Qty: 60 1RF amlodipine 10 mg tablet 10 mg PO DAILY Qty: 90 3RF cholecalciferol (vitamin D3) 50 mcg (2,000 unit) capsule 50 mcg PO BID Qty: 30 0RF nitroglycerin 0.4 mg tablet, sublingual 0.4 mg SL UD PRN (Reason: chest pain) Qty: 20 3RF Rx Instructions: take 5 minutes apart, up to 3 doses in 24H. Januvia 25 mg tablet 25 mg PO QAM Qty: 90 3RF atenolol 50 mg tablet 50 mg PO QAM Qty: 90 3RF simvastatin 20 mg tablet 20 mg PO HS Qty: 90 3RF albuterol sulfate [Ventolin HFA] 90 mcg/actuation HFA aerosol inhaler 2 puff INH Q4H PRN (Reason: shortness of breath or wheezing) Qty: 18 3RF Trelegy Ellipta 100-62.5-25 mcg blister with device 1 inh inhalation DAILY Qty: 3 2RF buspirone 5 mg tablet 5 mg PO BID PRN (Reason: anxiety) Qty: 60 5RF cranberry conc-ascorbic acid 4,200-20 mg capsule 1 cap PO DAILY calcium citrate-vitamin D3 250 mg calcium- 200 unit tablet 1 tab PO QAM multivitamin tablet 1 tab PO QAM sodium chloride 7 % Solution For Nebulization 4 ml NEB BIDR 30 Days Qty: 120 2RF (DME) nebulizers [facility] See Rx Instructions .Route Qty: 1 0RF Rx Instructions: As directed with hypertonic saline nebulized solution Discontinued furosemide 40 mg tablet 40 mg PO BID 30 Days Qty: 60 0RF Discharge Orders: Discharge Order (Routine); Ordered 10/23/22 Ordered By: Samantha Beltran/Other Patient Handouts: High Blood Sugar (Hyperglycemia), Managing Type 2 Diabetes Admission Data Admit Date/Time: 10/08/22 12:49 Attending Provider: Mckay Avery Admit Provider: Max Morrison Primary Care Provider: Dagoberto Headley Other Providers: [facility] [place] ; Latoya Buckner [facility] ; [facility] ; Max Morrison ; Kirill Marcos ; Mckay Avery ; Sanjana Mayo Other Interventions: Discharge Summary Assessment (RN) Last Done: 10/23/22 11:12 Supervising Physician Co-Signing Physician Notes I personally examined the patient and verified all gamez points of history and exam, discussed case, and agree with decision making with Dr Leo feeling ok overall. d/w pt risk/benefit of ongoing lasix gtt vs switchign to (still aggressive) PO diuresis and follow BMP daily to every other day - anticipate eventually will be able to reduce dosing further vitals noted resting comfortably and appears innad heent nc at mmm breathing unlabored no accessory muscle use at rest. Skin shows no rashes no pallor or icterus. acute on chronic diastolic CHF - doing better. continue to diurese aggressively but with PO - close clinical and BMP f/u - but at this point risk/benefit appears to favor increased PT/OT at [facility] over ongoing lasix gtt inpatient - BMP daily to QOD, anticipate an ability to eventually down titrate diuresis - but stable for SNF otherwise as above Resident Activity Tracking Resident Involvement: Resident Care Provided Care Provided: Adult [facility]
--- NOTE | 2022-10-23 11:27 | Billing Data ---
Date of Service October 23, 2022 Coding Level of Care Code 45871 IN/OBS DISCH 30 MIN/LESS
== END 2022-10-23 11:47 | DRG 291 ==
LOC: ED 10:38 → 1E 12:49 → SUATTDRO 12:49 → 1E 13:24 → 2S 10-11 20:00 → 3N 10-13 18:43
DX: I13.0 Hypertensive heart and chronic kidney disease with heart failure and stage 1 through stage 4 chronic kidney disease, or unspecified chronic kidney disease; Z86.718 Personal history of other venous thrombosis and embolism; Z79.4 Long term (current) use of insulin; C64.9 Malignant neoplasm of unspecified kidney, except renal pelvis; E11.40 Type 2 diabetes mellitus with diabetic neuropathy, unspecified; I49.5 Sick sinus syndrome; N18.30 Chronic kidney disease, stage 3 unspecified; J96.21 Acute and chronic respiratory failure with hypoxia; K59.00 Constipation, unspecified; I25.2 Old myocardial infarction; Z95.0 Presence of cardiac pacemaker; E11.22 Type 2 diabetes mellitus with diabetic chronic kidney disease; J44.1 Chronic obstructive pulmonary disease with (acute) exacerbation; E87.5 Hyperkalemia; Z79.01 Long term (current) use of anticoagulants; Z88.0 Allergy status to penicillin; I48.21 Permanent atrial fibrillation; I08.1 Rheumatic disorders of both mitral and tricuspid valves; I50.33 Acute on chronic diastolic (congestive) heart failure

== ENCOUNTER 2022-11-03 09:07 | Inpatient (IN) ==
--- NOTE | 2022-11-03 09:40 | Emergency Department Note ---
History of Present Illness General Chief Complaint: Shortness of Breath/Dyspnea Time Seen by Provider: 11/03/22 09:08 History of Present Illness Provider Complaint: shortness of breath Onset (ago): week(s) (1) Consistency/Duration: + progressively worsening Relieved By: + upright position Exacerbated By: + lying flat Known history of: COPD and congestive heart failure Associated symptoms: + cough, + wheezing, + orthopnea and + chest congestion; no fever, no sputum production or no hemoptysis Related Data Home oxygen amount: 3 liters Home Medications Medication Instructions Recorded Confirmed Type calcium citrate 250 mg 1 tab PO QAM 11/07/18 11/03/22 History calcium-vitamin D3 5 mcg (200 unit) tablet cranberry concentrate-ascorbic 1 cap PO QAM 11/07/18 11/03/22 History acid 4,200 mg-20 mg capsule multivitamin 1 tab PO QAM 11/07/18 11/03/22 History cholecalciferol (vitamin D3) 50 50 mcg PO BID #30 caps 09/12/21 11/03/22 Rx mcg (2,000 unit) capsule nitroglycerin 0.4 mg sublingual 0.4 mg sublingual UD PRN chest 09/12/21 11/03/22 Rx tablet pain #20 tabs sitagliptin phosphate 25 mg tablet 25 mg PO QAM #90 tabs 09/12/21 11/03/22 Rx (Januvia) atenolol 50 mg tablet 50 mg PO QAM #90 tabs 01/10/22 11/03/22 Rx simvastatin 20 mg tablet 20 mg PO HS #90 tabs 01/10/22 11/03/22 Rx albuterol sulfate 90 mcg/actuation 2 puff inhalation Q4H PRN 02/21/22 11/03/22 Rx aerosol inhaler (Ventolin HFA) shortness of breath or wheezing #18 grams fluticasone fur. 100 mcg-umeclid 1 inh inhalation DAILY #3 Inhalers 02/21/22 11/03/22 Rx 62.5 mcg-vilant 25 mcg inhalat.powder (Trelegy Ellipta) isosorbide mononitrate 30 mg 90 mg PO QAM #270 tabs 08/01/22 11/03/22 Rx tablet,extended release 24 hr apixaban 5 mg tablet (Eliquis) 5 mg PO BID 30 days #60 tabs 09/05/22 11/03/22 Rx nebulizers #1 ea 09/22/22 09/25/22 Rx amlodipine 10 mg tablet 10 mg PO DAILY #90 tabs 09/25/22 11/03/22 Rx buspirone 5 mg tablet 5 mg PO BID PRN anxiety #60 tabs 09/25/22 11/03/22 Rx bumetanide 1 mg tablet 1 mg PO BID 14 days #28 tabs 10/23/22 11/03/22 Rx acetaminophen 500 mg tablet 1,000 mg PO TID pain 11/03/22 11/03/22 History bisacodyl 10 mg rectal suppository 10 mg ID DAILY PRN On day 4 of no 11/03/22 11/03/22 History (Dulcolax (bisacodyl)) BM in the morning - Call docusate sodium 100 mg capsule 100 mg PO DAILY PRN On day 2 of no 11/03/22 11/03/22 History (Colace) BM in the morning levofloxacin 750 mg tablet 750 mg PO .EVERY 48 HOURS 11/03/22 11/03/22 History melatonin 1 mg tablet 2 mg PO HS 11/03/22 11/03/22 History nystatin 100,000 unit/gram topical 1 applic topical .EVERY SHIFT for 11/03/22 11/03/22 History powder intertrigo polyethylene glycol 3350 17 17 g PO DAILY PRN Give on day 3 of 11/03/22 11/03/22 History gram/dose oral powder (Miralax) no BM tramadol 50 mg tablet 50 mg PO Q6H PRN Severe Pain 11/03/22 11/03/22 History (Scale Score 7-10) Allergies Allergy/AdvReac Type Severity Reaction Status Date / Time chlorthalidone Allergy Severe Swelling Verified 11/03/22 10:43 of Lip/Tongue/Throat Penicillins Allergy Severe Swelling Verified 11/03/22 10:43 of Lip/Tongue/Throat MANDEEP Inhibitors Allergy Unknown Unknown Verified 11/03/22 10:43 trazodone Allergy Unknown Unknown Verified 11/03/22 10:43 Past Med/Surg History Medical History Acute anterior epistaxis Acute lower gastrointestinal bleeding Acute posterior epistaxis Anemia Anticoagulant long-term use Atrial fibrillation permanent, now s/p PPM (2017) Bradycardia CAD (coronary artery disease) [place] (1992) CHF (congestive heart failure) follows with [facility] (Dr. Marcos) Chronic diastolic CHF (congestive heart failure) Chronic kidney disease, stage 3 follows with nephrology ([facility]/Dr. Richard) Chronic respiratory failure with hypoxia COPD (chronic obstructive pulmonary disease) 2L HS + occasionally PRN, follows with [facility] COPD with asthma COPD with emphysema Deep vein thrombosis B/L LE (1967), Diabetes mellitus, type 2 NIDDM Dysfunction of left eustachian tube Elevated troponin Encounter for pre-operative examination Encounter for pre-operative examination GI bleed Hearing deficit History of kidney cancer s/p L nephrectomy (1997) Hyperlipidemia controlled Hypertension controlled Insomnia Insomnia Intractable back pain Leg swelling Mixed conductive and sensorineural hearing loss of left ear with restricted hearing of right ear Osteoarthritis Osteoporosis Pacemaker Implanted 2016, [employer], last check 09/2019 Pulmonary nodule per records Restless leg syndrome Syncope UTI (urinary tract infection) Vitamin D deficiency Surgical History History of cardiac cath 10+ years ago, no stents History of cholecystectomy History of colonoscopy History of hip surgery R/L NABEEL History of myringotomy + Left ear tube removal: 06/09/19: LMA#4 atraumatic at [facility] History of nephrectomy left History of vaginal hysterectomy Hx of bilateral cataract extraction Status post placement of cardiac pacemaker 2016 Family History Brother Hypertension Mother Cardiac disorder Sister Lung cancer Aunt Lung cancer Father Pneumonia Unknown Family history of allergies Environmental allergies Denies family history of Ovarian cancer Prostate cancer Myocardial infarction Breast cancer Colorectal cancer Social History Smoking Status: Never smoker Tobacco Type: Cigarettes Age Started Using Tobacco: 26; Age Quit Using Tobacco: 55; packs per day: 1; Cigarettes Per Day: 20; Second Hand Exposure: No; Do You Dip or Chew Tobacco: No; Hx Alcohol Use: No Hx Substance Use: No Preferred Language: Finnish Communication Ability: Effective Visual Impairment: No Limitations 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 Beliefs That Will Affect Care: None marital status: / Current Living Situation: Alone Current Living Situation Comment: lives at [facility], is there for rehab current occupational status: retired current occupation: worked at [employer] Other Information That Helps Us Care for You: No Feels Safe at Home: Yes Safety Concerns: Feels Safe At This Time Childhood Exposure to Second-Hand Smoke: No Diet: other Diet Comment: Low sugar/ Sugar free options when possible caffeine: Yes (2 cups of coffee daily ) Dental Care, Regularly: No Physical Activity Frequency: Daily Seatbelt Use: always Sunscreen Use: Yes Assistive Devices: Walker Assistive Devices Comment: uses walker to ambulate Physical Exam Vital Signs: Vital Signs - 24 hr 11/03/22 09:13 11/03/22 09:23 11/03/22 09:33 Temperature 36.5 C Temperature Source Oral Pulse Rate 71 61 Pulse Rate [Left F ritika] Pulse Rhythm Regular Pulse Strength Normal Respiratory Rate 20 Respiratory Effort / Characteristics Non-Labored Sponta neous Respiratory Depth Normal Respiratory Patter n Regular Blood Pressure 124/65 Blood Pressure [Le ft Arm] Blood Pressure Amina n 84 Blood Pressure Amina n [Left Arm] Blood Pressure Pos ition Lying Blood Pressure Pos ition [Left Arm] Pulse Oximetry 99 96 Oxygen Delivery Me thod Nasal Cannula Nasal Cannula Oxygen Flow Rate 3 3 Sepsis Recent Feve r Within 48 Hours No Sepsis New/Unexpla ined Change in Men alivia Status No Sepsis Action Take n by Nursing No Action Required 11/03/22 09:33 11/03/22 10:27 Temperature Temperature Source Pulse Rate 63 Pulse Rate [Left F ritika] 68 Pulse Rhythm Regular Pulse Strength Respiratory Rate 16 20 Respiratory Effort / Characteristics Respiratory Depth Respiratory Patter n Blood Pressure Blood Pressure [Le ft Arm] 106/49 L Blood Pressure Amina n Blood Pressure Amina n [Left Arm] 68 Blood Pressure Pos ition Blood Pressure Pos ition [Left Arm] Sitting Pulse Oximetry 96 97 Oxygen Delivery Me thod Nasal Cannula Oxygen Flow Rate 3 Sepsis Recent Feve r Within 48 Hours Sepsis New/Unexpla ined Change in Men alivia Status Sepsis Action Take n by Nursing Physical Exam: Physical Exam GENERAL: oriented to person, place, and time. appears well-developed and well- nourished. HENT: Exam performed. - Head: Normocephalic and atraumatic. EYES: Conjunctivae and EOM are normal. Right eye exhibits no discharge. Left eye exhibits no discharge. No scleral icterus. NECK: Normal range of motion. Neck supple. No JVD present. CV: Normal rate, regular rhythm, normal heart sounds and intact distal pulses. There is no peripheral edema. Palpable radial pulses bue. PULM/CHEST: Rales bilaterally. ABD: The abdomen is soft. There is no tenderness. NEURO: Motor and sensation grossly intact. SKIN: Skin is warm and dry. He is not diaphoretic. PSYCH: normal mood and affect. Behavior is normal. Judgment and thought content normal. Course Course 907: The patient was evaluated in room B5. A complete history and physical exam was performed Cardiac monitoring: An order was placed for continuous cardiac monitoring. The monitor shows a rate of 80 with sinus rhythm interpreted by me 1030: Vital signs stable on supplemental oxygen. Labs show an acute kidney injury, hyponatremia, increased BNP and troponin. Patient not reporting chest pain. Chest x-ray shows fluid overload and pulmonary edema. Patient will be admitted to the hospitalist team Dr. Morrison notified. Administered Medications Acetaminophen (Acetaminophen 500 Mg Tab) 1,000 mg PO TID [facility] Stop: 12/03/22 13:59 Last Admin: 11/03/22 13:45 Dose: 1,000 mg Documented By: DLF Carvedilol (Carvedilol 3.125 Mg Tab) 3.125 mg PO BIDM [facility] Stop: 12/03/22 16:59 Last Admin: 11/03/22 16:51 Dose: 3.125 mg Documented By: BHAVANA Furosemide 100 mg/ Dextrose 100 mls @ 10 mls/hr IV .Q10H [facility] Stop: 12/03/22 13:14 Last Admin: 11/03/22 14:36 Dose: 10 mg/hr, 10 mls/hr Documented By: BHAVANA Insulin Aspart (Insulin Aspart Per Unit Charge) 0 units SC ACHS [facility] Stop: 12/03/22 16:29 Last Admin: 11/03/22 16:47 Dose: 3 units Documented By: BHAVANA Co-signed By: RC Tramadol HCl (Tramadol Hcl 50 Mg Tablet) 50 mg PO Q6H PRN PRN Reason: Severe Pain (Scale Score 7-10) Stop: 12/03/22 12:39 Last Admin: 11/03/22 14:41 Dose: 50 mg Documented By: DLF Discontinued Medications Furosemide (Furosemide 40 Mg/4 Ml Vial) Confirm Administered Dose 80 mg IV .STK- MED ONE Stop: 11/03/22 11:32 Last Admin: 11/03/22 11:36 Dose: 80 mg Documented By: DYAN Medical Decision Making Laboratory Data Attestation: I reviewed the patient's lab results. 11/03/22 09:28 11/03/22 09:28 Lab Results 11/03/22 11/03/22 11/03/22 Range/Units 09:28 09:28 09:28 WBC 8.05 (4.8-10.8) K/ul RBC 3.65 L (4.20-5.40) M/uL Hgb 9.4 L (12.0-16.0) g/dl Hct 28.6 L (37.0-47.0) % MCV 78.4 L (80.0-100.0) fL MCH 25.8 (25.0-34.0) pg MCHC 32.9 (32.0-36.0) g/dL RDW Std Deviation 44.1 (36.4-46.3) fL RDW Coeff of Stephane 15.5 H (11.5-14.5) % Plt Count 234 (130-400) K/uL MPV 9.9 (9.4-12.4) fL Immature Gran % (Auto) 0.7 % Neut % (Auto) 79.2 % Lymph % (Auto) 7.8 % Park % (Auto) 10.3 % Eos % (Auto) 1.6 % Baso % (Auto) 0.4 % Neut # (Auto) 6.37 (1.40-6.50) K/uL Lymph # (Auto) 0.63 L (1.2-3.4) K/uL Park # (Auto) 0.83 H (0.11-0.59) K/uL Eos # (Auto) 0.13 (0-0.50) K/uL Baso # (Auto) 0.03 (0-0.2) K/uL Immature Gran # (Auto) 0.06 (0.01-0.20) K/uL Absolute Nucleated RBC 0.10 (0-0.12) K/uL Nucleated RBC % (auto) 1.2 % PT (9.0-12.0) Seconds INR (0.9-1.1) APTT (21.0-31.0) Seconds PTT Ratio Sodium 126 L (136-145) mmol/L Potassium 5.1 (3.5-5.1) mmol/L Chloride 85 L (98-107) mmol/L Carbon Dioxide 32 (21-32) mmol/L Anion Gap 9 (3-11) BUN 76 H (6-23) mg/dl Creatinine 2.91 H (0.6-1.2) mg/dl Est Cr Clr Drug Dosing 16.5 ml/min Est GFR ( Amer) 16.5 ml/min Est GFR (Non-Af Amer) 14.2 ml/min BUN/Creatinine Ratio 26.1 H (10-20) Glucose 102 H (70-99(Fasting)) mg/dl Calcium 9.4 (8.6-10.3) mg/dl Total Bilirubin 1.0 (0.2-1.0) mg/dl Direct Bilirubin 0.4 H (0-0.2) mg/dl AST 56 H (13-39) U/L ALT 37 (7-52) U/L Alkaline Phosphatase 45 (34-104) U/L Troponin I High Sens 41.3 H (0-14) pg/ml B-Natriuretic Peptide > 4700 H (0-100) pg/ml Total Protein 6.4 (6.0-8.3) gm/dl Albumin 3.5 (3.4-5.0) gm/dl Lipase 13 (11-82) U/L SARS-CoV-2, RNA, NAAT (NEGATIVE) 11/03/22 11/03/22 Range/Units 09:28 09:43 WBC (4.8-10.8) K/ul RBC (4.20-5.40) M/uL Hgb (12.0-16.0) g/dl Hct (37.0-47.0) % MCV (80.0-100.0) fL MCH (25.0-34.0) pg MCHC (32.0-36.0) g/dL RDW Std Deviation (36.4-46.3) fL RDW Coeff of Stephane (11.5-14.5) % Plt Count (130-400) K/uL MPV (9.4-12.4) fL Immature Gran % (Auto) % Neut % (Auto) % Lymph % (Auto) % Park % (Auto) % Eos % (Auto) % Baso % (Auto) % Neut # (Auto) (1.40-6.50) K/uL Lymph # (Auto) (1.2-3.4) K/uL Park # (Auto) (0.11-0.59) K/uL Eos # (Auto) (0-0.50) K/uL Baso # (Auto) (0-0.2) K/uL Immature Gran # (Auto) (0.01-0.20) K/uL Absolute Nucleated RBC (0-0.12) K/uL Nucleated RBC % (auto) % PT 18.9 H (9.0-12.0) Seconds INR 1.8 H (0.9-1.1) APTT 37.3 H (21.0-31.0) Seconds PTT Ratio 1.3 Sodium (136-145) mmol/L Potassium (3.5-5.1) mmol/L Chloride (98-107) mmol/L Carbon Dioxide (21-32) mmol/L Anion Gap (3-11) BUN (6-23) mg/dl Creatinine (0.6-1.2) mg/dl Est Cr Clr Drug Dosing ml/min Est GFR ( Amer) ml/min Est GFR (Non-Af Amer) ml/min BUN/Creatinine Ratio (10-20) Glucose (70-99(Fasting)) mg/dl Calcium (8.6-10.3) mg/dl Total Bilirubin (0.2-1.0) mg/dl Direct Bilirubin (0-0.2) mg/dl AST (13-39) U/L ALT (7-52) U/L Alkaline Phosphatase (34-104) U/L Troponin I High Sens (0-14) pg/ml B-Natriuretic Peptide (0-100) pg/ml Total Protein (6.0-8.3) gm/dl Albumin (3.4-5.0) gm/dl Lipase (11-82) U/L SARS-CoV-2, RNA, NAAT NEGATIVE (NEGATIVE) Imaging Data Attestation: I personally reviewed and interpreted this imaging study as fol lows: My Impression: Chest x-ray: Cardiomegaly with pulmonary edema Radiologist's Impression: Chest X-Ray 11/03/22 09:10 XR chest 1V portable CLINICAL HISTORY: Chest pain, nonspecific TECHNIQUE: Single frontal radiograph of the chest was obtained. Comparison: Comparison is made to chest radiograph 10/16/2022 FINDINGS: Implanted pacemaker is seen. Cardiomegaly is noted. The aortic arch is calcified. Prominence and cephalization of the vasculature is seen. Right lower lung airspace opacity is again seen. Small bilateral pleural effusions are seen. IMPRESSION: 1. Cardiomegaly and mild pulmonary edema. 2. Small bilateral pleural effusions. ACT 112: Negative or not required by law. Electronically signed by: Dustin Danielson M.D. 11/03/2022 10:05 AM ECG Data Attestation: I personally reviewed and interpreted this ECG as follows: Interpretation: Paced rhythm with rate of 61. QRS 204 QTc 509. No ectopy. [facility] Narrative 0908: The patient was evaluated in room B5. A complete history and physical exam was performed Cardiac monitoring: An order was placed for continuous cardiac monitoring. The monitor shows a rate of 80 with sinus rhythm interpreted by me 1030: Vital signs stable on supplemental oxygen. Labs show an acute kidney injury, hyponatremia, increased BNP and troponin. Patient not reporting chest pain. Chest x-ray shows fluid overload and pulmonary edema. Patient will be admitted to the hospitalist team Dr. Morrison notified. Impression & Plan Pulmonary edema, CHF (congestive heart failure), YUMIKO (acute kidney injury), Hyponatremia Discharge Plan Visit Data Chief Complaint: Shortness of Breath/Dyspnea ED Provider: Phill Bae Discharge Problem: Pulmonary edema, CHF (congestive heart failure), YUMIKO (acute kidney injury), Hyponatremia Patient Disposition: Admitted As Inpatient Discharge Instructions Interventions: ED Discharge Assessment Last Done: 11/03/22 12:20
[2022-11-03 10:01] LABS: Basophils # (auto) 0.03 K/uL (0-0.2); Basophils % (auto) 0.4 %; Eosinophils # (auto) 0.13 K/uL (0-0.50); Eosinophils % (auto) 1.6 %; Hematocrit (blood only) 28.6 % (37.0-47.0); Hemoglobin 9.4 g/dl (12.0-16.0); Immature Granulocytes # (auto) 0.06 K/uL (0.01-0.20); Immature Granulocytes % (auto) 0.7 %; Lymphocytes # (auto) 0.63 K/uL (1.2-3.4); Lymphocytes % (auto) 7.8 %; Mean Corpuscular Hemoglobin 25.8 pg (25.0-34.0); Mean Corpuscular Hgb Conc 32.9 g/dL (32.0-36.0); Mean Corpuscular Volume 78.4 fL (80.0-100.0); Mean Platelet Volume 9.9 fL (9.4-12.4); Monocytes # (auto) 0.83 K/uL (0.11-0.59); Monocytes % (auto) 10.3 %; Neutrophils # (auto) 6.37 K/uL (1.40-6.50); Neutrophils % (auto) 79.2 %; Nucleated RBC % (auto) 1.2 %; Platelet Count 234 K/uL (130-400); RDW Coefficient of Variation 15.5 % (11.5-14.5); RDW Standard Deviation 44.1 fL (36.4-46.3); Red Blood Count 3.65 M/uL (4.20-5.40); White Blood Count 8.05 K/ul (4.8-10.8)
[2022-11-03 10:05] LABS: BUN Creatinine Ratio 26.1 (10-20); Calcium 9.4 mg/dl (8.6-10.3); Creatinine Clr Calc Pharmacy 16.5 ml/min; Est GFR (African American) 16.5 ml/min; Est GFR (Non-African American) 14.2 ml/min; Potassium 5.1 mmol/L (3.5-5.1)
--- NOTE | 2022-11-03 10:08 | XRay Report ---
XR chest 1V portable CLINICAL HISTORY: Chest pain, nonspecific TECHNIQUE: Single frontal radiograph of the chest was obtained. Comparison: Comparison is made to chest radiograph 10/16/2022 FINDINGS: Implanted pacemaker is seen. Cardiomegaly is noted. The aortic arch is calcified. Prominence and ceph alization of the vasculature is seen. Right lower lung airspace opacity is again seen. Small bilatera l pleural effusions are seen. IMPRESSION: 1. Cardiomegaly and mild pulmonary edema. 2. Small bilateral pleural effusions. ACT 112: Negative or not required by law. Electronically signed by: Dustin Danielson M.D. 11/03/2022 10:05 AM
[2022-11-03 10:13] LABS: Troponin I High Sensitivity 41.3 pg/ml (0-14)
[2022-11-03 10:16] LABS: INR 1.8 (0.9-1.1); Partial Thromboplastin Ratio 1.3; Partial Thromboplastin Time 37.3 Seconds (21.0-31.0); Prothrombin Time 18.9 Seconds (9.0-12.0)
[2022-11-03] MEDS ORDERED: FUROSEMIDE 40 MG/4 ML VIAL IV STA (10:55)
[2022-11-03] MEDS ORDERED: FUROSEMIDE 40 MG/4 ML VIAL IV ONE (11:31)
--- NOTE | 2022-11-03 11:40 | History & Physical Report ---
Date of Service November 03, 2022 Assessment & Plan (1) Acute on chronic heart failure with preserved ejection fraction: Plan: Due to under diuresis as Bumex 1mg PO BID was reduced to daily due to "worsening renal function", likely to little too late after increasing back to 2mg PO daily for the last few days. She required high doses of diuresis during her admissions requiring intermittent chlorothiazide/metolazone/acetazolamide and up to Lasix 240mg/day IV drip. She was on Lasix IV 240mg/day on day of discharge; discharged on 1mg PO BID with worsening renal function suspect due to under diuresis therefore suspect she would have failed even on this dose and she failed on Lasix 40mg PO BID previously. She was also off amlodipine for her last admission and I am unclear why it was continued on discharge - possible also contributing towards leg edema independent of heart failure. Amlodipine discontinued. Switch atenolol for carvedilol (improved outcomes in heart failure)- > up titrate as BP/HR allow Strict I&Os, daily weight Low Na diet Fluid restrict 1500ml Lasix 80mg IV now then will restart Lasix drip at 10mg/hr, will consider increasing to 20mg/hr to aim 1-2L net negative/day (2) Aortic stenosis: Plan: Moderate (with moderate mitral regurg therefore likely forard ejection fraction likely significantly lower than 50-55% seen. (3) YUMIKO (acute kidney injury): Plan: Secondary to poor effective forward flow from heart failure. Single kidney. Renal US performed last admission, if improving will defer further imaging. Repeat Cr in AM (4) Diabetes mellitus, type 2: Plan: Hemoglobin A1C 5.5 in August, no need to repeat as < 3 months - unclear if she really requires any treatment Start Lantus 5 nits HS (hold for glucose < 120. Novolog: --Goal BSG Range: Low 110 mg/dL, High 140 mg/dL --Correction Factor: 45 mg/dL/unit --Carbohydrate ratio = 15 g/unit --BSGs ACHS if eating, q6h if npo (5) Atrial fibrillation: Plan: Currently ventricular paced Eliquis (reduced dose due to age and Cr) for anticoagulation switched to carvedilol for rate control due to heart failure (6) CAD (coronary artery disease): Plan: Continue Eliquis, carvedilol, ISMN, simvastatin Plan VTE Prophylaxis - Eliquis (renal dosing) Diet - Low Na, heart healthy, fluid restrict Disposition - admit PCU Admission and Anticipated Discharge Date Admission Date: November 03, 2022 History of Present Illness Chief Complaint: Shortness of breath, leg swelling Primary Care Provider: Dagoberto Headley MD Cammy Zhu is an 82 year old female with chronic heart failure with preserved ejection fraction who presents to the ER from [facility] due to weight gain, leg swelling and shortness of breath. She has mostly been in hospital since August 05 with repeated episodes of heart failure requiring high doses of diretics. She was most recently discharged on October 23 to [facility]. On day of discharge she was on 240mg/day of intravenous Lasix with intermittent doses or Diuril, metolazone and acetazolamide. She was discharged on Bumex 1mg PO BID. This was reduced to 1mg PO daily at [facility] after her renal function got worse. Her son also reports she may have not been on a low salt diet for the first week. After 6lb of gained fluid and treatment for pneumonia with Levaquin based on a worsening shortness of breath and a CXR her Bumex was increased back to 2mg PO daily. Unfortunately she continued to gain weight (up 10 lb from discharge) therefore she was transported back to the ER for ongoing management. Allergies Allergy/AdvReac Type Severity Reaction Status Date / Time chlorthalidone Allergy Severe Swelling Verified 11/03/22 10:43 of Lip/Tongue/Throat Penicillins Allergy Severe Swelling Verified 11/03/22 10:43 of Lip/Tongue/Throat MANDEEP Inhibitors Allergy Unknown Unknown Verified 11/03/22 10:43 trazodone Allergy Unknown Unknown Verified 11/03/22 10:43 Home Medications Medication Instructions Recorded Confirmed Type calcium citrate 250 mg 1 tab PO QAM 11/07/18 11/03/22 History calcium-vitamin D3 5 mcg (200 unit) tablet cranberry concentrate-ascorbic 1 cap PO QAM 11/07/18 11/03/22 History acid 4,200 mg-20 mg capsule multivitamin 1 tab PO QAM 11/07/18 11/03/22 History cholecalciferol (vitamin D3) 50 50 mcg PO BID #30 caps 09/12/21 11/03/22 Rx mcg (2,000 unit) capsule nitroglycerin 0.4 mg sublingual 0.4 mg sublingual UD PRN chest 09/12/21 11/03/22 Rx tablet pain #20 tabs sitagliptin phosphate 25 mg tablet 25 mg PO QAM #90 tabs 09/12/21 11/03/22 Rx (Januvia) atenolol 50 mg tablet 50 mg PO QAM #90 tabs 01/10/22 11/03/22 Rx simvastatin 20 mg tablet 20 mg PO HS #90 tabs 01/10/22 11/03/22 Rx albuterol sulfate 90 mcg/actuation 2 puff inhalation Q4H PRN 02/21/22 11/03/22 Rx aerosol inhaler (Ventolin HFA) shortness of breath or wheezing #18 grams fluticasone fur. 100 mcg-umeclid 1 inh inhalation DAILY #3 Inhalers 02/21/22 11/03/22 Rx 62.5 mcg-vilant 25 mcg inhalat.powder (Trelegy Ellipta) isosorbide mononitrate 30 mg 90 mg PO QAM #270 tabs 08/01/22 11/03/22 Rx tablet,extended release 24 hr apixaban 5 mg tablet (Eliquis) 5 mg PO BID 30 days #60 tabs 09/05/22 11/03/22 Rx nebulizers #1 ea 09/22/22 09/25/22 Rx amlodipine 10 mg tablet 10 mg PO DAILY #90 tabs 09/25/22 11/03/22 Rx buspirone 5 mg tablet 5 mg PO BID PRN anxiety #60 tabs 09/25/22 11/03/22 Rx bumetanide 1 mg tablet 1 mg PO BID 14 days #28 tabs 10/23/22 11/03/22 Rx acetaminophen 500 mg tablet 1,000 mg PO TID pain 11/03/22 11/03/22 History bisacodyl 10 mg rectal suppository 10 mg DC DAILY PRN On day 4 of no 11/03/22 11/03/22 History (Dulcolax (bisacodyl)) BM in the morning - Call docusate sodium 100 mg capsule 100 mg PO DAILY PRN On day 2 of no 11/03/22 11/03/22 History (Colace) BM in the morning levofloxacin 750 mg tablet 750 mg PO .EVERY 48 HOURS 11/03/22 11/03/22 History melatonin 1 mg tablet 2 mg PO HS 11/03/22 11/03/22 History nystatin 100,000 unit/gram topical 1 applic topical .EVERY SHIFT for 11/03/22 11/03/22 History powder intertrigo polyethylene glycol 3350 17 17 g PO DAILY PRN Give on day 3 of 11/03/22 11/03/22 History gram/dose oral powder (Miralax) no BM tramadol 50 mg tablet 50 mg PO Q6H PRN Severe Pain 11/03/22 11/03/22 History (Scale Score 7-10) Past Med/Surg History Medical History Acute anterior epistaxis Acute lower gastrointestinal bleeding Acute posterior epistaxis Anemia Anticoagulant long-term use Atrial fibrillation permanent, now s/p PPM (2016) Bradycardia CAD (coronary artery disease) [place] (1992) CHF (congestive heart failure) follows with [facility] (Dr. Marcos) Chronic diastolic CHF (congestive heart failure) Chronic kidney disease, stage 3 follows with nephrology ([facility] [place]. Richard) Chronic respiratory failure with hypoxia COPD (chronic obstructive pulmonary disease) 2L HS + occasionally PRN, follows with [facility] COPD with asthma COPD with emphysema Deep vein thrombosis B/L LE (1967), Diabetes mellitus, type 2 NIDDM Dysfunction of left eustachian tube Elevated troponin Encounter for pre-operative examination Encounter for pre-operative examination GI bleed Hearing deficit History of kidney cancer s/p L nephrectomy (1997) Hyperlipidemia controlled Hypertension controlled Insomnia Insomnia Intractable back pain Leg swelling Mixed conductive and sensorineural hearing loss of left ear with restricted hearing of right ear Osteoarthritis Osteoporosis Pacemaker Implanted 2016, [employer], last check 09/2019 Pulmonary nodule per records Restless leg syndrome Syncope UTI (urinary tract infection) Vitamin D deficiency Surgical History History of cardiac cath 10+ years ago, no stents History of cholecystectomy History of colonoscopy History of hip surgery R/L NABEEL History of myringotomy + Left ear tube removal: 06/09/19: LMA#4 atraumatic at [facility] History of nephrectomy left History of vaginal hysterectomy Hx of bilateral cataract extraction Status post placement of cardiac pacemaker 2016 Family History Brother Hypertension Mother Cardiac disorder Sister Lung cancer Aunt Lung cancer Father Pneumonia Unknown Family history of allergies Environmental allergies Denies family history of Ovarian cancer Prostate cancer Myocardial infarction Breast cancer Colorectal cancer Social History Smoking Status: Never smoker Tobacco Type: Cigarettes Age Started Using Tobacco: 26; Age Quit Using Tobacco: 55; packs per day: 1; Cigarettes Per Day: 20; Second Hand Exposure: No; Do You Dip or Chew Tobacco: No; Hx Alcohol Use: No Hx Substance Use: No Preferred Language: Colombian Communication Ability: Effective Visual Impairment: No Limitations Hearing Ability: Hard of Hearing Back Order Clerk Required: No Beliefs That Will Affect Care: None marital status: / Current Living Situation: Alone Current Living Situation Comment: lives at [facility], is there for rehab current occupational status: retired current occupation: worked at [employer] Other Information That Helps Us Care for You: No Feels Safe at Home: Yes Safety Concerns: Feels Safe At This Time Childhood Exposure to Second-Hand Smoke: No Diet: other Diet Comment: Low sugar/ Sugar free options when possible caffeine: Yes (2 cups of coffee daily ) Dental Care, Regularly: No Physical Activity Frequency: Daily Seatbelt Use: always Sunscreen Use: Yes Assistive Devices: Walker Assistive Devices Comment: uses walker to ambulate Review of Systems Review of Systems: All systems reviewed & are unremarkable except as noted in HPI & below Physical Exam Constitutional: WD/WN, vitals as above Respiratory: normal respiratory effort; no respiratory distress Auscultation: + crackles (bibasal); breath sounds present, no diminished lung sounds, no rales, no rhonchi and no wheezes Cardiovascular: Rate/Rhythm: regular rate and regular rhythm Extremities: normal capillary refill and + pedal edema (1+ b/l pitting edema); no calf tenderness Gastrointestinal (Abdomen): normal bowel sounds, soft, nontender, no hepatosplenomegaly Musculoskeletal: no cyanosis or clubbing, extremities motor strength 5/5 Skin: no rashes, warm and dry Neurologic: moves all extremities and awake; not confused Psychiatric: A+Ox3, euthymic affect Genitourinary: no CVA tenderness Results & Data Results & Data Vital Signs (Past 12 Hours) Vital Signs Temp Pulse Pulse Resp BP BP Pulse Ox 11/03/22 10:27 68 20 106/49 L 97 11/03/22 09:33 63 16 96 11/03/22 09:33 96 11/03/22 09:23 61 11/03/22 09:13 36.5 C 71 20 124/65 99 O2 Del Method O2 Flow Rate 11/03/22 10:27 11/03/22 09:33 Nasal Cannula 3 11/03/22 09:33 Nasal Cannula 3 11/03/22 09:23 11/03/22 09:13 Nasal Cannula 3 Laboratory Results Abnormal lab results 11/03/22 11/03/22 11/03/22 Range/Units 09:28 09:28 09:28 RBC 3.65 L (4.20-5.40) M/uL Hgb 9.4 L (12.0-16.0) g/dl Hct 28.6 L (37.0-47.0) % MCV 78.4 L (80.0-100.0) fL RDW Coeff of Stephane 15.5 H (11.5-14.5) % Lymph # (Auto) 0.63 L (1.2-3.4) K/uL Evangeline # (Auto) 0.83 H (0.11-0.59) K/uL PT (9.0-12.0) Seconds INR (0.9-1.1) APTT (21.0-31.0) Seconds Sodium 126 L (136-145) mmol/L Chloride 85 L (98-107) mmol/L BUN 76 H (6-23) mg/dl Creatinine 2.91 H (0.6-1.2) mg/dl BUN/Creatinine Ratio 26.1 H (10-20) Glucose 102 H (70-99(Fasting)) mg/dl POC Glucose (70-99) mg/dl Direct Bilirubin 0.4 H (0-0.2) mg/dl AST 56 H (13-39) U/L Troponin I High Sens 41.3 H (0-14) pg/ml B-Natriuretic Peptide > 4700 H (0-100) pg/ml 11/03/22 11/03/22 Range/Units 09: 16:01 RBC (4.20-5.40) M/uL Hgb (12.0-16.0) g/dl Hct (37.0-47.0) % MCV (80.0-100.0) fL RDW Coeff of Stephane (11.5-14.5) % Lymph # (Auto) (1.2-3.4) K/uL Evangeline # (Auto) (0.11-0.59) K/uL PT 18.9 H (9.0-12.0) Seconds INR 1.8 H (0.9-1.1) APTT 37.3 H (21.0-31.0) Seconds Sodium (136-145) mmol/L Chloride (98-107) mmol/L BUN (6-23) mg/dl Creatinine (0.6-1.2) mg/dl BUN/Creatinine Ratio (10-20) Glucose (70-99(Fasting)) mg/dl POC Glucose 130 H (70-99) mg/dl Direct Bilirubin (0-0.2) mg/dl AST (13-39) U/L Troponin I High Sens (0-14) pg/ml B-Natriuretic Peptide (0-100) pg/ml Diagnostic Findings XR chest 1V portable CLINICAL HISTORY: Chest pain, nonspecific TECHNIQUE: Single frontal radiograph of the chest was obtained. Comparison: Comparison is made to chest radiograph 10/16/2022 FINDINGS: Implanted pacemaker is seen. Cardiomegaly is noted. The aortic arch is calcified. Prominence and cephalization of the vasculature is seen. Right lower lung airspace opacity is again seen. Small bilateral pleural effusions are seen. IMPRESSION: 1. Cardiomegaly and mild pulmonary edema. 2. Small bilateral pleural effusions. Medications Administered ER Medications Given: None ECG Rate (beats per minute): 61 Rhythm: other (ventricular paced) Findings: no acute ischemic change Comparison ECG Date: from (October 08, 2022) Change: no significant change Code Status & VTE Plan Code Status DNR, All other treatment outside of cardiac arrest including intubation VTE Prophylaxis Plan VTE Prophylaxis will be ordered: Yes PG Care Time/CCT Total # of Minutes Spent Total Time Spent with Patient: Total time spent is greater than 50% in coordination of care (as documented) at patient's floor/unit and/or counseling patient: Coding Level of Care Code 21468 INT INP/OBS CARE 3/75MIN Diagnoses Acute on chronic heart failure with preserved ejection fraction I50.33 Aortic stenosis I35.0 YUMIKO (acute kidney injury) N17.9 Diabetes mellitus, type 2 E11.9 Atrial fibrillation I48.91 CAD (coronary artery disease) I25.10
[2022-11-03] MEDS ORDERED: GLUCOSE 40% GEL 15 GM TUBE PO PRN (12:35)
[2022-11-03] MEDS ORDERED: CARBOHYDRATES FOR HYPOGLYCEMIA PO PRN (12:35)
[2022-11-03] MEDS ORDERED: GLUCOSE 10 TAB/TUBE PO PRN (12:35)
[2022-11-03] MEDS ORDERED: DEXTROSE 50% 50 ML SYRINGE IV PRN (12:35)
[2022-11-03] MEDS ORDERED: GLUCAGON FOR INJ 1 MG VIAL SQ PRN (12:35)
--- NOTE | 2022-11-03 12:43 | Electrocardiogram Report ---
Test Reason : Blood Pressure : / mmHG Vent. Rate : 061 BPM Atrial Rate : 060 BPM P-R Int : 000 ms QRS Dur : 204 ms QT Int : 506 ms P-R-T Axes : 000 -85 089 degrees QTc Int : 509 ms Ventricular-paced rhythm Abnormal ECG When compared with ECG of 08-OCT-2022 10:42, Vent. rate has decreased BY 13 BPM Confirmed by Kirill Marcos ([id number]) on 11/03/2022 12:42:54 PM Referred By: Confirmed By:Kirill Marcos
[2022-11-03 13:24] LABS: Albumin Level 3.5 gm/dl (3.4-5.0); Bilirubin Direct 0.4 mg/dl (0-0.2); Total Protein 6.4 gm/dl (6.0-8.3)
[2022-11-03] MEDS: ACETAMINOPHEN 500 MG TAB PO SCH ×2 (13:45→20:27)
[2022-11-03] MEDS: FUROSEMIDE 100 MG in DEXTROSE 5% 90 ML IV SCH ×2 (14:36→22:40)
[2022-11-03] MEDS: traMADol HCL 50 MG TABLET PO PRN ×2 (14:41→23:49)
[2022-11-03] MEDS: INSULIN ASPART PER UNIT CHARGE SC SCH ×2 (16:47→19:56)
[2022-11-03] MEDS: carvediloL 3.125 MG TAB PO SCH (16:51)
[2022-11-03] MEDS: LANTUS PER UNIT CHARGE SQ SCH (20:19)
[2022-11-03] MEDS: DOCUSATE SODIUM 100 MG CAP PO SCH (20:27)
[2022-11-03] MEDS: APIXABAN 2.5 MG TAB PO SCH (20:27)
[2022-11-03] MEDS: SIMVASTATIN 20 MG TAB PO SCH (20:27)
[2022-11-03] MEDS: MELATONIN 3 MG TAB PO SCH (20:27)
[2022-11-03] MEDS: CHOLECALCIFEROL 1,000 UNITS 25 MCG TAB PO SCH (20:27)
[2022-11-04] MEDS: busPIRone 5 MG TAB PO PRN ×2 (00:07→22:31)
[2022-11-04 07:25] LABS: Basophils # (auto) 0.01 K/uL (0-0.2); Basophils % (auto) 0.1 %; Eosinophils # (auto) 0.12 K/uL (0-0.50); Eosinophils % (auto) 1.7 %; Hematocrit (blood only) 26.3 % (37.0-47.0); Hemoglobin 8.9 g/dl (12.0-16.0); Immature Granulocytes # (auto) 0.05 K/uL (0.01-0.20); Immature Granulocytes % (auto) 0.7 %; Lymphocytes # (auto) 0.89 K/uL (1.2-3.4); Lymphocytes % (auto) 12.4 %; Mean Corpuscular Hemoglobin 25.3 pg (25.0-34.0); Mean Corpuscular Hgb Conc 33.8 g/dL (32.0-36.0); Mean Corpuscular Volume 74.7 fL (80.0-100.0); Mean Platelet Volume 9.9 fL (9.4-12.4); Monocytes # (auto) 0.91 K/uL (0.11-0.59); Monocytes % (auto) 12.7 %; Neutrophils % (auto) 72.4 %; Nucleated RBC # (auto) 0.09 K/uL (0-0.12); Nucleated RBC % (auto) 1.3 %; Platelet Count 194 K/uL (130-400); RDW Standard Deviation 43.3 fL (36.4-46.3); Red Blood Count 3.52 M/uL (4.20-5.40); White Blood Count 7.18 K/ul (4.8-10.8)
[2022-11-04 07:47] LABS: BUN Creatinine Ratio 25.7 (10-20); Calcium 9.2 mg/dl (8.6-10.3); Creatinine Clr Calc Pharmacy 15.1 ml/min; Est GFR (African American) 15.2 ml/min; Est GFR (Non-African American) 13.1 ml/min; Potassium 4.8 mmol/L (3.5-5.1)
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
[2022-11-04] MEDS: INSULIN ASPART PER UNIT CHARGE SC SCH ×4 (08:18→20:22)
[2022-11-04] MEDS: ISOSORBIDE MONO EXTENDED REL 30 MG TABCR PO SCH (08:19)
[2022-11-04] MEDS: ACETAMINOPHEN 500 MG TAB PO SCH ×3 (08:19→21:41)
[2022-11-04] MEDS: carvediloL 3.125 MG TAB PO SCH ×2 (08:20→16:51)
[2022-11-04] MEDS: APIXABAN 2.5 MG TAB PO SCH ×2 (08:20→20:15)
[2022-11-04] MEDS: DOCUSATE SODIUM 100 MG CAP PO SCH ×2 (08:20→20:14)
[2022-11-04] MEDS: POLYETHYLENE (MIRALAX) 17 GM PACK PO SCH (08:21)
[2022-11-04] MEDS: CHOLECALCIFEROL 1,000 UNITS 25 MCG TAB PO SCH ×2 (08:21→20:16)
[2022-11-04] MEDS: FLUTICASONE FUROATE 100MCG 14 PUFFS/INHALER INH SCH (08:22)
[2022-11-04] MEDS: UMECLIDINIUM/VILANTEROL 62.5/25MCG 7 PUFFS/INHALER INH SCH (08:22)
[2022-11-04] MEDS: FUROSEMIDE 100 MG in DEXTROSE 5% 90 ML IV SCH ×2 (08:23→17:43)
[2022-11-04] MEDS: ONDANSETRON ORAL SOLN 0.8 MG/1 ML PO PRN (13:20)
--- NOTE | 2022-11-04 18:58 | Billing Data ---
Date of Service November 04, 2022 Coding Level of Care Code 21768 SUB INP/OBS CARE MIN
[2022-11-04] MEDS: traMADol HCL 50 MG TABLET PO PRN (20:12)
[2022-11-04] MEDS: SIMVASTATIN 20 MG TAB PO SCH (20:15)
[2022-11-04] MEDS: MELATONIN 3 MG TAB PO SCH (21:42)
[2022-11-04] MEDS: LANTUS PER UNIT CHARGE SQ SCH (21:42)
[2022-11-05] MEDS: traMADol HCL 50 MG TABLET PO PRN ×3 (02:12→22:35)
[2022-11-05] MEDS: FUROSEMIDE 100 MG in DEXTROSE 5% 90 ML IV SCH ×3 (04:12→23:52)
[2022-11-05] MEDS ORDERED: HYDROmorphone INJ 0.5 MG/0.5 ML SYR IV STA (05:37)
--- NOTE | 2022-11-05 07:13 | Hospitalist Progress Note ---
Date of Service November 05, 2022 Assessment & Plan (1) Acute on chronic heart failure with preserved ejection fraction: Plan: Cammy is an 82 year old female with history of MR< CAD, aortic stenosis, HFpEF, DM2, recent CHI with multiple facial fractures, single kidney, snf anticoagulation, tachy-joe syndrome, secondary hyperparathyroidism, renal artery stenosis, RLS, pulmonary emphysema w/ COPD, anemia, and PUD who presents for acute on chronic heart failure and was admitted for diuresis. HFpEF (Acute on Chronic) - Ddx: Likely a/w under diuresis vs high Na diet as outpatient * Patient recently discharged on Bumex 1 mg PO BID, but this was further tapered down as outpatient * Patient with recent facial fractures with limit comfortably with eating (commonly eating soft processed foods, which are high in salt) - During last admission patient required up to Lasix IV 240 mg daily - Ongoing use of Amlodipine possible contributor to persistent LE edema, discontinued on admission - Carvedilol changed to Atenolol (improved HF outcomes, titrate for BP/HR - Strict I/O, goal for 102 L net negative daily (currently - 700 cc) - Continue low Na diet and 1500 mL fluid restriction - S/p 80 mg IV lasix on admission, started on Lasix 10 mg/hr, ongoing --- Continue Lasix drip at 10 mg/hr, anticipate transition to PO prior to discharge, clinical status continues to improve LLE Ecchymosis/Hematoma - Evidenced on US 11/05 * US: Impression 7.4 x 1.9 x 2.2 cm elongated complex fluid collection within the posterior left thigh suggestive of a hematoma. - Anticoagulation held Aortic stenosis - Moderate - EF 50-55% on Echo 09/11 - Evidenced on exam, otherwise asymptomatic YUMIKO (acute kidney injury)/ Single Kidney - Likely a/w HF - Known hx of single kidney/PACO - Renal US performed last admission, if improving will defer further imaging. --- Cr 2.9 on admission to 3.1 this AM, continue to follow, likely a/w fluid overload Diabetes mellitus, type 2: - Hemoglobin A1C 5.5 in August, no need to repeat as < 3 months - Unclear if she really requires any treatment - Start Lantus 5 nits HS (hold for glucose < 120. - Novolog: * Goal BSG Range: Low 110 mg/dL, High 140 mg/dL * Correction Factor: 45 mg/dL/unit * Carbohydrate ratio = 15 g/unit * BSGs ACHS if eating, q6h if npo Atrial fibrillation: - Currently ventricular paced - Eliquis (reduced dose due to age and Cr) for anticoagulation - Switched to carvedilol for rate control due to HF on admission CAD (coronary artery disease): - Continue Eliquis, carvedilol, ISMN, simvastatin Hypokalemia - 127 on 11/05 - Likely a/w hypervolemia - Continue diuresis (2) Aortic stenosis: (3) YUMIKO (acute kidney injury): (4) Diabetes mellitus, type 2: (5) Atrial fibrillation: (6) CAD (coronary artery disease): Plan FEN: Low Na, HH, fluid restriction, IV Lasix Code status: Conditional DVT ppx: Eliquis (renal dosing) Isolation: None Dispo:PCU Admission and Anticipated Discharge Date Admission Date: November 03, 2022 Supervising Physician Co-Signing Physician Notes I personally examined the patient and verified all gamez points of history and exam, discussed case, and agree with decision making with Dr Hall attempted to see multiple times - sleeping each. discussed with resident and reviewed chart - allowed pt to rest. Vitals noted, in general she is sleeping - laying fairly flat, no distress. HEENT normocephalic atraumatic mucous membranes moist, breathing on what is more or less her baseline of 3 L. Xray and US noted Acute on chronic diastolic CHFfortunately not very severe with her breathing. Continue diuresis to as best she can tolerate. Seems to be exquisitely salt sensitiveand I suspect the saltiness of her food (as corroborated by her family) had as much or more to do with her fluid retention than her diuretic dosingcontinue to follow closely. follow Cr - too soon to tell if just poor forward flow or already as dry as we can get at this point thigh hematoma - hold eliquis for ~1-2 days to allow to stabilize otherwise as above Subjective 11/05: Patient sleeping in bed upon arrival, immediately noted discomfort in her left thigh upon awakening. Patient noted a fall prior to presentation (for which she has bruising on her back), this morning she note that she may have also fallen on her leg. Her lower extremity swelling is mildly improved, she denies any chest pain, dyspnea, or pleuritic pain. She is not experiencing any abdominal pain, diarrhea, constipation, or dysuria. Physical Exam Physical Exam: Gen: NAD, interactive, uncomfortable HEENT: NCAT, supple, no LAD, no JVD Resp:Non-labored, faint bi-basilar crackles, otherwise CTAB CV:RRR, normal S1/S2, systolic ejection murmur at RUSB/LUSB Abd: Soft, non-distended, no TTP, normoactive bowels, no masses, no HSM Extr: 2+ dp bilaterally, 1+ bilateral pitting edema, no warmth/erythema, no deep calf pain * Significant ecchymosis of left posterior thigh w/ body TTP, firm fluid collection inferior to ecchymosis Results & Data Results & Data Vital Signs (Past 12 Hours) Vital Signs Temp Pulse Resp BP Pulse Ox O2 Del Method O2 Flow Rate 11/05/22 03:51 36.5 C 65 20 112/68 94 Nasal Cannula 3 11/04/22 22:33 36.4 C L 64 18 106/63 93 BiPAP 11/04/22 20:00 Nasal Cannula 3 Resident Activity Tracking Resident Involvement: Resident Care Provided Care Provided: Adult Hospital Medicine
[2022-11-05 08:03] LABS: BUN Creatinine Ratio 25.5 (10-20); Calcium 8.9 mg/dl (8.6-10.3); Creatinine Clr Calc Pharmacy 14.8 ml/min; Est GFR (African American) 14.8 ml/min; Est GFR (Non-African American) 12.8 ml/min; Potassium 4.6 mmol/L (3.5-5.1)
[2022-11-05 08:14] LABS: Hemoglobin 8.8 g/dl (12.0-16.0); Mean Corpuscular Hemoglobin 25.7 pg (25.0-34.0); Mean Corpuscular Hgb Conc 32.6 g/dL (32.0-36.0); Mean Corpuscular Volume 78.7 fL (80.0-100.0); Mean Platelet Volume 9.7 fL (9.4-12.4); Nucleated RBC # (auto) 0.08 K/uL (0-0.12); Nucleated RBC % (auto) 1.1 %; Platelet Count 166 K/uL (130-400); RDW Coefficient of Variation 15.9 % (11.5-14.5); RDW Standard Deviation 45.1 fL (36.4-46.3); Red Blood Count 3.43 M/uL (4.20-5.40); White Blood Count 7.58 K/ul (4.8-10.8)
[2022-11-05] MEDS: INSULIN ASPART PER UNIT CHARGE SC SCH ×4 (08:37→21:02)
[2022-11-05] MEDS: ACETAMINOPHEN 500 MG TAB PO SCH ×3 (08:38→21:12)
[2022-11-05] MEDS: carvediloL 3.125 MG TAB PO SCH ×2 (08:38→16:33)
[2022-11-05] MEDS: FLUTICASONE FUROATE 100MCG 14 PUFFS/INHALER INH SCH (08:39)
[2022-11-05] MEDS: DOCUSATE SODIUM 100 MG CAP PO SCH ×2 (08:39→21:13)
[2022-11-05] MEDS: APIXABAN 2.5 MG TAB PO SCH (08:39)
[2022-11-05] MEDS: UMECLIDINIUM/VILANTEROL 62.5/25MCG 7 PUFFS/INHALER INH SCH (08:39)
[2022-11-05] MEDS: CHOLECALCIFEROL 1,000 UNITS 25 MCG TAB PO SCH ×2 (08:39→21:13)
[2022-11-05] MEDS: ISOSORBIDE MONO EXTENDED REL 30 MG TABCR PO SCH (08:40)
[2022-11-05] MEDS: POLYETHYLENE (MIRALAX) 17 GM PACK PO SCH (08:40)
--- NOTE | 2022-11-05 12:11 | XRay Report ---
XR hip LT 2V w pelvis CLINICAL HISTORY: Bony tenderness to palpation of L hip COMPARISON STUDY: Pelvis and left hip 08/05/2022. FINDINGS: There is a left total hip arthroplasty. The hardware appears intact. No abnormal periprosth etic lucency. No acute fracture or dislocation within the left hip. The visualized pelvic bones are i ntact. Mild vascular calcifications are noted. There are metallic anchors within the left greater tro chanter. This remains unchanged. No fracture or dislocation within the right hip. There is also a rig ht total hip arthroplasty. IMPRESSION: 1. No acute fracture or dislocation within the pelvis or hips. 2. Bilateral total hip arthroplasties. The hardware appears intact. ACT 112: Negative or not required by law. Electronically signed by: Chalino Cooper M.D. 11/05/2022 12:10 PM
--- NOTE | 2022-11-05 12:17 | XRay Report ---
LEFT FEMUR 3 VIEWS CLINICAL HISTORY: Left leg pain. FINDINGS: AP, frog-leg, and lateral views of the femur are correlated with radiograph of the left hip dated 08/05/2022. The skeletal structures are osteopenic. There is no radiographic evidence of left f emoral fracture. The visualized left hemipelvis appears intact. A left hip arthroplasty is in near an atomic alignment. No periprosthetic lucency is seen. Degenerative change is noted in the knee joint. The overlying soft tissues are normal as imaged. There is advanced atherosclerotic calcification of t he popliteal artery. IMPRESSION: 1. No acute bony abnormality is identified. 2. A left hip arthroplasty is in near anatomic alignment. Electronically signed by: Dariusz Jensen M.D. 11/05/2022 12:16 PM
--- NOTE | 2022-11-05 14:42 | Ultrasound Report ---
LEFT THIGH ULTRASOUND CLINICAL HISTORY: Posterior left thigh hematoma, on blood thinner COMPARISON STUDY: Left hip and femur radiographs November 05, 2022. TECHNIQUE: Sonography of the posterior left thigh at site of erythema and swelling was performed. FINDINGS: Subcutaneous edema of the left thigh is noted. There is also a complex elongated posterior left thigh collection which measures 7.4 x 1.9 x 2.2 cm. This may be intramuscular in location or wit hin the deep subcutaneous tissues. This contains no color flow. No additional fluid collections are p resent. IMPRESSION: 7.4 x 1.9 x 2.2 cm elongated complex fluid collection within the posterior left thigh ibarra ggestive of a hematoma. This may be intramuscular or within the deep subcutaneous tissues. A follow-u p ultrasound in 3 months to ensure resolution is recommended. ACT 112: Negative or not required by law. Electronically signed by: Jorgito Oseguera M.D. 11/05/2022 2:40 PM
--- NOTE | 2022-11-05 19:17 | Billing Data ---
Date of Service November 05, 2022 Coding Level of Care Code 55477 SUB INP/OBS CARE
[2022-11-05] MEDS: LANTUS PER UNIT CHARGE SQ SCH (21:11)
[2022-11-05] MEDS: MELATONIN 3 MG TAB PO SCH (21:11)
[2022-11-05] MEDS: busPIRone 5 MG TAB PO PRN (21:13)
[2022-11-05] MEDS: SIMVASTATIN 20 MG TAB PO SCH (21:14)
[2022-11-06] MEDS ORDERED: HYDROmorphone INJ 0.5 MG/0.5 ML SYR IV ONE (00:46)
[2022-11-06 06:32] LABS: Hematocrit (blood only) 26.5 % (37.0-47.0); Hemoglobin 8.6 g/dl (12.0-16.0); Mean Corpuscular Hemoglobin 25.4 pg (25.0-34.0); Mean Corpuscular Hgb Conc 32.5 g/dL (32.0-36.0); Mean Corpuscular Volume 78.2 fL (80.0-100.0); Mean Platelet Volume 9.8 fL (9.4-12.4); Nucleated RBC # (auto) 0.09 K/uL (0-0.12); Nucleated RBC % (auto) 1.2 %; Platelet Count 169 K/uL (130-400); RDW Coefficient of Variation 15.9 % (11.5-14.5); RDW Standard Deviation 44.7 fL (36.4-46.3); Red Blood Count 3.39 M/uL (4.20-5.40); White Blood Count 7.58 K/ul (4.8-10.8)
[2022-11-06 06:55] LABS: BUN Creatinine Ratio 25.6 (10-20); Calcium 8.7 mg/dl (8.6-10.3); Creatinine Clr Calc Pharmacy 15.7 ml/min; Est GFR (African American) 15.8 ml/min; Est GFR (Non-African American) 13.6 ml/min; Potassium 4.1 mmol/L (3.5-5.1)
--- NOTE | 2022-11-06 08:04 | Hospitalist Progress Note ---
Date of Service November 06, 2022 Assessment & Plan (1) Acute on chronic heart failure with preserved ejection fraction: Plan: Cammy is an 82 year old female with history of MR< CAD, aortic stenosis, HFpEF, DM2, recent CHI with multiple facial fractures, single kidney, correction anticoagulation, tachy-joe syndrome, secondary hyperparathyroidism, renal artery stenosis, RLS, pulmonary emphysema w/ COPD, anemia, and PUD who presents for acute on chronic heart failure and was admitted for diuresis. HFpEF (Acute on Chronic) - Ddx: Likely a/w under diuresis vs high Na diet as outpatient * Patient recently discharged on Bumex 1 mg PO BID, but this was further tapered down as outpatient * Patient with recent facial fractures with limit comfortably with eating (commonly eating soft processed foods, which are high in salt) - During last admission patient required up to Lasix IV 240 mg daily - Ongoing use of Amlodipine possible contributor to persistent LE edema, discontinued on admission - Carvedilol changed to Atenolol (improved HF outcomes, titrate for BP/HR - Strict I/O, goal for 102 L net negative daily (currently - 700 cc) - Continue low Na diet and 1500 mL fluid restriction - S/p 80 mg IV lasix on admission, started on Lasix 10 mg/hr, ongoing --- Continue Lasix drip at 10 mg/hr, for ongoing diuresis LLE Ecchymosis/Hematoma - Evidenced on US 11/05 * US: Impression 7.4 x 1.9 x 2.2 cm elongated complex fluid collection within the posterior left thigh suggestive of a hematoma. - Anticoagulation held --- Ongoing thigh/hip pain, continue scheduled Tylenol, continue PRN Tramadol, received single dose of Dilaudid 0.125 overnight (helped) Aortic stenosis - Moderate - EF 50-55% on Echo 09/11 - Evidenced on exam, otherwise asymptomatic YUMIKO (acute kidney injury)/ Single Kidney - Likely a/w HF - Known hx of single kidney/PACO - Renal US performed last admission, if improving will defer further imaging. --- Cr 2.9 on admission to 3.0 this AM, now downtrending, likely a/w fluid overload, continue diuresis Diabetes mellitus, type 2: - Hemoglobin A1C 5.5 in August, no need to repeat as < 3 months - Unclear if she really requires any treatment - Start Lantus 5 nits HS (hold for glucose < 120. - Novolog: * Goal BSG Range: Low 110 mg/dL, High 140 mg/dL * Correction Factor: 45 mg/dL/unit * Carbohydrate ratio = 15 g/unit * BSGs ACHS if eating, q6h if npo Atrial fibrillation: - Currently ventricular paced - Eliquis (reduced dose due to age and Cr) for anticoagulation - Switched to carvedilol for rate control due to HF on admission CAD (coronary artery disease): - Continue Eliquis, carvedilol, ISMN, simvastatin Hypokalemia - 127 on 11/05 - Likely a/w hypervolemia - Continue diuresis (2) Aortic stenosis: (3) YUMIKO (acute kidney injury): (4) Diabetes mellitus, type 2: (5) Atrial fibrillation: (6) CAD (coronary artery disease): Plan FEN: Low Na, HH, fluid restriction, IV Lasix Code status: Conditional DVT ppx: Eliquis (renal dosing) Isolation: None Dispo:PCU Admission and Anticipated Discharge Date Admission Date: November 03, 2022 Supervising Physician Co-Signing Physician Notes I personally examined the patient and verified all gamez points of history and exam, discussed case, and agree with decision making with Dr Hall leg Feels about the same. Vitals noted, in general she is sleeping - laying fairly flat, no distress. HEENT normocephalic atraumatic mucous membranes moist, breathing on what is more or less her baseline of 3 L. left thighsomewhat tender. le edema improving Acute on chronic diastolic CHFfortunately not very severe with her breathing. Continue diuresis to as best she can tolerate. Seems to be exquisitely salt sensitiveand I suspect the saltiness of her food (as corroborated by her family) had as much or more to do with her fluid retention than her diuretic dosingcontinue to follow closely. follow Cr - starting to improve thigh hematoma - hold eliquis for ~1-2 days to allow to stabilize, symptomat control otherwise as above Subjective 11/06: Patient sleeping upon arrival, upon awakening, she noted ongoing left thigh and hip pain (improved by pain medication). She denies any dyspnea or pleuritic pain. Her feet continue to feel tight, but she does not believe the edema is worse. She denies any chest pain, fevers, or chills. She continues to urinate well w/o dysuria via Booker and has no diarrhea or constipation. Physical Exam Physical Exam: Gen: NAD, interactive, uncomfortable HEENT: NCAT, supple, no LAD, no JVD Resp:Non-labored, faint bi-basilar crackles, otherwise CTAB CV:RRR, normal S1/S2, systolic ejection murmur at RUSB/LUSB Abd: Soft, non-distended, no TTP, normoactive bowels, no masses, no HSM Extr: 2+ dp bilaterally, 1+ bilateral pitting edema, no warmth/erythema, no deep calf pain * Significant ecchymosis of left posterior thigh w/ body TTP, firm fluid collection inferior to ecchymosis Results & Data Results & Data Vital Signs (Past 12 Hours) Vital Signs Temp Pulse Pulse Resp BP Pulse Ox O2 Del Method 11/06/22 03:23 36.4 C L 61 18 138/69 97 Nasal Cannula 11/05/22 23:00 60 11/05/22 23:14 36.9 C 64 20 103/55 L 94 Nasal Cannula O2 Flow Rate 11/06/22 03:23 3.5 11/05/22 23:00 11/05/22 23:14 3.5 Resident Activity Tracking Resident Involvement: Resident Care Provided Care Provided: Adult Hospital Medicine
[2022-11-06] MEDS: INSULIN ASPART PER UNIT CHARGE SC SCH ×4 (08:20→20:44)
[2022-11-06] MEDS: ACETAMINOPHEN 500 MG TAB PO SCH ×3 (08:21→19:59)
[2022-11-06] MEDS: ISOSORBIDE MONO EXTENDED REL 30 MG TABCR PO SCH (08:21)
[2022-11-06] MEDS: POLYETHYLENE (MIRALAX) 17 GM PACK PO SCH (08:21)
[2022-11-06] MEDS: CHOLECALCIFEROL 1,000 UNITS 25 MCG TAB PO SCH ×2 (08:21→20:00)
[2022-11-06] MEDS: DOCUSATE SODIUM 100 MG CAP PO SCH ×2 (08:21→20:00)
[2022-11-06] MEDS: UMECLIDINIUM/VILANTEROL 62.5/25MCG 7 PUFFS/INHALER INH SCH (08:22)
[2022-11-06] MEDS: FLUTICASONE FUROATE 100MCG 14 PUFFS/INHALER INH SCH (08:22)
[2022-11-06] MEDS: carvediloL 3.125 MG TAB PO SCH ×2 (08:22→16:51)
[2022-11-06] MEDS: FUROSEMIDE 100 MG in DEXTROSE 5% 90 ML IV SCH ×2 (10:38→20:38)
[2022-11-06] MEDS ORDERED: traMADol HCL 50 MG TABLET PO SCH (11:00)
[2022-11-06] MEDS: traMADol HCL 50 MG TABLET PO PRN ×2 (16:52→23:12)
--- NOTE | 2022-11-06 19:07 | Billing Data ---
Date of Service November 06, 2022 Coding Level of Care Code 63446 SUB INP/OBS CARE MIN
[2022-11-06] MEDS: busPIRone 5 MG TAB PO PRN (19:46)
[2022-11-06] MEDS: SIMVASTATIN 20 MG TAB PO SCH (20:01)
[2022-11-06] MEDS: MELATONIN 3 MG TAB PO SCH (21:05)
[2022-11-06] MEDS: LANTUS PER UNIT CHARGE SQ SCH (21:05)
[2022-11-06] MEDS ORDERED: HYDROmorphone INJ 0.5 MG/0.5 ML SYR IV STA (23:57)
[2022-11-07] MEDS: FUROSEMIDE 100 MG in DEXTROSE 5% 90 ML IV SCH ×2 (06:38→16:44)
[2022-11-07 07:01] LABS: Hematocrit (blood only) 26.5 % (37.0-47.0); Hemoglobin 8.8 g/dl (12.0-16.0); Mean Corpuscular Hemoglobin 25.4 pg (25.0-34.0); Mean Corpuscular Hgb Conc 33.2 g/dL (32.0-36.0); Mean Corpuscular Volume 76.6 fL (80.0-100.0); Mean Platelet Volume 10.2 fL (9.4-12.4); Nucleated RBC # (auto) 0.07 K/uL (0-0.12); Platelet Count 138 K/uL (130-400); RDW Coefficient of Variation 16.2 % (11.5-14.5); RDW Standard Deviation 45.1 fL (36.4-46.3); Red Blood Count 3.46 M/uL (4.20-5.40); White Blood Count 7.09 K/ul (4.8-10.8)
[2022-11-07 07:21] LABS: BUN Creatinine Ratio 28.5 (10-20); Calcium 8.8 mg/dl (8.6-10.3); Creatinine Clr Calc Pharmacy 17.3 ml/min; Est GFR (African American) 17.5 ml/min; Est GFR (Non-African American) 15.1 ml/min; Potassium 4.1 mmol/L (3.5-5.1)
[2022-11-07] MEDS: FLUTICASONE FUROATE 100MCG 14 PUFFS/INHALER INH SCH (07:44)
[2022-11-07] MEDS: DOCUSATE SODIUM 100 MG CAP PO SCH ×2 (07:44→21:13)
[2022-11-07] MEDS: CHOLECALCIFEROL 1,000 UNITS 25 MCG TAB PO SCH ×2 (07:44→21:13)
[2022-11-07] MEDS: ISOSORBIDE MONO EXTENDED REL 30 MG TABCR PO SCH (07:44)
[2022-11-07] MEDS: ACETAMINOPHEN 500 MG TAB PO SCH ×3 (07:44→21:13)
[2022-11-07] MEDS: POLYETHYLENE (MIRALAX) 17 GM PACK PO SCH (07:45)
[2022-11-07] MEDS: UMECLIDINIUM/VILANTEROL 62.5/25MCG 7 PUFFS/INHALER INH SCH (07:45)
[2022-11-07] MEDS: carvediloL 3.125 MG TAB PO SCH ×2 (07:45→16:45)
[2022-11-07] MEDS: INSULIN ASPART PER UNIT CHARGE SC SCH ×4 (08:15→21:14)
--- NOTE | 2022-11-07 08:16 | Hospitalist Progress Note ---
Date of Service November 07, 2022 Assessment & Plan (1) Acute on chronic heart failure with preserved ejection fraction: Plan: Cammy is an 82 year old female with history of MR< CAD, aortic stenosis, HFpEF, DM2, recent CHI with multiple facial fractures, single kidney, penitentiary anticoagulation, tachy-joe syndrome, secondary hyperparathyroidism, renal artery stenosis, RLS, pulmonary emphysema w/ COPD, anemia, and PUD who presents for acute on chronic heart failure and was admitted for diuresis. HFpEF (Acute on Chronic) - Ddx: Likely a/w under diuresis vs high Na diet as outpatient * Patient recently discharged on Bumex 1 mg PO BID, but this was further tapered down as outpatient * Patient with recent facial fractures with limit comfortably with eating (commonly eating soft processed foods, which are high in salt) - During last admission patient required up to Lasix IV 240 mg daily - Ongoing use of Amlodipine possible contributor to persistent LE edema, discontinued on admission - Carvedilol changed to Atenolol (improved HF outcomes, titrate for BP/HR - Strict I/O, goal for 102 L net negative daily (currently - 700 cc) - Continue low Na diet and 1500 mL fluid restriction - S/p 80 mg IV lasix on admission, started on Lasix 10 mg/hr, ongoing --- Continue Lasix drip at 10 mg/hr, for ongoing diuresis LLE Ecchymosis/Hematoma - Evidenced on US 11/05 * US: Impression 7.4 x 1.9 x 2.2 cm elongated complex fluid collection within the posterior left thigh suggestive of a hematoma. - Anticoagulation held --- Ongoing thigh/hip pain, continue scheduled Tylenol, continue PRN Dilaudid 0.125 mg, received single dose of Dilaudid 0.125 overnight (helped) Aortic stenosis - Moderate - EF 50-55% on Echo 09/11 - Evidenced on exam, otherwise asymptomatic YUMIKO (acute kidney injury)/ Single Kidney - Likely a/w HF - Known hx of single kidney/PACO - Renal US performed last admission, if improving will defer further imaging. --- Cr 2.9 on admission, down to 2.7 this AM, likely a/w fluid overload, continue diuresis Diabetes mellitus, type 2: - Hemoglobin A1C 5.5 in August, no need to repeat as < 3 months - Unclear if she really requires any treatment - Start Lantus 5 nits HS (hold for glucose < 120. - Novolog: * Goal BSG Range: Low 110 mg/dL, High 140 mg/dL * Correction Factor: 45 mg/dL/unit * Carbohydrate ratio = 15 g/unit * BSGs ACHS if eating, q6h if npo Atrial fibrillation: - Currently ventricular paced - Eliquis (reduced dose due to age and Cr) for anticoagulation - Switched to carvedilol for rate control due to HF on admission CAD (coronary artery disease): - Continue Eliquis, carvedilol, ISMN, simvastatin Hypokalemia - 127 on 11/05 - Likely a/w hypervolemia - Continue diuresis (2) Aortic stenosis: (3) YUMIKO (acute kidney injury): (4) Diabetes mellitus, type 2: (5) Atrial fibrillation: (6) CAD (coronary artery disease): Plan FEN: Low Na, HH, fluid restriction, IV Lasix Code status: Conditional DVT ppx: Eliquis (renal dosing) - continue hold for hematoma Isolation: None Dispo:PCU Admission and Anticipated Discharge Date Admission Date: November 03, 2022 Supervising Physician Co-Signing Physician Notes I personally examined the patient and verified all gamez points of history and exam, discussed case, and agree with decision making with Dr Hall feeling slowly better legs improving discussed. HEENT normocephalic atraumatic mucous membranes moist, breathing unlabored no accessory muscles good effort skin no rashes no pallor or icterus neuro no focal deficits Acute on chronic diastolic CHFfortunately not very severe with her breathing. Continue diuresis to as best she can tolerate - continues to improve. Seems to be exquisitely salt sensitiveand I suspect the saltiness of her food (as corroborated by her family) had as much or more to do with her fluid retention than her diuretic dosingcontinue to follow closely. follow Cr - slowly improving thigh hematoma - hold eliquis ~1 more day. stabilizing Fe deficiency - literature suggests significant improvement in quality of life w Fe replacement for CHF patients w ferritin <100 - replacement ordered otherwise as above Subjective 11/07: Cammy was sitting comfortably in bedside chair upon arrival. She noted that overall she feels much improved, from a breathing and LE edema perspective. She has ongoing left thigh pain (a/w hematoma), but this is overall improving. She denies chest pain, dyspnea or pleuritic pain. Booker remains intact, w/o dysuria and is not experiencing diarrhea or constipation. Physical Exam Physical Exam: Gen: NAD, interactive, uncomfortable HEENT: NCAT, supple, no LAD, no JVD Resp:Non-labored, faint right basilar crackles, otherwise CTAB CV:RRR, normal S1/S2, systolic ejection murmur at RUSB/LUSB Abd: Soft, non-distended, no TTP, normoactive bowels, no masses, no HSM Extr: 2+ dp bilaterally, 1+ bilateral pitting edema, no warmth/erythema, no deep calf pain * Significant ecchymosis of left posterior thigh w/o TTP, firm fluid collection inferior to ecchymosis Results & Data Results & Data Vital Signs (Past 12 Hours) Vital Signs Temp Pulse Pulse Resp BP Pulse Ox O2 Del Method 11/07/22 07:25 36.4 C L 62 20 114/52 L 95 Nasal Cannula 11/06/22 22:00 61 11/07/22 02:28 35.8 C L 65 18 110/53 L 90 Nasal Cannula 11/06/22 23:05 35.7 C L 62 18 113/57 L 97 Nasal Cannula O2 Flow Rate 11/07/22 07:25 3.0 11/06/22 22:00 11/07/22 02:28 3 11/06/22 23:05 3 Resident Activity Tracking Resident Involvement: Resident Care Provided Care Provided: Adult Hospital Medicine
[2022-11-07] MEDS: ONDANSETRON ORAL SOLN 0.8 MG/1 ML PO PRN (08:56)
[2022-11-07 10:06] LABS: Ferritin 58.9 ng/ml (8-388)
--- NOTE | 2022-11-07 19:06 | Billing Data ---
Date of Service November 07, 2022 Coding Level of Care Code 33482 SUB INP/OBS CARE MIN
[2022-11-07] MEDS ORDERED: IRON SUCROSE 200 MG in 0.9 % SODIUM CHLORIDE 100 ML IV ONE (19:15)
[2022-11-07] MEDS: SIMVASTATIN 20 MG TAB PO SCH (21:12)
[2022-11-07] MEDS: MELATONIN 3 MG TAB PO SCH (21:13)
[2022-11-07] MEDS: LANTUS PER UNIT CHARGE SQ SCH (21:14)
[2022-11-07] MEDS: HYDROmorphone INJ 0.5 MG/0.5 ML SYR IV PRN (21:14)
[2022-11-08] MEDS: FUROSEMIDE 100 MG in DEXTROSE 5% 90 ML IV SCH ×3 (02:44→23:32)
[2022-11-08] MEDS: HYDROmorphone INJ 0.5 MG/0.5 ML SYR IV PRN ×2 (05:20→22:14)
--- NOTE | 2022-11-08 07:13 | Hospitalist Progress Note ---
Date of Service November 08, 2022 Assessment & Plan (1) Acute on chronic heart failure with preserved ejection fraction: Plan: Cammy is an 82 year old female with history of MR< CAD, aortic stenosis, HFpEF, DM2, recent CHI with multiple facial fractures, single kidney, senior care anticoagulation, tachy-joe syndrome, secondary hyperparathyroidism, renal artery stenosis, RLS, pulmonary emphysema w/ COPD, anemia, and PUD who presents for acute on chronic heart failure and was admitted for diuresis. HFpEF (Acute on Chronic) - Ddx: Likely a/w under diuresis vs high Na diet as outpatient * Patient recently discharged on Bumex 1 mg PO BID, but this was further tapered down as outpatient * Patient with recent facial fractures with limit comfortably with eating (commonly eating soft processed foods, which are high in salt) - During last admission patient required up to Lasix IV 240 mg daily - Ongoing use of Amlodipine possible contributor to persistent LE edema, discontinued on admission - Carvedilol changed to Atenolol (improved HF outcomes, titrate for BP/HR - Strict I/O, goal for 102 L net negative daily (currently - 700 cc) - Continue low Na diet and 1500 mL fluid restriction - S/p 80 mg IV lasix on admission, started on Lasix 10 mg/hr, ongoing --- Continue Lasix drip at 10 mg/hr, for ongoing diuresis LLE Ecchymosis/Hematoma - Evidenced on US 11/05 * US: Impression 7.4 x 1.9 x 2.2 cm elongated complex fluid collection within the posterior left thigh suggestive of a hematoma. - Anticoagulation held --- Thigh/hip pain improved with Dilaudid 0.125 PRN and scheduled Tylenol, improving on physical exam Fe Deficiency - Literature review supports improved outcomes in HF patient with supplementation of iron for Ferritin < 100 - Patient's Ferritin 58.9 - Repletion ordered Aortic stenosis - Moderate - EF 50-55% on Echo 09/11 - Evidenced on exam, otherwise asymptomatic YUMIKO (acute kidney injury)/ Single Kidney - Likely a/w HF - Known hx of single kidney/PACO - Renal US performed last admission, if improving will defer further imaging. --- Cr 2.9 on admission, down to 2.5 this AM, likely a/w fluid overload, continue diuresis Diabetes mellitus, type 2: - Hemoglobin A1C 5.5 in May, no need to repeat as < 3 months - Unclear if she really requires any treatment - Start Lantus 5 nits HS (hold for glucose < 120. - Novolog: * Goal BSG Range: Low 110 mg/dL, High 140 mg/dL * Correction Factor: 45 mg/dL/unit * Carbohydrate ratio = 15 g/unit * BSGs ACHS if eating, q6h if npo Atrial fibrillation: - Currently ventricular paced - Eliquis (reduced dose due to age and Cr) for anticoagulation - Switched to carvedilol for rate control due to HF on admission CAD (coronary artery disease): - Continue Eliquis, carvedilol, ISMN, simvastatin Hypokalemia - 127 on 11/05 - Likely a/w hypervolemia - Continue diuresis (2) Aortic stenosis: (3) YUMIKO (acute kidney injury): (4) Diabetes mellitus, type 2: (5) Atrial fibrillation: (6) CAD (coronary artery disease): Plan FEN: Low Na, HH, fluid restriction, IV Lasix Code status: Conditional DVT ppx: Eliquis (renal dosing) - continue hold for hematoma Isolation: None Dispo:PCU Admission and Anticipated Discharge Date Admission Date: November 03, 2022 Supervising Physician Co-Signing Physician Notes I personally examined the patient and verified all gamez points of history and exam, discussed case, and agree with decision making with Dr Hall Continues to feel slightly better and swelling is slowly improving. No new complaints or issues. Updated daughter. Tried to call new PCPleft message to call back so that I can update him on her situation.HEENT normocephalic atraumatic mucous membranes moist, breathing unlabored no accessory muscles good effort skin no rashes no pallor or icterus neuro no focal deficits Acute on chronic diastolic CHFfortunately not very severe with her breathing. Continue diuresis to as best she can tolerate - continues to improve. Seems to be exquisitely salt sensitiveand I suspect the saltiness of her food (as corroborated by her family) had as much or more to do with her fluid retention than her diuretic dosingcontinue to follow closely. Her creatinine continues to slowly improve with diuresis thigh hematoma - resume Eliquis, follow Fe deficiency - literature suggests significant improvement in quality of life w Fe replacement for CHF patients w ferritin <100 - replacement ordered otherwise as above Subjective 11/08: Cammy notes that she is feeling much better today, her leg pain is well controlled and she has no new breathing concerns. She remains occasionally dyspneic, but notes no new or worsening symptoms. She denies any chest pain or pleuritic pain. Booker remains intact w/o dysuria. She has not experienced diarrhea or constipation. Patient notes that she is stronlgy anticipating getting home to family. Questions and concerns addressed. Physical Exam Physical Exam: Gen: NAD, interactive, uncomfortable HEENT: NCAT, supple, no LAD, no JVD Resp:Non-labored, resolved crackles, otherwise CTAB CV:RRR, normal S1/S2, systolic ejection murmur at RUSB/LUSB Abd: Soft, non-distended, no TTP, normoactive bowels, no masses, no HSM Extr: 2+ dp bilaterally, 1+ bilateral pitting edema, no warmth/erythema, no deep calf pain * Improving ecchymosis of left posterior thigh w/o TTP, firm fluid collection inferior to ecchymosis Results & Data Results & Data Vital Signs (Past 12 Hours) Vital Signs Temp Pulse Pulse Resp BP Pulse Ox O2 Del Method 11/08/22 03:00 Nasal Cannula 11/08/22 02:47 36.5 C 60 19 117/68 94 Nasal Cannula 11/07/22 23:14 60 11/07/22 23:00 36.4 C L 60 16 127/58 L 100 Nasal Cannula 11/07/22 21:59 Nasal Cannula O2 Flow Rate 11/08/22 03:00 3 11/08/22 02:47 3 11/07/22 23:14 11/07/22 23:00 11/07/22 21:59 3 Resident Activity Tracking Resident Involvement: Resident Care Provided Care Provided: Adult Hospital Medicine
[2022-11-08 07:29] LABS: BUN Creatinine Ratio 29.2 (10-20); Calcium 8.7 mg/dl (8.6-10.3); Creatinine Clr Calc Pharmacy 18.3 ml/min; Est GFR (African American) 19.5 ml/min; Est GFR (Non-African American) 16.8 ml/min; Potassium 3.8 mmol/L (3.5-5.1)
[2022-11-08 07:31] LABS: Hematocrit (blood only) 27.7 % (37.0-47.0); Mean Corpuscular Hemoglobin 25.1 pg (25.0-34.0); Mean Corpuscular Hgb Conc 32.5 g/dL (32.0-36.0); Mean Corpuscular Volume 77.4 fL (80.0-100.0); Mean Platelet Volume 9.8 fL (9.4-12.4); Nucleated RBC # (auto) 0.09 K/uL (0-0.12); Nucleated RBC % (auto) 1.3 %; Platelet Count 118 K/uL (130-400); RDW Coefficient of Variation 16.3 % (11.5-14.5); RDW Standard Deviation 45.7 fL (36.4-46.3); Red Blood Count 3.58 M/uL (4.20-5.40)
[2022-11-08] MEDS: CHOLECALCIFEROL 1,000 UNITS 25 MCG TAB PO SCH ×2 (08:00→20:02)
[2022-11-08] MEDS: DOCUSATE SODIUM 100 MG CAP PO SCH ×2 (08:00→20:02)
[2022-11-08] MEDS: ACETAMINOPHEN 500 MG TAB PO SCH ×3 (08:00→20:00)
[2022-11-08] MEDS: POLYETHYLENE (MIRALAX) 17 GM PACK PO SCH (08:00)
[2022-11-08] MEDS: carvediloL 3.125 MG TAB PO SCH ×2 (08:00→17:02)
[2022-11-08] MEDS: ISOSORBIDE MONO EXTENDED REL 30 MG TABCR PO SCH (08:01)
[2022-11-08] MEDS: FLUTICASONE FUROATE 100MCG 14 PUFFS/INHALER INH SCH (08:01)
[2022-11-08] MEDS: UMECLIDINIUM/VILANTEROL 62.5/25MCG 7 PUFFS/INHALER INH SCH (08:01)
[2022-11-08] MEDS: INSULIN ASPART PER UNIT CHARGE SC SCH ×4 (08:06→21:50)
[2022-11-08] MEDS: busPIRone 5 MG TAB PO PRN (14:40)
--- NOTE | 2022-11-08 19:43 | Billing Data ---
Date of Service November 08, 2022 Coding Level of Care Code 95421 SUB INP/OBS CARE MIN
[2022-11-08] MEDS ORDERED: IRON SUCROSE 200 MG in 0.9 % SODIUM CHLORIDE 100 ML IV ONE (20:00)
[2022-11-08] MEDS: APIXABAN 2.5 MG TAB PO SCH (20:01)
[2022-11-08] MEDS: SIMVASTATIN 20 MG TAB PO SCH (20:03)
[2022-11-08] MEDS: MELATONIN 3 MG TAB PO SCH (20:03)
[2022-11-08] MEDS: LANTUS PER UNIT CHARGE SQ SCH (21:50)
[2022-11-09] MEDS ORDERED: NYSTATIN POWDER 15GM BTL EXT SCH (00:47)
[2022-11-09] MEDS ORDERED: levoFLOXacin 750 MG TAB PO SCH (00:47)
[2022-11-09] MEDS ORDERED: bisacodyL 10 MG SUPP PR PRN (00:47)
[2022-11-09] MEDS ORDERED: BUMETANIDE 1 MG TAB PO SCH (00:47)
[2022-11-09] MEDS ORDERED: NITROGLYCERIN SL 0.4 MG/TAB TAB SL PRN (00:47)
[2022-11-09] MEDS ORDERED: ALBUTEROL HFA 8 GM INHALER INH PRN (00:47)
[2022-11-09] MEDS ORDERED: amLODIPine BESYLATE 5 MG TAB PO SCH ×2 (06:50→09:00)
--- NOTE | 2022-11-09 06:56 | Hospitalist Progress Note ---
Date of Service November 09, 2022 Assessment & Plan (1) Acute on chronic heart failure with preserved ejection fraction: Plan: Camym is an 82 year old female with history of MR< CAD, aortic stenosis, HFpEF, DM2, recent CHI with multiple facial fractures, single kidney, long term anticoagulation, tachy-joe syndrome, secondary hyperparathyroidism, renal artery stenosis, RLS, pulmonary emphysema w/ COPD, anemia, and PUD who presents for acute on chronic heart failure and was admitted for diuresis. HFpEF (Acute on Chronic) - Possibly d/t outpatient under diuresis vs likely high Na diet as outpatient * Patient recently discharged on Bumex 1 mg PO BID, but this was further tapered down as outpatient * Patient with recent facial fractures with limit comfortably with eating (commonly eating soft processed foods, which are high in salt) - During last admission patient required up to Lasix IV 240 mg daily to promote diuresis - Outpatient use of Amlodipine possible contributor to persistent LE edema, discontinued on admission - Atenolol changed to Carvedilol on admission (improved HF outcomes, titrate for BP/HR) - Fluid balance Neg 477 in last 24 hours. * Continue low Na diet and 1500 mL fluid restriction - S/p 80 mg IV lasix on admission, started on Lasix 10 mg/hr, ongoing - Repleted Iron since ferrtin <100. YUMIKO (acute kidney injury)/ Single Kidney - Likely a/w HF - Known hx of single kidney/PACO - Renal US performed last admission, --- Cr 2.9 on admission, down to 2.06 this AM, likely a/w fluid overload, continue diuresis Anorexia (Decreased Appetite) - Acute, undifferentiated - W/o abdominal pain, nausea, or emesis - Trial of Nystatin swish/swallow - B12 level ordered Aortic stenosis - Moderate - EF 50-55% on Echo 09/11 - Evidenced on exam, otherwise asymptomatic LLE Ecchymosis/Hematoma - Evidenced on US 11/05 - US: 7.4 x 1.9 x 2.2 cm elongated complex fluid collection - posterior left thigh suggestive of a hematoma. - Anticoagulation held initially - Restarted anticoagulation 11/09 Diabetes mellitus, type 2: - Hemoglobin A1C 5.5 in August, no need to repeat as < 3 months - Sitagliptin on hold. - Started Lantus 5 nits HS and Log Atrial fibrillation: - Currently ventricular paced - Eliquis (reduced dose due to age and Cr) for anticoagulation - Switched to carvedilol for rate control due to HF on admission CAD (coronary artery disease): - Continue Eliquis, carvedilol, ISMN, simvastatin Hyponatremia - Likely a/w hypervolemia - Continue diuresis (2) Aortic stenosis: (3) YUMIKO (acute kidney injury): (4) Diabetes mellitus, type 2: (5) Atrial fibrillation: (6) CAD (coronary artery disease): Plan FEN: Low Na, HH, fluid restriction, IV Lasix Code status: Conditional (Declines chest compression/defibrillation, ok with intubation) DVT ppx: Eliquis restarted 11/09 Isolation: None Dispo:Med/surg Admission and Anticipated Discharge Date Admission Date: November 03, 2022 Supervising Physician Co-Signing Physician Notes Resident Physician Supervision Note: I independently interviewed and examined the patient and verified the gamez history and physical, reviewed labs and image studies and agree with resident findings and care plan. Subjective 11/09: Patient notes ongoing improvement in breathing and LE swelling, she states that she remains dyspneic, but it is improved. She also notes that her thigh pain is improving and the pain medications are helpful. She denies any chest pain or pleuritic pain. Booker remains intact w/o dysuria. Patient notes that she woke up today w/o an appetite, she is not experiencing any nausea, emesis, or ab dominal pain. Physical Exam Physical Exam: Gen: NAD, interactive, uncomfortable HEENT: NCAT, supple, no LAD, no JVD Resp:Non-labored, faint resolving crackles, otherwise CTAB CV:RRR, normal S1/S2, systolic ejection murmur at RUSB/LUSB Abd: Soft, non-distended, no TTP, normoactive bowels, no masses, no HSM Extr: 2+ dp bilaterally, 1+ bilateral pitting edema (improving), no warmth/erythema, no deep calf pain * Improving ecchymosis of left posterior thigh w/o TTP, fluid collection inferior to ecchymosis Results & Data Results & Data Vital Signs (Past 12 Hours) Vital Signs Temp Pulse Pulse Resp BP Pulse Ox O2 Del Method 11/08/22 22:20 62 11/09/22 00:55 Room Air 07/22/23 00:47 36.4 C L 61 18 95/63 L 96 Nasal Cannula 11/08/22 22:37 36.6 C 60 20 105/60 98 Nasal Cannula 11/08/22 20:00 Nasal Cannula 11/08/22 19:11 36.6 C 62 20 130/70 98 Nasal Cannula O2 Flow Rate 11/08/22 22:20 11/09/22 00:55 11/09/22 00:47 3 11/08/22 22:37 3 11/08/22 20:00 3 11/08/22 19:11 3 Resident Activity Tracking Resident Involvement: Resident Care Provided Care Provided: Adult [facility]
[2022-11-09 07:37] LABS: Hemoglobin 8.9 g/dl (12.0-16.0); Mean Corpuscular Hemoglobin 25.1 pg (25.0-34.0); Mean Corpuscular Volume 76.1 fL (80.0-100.0); Mean Platelet Volume 9.9 fL (9.4-12.4); Nucleated RBC # (auto) 0.08 K/uL (0-0.12); Nucleated RBC % (auto) 1.2 %; Platelet Count 109 K/uL (130-400); RDW Coefficient of Variation 16.7 % (11.5-14.5); RDW Standard Deviation 45.4 fL (36.4-46.3); Red Blood Count 3.55 M/uL (4.20-5.40); White Blood Count 6.84 K/ul (4.8-10.8)
[2022-11-09] MEDS: UMECLIDINIUM/VILANTEROL 62.5/25MCG 7 PUFFS/INHALER INH SCH (08:27)
[2022-11-09] MEDS: POLYETHYLENE (MIRALAX) 17 GM PACK PO SCH (08:27)
[2022-11-09] MEDS: ISOSORBIDE MONO EXTENDED REL 30 MG TABCR PO SCH (08:28)
[2022-11-09] MEDS: FLUTICASONE FUROATE 100MCG 14 PUFFS/INHALER INH SCH (08:28)
[2022-11-09] MEDS: carvediloL 3.125 MG TAB PO SCH ×2 (08:29→17:19)
[2022-11-09] MEDS: ACETAMINOPHEN 500 MG TAB PO SCH ×3 (08:29→20:26)
[2022-11-09] MEDS: CHOLECALCIFEROL 1,000 UNITS 25 MCG TAB PO SCH ×2 (08:30→20:24)
[2022-11-09] MEDS: CALCIUM 600MG + VIT D 400 IU TAB PO SCH (08:38)
[2022-11-09] MEDS: MULTIVITAMIN TAB PO SCH (08:38)
[2022-11-09] MEDS ORDERED: ATENOLOL 50 MG TABLET PO SCH (09:00)
[2022-11-09] MEDS ORDERED: SITagliptin PHOSPHATE 25 MG TAB PO SCH (09:00)
[2022-11-09] MEDS: APIXABAN 2.5 MG TAB PO SCH ×2 (09:09→20:24)
[2022-11-09] MEDS: INSULIN ASPART PER UNIT CHARGE SC SCH ×4 (09:09→21:07)
[2022-11-09 09:41] LABS: BUN Creatinine Ratio 31.1 (10-20); Calcium 8.7 mg/dl (8.6-10.3); Creatinine Clr Calc Pharmacy 22.5 ml/min; Est GFR (Non-African American) 21.6 ml/min; Potassium 3.9 mmol/L (3.5-5.1)
[2022-11-09] MEDS: FUROSEMIDE 100 MG in DEXTROSE 5% 90 ML IV SCH ×2 (10:06→19:34)
[2022-11-09] MEDS: HYDROmorphone INJ 0.5 MG/0.5 ML SYR IV PRN ×2 (10:44→21:07)
[2022-11-09] MEDS: NYSTATIN SUSP 500,000 U/5 ML UDC PO SCH ×3 (13:06→20:24)
[2022-11-09] MEDS: busPIRone 5 MG TAB PO PRN (16:03)
[2022-11-09] MEDS: SIMVASTATIN 20 MG TAB PO SCH (20:24)
[2022-11-09] MEDS: MELATONIN 3 MG TAB PO SCH (21:07)
[2022-11-09] MEDS: LANTUS PER UNIT CHARGE SQ SCH (21:08)
[2022-11-10] MEDS: FUROSEMIDE 100 MG in DEXTROSE 5% 90 ML IV SCH ×2 (03:52→15:50)
[2022-11-10] MEDS: HYDROmorphone INJ 0.5 MG/0.5 ML SYR IV PRN ×2 (05:04→21:11)
[2022-11-10 05:49] LABS: Hematocrit (blood only) 26.8 % (37.0-47.0); Hemoglobin 8.7 g/dl (12.0-16.0)
[2022-11-10 06:05] LABS: BUN Creatinine Ratio 30.8 (10-20); Calcium 8.7 mg/dl (8.6-10.3); Est GFR (African American) 28.5 ml/min; Est GFR (Non-African American) 24.6 ml/min; Potassium 4.1 mmol/L (3.5-5.1)
--- NOTE | 2022-11-10 07:46 | Hospitalist Progress Note ---
Date of Service November 10, 2022 Assessment & Plan (1) Acute on chronic heart failure with preserved ejection fraction: Plan: Cammy is an 82 year old female with history of MR, CAD, aortic stenosis, HFpEF, DM2, recent CHI with multiple facial fractures, single kidney, fdc anticoagulation, tachy-joe syndrome, secondary hyperparathyroidism, renal artery stenosis, RLS, pulmonary emphysema w/ COPD, anemia, and PUD who presents for acute on chronic heart failure and was admitted for diuresis. HFpEF (Acute on Chronic) - Possibly d/t outpatient under diuresis vs likely high Na diet as outpatient * Patient recently discharged on Bumex 1 mg PO BID, but this was further tapered down as outpatient * Patient with recent facial fractures with limit comfortably with eating (commonly eating soft processed foods, which are high in salt)- During last admission patient required up to Lasix IV 240 mg daily to promote diuresis - Outpatient use of Amlodipine possible contributor to persistent LE edema, discontinued on admission - Atenolol changed to Carvedilol on admission (improved HF outcomes, titrate for BP/HR) - Fluid balance Neg ~400 in last 24 hours. * Continue low Na diet and 1500 mL fluid restriction- S/p 80 mg IV lasix on admission, started on Lasix 10 mg/hr, ongoing - Will further review with cardiology in am regarding switching to oral diuretics since net fluid balance has stabilized. - Repleted Iron since ferrtin <100. YUMIKO (acute kidney injury)/ Single Kidney - Known hx of single kidney/PACO - Renal US performed last admission, - Cr 2.9 on admission, possibly from cardio/renal syndrome. - Creat 1.85 today. Aortic stenosis; Moderate - EF 50-55% on Echo 09/11 - Evidenced on exam, otherwise asymptomatic Atrial fibrillation: - Currently ventricular paced - Eliquis (reduced dose due to age and Cr) for anticoagulation - Switched to carvedilol for rate control due to HF on admission Anorexia (Decreased Appetite) - Trial of Nystatin swish/swallow- symptoms improved - B12 level normal LLE Ecchymosis/Hematoma - Evidenced on US 11/05 - US: 7.4 x 1.9 x 2.2 cm elongated complex fluid collection - posterior left thigh suggestive of a hematoma. - Anticoagulation held initially - Restarted anticoagulation 11/09 Diabetes mellitus, type 2: - Hemoglobin A1C 5.5 in August, no need to repeat as < 3 months - Sitagliptin on hold. - Started Lantus 5 nits HS and Log CAD (coronary artery disease): - Continue Eliquis, carvedilol, ISMN, simvastatin Hyponatremia - Likely a/w hypervolemia - Continue diuresis FEN: Low Na, HH, fluid restriction, IV Lasix Code status: Conditional (Declines chest compression/defibrillation, ok with intubation) DVT ppx: Eliquis restarted 11/09 Isolation: None Dispo:Med/surg (2) Aortic stenosis: (3) YUMIKO (acute kidney injury): (4) Diabetes mellitus, type 2: (5) Atrial fibrillation: (6) CAD (coronary artery disease): Admission and Anticipated Discharge Date Admission Date: November 03, 2022 Supervising Physician Co-Signing Physician Notes Resident Physician Supervision Note: I independently interviewed and examined the patient and verified the gamez history and physical, reviewed labs and image studies and agree with resident findings and care plan. Subjective 11/10: Patient's breathing and LE edema remains symptomatically improved. Dyspnea improving, but not resolved. Thigh pain also improving and well managed with pain medication. She denies chest pain, pleuritic pain, abdominal pain, or lack of appetite. Physical Exam Physical Exam: Gen: NAD, interactive, comfortable HEENT: NCAT, supple, no JVD Resp:Non-labored, faint resolving crackles, otherwise CTAB CV:RRR, normal S1/S2, systolic ejection murmur at RUSB Abd: Soft, non-distended, no TTP, normoactive bowels, no masses, no HSM Extr: 2+ dp bilaterally, 1+ bilateral pitting edema (improving), no warmth/erythema, no deep calf pain * Improving ecchymosis of left posterior thigh w/o TTP Results & Data Results & Data Vital Signs (Past 12 Hours) Vital Signs Temp Pulse Resp BP Pulse Ox O2 Del Method O2 Flow Rate 11/10/22 07:35 Nasal Cannula 3 11/10/22 07:27 36.4 C L 65 16 136/67 96 Nasal Cannula 3 11/09/22 20:15 Nasal Cannula, CPAP 3 11/09/22 20:00 36.5 C 63 18 123/57 L 96 Nasal Cannula 3 Resident Activity Tracking Resident Involvement: Resident Care Provided Care Provided: Adult Hospital Medicine
[2022-11-10] MEDS: FLUTICASONE FUROATE 100MCG 14 PUFFS/INHALER INH SCH (08:08)
[2022-11-10] MEDS: UMECLIDINIUM/VILANTEROL 62.5/25MCG 7 PUFFS/INHALER INH SCH (08:08)
[2022-11-10] MEDS: NYSTATIN SUSP 500,000 U/5 ML UDC PO SCH ×4 (08:08→19:32)
[2022-11-10] MEDS: MULTIVITAMIN TAB PO SCH (08:08)
[2022-11-10] MEDS: CALCIUM 600MG + VIT D 400 IU TAB PO SCH (08:09)
[2022-11-10] MEDS: CHOLECALCIFEROL 1,000 UNITS 25 MCG TAB PO SCH ×2 (08:09→19:30)
[2022-11-10] MEDS: ISOSORBIDE MONO EXTENDED REL 30 MG TABCR PO SCH (08:09)
[2022-11-10] MEDS: APIXABAN 2.5 MG TAB PO SCH ×2 (08:09→19:31)
[2022-11-10] MEDS: carvediloL 3.125 MG TAB PO SCH ×2 (08:09→17:13)
[2022-11-10] MEDS: POLYETHYLENE (MIRALAX) 17 GM PACK PO SCH (08:10)
[2022-11-10] MEDS: ACETAMINOPHEN 500 MG TAB PO SCH ×3 (08:35→19:33)
[2022-11-10] MEDS: INSULIN ASPART PER UNIT CHARGE SC SCH ×4 (08:43→20:53)
[2022-11-10] MEDS: busPIRone 5 MG TAB PO PRN (14:01)
[2022-11-10] MEDS: SIMVASTATIN 20 MG TAB PO SCH (19:34)
[2022-11-10] MEDS: MELATONIN 3 MG TAB PO SCH (20:53)
[2022-11-10] MEDS: LANTUS PER UNIT CHARGE SQ SCH (20:53)
[2022-11-11] MEDS: FUROSEMIDE 100 MG in DEXTROSE 5% 90 ML IV SCH ×2 (01:17→12:19)
[2022-11-11] MEDS: HYDROmorphone INJ 0.5 MG/0.5 ML SYR IV PRN ×2 (01:43→16:21)
--- NOTE | 2022-11-11 07:21 | Hospitalist Progress Note ---
Date of Service November 11, 2022 Assessment & Plan (1) Acute on chronic heart failure with preserved ejection fraction: Plan: Cammy is an 82 year old female with history of MR, CAD, aortic stenosis, HFpEF, DM2, recent CHI with multiple facial fractures, single kidney, fci anticoagulation, tachy-joe syndrome, secondary hyperparathyroidism, renal artery stenosis, RLS, pulmonary emphysema w/ COPD, anemia, and PUD who presents for acute on chronic heart failure and was admitted for diuresis. HFpEF (Acute on Chronic) - Possibly d/t outpatient under diuresis vs likely high Na diet as outpatient * Patient recently discharged on Bumex 1 mg PO BID, but this was further tapered down as outpatient * Patient with recent facial fractures with limit comfortably with eating (commonly eating soft processed foods, which are high in salt) * During last admission patient required up to Lasix IV 240 mg daily to promote diuresis - Outpatient use of Amlodipine possible contributor to persistent LE edema, discontinued on admission - Atenolol changed to Carvedilol on admission (improved HF outcomes, titrate for BP/HR) - Fluid balance only slightly negative ~50mL in last 24 hours. * S/p 80 mg IV lasix on admission, kept on Lasix 10 mg/hr, discontinued 11/11 * 725 Added Metolazone 5 mg and Bumex 5 mg per Cardiology recommendation * Continue low Na diet and 1500 mL fluid restriction - Repleted Iron since ferrtin <100 YUMIKO (acute kidney injury)/ Single Kidney - Known hx of single kidney/PACO - Renal US performed last admission, - Cr 2.9 on admission, possibly from cardio/renal syndrome. - Creat 1.57 today. Restless Leg Syndrome - Chronic diagnosis, no outpatient mgmt - Continues to awaken patient at night w/ increasing pain - Rx for Ropinirole 0.25 mg qHS started 11/11 Aortic stenosis; Moderate - EF 50-55% on Echo 09/11 - Evidenced on exam, otherwise asymptomatic Atrial fibrillation: - Currently ventricular paced - Eliquis (reduced dose due to age and Cr) for anticoagulation - Switched to carvedilol for rate control due to HF on admission Anorexia (Decreased Appetite) - Trial of Nystatin swish/swallow (start 11/09)- symptoms improved - B12 level normal LLE Ecchymosis/Hematoma - Evidenced on US 11/05 - US: 7.4 x 1.9 x 2.2 cm elongated complex fluid collection - posterior left thigh suggestive of a hematoma. - Anticoagulation held initially - Restarted anticoagulation 11/09, Hgb stable Diabetes mellitus, type 2: - Hemoglobin A1C 5.5 in August, no need to repeat as < 3 months - Sitagliptin on hold. - Started Lantus 5 nits HS and Log CAD (coronary artery disease): - Continue Eliquis, carvedilol, ISMN, simvastatin Hyponatremia - Likely a/w hypervolemia - Continue diuresis FEN: Low Na, HH, fluid restriction, PO Diuresis Code status: Conditional (Declines chest compression/defibrillation, ok with intubation) DVT ppx: Eliquis restarted 11/09 Isolation: None Dispo:Med/surg, plans to transition to [place] w/ family upon discharge, CM aware (2) Aortic stenosis: (3) YUMIKO (acute kidney injury): (4) Diabetes mellitus, type 2: (5) Atrial fibrillation: (6) CAD (coronary artery disease): Admission and Anticipated Discharge Date Admission Date: November 03, 2022 Supervising Physician Co-Signing Physician Notes Resident Physician Supervision Note: I independently interviewed and examined the patient and verified the gamez history and physical, reviewed labs and image studies and agree with resident findings and care plan. Subjective 11/11: Patient comfortable in bedside chair this AM. She notes that her dyspnea is unchanged, but overall improved since admission. She continues to have significant LE edema, but patient and family feel this is also improving. Patient notes good appetite without nausea or emesis. She denies any chest pain, pleuritic pain, headaches, or lightheadedness. Patient continues to urinate via Booker w/o dysuria. Physical Exam Physical Exam: Gen: NAD, interactive, comfortable HEENT: NCAT, supple, JVD Resp:Non-labored, faint resolving crackles, otherwise CTAB CV:RRR, normal S1/S2, systolic ejection murmur at RUSB Abd: Soft, non-distended, no TTP, normoactive bowels, no masses, no HSM Extr: 2+ dp bilaterally, 2+ bilateral pitting edema (improved when legs elevated), no warmth/erythema, no deep calf pain * Improving ecchymosis of left posterior thigh w/o TTP Results & Data Results & Data Vital Signs (Past 12 Hours) Vital Signs Temp Pulse Resp BP Pulse Ox O2 Del Method 11/10/22 22:51 36.4 C L 64 18 143/72 H 96 Room Air Resident Activity Tracking Resident Involvement: Resident Care Provided Care Provided: Adult Hospital Medicine
[2022-11-11 07:51] LABS: Hematocrit (blood only) 29.2 % (37.0-47.0); Hemoglobin 9.4 g/dl (12.0-16.0)
[2022-11-11] MEDS: INSULIN ASPART PER UNIT CHARGE SC SCH ×4 (08:57→21:22)
[2022-11-11] MEDS: FLUTICASONE FUROATE 100MCG 14 PUFFS/INHALER INH SCH (08:57)
[2022-11-11 08:58] LABS: Calcium 9.1 mg/dl (8.6-10.3); Potassium 3.9 mmol/L (3.5-5.1)
[2022-11-11] MEDS: carvediloL 3.125 MG TAB PO SCH ×2 (08:58→17:27)
[2022-11-11] MEDS: NYSTATIN SUSP 500,000 U/5 ML UDC PO SCH ×4 (08:58→21:16)
[2022-11-11] MEDS: MULTIVITAMIN TAB PO SCH (08:59)
[2022-11-11] MEDS: CALCIUM 600MG + VIT D 400 IU TAB PO SCH (08:59)
[2022-11-11] MEDS: ISOSORBIDE MONO EXTENDED REL 30 MG TABCR PO SCH (08:59)
[2022-11-11] MEDS: CHOLECALCIFEROL 1,000 UNITS 25 MCG TAB PO SCH ×2 (08:59→21:15)
[2022-11-11] MEDS: POLYETHYLENE (MIRALAX) 17 GM PACK PO SCH (09:00)
[2022-11-11] MEDS: APIXABAN 2.5 MG TAB PO SCH ×2 (09:00→21:16)
[2022-11-11] MEDS: ACETAMINOPHEN 500 MG TAB PO SCH ×3 (09:02→21:20)
[2022-11-11 09:03] LABS: BUN Creatinine Ratio 33.1 (10-20); Creatinine Clr Calc Pharmacy 29.8 ml/min; Est GFR (African American) 34.7 ml/min
[2022-11-11] MEDS: UMECLIDINIUM/VILANTEROL 62.5/25MCG 7 PUFFS/INHALER INH SCH (10:41)
[2022-11-11] MEDS ORDERED: metOLazone 5 MG TABLET PO ONE (14:19)
[2022-11-11] MEDS ORDERED: BUMETANIDE 1 MG TAB PO ONE (14:19)
--- NOTE | 2022-11-11 15:22 | Cardiology Consultation ---
Date of Consultation November 11, 2022 Assessment & Plan (1) (HFpEF) heart failure with preserved ejection fraction: 82-year-old woman with preserved systolic function and moderate valvular heart disease and renal insufficiency who has refractory congestive heart failure. Some progress with reduced edema but she still has somewhat labored respirations and appears persistently hypervolemic. Would recommend discontinuing intravenous furosemide infusion and replacing with bumetanide 5 mg IV twice daily with metolazone 5 mg p.o. 1/2-hour before the morning bumetanide dose. Could give a dose of metolazone now and bumetanide 5 mg IV 1/2-hour later to enhance diuresis today rather than waiting until tomorrow. Before morning diuretic dosing, would reassess volume status, electrolytes, and renal function to determine whether additional metolazone would be necessary. (2) Permanent atrial fibrillation: Continue atenolol for rate control and apixaban for anticoagulation. (3) Chronic kidney disease, stage 3: Monitor volume status/renal function/electrolytes daily. (4) Pacemaker: Single-chamber Medtronic pacemaker appears to be functioning appropriately. (5) Moderate aortic stenosis: Medical management. (6) Moderate mitral regurgitation: Medical management. (7) Leg edema: Responding to diuresis. Patient is followed routinely as an outpatient by Dr. Marcos, he will be rounding in the morning to offer additional recommendations. History of Present Illness Reason for Consultation: Diuresis for HFpEF ([facility] pt. outpt) Requesting Physician: Theresa Hall DO Attending Physician: Joan Cotton MD History of Present Illness 82-year-old woman with HFpEF requiring repeated hospitalizations for IV d iuretics, moderate valvular heart disease (moderate AI/MR/TR), single-chamber (ventricular) Medtronic pacemaker, chronic renal insufficiency, and permanent atrial fibrillation (atenolol/apixaban), was hospitalized for a week or so in August and again in September for heart failure, readmitted from nursing facility on 11/03/2022 with recurrent leg edema, progressive dyspnea exertion, with evidence of CHF on evaluation in ER. During her current hospitalization there has been no indication of ongoing myocardial ischemia, rhythm issues (ventricular paced with background atrial fibrillation), but her congestive heart failure and chronic renal insufficiency have been refractory to management. She has been on IV furosemide for some time with gradual decrease in leg edema, variable creatinine (maximum 3.18, current 1.57), and uncertain weight change (marked variation in daily weights recorded). She denies dyspnea at rest and has not had chest pain at any time recently. She does note her leg edema has decreased. No significant somatic complaints at rest at the time of our evaluation. Allergies Allergy/AdvReac Type Severity Reaction Status Date / Time chlorthalidone Allergy Severe Swelling Verified 11/03/22 10:43 of Lip/Tongue/Throat Penicillins Allergy Severe Swelling Verified 11/03/22 10:43 of Lip/Tongue/Throat MANDEEP Inhibitors Allergy Unknown Unknown Verified 11/03/22 10:43 trazodone Allergy Unknown Unknown Verified 11/03/22 10:43 Home Medications Medication Instructions Recorded Confirmed Type calcium citrate 250 mg 1 tab PO QAM 11/07/18 11/03/22 History calcium-vitamin D3 5 mcg (200 unit) tablet cranberry concentrate-ascorbic 1 cap PO QAM 11/07/18 11/03/22 History acid 4,200 mg-20 mg capsule multivitamin 1 tab PO QAM 11/07/18 11/03/22 History cholecalciferol (vitamin D3) 50 50 mcg PO BID #30 caps 09/12/21 11/03/22 Rx mcg (2,000 unit) capsule nitroglycerin 0.4 mg sublingual 0.4 mg sublingual UD PRN chest 09/12/21 11/03/22 Rx tablet pain #20 tabs sitagliptin phosphate 25 mg tablet 25 mg PO QAM #90 tabs 09/12/21 11/03/22 Rx (Januvia) atenolol 50 mg tablet 50 mg PO QAM #90 tabs 01/10/22 11/03/22 Rx simvastatin 20 mg tablet 20 mg PO HS #90 tabs 01/10/22 11/03/22 Rx albuterol sulfate 90 mcg/actuation 2 puff inhalation Q4H PRN 02/21/22 11/03/22 Rx aerosol inhaler (Ventolin HFA) shortness of breath or wheezing #18 grams fluticasone fur. 100 mcg-umeclid 1 inh inhalation DAILY #3 Inhalers 02/21/22 11/03/22 Rx 62.5 mcg-vilant 25 mcg inhalat.powder (Trelegy Ellipta) isosorbide mononitrate 30 mg 90 mg PO QAM #270 tabs 08/01/22 11/03/22 Rx tablet,extended release 24 hr apixaban 5 mg tablet (Eliquis) 5 mg PO BID 30 days #60 tabs 09/05/22 11/03/22 Rx nebulizers #1 ea 09/22/22 09/25/22 Rx amlodipine 10 mg tablet 10 mg PO DAILY #90 tabs 09/25/22 11/03/22 Rx buspirone 5 mg tablet 5 mg PO BID PRN anxiety #60 tabs 09/25/22 11/03/22 Rx bumetanide 1 mg tablet 1 mg PO BID 14 days #28 tabs 10/23/22 11/03/22 Rx acetaminophen 500 mg tablet 1,000 mg PO TID pain 11/03/22 11/03/22 History bisacodyl 10 mg rectal suppository 10 mg HI DAILY PRN On day 4 of no 11/03/22 11/03/22 History (Dulcolax (bisacodyl)) BM in the morning - Call docusate sodium 100 mg capsule 100 mg PO DAILY PRN On day 2 of no 11/03/22 11/03/22 History (Colace) BM in the morning levofloxacin 750 mg tablet 750 mg PO .EVERY 48 HOURS 11/03/22 11/03/22 History melatonin 1 mg tablet 2 mg PO HS 11/03/22 11/03/22 History nystatin 100,000 unit/gram topical 1 applic topical .EVERY SHIFT for 11/03/22 11/03/22 History powder intertrigo polyethylene glycol 3350 17 17 g PO DAILY PRN Give on day 3 of 11/03/22 11/03/22 History gram/dose oral powder (Miralax) no BM tramadol 50 mg tablet 50 mg PO Q6H PRN Severe Pain 11/03/22 11/03/22 History (Scale Score 7-10) Patient History Medical History (Updated 11/11/22 @ 15:28 by Desmond Overton MD) Acute anterior epistaxis Acute lower gastrointestinal bleeding Acute posterior epistaxis Anemia Anticoagulant long-term use Atrial fibrillation permanent, now s/p PPM (2016) Bradycardia CAD (coronary artery disease) [place] (1992) CHF (congestive heart failure) follows with [facility] (Dr. Marcos) Chronic diastolic CHF (congestive heart failure) Chronic kidney disease, stage 3 follows with nephrology ([facility]/Dr. Richard) Chronic respiratory failure with hypoxia COPD (chronic obstructive pulmonary disease) 2L HS + occasionally PRN, follows with [facility] COPD with asthma COPD with emphysema Deep vein thrombosis B/L LE (1967), Diabetes mellitus, type 2 NIDDM Dysfunction of left eustachian tube Elevated troponin Encounter for pre-operative examination Encounter for pre-operative examination GI bleed Hearing deficit History of kidney cancer s/p L nephrectomy (1997) Hyperlipidemia controlled Hypertension controlled Insomnia Insomnia Intractable back pain Leg swelling Mixed conductive and sensorineural hearing loss of left ear with restricted hearing of right ear Osteoarthritis Osteoporosis Pacemaker (2017) Medtronic Pulmonary nodule per records Restless leg syndrome Syncope UTI (urinary tract infection) Vitamin D deficiency Surgical History History of cardiac cath 10+ years ago, no stents History of cholecystectomy History of colonoscopy History of hip surgery R/L NABEEL History of myringotomy + Left ear tube removal: 06/09/19: LMA#4 atraumatic at [facility] History of nephrectomy left History of vaginal hysterectomy Hx of bilateral cataract extraction Status post placement of cardiac pacemaker 2016 Family History Brother Hypertension Mother Cardiac disorder Sister Lung cancer Aunt Lung cancer Father Pneumonia Unknown Family history of allergies Environmental allergies Denies family history of Ovarian cancer Prostate cancer Myocardial infarction Breast cancer Colorectal cancer Social History Smoking Status: Never smoker Tobacco Type: Cigarettes Age Started Using Tobacco: 26; Age Quit Using Tobacco: 55; packs per day: 1; Cigarettes Per Day: 20; Second Hand Exposure: No; Do You Dip or Chew Tobacco: No; Hx Alcohol Use: No Hx Substance Use: No Preferred Language: Italian Communication Ability: Effective Visual Impairment: No Limitations Hearing Ability: Hard of Hearing Personal Support Worker Required: No Beliefs That Will Affect Care: None marital status: / Current Living Situation: Alone Current Living Situation Comment: lives at [facility], is there for rehab current occupational status: retired current occupation: worked at [employer] Other Information That Helps Us Care for You: No Feels Safe at Home: Yes Safety Concerns: Feels Safe At This Time Childhood Exposure to Second-Hand Smoke: No Diet: other Diet Comment: Low sugar/ Sugar free options when possible caffeine: Yes (2 cups of coffee daily ) Dental Care, Regularly: No Physical Activity Frequency: Daily Seatbelt Use: always Sunscreen Use: Yes Assistive Devices: Walker Assistive Devices Comment: uses walker to ambulate Physical Exam Physical Exam: Elderly white female in no distress. BMI 33.5 BP mildly hypertensive (146/72 mmHg). Pulse 60 bpm and regular (paced). skin: Few ecchymoses chest wall, no generalized lesions. HEENT: unremarkable. Neck: JVP at the angle of the jaw 90 degrees, bilateral transmitted carotid murmur. Lungs: Moderately decreased breath sounds with dullness at the bases and few basilar crackles. Mildly increased respiratory effort without obvious accessory muscle use. Cardiac: regular rhythm, diminished but audible aortic closure sound, increased pulmonic closure sound, 3/6 crescendo decrescendo systolic ejection murmur right upper sternal border, 2 or 6 apical stock murmur rating to the axilla, no diastolic murmur. Abdomen: benign. Extremities: 23+ pitting but nontense edema, stasis changes both legs, pulses intact. Neurologic: normal affect and conversation, nonfocal. Results & Data Vital Signs (Past 12 Hours) Vital Signs Temp Pulse Resp BP Pulse Ox O2 Del Method O2 Flow Rate 11/11/22 14:51 97.5 F L 64 18 146/72 H 98 Nasal Cannula 3 11/11/22 08:18 Nasal Cannula 3 11/11/22 07:47 97.9 F 83 18 148/70 H 92 Nasal Cannula 2 Laboratory Results Troponin 41.3 on admission, not repeated. Current labs with sodium 133, normal potassium, BUN 52, creatinine 1.57 (creatinine range this hospitalization 1.573.11) BNP greater than 4700 on admission. Diagnostic Findings Echocardiogram August 2022 showed EF 50 to 55% with akinesis of the distal inferior wall, moderate aortic stenosis, moderate mitral regurgitation, moderate tricuspid regurgitation. ECG on admission showed ventricular paced rhythm at 60 bpm. Subsequent ECGs also showed ventricular paced rhythm at 74 bpm and 61 bpm. Chest x-ray showed mild pulmonary edema with small bilateral effusions. PG Care Time/CCT Total # of Minutes Spent Total Time Spent with Patient: Total time spent is greater than 50% in coordination of care (as documented) at patient's floor/unit and/or counseling patient: Coding Level of Care Code 56382 INT INP/OBS CARE MIN Diagnoses (HFpEF) heart failure with preserved ejection fraction I50.30 Permanent atrial fibrillation I48.21 Chronic kidney disease, stage 3 N18.3 Pacemaker Z95.0 Moderate aortic stenosis I35.0 Moderate mitral regurgitation I34.0 Leg edema R60.0
[2022-11-11] MEDS: rOPINIRole HCL 0.25 MG TABLET PO SCH (21:15)
[2022-11-11] MEDS: SIMVASTATIN 20 MG TAB PO SCH (21:16)
[2022-11-11] MEDS: busPIRone 5 MG TAB PO PRN (21:16)
[2022-11-11] MEDS: MELATONIN 3 MG TAB PO SCH (21:20)
[2022-11-11] MEDS: LANTUS PER UNIT CHARGE SQ SCH (21:21)
[2022-11-12] MEDS: HYDROmorphone INJ 0.5 MG/0.5 ML SYR IV PRN ×2 (02:40→15:40)
--- NOTE | 2022-11-12 07:00 | Hospitalist Progress Note ---
Date of Service November 12, 2022 Assessment & Plan (1) Acute on chronic heart failure with preserved ejection fraction: Plan: Cammy is an 82 year old female with history of MR, CAD, aortic stenosis, HFpEF, DM2, recent CHI with multiple facial fractures, single kidney, care home anticoagulation, tachy-joe syndrome, secondary hyperparathyroidism, renal artery stenosis, RLS, pulmonary emphysema w/ COPD, anemia, and PUD who presents for acute on chronic heart failure and was admitted for diuresis. HFpEF (Acute on Chronic) - Possibly d/t outpatient under diuresis vs likely high Na diet as outpatient * Patient recently discharged on Bumex 1 mg PO BID, but this was further tapered down as outpatient * Patient with recent facial fractures with limit comfortably with eating (commonly eating soft processed foods, which are high in salt) * During last admission patient required up to Lasix IV 240 mg daily to promote diuresis - Outpatient use of Amlodipine possible contributor to persistent LE edema, discontinued on admission - Atenolol changed to Carvedilol on admission (improved HF outcomes, titrate for BP/HR) - Fluid balance only negative ~ 1158 mL in last 24 hours. * S/p 80 mg IV Lasix on admission, kept on Lasix 10 mg/hr, discontinued 11/11 * 11/12 Added Metolazone 5 mg and Bumex 5 mg per Cardiology recommendation * Continue low Na diet and 1500 mL fluid restriction - Repleted Iron since <100 YUMIKO (acute kidney injury)/ Single Kidney - Known hx of single kidney/PACO - Renal US performed last admission, - Cr 2.9 on admission, possibly from cardio/renal syndrome. - Creat 1.46 today, downtrending Restless Leg Syndrome - Chronic diagnosis, no outpatient mgmt - Night time awakenings a/w leg pain and mobility - Rx for Ropinirole 0.25 mg qHS started 11/11 * Patient notes significant improvement in pain/sleep overnight * Continue Ropinirole 0.25 mg qHS Aortic stenosis; Moderate - EF 50-55% on Echo 09/11 - Evidenced on exam, otherwise asymptomatic Atrial fibrillation: - Currently ventricular paced - Eliquis (reduced dose due to age and Cr) for anticoagulation - Switched to carvedilol for rate control due to HF on admission Anorexia (Decreased Appetite) - Trial of Nystatin swish/swallow (start 11/09)- symptoms improved - B12 level normal LLE Ecchymosis/Hematoma - Evidenced on US 11/05 - US: 7.4 x 1.9 x 2.2 cm elongated complex fluid collection - posterior left thigh suggestive of a hematoma. - Anticoagulation held initially - Restarted anticoagulation 11/09, Hgb stable Diabetes mellitus, type 2: - Hemoglobin A1C 5.5 in August, no need to repeat as < 3 months - Sitagliptin on hold. - Started Lantus 5 nits HS and Log CAD (coronary artery disease): - Continue Eliquis, carvedilol, ISMN, simvastatin Hyponatremia - Likely a/w hypervolemia - Continue diuresis FEN: Low Na, HH, fluid restriction, PO Diuresis Code status: Conditional (Declines chest compression/defibrillation, ok with intubation) DVT ppx: Eliquis restarted 11/09 Isolation: None Dispo:Med/surg, plans to transition to [place] w/ family upon discharge, CM aware (2) Aortic stenosis: (3) YUMIKO (acute kidney injury): (4) Diabetes mellitus, type 2: (5) Atrial fibrillation: (6) CAD (coronary artery disease): Admission and Anticipated Discharge Date Admission Date: November 03, 2022 Supervising Physician Co-Signing Physician Notes Resident Physician Supervision Note: I independently interviewed and examined the patient and verified the gamez history and physical, reviewed labs and image studies and agree with resident findings and care plan. Subjective 11/12: Patient finishing breakfast at bedside this AM upon arrival. Patient was elated about how well she slept last night, she noted that her legs did not hurt and she was able to wear her CPAP throughout the whole night. She notes that her dyspnea is unchanged and believes her LE edema is much improved. She continues to note a good appetite. Cammy is not experiencing any chest pain, pleuritic pain, headaches, or lightheadedness. Patient continues to urinate via [place] without difficulty and notes increased ambulation since IV diuresis has been discontinued. Physical Exam Physical Exam: Gen: NAD, interactive, comfortable HEENT: NCAT, supple, JVD (improved) Resp:Non-labored, faint resolving crackles, otherwise CTAB CV:RRR, normal S1/S2, systolic ejection murmur at RUSB Abd: Soft, non-distended, no TTP, normoactive bowels, no masses, no HSM Extr: 2+ dp bilaterally, 1+ bilateral pitting edema (improved when legs elevated), no warmth/erythema, no deep calf pain * Improved ecchymosis of left posterior thigh w/o TTP Results & Data Results & Data Vital Signs (Past 12 Hours) Vital Signs Temp Pulse Resp BP Pulse Ox O2 Del Method O2 Flow Rate 11/11/22 20:00 Nasal Cannula 3 11/11/22 20:01 36.4 C L 62 18 155/53 H 95 Room Air Resident Activity Tracking Resident Involvement: Resident Care Provided Care Provided: Adult Hospital Medicine
[2022-11-12 08:15] LABS: Hematocrit (blood only) 27.8 % (37.0-47.0); Hemoglobin 8.7 g/dl (12.0-16.0)
[2022-11-12 08:49] LABS: BUN Creatinine Ratio 35.6 (10-20); Calcium 9.2 mg/dl (8.6-10.3); Creatinine Clr Calc Pharmacy 31.9 ml/min; Est GFR (African American) 37.9 ml/min; Est GFR (Non-African American) 32.7 ml/min; Potassium 3.5 mmol/L (3.5-5.1)
[2022-11-12] MEDS: metOLazone 5 MG TABLET PO SCH (09:06)
[2022-11-12] MEDS: carvediloL 3.125 MG TAB PO SCH ×2 (09:07→17:57)
[2022-11-12] MEDS: ISOSORBIDE MONO EXTENDED REL 30 MG TABCR PO SCH (09:07)
[2022-11-12] MEDS: CALCIUM 600MG + VIT D 400 IU TAB PO SCH (09:07)
[2022-11-12] MEDS: CHOLECALCIFEROL 1,000 UNITS 25 MCG TAB PO SCH ×2 (09:07→21:20)
[2022-11-12] MEDS: UMECLIDINIUM/VILANTEROL 62.5/25MCG 7 PUFFS/INHALER INH SCH (09:07)
[2022-11-12] MEDS: APIXABAN 2.5 MG TAB PO SCH ×2 (09:07→21:19)
[2022-11-12] MEDS: MULTIVITAMIN TAB PO SCH (09:07)
[2022-11-12] MEDS: FLUTICASONE FUROATE 100MCG 14 PUFFS/INHALER INH SCH (09:07)
[2022-11-12] MEDS: NYSTATIN SUSP 500,000 U/5 ML UDC PO SCH ×4 (09:08→21:21)
[2022-11-12] MEDS: POLYETHYLENE (MIRALAX) 17 GM PACK PO SCH (09:08)
[2022-11-12] MEDS: INSULIN ASPART PER UNIT CHARGE SC SCH ×4 (09:09→21:20)
[2022-11-12] MEDS: ACETAMINOPHEN 500 MG TAB PO SCH ×3 (09:11→21:19)
[2022-11-12] MEDS: BUMETANIDE 1 MG TAB PO SCH ×2 (10:16→21:20)
--- NOTE | 2022-11-12 13:54 | Cardiology Progress Note ---
Date of Service November 12, 2022 Assessment & Plan (1) (HFpEF) heart failure with preserved ejection fraction: Plan: Good diuresis overnight after switching from intravenous furosemide infusion to bumetanide with metolazone. Electrolytes reasonable and renal function slightly improved. Continue aggressive diuresis with close monitoring of electrolytes/renal function over the next few days. Appropriate to remain inpatient as she has had multiple hospitalizations and should be maximally diuresed to achieve optimal volume status prior to discharge, particular since she will be moving from the area in the near future. Continue metolazone 5 mg in the a.m. and bumetanide 5 mg twice daily. (2) Permanent atrial fibrillation: Plan: Continue atenolol for rate control and apixaban for anticoagulation. (3) Chronic kidney disease, stage 3: Plan: Monitor volume status/renal function/electrolytes daily. (4) Pacemaker: Plan: Single-chamber Medtronic pacemaker appears to be functioning appropriately. (5) Moderate aortic stenosis: Plan: Medical management. (6) Moderate mitral regurgitation: Plan: Medical management. (7) Leg edema: Plan: Responding to diuresis. Admission and Anticipated Discharge Date Admission Date: November 03, 2022 Subjective Slept well last night, lower extremity edema continues to improve. No chest d iscomfort, subjective palpitations, or lightheadedness. Input/output -1158. Weight down 2 pounds. Physical Exam Physical Exam: Appears comfortable. BP normotensive/borderline mildly hypertensive. Pulse 60 bpm and regular (paced). Skin: Few ecchymoses chest wall, no generalized lesions. HEENT: unremarkable. Neck: JVP one [address] way to the angle of the jaw 90 degrees, bilateral transmitted carotid murmur. Lungs: Moderately decreased breath sounds with dullness at the bases and few basilar crackles. Respiratory effort appears comfortable today. Cardiac: regular rhythm, diminished but audible aortic closure sound, increased pulmonic closure sound, 3/6 crescendo decrescendo systolic ejection murmur right upper sternal border, 2 or 6 apical stock murmur rating to the axilla, no diastolic murmur. Abdomen: benign. Extremities: 23+ pitting but nontense edema, stasis changes both legs, pulses intact. Neurologic: normal affect and conversation, nonfocal. Results & Data Vital Signs (Past 12 Hours) Vital Signs Temp Pulse Resp BP Pulse Ox O2 Del Method O2 Flow Rate 11/12/22 09:29 Nasal Cannula 3 11/12/22 07:34 97.9 F 68 14 141/59 H 94 Nasal Cannula 3 Laboratory Results Sodium 135, chloride 92, potassium 3.5, BUN 52, creatinine 1.46 (1.57 yesterday). PG Care Time/CCT Total # of Minutes Spent Total Time Spent with Patient: Total time spent is greater than 50% in coordination of care (as documented) at patient's floor/unit and/or counseling patient: Coding Level of Care Code 30380 SUB INP/OBS CARE 3/50MIN Diagnoses (HFpEF) heart failure with preserved ejection fraction I50.30 Permanent atrial fibrillation I48.21 Chronic kidney disease, stage 3 N18.3 Pacemaker Z95.0 Moderate aortic stenosis I35.0 Moderate mitral regurgitation I34.0 Leg edema R60.0
[2022-11-12] MEDS: LANTUS PER UNIT CHARGE SQ SCH (21:21)
[2022-11-12] MEDS: SIMVASTATIN 20 MG TAB PO SCH (21:22)
[2022-11-12] MEDS: rOPINIRole HCL 0.25 MG TABLET PO SCH (21:22)
[2022-11-12] MEDS: MELATONIN 3 MG TAB PO SCH (21:23)
[2022-11-13 06:54] LABS: Hematocrit (blood only) 26.8 % (37.0-47.0); Hemoglobin 8.6 g/dl (12.0-16.0)
--- NOTE | 2022-11-13 07:03 | Hospitalist Progress Note ---
Date of Service November 13, 2022 Assessment & Plan (1) Acute on chronic heart failure with preserved ejection fraction: Plan: Cammy is an 82 year old female with history of MR, CAD, aortic stenosis, HFpEF, DM2, recent CHI with multiple facial fractures, single kidney, chcf anticoagulation, tachy-joe syndrome, secondary hyperparathyroidism, renal artery stenosis, RLS, pulmonary emphysema w/ COPD, anemia, and PUD who presents for acute on chronic heart failure and was admitted for diuresis. HFpEF (Acute on Chronic) - Possibly d/t outpatient under diuresis vs likely high Na diet as outpatient * Patient recently discharged on Bumex 1 mg PO BID, but this was further tapered down as outpatient * Patient with recent facial fractures with limit comfortably with eating (commonly eating soft processed foods, which are high in salt) * During last admission patient required up to Lasix IV 240 mg daily to promote diuresis - Outpatient use of Amlodipine possible contributor to persistent LE edema, discontinued on admission - Atenolol changed to Carvedilol on admission (improved HF outcomes, titrate for BP/HR) - Fluid balance negative ~ 2350 mL in last 24 hours. * S/p 80 mg IV Lasix on admission, kept on Lasix 10 mg/hr, discontinued 11/11 * 11/12 Added Metolazone 5 mg and Bumex 5 mg BID per Cardiology recommendation * 11/13 Adjusted to Metolazone 2.5 mg AM and Bumex 5 mg AM for more appropriate rate of diuresis * Continue low Na diet and 1500 mL fluid restriction - Repleted Iron since <100 YUMIKO (acute kidney injury)/ Single Kidney - Known hx of single kidney/PACO - Renal US performed last admission, - Cr 2.9 on admission, possibly from cardio/renal syndrome. - Creat 1.43 today, downtrending Restless Leg Syndrome - Chronic diagnosis, no outpatient mgmt - Night time awakenings a/w leg pain and mobility - Rx for Ropinirole 0.25 mg qHS started 11/11 * Patient notes significant improvement in pain/sleep overnight * Continue Ropinirole 0.25 mg qHS Aortic stenosis; Moderate - EF 50-55% on Echo 09/11 - Evidenced on exam, otherwise asymptomatic Atrial fibrillation: - Currently ventricular paced - Eliquis (reduced dose due to age and Cr) for anticoagulation - Switched to carvedilol for rate control due to HF on admission Anorexia (Decreased Appetite) - Trial of Nystatin swish/swallow (start 11/09)- symptoms improved - B12 level normal LLE Ecchymosis/Hematoma - Evidenced on US 11/05 - US: 7.4 x 1.9 x 2.2 cm elongated complex fluid collection - posterior left thigh suggestive of a hematoma. - Anticoagulation held initially - Restarted anticoagulation 11/09, Hgb stable Diabetes mellitus, type 2: - Hemoglobin A1C 5.5 in August, no need to repeat as < 3 months - Sitagliptin on hold. - Started Lantus 5 nits HS and Log CAD (coronary artery disease): - Continue Eliquis, carvedilol, ISMN, simvastatin Hyponatremia - Likely a/w hypervolemia - Continue diuresis FEN: Low Na, HH, fluid restriction, PO Diuresis Code status: Conditional (Declines chest compression/defibrillation, ok with intubation) DVT ppx: Eliquis restarted 11/09 Isolation: None Dispo:Med/surg, plans to transition to [place] w/ family upon discharge, CM aware Access to transport chair would improve transfers inside and outside of the home, patient has a caregiver available to assist with transfers as she is unable to self-propel at this time. (2) Aortic stenosis: (3) YUMIKO (acute kidney injury): (4) Diabetes mellitus, type 2: (5) Atrial fibrillation: (6) CAD (coronary artery disease): Admission and Anticipated Discharge Date Admission Date: November 03, 2022 Supervising Physician Co-Signing Physician Notes Resident Physician Supervision Note: I independently interviewed and examined the patient and verified the gamez history and physical, reviewed labs and image studies and agree with resident findings and care plan. Subjective 11/13: Patient was resting comfortably in bedside chair upon arrival. Patient expresses ongoing improvement in sleep and overnight leg pain. She notes that she has 3-4/10 leg pain throuhgout the day, but that it is improved when her feet are elevated. She feels that her LE edema continues to improve and that overall her dyspnea is unchanged. She denies chest pain or pleuritic pain. Physical Exam Physical Exam: Gen: NAD, interactive, comfortable HEENT: NCAT, supple, JVD (improved) Resp:Non-labored, faint resolving crackles, otherwise CTAB CV:RRR, normal S1/S2, systolic ejection murmur at RUSB Abd: Soft, non-distended, no TTP, normoactive bowels, no masses, no HSM Extr: 2+ dp bilaterally, 1+ bilateral pitting edema (improved when legs elevated), no warmth/erythema, no deep calf pain * Improved ecchymosis of left posterior thigh w/o TTP Results & Data Results & Data Vital Signs (Past 12 Hours) Vital Signs Temp Pulse Resp BP Pulse Ox O2 Del Method O2 Flow Rate 11/12/22 21:20 Nasal Cannula, BiPAP 3 11/12/22 21:29 36.6 C 66 14 140/53 L 95 Nasal Cannula 3 Resident Activity Tracking Resident Involvement: Resident Care Provided Care Provided: Adult Hospital Medicine
[2022-11-13 07:11] LABS: BUN Creatinine Ratio 37.1 (10-20); Calcium 9.3 mg/dl (8.6-10.3); Creatinine Clr Calc Pharmacy 32.6 ml/min; Est GFR (African American) 38.9 ml/min; Est GFR (Non-African American) 33.5 ml/min; Potassium 3.3 mmol/L (3.5-5.1)
[2022-11-13] MEDS: INSULIN ASPART PER UNIT CHARGE SC SCH ×4 (08:50→21:07)
[2022-11-13] MEDS: UMECLIDINIUM/VILANTEROL 62.5/25MCG 7 PUFFS/INHALER INH SCH (08:52)
[2022-11-13] MEDS: FLUTICASONE FUROATE 100MCG 14 PUFFS/INHALER INH SCH (08:52)
[2022-11-13] MEDS: MULTIVITAMIN TAB PO SCH (08:53)
[2022-11-13] MEDS: CALCIUM 600MG + VIT D 400 IU TAB PO SCH (08:53)
[2022-11-13] MEDS: metOLazone 5 MG TABLET PO SCH (08:54)
[2022-11-13] MEDS: ISOSORBIDE MONO EXTENDED REL 30 MG TABCR PO SCH (08:54)
[2022-11-13] MEDS: CHOLECALCIFEROL 1,000 UNITS 25 MCG TAB PO SCH ×2 (08:55→20:13)
[2022-11-13] MEDS: BUMETANIDE 1 MG TAB PO SCH (08:55)
[2022-11-13] MEDS: APIXABAN 2.5 MG TAB PO SCH ×2 (08:56→20:12)
[2022-11-13] MEDS: carvediloL 3.125 MG TAB PO SCH ×2 (08:56→17:42)
[2022-11-13] MEDS: NYSTATIN SUSP 500,000 U/5 ML UDC PO SCH ×4 (08:57→20:13)
[2022-11-13] MEDS: POLYETHYLENE (MIRALAX) 17 GM PACK PO SCH (08:57)
[2022-11-13] MEDS: ACETAMINOPHEN 500 MG TAB PO SCH ×3 (10:49→20:12)
--- NOTE | 2022-11-13 13:43 | Cardiology Progress Note ---
Date of Service November 13, 2022 Assessment & Plan (1) (HFpEF) heart failure with preserved ejection fraction: Plan: She is doing well clinically. Good diuresis overnight on metolazone/bumetanide with stable renal function. Would switch to metolazone 2.5 mg a.m./bumetanide 5 mg every morning and discontinue evening diuretic dose to decrease the rate of diuresis from impressive daily output to a more manageable equilibrium diuretic dose which she will be able to maintain as an outpatient. (2) Permanent atrial fibrillation: Plan: Continue atenolol for rate control and apixaban for anticoagulation. (3) Chronic kidney disease, stage 3: Plan: Monitor volume status/renal function/electrolytes daily. (4) Pacemaker: Plan: Single-chamber Medtronic pacemaker appears to be functioning appropriately. (5) Moderate aortic stenosis: Plan: Medical management. (6) Moderate mitral regurgitation: Plan: Medical management. (7) Leg edema: Plan: Responding to diuresis. Admission and Anticipated Discharge Date Admission Date: November 03, 2022 Subjective She is doing well, significant diuresis overnight. No dyspnea, leg edema continues to diminish. No chest pain, subjective palpitations, or lightheadedness. Input/output -3650. Weight down several pounds. Physical Exam Physical Exam: Appears comfortable. BP normotensive/borderline mildly hypertensive. Pulse 80 bpm and regular. Skin: Few ecchymoses chest wall, no generalized lesions. HEENT: unremarkable. Neck: JVP one third of the way to the angle of the jaw 90 degrees, bilateral transmitted carotid murmur. Lungs: Moderately decreased breath sounds with dullness at the bases and few basilar crackles. Respiratory effort appears comfortable today. Cardiac: regular rhythm, diminished but audible aortic closure sound, increased pulmonic closure sound, 3/6 crescendo decrescendo systolic ejection murmur right upper sternal border, 2 or 6 apical stock murmur rating to the axilla, no diastolic murmur. Abdomen: benign. Extremities: 2+ pitting but nontense edema, stasis changes both legs, pulses intact. Neurologic: normal affect and conversation, nonfocal. Results & Data Vital Signs (Past 12 Hours) Vital Signs Temp Pulse Resp BP Pulse Ox O2 Del Method O2 Flow Rate 11/13/22 11:47 96 07/26/23 08:39 Nasal Cannula 3 11/13/22 07:24 98.1 F 80 17 155/63 H 93 Nasal Cannula 2 Laboratory Results Sodium 135, chloride 91, potassium 3.3, BUN 53 (52 yesterday), creatinine 1.43 (1.46 yesterday). PG Care Time/CCT Total # of Minutes Spent Total Time Spent with Patient: Total time spent is greater than 50% in coordination of care (as documented) at patient's floor/unit and/or counseling patient: Coding Level of Care Code 47221 SUB INP/OBS CARE 2/35MIN Diagnoses (HFpEF) heart failure with preserved ejection fraction I50.30 Permanent atrial fibrillation I48.21 Chronic kidney disease, stage 3 N18.3 Pacemaker Z95.0 Moderate aortic stenosis I35.0 Moderate mitral regurgitation I34.0 Leg edema R60.0
[2022-11-13] MEDS: SIMVASTATIN 20 MG TAB PO SCH (20:12)
[2022-11-13] MEDS: MELATONIN 3 MG TAB PO SCH (20:12)
[2022-11-13] MEDS: rOPINIRole HCL 0.25 MG TABLET PO SCH (20:12)
[2022-11-13] MEDS: LANTUS PER UNIT CHARGE SQ SCH (21:07)
[2022-11-14 06:16] LABS: Hematocrit (blood only) 26.1 % (37.0-47.0); Hemoglobin 8.4 g/dl (12.0-16.0)
[2022-11-14 06:38] LABS: BUN Creatinine Ratio 40.3 (10-20); Calcium 9.4 mg/dl (8.6-10.3); Creatinine Clr Calc Pharmacy 33.2 ml/min; Est GFR (African American) 40.2 ml/min; Est GFR (Non-African American) 34.7 ml/min
--- NOTE | 2022-11-14 07:45 | Hospitalist Progress Note ---
Date of Service November 14, 2022 Assessment & Plan (1) Acute on chronic heart failure with preserved ejection fraction: Plan: Cammy is an 82 year old female with history of MR, CAD, aortic stenosis, HFpEF, DM2, recent CHI with multiple facial fractures, single kidney, long term anticoagulation, tachy-joe syndrome, secondary hyperparathyroidism, renal artery stenosis, RLS, pulmonary emphysema w/ COPD, anemia, and PUD who presents for acute on chronic heart failure and was admitted for diuresis. HFpEF (Acute on Chronic) - Possibly d/t outpatient under diuresis vs likely high Na diet as outpatient * Patient discharged 10/23 after getting aggressively diuresed with lasix drip on Bumex 1 mg PO BID, but this was further tapered down as outpatient * Patient with recent facial fractures with limit comfortably with eating (commonly eating soft processed foods, which are high in salt) * During last admission patient required up to Lasix IV 240 mg daily to promote diuresis - Outpatient use of Amlodipine possible contributor to persistent LE edema, discontinued on admission - Atenolol changed to Carvedilol on admission (improved HF outcomes, titrate for BP/HR) - Fluid balance negative ~ 1675 mL in last 24 hours. * S/p 80 mg IV Lasix on admission, kept on Lasix 10 mg/hr, discontinued 11/11 * 11/12 Added Metolazone 5 mg and Bumex 5 mg BID per Cardiology recommendation * 11/13 Adjusted to Metolazone 2.5 mg AM and Bumex 5 mg AM, continue current regimen * Continue low Na diet and 1500 mL fluid restriction - Repleted Iron since early on for ferrtin <100 YUMIKO (acute kidney injury)/ Single Kidney - Known hx of single kidney/PACO - Renal US performed last admission, - Cr 2.9 on admission, possibly from cardio/renal syndrome. - Creat 1.39 today, downtrending Restless Leg Syndrome - Chronic diagnosis, no outpatient mgmt - Night time awakenings a/w leg pain and mobility - Rx for Ropinirole 0.25 mg qHS started 11/11 * Patient notes significant improvement in pain/sleep overnight * Continue Ropinirole 0.25 mg qHS Aortic stenosis; Moderate - EF 50-55% on Echo 09/11 - Evidenced on exam, otherwise asymptomatic Atrial fibrillation: - Currently ventricular paced - Eliquis (reduced dose due to age and Cr) for anticoagulation - Switched to carvedilol for rate control due to HF on admission Anorexia (Decreased Appetite) - Trial of Nystatin swish/swallow (start 11/09)- symptoms improved - B12 level normal LLE Ecchymosis/Hematoma - Evidenced on US 11/05 - US: 7.4 x 1.9 x 2.2 cm elongated complex fluid collection - posterior left thigh suggestive of a hematoma. - Anticoagulation held initially - Restarted anticoagulation 11/09, Hgb stable Diabetes mellitus, type 2: - Hemoglobin A1C 5.5 in August, no need to repeat as < 3 months - Sitagliptin on hold. - Started Lantus 5 nits HS and Log CAD (coronary artery disease): - Continue Eliquis, carvedilol, ISMN, simvastatin Hyponatremia - Likely a/w hypervolemia - Continue diuresis FEN: Low Na, HH, fluid restriction, PO Diuresis Code status: Conditional (Declines chest compression/defibrillation, ok with intubation) DVT ppx: Eliquis restarted 11/09 Isolation: None Dispo:Med/surg, plans to transition to [place] w/ family upon discharge, CM aware * Access to transport chair would improve transfers inside and outside of the home, patient has a caregiver available to assist with transfers as she is unable to self-propel at this time. * Anticipated discharge for transport to SNF 11/17 (2) Aortic stenosis: (3) YUMIKO (acute kidney injury): (4) Diabetes mellitus, type 2: (5) Atrial fibrillation: (6) CAD (coronary artery disease): Admission and Anticipated Discharge Date Admission Date: November 03, 2022 Supervising Physician Co-Signing Physician Notes Resident Physician Supervision Note: I independently interviewed and examined the patient and verified the gamez history and physical, reviewed labs and image studies and agree with resident findings and care plan. Subjective 11/14: Patient enjoying breakfast in bedside chair upon arrival. Patient feels that her dyspnea is at baseline, and overall improved from admission. She notes that her leg pain and LE edema continues to improve. She notes that her overnight leg discomfort is much improved and she continues to sleep well. Cammy denies any chest pain, pleuritic pain, headaches, lightheadedness or abdominal discomfort. Physical Exam Physical Exam: Gen: NAD, interactive, comfortable HEENT: NCAT, supple, JVD (improved) Resp:Non-labored, faint resolving crackles at bases, otherwise CTAB CV:RRR, normal S1/S2, systolic ejection murmur at RUSB Abd: Soft, non-distended, no TTP, normoactive bowels, no masses, no HSM Extr: 2+ dp bilaterally, 1+ bilateral pitting edema (improved when legs elevated), no warmth/erythema, no deep calf pain * Improved ecchymosis of left posterior thigh w/o TTP Results & Data Results & Data Vital Signs (Past 12 Hours) Vital Signs Temp Pulse Resp BP Pulse Ox O2 Del Method O2 Flow Rate 11/14/22 07:26 36.5 C 75 17 125/54 L 95 Nasal Cannula 2 11/13/22 22:49 36.4 C L 61 18 157/74 H 99 CPAP 11/13/22 20:00 Nasal Cannula, BiPAP 3 Resident Activity Tracking Resident Involvement: Resident Care Provided Care Provided: Adult Hospital Medicine
[2022-11-14] MEDS: INSULIN ASPART PER UNIT CHARGE SC SCH ×4 (08:45→20:35)
[2022-11-14] MEDS: metOLazone 2.5 MG TABLET PO SCH (08:46)
[2022-11-14] MEDS: CHOLECALCIFEROL 1,000 UNITS 25 MCG TAB PO SCH ×2 (08:46→20:18)
[2022-11-14] MEDS: NYSTATIN SUSP 500,000 U/5 ML UDC PO SCH ×4 (08:47→20:17)
[2022-11-14] MEDS: CALCIUM 600MG + VIT D 400 IU TAB PO SCH (08:47)
[2022-11-14] MEDS: APIXABAN 2.5 MG TAB PO SCH ×2 (08:47→20:18)
[2022-11-14] MEDS: MULTIVITAMIN TAB PO SCH (08:48)
[2022-11-14] MEDS: carvediloL 3.125 MG TAB PO SCH ×2 (08:48→17:58)
[2022-11-14] MEDS: ISOSORBIDE MONO EXTENDED REL 30 MG TABCR PO SCH (08:48)
[2022-11-14] MEDS: BUMETANIDE 1 MG TAB PO SCH (08:49)
[2022-11-14] MEDS: FLUTICASONE FUROATE 100MCG 14 PUFFS/INHALER INH SCH (08:50)
[2022-11-14] MEDS: UMECLIDINIUM/VILANTEROL 62.5/25MCG 7 PUFFS/INHALER INH SCH (08:50)
[2022-11-14] MEDS: ACETAMINOPHEN 500 MG TAB PO SCH ×3 (08:53→20:16)
[2022-11-14] MEDS: POLYETHYLENE (MIRALAX) 17 GM PACK PO SCH (08:53)
[2022-11-14] MEDS ORDERED: POTASSIUM CHLORIDE CRTAB 20 MEQ TABCR PO STA (09:59)
--- NOTE | 2022-11-14 10:09 | Cardiology Progress Note ---
Date of Service November 14, 2022 Assessment & Plan (1) (HFpEF) heart failure with preserved ejection fraction: Plan: She is doing well clinically. More modest diuresis yesterday with AM diuretic only. Potassium still low, renal function stable. Would continue current diuretic regimen to see if this is adequate as an outpatient, if there is backsliding with volume retention overnight may need to increase metolazone back to 5 mg daily (but this risks persistent hypokalemia). (2) Permanent atrial fibrillation: (3) Chronic kidney disease, stage 3: (4) Pacemaker: (5) Moderate aortic stenosis: (6) Moderate mitral regurgitation: (7) Leg edema: Admission and Anticipated Discharge Date Admission Date: November 03, 2022 Subjective Continues to do well, more modest diuresis overnight. No dyspnea, leg edema continues to diminish. No chest pain, subjective palpitations, or lightheadedness. Input/output -1675. Weight unchanged overnight. Physical Exam Physical Exam: Appears comfortable. BP normotensive/borderline mildly hypertensive. Pulse 80 bpm and regular. Skin: Few ecchymoses chest wall, no generalized lesions. HEENT: unremarkable. Neck: JVP two thirds of the way to the angle of the jaw 90 degrees, bilateral transmitted carotid murmur. Lungs: Dullness left base, few basilar crackles (left greater than right). Respiratory effort appears comfortable today. Cardiac: regular rhythm, diminished but audible aortic closure sound, increased pulmonic closure sound, 3/6 crescendo decrescendo systolic ejection murmur right upper sternal border, 2 or 6 apical stock murmur rating to the axilla, no diastolic murmur. Abdomen: benign. Extremities: 2+ pitting but nontense edema, stasis changes both legs, pulses intact. Neurologic: normal affect and conversation, nonfocal. Results & Data Vital Signs (Past 12 Hours) Vital Signs Temp Pulse Resp BP Pulse Ox O2 Del Method O2 Flow Rate 11/14/22 08:32 Nasal Cannula 2 11/14/22 07:26 97.7 F 75 17 125/54 L 95 Nasal Cannula 2 11/13/22 22:49 97.5 F L 61 18 157/74 H 99 CPAP Laboratory Results Sodium 133, potassium 3.0, BUN 56 (53 yesterday), creatinine 1.39 (1.43 yesterday). PG Care Time/CCT Total # of Minutes Spent Total Time Spent with Patient: Total time spent is greater than 50% in coordination of care (as documented) at patient's floor/unit and/or counseling patient: Coding Level of Care Code 63605 SUB INP/OBS CARE 2/35MIN Diagnoses (HFpEF) heart failure with preserved ejection fraction I50.30 Permanent atrial fibrillation I48.21 Chronic kidney disease, stage 3 N18.3 Pacemaker Z95.0 Moderate aortic stenosis I35.0 Moderate mitral regurgitation I34.0 Leg edema R60.0
[2022-11-14] MEDS: MELATONIN 3 MG TAB PO SCH (20:16)
[2022-11-14] MEDS: SIMVASTATIN 20 MG TAB PO SCH (20:18)
[2022-11-14] MEDS: rOPINIRole HCL 0.25 MG TABLET PO SCH (20:18)
[2022-11-14] MEDS: LANTUS PER UNIT CHARGE SQ SCH (20:34)
--- NOTE | 2022-11-15 07:24 | Hospitalist Progress Note ---
Date of Service November 15, 2022 Assessment & Plan (1) Acute on chronic heart failure with preserved ejection fraction: Plan: Cammy is an 82 year old female with history of MR, CAD, aortic stenosis, HFpEF, DM2, recent CHI with multiple facial fractures, single kidney, detention anticoagulation, tachy-joe syndrome, secondary hyperparathyroidism, renal artery stenosis, RLS, pulmonary emphysema w/ COPD, anemia, and PUD who presents for acute on chronic heart failure and was admitted for diuresis. HFpEF (Acute on Chronic) - Possibly d/t outpatient under diuresis vs likely high Na diet as outpatient * Patient discharged 10/23 after getting aggressively diuresed with lasix drip on Bumex 1 mg PO BID, but this was further tapered down as outpatient * Patient with recent facial fractures with limit comfortably with eating (commonly eating soft processed foods, which are high in salt) * During last admission patient required up to Lasix IV 240 mg daily to promote diuresis - Outpatient use of Amlodipine possible contributor to persistent LE edema, discontinued on admission - Atenolol changed to Carvedilol on admission (improved HF outcomes, titrate for BP/HR) - Fluid balance negative ~ 1675 mL in last 24 hours. * S/p 80 mg IV Lasix on admission, kept on Lasix 10 mg/hr, discontinued 11/11 * 11/12 Added Metolazone 5 mg and Bumex 5 mg BID per Cardiology recommendation * 11/13 Adjusted to Metolazone 2.5 mg AM and Bumex 5 mg AM, continue current regimen * Continue low Na diet and 1500 mL fluid restriction - Repleted Iron since early on for ferrtin <100 Hypokalemia - Likely a/w Metolazone diuresis - Patient will require ongoing supplementation with potassium * Patient w/ difficulty swallowing KCl pills, will provide powder KCl * Tessalon Perles provided in AM for acute coughing 2/2 to attempting to swallow pills YUMIKO (acute kidney injury)/ Single Kidney - Known hx of single kidney/PACO - Renal US performed last admission, - Cr 2.9 on admission, possibly from cardio/renal syndrome. - Creat 1.33 today, downtrending Restless Leg Syndrome - Chronic diagnosis, no outpatient mgmt - Night time awakenings a/w leg pain and mobility - Rx for Ropinirole 0.25 mg qHS started 11/11 * Patient notes significant improvement in pain/sleep overnight * Continue Ropinirole 0.25 mg qHS Aortic stenosis; Moderate - EF 50-55% on Echo 09/11 - Evidenced on exam, otherwise asymptomatic Atrial fibrillation: - Currently ventricular paced - Eliquis (reduced dose due to age and Cr) for anticoagulation - Switched to carvedilol for rate control due to HF on admission Anorexia (Decreased Appetite) - Trial of Nystatin swish/swallow (start 11/09)- symptoms improved - B12 level normal LLE Ecchymosis/Hematoma - Evidenced on US 11/05 - US: 7.4 x 1.9 x 2.2 cm elongated complex fluid collect ion - posterior left thigh suggestive of a hematoma. - Anticoagulation held initially - Restarted anticoagulation 11/09, Hgb stable Diabetes mellitus, type 2: - Hemoglobin A1C 5.5 in August, no need to repeat as < 3 months - Sitagliptin on hold. - Started Lantus 5 nits HS and Log CAD (coronary artery disease): - Continue Eliquis, carvedilol, ISMN, simvastatin Hyponatremia - Likely a/w hypervolemia - Continue diuresis FEN: Low Na, HH, fluid restriction, PO Diuresis Code status: Conditional (Declines chest compression/defibrillation, ok with intubation) DVT ppx: Eliquis restarted 11/09 Isolation: None Dispo:Med/surg, plans to transition to [place] w/ family upon discharge, CM aware * Access to transport chair would improve transfers inside and outside of the home, patient has a caregiver available to assist with transfers as she is unable to self-propel at this time. * Anticipated discharge for transport to SNF 11/17 * Medications sent to patient's pharmacy 11/15 (2) Aortic stenosis: (3) YUMIKO (acute kidney injury): (4) Diabetes mellitus, type 2: (5) Atrial fibrillation: (6) CAD (coronary artery disease): Admission and Anticipated Discharge Date Admission Date: November 03, 2022 Supervising Physician Co-Signing Physician Notes Resident Physician Supervision Note: I independently interviewed and examined the patient and verified the gamez history and physical, reviewed labs and image studies and agree with resident findings and care plan. Subjective 11/15: Patient resting comfortably in bedside chair. She notes that she had an episode of coughing following her AM pills, which improved with hydration and Tessalon Perles. She feels as though her dyspnea is slightly increased, but only since her coughing episode. She notes that she slept well last night without RLS symptoms and that her LE edema continuse to improve. She denies any chest pain, pleuritic pain, headaches, lightheadedness, or abdominal discomfort. She continues to note good appetite. Physical Exam Physical Exam: Gen: NAD, interactive, comfortable, occasional cough HEENT: NCAT, supple, JVD (improved) Resp:Non-labored, resolved crackles at bases, mildly diminished at bases, otherwise CTAB CV:RRR, normal S1/S2, systolic ejection murmur at RUSB Abd: Soft, non-distended, no TTP, normoactive bowels, no masses, no HSM Extr: 2+ dp bilaterally, 1+ bilateral pitting edema (improved when legs elevated), no warmth/erythema, no deep calf pain * Improved ecchymosis of left posterior thigh w/o TTP Results & Data Results & Data Vital Signs (Past 12 Hours) Vital Signs Temp Pulse Resp BP Pulse Ox O2 Del Method O2 Flow Rate 11/14/22 20:10 Nasal Cannula 2 11/14/22 20:57 36.6 C 66 20 147/57 H 95 Nasal Cannula 1.5 Resident Activity Tracking Resident Involvement: Resident Care Provided Care Provided: Adult Hospital Medicine
[2022-11-15 07:57] LABS: BUN Creatinine Ratio 42.1 (10-20); Calcium 9.8 mg/dl (8.6-10.3); Creatinine Clr Calc Pharmacy 34.5 ml/min; Est GFR (African American) 42.4 ml/min; Est GFR (Non-African American) 36.6 ml/min; Potassium 3.3 mmol/L (3.5-5.1)
[2022-11-15] MEDS ORDERED: POTASSIUM CHLORIDE CRTAB 20 MEQ TABCR PO STA (08:06)
[2022-11-15] MEDS: INSULIN ASPART PER UNIT CHARGE SC SCH ×4 (08:52→21:30)
[2022-11-15] MEDS: FLUTICASONE FUROATE 100MCG 14 PUFFS/INHALER INH SCH (08:53)
[2022-11-15] MEDS: UMECLIDINIUM/VILANTEROL 62.5/25MCG 7 PUFFS/INHALER INH SCH (08:53)
[2022-11-15] MEDS: BUMETANIDE 1 MG TAB PO SCH (08:54)
[2022-11-15] MEDS: ISOSORBIDE MONO EXTENDED REL 30 MG TABCR PO SCH (08:55)
[2022-11-15] MEDS: CHOLECALCIFEROL 1,000 UNITS 25 MCG TAB PO SCH ×2 (08:55→21:31)
[2022-11-15] MEDS: MULTIVITAMIN TAB PO SCH (08:56)
[2022-11-15] MEDS: metOLazone 2.5 MG TABLET PO SCH (08:56)
[2022-11-15] MEDS: carvediloL 3.125 MG TAB PO SCH ×2 (08:57→17:42)
[2022-11-15] MEDS: NYSTATIN SUSP 500,000 U/5 ML UDC PO SCH ×4 (08:57→21:30)
[2022-11-15] MEDS: CALCIUM 600MG + VIT D 400 IU TAB PO SCH (08:57)
[2022-11-15] MEDS: APIXABAN 2.5 MG TAB PO SCH ×2 (08:57→21:31)
[2022-11-15] MEDS: POLYETHYLENE (MIRALAX) 17 GM PACK PO SCH (08:57)
[2022-11-15] MEDS: ACETAMINOPHEN 500 MG TAB PO SCH ×3 (09:00→21:29)
[2022-11-15] MEDS ORDERED: BENZONATATE 100 MG CAPSULE PO PRN (09:30)
[2022-11-15 09:36] LABS: Hematocrit (blood only) 27.9 % (37.0-47.0); Hemoglobin 9.1 g/dl (12.0-16.0)
--- NOTE | 2022-11-15 11:20 | Cardiology Progress Note ---
Date of Service November 15, 2022 Assessment & Plan (1) (HFpEF) heart failure with preserved ejection fraction: Plan: She is doing well clinically. Diuresis does not seem excessive as a maintenance regimen, would therefore recommend continuing current diuretic regimen of bumetanide 5 mg daily and metolazone 2.5 mg daily upon discharge. Potassium still low, with metolazone will likely need ongoing potassium supplementation, would change to more palatable potassium supplement (such as dissolvable potassium chloride). (2) Chronic kidney disease, stage 3: Plan: Renal function steadily improving with diuresis. (3) Pacemaker: Plan: Functioning appropriately. (4) Permanent atrial fibrillation: Plan: No tachycardia this admission, only negative chronotrope is low-dose carvedilol (3.125 mg twice daily). (5) Moderate aortic stenosis: Plan: Medically managed. (6) Moderate mitral regurgitation: Plan: Medically managed. (7) Leg edema: Plan: Likely combination of HFpEF, valvular disease, and venous insufficiency. Improving with diuresis. Plan Will sign off from a cardiology standpoint. If patient's clinical status changes or new cardiology questions arise, Dr. Dsouza will be covering cardio logy for the weekend, please contact him. Admission and Anticipated Discharge Date Admission Date: November 03, 2022 Subjective No major complaints. Denies dyspnea, chest pain, palpitations, or lightheadedness. She has having trouble swallowing the large potassium pills, even when broken in half. Weight down roughly 10 pounds from admission. Input/output -1776. Physical Exam Physical Exam: Appears comfortable. BP normotensive. Pulse 76 bpm and regular. Skin: Few ecchymoses chest wall, no generalized lesions. HEENT: unremarkable. Neck: JVP two thirds of the way to the angle of the jaw 90 degrees, bilateral transmitted carotid murmur. Lungs: Dullness left base, few basilar crackles (left greater than right). Respiratory effort appears comfortable today. Cardiac: regular rhythm, diminished but audible aortic closure sound, increased pulmonic closure sound, 3/6 crescendo decrescendo systolic ejection murmur right upper sternal border, 2 or 6 apical stock murmur rating to the axilla, no diastolic murmur. Abdomen: benign. Extremities: 2+ pitting but nontense edema, stasis changes both legs, pulses intact. Neurologic: normal affect and conversation, nonfocal. Results & Data Vital Signs (Past 12 Hours) Vital Signs Temp Pulse Resp BP Pulse Ox O2 Del Method O2 Flow Rate 11/15/22 07:59 Nasal Cannula 1.5 11/15/22 07:07 97.3 F L 76 16 138/75 96 Nasal Cannula 2 Laboratory Results Sodium 135, chloride 88, potassium 3.3, BUN 56, creatinine 1.33 (1.39 yesterday). PG Care Time/CCT Total # of Minutes Spent Total Time Spent with Patient: Total time spent is greater than 50% in coordination of care (as documented) at patient's floor/unit and/or counseling patient: Coding Level of Care Code 36460 SUB INP/OBS CARE 2/35MIN Diagnoses (HFpEF) heart failure with preserved ejection fraction I50.30 Chronic kidney disease, stage 3 N18.3 Pacemaker Z95.0 Permanent atrial fibrillation I48.21 Moderate aortic stenosis I35.0 Moderate mitral regurgitation I34.0 Leg edema R60.0
[2022-11-15] MEDS: POTASSIUM CHLORIDE PWD 20 MEQ PACK PO SCH (11:32)
[2022-11-15] MEDS: MELATONIN 3 MG TAB PO SCH (21:29)
[2022-11-15] MEDS: LANTUS PER UNIT CHARGE SQ SCH (21:29)
[2022-11-15] MEDS: rOPINIRole HCL 0.25 MG TABLET PO SCH (21:31)
[2022-11-15] MEDS: SIMVASTATIN 20 MG TAB PO SCH (21:32)
[2022-11-16 06:33] LABS: BUN Creatinine Ratio 43.9 (10-20); Calcium 9.7 mg/dl (8.6-10.3); Creatinine Clr Calc Pharmacy 34.7 ml/min; Est GFR (African American) 42.8 ml/min; Potassium 3.6 mmol/L (3.5-5.1)
[2022-11-16 06:43] LABS: Hematocrit (blood only) 26.6 % (37.0-47.0); Hemoglobin 8.5 g/dl (12.0-16.0); Mean Corpuscular Hemoglobin 25.8 pg (25.0-34.0); Mean Corpuscular Volume 80.6 fL (80.0-100.0); Mean Platelet Volume 11.3 fL (9.4-12.4); Platelet Count 77 K/uL (130-400); Platelet Estimate Decreased (Normal); RDW Coefficient of Variation 19.9 % (11.5-14.5); RDW Standard Deviation 56.7 fL (36.4-46.3); White Blood Count 5.86 K/ul (4.8-10.8)
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
[2022-11-16] MEDS: APIXABAN 2.5 MG TAB PO SCH ×2 (08:49→20:06)
[2022-11-16] MEDS: CHOLECALCIFEROL 1,000 UNITS 25 MCG TAB PO SCH ×2 (08:49→20:06)
[2022-11-16] MEDS: MULTIVITAMIN TAB PO SCH (08:50)
[2022-11-16] MEDS: busPIRone 5 MG TAB PO PRN (08:50)
[2022-11-16] MEDS: ISOSORBIDE MONO EXTENDED REL 30 MG TABCR PO SCH (08:50)
[2022-11-16] MEDS: BUMETANIDE 1 MG TAB PO SCH (08:50)
[2022-11-16] MEDS: CALCIUM 600MG + VIT D 400 IU TAB PO SCH (08:50)
[2022-11-16] MEDS: metOLazone 2.5 MG TABLET PO SCH (08:51)
[2022-11-16] MEDS: FLUTICASONE FUROATE 100MCG 14 PUFFS/INHALER INH SCH (08:51)
[2022-11-16] MEDS: UMECLIDINIUM/VILANTEROL 62.5/25MCG 7 PUFFS/INHALER INH SCH (08:51)
[2022-11-16] MEDS: carvediloL 3.125 MG TAB PO SCH ×2 (08:51→17:31)
[2022-11-16] MEDS: NYSTATIN SUSP 500,000 U/5 ML UDC PO SCH ×4 (08:51→20:05)
[2022-11-16] MEDS: POTASSIUM CHLORIDE PWD 20 MEQ PACK PO SCH (08:52)
[2022-11-16] MEDS: INSULIN ASPART PER UNIT CHARGE SC SCH ×4 (08:54→21:16)
[2022-11-16] MEDS: POLYETHYLENE (MIRALAX) 17 GM PACK PO SCH (08:54)
[2022-11-16] MEDS: ACETAMINOPHEN 500 MG TAB PO SCH ×3 (08:58→20:06)
[2022-11-16] MEDS: SIMVASTATIN 20 MG TAB PO SCH (20:05)
[2022-11-16] MEDS: LANTUS PER UNIT CHARGE SQ SCH (21:16)
[2022-11-16] MEDS: rOPINIRole HCL 0.25 MG TABLET PO SCH (21:18)
[2022-11-16] MEDS: MELATONIN 3 MG TAB PO SCH (21:18)
--- NOTE | 2022-11-17 06:22 | Billing Data ---
Date of Service November 16, 2022 Coding Level of Care Code 89687 SUB INP/OBS CARE
--- NOTE | 2022-11-17 06:58 | Discharge Summary ---
Date of Service November 17, 2022 Admission HPI Per Admitting Provider Cammy Zhu is an 82 year old female with chronic heart failure with preserved ejection fraction who presents to the ER from [facility] due to weight gain, leg swelling and shortness of breath. She has mostly been in hospital since August 05 with repeated episodes of heart failure requiring high doses of diretics. She was most recently discharged on October 23 to [facility]. On day of discharge she was on 240mg/day of intravenous Lasix with intermittent doses or Diuril, metolazone and acetazolamide. She was discharged on Bumex 1mg PO BID. This was reduced to 1mg PO daily at [facility] after her renal function got worse. Her son also reports she may have not been on a low salt diet for the first week. After 6lb of gained fluid and treatment for pneumonia with Levaquin based on a worsening shortness of breath and a CXR her Bumex was increased back to 2mg PO daily. Unfortunately she continued to gain weight (up 10 lb from discharge) therefore she was transported back to the ER for ongoing management. Admission Exam Per Admitting Provider Constitutional: WD/WN, vitals as above Respiratory: normal respiratory effort; no respiratory distress Auscultation: + crackles (bibasal); breath sounds present, no diminished lung sounds, no rales, no rhonchi and no wheezes Cardiovascular: Rate/Rhythm: regular rate and regular rhythm Extremities: normal capillary refill and + pedal edema (1+ b/l pitting edema); no calf tenderness Gastrointestinal (Abdomen): normal bowel sounds, soft, nontender, no hepatosplenomegaly Musculoskeletal: no cyanosis or clubbing, extremities motor strength 5/5 Skin: no rashes, warm and dry Neurologic: moves all extremities and awake; not confused Psychiatric: A+Ox3, euthymic affect Genitourinary: no CVA tenderness Principal Diagnosis acute on chronic HfpEF Discharge Exam Gen: NAD, interactive, comfortable HEENT: NCAT, supple, JVD not observed Resp:Non-labored, no increased work of breathing, breathing comfortably on 2L NC CV:RRR, normal S1/S2, systolic ejection murmur at RUSB Abd: Soft, non-distended Extr: Continued pitting edema, no calf tenderness, warm and well perfused Neuro: alert and oriented Psych: appropriate mood and affect Discharge Data Allergies Allergy/AdvReac Type Severity Reaction Status Date / Time chlorthalidone Allergy Severe Swelling Verified 11/03/22 10:43 of Lip/Tongue/Throat Penicillins Allergy Severe Swelling Verified 11/03/22 10:43 of Lip/Tongue/Throat MANDEEP Inhibitors Allergy Unknown Unknown Verified 11/03/22 10:43 trazodone Allergy Unknown Unknown Verified 11/03/22 10:43 Consultations 11/03/22 10:30 ED Decision to Admit Stat 11/11/22 11:42 Consult Cardiology Routine Ordered Studies Chest X-Ray 11/03/22 09:10 XR chest 1V portable CLINICAL HISTORY: Chest pain, nonspecific TECHNIQUE: Single frontal radiograph of the chest was obtained. Comparison: Comparison is made to chest radiograph 10/16/2022 FINDINGS: Implanted pacemaker is seen. Cardiomegaly is noted. The aortic arch is calci fied. Prominence and cephalization of the vasculature is seen. Right lower lung airspace opacity is again seen. Small bilateral pleural effusions are seen. IMPRESSION: 1. Cardiomegaly and mild pulmonary edema. 2. Small bilateral pleural effusions. Femur X-Ray 11/05/22 09:51 LEFT FEMUR 3 VIEWS CLINICAL HISTORY: Left leg pain. FINDINGS: AP, frog-leg, and lateral views of the femur are correlated with radiograph of the left hip dated 08/05/2022. The skeletal structures are osteopenic. There is no radiographic evidence of left femoral fracture. The visualized left hemipelvis appears intact. A left hip arthroplasty is in near anatomic alignment. No periprosthetic lucency is seen. Degenerative change is noted in the knee joint. The overlying soft tissues are normal as imaged. There is advanced atherosclerotic calcification of the popliteal artery. IMPRESSION: 1. No acute bony abnormality is identified 2. A left hip arthroplasty is in near anatomic alignment. Hip/Pelvis X-Ray 11/05/22 09:51 XR hip LT 2V w pelvis CLINICAL HISTORY: Bony tenderness to palpation of L hip COMPARISON STUDY: Pelvis and left hip 08/05/2022. FINDINGS: There is a left total hip arthroplasty. The hardware appears intact. No abnormal periprosthetic lucency. No acute fracture or dislocation within the left hip. The visualized pelvic bones are intact. Mild vascular calcifications are noted. There are metallic anchors within the left greater trochanter. This remains unchanged. No fracture or dislocation within the right hip. There is also a right total hip arthroplasty. IMPRESSION: 1. No acute fracture or dislocation within the pelvis or hips. 2. Bilateral total hip arthroplasties. The hardware appears intact. Vascular Ultrasound 11/05/22 10:36 LEFT THIGH ULTRASOUND CLINICAL HISTORY: Posterior left thigh hematoma, on blood thinner COMPARISON STUDY: Left hip and femur radiographs November 05, 2022. TECHNIQUE: Sonography of the posterior left thigh at site of erythema and swelling was performed. FINDINGS: Subcutaneous edema of the left thigh is noted. There is also a complex elongated posterior left thigh collection which measures 7.4 x 1.9 x 2.2 cm. This may be intramuscular in location or within the deep subcutaneous tissues. This contains no color flow. No additional fluid collections are present. IMPRESSION: 7.4 x 1.9 x 2.2 cm elongated complex fluid collection within the posterior left thigh suggestive of a hematoma. This may be intramuscular or within the deep subcutaneous tissues. A follow-up ultrasound in 3 months to ensure resolution is recommended. 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 Now with improved fluid status awaiting insurance approval for SNF in [facility]. Hospital Course By Problem: HFpEF (Acute on Chronic) Patient returns with acute fluid overload in the setting of acute on chronic HFpEF. Likely multifactorial with possible under diuresis vs high sodium diet. Recent facial fractures and need for dentures has limited her dietary choices to mostly soft processed (salty) foods such as soup. Patient was to move to [facility] to be with her son, but she has been readmitted intermittently to [facility] for diuresis. Last admission patient required up to 240 mg IV Lasix to promote adequate diuresis. Patient was also previously on amlodipine which may have contributed to BLE edema. This was discontinued on admission. Patient was transitioned to carvedilol as it has improved HF outcomes. Cardiology was consulted - rec metolazone and bumex. Patient stable on 2.5 mg Metolazone QAM and 5 mg Bumex QAM, will continue outpatient. Recommend salt restriction and fluid restriction. Close monitoring of ins and outs in addition to daily weights. Patient with refractory volume fluid overload. Would recommend establishing care with cardiology in [place]. In addition consider ischemic work up with nuclear stress test vs cath as there may be a component of CAD. Patient's fluid status resembles that of a cirrhotic patient. May be worth r/o cirrhosis with RUQ US as a contributory factor in her hypervolemia. Weight on discharge: 86.863 kg, likely close to dry weight Metabolic Derangements #Hypokalemia - adequately repleted #Hypercapnia - stable Likely associated diuresis. Patient will require ongoing supplementation with potassium. Patient w/ difficulty swallowing KCl pills, will provide powder KCl. Electrolytes monitored and repleted as indicated. Would continue to monitor electrolytes while at SNF with BMP Mag 11/20. LLE Ecchymosis/Hematoma Evidenced on US 11/05 - US: 7.4 x 1.9 x 2.2 cm elongated complex fluid collection - posterior left thigh suggestive of a hematoma. Anticoagulation held initially and then restarted. Hgb stable. Would recheck US in 2-3 months to confirm improvement of hematoma. RICH Stable on CPAP, continue at night. Chronic Hypoxia Likely multifactorial with history of COPD and HFpEF. Would continue 2L NC around the clock Thrombocytopenia Most likely in the setting of recent hematoma. Would monitor with CBC 11/20 YUMIKO (acute kidney injury)/ Single Kidney - improved Known hx of single kidney/PACO. Renal US performed last admission. Cr 2.9 on admission, possibly from cardio/renal syndrome. Has since improved. Restless Leg Syndrome Chronic diagnosis, no outpatient mgmt. Started ropinirole 0.25 mg QHS. Significant improvement in symptoms and nighttime awakenings. Aortic stenosis; Moderate EF 50-55% on Echo 09/11. Evidenced on exam, otherwise asymptomatic Atrial fibrillation: Currently ventricular paced. Eliquis (reduced dose due to age and Cr) for anticoagulation. Switched to carvedilol for rate control due to HF on admission Anorexia (Decreased Appetite) Trial of Nystatin swish/swallow (start 11/09)- symptoms improved. B12 level normal Diabetes mellitus, type 2: Hemoglobin A1C 5.5 in August. Well controlled. SSI while inpatient. Resume home meds upon discharge. Recommend carb consistent diet and HbA1c recheck in January. CAD (coronary artery disease): Continue Eliquis, carvedilol, ISMN, simvastatin See attending attestation for further documentation (2) Aortic stenosis: (3) YUMIKO (acute kidney injury): (4) Diabetes mellitus, type 2: (5) Atrial fibrillation: (6) CAD (coronary artery disease): Total Time Total Time Spent Total Time Spent (In Minutes): See attending attestation Discharge Plan Discharge Items Patient Disposition: Transfer Longterm Fac Reason For Visit: ACUTE ON CHRONIC HFPEF Discharge Diagnosis: acute on chronic HFpEF Activity: Per Instructions section Non-emergency contact: Primary Care Provider Call non-emergency contact if: your symptoms worsen and your pain is not controlled Follow-up/Referrals: Dagoberto Headley MD [Primary Care Provider] - Sanjana Myao PA-C [Physician Scrap Breaker] - 11/21/22 9:00 am Diet: Carb Consistent or DM2, Heart Healthy and Low Sodium (2gm) Fluids: 1500ml (6 cups) Addtl Attending Provider Instructions: Cammy is an 82 year old female with history of MR, CAD, aortic stenosis, HFpEF, DM2, recent CHI with multiple facial fractures, single kidney, 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 Now with improved fluid status awaiting insurance approval for SNF in [facility]. Hospital Course By Problem: HFpEF (Acute on Chronic) Patient returns with acute fluid overload in the setting of acute on chronic HFpEF. Likely multifactorial with possible under diuresis vs high sodium diet. Recent facial fractures and need for dentures has limited her dietary choices to mostly soft processed (salty) foods such as soup. Patient was to move to [facility] to be with her son, but she has been readmitted intermittently to [facility] for di uresis. Last admission patient required up to 240 mg IV Lasix to promote adequate diuresis. Patient was also previously on amlodipine which may have contributed to BLE edema. This was discontinued on admission. Patient was transitioned to carvedilol as it has improved HF outcomes. Cardiology was con sulted - rec metolazone and bumex. Patient stable on 2.5 mg Metolazone QAM and 5 mg Bumex QAM, will continue outpatient. Recommend salt restriction and fluid restriction. Close monitoring of ins and outs in addition to daily weights. Patient with refractory volume fluid overload. Would recommend establishing care with cardiology in [place]. In addition consider ischemic work up with nuclear stress test vs cath as there may be a component of CAD. Patient's fluid status vaguely resembles a cirrhotic patient. May be worth r/o cirrhosis with RUQ US as a contributory factor in her hypervolemia. Weight on discharge: 86.863 kg, likely close to dry weight Metabolic Derangements #Hypokalemia - adequately repleted #Hypercapnia - stable Likely associated diuresis. Patient will require ongoing supplementation with potassium. Patient w/ difficulty swallowing KCl pills, will provide powder KCl. Electrolytes monitored and repleted as indicated. Would continue to monitor electrolytes while at SNF with next BMP Mag 11/20 RICH Stable on CPAP, continue at night. Chronic Hypoxia Likely multifactorial with history of COPD and HFpEF. Would continue 2L NC around the clock Thrombocytopenia Most likely in the setting of recent hematoma. Would monitor with CBC 11/20 YUMIKO (acute kidney injury)/ Single Kidney - improved Known hx of single kidney/PACO. Renal US performed last admission. Cr 2.9 on admission, possibly from cardio/renal syndrome. Has since improved. Restless Leg Syndrome Chronic diagnosis, no outpatient mgmt. Started ropinirole 0.25 mg QHS. Significant improvement in symptoms and nighttime awakenings. Aortic stenosis; Moderate EF 50-55% on Echo 09/11. Evidenced on exam, otherwise asymptomatic Atrial fibrillation: Currently ventricular paced. Eliquis (reduced dose due to age and Cr) for anticoagulation. Switched to carvedilol for rate control due to HF on admission Anorexia (Decreased Appetite) Trial of Nystatin swish/swallow (start 11/09)- symptoms improved. B12 level normal LLE Ecchymosis/Hematoma Evidenced on US 11/05 - US: 7.4 x 1.9 x 2.2 cm elongated complex fluid collection - posterior left thigh suggestive of a hematoma. Anticoagulation held initially and then restarted. Hgb stable. Would recheck US in 2-3 months to confirm improvement of hematoma. Diabetes mellitus, type 2: Hemoglobin A1C 5.5 in August, no need to repeat as < 3 months. Resume home meds upon discharge. Recommend carb consistent diet. 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 Skilled Items Patient informed of condition?: Yes DNR: No (conditional code) Discharge Level of Care: Skilled Communicable Disease: No Discharge Prognosis: Stable Lines: None Urinary Catheter: No Medications and DC Order Prescriptions: New metolazone 2.5 mg Tablet 2.5 mg PO QAM 30 Days Qty: 30 0RF carvedilol 3.125 mg Tablet 3.125 mg PO BIDM 30 Days Qty: 60 0RF potassium chloride 20 mEq Packet 20 meq PO QAM 30 Days Qty: 30 0RF ropinirole 0.25 mg Tablet 0.25 mg PO HS 30 Days Qty: 30 0RF bumetanide 1 mg Tablet 5 mg PO QAM 14 Days Qty: 70 0RF Continued isosorbide mononitrate 30 mg tablet extended release 24 hr 90 mg PO QAM Qty: 270 3RF Eliquis 5 mg tablet 5 mg PO BID 30 Days Qty: 60 1RF cholecalciferol (vitamin D3) 50 mcg (2,000 unit) capsule 50 mcg PO BID Qty: 30 0RF nitroglycerin 0.4 mg tablet, sublingual 0.4 mg SL UD PRN (Reason: chest pain) Qty: 20 3RF Rx Instructions: take 5 minutes apart, up to 3 doses in 24H. Januvia 25 mg tablet 25 mg PO QAM Qty: 90 3RF simvastatin 20 mg tablet 20 mg PO HS Qty: 90 3RF albuterol sulfate [Ventolin HFA] 90 mcg/actuation HFA aerosol inhaler 2 puff INH Q4H PRN (Reason: shortness of breath or wheezing) Qty: 18 3RF Trelegy Ellipta 100-62.5-25 mcg blister with device 1 inh inhalation DAILY Qty: 3 2RF buspirone 5 mg tablet 5 mg PO BID PRN (Reason: anxiety) Qty: 60 5RF cranberry conc-ascorbic acid 4,200-20 mg capsule 1 cap PO QAM calcium citrate-vitamin D3 250 mg calcium- 200 unit tablet 1 tab PO QAM multivitamin tablet 1 tab PO QAM (DME) nebulizers Misc See Rx Instructions .Route Qty: 1 0RF Rx Instructions: As directed with hypertonic saline nebulized solution tramadol 50 mg Tablet 50 mg PO Q6H PRN (Reason: Severe Pain (Scale Score 7-10)) acetaminophen 500 mg Tablet 1,000 mg PO TID bisacodyl [Dulcolax (bisacodyl)] 10 mg Suppository 10 mg KY DAILY PRN (Reason: On day 4 of no BM in the morning - Call MD) docusate sodium [Colace] 100 mg Capsule 100 mg PO DAILY PRN (Reason: On day 2 of no BM in the morning) nystatin 100,000 unit/gram Powder 1 applic TOPICAL .EVERY SHIFT Rx Instructions: Start Date 10/31/22 - End Date 11/13/22 polyethylene glycol 3350 [Miralax] 17 gram/dose Powder 17 g PO DAILY PRN (Reason: Give on day 3 of no BM) levofloxacin 750 mg Tablet 750 mg PO .EVERY 48 HOURS Rx Instructions: Start Date 10/27/22 - End Date 11/06/22 melatonin 1 mg Tablet 2 mg PO HS Discontinued amlodipine 10 mg tablet 10 mg PO DAILY Qty: 90 3RF atenolol 50 mg tablet 50 mg PO QAM Qty: 90 3RF bumetanide 1 mg tablet 1 mg PO BID 14 Days Qty: 28 0RF Discharge Orders: Discharge Order (Routine); Ordered 11/17/22 Ordered By: Johana Beltran/Other Patient Handouts: 5 Steps for Eating Healthier Admission Data Admit Date/Time: 11/03/22 11:10 Attending Provider: Max Pro Admit Provider: Max Morrison Primary Care Provider: Dagoberto Headley Other Providers: Max Morrison ; Mckay Avery ; Desmond Ovreton Other Interventions: Discharge Summary Assessment (RN) Last Done: 11/17/22 08:18 Supervising Physician Co-Signing Physician Notes Attending Attestation & Discharge Note: Pt seen/examined, chart reviewed, discharge care plan d/w PGY2 Dr Johana Santiago. I agree w/ the gamez components of her documentation. 82yo female with chronic diastolic CHF and recurrent hospital admissions since July 2022 for volume overload presented with dyspnea, worsening leg swelling, and weight gain. She was aggressively diuresed during the hospitalization and weight at discharge is 86.8kg. Of note - this is her lowest weight since July 2022. Despite such she continues with LE edema and either ascites or body wall edema. During this visit she was seen by cardiology who provided gamez recommendations for her care. Bumex 5mg daily + metolazone 2.5mg daily was advised for her diuretic regimen. Patient has known CAD. Consider ischemic evaluation once settled in [place] (nuclear stress vs cardiac cath). Also consider work-up for liver disease given the severity of her abdominal s welling + LE edema along with obesity. She will continue on 2 L NC O2 [id number] as well as CPAP at HS. Discharge exam: gen - NAD, pleasant, sitting in chair; family at bedside neck - no JVD sitting upright heart - RRR, s1 s2, 2/6 systolic murmur RUSB lungs - decreased BS bases; no rales or wheeze abd - soft NT mildly distended (ascites vs abd wall edema); BS+ ext - 2-3+ edema b/l legs extending to the thighs, pulses feet 2+ b/l psych - a/o x 3 A/P: 1. acute/chronic diastolic CHF - * cont bumex 5mg qam * cont metolazone 2.5mg qam * will need BMP with magnesium level within 5-7 days of arrival in [place] to ensure stability * cont coreg BID Etiology of recurrent decompensation? ischemia? noncompliance with meds and/or diet? does patient have cirrhosis or other non-cardiac factors contributing to edema?? TSH wnl last albumin 3.5 Creatinine 1.2 u/a negative for protein 2. RICH - cont CPAP 3. chronic hypoxic resp failure - on NC O2 2 liters continuously 4. thrombocytopenia - suspect that the drop in platelets was due to consumption from her recent left thigh hematoma * lowest platelet count was 77 * discharge platelet count was 86 * will need repeat cbc within about a week after arrival in [place] for stability dispo - SNF in [place] (patient moving there due to family being present in [place]) total care time on day of discharge = 50 minutes Max Pro MD Resident Activity Tracking Resident Involvement: Resident Care Provided Care Provided: Adult Hospital Medicine
[2022-11-17 07:23] LABS: Hematocrit (blood only) 31.2 % (37.0-47.0); Hemoglobin 9.8 g/dl (12.0-16.0); Mean Corpuscular Hemoglobin 25.9 pg (25.0-34.0); Mean Corpuscular Hgb Conc 31.4 g/dL (32.0-36.0); Mean Corpuscular Volume 82.3 fL (80.0-100.0); Mean Platelet Volume 11.3 fL (9.4-12.4); Platelet Count 86 K/uL (130-400); RDW Coefficient of Variation 20.7 % (11.5-14.5); RDW Standard Deviation 59.4 fL (36.4-46.3); Red Blood Count 3.79 M/uL (4.20-5.40); White Blood Count 6.58 K/ul (4.8-10.8)
[2022-11-17] MEDS: carvediloL 3.125 MG TAB PO SCH (07:43)
[2022-11-17] MEDS: busPIRone 5 MG TAB PO PRN (07:43)
[2022-11-17] MEDS: CALCIUM 600MG + VIT D 400 IU TAB PO SCH (07:44)
[2022-11-17] MEDS: ISOSORBIDE MONO EXTENDED REL 30 MG TABCR PO SCH (07:44)
[2022-11-17] MEDS: FLUTICASONE FUROATE 100MCG 14 PUFFS/INHALER INH SCH (07:44)
[2022-11-17] MEDS: BUMETANIDE 1 MG TAB PO SCH (07:44)
[2022-11-17] MEDS: UMECLIDINIUM/VILANTEROL 62.5/25MCG 7 PUFFS/INHALER INH SCH (07:44)
[2022-11-17] MEDS: metOLazone 2.5 MG TABLET PO SCH (07:44)
[2022-11-17 07:45] LABS: BUN Creatinine Ratio 50.4 (10-20); Calcium 10.1 mg/dl (8.6-10.3); Creatinine Clr Calc Pharmacy 37.7 ml/min; Est GFR (African American) 47.6 ml/min; Est GFR (Non-African American) 41.1 ml/min; Potassium 3.7 mmol/L (3.5-5.1)
[2022-11-17] MEDS: APIXABAN 2.5 MG TAB PO SCH (07:45)
[2022-11-17] MEDS: MULTIVITAMIN TAB PO SCH (07:45)
[2022-11-17] MEDS: CHOLECALCIFEROL 1,000 UNITS 25 MCG TAB PO SCH (07:45)
[2022-11-17] MEDS: POLYETHYLENE (MIRALAX) 17 GM PACK PO SCH (07:45)
[2022-11-17 07:46] LABS: INR 1.1 (0.9-1.1); Partial Thromboplastin Time 29.5 Seconds (21.0-31.0); Prothrombin Time 12.2 Seconds (9.0-12.0)
[2022-11-17] MEDS: NYSTATIN SUSP 500,000 U/5 ML UDC PO SCH (07:46)
[2022-11-17] MEDS: POTASSIUM CHLORIDE PWD 20 MEQ PACK PO SCH (07:46)
[2022-11-17] MEDS: ACETAMINOPHEN 500 MG TAB PO SCH (07:47)
[2022-11-17] MEDS: INSULIN ASPART PER UNIT CHARGE SC SCH (09:38)
--- NOTE | 2022-11-18 22:55 | Billing Data ---
Date of Service November 17, 2022 Coding Level of Care Code 11025 INP/OBS DISCH >30 MIN Time Spent (min) 50
== END 2022-11-17 09:55 | DRG 291 ==
LOC: ED 09:07 → 2S 11:10 → SUATTDRO 11:10 → 2S 12:20 → 3N 11-09 00:59